=== PATIENT | male | born 1985 | race African-American/Black ===

== ENCOUNTER 2020-01-22 11:32 | Observation (INO) | payer MEDICAID, SELFPAY ==
[2020-01-22 11:33] VITALS: BP 135/84; PULSE 90; RESP 16; TEMP 36.3; O2SAT 98; BMI 26.4
--- NOTE | 2020-01-22 12:01 | ED.DCSUM_ITS ---
History of Present Illness Chief Complaint: Substance Abuse Informant: Patient Narrative: Patient is a 34-year-old male who presents to the emergency department to request to detox. He states that he uses heroin and Suboxone. The Suboxone is prescribed to him. He has been using since he has been 16 off and on. He is gone through withdrawal before in the past. Never been to a detox center. He states that he has been using regularly over the past year. He also smokes marijuana. Denies any other illicit drug use. Denies any alcohol use. Does smoke cigarettes. He is complaining of some generalized body aches and low back pain. Otherwise denies any chest pain, shortness of breath. No abdominal pain or nausea/vomiting/diarrhea. Patient states he did have an overdose this summer which is his reasoning for wanting to get clean at this time. He denies any recent illness including any cough, cold, congestion. No fever/chills. Past Medical History - Allergies and Home Meds Allergies/Adverse Reactions: Allergies No Known Allergies Allergy (Verified 03/04/13 23:05) Primary Care Physician: NOT,DEFINED [NON-STAFF] - Prior records reviewed: Yes Past Medical History: - - Polysubstance abuse Smoking Status: Current every day smoker Alcohol: None Drugs: Heroin, Marijuana - Family History Maternal Family History: Reports: - - Patient notes a maternal family history of COPD with concurrent history of tobacco use. Paternal Family History: Reports: - - Patient does not know any of his paternal family history and notes that his mother is a lesbian and utilized a sperm donor. Review of Systems All systems negative except as indicated General: Denies: Chills, Fever, Sweats Eyes: Denies: Visual changes - bilaterally, Diplopia ENT: Denies: Rhinorrhea, Sore throat Cardiovascular: Denies: Chest pain, Palpitations Respiratory: Denies: Dyspnea, Cough, Dyspnea on exertion Gastrointestinal: Denies: Abdominal pain, Nausea, Vomiting, Diarrhea Genitourinary: Denies: Dysuria, Hematuria, Frequency Musculoskeletal: Denies: Back pain, Extremity Pain Skin: Denies: Rash, Wounds Neurological: Denies: Headache, Weakness, Numbness Physical Exam Vital Signs/Narrative: Vital Signs Temp Pulse Resp BP Pulse Ox 01/22/20 11:33 97.4 F L 90 16 135/84 H 98 Inital Vital Signs reviewed: Yes General: Well nourished, Well developed, No Acute Distress Head: Normocephalic, Atraumatic Eyes: Perrl, EOMI ENT: Moist mucous membranes, No rhinorrhea Neck: Supple, Nontender Cardiovascular: Regular rate, Regular rhythm, No murmurs Respiratory: No distress, CTA bilaterally, Chest nontender Abdomen: Soft, Nontender, Nondistended, Normal bowel sounds Back: Nontender, Normal Inspection Extremities: Nontender, No edema Skin: Normal color, No rash Neurological: Alert, Oriented x3, Cranial nerves II-XII grossly intact, Normal Strength, Normal Sensation Psychological: Normal affect, Normal Mood Diagnostic/Tx/Re-eval - Medical Decision Making Patient presents to the ED for request to detox from heroin. On arrival to the ED vital signs within normal limits. Physical exam is benign. Will check basic lab work. Lab work did not reveal any significant acute abnormality. Will bring him into the hospital for further evaluation and management. Patient otherwise has been stable throughout ED stay. He understands and is agreeable this plan. ED Disposition - Plan for ED Patient: Disposition: Acute Care Hospital [facility] Diagnosis: Substance abuse Referrals: NOT,DEFINED [NON-STAFF] -
[2020-01-22 12:34] LABS: Absolute Lymphocyte Count 1.42 X10^3/uL (0.83-4.51); Absolute Neutrophil Count 3.3 X10^3/uL (2.0-7.7); Basophil# 0.03 X10^3/uL; Basophil% 0.5 % (0-1); Eosinophil# 0.28 X10^3/uL; Hematocrit 41.4 % (40-54); Hemoglobin 14.1 g/dL (13.0-16.5); Lymphocyte # 1.42 X10^3/ul (4.0); Lymphocyte % 25.6 % (19-41); Mean Corp Hgb Conc 34.1 g/dL (32-36); Mean Corpuscular Hgb 29.5 pg (27.0-32.0); Mean Corpuscular Volume 86.6 fL (80-94); Mean Platelet Vol. 8.5 fl (6.2-12.0); Monocyte# 0.53 X10^3/uL; Monocyte% 9.5 % (0-10); NRBC Flagged by Analyzer 0 % (0-5); Neutrophil # 3.28 X10^3/uL (2.7-7.7); Neutrophil % 59.2 % (47-70); Platelet Count 286 K/mm3 (150-450); RBC Distribution Width CV 12.2 % (11.6-14.6); Red Blood Count 4.78 M/mm3 (4.6-6.2); White Blood Count 5.6 K/mm3 (4.4-11.0)
[2020-01-22 12:50] LABS: AST(SGOT) 14 U/L (15-37); Alanine Aminotransfer ALT/SGPT 26 U/L (16-61); Albumin, Serum 3.5 g/dL (3.2-5.0); Alkaline Phosphatase 96 U/L (45-117); Anion Gap 2 (5-15); BUN 7 mg/dL (7-18); BUN/Creat Ratio 7.8 RATIO (10-20); Calcium,Total 8.8 mg/dL (8.5-10.1); Chloride 103 mmol/L (98-107); EST Glomerular Filtration Rate 102 mL/min (>60); Est Glom Filt Rate - Afr Amer 124 mL/min (>60); Estimated Creatinine Clearance 115.65 ml/min; Globulin 3.6 g/dL (2.2-4.2); Glucose 93 mg/dL (74-106); Potassium 3.8 mmol/L (3.5-5.1); Protein, Total 7.1 g/dL (6.4-8.2); Sodium Level 138 mmol/L (136-145)
[2020-01-22 13:02] LABS: Alcohol, Blood (Medical)-Serum < 3.0 mg/dL
--- NOTE | 2020-01-22 13:23 | PCM.HP.STD ---
Problem List (1) Opiate withdrawal Status: Acute (2) Heroin abuse Status: Chronic (3) Cannabis abuse Status: Chronic (4) Tobacco use Status: Chronic (5) IV drug user Status: Chronic History of Present Illness Date of Admission: 01/22/20 Chief Complaint: Heroin, cannabis, suboxone abuse, active withdrawal The patient is a 34 y/o M w/ PMHx: Tobacco use, Polysubstance abuse with Heroin (using since 16), Cannabis currently on Rx Suboxone noting usage of daily cannabis with last usage the day prior, smoked as well as Suboxone daily normally supposed to be on 60 mg daily however he has been weaning and currently only on 8 mg daily in addition to heroin intravenously injected with usually 1 g daily with last usage the day prior to proximally 9 AM who presents to the [facility] ED on 01/22/20 w/ noted opiate withdrawal onset starting 01/22/20 with abdominal pain/cramping, generalized body aches and pains, rhinorrhea, piloerection, fatigue, restless leg, sweating, yawning. Patient interested in attaining clean status. He notes that he lives with his girlfriend who has no substance abuse issues who encouraged him and help set this acute detox up. He notes that on Tuesday he will either be incarcerated or will need to go to substance abuse residential treatment following acute. Patient notes interest in being clean. Work-up in the ED included T 97.4, heart rate 90, BP 135/84, respiratory rate 16, 98% on room air, CBC with WBC 5.6, hemoglobin 14.1, platelet 226 with no market shift, CMP not marked appearing aside carbon oxide 33, AST 14, ethyl alcohol less than 3, urine drug screen pending per ED upon requested evaluation of patient. Past Medical History Past Medical History (Chronic Problems): Chronic Problems Heroin abuse (Chronic) Cannabis abuse (Chronic) Tobacco use (Chronic) IV drug user (Chronic) Allergies No Known Allergies Allergy (Verified 03/04/13 23:05) Home Medications: Ambulatory Orders Medication Instructions Recorded Abilify 01/22/20 Surgical History: - - Patient notes surgical intervention on his mandible secondary to fracture with his jaw wired shut. Psychiatric History: No pertinent psych hx - Patient denies any psychiatric history however in home medication previously Abilify as noted, awaiting clarification. Lives: Spouse/ Significant Other - Patient lives with his girlfriend and 2 children. He denies her having any substance abuse history or current usage. Smoking Status: Current every day smoker - Patient notes 1.5 to 2 pack/day cigarette tobacco use since he was 12 years old. Tobacco Use: Cigarettes Alcohol: None Drugs: Heroin - Approximately 1 g IV daily., Marijuana - Smoked cannabis daily., - - Prescribed Suboxone normally 60 mg daily however has decreased it to 8 mg daily in effort to withdraw self off regimen. - *Family History Maternal History Items: - - Patient notes a maternal family history of COPD with concurrent history of tobacco use. Paternal History Items: - - Patient does not know any of his paternal family history and notes that his mother is a lesbian and utilized a sperm donor. Review of Systems Constitutional: Reports: Anorexia, Chills, Malaise, Weakness, Fatigue. Denies: Fever, Weight Change HEENT: Reports: Post Nasal Drip. Denies: Head Aches, Sinus Drainage Cardiovascular: Denies: Chest Pain, Palpitations Respiratory: Denies: Cough, Shortness of breath at rest, Sputum production Gastrointestinal: Reports: Abdominal Pain, Diarrhea, Nausea. Denies: Vomiting Genitourinary: Denies: Dysuria Musculoskeletal: Reports: Back Pain, Joint Pain, Muscle pain. Denies: Joint Tenderness Skin: Reports: Skin Changes. Denies: Rash, Wounds Neurological: Denies: Numbness, Tingling, Focal weakness Psychiatric: Denies: Anxiety, Depression, Homicidal Ideations, Suicidal Ideations Hematologic/ Lymphatic: Denies: Easy Bruising, Easy Bleeding VTE Information - Inpt Only VTE Present on Admission: No VTE Mechan Device Prophylaxis: None VTE Pharm Prophylaxis ordered?: No Reason prophylaxis not ordered:: Treatment Not Indicated Patient Problems: Active and Suspected Problems Substance abuse (Acute) Opiate withdrawal (Acute) Subjective: Patient seated upright in the ED bed, mildly agitated, restless, noted rhinorrhea evident. Objective: Physical Examination: General: awake, alert, oriented x 3 and cooperative, seated upright in the ED bed, mildly agitated, restless, evident rhinorrhea. Skin: normal color, turgor, no icterus, cyanosis. HEENT: AT/NC, EOMI, PERRLA, MMM, rhinorrhea evident, no carotid bruits or JVD noted. Lungs: CTA bilaterally, moderate effort, moderate decrease BL bases, no rales, ronchi or wheezing. Heart: Mildly tachycardic with regular rhythm; no gallop, rub audible. Abdomen: soft, mild generalized discomfort with palpation, ND, hyperactive BS, positive mild HM. Extremities: no cyanosis, clubbing, or edema. Neurological: patient awake, alert, oriented x 3; cognitive function intact; pupils equally reactive to light and accomodation; cranial nerves II-XII grossly normal, moving all 4 extremities, no focal deficits, strength mildly to moderately global decrease secondary to acute presentation, restless, agitated. Psychiatric: affect appears agitated, restless, no acute evidence of depressive or anxiety feelings. - Physical Exam Vitals/I&O's: Vital Signs Temp Pulse Resp BP Pulse Ox 97.4 F L 90 16 135/84 H 98 01/22/20 11:33 01/22/20 11:33 01/22/20 11:33 01/22/20 11:33 01/22/20 11:33 Oxygen Delivery Method Room Air Weight: 179 lb 3.773 oz Body Mass Index (BMI) 26.4 Laboratory Results 01/22/20 12:19: WBC 5.6, RBC 4.78, Hgb 14.1, Hct 41.4, MCV 86.6, MCH 29.5, MCHC 34.1, RDW Std Deviation 39.0, RDW Coeff of Corinne 12.2, Plt Count 286, MPV 8.5, Immature Gran % (Auto) 0.200, Neut % (Auto) 59.2, Lymph % (Auto) 25.6, Hampton % (Auto) 9.5, Eos % (Auto) 5.0, Baso % (Auto) 0.5, Absolute Neuts (auto) 3.3, Absolute Lymphs (auto) 1.42, Nucleated RBC % 0 01/22/20 12:19: Sodium 138, Potassium 3.8, Chloride 103, Carbon Dioxide 33.0 H, Anion Gap 2 L, BUN 7, Creatinine 0.90, Estim Creat Clear Calc 115.65, Est GFR (MDRD) Af Amer 124, Est GFR (MDRD) Non-Af 102, BUN/Creatinine Ratio 7.8 L, Glucose 93, Calcium 8.8, Total Bilirubin 0.40, AST 14 L, ALT 26, Alkaline Phosphatase 96, Total Protein 7.1, Albumin 3.5, Globulin 3.6, Albumin/Globulin Ratio 1.0 01/22/20 12:19: Ethyl Alcohol < 3.0 Assessment/Plan All Active Problems Substance abuse (Acute) Opiate withdrawal (Acute) The patient is a 34 y/o M w/ PMHx: Tobacco use, Polysubstance abuse who presents to the [facility] ED on 01/22/20 w/ noted opiate withdrawal onset. 1. Acute Opiate Withdrawal: Will admit to [facility], routine labs including CBC, CMP obtained in the ED, UDS pending, will initiate and continue on tapering course of Subutex, as needed Librium, Sinemet, Catapres, Bentyl, Vistaril, IV fluids, IV antiemetics, Tylenol as needed for pain. Will consult case management for assistance substance abuse specifically with transition to next level of rehabilitation care. 2. Polysubstance Abuse, IVDA: Given patient ongoing IV drug abuse amenable to testing HIV and hepatitis panel. Discussed with patient that if he has positive with hepatitis C he would require to be clean, sober x 6 months, documented attendance NA or AA meetings, counseling and ongoing negative drug screens including cannabis be Encouraged PCP establishment and follow-up. 3. Tobacco Abuse: Encouraged cessation, inpatient consultation per RT, NR if desired. 4. DVT prophylaxis: Low risk, encourage ambulation. Inpatient E&M: 53605 Init Hosp L3
--- NOTE | 2020-01-22 13:29 | NURSING ---
DR BURKETT FOR DR BROWN
--- NOTE | 2020-01-22 13:56 | CM.ED ---
SOCIAL WORK Reason for Consult: Substance Abuse, requesting detox from opiates Patient being admitted to [facility]. Jeter at [facility] updated on admission. Melany Henry, RADIO FREQUENCY DESIGN ENGINEER, PSYCHOLOGICAL STRESS EVALUATOR
--- NOTE | 2020-01-22 14:30 | NURSING ---
MED SURG WHITE DETOX, OPIATE WITHDRAWAL
[2020-01-22 15:55] VITALS: BP 122/79; PULSE 66; RESP 18; TEMP 36.7; O2SAT 99
[2020-01-22 16:02] VITALS: BMI 25.9
[2020-01-22 16:08] VITALS: BMI 26.0
[2020-01-22 17:04] LABS: HIV - WCH Non-Reactive (Nonreactive)
[2020-01-22] MEDS: Lactated Ringers 1,000 ML 125 ML IV (17:37)
[2020-01-22 18:00] VITALS: BP 114/72; PULSE 75; RESP 16; TEMP 36.6; O2SAT 96
[2020-01-22 22:00] VITALS: BP 110/67; PULSE 68; RESP 18; TEMP 36.7; O2SAT 97
[2020-01-22 22:02] LABS: Amphetamine Urine VISTA POSITIVE (<1000 ng/mL); Barbiturate Urine VISTA NEGATIVE (< 200 ng/mL); Benzodiazepine Urine VISTA NEGATIVE (< 200 ng/mL); Cocaine Urine VISTA NEGATIVE (< 300 ng/mL); Ecstacy Urine VISTA NEGATIVE (< 500 ng/mL); Methadone Urine VISTA NEGATIVE (< 300 ng/mL); PCP Urine VISTA NEGATIVE (< 25 ng/mL); THC Urine VISTA POSITIVE (< 50 ng/mL); Vista UDS pH Range 7
[2020-01-23] VITALS (8 sets, daily range): BP systolic 114–141; BP diastolic 62–90; PULSE 65–82; RESP 16–18; TEMP 36.7–37.5; O2SAT 95–99
[2020-01-23] MEDS: Buprenorphine HCl 2 MG TAB.SUBL SL ×4 (00:49→22:54)
[2020-01-23] MEDS: cloNIDine HCl 0.1 MG Tablet PO (05:00)
[2020-01-23] MEDS: Mag Hydrox/Al Hydrox/Simeth 30 ML UDC PO (05:00)
[2020-01-23] MEDS: Methocarbamol 750 MG Tablet 1500 MG PO (05:06)
[2020-01-23] MEDS: 0.9% Saline Lock 10 ML Syringe IV (08:58)
--- NOTE | 2020-01-23 12:41 | PN_ITS ---
Patient Problems: Active and Suspected Problems Substance abuse (Acute) Opiate withdrawal (Acute) Subjective: Pt states that he is having intermittent sweats and chills but is otherwise feeling okay. - Physical Exam Vitals/I&O's: Vital Signs Temp Pulse Resp BP Pulse Ox 99.5 F H 65 18 114/76 97 01/23/20 09:00 01/23/20 09:00 01/23/20 09:00 01/23/20 09:00 01/23/20 09:00 Oxygen Delivery Method Room Air Weight: 79.8 kg Body Mass Index (BMI) 25.9 Intake and Output for Last 24 Hours 01/21/20 01/22/20 01/23/20 23:59 23:59 23:59 Intake Total 240 / 240 2390 / 2390 Balance 240 / 240 2390 / 2390 General: Alert, Oriented x3, Cooperative, No apparent distress, Well developed, Well nourished HEENT: Atraumatic, Normocephalic Oral: Moist Mucosa, No Gingival or Mucosal Lesions/ Ulcerations Lungs: Clear to auscultation, Normal air movement, No rhonchi, No wheeze, No rales Cardiovascular: Regular rate, Regular Rhythm, Normal S1, Normal S2, No murmurs, No Ectopic Activity, No rub noted, No Gallop Abdomen: Bowel Sounds Present, Soft, Non Tender, Non-Distended, No Hepato- splenomegaly Extremities: No clubbing, No cyanosis, No edema, Capillary Refill Less than 3 Seconds, Peripheral Pulses Normal Neurological: Cranial nerves II-XII grossly intact, Neuro grossly intact Psych/Mental Status: Normal Affect, Appropriate, Alert and oriented to time, place, person, mood and affect Laboratory Results 01/22/20 12:19: Sodium 138, Potassium 3.8, Chloride 103, Carbon Dioxide 33.0 H, Anion Gap 2 L, BUN 7, Creatinine 0.90, Estim Creat Clear Calc 115.65, Est GFR (MDRD) Af Amer 124, Est GFR (MDRD) Non-Af 102, BUN/Creatinine Ratio 7.8 L, Glucose 93, Calcium 8.8, Total Bilirubin 0.40, AST 14 L, ALT 26, Alkaline Phosphatase 96, Total Protein 7.1, Albumin 3.5, Globulin 3.6, Albumin/Globulin Ratio 1.0 01/22/20 12:19: Ethyl Alcohol < 3.0 01/22/20 12:19: Hepatitis A IgM Ab Pending, Hepatitis A Ab Total Pending, Hep Bs Antigen Pending, Hep B Core Total Ab Pending, Hep B Core IgM Ab Pending 01/22/20 12:19: HIV 1&2 Antibody Non-Reactive 01/22/20 21:30: Urine Opiates Screen POSITIVE H, Urine Methadone Screen NEGATIVE, Ur Barbiturates Screen NEGATIVE, Ur Phencyclidine Scrn NEGATIVE, Ur Amphetamines Screen POSITIVE H, U Methamphetamin-MDMA NEGATIVE, U Benzodiazepines Scrn NEGATIVE, Urine Cocaine Screen NEGATIVE, U Cannabinoids Screen POSITIVE H, Ur Drug Screen Comment Current Medications Acetaminophen (Tylenol) 500 mg PO Q4H PRN PRN PRN Reason: Temp > 100.4 F Al Hydroxide/Mg Hydroxide (Mylanta Ii) 30 ml PO Q6H PRN PRN PRN Reason: dyspesia Last Admin: 01/23/20 05:00 Dose: 30 ml Documented by: Albuterol Sulfate (Ventolin Aerosols) 2.5 mg INHALATION Q2H PRN PRN PRN Reason: Dyspnea, wheezing Bisacodyl (Dulcolax) 10 mg RECTAL DAILY PRN PRN Reason: Constipation Buprenorphine HCl (Buprenorphine Hcl) 4 mg SL Q8H ETHEL; Taper Stop: 01/25/20 23:44 Last Admin: 01/23/20 07:35 Dose: 4 mg Documented by: Clonidine (Catapres) 0.1 mg PO Q8H PRN PRN PRN Reason: RESTLESSNESS Last Admin: 01/23/20 05:00 Dose: 0.1 mg Documented by: Dicyclomine HCl (Bentyl) 20 mg PO Q6H PRN PRN PRN Reason: Abdominal Discomfort Gabapentin (Neurontin) 300 mg PO Q8H PRN PRN PRN Reason: moderate to severe anxiety Hydroxyzine Pamoate (Vistaril Pamoate Capsule) 50 mg PO Q6H PRN PRN PRN Reason: mild anxiety Ibuprofen (Motrin) 600 mg PO Q8H PRN PRN PRN Reason: Pain Score 1-10/10 Loperamide HCl (Imodium) 2 mg PO Q4H PRN PRN PRN Reason: LOOSE STOOLS Methocarbamol (Methocarbamol) 1,500 mg PO Q6H PRN PRN PRN Reason: MUSCLE SPASM Last Admin: 01/23/20 05:06 Dose: 1,500 mg Documented by: Nicotine (Nicoderm Cq (Pbkc)) 21 mg TRANSDERM. DAILY ETHEL Last Admin: 01/23/20 08:59 Dose: 21 mg Documented by: Ondansetron HCl (Zofran) 8 mg PO Q8H PRN PRN PRN Reason: NAUSEA Senna (Senokot) 2 tablet PO QHS PRN PRN Reason: Constipation Sodium Chloride () 10 - 40 ml IV UD PRN PRN Reason: SALINE FLUSH Last Admin: 01/23/20 08:58 Dose: 10 ml Documented by: Trazodone HCl (Desyrel) 100 mg PO QHS PRN PRN PRN Reason: INSOMNIA Medical Necessity - Tobacco Use Smoking Status: Current every day smoker Tobacco Use: Cigarettes Assessment/Plan All Active Problems Substance abuse (Acute) Opiate withdrawal (Acute) Acute Opiate Withdrawal -appears stable -on suboxone taper -continue PRN supportive meds -180 following H/O Polysubstance Abuse -THC/Opiates/Meth -HIV is neg -Hepatitis studies are pending -LFT are WNL Tobacco Abuse -recommend cessation -Patch if desires DVT prophylaxis -Low risk -ambulation protocol Code status -Full Inpatient E&M: 45845 Subs Hosp L2
--- NOTE | 2020-01-23 13:13 | ADDICTION ---
This lyric writer met with patient in his room to conduct ASAM, MSE and DUDIT assessments and d/c planning. Patient was alert and oriented x4 and participated actively. Patient plans to engage with [facility], per his contracts officer and continuous improvement consultant, upon completion of medical withdrawal management. He reports that he has engaged with [facility] and is awaiting official approval from his continuous improvement consultant to enter into their residential program. He appears appropriate for the 4.0 LOC AEB Dimension1: Severe
--- NOTE | 2020-01-23 15:16 | CHAPLAIN ---
Type of Pastoral Visit _x__ Initial Visit ___ Follow-up Visit ___ On-call Visit ___ General Patient Visit ___ Spiritual Assessment ___ Family Conference ___ Bereavement ___ Rapid Response ___ Code Blue ___ Other (describe below) Pastoral Care Referral From _x__ Patient ___ Family ___ Nurse ___ Physician ___ Disaster Recovery Manager ___ Prospecting Driller ___ Other (describe below) Sacrament/Intervention _x__ Active listening ___ Anointing ___ Pentecostal ___ Bereavement ___ Communion _x__ Savi exploration ___ _x__ Life review _x__ Prayer ___ Reconciliation ___ Sacrament of Sick _x__ Supportive presence ___ Wedding ___ Other (describe below) Pastoral Comments patient is alert and sitting in chair watching TV; pt is very talkative and open to discuss his life interests, his history, and his hopes for recovery; pt has limited support but lists his SO and a grandmother; pt has recently connected with mosque members and diesel truck driver who are helping him get into inpatient facility [facility]; pt [facility] other [facility]; pt states he is willing to go through treatment program but has some anxiety about the rules and isolation there; pt admits that he has potential for better life and encouragement given by this director day care center; pt is open to spiritual care and prayer; pt is open to future visits
[2020-01-23] MEDS: hydrOXYzine PAM 25 MG Capsule 50 MG PO (18:05)
[2020-01-24 05:57] VITALS: BP 126/87; PULSE 66; RESP 16; TEMP 37; O2SAT 96
[2020-01-24 06:08] LABS: HEPATITIS B SURFACE AG Negative (Negative); Hepatitis A AB, Total Negative (Negative); Hepatitis A IgM Antibody Negative (Negative); Hepatitis B Core AB IgM Negative (Negative); Hepatitis B Core Ab Total Negative (Negative); Hepatitis C Ab <0.1 s/co ratio (0.0-0.9)
[2020-01-24 07:38] VITALS: BP 121/86; PULSE 71; RESP 14; TEMP 37.3; O2SAT 98
[2020-01-24] MEDS: Buprenorphine HCl 2 MG TAB.SUBL SL ×2 (07:41→15:30)
[2020-01-24 08:25] LABS: Hep B Surface Antibodies Reactive (.)
[2020-01-24 11:46] VITALS: BP 136/85; PULSE 85; RESP 16; TEMP 36.9; O2SAT 99
[2020-01-24] MEDS: cloNIDine HCl 0.1 MG Tablet PO (11:49)
--- NOTE | 2020-01-24 12:11 | PN_ITS ---
Patient Problems: Active and Suspected Problems Substance abuse (Acute) Opiate withdrawal (Acute) Subjective: Feeling better. Still occasional chills. No pain. More talkative today. Vitals/I&O's: Vital Signs Temp Pulse Resp BP Pulse Ox 98.5 F 85 16 136/85 H 99 01/24/20 11:46 01/24/20 11:46 01/24/20 11:46 01/24/20 11:46 01/24/20 11:46 Oxygen Delivery Method Room Air Weight: 79.8 kg Body Mass Index (BMI) 25.9 Intake and Output for Last 24 Hours 01/22/20 01/23/20 01/24/20 23:59 23:59 23:59 Intake Total 240 / 240 3450 / 3450 800 / 800 Balance 240 / 240 3450 / 3450 800 / 800 General: Alert, Oriented x3, Cooperative, No apparent distress, Well developed, Well nourished, - - AAM sitting up in a chair watching TV Lungs: Clear to auscultation, Normal air movement, No rhonchi, No wheeze, No rales Cardiovascular: Regular rate, Regular Rhythm, Normal S1, Normal S2, No murmurs, No Ectopic Activity, No rub noted, No Gallop Abdomen: Bowel Sounds Present, Soft, Non Tender, Non-Distended Extremities: No clubbing, No cyanosis, No edema, Capillary Refill Less than 3 Seconds, Peripheral Pulses Normal Psych/Mental Status: Normal Affect, Appropriate, Alert and oriented to time, place, person, mood and affect Laboratory Results 01/22/20 12:19: Hepatitis A IgM Ab Negative, Hepatitis A Ab Total Negative, Hep Bs Antigen Negative, Hep B Core Total Ab Negative, Hep B Core IgM Ab Negative, Hepatitis C Ab Confirm <0.1, Hep C Confirm Com 1 Comment Current Medications Acetaminophen (Tylenol) 500 mg PO Q4H PRN PRN PRN Reason: Temp > 100.4 F Al Hydroxide/Mg Hydroxide (Mylanta Ii) 30 ml PO Q6H PRN PRN PRN Reason: dyspesia Last Admin: 01/23/20 05:00 Dose: 30 ml Documented by: Albuterol Sulfate (Ventolin Aerosols) 2.5 mg INHALATION Q2H PRN PRN PRN Reason: Dyspnea, wheezing Bisacodyl (Dulcolax) 10 mg RECTAL DAILY PRN PRN Reason: Constipation Buprenorphine HCl (Buprenorphine Hcl) 2 mg SL Q8H ETHEL; Taper Stop: 01/25/20 23:44 Last Admin: 01/24/20 07:41 Dose: 2 mg Documented by: Clonidine (Catapres) 0.1 mg PO Q8H PRN PRN PRN Reason: RESTLESSNESS Last Admin: 01/24/20 11:49 Dose: 0.1 mg Documented by: Dicyclomine HCl (Bentyl) 20 mg PO Q6H PRN PRN PRN Reason: Abdominal Discomfort Gabapentin (Neurontin) 300 mg PO Q8H PRN PRN PRN Reason: moderate to severe anxiety Hydroxyzine Pamoate (Vistaril Pamoate Capsule) 50 mg PO Q6H PRN PRN PRN Reason: mild anxiety Last Admin: 01/23/20 18:05 Dose: 50 mg Documented by: Ibuprofen (Motrin) 600 mg PO Q8H PRN PRN PRN Reason: Pain Score 1-10/10 Loperamide HCl (Imodium) 2 mg PO Q4H PRN PRN PRN Reason: LOOSE STOOLS Methocarbamol (Methocarbamol) 1,500 mg PO Q6H PRN PRN PRN Reason: MUSCLE SPASM Last Admin: 01/23/20 05:06 Dose: 1,500 mg Documented by: Nicotine (Nicoderm Cq (Pbkc)) 21 mg TRANSDERM. DAILY ETHEL Last Admin: 01/24/20 11:49 Dose: 21 mg Documented by: Ondansetron HCl (Zofran) 8 mg PO Q8H PRN PRN PRN Reason: NAUSEA Senna (Senokot) 2 tablet PO QHS PRN PRN Reason: Constipation Sodium Chloride () 10 - 40 ml IV UD PRN PRN Reason: SALINE FLUSH Last Admin: 01/23/20 08:58 Dose: 10 ml Documented by: Trazodone HCl (Desyrel) 100 mg PO QHS PRN PRN PRN Reason: INSOMNIA STROKE Vital Signs/Narrative: Vital Signs Temp Pulse Resp BP Pulse Ox 01/24/20 11:46 98.5 F 85 16 136/85 H 99 Medical Necessity - Tobacco Use Smoking Status: Current every day smoker Tobacco Use: Cigarettes Assessment/Plan All Active Problems Substance abuse (Acute) Opiate withdrawal (Acute) Acute Opiate Withdrawal -appears stable -on suboxone taper-> completes tomorrow -continue PRN supportive meds -plan is to f/u with courts and try to get into [facility] if the nuclear spectroscopist on Tuesday approves H/O Polysubstance Abuse -THC/Opiates/Meth -HIV is neg -Hepatitis studies are all neg -would recommend Hep B vaccination Tobacco Abuse -recommend cessation -Patch available DVT prophylaxis -Low risk -ambulation protocol Code status -Full Dispo -D/C tomorrow Inpatient E&M: 04006 Subs Hosp L2
--- NOTE | 2020-01-24 14:44 | CHAPLAIN ---
Type of Pastoral Visit ___ Initial Visit _x__ Follow-up Visit ___ On-call Visit ___ General Patient Visit ___ Spiritual Assessment ___ Family Conference ___ Bereavement ___ Rapid Response ___ Code Blue ___ Other (describe below) Pastoral Care Referral From _x__ Patient ___ Family ___ Nurse ___ Physician ___ Acoustical Engineer ___ Forestry Engineer ___ Other (describe below) Sacrament/Intervention _x__ Active listening ___ Anointing ___ Yarsanism ___ Bereavement ___ Communion _x__ Savi exploration ___ _x__ Life review _x__ Prayer ___ Reconciliation ___ Sacrament of Sick _x__ Supportive presence ___ Wedding ___ Other (describe below) Pastoral Comments patient states I'm glad you came back. I was wondering if you would to this marketing information coordinator; pt is talkative and states that he needs something to occupy his mind/time; pt gives some life review; discussion also about future plans and dreams; pt states he is excited to be going home and hopefully approved for [facility] by full stack python developer for next week; pt welcomes prayer and follow up support
[2020-01-24 15:28] VITALS: BP 133/91; PULSE 82; RESP 18; TEMP 37.2; O2SAT 99
[2020-01-24 20:51] VITALS: BP 117/69; PULSE 70; RESP 16; TEMP 37.1; O2SAT 96
[2020-01-24] MEDS: traZODone 100 MG Tablet PO (22:15)
[2020-01-25 00:09] VITALS: BP 122/64; PULSE 96; RESP 10; TEMP 37.1; O2SAT 96
[2020-01-25] MEDS: Buprenorphine HCl 2 MG TAB.SUBL SL ×2 (00:13→10:44)
[2020-01-25] MEDS: Ondansetron 8 MG Tablet PO (03:05)
[2020-01-25 06:03] VITALS: BP 117/61; PULSE 80; RESP 12; TEMP 36.9; O2SAT 96
--- NOTE | 2020-01-25 07:59 | DCINST_ITS ---
- Discharge Diagnoses Current Active Problems: Current Active and Chronic Problems Substance abuse (Acute) Opiate withdrawal (Acute) Heroin abuse (Chronic) Cannabis abuse (Chronic) Tobacco use (Chronic) IV drug user (Chronic) You will use the following diet at home:: No restrictions Your food should be the consistency of: Regular Your liquids should be the consistency of: Regular/Thin Discharge Activity: Return to Normal Activity, No Restrictions Additional Instructions: would recommend that the Hepatitis B vaccine be obtained Allergies/Adverse Reactions: Allergies No Known Allergies Allergy (Verified 03/04/13 23:05) Medications to take at Discharge Abilify 10 mg PO QHS 01/22/20 Primary Care Physician: NOT,DEFINED [NON-STAFF] - Please follow up with your Primary Care Physician in: f/u as needed Test Results: Test results from this visit will be discussed in further detail at your follow- up appointment, if applicable. Proposed Discharge Date: 01/25/20
--- NOTE | 2020-01-25 08:00 | DS.PCM_ITS ---
Discharge Date and Diagnosis - Problem List Patient Problems: Active and Suspected Problems Substance abuse (Acute) Opiate withdrawal (Acute) Date of Admission: 01/22/20 Date of Discharge: 01/25/20 - Primary Discharge Diagnosis Acute Problems: Active Problems Substance abuse (Acute) Opiate withdrawal (Acute) - Secondary Discharge Diagnosis Chronic Problems: Chronic Problems Heroin abuse (Chronic) Cannabis abuse (Chronic) Tobacco use (Chronic) IV drug user (Chronic) Hospital Course and Treatment Imaging Results: NONE ADM Operations: None Procedures: None Summary of Care Provided: Mr. Forbes is a 34 y/o M w/ PMHx: Tobacco use, Polysubstance abuse with Heroin (using since 16), and Cannabis use. He is using heroin intravenously with usually 1 g daily with last usage the day prior to proximally 9 AM. He presented to the ED on with noted opiate withdrawal onset starting 01/22/20 with symptoms including abdominal pain/cramping, generalized body aches and pains, rhinorrhea, piloerection, fatigue, restless leg, sweating, yawning. He expressed interested in attaining clean status. He noted that he lives with his girlfriend who has no substance abuse issues who had encouraged him and helped set this acute detox up. He noted that on Saturday 01/27 he will either be incarcerated or will need to go to substance abuse residential treatment following acute detox and has a court appearance pending on that day to decide how things will proceed. He was admitted and placed on a Suboxone taper with suppportive care an medications for sx of withdrawal. He did very well. HIV and Hepatitis status was assessed and he was neg for all of the above. I did recommend that he be seen for the Hepatitis B vaccine series and he voiced understanding. He will be discharged and pursue further treatment in accordance with the recommendations of the court. Patient Problems: Active and Suspected Problems Substance abuse (Acute) Opiate withdrawal (Acute) - Physical Exam Vitals/I&O's: Vital Signs Temp Pulse Resp BP Pulse Ox 98.4 F 80 12 117/61 96 01/25/20 06:03 01/25/20 06:03 01/25/20 06:03 01/25/20 06:03 01/25/20 06:03 Oxygen Delivery Method Room Air Weight: 79.8 kg Body Mass Index (BMI) 25.9 Intake and Output for Last 24 Hours 01/23/20 01/24/20 01/25/20 23:59 23:59 23:59 Intake Total 3450 / 3450 830 / 830 0 / 0 Output Total 0 / 0 Balance 3450 / 3450 830 / 830 0 / 0 General: Alert, Oriented x3, Cooperative, No apparent distress, Well developed, Well nourished Oral: Moist Mucosa, No Gingival or Mucosal Lesions/ Ulcerations Lungs: Clear to auscultation, Normal air movement, No rhonchi, No wheeze, No rales Cardiovascular: Regular rate, Regular Rhythm, Normal S1, Normal S2, No murmurs, No Ectopic Activity Abdomen: Bowel Sounds Present, Soft, Non Tender, Non-Distended Extremities: No clubbing, No cyanosis, No edema, Capillary Refill Less than 3 Seconds, Peripheral Pulses Normal Neurological: Cranial nerves II-XII grossly intact, Neuro grossly intact Psych/Mental Status: Normal Affect, Appropriate, - - very pleasant and cooperative, Alert and oriented to time, place, person, mood and affect Laboratory Results 01/22/20 12:19: Hepatitis A IgM Ab Negative, Hepatitis A Ab Total Negative, Hep Bs Antigen Negative, Hep B Core Total Ab Negative, Hep B Core IgM Ab Negative, Hepatitis C Ab Confirm <0.1, Hep C Confirm Com 1 Comment Current Medications Acetaminophen (Tylenol) 500 mg PO Q4H PRN PRN PRN Reason: Temp > 100.4 F Al Hydroxide/Mg Hydroxide (Mylanta Ii) 30 ml PO Q6H PRN PRN PRN Reason: dyspesia Last Admin: 01/23/20 05:00 Dose: 30 ml Documented by: Albuterol Sulfate (Ventolin Aerosols) 2.5 mg INHALATION Q2H PRN PRN PRN Reason: Dyspnea, wheezing Bisacodyl (Dulcolax) 10 mg RECTAL DAILY PRN PRN Reason: Constipation Buprenorphine HCl (Buprenorphine Hcl) 2 mg SL Q12H [facility]; Taper Stop: 01/25/20 23:44 Last Admin: 01/25/20 00:13 Dose: 2 mg Documented by: Clonidine (Catapres) 0.1 mg PO Q8H PRN PRN PRN Reason: RESTLESSNESS Last Admin: 01/24/20 11:49 Dose: 0.1 mg Documented by: Dicyclomine HCl (Bentyl) 20 mg PO Q6H PRN PRN PRN Reason: Abdominal Discomfort Gabapentin (Neurontin) 300 mg PO Q8H PRN PRN PRN Reason: moderate to severe anxiety Hydroxyzine Pamoate (Vistaril Pamoate Capsule) 50 mg PO Q6H PRN PRN PRN Reason: mild anxiety Last Admin: 01/23/20 18:05 Dose: 50 mg Documented by: Ibuprofen (Motrin) 600 mg PO Q8H PRN PRN PRN Reason: Pain Score 1-10/10 Loperamide HCl (Imodium) 2 mg PO Q4H PRN PRN PRN Reason: LOOSE STOOLS Methocarbamol (Methocarbamol) 1,500 mg PO Q6H PRN PRN PRN Reason: MUSCLE SPASM Last Admin: 01/23/20 05:06 Dose: 1,500 mg Documented by: Nicotine (Nicoderm Cq (Pbkc)) 21 mg TRANSDERM. DAILY ETHEL Last Admin: 01/24/20 11:49 Dose: 21 mg Documented by: Ondansetron HCl (Zofran) 8 mg PO Q8H PRN PRN PRN Reason: NAUSEA Last Admin: 01/25/20 03:05 Dose: 8 mg Documented by: Senna (Senokot) 2 tablet PO QHS PRN PRN Reason: Constipation Sodium Chloride () 10 - 40 ml IV UD PRN PRN Reason: SALINE FLUSH Last Admin: 01/23/20 08:58 Dose: 10 ml Documented by: Trazodone HCl (Desyrel) 100 mg PO QHS PRN PRN PRN Reason: INSOMNIA Last Admin: 01/24/20 22:15 Dose: 100 mg Documented by: Discharge Activity: Return to Normal Activity, No Restrictions Home Medications: Medications to take at Discharge Abilify 10 mg PO QHS 01/22/20 Primary Care Physician: NOT,DEFINED [NON-STAFF] - Please follow up with your Primary Care Physician in: f/u as needed Medical Necessity - Tobacco Use Smoking Status: Current every day smoker Tobacco Use: Cigarettes Meaningful Use Info Meaningful Use Diagnoses (Choose all that apply): None applicable
[2020-01-25 09:21] VITALS: BP 118/69; PULSE 113; RESP 18; TEMP 36.8; O2SAT 98
--- NOTE | 2020-01-25 10:06 | PHA.DC.MR ---
Pharmacy Service has performed discharge medication reconciliation for this patient. The patient's discharge medication list was reviewed for discrepancies and discrepancies were resolved. Home Medications Abilify 10 mg PO QHS 01/22/20
== END 2020-01-25 10:49 | disposition home or self-care (01) ==
LOC: ED 13:41 → PCU 01-23 06:47
PROVIDERS: Admitting Provider Family Medicine; Emergency Provider Emergency Medicine; Visit Provider Internal Medicine
DX: F11.23 Opioid dependence with withdrawal (principal); F17.210 Nicotine dependence, cigarettes, uncomplicated; F12.10 Cannabis abuse, uncomplicated; F15.10 Other stimulant abuse, uncomplicated
CPT/HCPCS: 80053; 80307; 80320; 85025; 86703; 86704; 86705; 86706; 86708; 86709; 86803; 87340; 99281; H0012; J7120; A4216; G0480

== ENCOUNTER 2022-04-21 17:02 | Inpatient (IN) | payer MEDICAID, SELFPAY ==
[2022-04-21 17:04] VITALS: BP 142/98; PULSE 108; RESP 18; TEMP 36.1; O2SAT 96; BMI 28.0
[2022-04-21 17:58] LABS: Absolute Lymphocyte Count 1.49 X10^3/uL (0.83-4.51); Absolute Neutrophil Count 4.4 X10^3/uL (2.0-7.7); Basophil# 0.03 X10^3/uL; Basophil% 0.4 % (0-1); Eosinophil# 0.27 X10^3/uL; Hematocrit 42.6 % (40-54); Hemoglobin 13.8 g/dL (13.0-16.5); Lymphocyte # 1.49 X10^3/ul (0.83-4.51); Lymphocyte % 22.2 % (19-41); Mean Corp Hgb Conc 32.4 g/dL (32-36); Mean Corpuscular Hgb 27.9 pg (27.0-32.0); Mean Corpuscular Volume 86.2 fL (80-94); Mean Platelet Vol. 8.6 fl (6.2-12.0); Monocyte# 0.54 X10^3/uL; NRBC Flagged by Analyzer 0 % (0-5); Neutrophil # 4.38 X10^3/uL (2.7-7.7); Neutrophil % 65.3 % (47-70); Platelet Count 285 K/mm3 (150-450); RBC Distribution Width CV 13.4 % (11.6-14.6); Red Blood Count 4.94 M/mm3 (4.6-6.2); White Blood Count 6.7 K/mm3 (4.4-11.0)
[2022-04-21 18:09] LABS: Anion Gap 6 (5-15); BUN 10 mg/dL (7-18); BUN/Creat Ratio 11.1 RATIO (10-20); Calcium,Total 9.2 mg/dL (8.5-10.1); Chloride 103 mmol/L (98-107); EST Glomerular Filtration Rate 101 mL/min (>60); Est Glom Filt Rate - Afr Amer 122 mL/min (>60); Estimated Creatinine Clearance 113.47 ml/min; Glucose 134 mg/dL (74-106); Potassium 3.9 mmol/L (3.5-5.1); Sodium Level 139 mmol/L (136-145)
[2022-04-21 18:11] LABS: Amphetamine Urine VISTA POSITIVE (<1000 ng/mL); Barbiturate Urine VISTA NEGATIVE (< 200 ng/mL); Benzodiazepine Urine VISTA NEGATIVE (< 200 ng/mL); Cocaine Urine VISTA NEGATIVE (< 300 ng/mL); Ecstacy Urine VISTA POSITIVE (< 500 ng/mL); Methadone Urine VISTA NEGATIVE (< 300 ng/mL); PCP Urine VISTA NEGATIVE (< 25 ng/mL); THC Urine VISTA POSITIVE (< 50 ng/mL); Vista UDS pH Range 5
--- NOTE | 2022-04-21 18:23 | EX.ED.DYSGE1 ---
HPI History of Present Illness Chief Complaint: Substance Abuse Informant: patient Narrative Narrative: 36-year-old male presenting to the emergency department requesting detox from opiates. Patient states that he had been clean after being released from senior care but in May started using again. He notes that he is an IV drug user of fentanyl/heroin. He states that he has no pending legal issues. He states that he is just tired of living this life and wants to get cleaned. He started using because of the stressors of coming home from senior care and life was overwhelming. He states that he is working and does not know how he still has his job. He reports that he was once on Suboxone but stopped it. He is interested in the Vivitrol shot [facility] Medical History Drug abuse Home Medications venlafaxine 75 mg capsule,extended release 24 hr 150 mg PO DAILY 04/21/22 [History Last Taken Unknown] Allergy/AdvReac Type Severity Reaction Status Date / Time No Known Allergies Allergy Verified 04/21/22 17:04 Social History (Updated 04/21/22 @ 18:[address] Werner Banks DO) Smoking Status: Current every day smoker tobacco type: cigarettes substance use type: opiates ROS ROS ED Constitutional Constitutional ED: Denies chills or weight loss Eyes Eyes: Denies change in vision or diplopia ENT ENT ED: Denies ear pain, rhinorrhea or sore throat Cardiovascular Cardiovascular: Denies chest pain, orthopnea, palpitations or racing heartbeat Respiratory/Chest Respiratory/Chest: Denies cough, dyspnea or orthopnea Gastrointestinal Gastrointestinal: Denies abdominal pain, diarrhea, nausea or vomiting Genitourinary Genitourinary ED: Denies dysuria, hematuria or urinary frequency Musculoskeletal Musculoskeletal: Denies arthralgias or myalgias Integumentary Denies abscess or rash Neurologic Neurologic: Denies headache(s) or weakness Psychiatric Psychiatric: Denies anxiety, depression, suicidal ideation or suicidal thoughts Endocrine Endocrinology: Denies polydipsia, polyphagia or polyuria Allergic/Immunologic Allergic/Immunologic ED: Denies mouth swelling, tongue swelling or urticaria EXAM Physical Exam Const Vital Signs: 04/21/22 17:04 Temperature 97.0 F L Temperature Source Temporal Pulse Rate 108 H Respiratory Rate 18 Blood Pressure 142/98 H Blood Pressure Mean 112 Pulse Ox 96 Oxygen Delivery Method Room Air Positive well nourished and well developed General Appearance ED: well developed HEENT Reports normocephalic, head/scalp atraumatic and moist mucous membranes Eyes PERRL and EOMs intact bilaterally Neck no lymphadenopathy, supple and no JVD Neck Narrative: There are multiple injection sites on the neck that do not appear infected. Resp normal respiratory effort and clear to auscultation bilaterally Cardio regular rate, regular rhythm and no murmurs GI normal to inspection, nondistended, normoactive bowel sounds and non-tender Palpation: soft Back/Spine no CVA tenderness and normal ROM Extremity normal to inspection General Extremety ED: Negative for edema General Extremity: Negative for edema Neuro oriented x3 and CN's II-XII intact bilaterally Sensorium / Orientation: alert Motor Exam: strength 5/5 throughout Psych mental status grossly normal Mood & Affect: Negative for depressed or tearful Skin no rashes or lesions noted and no wounds MDM MDM MDM Narrative Medical decision making narrative: Patient was medically cleared. I will discussed with the hospitalist regarding admission. Lab Data Attestation: I reviewed the patient's lab results. Labs: Laboratory Results - last 24 hr 04/21/22 04/21/22 04/21/22 17:45 17:50 17:50 WBC 6.7 RBC 4.94 Hgb 13.8 Hct 42.6 MCV 86.2 MCH 27.9 MCHC 32.4 RDW Std Deviation 42.0 RDW Coeff of Corinne 13.4 Plt Count 285 MPV 8.6 Immature Gran % (Auto) 0.100 Neut % (Auto) 65.3 Lymph % (Auto) 22.2 Clinch % (Auto) 8.0 Eos % (Auto) 4.0 Baso % (Auto) 0.4 Absolute Neuts (auto) 4.4 Absolute Lymphs (auto) 1.49 Nucleated RBC % 0 Sodium 139 Potassium 3.9 Chloride 103 Carbon Dioxide 30.0 Anion Gap 6 BUN 10 Creatinine 0.90 Estim Creat Clear Calc 113.47 Est GFR (MDRD) Af Amer 122 Est GFR (MDRD) Non-Af 101 BUN/Creatinine Ratio 11.1 Glucose 134 H Calcium 9.2 Urine Opiates Screen NEGATIVE Urine Methadone Screen NEGATIVE Ur Barbiturates Screen NEGATIVE Ur Phencyclidine Scrn NEGATIVE Ur Amphetamines Screen POSITIVE H MDMA (Ecstasy) Screen POSITIVE H U Benzodiazepines Scrn NEGATIVE Urine Cocaine Screen NEGATIVE U Cannabinoids Screen POSITIVE H Ur Drug Screen Comment Discharge Plan Triage Chief Complaint: Substance Abuse ED Provider: Werner Banks Dx/Rx/DC Orders Prescriptions: No Action venlafaxine 75 mg capsule,extended release 24hr 150 mg PO DAILY Primary Care Provider: Care Physician,No Primary Referrals: Care Physician,No Primary [Primary Care Provider] -
[2022-04-21 18:34] LABS: AST(SGOT) 31 U/L (15-37); Alanine Aminotransfer ALT/SGPT 49 U/L (16-61); Albumin, Serum 3.7 g/dL (3.2-5.0); Alkaline Phosphatase 108 U/L (45-117); Bilirubin, Direct 0.08 mg/dL (0.00-0.30); Globulin 3.9 g/dL (2.2-4.2); Protein, Total 7.6 g/dL (6.4-8.2)
--- NOTE | 2022-04-21 20:01 | CM.ED ---
Social Work Telephone call to treatment Navigator, Ignacia. Ignacia updated on patient admission to [facility]. [facility], AARON-S
[2022-04-21 20:11] VITALS: BP 131/67; PULSE 100; RESP 18; TEMP 36.7
--- NOTE | 2022-04-21 20:16 | HP.PCM.HOS_ITS ---
HPI - General General Date of Admission: 04/21/22 Date of Service: 04/21/22 Chief Complaint: Requesting services for opiate detox HPI Narrative MAYITO TINOCO, is a 36 M who presents to the emergency room at [facility] today with requesting services for opiate detox. Patient injects opiates daily-he is not sure whether its heroin or fentanyl, he has been using them on a continuous basis since May of this year. Patient had been in senior living prior to this and had been clean for an extended period of time. Patient's last injection was at 1 PM this afternoon, he has no complaints of any withdrawal symptoms at the time of my examination, in fact the patient was sleeping and resting at the time of my exam. Patient has chronic depression and takes Effexor, he denies any alcohol usage, his tox screen in the ER was positive for cannabinoids, amphetamines, and MDMA. Labs were otherwise unremarkable. Patient will be admitted to [place] [id number], orders were placed using the opiate detox order set. [facility] Medical History Drug abuse Home Medications venlafaxine 75 mg capsule,extended release 24 hr 150 mg PO DAILY mood 04/21/22 [History Last Taken 04/21/22] Allergy/AdvReac Type Severity Reaction Status Date / Time No Known Allergies Allergy Verified 04/21/22 17:04 Social History (Updated 04/21/22 @ 18:[address] Werner Banks DO) Smoking Status: Current every day smoker tobacco type: cigarettes substance use type: opiates ROS Constitutional Constitutional: Denies anorexia, change in weight, chills, fatigue, fever(s), malaise, night sweats or weakness Eyes Eyes: Denies blurry vision, change in vision, discharge from eye(s) or eye pain Cardiovascular Cardiovascular: Denies chest pain, claudication, dyspnea on exertion, edema, li ghtheadedness or palpitations Respiratory/Chest Respiratory/Chest: Denies cough, excessive phlegm production, hemoptysis, productive cough, shortness of breath at rest or shortness of breath with exertion Gastrointestinal Gastrointestinal: Denies abdominal pain, constipation, diarrhea, hematemesis, he matochezia, melena, nausea or vomiting Genitourinary Genitourinary: Denies dysuria, hematuria, urinary frequency, urinary hesitancy, urinary incontinence or urinary urgency Musculoskeletal Musculoskeletal: Denies back pain, joint pain, joint stiffness, joint swelling, myalgias or neck pain Neurologic Neurologic: Denies abnormal gait, abnormal speech, dizziness, focal weakness, headache(s), loss of vision, numbness, other visual disturbances, paresthesias, syncope or tingling Psychiatric Psychiatric: Denies anxiety, cognitive impairment, depression, irritability, mood swings or suicidal ideation Endocrine Endocrinology: Denies change in body appearance, cold intolerance, excessive sweating, heat intolerance, polydipsia or polyuria Hematologic/Lymphatic Hematologic/Lymphatic: Denies none, anemia, easy bleeding, easy bruising or lymphadenopathy Allergic/Immunologic Allergic/Immunologic: Denies rhinitis, urticaria, eczemia or asthma Vital Signs Vital Signs Vital Signs: 04/21/22 17:04 04/21/22 20:11 04/21/22 20:11 Temperature 97.0 F L 98.1 F 98.1 F Temperature Source Temporal Oral Oral Pulse Rate 108 H 100 100 Respiratory Rate 18 18 18 Blood Pressure 142/98 H 131/67 H 131/67 H Blood Pressure Mean 112 88 88 Pulse Ox 96 Oxygen Delivery Method Room Air Weight Weight: 86.183 kg Body Mass Index (BMI) 28.0 Physical Exam Const no apparent distress and healthy appearing Constitutional Narrative: Patient is somnolent, he awakens easily to verbal stimulation and answers questions appropriately. He does not appear to be confused General Appearance: cooperative, well kempt and well developed Orientation / Consciousness: awake, oriented to person, oriented to place and oriented to time HEENT normocephalic, head/scalp atraumatic, hearing grossly normal bilaterally and moist oral mucous membranes Eyes PERRL, EOMs intact bilaterally and conjunctivae normal Neck supple, no JVD, thyroid normal and no carotid bruits General: trachea midline Resp normal respiratory effort, no retractions, no use of accessory muscles and clear to auscultation bilaterally Auscultation: Negative for rales, rhonchi or wheezes Cardio regular rate, regular rhythm, S1 normal heart sound, S2 normal heart sound, no m urmurs, no rub and no gallops GI normal to inspection, nondistended, normoactive bowel sounds, soft to palpation, non-tender and non-distended Extremity no clubbing, cyanosis or edema Skin no rashes or lesions noted General Skin Exam: no breakdown Neuro oriented x3, CN's II-XII intact bilaterally, moves all extremities, no focal motor deficits and no sensory deficits noted Sensorium / Orientation: awake, alert, oriented to person, oriented to place and oriented to time Speech: speech normal Psych affect normal Results Lab / Micro Data Result Diagrams: 04/21/22 17:50 04/21/22 17:50 Labs: Laboratory Results - last 24 hr 04/21/22 17:45: Urine Opiates Screen NEGATIVE, Urine Methadone Screen NEGATIVE, Ur Barbiturates Screen NEGATIVE, Ur Phencyclidine Scrn NEGATIVE, Ur Amphetamines Screen POSITIVE H, MDMA (Ecstasy) Screen POSITIVE H, U Benzodiazepines Scrn NEGATIVE, Urine Cocaine Screen NEGATIVE, U Cannabinoids Screen POSITIVE H, Ur Drug Screen Comment 04/21/22 17:50: WBC 6.7, RBC 4.94, Hgb 13.8, Hct 42.6, MCV 86.2, MCH 27.9, MCHC 32.4, RDW Std Deviation 42.0, RDW Coeff of Corinne 13.4, Plt Count 285, MPV 8.6, Immature Gran % (Auto) 0.100, Neut % (Auto) 65.3, Lymph % (Auto) 22.2, [place] % (Auto) 8.0, Eos % (Auto) 4.0, Baso % (Auto) 0.4, Absolute Neuts (auto) 4.4, Absolute Lymphs (auto) 1.49, Nucleated RBC % 0 04/21/22 17:50: Sodium 139, Potassium 3.9, Chloride 103, Carbon Dioxide 30.0, An ion Gap 6, BUN 10, Creatinine 0.90, Estim Creat Clear Calc 113.47, Est GFR (MDRD) Af Amer 122, Est GFR (MDRD) Non-Af 101, BUN/Creatinine Ratio 11.1, Glucose 134 H, Calcium 9.2 04/21/22 17:50: Ethyl Alcohol 6.0 04/21/22 17:50: Total Bilirubin 0.30, Direct Bilirubin 0.08, AST 31, ALT 49, Alkaline Phosphatase 108, Total Protein 7.6, Albumin 3.7, Globulin 3.9 Assessment & Plan Assessment/Plan (1) Substance abuse: PLAN: Plan 1. Chronic opiate addiction-patient will be admitted to [facility] 3, orders were entered using the opiate detox order set, he will be seen in consultation by addiction social media marketer. #2 chronic depression-patient takes Effexor, this will be continued here Charges/Coding Visit Charges Inpatient E&M: 27363 Init Hosp L3
[2022-04-21 20:29] VITALS: BP 131/83; PULSE 85; RESP 18; TEMP 36.9; O2SAT 97
[2022-04-22] VITALS (15 sets, daily range): BP systolic 124–155; BP diastolic 78–101; PULSE 77–116; RESP 14–18; TEMP 36.1–37.8; O2SAT 90–100
[2022-04-22] MEDS: Dicyclomine 10 MG Capsule 20 MG PO (04:41)
[2022-04-22] MEDS: Buprenorphine HCl 2 MG TAB.SUBL 4 MG SL (04:56)
--- NOTE | 2022-04-22 07:04 | PN.HOSP_ITS ---
Subjective Subjective Patient was actively retching in the room. Patient was over the left side of his bed vomiting into trash can. After I seen him, he got up with nurses to have a bowel movements. Patient was straining on the commode and then had a syncopal episode. No tonic-clonic activity was noted. Patient was evaluated and did claim some abdominal pain and was able to follow commands Objective Data Objective Data Vital Signs: Vital Signs Temp Pulse Resp BP Pulse Ox O2 Del Method 36.7 C 78 15 124/78 H 94 Room Air 04/22/22 02:30 04/22/22 02:30 04/22/22 02:30 04/22/22 02:30 04/22/22 02:30 04/22/22 02:30 Oxygen Delivery Method Room Air Weight: 89.358 kg Body Mass Index (BMI) 28.0 Intake & Output: Intake and Output for Last 24 Hours 04/20/22 04/21/22 04/22/22 23:59 23:59 23:59 Intake Total 340 / 340 Balance 340 / 340 Lab / Micro Data Result Diagrams: 04/21/22 17:50 04/21/22 17:50 Labs: Laboratory Results - last 24 hr 04/21/22 17:45: Urine Opiates Screen NEGATIVE, Urine Methadone Screen NEGATIVE, Ur Barbiturates Screen NEGATIVE, Ur Phencyclidine Scrn NEGATIVE, Ur Amphetamines Screen POSITIVE H, MDMA (Ecstasy) Screen POSITIVE H, U Benzodiazepines Scrn NEGATIVE, Urine Cocaine Screen NEGATIVE, U Cannabinoids Screen POSITIVE H, Ur Drug Screen Comment 04/21/22 17:50: WBC 6.7, RBC 4.94, Hgb 13.8, Hct 42.6, MCV 86.2, MCH 27.9, MCHC 32.4, RDW Std Deviation 42.0, RDW Coeff of Corinne 13.4, Plt Count 285, MPV 8.6, Immature Gran % (Auto) 0.100, Neut % (Auto) 65.3, Lymph % (Auto) 22.2, [place] % (Auto) 8.0, Eos % (Auto) 4.0, Baso % (Auto) 0.4, Absolute Neuts (auto) 4.4, Absolute Lymphs (auto) 1.49, Nucleated RBC % 0 04/21/22 17:50: Sodium 139, Potassium 3.9, Chloride 103, Carbon Dioxide 30.0, Anion Gap 6, BUN 10, Creatinine 0.90, Estim Creat Clear Calc 113.47, Est GFR (MDRD) Af Amer 122, Est GFR (MDRD) Non-Af 101, BUN/Creatinine Ratio 11.1, Glucose 134 H, Calcium 9.2 04/21/22 17:50: Ethyl Alcohol 6.0 04/21/22 17:50: Total Bilirubin 0.30, Direct Bilirubin 0.08, AST 31, ALT 49, Alkaline Phosphatase 108, Total Protein 7.6, Albumin 3.7, Globulin 3.9 Physical Exam Const alert and no apparent distress Eyes PERRL Eyes Narrative: No icterus Resp normal respiratory effort, no retractions, no use of accessory muscles and clear to auscultation bilaterally Cardio regular rate, regular rhythm, S1 normal heart sound and S2 normal heart sound GI normal to inspection, nondistended, normoactive bowel sounds, soft to palpation and non-tender Extremity normal to inspection Neuro moves all extremities and no focal motor deficits Assessment & Plan Assessment/Plan (1) Opiate withdrawal: PLAN: On buprenorphine taper Continue with other adjunctive medications help with other somatic complaints with his withdrawal. (2) Syncope: PLAN: Vasovagal due to withdrawal, straining on the commode as well as his vomiting. EKG review showed normal sinus rhythm with no acute changes. Blood pressure is normal but patient did receive a liter of IV fluids. Is verify that the patient's personal items box was closed. Patient denied using any substances in the interim that he had been seen. (3) Intractable nausea and vomiting: PLAN: Ongoing As needed IM Compazine and Zofran. PLAN: Plan Polysubstance abuse: Drug screen positive for cannabinoids MDMA and amphetamines. Patient, to maintain sobriety, will need to become completely sober if he wishes for this to succeed. Greater than 35 minutes of which greater than 50% of time was bedside evaluated patient twice and evaluating him reviewing EKG. Charges/Coding Visit Charges Inpatient E&M: 93180 Subs Hosp L3
--- NOTE | 2022-04-22 09:13 | NURSING ---
Into room as stat assist alarm going off, found yarn preparation supervisor and Primary RN with patient who is on the BSC. pt unresponsive. respirations even, gooseflesh noted. pt max assisted back to bed with HOB lowered. vs, glucose obtained-noted HTN, hr 80's, 100%RA. noted totes in room remain zip tied. Pupils pin point, minimal responsive with sternal rub. 0915 text sent urgently to Dr. Saavedra: [phone] Andrei can you come see patient? Questionable vegal on BSC or something else. Out of it. Kiara [id number]. 0917 calls placed to ICU, PCU and Claim Attorney for Dr. Saavedra. [address]18 Dr[address] Saavedra bedside. Narcan obtained from accudose, order to hold narcan. patient able to open eyes/follow commands. cspo2 maintained. cps called for EKG.
[2022-04-22] MEDS: 0.9% Normal Saline 1,000 ML 999 ML IV (09:25)
--- NOTE | 2022-04-22 09:30 | EKG12_ITS ---
Test Reason : POSS VASO-VAGEL Blood Pressure : / mmHG Vent. Rate : 089 BPM Atrial Rate : 089 BPM P-R Int : 176 ms QRS Dur : 082 ms QT Int : 388 ms P-R-T Axes : 030 018 033 degrees QTc Int : 472 ms Normal sinus rhythm Normal ECG No previous ECGs available Confirmed by EDUARD NEGRETE, MARTINE ([id number]), online editor JAMIL TIJERINA ([id number]) on 04/26/2022 11:31:13 AM Referred By: RUBY Confirmed By:MARTINE CHAPA MD
[2022-04-22] MEDS: Ondansetron 4 MG/2 ML Vial IM ×2 (09:37→22:39)
--- NOTE | 2022-04-22 09:42 | NURSING ---
at 0910, pt was assisted to BSC to have BM, very unsteady on feet and requiring 2 assist but able to follow commands. while on BSC, pt became unresponsive with fixed pupils and eyes rolled back, assisted back to bed reverse and MD was notified. vital signs recorded, IV started, pt placed in trendelenberg position, able to follow some commands to squeeze fingers but unable to verbalize responses. placed on O2, MD to bedside. pt slowly becoming more alert and able to state year and place. placed on continuous pulse ox and HOB at 30, new orders placed for labwork and EKG
[2022-04-22 10:05] LABS: Absolute Lymphocyte Count 1.65 X10^3/uL (0.83-4.51); Absolute Neutrophil Count 6.7 X10^3/uL (2.0-7.7); Basophil# 0.04 X10^3/uL; Basophil% 0.4 % (0-1); Eosinophils% 2.1 % (0-5); Hemoglobin 15.5 g/dL (13.0-16.5); Lymphocyte # 1.65 X10^3/ul (0.83-4.51); Lymphocyte % 17.6 % (19-41); Mean Corp Hgb Conc 33.7 g/dL (32-36); Mean Corpuscular Hgb 28.2 pg (27.0-32.0); Mean Corpuscular Volume 83.8 fL (80-94); Mean Platelet Vol. 9.8 fl (6.2-12.0); Monocyte# 0.72 X10^3/uL; Monocyte% 7.7 % (0-10); NRBC Flagged by Analyzer 0 % (0-5); Neutrophil # 6.72 X10^3/uL (2.7-7.7); Neutrophil % 71.9 % (47-70); Platelet Count 148 K/mm3 (150-450); RBC Distribution Width CV 13.2 % (11.6-14.6); RBC Distribution Width SD 40.7 fl (35.1-43.9); Red Blood Count 5.49 M/mm3 (4.6-6.2); White Blood Count 9.4 K/mm3 (4.4-11.0)
[2022-04-22 10:18] LABS: Anion Gap 10 (5-15); BUN 9 mg/dL (7-18); BUN/Creat Ratio 9.8 RATIO (10-20); Calcium,Total 9.6 mg/dL (8.5-10.1); Chloride 103 mmol/L (98-107); Creatinine, Serum 0.92 mg/dL (0.70-1.30); EST Glomerular Filtration Rate 98 mL/min (>60); Est Glom Filt Rate - Afr Amer 119 mL/min (>60); Glucose 122 mg/dL (74-106); Potassium 3.4 mmol/L (3.5-5.1); Sodium Level 139 mmol/L (136-145)
[2022-04-22 10:25] LABS: Bedside Glucose 138 mg/dL (74-106)
[2022-04-22] MEDS: Naloxone 0.4 MG/ML Syringe IV (10:45)
--- NOTE | 2022-04-22 10:47 | NURSING ---
and primary RN bedside. Narcan 0.4mg iv given. maintenance of way supervisor notified of verbal orders will transfer to PCU.
[2022-04-22] MEDS: 0.9% Saline Lock 10 ML Syringe IV (10:48)
--- NOTE | 2022-04-22 11:08 | NURSING ---
report called to Sal[facility] in PCU. per Dr Saavedra, pt is to get dose of IV ativan prior to transfer. will give when med is verified
[2022-04-22] MEDS: LORazepam 2 MG/ML Syringe IV (11:21)
[2022-04-22] MEDS: 0.9% Normal Saline 1,000 ML 150 ML IV ×2 (11:26→22:40)
--- NOTE | 2022-04-22 11:51 | CT_ITS ---
HISTORY: agitation. Dystonia. TECHNIQUE: Multiple axial images were obtained of the head without intravenous contrast. A radiation dose optimization technique was used for this scan. 250 images. COMPARISON: None. FINDINGS: BRAIN PARENCHYMA: No significant attenuation abnormality. No acute intra-axial hemorrhage. CSF SPACES: Cerebral ventricles, cortical sulci, and other extra-axial CSF spaces within normal limits in size for patient''s age. No midline shift or other significant mass effect. No acute extra-axial hemorrhage. CALVARIUM: Intact. PARANASAL SINUSES AND MASTOID AIR CELLS: Small maxillary sinus mucosal retention cysts. ORBITS: Unremarkable. CT/Brain/Head without Contrast IMPRESSION: No acute intracranial process identified. Electronically Signed: Elle Talavera MD at 12:51 EST ,
[2022-04-22] MEDS: proCHLORPERazine 10 MG/2 ML Vial 5 MG IM ×2 (13:12→20:00)
[2022-04-22 13:17] LABS: Absolute Lymphocyte Count 0.95 X10^3/uL (0.83-4.51); Absolute Neutrophil Count 10.9 X10^3/uL (2.0-7.7); Basophil# 0.03 X10^3/uL; Basophil% 0.2 % (0-1); Eosinophil# 0.01 X10^3/uL; Eosinophils% 0.1 % (0-5); Hematocrit 45.8 % (40-54); Hemoglobin 15.2 g/dL (13.0-16.5); Lymphocyte # 0.95 X10^3/ul (0.83-4.51); Lymphocyte % 7.6 % (19-41); Mean Corp Hgb Conc 33.2 g/dL (32-36); Mean Corpuscular Hgb 28.2 pg (27.0-32.0); Monocyte# 0.58 X10^3/uL; Monocyte% 4.6 % (0-10); NRBC Flagged by Analyzer 0 % (0-5); Neutrophil # 10.92 X10^3/uL (2.7-7.7); Platelet Count 179 K/mm3 (150-450); RBC Distribution Width CV 13.3 % (11.6-14.6); Red Blood Count 5.39 M/mm3 (4.6-6.2); White Blood Count 12.6 K/mm3 (4.4-11.0)
[2022-04-22 13:38] LABS: ALB/GLOB Ratio 0.9 RATIO (0.9-2.4); AST(SGOT) 35 U/L (15-37); Alanine Aminotransfer ALT/SGPT 54 U/L (16-61); Albumin, Serum 3.8 g/dL (3.2-5.0); Alkaline Phosphatase 115 U/L (45-117); Anion Gap 9 (5-15); BUN 9 mg/dL (7-18); BUN/Creat Ratio 11.2 RATIO (10-20); Calcium,Total 9.4 mg/dL (8.5-10.1); Chloride 105 mmol/L (98-107); EST Glomerular Filtration Rate 116 mL/min (>60); Est Glom Filt Rate - Afr Amer 140 mL/min (>60); Estimated Creatinine Clearance 127.65 ml/min; Globulin 4.2 g/dL (2.2-4.2); Glucose 120 mg/dL (74-106); Potassium 3.7 mmol/L (3.5-5.1); Sodium Level 139 mmol/L (136-145)
[2022-04-22 13:46] LABS: CPK Total, Creatine Kinase 123 U/L (39-308)
--- NOTE | 2022-04-22 22:10 | RAD_ITS ---
STUDY: X-RAY CHEST REASON FOR EXAM: Male, 36 years old. syncope TECHNIQUE: AP portable COMPARISON: None. FINDINGS: The lungs are clear and expanded. There is no demonstrated pleural abnormality. Normal size heart. Normal mediastinum and tyson. Normal visualized pulmonary arteries. Normal visualized aortic arch and descending thoracic aorta. Normal visualized thoracic spine. Normal visualized ribs, clavicles, and shoulders. There is no demonstrated abnormality of the visualized soft tissue structures of the upper abdomen. RAD/Chest 1 View (Portable) IMPRESSION: Normal x-ray examination of the chest. Electronically Signed: Jt Albert MD at 22:24 EST ,
[2022-04-22 22:23] LABS: Absolute Lymphocyte Count 0.86 X10^3/uL (0.83-4.51); Absolute Neutrophil Count 11.1 X10^3/uL (2.0-7.7); Basophil# 0.02 X10^3/uL; Basophil% 0.2 % (0-1); Hematocrit 46.7 % (40-54); Hemoglobin 15.4 g/dL (13.0-16.5); Lymphocyte # 0.86 X10^3/ul (0.83-4.51); Mean Corpuscular Hgb 28.2 pg (27.0-32.0); Mean Corpuscular Volume 85.5 fL (80-94); Mean Platelet Vol. 10.2 fl (6.2-12.0); Monocyte# 0.35 X10^3/uL; Monocyte% 2.8 % (0-10); NRBC Flagged by Analyzer 0 % (0-5); Neutrophil # 11.07 X10^3/uL (2.7-7.7); Neutrophil % 89.7 % (47-70); Platelet Count 195 K/mm3 (150-450); RBC Distribution Width CV 13.7 % (11.6-14.6); RBC Distribution Width SD 42.5 fl (35.1-43.9); Red Blood Count 5.46 M/mm3 (4.6-6.2); White Blood Count 12.3 K/mm3 (4.4-11.0)
--- NOTE | 2022-04-22 22:30 | NURSING ---
pt very lethargic and not with it, had some bouts of vomiting, im compazine given called [facility] in [facility] to start a line since day shift was unable to get one started and the pt needs fluid, site started w ultrasound to the right ac. dr zimmerman notified of the pts elevated bp, hr, temp and vomiting, pt also has not been voiding. ordered labs, cxray. blood cultures, covid test. also ordered the pt to be bladder scanned-was >1000, then the pt said he needed to void and did, ua also sent
[2022-04-22 22:36] LABS: Anion Gap 8 (5-15); BUN 9 mg/dL (7-18); BUN/Creat Ratio 9.3 RATIO (10-20); Calcium,Total 9.6 mg/dL (8.5-10.1); Chloride 100 mmol/L (98-107); Creatinine, Serum 0.97 mg/dL (0.70-1.30); EST Glomerular Filtration Rate 93 mL/min (>60); Est Glom Filt Rate - Afr Amer 112 mL/min (>60); Estimated Creatinine Clearance 105.28 ml/min; Glucose 126 mg/dL (74-106); Potassium 4.1 mmol/L (3.5-5.1); Sodium Level 138 mmol/L (136-145)
[2022-04-22 23:01] LABS: Thyroid Stim Hormone (TSH) 0.64 uIU/mL (0.358-3.74)
[2022-04-22] MEDS: Buprenorphine HCl 2 MG TAB.SUBL SL (23:26)
[2022-04-22 23:27] LABS: Mucous, Urine 0 SEEN /hpf (<or=2+); Red Blood Cells-Urine 0 SEEN /hpf (0-5); Squamous Epithelial Cells - UA 0 SEEN /hpf (0-5); White Blood Cells 0 SEEN /hpf (0-5)
[2022-04-22 23:46] LABS: Color, Urine Yellow (Yellow); Glucose, Dipstick Normal (Normal); Ketone-Dipstick Negative (Negative); Leukocyte Esterase-Dipstick Negative /ul (Negative); Nitrite-Dipstick Negative (Negative); Occult Blood-Urine Negative /ul (Negative); Protein-Dipstick Negative (Negative); Specific Gravity, Urine 1.015 (1.002-1.030); Urine Bilirubin Dipstick Negative (Negative); Urine Clarity Clear (Clear); Urine Urobilinogen Normal (Normal)
[2022-04-22 23:55] LABS: Bacteria RARE /hpf (None Seen)
[2022-04-23] VITALS (15 sets, daily range): BP systolic 114–157; BP diastolic 77–108; PULSE 82–121; RESP 16–22; TEMP 37.8–38.3; O2SAT 93–99
[2022-04-23 00:30] LABS: Troponin-I HS 4 pg/mL (3.0-78.0)
[2022-04-23] MEDS: proCHLORPERazine 10 MG/2 ML Vial 5 MG IV (00:46)
--- NOTE | 2022-04-23 00:54 | NURSING ---
pt called, vomiting again, 300ML compazine given
[2022-04-23 01:55] LABS: Troponin-I HS 4 pg/mL (3.0-78.0)
--- NOTE | 2022-04-23 03:40 | NURSING ---
dr zimmerman aware of the pts bp, temp and other vs. no new orders. vomit sent for occult blood flu swab ordered.
[2022-04-23 04:55] LABS: Troponin-I HS 5 pg/mL (3.0-78.0)
[2022-04-23] MEDS: 0.9% Normal Saline 1,000 ML 150 ML IV ×2 (05:45→13:34)
[2022-04-23] MEDS: Ondansetron 4 MG/2 ML Vial IV ×2 (05:45→21:17)
--- NOTE | 2022-04-23 06:21 | PCM.PN.BLA ---
Progress Note Positive gastric occult blood. Protonix IV ordered. Trend H&H.
[2022-04-23 06:32] LABS: Hematocrit 44.8 % (40-54); Hemoglobin 15.1 g/dL (13.0-16.5)
[2022-04-23] MEDS: Buprenorphine HCl 2 MG TAB.SUBL SL ×3 (06:35→22:01)
--- NOTE | 2022-04-23 07:57 | PN.HOSP_ITS ---
Subjective Subjective Feeling restless. Tells me that he does not have that dystonia with his jaw and hands when he gets dehydrated but rather when he goes through precipitated withdrawal. Also gets it when he has vomiting. Objective Data Objective Data Vital Signs: Vital Signs Temp Pulse Resp BP Pulse Ox O2 Del Method O2 Flow Rate 38.3 C H 101 H 20 H 157/100 H 93 Room Air 2 04/23/22 04:25 04/23/22 07:37 04/23/22 04:25 04/23/22 04:25 04/23/22 04:25 04/23/22 04:25 04/22/22 22:21 Oxygen Flow Rate (L/min) 2 Oxygen Delivery Method Room Air Weight: 89.358 kg Body Mass Index (BMI) 28.0 Intake & Output: Intake and Output for Last 24 Hours 04/21/22 04/22/22 04/23/22 23:59 23:59 23:59 Intake Total 2340 / 2340 1000 / 1000 Output Total 900 / 900 1600 / 1600 Balance 1440 / 1440 -600 / -600 Lab / Micro Data Result Diagrams: 04/23/22 04:25 04/22/22 22:07 Labs: Laboratory Results - last 24 hr 04/22/22 09:17: POC Glucose 138 H 04/22/22 09:51: WBC 9.4, RBC 5.49, Hgb 15.5, Hct 46.0, MCV 83.8, MCH 28.2, MCHC 33.7, RDW Std Deviation 40.7, RDW Coeff of Corinne 13.2, Plt Count 148 L, MPV 9.8, Immature Gran % (Auto) 0.300, Neut % (Auto) 71.9 H, Lymph % (Auto) 17.6 L, [place] % (Auto) 7.7, Eos % (Auto) 2.1, Baso % (Auto) 0.4, Absolute Neuts (auto) 6.7, Absolute Lymphs (auto) 1.65, Nucleated RBC % 0 04/22/22 09:51: Sodium 139, Potassium 3.4 L, Chloride 103, Carbon Dioxide 26.0, Anion Gap 10, BUN 9, Creatinine 0.92, Estim Creat Clear Calc 111.00, Est GFR (MDRD) Af Amer 119, Est GFR (MDRD) Non-Af 98, BUN/Creatinine Ratio 9.8 L, Glucose 122 H, Calcium 9.6 04/22/22 13:00: WBC 12.6 H, RBC 5.39, Hgb 15.2, Hct 45.8, MCV 85.0, MCH 28.2, MCHC 33.2, RDW Std Deviation 41.0, RDW Coeff of Corinne 13.3, Plt Count 179, MPV 10.0, Immature Gran % (Auto) 0.500, Neut % (Auto) 87.0 H, Lymph % (Auto) 7.6 L, [place] % (Auto) 4.6, Eos % (Auto) 0.1, Baso % (Auto) 0.2, Absolute Neuts (auto) 10.9 H, Absolute Lymphs (auto) 0.95, Nucleated RBC % 0 04/22/22 13:00: Sodium 139, Potassium 3.7, Chloride 105, Carbon Dioxide 25.0, Anion Gap 9, BUN 9, Creatinine 0.80, Estim Creat Clear Calc 127.65, Est GFR (MDRD) Af Amer 140, Est GFR (MDRD) Non-Af 116, BUN/Creatinine Ratio 11.2, Glucose 120 H, Calcium 9.4, Total Bilirubin 0.40, AST 35, ALT 54, Alkaline Phosphatase 115, Total Protein 8.0, Albumin 3.8, Globulin 4.2, Albumin/Globulin Ratio 0.9 04/22/22 13:00: Total Creatine Kinase 123 04/22/22 22:07: TSH 0.64 04/22/22 22:07: WBC 12.3 H, RBC 5.46, Hgb 15.4, Hct 46.7, MCV 85.5, MCH 28.2, MCHC 33.0, RDW Std Deviation 42.5, RDW Coeff of Corinne 13.7, Plt Count 195, MPV 10.2, Immature Gran % (Auto) 0.300, Neut % (Auto) 89.7 H, Lymph % (Auto) 7.0 L, [place] % (Auto) 2.8, Eos % (Auto) 0.0, Baso % (Auto) 0.2, Absolute Neuts (auto) 11.1 H, Absolute Lymphs (auto) 0.86, Nucleated RBC % 0 04/22/22 22:07: Sodium 138, Potassium 4.1, Chloride 100, Carbon Dioxide 30.0, Anion Gap 8, BUN 9, Creatinine 0.97, Estim Creat Clear Calc 105.28, Est GFR (MDRD) Af Amer 112, Est GFR (MDRD) Non-Af 93, BUN/Creatinine Ratio 9.3 L, Glucose 126 H, Calcium 9.6 04/22/22 22:07: Ammonia 12.0 04/22/22 22:07: Troponin I High Sens 4 04/22/22 23:20: Urine Color Yellow, Urine Clarity Clear, Urine pH 8.0, Ur Specific [place] 1.015, Urine Protein Negative, Urine Glucose (UA) Normal, Urine Ketones Negative, Urine Occult Blood Negative, Urine Nitrite Negative, Urine Bilirubin Negative, Urine Urobilinogen Normal, Ur Leukocyte Esterase Negative, Urine RBC 0 SEEN, Urine WBC 0 SEEN, Ur Squamous Epith Cells 0 SEEN, Urine Bacteria RARE, Urine Mucus 0 SEEN 04/23/22 01:27: Troponin I High Sens 4 04/23/22 04:25: Troponin I High Sens 5 04/23/22 04:25: Hgb 15.1, Hct 44.8 Micro: Microbiology 04/23/22 05:23 Mucosa - Nasopharyngeal Influenza Types A,B Direct FA (CECILIA) - Final 04/23/22 04:30 Vomitus Gastric Occult Blood - Final Occult Blood Positive 04/22/22 23:04 Nasal Secretion SARS-CoV-2 Antigen (Rapid) - Final Radiography Diagnostic Testing: Radiology Impression Brain CT 04/22/22 11:51 IMPRESSION: No acute intracranial process identified. Electronically Signed: Elle Talavera MD at 12:51 EST , Chest X-Ray 04/22/22 22:10 IMPRESSION: Normal x-ray examination of the chest. Electronically Signed: Jt Albert MD at 22:24 EST , Physical Exam Const alert and no apparent distress HEENT head/scalp atraumatic HEENT Narrative: Able to open his jaw fully Resp normal respiratory effort, no retractions, no use of accessory muscles and clear to auscultation bilaterally Cardio regular rate, regular rhythm, S1 normal heart sound and S2 normal heart sound GI normal to inspection, nondistended, normoactive bowel sounds, soft to palpation, non-tender and non-distended Extremity normal to inspection Neuro moves all extremities Assessment & Plan Assessment/Plan (1) Opiate withdrawal: PLAN: Buprenorphine was discontinued on the because of his dystonia. It has been resumed but the patient is still writhing around. We will continue with that taper but also resume the other as needed medications to help with his other issues. (2) Syncope: PLAN: Vasovagal due to withdrawal, straining on the commode as well as his vomiting. EKG review showed normal sinus rhythm with no acute changes. Blood pressure is normal but patient did receive a liter of IV fluids. Is verify that the patient's personal items box was closed. Patient denied using any substances in the interim that he had been seen. (3) Intractable nausea and vomiting: PLAN: Ongoing As needed IM Compazine and Zofran. May be related with dystonia. (4) Dystonia: PLAN: Etiology: Could be an MS versus serotonin syndrome versus genetic predi sposition. I asked the patient if he uses ecstasy, cocaine or methamphetamines, he says he does not. Patient was having jaw clench and drooling and was started on lorazepam . Patient noted improvement afterwards. Patient also stated that he gets this when he goes through precipitated withdrawal. Unclear if stressful event such as opiate withdrawal precipitate this dystonic reactions. Would recommend patient follow-up with neurology as outpatient as this has been a chronic problem. PLAN: Plan Polysubstance abuse: Drug screen positive for cannabinoids MDMA and amphetamines. Patient, to maintain sobriety, will need to become completely sober if he wishes for this to succeed. Greater than 35 minutes of which greater than 50% of time was bedside evaluated patient twice and evaluating him reviewing EKG. Charges/Coding Visit Charges Inpatient E&M: 29751 Subs Hosp L2
[2022-04-23] MEDS: Methocarbamol 750 MG Tablet 1500 MG PO (11:10)
[2022-04-23 15:09] LABS: Hematocrit 44.3 % (40-54)
[2022-04-23] MEDS: Acetaminophen 325 MG Tablet 650 MG PO (15:43)
[2022-04-23] MEDS: 0.9% Saline Lock 10 ML Syringe IV (21:17)
[2022-04-24] VITALS (10 sets, daily range): BP systolic 127–136; BP diastolic 82–97; PULSE 65–89; RESP 16; TEMP 37.4–38.7; O2SAT 94–99
[2022-04-24] MEDS: Acetaminophen 325 MG Tablet 650 MG PO ×2 (03:07→15:47)
[2022-04-24] MEDS: Buprenorphine HCl 2 MG TAB.SUBL SL ×3 (05:05→23:03)
--- NOTE | 2022-04-24 06:40 | PCM.PN.HOSP ---
Subjective Subjective Nonverbal other than just uh-huhs and nuh-uhs and thumbs up. Patient states that he is able to open his mouth, speak, though is not speaking to me now, and feels overall better. Objective Data Objective Data Vital Signs: Vital Signs Temp Pulse Resp BP Pulse Ox O2 Del Method O2 Flow Rate 38.7 C H 89 16 136/97 H 99 Room Air 2 04/24/22 02:59 04/24/22 03:01 04/24/22 02:59 04/24/22 02:59 04/24/22 02:59 04/24/22 02:59 04/23/22 20:44 Oxygen Flow Rate (L/min) 2 Oxygen Delivery Method Room Air Weight: 89.358 kg Body Mass Index (BMI) 28.0 Intake & Output: Intake and Output for Last 24 Hours 04/22/22 04/23/22 04/24/22 23:59 23:59 23:59 Intake Total 2340 / 2340 3100 / 3100 Output Total 900 / 900 2575 / 2575 Balance 1440 / 1440 525 / 525 Lab / Micro Data Result Diagrams: 04/24/22 06:15 04/24/22 06:15 Labs: Laboratory Results - last 24 hr 04/23/22 14:50: Hgb 15.0, Hct 44.3 Micro: Microbiology 04/23/22 05:23 Mucosa - Nasopharyngeal Influenza Types A,B Direct FA (CECILIA) - Final 04/23/22 04:30 Vomitus Gastric Occult Blood - Final Occult Blood Positive 04/22/22 23:04 Nasal Secretion SARS-CoV-2 Antigen (Rapid) - Final Physical Exam Const Constitutional Narrative: Lying in bed. Wakes up. Stops eye contact briefly then closes eyes. Resp normal respiratory effort, no retractions, no use of accessory muscles and clear to auscultation bilaterally Cardio regular rate, regular rhythm, S1 normal heart sound and S2 normal heart sound GI normal to inspection, nondistended, normoactive bowel sounds, soft to palpation, non-tender and non-distended Assessment & Plan Assessment/Plan (1) Opiate withdrawal: PLAN: Buprenorphine was discontinued on the because of his dystonia. It has been resumed but the patient is still writhing around. We will continue with that taper but also resume the other as needed medications to help with his other issues. (2) Syncope: QUALIFIERS: Syncope type: vasovagal syncope Qualified Code(s): R55 - Syncope and collapse PLAN: Vasovagal due to withdrawal, straining on the commode as well as his vomiting. EKG review showed normal sinus rhythm with no acute changes. Blood pressure is normal but patient did receive a liter of IV fluids. Is verify that the patient's personal items box was closed. Patient denied using any substances in the interim that he had been seen. (3) Intractable nausea and vomiting: PLAN: Ongoing As needed IM Compazine and Zofran. May be related with dystonia. (4) Dystonia: PLAN: Etiology: Could be NMS versus serotonin syndrome versus genetic predisposition. I asked the patient if he uses ecstasy, cocaine or methamphetamines, he says he does not. Patient was having jaw clench and drooling and was started on lorazepam . Patient noted improvement afterwards. Patient also stated that he gets this when he goes through precipitated withdrawal. Unclear if stressful event such as opiate withdrawal precipitate this dystonic reactions. Would recommend patient follow-up with neurology as outpatient as this has been a chronic problem. (5) Fever: PLAN: Going up over the past 24 hours urinalysis, urine culture. Chest x-ray as patient was vomiting and concern for potential aspiration. With the dystonia that the patient was experiencing. Depending on results, may initiate antibiotics. Was negative for COVID-19 and influenza a and B the and . Blood cultures pending from the PLAN: Plan Polysubstance abuse: Drug screen positive for cannabinoids MDMA and amphetamines. Patient, to maintain sobriety, will need to become completely sober if he wishes for this to succeed. Charges/Coding Visit Charges Inpatient E&M: 13558 Subs Hosp L2
--- NOTE | 2022-04-24 06:50 | RAD_ITS ---
INDICATION: fever EXAMINATION/TECHNIQUE: X-RAY - XR Chest 1 View COMPARISON: 04/22/2022 FINDINGS: LINES/DEVICES: None. LUNGS: No consolidation, edema or effusion. No pneumothorax. MEDIASTINUM AND CARDIOVASCULAR STRUCTURES: Cardiac silhouette not enlarged. Central airways and mediastinal contour are unremarkable. BONES AND SOFT TISSUES: Unremarkable. RAD/Chest 1 View (Portable) IMPRESSION: No acute cardiopulmonary disease. Electronically Signed: Lj Dumont MD at 7:19 EST ,
[2022-04-24 07:13] LABS: Absolute Lymphocyte Count 1.57 X10^3/uL (0.83-4.51); Basophil# 0.02 X10^3/uL; Basophil% 0.2 % (0-1); Eosinophil# 0.02 X10^3/uL; Eosinophils% 0.2 % (0-5); Hematocrit 42.6 % (40-54); Hemoglobin 14.5 g/dL (13.0-16.5); Lymphocyte # 1.57 X10^3/ul (0.83-4.51); Lymphocyte % 15.1 % (19-41); Mean Corpuscular Hgb 28.8 pg (27.0-32.0); Mean Corpuscular Volume 84.5 fL (80-94); Mean Platelet Vol. 9.4 fl (6.2-12.0); Monocyte# 0.75 X10^3/uL; Monocyte% 7.2 % (0-10); NRBC Flagged by Analyzer 0 % (0-5); Neutrophil # 8.02 X10^3/uL (2.7-7.7); Platelet Count 183 K/mm3 (150-450); RBC Distribution Width CV 13.5 % (11.6-14.6); RBC Distribution Width SD 41.6 fl (35.1-43.9); Red Blood Count 5.04 M/mm3 (4.6-6.2); White Blood Count 10.4 K/mm3 (4.4-11.0)
[2022-04-24 08:06] LABS: Anion Gap 8 (5-15); BUN 13 mg/dL (7-18); BUN/Creat Ratio 18.7 RATIO (10-20); Calcium,Total 9.1 mg/dL (8.5-10.1); Chloride 103 mmol/L (98-107); EST Glomerular Filtration Rate 136 mL/min (>60); Est Glom Filt Rate - Afr Amer 165 mL/min (>60); Estimated Creatinine Clearance 145.89 ml/min; Glucose 108 mg/dL (74-106); Potassium 3.3 mmol/L (3.5-5.1); Sodium Level 135 mmol/L (136-145)
[2022-04-24] MEDS: Potassium Chloride Oral Tablet 20 MEQ 40 MEQ PO (09:11)
[2022-04-24 14:26] LABS: Bacteria 0 SEEN /hpf (None Seen); Mucous, Urine 0 SEEN /hpf (<or=2+); Red Blood Cells-Urine 0 SEEN /hpf (0-5); Squamous Epithelial Cells - UA 0 SEEN /hpf (0-5); White Blood Cells 0 SEEN /hpf (0-5)
[2022-04-24 14:32] LABS: Color, Urine Yellow (Yellow); Glucose, Dipstick Normal (Normal); Ketone-Dipstick 15 mg/dl (Negative); Leukocyte Esterase-Dipstick Negative /ul (Negative); Nitrite-Dipstick Negative (Negative); Occult Blood-Urine 10 /ul (Negative); Protein-Dipstick 15 mg/dl (Negative); Specific Gravity, Urine 1.015 (1.002-1.030); Urine Bilirubin Dipstick Negative (Negative); Urine Clarity Clear (Clear); Urine Urobilinogen 1 mg/dl (Normal)
[2022-04-25] VITALS (9 sets, daily range): BP systolic 126–140; BP diastolic 86–97; PULSE 74–98; RESP 16–18; TEMP 36.6–37.7; O2SAT 92–96
[2022-04-25 04:50] LABS: Anion Gap 7 (5-15); BUN 15 mg/dL (7-18); BUN/Creat Ratio 19.8 RATIO (10-20); Calcium,Total 9.2 mg/dL (8.5-10.1); Chloride 105 mmol/L (98-107); Creatinine, Serum 0.76 mg/dL (0.70-1.30); EST Glomerular Filtration Rate 123 mL/min (>60); Est Glom Filt Rate - Afr Amer 149 mL/min (>60); Estimated Creatinine Clearance 134.37 ml/min; Glucose 106 mg/dL (74-106); Magnesium 2.2 mg/dL (1.6-2.6); Potassium 3.4 mmol/L (3.5-5.1); Sodium Level 137 mmol/L (136-145)
[2022-04-25] MEDS: Ondansetron 8 MG Tablet PO (04:57)
[2022-04-25] MEDS: Acetaminophen 325 MG Tablet 650 MG PO (06:27)
--- NOTE | 2022-04-25 08:06 | PN.HOSP_ITS ---
Subjective Subjective Feels much better but still having some nausea and vomiting. States that he gets this way when he goes through withdrawal either forced to be going to present or precipitated withdrawal with Suboxone. He also gets that when his jaw locks up but states he gets that the jaw locking up when he gets dehydrated with withdrawal. Does not experience at other times nor ever had as a child. Objective Data Objective Data Vital Signs: Vital Signs Temp Pulse Resp BP Pulse Ox O2 Del Method O2 Flow Rate 37.7 C H 82 18 140/97 H 92 Room Air 2 04/25/22 03:40 04/25/22 07:00 04/25/22 03:40 04/25/22 03:40 04/25/22 03:40 04/25/22 03:40 04/25/22 03:00 Oxygen Flow Rate (L/min) 2 Oxygen Delivery Method Room Air Weight: 89.358 kg Body Mass Index (BMI) 28.0 Intake & Output: Intake and Output for Last 24 Hours 04/23/22 04/24/22 04/25/22 23:59 23:59 23:59 Intake Total 3100 / 3100 410 / 410 Output Total 2575 / 2575 650 / 1450 800 / 800 Balance 525 / 525 -240 / -1040 -800 / -800 Lab / Micro Data Result Diagrams: 04/24/22 06:15 04/25/22 03:56 Labs: Laboratory Results - last 24 hr 04/24/22 06:15: Sodium 135 L, Potassium 3.3 L, Chloride 103, Carbon Dioxide 24.0, Anion Gap 8, BUN 13, Creatinine 0.70, Estim Creat Clear Calc 145.89, Est GFR (MDRD) Af Amer 165, Est GFR (MDRD) Non-Af 136, BUN/Creatinine Ratio 18.7, Glucose 108 H, Calcium 9.1 04/24/22 14:15: Urine Color Yellow, Urine Clarity Clear, Urine pH 7.0, Ur Specific [place] 1.015, Urine Protein 15 H, Urine Glucose (UA) Normal, Urine Ketones 15 H, Urine Occult Blood 10 H, Urine Nitrite Negative, Urine Bilirubin Negative, Urine Urobilinogen 1 H, Ur Leukocyte Esterase Negative, Urine RBC 0 SEEN, Urine WBC 0 SEEN, Ur Squamous Epith Cells 0 SEEN, Urine Bacteria 0 SEEN, Urine Mucus 0 SEEN 04/25/22 03:56: Sodium 137, Potassium 3.4 L, Chloride 105, Carbon Dioxide 25.0, Anion Gap 7, BUN 15, Creatinine 0.76, Estim Creat Clear Calc 134.37, Est GFR (MDRD) Af Amer 149, Est GFR (MDRD) Non-Af 123, BUN/Creatinine Ratio 19.8, Glucose 106, Calcium 9.2, Magnesium 2.2 Micro: Microbiology 04/22/22 22:35 Blood Culture (Wb) - Left Foot Blood Culture - Preliminary No growth in 48 hours. 04/22/22 22:07 Blood Culture (Wb) - Anticubital Right Blood Culture - Preliminary No growth in 48 hours. 04/23/22 05:23 Mucosa - Nasopharyngeal Influenza Types A,B Direct FA (CECILIA) - Final 04/23/22 04:30 Vomitus Gastric Occult Blood - Final Occult Blood Positive 04/22/22 23:04 Nasal Secretion SARS-CoV-2 Antigen (Rapid) - Final Physical Exam Const alert and no apparent distress Constitutional Narrative: Much more talkative today. Patient's able to open his jaw properly and his speech is completely comprehensible. Patient expound upon a lot of about his history in regards to drug withdrawal drug treatment use of narcotics, imprisonment, his job in [employer] and so forth Resp normal respiratory effort Resp Narrative: Right lower lobe crackles Cardio regular rate, regular rhythm, S1 normal heart sound and S2 normal heart sound GI normal to inspection, nondistended, normoactive bowel sounds and soft to palpation Assessment & Plan Assessment/Plan (1) Opiate withdrawal: PLAN: Buprenorphine was discontinued on the because of his dystonia. It has been resumed but the patient is still writhing around. We will continue with that taper but also resume the other as needed medications to help with his other issues. (2) Syncope: QUALIFIERS: Syncope type: vasovagal syncope Qualified Code(s): R55 - Syncope and collapse PLAN: Vasovagal due to withdrawal, straining on the commode as well as his vomiting. EKG review showed normal sinus rhythm with no acute changes. Blood pressure is normal but patient did receive a liter of IV fluids. Is verify that the patient's personal items box was closed. Patient denied using any substances in the interim that he had been seen. (3) Intractable nausea and vomiting: PLAN: Ongoing As needed IM Compazine and Zofran. May be related with dystonia. (4) Dystonia: PLAN: Etiology: Could be NMS versus serotonin syndrome versus genetic predisposition. I asked the patient if he uses ecstasy, cocaine or methamphetamines, he says he does not. Patient was having jaw clench and drooling and was started on lorazepam . Patient noted improvement afterwards. Patient also stated that he gets this when he goes through precipitated withdrawal. Unclear if stressful event such as opiate withdrawal precipitate this dystonic reactions. Would recommend patient follow-up with neurology as outpatient as this has been a chronic problem. (5) Fever: PLAN: Going up over the past 24 hours urinalysis, urine culture. Chest x-ray as patient was vomiting and concern for potential aspiration. With the dystonia that the patient was experiencing. Depending on results, may initiate antibiotics. Was negative for COVID-19 and influenza a and B the and . Blood cultures pending from the PLAN: Plan Polysubstance abuse: Drug screen positive for cannabinoids MDMA and amphetamines. Patient, to maintain sobriety, will need to become completely sober if he wishes for this to succeed. Disposition: To be determined. Hold to be able to be discharged on the . Waiting on addiction medicine to see and facilitate program for him. Patient works so it may be intensive outpatient but will see what they ultimately come up to. Charges/Coding Visit Charges Inpatient E&M: 60919 Subs Hosp L2
[2022-04-25] MEDS: Pantoprazole Sodium 40 MG Tablet PO (09:43)
[2022-04-25] MEDS: Buprenorphine HCl 2 MG TAB.SUBL SL (09:43)
[2022-04-25] MEDS: Amox/Clavulanate 875 MG Tablet PO (16:51)
[2022-04-25] MEDS: Venlafaxine XR 150 MG Capsule PO (20:54)
[2022-04-26 03:00] VITALS: PULSE 72
[2022-04-26 04:00] VITALS: BP 128/95; PULSE 94; RESP 17; TEMP 36.6; O2SAT 95
[2022-04-26 04:30] VITALS: BP 130/95; PULSE 95; RESP 18; TEMP 36.6; O2SAT 95
[2022-04-26 07:00] VITALS: PULSE 69
--- NOTE | 2022-04-26 07:48 | DCINST_ITS ---
Discharge Instructions Diet Discharge Diet: No restrictions Activity Discharge Activity: Return to Normal Activity Dressing / Incision Call your doctor if you observe: Fever of 101 or Higher, Coldness, Increased Pain, Numbness or Tingling, Change in Color, Inability to urinate, Inability to have a bowel movement, Shortness of breath, Dizziness, Fainting spells, Swelling in the ankles, Chest pain, Prolonged hiccupping, Increased palpitations (irregular heartbeat), Calf discomfort and Uncontrolled pain Follow Up Care Test Results: Test results from this visit will be discussed in further detail at your follow- up appointment, if applicable. Discharge Plan Admission Admit Date/Time: 04/21/22 19:01 Primary Reason for Your Visit: Acute opioid withdrawal syndrome Attending Provider: Valdemar Downs Primary Care Provider: Care Physician,No Primary Consulting Providers: Henrique Nance ; Porfirio Saavedra Instructions Additional Instructions / Restrictions: Follow-up for outpatient substance use rehab in 2 to 3 days as scheduled. Discharge Orders/Prescriptions Prescriptions: New pantoprazole 40 mg Tablet,Delayed Release (Dr/Ec) 40 mg PO DAILY Qty: 30 0RF amoxicillin-pot clavulanate 875-125 mg Tablet 875 mg PO BIDCM Qty: 10 0RF Continued venlafaxine 75 mg capsule,extended release 24hr 150 mg PO DAILY Referrals / Follow Up: Lizbet Reaves DO [Med Staff - Consulting] - Within 1 Week Care Physician,No Primary [Primary Care Provider] - Disposition Disposition (needs filled in before D/C Order can be placed): Home, Self Care
--- NOTE | 2022-04-26 08:51 | DS.PCM_ITS ---
Providers Date of Admission: 04/21/22 Date of Discharge: 04/26/22 Primary Care Physician: No Primary Care Phys Reason For Visit: REQUESTING OPIATE DETOX SERVICES, OPIATE ADDICTION Diagnosis Discharge Diagnosis (1) Opiate withdrawal: Status: Acute Code(s): F11.23 - Opioid dependence with withdrawal (2) Syncope: Status: Acute Code(s): R55 - Syncope and collapse Qualifiers: Syncope type: vasovagal syncope Qualified Code(s): R55 - Syncope and collapse (3) Intractable nausea and vomiting: Status: Acute Code(s): R11.2 - Nausea with vomiting, unspecified (4) Dystonia: Status: Acute Code(s): G24.9 - Dystonia, unspecified (5) Fever: Status: Acute Code(s): R50.9 - Fever, unspecified Medications at Discharge Home Medications venlafaxine 75 mg capsule,extended release 24 hr 150 mg PO DAILY mood 04/21/22 amoxicillin 875 mg-potassium clavulanate 125 mg tablet 875 mg PO BIDCM #10 tabs 04/26/22 pantoprazole 40 mg tablet,delayed release 40 mg PO DAILY #30 tabs 04/26/22 Hospital Course Summary of Care Provided Hospital Course: This is 36-year-old gentleman with history of polysubstance use was admitted for medical stabilization for acute opioid withdrawal syndrome. Patient injects opioids daily unsure whether heroin or fentanyl constantly for since May 2021. His hospital course as mentioned below 1. Acute opioid withdrawal syndrome: Patient was admitted on the PCU for dystonia. Patient was started on buprenorphine based other supportive medication as per opioid medical stabilization order set. Patient's symptoms improved and he completed buprenorphine yesterday. Patient was seen and evaluated by 180 presentation manager and she was discharged straight to outpatient clinic. 2. Vasovagal syncope most likely due to withdrawal: Patient was dry heaving/nauseated and vomited on commode. 3. Dystonia: Unclear whether was opioid withdrawal syndrome related versus serotonin syndrome/NMS: Patient denied the use of ecstasy, cocaine or methamphetamine. He was on venlafaxine at home. Patient was having jaw clenching, drooling and was started on lorazepam 111/24. Patient had symptoms improvement. Patient did not had further dystonic reactions. Advised follow-up with neurology as an outpatient. 4. Fever for more than 24 hours, unclear source: Urine culture shows mixed gram-positive organism less than 1000 colonies. Patient tested negative for COVID-19, influenza A and B. Blood cultures negative for more than 48 hours. Chest x-ray was done 2 times and was negative for acute cardiopulmonary abnormality. Patient empirically started on Augmentin and discharged on 5 more days. 5. Chronic polysubstance use dependence and tolerance: Patient U tox was positive of cannabinoids, MDMA and amphetamine. Discharge medication reconciliation done. Discharge follow-up instructions completed. Discharge process discussed with the patient and all questions were answered to patient's satisfaction. Prescription sent to [facility] pharmacy. Follow-up with outpatient substance rehab clinic. Total time spent, exact 35 minutes on discharge meds reconciliation, examination, coordination of care with nurses and ancillary staff, review of imaging and blood test and discussion with the patient on follow-up instructions. Clinical Impression(s) from Imaging Studies Brain CT 04/22/22 11:51 IMPRESSION: No acute intracranial process identified. Electronically Signed: Elle Talavera MD at 12:51 EST , Chest X-Ray 04/22/22 22:10 IMPRESSION: Normal x-ray examination of the chest. Electronically Signed: Jt Albert MD at 22:24 EST , Chest X-Ray 04/24/22 06:50 IMPRESSION: No acute cardiopulmonary disease. Electronically Signed: Lj Dumont MD at 7:19 EST , Physical Exam Narrative Seen and examined. General: Alert, Oriented x3, Cooperative HEENT: Atraumatic, PERRLA, EOMI, Normocephalic Oral: No Gingival or Mucosal Lesions/ Ulcerations Neck: Supple, No JVD, Negative Carotid Bruits Lungs: Air entry diminished in bilateral lung bases. No crepitation/rhonchi Cardiovascular: Regular rate, Regular Rhythm, Normal S1, Normal S2, No murmurs Abdomen: Bowel Sounds Present, Soft, Non Tender, Non-Distended : No renal angle tenderness. No suprapubic tenderness. Extremities: No edema, Capillary Refill Less than 3 Seconds Skin: No rashes, No breakdown Musculoskeletal: No Tenderness to Palpation of Joints or Extremities Neurological: Cranial nerves II-XII grossly intact, DTR 2+/4 and Symmetrical, no abnormal involuntary movement, dystonia. Psych/Mental Status: Normal Affect, Appropriate. Weight / BMI Weight Weight: 197 lb Body Mass Index (BMI) 28.0 ABG / Lab / Microbiology Data Result Diagrams: 04/24/22 06:15 04/25/22 03:56 Microbiology: Microbiology 04/24/22 14:15 Urine, Random Urine Culture - Final Mixed Gram Positive Organisms 04/22/22 22:35 Blood Culture (Wb) - Left Foot Blood Culture - Preliminary No growth in 48 hours. 04/22/22 22:07 Blood Culture (Wb) - Anticubital Right Blood Culture - Preliminary No growth in 48 hours. 04/23/22 05:23 Mucosa - Nasopharyngeal Influenza Types A,B Direct FA (CECILIA) - Final 04/23/22 04:30 Vomitus Gastric Occult Blood - Final Occult Blood Positive 04/22/22 23:04 Nasal Secretion SARS-CoV-2 Antigen (Rapid) - Final D/C Instructions Discharge Diet: No restrictions Call your doctor if you observe: Fever of 101 or Higher, Coldness, Increased Pain, Numbness or Tingling, Change in Color, Inability to urinate, Inability to have a bowel movement, Shortness of breath, Dizziness, Fainting spells, Swelling in the ankles, Chest pain, Prolonged hiccupping, Increased palpitations (irregular heartbeat), Calf discomfort and Uncontrolled pain Meaningful Use Info Meaningful Use Diagnoses (Choose all that apply): None applicable Discharge Plan Admission Admit Date/Time: 04/21/22 19:01 Primary Reason for Your Visit: Acute opioid withdrawal syndrome Attending Provider: Valdemar Downs Primary Care Provider: Care Physician,No Primary Consulting Providers: Henrique Nance ; Porfirio Saavedra Instructions Additional Instructions / Restrictions: Follow-up for outpatient substance use rehab in 2 to 3 days as scheduled. Discharge Orders/Prescriptions Prescriptions: New pantoprazole 40 mg Tablet,Delayed Release (Dr/Ec) 40 mg PO DAILY Qty: 30 0RF amoxicillin-pot clavulanate 875-125 mg Tablet 875 mg PO BIDCM Qty: 10 0RF Continued venlafaxine 75 mg capsule,extended release 24hr 150 mg PO DAILY Referrals / Follow Up: Lizbet Reaves DO [Med Staff - Consulting] - Within 1 Week Care Physician,No Primary [Primary Care Provider] - Disposition Disposition (needs filled in before D/C Order can be placed): Home, Self Care Charges/Coding Visit Charges Inpatient E&M: 48622 Disch Hosp
[2022-04-26 09:10] VITALS: BP 133/96; PULSE 110; RESP 17; TEMP 36.8; O2SAT 97
[2022-04-26] MEDS: Pantoprazole Sodium 40 MG Tablet PO (09:14)
[2022-04-26] MEDS: Amox/Clavulanate 875 MG Tablet PO (09:14)
--- NOTE | 2022-04-26 10:10 | PHA.DC.MC ---
Pharmacy Service has performed discharge medication reconciliation and counseling for this patient. 1. AUGMENTIN 875 1T PO BID X 5 DAYS 2. PANTOPRAZOLE 40MG PO DAILY The patient's discharge medication list was reviewed for discrepancies and discrepancies were resolved. Home Medications venlafaxine 75 mg capsule,extended release 24 hr 150 mg PO DAILY mood 04/21/22 amoxicillin 875 mg-potassium clavulanate 125 mg tablet 875 mg PO BIDCM #10 tabs 04/26/22 pantoprazole 40 mg tablet,delayed release 40 mg PO DAILY #30 tabs 04/26/22 The patient was counseled on the following discharge medications and changes in medications for homegoing were reviewed. The Reason for Use, instructions for use, and potential side effects were reviewed for all new medications. The patient's questions regarding all of their medications were answered. The patient was able to verbally demonstrate an understanding of their discharge medications. Patient was counseled by student education specialistZakia.
== END 2022-04-26 11:44 | disposition home or self-care (01) | DRG 773 ==
LOC: ED 18:43 → MS3 19:40 → PCU 04-22 12:23
PROVIDERS: Hospitalist; Admitting Provider Internal Medicine; Emergency Provider Emergency Medicine; Visit Provider Internal Medicine
DX: F11.23 Opioid dependence with withdrawal (principal); F17.210 Nicotine dependence, cigarettes, uncomplicated; F19.10 Other psychoactive substance abuse, uncomplicated; G24.9 Dystonia, unspecified; R11.2 Nausea with vomiting, unspecified; R55 Syncope and collapse; F32.A Depression, unspecified; R50.9 Fever, unspecified
CPT/HCPCS: 36415; 70450; 71045; 80048; 80053; 80076; 80307; 81001; 82077; 82140; 82271; 82550; 82962; 83735; 84443; 84484; 85014; 85018; 85025; 87040; 87086; 87088; 87426; 87804; 93005; 94762; 99283; J7030; A4216; J2310; J2405

== ENCOUNTER → 2022-09-28 | Outpatient (CLI) | payer MEDICAID, SELFPAY ==
[2022-09-28 13:08] LABS: Bacteria 0 SEEN /hpf (None Seen); Mucous, Urine 0 SEEN /hpf (<or=2+); Red Blood Cells-Urine 0 SEEN /hpf (0-5); Squamous Epithelial Cells - UA 0 SEEN /hpf (0-5); White Blood Cells 0 SEEN /hpf (0-5)
[2022-09-28 13:18] LABS: Color, Urine Yellow (Yellow); Glucose, Dipstick Normal (Normal); Ketone-Dipstick 5 mg/dl (Negative); Leukocyte Esterase-Dipstick 25 /ul (Negative); Nitrite-Dipstick Negative (Negative); Occult Blood-Urine Negative /ul (Negative); Protein-Dipstick Negative (Negative); Urine Bilirubin Dipstick Negative (Negative); Urine Clarity Clear (Clear); Urine Urobilinogen Normal (Normal)
[2022-09-28 15:01] LABS: Chlamydia Trachomatis by PCR Negative (Negative); Neisserai gonorrhoeae by PCR Negative (Negative); Probe Check PASS; Sample Adequacy Control PASS; Specimen Processing Control PASS
== END | disposition home or self-care (01) ==
LOC: LABSPEC 12:58
PROVIDERS: Referring Provider Physician Assistant Surgical; Visit Provider Physician Assistant Surgical
DX: R30.0 Dysuria (principal)
CPT/HCPCS: 81001; 87086; 87088; 87491; 87591

== ENCOUNTER 2023-11-08 21:20 | Inpatient (IN) | payer MEDICAID, SELFPAY ==
[2023-11-08 20:59] VITALS: BP 139/111; PULSE 100; RESP 18; TEMP 38.1; O2SAT 96
--- NOTE | 2023-11-08 21:00 | PCM.HP.STD ---
HPI - General General Date of Admission: 11/08/23 Date of Service: 11/08/23 Chief Complaint: Opiate withdrawal HPI Narrative MAYITO TINOCO, is a 38 M who presented to [facility] on 11/08/2023 as a transfer from [facility] ED for opiate withdrawal. Patient seen at bedside on the floor shortly after arrival here. Per nursing staff, patient was quite nauseous and actively vomiting when he arrived. He did have an IV in place and was given a dose of IV Zofran at that time, and he was started on the Subutex taper with as needed medications per the opiate withdrawal order set. I saw him a short time after he had received these medications. He was sitting up comfortably in bed and making appropriate eye contact but only answering questions with short responses. Stated that he still felt nauseous but did feel a bit better since receiving those medications. Patient is an active IV fentanyl user and states he has gone through withdrawal in the hospital before and tolerated withdrawal medications well. I reviewed the [facility] ED provider note in [facility]. Patient presented to the ED there early this afternoon with nausea, vomiting and generalized illness. He was given IV Zofran 4 mg x 2, Reglan 10 mg x 1 and droperidol 0.625 mg x 1 apparently with no relief of symptoms. He then had a CT abdomen pelvis done to rule out obstruction and appendicitis and it was negative for these things. It did show mild thickening of the villanueva of the ascending colon of unclear etiology as well as significant stool in the rectosigmoid colon, was otherwise benign. CBC and CMP drawn there were unremarkable. Lipase was negative. Ethanol level was negative. UDS there was positive for fentanyl. Patient was then transferred to [facility] for admission for addiction medicine resources for opiate withdrawal. During my encounter, patient denies any fevers or chills. Denies any abdominal pain or discomfort. He has been having normal bowel movements and denies any diarrhea. Denies any history of abdominal issues or any family history of bowel disease. No other acute concerns at this time. [facility] Medical History (Updated 11/09/23 @ 00:[address] Fahad Pepe, DO) Heroin abuse Opiate withdrawal Mandible fracture Carpal tunnel syndrome, bilateral Anxiety Depression Asthma Drug abuse IV drug user Substance abuse Home Medications ?Medication ?Instructions ?Recorded ?Last Taken ?Type venlafaxine 75 mg capsule,extended 150 mg PO DAILY mood 04/21/22 04/21/22 History release 24 hr naltrexone microspheres 380 mg 380 mg IM QMONTH 09/28/22 Unknown History intramuscular suspension,extended release (Vivitrol) venlafaxine 150 mg 150 mg PO DAILY DEPRESSION 11/08/23 Unknown History capsule,extended release 24 hr Allergy/AdvReac Type Severity Reaction Status Date / Time No Known Allergies Allergy Verified 09/28/22 10:17 Social History Smoking Status: Current every day smoker tobacco type: cigarettes Smokeless tobacco user: chewing tobacco alcohol intake: never substance use type: opiates ROS Constitutional Constitutional: Reports fatigue; Denies chills, fever(s) or weakness Cardiovascular Cardiovascular: Denies chest pain Respiratory/Chest Respiratory/Chest: Denies shortness of breath at rest Gastrointestinal Gastrointestinal: Reports nausea and vomiting; Denies abdominal pain, constipation or diarrhea Genitourinary Genitourinary: Denies dysuria Musculoskeletal Musculoskeletal: Reports myalgias; Denies arthralgias Neurologic Neurologic: Denies confusion, dizziness, focal weakness or headache(s) Physical Exam Const alert, oriented x3, no apparent distress and average body habitus Constitutional Narrative: Younger male, sitting up in bed, appears mildly uncomfortable due to ongoing nausea, otherwise answering questions with short appropriate responses and in no acute distress. General Appearance: cooperative and comfortable HEENT normocephalic, head/scalp atraumatic, hearing grossly normal bilaterally and nasal mucous membranes and turbinates normal Eyes PERRL, EOMs intact bilaterally and conjunctivae normal Neck full ROM Chest inspection of chest normal Resp normal respiratory effort, normal air movement, no use of accessory muscles and clear to auscultation bilaterally Cardio regular rate, regular rhythm, no murmurs and peripheral pulses 2+ throughout GI normal to inspection, nondistended, normoactive bowel sounds, soft to palpation, non-tender and non-distended Back/Spine normal ROM Extremity normal to inspection, full ROM and no pedal edema Skin no rashes or lesions noted Neuro moves all extremities and no focal motor deficits Speech: speech normal Psych mental status grossly normal Results Lab / Micro Data 11/08/23 22:00 11/08/23 22:00 Assessment & Plan Assessment/Plan (1) Opiate withdrawal: (2) IV drug user: (3) Heroin abuse: (4) Inflammation of colonic mucosa: PLAN: Plan Patient is a 38-year-old male who presented to [facility] on 11/08/2023 as a transfer from [facility] ED for intractable nausea and vomiting with opiate withdrawal. 1. Opiate withdrawal with nausea and vomiting ? Admit under inpatient status to [facility]. Case management/addiction medicine consulted. Will start Subutex taper with as needed medications per opiate withdrawal order set. Notably has IM naltrexone monthly listed on med list but states he has not had this for a while. Suspect patient's nausea and vomiting is primarily due to opiate withdrawal, has p.o. Zofran ordered as needed for this. Notably does have IV in place, will be important for this to be removed if patient attempts to leave AMA. 2. Inflammation of ascending colon with constipation ? CT abdomen pelvis at outside hospital showed mild thickening of the villanueva of the ascending colon; per the radiologist, could be seen with mild colitis or peristalsis but neoplasm is not excluded and recommendation was for GI consultation for colonoscopy referral. Unclear etiology but patient notably has no abdominal pain or discomfort, no change in stools, no personal or family history of bowel issues and is younger in age. He does have a low-grade fever of unclear significance at this time. Will consult GI for further recommendations but will allow patient have a diet for now. 3. Depression/anxiety ? Stable. Continue home Effexor. DVT prophylaxis: Lovenox CODE STATUS: Full code, verified Expected disposition: Home, 2 to 3 days Total clinical time spent by myself addressing the patient's medical issues, reviewing all the data, and collaborating with patient's care team: 55 minutes. Charges/Coding Visit Charges Inpatient E&M: 54982 Init Hosp L2
[2023-11-08 21:17] VITALS: BMI 27.2
[2023-11-08] MEDS: Ondansetron 4 MG/2 ML Vial IV (21:43)
[2023-11-08 21:48] VITALS: BP 139/111; PULSE 100; RESP 18; TEMP 38.1; O2SAT 96
[2023-11-08] MEDS: Ketorolac 15 MG/ML Vial IV (21:48)
[2023-11-08] MEDS: 0.9% Saline Lock 10 ML Syringe IV ×2 (21:49→23:02)
[2023-11-08] MEDS: Buprenorphine HCl 2 MG TAB.SUBL SL (21:57)
[2023-11-08 22:10] LABS: Hematocrit 43.5 % (40-54); Hemoglobin 15.3 g/dL (13.0-16.5); Mean Corp Hgb Conc 35.2 g/dL (32-36); Mean Corpuscular Hgb 30.6 pg (27.0-32.0); Mean Platelet Vol. 8.5 fl (6.2-12.0); Platelet Count 431 K/mm3 (150-450); RBC Distribution Width CV 12.2 % (11.6-14.6); RBC Distribution Width SD 38.6 fl (35.1-43.9); White Blood Count 13.6 K/mm3 (4.4-11.0)
[2023-11-08 22:32] LABS: ALB/GLOB Ratio 1.1 RATIO (0.9-2.4); AST(SGOT) 17 U/L (15-37); Alanine Aminotransfer ALT/SGPT 29 U/L (16-61); Albumin, Serum 3.7 g/dL (3.2-5.0); Alkaline Phosphatase 86 U/L (45-117); Anion Gap 8 (5-15); BUN 8 mg/dL (7-18); BUN/Creat Ratio 7.8 RATIO (10-20); Chloride 109 mmol/L (98-107); Creatinine, Serum 1.03 mg/dL (0.70-1.30); EST Glomerular Filtration Rate 86 mL/min (>60); Est Glom Filt Rate - Afr Amer 104 mL/min (>60); Estimated Creatinine Clearance 94.08 ml/min; Globulin 3.5 g/dL (2.2-4.2); Glucose 119 mg/dL (74-106); Potassium 3.2 mmol/L (3.5-5.1); Protein, Total 7.2 g/dL (6.4-8.2); Sodium Level 139 mmol/L (136-145)
[2023-11-08] MEDS: Lactated Ringers 1,000 ML 999 ML IV (23:02)
[2023-11-08 23:15] LABS: Magnesium 1.7 mg/dL (1.6-2.6)
[2023-11-09] VITALS (7 sets, daily range): BP systolic 100–144; BP diastolic 52–93; PULSE 62–99; RESP 16–18; TEMP 36.6–37; O2SAT 92–98
[2023-11-09 00:06] LABS: Phosphorus 1.2 mg/dL (2.5-4.9)
[2023-11-09] MEDS: Potassium Chloride Oral Tablet 20 MEQ 40 MEQ PO ×2 (06:07→09:21)
[2023-11-09] MEDS: Buprenorphine HCl 2 MG TAB.SUBL SL ×3 (06:07→22:25)
[2023-11-09 07:05] LABS: Hemoglobin 14.3 g/dL (13.0-16.5); Mean Corpuscular Hgb 30.1 pg (27.0-32.0); Mean Corpuscular Volume 88.4 fL (80-94); Mean Platelet Vol. 8.6 fl (6.2-12.0); Platelet Count 388 K/mm3 (150-450); RBC Distribution Width CV 12.4 % (11.6-14.6); RBC Distribution Width SD 40.7 fl (35.1-43.9); Red Blood Count 4.75 M/mm3 (4.6-6.2); White Blood Count 12.5 K/mm3 (4.4-11.0)
[2023-11-09 07:43] LABS: Anion Gap 6 (5-15); BUN 10 mg/dL (7-18); BUN/Creat Ratio 12.1 RATIO (10-20); Calcium,Total 8.4 mg/dL (8.5-10.1); Chloride 108 mmol/L (98-107); Creatinine, Serum 0.82 mg/dL (0.70-1.30); EST Glomerular Filtration Rate 111 mL/min (>60); Est Glom Filt Rate - Afr Amer 134 mL/min (>60); Estimated Creatinine Clearance 118.17 ml/min; Glucose 112 mg/dL (74-106); Potassium 3.5 mmol/L (3.5-5.1); Sodium Level 138 mmol/L (136-145)
[2023-11-09 07:56] LABS: Phosphorus 2.3 mg/dL (2.5-4.9)
[2023-11-09] MEDS: Venlafaxine XR 150 MG Capsule PO (09:21)
[2023-11-09] MEDS: Enoxaparin 40 MG/0.4 ML Syringe SC (09:21)
[2023-11-09] MEDS: Na Biphos/Potassium Phosphate PACKET 1 PACKET PO ×3 (09:21→22:25)
--- NOTE | 2023-11-09 10:47 | ADDICTION ---
Met with pt to complete RAMP assessments. Pt reports that he started at [facility] for detox however they were only giving him comfort meds with no Subutex. Pt reports he was still very ill and decided he needed to come to [facility] for the RAMP program. Pt reports that he already has plans set up for outpatient treatment at [facility] in [place] as well as get the Vivitrol shot once he has an assessment there. He is not appropriate for the Vivitrol shot here due to his recent opiate use.
[2023-11-09] MEDS: hydrOXYzine PAM 25 MG Capsule 50 MG PO (14:16)
[2023-11-09] MEDS: Methocarbamol 750 MG Tablet PO (14:16)
--- NOTE | 2023-11-09 14:19 | CHAPLAIN ---
Type of Pastoral Visit _x__ Initial Visit ___ Follow-up Visit ___ On-call Visit ___ General Patient Visit ___ Spiritual Assessment ___ Family Conference ___ Bereavement ___ Rapid Response ___ Code Blue ___ Other (describe below) Pastoral Care Referral From _x__ Patient ___ Family ___ Nurse ___ Physician ___ Hvac Manager ___ Apprentice Plant Attendant ___ Other (describe below) Sacrament/Intervention _x__ Active listening ___ Anointing ___ Latter-Day ___ Bereavement ___ Communion _x__ Savi exploration ___ _x__ Life review _x__ Prayer ___ Reconciliation ___ Sacrament of Sick _x__ Supportive presence ___ Wedding ___ Other (describe below) Pastoral Comments patient has been seen before in previous admissions; pt is offered support and he begins by saying I'm not so good as I just heard some news; pt explains about an abdominal issue that will require a scope tomorrow; pt admits some fears; pt also speaks of his addiction difficulties and stopping the Vivitrol took me back to using drugs and I want to quit but I can't; pt has a SO that he claims is the one and she is always there for me and won't leave my side; pt had a job until recently and is worried about paying bills for self and his girlfriend; pt is asked about his relationship to God and savi practices; pt says I don't know about that anymore, I don't know if God is there; listening, prayers, and comfort given;
--- NOTE | 2023-11-09 16:24 | PN.HOSP_ITS ---
Reason for Visit Reason for Visit: Diagnoses Opioid abuse, uncomplicated (11/08/23) Opioid dependence with withdrawal (11/08/23) Other psychoactive substance use, unspecified, uncomplicated (11/08/23) Noninfective gastroenteritis and colitis, unspecified (11/08/23) Subjective Subjective Patient was seen and examined today, he does not appear to be anxious or nervous. Objective Data Objective Data Vital Signs: Vital Signs Temp Pulse Resp BP Pulse Ox O2 Del Method 97.9 F 92 18 113/78 98 Room Air 11/09/23 14:19 11/09/23 14:19 11/09/23 14:19 11/09/23 14:19 11/09/23 14:19 11/09/23 14:19 Oxygen Delivery Method Room Air Weight: 81.3 kg Body Mass Index (BMI) 27.2 Intake & Output: Intake and Output for Last 24 Hours 11/07/23 11/08/23 11/09/23 23:59 23:59 23:59 Intake Total 0 / 0 1050 / 1050 Output Total 300 / 300 Balance -300 / -300 1050 / 1050 Lab / Micro Data 11/09/23 06:38 11/09/23 06:38 Labs: Laboratory Results - last 24 hr 11/08/23 22:00: WBC 13.6 H, RBC 5.00, Hgb 15.3, Hct 43.5, MCV 87.0, MCH 30.6, MCHC 35.2, RDW Std Deviation 38.6, RDW Coeff of Corinne 12.2, Plt Count 431, MPV 8.5, Sodium 139, Potassium 3.2 L, Chloride 109 H, Carbon Dioxide 22.0, Anion Gap 8, BUN 8, Creatinine 1.03, Estim Creat Clear Calc 94.08, Est GFR (MDRD) Af Amer 104, Est GFR (MDRD) Non-Af 86, BUN/Creatinine Ratio 7.8 L, Glucose 119 H, Calcium 9.0, Phosphorus 1.2 L, Magnesium 1.7, Total Bilirubin 0.60, AST 17, ALT 29, Alkaline Phosphatase 86, Total Protein 7.2, Albumin 3.7, Globulin 3.5, Albumin/Globulin Ratio 1.1 11/09/23 06:38: WBC 12.5 H, RBC 4.75, Hgb 14.3, Hct 42.0, MCV 88.4, MCH 30.1, MCHC 34.0, RDW Std Deviation 40.7, RDW Coeff of Corinne 12.4, Plt Count 388, MPV 8.6, Sodium 138, Potassium 3.5, Chloride 108 H, Carbon Dioxide 24.0, Anion Gap 6, BUN 10, Creatinine 0.82, Estim Creat Clear Calc 118.17, Est GFR (MDRD) Af Amer 134, Est GFR (MDRD) Non-Af 111, BUN/Creatinine Ratio 12.1, Glucose 112 H, C alcium 8.4 L, Phosphorus 2.3 L Physical Exam Const alert, oriented x3, no apparent distress and healthy appearing General Appearance: cooperative, well kempt and well developed Orientation / Consciousness: awake, oriented to person, oriented to place and oriented to time HEENT normocephalic, head/scalp atraumatic and moist oral mucous membranes Eyes PERRL, EOMs intact bilaterally and conjunctivae normal Neck supple, no JVD, thyroid normal and no carotid bruits General: trachea midline Resp normal respiratory effort, no retractions, no use of accessory muscles and clear to auscultation bilaterally Auscultation: Negative for rales, rhonchi or wheezes Cardio regular rate, regular rhythm, S1 normal heart sound, S2 normal heart sound, no murmurs, no rub and no gallops GI normal to inspection, nondistended, normoactive bowel sounds, soft to palpation, non-tender and non-distended Extremity no clubbing, cyanosis or edema Skin no rashes or lesions noted General Skin Exam: no breakdown Neuro oriented x3, CN's II-XII intact bilaterally, moves all extremities, no focal motor deficits and no sensory deficits noted Sensorium / Orientation: awake and alert Speech: speech normal Psych affect normal Assessment & Plan Assessment/Plan (1) Heroin abuse: PLAN: Plan 1. Acute opioid withdrawal-continue medications #[address] scan showing thickening of the colonic wall-patient was seen by gastroenterology and they will proceed with colonoscopy tomorrow #3 chronic depression-patient is on Effexor Total clinical time spent by myself addressing patient's medical issues, reviewing all of his data, and collaborating with patient's care team: 35 minutes Charges/Coding Visit Charges Inpatient E&M: 56513 Subs Hosp L2
[2023-11-09] MEDS: Bisacodyl 5 MG Tablet 20 MG PO (16:44)
--- NOTE | 2023-11-09 18:39 | CON.PCM.GI_ITS ---
HPI Consult Data Date of Consult: 11/09/23 HPI Narrative Reason for Consultation: Abnormal CT scan HPI Narrative: MAYITO TINOCO, is a 38 M who presented to [facility] on 11/08/2023 as a transfer from [facility] ED for opiate withdrawal. Patient seen at bedside on the floor shortly after arrival here. Per nursing staff, patient was quite nauseous and actively vomiting when he arrived. He did have an IV in place and was given a dose of IV Zofran at that time, and he was started on the Subutex taper with as needed medications per the opiate withdrawal order set. I saw him a short time after he had received these medications. He was sitting up comfortably in bed and making appropriate eye contact but only answering questions with short responses. He stated that he still felt nauseous but did feel a bit better since receiving those medications. Patient is an active IV fentanyl user and states he has gone through withdrawal in the hospital before and tolerated withdrawal medications well. I reviewed the [facility] ED provider note in [facility]. Patient presented to the ED there early this afternoon with nausea, vomiting and generalized illness. He was given IV Zofran 4 mg x 2, Reglan 10 mg x 1 and droperidol 0.625 mg x 1 apparently with no relief of symptoms. He then had a CT abdomen pelvis done to rule out obstruction and appendicitis and it was negative for these things. It did show mild thickening of the villanueva of the ascending colon of unclear etiology as well as significant stool in the rectosigmoid colon, was otherwise benign. I was consulted for evaluation of his colonic abnormality. [facility] Medical History (Updated 11/09/23 @ 00:[address] Fahad Pepe, ) Heroin abuse Opiate withdrawal Mandible fracture Carpal tunnel syndrome, bilateral Anxiety Depression Asthma Drug abuse IV drug user Substance abuse Home Medications ?Medication ?Instructions ?Recorded ?Last Taken ?Type venlafaxine 75 mg capsule,extended 150 mg PO DAILY mood 04/21/22 04/21/22 History release 24 hr naltrexone microspheres 380 mg 380 mg IM QMONTH 09/28/22 Unknown History intramuscular suspension,extended release (Vivitrol) venlafaxine 150 mg 150 mg PO DAILY DEPRESSION 11/08/23 Unknown History capsule,extended release 24 hr Allergy/AdvReac Type Severity Reaction Status Date / Time No Known Allergies Allergy Verified 09/28/22 10:17 Social History Smoking Status: Current every day smoker tobacco type: cigarettes Smokeless tobacco user: chewing tobacco alcohol intake: never substance use type: opiates ROS Constitutional Constitutional: Reports fatigue; Denies chills, fever(s) or weakness Cardiovascular Cardiovascular: Denies chest pain Respiratory/Chest Respiratory/Chest: Denies shortness of breath at rest Gastrointestinal Gastrointestinal: Reports nausea and vomiting; Denies abdominal pain, constipation or diarrhea Genitourinary Genitourinary: Denies dysuria Musculoskeletal Musculoskeletal: Reports myalgias; Denies arthralgias Neurologic Neurologic: Denies confusion, dizziness, focal weakness or headache(s) Physical Exam Const alert, oriented x3, no apparent distress and healthy appearing General Appearance: cooperative, well kempt and well developed Orientation / Consciousness: awake, oriented to person, oriented to place and oriented to time HEENT normocephalic, head/scalp atraumatic and moist oral mucous membranes Eyes PERRL, EOMs intact bilaterally and conjunctivae normal Neck supple, no JVD, thyroid normal and no carotid bruits General: trachea midline Resp normal respiratory effort, no retractions, no use of accessory muscles and clear to auscultation bilaterally Auscultation: Negative for rales, rhonchi or wheezes Cardio regular rate, regular rhythm, S1 normal heart sound, S2 normal heart sound, no murmurs, no rub and no gallops GI normal to inspection, nondistended, normoactive bowel sounds, soft to palpation, non-tender and non-distended Extremity no clubbing, cyanosis or edema Skin no rashes or lesions noted General Skin Exam: no breakdown Neuro oriented x3, CN's II-XII intact bilaterally, moves all extremities, no focal motor deficits and no sensory deficits noted Sensorium / Orientation: awake and alert Speech: speech normal Psych affect normal Lab / Micro Data 11/09/23 06:38 11/09/23 06:38 Labs: Laboratory Results - last 24 hr 11/08/23 22:00: WBC 13.6 H, RBC 5.00, Hgb 15.3, Hct 43.5, MCV 87.0, MCH 30.6, MCHC 35.2, RDW Std Deviation 38.6, RDW Coeff of Corinne 12.2, Plt Count 431, MPV 8.5, Sodium 139, Potassium 3.2 L, Chloride 109 H, Carbon Dioxide 22.0, Anion Gap 8, BUN 8, Creatinine 1.03, Estim Creat Clear Calc 94.08, Est GFR (MDRD) Af Amer 104, Est GFR (MDRD) Non-Af 86, BUN/Creatinine Ratio 7.8 L, Glucose 119 H, Calcium 9.0, Phosphorus 1.2 L, Magnesium 1.7, Total Bilirubin 0.60, AST 17, ALT 29, Alkaline Phosphatase 86, Total Protein 7.2, Albumin 3.7, Globulin 3.5, Albumin/Globulin Ratio 1.1 11/09/23 06:38: WBC 12.5 H, RBC 4.75, Hgb 14.3, Hct 42.0, MCV 88.4, MCH 30.1, MCHC 34.0, RDW Std Deviation 40.7, RDW Coeff of Corinne 12.4, Plt Count 388, MPV 8.6, Sodium 138, Potassium 3.5, Chloride 108 H, Carbon Dioxide 24.0, Anion Gap 6, BUN 10, Creatinine 0.82, Estim Creat Clear Calc 118.17, Est GFR (MDRD) Af Amer 134, Est GFR (MDRD) Non-Af 111, BUN/Creatinine Ratio 12.1, Glucose 112 H, C alcium 8.4 L, Phosphorus 2.3 L Assessment & Plan Assessment/Plan (1) Opiate withdrawal: (2) IV drug user: (3) Heroin abuse: (4) Inflammation of colonic mucosa: PLAN: Plan Patient is a 38-year-old male who presented to [facility] on 11/08/2023 as a transfer from [facility] ED for intractable nausea and vomiting with opiate withdrawal and also discovered to have abnormality in his proximal ascending colon. He does not know his family history and does not know if there is any history of colon malignancy.. 1. Inflammation of ascending colon with constipation ? CT abdomen pelvis at outside hospital showed mild thickening of the villanueva of the ascending colon; per the radiologist, could be seen with mild colitis or peristalsis but neoplasm. He will undergo colonoscopy to evaluate his lower GI tract. He was explained alternatives, risk, benefits including outstanding bleeding, infection, sepsis, perforation, need for emergent urgent . He will have an ASA of 3. Charges/Coding Visit Charges Inpatient E&M: 28695 Init Hosp L3
[2023-11-09] MEDS: Polyethylene Glycol 3350 BOWEL PREP PO (19:34)
[2023-11-10] VITALS (13 sets, daily range): BP systolic 92–126; BP diastolic 44–84; PULSE 73–97; RESP 12–18; TEMP 36.1–37.1; O2SAT 94–99
--- NOTE | 2023-11-10 01:42 | EKG12_ITS ---
Test Reason : AM EKG Blood Pressure : / mmHG Vent. Rate : 066 BPM Atrial Rate : 066 BPM P-R Int : 164 ms QRS Dur : 072 ms QT Int : 396 ms P-R-T Axes : 052 055 030 degrees QTc Int : 415 ms Normal sinus rhythm Normal ECG When compared with ECG of 22-APR-2022 09:34, QT has shortened Confirmed by Tip Chahal ([id number]), purchasing expeditor JAMIL TIJERINA ([id number]) on 11/10/2023 9:50:10 AM Referred By: Fahad Pepe Confirmed By:Tip Chahal
[2023-11-10] MEDS: cloNIDine HCl 0.1 MG Tablet PO (03:07)
[2023-11-10] MEDS: Buprenorphine HCl 2 MG TAB.SUBL SL ×3 (06:01→22:03)
[2023-11-10 07:22] LABS: Absolute Lymphocyte Count 1.79 X10^3/uL (0.83-4.51); Absolute Neutrophil Count 3.8 X10^3/uL (2.0-7.7); Basophil# 0.06 X10^3/uL; Basophil% 0.9 % (0-1); Eosinophil# 0.15 X10^3/uL; Eosinophils% 2.4 % (0-5); Hematocrit 40.4 % (40-54); Hemoglobin 13.5 g/dL (13.0-16.5); Lymphocyte # 1.79 X10^3/ul (0.83-4.51); Lymphocyte % 28.1 % (19-41); Mean Corp Hgb Conc 33.4 g/dL (32-36); Mean Corpuscular Hgb 30.3 pg (27.0-32.0); Mean Corpuscular Volume 90.6 fL (80-94); Mean Platelet Vol. 8.8 fl (6.2-12.0); Monocyte# 0.56 X10^3/uL; Monocyte% 8.8 % (0-10); NRBC Flagged by Analyzer 0 % (0-5); Neutrophil # 3.79 X10^3/uL (2.7-7.7); Neutrophil % 59.5 % (47-70); Platelet Count 310 K/mm3 (150-450); RBC Distribution Width CV 12.5 % (11.6-14.6); RBC Distribution Width SD 41.1 fl (35.1-43.9); Red Blood Count 4.46 M/mm3 (4.6-6.2); White Blood Count 6.4 K/mm3 (4.4-11.0)
--- NOTE | 2023-11-10 10:50 | PRE.ANES_ITS ---
ASA Classification* ASA Classification ASA Classification: 2 and E Assessment & Plan Anesthesia* Anesthesia Assessment Anesthesia Assessment: Discussed sedation and/or anesthesia options, risks, benefits, and alternatives with patient/parents/legal guardian/POA. Questions invited. The patient/parents/legal guardian/POA seems to understand and agrees to proceed with anesthesia plan. Reviewed the physical assessment, medical history, allergy history and patient home medications list prior to surgery/procedure/anesthetic and documented any changes. Performed airway and anesthesia risk assessments. Anesthesia Type Anesthesia Type: MAC Pre-Assessment Diagnosis/Proposed Procedure Planned Operative Procedure(s): 3cm Anesthesia History Anesthesia History - pecan mallow dipper: Anesthesia History - pecan mallow dipper Hx Hospitalization Any Problems With Anesthesia No 11/09/23 19:45 Cholinesterase deficiency No 11/09/23 19:45 You/Your Family Experience No 11/09/23 19:45 fever (hyperthermia) with Relationship Recent Exposure to Contagious No 11/09/23 19:45 Disease Does patient have nerve No 11/09/23 19:45 stimulator Patient instructed to have device shut off --Does patient have Pacemaker or ICD? When Was Last Pacemaker Check QUESTION #4 FULL TEXT: You/Your Family Experience fever (hyperthermia) with Anesthesia Last Oral Intake Last Oral intake: Last Oral Intake NPO since Meds taken in AM with sips of water? Meds patient instructed to take am of surgery PONV PONV - pecan mallow dipper: PONV - pecan mallow dipper Female HX of Motion Sickness HX of N/V After Surgery Non-Smoker Duration of Surgery greater than 60 minutes Number of Risk Factors PONV Score Height & Weight Height & Weight: Anesthesia: Height & Weight Height 5 ft 8 in 11/08/23 21:17 Weight: 81.3 kg 11/08/23 21:17 Body Mass Index (BMI) 27.2 11/08/23 21:17 Respiratory Assessment Respiratory Assessment - pecan mallow dipper: Respiratory Tract Infection Hx - pecan mallow dipper Hx Respiratory Tract Infection No 11/09/23 19:45 STOP Sleep Apnea STOP Sleep Apnea - pecan mallow dipper: STOP Sleep Apnea - pecan mallow dipper Hx Hypertension No 11/08/23 21:18 Hx Sleep Apnea No 11/08/23 21:18 CPAP BIPAP Do you snore loudly (louder No 11/08/23 21:18 than talking or can be heard Do you often feel tired/ No 11/08/23 21:18 fatigued/ sleepy during daytime? Has anyone observed you stop No 11/08/23 21:18 breathing during sleep? STOP Results Negative 11/08/23 21:18 QUESTION #5 FULL TEXT : Do you snore loudly (louder than talking or can be heard through closed doors)? Tobacco Use History Tobacco Use History - pecan mallow dipper: Tobacco Use History - pecan mallow dipper Tobacco Use Smoking Status Current every day smoker 11/10/23 05:55 Hx Tobacco Use Yes 11/08/23 21:18 Years Smoking Packs Smoked per Day 1 11/08/23 21:18 Smoking Cessation Date was within the last 15 years Hx Smoking Cessation Date Hx Smoking Cessation No 11/08/23 21:18 Counseling Hematologic Medial History Hematologic Hx - pecan mallow dipper: Hematologic Medical Hx - hander in Hx of Blood Transfusion No 11/08/23 21:18 Hx of Transfusion in last 3 No 11/08/23 21:18 Months Date of Last Transfusion (if within last 3 months) Ever experience any problems No 11/08/23 21:18 with transfusion(s)? Specify any problems Hx of Preganancy in last 3 N/A 11/08/23 21:18 Months Nurse Filling Out Transfusion TMELLOR 11/08/23 21:18 & Questions: Date: 11/08/23 11/08/23 21:18 Time: 21:20 11/08/23 21:18 Patient unable to answer at this time (ie. confused, unrespo /Reproduction History /Reproductive History - pecan mallow dipper: /Reproductive Hx- pecan mallow dipper Hx Now Gestational Age (in weeks): EDC: Hx Hx Para Hx Section SAB Active Medications Active Medications: Current Medications Generic Name Dose Route Start Last Admin Trade Name Freq PRN Reason Stop Dose Admin Acetaminophen 650 mg 11/08/23 21:26 Acetaminophen 325 Mg Tablet PO Q6H PRN PRN Pain 1-10 Or Fever>100.7 Buprenorphine HCl 2 mg 11/08/23 22:00 11/10/23 06:01 Buprenorphine Hcl 2 Mg Tab.Subl SL 11/11/23 21:59 2 mg Q8H ETHEL Administration Taper Clonidine 0.1 mg 11/08/23 21:26 11/10/23 03:07 Clonidine Hcl 0.1 Mg Tablet PO 0.1 mg Q8H PRN PRN Administration RESTLESSNESS Dicyclomine HCl 20 mg 11/08/23 21:26 Dicyclomine 10 Mg Capsule PO Q6H PRN PRN Abdominal Discomfort Enoxaparin Sodium 40 mg 11/09/23 10:00 11/10/23 07:24 Enoxaparin 40 Mg/0.4 Ml Syringe SC Not Given DAILY ETHEL Gabapentin 300 mg 11/08/23 21:26 Gabapentin 300 Mg Capsule PO Q8H PRN PRN moderate to severe anxiety Hydroxyzine Pamoate 50 mg 11/08/23 21:26 11/09/23 14:16 Hydroxyzine Malia 25 Mg Capsule PO 50 mg Q6H PRN PRN Administration mild anxiety Sodium Chloride 250 mls @ 15 mls/hr 11/08/23 21:22 IV .[id number] PRN Saline Flush Lactated Ringer's 1,000 mls @ 15 mls/hr 11/10/23 10:30 IV .Q48H [facility] Loperamide HCl 2 mg 11/08/23 21:26 Loperamide 2 Mg Capsule PO Q4H PRN PRN Loose Stools Methocarbamol 750 mg 11/08/23 21:26 11/09/23 14:16 Methocarbamol 750 Mg Tablet PO 750 mg Q6H PRN PRN Administration MUSCLE SPASM Ondansetron HCl 8 mg 11/08/23 21:26 Ondansetron 8 Mg Tablet PO Q8H PRN PRN NAUSEA Potassium Phos/Sodium Phos 1 packet 11/09/23 07:15 11/10/23 05:06 Na Biphos/Potassium Phosphate Packet PO Not Given TID [facility] Senna 1 tablet 11/09/23 10:00 11/10/23 07:24 Senna Tablet PO Not Given BID [facility] Sodium Chloride 10 - 40 ml 11/08/23 21:22 11/08/23 23:02 0.9% Saline Lock 10 Ml Syringe IV 10 ml UD PRN Administration SALINE FLUSH Trazodone HCl 100 mg 11/08/23 21:26 Trazodone 100 Mg Tablet PO QHS PRN PRN INSOMNIA Venlafaxine HCl 225 mg 11/10/23 08:00 11/10/23 08:46 Venlafaxine Xr 75 Mg Capsule [facility] Focused Assessment* Temperature: 98.6 F Pulse Rate: 97 Blood Pressure: 106/65 Respiratory Rate: 16 Pulse Ox: 97 Airway Assessment Mallampati Score: II Focused Labs Anesthesia Preop lab: CBC WBC 6.4 K/mm3 (4.4-11.0) 11/10/23 06:39 RBC 4.46 M/mm3 (4.6-6.2) L 11/10/23 06:39 Hgb 13.5 g/dL (13.0-16.5) 11/10/23 06:39 Hct 40.4 % (40-54) 11/10/23 06:39 Plt Count 310 K/mm3 (150-450) 11/10/23 06:39 CHEMISTRY Potassium 3.5 mmol/L (3.5-5.1) 11/09/23 06:38 Sodium 138 mmol/L (136-145) 11/09/23 06:38 Magnesium 1.7 mg/dL (1.6-2.6) 11/08/23 22:00 Phosphorus 2.3 mg/dL (2.5-4.9) L 11/09/23 06:38 BUN 10 mg/dL (7-18) 11/09/23 06:38 Creatinine 0.82 mg/dL (0.70-1.30) 11/09/23 06:38 Glucose 112 mg/dL (74-106) H 11/09/23 06:38 TSH 0.64 uIU/mL (0.358-3.74) 04/22/22 22:07 COAG Review of Systems (Anesthesia) ROS Narrative System reviewed and no additional complaints, except as documented. [facility] Medical History Heroin abuse Opiate withdrawal Mandible fracture Carpal tunnel syndrome, bilateral Anxiety Depression Asthma Drug abuse IV drug user Substance abuse Home Medications ?Medication ?Instructions ?Recorded ?Last Taken ?Type venlafaxine 75 mg capsule,extended 150 mg PO DAILY mood 04/21/22 04/21/22 History release 24 hr naltrexone microspheres 380 mg 380 mg IM QMONTH 09/28/22 Unknown History intramuscular suspension,extended release (Vivitrol) venlafaxine 150 mg 150 mg PO DAILY DEPRESSION 11/08/23 Unknown History capsule,extended release 24 hr Allergy/AdvReac Type Severity Reaction Status Date / Time No Known Allergies Allergy Verified 09/28/22 10:17 Social History Smoking Status: Current every day smoker tobacco type: cigarettes Smokeless tobacco user: chewing tobacco alcohol intake: never substance use type: opiates
--- NOTE | 2023-11-10 12:07 | OP.CCLET_ITS ---
11/10/2023 No Primary Care Physician Re : Colonoscopy procedure for Gerardo Forbes Dear Care Physician This procedure was performed on October. My impressions and recommendations are as follows: Impressions : - The entire examined colon is normal on direct and retroflexion views. - No specimens collected. Recommendations : - [facility]. - Resume regular diet. - Continue present medications. - Repeat colonoscopy in 10 years for screening purposes. My findings are described in the full procedure note, which is enclosed. If I can be of further assistance, please feel free to contact me at . Sincerely, Lang Montilla, 11/10/2023 12:06:40 PM This report has been signed electronically.
--- NOTE | 2023-11-10 12:07 | OP.COLON_ITS ---
Patient Name: Gerardo Forbes Procedure Date: 11/10/2023 11:31 AM Date of : 1985 Age: 38 Procedure: Colonoscopy Indications: Abnormal CT of the GI tract Providers: Lang Montilla DO Referring MD: Fahad Pepe Do Medicines: Monitored Anesthesia Care Patient Profile: This is a 38 year old male. Refer to note in patient chart for documentation of history and physical. Last Colonoscopy: none. The patient's first colonoscopy is today. Complications: No immediate complications. Procedure: Pre-Anesthesia Assessment: - Prior to the procedure, a History and Physical was performed, and patient medications and allergies were reviewed. The patient is competent. The risks and benefits of the procedure and the sedation options and risks were discussed with the patient. All questions were answered and informed consent was obtained. Patient identification and proposed procedure were verified by the physician in the pre-procedure area. Mental Status Examination: alert and oriented. Airway Examination: normal oropharyngeal airway and neck mobility. Respiratory Examination: clear to auscultation. CV Examination: normal. Prophylactic Antibiotics: The patient does not require prophylactic antibiotics. Prior Anticoagulants: The patient has taken no anticoagulant or antiplatelet agents. ASA Grade Assessment: II - A patient with mild systemic disease. After reviewing the risks and benefits, the patient was deemed in satisfactory condition to undergo the procedure. The anesthesia plan was to use monitored anesthesia care (MAC). Immediately prior to administration of medications, the patient was re-assessed for adequacy to receive sedatives. The heart rate, respiratory rate, oxygen saturations, blood pressure, adequacy of pulmonary ventilation, and response to care were monitored throughout the procedure. The physical status of the patient was re-assessed after the procedure. After I obtained informed consent, the scope was passed under direct vision. Throughout the procedure, the patient's blood pressure, pulse, and oxygen saturations were monitored continuously. The Colonoscope was introduced through the anus and advanced to the cecum, identified by appendiceal orifice and ileocecal valve. The colonoscopy was performed without difficulty. The patient tolerated the procedure well. The quality of the bowel preparation was adequate. Scope In: 11:50:30 AM Scope Withdrawal Time 0 hours 8 minutes 13 seconds Scope Out: 12:03:21 PM Total Procedure Duration Time 0 hours 12 minutes 51 seconds Findings: The perianal and digital rectal examinations were normal. The entire examined colon appeared normal on direct and retroflexion views. Impression: - The entire examined colon is normal on direct and retroflexion views. - No specimens collected. Recommendation: - [facility]. - Resume regular diet. - Continue present medications. - Repeat colonoscopy in 10 years for screening purposes. Procedure Code(s): --- Professional --- 43253, Colonoscopy, flexible; diagnostic, including collection of specimen(s) by brushing or washing, when performed (separate procedure) CPT copyright 2021 [employer]. All rights reserved. The codes documented in this report are preliminary and upon cdl b driver review may be revised to meet current compliance requirements. Lang Montilla DO 11/10/2023 12:06:40 PM This report has been signed electronically. Number of Addenda: 0 Note Initiated On: 11/10/2023 11:31 AM
--- NOTE | 2023-11-10 12:12 | PCM.POST.ANE ---
Anesthesia: Postop Eval I Current Vital Signs Temperature: 97.2 F Pulse Rate: 78 Blood Pressure: 92/48 Respiratory Rate: 14 Pulse Ox: 94 Oxygen Delivery Method: Nasal Cannula Oxygen Flow Rate (L/min): 2 Assessment Airway patent: Yes Spontaneous unlabored respirations: Yes Mental status: Asleep nausea: No Vomiting: No Anesthesia Complication: No Fluid Hydration Crystalloid volume administer (ml): 200 Total IV fluid infused: 200 Progress Note Anesthesia document: Postop Eval 1 completed: Yes
--- NOTE | 2023-11-10 13:41 | PCM.POSTANE2 ---
Anesthesia Postop Eval I Sum Postop Eval Completion status Anesthesia document: Postop Eval 1 completed: Yes Anesthesia Postop Eval I Summary Anesthesia Postop Eval I Summary: Anesthesia Postop Eval I: Assessment Summary Airway patent Yes 11/10/23 12:21 [email or web address] Spontaneous unlabored Yes 11/10/23 12:21 [email or web address] respirations Mental status Asleep 11/10/23 12:21 [email or web address] nausea No 11/10/23 12:21 [email or web address] Vomiting No 11/10/23 12:21 [email or web address] Anesthesia Postop Eval I: Fluid Summary Crystalloid volume administer 200 11/10/23 12:22 [email or web address] (ml) Colloids volume administered ( ml) Blood Product volume administered (ml) Total IV fluid infused 200 11/10/23 12:22 [email or web address] Anesthesia Postop Eval I: Summary Notes Anesthesia Complication No 11/10/23 12:21 [email or web address] Anesthesia Complication Comment: Post-operative progress note Anesthesia: Postop Eval II Evaluation Mental status: Awake Pain Level: 0 nausea: No Vomiting: No Complications Anesthesia Complication: No
[2023-11-10] MEDS: Na Biphos/Potassium Phosphate PACKET 1 PACKET PO ×2 (14:39→22:04)
--- NOTE | 2023-11-10 15:27 | CHAPLAIN ---
Type of Pastoral Visit ___ Initial Visit _x__ Follow-up Visit ___ On-call Visit ___ General Patient Visit ___ Spiritual Assessment ___ Family Conference ___ Bereavement ___ Rapid Response ___ Code Blue ___ Other (describe below) Pastoral Care Referral From _x__ Patient ___ Family ___ Nurse ___ Physician ___ Audio Visual Aide ___ Powerhouse Mechanic ___ Other (describe below) Sacrament/Intervention _x__ Active listening ___ Anointing ___ Worship ___ Bereavement ___ Communion _x__ Savi exploration ___ _x__ Life review _x__ Prayer ___ Reconciliation ___ Sacrament of Sick _x__ Supportive presence ___ Wedding ___ Other (describe below) Pastoral Comments follow up to patient who had testing/scope done earlier; pt had good results and is relieved; pt is very talkative and expresses himself about purpose/meaning in his life, how to overcome his addiction issues, finding true love and happiness in life, and letting God in his life; pt given time to express, process, consider, and dream about what he hopes for and needs; prayer and presence welcomed; pt expresses gratitude for the time given to him
--- NOTE | 2023-11-10 16:33 | PN.HOSP_ITS ---
Reason for Visit Reason for Visit: Diagnoses Opioid abuse, uncomplicated (11/08/23) Opioid dependence with withdrawal (11/08/23) Other psychoactive substance use, unspecified, uncomplicated (11/08/23) Noninfective gastroenteritis and colitis, unspecified (11/08/23) Subjective Subjective Patient was seen and examined today, he underwent a colonoscopy today which was normal. 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 Patient has elected to follow-up in an outpatient program for further detox services. Objective Data Objective Data Vital Signs: Vital Signs Temp Pulse Resp BP Pulse Ox O2 Del Method O2 Flow Rate 98.2 F 85 18 107/66 96 Room Air 2 11/10/23 14:45 11/10/23 14:45 11/10/23 14:45 11/10/23 14:45 11/10/23 14:45 11/10/23 14:45 11/10/23 12:27 Oxygen Flow Rate (L/min) 2 Oxygen Delivery Method Room Air Weight: 81.3 kg Body Mass Index (BMI) 27.2 Intake & Output: Intake and Output for Last 24 Hours 11/08/23 11/09/23 11/10/23 23:59 23:59 23:59 Intake Total 0 / 0 1050 / 3050 2100 / 2100 Output Total 300 / 300 Balance -300 / -300 1050 / 3050 2100 / 2100 Lab / Micro Data 11/10/23 06:39 11/09/23 06:38 Labs: Laboratory Results - last 24 hr 11/10/23 06:39: WBC 6.4, RBC 4.46 L, Hgb 13.5, Hct 40.4, MCV 90.6, MCH 30.3, MCHC 33.4, RDW Std Deviation 41.1, RDW Coeff of Corinne 12.5, Plt Count 310, MPV 8.8, Immature Gran % (Auto) 0.300, Neut % (Auto) 59.5, Lymph % (Auto) 28.1, [place] % (Auto) 8.8, Eos % (Auto) 2.4, Baso % (Auto) 0.9, Absolute Neuts (auto) 3.8, Absolute Lymphs (auto) 1.79, Nucleated RBC % 0 Physical Exam Const alert, oriented x3, no apparent distress and healthy appearing General Appearance: cooperative, well kempt and well developed Orientation / Consciousness: awake, oriented to person, oriented to place and oriented to time HEENT normocephalic and moist oral mucous membranes Eyes PERRL, EOMs intact bilaterally and conjunctivae normal Neck supple, no JVD, thyroid normal and no carotid bruits General: trachea midline Resp normal respiratory effort, no retractions, no use of accessory muscles and clear to auscultation bilaterally Auscultation: Negative for rales, rhonchi or wheezes Cardio regular rate, regular rhythm, no murmurs, no rub and no gallops GI normal to inspection, nondistended, normoactive bowel sounds, soft to palpation, non-tender and non-distended Extremity no clubbing, cyanosis or edema Skin no rashes or lesions noted General Skin Exam: no breakdown Neuro oriented x3, CN's II-XII intact bilaterally, no focal motor deficits and no sensory deficits noted Sensorium / Orientation: awake and alert Speech: speech normal Psych affect normal Assessment & Plan Assessment/Plan (1) Opiate withdrawal: (2) Heroin abuse: PLAN: Plan 1. Acute opioid withdrawal-continue medications #2 chronic depression-patient is on Effexor Total clinical time spent by myself addressing patient's medical issues, reviewing all of his data, and collaborating with patient's care team: 25 minutes Charges/Coding Visit Charges Inpatient E&M: 99075 [facility] Hosp L1
[2023-11-10] MEDS: traZODone 100 MG Tablet PO (22:08)
[2023-11-11 05:30] VITALS: BP 94/58; PULSE 76; RESP 15; TEMP 36.7; O2SAT 95
[2023-11-11] MEDS: Na Biphos/Potassium Phosphate PACKET 1 PACKET PO (05:35)
[2023-11-11] MEDS: Buprenorphine HCl 2 MG TAB.SUBL SL (09:27)
[2023-11-11] MEDS: Venlafaxine XR 75 MG Capsule 225 MG PO (09:28)
[2023-11-11 09:33] VITALS: BP 96/84; PULSE 89; RESP 18; TEMP 36.6; O2SAT 99
--- NOTE | 2023-11-11 10:14 | DCINST_ITS ---
Discharge Instructions Diet Discharge Diet: No restrictions Activity Discharge Activity: Return to Normal Activity Weight Bearing Status: Full weight bearing Follow Up Care Test Results: Test results from this visit will be discussed in further detail at your follow- up appointment, if applicable. Discharge Plan Admission Admit Date/Time: 11/08/23 21:20 Primary Reason for Your Visit: opiate detox Attending Provider: Henrique Nance Primary Care Provider: Care Physician,No Primary Consulting Providers: Fahad Pepe Instructions Additional Instructions / Restrictions: follow up with outpatient detox services as directed Discharge Orders/Prescriptions Prescriptions: Continued venlafaxine 75 mg capsule,extended release 24hr 150 mg PO DAILY venlafaxine 150 mg capsule,extended release 24hr 150 mg PO DAILY Discontinued Vivitrol 380 mg suspension,extended rel recon 380 mg IM QMONTH Referrals / Follow Up: Care Physician,No Primary [Primary Care Provider] - Disposition Disposition (needs filled in before D/C Order can be placed): Home, Self Care
--- NOTE | 2023-11-11 10:18 | DS.PCM_ITS ---
Providers Date of Admission: 11/08/23 Date of Discharge: 11/11/23 Primary Care Physician: Kayli Primary Care Phys Consultations 11/09/23 03:48 Consult: Gastroenterology Routine Consulting Provider: Davian Sequeira Reason for Consult: ascending colon wall thickening of unclear etiology EMERGENT Consult: No MD Notified: Yes Date Notified: 11/09/23 Time Notified: 07:00 Method of Notification: Text Reason For Visit: OPIOID DETOX Diagnosis Discharge Diagnosis (1) Opiate withdrawal: Status: Acute Code(s): F11.23 - Opioid dependence with withdrawal (2) Heroin abuse: Status: Acute Code(s): F11.10 - Opioid abuse, uncomplicated Plan 1. Acute opioid withdrawal-continue medications #2 chronic depression-patient is on Effexor Total clinical time spent by myself addressing patient's medical issues, reviewing all of his data, and collaborating with patient's care team: 25 minutes Medications at Discharge Home Medications venlafaxine 75 mg capsule,extended release 24 hr 150 mg PO DAILY mood 04/21/22 venlafaxine 150 mg capsule,extended release 24 hr 150 mg PO DAILY DEPRESSION 11/08/23 Hospital Course Operations None Procedures Colonoscopy Summary of Care Provided Minutes Spent on Discharge: 30 Hospital Course: This 38-year-old white male was transferred from a tertiary hospital where he was undergoing treatment for opiate detox, patient was directly admitted to [place] [address], he was transferred due to the fact he was dissatisfied with the detox program in [place]-they were not administering Subutex to the patient. Prior to his admission to the detox unit in [place], patient had been seen in the emergency room there for nausea and vomiting, the CT of the abdomen was obtained which shows thickening of the bowel wall. Patient was admitted to [place] [address], orders were entered using the opiate detox order set, and the patient was seen in consultation by gastroenterology who performed a colonoscopy which showed no abnormality whatsoever. Patient was seen by addiction healthcare social worker and he requested to do an outpatient detox program. On 11/11/2023, patient was seen and examined: On examination he appeared in good health and spirits. Vital signs as documented. Skin warm and dry and without overt rashes. Neck without JVD, neck was supple, trachea midline, thyroid was normal. Lungs clear bilaterally, normal air movement was noted. Heart exam notable for regular rhythm, normal sounds and absence of murmurs, rubs or gallops. Abdomen unremarkable and without evidence of organomegaly, masses, or abdominal aortic enlargement. Bowel sounds are present, abdomen is not distended. Extremities nonedematous, no cyanosis was noted, no clubbing was noted. Neuro: Cranial nerves II through XII are grossly intact, no focal motor deficits were noted, sensation to light touch and pinprick intact, motor exam 5/5 throughout. Psych: Patient is alert and oriented x3, he does not appear anxious or depressed, he does not appear agitated. Patient appears stable for discharge home on 11/11/2023. Weight / BMI Weight Weight: 81.3 kg Body Mass Index (BMI) 27.2 ABG / Lab / Microbiology Data 11/10/23 06:39 11/09/23 06:38 D/C Instructions Discharge Diet: No restrictions Weight Bearing Status: Full weight bearing Meaningful Use Info Meaningful Use Meaningful Use Diagnoses (Choose all that apply): None applicable Ischemic Stroke Statin Dosing Therapy Reference: STATIN DOSE THERAPY REFERENCE: * Patients > 75 years receive moderate or high dose statin therapy. * Patients 75 years or YOUNGER should receive HIGH intensity statin dose unless contraindicated. You will be required to document reason for non-treatment if statin daily dose does not meet guidelines. HIGH DOSE STATIN THERAPY DAILY Atorvastatin > than or = to 40 mg Rosuvastatin > than or = to 20 mg Amlodipine + Atorvastatin > than or = to 2.5/40 mg Ezetimibe + Simvastatin 10/80 mg Simvastatin 80mg Discharge Plan Admission Admit Date/Time: 11/08/23 21:20 Primary Reason for Your Visit: opiate detox Attending Provider: Henrique Nance Primary Care Provider: Care Physician,Kayli Primary Consulting Providers: Fahad Pepe Instructions Additional Instructions / Restrictions: follow up with outpatient detox services as directed Discharge Orders/Prescriptions Prescriptions: Continued venlafaxine 75 mg capsule,extended release 24hr 150 mg PO DAILY venlafaxine 150 mg capsule,extended release 24hr 150 mg PO DAILY Discontinued Vivitrol 380 mg suspension,extended rel recon 380 mg IM QMONTH Referrals / Follow Up: Care Physician,No Primary [Primary Care Provider] - Disposition Disposition (needs filled in before D/C Order can be placed): Home, Self Care Charges/Coding Visit Charges Inpatient E&M: 40851 [facility] Hosp
== END 2023-11-11 15:55 | disposition home or self-care (01) | DRG 897 ==
PROVIDERS: Anesthesiology; Internal Medicine Gastroenterology; Admitting Provider Hospitalist; Referring Provider Hospitalist; Visit Provider Internal Medicine
PROC: 0DJD8ZZ Inspection of Lower Intestinal Tract, Via Natural or Artificial Opening Endoscopic (ICD-10-PCS; CPT 45378; principal; 2023-11-10 11:25)
DX: F11.23 Opioid dependence with withdrawal (principal); F17.210 Nicotine dependence, cigarettes, uncomplicated; F32.A Depression, unspecified; K59.00 Constipation, unspecified; F41.9 Anxiety disorder, unspecified; K52.9 Noninfective gastroenteritis and colitis, unspecified
CPT/HCPCS: 36415; 80048; 80053; 83735; 84100; 85025; 85027; 93005; J7120; A4216; J2405

== ENCOUNTER 2024-09-01 10:11 | Emergency (ER) | payer MEDICAID, SELFPAY ==
[2024-09-01 10:11] VITALS: PULSE 110; RESP 20; TEMP 37.4; O2SAT 100
[2024-09-01 10:15] VITALS: BMI 26.9
--- NOTE | 2024-09-01 10:31 | EKG12_ITS ---
Test Reason : SUBSTANCE ABUSE Blood Pressure : */* mmHG Vent. Rate : 99 BPM Atrial Rate : 99 BPM P-R Int : 158 ms QRS Dur : 66 ms QT Int : 354 ms P-R-T Axes : 67 20 24 degrees QTcB Int : 454 ms Normal sinus rhythm Normal ECG Confirmed by SEPIDEH NEGRETE, RAFAEL ([id number]), make up editor JAMIL TIJERINA ([id number]) on 09/03/2024 5:59:08 AM Referred By: Confirmed By: RAFAEL BUNN MD
--- NOTE | 2024-09-01 10:45 | EDS_ITS ---
HPI History of Present Illness Chief Complaint: Substance Abuse Narrative Narrative: Chief complaint and HPI: 39-year-old male with past medical history of IV drug abuse with heroin presents for evaluation of opiate withdrawal. Patient states that he has been on Vivitrol injections monthly up until 2 months ago. He states that 4 days ago he used IV heroin. Patient states he went to the clinic yesterday and received his Vivitrol injection. He states shortly after he started to withdraw from opiates. He states that started with anxiety, muscle aches, restlessness, yawning, sweating it is now turned into nausea, and vomiting. Patient states he has tried Zofran at home with little relief. He states that he is not interested in admission for opiate detox. He states he just wants symptom control and discharged home. He states this feels like his similar withdrawals. Was asymptomatic prior to receiving the injection. Review of systems: See HPI Medications: As listed on the chart Allergies: As listed on the chart PFSH: Per chart Vital signs: As listed on the chart. Reviewed. Physical exam: Gen: A&O x3, restless, holding emesis bag Head: Normocephalic, atraumatic Eyes: No sclera icterus, conjunctiva clear, PERRL, EOMI ENT: Dry mucous membranes Neck: Trachea midline, No JVD CV: tachycardic, regular rhythm, no murmurs, no peripheral edema Resp: Lungs CTA BL, no w/r/c GI: Abd soft, non-distended, non-tender, no r/r/g Musc: Full ROM, no deformity Skin: Sweating, dry, multiple tattoos Neuro: Alert, oriented, grossly intact, sensation intact Psych: Cooperative [facility] Medical History Heroin abuse Opiate withdrawal Mandible fracture Carpal tunnel syndrome, bilateral Anxiety Depression Asthma Drug abuse IV drug user Substance abuse Home Medications ?Medication ?Instructions ?Recorded ?Last Taken ?Type venlafaxine 75 mg capsule,extended 150 mg PO DAILY moo d 04/21/22 04/21/22 History release 24 hr venlafaxine 150 mg 150 mg PO DAILY DEPRESSION 0 11/08/23 Unknown History capsule,extended release 24 hr Allergy/AdvReac Type Severity Reaction Status Date / Time No Known Allergies Allergy Verified 09/28/22 10:17 Social History Smoking Status: Current every day smoker tobacco type: cigarettes Smokeless tobacco user: chewing tobacco alcohol intake: never substance use type: opiates EXAM Physical Exam Const Vital Signs: 09/01/24 10:11 09/01/24 11:09 09/01/24 12:38 Temperature 99.3 F H Temperature Source Temporal Pulse Rate 110 H 75 65 Respiratory Rate 20 H 19 H 19 H Blood Pressure 140/93 H 139/89 H Blood Pressure Mean 108 105 Pulse Ox 100 100 93 Oxygen Delivery Method Room Air Room Air Room Air 09/01/24 13:00 Temperature Temperature Source Pulse Rate 75 Respiratory Rate 17 Blood Pressure 139/89 H Blood Pressure Mean 105 Pulse Ox 100 Oxygen Delivery Method Room Air MDM MDM MDM Narrative Medical decision making narrative: 39-year-old male with past medical history of IV drug abuse with heroin presents for evaluation of opiate withdrawal. Patient states that he has been on Vivitrol injections monthly up until 2 months ago. He states that 4 days ago he used IV heroin. He received a Vivitrol injection yesterday and now is an active opiate withdrawal. Feels like similar episodes. States he wants symptom control and does not want to be admitted. Has tried Zofran with little relief. On presentation, patient is restless and sweaty. He is tachycardic. Differential diagnosis includes but is not limited to opiate withdrawal, electrolyte a bnormality, LORI, substance intoxication. Prior to medication being given, EKG was obtained. This is personally reviewed and interpreted by me, ED physician. EKG has artifact secondary to patient's restlessness. Heart rate 99. Normal sinus rhythm with a QTc of 454. This is mildly elevated. Will be careful with QTc prolonging medications. However given patient's symptoms, NS bolus, Reglan, clonidine, Tylenol ordered. Basic labs ordered with urine drug screen and alcohol level. CBC with a leukocytosis of 18.1 as well as hemoconcentration with a hemoglobin of 16.9. I think this is likely reactive from his nausea and vomiting and suspected dehydration. Patient denies any infectious type symptoms. BMP is positive for dehydration with low bicarb and anion gap. No LORI. Anion gap is likely secondary to his nausea and vomiting. Do not suspect DKA despite his mild hyperglycemia 146. Another NS bolus ordered. Ethanol level unremarkable. On reevaluation, fluids are still running. Patient is sleeping comfortably. Tachycardia has resolved. After patient received all medication and fluids, his symptoms have improved. He was able to sleep here in the emergency department. His tachycardia has resolved. No emesis. Restlessness and anxiety have resolved. Patient was given the option of admission for detox versus discharge home with antinausea medication. He elected to discharge home. He was told to follow-up with his PCP as well as the Vivitrol clinic. Return precautions were explained. He confirmed understanding the plan. Patient was discharged home. He was given a prescription for Zofran. Urine drug screen had not been obtained however I do not think that this is necessary anymore therefore patient will be discharged without it. Impression: 1. Acute opioid withdrawal secondary to Vivitrol injection 2. History of IV heroin abuse 3. Nausea and vomiting 4. Dehydration secondary to above Lab Data Labs: Laboratory Results - last 24 hr 09/01/24 10:52 WBC 18.1 H RBC 5.46 Hgb 16.9 H Hct 46.7 MCV 85.5 MCH 31.0 MCHC 36.2 H RDW Std Deviation 37.0 RDW Coeff of Corinne 11.9 Plt Count 445 MPV 9.0 Immature Gran % (Auto) 0.400 Neut % (Auto) 89.4 H Lymph % (Auto) 5.6 L [place] % (Auto) 4.3 Eos % (Auto) 0.0 Baso % (Auto) 0.3 Absolute Neuts (auto) 16.1 H Absolute Lymphs (auto) 1.01 Nucleated RBC % 0 Sodium 141 Potassium 3.8 Chloride 105 Carbon Dioxide 17.9 L Anion Gap 18 H BUN 9 Creatinine 1.06 Estim Creat Clear Calc 93.56 Est GFR (MDRD) Non-Af 92 BUN/Creatinine Ratio 8.2 L Glucose 146 H Calcium 10.2 Ethyl Alcohol < 10.1 Discharge Plan Triage Chief Complaint: Substance Abuse ED Provider: Chemo Dunlap Dx/Rx/DC Orders Prescriptions: No Action venlafaxine 75 mg capsule,extended release 24hr 150 mg PO DAILY venlafaxine 150 mg capsule,extended release 24hr 150 mg PO DAILY Primary Care Provider: Natasha Luciano FIXTURE MAKER Referrals: Care Physician,No Primary [Non-Staff] - Print Language: Cook Islander
[2024-09-01] MEDS: 0.9% Normal Saline (1000mL) 1,000 ML 1000 ML IV (10:59)
[2024-09-01] MEDS: Metoclopramide 10 MG/2 ML Vial IV (11:01)
[2024-09-01] MEDS: cloNIDine HCl 0.1 MG Tablet PO (11:07)
[2024-09-01 11:09] VITALS: BP 140/93; PULSE 75; RESP 19; O2SAT 100
--- NOTE | 2024-09-01 11:14 | ED.RN ---
PT IS ONLY ANSERING THI NURSES QUESTIONS BY VAGUELY SHAKING HIS HED YES OR NO. UNABLE TO ASSESS FULLY WITH MENTAL HEALTH. PT HAS ALREADY HAD ASSESSMENT FROM DR COULTER. PER S/O WITH PT SHE STATES THEY ARE IN A PROGRAM FOR HIS DETOX FROM OPIOTE USE, THEIR YOUNG DAUGHTER IS PRESENT AND THEY ASKED IN TRIAGE NOT TO SPEAK OF THIS IN FRONT OF DAUGHTER. S/O TOOK DAUGHTER TO VNDING MACHINE SO I ATTEMTPED TO GET MY DOCUMENTATION DONE BUT PT WANTS TO BE LEFT ALONE TO SLEEP. THIS NURSE WILL FOLLOW U WITH DR COULTER AND THE PT'S S/O WHE SHE RETURNS. SHE DENIED RAMP PROGRAM TO THIS NURSE ND STATES HE IS IN A PROGRAM WE CAME JUST TO GET SOME MEDS TO GET HIM BY HE WANTS TO LEAVE AND GO HOME AND NOT STAY
[2024-09-01 11:15] LABS: Alcohol, Blood (Medical)-Serum < 10.1 mg/dL (<=10.0); Anion Gap 18 (5-15); BUN 9 mg/dL (4-19); BUN/Creat Ratio 8.2 RATIO (10-20); Calcium,Total 10.2 mg/dL (7.6-11.0); Carbon Dioxide 17.9 mmol/L (21.0-32.0); Chloride 105 mmol/L (98-108); Creatinine, Serum 1.06 mg/dL (0.70-1.20); EST Glomerular Filtration Rate 92 (>60); Estimated Creatinine Clearance 93.56 ml/min (50-250); Glucose 146 mg/dL (70-99); Potassium 3.8 mmol/L (3.3-5.1); Sodium Level 141 mmol/L (133-145)
[2024-09-01 11:18] LABS: Absolute Lymphocyte Count 1.01 X10^3/uL (0.83-4.51); Absolute Neutrophil Count 16.1 X10^3/uL (2.0-7.7); Basophil# 0.06 X10^3/uL; Basophil% 0.3 % (0-1); Hematocrit 46.7 % (40-54); Hemoglobin 16.9 g/dL (13.0-16.5); Lymphocyte # 1.01 X10^3/ul (0.83-4.51); Lymphocyte % 5.6 % (19-41); Mean Corp Hgb Conc 36.2 g/dL (32-36); Mean Corpuscular Volume 85.5 fL (80-94); Monocyte# 0.77 X10^3/uL; Monocyte% 4.3 % (0-10); NRBC Flagged by Analyzer 0 % (0-5); Neutrophil # 16.13 X10^3/uL (2.7-7.7); Neutrophil % 89.4 % (47-70); Platelet Count 445 K/mm3 (150-450); RBC Distribution Width CV 11.9 % (11.6-14.6); Red Blood Count 5.46 M/mm3 (4.6-6.2); White Blood Count 18.1 K/mm3 (4.4-11.0)
[2024-09-01] MEDS: Acetaminophen 500 MG Tablet 1000 MG PO (11:40)
--- NOTE | 2024-09-01 12:15 | CM.ED ---
Social Work Date of referral: 09/01/2024 Reason for referral: Opioid withdrawal Referred by: Social work identification layup worker presented to patient's room in an attempt to see if any support and/or resources are needed. Patient sleeping. An adult woman and a little girl were at patient's bedside and denied the need for any assistance at this time. Steffany Mobley, SPECIAL DELIVERY CLERK, CLAM SHOVEL OPERATOR
[2024-09-01] MEDS: 0.9% Normal Saline (1000mL) 1,000 ML 999 ML IV (12:27)
[2024-09-01 12:38] VITALS: BP 139/89; PULSE 65; RESP 19; O2SAT 93
[2024-09-01 13:00] VITALS: BP 139/89; PULSE 75; RESP 17; O2SAT 100
[2024-09-01] MEDS: Ondansetron 4 MG/2 ML Vial IV (13:26)
[2024-09-01 13:51] VITALS: BP 148/102; PULSE 85; RESP 22; TEMP 36.6; O2SAT 96
== END 2024-09-01 13:55 | disposition home or self-care (01) ==
PROVIDERS: Emergency Provider Surgery; Visit Provider Surgery
DX: F11.23 Opioid dependence with withdrawal (principal); E86.0 Dehydration; R11.2 Nausea with vomiting, unspecified; F41.9 Anxiety disorder, unspecified; F32.A Depression, unspecified; F17.220 Nicotine dependence, chewing tobacco, uncomplicated; F17.210 Nicotine dependence, cigarettes, uncomplicated; Z79.899 Other long term (current) drug therapy
CPT/HCPCS: 80048; 82077; 85025; 93005; 96361; 96374; 96375; 99284; A4216; J2405

== ENCOUNTER 2024-09-03 19:05 | Emergency (ER) | payer MEDICAID, SELFPAY ==
[2024-09-03 19:07] VITALS: BP 170/119; PULSE 89; RESP 22; TEMP 36.6; O2SAT 97; BMI 27.5
--- NOTE | 2024-09-03 20:09 | EDS_ITS ---
HPI History of Present Illness Chief Complaint: Substance Abuse [facility] Medical History Heroin abuse Opiate withdrawal Mandible fracture Carpal tunnel syndrome, bilateral Anxiety Depression Asthma Drug abuse IV drug user Substance abuse Home Medications ?Medication ?Instructions ?Recorded ?Last Taken ?Type venlafaxine 75 mg capsule,extended 150 mg PO DAILY moo d 04/21/22 04/21/22 History release 24 hr venlafaxine 150 mg 150 mg PO DAILY DEPRESSION 0 11/08/23 Unknown History capsule,extended release 24 hr bupropion HCl 100 mg tablet,12 hr 100 mg PO DAILY 12/21 Unknown History sustained-release nicotine 14 mg/24 hr daily 1 patch topical DAILY 09/03 Unknown History transdermal patch ondansetron 4 mg disintegrating 4 mg PO Q8H PRN PRN Na usea #10 tabs 09/03/24 Unknown Rx tablet Allergy/AdvReac Type Severity Reaction Status Date / Time No Known Allergies Allergy Verified 09/28/22 10:17 Social History Smoking Status: Former smoker Smokeless tobacco user: chewing tobacco alcohol intake: never substance use type: opiates EXAM Physical Exam Const Vital Signs: 09/03/24 19:07 09/03/24 21:00 09/03/24 21:50 Temperature 97.9 F Temperature Source Temporal Pulse Rate 89 53 L 97 Respiratory Rate 22 H 18 18 Blood Pressure 170/119 H Blood Pressure Mean 136 Pulse Ox 97 95 97 Oxygen Delivery Method Room Air Room Air Room Air [facility] Narrative Medical decision making narrative: HISTORY OF PRESENT ILLNESS: Chief complaint: Opiate detox 39-year-old male here for heroin detox. He complains of nausea and diaphoresis. Notes he last used heroin 8 days ago. Notes he got up in control shot 4 days ago. States he is interested in gabapentin and marijuana detoxification. REVIEW OF SYSTEMS: Pertinent positives: Nausea, diaphoresis Pertinent negatives: Chest pain PHYSICAL EXAM: Nursing triage notes reviewed, Vital signs reviewed Constitutional: please see mdm HENT: MMM Eyes: Pupils equal round and reactive to light, Extraocular muscles intact Neck: No stridor, no JVD, full neck ROM Lungs: Clear to auscultation, No wheezing or rales. No increased work of breathing, no conversational dyspnea, no accessory muscle use, no nasal flaring. No respiratory distress noted Heart: Regular rate and rhythm, No murmurs, No rubs and No gallops, 2+ distal pulses (radial, femoral, posterior tibial) in all extremities Abdomen: Soft, there is no tenderness, rigidity, rebound or guarding, no obvious peritoneal signs, no palpable pulsatile abdominal masses, no auscultated abdominal bruit : No CVAT Extremities: No edema Neuro: No new focal neurological deficits, cranial nerves II through XII intact, 5/5 strength in all present extremities. Intact sensation to light touch in all present extremities, 2+ reflexes bilateral patella tendons. Skin: No rash or lesions noted MEDICAL DECISION MAKING: Chief Complaint: please see HPI External records reviewed: Reviewed prior ED visit Factors affecting care: opiate abuse Social determinants of health: Polysubstance abuse History obtained from others: none Consults: Hospitalist (Dr. Ramirez) MDM Narrative: The patient was initially hypertensive, afebrile nontoxic-appearing. Exam witho ut focal abdominal maladies including peritoneal signs Obtain medical clearance labs. ALL IMAGES (IF OBTAINED) HAVE BEEN PERSONALLY REVIEWED AND INTERPRETED BY MYSELF. CBC showed no leukocytosis suggestive admission, no anemia or thrombocytopenia BMP showed mild hypokalemia likely secondary to vomiting no sign of LORI Urine tox screen negative Serum alcohol negative Given patient has been opiate free per his report for 8 days and his COWS score (2) is low I do not suspect he is suffering from acute opiate withdrawal. As such he does not require admission for opiate detoxification. Discussed case with hospitalist who agreed the patient is at [place] criteria for admission at this time. The patient and/or family, caregivers express understanding. The patient and/or family, caregivers agrees with the plan. Shared decision making: I will have a discussion with the patient and or visitors regarding risk/benefits of further testing or admission. They will be made aware of of the risk/benefits inherent in this decision they will be given the opportunity to voice understanding. Total critical care time today provided was at least 0 minutes. This excludes separately billable procedures. Critical care time (if documented) is secondary to the patient having high probability of clinically significant/life threatening deterioration in the patient's condition which required my urgent intervention. Impression: 1. Acute nausea from 2. History of opiate abuse Dispo: Discharge home This note was generated with [employer] dictation software. It may contain incorrect words, spelling, and punctuation that were not noted in review of the chart prior to signing. Lab Data Labs: Laboratory Results - last 24 hr 09/03/24 09/03/24 20:30 20:36 WBC 10.8 RBC 5.18 Hgb 16.0 Hct 44.9 MCV 86.7 MCH 30.9 MCHC 35.6 RDW Std Deviation 38.3 RDW Coeff of Corinne 12.1 Plt Count 375 MPV 8.7 Immature Gran % (Auto) 0.300 Neut % (Auto) 78.7 H Lymph % (Auto) 15.4 L Gaston % (Auto) 5.0 Eos % (Auto) 0.1 Baso % (Auto) 0.5 Absolute Neuts (auto) 8.5 H Absolute Lymphs (auto) 1.66 Nucleated RBC % 0 Sodium 141 Potassium 2.9 L Chloride 102 Carbon Dioxide 23.7 Anion Gap 16 H BUN 9 Creatinine 1.02 Estim Creat Clear Calc 97.23 Est GFR (MDRD) Non-Af 96 BUN/Creatinine Ratio 9.3 L Glucose 103 H Calcium 9.7 Urine Opiates Screen NEGATIVE U Buprenorphine Qual NEGATIVE Ur Oxycodone Screen NEGATIVE Urine Methadone Screen NEGATIVE Urine Fentanyl Screen PRESUMPTIVE POSITIVE Ur Barbiturates Screen NEGATIVE Ur Phencyclidine Scrn NEGATIVE Ur Amphetamines Screen NEGATIVE U Benzodiazepines Scrn NEGATIVE Urine Cocaine Screen NEGATIVE U Cannabinoids Screen PRESUMPTIVE POSITIVE Ethyl Alcohol < 10.1 Discharge Plan Triage Chief Complaint: Substance Abuse ED Provider: Alexsander Mckenna Dx/Rx/DC Orders Clinical Impression: Opiate abuse, episodic, Cannabis abuse Instructions: Addiction Disease, Addiction Recovery Counseling Prescriptions: New ondansetron 4 mg tablet,disintegrating 4 mg PO Q8H PRN PRN (Reason: Nausea) Qty: 10 0RF No Action venlafaxine 75 mg capsule,extended release 24hr 150 mg PO DAILY bupropion HCl 100 mg tablet sustained-release 12 hr 100 mg PO DAILY nicotine 14 mg/24 hr patch 24 hour 1 patch topical DAILY venlafaxine 150 mg capsule,extended release 24hr 150 mg PO DAILY Primary Care Provider: Natasha Luciano NP Referrals: Natasha Luciano NP [Other] Activity Restrictions/Additional Instructions: Thank you for trusting us with your care today! Your labs were reassuring. Your potassium level was slightly low. This was replaced with oral potassium. Please take Zofran as needed for nausea vomiting control at home Please take Tylenol (2 pills, 650 mg), ibuprofen (2 pills, 400 mg) every 6 hours as needed for pain and fever control. Please return to the emergency department if your symptoms change or worsen. Please follow with your primary care physician for further outpatient evaluation and management. Print Language: Telugu Disposition Disposition: Home, Self Care
--- NOTE | 2024-09-03 20:36 | HP.PCM.HOS_ITS ---
HPI - General General Date of Admission: 09/03/24 Date of Service: 09/03/24 Chief Complaint: Heroin Abuse. HPI Narrative MAYITO TINOCO, is a 39 M with a past medical history of who presents [facility] Medical History Heroin abuse Opiate withdrawal Mandible fracture Carpal tunnel syndrome, bilateral Anxiety Depression Asthma Drug abuse IV drug user Substance abuse Home Medications ?Medication ?Instructions ?Recorded ?Last Taken ?Type venlafaxine 75 mg capsule,extended 150 mg PO DAILY moo d 04/21/22 04/21/22 History release 24 hr venlafaxine 150 mg 150 mg PO DAILY DEPRESSION 0 11/08/23 Unknown History capsule,extended release 24 hr ondansetron 4 mg disintegrating 4 mg PO Q8H PRN PRN Na usea #10 tabs 09/01/24 Unknown Rx tablet Allergy/AdvReac Type Severity Reaction Status Date / Time No Known Allergies Allergy Verified 09/28/22 10:17 Social History Smoking Status: Current every day smoker tobacco type: cigarettes Smokeless tobacco user: chewing tobacco alcohol intake: never substance use type: opiates Vital Signs Vital Signs Vital Signs: 09/03/24 19:07 Temperature 97.9 F Temperature Source Temporal Pulse Rate 89 Respiratory Rate 22 H Blood Pressure 170/119 H Blood Pressure Mean 136 Pulse Ox 97 Oxygen Delivery Method Room Air Weight Weight: 186 lb 3.2 oz Body Mass Index (BMI) 27.5
[2024-09-03 20:44] LABS: Absolute Lymphocyte Count 1.66 X10^3/uL (0.83-4.51); Absolute Neutrophil Count 8.5 X10^3/uL (2.0-7.7); Basophil# 0.05 X10^3/uL; Basophil% 0.5 % (0-1); Eosinophil# 0.01 X10^3/uL; Eosinophils% 0.1 % (0-5); Hematocrit 44.9 % (40-54); Lymphocyte # 1.66 X10^3/ul (0.83-4.51); Lymphocyte % 15.4 % (19-41); Mean Corp Hgb Conc 35.6 g/dL (32-36); Mean Corpuscular Hgb 30.9 pg (27.0-32.0); Mean Corpuscular Volume 86.7 fL (80-94); Mean Platelet Vol. 8.7 fl (6.2-12.0); Monocyte# 0.54 X10^3/uL; NRBC Flagged by Analyzer 0 % (0-5); Neutrophil # 8.48 X10^3/uL (2.7-7.7); Neutrophil % 78.7 % (47-70); Platelet Count 375 K/mm3 (150-450); RBC Distribution Width CV 12.1 % (11.6-14.6); RBC Distribution Width SD 38.3 fl (35.1-43.9); Red Blood Count 5.18 M/mm3 (4.6-6.2); White Blood Count 10.8 K/mm3 (4.4-11.0)
[2024-09-03] MEDS: 0.9% Normal Saline (1000mL) 1,000 ML 999 ML IV (20:56)
[2024-09-03] MEDS: Ondansetron 4 MG/2 ML Vial IV (20:56)
[2024-09-03] MEDS: cloNIDine HCl 0.2 MG Tablet PO (20:56)
[2024-09-03 21:00] VITALS: PULSE 53; RESP 18; O2SAT 95
[2024-09-03 21:03] LABS: Anion Gap 16 (5-15); BUN 9 mg/dL (4-19); BUN/Creat Ratio 9.3 RATIO (10-20); Calcium,Total 9.7 mg/dL (7.6-11.0); Carbon Dioxide 23.7 mmol/L (21.0-32.0); Chloride 102 mmol/L (98-108); Creatinine, Serum 1.02 mg/dL (0.70-1.20); EST Glomerular Filtration Rate 96 (>60); Estimated Creatinine Clearance 97.23 ml/min (50-250); Glucose 103 mg/dL (70-99); Potassium 2.9 mmol/L (3.3-5.1); Sodium Level 141 mmol/L (133-145)
[2024-09-03 21:11] LABS: Amphetamine Urine NEGATIVE (<1000 ng/mL); Barbiturate Urine NEGATIVE (< 200 ng/mL); Benzodiazepine Urine NEGATIVE (< 200 ng/mL); Buprenorphine Urine NEGATIVE (< 200 ng/mL); Cocaine Urine NEGATIVE (< 300 ng/mL); Fentanyl, Urine PRESUMPTIVE POSITIVE; Methadone Urine NEGATIVE (< 300 ng/mL); Opiates Urine NEGATIVE (< 300 ng/mL); Oxycodone, Urine NEGATIVE (< 100 ng/mL); PCP Urine NEGATIVE (< 25 ng/mL); THC Urine PRESUMPTIVE POSITIVE (< 50 ng/mL)
[2024-09-03 21:19] LABS: Alcohol, Blood (Medical)-Serum < 10.1 mg/dL (<=10.0)
[2024-09-03] MEDS: Potassium Chloride Oral Soln 20 MEQ/15 ML UDC 40 MEQ PO (21:48)
[2024-09-03 21:50] VITALS: PULSE 97; RESP 18; O2SAT 97
[2024-09-03] MEDS: proMETHazine 25 MG/ML Syringe IM (22:38)
[2024-09-03 22:40] VITALS: BP 139/59; PULSE 91; RESP 18; TEMP 36.8; O2SAT 96
== END 2024-09-03 22:52 | disposition home or self-care (01) ==
PROVIDERS: Emergency Provider Emergency Medicine; Visit Provider Emergency Medicine
DX: R11.0 Nausea (principal); F11.10 Opioid abuse, uncomplicated; F12.10 Cannabis abuse, uncomplicated; E87.6 Hypokalemia; F41.9 Anxiety disorder, unspecified; F32.A Depression, unspecified; Z79.899 Other long term (current) drug therapy; Z87.891 Personal history of nicotine dependence
CPT/HCPCS: 80048; 80307; 82077; 85025; 96361; 96372; 96374; 99284; A4216; J2405

== ENCOUNTER 2024-12-10 23:50 | Observation (INO) | payer MEDICAID, SELFPAY ==
--- OUTSIDE RECORDS SUMMARY | 2024-12-10 23:30 | XMS RPT_ITS | CCD ---
Author Organization [facility] Care Team Providers Care Supervisor Production Department Name Role Phone Asha Steffany Len Unavailable YAN JIMENEZ Unavailable Unavai lable ERPENBECK, STEFFANY CABRERA Unavailable Unavaila ble MENDICINO, YAN MARTIN Unavailable Unavai lable MCELESHNATASHA Unavailable Unavailable MENDICINOYAN Unavailable Unavai lable ERPENBECKSTEFFANY Unavailable Unavailab le MENDICINOYAN Unavailable Unavai lable MANIACI, JOSE SOMERS Unavailable Unavailabl e MENDICINOYAN Unavailable Unavai lable ERPENBECK, STEFFANY Hennessy Unavailable Unavailab le MENDICINOYAN Unavailable Unavai lable MANIACIJOSE Unavailable Unavailabl e MENDICINOYAN Unavailable Unavai lable ERPENBECK, STEFFANY Hennessy Unavailable Unavailab le MENDICINOYAN Unavailable Unavai lable MCELFRESHNATASHA Unavailable Unavailable MENDICINOYAN Unavailable Unavai lable ERPENBECKSTEFFANY Unavailable Unavailab le MENDICINOYAN Unavailable Unavai lable SOL CNUHA Unavailable Unavailable MENDICINOYAN Unavailable Unavai lable ERPENBECK, STEFFANY Hennessy Unavailable Unavailab le MENDICINOYAN Unavailable Unavai lable MANIACIJOSE Unavailable Unavailabl e MENDICINOYAN Unavailable Unavai lable ERPENBECK, STEFFANY Hennessy Unavailable Unavailab le MENDICINOYAN Unavailable Unavai lable MANIACI, JOSE SOMERS Unavailable Unavailabl e MENDICINOYAN Unavailable Unavai lable ERPENBECK, STEFFANY Hennessy Unavailable Unavailab le MENDICINOYAN Unavailable Unavai lable MANIACI, JOSE SOMERS Unavailable Unavailabl e MENDICINO, YAN MARTIN Unavailable Unavai lable ERPENBECK, STEFFANY L. Unavailable Unavailab le MENDICINO, YAN MARTIN Unavailable Unavai lable SOL CUNHA Unavailable Unavailable MENDICINO, YAN MARTIN Unavailable Unavai lable ERPENBECK, STEFFANY L. Unavailable Unavailab le MENDICINO, YAN MARTIN Unavailable Unavai lable MANIACI, JOSE SOMERS Unavailable Unavailabl e MENDICINO, YAN MARTIN Unavailable Unavai lable ERPENBECK, STEFFANY L. Unavailable Unavailab le MANIACI, JOSE SOMERS Unavailable Unavailabl e MENDICINO, YAN MARTIN Unavailable Unavai lable ERPENBECK, STEFFANY L. Unavailable Unavailab le MENDICINO, YAN MARTIN Unavailable Unavai lable NAOMYNATASHA SANCHEZ Unavailable Unavailable MENDICINO, YAN MARTIN Unavailable Unavai lable ERPENBECK, STEFFANY L. Unavailable Unavailab le MENDICINO, YAN MARTIN Unavailable Unavai lable NATASHA ROMERO Unavailable Unavailable MENDICINO, YAN MARTIN Unavailable Unavai lable ERPENBECK, STEFFANY L. Unavailable Unavailab le MENDICINO, YAN MARTIN Unavailable Unavai lable KENYON BRICENO Unavailable Unavailable MENDICINO, YAN MARTIN Unavailable Unavai lable ERPENBECK, STEFFANY L. Unavailable Unavailab le No, Physician Primary Care Provider UnavailMinerva Allen Primary Care Provider [phone] No, Physician Primary Care Provider UnavailMarc Gamino MD Unavailable [phone] Soco Paige CNP Primary Care Provider Minerva Grier CNP Primary Care Provider SUSAN CA Admitting Unavailable SUSAN CA Attending Unavailable MINERVA GRIER Primary Care Unavailable MINERVA GRIER Primary Care Unavailable SUSAN CA Referring Unavailable SUSAN AC Attending Unavailable MINERVA GRIER Primary Care Unavailable SUSAN CA Referring Unavailable SELF, SELF Referring Unavailable SUSAN CA Attending Unavailable MINERVA GRIER Primary Care Unavailable MARVEL, MINERVA M Primary Care Unavailable JOLENE AVILA Attending Unavailabl e SCHMUCKER, SUSAN W Referring Unavailable SELF, SELF Referring Unavailable SCHMUCKER, SUSAN W Attending Unavailable MARVEL, MINERVA M Primary Care Unavailable MARVEL, MINERVA M Primary Care Unavailable NATALIIA KANG Attending Unavailable SCHMUCKER, SUSAN W Referring Unavailable MARVEL, MINERVA M Primary Care Unavailable SCHMUCKER, SUSAN W Referring Unavailable MARVEL, MINERVA M Primary Care Unavailable MARVEL, MINERVA M Primary Care Unavailable JALEEL CM Attending Unavailable SCHMUCKER, SUSAN W Referring Unavailable MARVEL, MINERVA M Primary Care Unavailable SCHMUCKER, SUSAN W Referring Unavailable SCHMUCKER, SUSAN W Attending Unavailable MARVEL, MINERVA M Primary Care Unavailable SCHMUCKER, SUSAN W Admitting Unavailable Care Physician, No Primary Primary Care Provider Unavailable Dr. Ángela Banks Emergency Provider Dr. Kyler Nance Admit Provider Dr. Kyler Nance Attending Provider [phone] Dr. Kyler Nance Other Provider [phone] Slava Saavedra Attending Provider [phone] Slava Saavedra Other Provider Dr. Marc Guzman Attending Provider [phone] Unavailable Primary Care Provider Unavailabl e MINERVA GRIER M Primary Care Unavailable JAYANT TRIMBLE Attending Unavailable Marc Juan MD Unavailable Soco Paige CNP Primary Care Provider NILA BOBO Attending Unavailable PAIGE, SOCO Primary Care Unavailable BHARAT GUPTA Admitting Unavailab jj PAIGE, SOCO Primary Care Unavailable [facility] Consulting GONZÁLEZ Wan Attending Unavailable MARC JUAN Consulting Unavailable GONZÁLEZ HEARN Attending Unavailable [facility] Consulting Unavai lable PAIGE, SOCO Primary Care Unavailable JACINTO HALE Admitting Unavailable MARC JUAN Consulting Unavailable BHARAT GUPTA Admitting Unavailab HAL Mahajan Attending Unavailable HAL CLARKE Referring Unavailable PAIGE, SOCO Primary Care Unavailable PAIGE, SOCO Primary Care Unavailable DEVAUGHN TOBIAS CAMACHO Attending Unavailable PAIGE, SOCO Primary Care Unavailable NO, PHYSICIAN Primary Care Unavailable DEVAUGHN TOBIAS Attending Unavailable NÉSTOR GAGNON Consulting Unavailabl e ESTEFANÍA PA Attending Unavailable ESTEFANÍA PA Admitting Unavailable Care Physician, No Primary Primary Care Provider Unavailable Care Physician, No Primary Referring Provider Un available LYNDSEY Jacobs Attending Provider [phone] Unavailable Primary Care Provider Unavailabl e [facility] Primary Care Provider Unav ailable Unavailable Primary Care Provider Unavailabl e ANDI DAVIDSON Attending Unavailable ANDI DAVIDSON Admitting Unavailable SUSAN LATHAM Referring Unavailable Darryl NEGRETE, John Sibley Primary Care Provider EDGAR POWERS Attending Unavailable MAN, OLE Admitting Unavailable DARRYL, JOHN Primary Care Unavailable MARC LAINEZ Attending Unavailable DARRYL, JOHN Primary Care Unavailable RADHA BATISTA Attending Unavailable [facility] Primary Care Unavailable JOSEF GUERRA Admitting Unavailable SHEIN OLE Consulting Unavailable [facility] Primary Care Unavailable SARA HUGHES Attending Unavailable [facility] Primary Care Unavailable MARC LAINEZ Attending Unavailable DARRYL, JOHN Primary Care Unavailable JAMES NEIL Attending Unavailable Dr. Chemo Dunlap DO Emergency Provider Mustapha ARRINGTON, Natasha Arthur Primary Care Provide r Dr. Alexsander Mckenna DO Emergency Provider [phone] Fahad Pepe Referring Unavailable Lang Montilla Attending Unavailable Care Physician, No Primary Primary Care Unava ilable Afshin Fahad Consulting Unavailable Afshin, Fahad Admitting Unavailable Kyler Nance Consulting Unavailable Kyler Nance Attending Unavailable Fahad Pepe Attending Unavailable Friend, Lang Attending Unavailable Care Physician, No Primary Primary Care Unava ilable Goyo Kyler Referring Unavailable Afshin, Fahad Referring Unavailable Mary Chahal Attending Unavailable Care Physician, No Primary Primary Care Unava ilable Afshin, Fahad Referring Unavailable Care Physician, No Primary Primary Care Unava ilable Afshin, Fahad Consulting Unavailable Afshin, Fahad Admitting Unavailable Goyo Kyler Attending Unavailable Mabel Somers NURY Primary Care U navailable Chemo Dunlap Attending Mabel Julio [facility] Mckenna Attending Unavailable Unavailable Primary Care Provider FAVIAN Yuan Admitting Unavailab le KLYPCHAK, FAVIAN SCHMIDT Attending Unavailab le KLYPCHAK, FAVIAN SCHMIDT Consulting Unavailab le RIMMELIN, ALLAN PFEIFFER Admitting Unav ailable RIMMOR, ALLAN PFEIFFER Attending Unav ailable RIMMOR, ALLAN PFEIFFER Consulting Unav ailable NANCY BOLDEN Admitting Unavailable NU, NANCY Attending Unavailable NU, NANCY Consulting Unavailable Medications Current Medications Medication Drug Class(es) Dates Sig (Normalized) Sig (Original) ARIPiprazole 10 mg oral tablet (3 sources) Atypical Antipsychotic take 1 tablet by mouth once daily aripiprazole 10 MG tablet Take 10 mg by mouth daily. 0 Active azithromycin 250 mg oral tablet (2 sources) Macrolide Antimicrobial Start: 05-13-2022 End: 05-13-2022 Azithromycin (ZITHROMAX) tablet 500 mg Start: 05-13-2022 End: 05-17-2022 take 1 tablet by mouth once daily Azithromycin 250 MG tablet Take 1 tablet by mouth daily for 4 days. 4 tablet 0 05/13/2022 05/17/2022 Active buprenorphine 8 mg / naloxone 2 mg sublingual film (20 sources) Partial Opioid Agonist, Opioid Antagonist Start: 11-12-2024 End: 12-10-2024 buprenorphine-naloxone (SUBOXONE FILM) 8-2 mg SL film Indications: Opioid use disorder, severe, in early remission (CMS & HHS-HCC) Place 1 Strip under the tongue 3 (three) times daily for 14 days. Max Daily Amount: 3 Strips 42 Each 11/26/2024 12/10/2024 Active Start: 05-06-2022 End: 06-07-2023 buprenorphine-naloxone (Subo xone) 2-0.5 MG per sublingual film Start: 09-30-2021 End: 10-03-2021 buprenorphine-naloxone 2.9-0 .71 mg Subl Indications: Opiate use Place 1 tablet under the tongue 2 (two) times a day (Days supply per fill: 3) for 3 days . 6 tablet 0 09/30/2021 10/03/2021 Active Start: 09-30-2021 End: 10-03-2021 buprenorphine-naloxone 2.9-0 .71 mg Subl Indications: Opiate use Place 1 tablet under the tongue daily (Days supply per fill: 3) for 3 days . 6 tablet 0 09/30/2021 10/03/2021 Active Start: 09-28-2021 End: 09-30-2021 buprenorphine-nalOXone (SUBO XONE) 2-0.5 mg sublingual film 4 mg of buprenorphine Start: 09-17-2021 buprenorphine 8 mg/naloxone 2 mg SL film DISSOLVE 1 FILM UNDER TONGUE TWICE DAILY DIRECTED 0 09/17/2021 Active End: 09-28-2021 buprenorphine-nalOXone (Subo xone) 8-[address] 2 Film under the tongue Last filled 09/17/21, #14/7 day supply per GAUTAM . 0 09/28/2021 Discontinued (Error) Comment on above: Place 1 Strip under the tongue 3 (three) times daily for 14 days. Max Daily Amount: 3 Strips 24 hr buPROPion hydrochloride 150 mg extended release oral tablet (12 sources) Aminoketone Start: End: take 1 tablet by mouth once daily in the morning buPROPion XL (WELLBUTRIN XL) 150 mg 24 hr tablet Take 1 Tablet by mouth every morning for 180 days. 30 Tablet 5 11/12/2024 05/11/2025 Active Start: 08-14-2024 End: 11-12-2024 take 1 tablet by mouth once daily Bupropion Hcl 100 mg tablet sustained-release 12 hr Active 100 mg PO DAILY September 03, 2024 12:00am Comment on above: Take 100 mg by mouth daily. Take 1 Tablet by estrella th every morning for 180 days. ceFAZolin 2000 mg injection (1 source) Cephalosporin Antibacterial Start : 09-02 End: 09-03 ceFAZolin (ANCEF) 2 g in dextrose 100 mL premix IVPB cephalexin 500 mg oral capsule (3 sources) Cephalosporin Antibacterial Start : 02-23 End: 03-02 take 1 capsule by mouth three times daily cephalexin (Keflex) 500 MG capsule Take 1 capsule (500 mg) by mouth 3 times daily for 7 days. 21 capsule 0 02/23/2023 03/02/2023 Active cetirizine hydrochloride 10 mg oral tablet (1 source) Histamine-1 Receptor Antagonist Start : 08-28 End: 09-04 take 1 tablet by mouth once daily cetirizine (ZYRTEC) 10 mg tablet Indications: Acute otalgia, bilateral , Eustachian tube dysfunction, bilateral , TMJ tenderness, right Take 1 tablet by mouth once daily for 7 days. 7 tablet 0 08/29/2023 09/05/2023 Active Comment on above: Take 1 tablet by estrella once daily for 7 days. famotidine 20 mg oral tablet (14 sources) Histamine-2 Receptor Antagonist Start : 07-20 End: 06-04 take 1 tablet by mouth twice daily famotidine (PEPCID) 20 MG tablet Take 1 (one) tablet (20 mg total) by mouth 2 (two) times a day for 20 doses . 20 tablet 0 10/22/2021 Active methylPREDNISolone (1 source) Corticosteroid Start : 08-28 End: 09-03 methylPREDNISolone (MEDROL DOSE-PACK) 4 mg Dose-Pack Indications: Acute otalgia, bilateral , Eustachian tube dysfunction, bilateral , TMJ tenderness, right Take as instructed per package. 21 tablet 0 08/29/2023 09/04/2023 Active Comment on above: Take as instructed p er package. metroNIDAZOLE 500 mg oral tablet (6 sources) Nitroimidazole Antimicrobial Start : 09-30 End: 10-05 take 1 tablet by mouth three times daily at mealtime metroNIDAZOLE (FLAGYL) 500 MG tablet Take 1 (one) tablet (500 mg total) by mouth 3 (three) times a day with meals for 5 days . 15 tablet 0 09/30/2021 10/05/2021 Active Start: 09-27-2021 End: 09-30-2021 take 500 mg intravenously every eight hours metroNIDAZOLE (FLAGYL) IVPB 500 mg naproxen 500 mg oral tablet (2 sources) Nonsteroidal Anti-inflammatory Drug Start: 09-26-2018 End: 10-06-2018 take 1 tablet by mouth twice daily at mealtime naproxen (NAPROSYN) 500 MG Tab tablet Take 1 tablet by mouth 2 times daily with meals for 10 days. 20 tablet 0 09/26/2018 Active polyethylene glycol 3350 54030 mg powder for oral solution (7 sources) Osmotic Laxative Start: 11-26-2024 End: 02-24-2025 take 17 g by mouth every twenty-four hours as needed polyethylene glycol, PEG, 3350 (MIRALAX) 17 gram packet Take 17 g by mouth once daily as needed for other reason (constipation) for up to 90 days. 30 Packet 2 11/26/2024 02/24/2025 Active Start: 10-25-2023 End: 10-29-2023 take 17 g by mouth every twenty-four hours as needed for constipation polyethylene glycol (PEG) 3350 (Miralax) packet 17 g Start: 06-07-2023 End: 06-07-2023 take 17 g by mouth every twenty-four hours as needed for constipation polyethylene glycol (PEG) 3350 (Miralax) packet 17 g Comment on above: Take 17 g by mouth o nce daily as needed for other reason (constipation) for up to 90 days. sennosides, intermediate 8.6 mg oral capsule (3 sources) Start: 11-27-19 End: 12-27-19 take 1 capsule by mouth every twenty-four hours as needed sennosides (SENNA) 8.6 mg cap Take 1 Capsule by mouth once daily as needed (constipation) for up to 30 days. 30 Capsule 1 11/26/2024 12/26/2024 Active Comment on above: Take 1 Capsule by [facility] once daily as needed (constipation) for up to 30 days. 24 hr venlafaxine 150 mg extended release oral capsule (20 sources) Serotonin and Norepinephrine Reuptake Inhibitor Start: 08-15-19 End: 08-15-19 take 225 mg by mouth once daily at breakfast 225 mg, Oral, Daily with breakfast, First dose on Tue08/14/24 at 0800, Do not crush or chew. Start: 10-26-2023 End: 10-29-2023 take 225 mg by mouth once daily at breakfast 225 mg, Oral, Daily with breakfast, First dose on Tue10/26/23 at 0800, Do not crush or chew. Start: 06-07-2023 End: 06-07-2023 take 225 mg by mouth once daily at breakfast 225 mg, Oral, Daily with breakfast, First dose on Tue06/07/23 at 1100, Do not crush or chew. Start: 02-13-2023 venlafaxine XR (Effexor XR) 150 MG 24 hr capsule Start: 06-04-2022 End: 01-11-2025 take 1 capsule by mouth once daily at breakfast venlafaxine XR (EFFEXOR XR) 150 mg 24 hr capsule Take 1 Capsule by mouth once daily with breakfast for 60 days. 30 Capsule 1 11/12/2024 01/11/2025 Active Start: 04-21-2022 End: 01-11-2025 take 1 capsule by mouth once daily at breakfast venlafaxine XR (EFFEXOR XR) 75 mg 24 hr capsule Take 1 Capsule by mouth once daily with breakfast for 60 days. 30 Capsule 1 11/12/2024 01/11/2025 Active Start: 04-21-2022 End: 06-07-2023 take 1 capsule by mouth once daily Venlafaxine 75 mg capsule,extended release 24hr Active 150 mg PO DAILY April 21, 2022 1:00am Comment on above: Take 150 mg by mouth daily at bedtime. Take 150 mg by mouth once daily with breakfast. Take 1 Capsule by [facility] once daily with breakfast for 60 days. Completed/Discontinued Medications Medication Drug Class(es) Dates Sig (Normalized) Sig (Original) Acetaminophen (18 sources) Start: 10-25-2023 End: 10-29-2023 take 1 tablet by mouth every six hours as needed for pain and fever acetaminophen (Tylenol) tablet 650 mg Start: 06-07-2023 End: 06-07-2023 take 1 tablet by mouth every six hours as needed for pain and fever acetaminophen (Tylenol) tablet 650 mg Start: 03-08-2023 End: 03-08-2023 acetaminophen (Tylenol) tabl et 650 mg Start: 10-28-2022 End: 06-07-2023 acetaminophen (Tylenol) 500 MG tablet Start: 05-31-2022 End: 06-04-2022 take 1 tablet by mouth every four hours as needed for pain and headache 650 mg, Oral, Every 4 hours PRN, mild pain, fever 100.4 F or greater, headaches, Starting on Tue05/31/22 at 0331 Start: 09-27-2021 End: 09-30-2021 take 1 tablet by mouth every four hours as needed for pain and headache acetaminophen (TYLENOL) tablet 650 mg Start: 12-03-2019 End: 12-04-2019 take 1 tablet by mouth every six hours as needed acetaminophen (TYLENOL) tablet 650 mg acetaminophen 325 mg / HYDROcodone bitartrate 5 mg oral tablet (1 source) Opioid Agonist Start: 08-19-2021 End: 08-19-2021 take 1 tablet by mouth every four hours as needed hydroCODone-acetaminophen (NORCO) 5-325 MG per tablet 1 tablet acetylcysteine 600 mg oral capsule (4 sources) Antidote, Mucolytic, Antidote for Acetaminophen Overdose Start: 05-31-2022 End: 06-04-2022 N-acetylcysteine (NAC) capsule 1,200 mg Start: 09-28-2021 End: 09-30-2021 N-acetylcysteine (NAC) capsu le 600 mg Start: 07-22-2021 End: 08-21-2021 take 1 capsule by mouth twice daily N-acetylcysteine (NAC) 600 mg capsule Indications: Hyperemesis , Opiate use Take 1 (one) capsule (600 mg total) by mouth 2 (two) times a day . 30 capsule 1 07/22/2021 08/21/2021 Active albuterol 0.83 mg/ml inhalation solution (2 sources) beta2-Adrenergic Agonist Start: 05-13-2022 End: 05-13-2022 Albuterol (PROVENTIL) (2.5 MG/3ML) 0.083% inhalation solution 2.5 mg Start: 05-13-2022 End: 05-13-2022 Albuterol inhaler 2 puff albuterol 0.833 mg/ml / ipratropium bromide 0.167 mg/ml inhalant solution (3 sources) Anticholinergic, beta2-Adrenergic Agonist Start: 05-13-2022 End: 05-13-2022 Ipratropium-albuterol (DUONEB) 0.5-2.5 (3) MG/3ML nebulizer solution 3 mL Start: 12-03-2019 End: 12-04-2019 take 3 mL by inhalation every four hours as needed 3 mL, Inhalation, Every 4 hours PRN (RT), shortness of breath, Starting Tue12/03/19 at 0759 aluminum hydroxide 40 mg/ml / magnesium hydroxide 40 mg/ml / simethicone 4 mg/ml oral suspension (1 source) Start: 12-03-2019 End: 12-04-2019 take 30 mL by mouth every four hours as needed 30 mL, Oral, Every 4 hours PRN, indigestion, Starting 12/03/19 at 0759 amoxicillin 875 mg / clavulanate 125 mg oral tablet (6 sources) Penicillin-class Antibacterial Start: 04-26-2022 End: 09-28-2022 take 1 tablet by mouth twice daily at mealtime Amoxicillin-Pot Clavulanate 875-125 mg Tablet Discontinued 875 mg PO TWICE DAILY WITH MEALS April 26, 2022 1:00am September 28, 2022 10:17am ampicillin-sulbac girard (UNASYN) 1500 mg in sodium chloride (NS) 0.9% 50 mL (vialmate) (1 source) Start: 06-01-2022 End: 06-04-2022 take 1500 mg intravenously every eight hours ampicillin-sulbac girard (UNASYN) 1500 mg in sodium chloride (NS) 0.9% 50 mL (vialmate) baclofen 10 mg oral tablet (14 sources) gamma-Aminobutyric Acid-ergic Agonist Start: 08-13-2024 End: 08-14-2024 take 10 mg by mouth three times daily 10 mg, Oral, 3 times daily, First dose on Tue08/13/24 at 1450 Start: 10-26-2023 End: 10-29-2023 baclofen (Lioresal) tablet 1 0 mg Start: 07-22-2021 baclofen (MITCHELL ESAL) 10 MG tablet Indications: Hyperemesis , Opiate use Take 20 mg TID X 6 doses then 10 mg TID X 9 doses . 21 tablet 0 07/22/2021 Active bisacodyl 10 mg rectal suppository (1 source) Stimulant Laxative Start: 12-03-2019 End: 12-04-2019 take 10 mg rectal route once daily as needed for constipation 10 mg, Rectal, Daily PRN, constipation, Starting Tue12/03/19 at 0759 Try oral medications first for constipation. Try rectal medication if oral meds are ineffective, not tolerated, or not ordered. calcium chloride 0.0014 meq/ml / potassium chloride 0.004 meq/ml / sodium chloride 0.103 meq/ml / sodium lactate 0.028 meq/ml injectable solution (10 sources) Start: 11-08-2023 End: 11-08-2023 lactated ringers bolus 1,000 mL Start: 10-25-2023 End: 10-25-2023 lactated ringers bolus 1,000 mL Start: 10-07-2021 End: 10-07-2021 lactated ringers IV solution Start: 09-27-2021 End: 09-29-2021 lactated Ringers infusion Start: 08-19-2021 End: 08-19-2021 lactated ringers IV solution capsaicin 0.25 mg/ml topical cream (1 source) Start: 12-03-2019 End: 12-04-2019 capsaicin (ZOSTRIX) 0.025 % cream cefTRIAXone (ROCEPHIN) 1000 mg in sodium chloride (NS) 0.9% 50 mL MBP (1 source) Start: 09-27-2021 End: 09-30-2021 take 1000 mg intravenously every twenty-four hours cefTRIAXone (ROCEPHIN) 1000 mg in sodium chloride (NS) 0.9% 50 mL MBP cloNIDine hydrochloride 0.1 mg oral tablet (19 sources) Central alpha-2 Adrenergic Agonist Start: 08-13-2024 End: 08-13-2024 0.1 mg, Oral, Once, On Tue08/13/24 at 1005, For 1 dose, Administer this test dose, then check blood pressure and heart rate 1 hour later. If SBP Start: 07-22-2021 End: 06-07-2023 cloNIDine (Catapres) 0.1 MG tablet dicyclomine hydrochloride 10 mg oral capsule (13 sources) Anticholinergic Start: 08-13-2024 End: 08-14-2024 take 10 mg by mouth four times daily as needed 10 mg, Oral, 4 times daily PRN, gi cramping, Starting on Tue08/13/24 at 1443 Start: 10-26-2023 End: 10-29-2023 dicyclomine (Bentyl) capsule 10 mg Start: 05-05-2022 End: 06-07-2023 dicyclomine (Bentyl) 10 MG c apsule 1 ml diphenhydrAMINE hydrochloride 50 mg/ml cartridge (10 sources) Histamine-1 Receptor Antagonist Start: 04-11-2024 End: 04-11-2024 25 mg, IntraVENous, Once, On Tue04/11/24 at 0110, For 1 dose Start: 11-08-2023 End: 11-08-2023 diphenhydrAMINE (BENADryl) i njection 25 mg Start: 10-25-2023 End: 10-25-2023 diphenhydrAMINE (BENADryl) i njection 25 mg Start: 06-06-2023 End: 06-06-2023 diphenhydrAMINE (BENADryl) i njection 50 mg Start: 05-30-2022 End: 05-30-2022 diphenhydrAMINE (BENADRYL) i njection 50 mg Start: 11-18-2019 End: 11-18-2019 diphenhydrAMINE (BENADRYL) i njection 50 mg doxycycline monohydrate 100 mg oral capsule (9 sources) Tetracycline-class Drug Start: 05-10-2022 End: 06-07-2023 doxycycline (Monodox) 100 MG capsule 2 ml droperidol 2.5 mg/ml injection (7 sources) Dopamine-2 Receptor Antagonist Start: 11-08-2023 End: 11-08-2023 droperidol (Inapsine) injection 0.625 mg Start: 06-06-2023 End: 06-07-2023 take 1.25 mg intravenously every six hours as needed for nausea droperidol (Inapsine) injection 1.25 mg Start: 09-28-2021 End: 09-30-2021 take 0.625 mg intravenously every six hours as needed for nausea and vomiting droperidoL (INAPSINE) injection 0.625 mg 0.4 ml enoxaparin sodium 100 mg/ml prefilled syringe (1 source) Low Molecular Weight Heparin Start: 09-27-2021 End: 09-30-2021 enoxaparin (LOVENOX) syringe 40 mg 2 ml fentaNYL 0.05 mg/ml injection (4 sources) Opioid Agonist Start: 10-07-2021 End: 10-07-2021 fentaNYL (SUBLIMAZE) injection 25 mcg Start: 08-19-2021 End: 08-19-2021 fentaNYL (SUBLIMAZE) injecti on 50 mcg fluconazole 200 mg oral tablet (6 sources) Azole Antifungal Start: 10-29-2024 take 1 tablet by mouth once fluconazole (DIFLUCAN) 200 mg tablet Take 200 mg by mouth once. 10/29/2024 Active Comment on above: Take 200 mg by mouth once. gabapentin 300 mg oral capsule (20 sources) Anti-epileptic Agent Start: 10-31-2024 End: 11-26-2024 take 1 capsule by mouth twice daily gabapentin (NEURONTIN) 300 mg capsule Take 1 Capsule by mouth 2 (two) times daily. 60 Capsule 11/26/2024 Active Start: 08-13-2024 End: 08-14-2024 take 300 mg by mouth three times daily 300 mg, Oral, 3 times daily, First dose on Tue08/13/24 at 1450 Start: 10-26-2023 End: 10-29-2023 gabapentin (Neurontin) capsu le 300 mg Start: 05-09-2022 take 2 capsules by m outh every twelve hours gabapentin (NEURONTIN) 300 mg capsule Take 2 capsules by mouth every 12 hours for 30 days. 0 05/09/2022 Active Start: 05-05-2022 End: 06-07-2023 gabapentin (Neurontin) 300 M G capsule Comment on above: Take 2 capsules by m outh every 12 hours for 30 days. Take 1 Capsule by mo uth 2 (two) times daily. 1 ml haloperidol 5 mg/ml prefilled syringe (7 sources) Typical Antipsychotic Start: 10-25-2023 End: 10-25-2023 haloperidol lactate (Haldol) injection 2 mg Start: 05-30-2022 End: 05-30-2022 haloperidol lactate (HALDOL) injection 2 mg Start: 10-07-2021 End: 10-07-2021 haloperidol lactate (HALDOL) injection 1 mg 1 ml hydrALAZINE hydrochloride 20 mg/ml injection (1 source) Arteriolar Vasodilator Start: 10-07-2021 End: 10-07-2021 hydrALAZINE (APRESOLINE) injection 2 mg 1 ml HYDROmorphone hydrochloride 1 mg/ml injection (1 source) Opioid Agonist Start: 11-17-2019 End: 11-17-2019 HYDROmorphone (DILAUDID) injection 1 mg HYDROmorphone (DILAUDID) injection 0.5 mg (1 source) Start: 10-07-2021 End: 10-07-2021 HYDROmorphone (DILAUDID) injection 0.5 mg hydrOXYzine pamoate 25 mg oral capsule (15 sources) Antihistamine Start: 08-13-2024 End: 08-14-2024 take 1 capsule by mouth every six hours as needed for anxiety Start: 10-26-2023 End: 10-29-2023 take 1 capsule by mouth every six hours as needed for anxiety hydrOXYzine pamoate (Vistaril) capsule 50 mg Start: 05-05-2022 End: 06-07-2023 hydrOXYzine pamoate (Vistari l) 25 MG capsule Start: 07-22-2021 End: 08-01-2021 take 1 capsule by mouth every six hours as needed for anxiety hydrOXYzine (VISTARIL) 50 MG capsule Indications: Hyperemesis , Opiate use Take 1 (one) capsule (50 mg total) by mouth every 6 (six) hours as needed for anxiety . 30 capsule 0 07/22/2021 08/01/2021 Active ibuprofen 400 mg oral tablet (20 sources) Nonsteroidal Anti-inflammatory Drug Start: 08-13-2024 End: 08-14-2024 take 1 tablet by mouth every six hours as needed Start: 10-26-2023 End: 10-29-2023 take 1 tablet by mouth every six hours as needed ibuprofen tablet 400 mg Start: 05-05-2022 End: 06-07-2023 ibuprofen 400 MG tablet End: 12-04-2019 take 1 tablet by mouth every six hours as needed ibuprofen (ADVIL,MOTRIN) 400 MG tablet Take 400 mg by mouth every 6 (six) hours as needed for pain. 0 12/04/2019 Discontinued (Stop Taking at Discharge) iopamidoL (ISOVUE-370) 370 m g iodine /mL (76 %) injection 75 mL (1 source) Start: 05-30-2022 End: 05-30-2022 iopamidoL (ISOVUE-370) 370 m g iodine /mL (76 %) injection 75 mL iopamidol (Isovue-370) 76 % injection 100 mL (2 sources) Start: 06-06-2023 End: 06-06-2023 iopamidol (Isovue-370) 76 % injection 100 mL iopamidoL (ISOVUE-370) 76 % injection 75 mL (1 source) Start: 09-27-2021 End: 09-27-2021 iopamidoL (ISOVUE-370) 76 % injection 75 mL iopamidol (Isovue-370) 76 % injection 75 mL (4 sources) Start: 11-08-2023 End: 11-08-2023 iopamidol (Isovue-370) 76 % injection 75 mL Start: 10-25-2023 End: 10-25-2023 iopamidol (Isovue-370) 76 % injection 75 mL 1 ml ketorolac tromethamine 15 mg/ml cartridge (5 sources) Nonsteroidal Anti-inflammatory Drug, Cyclooxygenase Inhibitor Start: 04-11-2024 End: 04-11-2024 15 mg, IntraVENous, Once, On Tue04/11/24 at 0110, For 1 dose Start: 11-08-2023 End: 11-08-2023 ketorolac (Toradol) injectio n 15 mg Start: 09-27-2021 End: 09-27-2021 ketorolac (TORADOL) injectio n 15 mg labetalol hydrochloride 5 mg/ml injectable solution (4 sources) beta-Adrenergic Ezequiel Start: 10-25-2023 End: 10-25-2023 20 mg, IntraVENous, Once, On Tue10/25/23 at 1400, For 1 dose Start: 10-07-2021 End: 10-07-2021 labetalol (NORMODYNE) inject ion 5 mg levoFLOXacin 500 mg oral tablet (6 sources) Quinolone Antimicrobial Start: 09-30-2021 End: 06-04-2022 take 1 tablet by mouth once daily levoFLOXacin (LEVAQUIN) 500 MG tablet Take 1 (one) tablet (500 mg total) by mouth daily . 5 tablet 0 09/30/2021 06/04/2022 Discontinued (Stop Taking at Discharge) 10 ml lidocaine hydrochloride 10 mg/ml injection (3 sources) Antiarrhythmic, Amide Local Anesthetic Start: 03-08-2023 End: 03-08-2023 lidocaine (Xylocaine) 1 % injection 10 mL Start: 02-23-2023 End: 02-23-2023 lidocaine (Xylocaine) 1 % in jection 10 mL lidocaine 1% buffered in sod ium bicarbonate 1-8.4 % injection SOSY 1 mL (3 sources) Start: 10-07-2021 End: 10-07-2021 lidocaine 1% buffered in sod ium bicarbonate 1-8.4 % injection SOSY 1 mL Start: 10-07-2021 End: 10-07-2021 lidocaine 1% buffered in sod ium bicarbonate 1-8.4 % injection SOSY 1 mL Start: 08-19-2021 End: 08-19-2021 lidocaine 1% buffered in sod ium bicarbonate 1-8.4 % injection SOSY 1 mL loperamide hydrochloride 2 mg oral capsule (12 sources) Opioid Agonist Start: 10-26-2023 End: 10-29-2023 loperamide (Imodium) capsule 2 mg Start: 05-05-2022 End: 06-07-2023 loperamide (Imodium) 2 MG ca psule Start: 09-28-2021 End: 09-30-2021 loperamide (IMODIUM) capsule 2 mg melatonin 5 mg oral tablet (1 source) Start: 05-31-2022 End: 06-04-2022 melatonin Tab 5 mg 1 ml meperidine hydrochloride 25 mg/ml cartridge (1 source) Opioid Agonist Start: 10-07-2021 End: 10-07-2021 meperidine (DEMEROL) injection 12.5 mg 2 ml metoclopramide 5 mg/ml prefilled syringe (10 sources) Dopamine-2 Receptor Antagonist Start: 11-08-2023 End: 11-08-2023 metoclopramide (Reglan) injection 10 mg Start: 10-25-2023 End: 10-25-2023 metoclopramide (Reglan) injection 10 mg Start: 05-30-2022 End: 05-30-2022 metoclopramide (REGLAN) injection 10 mg Start: 09-27-2021 End: 09-30-2021 take 5 mg intravenously every six hours as needed for gastroesophageal reflux disease metoclopramide (REGLAN) injection 5 mg Start: 09-27-2021 End: 09-27-2021 metoclopramide (REGLAN) injection 10 mg Start: 12-03-2019 End: 12-04-2019 take 5 mg intravenous route every six hours as needed 5 mg, Intravenous, Every 6 hours PRN, heartburn, vomiting, Starting Tue12/03/19 at 0800 Start: 12-03-2019 End: 12-03-2019 metoclopramide (REGLAN) injection 10 mg Start: 11-18-2019 End: 11-18-2019 metoclopramide (REGLAN) injection 10 mg 1 ml naloxone hydrochloride 0.4 mg/ml injection (19 sources) Opioid Antagonist Start: 08-13-2024 End: 08-14-2024 0.4 mg, IntraVENous, Every 5 min PRN, opioid reversal, respiratory depression, Starting on Tue08/13/24 at 1447, +++ For RR Start: 10-26-2023 End: 10-29-2023 naloxone (Narcan) injection 0.4 mg Start: 05-28-2023 End: 05-28-2023 naloxone (Narcan) 4 mg/0.1 m L nasal spray Administer 1 spray (4 mg) into affected nostril(s) Once for 1 dose. May repeat every 2-3 minutes if needed, alternating nostrils, until medical assistance becomes available. 1 each 0 05/28/2023 05/28/2023 Active Start: 01-18-2023 End: 06-07-2023 take 4 mg nasal route once naloxone (Narcan) 4 mg/0.1 mL nasal spray Administer 4 mg into affected nostril(s) Once. 0 01/18/2023 06/07/2023 Discontinued (Therapy completed) Start: 01-18-2023 naloxone (Narc an) 4 mg/0.1 mL nasal spray Start: 06-01-2022 End: 06-01-2022 naloxone (NARCAN) 0.4 mg/mL injection - ADS Override Pull Start: 05-30-2022 End: 05-30-2022 naloxone (NARCAN) injection 2 mg Start: 05-30-2022 End: 05-30-2022 naloxone (NARCAN) injection 2 mg Start: 05-30-2022 End: 05-30-2022 naloxone (NARCAN) 1 mg/mL in jection - ADS Override Pull naloxone (NARCAN) 4 mg/actuation nasal spray (6 sources) Start: 10-01-2024 naloxone (NARCAN) 4 mg/actuation nasal spray Place 4 mg into the nostril(s) as needed. 10/01/2024 Active Comment on above: Place 4 mg into the nostril(s) as needed. naloxone (NARCAN) 4 mg/spray nasal spray for home use 4 mg (1 source) Start: 05-30-2022 End: 06-04-2022 naloxone (NARCAN) 4 mg/spray nasal spray for home use 4 mg naloxone (NARCAN) injection 0.1 mg (1 source) Start: 09-28-2021 End: 09-30-2021 naloxone (NARCAN) injection 0.1 mg naltrexone 380 mg injection (16 sources) Opioid Antagonist Start: 09-28-2022 End: 11-11-2023 inject 380 mg by intramuscular injection every month Naltrexone Microspheres (Vivitrol) 380 mg suspension,extend ed rel recon Discontinued 380 mg IM EVERY MONTH September 28, 2022 12:00am November 11, 2023 10:15am Start: 06-04-2022 End: 06-04-2022 naltrexone microspheres (DESTINY ITROL) injection 380 mg Start: 06-03-2022 End: 06-03-2022 naltrexone (DEPADE, REVIA) t ablet 25 mg Start: 07-22-2021 End: 07-22-2021 take 380 mg by mouth once naltrexone microspheres (Destiny itroL) Inject 380 (three hundred eighty) mg into the shoulder, thigh, or buttocks once IF LFTS OK AND TOLERATES PO for 1 dose . 1 each 0 07/22/2021 07/22/2021 Active Start: 07-22-2021 End: 08-11-2021 take 0.5 tablet by mouth once daily naltrexone (DEPADE, REVIA) 50 mg tablet Take 0.5 (one-half) tablet (25 mg total) by mouth daily START DAY AFTER NEG URINE OPIATES IF LFTS OK AND HOLD WHEN START IM for 20 doses . 10 tablet 0 07/22/2021 08/11/2021 Active 24 hr nicotine 0.583 mg/hr transdermal system (20 sources) Cholinergic Nicotinic Agonist Start: 10-01-2024 nicotine (NICODERM, STEP 2) 14 mg/[address] 1 Patch onto the skin once daily (every 24 hours). 10/01/2024 Active Start: 09-03-2024 apply 1 dose topical ly every twenty-four hours Nicotine 14 mg/24 hr patch 24 hour Active 1 NMA TOPICAL DAILY September 03, 2024 12:00am Start: 08-04-2024 nicotine (VERN DERM, STEP 1) 21 mg/[address] 1 Patch onto the skin once daily (every 24 hours). 08/04/2024 Active Start: 07-31-2024 nicotine (VERN DERM, STEP 3) 7 mg/[address] 1 Patch onto the skin once daily (every 24 hours). 07/31/2024 Active Start: 10-25-2023 End: 10-29-2023 nicotine (Nicoderm, Step 1) 21 MG/24HR patch 1 patch Start: 06-07-2023 End: 06-07-2023 apply 1 dose transdermal route once daily at bedtime 1 patch, TransDERmal, Administer over 24 Hours, Daily, First dose on Tue06/07/23 at 1100, Apply new patch to nonhairy, clean, dry skin on the upper body or upper outer arm. Rotate patch sites. Notify Pharmacy if patient or provider prefers patch to be removed at bedtime and replaced in the morning. Start: 01-20-2023 End: 06-07-2023 nicotine (Nicoderm, Step 2) 14 MG/24HR patch Start: 09-27-2021 End: 09-30-2021 nicotine (NICODERM CQ) 14 mg /24 hr 1 patch Comment on above: Place 1 Patch onto t he skin once daily (every 24 hours). nystatin 100 unt/mg topical powder (6 sources) Polyene Antifungal Start: 10-30-19 nystatin (MYCOSTATIN) 100,000 unit/gram powder Apply 1 Application topically 2 (two) times daily. 10/29/2024 Active Comment on above: Apply 1 Application topically 2 (two) times daily. ondansetron 4 mg disintegrating oral tablet (20 sources) Serotonin-3 Receptor Antagonist Start: 09-05-19 take 1 tablet by mouth twice daily as needed ondansetron ODT (ZOFRAN-ODT) 4 mg disintegrating tablet Take 4 mg by mouth 2 (two) times daily as needed. 09/04/2024 Active Start: 09-03-2024 take 1 tablet by estrella every eight hours as needed for nausea Ondansetron 4 mg tablet,disintegrating Active 4 mg PO EVERY 8 HOURS NEEDED as needed for Nausea September 03, 2024 12:00am Start: 09-01-2024 take 1 tablet by estrella th every eight hours as needed for nausea Ondansetron 4 mg tablet,disintegrating Active 4 mg PO EVERY 8 HOURS NEEDED as needed for Nausea September 01, 2024 12:00am Start: 08-14-2024 End: 08-21-2024 take 1 tablet by mouth every eight hours as needed for nausea and vomiting ondansetron ODT (Zofran-ODT) 4 MG disintegrating tablet Take 1 tablet (4 mg) by mouth every 8 hours as needed for nausea or vomiting for up to 7 days. 20 tablet 08/14/2024 08/21/2024 Active Start: 08-13-2024 End: 08-14-2024 4 mg, IntraVENous, Once, On Tue08/14/24 at 0210, For 1 dose Start: 11-07-2023 End: 11-08-2023 ondansetron (Zofran) injecti on 4 mg Start: 06-07-2023 End: 06-07-2023 take 1 tablet by mouth every eight hours as needed for nausea and vomiting ondansetron ODT (Zofran-ODT) disintegrating tablet 4 mg Start: 05-30-2022 End: 05-30-2022 ondansetron (ZOFRAN) injecti on 4 mg Start: 05-05-2022 End: 06-14-2023 take 1 tablet by mouth every eight hours as needed for nausea and vomiting ondansetron (Zofran) 4 MG tablet Take 1 tablet (4 mg) by mouth every 8 hours as needed for nausea or vomiting for up to 7 days. 20 tablet 0 06/07/2023 06/14/2023 Active Start: 12-24-2021 take 4 mg by mouth e very eight hours as needed ondansetron (ZOFRAN) 8 MG tablet Take 0.5 (one-half) tablet (4 mg total) by mouth every 8 (eight) hours as needed . 14 tablet 0 12/24/2021 Active Start: 10-22-2021 ondansetron (Z ofran) 4 MG tablet Start: 10-07-2021 End: 10-07-2021 ondansetron 4mg/2ml (ZOFRAN) injection 4 mg Start: 09-27-2021 End: 09-27-2021 ondansetron (ZOFRAN) injecti on 4 mg Start: 12-03-2019 End: 12-04-2019 take 4 mg intravenous route every six hours as needed 4 mg, Intravenous, Every 6 hours PRN, nausea, vomiting, Starting 12/03/19 at 0759 Start: 11-18-2019 End: 01-03-2020 take 1 tablet by mouth every eight hours as needed for nausea ondansetron (ZOFRAN) 4 MG tablet Take 1 (one) tablet (4 mg total) by mouth every 8 (eight) hours as needed for nausea . 15 tablet 0 12/04/2019 Active Start: 11-18-2019 End: 11-18-2019 ondansetron (ZOFRAN-ODT) disintegrating tablet 4 mg Start: 11-17-2019 End: 11-17-2019 ondansetron (ZOFRAN) injecti on 4 mg Comment on above: Take 4 mg by mouth 2 (two) times daily as needed. ondansetron (ZOFRAN-ODT) disintegrating tablet 4 mg (2 sources) Start: 05-31-19 End: 06-04-19 take 1 tablet by mouth every six hours as needed for nausea and vomiting ondansetron (ZOFRAN-ODT) disintegrating tablet 4 mg Start: 09-27-2021 End: 09-30-2021 take 1 tablet by mouth every six hours as needed for nausea and vomiting ondansetron (ZOFRAN-ODT) disintegrating tablet 4 mg ondansetron ODT (Zofran-ODT) disintegrating tablet 4 mg (2 sources) Start: 10-25-2023 End: 10-29-2023 take 1 tablet by mouth every eight hours as needed for nausea and vomiting ondansetron ODT (Zofran-ODT) disintegrating tablet 4 mg oxyCODONE (4 sources) Opioid Agonist Start: 10-07-2021 End: 10-07-2021 take 1 tablet by mouth every four hours as needed oxyCODONE (ROXICODONE) tablet 5 mg Start: 10-07-2021 End: 10-07-2021 oxyCODONE (ROXICODONE) table t 5 mg Start: 10-07-2021 End: 10-07-2021 oxyCODONE (ROXICODONE) table t 10 mg pantoprazole 40 mg delayed release oral tablet (20 sources) Proton Pump Inhibitor Start: 09-27-2021 pantoprazole (PROTONIX) injection 40 mg Start: 12-04-2019 End: 06-07-2023 take 1 tablet by mouth once daily Pantoprazole 40 mg Tablet,Delayed Release (Dr/Ec) Discontinued 40 mg PO DAILY April 26, 2022 1:00am September 28, 2022 10:17am Start: 12-03-2019 End: 12-04-2019 40 mg, Intravenous, Daily, F irst dose on Tue12/03/19 at 0900 penicillin v potassium 500 mg oral tablet (9 sources) Start: 07-12-2022 End: 06-07-2023 penicillin v potassium (Veetid) 500 MG tablet microencapsulated potassium chloride 20 meq extended release oral tablet (3 sources) Start: 06-02-2022 End: 06-02-2022 take 1 tablet by mouth every six hours potassium chloride SA (K-DUR,KLOR-CON) CR tablet 40 mEq Start: 06-02-2022 End: 06-02-2022 take 20 mEq intravenously every two hours potassium chloride 20 mEq in 100 mL IVPB Start: 09-28-2021 End: 09-29-2021 take 20 mEq intravenously every two hours potassium chloride 20 mEq in 100 mL IVPB predniSONE 20 mg oral tablet (11 sources) Start: 05-14-2022 End: 06-07-2023 predniSONE (Deltasone) 20 MG tablet Start: 05-13-2022 End: 05-13-2022 predniSONE (DELTASONE) table t 60 mg Start: 05-13-2022 predniSONE 20 MG tablet Take 3 tablets daily x 5 days 15 tablet 0 05/13/2022 Active prochlorperazine 5 mg/ml injectable solution (6 sources) Phenothiazine Start: 04-11-2024 End: 04-11-2024 5 mg, IntraVENous, Once, On Tue04/11/24 at 0110, For 1 dose Start: 10-25-2023 End: 10-29-2023 take 10 mg intravenously every six hours as needed for nausea and vomiting prochlorperazine (Compazine) injection 10 mg Start: 06-06-2023 End: 06-06-2023 prochlorperazine (Compazine) injection 10 mg Promethazine (20 sources) Phenothiazine Start: 08-13-2024 End: 08-14-2024 take 1 tablet by mouth every six hours as needed for nausea and vomiting promethazine (Phenergan) tablet 12.5 mg Start: 06-07-2023 End: 06-07-2023 take 25 mg rectal route every six hours as needed for nausea and vomiting promethazine (Phenergan) 25 MG suppository Insert 1 suppository (25 mg) into the rectum every 6 hours as needed for nausea or vomiting for up to 7 days. 12 each 0 06/07/2023 06/07/2023 Discontinued (Stop taking at discharge) Start: 10-07-2021 End: 10-07-2021 take 6.25 mg intravenously every hour as needed promethazine (PHENERGAN) injection 6.25 mg Start: 08-19-2021 End: 08-19-2021 promethazine (PHENERGAN) injection 2.5 mg Start: 07-22-2021 take 1 tablet by estrella th every four hours as needed for nausea promethazine (PHENERGAN) 25 MG tablet Indications: Hyperemesis , Opiate use Take 1 (one) tablet (25 mg total) by mouth every 4 (four) hours as needed for nausea . 10 tablet 0 07/22/2021 Active Start: 07-20-2021 End: 04-14-2024 take 1 tablet by mouth every six hours as needed for nausea and vomiting promethazine (Phenergan) 25 MG tablet Take 1 tablet (25 mg) by mouth every 6 hours as needed for nausea or vomiting for up to 3 days. 12 tablet 04/11/2024 04/14/2024 Active Start: 07-20-2021 End: 07-23-2021 promethazine (PHENERGAN) 25 MG suppository Insert 1 (one) suppository (25 mg total) into the rectum 3 (three) times a day as needed for nausea . 6 each 0 07/20/2021 07/23/2021 Active 50 ml sodium chloride 9 mg/m l injection (20 sources) Start: 08-13-2024 End: 08-13-2024 1,000 mL, IntraVENous, at 1, 000 mL/hr, Administer over 1 Hours, Once, On Tue08/13/24 at 1005, For 1 dose Start: 04-11-2024 End: 04-11-2024 1,000 mL, IntraVENous, at 1, 000 mL/hr, Administer over 1 Hours, Once, On Tue04/11/24 at 0110, For 1 dose Start: 11-08-2023 End: 11-08-2023 sodium chloride 0.9 % infusi on Start: 11-07-2023 End: 11-08-2023 sodium chloride 0.9 % bolus 1,000 mL Start: 10-25-2023 End: 10-26-2023 sodium chloride 0.9 % infusi on Start: 10-25-2023 End: 10-25-2023 sodium chloride 0.9 % bolus 1,000 mL Start: 06-07-2023 End: 06-07-2023 sodium chloride 0.9 % infusi on Start: 06-06-2023 End: 06-07-2023 sodium chloride 0.9 % bolus 1,000 mL Start: 05-31-2022 End: 06-04-2022 sodium chloride (PF) (NS) fl ush 5 mL Start: 05-30-2022 End: 06-04-2022 sodium chloride 0.9% (NS) brad isabelle 1,000 mL Start: 05-30-2022 End: 06-04-2022 sodium chloride (PF) (NS) fl ush 5 mL Start: 09-27-2021 End: 09-30-2021 sodium chloride (PF) (NS) fl ush 5 mL Start: 09-27-2021 End: 09-27-2021 sodium chloride 0.9% (NS) brad isabelle 500 mL Start: 12-03-2019 End: 12-04-2019 take 100 mL intravenous route every hour 100 mL/hr, Intravenous, Continuous, Starting Tue12/03/19 at 0900 Start: 11-17-2019 End: 11-18-2019 sodium chloride 0.9% (NS) brad isabelle 2,000 mL Start: 11-17-2019 End: 11-18-2019 sodium chloride (PF) (NS) fl ush 5 mL topiramate 25 mg oral tablet (12 sources) Start: 05-31-2022 End: 06-04-2022 topiramate (TOPAMAX) tablet 50 mg Start: 07-22-2021 End: 06-04-2022 topiramate (TOPAMAX) tablet 25 mg traMADol (6 sources) Opioid Agonist Start: 08-14-2024 End: 08-14-2024 take 1 tablet by mouth every six hours traMADol (Ultram) tablet 100 mg Start: 10-07-2021 End: 10-09-2021 take 1 tablet by mouth every six hours as needed traMADol 50 MG tablet Indications: Left carpal tunnel syndrome Take 1 tablet by mouth every 6 hours as needed for up to 2 days. 5 tablet 0 10/07/2021 Active Start: 08-19-2021 End: 08-21-2021 traMADol 50 MG tablet Indica tions: Post-op pain Take 1 tablet every 6 hours for up to 2 days as needed for pain 8 tablet 0 08/19/2021 Active traZODone hydrochloride 50 m g oral tablet (13 sources) Serotonin Reuptake Inhibitor Start: 08-13-2024 End: 08-14-2024 Start: 10-26-2023 End: 10-29-2023 traZODone (Desyrel) tablet 5 0 mg Start: 05-05-2022 End: 06-07-2023 traZODone (Desyrel) 50 MG ta blet Problems Active Problems Problem Classification Problem Date Documented Date Episodic/Chronic Acquired foot deformities (4 sources) Other acquired deformities of unspecified foot; Translations: [Other acquired deformities of unspecified foot] Onset: 02-20-2018 Episodic Acute bronchitis (3 sources) Acute bronchitis with bronchospasm; Translations: [Acute bronchitis, unspecified] Onset: 05-13-2022 Episodic Diseases of white blood cells (20 sources) Leukocytosis; Translations: [Elevated white blood cell count, unspecified] Onset: 09-27-2021 Chronic Disorders of teeth and jaw (1 source) Tenderness of right temporomandibular joint; Translations: [Arthralgia of right temporomandibular joint] 08-29-2023 Episodic Fever of unknown origin (5 sources) Fever; Translations: [Fever, unspecified] Episodic Genitourinary symptoms and ill-defined conditions (4 sources) Dysuria; Translations: [Dysuria] 09-28-2022 Episodic Hemorrhoids (2 sources) Thrombosed external hemorrhoids; Translations: [Perianal venous thrombosis] 03-08-2023 Episodic Intestinal infection (1 source) Viral gastroenteritis; Translations: [Viral gastroenteritis] Episodic Nausea and vomiting (20 sources) Intractable nausea and vomiting; Translations: [Hyperemesis] Onset: 12-03-2019 12-03-2019 Episodic Other acquired deformities (1 source) Deformity of lower limb Episodic Other connective tissue disease (4 sources) Achilles tendinitis, right leg; Translations: [Achilles tendinitis, right leg] Onset: 02-20-2018 Episodic Other connective tissue disease (4 sources) Achilles tendinitis, left leg; Translations: [Achilles tendinitis, left leg] Onset: 02-20-2018 Episodic Other connective tissue disease (1 source) Hand cramps; Translations: [Cramp and spasm] 09-26-2023 Episodic Other disorders of stomach and duodenum (2 sources) Cyclical vomiting syndrome; Translations: [Cyclical vomiting syndrome unrelated to migraine] 10-25-2023 Episodic Other ear and sense organ disorders (1 source) Tinnitus; Translations: [Tinnitus, unspecified ear] 08-29-2023 Episodic Other ear and sense organ disorders (1 source) Pain of ear structure; Translations: [Otalgia, bilateral] 08-29-2023 Episodic Other hereditary and degenerative nervous system conditions (4 sources) Dystonia; Translations: [Dystonia, unspecified] 05-04-2022 Chronic Other hereditary and degenerative nervous system conditions (1 source) Dystonia, unspecified; Translations: [Abnormal involuntary movements] Chronic Other nervous system disorders (1 source) Carpal tunnel syndrome of right wrist; Translations: [Carpal tunnel syndrome, right upper limb] Chronic Other nervous system disorders (1 source) Bilateral carpal tunnel syndrome; Translations: [Carpal tunnel syndrome, bilateral upper limbs] Chronic Other nervous system disorders (2 sources) Carpal tunnel syndrome of left wrist; Translations: [Carpal tunnel syndrome, left upper limb] Chronic Other nervous system disorders (1 source) Postoperative pain ; Translations: [Other acute postprocedural pain] Episodic Other non-traumatic joint disorders (4 sources) Pain in right ankle and joints of right foot; Translations: [Acute right ankle pain] Onset: 03-06-2018 Episodic Other non-traumatic joint disorders (2 sources) Pain in left ankle and joints of left foot; Translations: [Pain in left ankle and joints of left foot] Onset: 03-06-2018 Episodic Other nutritional; endocrine; and metabolic disorders (1 source) Hypomagnesemia; Translations: [Hypomagnesemia] Onset: 05-07-2022 Chronic Other nutritional; endocrine; and metabolic disorders (1 source) Obese class II; Translations: [Obesity, unspecified] Onset: 05-09-2022 05-09-2022 Chronic Otitis media and related conditions (1 source) Dysfunction of bilateral eustachian tubes; Translations: [Unspecified Eustachian tube disorder, bilateral] 08-29-2023 Episodic Poisoning by other medications and drugs (5 sources) Overdose of opiate; Translations: [Poisoning by unspecified narcotics, undetermined, initial encounter] Onset: 05-30-2022 Episodic Residual codes; unclassified (5 sources) Tobacco use and exposure - finding; Translations: [Tobacco use] 01-22-2020 Episodic Respiratory failure; insufficiency; arrest (adult) (8 sources) Acute respiratory failure; Translations: [Acute respiratory failure with hypoxia] Onset: 05-30-2022 Episodic Substance-related disorders (20 sources) Polysubstance abuse ; Translations: [Other psychoactive substance abuse, uncomplicated] Onset: 10-22-2021 Chronic Substance-related disorders (20 sources) Finding related to substance use; Translations: [Opioid use, unspecified, uncomplicated] Onset: 07-25-2021 Episodic Syncope (5 sources) Syncope; Translations: [Syncope and collapse] Episodic Unclassified (2 sources) Cyclical vomiting syndrome unrelated to migraine; Translations: [Cyclical vomiting syndrome unrelated to migraine] Onset: 10-25-2023 Past or Other Problems Problem Classification Problem Date Documented Da te Episodic/Chronic Abdominal pain (20 sources) Abdominal pain; Translations: [Unspecified abdominal pain] Onset: 07-20-2021 Episodic Conditions associated with dizziness or vertigo (3 sources) Dizziness; Translations: [Dizziness and giddiness] Onset: 09-26-2023 09-26-2023 Episodic Fluid and electrolyte disorders (5 sources) Hypokalemia; Translations: [Dehydration] Onset: 05-07-2022 10-25-2023 Episodic Noninfectious gastroenteritis (17 sources) Gastroenteritis; Translations: [Noninfective gastroenteritis and colitis, unspecified] Onset: 09-27-2021 Episodic Other connective tissue disease (2 sources) Cramp and spasm; Translations: [Cramp and spasm] Onset: 09-26-2023 Episodic Other gastrointestinal disorders (4 sources) Diarrhea, unspecified; Translations: [Diarrhea, unspecified] Onset: 07-20-2021 Episodic Other non-traumatic joint disorders (17 sources) Ankle pain; Translations: [Pain in unspecified ankle and joints of unspecified foot] Onset: 03-06-2018 03-06-2018 Episodic Sprains and strains (1 source) Sprain thumb, interphalangeal joint, nonspecific; Translations: [Sprain of interphalangeal joint of left thumb, initial encounter] Episodic Superficial injury; contusion (5 sources) Superficial foreign body of unspecified finger, initial encounter; Translations: [Superficial foreign body (splinter) of finger(s), without major open wound and without mention of infection] Onset: 08-22-2023 02-23-2023 Episodic Unclassified (1 source) Achilles tendinitis of both lower extremities Unclassified (3 sources) Acute right ankle pain Results Test Name Value Interpretation Reference Range Facility Laboratory - Drug toxicology on 12-03-2024 Ethanol Screen Ql (U) Negative CUTOFF :500 ng/mL [facility] Work Phone: RFLX - CANNABINOIDS, MS, UR RFX Routineon 12-03-2024 Cannabinoids Confirm Ql (U) Positive [facility] Work Phone: Carboxy tetrahydrocannabinol Confirm (U) [Mass/Vol] 971 ng/mg creat [facility] Work Phone: RFLX - GABAPENTIN LEVEL Rout ineon 12-03-2024 Gabapentin Confirm (U) [Mass/Vol] PRESENT [facility] Work Phone: Gabapentin Confirm Ql (U) Positive [facility] Work Phone: TOXASSURE FLEX 23, UR W/DL U rine Routineon 12-03-2024 1-Hydroxymidazolam Screen Ql (U) Not detected [facility] Work Phone: 6-Monoacetylmorphine (6-PARTH) Screen Ql (U) Negative CUTOFF:10 ng/mL [facility] Work Phone: 7-Aminoclonazepam/Creati nine (U) [Mass ratio] Not detected [facility] Work Phone: Acetaminophen Screen Ql (U) Negative CUTOFF:5.0 ug/mL [facility] Work Phone: Alpha hydroxyalprazolam/Creati nine (U) [Mass ratio] Not detected [facility] Work Phone: Alpha hydroxytriazolam/Creatin ine Confirm (U) [Mass ratio] Not detected [facility] Work Phone: ALPRAZolam/Creatinine Confirm (U) [Mass ratio] Not detected [facility] Work Phone: Amino Chloropyridine Not detected [facility] Work Phone: Amphetamines Screen method >500 ng/mL Ql (U) Negative CUTOFF:300 ng/mL [facility] Work Phone: Barbiturates Screen Ql (U) Negative CUTOFF:200 ng/mL [facility] Work Phone: Benzodiazepines screen method Nom (U) Negative [facility] Work Phone: Buprenorphine Screen Ql (U) Positive [facility] Work Phone: Buprenorphine/Creatinine (U) [Mass ratio] 326 ng/mg creat [facility] Work Phone: Cannabinoids Screen Ql (U) [facility] Work Phone: Carisoprodol Ql (U) Negative CUTOFF:1 00 ng/mL [facility] Work Phone: clonazePAM/Creatinine Confirm (U) [Mass ratio] Not detected [facility] Work Phone: Cocaine+Benzoylecgonine Screen Ql (U) Negative CUTOFF:150 ng/mL [facility] Work Phone: Creatinine (U) [Mass/Vol] 31 mg/dL >=20 mg/dL [facility] Work Phone: Dextromethorphan (U) [Mass/Vol] Not detected [facility] Work Phone: Dextromethorphan+Levorph anol Ql (U) Not detected [facility] Work Phone: diazePAM/Creatinine (U) [Mass ratio] Not detected [facility] Work Phone: Drugs identified Nom (U) Negative [facility] Work Phone: fentaNYL cutoff Screen (U) [Mass/Vol] Negative [facility] Work Phone: fentaNYL/Creatinine (U) [Mass ratio] Not detected [facility] Work Phone: Flunitrazepam Screen Ql (U) Not detected [facility] Work Phone: Gabapentin (U) [Mass/Vol] [facility] Work Phone: Hallucinogens Nom (U) Negative [facility] Work Phone: Hypnotics Screen Ql (U) Negative [facility] Work Phone: Ketamine Ql (U) Not detected [facility] Work Phone: LORazepam/Creatinine (U) [Mass ratio] Not detected [facility] Work Phone: Meperidine Screen Ql (U) Negative CUT OFF:200 ng/mL [facility] Work Phone: Methadone Screen Ql (U) Negative CUTO FF:100 ng/mL [facility] Work Phone: Methadone+Metabolite Screen Ql (U) Negative CUTOFF:100 ng/mL [facility] Work Phone: Midazolam/Creatinine Confirm (U) [Mass ratio] Not detected [facility] Work Phone: N-desalkylflurazepam/Cre atinine (U) [Mass ratio] Not detected [facility] Work Phone: Norbuprenorphine/Creatin ine (U) [Mass ratio] 352 ng/mg creat [facility] Work Phone: Nordiazepam/Creatinine (U) [Mass ratio] Not detected [facility] Work Phone: Norfentanyl/Creatinine (U) [Mass ratio] Not detected [facility] Work Phone: Norflunitrazepam (U) [Mass/Vol] Not detected [facility] Work Phone: Norketamine (U) [Mass/Vol] Not detected [facility] Work Phone: Opiates Screen (U) [Mass/Vol] Negative CUTOFF:100 ng/mL [facility] Work Phone: Oxazepam/Creatinine (U) [Mass ratio] Not detected [facility] Work Phone: oxyCODONE cutoff Screen (U) [Mass/Vol] Negative CUTOFF:100 ng/mL [facility] Work Phone: Phencyclidine Ql (U) Negative CUTOFF: 25 ng/mL [facility] Work Phone: Prescribed medications FINAL [facility] Work Phone: Propoxyphene Screen Ql (U) Negative CUTOFF:300 ng/mL [facility] Work Phone: Tapentadol cutoff Screen (U) [Mass/Vol] Negative CUTOFF:200 ng/mL [facility] Work Phone: Temazepam/Creatinine (U) [Mass ratio] Not detected [facility] Work Phone: traMADol Screen Ql (U) Negative CUTOF F:200 ng/mL [facility] Work Phone: Zaleplon (U) [Mass/Vol] Not detected [facility] Work Phone: Zolpidem gzxuqg-[id number] Screen Ql (U) Not detected [facility] Work Phone: Zolpidem Screen Ql (U) Not detected [facility] Work Phone: Gavakencg-A-upuja (U) [Mass/Vol] Not detected [facility] Work Phone: CHLAMYDIA, GONORRHOEAE, AND TRICHOMONAS VAGINALIS, KATLYN Urine Urine Routineon 11-28-2024 C. trachomatis rRNA KATLYN+probe Ql (Unsp spec) Negative Negative [facility] Work Phone: N. gonorrhoeae rRNA KATLYN+probe Ql (Unsp spec) Negative Negative [facility] Work Phone: T. vaginalis rRNA KATLYN+probe Ql (Unsp spec) Negative Negative [facility] Work Phone: COMPREHENSIVE METABOLIC PANE L Routineon 11-27-2024 Albumin [Mass/Vol] 4.4 g/dL 4.1 - 5.1 g/dL [facility] Work Phone: ALP [Catalytic activity/Vol] 110 U/L 44 - 121 IU/L [facility] Work Phone: ALT [Catalytic activity/Vol] 55 U/L High 0 - 44 IU/L [facility] Work Phone: AST [Catalytic activity/Vol] 56 U/L High 0 - 40 IU/L [facility] Work Phone: Bilirubin [Mass/Vol] mg/dL 0.0 - 1 .2 mg/dL [facility] Work Phone: Calcium [Mass/Vol] 9.3 mg/dL 8.7 - 10. 2 mg/dL [facility] Work Phone: Chloride [Moles/Vol] 103 mmol/L 96 - 10 6 mmol/L [facility] Work Phone: CO2 [Moles/Vol] 19 mmol/L Low 20 - 29 mmol/L [facility] Work Phone: Creatinine [Mass/Vol] 0.94 mg/dL 0.76 - 1.27 mg/dL [facility] Work Phone: Globulin (S) [Mass/Vol] 2.6 g/dL 1.5 - 4.5 g/dL [facility] Work Phone: Glucose [Mass/Vol] 84 mg/dL 70 - 99 mg/dL [facility] Work Phone: Potassium [Moles/Vol] 4.1 mmol/L 3.5 - 5.2 mmol/L [facility] Work Phone: Protein [Mass/Vol] 7 g/dL 6.0 - 8.5 g/dL [facility] Work Phone: Sodium [Moles/Vol] 139 mmol/L 134 - 144 mmol/L [facility] Work Phone: Urea nitrogen [Mass/Vol] 15 mg/dL 6 - 20 mg/dL [facility] Work Phone: Urea nitrogen/Creatinine [Mass ratio] 16 mg/mg 9 - 20 [facility] Work Phone: HEMOGLOBIN GLYCOSYLATED A1C Routineon 11-27-2024 HbA1c (Bld) [Mass fraction] 5.6 % 4.8 - 5.6 % [facility] Work Phone: HIV 1/0/2 AG/AB W/CASCADE RF LX SUPPLEMENTAL TESTING Routineon 11-27-2024 HIV 1+2 Ab+HIV1 p24 Ag IA Ql Non-Reactive Non Reactive [facility] Work Phone: LIPID PANEL Routineon 2024 Cholesterol [Mass/Vol] 170 mg/dL 100 - 199 mg/dL [facility] Work Phone: Cholesterol in HDL [Mass/Vol] 30 mg/dL Low >39 mg/dL [facility] Work Phone: Cholesterol in LDL [Mass/Vol] 114 mg/dL High 0 - 99 mg/dL [facility] Work Phone: Cholesterol in VLDL [Mass/Vol] 26 mg/dL 5 - 40 mg/dL [facility] Work Phone: Triglyceride [Mass/Vol] 145 mg/dL 0 - 149 mg/dL [facility] Work Phone: RFLX-INTERPRETATION Routineo n 11-27-2024 HCV Ab IA Ql [facility] Work Phone: RPR (MONITOR) W/REFL TITER R outineon 11-27-2024 Observation interpretation (Unsp spec) [Interp] [facility] Work Phone: Reagin Ab RPR Ql (S) Non-Reactive Non Reactive [facility] Work Phone: VIRAL HEPATITIS SCREENING AN D DIAGNOSIS (HAV, HBV, HCV) Routineon 11-27-2024 HAV Ab IA Ql (S) Negative Negative [facility] Work Phone: HBV core Ab IA Ql Negative Negative [facility] Work Phone: HBV surface Ab Ql (S) Reactive [facility] Work Phone: HBV surface Ag IA Ql Negative Negative [facility] Work Phone: HCV Ab IA Ql Non-Reactive Non Reactive [facility] Work Phone: Interpretation and review of laboratory results [facility] Work Phone: Laboratory comment William (Report) [facility] Work Phone: Laboratory - Drug toxicology on 11-16-2024 Ethanol Screen Ql (U) Negative CUTOFF :500 ng/mL [facility] Work Phone: RFLX - CANNABINOIDS, MS, UR RFX Routineon 11-16-2024 Cannabinoids Confirm Ql (U) Positive [facility] Work Phone: Carboxy tetrahydrocannabinol Confirm (U) [Mass/Vol] >1124 [facility] Work Phone: RFLX - GABAPENTIN LEVEL Rout ineon 11-16-2024 Gabapentin Confirm (U) [Mass/Vol] PRESENT [facility] Work Phone: Gabapentin Confirm Ql (U) Positive [facility] Work Phone: TOXASSURE FLEX 23, UR W/DL U rine Routineon 11-16-2024 1-Hydroxymidazolam Screen Ql (U) Not detected [facility] Work Phone: 6-Monoacetylmorphine (6-PARTH) Screen Ql (U) Negative CUTOFF:10 ng/mL [facility] Work Phone: 7-Aminoclonazepam/Creati nine (U) [Mass ratio] Not detected [facility] Work Phone: Acetaminophen Screen Ql (U) Negative CUTOFF:5.0 ug/mL [facility] Work Phone: Alpha hydroxyalprazolam/Creati nine (U) [Mass ratio] Not detected [facility] Work Phone: Alpha hydroxytriazolam/Creatin ine Confirm (U) [Mass ratio] Not detected [facility] Work Phone: ALPRAZolam/Creatinine Confirm (U) [Mass ratio] Not detected [facility] Work Phone: Amino Chloropyridine Not detected [facility] Work Phone: Amphetamines Screen method >500 ng/mL Ql (U) Negative CUTOFF:300 ng/mL [facility] Work Phone: Barbiturates Screen Ql (U) Negative CUTOFF:200 ng/mL [facility] Work Phone: Benzodiazepines screen method Nom (U) Negative [facility] Work Phone: Buprenorphine Screen Ql (U) Positive [facility] Work Phone: Buprenorphine/Creatinine (U) [Mass ratio] 382 ng/mg creat [facility] Work Phone: Cannabinoids Screen Ql (U) [facility] Work Phone: Carisoprodol Ql (U) Negative CUTOFF:1 00 ng/mL [facility] Work Phone: clonazePAM/Creatinine Confirm (U) [Mass ratio] Not detected [facility] Work Phone: Cocaine+Benzoylecgonine Screen Ql (U) Negative CUTOFF:150 ng/mL [facility] Work Phone: Creatinine (U) [Mass/Vol] 89 mg/dL >=20 mg/dL [facility] Work Phone: Dextromethorphan (U) [Mass/Vol] Not detected [facility] Work Phone: Dextromethorphan+Levorph anol Ql (U) Not detected [facility] Work Phone: diazePAM/Creatinine (U) [Mass ratio] Not detected [facility] Work Phone: Drugs identified Nom (U) Negative [facility] Work Phone: fentaNYL cutoff Screen (U) [Mass/Vol] Negative [facility] Work Phone: fentaNYL/Creatinine (U) [Mass ratio] Not detected [facility] Work Phone: Flunitrazepam Screen Ql (U) Not detected [facility] Work Phone: Gabapentin (U) [Mass/Vol] [facility] Work Phone: Hallucinogens Nom (U) Negative [facility] Work Phone: Hypnotics Screen Ql (U) Negative [facility] Work Phone: Ketamine Ql (U) Not detected [facility] Work Phone: LORazepam/Creatinine (U) [Mass ratio] Not detected [facility] Work Phone: Meperidine Screen Ql (U) Negative CUT OFF:200 ng/mL [facility] Work Phone: Methadone Screen Ql (U) Negative CUTO FF:100 ng/mL [facility] Work Phone: Methadone+Metabolite Screen Ql (U) Negative CUTOFF:100 ng/mL [facility] Work Phone: Midazolam/Creatinine Confirm (U) [Mass ratio] Not detected [facility] Work Phone: N-desalkylflurazepam/Cre atinine (U) [Mass ratio] Not detected [facility] Work Phone: Norbuprenorphine/Creatin ine (U) [Mass ratio] 345 ng/mg creat [facility] Work Phone: Nordiazepam/Creatinine (U) [Mass ratio] Not detected [facility] Work Phone: Norfentanyl/Creatinine (U) [Mass ratio] Not detected [facility] Work Phone: Norflunitrazepam (U) [Mass/Vol] Not detected [facility] Work Phone: Norketamine (U) [Mass/Vol] Not detected [facility] Work Phone: Opiates Screen (U) [Mass/Vol] Negative CUTOFF:100 ng/mL [facility] Work Phone: Oxazepam/Creatinine (U) [Mass ratio] Not detected [facility] Work Phone: oxyCODONE cutoff Screen (U) [Mass/Vol] Negative CUTOFF:100 ng/mL [facility] Work Phone: [phone] Phencyclidine Ql (U) Negative CUTOFF: 25 ng/mL [facility] Work Phone: Prescribed medications FINAL [facility] Work Phone: Propoxyphene Screen Ql (U) Negative CUTOFF:300 ng/mL [facility] Work Phone: Tapentadol cutoff Screen (U) [Mass/Vol] Negative CUTOFF:200 ng/mL [facility] Work Phone: Temazepam/Creatinine (U) [Mass ratio] Not detected [facility] Work Phone: traMADol Screen Ql (U) Negative CUTOF F:200 ng/mL [facility] Work Phone: Zaleplon (U) [Mass/Vol] Not detected [facility] Work Phone: Zolpidem [id number]-4-qupnjemiorg Screen Ql (U) Not detected [facility] Work Phone: Zolpidem Screen Ql (U) Not detected [facility] Work Phone: Najmsokta-A-advxb (U) [Mass/Vol] Not detected [facility] Work Phone: Absolute neutrophil countOrd ered By: Alexsander Mckenna on 09-03-2024 Neutrophils (Bld) [#/Vol] 8.5 10*3/uL High 2.0-7.7 [facility] Alcohol, Blood (Medical)-Ser umon 09-03-2024 SERUM ETOH < 10.1 Normal <=10.0 [facility] Comment on above: Result Comment: This test is for medical purposes only. The legal definition of intoxication varies according to local law. Performed By: #### L 500.2500, L505.5000, L501.9100, L100.0100 ####[facility] [address] [place], [place], [id number] Amphetamines Screen method > 1000 ng/mL Ql (U)Ordered By: Alexsander Mckenna on 09-03-2024 Amphetamines Ql (U) Negative <1000 ng/mL [facility] Urine Barbiturates Screen Negative < 200 ng/mL [facility] Anion gap in Serum or Plasma Ordered By: Alexsander Mckenna on 09-03-2024 Anion gap [Moles/Vol] 16 mmol/L High 5-15 [facility] BUN/creatinine ratioOrdered By: Alexsander Mckenna on 09-03-2024 Urea nitrogen/Creatinine [Mass ratio] 9.3 mg/mg Low 10-20 [facility] Basic Metabolic Profile (BMP )on 09-03-2024 BUN/CRE 9.3 RATIO Low 10-20 [facility] Comment on above: Performed By: #### L 500.2500, L505.5000, L501.9100, L100.0100 ####[facility] [address] [place], [place], [id number] Calcium [Mass/Vol] 9.7 mg/dL Normal 7.6-11.0 [facility] Comment on above: Performed By: #### L 500.2500, L505.5000, L501.9100, L100.0100 ####[facility] [address] [place], [address] Chloride [Moles/Vol] 102 mmol/L Normal 98-108 [facility] Comment on above: Performed By: #### L 500.2500, L505.5000, L501.9100, L100.0100 ####[facility] [address] [place], [address] CO2 [Moles/Vol] 23.7 mmol/L Normal 21.0-32.0 [facility] Comment on above: Performed By: #### L 500.2500, L505.5000, L501.9100, L100.0100 ####[facility] [address] [place], [address] Creatinine [Mass/Vol] 1.02 mg/dL Normal 0.70-1.20 [facility] Comment on above: Performed By: #### L 500.2500, L505.5000, L501.9100, L100.0100 ####[facility] [address] [place], [address] ECRCL 97.23 ml/min Normal 50-250 [facility] Comment on above: Performed By: #### L 500.2500, L505.5000, L501.9100, L100.0100 ####[facility] [address] [place], [address] GAP 16 High 5-15 [facility] Comment on above: Performed By: #### L 500.2500, L505.5000, L501.9100, L100.0100 ####[facility] [address] [place], [address] GFR/1.73 sq M.predicted among non-blacks MDRD (S/P/Bld) [Vol rate/Area] 96 mL/min/{1.73_m2} Normal >60 [facility] Comment on above: Result Comment: mL/m in/1.73m2 CKD-EPI Creatinine Equation (2020) Performed By: #### L 500.2500, L505.5000, L501.9100, L100.0100 ####[facility] [address] [place], [address] Glucose [Mass/Vol] 103 mg/dL High 70-99 [facility] Comment on above: Performed By: #### L 500.2500, L505.5000, L501.9100, L100.0100 ####[facility] [address] [place], [address] Potassium [Moles/Vol] 2.9 mmol/L Low 3.3-5.1 [facility] Comment on above: Performed By: #### L 500.2500, L505.5000, L501.9100, L100.0100 ####[facility] [address] [place], [address] Sodium [Moles/Vol] 141 mmol/L Normal 133-145 [facility] Comment on above: Performed By: #### L 500.2500, L505.5000, L501.9100, L100.0100 ####[facility] [address] [place], [address] Urea nitrogen [Mass/Vol] 9 mg/dL Normal 4-19 [facility] Comment on above: Performed By: #### L 500.2500, L505.5000, L501.9100, L100.0100 ####[facility] [address] [place], [address] Basophil percentageOrdered B y: Alexsander Mckenna on 09-03-2024 Basophils/100 WBC (Bld) 0.5 % 0-1 [facility] CBC W/Diff, Automatedon 04-0 Absolute Lymph 1.66 X10 3/uL Normal 0.83-4.51 [facility] Comment on above: Performed By: #### L 500.2500, L505.5000, L501.9100, L100.0100 ####[facility] [address] [place], [address] Absolute Neut 8.5 X10 3/uL High 2.0-7.7 [facility] Comment on above: Performed By: #### L 500.2500, L505.5000, L501.9100, L100.0100 ####[facility] [address] [place], [address] Basophils/100 WBC (Bld) 0.5 % Normal 0-1 [facility] Comment on above: Performed By: #### L 500.2500, L505.5000, L501.9100, L100.0100 ####[facility] [address] [place], [address] Eosinophils/100 WBC (Bld) 0.1 % Normal 0-5 [facility] Comment on above: Performed By: #### L 500.2500, L505.5000, L501.9100, L100.0100 ####[facility] [address] [place], [address] Erythrocyte distribution width (RBC) [Ratio] 12.1 % Normal 11.6-14.6 [facility] Comment on above: Performed By: #### L 500.2500, L505.5000, L501.9100, L100.0100 ####[facility] [address] [place], [address] Hematocrit (Bld) [Volume fraction] 44.9 % Normal 40-54 [facility] Comment on above: Performed By: #### L 500.2500, L505.5000, L501.9100, L100.0100 ####[facility] [address] [place], [address] Hemoglobin (Bld) [Mass/Vol] 16.0 g/dL Normal 13.0-16.5 [facility] Comment on above: Performed By: #### L 500.2500, L505.5000, L501.9100, L100.0100 ####[facility] [address] [place], [address] IG% 0.300 Normal 0.0-0.9 [facility] Comment on above: Result Comment: IG% - Immature Granulocytes (promyelocytes, myelocytes and metamyelocytes) > 1% indicates that a LEFT SHIFT is Present. Performed By: #### L 500.2500, L505.5000, L501.9100, L100.0100 ####[facility] [address] [place], [address] Lymphocytes/100 WBC (Bld) 15.4 % Low 19-41 [facility] Comment on above: Performed By: #### L 500.2500, L505.5000, L501.9100, L100.0100 ####[facility] [address] [place], [address] MCH (RBC) [Entitic mass] 30.9 pg Normal 27.0-32.0 [facility] Comment on above: Performed By: #### L 500.2500, L505.5000, L501.9100, L100.0100 ####[facility] [address] [place], [address] MCHC (RBC) [Mass/Vol] 35.6 g/dL Normal 32-36 [facility] Comment on above: Performed By: #### L 500.2500, L505.5000, L501.9100, L100.0100 ####[facility] [address] [place], [address] MCV (RBC) [Entitic vol] 86.7 fL Normal 80-94 [facility] Comment on above: Performed By: #### L 500.2500, L505.5000, L501.9100, L100.0100 ####[facility] [address] [place], [address] Monocytes/100 WBC (Bld) 5.0 % Normal 0-10 [facility] Comment on above: Performed By: #### L 500.2500, L505.5000, L501.9100, L100.0100 ####[facility] [address] [place], [address] Neutrophils/100 WBC (Bld) 78.7 % High 47-70 [facility] Comment on above: Performed By: #### L 500.2500, L505.5000, L501.9100, L100.0100 ####[facility] [address] [place], [address] Nucleated RBC (Bld) [#/Vol] 0 10*3/uL Normal 0-5 [facility] Comment on above: Performed By: #### L 500.2500, L505.5000, L501.9100, L100.0100 ####[facility] [address] [place], [address] Platelet mean volume (Bld) [Entitic vol] 8.7 fL Normal 6.2-12.0 [facility] Comment on above: Performed By: #### L 500.2500, L505.5000, L501.9100, L100.0100 ####[facility] [address] [place], [address] Platelets (Bld) [#/Vol] 375 10*3/uL Normal 150-450 [facility] Comment on above: Performed By: #### L 500.2500, L505.5000, L501.9100, L100.0100 ####[facility] [address] [place], [address] RBC (Bld) [#/Vol] 5.18 10*6/uL Normal 4.6-6.2 [facility] Comment on above: Performed By: #### L 500.2500, L505.5000, L501.9100, L100.0100 ####[facility] [address] [place], [address] RDW SD 38.3 fl Normal 35.1-43.9 [facility] Comment on above: Performed By: #### L 500.2500, L505.5000, L501.9100, L100.0100 ####[facility] [address] [place], [address] WBC (Bld) [#/Vol] 10.8 10*3/uL Normal 4.4-11.0 [facility] Comment on above: Performed By: #### L 500.2500, L505.5000, L501.9100, L100.0100 ####[facility] [address] [place], [address] Carbon dioxide, total [Moles /volume] in Central venous bloodOrdered By: Alexsander Mckenna on 09-03-2024 CO2 [Moles/Vol] 23.7 mmol/L 21.0-32.0 [facility] Chloride assayOrdered By: Shweta Mckenna on 09-03-2024 Chloride [Moles/Vol] 102 mmol/L 98-108 [facility] Emergency Department Summary on 09-03-2024 Emergency Department Summary [facility] Records Department [address] [place] [address] Emergency Department Summary 09/03/24 MR#: [id number] Acct: [id number] Name: MAYITO FORBES Rep #: [id number] : 1985 39 From: Alexsander Mckenna DO PCP: Natasha Luciano 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 Medical History Heroin abuse Opiate withdrawal Mandible fracture Carpal tunnel syndrome, bilateral Anxiety Depression Asthma Drug abuse IV drug user Substance abuse Home Medications ???Medication ???Instructions ???Recorded ???Last Taken ???Type venlafaxine 75 mg capsule,extended 150 mg PO DAILY mood 04/21/22 History release 24 hr venlafaxine 150 mg 150 mg PO DAILY DEPRESSION 4 Unknown History capsule,extended release 24 hr bupropion HCl 100 mg tablet,12 hr 100 mg PO DAILY 09/03/24 Unknown History sustained-release nicotine 14 mg/24 hr daily 1 patch topical DAILY 09/03/24 Unk nown History transdermal patch ondansetron 4 mg disintegrating 4 mg PO Q8H PRN PRN Nausea #10 tab s 09/03/24 Unknown Rx tablet Allergy/AdvReac Type Severity Reaction Status Date / Time No Known Allergies Allergy Verified 09/28/22 10:17 Social History Smoking Status: Former smoker Smokeless tobacco user: chewing tobacco alcohol intake: never substance use type: opiates EXAM Physical Exam Const Vital Signs: 09/03/24 19:07 09/03/24 21:00 09/03/24 21:50 Temperature 97.9 F Temperature Source Temporal Pulse Rate 89 53 L 97 Respiratory Rate 22 H 18 18 Blood Pressure 170/119 H Blood Pressure Mean 136 Pulse Ox 97 95 97 Oxygen Delivery Method Room Air Room Air Room Air [facility] MDM Narrative Medical decision making narrative: HISTORY OF PRESENT ILLNESS: Chief complaint: Opiate detox 39-year-old male here for heroin detox. He complains of nausea and diaphoresis. Notes he last used heroin 8 days ago. Notes he got up in control shot 4 days ago. States he is interested in gabapentin and marijuana detoxification. REVIEW OF SYSTEMS: Pertinent positives: Nausea, diaphoresis Pertinent negatives: Chest pain PHYSICAL EXAM: Nursing triage notes reviewed, Vital signs reviewed Constitutional: please see mdm HENT: MMM Eyes: Pupils equal round and reactive to light, Extraocular muscles intact Neck: No stridor, no JVD, full neck ROM Lungs: Clear to auscultation, No wheezing or rales. No increased work of breathing, no conversational dyspnea, no accessory muscle use, no nasal flaring. No respiratory distress noted Heart: Regular rate and rhythm, No murmurs, No rubs and No gallops, 2+ distal pulses (radial, femoral, posterior tibial) in all extremities Abdomen: Soft, there is no tenderness, rigidity, rebound or guarding, no obvious peritoneal signs, no palpable pulsatile abdominal masses, no auscultated abdominal bruit : No CVAT Extremities: No edema Neuro: No new focal neurological deficits, cranial nerves II through XII intact, 5/5 strength in all present extremities. Intact sensation to light touch in all present extremities, 2+ reflexes bilateral patella tendons. Skin: No rash or lesions noted MEDICAL DECISION MAKING: Chief Complaint: please see HPI External records reviewed: Reviewed prior ED visit Factors affecting care: opiate abuse Social determinants of health: Polysubstance abuse History obtained from others: none Consults: Hospitalist (Dr. Ramirez) MDM Narrative: The patient was initially hypertensive, afebrile nontoxic-appearing. Exam without focal abdominal maladies including peritoneal signs Obtain medical clearance labs. ALL IMAGES (IF OBTAINED) HAVE BEEN PERSONALLY REVIEWED AND INTERPRETED BY MYSELF. CBC showed no leukocytosis suggestive admission, no anemia or thrombocytopenia BMP showed mild hypokalemia likely secondary to vomiting no sign of LORI Urine tox screen negative Serum alcohol negative Given patient has been opiate free per his report for 8 days and his COWS score (2) is low I do not suspect he is suffering from acute opiate withdrawal. As such he does not require admission for opiate detoxification. Discussed case with hospitalist who agreed the patient is at id criteria for admission at this time. The patient and/or family, caregivers express understanding. The patient and/or family, caregivers agrees with the plan. Shared decision making: I will have a discussion with the patient and or visitors regarding risk/benefits of further testing or admission. They will be made aware of of the risk/benefits inherent in this decision they w (more content not included)... Normal [facility] Eosinophil percentageOrdered By: Alexsander Mckenna on 09-03-2024 Eosinophils/100 WBC (Bld) 0.1 % 0-5 [facility] Erythrocyte distribution wid th (RBC) [Ratio]Ordered By: Alexsander Mckenna on 09-03-2024 Erythrocyte distribution width (RBC) [Entitic vol] 38.3 fL 35.1-43.9 [facility] Erythrocyte distribution wid th ratioOrdered By: Alexsander Mckenna on 09-03-2024 Erythrocyte distribution width (RBC) [Ratio] 12.1 % 11.6-14.6 [facility] Estimation of creatinine zuleyka aranceOrdered By: Alexsander Mckenna on 09-03-2024 Estimated Creatinine Clearance Calc 97.23 ml/min 50-250 [facility] Ethanol [Mass/Vol]Ordered By : Alexsander Mckenna on 09-03-2024 Ethyl Alcohol Level < 10.1 mg/dL <10.1 [facility] Comment on above: This test is for med ical purposes only. The legal definition of intoxication varies according to local law. GFR/1.73 sq M.predicted brittani g non-blacks MDRD (S/P/Bld) [Vol rate/Area]Ordered By: Alexsander Mckenna on 09-03-2024 Estimated GFR (MDRD) Non-Af Amer 96 >60 [facility] Comment on above: mL/min/1.73m2 CKD-EP I Creatinine Equation (2020) Hematocrit Auto (Bld) [Volum e fraction]Ordered By: Alexsander Mckenna on 09-03-2024 Hematocrit (Bld) [Volume fraction] 44.9 % 40-54 [facility] Hemoglobin measurementOrdere d By: Alexsander Mckenna on 09-03-2024 Hemoglobin (Bld) [Mass/Vol] 16.0 g/dL 13.0-16.5 [facility] Immature granulocytes/100 WB C Auto (Bld)Ordered By: Alexsander Mckenna on 09-03-2024 Immature granulocytes/100 WBC (Bld) 0.300 % 0.0-0.9 [facility] Comment on above: IG% - Immature Granu locytes (promyelocytes, myelocytes and metamyelocytes) > 1% indicates that a LEFT SHIFT is Present. Lymphocytes Auto (Unsp spec) [#/Vol]Ordered By: Alexsander Mckenna on 09-03-2024 Lymphocytes (Bld) [#/Vol] 1.66 10*3/uL 0.83-4.51 [facility] Lymphocytes/100 WBC Auto (Un sp spec)Ordered By: Alexsander Mckenna on 09-03-2024 Lymphocytes/100 WBC (Bld) 15.4 % Low 19-41 [facility] MCV (mean corpuscular volume ) determinationOrdered By: Alexsander Mckenna on 09-03-2024 MCV (RBC) [Entitic vol] 86.7 fL 80-94 [facility] Mean corpuscular hemoglobin (MCH) determinationOrdered By: Alexsander Mckenna on 09-03-2024 MCH (RBC) [Entitic mass] 30.9 pg 27.0-32.0 [facility] Mean corpuscular hemoglobin concentration (MCHC) determinationOrdered By: Alexsander Mckenna on 09-03-2024 MCHC (RBC) [Mass/Vol] 35.6 g/dL 32-36 [facility] Mean platelet volume determi nationOrdered By: Alexsander Mckenna on 09-03-2024 Platelet mean volume (Bld) [Entitic vol] 8.7 fL 6.2-12.0 [facility] Methadone, urineOrdered By: Alexsander Mckenna on 09-03-2024 Urine Methadone Screen Negative < 300 ng/mL [facility] Monocyte percentageOrdered B y: Alexsander Mckenna on 09-03-2024 Monocytes/100 WBC (Bld) 5.0 % 0-10 [facility] Neutrophil percentageOrdered By: Alexsander Mckenna on 09-03-2024 Neutrophils/100 WBC (Bld) 78.7 % High 47-70 [facility] No Panel InformationOrdered By: Alexsander Mckenna on 09-03-2024 Urine Buprenorphine Qualitative Negative < 200 ng/mL [facility] Urine Oxycodone Screen Negative < 100 ng/mL [facility] Nucleated red blood cell per centageOrdered By: Alexsander Mckenna on 09-03-2024 Nucleated RBC/100 WBC (Bld) [Ratio] 0 % 0-5 [facility] Platelet countOrdered By: dalila Mckenna on 09-03-2024 Platelets (Bld) [#/Vol] 375 10*3/uL 150-450 [facility] Potassium (Unsp spec) [Mass/ Vol]Ordered By: Alexsander Mckenna on 09-03-2024 Potassium [Moles/Vol] 2.9 mmol/L Low 3.3-5.1 [facility] Quantitative urine opiates m easurementOrdered By: Alexsander Mckenna on 09-03-2024 Opiates Ql (U) Negative < 300 ng/mL [facility] RBC Auto (Bld) [#/Vol]Ordere d By: Alexsander Mckenna on 09-03-2024 RBC (Bld) [#/Vol] 5.18 10*6/uL 4.6-6.2 [facility] Serum creatinine measurement (mass/volume)Ordered By: Alexsander Mckenna on 09-03-2024 Creatinine [Mass/Vol] 1.02 mg/dL 0.70-1.20 [facility] Serum glucose measurement (m ass/volume)Ordered By: Alexsander Mckenna on 09-03-2024 Glucose [Mass/Vol] 103 mg/dL High 70-99 [facility] Serum or plasma calcium kirsty urement (mass/volume)Ordered By: Alexsander Mckenna on 09-03-2024 Calcium [Mass/Vol] 9.7 mg/dL 7.6-11.0 [facility] Serum or plasma urea nitroge n measurement (mass/volume)Ordered By: Alexsander Mckenna on 09-03-2024 Urea nitrogen [Mass/Vol] 9 mg/dL 4-19 [facility] Sodium levelOrdered By: Shayan Mckenna on 09-03-2024 Sodium [Moles/Vol] 141 mmol/L 133-145 [facility] Urine Drug Screen (VISTA)on 09-03-2024 AMPHETAMINES Negative Normal <1000 ng/mL [facility] Comment on above: Performed By: #### L 500.2500, L505.5000, L501.9100, L100.0100 ####[facility] [address] [place], [place], [id number] BARBITIURATES Negative Normal < 200 ng/mL [facility] Comment on above: Performed By: #### L 500.2500, L505.5000, L501.9100, L100.0100 ####[facility] [address] [place], [address] BENZODIAZIPINE Negative Normal < 200 ng/mL [facility] Comment on above: Performed By: #### L 500.2500, L505.5000, L501.9100, L100.0100 ####[facility] [address] [place], [address] BUP Ur Drug Scr Negative Normal < 200 ng/mL [facility] Comment on above: Performed By: #### L 500.2500, L505.5000, L501.9100, L100.0100 ####[facility] [address] [place], [place], [phone] COCAINE Negative Normal < 300 ng/mL [facility] Comment on above: Performed By: #### L 500.2500, L505.5000, L501.9100, L100.0100 ####[facility] [address] [place], [place], [phone] Fentanyl Positive Normal [facility] Comment on above: Result Comment: If c onfirmation testing is needed, a separate order will be required to send out testing to the reference laboratory. Performed By: #### L 500.2500, L505.5000, L501.9100, L100.0100 ####[facility] [address] [place], [place], [phone] METHADONE Negative Normal < 300 ng/mL [facility] Comment on above: Performed By: #### L 500.2500, L505.5000, L501.9100, L100.0100 ####[facility] [address] [place], [place], [phone] OPIATES Negative Normal < 300 ng/mL [facility] Comment on above: Performed By: #### L 500.2500, L505.5000, L501.9100, L100.0100 ####[facility] [address] [place], [place], [phone] OXYCODONE Negative Normal < 100 ng/mL [facility] Comment on above: Performed By: #### L 500.2500, L505.5000, L501.9100, L100.0100 ####[facility] [address] [place], [address] PCP Negative Normal < 25 ng/mL [facility] Comment on above: Performed By: #### L 500.2500, L505.5000, L501.9100, L100.0100 ####[facility] [address] [place], [address] THC Positive Normal < 50 ng/mL [facility] Comment on above: Result Comment: If c onfirmation testing is needed, a separate order will be required to send out testing to the reference laboratory. Performed By: #### L 500.2500, L505.5000, L501.9100, L100.0100 ####[facility] [address] [place], [address] Urine benzodiazepine levelOr dered By: Alexsander Mckenna on 09-03-2024 Benzodiazepines Ql (U) Negative < 200 ng/mL [facility] Urine cocaine levelOrdered B y: Alexsander Mckenna on 09-03-2024 Cocaine Ql (U) Negative < 300 ng/mL [facility] Urine xeson-0-zprtdycrqyodwd abinol (THC) measurementOrdered By: Alexsander Mckenna on 09-03-2024 Cannabinoids Screen Ql (U) Positive < 50 ng/mL [facility] Comment on above: If confirmation test ing is needed, a separate order will be required to send out testing to the reference laboratory. Urine phencyclidine (PCP) de tectionOrdered By: Alexsander Mckenna on 09-03-2024 Phencyclidine Ql (U) Negative < 25 ng/mL [facility] White blood cell (WBC) count Ordered By: Alexsander Mckenna on 09-03-2024 WBC (Bld) [#/Vol] 10.8 10*3/uL 4.4-11.0 [facility] fentaNYL Screen Ql (U)Ordere d By: Alexsander Mckenna on 09-03-2024 Urine Fentanyl Screen Positive [facility] Comment on above: If confirmation test ing is needed, a separate order will be required to send out testing to the reference laboratory. 12 Lead EKGon 09-01-2024 12 Lead EKG [facility] Cardiovascular Services [address] [place] [address] 12 Lead EKG 09/01/24 1038 MR#: [id number] Acct: [id number] Name: MAYITO FORBES Rep #: [id number] : 1985 39 From: Man Burrell MD Attending Dr: Status: DEP ER Ordering Dr: Chemo Dunlap DO Date: 5 Location: ED Sex: M AA Admitted: Test Reason : SUBSTANCE ABUSE Blood Pressure : */* mmHG Vent. Rate : 99 BPM Atrial Rate : 99 BPM P-R Int : 158 ms QRS Dur : 66 ms QT Int : 354 ms P-R-T Axes : 67 20 24 degrees QTcB Int : 454 ms Normal sinus rhythm Normal ECG Confirmed by SEPIDEH NEGRETE, RAFAEL ([id number]), editor in chief JAMIL TIJERINA ([id number]) on 09/03/2024 5:59:08 AM Referred By: Confirmed By: RAFAEL BURRELL MD 09/03/24 0559 Date Man Burrell MD CC: Dr. Chemo Dunlap, ; Natasha Luciano NP Signed Normal [facility] Absolute neutrophil countOrd ered By: Chemo Dunlap on 09-01-2024 Neutrophils (Bld) [#/Vol] 16.1 10*3/uL High 2.0-7.7 [facility] Alcohol, Blood (Medical)-Ser umon 09-01-2024 SERUM ETOH < 10.1 Normal <=10.0 [facility] Comment on above: Result Comment: This test is for medical purposes only. The legal definition of intoxication varies according to local law. Performed By: #### L 501.9100, L505.5000 ####[facility] [address] [place], [address] Anion gap in Serum or Plasma Ordered By: Chemo Dunlap on 09-01-2024 Anion gap [Moles/Vol] 18 mmol/L High 5-15 [facility] BUN/creatinine ratioOrdered By: Chemolizzie Dunlap on 09-01-2024 Urea nitrogen/Creatinine [Mass ratio] 8.2 mg/mg Low 10-20 [facility] Basic Metabolic Profile (BMP )on 09-01-2024 BUN/CRE 8.2 RATIO Low 10-20 [facility] Comment on above: Performed By: #### L 100.0100, L500.2500 #### [facility] [address] [place], [address] Calcium [Mass/Vol] 10.2 mg/dL Normal 7.6-11.0 [facility] Comment on above: Performed By: #### L 100.0100, L500.2500 #### [facility] [address] [place], [address] Chloride [Moles/Vol] 105 mmol/L Normal 98-108 [facility] Comment on above: Performed By: #### L 100.0100, L500.2500 #### [facility] [address] [place], [address] CO2 [Moles/Vol] 17.9 mmol/L Low 21.0-32.0 [facility] Comment on above: Performed By: #### L 100.0100, L500.2500 #### [facility] [address] [place], [address] Creatinine [Mass/Vol] 1.06 mg/dL Normal 0.70-1.20 [facility] Comment on above: Performed By: #### L 100.0100, L500.2500 #### [facility] [address] [place], [address] ECRCL 93.56 ml/min Normal 50-250 [facility] Comment on above: Performed By: #### L 100.0100, L500.2500 #### [facility] [address] [place], [address] GAP 18 High 5-15 [facility] Comment on above: Performed By: #### L 100.0100, L500.2500 #### [facility] [address] [place], [address] GFR/1.73 sq M.predicted among non-blacks MDRD (S/P/Bld) [Vol rate/Area] 92 mL/min/{1.73_m2} Normal >60 [facility] Comment on above: Result Comment: mL/m in/1.73m2 CKD-EPI Creatinine Equation (2020) Performed By: #### L 100.0100, L500.2500 #### [facility] [address] [place], [address] Glucose [Mass/Vol] 146 mg/dL High 70-99 [facility] Comment on above: Performed By: #### L 100.0100, L500.2500 #### [facility] [address] [place], [address] Potassium [Moles/Vol] 3.8 mmol/L Normal 3.3-5.1 [facility] Comment on above: Performed By: #### L 100.0100, L500.2500 #### [facility] [address] [place], [address] Sodium [Moles/Vol] 141 mmol/L Normal 133-145 [facility] Comment on above: Performed By: #### L 100.0100, L500.2500 #### [facility] [address] [place], [address] Urea nitrogen [Mass/Vol] 9 mg/dL Normal 4-19 [facility] Comment on above: Performed By: #### L 100.0100, L500.2500 #### [facility] [address] [place], [address] Basophil percentageOrdered B y: Chemo Dunlap on 09-01-2024 Basophils/100 WBC (Bld) 0.3 % 0-1 [facility] CBC W/Diff, Automatedon Absolute Lymph 1.01 X10 3/uL Normal 0.83-4.51 [facility] Comment on above: Performed By: #### L 100.0100, L500.2500 ####[facility] [address] [place], [address] Absolute Neut 16.1 X10 3/uL High 2.0-7.7 [facility] Comment on above: Performed By: #### L 100.0100, L500.2500 ####[facility] [address] [place], [address] Basophils/100 WBC (Bld) 0.3 % Normal 0-1 [facility] Comment on above: Performed By: #### L 100.0100, L500.2500 ####[facility] [address] [place], [address] Eosinophils/100 WBC (Bld) 0.0 % Normal 0-5 [facility] Comment on above: Performed By: #### L 100.0100, L500.2500 ####[facility] [address] [place], [address] Erythrocyte distribution width (RBC) [Ratio] 11.9 % Normal 11.6-14.6 [facility] Comment on above: Performed By: #### L 100.0100, L500.2500 ####[facility] [address] [place], [address] Hematocrit (Bld) [Volume fraction] 46.7 % Normal 40-54 [facility] Comment on above: Performed By: #### L 100.0100, L500.2500 ####[facility] [address] [place], [address] Hemoglobin (Bld) [Mass/Vol] 16.9 g/dL High 13.0-16.5 [facility] Comment on above: Performed By: #### L 100.0100, L500.2500 ####[facility] [address] [place], [address] IG% 0.400 Normal 0.0-0.9 [facility] Comment on above: Result Comment: IG% - Immature Granulocytes (promyelocytes, myelocytes and metamyelocytes) > 1% indicates that a LEFT SHIFT is Present. Performed By: #### L 100.0100, L500.2500 ####[facility] [address] [place], [address] Lymphocytes/100 WBC (Bld) 5.6 % Low 19-41 [facility] Comment on above: Performed By: #### L 100.0100, L500.2500 ####[facility] [address] [place], [address] MCH (RBC) [Entitic mass] 31.0 pg Normal 27.0-32.0 [facility] Comment on above: Performed By: #### L 100.0100, L500.2500 ####[facility] [address] [place], [address] MCHC (RBC) [Mass/Vol] 36.2 g/dL High 32-36 [facility] Comment on above: Performed By: #### L 100.0100, L500.2500 ####[facility] [address] [place], [address] MCV (RBC) [Entitic vol] 85.5 fL Normal 80-94 [facility] Comment on above: Performed By: #### L 100.0100, L500.2500 ####[facility] [address] [place], [address] Monocytes/100 WBC (Bld) 4.3 % Normal 0-10 [facility] Comment on above: Performed By: #### L 100.0100, L500.2500 ####[facility] [address] [place], [address] Neutrophils/100 WBC (Bld) 89.4 % High 47-70 [facility] Comment on above: Performed By: #### L 100.0100, L500.2500 ####[facility] [address] [place], [address] Nucleated RBC (Bld) [#/Vol] 0 10*3/uL Normal 0-5 [facility] Comment on above: Performed By: #### L 100.0100, L500.2500 ####[facility] [address] [place], [address] Platelet mean volume (Bld) [Entitic vol] 9.0 fL Normal 6.2-12.0 [facility] Comment on above: Performed By: #### L 100.0100, L500.2500 ####[facility] [address] [place], [address] Platelets (Bld) [#/Vol] 445 10*3/uL Normal 150-450 [facility] Comment on above: Performed By: #### L 100.0100, L500.2500 ####[facility] [address] [place], [address] RBC (Bld) [#/Vol] 5.46 10*6/uL Normal 4.6-6.2 [facility] Comment on above: Performed By: #### L 100.0100, L500.2500 ####[facility] [address] [place], [address] RDW SD 37.0 fl Normal 35.1-43.9 [facility] Comment on above: Performed By: #### L 100.0100, L500.2500 ####[facility] [address] [place], [address] WBC (Bld) [#/Vol] 18.1 10*3/uL High 4.4-11.0 [facility] Comment on above: Performed By: #### L 100.0100, L500.2500 ####[facility] [address] [place], [address] Carbon dioxide, total [Moles /volume] in Central venous bloodOrdered By: Chemo Dunlap on 09-01-2024 CO2 [Moles/Vol] 17.9 mmol/L Low 21.0-32.0 [facility] Chloride assayOrdered By: Abdi Dunlap on 09-01-2024 Chloride [Moles/Vol] 105 mmol/L 98-108 [facility] Emergency Department Summary on 09-01-2024 Emergency Department Summary [facility] Department [address] [place] [address] Emergency Department Summary 09/01/24 MR#: [id number] Acct: [id number] Name: MAYITO FORBES Rep #: [id number] : 1985 39 From: Chemo Dunlap DO PCP: Natasha Luciano 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 Patient states that he has been on Vivitrol injections monthly up until 2 months ago. He states that 4 days ago he used IV heroin. Patient states he went to the clinic yesterday and received his Vivitrol injection. He states shortly after he started to withdraw from opiates. He states that started with anxiety, muscle aches, restlessness, yawning, sweating it is now turned into nausea, and vomiting. Patient states he has tried Zofran at home with little relief. He states that he is not interested in admission for opiate detox. He states he just wants symptom control and discharged home. He states this feels like his similar withdrawals. Was asymptomatic prior to receiving the injection. Review of systems: See HPI Medications: As listed on the chart Allergies: As listed on the chart PFSH: Per chart Vital signs: As listed on the chart. Reviewed. Physical exam: Gen: A O x3, restless, holding emesis bag Head: Normocephalic, atraumatic Eyes: No sclera icterus, conjunctiva clear, PERRL, EOMI ENT: Dry mucous membranes Neck: Trachea midline, No JVD CV: tachycardic, regular rhythm, no murmurs, no peripheral edema Resp: Lungs CTA BL, no w/r/c GI: Abd soft, non-distended, non-tender, no r/r/g Musc: Full ROM, no deformity Skin: Sweating, dry, multiple tattoos Neuro: Alert, oriented, grossly intact, sensation intact Psych: Cooperative [facility] Medical History Heroin abuse Opiate withdrawal Mandible fracture Carpal tunnel syndrome, bilateral Anxiety Depression Asthma Drug abuse IV drug user Substance abuse Home Medications ???Medication ???Instructions ???Recorded ???Last Taken ???Type venlafaxine 75 mg capsule,extended 150 mg PO DAILY mood 04/21/22 History release 24 hr venlafaxine 150 mg 150 mg PO DAILY DEPRESSION 4 Unknown History capsule,extended release 24 hr Allergy/AdvReac Type Severity Reaction Status Date / Time No Known Allergies Allergy Verified 09/28/22 10:17 Social History Smoking Status: Current every day smoker tobacco type: cigarettes Smokeless tobacco user: chewing tobacco alcohol intake: never substance use type: opiates EXAM Physical Exam Const Vital Signs: 09/01/24 10:11 09/01/24 11:09 09/01/24 12:38 Temperature 99.3 F H Temperature Source Temporal Pulse Rate 110 H 75 65 Respiratory Rate 20 H 19 H 19 H Blood Pressure 140/93 H 139/89 H Blood Pressure Mean 108 105 Pulse Ox 100 100 93 Oxygen Delivery Method Room Air Room Air Room Air 09/01/24 13:00 Temperature Temperature Source Pulse Rate 75 Respiratory Rate 17 Blood Pressure 139/89 H Blood Pressure Mean 105 Pulse Ox 100 Oxygen Delivery Method Room Air MDM MDM MDM Narrative Medical decision making narrative: 39-year-old male with past medical history of IV drug abuse with heroin presents for evaluation of opiate withdrawal. Patient states that he has been on Vivitrol injections monthly up until 2 months ago. He states that 4 days ago he used IV heroin. He received a Vivitrol injection yesterday and now is an active opiate withdrawal. Feels like similar episodes. States he wants symptom control and does not want to be admitted. Has tried Zofran with little relief. On presentation, patient is restless and sweaty. He is tachycardic. Differential diagnosis includes but is not limited to opiate withdrawal, electrolyte abnormality, LORI, substance intoxication. Prior to medication being given, EKG was obtained. This is personally reviewed and interpreted by me, ED physician. EKG has artifact secondary to patient's restlessness. Heart rate 99. Normal sinus rhythm with a QTc of 454. This is mildly elevated. Will be careful with QTc prolonging medications. However given patient's symptoms, NS bolus, Reglan, clonidine, Tylenol ordered. Basic labs ordered with urine drug screen and alcohol level. CBC with a leukocytosis of 18.1 as well as hemoconcentration with a hemoglobin of 16.9. I think this is likely reactive from his nausea and vomiting and suspected dehydration. Patient denies any infectious type symptoms. BMP is positive for dehydration wi (more content not included)... Normal [facility] Eosinophil percentageOrdered By: Chemo Dunlap on 09-01-2024 Eosinophils/100 WBC (Bld) 0.0 % 0-5 [facility] Erythrocyte distribution wid th (RBC) [Ratio]Ordered By: [facility] on 09-01-2024 Erythrocyte distribution width (RBC) [Entitic vol] 37.0 fL 35.1-43.9 [facility] Erythrocyte distribution wid th ratioOrdered By: Chemo Germán on 09-01-2024 Erythrocyte distribution width (RBC) [Ratio] 11.9 % 11.6-14.6 [facility] Estimation of creatinine zuleyka aranceOrdered By: Chemolizzie Dunlap on 09-01-2024 Estimated Creatinine Clearance Calc 93.56 ml/min 50-250 [facility] Ethanol [Mass/Vol]Ordered By : Chemo Dunlap on 09-01-2024 Ethyl Alcohol Level < 10.1 mg/dL <10.1 [facility] Comment on above: This test is for med ical purposes only. The legal definition of intoxication varies according to local law. GFR/1.73 sq M.predicted brittani g non-blacks MDRD (S/P/Bld) [Vol rate/Area]Ordered By: Chemo Dunlap on 09-01-2024 Estimated GFR (MDRD) Non-Af Amer 92 >60 [facility] Comment on above: mL/min/1.73m2 CKD-EP I Creatinine Equation (2020) Hematocrit Auto (Bld) [Volum e fraction]Ordered By: Chemo Germán on 09-01-2024 Hematocrit (Bld) [Volume fraction] 46.7 % 40-54 [facility] Hemoglobin measurementOrdere d By: Chemo Dunlap on 09-01-2024 Hemoglobin (Bld) [Mass/Vol] 16.9 g/dL High 13.0-16.5 [facility] Immature granulocytes/100 WB C Auto (Bld)Ordered By: Chemo Dunlap on 09-01-2024 Immature granulocytes/100 WBC (Bld) 0.400 % 0.0-0.9 [facility] Comment on above: IG% - Immature Granu locytes (promyelocytes, myelocytes and metamyelocytes) > 1% indicates that a LEFT SHIFT is Present. Lymphocytes Auto (Unsp spec) [#/Vol]Ordered By: Chemo Dunlap on 09-01-2024 Lymphocytes (Bld) [#/Vol] 1.01 10*3/uL 0.83-4.51 [facility] Lymphocytes/100 WBC Auto (Un sp spec)Ordered By: Chemo Dunlap on 09-01-2024 Lymphocytes/100 WBC (Bld) 5.6 % Low 19-41 [facility] MCV (mean corpuscular volume ) determinationOrdered By: Chemo Dunlap on 09-01-2024 MCV (RBC) [Entitic vol] 85.5 fL 80-94 [facility] Mean corpuscular hemoglobin (MCH) determinationOrdered By: Chemo Dunlap on 09-01-2024 MCH (RBC) [Entitic mass] 31.0 pg 27.0-32.0 [facility] Mean corpuscular hemoglobin concentration (MCHC) determinationOrdered By: Chemo Dunlap on 09-01-2024 MCHC (RBC) [Mass/Vol] 36.2 g/dL High 32-36 [facility] Mean platelet volume determi nationOrdered By: Chemo Dunlap on 09-01-2024 Platelet mean volume (Bld) [Entitic vol] 9.0 fL 6.2-12.0 [facility] Monocyte percentageOrdered B y: Chemo Dunlap on 09-01-2024 Monocytes/100 WBC (Bld) 4.3 % 0-10 [facility] Neutrophil percentageOrdered By: Chemo Dunlap on 09-01-2024 Neutrophils/100 WBC (Bld) 89.4 % High 47-70 [facility] Nucleated red blood cell per centageOrdered By: Chemo Dunlap on 09-01-2024 Nucleated RBC/100 WBC (Bld) [Ratio] 0 % 0-5 [facility] Platelet countOrdered By: Abdi Dunlap on 09-01-2024 Platelets (Bld) [#/Vol] 445 10*3/uL 150-450 [facility] Potassium (Unsp spec) [Mass/ Vol]Ordered By: Chemo Dunlap on 09-01-2024 Potassium [Moles/Vol] 3.8 mmol/L 3.3-5.1 [facility] RBC Auto (Bld) [#/Vol]Ordere d By: Chemo Dunlap on 09-01-2024 RBC (Bld) [#/Vol] 5.46 10*6/uL 4.6-6.2 [facility] Serum creatinine measurement (mass/volume)Ordered By: Chemo Dunlap on 09-01-2024 Creatinine [Mass/Vol] 1.06 mg/dL 0.70-1.20 [facility] Serum glucose measurement (m ass/volume)Ordered By: Chemo Dunlap on 09-01-2024 Glucose [Mass/Vol] 146 mg/dL High 70-99 [facility] Serum or plasma calcium kirsty urement (mass/volume)Ordered By: Chemo Brito on 09-01-2024 Calcium [Mass/Vol] 10.2 mg/dL 7.6-11.0 [facility] Serum or plasma urea nitroge n measurement (mass/volume)Ordered By: Chemo Dunlap on 09-01-2024 Urea nitrogen [Mass/Vol] 9 mg/dL 4-19 [facility] Sodium levelOrdered By: Zach Dunlap on 09-01-2024 Sodium [Moles/Vol] 141 mmol/L 133-145 [facility] Urine Drug Screen (VISTA)on 09-01-2024 AMPHETAMINES Normal <1000 ng/mL [facility] Comment on above: Result Comment: PT H BEEN DISCHARGED FROM ED Performed By: #### L 501.9100, L505.5000 ####[facility] [address] [facility] [address] BARBITIURATES Normal < 200 ng/mL [facility] Comment on above: Result Comment: PT H BEEN DISCHARGED FROM ED Performed By: #### L 501.9100, L505.5000 ####[facility] [address] [place], [address] BENZODIAZIPINE Normal < 200 ng/mL [facility] Comment on above: Result Comment: PT H BEEN DISCHARGED FROM ED Performed By: #### L 501.9100, L505.5000 ####[facility] [address] [place], [address] BUP Ur Drug Scr Normal < 200 ng/mL [facility] Comment on above: Result Comment: PT H BEEN DISCHARGED FROM ED Performed By: #### L 501.9100, L505.5000 ####[facility] [address] [place], [address] COCAINE Normal < 300 ng/mL [facility] Comment on above: Result Comment: PT H BEEN DISCHARGED FROM ED Performed By: #### L 501.9100, L505.5000 ####[facility] [address] [place], [address] Fentanyl Normal [facility] Comment on above: Result Comment: PT H BEEN DISCHARGED FROM ED Performed By: #### L 501.9100, L505.5000 ####[facility] [address] [place], [address] METHADONE Normal < 300 ng/mL [facility] Comment on above: Result Comment: PT H BEEN DISCHARGED FROM ED Performed By: #### L 501.9100, L505.5000 ####[facility] [address] [place], [address] OPIATES Normal < 300 ng/mL [facility] Comment on above: Result Comment: PT H BEEN DISCHARGED FROM ED Performed By: #### L 501.9100, L505.5000 ####[facility] [address] [place], [address] OXYCODONE Normal < 100 ng/mL [facility] Comment on above: Result Comment: PT H BEEN DISCHARGED FROM ED Performed By: #### L 501.9100, L505.5000 ####[facility] [address] [place], [address] PCP Normal < 25 ng/mL [facility] Comment on above: Result Comment: PT H BEEN DISCHARGED FROM ED Performed By: #### L 501.9100, L505.5000 ####[facility] [address] [place], [address] THC Normal < 50 ng/mL [facility] Comment on above: Result Comment: PT H BEEN DISCHARGED FROM ED Performed By: #### L 501.9100, L505.5000 ####[facility] [address] [place], [address] White blood cell (WBC) count Ordered By: Chemo Dunlap on 09-01-2024 WBC (Bld) [#/Vol] 18.1 10*3/uL High 4.4-11.0 [facility] ED Nursing Noteon 08-14-2024 ED Nursing Note Spoke with Kristy at [facility] who states that they do not have a bed for the patient and they do not know when they will get a bed. She states that they will call when they have a bed [facility] [phone] 08-13-2024 [phone] Notified that jenni snell was OON with insurance and needs transferred to in-network facility when medically stable. Did discuss with ER attending and patient already admitted to [facility]. Did send epic chat updating him of this and provided him with in-network facility and their contact information..Electronic ally signed by Seven Maldonado RN on 08/13/2024 at 4:09 PM [facility] CBC W Auto Differential pane l (Bld)Ordered By: Shakira Julio on 08-13-2024 Basophils (Bld) [#/Vol] 0 10*3/uL 0.0 - 0.2 10*3/uL [facility] Basophils/100 WBC (Bld) 0.3 % 0.0 - 2.0 % [facility] Eosinophils (Bld) [#/Vol] 0 10*3/uL 0.0 - 0.5 10*3/uL [facility] Eosinophils/100 WBC (Bld) 0.2 % 0.0 - 6.0 % [facility] Erythrocyte distribution width (RBC) [Ratio] 11.7 % 11.5 - 15.0 % [facility] Hematocrit (Bld) [Volume fraction] 45.9 % 40.0 - 52.0 % [facility] Hemoglobin (Bld) [Mass/Vol] 16.9 g/dL 13.0 - 18.0 g/dL [facility] Immature granulocytes (Bld) [#/Vol] 0.1 10*3/uL High NINF - 0.1 10*3/uL [facility] Immature granulocytes/100 WBC (Bld) 0.4 % 0.0 - 2.0 % [facility] Interpretation and review of laboratory results Abnormal [facility] Lymphocytes (Bld) [#/Vol] 1.1 10*3/uL 1.0 - 4.3 10*3/uL [facility] Lymphocytes/100 WBC (Bld) 9.1 % Low 15.0 - 45.0 % [facility] MCH (RBC) [Entitic mass] 31.1 pg 26. 0 - 34.0 pg [facility] MCHC (RBC) [Mass/Vol] 36.8 % High 30.5 - 36.0 % [facility] MCV (RBC) [Entitic vol] 84.4 fL 77.0 - 99.0 fL [facility] Monocytes (Bld) [#/Vol] 0.7 10*3/uL 0.0 - 0.9 10*3/uL [facility] Monocytes/100 WBC (Bld) 6.2 % 5.0 - 13.0 % [facility] Neutrophils (Bld) [#/Vol] 9.7 10*3/uL High 1.8 - 7.5 10*3/uL [facility] Neutrophils/100 WBC (Bld) 83.8 % High 38.0 - 82.0 % [facility] Nucleated RBC/100 WBC (Bld) [Ratio] 0 % [facility] Platelet mean volume (Bld) [Entitic vol] 8.9 fL Low 9.0 - 12.7 fL [facility] Platelets (Bld) [#/Vol] 392 10*3/uL 140 - 440 10*3/uL [facility] RBC (Bld) [#/Vol] 5.44 10*6/uL 4.40 - 5.9 0 10*6/uL [facility] WBC (Bld) [#/Vol] 11.6 10*3/uL High 3.6 - 10.7 10*3/uL [facility] CBC WITH AUTO DIFFERENTIALon 08-13-2024 Basophils (Bld) [#/Vol] 0.0 10*3/uL Normal 0.0-0.2 [facility] Comment on above: Performed By: #### L [id number] ####[employer]: PARTH ROWLEYGAVIN ([id number])[facility] (SBHLAB)[address] Basophils/100 WBC (Bld) 0.3 % Normal 0.0-2.0 [facility] Comment on above: Performed By: #### L [id number] ####[employer]: PARTH ROWLEYGAVIN ([id number])[facility] ([facility])[address] Eosinophils (Bld) [#/Vol] 0.0 10*3/uL Normal 0.0-0.5 [facility] Comment on above: Performed By: #### L [id number] ####[employer]: PARTH ROWLEYGAVIN ([id number])[facility] ([facility])[address] Eosinophils/100 WBC (Bld) 0.2 % Normal 0.0-6.0 [facility] Comment on above: Performed By: #### L [id number] ####[employer]: PARTH TADEO ([id number])[facility] ([facility])[address] Erythrocyte distribution width (RBC) [Ratio] 11.7 % Normal 11.5-15.0 [facility] Comment on above: Performed By: #### L [id number] ####[employer]: PARTH TADEO ([id number])[facility] (SB[facility])[address] Hematocrit (Bld) [Volume fraction] 45.9 % Normal 40.0-52.0 [facility] Comment on above: Performed By: #### L [id number] ####[employer]: PARTH TADEO ([id number])[facility] ([facility])[address] Hemoglobin (Bld) [Mass/Vol] 16.9 g/dL Normal 13.0-18.0 [facility] Comment on above: Performed By: #### L [id number] ####[employer]: PARTH TADEO ([id number])[facility] (SB[facility])[address] IMMATURE GRANS % 0.4 % Normal 0.0-2.0 [facility] Comment on above: Performed By: #### L [id number] ####[employer]: PARTH TADEO ([id number])[facility] ([facility])[address] IMMATURE GRANS ABSOLUTE 0.1 10*3/uL High <0.1 [facility] Comment on above: Performed By: #### L [id number] ####[employer]: PARTH ROWLEYGAVIN ([id number])[facility] (SBAB)[address] Lymphocytes (Bld) [#/Vol] 1.1 10*3/uL Normal 1.0-4.3 [facility] Comment on above: Performed By: #### L [id number] ####[employer]: PARTH TADEO ([id number])[facility] ([facility] Lymphocytes/100 WBC (Bld) 9.1 % Low 15.0-45.0 [facility] Comment on above: Performed By: #### L [id number] ####[employer]: PARTH TADEO ([id number])[facility] ([facility])[address] MCH (RBC) [Entitic mass] 31.1 pg Normal 26.0-34.0 [facility] Comment on above: Performed By: #### L [id number] ####[employer]: PARTH TADEO ([id number])[facility] ([facility])[address] MCHC 36.8 % High 30.5-36.0 [facility] Comment on above: Performed By: #### L [id number] ####[employer]: PARTH COMBSCER ([id number])[facility] ([facility])[address] MCV (RBC) [Entitic vol] 84.4 fL Normal 77.0-99.0 [facility] Comment on above: Performed By: #### L [id number] ####[employer]: PARTH ROWLEYGAVIN ([id number])[facility] (SB[facility]AB)[address] Monocytes (Bld) [#/Vol] 0.7 10*3/uL Normal 0.0-0.9 [facility] Comment on above: Performed By: #### L [id number] ####[employer]: PARTH BARROWJUAN MANUEL ([id number])[facility] [place] ([facility])[address] Monocytes/100 WBC (Bld) 6.2 % Normal 5.0-13.0 [facility] Comment on above: Performed By: #### L [id number] ####[employer]: PARTH BARROWJUAN MANUEL ([id number])[facility] [place] ([facility])[address] NEUTROPHILS ABSOLUTE 9.7 10*3/uL High 1.8-7.5 [facility] Comment on above: Performed By: #### L [id number] ####[employer]: PARTH TADEO ([id number])[facility] [place] ([facility])[address] Neutrophils/100 WBC (Bld) 83.8 % High 38.0-82.0 [facility] Comment on above: Performed By: #### L [id number] ####[employer]: PARTH ROWLEYGAVIN ([id number])[facility] [place] ([facility])[address] NRBC 0.0 /100 WBCs Normal 0.0-2.0 [facility] Comment on above: Performed By: #### L [id number] ####[employer]: PARTH BARROWMorganGAVIN ([id number])[facility] (SB[facility])[address] Platelet mean volume (Bld) [Entitic vol] 8.9 fL Low 9.0-12.7 [facility] Comment on above: Performed By: #### L [id number] ####[employer]: PARTH CARLYLE ([id number])[facility] ([facility])[address] Platelets (Bld) [#/Vol] 392 10*3/uL Normal 140-440 [facility] Comment on above: Performed By: #### L [id number] ####[employer]: PARTH CARLYLE ([id number])[facility]ITAL[facility] (SB[facility]AB)[address] [place] [address] RBC (Bld) [#/Vol] 5.44 10*6/uL Normal 4.40-5.90 [facility] Comment on above: Performed By: #### L [id number] ####[employer]: PARTHSATINDER TADEO ([id number])[facility]ITAL[facility] ([facility])[address] WBC (Bld) [#/Vol] 11.6 10*3/uL High 3.6-10.7 [facility] Comment on above: Performed By: #### L [id number] ####[employer]: PARTH TADEO ([id number])[facility] ([facility])[address] COMPLETE URINALYSISon 2024 BACTERIA (#/HPF) IN URINE Negative Normal Negative [facility] Comment on above: Performed By: #### L AB20, LAB15, LAB46 #### [employer]: LILIA KNOX ([id number]) [facility] ([facility]) [address] [place] [address] BILIRUBIN, TOTAL PRESENCE IN URINE Negative Normal Negative [facility] Comment on above: Performed By: #### L AB20, LAB15, LAB46 #### [employer]: LILIA KNOX ([id number]) [facility] ([facility] [address] [place] [address] Clarity (U) Clear Normal Clear [facility] Comment on above: Performed By: #### L AB20, LAB15, LAB46 #### [employer]: LILIA KNOX ([id number]) [facility] ([facility]) [address] [place] [address] Color (U) Yellow Normal Lt. Yellow [facility] Comment on above: Performed By: #### L AB20, LAB15, LAB46 #### [employer]: LILIA KNOX ([id number]) [facility] ([facility]) [address] [place] [address] GLUCOSE (MG/DL) IN URINE Normal Normal Nor mal (<70) [facility] Comment on above: Performed By: #### L AB20, LAB15, LAB46 #### [employer]: LIILA KNOX ([id number]) [facility] ([facility]) [address] [place] [address] HEMOGLOBIN PRESENCE IN URINE Negative Normal Negative [facility] Comment on above: Performed By: #### L AB20, LAB15, LAB46 #### [employer]: LILIA KNOX ([id number]) [facility] ([facility]) [address] [place] [address] Ketones Ql (U) >150 Abnormal Negative [facility] Comment on above: Performed By: #### L AB20, LAB15, LAB46 #### [employer]: LILIA KNOX ([id number]) [facility] ([facility]) [address] [place] [address] LEUKOCYTE ESTERASE PRESENCE IN URINE BY TEST STRIP Negative Normal Negative [facility] Comment on above: Performed By: #### L AB20, LAB15, LAB46 #### Quill Buncher And Sorter: LILIA KNOX ([phone]) [facility] [address] [place] [address] [place] MUCUS (#/LPF) IN URINE SEDIMENT Few Normal Negative [facility] Comment on above: Performed By: #### L AB20, LAB15, LAB46 #### Quill Buncher And Sorter: LILIA KNOX ([id number]) [facility] ([facility]) [address] [place] [address] NITRITE PRESENCE IN URINE Negative Normal Negative [facility] Comment on above: Performed By: #### L AB20, LAB15, LAB46 #### Quill Buncher And Sorter: LILIA KNOX ([id number]) [facility] ([facility]) [address] [place] [address] pH (U) 7.5 [pH] Normal 5.0-8.0 [facility] Comment on above: Performed By: #### L AB20, LAB15, LAB46 #### Quill Buncher And Sorter: LILIA KNOX ([phone]) [facility]) [address] [place] [address] Protein (U) [Mass/Vol] 50 mg/dL Abnormal Negative [facility] Comment on above: Performed By: #### Sandhya AB20, LAB15, LAB46 #### Quill Buncher [employer] Sorter: LILIA KNOX ([id number]) [facility] ([facility]) [address] [place] [address] RBC (#/HPF) IN URINE SEDIMENT 0-2 Normal 0-2 [facility] Comment on above: Performed By: #### L AB20, LAB15, LAB46 #### Quill Buncher [employer] Sorter: LILIA KNOX ([id number]) [facility] ([facility]) [address] [place] [address] Specific gravity (U) [Rel density] 1.030 Normal 1.005-1.030 [facility] Comment on above: Performed By: #### L AB20, LAB15, LAB46 #### Qu[employer] Buncher [employer] Sorter: LILIA KNOX ([id number]) [facility]) [address] [place] [address] SQUAMOUS EPITHELIAL CELLS (#/HPF) IN URINE SEDIMENT 0-2 Normal 3-5 [facility] Comment on above: Performed By: #### L AB20, LAB15, LAB46 #### Quill Buncher [employer] Sorter: LILIA KNOX ([id number]) [facility] ([facility]) [address] [place] [address] UROBILINOGEN (MG/DL) IN URINE Normal Normal Normal (0-1) [facility] Comment on above: Performed By: #### L AB20, LAB15, LAB46 #### Quill Buncher [employer] Sorter: LILIA KNOX ([id number]) [facility] ([facility]) [address] [place] [address] WBC (LEUKOCYTE) (#/HPF) IN URINE SEDIMENT 0-2 Normal 0-5 [facility] Comment on above: Performed By: #### L AB20, LAB15, LAB46 #### Quill Buncher And Sorter: LILIA KNOX ([id number]) [facility] ([facility]) [address] [place] [address] COMPREHENSIVE METABOLIC PANE Ehriberto 08-13-2024 Albumin [Mass/Vol] 4.3 g/dL Normal 3.5-5.0 [facility] Comment on above: Performed By: #### L [id number] #### Quill Buncher [employer] Sorter: LILIA KNOX ([id number]) [facility] ([facility]) [address] [place] [address] ALP [Catalytic activity/Vol] 109 U/L Normal 40-150 [facility] Comment on above: Performed By: #### L [id number] #### Quill Buncher [employer] Sorter: LILIA KNOX ([id number]) [facility] ([facility]) [address] [place] [address] ALT [Catalytic activity/Vol] 38 U/L Normal <40 [facility] Comment on above: Performed By: #### L [id number] #### Quill Buncher [employer] Sorter: LILIA KNOX ([id number]) [facility] ([facility]) [address] [place] [address] Anion gap [Moles/Vol] 16 mmol/L High 3-13 [facility] Comment on above: Performed By: #### L [id number] #### Quill Buncher [employer] Sorter: LILIA KNOX ([id number]) [facility] ([facility]) [address] [place] [address] AST [Catalytic activity/Vol] 33 U/L Normal <34 [facility] Comment on above: Performed By: #### L [id number] #### Quill Buncher [employer] Sorter: LILIA KNOX ([phone]) [facility]) [address] [place] [address] Bilirubin [Mass/Vol] 0.8 mg/dL Normal <1.2 [facility] Comment on above: Performed By: #### L [id number] #### Quill Buncher [employer] Sorter: LILIA KNOX ([id number]) [facility] ([facility]) [address] [place] [address] Calcium [Mass/Vol] 9.3 mg/dL Normal 8.4-10.2 [facility] Comment on above: Performed By: #### L [id number] #### Quill Buncher [employer] Sorter: LILIA KNOX ([id number]) [facility] ([facility]) [address] [place] [address] Chloride [Moles/Vol] 106 mmol/L Normal 98-107 [facility] Comment on above: Performed By: #### L [id number] #### Quill Buncher [employer] Sorter: LILIA KNOX ([id number]) [facility] ([facility]) [address] [place] [address] CO2 [Moles/Vol] 16 mmol/L Low 22-29 [facility] Comment on above: Performed By: #### L [id number] #### Quill Buncher And Sorter: LILIA KNOX ([id number]) [facility] ([facility]) [address] [place] [address] Creatinine [Mass/Vol] 0.80 mg/dL Normal 0.72-1.25 [facility] Comment on above: Performed By: #### L [id number] #### Quill Buncher And Sorter: LILIA KNOX ([id number]) [facility]) [address] [place] [address] GLOMERULAR FILTRATION RATE ML/MIN/1.73 SQ M.PREDICTED >90.0 Normal >60.0 [facility] Comment on above: Result Comment: Calc ulation based on the Chronic Kidney Disease Epidemiology Collaboration (CKD-EPI) equation refit without adjustment for race Performed By: #### L [id number] #### Quill Buncher And Sorter: LILIA KNOX ([id number]) [facility] ([facility]) [address] [place] [address] Glucose [Mass/Vol] 109 mg/dL High 74-100 [facility] Comment on above: Performed By: #### L [id number] #### Quill Buncher And Sorter: LILIA KNOX ([id number]) [facility] ([facility]) [address] [place] [address] Potassium [Moles/Vol] 3.7 mmol/L Normal 3.5-5.1 [facility] Comment on above: Result Comment: [facility] potassium values may be up to 0.5 mmol/L lower than serum values. Performed By: #### L [id number] #### Quill Buncher [employer] Sorter: LILIA KNOX ([id number]) [facility] ([facility]) [address] [place] [address] Protein [Mass/Vol] 7.8 g/dL Normal 6.4-8.3 [facility] Comment on above: Performed By: #### L [id number] #### Quill Buncher And Sorter: LILIA KNOX ([id number]) [facility] ([facility]) [address] [place] [address] Sodium [Moles/Vol] 138 mmol/L Normal 136-145 [facility] Comment on above: Performed By: #### L [id number] #### Quill Buncher And Sorter: LILIA KNOX ([id number]) [facility]) [address] [place] [address] Urea nitrogen [Mass/Vol] 13 mg/dL Normal 8-21 [facility] Comment on above: Performed By: #### L [id number] #### Quill Buncher And Sorter: LILIA KNOX ([id number]) [facility] ([facility]) [address] [place] [address] Comprehensive metabolic 1998 panelon 08-13-2024 Albumin [Mass/Vol] 4.3 g/dL 3.5 - 5.0 g/dL [facility] ALP [Catalytic activity/Vol] 109 U/L 40 - 150 U/L [facility] ALT [Catalytic activity/Vol] 38 U/L NINF - 40 U/L [facility] Anion gap [Moles/Vol] 16 mmol/L High 3 - 13 mmol/L [facility] AST [Catalytic activity/Vol] 33 U/L NINF - 34 U/L [facility] Bilirubin [Mass/Vol] 0.8 mg/dL NINF - 1.2 mg/dL [facility] Calcium [Mass/Vol] 9.3 mg/dL 8.4 - 10. 2 mg/dL [facility] Chloride [Moles/Vol] 106 mmol/L 98 - 10 7 mmol/L [facility] CO2 [Moles/Vol] 16 mmol/L Low 22 - 29 mmol/L [facility] Creatinine [Mass/Vol] 0.8 mg/dL 0.72 - 1.25 mg/dL [facility] GFR/1.73 sq M.predicted (S/P/Bld) [Vol rate/Area] - PINF [facility] Comment on above: Calculation based on the Chronic Kidney Disease Epidemiology Collaboration (CKD-EPI) equation refit without adjustment for race Glucose [Mass/Vol] 109 mg/dL High 74 - 100 mg/dL [facility] Interpretation and review of laboratory results Abnormal [facility] Potassium [Moles/Vol] 3.7 mmol/L 3.5 - 5.1 mmol/L [facility] Comment on above: Plasma potassium nadir ues may be up to 0.5 mmol/L lower than serum values. Protein [Mass/Vol] 7.8 g/dL 6.4 - 8.3 g/dL [facility] Sodium [Moles/Vol] 138 mmol/L 136 - 145 mmol/L [facility] Urea nitrogen [Mass/Vol] 13 mg/dL 8 - 21 mg/dL [facility] DRUGS OF ABUSEon 08-13-2024 AMPHETAMINE SCREEN Negative Normal [facility] Comment on above: Performed By: #### L [id number] ####Quill Buncher [employer] Sorter: PARTH TADEO ([id number])[facility] ([facility])[address] [place] [address] BARBITURATES SCREEN Negative Normal [facility] Comment on above: Performed By: #### L [id number] ####Quill Buncher And Sorter: PARTH TADEO ([id number])[facility] ([facility])[address] BENZODIAZEPINE SCREEN Negative Normal [facility] Comment on above: Performed By: #### L [id number] ####Quill Buncher And Sorter: PARTH TADEO ([id number])[facility] ([facility])[address] COCAINE METAB. SCREEN Negative Normal [facility] Comment on above: Performed By: #### L [id number] ####Quill Buncher And Sorter: PARTH TADEO ([id number])[facility] ([facility])[address] FENTANYL SCREEN, UR QUAL Positive Normal [facility] Comment on above: Result Comment: EZ Ding COMMENTS: The expected value for all of the drugs listed above is Negative. The following drugs or drug groups have been screened for by Immunoassay at the following thresholds: Amphetamine class (1000 ng/mL) Barbiturates (200 ng/mL) Benzodiazepines (200 ng/mL) Cocaine (300 ng/mL) Methadone (300 ng/mL) Opiates (300 ng/mL) Oxycodone (100 ng/mL) PCP (25 ng/mL) Fentanyl (1.0 ng/ml) NOTE: These results are for medical treatment only. Analysis performed using non-forensic procedures. POSITIVE results are NOT confirmed by a more specific alternative method unless requested. If confirmation is needed, request confirmation under separate order. Performed By: #### L [id number] ####Quill Buncher And Sorter: PARTH TADEO ([id number])[facility] ([facility])[address] METHADONE SCREEN Negative Normal [facility] Comment on above: Performed By: #### L [id number] ####Quill Buncher And Sorter: PARTH TADEO ([id number])[facility] ([facility])[address] OPIATES SCREEN Negative Normal [facility] Comment on above: Performed By: #### L [id number] ####Quill Buncher And Sorter: PARTH TADEO ([id number])[facility] ([facility])[address] OXYCODONE SCREEN Negative Normal [facility] Comment on above: Performed By: #### L [id number] ####Quill Buncher And Sorter: PARTH TADEO ([id number])[facility] ([facility])[address] PHENCYCLIDINE SCREEN Negative Normal [facility] Comment on above: Performed By: #### L [id number] ####Quill Buncher And Sorter: PARTH TADEO ([id number])[facility] ([facility])[address] ECG 12-LEADon 08-13-2024 ECG 12-LEAD IMPRESSION: Sinus rhythm Low voltage, extremity leads Compared to ECG 04/11/2024 01:17:19 Similar Electronically Signed On 08-13-2024 09:56:42 EDT by Edgar Powers Normal [facility] ED Nursing Noteon 08-13-2024 ED Nursing Note Pt continues to have intervals of sleeping and then vomiting. PRN to be adminsitered Normal [facility] ED Nursing Note Project CORETTA is available STATE-WIDE. Narcan/Naloxone is available WITHOUT prescription at most [place] [facility], including [facility], [facility], [facility], [employer], and others. It has a cost, but there is a free program through [facility] (and 47 other [facility]). A full list of pharmacies is available at the [place] [employer] website, but calling your local pharmacy is likely to be successful. You can buy it for $50-100 (insurance may cover it) and have it ready for another person. What is Demetrio HITCHCOCK? Project CORETTA is a community-based drug overdose prevention and education project. Participants receive training on: Recognizing the signs and symptoms of overdose Distinguishing between different types of overdose Performing rescue breathing Calling emergency medical services Administering intranasal Naloxone Demetrio CORETTA is named in memory of Estella Mcneil, who struggled with addiction for years before dying of a witnessed opioid overdose on March 01, 2009. Demetrio CORETTA is an initiative of the [facility] Opiate Task Force and is funded in part by the [facility] Alcohol, Drug Addiction and Mental Health (ADM) Services Board [facility] Alcohol, Drug Addiction & Mental Health Services [place] [id number] [email or web address] WALK-IN HOURS: Tuesdays (every hour) from 3pm - 6pm THIS IS A FREE SERVICE TO ALL PARTICIPANTS Deaths Avoided With Naloxone A community-based drug overdose prevention and education project Emergency first aid for a suspected opioid overdose: If a person is exhibiting symptoms of an opioid overdose, these following life-saving measures should be taken immediately: Check to see if they can respond Give them a light shake, yell their name. Any response? If you don't get a response, try a STERNUM RUB (rub your knuckles in the middle of their chest where the ribs meet for 10 seconds). Call You do not need to mention drugs when you call - provide basic information: Give the address and location. Say I have a person who has stopped breathing and is unresponsive. Perform Rescue Breathing Make sure nothing is in their mouth. Tilt head back, lift chin & pinch nose. Start by giving two breaths making sure the chest rises. If the chest does not rise, tilt the head back more and make sure you are plugging their nose. Give Naloxone Assemble the nasal spray Naloxone. Reed half (1 ml) up one nostril, half up the other. Continue rescue breathing, one breath every 5 seconds, while waiting for the Naloxone to take effect. Give a second dose of Naloxone if there is no response in 2-5 minutes. After Naloxone Continue to monitor their respirations and perform rescue breathing if respirations are below 10 breaths a minute. Stay with them until help arrives. The Naloxone may wear off and the victim could start to overdose again. What is Naloxone? Naloxone (also known as Narcan) is a medication that can reverse an overdose that is caused by an opioid drug. When administered during an overdose, Naloxone blocks the effects of opioids on the brain and restores breathing within two to eight minutes. Naloxone has been used safely by emergency medical coding instructor for more than 40 years and has only one function: to reverse the effects of opioids on the brain and respiratory system in order to prevent . Naloxone has no potential for abuse. If Naloxone is given to a person who is not experiencing an opioid overdose, it is harmless. If naloxone is administered to a person who is dependent on opioids, it will produce withdrawal symptoms. Withdrawal, although uncomfortable, is not life- threatening. Naloxone does not reverse overdoses that are caused by non-opioid drugs, such as cocaine, benzodiazepines (e.g. Xanax, Klonopin and Valium), methamphetamines, or alcohol. What are some common opioids? Opioids include both heroin and prescription pain medications. Some common opioid pain medications include: hydrocodone (Lorcet and Vicodin), oxycodone (Percocet), long acting opioids (Oxycontin, MS Contin, Methadone), and patches (Fentanyl). Other brand name opioid pain medications include Opana ER, Avinza and Junie. How do I know if someone is overdosing? A person who is experiencing an overdose may have the following symptoms: breathing is slow and shallow (less than 10 breaths per minute) or has stopped; vomiting; face is pale and clammy; blue or grayish lips and fingernails; slow, erratic, or no pulse; choking or loud snoring noises; will not respond to shaking or sternum rub; skin may turn fulton, blue, or ashen. An overdose is a medical emergency! Call 9-1-1 immediately and begin first aid. What are the risk factors for an opioid overdose? Mixing Drugs Many overdoses occur when people mix heroin or prescription opioids with (more content not included)... [facility] ED Provider Noteon ED Provider Note Emergency Department Encounter Location: [facility] ED Patient: Mayito Forbes : 1985 Date of evaluation: 08/13/2024 ED Provider: Cynthia Puckett DO Time received sign-out: 1500 Mayito Forbes was checked out to me by Dr. Edgar Powers. Please see his/her initial documentation for details of the patient's initial ED presentation, physical exam and completed studies. In brief, Mayito Forbes is a 39 y.o. adult that presented to the emergency department Seeking detox from fentanyl. I have reviewed and interpreted all of the currently available lab results and diagnostics from this visit: Results for orders placed or performed during the hospital encounter of 08/13/24 ECG 12 lead Collection Time: 08/13/24 9:49 AM Result Value Ref Range Heart Rate 78 bpm QRSD Interval 82 ms QT Interval 375 ms QTC Interval 427 ms P [place] 75 degrees QRS [place] 40 degrees T Wave [place] 66 degrees [place] Interval 164 ms SARS-CoV-2 Antigen Collection Time: 08/13/24 10:15 AM Specimen: Nasal; Swab Result Value Ref Range SARS-CoV-2 Antigen Negative Negative CBC auto differential Collection Time: 08/13/24 10:26 AM Result Value Ref Range Auto WBC 11.6 (H) 3.6 - 10.7 10*3/uL RBC 5.44 4.40 - 5.90 10*6/uL Hemoglobin 16.9 13.0 - 18.0 g/dL Hematocrit 45.9 40.0 - 52.0 % MCV 84.4 77.0 - 99.0 fL MCH 31.1 26.0 - 34.0 pg MCHC 36.8 (H) 30.5 - 36.0 % RDW 11.7 11.5 - 15.0 % Platelets 392 140 - 440 10*3/uL MPV 8.9 (L) 9.0 - 12.7 fL nRBC 0.0 0.0 - 2.0 /100 WBCs Neutrophils Relative 83.8 (H) 38.0 - 82.0 % Lymphocytes Relative 9.1 (L) 15.0 - 45.0 % Monocytes Relative 6.2 5.0 - 13.0 % Eosinophils Relative 0.2 0.0 - 6.0 % Basophils Relative 0.3 0.0 - 2.0 % Immature Grans % 0.4 0.0 - 2.0 % Neutrophils Absolute 9.7 (H) 1.8 - 7.5 10*3/uL Lymphocytes Absolute 1.1 1.0 - 4.3 10*3/uL Monocytes Absolute 0.7 0.0 - 0.9 10*3/uL Eosinophils Absolute 0.0 0.0 - 0.5 10*3/uL Basophils Absolute 0.0 0.0 - 0.2 10*3/uL Immature Grans Absolute 0.1 (H) <0.1 10*3/uL Ethanol Collection Time: 08/13/24 10:26 AM Result Value Ref Range ETHANOL IN SER/PLAS <10 <10 mg/dL Comprehensive metabolic panel Collection Time: 08/13/24 10:26 AM Result Value Ref Range SODIUM 138 136 - 145 mmol/L POTASSIUM 3.7 3.5 - 5.1 mmol/L CHLORIDE 106 98 - 107 mmol/L CARBON DIOXIDE 16 (L) 22 - 29 mmol/L ANION GAP 16 (H) 3 - 13 mmol/L UREA NITROGEN 13 8 - 21 mg/dL CREATININE 0.80 0.72 - 1.25 mg/dL GLUCOSE 109 (H) 74 - 100 mg/dL CALCIUM 9.3 8.4 - 10.2 mg/dL AST (SGOT) 33 <34 U/L ALT 38 <40 U/L ALKALINE PHOSPHATASE 109 40 - 150 U/L ALBUMIN 4.3 3.5 - 5.0 g/dL BILIRUBIN, TOTAL 0.8 <1.2 mg/dL TOTAL PROTEIN 7.8 6.4 - 8.3 g/dL eGFR >90.0 >60.0 mL/min/1.73m*2 Complete Urinalysis Collection Time: 08/13/24 12:36 PM Result Value Ref Range Color, Urine Yellow Lt. Yellow Clarity, Urine Clear Clear pH, Urine 7.5 5.0 - 8.0 pH Leukocytes, Urine Negative Negative Raina/uL Nitrite, Urine Negative Negative Protein, Urine 50 (A) Negative mg/dL Glucose, Urine Normal Normal (<70) mg/dL Bilirubin, Urine Negative Negative mg/dL Ketones, Urine >150 (A) Negative mg/dL Urobilinogen, Urine Normal Normal (0-1) mg/dL Blood, Urine Negative Negative mg/dL RBC, Urine 0-2 0 - 2 /HPF WBC, Urine 0-2 0 - 5 /HPF Squamous Epithelial, Urine 0-2 3 - 5 /HPF Bacteria, Urine Negative Negative /HPF Mucus, Urine Few Negative /LPF SPECIFIC GRAVITY OF URINE (NUMERIC) 1.030 1.005 - 1.030 Drug screen panel, emergency Collection Time: 08/13/24 12:36 PM Result Value Ref Range AMPHETAMINE SCREEN Negative BARBITURATES SCREEN Negative BENZODIAZEPINE SCREEN Negative COCAINE METAB. SCREEN Negative METHADONE SCREEN Negative OPIATES SCREEN Negative OXYCODONE SCREEN Negative PHENCYCLIDINE SCREEN Negative FENTANYL SCREEN, UR QUAL Positive POCT glucose meter Collection Time: 08/13/24 3:52 PM Result Value Ref Range Glucose 91 70 - 100 mg/dL XR chest 1 view Final Result 1. No evidence of an acute cardiopulmonary process. Report Dictated on Electronically Signed By: Jt Zaragoza MD Electronically Signed Date/Time: 08/13/2024 2:49 PM EDT Final ED Course and MDM: Mayito Forbes is a 39 y.o. whose care was signed out to me by the outgoing provider. In brief, patient presents seeking detox from fentanyl. Presents in acute withdrawal. Was initially admitted to detox over at [facility] however patient's insurance is not in network here. Patient's insurance is in network only at [facility]. His labs are notable for mild leukocytosis 11.6, elevated ketones in his urine, UDS positive for fentanyl, no other drugs on board. Alcohol was negative. Patient received multiple medications for his opioid withdrawal. His chest x-ray was normal as well. I spoke with Dr. Montoya from [facility] who accepted the patient for transfer Medications venlafaxi (more content not included)... Normal [facility] ED Provider Note I re-inherited this patient on my shift today. After signout, it was determined that his insurance would not support and admission to [facility]. Therefore he was accepted at [facility]. However no beds have been available and he is now awaiting a bed. On my reassessment at around 1 PM today, patient looks dramatically better. He is reporting resolution of his withdrawal symptoms. He does not wish to wait any longer with no bed insight at [facility]. He wishes to be discharged. He is feeling much improved. Declines prescription for clonidine. Will prescribe Zofran. Edgar Powers MD 08/14/24 1320 [facility] ED Provider Note Emergency Department Encounter Pt Name: Mayito Forbes Birthdate 1985 Date of evaluation: 08/13/2024 Provider: Edgar Powers MD CHIEF COMPLAINT Chief Complaint Patient presents with Addiction Problem Pt presents to ED for fentanyl detox. Pt reports last use was 3 days ago. Pt states I was using a couple shots. Pt reports he had relapsed for 1.5 weeks. Pt reports extreme cramping. HISTORY OF PRESENT ILLNESS HPI Mayito Forbes is a 39 y.o. male with history that includes fentanyl addiction, last used 3 days ago, uses intravenously, presenting to the Emergency Department for withdrawal symptoms. Has had cramping all over his body, vomiting and diarrhea. The cramping is severe enough where he indicates an inability to open his mouth to talk or make a fist. There is a friend at bedside who provides much of the history. Patient denies use of other drugs or alcohol. He is currently in a detox program and receives Vivitrol. He last received Vivitrol on 07/16/2024 he says. He was due for another dose today but did not receive it. Nursing Notes were reviewed. History reviewed. No pertinent past medical history. REVIEW OF SYSTEMS Several elements of the ROS reviewed and otherwise acutely negative except as in the HPI. PHYSICAL EXAM ED Triage Vitals [08/13/24 0937] Temp Heart Rate Resp BP (!) 35.9 ?C (96.6 ?F) (!) 127 (!) 32 (!) 158/106 SpO2 Temp Source Heart Rate Source Patient Position 99 % Temporal Monitor Sitting BP Location FiO2 (%) Right arm -- Physical Exam Vitals and nursing note reviewed. Constitutional: General: He is not in acute distress. Appearance: He is well-developed. He is ill-appearing. HENT: Head: Normocephalic and atraumatic. Mouth/Throat: Mouth: Mucous membranes are dry. Eyes: Conjunctiva/sclera: Conjunctivae normal. Pupils: Pupils are equal, round, and reactive to light. Cardiovascular: Rate and Rhythm: Regular rhythm. Tachycardia present. Heart sounds: No murmur heard. Pulmonary: Effort: Pulmonary effort is normal. No respiratory distress. Breath sounds: Normal breath sounds. Abdominal: Palpations: Abdomen is soft. Tenderness: There is no abdominal tenderness. Musculoskeletal: General: No swelling. Cervical back: Neck supple. Skin: General: Skin is warm and dry. Neurological: Mental Status: He is alert. Comments: Able to range his elbows but unable to make fists. He is moving all extremities spontaneously. Psychiatric: Mood and Affect: Mood is anxious. EMERGENCY DEPARTMENT COURSE and DIFFERENTIAL DIAGNOSIS/MDM: Differential diagnoses include: Fentanyl withdrawal. Will obtain a COWS score and treat symptomatically. Will check electrolytes, ECG, blood counts, drug screen, renal and liver function tests, urinalysis in anticipation of the possibility of detox admission (patient is unable to tell me now if he wishes to pursue inpatient detox at [facility]). I considered serotonin syndrome but this would not make sense clinically especially in the absence of other medication use apart from Vivitrol. ED course: ED Course as of 08/13/24 1429 Mon Aug 13, 2024 0955 I interpreted the ECG as showing sinus rhythm 87 bpm with normal QTc of 427 ms, no findings convincing for acute ischemia [AK] 1149 Patient vomiting, ordered Zofran IV [AK] 1259 Had been due for vivitrol today, last received a month ago he thinks on 07/16/2024. I discussed the case with Dr. Conway who accepts patient for admission to detox. [AK] ED Course User Index [AK] Edgar Powers MD Diagnoses as of 08/13/24 142 Opiate withdrawal (HCC) ED medications managed: Medications cloNIDine (Catapres) tablet 0.1 mg (has no administration in time range) cloNIDine (Catapres) tablet 0.3 mg (0.3 mg Oral Given 08/13/24 1007) Followed by cloNIDine (Catapres) tablet 0.2 mg (has no administration in time range) Followed by cloNIDine (Catapres) tablet 0.1 mg (has no administration in time range) Followed by cloNIDine (Catapres) tablet 0.05 mg (has no administration in time range) cloNIDine (Catapres) tablet 0.1 mg (0.1 mg Oral Given 08/13/24 1008) sodium chloride 0.9 % bolus 1,000 mL (0 mL IntraVENous Stopped 08/13/24 1127) ondansetron (Zofran) injection 4 mg (4 mg IntraVENous Given 08/13/24 1243) Reassessment: Significant clinical improvement with above medications. Tolerating p.o. Did complain of some chest and and therefore added on a chest x-ray. Chronic conditions and social determinants of health affecting care: Drug addiction DISPOSITION/PLAN Admit 08/13/2024 02:14:16 PM Edgar Powers MD Emergency Medicine Edgar Powers MD 08/14/24 0706 Normal [facility] ETHANOLon 08-13-2024 ETHANOL IN SER/PLAS <10 Normal <10 [facility] Comment on above: Result Comment: ORDE R COMMENTS: LOAD BLOCKER depression is seen >100 mg/dL. NOTE: This result is for medical treatment only. Analysis performed using non-forensic procedures. Performed By: #### L [id number] #### Qu[employer] Buncher [employer] Sorter: LILIA KNOX ([id number]) [facility] ([facility]) [address] [id number] [facility] Ethanol (Bld) [Mass/Vol]on 0 08-13-2024 Ethanol [Mass/Vol] mg/dL NINF - 10 mg/dL [facility] Interpretation and review of laboratory results Normal [facility] LOAD BLOCKER depression is se en >100 mg/dL. NOTE: This result is for medical treatment only. Analysis performed using non-forensic procedures. [facility] - Chemistry and C hemistry - challengeon 08-13-2024 Glucose [Mass/Vol] 91 mg/dL 70 - 100 mg/dL [facility] - Drug toxicology on 08-13-2024 Amphetamines Screen method >1000 ng/mL Ql (U) Negative [facility] Barbiturates Screen method >200 ng/mL Ql (U) Negative [facility] Benzod[facility]ines Ql (U) Negative Yo [facility] Methadone Screen Ql (U) Negative S [facility] Opiates Screen Ql (U) Negative [facility] oxyCODONE Ql (U) Negative [facility] He alth Phencyclidine Ql (U) Negative [facility] Laboratory - Microbiology an d Antimicrobial susceptibilityOrdered By: Mary De Dios on 08-13-2024 SARS-CoV-2 (COVID-19) Ag IA.rapid Ql (Resp) Negative Negative [facility] Comment on above: A negative result do es not rule out the possibility of SARS-CoV-2 infection. NAAT-based methods should be considered for symptomatic patients presenting greater than seven days after onset of symptoms. Method: Lateral flow immunoassay. Fact sheets for healthcare providers and patients can be found at the following sites: https://www.fda.gov/media/765786/download https://www.fda.gov/media/809325/download No Panel Informationon 08-13 Interpretation and review of laboratory results Normal [facility] Performed by: [facility], [address] [place] [address] CLIA ID: [id number] [facility] COCAINE METAB. SCREEN Negative [facility] FENTANYL SCREEN, UR QUAL Positive [facility] The expected value f or all of the drugs listed above is Negative. The following drugs or drug groups have been screened for by Immunoassay at the following thresholds: Amphetamine class (1000 ng/mL) Barbiturates (200 ng/mL) Benzodiazepines (200 ng/mL) Cocaine (300 ng/mL) Methadone (300 ng/mL) Opiates (300 ng/mL) Oxycodone (100 ng/mL) PCP (25 ng/mL) Fentanyl (1.0 ng/ml) NOTE: These results are for medical treatment only. Analysis performed using non-forensic procedures. POSITIVE results are NOT confirmed by a more specific alternative method unless requested. If confirmation is needed, request confirmation under separate order. [facility] [address] 75 degrees [facility] NH Interval 164 ms [facility] QRS [place] 40 degrees [facility] QRSD Interval 82 ms [facility] QT Interval 375 ms [facility] QTC Interval 427 ms [facility] T Wave [address] 66 degrees [facility] Sinus rhythm Low voltage, extremity leads Compared to ECG 04/11/2024 01:17:19 Similar Electronically Signed On 08-13-2024 09:56:42 EDT by Edgar De Souza MD - 08/13/2024 IMPRESSION: Sinus rhythm Low voltage, extremity leads Compared to ECG 04/11/2024 01:17:19 Similar Electronically Signed On 08-13-2024 09:56:42 EDT by Edgar [place] [facility] SARS-COV-2 ANTIGENon 025 SARS-COV-2 ANTIGEN SARS-COV-2 ANTIGEN -BINAX Reference Negative Negative A negative result does not rule out the possibility of SARS-CoV-2 infection. NAAT-based methods should be considered for symptomatic patients presenting greater than seven days after onset of symptoms. Method: Lateral flow immunoassay. Fact sheets for healthcare providers and patients can be found at the following sites: https://www.fda.gov/med ia/923338/download https://www.fda.gov/med ia/316722/download Normal [facility] Comment on above: Performed By: #### L [id number] #### [employer]uncher [employer] Sorter: PARTH TADEO ([id number]) [facility] ([facility]) [address] [place] [address] SARS-CoV-2 (COVID-19) Ag IA. rapid Ql (Resp)Ordered By: Mary De Dios on 08-13-2024 Interpretation and review of laboratory results Normal [facility] Urinalysis complete panel (U )on 08-13-2024 Bacteria LM.HPF (Urine sed) [#/Area] Negative Negative /HPF [facility] Bilirubin Ql (U) Negative Negative mg/dL [facility] Clarity (U) Clear Clear [facility] Color (U) Yellow Lt. Yellow [facility] Epithelial cells.squamous LM.HPF (Urine sed) [#/Area] 0-2 [facility] h Glucose Ql (U) Normal Normal (<70) mg/dL [facility] Hemoglobin Ql (U) Negative Negative mg/dL [facility] Interpretation and review of laboratory results Abnormal [facility] Ketones (U) [Mass/Vol] mg/dL Abnormal Negat tracie mg/dL [facility] Leukocyte esterase Test strip Ql (U) Negative Negative Raina/uL [facility] Mucus LM.HPF (Urine sed) [#/Area] Few Negative /LPF [facility] Nitrite Ql (U) Negative Negative [facility] th pH (U) 7.5 [pH] 5.0 - 8.0 pH [facility] Protein (U) [Mass/Vol] 50 mg/dL Abnormal Negative [facility] RBC LM.HPF (Urine sed) [#/Area] 0-2 [facility] Specific gravity (U) [Rel density] 1.03 1.005 - 1.030 [facility] Urobilinogen (U) [Mass/Vol] Normal Normal (0-1) mg/dL [facility] WBC LM.HPF (Urine sed) [#/Area] 0-2 [facility] Vital signson 08-13-2024 Heart rate 78 /min bpm [facility] XR Chest Single viewon 08-13 1. No evidence of an acute cardiopulmonary process. Report Dictated on Electronically Signed By: Jt Zaragoza MD Electronically Signed Date/Time: 08/13/2024 2:49 PM T [facility] Patient Name: MAYITO FORBES : 1985 Exam Date/Time: 08/13/2024 14:32 Procedure: XR CHEST 1 VIEW Ordering Provider: CONWAY ALAN Reason For Exam: pneumonia? CLINICAL INFORMATION: Shortness of breath. Portable view of the chest at 1440 hours is provided and compared with a previous study dated 06/07/2023. FINDINGS: The cardiac silhouette and mediastinum are within normal limits. The lungs are free of infiltrate or pleural effusion. The visualized bones and soft tissues are grossly unremarkable. [facility] Jt Zaragoza MD - 08/13/2024 [facility] 1985 [id number] Exam Date/Time: 08/13/2024 14:32 Procedure: XR CHEST 1 VIEW Ordering Provider: CONWAY ALAN Reason For Exam: pneumonia? CLINICAL INFORMATION: Shortness of breath. Portable view of the chest at 1440 hours is provided and compared with a previous study dated 06/07/2023. FINDINGS: The cardiac silhouette and mediastinum are within normal limits. The lungs are free of infiltrate or pleural effusion. The visualized bones and soft tissues are grossly unremarkable. IMPRESSION: 1. No evidence of an acute cardiopulmonary process. Report Dictated on Electronically Signed By: Jt Zaragoza MD Electronically Signed Date/Time: 08/13/2024 2:49 PM EDT [facility] Radiology Study observation (narrative) [facility] alth XR Chest Single viewOrdered By: Jt Zaragoza on 08-13-2024 [facility] Work Phone: Progress Noteon 04-12-2024 Progress Note Chart reviewed of ED follow up Seen in [facility] ED on 04/11/24 Reason: drug overdose Discharge instructions: PATIENT REFERRED TO: John Andrews MD [facility] [phone] Called number of record, no voicemail set up. Spoke to patient and he stated that his state issued insurance has lapsed and he is waiting for his new insurance with his employer to start. I encouraged him to call and make appointment for follow up as soon as possible. I also told him if he needed resource numbers to call Dr. Andrews's office for assistance. Patient declined ED follow up with PCP at this time. Encouraged patient to call PCP office if symptoms occur and/or changes mind for ED follow up appointment with PCP. That's all I have for today. Thank you for choosing [facility], always remember we have same day or telehealth visits available. We encourage you to call the office if sudden health changes occur before going to ED. We have nurses available 20/12 available to help. If patient calls back, please assist with scheduling a ED follow up appointment..Electronic ally signed by Alyson Alexander LPN on 04/13/2024 at 8:02 AM Normal [facility] BASIC METABOLIC PANELon 03-30 Anion gap [Moles/Vol] 6 mmol/L Normal 3-13 [facility] Comment on above: Performed By: #### L [id number] #### [employer] Sorter: PARTH TADEO ([id number]) [facility] ([facility]) [address] Calcium [Mass/Vol] 8.9 mg/dL Normal 8.4-10.4 [facility] Comment on above: Performed By: #### L [id number] #### Qu[employer] Sorter: PARTH TADEO ([id number]) [facility] ([facility]) [address] [place] [address] [place] Chloride [Moles/Vol] 102 mmol/L Normal 98-107 [facility] Comment on above: Performed By: #### L [id number] #### Quill Buncher [employer] Sorter: PARTH TADEO ([id number]) [facility] ([facility]) [address] [place] [address] [place] CO2 [Moles/Vol] 27 mmol/L Normal 22-30 [facility] Comment on above: Performed By: #### L [id number] #### Quill Buncher And Sorter: PARTH TADEO ([id number]) [facility] ([facility]) [address] [place] [address] [place] Creatinine [Mass/Vol] 0.70 mg/dL Normal 0.66-1.25 [facility] Comment on above: Performed By: #### L [id number] #### Quill Buncher And Sorter: PARTH TADEO ([id number]) [facility] [address] GLOMERULAR FILTRATION RATE ML/MIN/1.73 SQ M.PREDICTED >90.0 Normal >60.0 [facility] Comment on above: Result Comment: Calc ulation based on the Chronic Kidney Disease Epidemiology Collaboration (CKD-EPI) equation refit without adjustment for race Performed By: #### L [id number] #### Quill Buncher And Sorter: PARTH TADEO ([id number]) [facility] ([facility]) [address] Glucose [Mass/Vol] 103 mg/dL High 70-100 [facility] Comment on above: Performed By: #### L [id number] #### Quill Buncher And Sorter: PARTH TADEO ([id number]) [facility] [address] Potassium [Moles/Vol] 4.1 mmol/L Normal 3.5-5.1 [facility] Comment on above: Performed By: #### L [id number] #### Quill Buncher And Sorter: PARTH TADEO ([id number]) [facility] [address] [place] [address] [place] Sodium [Moles/Vol] 134 mmol/L Low 135-145 [facility] Comment on above: Performed By: #### L [id number] #### Quill Buncher And Sorter: PARTH TADEO ([id number]) [facility] [address] [place] [address] [place] Urea nitrogen [Mass/Vol] 8 mg/dL Low 9-20 [facility] Comment on above: Performed By: #### L [id number] #### Quill Buncher And Sorter: PARTH TADEO ([id number]) [facility] [address] [place] [address] [facility] Basic metabolic 1998 panelon 04-11-2024 Anion gap [Moles/Vol] 6 mmol/L 3 - 13 mmol/L [facility] Calcium [Mass/Vol] 8.9 mg/dL 8.4 - 10. 4 mg/dL [facility] Chloride [Moles/Vol] 102 mmol/L 98 - 10 7 mmol/L [facility] CO2 [Moles/Vol] 27 mmol/L 22 - 30 mmol/L [facility] Creatinine [Mass/Vol] 0.7 mg/dL 0.66 - 1.25 mg/dL [facility] GFR/1.73 sq M.predicted (S/P/Bld) [Vol rate/Area] - PINF [facility] Comment on above: Calculation based on the Chronic Kidney Disease Epidemiology Collaboration (CKD-EPI) equation refit without adjustment for race Glucose [Mass/Vol] 103 mg/dL High 70 - 100 mg/dL [facility] Interpretation and review of laboratory results Abnormal [facility] Potassium [Moles/Vol] 4.1 mmol/L 3.5 - 5.1 mmol/L [facility] Sodium [Moles/Vol] 134 mmol/L Low 135 - 145 mmol/L [facility] Urea nitrogen [Mass/Vol] 8 mg/dL Low 9 - 20 mg/dL [facility] CBC W Auto Differential pane l (Bld)Ordered By: Mark Estrella on 04-11-2024 Basophils (Bld) [#/Vol] 0 10*3/uL 0.0 - 0.2 10*3/uL [facility] Basophils/100 WBC (Bld) 0.2 % 0.0 - 2.0 % [facility] Eosinophils (Bld) [#/Vol] 0.1 10*3/uL 0.0 - 0.5 10*3/uL [facility] Eosinophils/100 WBC (Bld) 0.8 % 0.0 - 6.0 % [facility] Erythrocyte distribution width (RBC) [Ratio] 12.2 % 11.5 - 15.0 % [facility] Hematocrit (Bld) [Volume fraction] 45.1 % 40.0 - 52.0 % [facility] Hemoglobin (Bld) [Mass/Vol] 16 g/dL 13.0 - 18.0 g/dL [facility] Immature granulocytes (Bld) [#/Vol] 0.1 10*3/uL High NINF - 0.1 10*3/uL [facility] Immature granulocytes/100 WBC (Bld) 0.4 % 0.0 - 2.0 % [facility] Interpretation and review of laboratory results Abnormal [facility] Lymphocytes (Bld) [#/Vol] 0.8 10*3/uL Low 1.0 - 4.3 10*3/uL [facility] Lymphocytes/100 WBC (Bld) 6.5 % Low 15.0 - 45.0 % [facility] MCH (RBC) [Entitic mass] 31 pg 26. 0 - 34.0 pg [facility] MCHC (RBC) [Mass/Vol] 35.5 % 30.5 - 36.0 % [facility] MCV (RBC) [Entitic vol] 87.4 fL 77.0 - 99.0 fL [facility] Monocytes (Bld) [#/Vol] 0.9 10*3/uL 0.0 - 0.9 10*3/uL [facility] Monocytes/100 WBC (Bld) 6.9 % 5.0 - 13.0 % [facility] Neutrophils (Bld) [#/Vol] 10.4 10*3/uL High 1.8 - 7.5 10*3/uL [facility] Neutrophils/100 WBC (Bld) 85.2 % High 38.0 - 82.0 % [facility] Nucleated RBC/100 WBC (Bld) [Ratio] 0 % [facility] Platelet mean volume (Bld) [Entitic vol] 8.7 fL Low 9.0 - 12.7 fL [facility] Platelets (Bld) [#/Vol] 323 10*3/uL 140 - 440 10*3/uL [facility] RBC (Bld) [#/Vol] 5.16 10*6/uL 4.40 - 5.9 0 10*6/uL [facility] WBC (Bld) [#/Vol] 12.3 10*3/uL High 3.6 - 10.7 10*3/uL [facility] CBC WITH AUTO DIFFERENTIALon 04-11-2024 Basophils (Bld) [#/Vol] 0.0 10*3/uL Normal 0.0-0.2 [facility] Comment on above: Performed By: #### L [id number] #### Qu[employer]uncher [employer] Sorter: LILIA KNOX ([id number]) [facility] ([facility]) [address] [place] [address] Basophils/100 WBC (Bld) 0.2 % Normal 0.0-2.0 [facility] Comment on above: Performed By: #### L [id number] #### Qu[employer]uncher [employer] Sorter: LILIA KNOX ([id number]) [facility] ([facility]) [address] [place] [address] Eosinophils (Bld) [#/Vol] 0.1 10*3/uL Normal 0.0-0.5 [facility] Comment on above: Performed By: #### L [id number] #### [employer] Sorter: LILIA KNOX ([id number]) [facility]) [address] [place] [address] Eosinophils/100 WBC (Bld) 0.8 % Normal 0.0-6.0 [facility] Comment on above: Performed By: #### L [id number] #### [employer] Sorter: LILIA KNOX ([id number]) [facility] ([facility]) [address] [place] [address] Erythrocyte distribution width (RBC) [Ratio] 12.2 % Normal 11.5-15.0 [facility] Comment on above: Performed By: #### L [id number] #### [employer] Sorter: LILIA KNOX ([id number]) [facility]) [address] [place] [address] Hematocrit (Bld) [Volume fraction] 45.1 % Normal 40.0-52.0 [facility] Comment on above: Performed By: #### L [id number] #### [employer] S[employer]: LILIA KNOX ([id number]) [facility]) [address] [place] [address] Hemoglobin (Bld) [Mass/Vol] 16.0 g/dL Normal 13.0-18.0 [facility] Comment on above: Performed By: #### L [id number] #### [employer] Sorter: LILIA KNOX ([id number]) [facility] [address] [place] [address] IMMATURE GRANS % 0.4 % Normal 0.0-2.0 [facility] Comment on above: Performed By: #### L [id number] #### Qu[employer]uncher [employer] Sorter: LILIA KNOX ([id number]) [facility]) [address] [place] [address] IMMATURE GRANS ABSOLUTE 0.1 10*3/uL High <0.1 [facility] Comment on above: Performed By: #### L [id number] #### Qu[employer]uncher [employer] Sorter: LILIA KNOX ([id number]) [facility]) [address] [place] [address] Lymphocytes (Bld) [#/Vol] 0.8 10*3/uL Low 1.0-4.3 [facility] Comment on above: Performed By: #### L [id number] #### Quill Buncher And Sorter: LILIA KNOX ([id number]) [facility]) [address] [place] [address] Lymphocytes/100 WBC (Bld) 6.5 % Low 15.0-45.0 [facility] Comment on above: Performed By: #### L [id number] #### Qu[employer]uncher And Sorter: LILIA KNOX ([id number]) [facility]) [address] [place] [address] MCH (RBC) [Entitic mass] 31.0 pg Normal 26.0-34.0 [facility] Comment on above: Performed By: #### L [id number] #### Qu[employer]uncher [employer] Sorter: LILIA KNOX ([id number]) [facility]) [address] [place] [address] MCHC 35.5 % Normal 30.5-36.0 [facility] Comment on above: Performed By: #### L [id number] #### Qu[employer] Buncher And Sorter: LILIA KNOX ([id number]) [facility]) [address] [place] [address] MCV (RBC) [Entitic vol] 87.4 fL Normal 77.0-99.0 [facility] Comment on above: Performed By: #### L [id number] #### Qu[employer] Buncher And Sorter: LILIA KNOX ([id number]) [facility] ([facility]) [address] [place] [address] Monocytes (Bld) [#/Vol] 0.9 10*3/uL Normal 0.0-0.9 [facility] Comment on above: Performed By: #### L [id number] #### [employer] Sorter: LILIA KNOX ([id number]) [facility] ([facility]) [address] [place] [address] Monocytes/100 WBC (Bld) 6.9 % Normal 5.0-13.0 [facility] Comment on above: Performed By: #### L [id number] #### [employer] Sorter: LILIA KNOX ([id number]) [facility] ([facility]) [address] [place] [address] NEUTROPHILS ABSOLUTE 10.4 10*3/uL High 1.8-7.5 [facility] Comment on above: Performed By: #### L [id number] #### [employer] Sorter: LILIA KNOX ([id number]) [facility] ([facility]) [address] [place] [address] Neutrophils/100 WBC (Bld) 85.2 % High 38.0-82.0 [facility] Comment on above: Performed By: #### L [id number] #### [employer] Sorter: LILIA KNOX ([id number]) [facility] ([facility]) [address] [place] [address] NRBC 0.0 /100 WBCs Normal 0.0-2.0 [facility] Comment on above: Performed By: #### L [id number] #### [employer] Sorter: LILIA KNOX ([id number]) [facility] ([facility]) [address] [place] [address] Platelet mean volume (Bld) [Entitic vol] 8.7 fL Low 9.0-12.7 [facility] Comment on above: Performed By: #### L [id number] #### [employer] Sorter: LILIA KNOX ([id number]) [facility] ([facility]) [address] [place] [address] Platelets (Bld) [#/Vol] 323 10*3/uL Normal 140-440 [facility] Comment on above: Performed By: #### L [id number] #### [employer] Sorter: LILIA KNOX ([id number]) [facility] [address] [place] [address] RBC (Bld) [#/Vol] 5.16 10*6/uL Normal 4.40-5.90 [facility] Comment on above: Performed By: #### L [id number] #### [employer] Sorter: LILIA KNOX ([id number]) [facility] ([facility]) [address] [place] [address] WBC (Bld) [#/Vol] 12.3 10*3/uL High 3.6-10.7 [facility] Comment on above: Performed By: #### L [id number] #### [employer] S[employer]: LILIA KNOX ([id number]) [facility] ([facility]) [address] [place] [address] ED Provider Noteon ED Provider Note EMERGENCY DEPARTMENT ENCOUNTER Pt Name: Mayito Forbes Birthdate 1985 Date of evaluation: 04/11/2024 ED Provider: James Neil MD CHIEF COMPLAINT Chief Complaint Patient presents with Drug Overdose Patient arrived to ED via EMS after being called out for a drug overdose. Endorses to smoking weed. +n/v HISTORY OF PRESENT ILLNESS (Location/Symptom, Timing/Onset, Context/Setting, Quality, Duration, Modifying Factors, Severity) Note limiting factors. I wore appropriate PPE for the entirety of this encounter. HPI Mayito Forbes is a 38 y.o. who presents to the emergency department chief complaint of generalized abdominal pain with nausea and vomiting. Endorses normal bowel movements. Denies any dysuria, urgency, frequency. Denies any chest pain or shortness of breath. Endorses marijuana use. Patient brought in by EMS. Nursing Notes were reviewed. Outside historians: EMS REVIEW OF SYSTEMS Review of Systems Constitutional: Negative for fever. HENT: Negative for sore throat. Respiratory: Negative for cough and shortness of breath. Cardiovascular: Negative for chest pain. Gastrointestinal: Positive for abdominal pain, nausea and vomiting. Negative for diarrhea. Genitourinary: Negative for dysuria and urgency. Musculoskeletal: Negative for neck pain. Skin: Negative for rash. Neurological: Negative for headaches. Pertinent positives and negatives as per HPI PAST MEDICAL HISTORY No past medical history on file. SURGICAL HISTORY No past surgical history on file. CURRENT MEDICATIONS Current Discharge Medication List CONTINUE these medications which have NOT CHANGED Details venlafaxine XR (Effexor XR) 225 MG 24 hr tablet Take 225 mg by mouth daily (with breakfast). Do not crush, chew, or split. ALLERGIES Patient has no known allergies. FAMILY HISTORY No family history on file. SOCIAL HISTORY Social History Socioeconomic History Marital status: Single Tobacco Use Smoking status: Every Day Current packs/day: 1.00 Types: Cigarettes Vaping Use Vaping status: Never Used Substance and Sexual Activity Alcohol use: Not Currently Drug use: Yes Types: Methamphetamines Social Drivers of Health Financial Resource Strain: Low Risk (10/25/2023) Overall Financial Resource Strain (CARDIA) Difficulty of Paying Living Expenses: Not hard at all Food Insecurity: No Food Insecurity (10/25/2023) Hunger Vital Sign Worried About Running Out of Food in the Last Year: Never true Ran Out of Food in the Last Year: Never true Transportation Needs: No Transportation Needs (10/25/2023) PRAPARE - Transportation Lack of Transportation (Medical): No Lack of Transportation (Non-Medical): No Physical Activity: Inactive (10/25/2023) Exercise Vital Sign Days of Exercise per Week: 0 days Minutes of Exercise per Session: 0 min Stress: No Stress Concern Present (10/25/2023) [place] [employer] - Occupational Stress Questionnaire Feeling of Stress : Not at all Social Connections: Moderately Isolated (10/25/2023) Social Connection and Isolation Panel [NHANES] Frequency of Communication with Friends and Family: Three times a week Frequency of Social Gatherings with Friends and Family: Three times a week Attends Druze Services: Never Active Member of Clubs or Organizations: No Attends Club or Organization Meetings: Never Marital Status: Living with partner Intimate Partner Violence: Not At Risk (10/25/2023) Humiliation, Afraid, Rape, and Kick questionnaire Fear of Current or Ex-Partner: No Emotionally Abused: No Physically Abused: No Sexually Abused: No Housing Stability: Low Risk (10/25/2023) Housing Stability Vital Sign Unable to Pay for Housing in the Last Year: No Number of Places Lived in the Last Year: 1 Unstable Housing in the Last Year: No PHYSICAL EXAM ED Triage Vitals Temp Pulse Resp BP -- -- -- -- SpO2 Temp src Heart Rate Source Patient Position -- -- -- -- BP Location FiO2 (%) -- -- Physical Exam Vitals and nursing note reviewed. Constitutional: General: He is not in acute distress. Comments: 38-year-old male HENT: Head: Normocephalic and atraumatic. Mouth/Throat: Mouth: Mucous membranes are moist. Pharynx: Oropharynx is clear. Eyes: Extraocular Movements: Extraocular movements intact. Pupils: Pupils are equal, round, and reactive to light. Comments: Injected conjunctiva Cardiovascular: Rate and Rhythm: Normal rate and regular rhythm. Pulmonary: Effort: Pulmonary effort is normal. Abdominal: Palpations: Abdomen is soft. Tenderness: There is no abdominal tenderness. There is no guarding or rebound. Musculoskeletal: Cervical back: Normal range of motion. Skin: General: Skin is warm and dry. Findings: No rash. Neurological: General: No focal deficit present. Mental Status: He is alert. DIAGNOSTIC RESULTS RADIOLOGY (Per Emergency Physicia (more content not included)... Normal [facility] HEPATIC FUNCTION PANELon Albumin [Mass/Vol] 4.4 g/dL Normal 3.5-5.0 [facility] Comment on above: Performed By: #### L [id number] #### Quill Buncher And Sorter: PARTH TADEO ([id number]) [facility] [address] ALP [Catalytic activity/Vol] 89 U/L Normal 38-126 [facility] Comment on above: Performed By: #### L [id number] #### [employer] Sorter: PARTH TADEO ([id number]) [facility] ([facility]) [address] ALT [Catalytic activity/Vol] 25 U/L Normal 0-49 [facility] Comment on above: Performed By: #### L [id number] #### [employer] Sorter: PARTH TADEO ([id number]) [facility] ([facility]) [address] AST [Catalytic activity/Vol] 34 U/L Normal 15-46 [facility] Comment on above: Performed By: #### L [id number] #### [employer] Sorter: PARTH TADEO ([id number]) [facility] [address] Bilirubin [Mass/Vol] 0.8 mg/dL Normal 0.2-1.3 [facility] Comment on above: Performed By: #### L [id number] #### [employer] Sorter: PARTH TADEO ([id number]) [facility] ([facility]) [address] [place] [address] Bilirubin.indirect [Mass/Vol] 0.0 mg/dL Normal 0.0-0.3 [facility] Comment on above: Performed By: #### L [id number] #### [employer] Sorter: PARTH TADEO ([id number]) [facility] ([facility]) [address] Protein [Mass/Vol] 7.3 g/dL Normal 6.3-8.2 [facility] Comment on above: Performed By: #### L [id number] #### [employer] Sorter: PARTH TADEO ([id number]) [facility] ([facility]) [address] Hepatic function 2000 panelo n 04-11-2024 Albumin [Mass/Vol] 4.4 g/dL 3.5 - 5.0 g/dL [facility] ALP [Catalytic activity/Vol] 89 U/L 38 - 126 U/L [facility] ALT [Catalytic activity/Vol] 25 U/L 0 - 49 U/L [facility] AST [Catalytic activity/Vol] 34 U/L 15 - 46 U/L [facility] Bilirubin [Mass/Vol] 0.8 mg/dL 0.2 - 1 .3 mg/dL [facility] Bilirubin.conjugated [Mass/Vol] 0 mg/dL 0.0 - 0.3 mg/dL [facility] Protein [Mass/Vol] 7.3 g/dL 6.3 - 8.2 g/dL [facility] LIPASEon 04-11-2024 Lipase [Catalytic activity/Vol] 46 U/L Normal 23-300 [facility] Comment on above: Performed By: #### L [id number] #### [employer] Sorter: PARTH TADEO ([id number]) [facility] ([facility]) [address] Laboratory - Chemistry and C hemistry - challengeon 04-11-2024 Troponin I.cardiac [Mass/Vol] ng/mL NINF - 0.034 ng/mL [facility] Lipase [Catalytic activity/Vol] 46 U/L 23 - 300 U/L [facility] No Panel Informationon 04-11 Interpretation and review of laboratory results Normal [facility] P [place] 62 degrees [facility] [place] Interval 160 ms [facility] QRS [place] 23 degrees [facility] QRSD Interval 82 [facility] Interval 333 ms [facility] QTC Interval 427 ms [facility] T Wave [place] 36 degrees [facility] James Neil MD - 04/11/2024 IMPRESSION: Sinus rhythm Abnormal R-wave progression, late transition INFERIOR Q WAVES, PROBABLY NORMAL VARIATION Compared to 11/08/2023 Electronically Signed On 04-11-2024 01:51:25 EST by James Neil [facility] TROPONIN Ion 04-11-2024 Troponin I.cardiac [Mass/Vol] ng/mL Normal <0.034 [facility] Comment on above: Result Comment: ORDE R COMMENTS: Patients with high levels of Biotin oral intake (ie >5 mg/day) may have falsely decreased Troponin levels. Performed By: #### L [id number] #### [employer] Sorter: PARTH TADEO ([id number]) [facility] ([facility]) [address] Troponin I.cardiac [Mass/Vol ]on 04-11-2024 Interpretation and review of laboratory results Normal [facility] Patients with high levels of Biotin oral intake (ie >5 mg/day) may have falsely decreased Troponin levels. [facility] Vital signson 04-11-2024 Heart rate 98 /min bpm [facility] 36on 12-05-2023 36 Spoke to patient. He is taking Vivitrol injections as prescribed and cutting back on marijuana. Denies other substance use. He is experiencing depression. He is taking Effexor as directed and attending counseling sessions. Encouraged him to alert his providers concerning depression. He denies SI/HI. Educated on side effects of Vivitrol. He is trying to get a job and awaiting a background check. Will return to ED if symptoms worsen. Normal [facility] 36on 12-02-2023 36 No answer, voicemail is not set up. Normal [facility] Discharge Instructionon 10-28 Discharge Instruction [facility] Medical Records Department [address] [place] [id number] Instructions for Home/Discharge Instructions 11/11/23 1014 MR#: [id number] Acct: [id number] Name: MAYITO FORBES Rep #: [id number] : 1985 38 From: Kyler Nance DO PCP: Phil Physician,No Primary Status:ADM IN Discharge Instructions Diet Discharge Diet: No restrictions Activity Discharge Activity: Return to Normal Activity Weight Bearing Status: Full weight bearing Follow Up Care Test Results: Test results from this visit will be discussed in further detail at your follow-up appointment, if applicable. Discharge Plan Admission Admit Date/Time: 11/08/23 21:20 Primary Reason for Your Visit: opiate detox Attending Provider: Kyler Nance Primary Care Provider: Phil Physician,No Primary Consulting Providers: Fahad Pepe Instructions Additional Instructions / Restrictions: follow up with outpatient detox services as directed Discharge Orders/Prescriptions Prescriptions: Continued venlafaxine 75 mg capsule,extended release 24hr 150 mg PO DAILY venlafaxine 150 mg capsule,extended release 24hr 150 mg PO DAILY Discontinued Vivitrol 380 mg suspension,extended rel recon 380 mg IM QMONTH Referrals / Follow Up: Care Physician,No Primary [Primary Care Provider] - Disposition Disposition (needs filled in before D/C Order can be placed): Home, Self Care 11/11/23 1018 Kyler Nance DO CC: Dr. Fahad Pepe, ; No Primary Care Physician Signed Normal [facility] 12 Lead EKGon 11-10-2023 12 Lead EKG [facility] Cardiovascular Services [address] [place] [address] 12 Lead EKG 11/10/23 0525 MR#: [id number] Acct: [id number] Name: MAYITO FORBES Rep #: [id number] : 1985 38 From: Mary Chahal MD Attending Dr: Dr. Kyler Nance DO Status: A DM IN Ordering Dr: Slava Adame MD Date: 11/10/23 Location: MS3 Sex: M AA Admitted: 11/08/23 Test Reason : AM EKG Blood Pressure : / mmHG Vent. Rate : 066 BPM Atrial Rate : 066 BPM P-R Int : 164 ms QRS Dur : 072 ms QT Int : 396 ms P-R-T Axes : 052 055 030 degrees QTc Int : 415 ms Normal sinus rhythm Normal ECG When compared with ECG of 22-APR-2022 09:34, QT has shortened Confirmed by Mary Chahal ([id number]), editor in chief JAMIL TIJERINA ([id number]) on 11/10/2023 9:50:10 AM Referred By: Fahad Pepe Confirmed By:Mary Chahal 11/10/23 0950 Date Mary Chahal MD CC: Dr. Fahad Pepe, ; Dr. Slava Adame MD; Dr. Kyler Nance DO; No Primary Care Physician Signed Normal [facility] 36on 11-10-2023 36 No answer, voicemail not set up. Normal [facility] CBC W/Diff, Automatedon 10-28 Absolute Lymph 1.79 X10 3/uL Normal 0.83-4.51 [facility] Comment on above: Performed By: #### L 100.0100 ####[facility] [address] [place], [address] Absolute Neut 3.8 X10 3/uL Normal 2.0-7.7 [facility] Comment on above: Performed By: #### L 100.0100 ####[facility] [address] [place], [address] Basophils/100 WBC (Bld) 0.9 % Normal 0-1 [facility] Comment on above: Performed By: #### L 100.0100 ####[facility] [address] [place], [address] Eosinophils/100 WBC (Bld) 2.4 % Normal 0-5 [facility] Comment on above: Performed By: #### L 100.0100 ####[facility] [address] [place], [address] Erythrocyte distribution width (RBC) [Ratio] 12.5 % Normal 11.6-14.6 [facility] Comment on above: Performed By: #### L 100.0100 ####[facility] [address] [place], [address] Hematocrit (Bld) [Volume fraction] 40.4 % Normal 40-54 [facility] Comment on above: Performed By: #### L 100.0100 ####[facility] [address] [place], [address] Hemoglobin (Bld) [Mass/Vol] 13.5 g/dL Normal 13.0-16.5 [facility] Comment on above: Performed By: #### L 100.0100 ####[facility] [address] [place], [address] IG% 0.300 Normal 0.0-0.9 [facility] Comment on above: Result Comment: IG% - Immature Granulocytes (promyelocytes, myelocytes and metamyelocytes) > 1% indicates that a LEFT SHIFT is Present. Performed By: #### L 100.0100 ####[facility] [address] [place], [address] Lymphocytes/100 WBC (Bld) 28.1 % Normal 19-41 [facility] Comment on above: Performed By: #### L 100.0100 ####[facility] [address] [place], [address] MCH (RBC) [Entitic mass] 30.3 pg Normal 27.0-32.0 [facility] Comment on above: Performed By: #### L 100.0100 ####[facility] [address] [place], [address] MCHC (RBC) [Mass/Vol] 33.4 g/dL Normal 32-36 [facility] Comment on above: Performed By: #### L 100.0100 ####[facility] [address] [place], [address] MCV (RBC) [Entitic vol] 90.6 fL Normal 80-94 [facility] Comment on above: Performed By: #### L 100.0100 ####[facility] [address] [place], [address] Monocytes/100 WBC (Bld) 8.8 % Normal 0-10 [facility] Comment on above: Performed By: #### L 100.0100 ####[facility] [address] [place], [address] Neutrophils/100 WBC (Bld) 59.5 % Normal 47-70 [facility] Comment on above: Performed By: #### L 100.0100 ####[facility] [address] [place], [address] Nucleated RBC (Bld) [#/Vol] 0 10*3/uL Normal 0-5 [facility] Comment on above: Performed By: #### L 100.0100 ####[facility] [address] [place], [address] Platelet mean volume (Bld) [Entitic vol] 8.8 fL Normal 6.2-12.0 [facility] Comment on above: Performed By: #### L 100.0100 ####[facility] [address] [place], [address] Platelets (Bld) [#/Vol] 310 10*3/uL Normal 150-450 [facility] Comment on above: Performed By: #### L 100.0100 ####[facility] [address] [place], [address] RBC (Bld) [#/Vol] 4.46 10*6/uL Low 4.6-6.2 [facility] Comment on above: Performed By: #### L 100.0100 ####[facility] [address] [place], [address] RDW SD 41.1 fl Normal 35.1-43.9 [facility] Comment on above: Performed By: #### L 100.0100 ####[facility] [address] [place], [address] WBC (Bld) [#/Vol] 6.4 10*3/uL Normal 4.4-11.0 [facility] Comment on above: Performed By: #### L 100.0100 ####[facility] [address] [place], [address] Colonoscopy Reporton 024 Colonoscopy Report [facility] Medical Records Department [address] [place] [address] Colonoscopy Report MR#: [id number] Acct: [id number] Name: MAYITO FORBES Rep #: [id number] : 1985 38 From: Lang Montilla DO PCP: Care Physician,No Primary Status:ADM IN Patient Name: Mayito Forbes Procedure Date: 11/10/2023 11:31 AM Date of : 1985 Age: 38 Procedure: Colonoscopy Indications: Abnormal CT of the GI tract Providers: Lang Montilla DO Referring MD: Fahad Pepe Do Medicines: Monitored Anesthesia Care Patient Profile: This is a 38 year old male. Refer to note in patient chart for documentation of history and physical. Last Colonoscopy: none. The patient's first colonoscopy is today. Complications: No immediate complications. Procedure: Pre-Anesthesia Assessment: - Prior to the procedure, a History and Physical was performed, and patient medications and allergies were reviewed. The patient is competent. The risks and benefits of the procedure and the sedation options and risks were discussed with the patient. All questions were answered and informed consent was obtained. Patient identification and proposed procedure were verified by the physician in the pre-procedure area. Mental Status Examination: alert and oriented. Airway Examination: normal oropharyngeal airway and neck mobility. Respiratory Examination: clear to auscultation. CV Examination: normal. Prophylactic Antibiotics: The patient does not require prophylactic antibiotics. Prior Anticoagulants: The patient has taken no anticoagulant or antiplatelet agents. ASA Grade Assessment: II - A patient with mild systemic disease. After reviewing the risks and benefits, the patient was deemed in satisfactory condition to undergo the procedure. The anesthesia plan was to use monitored anesthesia care (MAC). Immediately prior to administration of medications, the patient was re-assessed for adequacy to receive sedatives. The heart rate, respiratory rate, oxygen saturations, blood pressure, adequacy of pulmonary ventilation, and response to care were monitored throughout the procedure. The physical status of the patient was re-assessed after the procedure. After I obtained informed consent, the scope was passed under direct vision. Throughout the procedure, the patient's blood pressure, pulse, and oxygen saturations were monitored continuously. The Colonoscope was introduced through the anus and advanced to the cecum, identified by appendiceal orifice and ileocecal valve. The colonoscopy was performed without difficulty. The patient tolerated the procedure well. The quality of the bowel preparation was adequate. Scope In: 11:50:30 AM Scope Withdrawal Time 0 hours 8 minutes 13 seconds Scope Out: 12:03:21 PM Total Procedure Duration Time 0 hours 12 minutes 51 seconds Findings: The perianal and digital rectal examinations were normal. The entire examined colon appeared normal on direct and retroflexion views. Impression: - The entire examined colon is normal on direct and retroflexion views. - No specimens collected. Recommendation: - [facility]. - Resume regular diet. - Continue present medications. - Repeat colonoscopy in 10 years for screening purposes. Procedure Code(s): --- Professional --- 08794, Colonoscopy, flexible; diagnostic, including collection of specimen(s) by brushing or washing, when performed (separate procedure) CPT copyright 2021 [employer]. All rights reserved. The codes documented in this report are preliminary and upon well control instructor review may be revised to meet current compliance requirements. Lang Montilla DO 11/10/2023 12:06:40 PM This report has been signed electronically. Number of Addenda: 0 Note Initiated On: 11/10/2023 11:31 AM 11/10/23 1207 Date Lang Montilla DO Cosigner Signature: Date (if indicated) CC: No Primary Care Physician; Lang Montilla DO Date Dictated: 11/10/23 1131 Date Transcribed: Precision Honer: AMANDA Signed [facility] MR/POSTOP.[facility] 11-10-2023 MR/POSTOP.[facility] Medical Records Department [address] [place] [address] Anesthesia Postop Eval I 11/10/23 1212 MR#: [id number] Acct: [id number] Name: MAYITO FORBES Rep #: [id number] : 1985 38 From: Davie Serna PCP: Care Physician,No Primary Status:ADM IN Y Race: AA Location: WA3 [id number] Anesthesia: Postop Eval I Current Vital Signs Temperature: 97.2 F Pulse Rate: 78 Blood Pressure: 92/48 Respiratory Rate: 14 Pulse Ox: 94 Oxygen Delivery Method: Nasal Cannula Oxygen Flow Rate (L/min): 2 Assessment Airway patent: Yes Spontaneous unlabored respirations: Yes Mental status: Asleep nausea: No Vomiting: No Anesthesia Complication: No Fluid Hydration Crystalloid volume administer (ml): 200 Total IV fluid infused: 200 Progress Note Anesthesia document: Postop Eval 1 completed: Yes 11/10/23 1222 Date Davie Ornelasluistania Signature: Date CC: Signed Normal [facility] MR/[id number] 11-10-2023 [facility] Medical Records Department [address] [facility] [place] [place] [address] Anesthesia Postop Eval II 11/10/23 1341 MR#: [id number] Acct: [id number] Name: MAYITO FORBES Rep #: [id number] : 1985 38 From: Slava Adame MD PCP: Care Physician,No Primary Status:ADM IN Y Race: AA Location: [place] [id number] Anesthesia Postop Eval I Sum Postop Eval Completion status Anesthesia document: Postop Eval 1 completed: Yes Anesthesia Postop Eval I Summary Anesthesia Postop Eval I Summary: Anesthesia Postop Eval I: Assessment Summary Airway patent Yes 11/10/23 12:21 [email or web address] Spontaneous unlabored Yes 11/10/23 12:21 [email or web address] respirations Mental status Asleep 11/10/23 12:21 [email or web address] nausea No 11/10/23 12:21 [email or web address] Vomiting No 11/10/23 12:21 [email or web address] Anesthesia Postop Eval I: Fluid Summary Crystalloid volume administer 200 11/10/23 12:22 [email or web address] (ml) Colloids volume administered ( ml) Blood Product volume administered (ml) Total IV fluid infused 200 11/10/23 12:22 [email or web address] Anesthesia Postop Eval I: Summary Notes Anesthesia Complication No 11/10/23 12:21 [email or web address] Anesthesia Complication Comment: Post-operative progress note Anesthesia: Postop Eval II Evaluation Mental status: Awake Pain Level: 0 nausea: No Vomiting: No Complications Anesthesia Complication: No 11/10/23 1341 Date Slava Acharya Signature: Date CC: Signed Normal [facility] Basic Metabolic Profile (BMP )on 11-09-2023 BUN/CRE 12.1 RATIO Normal 10-20 [facility] Comment on above: Performed By: #### L 500.2500, L100.0500 #### [facility] [address] [place], [address] CA,Total 8.4 mg/dL Low 8.5-10.1 [facility] Comment on above: Performed By: #### L 500.2500, L100.0500 #### [facility] [address] [place], [address] Chloride [Moles/Vol] 108 mmol/L High 98-107 [facility] Comment on above: Performed By: #### L 500.2500, L100.0500 #### [facility] [address] [place], [address] CO2 [Moles/Vol] 24.0 mmol/L Normal 21.0-32.0 [facility] Comment on above: Performed By: #### L 500.2500, L100.0500 #### [facility] [address] [place], [address] Creatinine [Mass/Vol] 0.82 mg/dL Normal 0.70-1.30 [facility] Comment on above: Result Comment: The validity of the calculated GFR GFRAA in patients over 70 years has not been determined. Clinical correlation is essential. Performed By: #### L 500.2500, L100.0500 #### [facility] [address] [place], [address] ECRCL 118.17 ml/min Normal [facility] Comment on above: Performed By: #### L 500.2500, L100.0500 #### [facility] [address] [place], [address] EST GFR - AA 134 mL/min Normal >60 [facility] Comment on above: Result Comment: Afri can Taiwanese GFR Calc Performed By: #### L 500.2500, L100.0500 #### [facility] [address] [place], [address] GAP 6 Normal 5-15 [facility] Comment on above: Performed By: #### L 500.2500, L100.0500 #### [facility] [address] [place], [address] GFR/1.73 sq M.predicted among non-blacks MDRD (S/P/Bld) [Vol rate/Area] 111 mL/min/{1.73_m2} Normal >60 [facility] Comment on above: Result Comment: Non- GFR Calc Performed By: #### L 500.2500, L100.0500 #### [facility] [address] [place], [address] Glucose [Mass/Vol] 112 mg/dL High 74-106 [facility] Comment on above: Result Comment: Fast ing Glucose result from 100 to 125 mg/dL suggests IMPAIRED HOMEOSTASIS per A.D.A. criteria. Performed By: #### L 500.2500, L100.0500 #### [facility] [address] [place], [address] Potassium [Moles/Vol] 3.5 mmol/L Normal 3.5-5.1 [facility] Comment on above: Performed By: #### L 500.2500, L100.0500 #### [facility] [address] [place], [address] Sodium [Moles/Vol] 138 mmol/L Normal 136-145 [facility] Comment on above: Performed By: #### L 500.2500, L100.0500 #### [facility] [address] [place], [address] Urea nitrogen [Mass/Vol] 10 mg/dL Normal 7-18 [facility] Comment on above: Performed By: #### L 500.2500, L100.0500 #### [facility] [address] [place], [address] CBC-Complete Blood Cnt No Di ffon 11-09-2023 Erythrocyte distribution width (RBC) [Ratio] 12.4 % Normal 11.6-14.6 [facility] Comment on above: Performed By: #### L 500.2500, L100.0500 #### [facility] [address] [place], [address] Hematocrit (Bld) [Volume fraction] 42.0 % Normal 40-54 [facility] Comment on above: Performed By: #### L 500.2500, L100.0500 #### [facility] [address] [place], [address] Hemoglobin (Bld) [Mass/Vol] 14.3 g/dL Normal 13.0-16.5 [facility] Comment on above: Performed By: #### L 500.2500, L100.0500 #### [facility] [address] [place], [address] MCH (RBC) [Entitic mass] 30.1 pg Normal 27.0-32.0 [facility] Comment on above: Performed By: #### L 500.2500, L100.0500 #### [facility] [address] [place], [address] MCHC (RBC) [Mass/Vol] 34.0 g/dL Normal 32-36 [facility] Comment on above: Performed By: #### L 500.2500, L100.0500 #### [facility] [address] [place], [address] MCV (RBC) [Entitic vol] 88.4 fL Normal 80-94 [facility] Comment on above: Performed By: #### L 500.2500, L100.0500 #### [facility] [address] [place], [address] Platelet mean volume (Bld) [Entitic vol] 8.6 fL Normal 6.2-12.0 [facility] Comment on above: Performed By: #### L 500.2500, L100.0500 #### [facility] [address] [place], [address] Platelets (Bld) [#/Vol] 388 10*3/uL Normal 150-450 [facility] Comment on above: Performed By: #### L 500.2500, L100.0500 #### [facility] [address] [place], [address] RBC (Bld) [#/Vol] 4.75 10*6/uL Normal 4.6-6.2 [facility] Comment on above: Performed By: #### L 500.2500, L100.0500 #### [facility] [address] [place], [address] RDW SD 40.7 fl Normal 35.1-43.9 [facility] Comment on above: Performed By: #### L 500.2500, L100.0500 #### [facility] [address] [place], [address] WBC (Bld) [#/Vol] 12.5 10*3/uL High 4.4-11.0 [facility] Comment on above: Performed By: #### L 500.2500, L100.0500 #### [facility] [address] [place], [address] ECG 12-LEADon 11-09-2023 ECG 12-LEAD IMPRESSION: Sinus tachycardia Electronically Signed On 11-09-2023 03:03:48 EDT by [facility] MR/CON.PCM.GIon 11-09-2023 MR/CON.PCM.GI [facility] Medical Records Department [address] [place] [address] Consultation - 11/09/23 1839 MR#: [id number] Acct: [id number] Name: MAYITO FORBES Rep #: [id number] : 1985 38 From: [facility] Friend PCP: Care Physician,No Primary Status:ADM IN Location: [facility] [id number] HPI Consult Data Date of Consult: 11/09/23 HPI Narrative Reason for Consultation: Abnormal CT scan HPI Narrative: MAYITO FORBES, is a 38 M who presented to [facility] on 11/08/2023 as a transfer from [facility] ED for opiate withdrawal. Patient seen at bedside on the floor shortly after arrival here. Per nursing staff, patient was quite nauseous and actively vomiting when he arrived. He did have an IV in place and was given a dose of IV Zofran at that time, and he was started on the Subutex taper with as needed medications per the opiate withdrawal order set. I saw him a short time after he had received these medications. He was sitting up comfortably in bed and making appropriate eye contact but only answering questions with short responses. He stated that he still felt nauseous but did feel a bit better since receiving those medications. Patient is an active IV fentanyl user and states he has gone through withdrawal in the hospital before and tolerated withdrawal medications well. I reviewed the [facility] ED provider note in [facility]. Patient presented to the ED there early this afternoon with nausea, vomiting and generalized illness. He was given IV Zofran 4 mg x 2, Reglan 10 mg x 1 and droperidol 0.625 mg x 1 apparently with no relief of symptoms. He then had a CT abdomen pelvis done to rule out obstruction and appendicitis and it was negative for these things. It did show mild thickening of the villanueva of the ascending colon of unclear etiology as well as significant stool in the rectosigmoid colon, was otherwise benign. I was consulted for evaluation of his colonic abnormality. [facility] Medical History (Updated 11/09/23 @ 00:[address] Fahad Pepe, DO) Heroin abuse Opiate withdrawal Mandible fracture Carpal tunnel syndrome, bilateral Anxiety Depression Asthma Drug abuse IV drug user Substance abuse Home Medications ???Medication ???Instructions ???Recorded ???Last Taken ???Type venlafaxine 75 mg capsule,extended 150 mg PO DAILY mood 04/21/22 04/21/22 History release 24 hr naltrexone microspheres 380 mg 380 mg IM QMONTH 09/28/22 Unknown History intramuscular suspension,extended release (Vivitrol) venlafaxine 150 mg 150 mg PO DAILY DEPRESSION 11/08/23 Unknown History capsule,extended release 24 hr Allergy/AdvReac Type Severity Reaction Status Date / Time No Known Allergies Allergy Verified 09/28/22 10:17 Social History Smoking Status: Current every day smoker tobacco type: cigarettes Smokeless tobacco user: chewing tobacco alcohol intake: never substance use type: opiates ROS Constitutional Constitutional: Reports fatigue; Denies chills, fever(s) or weakness Cardiovascular Cardiovascular: Denies chest pain Respiratory/Chest Respiratory/Chest: Denies shortness of breath at rest Gastrointestinal Gastrointestinal: Reports nausea and vomiting; Denies abdominal pain, constipation or diarrhea Genitourinary Genitourinary: Denies dysuria Musculoskeletal Musculoskeletal: Reports myalgias; Denies arthralgias Neurologic Neurologic: Denies confusion, dizziness, focal weakness or headache(s) Physical Exam Const alert, oriented x3, no apparent distress and healthy appearing General Appearance: cooperative, well kempt and well developed Orientation / Consciousness: awake, oriented to person, oriented to place and oriented to time HEENT normocephalic, head/scalp atraumatic and moist oral mucous membranes Eyes PERRL, EOMs intact bilaterally and conjunctivae normal Neck supple, no JVD, thyroid normal and no carotid bruits General: trachea midline Resp normal respiratory effort, no retractions, no use of accessory muscles and clear to auscultation bilaterally Auscultation: Negative for rales, rhonchi or wheezes Cardio regular rate, regular rhythm, S1 normal heart sound, S2 normal heart sound, no murmurs, no rub and no gallops GI normal to inspection, nondistended, normoactive bowel sounds, soft to palpation, non-tender and non- distended Extremity no clubbing, cyanosis or edema Skin no rashes or lesions noted General Skin Exam: no breakdown Neuro oriented x3, CN's II-XII intact bilaterally, moves all extremities, no focal motor deficits and no sensory deficits noted Sensorium / Orientation: awake and alert Speech: speech normal Psych affect normal Lab / Micro Data 11/09/23 06:38 11/09/23 06:38 Labs: Laboratory Results - last 24 hr 0 (more content not included)... Normal [facility] No Panel Informationon 11-08 [address] [place] [address] degrees [facility] NH Interval 154 ms [facility] QRS [place] 45 degrees [facility] QRSD Interval 81 ms [facility] QT Interval 327 ms [facility] QTC Interval 439 ms [facility] T Wave [place] 25 degrees [facility] Sinus tachycardia Electronically Signed On 11-09-2023 03:03:48 EDT [facility]/09/2023 IMPRESSION: Sinus tachycardia Electronically Signed On 11-09-2023 03:03:48 EDT by [facility] Phosphoruson 11-09-2023 Phosphate [Mass/Vol] 2.3 mg/dL Low 2.5-4.9 [facility] Comment on above: Performed By: #### L 501.2300 #### [facility] [address] [place], [address] Phosphate [Mass/Vol] 1.2 mg/dL Low 2.5-4.9 [facility] Comment on above: Order Comment: Comme nts: May add to ED labs Performed By: #### L 501.2300 ####[facility] [address] [place], [address] Vital signson 11-09-2023 Heart rate 108 /min bpm [facility] [facility] TCC asked by the ED ENTREPRENEURSHIP PROGRAM DIRECTOR to assist with pt status of OON with [employer]. TCC was able to find a few select hospitals including [facility] in [place] and [facility], [facility]. Provider updated via secure chat. Normal [facility] ED SW follow up. SW consulted by OFFICE NURSE PRACTITIONER for in network addictions resources and supports. Patient's [employer] insurance not in network with [facility]. Patient also from out [facility]. SW provide [facility] & [facility] Crisis hotline, placed information in patient's AVS. Included [facility] as well since it is in network with insurance. Normal [facility] CBC-Complete Blood Cnt No Di ffon 11-08-2023 Erythrocyte distribution width (RBC) [Ratio] 12.2 % Normal 11.6-14.6 [facility] Comment on above: Performed By: #### L 500.4050, L100.0500 #### [facility] [address] [place], [address] Hematocrit (Bld) [Volume fraction] 43.5 % Normal 40-54 [facility] Comment on above: Performed By: #### L 500.4050, L100.0500 #### [facility] [address] [place], [address] Hemoglobin (Bld) [Mass/Vol] 15.3 g/dL Normal 13.0-16.5 [facility] Comment on above: Performed By: #### L 500.4050, L100.0500 #### [facility] [address] [place], [address] MCH (RBC) [Entitic mass] 30.6 pg Normal 27.0-32.0 [facility] Comment on above: Performed By: #### L 500.4050, L100.0500 #### [facility] [address] [place], [address] MCHC (RBC) [Mass/Vol] 35.2 g/dL Normal 32-36 [facility] Comment on above: Performed By: #### L 500.4050, L100.0500 #### [facility] [address] [place], [address] MCV (RBC) [Entitic vol] 87.0 fL Normal 80-94 [facility] Comment on above: Performed By: #### L 500.4050, L100.0500 #### [facility] [address] [place], [address] Platelet mean volume (Bld) [Entitic vol] 8.5 fL Normal 6.2-12.0 [facility] Comment on above: Performed By: #### L 500.4050, L100.0500 #### [facility] [address] [place], [address] Platelets (Bld) [#/Vol] 431 10*3/uL Normal 150-450 [facility] Comment on above: Performed By: #### L 500.4050, L100.0500 #### [facility] [address] [place], [address] RBC (Bld) [#/Vol] 5.00 10*6/uL Normal 4.6-6.2 [facility] Comment on above: Performed By: #### L 500.4050, L100.0500 #### [facility] [address] [place], [address] RDW SD 38.6 fl Normal 35.1-43.9 [facility] Comment on above: Performed By: #### L 500.4050, L100.0500 #### [facility] [address] [place], [address] WBC (Bld) [#/Vol] 13.6 10*3/uL High 4.4-11.0 [facility] Comment on above: Performed By: #### L 500.4050, L100.0500 #### [facility] [address] [place], [address] CT ABDOMEN PELVIS W CONTRAST on 11-08-2023 CT ABDOMEN PELVIS W CONTRAST [facility] 1985 [id number] Exam Date/Time: 11/08/2023 09:32 Procedure: CT ABDOMEN PELVIS W CONTRAST Ordering Provider: LAINEZ JOSEPH Reason For Exam: Bowel obstruction suspected Procedure: CT Abdomen and Pelvis. EXAM DATE AND TIME: 11/08/2023 9:32 AM EDT INDICATION: Bowel obstruction suspected ADDITIONAL INFORMATION: none COMPARISON: CT abdomen pelvis on 10/25/2023 TECHNIQUE: Abdomen: with intravenous contrast Pelvis: with intravenous contrast 75 ml of Isovue 370 was injected. Dose reduction was employed with automated exposure control. FINDINGS: LOWER CHEST: Small hiatal hernia. ABDOMEN: LIVER: within normal limits. BILE DUCTS: normal caliber. GALLBLADDER: No calcified gallstones. Normal caliber wall. PANCREAS: within normal limits. SPLEEN: within normal limits. ADRENALS: within normal limits. KIDNEYS: Unchanged subcentimeter right renal cyst. No enhancing renal mass or hydronephrosis. PELVIS: REPRODUCTIVE ORGANS: no pelvic masses. URETERS: within normal limits. BLADDER: within normal limits. BOWEL: Mild thickening of the villanueva of the ascending colon. Findings be seen with mild colitis or peristalsis, however neoplasm is not excluded. Recommend correlation with colonoscopy. No small bowel obstruction. Normal appendix. Significant stool is present within the rectosigmoid colon, nonspecific but can be seen with constipation. No enlarged mesenteric lymph nodes. PERITONEUM: no ascites or free air, no fluid collection. VESSELS: within normal limits. LYMPH NODES: No enlarged nodes. RETROPERITONEUM: within normal limits. ABDOMINAL WALL: within normal limits. BONES: Mild degenerative changes throughout the imaged spine. IMPRESSION: 1. Mild thickening of the villanueva of the ascending colon. Findings be seen with mild colitis or peristalsis, however neoplasm is not excluded. Recommend gastroenterology consultation for colonoscopy referral. 2. Significant stool is present within the rectosigmoid colon, nonspecific but can be seen with constipation. 3. Small hiatal hernia. Report Dictated on Electronically Signed By: Ahsan Schuler MD Electronically Signed Date/Time: 11/08/2023 9:44 AM EDT Pt refused to raise arms pt laying there like he can't hear me. Normal [facility] CT Abdomen and Pelvis W cont rast Tyrell 11-08-2023 1. Mild thickening of the villanueva of the ascending colon. Findings be seen with mild colitis or peristalsis, however neoplasm is not excluded. Recommend gastroenterology consultation for colonoscopy referral. 2. Significant stool is present within the rectosigmoid colon, nonspecific but can be seen with constipation. 3. Small hiatal hernia. Report Dictated on Electronically Signed By: Ahsan Schuler MD Electronically Signed Date/Time: 11/08/2023 9:44 AM T [facility] Patient Name: MAYITO FORBES : 1985 Exam Date/Time: 11/08/2023 09:32 Procedure: CT ABDOMEN PELVIS W CONTRAST Ordering Provider: LAINEZ JOSEPH Reason For Exam: Bowel obstruction suspected Procedure: CT Abdomen and Pelvis. EXAM DATE & TIME: 11/08/2023 9:32 AM EDT INDICATION: Bowel obstruction suspected ADDITIONAL INFORMATION: none COMPARISON: CT abdomen pelvis on 10/25/2023 TECHNIQUE: Abdomen: with intravenous contrast Pelvis: with intravenous contrast 75 ml of Isovue 370 was injected. Dose reduction was employed with automated exposure control. FINDINGS: LOWER CHEST: Small hiatal hernia. ABDOMEN: LIVER: within normal limits. BILE DUCTS: normal caliber. GALLBLADDER: No calcified gallstones. Normal caliber wall. PANCREAS: within normal limits. SPLEEN: within normal limits. ADRENALS: within normal limits. KIDNEYS: Unchanged subcentimeter right renal cyst. No enhancing renal mass or hydronephrosis. PELVIS: REPRODUCTIVE ORGANS: no pelvic masses. URETERS: within normal limits. BLADDER: within normal limits. BOWEL: Mild thickening of the villanueva of the ascending colon. Findings be seen with mild colitis or peristalsis, however neoplasm is not excluded. Recommend correlation with colonoscopy. No small bowel obstruction. Normal appendix. Significant stool is present within the rectosigmoid colon, nonspecific but can be seen with constipation. No enlarged mesenteric lymph nodes. PERITONEUM: no ascites or free air, no fluid collection. VESSELS: within normal limits. LYMPH NODES: No enlarged nodes. RETROPERITONEUM: within normal limits. ABDOMINAL WALL: within normal limits. BONES: Mild degenerative changes throughout the imaged spine. [facility] Ahsan Schuler MD - 11/08/2023 [facility] Name: [facility] 1985 [id number] Exam Date/Time: 11/08/2023 09:32 Procedure: CT ABDOMEN PELVIS W CONTRAST Ordering Provider: LAINEZ JOSEPH Reason For Exam: Bowel obstruction suspected Procedure: CT Abdomen and Pelvis. EXAM DATE & TIME: 11/08/2023 9:32 AM EDT INDICATION: Bowel obstruction suspected ADDITIONAL INFORMATION: none COMPARISON: CT abdomen pelvis on 10/25/2023 TECHNIQUE: Abdomen: with intravenous contrast Pelvis: with intravenous contrast 75 ml of Isovue 370 was injected. Dose reduction was employed with automated exposure control. FINDINGS: LOWER CHEST: Small hiatal hernia. ABDOMEN: LIVER: within normal limits. BILE DUCTS: normal caliber. GALLBLADDER: No calcified gallstones. Normal caliber wall. PANCREAS: within normal limits. SPLEEN: within normal limits. ADRENALS: within normal limits. KIDNEYS: Unchanged subcentimeter right renal cyst. No enhancing renal mass or hydronephrosis. PELVIS: REPRODUCTIVE ORGANS: no pelvic masses. URETERS: within normal limits. BLADDER: within normal limits. BOWEL: Mild thickening of the villanueva of the ascending colon. Findings be seen with mild colitis or peristalsis, however neoplasm is not excluded. Recommend correlation with colonoscopy. No small bowel obstruction. Normal appendix. Significant stool is present within the rectosigmoid colon, nonspecific but can be seen with constipation. No enlarged mesenteric lymph nodes. PERITONEUM: no ascites or free air, no fluid collection. VESSELS: within normal limits. LYMPH NODES: No enlarged nodes. RETROPERITONEUM: within normal limits. ABDOMINAL WALL: within normal limits. BONES: Mild degenerative changes throughout the imaged spine. IMPRESSION: 1. Mild thickening of the villanueva of the ascending colon. Findings be seen with mild colitis or peristalsis, however neoplasm is not excluded. Recommend gastroenterology consultation for colonoscopy referral. 2. Significant stool is present within the rectosigmoid colon, nonspecific but can be seen with constipation. 3. Small hiatal hernia. Report Dictated on Electronically Signed By: Ahsan Schuler MD Electronically Signed Date/Time: 11/08/2023 9:44 AM EDT [facility] Study observation (narrative) [facility] alth CT Abdomen and Pelvis W cont rast IVOrdered By: Ahsan Schuler on 11-08-2023 [facility] Work Phone: Comprehensive Metabolic Prof ilon 11-08-2023 Albumin [Mass/Vol] 3.7 g/dL Normal 3.2-5.0 [facility] Comment on above: Performed By: #### L 500.4050, L100.0500 #### [facility] [address] [place], [address] Albumin/Globulin [Mass ratio] 1.1 {ratio} Normal 0.9-2.4 [facility] Comment on above: Performed By: #### L 500.4050, L100.0500 #### [facility] [address] [place], [address] ALK P 86 U/L Normal 45-117 [facility] Comment on above: Performed By: #### L 500.4050, L100.0500 #### [facility] [address] [place], [address] ALT [Catalytic activity/Vol] 29 U/L Normal 16-61 [facility] Comment on above: Performed By: #### L 500.4050, L100.0500 #### [facility] [address] [place], [address] AST [Catalytic activity/Vol] 17 U/L Normal 15-37 [facility] Comment on above: Performed By: #### L 500.4050, L100.0500 #### [facility] [address] [place], [address] Bilirubin [Mass/Vol] 0.60 mg/dL Normal 0.20-1.00 [facility] Comment on above: Result Comment: For patients on eltrombopag therapy, use of Dimension Depue TBIL is not recommended. Performed By: #### L 500.4050, L100.0500 #### [facility] [address] [place], [address] BUN/CRE 7.8 RATIO Low 10-20 [facility] Comment on above: Performed By: #### L 500.4050, L100.0500 #### [facility] [address] [place], [address] CA,Total 9.0 mg/dL Normal 8.5-10.1 [facility] Comment on above: Performed By: #### L 500.4050, L100.0500 #### [facility] [address] [place], [address] Chloride [Moles/Vol] 109 mmol/L High 98-107 [facility] Comment on above: Performed By: #### L 500.4050, L100.0500 #### [facility] [address] [place], [address] CO2 [Moles/Vol] 22.0 mmol/L Normal 21.0-32.0 [facility] [facility] Comment on above: Performed By: #### L 500.4050, L100.0500 #### [facility] [address] [place], [address] Creatinine [Mass/Vol] 1.03 mg/dL Normal 0.70-1.30 [facility] Comment on above: Result Comment: The validity of the calculated GFR GFRAA in patients over 70 years has not been determined. Clinical correlation is essential. Performed By: #### L 500.4050, L100.0500 #### [facility] [address] [place], [address] ECRCL 94.08 ml/min Normal [facility] Comment on above: Performed By: #### L 500.4050, L100.0500 #### [facility] [address] [place], [address] EST GFR - AA 104 mL/min Normal >60 [facility] Comment on above: Result Comment: Afri can Taiwanese GFR Calc Performed By: #### L 500.4050, L100.0500 #### [facility] [address] [place], [address] GAP 8 Normal 5-15 [facility] Comment on above: Performed By: #### L 500.4050, L100.0500 #### [facility] [address] [place], [address] GFR/1.73 sq M.predicted among non-blacks MDRD (S/P/Bld) [Vol rate/Area] 86 mL/min/{1.73_m2} Normal >60 [facility] Comment on above: Result Comment: Non- GFR Calc Performed By: #### L 500.4050, L100.0500 #### [facility] [address] [place], [address] Globulin (S) [Mass/Vol] 3.5 g/dL Normal 2.2-4.2 [facility] Comment on above: Performed By: #### L 500.4050, L100.0500 #### [facility] [address] [place], [address] Glucose [Mass/Vol] 119 mg/dL High 74-106 [facility] Comment on above: Result Comment: Fast ing Glucose result from 100 to 125 mg/dL suggests IMPAIRED HOMEOSTASIS per A.D.A. criteria. Performed By: #### L 500.4050, L100.0500 #### [facility] [address] [place], [address] Potassium [Moles/Vol] 3.2 mmol/L Low 3.5-5.1 [facility] Comment on above: Performed By: #### L 500.4050, L100.0500 #### [facility] [address] [place], [address] Sodium [Moles/Vol] 139 mmol/L Normal 136-145 [facility] Comment on above: Performed By: #### L 500.4050, L100.0500 #### [facility] [address] [place], [address] T PROT 7.2 g/dL Normal 6.4-8.2 [facility] Comment on above: Performed By: #### L 500.4050, L100.0500 #### [facility] [address] [place], [address] Urea nitrogen [Mass/Vol] 8 mg/dL Normal 7-18 [facility] Comment on above: Performed By: #### L 500.4050, L100.0500 #### [facility] [address] [place], [address] ECG 12-LEADon 11-08-2023 ECG 12-LEAD IMPRESSION: Sinus tachycardia No STEMI Electronically Signed On 11-08-2023 23:31:25 EDT by [facility] ED Nursing Noteon 11-08-2023 ED Nursing Note Report to KIMMY Banks. Caroline Appiah RN 11/08/23 192 [facility] ED Nursing Note This RN [facility] patient is okay to transfer with peripheral IV. Caroline Appiah RN 11/08/23 1900 [facility] ED Nursing Note Pt rounded on at thi s time. Pt reports nausea is returning at this time. This RN to contact provider who assumed care of patient. Caroline Appiah RN 11/08/23 1857 [facility] ED Nursing Note This RN went to priya dinero on patient to complete COWS screen and pain assessment. Pt currently alseep. RR even and unlabored. Pt remains on monitor. Caroline Appiah RN 11/08/23 1833 [facility] ED Nursing Note DM ETA 1830. Caroline Appiah RN 11/08/23 1625 [facility] ED Nursing Note This RN went over de tox rules for a second time with patient. Patient agrees with all rules, and verbalizes understanding if any rules are broken. Caroline Appiah RN 11/08/23 1605 [facility] ED Nursing Note Pt denies wanting to eat at this time. Pt requesting kameron izabella. Pt provided kameron izabella at this time. Caorline Appiah RN 11/08/23 1604 [facility] ED Nursing Note Report to KIMMY Moran on med surg 3 at [facility]. Caroline Appiah RN 11/08/23 1600 [facility] ED Nursing Note Report to KIMMY East. Caroline Appiah RN 11/08/23 1312 [facility] ED Nursing Note EKG at bedside. Caroline Appiah RN 11/08/23 1304 [facility] ED Nursing Note NOE Mayfield made son re of patient tachycardia. This RN requested EKG. Caroline Appiah RN 11/08/23 1248 [facility] ED Nursing Note This ACC RN saw carlos ent for KI consult. Last use of fentanyl was on 11/07/23 at 2 am. He used about 1/2 gram. COWS is a 7. Patient has to be prompted to answer questions as he is drowsy. He wants to stop fentanyl use and go to detox. He does not want to go to residential or [facility] after detox. His preference is Vivitrol MAT. I explained I could find him MAT in his insurance network and printed a list. He stated he would go to [facility] in [place]. I spoke to [facility] to ensure they accepted his insurance. They do accept [employer]. They suggested [facility] also has detox unit if he requires detox prior to MAT. Providers notified. Vianey Proctor RN 11/08/23 1218 Vianey Proctor RN 11/08/23 1256 Vianey Proctor RN 11/08/23 1257 Vianey Proctor RN 11/08/23 1637 [facility] ED Nursing Note NOE Mayfield made son re of COWS score. Caroline Appiah RN 11/08/23 1207 [facility] ED Nursing Note Pt rounded on at thi s time. Pt reports to this RN he is still nauseous. NOE Mayfield notified. Caroline Appiah RN 11/08/23 1147 [facility] ED Nursing Note NOE Mayfield notified of n/v episode. Caroline Appiah RN 11/08/23 1022 [facility] ED Nursing Note This RN went to PO challenge patient per NOE Mayfield. Pt reports he had another episode of n/v. Emesis noted in Emesis bag. Caroline Appiah RN 11/08/23 0818 [facility] ED Nursing Note Pt resting in bed wi th eyes closed. Pt remains on monitor at this time. No signs of distress noted. Breathing even and unlabored. Caroline Appiah RN 11/08/23 0740 [facility] ED Nursing Note Called patient for vitals. No answer. Susy Carolina MA 11/08/23 0239 [facility] ED Provider Noteon ED Provider Note Emergency Department Encounter [facility] EMERGENCY DEPT Patient: Mayito Forbes : 1985 Date of Evaluation: 11/07/2023 ED Supervising Physician: Marc Lainez DO I personally evaluated Mayito Forbes and made/approved the management plan and take responsibility for the patient management. This will serve as my Supervisory note and shared attestation. I did perform a substantive portion of the visit including all aspects of the Medical Decision Making. I wore appropriate PPE for the entirety of this encounter. In brief, Mayito Forbes is a 38 y.o. that presents to the emergency department seeking detox. The patient reports he uses fentanyl on a regular basis. He reports nausea and vomiting palpitations, generalized weakness. Reports last time he used fentanyl was yesterday. Focused exam: Appears ill, actively vomiting, generalized abdominal tenderness, diaphoretic, tachycardic. Brief ED course/MDM: 2:09 PM - The patient presented with chief complaint of nausea, vomiting, generalized illness. See history and physical exam above. Differential diagnose includes but is not limited to opioid withdrawal, appendicitis, bowel obstruction. To aid in management, I performed an independent interpretation of all laboratory tests, EKG, imaging, and other diagnostics ordered. The patient required Zofran 4 mg IV x 2, Reglan 10 mg IV x 1, and droperidol 0.625 mg IV with no relief of nausea or vomiting. CT of the abdomen and pelvis was obtained to rule out bowel obstruction and appendicitis, and it was negative. Blood counts, electrolytes, kidney function, lipase, ethanol, hepatic function are unremarkable. UDS is positive for fentanyl. Given the patient's insurance he will be transferred to [facility] for medical admission for intractable nausea and vomiting, they also have resources for addiction medicine so the patient may also be treated for his addiction. Patient's care was significantly impacted by social determinants of health including drug addiction. All diagnostic, treatment, and disposition decisions were made by myself in conjunction with the MARYELLEN. For all further details of the patient's emergency department visit, please see their documentation. (Comment: Please note this report has been produced using speech recognition software and may contain errors related to that system including errors in grammar, punctuation, and spelling, as well as words and phrases that may be inappropriate. If there are any questions or concerns please feel free to contact the dictating provider for clarification.) Marc Lainez DO [employer] Marc Lainez DO 11/08/23 1411 Normal [facility] H AND P Exam - [facility] 11-08-2023 H&P Exam - Hospitalist [facility] Medical Records Department [address] [place] [address] H P Exam - Hospitalist 11/08/23 2100 MR#: [id number] Acct: [id number] Name: MAYITO FORBES Rep #: [id number] : 1985 38 From: Fahad Pepe DO PCP: Care Physician,No Primary Status:ADM IN Location: [facility]-4 HPI - General General Date of Admission: 11/08/23 Date of Service: 11/08/23 Chief Complaint: Opiate withdrawal HPI Narrative MAYITO FORBES, is a 38 M who presented to [facility] on 11/08/2023 as a transfer from [facility] ED for opiate withdrawal. Patient seen at bedside on the floor shortly after arrival here. Per nursing staff, patient was quite nauseous and actively vomiting when he arrived. He did have an IV in place and was given a dose of IV Zofran at that time, and he was started on the Subutex taper with as needed medications per the opiate withdrawal order set. I saw him a short time after he had received these medications. He was sitting up comfortably in bed and making appropriate eye contact but only answering questions with short responses. Stated that he still felt nauseous but did feel a bit better since receiving those medications. Patient is an active IV fentanyl user and states he has gone through withdrawal in the hospital before and tolerated withdrawal medications well. I reviewed the [facility] ED provider note in [facility]. Patient presented to the ED there early this afternoon with nausea, vomiting and generalized illness. He was given IV Zofran 4 mg x 2, Reglan 10 mg x 1 and droperidol 0.625 mg x 1 apparently with no relief of symptoms. He then had a CT abdomen pelvis done to rule out obstruction and appendicitis and it was negative for these things. It did show mild thickening of the villanueva of the ascending colon of unclear etiology as well as significant stool in the rectosigmoid colon, was otherwise benign. CBC and CMP drawn there were unremarkable. Lipase was negative. Ethanol level was negative. UDS there was positive for fentanyl. Patient was then transferred to [facility] for admission for addiction medicine resources for opiate withdrawal. During my encounter, patient denies any fevers or chills. Denies any abdominal pain or discomfort. He has been having normal bowel movements and denies any diarrhea. Denies any history of abdominal issues or any family history of bowel disease. No other acute concerns at this time. [facility] Medical History (Updated 11/09/23 @ 00:[address] Fahad Pepe, DO) Heroin abuse Opiate withdrawal Mandible fracture Carpal tunnel syndrome, bilateral Anxiety Depression Asthma Drug abuse IV drug user Substance abuse Home Medications ???Medication ???Instructions ???Recorded ???Last Taken ???Type venlafaxine 75 mg capsule,extended 150 mg PO DAILY mood 04/21/22 04/21/22 History release 24 hr naltrexone microspheres 380 mg 380 mg IM QMONTH 09/28/22 Unknown History intramuscular suspension,extended release (Vivitrol) venlafaxine 150 mg 150 mg PO DAILY DEPRESSION 11/08/23 Unknown History capsule,extended release 24 hr Allergy/AdvReac Type Severity Reaction Status Date / Time No Known Allergies Allergy Verified 09/28/22 10:17 Social History Smoking Status: Current every day smoker tobacco type: cigarettes Smokeless tobacco user: chewing tobacco alcohol intake: never substance use type: opiates ROS Constitutional Constitutional: Reports fatigue; Denies chills, fever(s) or weakness Cardiovascular Cardiovascular: Denies chest pain Respiratory/Chest Respiratory/Chest: Denies shortness of breath at rest Gastrointestinal Gastrointestinal: Reports nausea and vomiting; Denies abdominal pain, constipation or diarrhea Genitourinary Genitourinary: Denies dysuria Musculoskeletal Musculoskeletal: Reports myalgias; Denies arthralgias Neurologic Neurologic: Denies confusion, dizziness, focal weakness or headache(s) Physical Exam Const alert, oriented x3, no apparent distress and average body habitus Constitutional Narrative: Younger male, sitting up in bed, appears mildly uncomfortable due to ongoing nausea, otherwise answering questions with short appropriate responses and in no acute distress. General Appearance: cooperative and comfortable HEENT normocephalic, head/scalp atraumatic, hearing grossly normal bilaterally and nasal mucous membranes and turbinates normal Eyes PERRL, EOMs intact bilaterally and conjunctivae normal Neck full ROM Chest inspection of chest normal Resp normal respiratory effort, normal air movement, no use of accessory muscles and clear to auscultation bilaterally Cardio regular rate, regular rhythm, no murmurs and peripheral pulses 2+ throughout GI normal to inspection, nondistended, normoactive bow (more content not included)... Normal [facility] Magnesiumon 11-08-2023 Magnesium [Mass/Vol] 1.7 mg/dL Normal 1.6-2.6 [facility] Comment on above: Order Comment: Comme nts: may add to ED labs Performed By: #### L 501.1615 ####[facility] [id number] [place], [address] No Panel InformationOrdered By: [facility] on 11-08-2023 [address] [place] 79 degrees [facility] Work Phone: NH Interval 180 ms [facility] Work Phone: QRS [place] 80 degrees [facility] Work Phone: QRSD Interval 74 ms [facility] h Work Phone: QT Interval 304 ms [facility] Work Phone: QTC Interval 428 ms [facility] Work Phone: T Wave [place] 39 degrees [facility] Work Phone: [facility] Work Phone: No Panel Informationon 11-07 Sinus tachycardia No STEMI Electronically Signed On 11-08-2023 23:31:25 EDT [facility] - 11/08/2023 IMPRESSION: Sinus tachycardia No STEMI Electronically Signed On 11-08-2023 23:31:25 EDT by [facility] No Panel InformationOrdered By: Wade Mac on 11-08-2023 FENTANYL SCREEN, URINE Positive Negative [facility] Fentanyl has been screened for by Immunoassay at a 1 ng/ml threshold. POSITIVE results are not confirmed by a more specific alternative method unless requested. If confirmation is needed, request confirmation under separate order. NOTE: These results are for medical treatment only. Analysis performed using non-forensic procedures. [facility] Vital signsOrdered By: [facility] on 11-08-2023 Heart rate 119 /min bpm [facility] Work Phone: BASIC METABOLIC PANELon 10-28 Anion gap [Moles/Vol] 10 mmol/L Normal 3-13 [facility] Comment on above: Performed By: #### L AB20, LAB15, LAB46 #### [employer]: LILIA KNOX ([id number]) [facility] ([facility]) [address] [place] [address] Calcium [Mass/Vol] 9.7 mg/dL Normal 8.4-10.4 [facility] Comment on above: Performed By: #### L AB20, LAB15, LAB46 #### [employer]: LILIA KNOX ([id number]) [facility] [address] [place] [address] Chloride [Moles/Vol] 106 mmol/L Normal 98-107 [facility] Comment on above: Performed By: #### L AB20, LAB15, LAB46 #### [employer]: LILIA KNOX ([id number]) [facility] [address] [place] [address] CO2 [Moles/Vol] 23 mmol/L Normal 22-30 [facility] Comment on above: Performed By: #### L AB20, LAB15, LAB46 #### [employer]: LILIA KNOX ([phone]) [facility] [address] [place] [address] Creatinine [Mass/Vol] 0.69 mg/dL Normal 0.66-1.25 [facility] Comment on above: Performed By: #### L AB20, LAB15, LAB46 #### [employer]: LILIA KNOX ([id number]) [facility] [address] [place] [address] GLOMERULAR FILTRATION RATE ML/MIN/1.73 SQ M.PREDICTED >90.0 Normal >60.0 [facility] Comment on above: Result Comment: Calc ulation based on the Chronic Kidney Disease Epidemiology Collaboration (CKD-EPI) equation refit without adjustment for race Performed By: #### L AB20, LAB15, LAB46 #### [employer]: LILIA KNOX ([id number]) [facility] [address] [place] [address] [place] Glucose [Mass/Vol] 108 mg/dL High 70-100 [facility] Comment on above: Performed By: #### L AB20, LAB15, LAB46 #### [employer]: LILIA [id number]) [facility]) [address] [place] [address] Potassium [Moles/Vol] 3.7 mmol/L Normal 3.5-5.1 [facility] Comment on above: Performed By: #### L AB20, LAB15, LAB46 #### [employer]: LILIA KNOX ([id number]) [facility] ([facility]) [address] [place] [address] Sodium [Moles/Vol] 138 mmol/L Normal 135-145 [facility] Comment on above: Performed By: #### L AB20, LAB15, LAB46 #### [employer]: LILIA KNOX ([id number]) [facility] ([facility]) [address] [place] [address] Urea nitrogen [Mass/Vol] 11 mg/dL Normal 9-20 [facility] Comment on above: Performed By: #### L AB20, LAB15, LAB46 #### [employer]: LILIA KNOX ([id number]) [facility] ([facility]) [address] [place] [address] Basic metabolic 1998 panelon 11-07-2023 Anion gap [Moles/Vol] 10 mmol/L 3 - 13 mmol/L [facility] Calcium [Mass/Vol] 9.7 mg/dL 8.4 - 10. 4 mg/dL [facility] Chloride [Moles/Vol] 106 mmol/L 98 - 10 7 mmol/L [facility] CO2 [Moles/Vol] 23 mmol/L 22 - 30 mmol/L [facility] Creatinine [Mass/Vol] 0.69 mg/dL 0.66 - 1.25 mg/dL [facility] GFR/1.73 sq M.predicted MDRD (S/P/Bld) [Vol rate/Area] - PINF [facility] Comment on above: Calculation based on the Chronic Kidney Disease Epidemiology Collaboration (CKD-EPI) equation refit without adjustment for race Glucose [Mass/Vol] 108 mg/dL High 70 - 100 mg/dL [facility] Interpretation and review of laboratory results Abnormal [facility] Potassium [Moles/Vol] 3.7 mmol/L 3.5 - 5.1 mmol/L [facility] Sodium [Moles/Vol] 138 mmol/L 135 - 145 mmol/L [facility] Urea nitrogen [Mass/Vol] 11 mg/dL 9 - 20 mg/dL [facility] CBC W Auto Differential pane l (Bld)Ordered By: Keily Nickerson on 11-07-2023 Basophils (Bld) [#/Vol] 0.1 10*3/uL 0.0 - 0.2 10*3/uL [facility] Basophils/100 WBC (Bld) 0.5 % 0.0 - 2.0 % [facility] Eosinophils (Bld) [#/Vol] 0.1 10*3/uL 0.0 - 0.5 10*3/uL [facility] Eosinophils/100 WBC (Bld) 1.2 % 0.0 - 6.0 % [facility] Erythrocyte distribution width (RBC) [Ratio] 12.1 % 11.5 - 15.0 % [facility] Hematocrit (Bld) [Volume fraction] 46.2 % 40.0 - 52.0 % [facility] Hemoglobin (Bld) [Mass/Vol] 16.3 g/dL 13.0 - 18.0 g/dL [facility] Immature granulocytes (Bld) [#/Vol] 0.0 10*3/uL NINF - 0.1 10*3/uL [facility] Immature granulocytes/100 WBC (Bld) 0.3 % 0.0 - 2.0 % [facility] Interpretation and review of laboratory results Abnormal [facility] Lymphocytes (Bld) [#/Vol] 1.3 10*3/uL 1.0 - 4.3 10*3/uL [facility] Lymphocytes/100 WBC (Bld) 12.1 % Low 15.0 - 45.0 % [facility] MCH (RBC) [Entitic mass] 30.2 pg 26. 0 - 34.0 pg [facility] MCHC (RBC) [Mass/Vol] 35.3 % 30.5 - 36.0 % [facility] MCV (RBC) [Entitic vol] 85.6 fL 77.0 - 99.0 fL [facility] Monocytes (Bld) [#/Vol] 0.7 10*3/uL 0.0 - 0.9 10*3/uL [facility] Monocytes/100 WBC (Bld) 6.4 % 5.0 - 13.0 % [facility] Neutrophils (Bld) [#/Vol] 8.5 10*3/uL High 1.8 - 7.5 10*3/uL [facility] Neutrophils/100 WBC (Bld) 79.5 % 38.0 - 82.0 % [facility] Nucleated RBC/100 WBC (Bld) [Ratio] 0.0 % [facility] Platelet mean volume (Bld) [Entitic vol] 8.7 fL Low 9.0 - 12.7 fL [facility] Platelets (Bld) [#/Vol] 404 10*3/uL 140 - 440 10*3/uL [facility] RBC (Bld) [#/Vol] 5.40 10*6/uL 4.40 - 5.9 0 10*6/uL [facility] WBC (Bld) [#/Vol] 10.7 10*3/uL 3.6 - 10.7 10*3/uL [facility] CBC WITH AUTO DIFFERENTIALon 11-07-2023 Basophils (Bld) [#/Vol] 0.1 10*3/uL Normal 0.0-0.2 [facility] Comment on above: Performed By: #### L [id number] ####[employer]: LILIA KNOX ([id number])[facility])[address] [place] [address] Basophils/100 WBC (Bld) 0.5 % Normal 0.0-2.0 [facility] Comment on above: Performed By: #### L [id number] ####[employer]: LILIA KNOX ([id number])[facility])[address] [place] [address] [place] Eosinophils (Bld) [#/Vol] 0.1 10*3/uL Normal 0.0-0.5 [facility] Comment on above: Performed By: #### L [id number] ####[employer]: LILIA KNOX ([id number])[facility])[address] [place] [address] [place] Eosinophils/100 WBC (Bld) 1.2 % Normal 0.0-6.0 [facility] Comment on above: Performed By: #### L [id number] ####[employer]: LILIA [id number])[facility])[address] [place] [address] Erythrocyte distribution width (RBC) [Ratio] 12.1 % Normal 11.5-15.0 [facility] Comment on above: Performed By: #### L [id number] ####[employer]: LILIA KNOX ([id number])[facility])[address] [place] [address] Hematocrit (Bld) [Volume fraction] 46.2 % Normal 40.0-52.0 [facility] Comment on above: Performed By: #### L [id number] ####[employer]: LILIA KNOX ([id number])[facility])[address] [place] [address] Hemoglobin (Bld) [Mass/Vol] 16.3 g/dL Normal 13.0-18.0 [facility] Comment on above: Performed By: #### L [id number] ####[employer]: LILIA KNOX ([id number])[facility] ([facility])[address] [place] [address] IMMATURE GRANS % 0.3 % Normal 0.0-2.0 [facility] Comment on above: Performed By: #### L [id number] ####[employer]: LILIA KNOX ([id number])[facility])[address] [place] [address] IMMATURE GRANS ABSOLUTE 0.0 10*3/uL Normal <0.1 [facility] Comment on above: Performed By: #### L [id number] ####[employer]: LILIA KNOX ([phone])[facility])[address] [place] [address] [place] Lymphocytes (Bld) [#/Vol] 1.3 10*3/uL Normal 1.0-4.3 [facility] Comment on above: Performed By: #### L [id number] ####Quill Buncher And Sorter: LILIA KNOX ([phone])[facility])[address] [place] [address] [place] Lymphocytes/100 WBC (Bld) 12.1 % Low 15.0-45.0 [facility] Comment on above: Performed By: #### L [id number] ####Quill Buncher And Sorter: LILIA KNOX ([phone])[facility] ([facility])[address] [place] [address] MCH (RBC) [Entitic mass] 30.2 pg Normal 26.0-34.0 [facility] Comment on above: Performed By: #### L [id number] ####Quill Buncher [employer] Sorter: LILIA KNOX ([id number])[facility] ([facility])[address] [place] [address] MCHC 35.3 % Normal 30.5-36.0 [facility] Comment on above: Performed By: #### L [id number] ####Quill Buncher And Sorter: LILIA KNOX ([id number])[facility] ([facility])[address] [place] [address] MCV (RBC) [Entitic vol] 85.6 fL Normal 77.0-99.0 [facility] Comment on above: Performed By: #### L [id number] ####Quill Buncher And Sorter: LILIA KNOX ([phone])[facility] ([facility])[address] [place] [address] Monocytes (Bld) [#/Vol] 0.7 10*3/uL Normal 0.0-0.9 [facility] Comment on above: Performed By: #### L [id number] ####Quill Buncher [employer] Sorter: LILIA KNOX ([id number])[facility] ([facility])[address] [place] [address] Monocytes/100 WBC (Bld) 6.4 % Normal 5.0-13.0 [facility] Comment on above: Performed By: #### L [id number] ####Qu[employer] Buncher [employer] Sorter: LILIA KNOX ([phone])[facility])[address] [place] [address] NEUTROPHILS ABSOLUTE 8.5 10*3/uL High 1.8-7.5 [facility] Comment on above: Performed By: #### L [id number] ####Quill Buncher [employer] Sorter: LILIA KNOX ([phone])[facility] ([facility])[address] [place] [address] Neutrophils/100 WBC (Bld) 79.5 % Normal 38.0-82.0 [facility] Comment on above: Performed By: #### L [id number] ####Quill Buncher And Sorter: LILIA KNOX ([id number])[facility] ([facility])[address] [place] [address] NRBC 0.0 /100 WBCs Normal 0.0-2.0 [facility] Comment on above: Performed By: #### L [id number] ####Quill Buncher [employer] Sorter: LILIA KNOX ([id number])[facility])[address] [place] [address] Platelet mean volume (Bld) [Entitic vol] 8.7 fL Low 9.0-12.7 [facility] Comment on above: Performed By: #### L [id number] ####Quill Buncher [employer] Sorter: LILIA KNOX ([id number])[facility] ([facility])[address] [place] [address] Platelets (Bld) [#/Vol] 404 10*3/uL Normal 140-440 [facility] Comment on above: Performed By: #### L [id number] ####Quill Buncher [employer] Sorter: LILIA KNOX ([phone])[facility] ([facility])[address] [place] [address] RBC (Bld) [#/Vol] 5.40 10*6/uL Normal 4.40-5.90 [facility] Comment on above: Performed By: #### L [id number] ####Quill Buncher And Sorter: LILIA KNOX ([id number])[facility])[address] [place] [address] WBC (Bld) [#/Vol] 10.7 10*3/uL Normal 3.6-10.7 [facility] Comment on above: Performed By: #### L [id number] ####Quill Buncher [employer] Sorter: LILIA KNOX ([id number])[facility] ([facility])[address] [place] [address] COMPLETE URINALYSISon 2023 BACTERIA (#/HPF) IN URINE Negative Normal Negative [facility] Comment on above: Performed By: #### L [id number] ####Quill Buncher And Sorter: LILIA KNOX ([id number])[facility] ([facility])[address] [place] [address] BILIRUBIN, TOTAL PRESENCE IN URINE Negative Normal Negative [facility] Comment on above: Performed By: #### L [id number] ####Quill Buncher And Sorter: LILIA KNOX ([phone])[facility])[address] [place] [address] Clarity (U) Clear Normal Clear [facility] Comment on above: Performed By: #### L [id number] ####Quill Buncher And Sorter: LILIA KNOX ([phone])[facility])[address] [place] [address] Color (U) Yellow Normal Lt. Yellow [facility] Comment on above: Performed By: #### L [id number] ####Quill Buncher And Sorter: LILIA KNOX ([phone])[facility])[address] [place] [address] GLUCOSE (MG/DL) IN URINE Normal Normal Nor mal (<70) [facility] Comment on above: Performed By: #### L [id number] ####Quill Buncher And Sorter: LILIA KNOX ([phone])[facility])[address] [place] [address] HEMOGLOBIN PRESENCE IN URINE Negative Normal Negative [facility] Comment on above: Performed By: #### L [id number] ####Quill Buncher And Sorter: LILIA KNOX ([phone])[facility])[address] [place] [address] HYALINE CASTS (#/LPF) IN URINE SEDIMENT BY MICROSCOPY Negative Normal Negative [facility] Comment on above: Performed By: #### L [id number] ####Quill Buncher And Sorter: LILIA KNOX ([id number])[facility] ([facility])[address] [place] [address] Ketones Ql (U) 20 mg/dL Abnormal Negative [facility] Comment on above: Performed By: #### L [id number] ####Quill Buncher And Sorter: LILIA KNOX ([id number])[facility] ([facility])[address] [place] [address] LEUKOCYTE ESTERASE PRESENCE IN URINE BY TEST STRIP Negative Normal Negative [facility] Comment on above: Performed By: #### L [id number] ####Quill Buncher And Sorter: LILIA KNOX ([id number])[facility] ([facility])[address] [place] [address] NITRITE PRESENCE IN URINE Negative Normal Negative [facility] Comment on above: Performed By: #### L [id number] ####Quill Buncher And Sorter: LILIA KNOX ([id number])[facility])[address] [place] [address] pH (U) 8.0 [pH] Normal 5.0-8.0 [facility] Comment on above: Performed By: #### L [id number] ####Quill Buncher And Sorter: LILIA KNOX ([phone])[facility])[address] [place] [address] Protein (U) [Mass/Vol] 10 mg/dL Abnormal Negative [facility] Comment on above: Performed By: #### L [id number] ####Quill Buncher And Sorter: LILIA KNOX ([id number])[facility])[address] [place] [address] RBC (#/HPF) IN URINE SEDIMENT 0-2 Normal 0-2 [facility] Comment on above: Performed By: #### L [id number] ####Quill Buncher And Sorter: LILIA KNOX ([id number])[facility])[address] [place] [address] Specific gravity (U) [Rel density] 1.020 Normal 1.005-1.030 [facility] Comment on above: Performed By: #### L [id number] ####Quill Buncher And Sorter: LILIA KNOX ([id number])[facility] ([facility])[address] [place] [address] SQUAMOUS EPITHELIAL CELLS (#/HPF) IN URINE SEDIMENT Negative Normal 3-5 [facility] Comment on above: Performed By: #### L [id number] ####Quill Buncher And Sorter: LILIA KNOX ([id number])[facility] [place] [address] UROBILINOGEN (MG/DL) IN URINE Normal Normal Normal (0-1) [facility] Comment on above: Performed By: #### L [id number] ####Quill Buncher And Sorter: LILIA KNOX ([phone])[facility] ([facility])[address] [place] [address] WBC (LEUKOCYTE) (#/HPF) IN URINE SEDIMENT 3-5 Normal 0-5 [facility] Comment on above: Performed By: #### L [id number] ####Quill Buncher And Sorter: LILIA KNOX ([phone])[facility])[address] [place] [address] DRUGS OF ABUSEon 11-07-2023 AMPHETAMINE SCREEN Negative Normal [facility] Comment on above: Performed By: #### L AB20, LAB15, LAB46 #### Quill Buncher And Sorter: LILIA KNOX ([phone]) [facility]) [address] [place] [address] BARBITURATES SCREEN Negative Normal [facility] Comment on above: Performed By: #### L AB20, LAB15, LAB46 #### Quill Buncher And Sorter: LILIA KNOX ([id number]) [facility]) [address] [place] [address] [place] BENZODIAZEPINE SCREEN Negative Normal [facility] Comment on above: Performed By: #### L AB20, LAB15, LAB46 #### Quill Buncher And Sorter: LILIA KNOX ([phone]) [facility] [address] [place] [address] [place] COCAINE METAB. SCREEN Negative Normal [facility] Comment on above: Performed By: #### L AB20, LAB15, LAB46 #### Quill Buncher And Sorter: LILIA KNOX ([id number]) [facility] [address] [place] [address] METHADONE SCREEN Negative Normal [facility] Comment on above: Performed By: #### L AB20, LAB15, LAB46 #### Quill Buncher And Sorter: LILIA KNOX ([id number]) [facility] ([facility]) [address] [place] [address] OPIATES SCREEN Negative Normal [facility] Comment on above: Performed By: #### L AB20, LAB15, LAB46 #### Quill Buncher And Sorter: LILIA KNOX ([phone]) [facility] ([facility]) [address] [place] [address] OXYCODONE SCREEN Negative Normal [facility] Comment on above: Performed By: #### L AB20, LAB15, LAB46 #### Quill Buncher And Sorter: ILLIA KNOX ([id number]) [facility] [address] [place] [address] PHENCYCLIDINE SCREEN Negative Normal [facility] Comment on above: Result Comment: ORDE R COMMENTS: The expected value for all of the drugs listed above is Negative. The following drugs or drug groups have been screened for by Immunoassay at the following thresholds: Amphetamine class (1000 ng/mL) Barbiturates (200 ng/mL) Benzodiazepines (200 ng/mL) Cocaine (300 ng/mL) Methadone (300 ng/mL) Opiates (300 ng/mL) Oxycodone (100 ng/mL) PCP (25 ng/mL) NOTE: These results are for medical treatment only. Analysis performed using non-forensic procedures. POSITIVE results are NOT confirmed by a more specific alternative method unless requested. If confirmation is needed, request confirmation under separate order. Performed By: #### L AB20, LAB15, LAB46 #### Quill Buncher And Sorter: LILIA KNOX ([id number]) [facility] ([facility]) [address] [place] [address] ED Provider Noteon 4 ED Provider Note Emergency Department Encounter Location: [facility] Patient: Mayito Forbes : 1985 Date of evaluation: 11/07/2023 ED Provider: FLORIDA Mayorga CNP Time received sign-out: 0700 Mayito Forbes was checked out to me by RICH Fall. Please see his/her initial documentation for details of the patient's initial ED presentation, physical exam and completed studies. In brief, Mayito Forbes is a 38 y.o. 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 Patient reports that he injects approximately one gram of fentanyl daily. Reports last use was 020Tuesday. Patient reports that he was recently admitted for medication assisted treatment, but ultimately relapsed on discharge. Patient reports that he also smokes cigarettes and marijuana. Patient present complaining of profuse nausea and vomiting. He states that he has had numerous episodes of emesis, unable to tolerate any PO intake at all. Patient requesting Vivitrol for detox. I have reviewed and interpreted all of the currently available lab results and diagnostics from this visit: Results for orders placed or performed during the hospital encounter of 11/07/23 SARS-CoV-2 Antigen Specimen: Nasal; Swab Result Value Ref Range SARS-CoV-2 Antigen Negative Negative CBC auto differential Result Value Ref Range Auto WBC 10.7 3.6 - 10.7 10*3/uL RBC 5.40 4.40 - 5.90 10*6/uL Hemoglobin 16.3 13.0 - 18.0 g/dL Hematocrit 46.2 40.0 - 52.0 % MCV 85.6 77.0 - 99.0 fL MCH 30.2 26.0 - 34.0 pg MCHC 35.3 30.5 - 36.0 % RDW 12.1 11.5 - 15.0 % Platelets 404 140 - 440 10*3/uL MPV 8.7 (L) 9.0 - 12.7 fL nRBC 0.0 0.0 - 2.0 /100 WBCs Neutrophils Relative 79.5 38.0 - 82.0 % Lymphocytes Relative 12.1 (L) 15.0 - 45.0 % Monocytes Relative 6.4 5.0 - 13.0 % Eosinophils Relative 1.2 0.0 - 6.0 % Basophils Relative 0.5 0.0 - 2.0 % Immature Grans % 0.3 0.0 - 2.0 % Neutrophils Absolute 8.5 (H) 1.8 - 7.5 10*3/uL Lymphocytes Absolute 1.3 1.0 - 4.3 10*3/uL Monocytes Absolute 0.7 0.0 - 0.9 10*3/uL Eosinophils Absolute 0.1 0.0 - 0.5 10*3/uL Basophils Absolute 0.1 0.0 - 0.2 10*3/uL Immature Grans Absolute 0.0 <0.1 10*3/uL Basic metabolic panel Result Value Ref Range SODIUM 138 135 - 145 mmol/L POTASSIUM 3.7 3.5 - 5.1 mmol/L CHLORIDE 106 98 - 107 mmol/L CARBON DIOXIDE 23 22 - 30 mmol/L UREA NITROGEN 11 9 - 20 mg/dL CREATININE 0.69 0.66 - 1.25 mg/dL GLUCOSE 108 (H) 70 - 100 mg/dL CALCIUM 9.7 8.4 - 10.4 mg/dL ANION GAP 10 3 - 13 mmol/L eGFR >90.0 >60.0 mL/min/1.73m*2 Hepatic function panel Result Value Ref Range BILIRUBIN, TOTAL 0.6 0.2 - 1.3 mg/dL BILIRUBIN, DIRECT 0.0 0.0 - 0.3 mg/dL ALKALINE PHOSPHATASE 96 38 - 126 U/L AST (SGOT) 33 15 - 46 U/L ALT 30 0 - 49 U/L ALBUMIN 4.4 3.5 - 5.0 g/dL TOTAL PROTEIN 7.5 6.3 - 8.2 g/dL Drug screen panel, emergency Result Value Ref Range AMPHETAMINE SCREEN Negative BARBITURATES SCREEN Negative BENZODIAZEPINE SCREEN Negative COCAINE METAB. SCREEN Negative METHADONE SCREEN Negative OPIATES SCREEN Negative OXYCODONE SCREEN Negative PHENCYCLIDINE SCREEN Negative Complete Urinalysis Result Value Ref Range Color, Urine Yellow Lt. Yellow Clarity, Urine Clear Clear pH, Urine 8.0 5.0 - 8.0 pH Leukocytes, Urine Negative Negative Raina/uL Nitrite, Urine Negative Negative Protein, Urine 10 (A) Negative mg/dL Glucose, Urine Normal Normal (<70) mg/dL Bilirubin, Urine Negative Negative mg/dL Ketones, Urine 20 (A) Negative mg/dL Urobilinogen, Urine Normal Normal (0-1) mg/dL Blood, Urine Negative Negative mg/dL RBC, Urine 0-2 0 - 2 /HPF WBC, Urine 3-5 0 - 5 /HPF Squamous Epithelial, Urine Negative 3 - 5 /HPF Bacteria, Urine Negative Negative /HPF Hyaline Casts, Urine Negative Negative /LPF SPECIFIC GRAVITY OF URINE (NUMERIC) 1.020 1.005 - 1.030 Ethanol Result Value Ref Range ETHANOL IN SER/PLAS <0.010 0.000 - 0.010 g/dL Fentanyl, urine Result Value Ref Range FENTANYL SCREEN, URINE Positive Negative No orders to display Final ED Course and MDM: In brief, Mayito Forbes is a 38 y.o. whose care was signed out to me by the outgoing provider. In brief, at time of sign out, workup was complete, pending disposition with patient still symptomatic with several episodes of nausea and vomiting. I was notified that patient has out of network insurance and could not be admitted to [facility] without being full self-pay. Patient notified of same. Collaboration took place between myself, ED Attending Dr. Lainez, Social Work, [facility], and MAT RN. Ultimately it was determined that patient would be best served at [facility] where he could be admitted medically, but also be provided with detox services. Patient is in agreement with this plan. Patient was medicated numerous times for symptoms while in ED, received total of 1.25 mg IV droperidol, 25 mg IV diphenhydramine, 10 mg IV (more content not included)... Normal [facility] ED Provider Note EMERGENCY DEPARTMENT ENCOUNTER Pt Name: Mayito Forbes Birthdate 1985 Date of evaluation: 11/07/2023 ED Provider: Bill Trimble, ENTREPRENEURSHIP PROGRAM DIRECTOR - MONOTYPE MECHANIC Patient seen independently within my scope of practice with an Emergency Medicine attending available for supervision. CHIEF COMPLAINT Fentanyl detox/nausea vomiting Chief Complaint Patient presents with Addiction Problem Patient coming in for detox from fentanyl, states last use was yesterday. Patient unsure of how much he uses a day HISTORY OF PRESENT ILLNESS (Location/Symptom, Timing/Onset, Context/Setting, Quality, Duration, Modifying Factors, Severity) Note limiting factors. I wore appropriate PPE for the entirety of this encounter. HPI Mayito Forbes is a 38 y.o. who presents to the emergency department for detox from fentanyl. Patient reported his last use was yesterday he uses about a gram of fentanyl per day states that he injected it last use was yesterday. He denies any chest pain or shortness of breath he speaking in full sentences able to swallow his own secretions. He does endorses nausea no vomiting no diarrhea patient denies any other injury or illness he denies any problems or urination such as frequency urgency burning discharge denies any fever chills or rashes or any other injury or illness. Patient reports he does smoke cigarettes denies any alcohol use or abuse he does admit to smoking some marijuana as well as fentanyl abuse. Nursing Notes were reviewed. Limitations to history: None Outside historians: None REVIEW OF SYSTEMS Review of Systems GENERAL: Denies weight change, fatigue, weakness, fever HEENT: Denies trauma, headache, dizziness, visual change, ear pain, hearing change, tinnitus, rhinorrhea CARDIAC: Denies hypertension, murmur, angina, palpations, dyspnea on exertion, edema RESPIRATORY: Denies shortness of breath, wheezing, cough, sputum, asthma, COPD GI: Complained of nausea, vomiting, denies change in bowels, abdominal pain URINARY: Denies changes in frequency/urgency, hematuria, incontinence, flank pain MUSCULOSKELETAL: Denies weakness, pain, change in ROM, redness, swelling NEURO: Denies loss in sensation, tingling, tremors, weakness, fainting or seizures ENDO: Denies heat/cold intolerance, polyuria, polydipsia, or swelling around neck PSYCH: Denies changes in mood, anxiety, depression, tension, memory Pertinent positives and negatives as per HPI. PAST MEDICAL HISTORY No past medical history on file. SURGICAL HISTORY No past surgical history on file. CURRENT MEDICATIONS Discharge Medication List as of 11/08/2023 8:21 PM CONTINUE these medications which have NOT CHANGED Details promethazine (Phenergan) 25 MG tablet Take 25 mg by mouth every 6 hours as needed for nausea or vomiting., Historical Med venlafaxine XR (Effexor XR) 225 MG 24 hr tablet Take 225 mg by mouth daily (with breakfast). Do not crush, chew, or split., Historical Med ALLERGIES Patient has no known allergies. FAMILY HISTORY No family history on file. SOCIAL HISTORY Social History Socioeconomic History Marital status: Single Tobacco Use Smoking status: Every Day Packs/day: 1 Types: Cigarettes Vaping Use Vaping Use: Never used Substance and Sexual Activity Alcohol use: Not Currently Drug use: Yes Types: Methamphetamines Social Determinants of Health Financial Resource Strain: Low Risk (10/25/2023) Overall Financial Resource Strain (CARDIA) Difficulty of Paying Living Expenses: Not hard at all Food Insecurity: No Food Insecurity (10/25/2023) Hunger Vital Sign Worried About Running Out of Food in the Last Year: Never true Ran Out of Food in the Last Year: Never true Transportation Needs: No Transportation Needs (10/25/2023) PRAPARE - Transportation Lack of Transportation (Medical): No Lack of Transportation (Non-Medical): No Physical Activity: Inactive (10/25/2023) Exercise Vital Sign Days of Exercise per Week: 0 days Minutes of Exercise per Session: 0 min Stress: No Stress Concern Present (10/25/2023) [place] [employer] - Occupational Stress Questionnaire Feeling of Stress : Not at all Social Connections: Moderately Isolated (10/25/2023) Social Connection and Isolation Panel [NHANES] Frequency of Communication with Friends and Family: Three times a week Frequency of Social Gatherings with Friends and Family: Three times a week Attends Druze Services: Never Active Member of Clubs or Organizations: No Attends Club or Organization Meetings: Never Marital Status: Living with partner Intimate Partner Violence: Not At Risk (10/25/2023) Humiliation, Afraid, Rape, and Kick questionnaire Fear of Current or Ex-Partner: No Emotionally Abused: No Physically Abused: No Sexually Abused: No Housing Stability: Low Risk (10/25/2023) Housing Stability Vital Sign Unable to Pay for Housing in the Last Year: No Number o (more content not included)... Normal [facility] ETHANOLon 11-07-2023 ETHANOL IN SER/PLAS <0.010 Normal 0.000-0.010 [facility] Comment on above: Result Comment: EZ Ding COMMENTS: NOTE: This result is for medical treatment only. Analysis performed using non-forensic procedures. Performed By: #### L AB20, LAB15, LAB46 #### Quill Buncher And Sorter: LILIA KNOX ([phone]) [facility] ([facility]) [address] [place] [address] Ethanol (Bld) [Mass/Vol]on 0 11-07-2023 Ethanol [Mass/Vol] g/dL 0.000 - 0.010 g/dL [facility] FENTANYL, URINEon 11-07-2023 FENTANYL SCREEN, URINE Positive Normal Negative [facility] Comment on above: Result Comment: EZ Ding COMMENTS: Fentanyl has been screened for by Immunoassay at a 1 ng/ml threshold. POSITIVE results are not confirmed by a more specific alternative method unless requested. If confirmation is needed, request confirmation under separate order. NOTE: These results are for medical treatment only. Analysis performed using non-forensic procedures. Performed By: #### L [id number] #### Quill Buncher And Sorter: LILIA KNOX ([phone]) [facility]) [address] [place] [address] HEPATIC FUNCTION PANELon Albumin [Mass/Vol] 4.4 g/dL Normal 3.5-5.0 [facility] Comment on above: Performed By: #### L AB20, LAB15, LAB46 #### Quill Buncher And Sorter: LILIA KNOX ([phone]) [facility]) [address] [place] [address] ALP [Catalytic activity/Vol] 96 U/L Normal 38-126 [facility] Comment on above: Performed By: #### L AB20, LAB15, LAB46 #### Quill Buncher And Sorter: LILIA KNOX ([phone]) [facility]) [address] [place] [address] ALT [Catalytic activity/Vol] 30 U/L Normal 0-49 [facility] Comment on above: Performed By: #### L AB20, LAB15, LAB46 #### Quill Buncher And Sorter: LILIA KNOX ([id number]) [facility]) [address] [place] [address] AST [Catalytic activity/Vol] 33 U/L Normal 15-46 [facility] Comment on above: Performed By: #### L AB20, LAB15, LAB46 #### Quill Buncher And Sorter: LILIA KNOX ([id number]) [facility]) [address] [place] [address] Bilirubin [Mass/Vol] 0.6 mg/dL Normal 0.2-1.3 [facility] Comment on above: Performed By: #### L AB20, LAB15, LAB46 #### Quill Buncher And Sorter: LILIA KNOX ([id number]) [facility] ([facility]) [address] [place] [address] Bilirubin.indirect [Mass/Vol] 0.0 mg/dL Normal 0.0-0.3 [facility] Comment on above: Performed By: #### L AB20, LAB15, LAB46 #### Quill Buncher And Sorter: ILLIA KNOX ([id number]) [facility] [address] [place] [address] Protein [Mass/Vol] 7.5 g/dL Normal 6.3-8.2 [facility] Comment on above: Performed By: #### L AB20, LAB15, LAB46 #### Quill Buncher And Sorter: LILIA KNOX ([phone]) [facility] [address] [place] [address] Hepatic function 2000 panelo n 11-07-2023 Albumin [Mass/Vol] 4.4 g/dL 3.5 - 5.0 g/dL [facility] ALP [Catalytic activity/Vol] 96 U/L 38 - 126 U/L [facility] ALT [Catalytic activity/Vol] 30 U/L 0 - 49 U/L [facility] AST [Catalytic activity/Vol] 33 U/L 15 - 46 U/L [facility] Bilirubin [Mass/Vol] 0.6 mg/dL 0.2 - 1 .3 mg/dL [facility] Bilirubin.conjugated [Mass/Vol] 0.0 mg/dL 0.0 - 0.3 mg/dL [facility] Protein [Mass/Vol] 7.5 g/dL 6.3 - 8.2 g/dL [facility] Laboratory - Drug toxicology Ordered By: Danni Boyce on 11-07-2023 Amphetamines Screen method >1000 ng/mL Ql (U) Negative [facility] Barbiturates Screen method >200 ng/mL Ql (U) Negative [facility] Benzodiazepines Ql (U) Negative Yo [facility] Methadone Screen Ql (U) Negative S [facility] Opiates Screen Ql (U) Negative [facility] oxyCODONE Ql (U) Negative [facility] Phencyclidine Ql (U) Negative [facility] Laboratory - Microbiology an d Antimicrobial susceptibilityOrdered By: Lisa Schwartz on 11-07-2023 SARS-CoV-2 (COVID-19) Ag IA.rapid Ql (Resp) Negative Negative [facility] Comment on above: A negative result do es not rule out the possibility of SARS-CoV-2 infection. NAAT-based methods should be considered for symptomatic patients presenting greater than seven days after onset of symptoms. Method: Lateral flow immunoassay. Fact sheets for healthcare providers and patients can be found at the following sites: https://www.fda.gov/media/070829/download https://www.MetaStat.gov/media/424371/download No Panel InformationOrdered By: Danni Boyce on 11-07-2023 COCAINE METAB. SCREEN Negative [facility] The expected value f or all of the drugs listed above is Negative. The following drugs or drug groups have been screened for by Immunoassay at the following thresholds: Amphetamine class (1000 ng/mL) Barbiturates (200 ng/mL) Benzodiazepines (200 ng/mL) Cocaine (300 ng/mL) Methadone (300 ng/mL) Opiates (300 ng/mL) Oxycodone (100 ng/mL) PCP (25 ng/mL) NOTE: These results are for medical treatment only. Analysis performed using non-forensic procedures. POSITIVE results are NOT confirmed by a more specific alternative method unless requested. If confirmation is needed, request confirmation under separate order. [facility] No Panel Informationon 11-06 Interpretation and review of laboratory results Normal [facility] SARS-COV-2 ANTIGENon 024 SARS-COV-2 ANTIGEN SARS-COV-2 ANTIGEN -BINAX Reference Negative Negative A negative result does not rule out the possibility of SARS-CoV-2 infection. NAAT-based methods should be considered for symptomatic patients presenting greater than seven days after onset of symptoms. Method: Lateral flow immunoassay. Fact sheets for healthcare providers and patients can be found at the following sites: https://www.fda.gov/med ia/751845/download https://www.fda.gov/med ia/703868/download Normal [facility] Comment on above: Performed By: #### L [id number] #### Qu[employer] Buncher [employer] Sorter: PARTH TADEO ([id number]) JOVANA SCHWARTZ (SBHLAB) [address] SARS-CoV-2 (COVID-19) Ag IA. rapid Ql (Resp)Ordered By: Lisa Schwartz on 11-07-2023 Interpretation and review of laboratory results Normal [facility] Urinalysis complete panel (U )Ordered By: Mayito Lee on 11-07-2023 Bacteria LM.HPF (Urine sed) [#/Area] Negative Negative /HPF [facility] Bilirubin Ql (U) Negative Negative mg/dL [facility] Clarity (U) Clear Clear [facility] Color (U) Yellow Lt. Yellow [facility] Epithelial cells.squamous LM.HPF (Urine sed) [#/Area] Negative [facility] h Glucose Ql (U) Normal Normal (<70) mg/dL [facility] Hemoglobin Ql (U) Negative Negative mg/dL [facility] Hyaline casts Auto (Urine sed) [#/Area] Negative Negative /LPF [facility] Interpretation and review of laboratory results Abnormal [facility] Ketones (U) [Mass/Vol] 20 mg/dL Abnormal Negative [facility] Leukocyte esterase Test strip Ql (U) Negative Negative Raina/uL [facility] Nitrite Ql (U) Negative Negative [facility] th pH (U) 8.0 [pH] 5.0 - 8.0 pH [facility] Protein (U) [Mass/Vol] 10 mg/dL Abnormal Negative [facility] RBC LM.HPF (Urine sed) [#/Area] 0-2 [facility] Specific gravity (U) [Rel density] 1.020 1.005 - 1.030 [facility] Urobilinogen (U) [Mass/Vol] Normal Normal (0-1) mg/dL [facility] WBC LM.HPF (Urine sed) [#/Area] 3-5 [facility] 3611-01-2023 36 Left a message to return call to [facility] for appointment with Dr. Andrews on 11/02/23. If the patient calls back during business hours, please transfer to our backline. Otherwise, Please arrive 15 minutes early with your insurance card and photo ID. Thank you! [facility] 10-31-2023 36 Okay, thank you but I do not treat opioid use disorders. Normal [facility] 10-29-2023 36 S: [facility] Inpatient provider requesting new patient/transition of care appointment for Opioid Use Disorder & Nausea/Vomiting. Pt discharged today 10/29/23 B: New patient appt A: Pt located in [place] per provider. R: Pt scheduled 11/02/23 with at [facility]. Provider notified. [facility] Nursing Noteon 10-29-2023 Nursing Note Discharge orders reviewed. Pt home meds returned. Work release provided by attending. [facility] CAR[facility]OORDon 10-28-2023 [place] Care Managment Initi al Assessment Date: 10/28/2023 Patient Name: Mayito Forbes : 1985 Patient Information Source of Information: Patient Cognition/Language: WFL - Within Functional Limits Permission given to speak with patient personal banking representative/caregive r as indicated: Yes (Audrey Ayers (Significant Other) [phone]) Confirmation of Payer with patient/family: Yes Payer Name: [employer] 2- [employer] Med[employer]. : No Confirmation of Primary Care Physician: No PCP (will place list on AVS) Primary Caregiver: Self If assistance needed, confirmed caregiver ready, willing and able to care for patient at discharge: Confirmed with: Living Arrangements Current Residence: Apartment Number of Floors 1 Number of Entry Steps: 5 or more (13) Bed/Bath Levels: Both first floor Facility: Facility Name: Plan to Return: Lives with: Spouse/significant other, Children Support Systems: Spouse/significant other, Children Activities of Daily Living Ambulation: Independent Bathing/Dressing: Independent Elimination/Continence/ Toileting: Independent Feeding: Independent Who Assists with Activities of Daily Living: Instrumental Activities of Daily Living Prescription Coverage: Yes Pharmacy Used: [facility] Medication Management: Independent Transportation/Shopping : Independent Transportation Mode: Car Needs Assistance with Transportation at Discharge: No (girlfriend will transport) Meal Preparation: Independent Laundry/Cleaning: Independent Finances/Bill Paying: Independent Communication: Independent Types of Care Services/Equipment Utilized Care Services: Dialysis Type: NA Durable Medical Equipment: Other (Comment) (none) Patient's Goal/Discharge Plan Patient expects to be discharged to: home Discharge Planning Actions: Continue to follow Patient's Choice Rights and [employer] and Collaborative Relationships Disclosed as Indicated for Post-Acute Care: Interdisciplinary Team Engagement: Social Work Referral for: Additional Information: Spoke with patient and girlfriend at bedside. Introduced self and role. Discharge planning needs discussed. Patient denies any needs at this time. Patient in hospital due to abdominal pain, N/V and diarrhea. Patient positive for marijuana and fentanyl. Addiction med consulted. Patient lives at home with girlfiend and child and denies any needs. States he is going home at discharge and will follow with his treatment plan. No other details given. TCC will continue to follow. Sirena Plunkett RN [facility] Progress Noteon 10-28-2023 Progress Note Addiction Medicine Patient: Mayito Forbes Admit Date: 10/25/2023 Primary Care Physician: No primary care provider on file. History of Present Illness The patient continues to be monitored by chemical dependency services. He remains on tramadol regimen for opiate withdrawal. He did state that he felt much better in reference to withdrawal symptomatology. Anxiety, sweats, tremulousness, cravings, joint, muscle pain significantly improved. Denied any significant nausea, cramping. Social History Socioeconomic History Marital status: Single Spouse name: Not on file Number of children: Not on file Years of education: Not on file Highest education level: Not on file Occupational History Not on file Tobacco Use Smoking status: Every Day Packs/day: 1 Types: Cigarettes Smokeless tobacco: Not on file Vaping Use Vaping Use: Never used Substance and Sexual Activity Alcohol use: Not Currently Drug use: Yes Types: Methamphetamines Sexual activity: Not on file Other Topics Concern Not on file Social History Narrative Not on file Social Determinants of Health Financial Resource Strain: Low Risk (10/25/2023) Overall Financial Resource Strain (CARDIA) Difficulty of Paying Living Expenses: Not hard at all Food Insecurity: No Food Insecurity (10/25/2023) Hunger Vital Sign Worried About Running Out of Food in the Last Year: Never true Ran Out of Food in the Last Year: Never true Transportation Needs: No Transportation Needs (10/25/2023) PRAPARE - Transportation Lack of Transportation (Medical): No Lack of Transportation (Non-Medical): No Physical Activity: Inactive (10/25/2023) Exercise Vital Sign Days of Exercise per Week: 0 days Minutes of Exercise per Session: 0 min Stress: No Stress Concern Present (10/25/2023) [place] [employer] Occupational [employer] - Occupational Stress Questionnaire Feeling of Stress : Not at all Social Connections: Moderately Isolated (10/25/2023) Social Connection and Isolation Panel [NHANES] Frequency of Communication with Friends and Family: Three times a week Frequency of Social Gatherings with Friends and Family: Three times a week Attends Druze Services: Never Active Member of Clubs or Organizations: No Attends Club or Organization Meetings: Never Marital Status: Living with partner Intimate Partner Violence: Not At Risk (10/25/2023) Humiliation, Afraid, Rape, and Kick questionnaire Fear of Current or Ex-Partner: No Emotionally Abused: No Physically Abused: No Sexually Abused: No Housing Stability: Low Risk (10/25/2023) Housing Stability Vital Sign Unable to Pay for Housing in the Last Year: No Number of Places Lived in the Last Year: 1 Unstable Housing in the Last Year: No History reviewed. No pertinent past medical history. History reviewed. No pertinent surgical history. No family history on file. Labs Recent Results (from the past 48 hour(s)) CBC auto differential Collection Time: 10/27/23 2:39 AM Result Value Ref Range Auto WBC 8.6 3.6 - 10.7 10*3/uL RBC 4.69 4.40 - 5.90 10*6/uL Hemoglobin 14.4 13.0 - 18.0 g/dL Hematocrit 41.6 40.0 - 52.0 % MCV 88.7 77.0 - 99.0 fL MCH 30.7 26.0 - 34.0 pg MCHC 34.6 30.5 - 36.0 % RDW 12.1 11.5 - 15.0 % Platelets 219 140 - 440 10*3/uL MPV 8.8 (L) 9.0 - 12.7 fL nRBC 0.0 0.0 - 2.0 /100 WBCs Neutrophils Relative 56.0 38.0 - 82.0 % Lymphocytes Relative 33.1 15.0 - 45.0 % Monocytes Relative 7.9 5.0 - 13.0 % Eosinophils Relative 2.0 0.0 - 6.0 % Basophils Relative 0.6 0.0 - 2.0 % Immature Grans % 0.4 0.0 - 2.0 % Neutrophils Absolute 4.8 1.8 - 7.5 10*3/uL Lymphocytes Absolute 2.8 1.0 - 4.3 10*3/uL Monocytes Absolute 0.7 0.0 - 0.9 10*3/uL Eosinophils Absolute 0.2 0.0 - 0.5 10*3/uL Basophils Absolute 0.1 0.0 - 0.2 10*3/uL Immature Grans Absolute 0.0 <0.1 10*3/uL Basic metabolic panel Collection Time: 10/27/23 2:39 AM Result Value Ref Range SODIUM 137 135 - 145 mmol/L POTASSIUM 3.7 3.5 - 5.1 mmol/L CHLORIDE 105 98 - 107 mmol/L CARBON DIOXIDE 26 22 - 30 mmol/L UREA NITROGEN 12 9 - 20 mg/dL CREATININE 0.78 0.66 - 1.25 mg/dL GLUCOSE 97 70 - 100 mg/dL CALCIUM 8.3 (L) 8.4 - 10.4 mg/dL ANION GAP 6 3 - 13 mmol/L eGFR >90.0 >60.0 mL/min/1.73m*2 Medications Home Meds: Prior to Admission medications Medication Sig Start Date End Date Taking? Authorizing Provider promethazine (Phenergan) 25 MG tablet Take 25 mg by mouth every 6 hours as needed for nausea or vomiting. Yes Historical Provider, venlafaxine XR (Effexor XR) 225 MG 24 hr tablet Take 225 mg by mouth daily (with breakfast). Do not crush, chew, or split. Yes Historical Provider, Inpatient Scheduled Meds: baclofen, 10 mg, Oral, TID gabapentin, 300 mg, Oral, TID nicotine, 1 patch, TransDERmal, Daily traMADol, 100 mg, Oral, q8h venlafaxine XR, 225 mg, Oral, Daily with breakfast Inpatient PRN Meds: PRN medications: acetaminophen OR acetaminophen, dicycl (more content not included)... Normal [facility] BASIC METABOLIC PANELon 09-29 Anion gap [Moles/Vol] 6 mmol/L Normal 3-13 [facility] Comment on above: Performed By: #### L [id number] ####Quill Buncher And Sorter: PARTH TADEO ([id number])[facility]PITAL[facility]mini SCHW[facility]Z (SBHLAB)[address] Calcium [Mass/Vol] 8.3 mg/dL Low 8.4-10.4 [facility] Comment on above: Performed By: #### L [id number] ####Quill Buncher And Sorter: PARTH TADEO ([id number])[facility]ITALPad[facility] RIOSN (SBHLAB)[address] Chloride [Moles/Vol] 105 mmol/L Normal 98-107 [facility] Comment on above: Performed By: #### L [id number] ####Quill Buncher And Sorter: PARTH TADEO ([id number])[facility]OSPITALPadmini THOMASNEW MEXICO BEHAVIOR[facility] HE[facility] INSTITUTE AT LAS VEGASN (SBHLAB)[address] CO2 [Moles/Vol] 26 mmol/L Normal 22-30 [facility] Comment on above: Performed By: #### L [id number] ####Quill Buncher And Sorter: PARTH TADEO ([id number])[facility] MARTHANEW MEXICO [facility]AV[facility] INSTITUTE AT L[facility] VEGASN (SBHLAB)[address] Creatinine [Mass/Vol] 0.78 mg/dL Normal 0.66-1.25 [facility] Comment on above: Performed By: #### L [id number] ####Quill Buncher And Sorter: PARTH TADEO ([id number])[facility]PITALPadmini THOMASCAROL (SBHLAB)[address] GLOMERULAR FILTRATION RATE ML/MIN/1.73 SQ M.PREDICTED >90.0 Normal >60.0 [facility] Comment on above: Result Comment: Calc ulation based on the Chronic Kidney Disease Epidemiology Collaboration (CKD-EPI) equation refit without adjustment for race Performed By: #### L [id number] ####Quill Buncher And Sorter: PARTH TADEO ([id number])[facility]ITALPadmini BANNERGINNYN (SBHLAB)[address] Glucose [Mass/Vol] 97 mg/dL Normal 70-100 [facility] Comment on above: Performed By: #### L [id number] ####Quill Buncher And Sorter: PARTH TADEO ([id number])[facility]ITALPadmini RIOSN (SBHLAB)[address] Potassium [Moles/Vol] 3.7 mmol/L Normal 3.5-5.1 [facility] Comment on above: Performed By: #### L [id number] ####Quill Buncher And Sorter: PARTH TADEO ([id number])[facility]PITALPadmini THOMASNEW MEXICO BE[facility] INSTITUTE AT L[facility] VEGASN (SBHLAB)[address] Sodium [Moles/Vol] 137 mmol/L Normal 135-145 [facility] Comment on above: Performed By: #### L [id number] ####Quill Buncher And Sorter: PARTH TADEO ([id number])[facility]PITALPadmini SCHWARTZ (SBHLAB)[address] Urea nitrogen [Mass/Vol] 12 mg/dL Normal 9-20 [facility] Comment on above: Performed By: #### L [id number] ####Quill Buncher And Sorter: PARTH TADEO ([id number])[facility] (SBHLAB)[address] [place] [address] Basic metabolic 1998 panelon 10-27-2023 Anion gap [Moles/Vol] 6 mmol/L 3 - 13 mmol/L [facility] Calcium [Mass/Vol] 8.3 mg/dL Low 8.4 - 10. 4 mg/dL [facility] Chloride [Moles/Vol] 105 mmol/L 98 - 10 7 mmol/L [facility] CO2 [Moles/Vol] 26 mmol/L 22 - 30 mmol/L [facility] Creatinine [Mass/Vol] 0.78 mg/dL 0.66 - 1.25 mg/dL [facility] GFR/1.73 sq M.predicted MDRD (S/P/Bld) [Vol rate/Area] - PINF [facility] Comment on above: Calculation based on the Chronic Kidney Disease Epidemiology Collaboration (CKD-EPI) equation refit without adjustment for race Glucose [Mass/Vol] 97 mg/dL 70 - 100 mg/dL [facility] Interpretation and review of laboratory results Abnormal [facility] Potassium [Moles/Vol] 3.7 mmol/L 3.5 - 5.1 mmol/L [facility] Sodium [Moles/Vol] 137 mmol/L 135 - 145 mmol/L [facility] Urea nitrogen [Mass/Vol] 12 mg/dL 9 - 20 mg/dL [facility] CBC W Auto Differential pane l (Bld)on 10-27-2023 Basophils (Bld) [#/Vol] 0.1 10*3/uL 0.0 - 0.2 10*3/uL [facility] Basophils/100 WBC (Bld) 0.6 % 0.0 - 2.0 % [facility] Eosinophils (Bld) [#/Vol] 0.2 10*3/uL 0.0 - 0.5 10*3/uL [facility] Eosinophils/100 WBC (Bld) 2.0 % 0.0 - 6.0 % [facility] Erythrocyte distribution width (RBC) [Ratio] 12.1 % 11.5 - 15.0 % [facility] Hematocrit (Bld) [Volume fraction] 41.6 % 40.0 - 52.0 % [facility] Hemoglobin (Bld) [Mass/Vol] 14.4 g/dL 13.0 - 18.0 g/dL [facility] Immature granulocytes (Bld) [#/Vol] 0.0 10*3/uL NINF - 0.1 10*3/uL [facility] Immature granulocytes/100 WBC (Bld) 0.4 % 0.0 - 2.0 % [facility] Interpretation and review of laboratory results Abnormal [facility] Lymphocytes (Bld) [#/Vol] 2.8 10*3/uL 1.0 - 4.3 10*3/uL [facility] Lymphocytes/100 WBC (Bld) 33.1 % 15.0 - 45.0 % [facility] MCH (RBC) [Entitic mass] 30.7 pg 26. 0 - 34.0 pg [facility] MCHC (RBC) [Mass/Vol] 34.6 % 30.5 - 36.0 % [facility] MCV (RBC) [Entitic vol] 88.7 fL 77.0 - 99.0 fL [facility] Monocytes (Bld) [#/Vol] 0.7 10*3/uL 0.0 - 0.9 10*3/uL [facility] Monocytes/100 WBC (Bld) 7.9 % 5.0 - 13.0 % [facility] Neutrophils (Bld) [#/Vol] 4.8 10*3/uL 1.8 - 7.5 10*3/uL [facility] Neutrophils/100 WBC (Bld) 56.0 % 38.0 - 82.0 % [facility] Nucleated RBC/100 WBC (Bld) [Ratio] 0.0 % [facility] Platelet mean volume (Bld) [Entitic vol] 8.8 fL Low 9.0 - 12.7 fL [facility] Platelets (Bld) [#/Vol] 219 10*3/uL 140 - 440 10*3/uL [facility] RBC (Bld) [#/Vol] 4.69 10*6/uL 4.40 - 5.9 0 10*6/uL [facility] WBC (Bld) [#/Vol] 8.6 10*3/uL 3.6 - 10.7 10*3/uL [facility] CBC WITH AUTO DIFFERENTIALon 10-27-2023 Basophils (Bld) [#/Vol] 0.1 10*3/uL Normal 0.0-0.2 [facility] Comment on above: Performed By: #### L [id number] #### [employer]uncher [employer] Sorter: PARTH TADEO ([id number]) [facility] (SBAB) [address] Basophils/100 WBC (Bld) 0.6 % Normal 0.0-2.0 S [facility] Comment on above: Performed By: #### L [id number] #### Quill Buncher And Sorter: PARTH TADEO ([id number]) [facility] (SBHLAB) [address] Eosinophils (Bld) [#/Vol] 0.2 10*3/uL Normal 0.0-0.5 [facility] Comment on above: Performed By: #### L [id number] #### Quill Buncher [employer] Sorter: PARTH TADEO ([id number]) [facility] (SBHLAB) [address] Eosinophils/100 WBC (Bld) 2.0 % Normal 0.0-6.0 [facility] Comment on above: Performed By: #### L [id number] #### Qu[employer] Buncher [employer] Sorter: PARTH TADEO ([id number]) [facility] ([facility]) [address] Erythrocyte distribution width (RBC) [Ratio] 12.1 % Normal 11.5-15.0 [facility] Comment on above: Performed By: #### L [id number] #### Qu[employer] Buncher [employer] Sorter: PARTH TADEO ([id number]) [facility] ([facility]) [address] Hematocrit (Bld) [Volume fraction] 41.6 % Normal 40.0-52.0 [facility] Comment on above: Performed By: #### L [id number] #### Quill Buncher And Sorter: PARTH ROWLEYGAVIN ([id number]) [facility] ([facility]) [address] [place] [address] Hemoglobin (Bld) [Mass/Vol] 14.4 g/dL Normal 13.0-18.0 [facility] Comment on above: Performed By: #### L [id number] #### Qu[employer] Buncher [employer] Sorter: PARTH TADEO ([id number]) [facility] ([facility]) [address] IMMATURE GRANS % 0.4 % Normal 0.0-2.0 [facility] Comment on above: Performed By: #### L [id number] #### Quill Buncher [employer] Sorter: PARTH TADEO ([id number]) [facility] ([facility]) [address] IMMATURE GRANS ABSOLUTE 0.0 10*3/uL Normal <0.1 [facility] Comment on above: Performed By: #### L [id number] #### Qu[employer] Buncher And Sorter: PARTH TADEO ([id number]) [facility] ([facility]) [address] Lymphocytes (Bld) [#/Vol] 2.8 10*3/uL Normal 1.0-4.3 [facility] Comment on above: Performed By: #### L [id number] #### Qu[employer] Buncher [employer] Sorter: PARTH TADEO ([id number]) [facility] (SBHLAB) [address] Lymphocytes/100 WBC (Bld) 33.1 % Normal 15.0-45.0 [facility] Comment on above: Performed By: #### L [id number] #### Qu[employer] Buncher [employer] Sorter: PARTH TADEO ([id number]) [facility] (SBHLAB) [address] MCH (RBC) [Entitic mass] 30.7 pg Normal 26.0-34.0 [facility] Comment on above: Performed By: #### L [id number] #### [employer] Buncher [employer] Sorter: PARTH ROWLEYGAVIN ([id number]) [facility] (SBHLAB) [address] MCHC 34.6 % Normal 30.5-36.0 [facility] Comment on above: Performed By: #### L [id number] #### [employer] Buncher [employer] Sorter: PARTH TADEO ([id number]) [facility] (SBHLAB) [address] MCV (RBC) [Entitic vol] 88.7 fL Normal 77.0-99.0 S [facility] Comment on above: Performed By: #### L [id number] #### Quill Buncher And Sorter: PARTH TADEO ([id number]) [facility] (SBHLAB) [address] Monocytes (Bld) [#/Vol] 0.7 10*3/uL Normal 0.0-0.9 [facility] Comment on above: Performed By: #### L [id number] #### [employer] Buncher And Sorter: PARTH TADEO ([id number]) [facility] (SBHLAB) [address] Monocytes/100 WBC (Bld) 7.9 % Normal 5.0-13.0 S [facility] Comment on above: Performed By: #### L [id number] #### [employer] Buncher [employer] Sorter: PARTH TADEO ([id number]) [facility] (SBHLAB) [address] NEUTROPHILS ABSOLUTE 4.8 10*3/uL Normal 1.8-7.5 [facility] Comment on above: Performed By: #### L [id number] #### Quill Buncher And Sorter: PARTH TADEO ([id number]) [facility] [address] Neutrophils/100 WBC (Bld) 56.0 % Normal 38.0-82.0 [facility] Comment on above: Performed By: #### L [id number] #### Quill Buncher And Sorter: PARTH TADEO ([id number]) [facility] (SBHLAB) [address] NRBC 0.0 /100 WBCs Normal 0.0-2.0 [facility] Comment on above: Performed By: #### L [id number] #### Qu[employer] Buncher And Sorter: PARTH TADEO ([id number]) [facility] (SBHLAB) [address] Platelet mean volume (Bld) [Entitic vol] 8.8 fL Low 9.0-12.7 [facility] Comment on above: Performed By: #### L [id number] #### Quill Buncher And Sorter: PARTH TADEO ([id number]) [facility] ([facility] [address] [place] [address] [place] Platelets (Bld) [#/Vol] 219 10*3/uL Normal 140-440 [facility] Comment on above: Performed By: #### L [id number] #### Quill Buncher And Sorter: PARTH TADOE ([id number]) [facility] ([facility] [address] [place] [address] [place] RBC (Bld) [#/Vol] 4.69 10*6/uL Normal 4.40-5.90 [facility] Comment on above: Performed By: #### L [id number] #### Quill Buncher And Sorter: PARTH TADEO ([id number]) [facility] [facility] ([facility]) [address] WBC (Bld) [#/Vol] 8.6 10*3/uL Normal 3.6-10.7 [facility] Comment on above: Performed By: #### L [id number] #### [employer] Sorter: PARTH TADEO ([id number]) [facility] ([facility]) [address] IDNon 10-27-2023 IDN The patient is Moderately Stable - Low risk of patient condition declining or worsening The patient's goals for the shift include rest and anxiety control The clinical goals for the shift include HDS this shift Over the shift, the patient did not make progress toward the following goals. Barriers to progression include none. Recommendations to address these barriers include none. Normal [facility] Nursing Noteon 10-27-2023 Nursing Note Pt IV removed at thi s time per Dr. Conway. Normal [facility] Progress Noteon 10-27-2023 Progress Note Nutrition rescreen completed. Patient assigned a level 1 for nutrition care. [facility] Progress Note Addiction Medicine Patient: Mayito Forbes Admit Date: 10/25/2023 Primary Care Physician: No primary care provider on file. History of Present Illness The patient remains on detox regimen for opiate withdrawal syndrome. Although the patient stated that he feels a little bit better. He continues to experience intermittent withdrawal symptomatology including anxiety, restlessness, cravings, chills. He was just started on the tramadol regimen yesterday. He initially verbalized intent of leaving the hospital today. I did explain to the patient that from a detoxification perspective, he had not completed detoxification, and would be at high risk for relapse where he to leave. I suggested that he stay in the hospital to complete detoxification. Fortunately, he is willing to make this commitment. We initially discussed possibility of transitioning to the detox unit, but he is not willing to transfer to [facility]. He is willing to stay at [facility] and complete detoxification. Social History Socioeconomic History Marital status: Single Spouse name: Not on file Number of children: Not on file Years of education: Not on file Highest education level: Not on file Occupational History Not on file Tobacco Use Smoking status: Every Day Packs/day: 1 Types: Cigarettes Smokeless tobacco: Not on file Vaping Use Vaping Use: Never used Substance and Sexual Activity Alcohol use: Not Currently Drug use: Yes Types: Methamphetamines Sexual activity: Not on file Other Topics Concern Not on file Social History Narrative Not on file Social Determinants of Health Financial Resource Strain: Low Risk (10/25/2023) Overall Financial Resource Strain (CARDIA) Difficulty of Paying Living Expenses: Not hard at all Food Insecurity: No Food Insecurity (10/25/2023) Hunger Vital Sign Worried About Running Out of Food in the Last Year: Never true Ran Out of Food in the Last Year: Never true Transportation Needs: No Transportation Needs (10/25/2023) PRAPARE - Transportation Lack of Transportation (Medical): No Lack of Transportation (Non-Medical): No Physical Activity: Inactive (10/25/2023) Exercise Vital Sign Days of Exercise per Week: 0 days Minutes of Exercise per Session: 0 min Stress: No Stress Concern Present (10/25/2023) [place] [employer] - Occupational Stress Questionnaire Feeling of Stress : Not at all Social Connections: Moderately Isolated (10/25/2023) Social Connection and Isolation Panel [NHANES] Frequency of Communication with Friends and Family: Three times a week Frequency of Social Gatherings with Friends and Family: Three times a week Attends Druze Services: Never Active Member of Clubs or Organizations: No Attends Club or Organization Meetings: Never Marital Status: Living with partner Intimate Partner Violence: Not At Risk (10/25/2023) Humiliation, Afraid, Rape, and Kick questionnaire Fear of Current or Ex-Partner: No Emotionally Abused: No Physically Abused: No Sexually Abused: No Housing Stability: Low Risk (10/25/2023) Housing Stability Vital Sign Unable to Pay for Housing in the Last Year: No Number of Places Lived in the Last Year: 1 Unstable Housing in the Last Year: No History reviewed. No pertinent past medical history. History reviewed. No pertinent surgical history. No family history on file. Labs Recent Results (from the past 48 hour(s)) ECG 12 lead Collection Time: 10/25/23 1:36 PM Result Value Ref Range Heart Rate 109 bpm QRSD Interval 75 ms QT Interval 0 ms QTC Interval 0 ms P [place] 76 degrees QRS [place] 75 degrees [place] 74 degrees [place] Interval 115 ms Fentanyl, urine Collection Time: 10/25/23 4:55 PM Result Value Ref Range FENTANYL SCREEN, URINE Positive Negative Drug screen panel, emergency Collection Time: 10/25/23 4:55 PM Result Value Ref Range AMPHETAMINE SCREEN Negative BARBITURATES SCREEN Negative BENZODIAZEPINE SCREEN Negative COCAINE METAB. SCREEN Negative METHADONE SCREEN Negative OPIATES SCREEN Negative OXYCODONE SCREEN Negative PHENCYCLIDINE SCREEN Negative THC SCREEN STAT Lab Collection Time: 10/25/23 4:55 PM Result Value Ref Range THC, URINE Positive Complete Urinalysis Collection Time: 10/25/23 4:55 PM Result Value Ref Range Color, Urine Yellow Lt. Yellow Clarity, Urine Clear Clear pH, Urine 6.5 5.0 - 8.0 pH Leukocytes, Urine Negative Negative Raina/uL Nitrite, Urine Negative Negative Protein, Urine 50 (A) Negative mg/dL Glucose, Urine Normal Normal (<70) mg/dL Bilirubin, Urine Negative Negative mg/dL Ketones, Urine 100 (A) Negative mg/dL Urobilinogen, Urine Normal Normal (0-1) mg/dL Blood, Urine Negative Negative mg/dL RBC, Urine 0-2 0 - 2 /HPF WBC, Urine 0-2 0 - 5 /HPF Squamous Epithelial, Urine 0-2 3 - 5 /HPF Non-Squamous Epithalial Cells, Urine 0-2 (A) Negative /HPF Bacteria, Urine Few (A) Negative /HPF M (more content not included)... Normal [facility] Progress Note Transfer from CDU to service. Josef Guerra MD Division of Hospitalist Medicine Acute care solutions Normal [facility] BASIC METABOLIC PANELon 05- Anion gap [Moles/Vol] 12 mmol/L Normal 3-13 [facility] Comment on above: Performed By: #### L [id number] #### [employer] S[employer]: PARTH TADEO ([id number]) [facility] ([facility]) [address] Calcium [Mass/Vol] 9.0 mg/dL Normal 8.4-10.4 [facility] Comment on above: Performed By: #### L [id number] #### [employer] Sorter: PARTH TADEO ([id number]) [facility] ([facility]) [address] Chloride [Moles/Vol] 103 mmol/L Normal 98-107 [facility] Comment on above: Performed By: #### L [id number] #### [employer] Sorter: PARTH TADEO ([id number]) [facility] ([facility]) [address] CO2 [Moles/Vol] 28 mmol/L Normal 22-30 [facility] Comment on above: Performed By: #### L [id number] #### [employer] Sorter: PARTH TADEO ([id number]) [facility] ([facility]) [address] Creatinine [Mass/Vol] 1.04 mg/dL Normal 0.66-1.25 [facility] Comment on above: Performed By: #### L [id number] #### [employer] Sorter: PARTH TADEO ([id number]) [facility] ([facility]) [address] GLOMERULAR FILTRATION RATE ML/MIN/1.73 SQ M.PREDICTED >90.0 Normal >60.0 [facility] Comment on above: Result Comment: Calc ulation based on the Chronic Kidney Disease Epidemiology Collaboration (CKD-EPI) equation refit without adjustment for race Performed By: #### L [id number] #### [employer] S[employer]: PARTH TADEO ([id number]) [facility] ([facility]) [address] [place] [address] [place] Glucose [Mass/Vol] 124 mg/dL High 70-100 [facility] Comment on above: Performed By: #### L [id number] #### [employer] Sorter: PARHT TADEO ([id number]) [facility] ([facility]) [address] [place] [address] [place] Potassium [Moles/Vol] 3.6 mmol/L Normal 3.5-5.1 [facility] Comment on above: Performed By: #### L [id number] #### [employer]: PARTH TADEO ([id number]) [facility] ([facility]) [address] Sodium [Moles/Vol] 143 mmol/L Normal 135-145 [facility] Comment on above: Performed By: #### L [id number] #### [employer] Sorter: PARTH TADEO ([id number]) [facility] ([facility]) [address] Urea nitrogen [Mass/Vol] 16 mg/dL Normal 9-20 [facility] Comment on above: Performed By: #### L [id number] #### [employer] Sorter: PARTH TADEO ([id number]) [facility] ([facility]) [address] Basic metabolic 1998 panelon 10-26-2023 Anion gap [Moles/Vol] 12 mmol/L 3 - 13 mmol/L [facility] Calcium [Mass/Vol] 9.0 mg/dL 8.4 - 10. 4 mg/dL [facility] Chloride [Moles/Vol] 103 mmol/L 98 - 10 7 mmol/L [facility] CO2 [Moles/Vol] 28 mmol/L 22 - 30 mmol/L [facility] Creatinine [Mass/Vol] 1.04 mg/dL 0.66 - 1.25 mg/dL [facility] GFR/1.73 sq M.predicted MDRD (S/P/Bld) [Vol rate/Area] - PINF [facility] Comment on above: Calculation based on the Chronic Kidney Disease Epidemiology Collaboration (CKD-EPI) equation refit without adjustment for race Glucose [Mass/Vol] 124 mg/dL High 70 - 100 mg/dL [facility] Interpretation and review of laboratory results Abnormal [facility] Potassium [Moles/Vol] 3.6 mmol/L 3.5 - 5.1 mmol/L [facility] Sodium [Moles/Vol] 143 mmol/L 135 - 145 mmol/L [facility] Urea nitrogen [Mass/Vol] 16 mg/dL 9 - 20 mg/dL [facility] CBC W Auto Differential pane l (Bld)Ordered By: Laurie Carvajal on 10-26-2023 Basophils (Bld) [#/Vol] 0.0 10*3/uL 0.0 - 0.2 10*3/uL [facility] Basophils/100 WBC (Bld) 0.3 % 0.0 - 2.0 % [facility] Eosinophils (Bld) [#/Vol] 0.0 10*3/uL 0.0 - 0.5 10*3/uL [facility] Eosinophils/100 WBC (Bld) 0.0 % 0.0 - 6.0 % [facility] Erythrocyte distribution width (RBC) [Ratio] 12.3 % 11.5 - 15.0 % [facility] Hematocrit (Bld) [Volume fraction] 48.5 % 40.0 - 52.0 % [facility] Hemoglobin (Bld) [Mass/Vol] 17.0 g/dL 13.0 - 18.0 g/dL [facility] Immature granulocytes (Bld) [#/Vol] 0.0 10*3/uL NINF - 0.1 10*3/uL [facility] Immature granulocytes/100 WBC (Bld) 0.3 % 0.0 - 2.0 % [facility] Interpretation and review of laboratory results Abnormal [facility] Lymphocytes (Bld) [#/Vol] 1.5 10*3/uL 1.0 - 4.3 10*3/uL [facility] Lymphocytes/100 WBC (Bld) 13.6 % Low 15.0 - 45.0 % [facility] MCH (RBC) [Entitic mass] 30.9 pg 26. 0 - 34.0 pg [facility] MCHC (RBC) [Mass/Vol] 35.1 % 30.5 - 36.0 % [facility] MCV (RBC) [Entitic vol] 88.0 fL 77.0 - 99.0 fL [facility] Monocytes (Bld) [#/Vol] 1.0 10*3/uL High 0.0 - 0.9 10*3/uL [facility] Monocytes/100 WBC (Bld) 8.7 % 5.0 - 13.0 % [facility] Neutrophils (Bld) [#/Vol] 8.7 10*3/uL High 1.8 - 7.5 10*3/uL [facility] Neutrophils/100 WBC (Bld) 77.1 % 38.0 - 82.0 % [facility] Nucleated RBC/100 WBC (Bld) [Ratio] 0.0 % [facility] Platelet mean volume (Bld) [Entitic vol] 8.8 fL Low 9.0 - 12.7 fL [facility] Platelets (Bld) [#/Vol] 253 10*3/uL 140 - 440 10*3/uL [facility] RBC (Bld) [#/Vol] 5.51 10*6/uL 4.40 - 5.9 0 10*6/uL [facility] WBC (Bld) [#/Vol] 11.2 10*3/uL High 3.6 - 10.7 10*3/uL [facility] CBC WITH AUTO DIFFERENTIALon 10-26-2023 Basophils (Bld) [#/Vol] 0.0 10*3/uL Normal 0.0-0.2 [facility] Comment on above: Performed By: #### L [id number] #### [employer] Sorter: PARTH TADEO ([id number]) [facility] ([facility]) [address] Basophils/100 WBC (Bld) 0.3 % Normal 0.0-2.0 [facility] Comment on above: Performed By: #### L [id number] #### [employer] Buncher [employer] Sorter: PARTH TADEO ([id number]) [facility] [address] [place] [address] [place] Eosinophils (Bld) [#/Vol] 0.0 10*3/uL Normal 0.0-0.5 [facility] Comment on above: Performed By: #### L [id number] #### [employer] Sorter: PARTH TADEO ([id number]) [facility] ([facility]) [address] [place] [address] [place] Eosinophils/100 WBC (Bld) 0.0 % Normal 0.0-6.0 [facility] Comment on above: Performed By: #### L [id number] #### [employer] Sorter: PARTH [id number]) [facility] ([facility]) [address] Erythrocyte distribution width (RBC) [Ratio] 12.3 % Normal 11.5-15.0 [facility] Comment on above: Performed By: #### L [id number] #### Qu[employer] Buncher [employer] Sorter: PARTH TADEO ([id number]) [facility] [address] Hematocrit (Bld) [Volume fraction] 48.5 % Normal 40.0-52.0 [facility] Comment on above: Performed By: #### L [id number] #### [employer] Buncher [employer] Sorter: PARTH TADEO ([id number]) [facility] ([facility]) [address] [place] [address] Hemoglobin (Bld) [Mass/Vol] 17.0 g/dL Normal 13.0-18.0 [facility] Comment on above: Performed By: #### L [id number] #### [employer] Sorter: PARTH TADEO ([id number]) [facility] ([facility]) [address] IMMATURE GRANS % 0.3 % Normal 0.0-2.0 [facility] Comment on above: Performed By: #### L [id number] #### Quill Buncher And Sorter: PARTH TADEO ([id number]) [facility] ([facility]) [address] IMMATURE GRANS ABSOLUTE 0.0 10*3/uL Normal <0.1 [facility] Comment on above: Performed By: #### L [id number] #### [employer] Buncher [employer] Sorter: PARTH TADEO ([id number]) [facility] ([facility]) [address] Lymphocytes (Bld) [#/Vol] 1.5 10*3/uL Normal 1.0-4.3 [facility] Comment on above: Performed By: #### L [id number] #### Qu[employer] Buncher [employer] Sorter: PARTH TADEO ([id number]) [facility] ([facility] [address] Lymphocytes/100 WBC (Bld) 13.6 % Low 15.0-45.0 [facility] Comment on above: Performed By: #### L [id number] #### [employer] Buncher [employer] Sorter: PARTH TAEDO ([id number]) [facility] ([facility]) [address] MCH (RBC) [Entitic mass] 30.9 pg Normal 26.0-34.0 [facility] Comment on above: Performed By: #### L [id number] #### [employer] Buncher [employer] Sorter: PARTH TADEO ([id number]) [facility] ([facility]) [address] MCHC 35.1 % Normal 30.5-36.0 [facility] Comment on above: Performed By: #### L [id number] #### [employer] B[employer] Sorter: PARTH TADEO ([id number]) [facility] [address] MCV (RBC) [Entitic vol] 88.0 fL Normal 77.0-99.0 [facility] Comment on above: Performed By: #### L [id number] #### [employer] B[employer] Sorter: PARTH TADEO ([id number]) [facility] ([facility]) [address] [place] [address] [place] Monocytes (Bld) [#/Vol] 1.0 10*3/uL High 0.0-0.9 [facility] Comment on above: Performed By: #### L [id number] #### [employer] Sorter: PARTH TADEO ([id number]) [facility] ([facility]) [address] Monocytes/100 WBC (Bld) 8.7 % Normal 5.0-13.0 [facility] Comment on above: Performed By: #### L [id number] #### [employer] Sorter: PARTH TADEO ([id number]) [facility] ([facility]) [address] NEUTROPHILS ABSOLUTE 8.7 10*3/uL High 1.8-7.5 [facility] Comment on above: Performed By: #### L [id number] #### [employer] Sorter: PARTH TADEO ([id number]) [facility] ([facility]) [address] Neutrophils/100 WBC (Bld) 77.1 % Normal 38.0-82.0 [facility] Comment on above: Performed By: #### L [id number] #### [employer] B[employer] Sorter: PARTH TADEO ([id number]) [facility] ([facility]) [address] NRBC 0.0 /100 WBCs Normal 0.0-2.0 [facility] Comment on above: Performed By: #### L [id number] #### Qu[employer] Buncher [employer] Sorter: PARTH TADEO ([id number]) [facility] ([facility]) [address] [place] [address] [place] Platelet mean volume (Bld) [Entitic vol] 8.8 fL Low 9.0-12.7 [facility] Comment on above: Performed By: #### L [id number] #### [employer] Buncher And Sorter: PARTH TADEO ([id number]) [facility] [address] [place] [address] [place] Platelets (Bld) [#/Vol] 253 10*3/uL Normal 140-440 [facility] Comment on above: Performed By: #### L [id number] #### Qu[employer] Buncher [employer] Sorter: PARTH TADEO ([id number]) [facility] ([facility]) [address] [place] [address] [place] RBC (Bld) [#/Vol] 5.51 10*6/uL Normal 4.40-5.90 [facility] Comment on above: Performed By: #### L [id number] #### [employer]uncher [employer] Sorter: PARTH TADEO ([id number]) [facility] ([facility]) [address] WBC (Bld) [#/Vol] 11.2 10*3/uL High 3.6-10.7 [facility] Comment on above: Performed By: #### L [id number] #### [employer] Sorter: PARTH TADEO ([id number]) [facility] [address] Consulton 10-26-2023 Consult Addiction Medicine Patient: Mayito Forbes Admit Date: 10/25/2023 Primary Care Physician: No primary care provider on file. History of Present Illness The patient is a 38-year-old male presenting to [facility] for complaints of vomiting, diarrhea, generalized abdominal pain. Initially the patient stated that he was trying to stop marijuana but denied use of any other illicit drugs at the time of admission. There is a history of opiate dependence with history of opiate overdoses. When I met with the patient he admitted to me that he was also using fentanyl on a regular basis prior to coming in the hospital. There is a positive history loss of control, increased tolerance, continued use despite adverse consequences, inability to abstain successfully on his own. Withdrawal positive for anxiety, sweats, tremors, nausea, chills,, joint and muscle pain. Of note this patient's drug screen was positive for THC and fentanyl. In reference to previous treatment, he states he has been through several rehabs. More recently he states he has been involved in [email or web address] but obviously has been unable to stay clean. He intends to return to [facility]. Social History Socioeconomic History Marital status: Single Spouse name: Not on file Number of children: Not on file Years of education: Not on file Highest education level: Not on file Occupational History Not on file Tobacco Use Smoking status: Every Day Packs/day: 1 Types: Cigarettes Smokeless tobacco: Not on file Vaping Use Vaping Use: Never used Substance and Sexual Activity Alcohol use: Not Currently Drug use: Yes Types: Methamphetamines Sexual activity: Not on file Other Topics Concern Not on file Social History Narrative Not on file Social Determinants of Health Financial Resource Strain: Low Risk (10/25/2023) Overall Financial Resource Strain (CARDIA) Difficulty of Paying Living Expenses: Not hard at all Food Insecurity: No Food Insecurity (10/25/2023) Hunger Vital Sign Worried About Running Out of Food in the Last Year: Never true Ran Out of Food in the Last Year: Never true Transportation Needs: No Transportation Needs (10/25/2023) PRAPARE - Transportation Lack of Transportation (Medical): No Lack of Transportation (Non-Medical): No Physical Activity: Inactive (10/25/2023) Exercise Vital Sign Days of Exercise per Week: 0 days Minutes of Exercise per Session: 0 min Stress: No Stress Concern Present (10/25/2023) [place] [employer] - Occupational Stress Questionnaire Feeling of Stress : Not at all Social Connections: Moderately Isolated (10/25/2023) Social Connection and Isolation Panel [NHANES] Frequency of Communication with Friends and Family: Three times a week Frequency of Social Gatherings with Friends and Family: Three times a week Attends Druze Services: Never Active Member of Clubs or Organizations: No Attends Club or Organization Meetings: Never Marital Status: Living with partner Intimate Partner Violence: Not At Risk (10/25/2023) Humiliation, Afraid, Rape, and Kick questionnaire Fear of Current or Ex-Partner: No Emotionally Abused: No Physically Abused: No Sexually Abused: No Housing Stability: Low Risk (10/25/2023) Housing Stability Vital Sign Unable to Pay for Housing in the Last Year: No Number of Places Lived in the Last Year: 1 Unstable Housing in the Last Year: No History reviewed. No pertinent past medical history. History reviewed. No pertinent surgical history. No family history on file. Labs Recent Results (from the past 48 hour(s)) Comprehensive metabolic panel Collection Time: 10/25/23 9:39 AM Result Value Ref Range SODIUM 143 135 - 145 mmol/L POTASSIUM 3.4 (L) 3.5 - 5.1 mmol/L CHLORIDE 99 98 - 107 mmol/L CARBON DIOXIDE 22 22 - 30 mmol/L ANION GAP 23 (H) 3 - 13 mmol/L UREA NITROGEN 19 9 - 20 mg/dL CREATININE 1.07 0.66 - 1.25 mg/dL GLUCOSE 176 (H) 70 - 100 mg/dL CALCIUM 11.0 (H) 8.4 - 10.4 mg/dL AST (SGOT) 31 15 - 46 U/L ALT 52 (H) 0 - 49 U/L ALKALINE PHOSPHATASE 117 38 - 126 U/L ALBUMIN 5.3 (H) 3.5 - 5.0 g/dL BILIRUBIN, TOTAL 1.1 0.2 - 1.3 mg/dL TOTAL PROTEIN 9.5 (H) 6.3 - 8.2 g/dL eGFR >90.0 >60.0 mL/min/1.73m*2 Lipase Collection Time: 10/25/23 9:39 AM Result Value Ref Range LIPASE 43 23 - 300 U/L Lactic acid with reflex Collection Time: 10/25/23 9:39 AM Result Value Ref Range LACTIC ACID 2.6 (H) 0.7 - 2.0 mmol/L CBC Collection Time: 10/25/23 9:39 AM Result Value Ref Range Auto WBC 10.9 (H) 3.6 - 10.7 10*3/uL RBC 6.30 (H) 4.40 - 5.90 10*6/uL Hemoglobin 19.5 (H) 13.0 - 18.0 g/dL Hematocrit 52.8 (H) 40.0 - 52.0 % MCV 83.8 77.0 - 99.0 fL MCH 31.0 26.0 - 34.0 pg MCHC 36.9 (H) 30.5 - 36.0 % RDW 11.8 11.5 - 15.0 % Platelets 287 140 - 440 10*3/uL MPV 8.8 (L) 9.0 - 12.7 fL Hemoglobin A1c Collection Time: 10/25/23 9:39 AM Result Value Ref Range HEMOGLOBIN A1C 5 (more content not included)... Normal [facility] ECG 12-LEADon 10-26-2023 ECG 12-LEAD IMPRESSION: Sinus tachycardia Borderline low voltage, extremity leads Electronically Signed On 10-26-2023 07:44:56 EDT by Mary Gray [facility] No Panel InformationOrdered By: Mary Gray on 10-26-2023 P [place] 76 degrees [facility] Work Phone: [place] Interval 115 ms [facility] Work Phone: QRS [place] 75 degrees [employer] Work Phone: QRSD Interval 75 ms [facility] h Work Phone: QT Interval 0 ms [facility] [employer] Work Phone: QTC Interval 0 ms [facility] [employer] Work Phone: T Wave [place] 74 degrees [facility] [employer] Work Phone: [facility] [employer] Work Phone: No Panel Informationon 10-25 Sinus tachycardia Borderline low voltage, extremity leads Electronically Signed On 10-26-2023 07:44:56 EDT by Mary Gray CV Mary Valdivia MD - 10/26/2023 IMPRESSION: Sinus tachycardia Borderline low voltage, extremity leads Electronically Signed On 10-26-2023 07:44:56 EDT by Mary Gray [facility] Vital signsOrdered By: Irvin Gray on 10-26-2023 Heart rate 109 /min bpm [facility] [employer] Work Phone: BASIC METABOLIC PANELon 09-28 Anion gap [Moles/Vol] 17 mmol/L High 3-13 [facility] Comment on above: Performed By: #### L [id number], LAB15 ####Quill Buncher And Sorter: PARTH TADEO ([id number])[facility] ([facility])[address] Calcium [Mass/Vol] 9.2 mg/dL Normal 8.4-10.4 [facility] Comment on above: Performed By: #### L [id number], LAB15 ####Quill Buncher And Sorter: PARTH TADEO ([id number])[facility] ([facility])[address] [place] [address] [place] Chloride [Moles/Vol] 101 mmol/L Normal 98-107 [facility] Comment on above: Performed By: #### L [id number], LAB15 ####Quill Buncher And Sorter: PARTH TADEO ([id number])[facility] ([facility])[address] [place] [address] [place] CO2 [Moles/Vol] 25 mmol/L Normal 22-30 [facility] Comment on above: Performed By: #### L [id number], LAB15 ####Quill Buncher And Sorter: PARTH TADEO ([id number])[facility]ITAL[facility] BARBC[facility]OL ([facility])[address] Creatinine [Mass/Vol] 1.20 mg/dL Normal 0.66-1.25 [facility] Comment on above: Performed By: #### L [id number], LAB15 ####Quill Buncher And Sorter: PARTH TADEO ([id number])[facility]ITAL[facility] BAR[facility] ([facility])[address] GLOMERULAR FILTRATION RATE ML/MIN/1.73 SQ M.PREDICTED 79.4 mL/min/1.73m*2 Normal >60.0 [facility] Comment on above: Result Comment: Calc ulation based on the Chronic Kidney Disease Epidemiology Collaboration (CKD-EPI) equation refit without adjustment for race Performed By: #### L [id number], LAB15 ####Quill Buncher And Sorter: PARTH TADEO ([phone])[facility]ITAL[facility] BARBGINNYN ([facility])[address] Glucose [Mass/Vol] 138 mg/dL High 70-100 [facility] Comment on above: Performed By: #### L [id number], LAB15 ####Quill Buncher And Sorter: PARTH TADEO ([id number])[facility]ITAL[facility] BURNHAM ([facility])[address] Potassium [Moles/Vol] 3.4 mmol/L Low 3.5-5.1 [facility] Comment on above: Performed By: #### L [id number], LAB15 ####Quill Buncher And Sorter: PARTH TADEO ([id number])[facility]ITALA BARBNEW [facility]EX[facility]N ([facility])[address] [place] [address] [place] Sodium [Moles/Vol] 143 mmol/L Normal 135-145 [facility] Comment on above: Performed By: #### L [id number], LAB15 ####Quill Buncher And Sorter: PARTH TADEO ([id number])[facility]ITAL[facility] EFREN ([facility])[address] Urea nitrogen [Mass/Vol] 19 mg/dL Normal 9-20 [facility] Comment on above: Performed By: #### L [id number], LAB15 ####Quill Buncher And Sorter: PARTH TADEO ([id number])[facility]ITAL[facility] SCHWARTZ ([facility])[address] BETA HYDROXYBUTYRATEon 10-24 BETA HYDROXYBUTYRATE 13.90 mg/dL High 0.20-2.81 [facility] Comment on above: Performed By: #### L [id number], LAB15 ####Quill Buncher And Sorter: PARTH TADEO ([id number])[facility]ITAL[facility] SCHWARTZ ([facility])[address] Basic metabolic 1998 panelon 10-25-2023 Anion gap [Moles/Vol] 17 mmol/L High 3 - 13 mmol/L [facility] Calcium [Mass/Vol] 9.2 mg/dL 8.4 - 10. 4 mg/dL [facility] Chloride [Moles/Vol] 101 mmol/L 98 - 10 7 mmol/L [facility] CO2 [Moles/Vol] 25 mmol/L 22 - 30 mmol/L [facility] Creatinine [Mass/Vol] 1.20 mg/dL 0.66 - 1.25 mg/dL [facility] GFR/1.73 sq M.predicted MDRD (S/P/Bld) [Vol rate/Area] 79.4 mL/min/{1.73_m2} - [facility] Comment on above: Calculation based on the Chronic Kidney Disease Epidemiology Collaboration (CKD-EPI) equation refit without adjustment for race Glucose [Mass/Vol] 138 mg/dL High 70 - 100 mg/dL [facility] Interpretation and review of laboratory results Abnormal [facility] Potassium [Moles/Vol] 3.4 mmol/L Low 3.5 - 5.1 mmol/L [facility] Sodium [Moles/Vol] 143 mmol/L 135 - 145 mmol/L [facility] Urea nitrogen [Mass/Vol] 19 mg/dL 9 - 20 mg/dL [facility] CBC (HEMOGRAM)on 05-28-2024 Erythrocyte distribution width (RBC) [Ratio] 11.8 % Normal 11.5-15.0 [facility] Comment on above: Performed By: #### L [id number] #### Quill Buncher [employer] Sorter: PARTH TADEO ([id number]) [facility] ([facility]) [address] Hematocrit (Bld) [Volume fraction] 52.8 % High 40.0-52.0 [facility] Comment on above: Performed By: #### L [id number] #### Quill Buncher And Sorter: PARTH TADEO ([id number]) [facility] ([facility] [address] Hemoglobin (Bld) [Mass/Vol] 19.5 g/dL High 13.0-18.0 [facility] Comment on above: Performed By: #### L [id number] #### Quill Buncher [employer] Sorter: PARTH TADEO ([id number]) [facility] ([facility] [address] MCH (RBC) [Entitic mass] 31.0 pg Normal 26.0-34.0 [facility] Comment on above: Performed By: #### L [id number] #### Quill Buncher [employer] Sorter: PARTH TADEO ([id number]) [facility] [address] MCHC 36.9 % High 30.5-36.0 [facility] Comment on above: Performed By: #### L [id number] #### Quill Buncher And Sorter: PARTH TADEO ([id number]) [facility] ([facility]) [address] MCV (RBC) [Entitic vol] 83.8 fL Normal 77.0-99.0 S [facility] Comment on above: Performed By: #### L [id number] #### Quill Buncher And Sorter: PARTH TADEO ([id number]) [facility] [address] Platelet mean volume (Bld) [Entitic vol] 8.8 fL Low 9.0-12.7 [facility] Comment on above: Performed By: #### L [id number] #### Quill Buncher [employer] Sorter: PARTH COMBSCER ([id number]) [facility] ([facility]) [address] Platelets (Bld) [#/Vol] 287 10*3/uL Normal 140-440 [facility] Comment on above: Performed By: #### L [id number] #### Quill Buncher [employer] Sorter: PARTH TADEO ([id number]) [facility] ([facility]) [address] RBC (Bld) [#/Vol] 6.30 10*6/uL High 4.40-5.90 [facility] Comment on above: Performed By: #### L [id number] #### Quill Buncher [employer] Sorter: PARTH TADEO ([id number]) [facility] ([facility]) [address] WBC (Bld) [#/Vol] 10.9 10*3/uL High 3.6-10.7 [facility] Comment on above: Performed By: #### L [id number] #### Quill Buncher [employer] Sorter: PARTH ROWLEYGAVIN ([id number]) [facility] ([facility] [address] CBC panel Auto (Bld)Ordered By: Olena Gerber on 10-25-2023 Erythrocyte distribution width (RBC) [Ratio] 11.8 % 11.5 - 15.0 % [facility] Hematocrit (Bld) [Volume fraction] 52.8 % High 40.0 - 52.0 % [facility] Hemoglobin (Bld) [Mass/Vol] 19.5 g/dL High 13.0 - 18.0 g/dL [facility] Interpretation and review of laboratory results Abnormal [facility] MCH (RBC) [Entitic mass] 31.0 pg 26. 0 - 34.0 pg [facility] MCHC (RBC) [Mass/Vol] 36.9 % High 30.5 - 36.0 % [facility] MCV (RBC) [Entitic vol] 83.8 fL 77.0 - 99.0 fL [facility] Platelet mean volume (Bld) [Entitic vol] 8.8 fL Low 9.0 - 12.7 fL [facility] Platelets (Bld) [#/Vol] 287 10*3/uL 140 - 440 10*3/uL [facility] RBC (Bld) [#/Vol] 6.30 10*6/uL High 4.40 - 5.9 0 10*6/uL [facility] WBC (Bld) [#/Vol] 10.9 10*3/uL High 3.6 - 10.7 10*3/uL [facility] COMPLETE URINALYSISon 2023 BACTERIA (#/HPF) IN URINE Few Abnormal Negative [facility] Comment on above: Performed By: #### L [id number] ####Quill Buncher [employer] Sorter: PARTH TADEO ([id number])[facility] ([facility])[address] [place] [address] BILIRUBIN, TOTAL PRESENCE IN URINE Negative Normal Negative [facility] Comment on above: Performed By: #### L [id number] ####Quill Buncher And Sorter: PARTH TADEO ([id number])[facility] ([facility])[address] [place] [address] Clarity (U) Clear Normal Clear [facility] Comment on above: Performed By: #### L [id number] ####Quill Buncher And Sorter: PARTH TADEO ([id number])[facility] ([facility])[address] [place] [address] Color (U) Yellow Normal Lt. Yellow [facility] Comment on above: Performed By: #### L [id number] ####Quill Buncher And Sorter: PARTH TADEO ([id number])[facility] ([facility])[address] [place] [address] GLUCOSE (MG/DL) IN URINE Normal Normal Nor mal (<70) [facility] Comment on above: Performed By: #### L [id number] ####Quill Buncher And Sorter: PARTH TADEO ([id number])[facility]ITALA BARBNEW MEX[facility] L[facility]ASN ([facility])[address] HEMOGLOBIN PRESENCE IN URINE Negative Normal Negative [facility] Comment on above: Performed By: #### L [id number] ####Quill Buncher And Sorter: PARTH TADEO ([phone])[facility] ([facility])[address] Ketones Ql (U) 100 mg/dL Abnormal Negative [facility] Comment on above: Performed By: #### L [id number] ####Quill Buncher And Sorter: PARTH TADEO ([phone])[facility] ([facility])[address] LEUKOCYTE ESTERASE PRESENCE IN URINE BY TEST STRIP Negative Normal Negative [facility] Comment on above: Performed By: #### L [id number] ####Quill Buncher And Sorter: PARTH CARLYLE ([phone])[facility] ([facility])[address] [place] [address] [place] MUCUS (#/LPF) IN URINE SEDIMENT Moderate Abnormal Negative [facility] Comment on above: Performed By: #### L [id number] ####Quill Buncher And Sorter: PARTH TADEO ([id number])[facility] ([facility])[address] NITRITE PRESENCE IN URINE Negative Normal Negative [facility] Comment on above: Performed By: #### L [id number] ####Quill Buncher And Sorter: PARTH TADEO ([id number])[facility] ([facility])[address] NON-SQUAMOUS EPITHELIAL (#/HPF) IN URINE 0-2 Abnormal Negative [facility] Comment on above: Performed By: #### L [id number] ####Quill Buncher And Sorter: PARTH BARROWJUAN MANUEL ([id number])[facility] ([facility])[address] pH (U) 6.5 [pH] Normal 5.0-8.0 [facility] Comment on above: Performed By: #### L [id number] ####Quill Buncher And Sorter: PARTH TADEO ([id number])[facility] [place] ([facility])[address] Protein (U) [Mass/Vol] 50 mg/dL Abnormal Negative Yo [facility] Comment on above: Performed By: #### L [id number] ####Quill Buncher And Sorter: PARTH TADEO ([id number])[facility]A [facility]BNEW [facility]EX[facility]N ([facility])[address] [place] [address] [place] RBC (#/HPF) IN URINE SEDIMENT 0-2 Normal 0-2 [facility] Comment on above: Performed By: #### L [id number] ####Quill Buncher And Sorter: PARTH TADEO ([phone])[facility]ITALA [facility] ([facility])[address] [place] [address] Specific gravity (U) [Rel density] >1.030 High 1.005-1.030 [facility] Comment on above: Performed By: #### L [id number] ####Quill Buncher And Sorter: PARTH TADEO ([id number])[facility] ([facility])[address] SQUAMOUS EPITHELIAL CELLS (#/HPF) IN URINE SEDIMENT 0-2 Normal 3-5 [facility] Comment on above: Performed By: #### L [id number] ####Quill Buncher And Sorter: PARTH TADEO ([id number])[facility]BNEW [facility] ([facility])[address] [place] [address] [place] UROBILINOGEN (MG/DL) IN URINE Normal Normal Normal (0-1) [facility] Comment on above: Performed By: #### L [id number] ####Quill Buncher And Sorter: PARTH TADEO ([id number])[facility] ([facility])[address] WBC (LEUKOCYTE) (#/HPF) IN URINE SEDIMENT 0-2 Normal 0-5 [facility] Comment on above: Performed By: #### L [id number] ####Quill Buncher And Sorter: PARTH TADEO ([id number])[facility] ([facility])[address] COMPREHENSIVE METABOLIC PANE Heriberto 10-25-2023 Albumin [Mass/Vol] 5.3 g/dL High 3.5-5.0 [facility] Comment on above: Performed By: #### L AB17, LAB99 ####Quill Buncher And Sorter: PARTH TADEO ([phone])[facility] [place] ([facility])[address] ALP [Catalytic activity/Vol] 117 U/L Normal 38-126 [facility] Comment on above: Performed By: #### L AB17, LAB99 ####Quill Buncher And Sorter: PARTH TDAEO ([id number])[facility] [place] ([facility])[address] ALT [Catalytic activity/Vol] 52 U/L High 0-49 [facility] Comment on above: Performed By: #### L AB17, LAB99 ####Quill Buncher And Sorter: PARTH TADEO ([id number])[facility] [place] ([facility])[address] Anion gap [Moles/Vol] 23 mmol/L High 3-13 [facility] Comment on above: Performed By: #### L AB17, LAB99 ####Quill Buncher And Sorter: PARTH TADEO ([id number])[facility] [place] ([facility])[address] [place] [address] [place] AST [Catalytic activity/Vol] 31 U/L Normal 15-46 [facility] Comment on above: Performed By: #### L AB17, LAB99 ####Quill Buncher And Sorter: PARTH TADEO ([id number])[facility] [place] ([facility])[address] [place] [address] [place] Bilirubin [Mass/Vol] 1.1 mg/dL Normal 0.2-1.3 [facility] Comment on above: Performed By: #### L AB17, LAB99 ####Quill Buncher And Sorter: PARTH TADEO ([id number])[facility]PITALPadmini RIOSN ([facility])[address] Calcium [Mass/Vol] 11.0 mg/dL High 8.4-10.4 [facility] Comment on above: Performed By: #### L AB17, LAB99 ####Quill Buncher And Sorter: PARTH TADEO ([id number])[facility] HOSPITALPamdini THOMASNEW MEX[facility]N ([facility])[address] [place] [address] [place] Chloride [Moles/Vol] 99 mmol/L Normal 98-107 [facility] Comment on above: Performed By: #### L AB17, LAB99 ####Quill Buncher And Sorter: PARTH TADEO ([id number])[facility]OSPITALPadmini [facility]ASNEW [facility]EX[facility] ([facility])[address] CO2 [Moles/Vol] 22 mmol/L Normal 22-30 [facility] Comment on above: Performed By: #### L AB17, LAB99 ####Quill Buncher And Sorter: PARTH TADEO ([id number])[facility]PITALPadmini [facility]ASNEW [facility]EX[facility] ([facility])[address] Creatinine [Mass/Vol] 1.07 mg/dL Normal 0.66-1.25 [facility] Comment on above: Performed By: #### L AB17, LAB99 ####Quill Buncher And Sorter: PARTH TADEO ([phone])[facility] ([facility])[address] GLOMERULAR FILTRATION RATE ML/MIN/1.73 SQ M.PREDICTED >90.0 Normal >60.0 [facility] Comment on above: Result Comment: Calc ulation based on the Chronic Kidney Disease Epidemiology Collaboration (CKD-EPI) equation refit without adjustment for race Performed By: #### L AB17, LAB99 ####Quill Buncher And Sorter: PARTH TADEO ([phone])[facility]PITALPadmini [facility]ASNEW [facility] ([facility])[address] Glucose [Mass/Vol] 176 mg/dL High 70-100 [facility] Comment on above: Performed By: #### L AB17, LAB99 ####Quill Buncher And Sorter: PARTH CARLYLE ([id number])[facility] [place] ([facility])[address] Potassium [Moles/Vol] 3.4 mmol/L Low 3.5-5.1 [facility] Comment on above: Performed By: #### L AB17, LAB99 ####Quill Buncher And Sorter: PARTH BARROWJUAN MANUEL ([id number])[facility] [place] ([facility])[address] Protein [Mass/Vol] 9.5 g/dL High 6.3-8.2 [facility] Comment on above: Performed By: #### L AB17, LAB99 ####Quill Buncher And Sorter: PARTH BARROWJUAN MANUEL ([id number])[facility] [place] ([facility])[address] Sodium [Moles/Vol] 143 mmol/L Normal 135-145 [facility] Comment on above: Performed By: #### L AB17, LAB99 ####Quill Buncher And Sorter: PARTH CARLYLE ([id number])[facility] [place] ([facility])[address] Urea nitrogen [Mass/Vol] 19 mg/dL Normal 9-20 [facility] Comment on above: Performed By: #### L AB17, LAB99 ####Quill Buncher And Sorter: PARTH BARROWJUAN MANUEL ([id number])[facility] [place] ([facility])[address] [place] [address] CT ABDOMEN PELVIS W CONTRAST on 10-25-2023 CT ABDOMEN PELVIS W CONTRAST Patient Name: MAYITO FORBES : 1985 Exam Date/Time: 10/25/2023 11:08 Procedure: CT ABDOMEN PELVIS W CONTRAST Ordering Provider: TORRES DANIEL Reason For Exam: Abdominal pain, acute, nonlocalized EXAMINATION: CT of the abdomen and pelvis with IV contrast. EXAM DATE AND TIME: 10/25/2023 11:08 AM EDT INDICATION: Abdominal pain, acute, nonlocalized ADDITIONAL INFORMATION: 38-year-old male with acute abdominal pain presents for evaluation COMPARISON: CT abdomen pelvis dated 06/06/2023 LIMITATIONS: Evaluation of the hollow viscera is limited due to the lack of oral contrast. TECHNIQUE: Contiguous multiplanar 3 mm images were obtained from the levels of the lung bases through the pelvis during dynamic infusion of 75 mL of intravenous Isovue 370. Images were reformatted in coronal and sagittal projections using the raw CT data and were interpreted in conjunction with the axial images to render the findings listed below. Before infusion of intravenous contrast, radiology personnel investigated the possibility of an allergic history and any history of reaction to iodinated contrast material. Dose reduction was employed with automated exposure control. FINDINGS: Included images of the lower thorax: No focal lung consolidation or pleural effusion. Hepatobiliary: Unremarkable liver without biliary dilation evident. Gallbladder appears normal. Spleen: Unremarkable. Pancreas: Unremarkable. Adrenal glands: Unremarkable. Kidneys, ureters and bladder: There is a simple appearing right interpolar renal cystic structure. No hydronephrosis or nephrolithiasis. The urinary bladder is unremarkable in appearance. Abdominal and pelvic vasculature: Unremarkable. Gastrointestinal: No evidence of obstruction. The appendix is within normal limits. Peritoneum, retroperitoneum and mesentery: No free fluid or free air. Lymph nodes: No abdominal or pelvic lymphadenopathy is evident. Solid pelvic viscera: Unremarkable. Visualized musculoskeletal structures: No acute fracture or destructive osseous lesion is identified. IMPRESSION: No acute process. Report Dictated on Electronically Signed By: Alonzo Kimbrough MD Electronically Signed Date/Time: 10/25/2023 11:27 AM EDT Pt is unwilling to answer questions in CT. He is holding a vomit bag with his arms across his stomach. He nods yes when asked if he has any N/V/D. Chart states these sx have been ongoing for 2 days. Normal [facility] CT Abdomen and Pelvis W cont rast Tyrell 10-25-2023 No acute process. Report Dictated on Electronically Signed By: Alonzo Kimbrough MD Electronically Signed Date/Time: 10/25/2023 11:27 AM T [facility] Patient Name: MAYITO FORBES : 1985 Exam Date/Time: 10/25/2023 11:08 Procedure: CT ABDOMEN PELVIS W CONTRAST Ordering Provider: TORRES DANIEL Reason For Exam: Abdominal pain, acute, nonlocalized EXAMINATION: CT of the abdomen and pelvis with IV contrast. EXAM DATE & TIME: 10/25/2023 11:08 AM EDT INDICATION: Abdominal pain, acute, nonlocalized ADDITIONAL INFORMATION: 38-year-old male with acute abdominal pain presents for evaluation COMPARISON: CT abdomen pelvis dated 06/06/2023 LIMITATIONS: Evaluation of the hollow viscera is limited due to the lack of oral contrast. TECHNIQUE: Contiguous multiplanar 3 mm images were obtained from the levels of the lung bases through the pelvis during dynamic infusion of 75 mL of intravenous Isovue 370. Images were reformatted in coronal and sagittal projections using the raw CT data and were interpreted in conjunction with the axial images to render the findings listed below. Before infusion of intravenous contrast, radiology personnel investigated the possibility of an allergic history and any history of reaction to iodinated contrast material. Dose reduction was employed with automated exposure control. FINDINGS: Included images of the lower thorax: No focal lung consolidation or pleural effusion. Hepatobiliary: Unremarkable liver without biliary dilation evident. Gallbladder appears normal. Spleen: Unremarkable. Pancreas: Unremarkable. Adrenal glands: Unremarkable. Kidneys, ureters and bladder: There is a simple appearing right interpolar renal cystic structure. No hydronephrosis or nephrolithiasis. The urinary bladder is unremarkable in appearance. Abdominal and pelvic vasculature: Unremarkable. Gastrointestinal: No evidence of obstruction. The appendix is within normal limits. Peritoneum, retroperitoneum and mesentery: No free fluid or free air. Lymph nodes: No abdominal or pelvic lymphadenopathy is evident. Solid pelvic viscera: Unremarkable. Visualized musculoskeletal structures: No acute fracture or destructive osseous lesion is identified. [facility] Alonzo Kimbrough MD - 10/25/2023 Patient Name: MAYITO FORBES : 1985 Exam Date/Time: 10/25/2023 11:08 Procedure: CT ABDOMEN PELVIS W CONTRAST Ordering Provider: MELISSA, , ÁNGELA Reason For Exam: Abdominal pain, acute, nonlocalized EXAMINATION: CT of the abdomen and pelvis with IV contrast. EXAM DATE & TIME: 10/25/2023 11:08 AM EDT INDICATION: Abdominal pain, acute, nonlocalized ADDITIONAL INFORMATION: 38-year-old male with acute abdominal pain presents for evaluation COMPARISON: CT abdomen pelvis dated 06/06/2023 LIMITATIONS: Evaluation of the hollow viscera is limited due to the lack of oral contrast. TECHNIQUE: Contiguous multiplanar 3 mm images were obtained from the levels of the lung bases through the pelvis during dynamic infusion of 75 mL of intravenous Isovue 370. Images were reformatted in coronal and sagittal projections using the raw CT data and were interpreted in conjunction with the axial images to render the findings listed below. Before infusion of intravenous contrast, radiology personnel investigated the possibility of an allergic history and any history of reaction to iodinated contrast material. Dose reduction was employed with automated exposure control. FINDINGS: Included images of the lower thorax: No focal lung consolidation or pleural effusion. Hepatobiliary: Unremarkable liver without biliary dilation evident. Gallbladder appears normal. Spleen: Unremarkable. Pancreas: Unremarkable. Adrenal glands: Unremarkable. Kidneys, ureters and bladder: There is a simple appearing right interpolar renal cystic structure. No hydronephrosis or nephrolithiasis. The urinary bladder is unremarkable in appearance. Abdominal and pelvic vasculature: Unremarkable. Gastrointestinal: No evidence of obstruction. The appendix is within normal limits. Peritoneum, retroperitoneum and mesentery: No free fluid or free air. Lymph nodes: No abdominal or pelvic lymphadenopathy is evident. Solid pelvic viscera: Unremarkable. Visualized musculoskeletal structures: No acute fracture or destructive osseous lesion is identified. IMPRESSION: No acute process. Report Dictated on Electronically Signed By: Alonzo Kimbrough MD Electronically Signed Date/Time: 10/25/2023 11:27 AM EDT [facility] Study observation (narrative) Jovana alth CT Abdomen and Pelvis W cont rast IVOrdered By: Alonzo Kimbrough on 10-25-2023 [employer] Work Phone: Comprehensive metabolic 1998 panelon 10-25-2023 Albumin [Mass/Vol] 5.3 g/dL High 3.5 - 5.0 g/dL [facility] [employer] ALP [Catalytic activity/Vol] 117 U/L 38 - 126 U/L [facility] ALT [Catalytic activity/Vol] 52 U/L High 0 - 49 U/L [facility] Anion gap [Moles/Vol] 23 mmol/L High 3 - 13 mmol/L [facility] AST [Catalytic activity/Vol] 31 U/L 15 - 46 U/L [facility] Bilirubin [Mass/Vol] 1.1 mg/dL 0.2 - 1 .3 mg/dL [facility] Calcium [Mass/Vol] 11.0 mg/dL High 8.4 - 10. 4 mg/dL [facility] Chloride [Moles/Vol] 99 mmol/L 98 - 10 7 mmol/L [facility] CO2 [Moles/Vol] 22 mmol/L 22 - 30 mmol/L [facility] Creatinine [Mass/Vol] 1.07 mg/dL 0.66 - 1.25 mg/dL [facility] GFR/1.73 sq M.predicted MDRD (S/P/Bld) [Vol rate/Area] - PINF [facility] Comment on above: Calculation based on the Chronic Kidney Disease Epidemiology Collaboration (CKD-EPI) equation refit without adjustment for race Glucose [Mass/Vol] 176 mg/dL High 70 - 100 mg/dL [facility] Potassium [Moles/Vol] 3.4 mmol/L Low 3.5 - 5.1 mmol/L [facility] Protein [Mass/Vol] 9.5 g/dL High 6.3 - 8.2 g/dL [facility] Sodium [Moles/Vol] 143 mmol/L 135 - 145 mmol/L [facility] Urea nitrogen [Mass/Vol] 19 mg/dL 9 - 20 mg/dL [facility] DRUGS OF ABUSEon 10-25-2023 AMPHETAMINE SCREEN Negative Normal [facility] Comment on above: Performed By: #### L AB20, LAB15, LAB46 #### [employer]: LILIA KNOX ([id number]) [facility] ([facility]) [address] [place] [address] BARBITURATES SCREEN Negative Normal [facility] Comment on above: Performed By: #### L AB20, LAB15, LAB46 #### [employer]: LILIA KNOX ([id number]) [facility] ([facility]) [address] [place] [address] BENZODIAZEPINE SCREEN Negative Normal [facility] Comment on above: Performed By: #### L AB20, LAB15, LAB46 #### [employer]: LILIA KNOX ([id number]) [facility] ([facility]) [address] [place] [address] COCAINE METAB. SCREEN Negative Normal [facility] Comment on above: Performed By: #### L AB20, LAB15, LAB46 #### [employer]: LILIA KNOX ([id number]) [facility] [address] [place] [address] METHADONE SCREEN Negative Normal [facility] Comment on above: Performed By: #### L AB20, LAB15, LAB46 #### [employer]: LILIA KNOX ([id number]) [facility] ([facility]) [address] [place] [address] OPIATES SCREEN Negative Normal [facility] Comment on above: Performed By: #### L AB20, LAB15, LAB46 #### [employer]: LILIA KNOX ([id number]) [facility] [address] [place] [address] OXYCODONE SCREEN Negative [facility] Comment on above: Performed By: #### L AB20, LAB15, LAB46 #### [employer]: LILIA KNOX ([id number]) [facility] ([facility]) [address] [place] [address] PHENCYCLIDINE SCREEN Negative Normal [facility] Comment on above: Result Comment: EZ Ding COMMENTS: The expected value for all of the drugs listed above is Negative. The following drugs or drug groups have been screened for by Immunoassay at the following thresholds: Amphetamine class (1000 ng/mL) Barbiturates (200 ng/mL) Benzodiazepines (200 ng/mL) Cocaine (300 ng/mL) Methadone (300 ng/mL) Opiates (300 ng/mL) Oxycodone (100 ng/mL) PCP (25 ng/mL) NOTE: These results are for medical treatment only. Analysis performed using non-forensic procedures. POSITIVE results are NOT confirmed by a more specific alternative method unless requested. If confirmation is needed, request confirmation under separate order. Performed By: #### L AB20, LAB15, LAB46 #### [employer]: LILIA KNOX ([id number]) [facility] ([address] ED Provider Noteon ED Provider Note EMERGENCY DEPARTMENT ENCOUNTER Pt Name: Mayito Forbes Birthdate 1985 Date of evaluation: 10/25/2023 ED Provider: Ángela Torres APRN - NOE This patient was seen in conjunction with Dr. Neil CHIEF COMPLAINT Chief Complaint Patient presents with ? Vomiting N/V/D x2 days HISTORY OF PRESENT ILLNESS (Location/Symptom, Timing/Onset, Context/Setting, Quality, Duration, Modifying Factors, Severity) Note limiting factors. I wore appropriate PPE for the entirety of this encounter. HPI Mayito Forbes is a 38 y.o. who presents to the emergency department with chief complaint of nausea vomiting and diarrhea for the last 2 days complaining of generalized abdominal pain. He states he has not been able to keep down anything since Tuesday evening. Denies similar sick contacts. He has been seen for this several times also seen in 2022 for an opiate overdose he denies that these could be withdrawal symptoms he states he does smoke marijuana but he needs to stop smoking marijuana because he is on parole, he states I warned them this would happen if I stopped. Nursing Notes were reviewed. Limitations to history: None Outside historians: None REVIEW OF SYSTEMS Review of Systems Constitutional: Negative for activity change, appetite change, chills and fever. HENT: Negative for congestion, nosebleeds, postnasal drip, sore throat and trouble swallowing. Eyes: Negative for pain and visual disturbance. Respiratory: Negative for cough and shortness of breath. Cardiovascular: Negative for chest pain. Gastrointestinal: Positive for abdominal pain, diarrhea, nausea and vomiting. Negative for abdominal distention, anal bleeding, blood in stool, constipation and rectal pain. Genitourinary: Negative for dysuria, flank pain, hematuria, penile discharge, scrotal swelling and testicular pain. Musculoskeletal: Negative for arthralgias, back pain and myalgias. Skin: Negative for rash and wound. Neurological: Negative for dizziness, syncope, weakness and light-headedness. Psychiatric/Behavioral: Negative for agitation and confusion. All other systems reviewed and are negative. Pertinent positives and negatives as per HPI. PAST MEDICAL HISTORY History reviewed. No pertinent past medical history. SURGICAL HISTORY History reviewed. No pertinent surgical history. CURRENT MEDICATIONS Previous Medications VENLAFAXINE XR (EFFEXOR XR) 225 MG 24 HR TABLET Take 225 mg by mouth daily (with breakfast). Do not crush, chew, or split. ALLERGIES Patient has no known allergies. FAMILY HISTORY No family history on file. SOCIAL HISTORY Social History Socioeconomic History ? Marital status: Single Tobacco Use ? Smoking status: Every Day Packs/day: 1 Types: Cigarettes Vaping Use ? Vaping Use: Never used Substance and Sexual Activity ? Alcohol use: Not Currently ? Drug use: Yes Types: Methamphetamines SCREENINGS Jolanta Coma Scale Best Eye Response: Spontaneous Best Verbal Response: Oriented Best Motor Response: Follows commands Clayton Coma Scale Score: 15 PHYSICAL EXAM ED Triage Vitals [10/25/23 0846] Temp Heart Rate Resp BP 37.2 ?C (99 ?F) (!) 121 (!) 30 (!) 143/103 SpO2 Temp Source Heart Rate Source Patient Position 99 % Temporal Monitor -- BP Location FiO2 (%) -- -- Physical Exam Vitals and nursing note reviewed. Constitutional: General: He is not in acute distress. Appearance: Normal appearance. He is normal weight. He is not ill-appearing or toxic-appearing. HENT: Head: Normocephalic and atraumatic. Right Ear: External ear normal. Left Ear: External ear normal. Mouth/Throat: Mouth: Mucous membranes are moist. Pharynx: Oropharynx is clear. Eyes: Extraocular Movements: Extraocular movements intact. Conjunctiva/sclera: Conjunctivae normal. Pupils: Pupils are equal, round, and reactive to light. Cardiovascular: Comments: Tachycardic rate, regular rhythm, normal S1-S2, no murmurs noted. Radial pulses 2+ and symmetric. Abdominal: Comments: The abdomen is soft, nondistended and nontender. There is no rebound tenderness or guarding. Bowel sounds are normal. Musculoskeletal: General: No swelling, tenderness, deformity or signs of injury. Normal range of motion. Cervical back: Normal range of motion and neck supple. No rigidity or tenderness. Lymphadenopathy: Cervical: No cervical adenopathy. Skin: General: Skin is warm and dry. Capillary Refill: Capillary refill takes less than 2 seconds. Coloration: Skin is not jaundiced or pale. Findings: No bruising or erythema. Neurological: General: No focal deficit present. Mental Status: He is alert and oriented to person, place, and time. Mental status is at baseline. Cranial Nerves: No cranial nerve deficit. Sensory: No sensory deficit. Motor: No weakness. Coordination: Coordination normal. Psychiatric: Mood and Affect: Mood normal. DIAGNOSTIC R (more content not included)... Normal [facility] ED Provider Note Emergency Department Encounter [facility] ED Patient: Mayito Forbes : 1985 Date of Evaluation: 10/25/2023 ED Supervising Physician: James Neil MD I personally evaluated Mayito Forbes and made/approved the management plan and take responsibility for the patient management. This will serve as my Supervisory note and shared attestation. I did perform a substantive portion of the visit including all aspects of the Medical Decision Making. I wore appropriate PPE for the entirety of this encounter. In brief, Mayito Forbse is a 38 y.o. that presents to the emergency department with chief complaint of nausea, vomiting, diarrhea with generalized abdominal discomfort. Endorses marijuana use. Focused exam: 38-year-old male. Afebrile. Normal work of breathing. Abdomen soft with reported generalized tenderness. No guarding or rebound tenderness. Brief ED course/MDM: Patient treated symptomatically. CT abdomen unremarkable. Patient admitted for further symptomatic treatment All diagnostic, treatment, and disposition decisions were made by myself in conjunction with the MARYELLEN. For all further details of the patient's emergency department visit, please see their documentation. (Comment: Please note this report has been produced using speech recognition software and may contain errors related to that system including errors in grammar, punctuation, and spelling, as well as words and phrases that may be inappropriate. If there are any questions or concerns please feel free to contact the dictating provider for clarification.) James Neil MD [employer] James Neil MD 10/26/23 1502 Normal [facility] FENTANYL, URINEon 10-25-2023 FENTANYL SCREEN, URINE Positive Normal Negative [facility] Comment on above: Result Comment: EZ R COMMENTS: Fentanyl has been screened for by Immunoassay at a 1 ng/ml threshold. POSITIVE results are not confirmed by a more specific alternative method unless requested. If confirmation is needed, request confirmation under separate order. NOTE: These results are for medical treatment only. Analysis performed using non-forensic procedures. Performed By: #### L [id number] ####[employer]: LILIA KNOX ([id number])[facility] ([facility])[address] [place] [address] HEMOGLOBIN A1Con 10-25-2023 Glucose [Mass/Vol] 111 mg/dL Normal [facility] Comment on above: Performed By: #### L [id number] #### [employer]: PARTH TADEO ([id number]) [facility] ([facility]) [address] [place] [address] HbA1c (Bld) [Mass fraction] 5.5 % Normal <5.7 [facility] Comment on above: Result Comment: Norm al less than 5.7% Prediabetes 5.7% to 6.4% Diabetes 6.5% or higher --HgbA1C levels may not be accurate in patients who have renal disease, received recent blood transfusions, are anemic, or who have dyshemoglobinemia. Performed By: #### L [id number] #### [employer]: PARTH TADEO ([id number]) [facility] [address] [place] [address] LACTIC ACID WITH REFLEXon Lactate [Moles/Vol] 2.0 mmol/L Normal 0.7-2.0 [facility] Comment on above: Performed By: #### L [id number] ####[employer]: PARTH TADEO ([id number])[facility])[address] Lactate [Moles/Vol] 2.6 mmol/L High 0.7-2.0 [facility] Comment on above: Performed By: #### L [id number] ####[employer]: PARTH TADEO ([id number])[facility] [place] [address] [place] LIPASEon 10-25-2023 Lipase [Catalytic activity/Vol] 43 U/L Normal 23-[address] [facility] Comment on above: Performed By: #### L AB17, LAB99 ####[employer]: PARTH TADEO ([id number])[facility] ([facility])[address] Laboratory - Chemistry and C hemistry - challengeon 10-25-2023 Average glucose Estimated from glycated hemoglobin (Bld) [Mass/Vol] 111 mg/dL [facility] Beta hydroxybutyrate [Mass/Vol] 13.90 mg/dL High 0.20 - 2.81 mg/dL [facility] Lactate [Moles/Vol] 2.0 mmol/L 0.7 - 2. 0 mmol/L [facility] Lactate [Moles/Vol] 2.6 mmol/L High 0.7 - 2. 0 mmol/L [facility] Lipase [Catalytic activity/Vol] 43 U/L 23 - 300 U/L [facility] Laboratory - Drug toxicology Ordered By: Elyssa Salgado on 10-25-2023 Amphetamines Screen method >1000 ng/mL Ql (U) Negative [facility] Barbiturates Screen method >200 ng/mL Ql (U) Negative [facility]alth Benzodiazepines Ql (U) Negative Yo [facility] Methadone Screen Ql (U) Negative S [facility] Opiates Screen Ql (U) Negative [facility] oxyCODONE Ql (U) Negative [facility] Phencyclidine Ql (U) Negative [facility] Laboratory - Drug toxicology on 10-25-2023 Cannabinoids Screen (U) [Mass/Vol] Positive [facility] Comment on above: THC metabolites have been screened for by Immunoassay at a 50 ng/mL threshold. POSITIVE results are not confirmed by a more specific alternative method unless requested. If confirmation is needed, request confirmation under separate order. NOTE: These results are for medical treatment only. Analysis performed using non-forensic procedures. Laboratory - Hematology and Cell countson 10-25-2023 HbA1c (Bld) [Mass fraction] 5.5 % NINF - 5.7 % [facility] Comment on above: Normal less than 5.7 % Prediabetes 5.7% to 6.4% Diabetes 6.5% or higher --HgbA1C levels may not be accurate in patients who have renal disease, received recent blood transfusions, are anemic, or who have dyshemoglobinemia. Lipase [Catalytic activity/V ol]on 10-25-2023 Interpretation and review of laboratory results Normal [facility] No Panel InformationOrdered By: Elyssa Cope on 10-25-2023 FENTANYL SCREEN, URINE Positive Negative [facility] Fentanyl has been screened for by Immunoassay at a 1 ng/ml threshold. POSITIVE results are not confirmed by a more specific alternative method unless requested. If confirmation is needed, request confirmation under separate order. NOTE: These results are for medical treatment only. Analysis performed using non-forensic procedures. [facility] No Panel InformationOrdered By: Elyssa Salgado on 10-25-2023 COCAINE METAB. SCREEN Negative [facility] The expected value f or all of the drugs listed above is Negative. The following drugs or drug groups have been screened for by Immunoassay at the following thresholds: Amphetamine class (1000 ng/mL) Barbiturates (200 ng/mL) Benzodiazepines (200 ng/mL) Cocaine (300 ng/mL) Methadone (300 ng/mL) Opiates (300 ng/mL) Oxycodone (100 ng/mL) PCP (25 ng/mL) NOTE: These results are for medical treatment only. Analysis performed using non-forensic procedures. POSITIVE results are NOT confirmed by a more specific alternative method unless requested. If confirmation is needed, request confirmation under separate order. [facility] No Panel Informationon 10-24 [facility] Interpretation and review of laboratory results Abnormal [facility] Interpretation and review of laboratory results Normal [facility] Interpretation and review of laboratory results Abnormal [facility] THC SCREEN STAT LABon 2023 THC, URINE Positive Normal [facility] Comment on above: Result Comment: THC metabolites have been screened for by Immunoassay at a 50 ng/mL threshold. POSITIVE results are not confirmed by a more specific alternative method unless requested. If confirmation is needed, request confirmation under separate order. ? NOTE: These results are for medical treatment only. Analysis performed using non-forensic procedures. Performed By: #### L AB20, LAB15, LAB46 #### [employer]: LILIA KNOX ([id number]) [facility] ([facility]) [address] Urinalysis complete panel (U )Ordered By: Danielle Lott on 10-25-2023 Bacteria LM.HPF (Urine sed) [#/Area] Few Abnormal Negative /HPF [facility] Bilirubin Ql (U) Negative Negative mg/dL [facility] Clarity (U) Clear Clear [facility] Color (U) Yellow Lt. Yellow [facility] Epithelial cells.squamous LM.HPF (Urine sed) [#/Area] 0-2 [facility] Glucose Ql (U) Normal Normal (<70) mg/dL [facility] Hemoglobin Ql (U) Negative Negative mg/dL [facility] Interpretation and review of laboratory results Abnormal [facility] Ketones (U) [Mass/Vol] 100 mg/dL Abnormal Negative Yo [facility] Leukocyte esterase Test strip Ql (U) Negative Negative Raina/uL [facility] Mucus LM.HPF (Urine sed) [#/Area] Moderate Abnormal Negative /LPF [facility] Nitrite Ql (U) Negative Negative [facility] Non-Squamous Epithalial Cells, Urine 0-2 Abnormal Negative /HPF [facility] pH (U) 6.5 [pH] 5.0 - 8.0 pH [facility] Protein (U) [Mass/Vol] 50 mg/dL Abnormal Negative [facility] RBC LM.HPF (Urine sed) [#/Area] 0-2 [facility] Specific gravity (U) [Rel density] High 1.005 - 1.030 [facility] Urobilinogen (U) [Mass/Vol] Normal Normal (0-1) mg/dL [facility] WBC LM.HPF (Urine sed) [#/Area] 0-2 [facility] CNDSon 09-27-2023 [facility] HNO ID: [id number] Author: ANDI DAVIDSON MD Service: Hospital Medicine Author Type: Nurse Practitioner Type: Discharge Summary Filed: 09/27/2023 15:12 Note Text: Attestation signed by Andi Davidson MD at 09/27/2023 3:12 PM attested DISCHARGE SUMMARY PATIENT NAME: Mayito Forbes ADMISSION DATE: 09/27/2023 DISCHARGE DATE: 09/27/2023 Attending Physician: Andi Davidson MD Code Status: Not on file Highest Readmission Risk Score: 7 The 30 day readmissions risk score is derived from an internally validated risk model which evaluates patient level characteristics, utilization history, medication orders and lab results up until the day of discharge. Patients with a score of 40 or above are considered highest risk for readmission. Specific patient level drivers will be listed at the bottom of the summary. Reason for Hospitalization: Nausea vomiting Diagnosis: Principal Problem: Intractable nausea and vomiting (POA: Yes) Resolved Problems: * No resolved hospital problems. * Sepsis Ruled Out Hospital Course as Described to the Patient: You were admitted for Nausea vomiting. Mayito Forbes came to the hospital for nausea and vomiting. While in the ED you had blood work completed that did not show any anemia, infection, or electrolyte imbalances. You were brought into the observation unit for further work-up and evaluation. While here, you were treated with IV fluids and IV anti nausea medications with improvement in symptoms. You were ambulating laps in the observation unit. You were able to tolerate solid food and wanted to be discharged home. At this time, we feel it is safe for you to return home. After discussing all of your labs and progress to the observation unit you are amenable to being discharged home. Strict turn precautions discussed to include return of any intractable nausea vomiting diarrhea you are to come back to the emergency department for further evaluation. Otherwise to be discharged home to follow-up with a PCP which should be given a number to contact to establish. DISCHARGE HOME GOING PLAN: -New prescription to include Zofran 4 mg every 8 hours as needed -Please contact clinic appointment line to schedule with a primary care physician at [phone] [facility] [address] [place] [address]. [address] [place] [address] -We encourage daily physical activity 3-4 days per week for at least 30 minutes daily -We encourage a diet that is low in salt, fat and cholesterol -Continue current medication regimen as prescribed by your PCP -1-2 week PCP follow-up to discuss recent admission and ensure you continue to improve RETURN TO THE EMERGENCY DEPARTMENT WITH WORSENING SYMPTOMS OR NEW CONCERNS ARISE Additional Provider to Provider Information: Intractable nausea and vomiting (POA: Yes) pleasant 38-year-old male was admitted the observation after presenting to the emergency apartment with nausea and vomiting. In the ED: - In the ED was given Zofran 4 mg x 2 doses, 2L NaCl, Droperidol 0.625 mg and 2.5 mg - CMP, glucose 119, K 3.4 - Lipase 23 - CBC showing hemoconcentration hgb 18.0 (baseline 13.9-15.3) Observation course: Patient's potassium was minimally low and orally replaced prior to discharge In the observation unit patient continued on IV fluids antiemetics and his symptoms slowly resolved. Patient tolerated solid fluids before discharge. He was ambulating in the observation unit without any lightheadedness or dizziness. After discussing all of his labs and progress while in the observation he was amenable to being discharged home. We discussed strict return precautions which were in his discharge planning. He was provided to numbers to establish with a PCP to follow-up to ensure his symptoms are getting better. Patient was discharged home in stable condition. I have reviewed, confirmed, and edited as necessary, the PFSH and ROS obtained by others. DATA: Most recent labs and imaging results reviewed. Operations During Hospitalization: None Procedures During Hospitalization: No procedures performed Consulting Teams During Hospitalization: Treatment Team: Attending Provider: Andi Davidson MD None Patient Condition @ Discharge: Improved Discharge Disposition: Home/Self Care BP 133/77 Pulse 71 Temp (Src) 99.3 (Temporal) Resp 18 Ht 5' 9 (1.75m) Wt 195 lb (88.5kg) SpO2 96% BMI 28.78 kg/(m2). O2 Therapy: Room Air PHYSICAL EXAM: GENERAL: Alert, oriented x 3 polite cooperative in no acute distress SKIN: Intact, warm, and dry HEAD: Normocephalic. Atraumatic. NECK: Supple, ROM intact. EENT: PERRLA. EOMI. Conjunctiva clear. No scleral icterus. External canals patent. No infection. Nares patent b (more content not included)... Normal [facility] HISTORY PHYSICALon HISTORY PHYSICAL HNO ID: [id number] Author: TATY DELGADO APRN.CNP Service: Hospital Medicine Author Type: Nurse Practitioner Type: H&P Filed: 09/27/2023 02:05 Note Text: RAPID OBSERVATION UNIT HISTORY AND PHYSICAL EXAM SERVICE DATE: September 27, 2023 SERVICE TIME: 1:50 AM Primary Care Physician: No primary care provider on file. NIGHT AND WEEKEND COVERAGE: Patient admitted to [facility] ROU service. Page ROU pager [phone] for any patient concerns/issues. Subjective CHIEF COMPLAINT: intractable nausea and vomiting HPI: This is a 38 year old male with PMH of depression and polysubstance abuse who presented to ED with complaints of intractable nausea and vomiting In the ED: - In the ED was given Zofran 4 mg x 2 doses, 2L NaCl, Droperidol 0.625 mg and 2.5 mg - CMP, glucose 119, K 3.4 - Lipase 23 - CBC showing hemoconcentration hgb 18.0 (baseline 13.9-15.3) On arrival to the ROU: Patient is alert and oriented x 3 and reports that he began having nausea with non bloody, nonbilious vomiting 2 days ago. He woke up feeling nauseated and then began vomiting shortly after. He does endorse having epigastric cramping pain. He has had 1 episode of nonbloody diarrhea while in the ED. He states he has tried to eat and drink and about 1 hour later he begins to vomit. He does also endorse having some subjective fevers, chills and night sweats. He states he does have a sick contact as his girlfriend's daughter was sick with similar illness last week. He denies any cough, myalgias, urinary symptoms. He denies any chest pain, shortness of breath, lightheadedness/dizzine ss, palpitations, lower extremity edema, orthopnea, unilateral calf tenderness. He does smoke 1 PPD cigarette, denies any alcohol or tobacco use. PAST MEDICAL HISTORY Diagnosis Date Psychiatric disorder No past surgical history on file. No family history on file. Social History Tobacco Use Smoking status: Every Day Types: Cigarettes Vaping Use Vaping Use: Never used Substance Use Topics Alcohol use: Never Drug use: Never MEDICATIONS: Reviewed venlafaxine ER (EFFEXOR XR) 75 mg 24 hr capsule, Take 150 mg by mouth daily at bedtime. 150+37.5mg daily per pt, Disp: , Rfl: , 09/27/2023 ALLERGIES No Known Allergies REVIEW OF SYSTEM: PAIN ASSESSMENT: see HPI GENERAL: No weight loss, malaise + fever, chills, night sweats HEENT: No frequent or significant headaches, no changes in hearing or vision, no nosebleeds, congestion or rhinorrhea NECK: No lumps, pain or significant neck swelling RESPIRATORY: No cough, hemoptysis, wheezing, dyspnea or shortness of breath CARDIOVASCULAR: No chest pain, leg swelling, CHF or palpitations GI: No constipation, heartburn or reflux symptoms + nausea, vomiting, diarrhea : No dysuria, frequency or incontinence MUSCULOSKELETAL: No joint pain or swelling, back pain or muscle pain SKIN: No rash or itching PSYCH: No sleep disturbance, mood disorder or recent psychosocial stressors HEMATOLOGY/LYMPHOLOGY: No prolonged bleeding or easy bruising ENDOCRINE: Negative for cold or heat intolerance, polyuria or polydipsia NEURO: No headaches, syncope, paralysis, paresthesias, seizures or tremors Objective PHYSICAL EXAM: BP 157/93 Pulse 94 Temp (Src) 99 (Temporal) Resp 18 Ht 5' 9 (1.75m) Wt 195 lb (88.5kg) SpO2 99% BMI 28.78 kg/(m2). O2 Therapy: Room Air Physical Exam Performed: General: Alert, well-developed, well-nourished, cooperative Skin: Warm AND dry, color AND turgor WNL Eyes: Conjunctiva clear Neck: Supple Back: No CVAT Lungs: Clear to auscultation bilaterally with no wheezes, crackles or rhonchi Cardiac: Regular rate AND rhythm, normal S1 S2, no murmur Abdomen: Soft, + mild tenderness in the epigastric region, non-distended, bowel sounds normoactive Extremities: No edema, capillary refill <3 seconds Neuro: Grossly normal cognition AND motor function Pulses: 2+ radial, 2+ dorsalis pedis DATA: Diagnostic tests reviewed for today's visit: Most recent labs and imaging results. ROU course: Vitals reviewed and stable. Nursing and triage notes reviewed. Past medical records were reviewed. All lab work and images reviewed. Assessment/Plan Active Problems: Intractable nausea and vomiting (POA: Yes) Assessment AND Plan: - 38 year old with PMH of depression, polysubstance abuse came to the ED with complaints of intractable nausea and vomiting. He will be admitted from [facility] ED for symptoms management. - In the ED was given Zofran 4 mg x 2 doses, 2L NaCl, Droperidol 0.625 mg and 2.5 mg - CMP, glucose 119, K 3.4 - Lipase 23 - CBC showing hemoconcentration hgb 18.0 (baseline 13.9-15.3) PLAN: - NaCl at 100 ml/ hr - Zofran 4 mg Q6 PRN - Compazine 10 mg Q6 PRN - Benadryl 25 mg Q6 PRN - CL diet, advance as tolerated - urine tox Fluids/Electrolytes/Nut rition - Diet: CL - IV: saline lock, flushes per protocol Medication and Non-Pharmac (more content not included)... Normal [facility] TOXICOLOGY SCREEN, ROUTINE U RINEon 09-27-2023 Amphetamines Confirm (U) [Mass/Vol] Negative Normal Negative [facility] Comment on above: Order Comment: Speci men Type: URINE SPECIMENOrdering Facility: [facility] Address: [address] [place] [address] Result Comment: Cuto ff threshold at 1000 ng/mL. Performed By: #### U TOX2 ####[facility] LABORATORYCLIA [id number] [place] [address] [place] BARBITURATES, URINE Negative Normal Negative [facility] Comment on above: Order Comment: Speci men Type: URINE SPECIMENOrdering Facility: [facility] Address: [address] [place] [address] Result Comment: Cuto ff threshold at 200 ng/mL. Performed By: #### U TOX2 ####[facility] LABORATORYCLIA [id number] [place] [address] [place] BENZODIAZEPINES, UR Negative Normal Negative [facility] Comment on above: Order Comment: Speci men Type: URINE SPECIMENOrdering Facility: [facility] Address: [address] [place] [address] Result Comment: Cuto ff threshold at 200 ng/mL. Performed By: #### U TOX2 ####[facility]ORY[facility] [id number] [address] Cannabinoids Screen Ql (U) Positive Abnormal Negative [facility] Comment on above: Order Comment: Speci men Type: URINE SPECIMENOrdering Facility: [facility] Address: [address] [place] [address] Result Comment: Cuto ff threshold at 50 ng/mL. Performed By: #### U TOX2 ####[facility]ORYCLIA [id number] [address] Cocaine Ql (U) Negative Normal Negative [facility] Comment on above: Order Comment: Speci men Type: URINE SPECIMENOrdering Facility: [facility] Address: [address] [place] [address] Result Comment: Cuto ff threshold at 300 ng/mL. Performed By: #### U TOX2 ####[facility]ORYCLIA [id number] [address] [place] Ethanol (U) [Mass/Vol] <11 Normal <11 [facility] Comment on above: Order Comment: Speci men Type: URINE SPECIMENOrdering Facility: [facility] Address: [address] [place] [address] Performed By: #### U TOX2 ####[facility]ORYCLIA [id number] [address] OF [facility] Opiates Screen Ql (U) Negative Normal Negative [facility] Comment on above: Order Comment: Speci men Type: URINE SPECIMENOrdering Facility: [facility] Address: [address] [place] [address] Result Comment: Cuto ff threshold at 300 ng/mL. Performed By: #### U TOX2 ####[facility]ORYCLIA [id number] [address] [place] oxyCODONE cutoff Screen (U) [Mass/Vol] Negative Normal Negative [facility] Comment on above: Order Comment: Speci men Type: URINE SPECIMENOrdering Facility: [facility] Address: [address] [place] [address] Result Comment: Cuto ff threshold at 100 ng/mL. Performed By: #### U TOX2 ####[facility]ORATORYCLIA [id number] [address] Phencyclidine Ql (U) Negative Normal Negative [facility] Comment on above: Order Comment: Speci men Type: URINE SPECIMENOrdering Facility: [facility] Address: [address] [place] [address] Result Comment: Cuto ff threshold at 25 ng/mL. Performed By: #### U TOX2 ####[facility] LABORATORYCLIA [id number] [address] [place] AMB POC GLUCOSE TESTOrdered By: Nitza Cornejo on 09-26-2023 Glucose [Mass/Vol] 133 mg/dL Abnormal 70 - 100 mg/dL [facility] Interpretation and review of laboratory results Abnormal [facility] Radiology Study observation (narrative) [facility] alth CBC W Auto Differential pane l (Bld)on 09-26-2023 Basophils (Bld) [#/Vol] 10*3/uL Normal <0.11 [facility] Comment on above: Order Comment: Speci men Type: BLOOD SPECIMEN [facility] Address: [address] [place] [address] Performed By: #### 5 7021-8 #### [facility] CLIA [id number] [address] [place], [place] [id number] [place] Basophils/100 WBC (Bld) 0.1 % Normal [facility] Comment on above: Order Comment: Speci men Type: BLOOD SPECIMEN [facility] Address: [address] [place] [address] Performed By: #### 5 7021-8 #### [facility] [employer] [facility] CLIA [id number] [address] [place], [place] [id number] [place] [facility] Differential cell count method Nom (Bld) Auto Normal [facility] Comment on above: Order Comment: Speci men Type: BLOOD SPECIMEN [facility] Address: [address] [place] [address] Performed By: #### 5 7021-8 #### [facility] CLIA [id number] [address] [place] [address] [place] Eosinophils (Bld) [#/Vol] 10*3/uL Normal <0.46 [facility] Comment on above: Order Comment: Speci men Type: BLOOD SPECIMEN [facility] Address: [address] [place] [address] Performed By: #### 5 7021-8 #### [facility] CLIA [id number] [address] [place], [place] [id number] [facility] [place] Eosinophils/100 WBC (Bld) 0.0 % Normal [facility] Comment on above: Order Comment: Speci men Type: BLOOD SPECIMEN [facility] Address: [address] [place] [address] Performed By: #### 5 7021-8 #### [facility] CLIA [id number] [address] [place] [address] [place] Erythrocyte distribution width (RBC) [Ratio] 11.7 % Normal 11.5-15.0 [facility] Comment on above: Order Comment: Speci men Type: BLOOD SPECIMEN [facility] Address: [address] [place] [address] Performed By: #### 5 7021-8 #### [facility] CLIA [id number] [address] [place] [address] [place] Hematocrit (Bld) [Volume fraction] 50.1 % Normal 39.0-51.0 [facility] Comment on above: Order Comment: Speci men Type: BLOOD SPECIMEN [facility] Address: [address] [place] [address] Performed By: #### 5 7021-8 #### [facility] CLIA [id number] [address] [place] [address] [place] Hemoglobin (Bld) [Mass/Vol] 18.0 g/dL High 13.0-17.0 [facility] Comment on above: Order Comment: Speci men Type: BLOOD SPECIMEN [facility] Address: [address] [place] [address] Performed By: #### 5 7021-8 #### [facility] CLIA [id number] [address] [place] [address] [place] Immature granulocytes (Bld) [#/Vol] 10*3/uL Normal <0.10 [facility] Comment on above: Order Comment: Speci men Type: BLOOD SPECIMEN [facility] Address: [address] [place] [address] Performed By: #### 5 7021-8 #### [facility] CLIA [id number] [address] [place], [place] [address] [place] Immature granulocytes/100 WBC (Bld) 0.1 % Normal [facility] Comment on above: Order Comment: Speci men Type: BLOOD SPECIMEN [facility] Address: [address] [place] [address] Performed By: #### 5 7021-8 #### [facility] CLIA [id number] [address] [place], [place] [address] [place] Lymphocytes (Bld) [#/Vol] 0.78 10*3/uL Low 1.00-4.00 [facility] Comment on above: Order Comment: Speci men Type: BLOOD SPECIMEN [facility] Address: [address] [place] [address] Performed By: #### 5 7021-8 #### [facility] CLIA [id number] [address] [place], [place] [address] [place] Lymphocytes/100 WBC (Bld) 7.4 % Normal [facility] Comment on above: Order Comment: Speci men Type: BLOOD SPECIMEN [facility] Address: [address] [place] [address] Performed By: #### 5 7021-8 #### [facility] CLIA [id number] [address] [place] [address] [place] MCH (RBC) [Entitic mass] 31.5 pg Normal 26.0-34.0 [facility] Comment on above: Order Comment: Speci men Type: BLOOD SPECIMEN [facility] Address: [address] [place] [address] Performed By: #### 5 7021-8 #### [facility] CLIA [id number] [address] [place] [address] [place] MCHC (RBC) [Mass/Vol] 35.9 g/dL Normal 30.5-36.0 [facility] Comment on above: Order Comment: Speci men Type: BLOOD SPECIMEN [facility] Address: [address] [place] [address] Performed By: #### 5 7021-8 #### [facility] CLIA [id number] [address] [place] [address] [place] MCV (RBC) [Entitic vol] 87.6 fL Normal 80.0-100.0 [facility] Comment on above: Order Comment: Speci men Type: BLOOD SPECIMEN [facility] Address: [address] [place] [address] Performed By: #### 5 7021-8 #### [facility] CLIA [id number] [address] [place] [address] [place] Monocytes (Bld) [#/Vol] 0.74 10*3/uL Normal <0.87 [facility] Comment on above: Order Comment: Speci men Type: BLOOD SPECIMEN [facility] Address: [address] [place] [address] Performed By: #### 5 7021-8 #### [facility] CLIA [id number] [address] [place] [address] Monocytes/100 WBC (Bld) 7.0 % Normal [facility] Comment on above: Order Comment: Speci men Type: BLOOD SPECIMEN [facility] Address: [address] [place] [address], [place] [address] Performed By: #### 5 7021-8 #### [facility] CLIA [id number] [address] [place] [address] [place] Neutrophils (Bld) [#/Vol] 9.00 10*3/uL High 1.45-7.50 [facility] Comment on above: Order Comment: Speci men Type: BLOOD SPECIMEN [facility] Address: [address] [place] [address] Performed By: #### 5 7021-8 #### [facility] CLIA [id number] [address] [place] [address] [place] Neutrophils/100 WBC (Bld) 85.4 % Normal [facility] Comment on above: Order Comment: Speci men Type: BLOOD SPECIMEN [facility] Address: [address] [place] [address] Performed By: #### 5 7021-8 #### [facility] CLIA [id number] [address] [place] [address] [place] Nucleated RBC (Bld) [#/Vol] Normal [facility] Comment on above: Order Comment: Speci men Type: BLOOD SPECIMEN [facility] Address: [address] [place] [address] Performed By: #### 5 7021-8 #### [facility] CLIA [id number] [address] [place] [address] [place] Nucleated RBC/100 WBC (Bld) [Ratio] Normal [facility] Comment on above: Order Comment: Speci men Type: BLOOD SPECIMEN [facility] Address: [address] [place] [id number] Performed By: #### 5 7021-8 #### [facility] CLIA [id number] [address] [place] [address] [place] Platelet mean volume (Bld) [Entitic vol] 8.6 fL Low 9.0-12.7 [facility] Comment on above: Order Comment: Speci men Type: BLOOD SPECIMEN [facility] Address: [address] [place] [id number] Performed By: #### 5 7021-8 #### [facility] CLIA [id number] [address] [place] [address] [facility] Platelets (Bld) [#/Vol] 355 10*3/uL Normal 150-400 [facility] Comment on above: Order Comment: Speci men Type: BLOOD SPECIMEN [facility] Address: [address] [place] [address] Performed By: #### 5 7021-8 #### [facility] CLIA [id number] [address] [place] [address] [facility] RBC (Bld) [#/Vol] 5.72 10*6/uL Normal 4.20-6.00 [facility] Comment on above: Order Comment: Speci men Type: BLOOD SPECIMEN [facility] Address: [address] [place] [address] Performed By: #### 5 7021-8 #### [facility] CLIA [id number] [address] [place] [address] [facility] OF [place] WBC (Bld) [#/Vol] 10.54 10*3/uL Normal 3.70-11.00 [facility] Comment on above: Order Comment: Speci men Type: BLOOD SPECIMEN [facility] Address: [address] [place] [address] Performed By: #### 5 7021-8 #### [facility] CLIA [id number] [address] [place] [address] [facility] Comprehensive metabolic 2000 panelon 09-26-2023 Albumin [Mass/Vol] 4.8 g/dL Normal 3.9-4.9 [facility] Comment on above: Order Comment: Speci men Type: BLOOD SPECIMENOrdering Facility: [facility] Address: [address] [place] [address] Performed By: #### 2 4323-8, 3040-3 ####[facility] [id number] [place] [address] [place] ALP [Catalytic activity/Vol] 82 U/L Normal 38-113 [facility] Comment on above: Order Comment: Speci men Type: BLOOD SPECIMENOrdering Facility: [facility] Address: [address] [place] [id number] Performed By: #### 2 4323-8, 3040-3 ####[facility] [id number] [place] [address] [place] ALT [Catalytic activity/Vol] 25 U/L Normal 10-54 [facility] Comment on above: Order Comment: Speci men Type: BLOOD SPECIMENOrdering Facility: [facility] Address: [address] [place] [address] Performed By: #### 2 4323-8, 3040-3 ####[facility] [id number] [place] [address] [place] [facility] Anion gap [Moles/Vol] 13 mmol/L Normal 9-18 [facility] Comment on above: Order Comment: Speci men Type: BLOOD SPECIMENOrdering Facility: [facility] Address: [address] [place] [address] Performed By: #### 2 4323-8, 3040-3 ####[facility] [id number] [place] [address] [place] AST [Catalytic activity/Vol] 17 U/L Normal 14-40 [facility] Comment on above: Order Comment: Speci men Type: BLOOD SPECIMENOrdering Facility: [facility] Address: [address] [place] [id number] Performed By: #### 2 4323-8, 3040-3 ####[facility] [id number] [place] [address] [place] Bilirubin [Mass/Vol] 0.6 mg/dL Normal 0.2-1.3 [facility] Comment on above: Order Comment: Speci men Type: BLOOD SPECIMENOrdering Facility: [facility] Address: [address] [place] [address] Result Comment: Use of this assay is not recommended for patients undergoing treatment with eltrombopag due to the potential for falsely elevated results. Performed By: #### 2 4323-8, 3040-3 ####[facility] [id number] [place] [address] [place] Calcium [Mass/Vol] 9.9 mg/dL Normal 8.5-10.2 [facility] Comment on above: Order Comment: Speci men Type: BLOOD SPECIMENOrdering Facility: [facility] Address: [address] [place] [address] Performed By: #### 2 4323-8, 3039-3 ####[facility] LABCLIA [id number] [place] [address] [place] Chloride [Moles/Vol] 103 mmol/L Normal 97-105 [facility] Comment on above: Order Comment: Speci men Type: BLOOD SPECIMENOrdering Facility: [facility] Address: [address] [place] [address] Performed By: #### 2 4323-8, 3039-3 ####[facility] [id number] [place] [address] [place] CO2 [Moles/Vol] 24 mmol/L Normal 22-30 [facility] Comment on above: Order Comment: Speci men Type: BLOOD SPECIMENOrdering Facility: [facility] Address: [address] [place] [address] Performed By: #### 2 4323-8, 0-3 ####[facility] [id number] [place] [address] [place] Creatinine [Mass/Vol] 1.07 mg/dL Normal 0.73-1.22 [facility] Comment on above: Order Comment: Speci men Type: BLOOD SPECIMENOrdering Facility: [facility] Address: [address] [place] [address] Result Comment: Use of this assay is not recommended for patients undergoing treatment with phenindione, due to the potential for falsely depressed results. Performed By: #### 2 4323-8, 3039-3 ####[facility] [id number] [place] [id number] [place] Creatinine and Glomerular filtration rate.predicted panel (S/P/Bld) 91 mL/min/1.73m??? Normal >=60 [facility] Comment on above: Order Comment: Nicolás dickson Type: BLOOD SPECIMENOrdering Facility: [facility] Address: [address] [place] [address] Result Comment: Jaymie mated Glomerular Filtration Rate (eGFR) is calculated using the 2020 CKD-EPI creatinine equation. This equation utilizes serum creatinine, sex, and age as parameters. The creatinine assay has traceable calibration to isotope dilution-mass spectrometry. Refer to KDIGO guidelines for clinical interpretation. In patients with unstable renal function, e.g. those with acute kidney injury, the eGFR may not accurately reflect actual GFR. Performed By: #### 2 4323-8, 3 ####[facility] LABCLIA [id number] [place] [id number] [place] Glucose [Mass/Vol] 119 mg/dL High 74-99 [facility] Comment on above: Order Comment: Nicolás dickson Type: BLOOD SPECIMENOrdering Facility: [facility] Address: [address] [place] [address] Result Comment: The [place] [employer] (ADA) provides guidance for cutoff values for fasting glucose and random glucose. The ADA defines fasting as no caloric intake for at least 8 hours. Fasting plasma glucose results between 100 to 125 mg/dL indicate increased risk for diabetes (prediabetes). Fasting plasma glucose results greater than or equal to 126 mg/dL meet the criteria for diagnosis of diabetes. In the absence of unequivocal hyperglycemia, results should be confirmed by repeat testing. In a patient with classic symptoms of hyperglycemia or hyperglycemic crisis, random plasma glucose results greater than or equal to 200 mg/dL meet the criteria for diagnosis of diabetes. Reference: Standards of Medical Care in Diabetes 2016, [place] [employer]. Diabetes Care. 2016.39(Suppl 1). Performed By: #### 2 4323-8, 3039-3 ####[employer] [facility] [employer] LABCLIA [id number] [place] [address] [place] Potassium [Moles/Vol] 3.4 mmol/L Low 3.7-5.1 [facility] Comment on above: Order Comment: Speci men Type: BLOOD SPECIMENOrdering Facility: [facility] Address: [address] [place] [address] Performed By: #### 2 4323-8, 3040-3 ####[facility] LABCLIA [id number] [place] [address] [place] Protein [Mass/Vol] 8.1 g/dL High 6.3-8.0 [facility] Comment on above: Order Comment: Speci men Type: BLOOD SPECIMENOrdering Facility: [facility] Address: [address] [place] [address] Performed By: #### 2 4323-8, 3040-3 ####[facility] LABCLIA [id number] [place] [address] [place] [facility] Sodium [Moles/Vol] 140 mmol/L Normal 136-144 [facility] Comment on above: Order Comment: Speci men Type: BLOOD SPECIMENOrdering Facility: [facility] Address: [address] [place] [address] Performed By: #### 2 4323-8, 3040-3 ####[facility] LABCLIA [id number] [place] [address] [place] Urea nitrogen [Mass/Vol] 14 mg/dL Normal 9-24 [facility] Comment on above: Order Comment: Speci men Type: BLOOD SPECIMENOrdering Facility: [facility] Address: [address] [place] [address] Performed By: #### 2 4323-8, 3040-3 ####[facility] LABCLIA [id number] [place] [address] [place] ECG COMPLETEon 09-26-2023 ECG COMPLETE Ventricular Rate : 1 09 BPM Atrial Rate : 109 BPM P-R Interval : 140 ms QRS Duration : 72 ms Q-T Interval : 318 ms QTC Calculation(Bazett) : 428 ms Calculated P [place] : 71 degrees Calculated R [place] : 37 degrees Calculated T [place] : 61 degrees SINUS TACHYCARDIA OTHERWISE NORMAL ECG NO PREVIOUS ECGS AVAILABLE Confirmed by SUSAN LATHAM MD ([id number]) on 09/26/2023 8:26:23 PM NAME : MAYITO FORBES PID : [id number] : 1985 Gender : Male Race : ORD : [id number] Procedure Date : Sep 26 2023 19:44:26 Edit Date : Sep 26 2023 20:26:23 Diagnosis: SINUS TACHYCARDIA OTHERWISE NORMAL ECG NO PREVIOUS ECGS AVAILABLE Confirmed by SUSAN LATHAM MD ([id number]) on 09/26/2023 8:26:23 PM Test Reason : Chest Pain Location : 148 : [facility] ED Overread By : SUSAN LATHAM MD Edited By : SUSAN LATHAM MD Referred By : , Acquired by : NIMCO SOMMER MD [facility] ED NOTEon 09-26-2023 ED NOTE HNO ID: [id number] Author: ADELIA WILEY RN Service: Emergency Medicine Author Type: Registered Nurse Type: ED Notes Filed: 09/26/2023 11:13 Note Text: Patient was brought in by Roxana JUAREZ from the [facility] for nausea and vomiting for 2 days. He states that his hands are cramping up. Patient refused Zofran en route by medics. [facility] ED PROV NOTEon 09-26-2023 ED PROV NOTE HNO ID: [id number] Author: SUSAN LATHAM MD Service: Emergency Medicine Author Type: Resident Type: ED Provider Notes Filed: 09/26/2023 20:25 Note Text: Attestation signed by Susan Latham MD at 09/26/2023 8:25 PM Ultrasound IV supervised. Please see my separate ED provider note from day of visit for my documentation regarding ED visit. Signature: Susan Latham MD Date: 09/26/2023 Time: 8:24 PM ED Procedure Note Patient Name: Mayito Forbes : 1985 SERVICE DATE: 09/26/23 Ultrasound Guided Peripheral Line Access US IV INSERTION (POC) ED USE ONLY ([place], NO AC) Date/Time: 09/26/2023 4:00 PM Performed by: Alonzo Casanova DO Authorized by: Susan Latham MD Indication: Patient requires placement of a peripheral venous catheter for emergent administration of IV fluids and or medications. Several blind peripheral attempts were unsuccessful. Procedure in detail Using the linear probe covered in a sterile sheath, a short inaxis views were obtaed of the: Forearm vein. This vein was completely compressible and was identified as separate from the adjacent non-compressible arterial structure. Under real-time guidance, the intravenous needle was observed to tent the vein, and then to puncture it. Yes still images or video images were saved for this exam. Conclusion: Successful peripheral venous catheterization under ultrasound guidance. This limited imaging study was performed by: Resident/MARYELLEN with Attending supervision. Dr. Latham supervised and interpreted this ultrasound exam. SIGNATURE: DO DEENA Abbott CHRISTOPHER 09/26/232011 SUSAN LATHAM 09/26/232024 [facility] ED PROV NOTE HNO ID: [id number] Author: SUSAN LATHAM MD Service: Emergency Medicine Author Type: Physician Type: ED Provider Notes Filed: 09/27/2023 15:02 Note Text: Attending Note I personally saw and examined the patient. I reviewed the MARYELLEN's note. I agree with the MARYELLEN's assessment and plan unless otherwise noted. I was present for the significant portion of the procedure(s). Brief HPI: Mayito Forbes is a 38 year old male presenting to the emergency department today for evaluation of nausea vomiting and abdominal cramping. He reports exposed to his girlfriend's daughter who is sick with nausea vomiting and diarrhea just prior to onset of his symptoms. Has had symptoms for the last 2 days. Denies any new medications. No abrupt discontinuation of prior medications that he has been on. He denies any fevers or chills. He reports feeling generally unwell with poor p.o. intake for the last few days. He reports some mild generalized abdominal cramping typically associated with vomiting. Emesis is nonbloody and nonbilious. Diarrhea is nonbloody and nonbilious. PAST MEDICAL HISTORY Diagnosis Date Psychiatric disorder Physical Exam: - Gen: ill but nontoxic appearing, NAD. Tachycardic when awake, HR 70s-80 when asleep. - HEENT: AT/NC, PERRL. Dry oral mucosa - CV: RRR, tachycardic when awake 110s. - Pulm: No respiratory distress, CTAB - abdomen: soft, non tender to deep palpation. Non distended - skin: normal turgor. No rash. - Neuro: No focal neurologic deficits, AANDOx3 MDM/Plan: Patient presents the emergency department with nausea vomiting and diarrhea after exposure to sick contact at home. CBC shows some hemoconcentration. No significant electrolyte abnormalities on CMP. Did not provide urine sample for urine tox. Was given multiple IV fluid boluses and rounds of antiemetics here in an attempt to control symptoms. Was still having nausea. Unable to tolerate p.o. other than medications. He did take home Effexor prior to transfer. Plan for admission to [facility] for intractable nausea and vomiting. Abdominal exam remained benign over his 12-hour ED stay though I do not feel that he needs a CT scan at this time. Likely gastroenteritis. He is agreeable to transfer to [facility] for overnight admission for intractable nausea/vomiting. Accepted by [employer] under Dr. Davidson. SUSAN LATHAM 09/27/23 1502 Normal [facility] ED PROV NOTE HNO ID: [id number] Author: SUSAN LATHAM MD Service: Emergency Medicine Author Type: Physician Landscape Gardener Type: ED Provider Notes Filed: 09/28/2023 14:41 Note Text: Attestation signed by Susan Latham MD at 09/28/2023 2:41 PM Attending Note I have personally performed a face to face assessment of the patient and have reviewed the MARYELLEN note. I performed a substantive portion of the visit including all aspects of the following. My canales findings are included and separate ED provider note from day of visit. Signature: Susan Latham MD Date: 09/28/2023 Time: 2:41 PM ED Provider Note Patient Name: Mayito Forbes : 1985 SERVICE DATE: 09/26/23 History Patient presents with: Nausea AND Vomiting HPI 38-year-old male presents with nausea vomiting x 2 days. Patient states he has had multiple episodes of nonbloody nonbilious emesis. He also endorses epigastric abdominal pain that is cramping in nature. He did have 1 episode of diarrhea. He endorses subjective fever and chills. He states that his girlfriend's daughter was recently sick with similar symptoms. He denies any diet changes or recent travel. He denies any history of abdominal surgery. He denies chest pain, shortness of breath, urinary complaints, lightheadedness or dizziness. He was at urgent care prior to arrival and told to come here for further evaluation. PAST MEDICAL HISTORY Diagnosis Date Psychiatric disorder History reviewed. No pertinent surgical history. No family history on file. Social History Tobacco Use Smoking status: Every Day Types: Cigarettes Smokeless tobacco: Not on file Vaping Use Vaping Use: Never used Substance and Sexual Activity Alcohol use: Never Drug use: Never Sexual activity: Not on file ALLERGIES No Known Allergies Review of Systems Constitutional: Positive for chills and fever. HENT: Negative for congestion and sore throat. Respiratory: Negative for shortness of breath. Cardiovascular: Negative for chest pain. Gastrointestinal: Positive for abdominal pain, diarrhea, nausea and vomiting. Genitourinary: Negative for dysuria, frequency and urgency. Musculoskeletal: Negative for arthralgias and neck pain. Skin: Negative for color change and wound. Neurological: Negative for dizziness, syncope, light-headedness and numbness. All other systems reviewed and are negative. Physical Exam Vitals [09/26/23 1113] BP Pulse Temp Temp src Resp SpO2 Weight Height 142/100 (!) 103 36.9 ?C (98.4 ?F) Temporal 16 100 % 86.2 kg (190 lb) -- Physical Exam Vitals and nursing note reviewed. Constitutional: General: He is not in acute distress. Appearance: Normal appearance. He is well-developed. He is not ill-appearing or toxic-appearing. HENT: Head: Normocephalic and atraumatic. Right Ear: External ear normal. Left Ear: External ear normal. Nose: Nose normal. Mouth/Throat: Mouth: Mucous membranes are moist. Pharynx: Uvula midline. No oropharyngeal exudate. Eyes: Conjunctiva/sclera: Conjunctivae normal. Pupils: Pupils are equal, round, and reactive to light. Cardiovascular: Rate and Rhythm: Normal rate and regular rhythm. Heart sounds: Normal heart sounds. No murmur heard. Pulmonary: Effort: Pulmonary effort is normal. No tachypnea, accessory muscle usage or respiratory distress. Breath sounds: Normal breath sounds. No stridor. No decreased breath sounds, wheezing, rhonchi or rales. Abdominal: General: There is no distension. Palpations: Abdomen is soft. Tenderness: There is abdominal tenderness (mild) in the epigastric area. There is no right CVA tenderness, left CVA tenderness, guarding or rebound. Musculoskeletal: General: No deformity. Normal range of motion. Cervical back: Normal range of motion and neck supple. Skin: General: Skin is warm and dry. Capillary Refill: Capillary refill takes less than 2 seconds. Neurological: General: No focal deficit present. Mental Status: He is alert and oriented to person, place, and time. Sensory: No sensory deficit. Gait: Gait normal. Psychiatric: Mood and Affect: Mood normal. Speech: Speech normal. Behavior: Behavior normal. Thought Content: Thought content normal. Judgment: Judgment normal. Diagnostic Testing ED Labs Ordered and Reviewed COMPLETE BLOOD COUNT AND DIFFERENTIAL - Abnormal; Notable for the following components: Result Value Ref Range Hemoglobin 18.0 (*) 13.0 - 17.0 g/dL MPV 8.6 (*) 9.0 - 12.7 fL Abs Neut 9.00 (*) 1.45 - 7.50 k/uL Abs Lymph 0.78 (*) 1.00 - 4.00 k/uL All other components within normal limits COMPREHENSIVE METABOLIC PANEL LIPASE Procedures ED Course / Clinical Impression Pt presents with nausea and vomiting. He recently was exposed to a sick contact who also h (more content not included)... Normal [facility] Lipase SerPl-cCncon 09-26-19 24 Lipase [Catalytic activity/Vol] 23 U/L Normal 16-61 [facility] Comment on above: Order Comment: Speci men Type: BLOOD SPECIMENOrdering Facility: [facility] Address: [address] [place] [address] Performed By: #### 2 4323-8, 3040-3 ####[facility] LABCLIA [id number] [place] [address] [facility] Office Visiton 09-26-2023 Follow-up visit [id number] Aiden Forbes 1985 M Date Provider Department Center 09/26/2023 RADHA DHALIWAL [facility] None No family history on file Level of Service:07832 [place] OFFICE/OUTPT VISIT,PROCEDURE ONLY Reason for Visit and Comments: cramping [Other] - hands Dizziness [[id number]] Normal [facility] Progress Noteon 09-26-2023 Progress Note N/V x2 days Can't keep anything down Hands started cramping this monring, can't control them Feels SOB, LH No CP Lips turning a different color Hx of anxiety No hx of DM No new meds Does not want to go by EMS BP 120/84 Pulse (!) 112 Temp 36.9 ?C (98.4 ?F) SpO2 100% Normal [facility] Progress Note [facility] [address] [facility] [address] Dept: [phone] Dept Loc: [phone] Subjective Mayito Forbes is a 38 y.o. year old male who presents to the office with the following complaint(s): No chief complaint on file. See above note for HPI Review of Systems Constitutional: Negative for chills and fever. Denies alcohol or drug use Denies new medications denies new foods HENT: Negative for congestion, rhinorrhea and trouble swallowing. Around mouth tingling/numbness Respiratory: Negative for shortness of breath. Cardiovascular: Negative for chest pain and palpitations. Gastrointestinal: Positive for abdominal pain, nausea and vomiting. Negative for constipation and diarrhea. Neurological: Positive for dizziness. Negative for headaches. No Known Allergies No past medical history on file. No past surgical history on file. No family history on file. Social History Socioeconomic History Marital status: Single Tobacco Use Smoking status: Every Day Packs/day: 1 Types: Cigarettes Vaping Use Vaping Use: Never used Substance and Sexual Activity Alcohol use: Not Currently Drug use: Yes Types: Methamphetamines Current Outpatient Medications on File Prior to Visit Medication Sig Dispense Refill venlafaxine XR (Effexor XR) 225 MG 24 hr tablet Take 225 mg by mouth daily (with breakfast). Do not crush, chew, or split. No current facility-administered medications on file prior to visit. Objective BP 120/84 Pulse (!) 112 Temp 36.9 ?C (98.4 ?F) SpO2 100% Physical Exam Constitutional: Appearance: He is diaphoretic. HENT: Head: Normocephalic. Nose: Nose normal. Mouth/Throat: Lips: No lesions. Comments: Lip color appears dusky Eyes: Pupils: Pupils are equal, round, and reactive to light. Cardiovascular: Rate and Rhythm: Regular rhythm. Tachycardia present. Heart sounds: Normal heart sounds. Pulmonary: Effort: No respiratory distress. Breath sounds: Normal breath sounds. Musculoskeletal: Comments: Patient noted to be holding hands in contractured position Skin: General: Skin is warm. Neurological: General: No focal deficit present. Mental Status: He is alert. Psychiatric: Mood and Affect: Mood normal. Thought Content: Thought content normal. Judgment: Judgment normal. BS-133 Limited evaluation due to sending patient to emergency department Assessment: 1. Cramping of hands 2. Dizziness 3. Nausea and vomiting, unspecified vomiting type Diagnoses and all orders for this visit: Cramping of hands (Primary) - AMB POC GLUCOSE TEST Dizziness - AMB POC GLUCOSE TEST Nausea and vomiting, unspecified vomiting type - AMB POC GLUCOSE TEST Initially-patient stated he did not want to go by EMS. Visitor said she felt comfortable taking patient, however visitor told patient it would be 23 minutes to get to [place] emergency department. Patient stated he wanted to go via EMS. I explained to patient that with his symptoms-having a further evaluation would be recommended. I explained capabilities of urgent care-patient understanding. Patient noted to leave with EMS. Vital signs stable other than tachycardia. (Please note that portions of this note may have been completed with a voice recognition program. Efforts were made to edit the dictations but occasionally words aremis-transcribed.) Radha Batista APRN-OFFICE NURSE PRACTITIONER 09/26/23 [facility] CNOVon 08-29-2023 [facility] Office Visit (LINUSWA ) MAYITO FORBES ([id number]) 1985 M Date Time Provider Department 08/29/23 5:25 PM GENEVA CALDERA During your visit today, we recorded the following information about you: Temperature Pulse Respiration Blood pressure 98.5 degrees 94/minute 16/minute 154/85 Weight Height 87.5 kg 1.753 m Geneva Caldera APRN.[employer] 08/29/2023 5:58 PM Addendum (H93.19) Tinnitus, unspecified laterality (primary encounter diagnosis) (H92.03) Acute otalgia, bilateral Plan: methylPREDNISolone (MEDROL DOSE-PACK) 4 mg Dose-Pack, cetirizine (ZYRTEC) 10 mg tablet (H69.93) Eustachian tube dysfunction, bilateral Plan: methylPREDNISolone (MEDROL DOSE-PACK) 4 mg Dose-Pack, cetirizine (ZYRTEC) 10 mg tablet (M26.621) TMJ tenderness, right Plan: methylPREDNISolone (MEDROL DOSE-PACK) 4 mg Dose-Pack, cetirizine (ZYRTEC) 10 mg tablet Bilateral TMs are healthy. Slight right tmj click. Will treat with steroids and an antihistamine. -OTC tylenol/ibuprofen as directed on the bottle. -Eustachian tube and tmj packet given. -Make follow up with primary care for monitoring and resolution in symptoms. -Signs that warrant an ER evaluation: Sudden change/worsening in condition, lethargy, signs of dehydration, fever greater than 102 F that is not responding to Tylenol or ibuprofen (Motrin, Advil), drooling, difficulty swallowing, difficulty breathing, shortness of breath, chest pain, evidence of airway compromise (tripod position, neck extension, retractions), seizures, changes in mental status, or other concerns. Lifestyle and home remedies: Often, tinnitus can't be treated. Some people, however, get used to it and notice it less than they did at first. For many people, certain adjustments make the symptoms less bothersome. These tips may help: Use hearing protection. Over time, exposure to loud sounds can damage the nerves in the ears, causing hearing loss and tinnitus. To keep your tinnitus from getting worse, take steps to protect your hearing. If you use [employer], are a musician, work in an industry that uses loud machinery or use firearms (especially pistols or shotguns), always wear [id number] hearing protection. Turn down the volume. Listening to music at very high volume through headphones can contribute to hearing loss and tinnitus. Use white noise. If tinnitus is especially noticeable in quiet settings, try using a white noise machine to mask the noise from tinnitus. If you don't have a white noise machine, a fan, soft music or low-volume radio static also may help. Limit alcohol, caffeine and nicotine. These substances, especially when used in excess, can affect blood flow and contribute to tinnitus. Geneva Caldera APRN.[facility] 08/29/2023 6:05 PM Signed This note was created using NoteWriter. Subjective Mayito Forbes is a 38 year old male. HPI by patient: Mayito Forbes is a 38 year old presenting to the office with the complaint of bilateral ear pain. Started approximately 1 month. Associated symptoms include some sinus pressure, ringing of the ears, and tender lymph nodes. States he does note a click when chewing at times, has painful chewing. Denies fever, cough that is new, body aches, fatigue, sore throat, headache, and gi symptoms. Covid Immunization Dates Overdue - Covid-19 Vaccine ( season) Overdue since 01/28/2023 09/24/2020 Imm Admin: COVID-19 original vaccine, full dose, monovalent (MODERNA) 08/27/2020 Imm Admin: COVID-19 original vaccine, full dose, monovalent (MODERNA) Sick contacts: none. Smoking history/second hand smoke: none. OTC debrox. No antibiotic use in the last 60 days. ALLERGIES No Known Allergies No family history on file. Active Ambulatory Problems Nicotine use disorder, F17.2 Date Noted: 05/09/2022 Obesity, Class II, BMI 35-39.9 Date Noted: 05/09/2022 Resolved Ambulatory Problems Nausea and vomiting in adult Date Noted: 05/08/2022 Past Medical History: No date: Psychiatric disorder Review of Systems Constitutional: Negative. HENT: Positive for ear pain, sinus pressure and tinnitus. Negative for congestion. Eyes: Negative. Respiratory: Negative. Cardiovascular: Negative. Gastrointestinal: Negative. Endocrine: Negative. Genitourinary: Negative. Musculoskeletal: Negative. Skin: Negative. Neurological: Negative. Objective BP 154/85 Pulse 94 Temp 36.9 ?C (98.5 ?F) Resp 16 Ht 175.3 cm (5' 9) Wt 87.5 kg (193 lb 0.2 oz) SpO2 96% BMI 28.50 kg/m? Physical Exam Vitals reviewed. Constitutional: General: He is awake. He is not in acute distress. Appearance: He is not ill-appearing, toxic-appearing or diaphoretic. HENT: Head: Normocephalic and atraumatic. Comments: +slight right tmj click. Right Ear: Tympanic membrane, ear canal and external ear normal. Left Ear: Tympanic membrane, ear canal and e (more content not included)... Normal [facility] ED Nursing Noteon 08-22-2023 ED Nursing Note Pt presents with L pinky finger injury after smashing with hammer at work today. Is UTD on tetanus. Some swelling and bruising noted to hand . Limited movement to finger. +tingling to fingers on L side Normal [facility] ED Provider Noteon ED Provider Note Emergency Department Encounter [facility] ED Patient: Mayito Forbes : 1985 Date of Evaluation: 08/22/2023 ED Supervising Physician: Marc Lainez DO I personally evaluated Mayito Forbes and made/approved the management plan and take responsibility for the patient management. This will serve as my Supervisory note and shared attestation. I did perform a substantive portion of the visit including all aspects of the Medical Decision Making. I wore appropriate PPE for the entirety of this encounter. In brief, Mayito Forbes is a 38 y.o. that presents to the emergency department with crushing injury of left fifth finger with a hammer. Evidence of bleeding. Focused exam: Subungual hematoma of the left fifth finger that is draining, no obvious laceration external from the nail. The distal tip of the pinky is bruised and pale. Flexion and extension of the pinky are intact. Hand is otherwise atraumatic. Brief ED course/MDM: 11:36 PM - The patient presented with chief complaint of crush injury of the left fifth finger. See history and physical exam above. Plain films will be obtained to evaluate for fracture.. To aid in management, I performed an independent interpretation of all laboratory tests, EKG, imaging, and other diagnostics ordered. Plain films are negative for acute fracture as interpreted by me, see radiologist report for details. The subungual hematoma is already draining, no need for trephination. There is likely a laceration under the nail that would not be approached at this time, will be left to heal by secondary intention. The patient will be discharged with wound care instructions and follow-up to PCP. All diagnostic, treatment, and disposition decisions were made by myself in conjunction with the Resident. I also supervised canales portions of any procedures performed by the Resident. For all further details of the patient's emergency department visit, please see their documentation. (Comment: Please note this report has been produced using speech recognition software and may contain errors related to that system including errors in grammar, punctuation, and spelling, as well as words and phrases that may be inappropriate. If there are any questions or concerns please feel free to contact the dictating provider for clarification.) Marc Lainez, DO [facility] Solutions Marc Lainez, DO 08/22/23 2336 Normal [facility] ED Provider Note EMERGENCY DEPARTMENT ENCOUNTER Pt Name: Mayito Forbes Birthdate 1985 Date of evaluation: 08/22/2023 ED Provider: León Gilmore II, MD CHIEF COMPLAINT Chief Complaint Patient presents with Hand Pain HISTORY OF PRESENT ILLNESS (Location/Symptom, Timing/Onset, Context/Setting, Quality, Duration, Modifying Factors, Severity) Note limiting factors. I wore appropriate PPE for the entirety of this encounter. HPI Mayito Forbes is a 38 y.o. who presents to the emergency department with concerns for hand pain after an injury at work. Patient hit his left fifth digit at work with a hammer, and since that time has had swelling and pain with active and passive range of motion over the fifth digit and metacarpal. Nursing Notes were reviewed. Limitations to history: Outside historians: REVIEW OF SYSTEMS Review of Systems Pertinent positives and negatives as per HPI. PAST MEDICAL HISTORY No past medical history on file. SURGICAL HISTORY No past surgical history on file. CURRENT MEDICATIONS Previous Medications VENLAFAXINE XR (EFFEXOR XR) 225 MG 24 HR TABLET Take 225 mg by mouth daily (with breakfast). Do not crush, chew, or split. ALLERGIES Patient has no known allergies. FAMILY HISTORY No family history on file. SOCIAL HISTORY Social History Socioeconomic History Marital status: Single Tobacco Use Smoking status: Every Day Packs/day: 1 Types: Cigarettes Vaping Use Vaping Use: Never used Substance and Sexual Activity Alcohol use: Not Currently Drug use: Yes Types: Methamphetamines SCREENINGS PHYSICAL EXAM ED Triage Vitals [08/22/23 2223] Temp Heart Rate Resp BP 36.8 ?C (98.3 ?F) 91 14 109/77 SpO2 Temp Source Heart Rate Source Patient Position 98 % Temporal Monitor -- BP Location FiO2 (%) -- -- Physical Exam Vitals and nursing note reviewed. Constitutional: General: He is not in acute distress. Appearance: He is well-developed. HENT: Head: Normocephalic and atraumatic. Eyes: Conjunctiva/sclera: Conjunctivae normal. Cardiovascular: Rate and Rhythm: Normal rate and regular rhythm. Heart sounds: No murmur heard. Pulmonary: Effort: Pulmonary effort is normal. No respiratory distress. Breath sounds: Normal breath sounds. Abdominal: Palpations: Abdomen is soft. Tenderness: There is no abdominal tenderness. Musculoskeletal: General: No swelling. Cervical back: Neck supple. Comments: Swelling over the left fifth digit and pain with active and passive range of motion. Pain over the distal, middle, and proximal phalanges joints as well as the fifth metacarpal. Evidence of ruptured subungual hematoma. Skin: General: Skin is warm and dry. Capillary Refill: Capillary refill takes less than 2 seconds. Neurological: Mental Status: He is alert. Psychiatric: Mood and Affect: Mood normal. DIAGNOSTIC RESULTS RADIOLOGY (Per Emergency Physician): Interpretation per the Radiologist below, if available at the time of this note: XR hand 3+ views left Final Result 1. No acute osseous abnormality. Report Dictated on Electronically Signed By: Joseph Kellogg MD Electronically Signed Date/Time: 08/22/2023 11:04 PM EDT LABS: Labs Reviewed - No data to display All other labs were within normal range or not returned as of this dictation. EMERGENCY DEPARTMENT COURSE and DIFFERENTIAL DIAGNOSIS/MDM: Vitals: Vitals: 08/22/23 2223 BP: 109/77 Pulse: 91 Resp: 14 Temp: 36.8 ?C (98.3 ?F) TempSrc: Temporal SpO2: 98% 38-year-old male presenting to the emergency department with hand pain. Patient hit his left fifth digit with a hammer at work and has had severe pain since then. Obtained x-ray, which demonstrated no fractures or other acute abnormality. Patient likely has a ruptured subungual hematoma of his left fifth digit. Patient discharged from the emergency department. Diagnoses as of 08/22/23 2339 Subungual hematoma of fingernail, initial encounter External records reviewed: Diagnostics interpreted by me: Discussions with other clinicians: Chronic conditions impacting care: Social determinants of health affecting care: ED Medications managed: Medications - No data to display Prescription drugs considered: PROCEDURES: Unless otherwise noted below, none Procedures FINAL IMPRESSION 1. Subungual hematoma of fingernail, initial encounter DISPOSITION Discharge 08/22/2023 11:33:01 PM PATIENT REFERRED TO: No follow-up provider specified. DISCHARGE MEDICATIONS: New Prescriptions No medications on file (Comment: Please note this report has been produced using speech recognition software and may contain errors related to that system including errors in grammar, punctuation, and spelling, as well as words and phrases that may be inappropriate. If there are any questions or concerns please feel free to contact the dictating provider for clarif (more content not included)... Normal [facility] XR Hand - left 3 Viewson 1. No acute osseous abnormality. Report Dictated on Electronically Signed By: Joseph Kellogg MD Electronically Signed Date/Time: 08/22/2023 11:04 PM EDT [facility] Patient Name: MAYITO FORBES : 1985 Exam Date/Time: 08/22/2023 23:03 Procedure: XR HAND 3+ VIEWS LEFT Ordering Provider: LAINEZ JOSEPH Reason For Exam: HAND PAIN LEFT HAND 3 VIEWS CLINICAL INDICATION: HAND PAIN TECHNIQUE: 3 views of the left hand. COMPARISON: None. FINDINGS: No acute fracture or dislocation. Joint spaces maintained. Soft tissues grossly unremarkable. [facility] Joseph Kellogg MD - 08/22/2023 Patient Name: MAYITO FORBES : 1985 Exam Date/Time: 08/22/2023 23:03 Procedure: XR HAND 3+ VIEWS LEFT Ordering Provider: LAINEZ JOSEPH Reason For Exam: HAND PAIN LEFT HAND 3 VIEWS CLINICAL INDICATION: HAND PAIN TECHNIQUE: 3 views of the left hand. COMPARISON: None. FINDINGS: No acute fracture or dislocation. Joint spaces maintained. Soft tissues grossly unremarkable. IMPRESSION: 1. No acute osseous abnormality. Report Dictated on Electronically Signed By: Joseph Kellogg MD Electronically Signed Date/Time: 08/22/2023 11:04 PM EDT [facility] Radiology Study observation (narrative) Jovana Bartlett hammad XR Hand - left 3 ViewsOrdere d By: Joseph Kellogg on 08-22-2023 [facility] Work Phone: Laboratory - Drug toxicology Ordered By: Olena Gerber on 06-07-2023 Cannabinoids Screen (U) [Mass/Vol] Positive [facility] Comment on above: THC metabolites have been screened for by Immunoassay at a 50 ng/mL threshold. POSITIVE results are not confirmed by a more specific alternative method unless requested. If confirmation is needed, request confirmation under separate order. NOTE: These results are for medical treatment only. Analysis performed using non-forensic procedures. Laboratory - Drug toxicology Ordered By: Mark Estrella on 06-07-2023 Amphetamines Screen method >1000 ng/mL Ql (U) Negative [facility] Barbiturates Screen method >200 ng/mL Ql (U) [facility] Benzodiazepines Ql (U) Negative Yo [facility] Methadone Screen Ql (U) Negative S [facility] Opiates Screen Ql (U) Negative Sum [facility] oxyCODONE Ql (U) Negative [facility] Phencyclidine Ql (U) Negative [facility] No Panel InformationOrdered By: Olena Gerber on 06-07-2023 [facility] No Panel Informationon 06-[address] [place] [facility] NH Interval 168 ms [facility] QRS [place] [address] degrees [facility] QRSD Interval 72 ms [facility] QT Interval 336 ms [facility] QTC Interval 409 ms [facility] T Wave [place] degrees [facility] SINUS RHYTHM Compared to 05/28/2023- no signicant changes Electronically Signed On 06-07-2023 07:29:16 EST by James Neil James Gilliam MD - 06/07/2023 IMPRESSION: SINUS RHYTHM Compared to 05/28/2023- no signicant changes Electronically Signed On 06-07-2023 07:29:16 EST by James Neil [facility] No Panel InformationOrdered By: Mark Estrella on 06-07-2023 COCAINE METAB. SCREEN Negative [facility] The expected value f or all of the drugs listed above is Negative. The following drugs or drug groups have been screened for by Immunoassay at the following thresholds: Amphetamine class (1000 ng/mL) Barbiturates (200 ng/mL) Benzodiazepines (200 ng/mL) Cocaine (300 ng/mL) Methadone (300 ng/mL) Opiates (300 ng/mL) Oxycodone (100 ng/mL) PCP (25 ng/mL) NOTE: These results are for medical treatment only. Analysis performed using non-forensic procedures. POSITIVE results are NOT confirmed by a more specific alternative method unless requested. If confirmation is needed, request confirmation under separate order. [facility] Urinalysis complete panel (U )Ordered By: Kenton Montano on 06-07-2023 Bacteria LM.HPF (Urine sed) [#/Area] Negative Negative /HPF [facility] Bilirubin Ql (U) Negative Negative mg/dL [facility] Clarity (U) Clear Clear [facility] Color (U) Yellow Lt. Yellow [facility] Epithelial cells.squamous LM.HPF (Urine sed) [#/Area] 0-2 [facility] h Glucose Ql (U) Normal Normal (<70) mg/dL [facility] Hemoglobin Ql (U) Negative Negative mg/dL [facility] Interpretation and review of laboratory results Abnormal [facility] Ketones (U) [Mass/Vol] 40 mg/dL Abnormal Negative [facility] Leukocyte esterase Test strip Ql (U) Negative Negative Raina/uL [facility] Mucus LM.HPF (Urine sed) [#/Area] Few Negative /LPF [facility] Nitrite Ql (U) Negative Negative [facility] th pH (U) 7.0 [pH] 5.0 - 8.0 pH [facility] Protein (U) [Mass/Vol] 70 mg/dL Abnormal Negative [facility] RBC LM.HPF (Urine sed) [#/Area] 3-5 Abnormal [facility] Specific gravity (U) [Rel density] High 1.005 - 1.030 [facility] Urobilinogen (U) [Mass/Vol] Normal Normal (0-1) mg/dL [facility] WBC LM.HPF (Urine sed) [#/Area] 3-5 [facility] Vital signson 06-07-2023 Heart rate 89 /min bpm [facility] XR Chest Single viewon 06-07 1. Lines/Tubes/Devices/Milton dware: Leads noted. Please confirm position and function of any catheters or attempted catheters clinically. 2. Lungs: No convincing acute process.. Limited due to portable technique. Consider follow-up with PA and lateral chest for persistent symptoms. 3. Pleura: No significant effusion. No significant pneumothorax. 4. Heart and mediastinum: Limited due to technique. 5. Upper abdomen: No acute process seen. 6. Thorax:No acute bony process Report Dictated on Electronically Signed By: Darren Junior MD Electronically Signed Date/Time: 06/07/2023 1:20 AM EST [facility] 1985 [id number] Exam Date/Time: 06/07/2023 01:17 Procedure: XR CHEST 1 VIEW Ordering Provider: VILLALOBOS ADAM Reason For Exam: TACHYCARDIA EXAM TYPE: RADIOLOGIC EXAMINATION, CHEST, SINGLE VIEW FRONTAL (CXR SINGLE VIEW) EXAM DATE AND TIME: 06/07/2023 1:17 AM EST INDICATION: Tachycardia COMPARISON: 05/28/2023 TECHNIQUE: A single frontal view of the thorax was obtained and reviewed. Special views: None. [facility] Darren Junior MD - 06/07/2023 Patient Name: MAYITO FORBES : 1985 Exam Date/Time: 06/07/2023 01:17 Procedure: XR CHEST 1 VIEW Ordering Provider: VILLALOBOS ADAM Reason For Exam: TACHYCARDIA EXAM TYPE: RADIOLOGIC EXAMINATION, CHEST, SINGLE VIEW FRONTAL (CXR SINGLE VIEW) EXAM DATE AND TIME: 06/07/2023 1:17 AM EST INDICATION: Tachycardia COMPARISON: 05/28/2023 TECHNIQUE: A single frontal view of the thorax was obtained and reviewed. Special views: None. IMPRESSION: 1. Lines/Tubes/Devices/Milton dware: Leads noted. Please confirm position and function of any catheters or attempted catheters clinically. 2. Lungs: No convincing acute process.. Limited due to portable technique. Consider follow-up with PA and lateral chest for persistent symptoms. 3. Pleura: No significant effusion. No significant pneumothorax. 4. Heart and mediastinum: Limited due to technique. 5. Upper abdomen: No acute process seen. 6. Thorax:No acute bony process Report Dictated on Electronically Signed By: Darren Junior MD Electronically Signed Date/Time: 06/07/2023 1:20 AM EST [facility] Radiology Study observation (narrative) [facility] XR Chest Single viewOrdered By: Darren Junior on 06-07-2023 [facility] Work Phone: CBC W Auto Differential pane l (Bld)Ordered By: Jose Donald on 06-06-2023 Basophils (Bld) [#/Vol] 0.0 10*3/uL 0.0 - 0.2 10*3/uL [facility] Basophils/100 WBC (Bld) 0.1 % 0.0 - 2.0 % [facility] Eosinophils (Bld) [#/Vol] 0.0 10*3/uL 0.0 - 0.5 10*3/uL [facility] Eosinophils/100 WBC (Bld) 0.0 % Low 1.0 - 6.0 % [facility] Erythrocyte distribution width (RBC) [Ratio] 13.1 % 11.5 - 14.5 % [facility] Hematocrit (Bld) [Volume fraction] 53.9 % High 40.0 - 52.0 % [facility] Hemoglobin (Bld) [Mass/Vol] 18.8 g/dL High 13.0 - 18.0 g/dL [facility] Interpretation and review of laboratory results Abnormal [facility] Lymphocytes (Bld) [#/Vol] 0.4 10*3/uL Low 1.0 - 4.3 10*3/uL [facility] Lymphocytes/100 WBC (Bld) 2.6 % Low 20.0 - 40.0 % [facility] MCH (RBC) [Entitic mass] 31.1 pg 26. 0 - 34.0 pg [facility] MCHC (RBC) [Mass/Vol] 34.9 % 32.0 - 36.0 % [facility] MCV (RBC) [Entitic vol] 89.0 fL 80.0 - 98.0 fL [facility] Monocytes (Bld) [#/Vol] 0.4 10*3/uL 0.0 - 0.8 10*3/uL [facility] Monocytes/100 WBC (Bld) 2.9 % 2.0 - 10.0 % [facility] Neutrophils (Bld) [#/Vol] 12.9 10*3/uL High 1.8 - 7.0 10*3/uL [employer] [facility] Neutrophils/100 WBC (Bld) 94.4 % High 40.0 - 80.0 % [employer] [facility] Nucleated RBC/100 WBC (Bld) [Ratio] 0.4 % [employer] [facility] Platelet mean volume (Bld) [Entitic vol] 7.4 fL 7.4 - 12.4 fL [employer] [facility] Platelets (Bld) [#/Vol] 366 10*3/uL 140 - 440 10*3/uL [facility] RBC (Bld) [#/Vol] 6.06 10*6/uL High 4.40 - 5.9 0 10*6/uL [employer] [facility] WBC (Bld) [#/Vol] 13.6 10*3/uL High 3.6 - 10.7 10*3/uL [facility] CT Abdomen and Pelvis W cont rast Tyrell 06-06-2023 1. No acute findings. Report Dictated on Electronically Signed By: Joseph Kellogg MD Electronically Signed Date/Time: 06/06/2023 9:56 PM EST [employer] Patient Name: MAYITO FORBES : 1985 Exam Date/Time: 06/06/2023 21:50 Procedure: CT ABDOMEN PELVIS W CONTRAST Ordering Provider: VILLALOBOS ADAM Reason For Exam: Abdominal pain, acute, nonlocalized CT ABDOMEN AND PELVIS WITH CONTRAST CLINICAL INDICATION: Abdominal pain, acute, nonlocalized TECHNIQUE: CT scan of the abdomen and pelvis, with IV contrast. Multiplanar reformations. Dose reduction was employed with automated exposure control. COMPARISON: None. FINDINGS: Abdomen: Visualized lung bases grossly unremarkable. No radiopaque gallstones. Liver without significant abnormality. Spleen without significant abnormality. Pancreas without significant abnormality. Kidneys without significant abnormality. Possible subcentimeter, right renal cyst. Adrenal glands without significant abnormality. Pelvis: Bowel grossly unremarkable. Appendix within normal limits. No significant, free peritoneal fluid or apparent adenopathy. Abdominal aorta is nonaneurysmal. Axial skeleton grossly intact. [facility] Joseph Kellogg MD - 06/06/2023 Patient Name: MAYITO FORBES : 1985 Exam Date/Time: 06/06/2023 21:50 Procedure: CT ABDOMEN PELVIS W CONTRAST Ordering Provider: VILLALOBOS ADAM Reason For Exam: Abdominal pain, acute, nonlocalized CT ABDOMEN AND PELVIS WITH CONTRAST CLINICAL INDICATION: Abdominal pain, acute, nonlocalized TECHNIQUE: CT scan of the abdomen and pelvis, with IV contrast. Multiplanar reformations. Dose reduction was employed with automated exposure control. COMPARISON: None. FINDINGS: Abdomen: Visualized lung bases grossly unremarkable. No radiopaque gallstones. Liver without significant abnormality. Spleen without significant abnormality. Pancreas without significant abnormality. Kidneys without significant abnormality. Possible subcentimeter, right renal cyst. Adrenal glands without significant abnormality. Pelvis: Bowel grossly unremarkable. Appendix within normal limits. No significant, free peritoneal fluid or apparent adenopathy. Abdominal aorta is nonaneurysmal. Axial skeleton grossly intact. IMPRESSION: 1. No acute findings. Report Dictated on Electronically Signed By: Joseph Kellogg MD Electronically Signed Date/Time: 06/06/2023 9:56 PM EST [facility] Radiology Study observation (narrative) [facility] CT Abdomen and Pelvis W cont rast IVOrdered By: Joseph Kellogg on 06-06-2023 [facility] Work Phone: Comprehensive metabolic 1998 panelon 06-06-2023 Albumin [Mass/Vol] 4.9 g/dL 3.5 - 5.0 g/dL [facility] ALP [Catalytic activity/Vol] 92 U/L 38 - 126 U/L [facility] ALT [Catalytic activity/Vol] 33 U/L 0 - 49 U/L [facility] Anion gap [Moles/Vol] 15 mmol/L High 3 - 13 mmol/L [facility] AST [Catalytic activity/Vol] 28 U/L 15 - 46 U/L [facility] Bilirubin [Mass/Vol] 0.6 mg/dL 0.2 - 1 .3 mg/dL [facility] Calcium [Mass/Vol] 9.9 mg/dL 8.4 - 10. 4 mg/dL [facility] Chloride [Moles/Vol] 107 mmol/L 98 - 10 7 mmol/L [facility] CO2 [Moles/Vol] 18 mmol/L Low 22 - 30 mmol/L [facility] Creatinine [Mass/Vol] 0.77 mg/dL 0.66 - 1.25 mg/dL [facility] GFR/1.73 sq M.predicted MDRD (S/P/Bld) [Vol rate/Area] - PINF [facility] Comment on above: Calculation based on the Chronic Kidney Disease Epidemiology Collaboration (CKD-EPI) equation refit without adjustment for race Glucose [Mass/Vol] 132 mg/dL High 70 - 100 mg/dL [facility] Potassium [Moles/Vol] 4.2 mmol/L 3.5 - 5.1 mmol/L [facility] Protein [Mass/Vol] 8.8 g/dL High 6.3 - 8.2 g/dL [facility] Sodium [Moles/Vol] 140 mmol/L 135 - 145 mmol/L [facility] Urea nitrogen [Mass/Vol] 14 mg/dL 9 - 20 mg/dL [facility] Laboratory - Chemistry and C hemistry - challengeon 06-06-2023 Troponin I.cardiac [Mass/Vol] ng/mL NINF - 0.034 ng/mL [facility] Lipase [Catalytic activity/Vol] 22 U/L Low 23 - 300 U/L [facility] Magnesium [Mass/Vol] 2.0 mg/dL 1.6 - 2 .3 mg/dL [facility] Laboratory - Microbiology an d Antimicrobial susceptibilityon 06-06-2023 FLUAV RNA KATLYN+probe Ql (Resp) Not detected Not Detected [facility] FLUBV RNA KATLYN+probe Ql (Resp) Not detected Not Detected [facility] RSV RNA KATLYN+probe Ql (Resp) Not detected Not Detected [facility] SARS-CoV-2 (COVID-19) RNA KATLYN+probe Ql (Resp) Not detected Not Detected [facility] SARS-CoV-2 (COVID-19) RNA KATLYN+probe Ql (Unsp spec) Methodology: real-time, RT-PCR The SARS-CoV-2, Flu A/B, and RSV Combo assay is intended for in vitro diagnostic use under the FDA Emergency Use Authorization (EUA). This test has not been FDA cleared or approved. In compliance with this authorization, please visit www.fda.gov/media/78052 5/download or www.fda.gov/media/93643 6/download to access the applicable information sheets. [facility] Magnesium [Mass/Vol]on 06-06 Interpretation and review of laboratory results Normal [facility] No Panel Informationon 06-06 Interpretation and review of laboratory results Abnormal [facility] SARS-CoV-2, Flu A/B, and RSV Comboon 06-06-2023 Interpretation and review of laboratory results Normal [facility] Troponin I.cardiac [Mass/Vol ]on 06-06-2023 Interpretation and review of laboratory results Normal [facility] Patients with high levels of Biotin oral intake (ie >5 mg/day) may have falsely decreased Troponin levels. [facility] CBC W Auto Differential pane l (Bld)Ordered By: Mark Estrella on 05-28-2023 Basophils (Bld) [#/Vol] 0.0 10*3/uL 0.0 - 0.2 10*3/uL [facility] Basophils/100 WBC (Bld) 0.5 % 0.0 - 2.0 % [facility] Eosinophils (Bld) [#/Vol] 0.1 10*3/uL 0.0 - 0.5 10*3/uL [facility] Eosinophils/100 WBC (Bld) 1.6 % 1.0 - 6.0 % [facility] Erythrocyte distribution width (RBC) [Ratio] 12.7 % 11.5 - 14.5 % [facility] Hematocrit (Bld) [Volume fraction] 47.9 % 40.0 - 52.0 % [facility] Hemoglobin (Bld) [Mass/Vol] 16.9 g/dL 13.0 - 18.0 g/dL [facility] Interpretation and review of laboratory results Abnormal [facility] Lymphocytes (Bld) [#/Vol] 1.5 10*3/uL 1.0 - 4.3 10*3/uL [facility] Lymphocytes/100 WBC (Bld) 26.3 % 20.0 - 40.0 % [facility] MCH (RBC) [Entitic mass] 31.6 pg 26. 0 - 34.0 pg [facility] MCHC (RBC) [Mass/Vol] 35.3 % 32.0 - 36.0 % [facility] MCV (RBC) [Entitic vol] 89.3 fL 80.0 - 98.0 fL [employer] Monocytes (Bld) [#/Vol] 0.4 10*3/uL 0.0 - 0.8 10*3/uL [facility] Monocytes/100 WBC (Bld) 7.0 % 2.0 - 10.0 % [employer] [facility] Neutrophils (Bld) [#/Vol] 3.8 10*3/uL 1.8 - 7.0 10*3/uL [facility] Neutrophils/100 WBC (Bld) 64.6 % 40.0 - 80.0 % [employer] [facility] Nucleated RBC/100 WBC (Bld) [Ratio] 0.2 % [facility] Platelet mean volume (Bld) [Entitic vol] 6.9 fL Low 7.4 - 12.4 fL [facility] Platelets (Bld) [#/Vol] 291 10*3/uL 140 - 440 10*3/uL [facility] RBC (Bld) [#/Vol] 5.36 10*6/uL 4.40 - 5.9 0 10*6/uL [facility] WBC (Bld) [#/Vol] 5.9 10*3/uL 3.6 - 10.7 10*3/uL [facility] CT Head WO contraston 2022 No acute intracranial abnormalities. Report Dictated on Electronically Signed By: Davie Perez MD Electronically Signed Date/Time: 05/28/2023 1:12 AM EST [employer] Patient Name: MAYITO FORBES : 1985 Exam Date/Time: 05/28/2023 00:39 Procedure: CT HEAD WO IV CONTRAST Ordering Provider: KNOX KATHRYN Reason For Exam: AMS after narcan CT HEAD WITHOUT CONTRAST CLINICAL HISTORY: AMS after narcan COMPARISON: None TECHNIQUE: Helical CT of the brain without contrast. Dose reduction was employed with automated exposure control. FINDINGS: Acute Findings: No hemorrhage, mass, or infarct. Chronic Changes: None identified. Ventricles and sulci: Within normal limits for age. Other: The skull, included paranasal sinuses and orbits are normal. [employer] Davie Perez M D - 05/28/2023 Patient Name: MAYITO FORBES : 1985 [facility]#: [id number] Exam Date/Time: 05/28/2023 00:39 Procedure: CT HEAD WO IV CONTRAST Ordering Provider: KNOX KATHRYN Reason For Exam: AMS after narcan CT HEAD WITHOUT CONTRAST CLINICAL HISTORY: AMS after narcan COMPARISON: None TECHNIQUE: Helical CT of the brain without contrast. Dose reduction was employed with automated exposure control. FINDINGS: Acute Findings: No hemorrhage, mass, or infarct. Chronic Changes: None identified. Ventricles and sulci: Within normal limits for age. Other: The skull, included paranasal sinuses and orbits are normal. IMPRESSION: No acute intracranial abnormalities. Report Dictated on Electronically Signed By: Davie Perez MD Electronically Signed Date/Time: 05/28/2023 1:12 AM EST [facility] Radiology Study observation (narrative) [facility] Comprehensive metabolic 1998 panelon 05-28-2023 Albumin [Mass/Vol] 4.6 g/dL 3.5 - 5.0 g/dL [facility] ALP [Catalytic activity/Vol] 84 U/L 38 - 126 U/L [facility] ALT [Catalytic activity/Vol] 39 U/L 0 - 49 U/L [facility] Anion gap [Moles/Vol] 15 mmol/L High 3 - 13 mmol/L [facility] AST [Catalytic activity/Vol] 40 U/L 15 - 46 U/L [facility] Bilirubin [Mass/Vol] 0.7 mg/dL 0.2 - 1 .3 mg/dL [facility] Calcium [Mass/Vol] 9.6 mg/dL 8.4 - 10. 4 mg/dL [facility] Chloride [Moles/Vol] 95 mmol/L Low 98 - 10 7 mmol/L [facility] CO2 [Moles/Vol] 27 mmol/L 22 - 30 mmol/L [facility] Creatinine [Mass/Vol] 0.98 mg/dL 0.66 - 1.25 mg/dL [facility] GFR/1.73 sq M.predicted MDRD (S/P/Bld) [Vol rate/Area] - PINF [facility] Comment on above: Calculation based on the Chronic Kidney Disease Epidemiology Collaboration (CKD-EPI) equation refit without adjustment for race Glucose [Mass/Vol] 220 mg/dL High 70 - 100 mg/dL [facility] Potassium [Moles/Vol] 3.5 mmol/L 3.5 - 5.1 mmol/L [facility] Protein [Mass/Vol] 7.8 g/dL 6.3 - 8.2 g/dL [facility] Sodium [Moles/Vol] 137 mmol/L 135 - 145 mmol/L [facility] Urea nitrogen [Mass/Vol] 9 mg/dL 9 - 20 mg/dL [facility] Ethanol (Bld) [Mass/Vol]on Ethanol [Mass/Vol] g/dL 0.000 - 0.010 g/dL [facility] Laboratory - Chemistry and C hemistry - challengeon 05-28-2023 CK.MB [Mass/Vol] 5.5 ng/mL High 0.0 - 4.4 ng/mL [facility] Comment on above: Both the CKMB and th e Relative Index must be abnormal for clinical significance. CK [Catalytic activity/Vol] 323 U/L High 30 - 170 U/L [facility] Glucose [Mass/Vol] 242 mg/dL High 70 - 100 mg/dL [facility] Laboratory - Drug toxicology Ordered By: Kenton Montano on 05-28-2023 Amphetamines Screen method >1000 ng/mL Ql (U) Positive [facility] Barbiturates Screen method >200 ng/mL Ql (U) Negative [facility] Benzod[facility]ines Ql (U) Negative [facility] Methadone Screen Ql (U) Negative S [facility] Opiates Screen Ql (U) Negative [facility] oxyCODONE Ql (U) Negative [facility] Phencyclidine Ql (U) Negative [facility] Laboratory - Drug toxicology on 05-28-2023 Acetaminophen [Mass/Vol] ug/mL Low 10. 0 - 30.0 ug/mL [facility] Salicylates [Mass/Vol] mg/dL NINF - 20.0 mg/dL [facility] No Panel InformationOrdered By: Bharat Pennington on 05-28-[address] 49 [address] [facility] Work Phone: NH Interval 188 ms [facility] Work Phone: QRS [place] 73 degrees [facility] Work Phone: QRSD Interval 74 ms [facility] [employer] Work Phone: QT Interval 376 ms [facility] Work Phone: QTC Interval 406 ms [facility] Work Phone: T Wave [place] 40 degrees [facility] Work Phone: [facility] Work Phone: No Panel Informationon 05-28 SINUS RHYTHM No prior EKG for comparison Electronically Signed On 05-28-2023 10:03:35 EST by Bharat Pennington Bharat Gant MD - 05/28/2023 IMPRESSION: SINUS RHYTHM No prior EKG for comparison Electronically Signed On 05-28-2023 10:03:35 EST by Bharat Pennington [facility] Interpretation and review of laboratory results Abnormal [facility] RELATIVE INDEX 1.7 0.0 - 3.0 [facility] Interpretation and review of laboratory results Abnormal [facility] Interpretation and review of laboratory results Normal [facility] Interpretation and review of laboratory results Abnormal [facility] Performed by: [facility], [address] [place] [address] CLIA ID: [id number] [facility] No Panel InformationOrdered By: Kenton Montano on 05-28-2023 COCAINE METAB. SCREEN Negative [facility] The expected value f or all of the drugs listed above is Negative. The following drugs or drug groups have been screened for by Immunoassay at the following thresholds: Amphetamine class (1000 ng/mL) Barbiturates (200 ng/mL) Benzodiazepines (200 ng/mL) Cocaine (300 ng/mL) Methadone (300 ng/mL) Opiates (300 ng/mL) Oxycodone (100 ng/mL) PCP (25 ng/mL) NOTE: These results are for medical treatment only. Analysis performed using non-forensic procedures. POSITIVE results are NOT confirmed by a more specific alternative method unless requested. If confirmation is needed, request confirmation under separate order. [facility] Vital signsOrdered By: Juan Pennington on 05-28-2023 Heart rate 70 /min bpm [facility] Work Phone: XR Chest Single viewon 05-28 Low lung volumes with mild bronchitis and subtle groundglass opacities which could be due to atelectasis or viral infection. Report Dictated on Electronically Signed By: Davie Perez MD Electronically Signed Date/Time: 05/28/2023 1:00 AM [facility] Patient Name: MAYITO FORBES : 1985 Exam Date/Time: 05/28/2023 00:31 Procedure: XR CHEST 1 VIEW Ordering Provider: KNOX KATHRYN Reason For Exam: ALTERED MENTAL STATUS AP CHEST X-RAY CLINICAL INDICATION: ALTERED MENTAL STATUS TECHNIQUE: AP portable x-ray of the chest. COMPARISON: None FINDINGS: Heart/Mediastinum: Within normal limits Lungs: Low lung volumes. Mild bronchial wall thickening and subtle groundglass opacities bilaterally. No pneumothorax or pleural effusion. No focal airspace consolidation. Bones: Unremarkable [facility] Davie Perez M D - 05/28/2023 Patient Name: MAYITO FORBES : 1985 Exam Date/Time: 05/28/2023 00:31 Procedure: XR CHEST 1 VIEW Ordering Provider: KNOX KATHRYN Reason For Exam: ALTERED MENTAL STATUS AP CHEST X-RAY CLINICAL INDICATION: ALTERED MENTAL STATUS TECHNIQUE: AP portable x-ray of the chest. COMPARISON: None FINDINGS: Heart/Mediastinum: Within normal limits Lungs: Low lung volumes. Mild bronchial wall thickening and subtle groundglass opacities bilaterally. No pneumothorax or pleural effusion. No focal airspace consolidation. Bones: Unremarkable IMPRESSION: Low lung volumes with mild bronchitis and subtle groundglass opacities which could be due to atelectasis or viral infection. Report Dictated on Electronically Signed By: Davie Perez MD Electronically Signed Date/Time: 05/28/2023 1:00 AM [facility] Radiology Study observation (narrative) [facility] Chest Single viewOrdered By: Davie Perez on 05-28-2023 [facility] Work Phone: No Panel Informationon 03-08 Alex Santiago MD 03/08/2023 8:11 PM Incision and Drainage Performed by: Alex Santiago MD Authorized by: Alex Santiago MD Consent: Consent obtained: Verbal Consent given by: Patient Risks, benefits, and alternatives were discussed: yes Risks discussed: Bleeding Alternatives discussed: No treatment [place] protocol: Procedure explained and questions answered to patient or proxy's satisfaction: yes Relevant documents present and verified: yes Test results available : no Imaging studies available: no Required blood products, implants, devices, and special equipment available: no Site/side marked: yes Immediately prior to procedure, a time out was called: yes Patient identity confirmed: Verbally with patient Location: Type: External thrombosed hemorrhoid Size: 1 x 0.5 cm Location: rectum. Sedation: Sedation type: None Anesthesia: Anesthesia method: Local infiltration Local anesthetic: Lidocaine 1% WITH epi Procedure type: Complexity: Simple Procedure details: Ultrasound guidance: no Needle aspiration: no Incision types: Elliptical Incision depth: Dermal Wound management: Probed and deloculated Drainage: Bloody Drainage amount: Scant Wound treatment: Wound left open Packing materials: None Post-procedure details: Procedure completion: Tolerated [facility] Foreign Body Removal - Embed dedon 02-23-2023 Alex Santiago MD 02/23/2023 5:53 PM Foreign Body Removal - Embedded Performed by: Alex Santiago MD Authorized by: Alex Santiago MD Consent: Consent obtained: Verbal Consent given by: Patient Risks, benefits, and alternatives were discussed: yes Risks discussed: Bleeding and infection Alternatives discussed: No treatment and alternative treatment [place] protocol: Procedure explained and questions answered to patient or proxy's satisfaction: yes Relevant documents present and verified: yes Test results available: yes Required blood products, implants, devices, and special equipment available: no Site/side marked: yes Immediately prior to procedure, a time out was called: yes Patient identity confirmed: Verbally with patient Location: Location: Right ring finger. Depth: Intradermal Tendon involvement: None Pre-procedure details: Imaging: X-ray Neurovascular status: intact Preparation: Patient was prepped and draped in usual sterile fashion Anesthesia: Anesthesia method: Local infiltration Local anesthetic: Lidocaine 1% w/o epi Procedure type: Procedure complexity: Simple Procedure details: Dissection of underlying tissues: no Bloodless field: no Removal mechanism: Hemostat Foreign bodies recovered: 1 Intact foreign body removal: yes Post-procedure details: Neurovascular status: intact Confirmation: No additional foreign bodies on visualization Skin closure: None Dressing: Open (no dressing) Procedure completion: [facility] XR Hand - right 3 Viewson [place] within the left fourth digit soft tissues. No fracture or dislocation. Report Dictated on Electronically Signed By: Chintan Todd MD Electronically Signed Date/Time: 02/23/2023 6:12 PM EDT [facility] Patient Name: MAYITO FORBES : 1985 Exam Date/Time: 02/23/2023 17:45 Procedure: XR HAND 3+ VIEWS RIGHT Ordering Provider: SANTIAGO VIJAY Reason For Exam: TRAUMA RIGHT HAND: CLINICAL INDICATION: Pain, trauma. TECHNIQUE: PA, Lat, and oblique COMPARISON: None. FINDINGS: [place] within the fourth digit soft tissues of the distal phalanx. There is no fracture or dislocation. No arthritic change is identified. No bone lesion is identified. There is no soft tissue abnormality. [facility] Chintan Todd MD - 02/23/2023 Patient Name: MAYITO FORBES : 1985 Exam Date/Time: 02/23/2023 17:45 Procedure: XR HAND 3+ VIEWS RIGHT Ordering Provider: SANTIAGO VIJAY Reason For Exam: TRAUMA RIGHT HAND: CLINICAL INDICATION: Pain, trauma. TECHNIQUE: PA, Lat, and oblique COMPARISON: None. FINDINGS: [place] within the fourth digit soft tissues of the distal phalanx. There is no fracture or dislocation. No arthritic change is identified. No bone lesion is identified. There is no soft tissue abnormality. IMPRESSION: [place] within the left fourth digit soft tissues. No fracture or dislocation. Report Dictated on Electronically Signed By: Chintan Todd MD Electronically Signed Date/Time: 02/23/2023 6:12 PM EDT [facility] Radiology Study observation (narrative) [facility] XR Hand - right 3 ViewsOrder ed By: Chintan Todd on 02-23-2023 [facility] Work Phone: Culture, urineOrdered By: Ashley Buck on 09-30-2022 Bacteria identified Cx Nom (U) Positive [facility] Basophil percentageOrdered B y: Lamberto Buck on 09-28-2022 Basophil percentage 0 SEEN /hpf 0-5 [facility] C. trachomatis DNA KATLYN+probe Ql (Unsp spec) Negative Negative [facility] Bilirubin Test strip Ql (U)O rdered By: Lamberto Buck on 09-28-2022 Bilirubin Ql (U) Negative Negative [facility] Ketones Test strip Ql (U)Ord ered By: Lamberto Buck on 09-28-2022 Ketones Ql (U) 5 mg/dl Negative [facility] Laboratory - Chemistry and C hemistry - challengeon 09-28-2022 Bilirubin Ql (U) Negative [facility] Glucose Ql (U) Negative [facility] Ketones Ql (U) Negative [facility] pH (U) 8.5 [pH] [facility] Specific gravity (U) [Rel density] 1.010 [facility] Urobilinogen (U) [Mass/Vol] 0.9646547 mg/dL [facility] Laboratory - Hematology and Cell countson 09-28-2022 Hemoglobin Ql (U) Negative [facility] Laboratory - Specimen inform ationon 09-28-2022 Clarity (U) Clear [facility] Color (U) DARK YELLOW [facility] Laboratory - Urinalysison Nitrite Ql (U) Negative [facility] Protein Ql (U) Trace [facility] Mucus LM Ql (Urine sed)Order ed By: Lamebrto Buck on 09-28-2022 Mucus Ql (Urine sed) 0 SEEN /hpf [facility] Neisseria gonorrhoeae detect ion by PCROrdered By: Lamberto Buck on 09-28-2022 N. gonorrhoeae DNA KATLYN+probe Ql (Cervical mucus) Negative Negative [facility] Nitrite Test strip Ql (U)Ord ered By: Lamberto Buck on 09-28-2022 Nitrite Ql (U) Negative Negative [facility] No Panel Informationon 09-28 Urine Leukocytes Negatve [facility] Urine Non-Hemolyzed Blood [facility] Protein Test strip Ql (U)Ord ered By: Lamberto Buck on 09-28-2022 Protein Ql (U) Negative Negative [facility] Squamous epithelial cells de tection in urine sediment by light microscopyOrdered By: Lamberto Buck on 09-28-2022 Epithelial cells.squamous LM Ql (Urine sed) 0 SEEN /hpf 0-5 [facility] Urine blood detectionOrdered By: Lamberto Buck on 09-28-2022 RBC Ql (U) Negative Negative [facility] RBC Ql (U) 0 SEEN /hpf 0-5 [facility] Urine clarityOrdered By: Rojas Buck on 09-28-2022 Clarity (U) Clear Clear [facility] Urine color determinationOrd ered By: Lamberto Buck on 09-28-2022 Color (U) Yellow Yellow [facility] Urine glucose detectionOrder ed By: Lamberto Buck on 09-28-2022 Glucose Ql (U) Normal mg/dl Normal [facility] Urine leukocyte esterase det ection by dipstickOrdered By: Lamberto Buck on 09-28-2022 Leukocyte esterase Test strip Ql (U) 25 /ul Negative [facility] Urine pHOrdered By: Lamberto andrade on 09-28-2022 pH (U) 8.0 [pH] 5.0 - 8.0 [facility] Urine sediment bacteria coun t by microscopy (number/high power field)Ordered By: Lamberto Buck on 09-28-2022 Bacteria LM.HPF (Urine sed) [#/Area] 0 /[HPF] None Seen [facility] Urine specific gravity measu rementOrdered By: Lamberto Buck on 09-28-2022 Specific gravity (U) [Rel density] 1.020 1.002-1.030 [facility] Urobilinogen Auto test strip Ql (U)Ordered By: Lamberto Buck on 09-28-2022 Urobilinogen Ql (U) Normal mg/dl Normal [facility] Phosphatidylethanol Confirma tion, Bloodon 06-04-2022 [place] - PETH 16:0/18:1 (POPETH) BY LC MS/MS <10 [facility] Comment on above: Phosphatidylethanol (PEth) homologues result interpretation PEth 16:0/18:1 (POPEth) Less than 10 ng/mL: Not detected 10 - 19 ng/mL: Abstinence or light alcohol consumption (<2 drinks per day for several days a week) 20 - 200 ng/mL: Moderate alcohol consumption (up to 4 drinks per day for several days a week) Greater than 200 ng/mL: Heavy alcohol consumption or chronic alcohol use (at least 4 drinks per day several days a week) (Reference: Janneth Cheng and Briana Denney 2018 J. Forensic Sci) [place] - PETH 16:0/18:2 (PLPETH) BY LC MS/MS <10 [facility] Comment on above: PEth 16:0/18:2 (PLPE th) Reference ranges are not well established [place] - PETH INTERPRETATION Negative [facility] Comment on above: ADDITIONAL INFORMATION This report is intended for use in clinical monitoring and management of patients. It is not intended for use in employment-related testing. This test was developed and its performance characteristics determined by [facility] in a manner consistent with CLIA requirements. This test has not been cleared or approved by the U.S. Food and Drug Administration. Test Performed by: [facility] - [address] [address] [place]: Mario Gupta M.D. Ph.D.; CLIA# [id number] [facility] Basic metabolic 2000 panelon 06-03-2022 Anion gap [Moles/Vol] 17 mmol/L 10 - 2 0 mmol/L [facility] Calcium [Mass/Vol] 9.1 mg/dL 8.4 - 10. 2 mg/dL [facility] Chloride [Moles/Vol] 109 mmol/L High 98 - 10 8 mmol/L [facility] Creatinine [Mass/Vol] 0.66 mg/dL 0.50 - 1.30 mg/dL [facility] GFR/1.73 sq M.predicted CKD-EPI (S/P/Bld) [Vol rate/Area] 125 - PINF [facility] Comment on above: Estimated GFR was ca lculated using the 2020 CKD-EPI creatinine equation. Glucose [Mass/Vol] 106 mg/dL High 65 - 99 mg/dL [facility] HCO3 [Moles/Vol] 21 mmol/L 21 - 32 mmol/L [facility] Interpretation and review of laboratory results Abnormal [facility] Potassium [Moles/Vol] 3.6 mmol/L 3.5 - 5.1 mmol/L [facility] Sodium [Moles/Vol] 143 mmol/L 135 - 145 mmol/L [facility] Urea nitrogen [Mass/Vol] 7 mg/dL Low 8 - 25 mg/dL [facility] Urea nitrogen/Creatinine [Mass ratio] 10.6 mg/mg 10.0 - 20.0 [facility] has implemented the eGFR calculation approach that does not have a coefficient for race that conforms to the NKF-ASN Task Force Recommendations. [facility] CBC Auto Differentialon Basophils (Bld) [#/Vol] 0.03 10*3/uL [facility] Basophils/100 WBC (Bld) 0.3 % [facility] Eosinophils (Bld) [#/Vol] 0.02 10*3/uL [facility] Eosinophils/100 WBC (Bld) 0.2 % [facility] Erythrocyte distribution width (RBC) [Entitic vol] 13.0 % 11.6 - 14.8 % [facility] Hematocrit (Bld) [Volume fraction] 40.3 % Low 41.0 - 53.0 % [facility] Hemoglobin (Bld) [Mass/Vol] 14.2 g/dL 13.5 - 17.5 g/dL [facility] Immature granulocytes (Bld) [#/Vol] 0.04 10*3/uL [facility] Immature granulocytes/100 WBC (Bld) 0.40 % [facility] Comment on above: The IG parameter is the percentage of metamyelocytes, myelocytes and promyelocytes. An immature granulocyte count (IG) of 1% or more suggests the possibility of infection, an IG count of 3% is very likely related to an infection. Interpretation and review of laboratory results Abnormal [facility] Lymphocytes (Bld) [#/Vol] 1.47 10*3/uL [facility] Lymphocytes/100 WBC (Bld) 15.1 % [facility] MCH (RBC) [Entitic mass] 28.8 pg 26. 0 - 34.0 pg [facility] MCHC (RBC) [Mass/Vol] 35.2 g/dL 31.0 - 37.0 g/dL [facility] MCV (RBC) [Entitic vol] 81.7 fL 80.0 - 100.0 fL [facility] Monocytes (Bld) [#/Vol] 0.72 10*3/uL [facility] Monocytes/100 WBC (Bld) 7.4 % [facility] Neutrophils (Bld) [#/Vol] 7.48 10*3/uL High [facility] Neutrophils/100 WBC (Bld) 76.6 % [facility] Nucleated RBC (Bld) [#/Vol] 0.00 10*3/uL [facility] Nucleated RBC/100 WBC (Bld) [Ratio] 0.0 % [facility] Platelet mean volume (Bld) [Entitic vol] 9.3 fL Low 9.4 - 12.4 fL [facility] Platelets (Bld) [#/Vol] 309 10*3/uL [facility] RBC (Bld) [#/Vol] 4.93 10*6/uL [facility] WBC (Bld) [#/Vol] 9.76 10*3/uL [facility] Magnesium Levelon 06-03-2022 Magnesium [Mass/Vol] 2.2 mg/dL 1.6 - 2 .4 mg/dL [facility] Magnesium [Mass/Vol]on 06-03 Interpretation and review of laboratory results Normal [facility] CBC Auto Differentialon Basophils (Bld) [#/Vol] 0.03 10*3/uL [facility] Basophils/100 WBC (Bld) 0.3 % [facility] Eosinophils (Bld) [#/Vol] 0.03 10*3/uL [facility] Eosinophils/100 WBC (Bld) 0.3 % [facility] Erythrocyte distribution width (RBC) [Entitic vol] 12.8 % 11.6 - 14.8 % [facility] Hematocrit (Bld) [Volume fraction] 38.4 % Low 41.0 - 53.0 % [facility] Hemoglobin (Bld) [Mass/Vol] 13.4 g/dL Low 13.5 - 17.5 g/dL [facility] Immature granulocytes (Bld) [#/Vol] 0.05 10*3/uL [facility] Immature granulocytes/100 WBC (Bld) 0.40 % [facility] Comment on above: The IG parameter is the percentage of metamyelocytes, myelocytes and promyelocytes. An immature granulocyte count (IG) of 1% or more suggests the possibility of infection, an IG count of 3% is very likely related to an infection. Interpretation and review of laboratory results Abnormal [facility] Lymphocytes (Bld) [#/Vol] 1.30 10*3/uL [facility] Lymphocytes/100 WBC (Bld) 11.5 % [facility] MCH (RBC) [Entitic mass] 28.5 pg 26. 0 - 34.0 pg [facility] MCHC (RBC) [Mass/Vol] 34.9 g/dL 31.0 - 37.0 g/dL [facility] MCV (RBC) [Entitic vol] 81.5 fL 80.0 - 100.0 fL [facility] Monocytes (Bld) [#/Vol] 0.63 10*3/uL [facility] Monocytes/100 WBC (Bld) 5.6 % [facility] Neut[facility]ils (Bld) [#/Vol] 9.29 10*3/uL High [facility] Neutrophils/100 WBC (Bld) 81.9 % [facility] Nucleated RBC (Bld) [#/Vol] 0.00 10*3/uL [facility] Nucleated RBC/100 WBC (Bld) [Ratio] 0.0 % [facility] Platelet mean volume (Bld) [Entitic vol] 8.8 fL Low 9.4 - 12.4 fL [facility] Platelets (Bld) [#/Vol] 308 10*3/uL [facility] RBC (Bld) [#/Vol] 4.71 10*6/uL [facility] ealth WBC (Bld) [#/Vol] 11.33 10*3/uL [facility] CPK NO MBon 06-02-2022 CK [Catalytic activity/Vol] 35 U/L Low 60 - 225 U/L [facility] CRP, Inflammationon 06-02-19 CRP [Mass/Vol] 7.8 mg/L NINF - 10.0 mg/L [facility] Comprehensive metabolic 2000 panelon 06-02-2022 Albumin [Mass/Vol] 3.0 g/dL Low 3.2 - 5.2 g/dL [facility] ALP [Catalytic activity/Vol] 88 U/L 40 - 140 U/L [facility] ALT [Catalytic activity/Vol] 19 U/L 14 - 65 U/L [facility] Anion gap [Moles/Vol] 15 mmol/L 10 - 2 0 mmol/L [facility] AST [Catalytic activity/Vol] 16 U/L 0 - 45 U/L [facility] Bilirubin [Mass/Vol] 0.6 mg/dL 0.0 - 1 .3 mg/dL [facility] Calcium [Mass/Vol] 9.1 mg/dL 8.4 - 10. 2 mg/dL [facility] Chloride [Moles/Vol] 109 mmol/L High 98 - 10 8 mmol/L [facility] Creatinine [Mass/Vol] 0.62 mg/dL 0.50 - 1.30 mg/dL [facility] GFR/1.73 sq M.predicted CKD-EPI (S/P/Bld) [Vol rate/Area] 127 - PINF [facility] Comment on above: Estimated GFR was ca lculated using the 2020 CKD-EPI creatinine equation. Glucose [Mass/Vol] 90 mg/dL 65 - 99 mg/dL [facility] HCO3 [Moles/Vol] 19 mmol/L Low 21 - 32 mmol/L [facility] Interpretation and review of laboratory results Abnormal [facility] Potassium [Moles/Vol] 3.1 mmol/L Low 3.5 - 5.1 mmol/L [facility] Protein [Mass/Vol] 7.0 g/dL 6.0 - 8.0 g/dL [facility] Sodium [Moles/Vol] 140 mmol/L 135 - 145 mmol/L [facility] Urea nitrogen [Mass/Vol] 9 mg/dL 8 - 25 mg/dL [facility] Urea nitrogen/Creatinine [Mass ratio] 14.5 mg/mg 10.0 - 20.0 [facility] has implemented the eGFR calculation approach that does not have a coefficient for race that conforms to the NKF-ASN Task Force Recommendations. [facility] Drugs of Abuse Screen, Urine on 06-02-2022 Amphetamines Ql (U) Not detected None Detected [facility] Comment on above: Urine Amphetamine Cu toff: < 1000 ng/mL = None Detected Barbiturates Screen Ql (U) Not detected None Detected [facility] Comment on above: Urine Barbiturates C utoff: < 200 ng/mL = None Detected Benzodiazepines Ql (U) Not detected None Detected [facility] Comment on above: Urine Benzodiazepine Cutoff: < 200 ng/mL = None Detected Buprenorphine Ql (U) Not detected None Detected [facility] Comment on above: Urine Buprenorphine Cutoff: < 5 ng/mL = None Detected Cannabinoids Screen Ql (U) Not detected None Detected [facility] Comment on above: Urine Cannabinoids C utoff: < 50 ng/mL = None Detected Cocaine Ql (U) Not detected None Detected [facility] Comment on above: Urine Cocaine Cutoff : < 300 ng/mL = None Detected fentaNYL+Norfentanyl Screen Ql (U) Positive Abnormal None Detected [facility] Comment on above: Urine Fentanyl Cutof f: < 1 ng/mL = None Detected Interpretation and review of laboratory results Abnormal [facility] Methadone Screen Ql (U) Not detected None Detected [facility] Comment on above: Urine Methadone Cuto ff: < 300 ng/mL = None Detected Opiates Screen Ql (U) Not detected None Detected [facility] Comment on above: Urine Opiates Cutoff : < 300 ng/mL = None Detected oxyCODONE Ql (U) Not detected None Detected [facility] Comment on above: Urine Oxycodone Cuto ff: < 100 ng/mL = None Detected Specimen will be kep t for 1 week, if the sample is adequate. Confirmation testing can be initiated by calling the lab within 1 week. Screen results should be used for treatment purposes only. [facility] EEG (Standard)on 06-02-2022 Hal Clarke MD 06/02/2022 12:14 PM [facility] EEG Report Reason for EEG: Seizures Summary: This is a 16 channel digital EEG recording. There is a moderately well-developed, moderately well-organized background activity with the dominant rhythm of 8 Hz. There are intermittent rhythmic generalized slowing with 3 Hz activity maximal in the frontal area (FIRDA). Hyperventilation and photic stimulations were not done. No clear sleep patterns are noted. No clear epileptiform discharges were seen. Impression: This is an abnormal EEG due to presence of intermittent background slowing consistent with frontal intermittent rhythmic delta activity (FIRDA) suggesting a mild to moderate degree of generalized nonspecific neurophysiological disturbance. No clear epileptiform discharges or ictal activity was seen. [facility] ESR Westergren method (Bld) [Velocity]on 06-02-2022 ESR (Bld) [Velocity] 21 mm/h [facility] Interpretation and review of laboratory results Abnormal [facility] Iron Study with Ferritinon 0 06-02-2022 Ferritin [Mass/Vol] 224 ng/mL 30 - 400 ng/mL [facility] Iron [Mass/Vol] 51 ug/dL [facility] Iron binding capacity [Mass/Vol] 203 Low [facility] Iron saturation [Mass fraction] 25 % 20 - 50 % [facility] Magnesium Levelon 06-02-2022 Magnesium [Mass/Vol] 2.0 mg/dL 1.6 - 2 .4 mg/dL [facility] Magnesium [Mass/Vol]on 06-02 [facility] No Panel Informationon 06-02 Interpretation and review of laboratory results Abnormal [facility] Interpretation and review of laboratory results Normal [facility] Potassium Levelon 06-02-2022 Potassium [Moles/Vol] 3.6 mmol/L 3.5 - 5.1 mmol/L [facility] Potassium [Moles/Vol]on Interpretation and review of laboratory results Normal [facility] Prolactinon 06-02-2022 Prolactin [Mass/Vol] 5.4 ng/mL 1.6 - 1 8.8 ng/mL [facility] Prolactin [Mass/Vol]on 06-02 Interpretation and review of laboratory results Normal [facility] B12/Folateon 06-01-2022 Cobalamin (Vitamin B12) [Mass/Vol] 527 pg/mL 193 - 986 pg/mL [facility] Folate [Mass/Vol] ng/mL High 3.1 - 17.5 ng/mL [facility] Comment on above: Deficient <2.2 Borderline 2.2 - 3.0 Excessive >17.5 Interpretation and review of laboratory results Abnormal [facility] CT HEAD OR BRAIN WITHOUT CON TRASTon 06-01-2022 CT HEAD OR BRAIN WITHOUT CONTRAST EXAMINATION: CT HEAD OR BRAIN WITHOUT CONTRAST HISTORY: Seizure, new-onset, no history of trauma COMPARISON: CT head 05/30/2022 TECHNIQUE: Standard noncontrast brain CT. Dose reduction techniques were achieved by using automated exposure control and/or adjustment of mA and/or kV according to patient size and/or use of iterative reconstruction technique. FINDINGS: No intracranial hemorrhage, extra-axial fluid collection, hydrocephalus, midline shift, or acute infarction. No other mass effect. Patent basal cisterns. No calvarial fracture. Normal soft tissues. Trace scattered paranasal sinus mucosal thickening. Mastoid air cells are well aerated. IMPRESSION: No acute intracranial process. No substantial change since 05/30/2022. Workstation ID: [id number] Dictated by: GEOVANI PATEL on TueJun 01, 2022 4:17:32 PM EST Transcribed by: GEOVANI PATEL on TueJun 01, 2022 4:17:32 PM EST Finalized by: GEOVANI PATEL on TueJun 01, 2022 4:17:32 PM EST Normal [facility] Comment on above: Order Comment: Injur y/Trauma or Illness?:Illness/Other How long have you had these symptoms (acute/chronic)?:Acute Reason for exam?:seizure Type of Exam?:Initial Additional signs and symptoms?:n/a CT Head Or Brain Without Con traston 06-01-2022 No acute intracranial process. No substantial change since 05/30/2022. Workstation ID: [id number] [employer] EXAMINATION: CT HEAD OR BRAIN WITHOUT CONTRAST HISTORY: Seizure, new-onset, no history of trauma COMPARISON: CT head 05/30/2022 TECHNIQUE: Standard noncontrast brain CT. Dose reduction techniques were achieved by using automated exposure control and/or adjustment of mA and/or kV according to patient size and/or use of iterative reconstruction technique. FINDINGS: No intracranial hemorrhage, extra-axial fluid collection, hydrocephalus, midline shift, or acute infarction. No other mass effect. Patent basal cisterns. No calvarial fracture. Normal soft tissues. Trace scattered paranasal sinus mucosal thickening. Mastoid air cells are well aerated. [employer] Geovani Burns, DO - 06/01/2022 EXAMINATION: CT HEAD OR BRAIN WITHOUT CONTRAST HISTORY: Seizure, new-onset, no history of trauma COMPARISON: CT head 05/30/2022 TECHNIQUE: Standard noncontrast brain CT. Dose reduction techniques were achieved by using automated exposure control and/or adjustment of mA and/or kV according to patient size and/or use of iterative reconstruction technique. FINDINGS: No intracranial hemorrhage, extra-axial fluid collection, hydrocephalus, midline shift, or acute infarction. No other mass effect. Patent basal cisterns. No calvarial fracture. Normal soft tissues. Trace scattered paranasal sinus mucosal thickening. Mastoid air cells are well aerated. IMPRESSION: No acute intracranial process. No substantial change since 05/30/2022. Workstation ID: [id number] [facility] Radiology Study observation (narrative) [facility] CT Head Or Brain Without Con trastOrdered By: Geovani Burns on 06-01-2022 [facility] Work Phone: ECG 12 Leadon 06-01-2022 Atrial Rate 99 BPM [facility] P [place] 70 degrees [facility] P-R Interval 148 ms [facility] Q-T Interval 356 ms [facility] QRS Duration 70 ms [facility] QTC Calculation (Bezet) 456 ms [facility] [place] 13 degrees [facility] T [place] 12 degrees [facility] Ventricular Rate 99 BPM [facility] Normal sinus rhythm Normal ECG Confirmed by Bill Alejandra MD ([id number]) on 06/01/2022 9:08:47 AM [facility] Glucose (Bld) [Mass/Vol]on 0 06-01-2022 Glucose [Mass/Vol] 95 mg/dL 65 - 99 mg/dL [facility] Interpretation and review of laboratory results Normal [facility] HIV Antibody (HIV1/HIV2)on 0 06-01-2022 HIV 1+2 Ab+HIV1 p24 Ag IA Ql Negative Negative [facility] Interpretation and review of laboratory results Normal [facility] This assay screens f or the presence of HIV-1, HIV-2 antibodies and for the presence of HIV-1 antigen. Test performed using Eliot CASIMIRO immunoassay system [facility] Hepatitis Panel, Acuteon HAV IgM Ql (S) Negative Negative [facility] HBV core IgM Ql (S) Negative Negative [facility] surface Ag Ql (S) Negative Negative [facility] HCV Ab Ql (S) Negative Negative [facility] Interpretation and review of laboratory results Normal [facility] Test performed using Eliot CASIMIRO immunoassay system [facility] Lactate [Moles/Vol]on 2022 Interpretation and review of laboratory results Normal [facility] Lactic Acid, Plasmaon 2022 Lactate [Moles/Vol] 1.1 mmol/L 0.6 - 2. 0 mmol/L [facility] POC Arterial Blood Gas Panel -Pulmon 06-01-2022 Alveolar-arterial oxygen Partial pressure difference 65.2 mm Hg [facility] Base excess Calc (Bld) [Moles/Vol] -1.4000 mmol/L -2.0 - 2.0 [facility] CO2 (Bld) [Partial pressure] 27.3 mm[Hg] Low [facility] HCO3 (Bld) [Moles/Vol] 20.6 mmol/L Low 22.0 - 26.0 mmol/L [facility] Hematocrit (BldA) [Volume fraction] 43.3 % 41.0 - 53.0 % [facility] Hemoglobin (Bld) [Mass/Vol] 14.1 g/dL 13.5 - 17.5 g/dL [facility] Inhaled oxygen concentration 24 % [facility] Inhaled oxygen flow rate 1 L/min [facility] Interpretation and review of laboratory results Abnormal [facility] Oxygen (Bld) [Partial pressure] 65 mm[Hg] Low [facility] pH (Bld) 7.49 [pH] High 7.35 - 7.45 [facility] Specimen source Nom (Unsp spec) Radial, right [facility] Alveolar-arterial oxygen Partial pressure difference 85.9 mm Hg [facility] Base excess Calc (Bld) [Moles/Vol] -0.1000 mmol/L -2.0 - 2.0 [facility] CO2 (Bld) [Partial pressure] 32.2 mm[Hg] Low [facility] HCO3 (Bld) [Moles/Vol] 23.0 mmol/L 22.0 - 26.0 mmol/L [facility] Hematocrit (BldA) [Volume fraction] 42.1 % 41.0 - 53.0 % [facility] Hemoglobin (Bld) [Mass/Vol] 13.7 g/dL 13.5 - 17.5 g/dL [facility] Inhaled oxygen concentration 28 % [facility] Inhaled oxygen flow rate 2 L/min [facility] Interpretation and review of laboratory results Abnormal [facility] Oxygen (Bld) [Partial pressure] 67 mm[Hg] Low [facility] pH (Bld) 7.46 [pH] High 7.35 - 7.45 [facility] Specimen source Nom (Unsp spec) Radial, left [facility] Basic metabolic 2000 panelon 05-31-2022 Anion gap [Moles/Vol] 15 mmol/L 10 - 2 0 mmol/L [facility] Calcium [Mass/Vol] 9.5 mg/dL 8.4 - 10. 2 mg/dL [facility] Chloride [Moles/Vol] 108 mmol/L 98 - 10 8 mmol/L [facility] Creatinine [Mass/Vol] 0.71 mg/dL 0.50 - 1.30 mg/dL [facility] GFR/1.73 sq M.predicted CKD-EPI (S/P/Bld) [Vol rate/Area] 122 - PINF [facility] Comment on above: Estimated GFR was ca lculated using the 2020 CKD-EPI creatinine equation. Glucose [Mass/Vol] 123 mg/dL High 65 - 99 mg/dL [facility] HCO3 [Moles/Vol] 24 mmol/L 21 - 32 mmol/L [facility] Interpretation and review of laboratory results Abnormal [facility] Potassium [Moles/Vol] 3.7 mmol/L 3.5 - 5.1 mmol/L [facility] Sodium [Moles/Vol] 143 mmol/L 135 - 145 mmol/L [facility] Urea nitrogen [Mass/Vol] 13 mg/dL 8 - 25 mg/dL [facility] Urea nitrogen/Creatinine [Mass ratio] 18.3 mg/mg 10.0 - 20.0 [facility] Laborator y Services has implemented the eGFR calculation approach that does not have a coefficient for race that conforms to the NKF-ASN Task Force Recommendations. [facility] CBC Auto Differentialon -0 Basophils (Bld) [#/Vol] 0.03 10*3/uL [facility] Basophils/100 WBC (Bld) 0.2 % [facility] Eosinophils (Bld) [#/Vol] 0.01 10*3/uL [facility] Eosinophils/100 WBC (Bld) 0.1 % [facility] Erythrocyte distribution width (RBC) [Entitic vol] 13.2 % 11.6 - 14.8 % [facility] Hematocrit (Bld) [Volume fraction] 43.0 % 41.0 - 53.0 % [facility] Hemoglobin (Bld) [Mass/Vol] 14.4 g/dL 13.5 - 17.5 g/dL [facility] Immature granulocytes (Bld) [#/Vol] 0.07 10*3/uL [facility] Immature granulocytes/100 WBC (Bld) 0.50 % [facility] Comment on above: The IG parameter is the percentage of metamyelocytes, myelocytes and promyelocytes. An immature granulocyte count (IG) of 1% or more suggests the possibility of infection, an IG count of 3% is very likely related to an infection. Interpretation and review of laboratory results Abnormal [facility] Lymphocytes (Bld) [#/Vol] 1.21 10*3/uL [facility] Lymphocytes/100 WBC (Bld) 8.2 % [facility] MCH (RBC) [Entitic mass] 28.4 pg 26. 0 - 34.0 pg [facility] MCHC (RBC) [Mass/Vol] 33.5 g/dL 31.0 - 37.0 g/dL [facility] MCV (RBC) [Entitic vol] 84.8 fL 80.0 - 100.0 fL [facility] Monocytes (Bld) [#/Vol] 0.69 10*3/uL [facility] Monocytes/100 WBC (Bld) 4.7 % [facility] Neutrophils (Bld) [#/Vol] 12.68 10*3/uL High [facility] Neutrophils/100 WBC (Bld) 86.3 % [facility] Nucleated RBC (Bld) [#/Vol] 0.00 10*3/uL [facility] Nucleated RBC/100 WBC (Bld) [Ratio] 0.0 % [facility] Platelet mean volume (Bld) [Entitic vol] 8.8 fL Low 9.4 - 12.4 fL [facility] Platelets (Bld) [#/Vol] 367 10*3/uL [facility] RBC (Bld) [#/Vol] 5.07 10*6/uL [facility] ealth WBC (Bld) [#/Vol] 14.69 10*3/uL [facility] CT Head Or Brain Without Con traston 05-31-2022 No acute intracranial abnormality. FOLLOW-UP: Follow-up as clinically indicated. Workstation ID: [id number] [employer] EXAMINATION: CT HEAD OR BRAIN WITHOUT CONTRAST HISTORY: ORDERING SYSTEM PROVIDED HISTORY: AMS, possible OD vs head injury, COMPARISON: No prior studies are available at the time of dictation. TECHNIQUE: Multiple axial images were obtained of the brain without intravenous contrast. AEC is utilized. 2-D reconstructed images are provided. FINDINGS: The ventricles and the cortical sulci have normal size contour and symmetry. There is no evidence for intracranial hemorrhage. There is no mass effect and or midline shift. No extra-axial collections. Limited evaluation of the orbits and the paranasal sinuses are normal. [employer] Said, Carlos Cox MD - 05/31/2022 EXAMINATION: CT HEAD OR BRAIN WITHOUT CONTRAST HISTORY: ORDERING SYSTEM PROVIDED HISTORY: AMS, possible OD vs head injury, COMPARISON: No prior studies are available at the time of dictation. TECHNIQUE: Multiple axial images were obtained of the brain without intravenous contrast. AEC is utilized. 2-D reconstructed images are provided. FINDINGS: The ventricles and the cortical sulci have normal size contour and symmetry. There is no evidence for intracranial hemorrhage. There is no mass effect and or midline shift. No extra-axial collections. Limited evaluation of the orbits and the paranasal sinuses are normal. IMPRESSION: No acute intracranial abnormality. FOLLOW-UP: Follow-up as clinically indicated. Workstation ID: [id number] [facility] CT Head Or Brain Without Con trastOrdered By: Carlos Mcelroy on 05-31-2022 [facility] Work Phone: CTA PULM ART AND CT ABD PELV IS WITH IV CONTRASTon 05-31-[address] ABD PELVIS WITH IV CONTRAST EXAMINATION: CTA PULMONARY ARTERIES AND CT ABDOMEN PELVIS WITH IV CONTRAST, 05/30/2022: HISTORY: intractible n/v, hypoxia, tachycardia COMPARISON: Chest x-ray, 05/30/2022. TECHNIQUE: IV contrast enhanced CTA imaging of the chest was performed with IV contrast-enhanced CT imaging of the abdomen and pelvis using 75ml of Isovue 370 intravenous contrast. MIP and MPR images are provided. Dose reduction techniques were achieved by using automated exposure control and/or adjustment of mA and/or kV according to patient size and/or use of iterative reconstruction technique. FINDINGS: CTA CHEST: There is good enhancement of the pulmonary arteries. No acute pulmonary embolism is seen. Cardiac size is normal. There is no pericardial effusion The thoracic aorta and arch vessels appear unremarkable. No dissection or aneurysm is seen. There is mild linear atelectasis or fibrotic scarring at the left lung base. The lungs appear otherwise clear. The bony thorax appears intact. CT ABDOMEN: The liver, gallbladder, pancreas, spleen, and adrenal glands appear within normal limits. There is a cortical cyst in the posterior mid to lower pole of the right kidney. The kidneys are otherwise unremarkable. The aorta, IVC, stomach and small bowel are unremarkable. There is a small fat containing umbilical hernia. CT PELVIS: The appendix, pelvic small bowel loops, and prostate are unremarkable. The urinary bladder is distended but otherwise unremarkable. There is dense stool moderately distending the rectal vault. No acute inflammatory change, free fluid, loculated fluid, free air, or soft tissue gas is seen in the abdomen or pelvis. No acute osseous abnormality or suspicious bony lesion is seen. IMPRESSION: 1. No aortic dissection, pulmonary arterial embolism, or other acute findings in the chest, abdomen or pelvis. 2. Dense stool moderately distending the rectal vault. This could be normal or reflect mild fecal impaction. Workstation ID: [id number] Dictated by: MARIO ALVAREZ on TueMay 31, 2022 12:29:17 AM EST Transcribed by: MARIO ALVAREZ on TueMay 31, 2022 12:29:17 AM EST Finalized by: MARIO ALVAREZ on TueMay 31, 2022 12:29:17 AM EST Normal [facility] Comment on above: Order Comment: Injur y/Trauma or Illness?:Illness/Other How long have you had these symptoms (acute/chronic)?:Acute Reason for exam?:vomiting, diarrhea, hypoxia Type of Exam?:Initial Additional signs and symptoms?: CTA Pulm Art and CT Abd Pelv is with IV contraston 05-31-2022 1. No aortic dissection, pulmonary arterial embolism, or other acute findings in the chest, abdomen or pelvis. 2. Dense stool moderately distending the rectal vault. This could be normal or reflect mild fecal impaction. Workstation ID: [id number] [facility] EXAMINATION: CTA PULMONARY ARTERIES AND CT ABDOMEN PELVIS WITH IV CONTRAST, 05/30/2022: HISTORY: intractible n/v, hypoxia, tachycardia COMPARISON: Chest x-ray, 05/30/2022. TECHNIQUE: IV contrast enhanced CTA imaging of the chest was performed with IV contrast-enhanced CT imaging of the abdomen and pelvis using 75ml of Isovue 370 intravenous contrast. MIP and MPR images are provided. Dose reduction techniques were achieved by using automated exposure control and/or adjustment of mA and/or kV according to patient size and/or use of iterative reconstruction technique. FINDINGS: CTA CHEST: There is good enhancement of the pulmonary arteries. No acute pulmonary embolism is seen. Cardiac size is normal. There is no pericardial effusion The thoracic aorta and arch vessels appear unremarkable. No dissection or aneurysm is seen. There is mild linear atelectasis or fibrotic scarring at the left lung base. The lungs appear otherwise clear. The bony thorax appears intact. CT ABDOMEN: The liver, gallbladder, pancreas, spleen, and adrenal glands appear within normal limits. There is a cortical cyst in the posterior mid to lower pole of the right kidney. The kidneys are otherwise unremarkable. The aorta, IVC, stomach and small bowel are unremarkable. There is a small fat containing umbilical hernia. CT PELVIS: The appendix, pelvic small bowel loops, and prostate are unremarkable. The urinary bladder is distended but otherwise unremarkable. There is dense stool moderately distending the rectal vault. No acute inflammatory change, free fluid, loculated fluid, free air, or soft tissue gas is seen in the abdomen or pelvis. No acute osseous abnormality or suspicious bony lesion is seen. [employer] [facility] Mario Alvarez MD - 05/31/2022 EXAMINATION: CTA PULMONARY ARTERIES AND CT ABDOMEN PELVIS WITH IV CONTRAST, 05/30/2022: HISTORY: intractible n/v, hypoxia, tachycardia COMPARISON: Chest x-ray, 05/30/2022. TECHNIQUE: IV contrast enhanced CTA imaging of the chest was performed with IV contrast-enhanced CT imaging of the abdomen and pelvis using 75ml of Isovue 370 intravenous contrast. MIP and MPR images are provided. Dose reduction techniques were achieved by using automated exposure control and/or adjustment of mA and/or kV according to patient size and/or use of iterative reconstruction technique. FINDINGS: CTA CHEST: There is good enhancement of the pulmonary arteries. No acute pulmonary embolism is seen. Cardiac size is normal. There is no pericardial effusion The thoracic aorta and arch vessels appear unremarkable. No dissection or aneurysm is seen. There is mild linear atelectasis or fibrotic scarring at the left lung base. The lungs appear otherwise clear. The bony thorax appears intact. CT ABDOMEN: The liver, gallbladder, pancreas, spleen, and adrenal glands appear within normal limits. There is a cortical cyst in the posterior mid to lower pole of the right kidney. The kidneys are otherwise unremarkable. The aorta, IVC, stomach and small bowel are unremarkable. There is a small fat containing umbilical hernia. CT PELVIS: The appendix, pelvic small bowel loops, and prostate are unremarkable. The urinary bladder is distended but otherwise unremarkable. There is dense stool moderately distending the rectal vault. No acute inflammatory change, free fluid, loculated fluid, free air, or soft tissue gas is seen in the abdomen or pelvis. No acute osseous abnormality or suspicious bony lesion is seen. IMPRESSION: 1. No aortic dissection, pulmonary arterial embolism, or other acute findings in the chest, abdomen or pelvis. 2. Dense stool moderately distending the rectal vault. This could be normal or reflect mild fecal impaction. Workstation ID: [id number] [facility] CTA Pulm Art and CT Abd Pelv is with IV contrastOrdered By: Mario Alvarez on 05-31-2022 [facility] Work Phone: EKGon 05-31-2022 [facility] Magnesiumon 05-31-2022 Magnesium [Mass/Vol] 2.0 mg/dL 1.6 - 2 .4 mg/dL [facility] Magnesium [Mass/Vol]on 05-31 [facility] No Panel Informationon 05-31 Interpretation and review of laboratory results Normal [facility] Interpretation and review of laboratory results Normal [facility] Phosphoruson 05-31-2022 Phosphate [Mass/Vol] 4.3 mg/dL 2.7 - 4 .5 mg/dL [facility] T4, Freeon 05-31-2022 Free T4 [Mass/Vol] 0.9 ng/dL 0.7 - 1.7 ng/dL [facility] TSH DL <= 0.005 mIU/L Qnon 0 05-31-2022 TSH Qn 0.47 m[IU]/L [facility] UrinalysisOrdered By: Shonda fairchild on 05-31-2022 Bacteria Auto Ql (U) None Seen None Se en /hpf [facility] Bilirubin Ql (U) Negative Negative [facility] th Clarity Refractometry automated (U) Clear Clear [facility] Color (U) Yellow Colorless, Yellow [facility] Crystals.amorphous Computer assisted (U) [#/Area] Few Abnormal None Seen, Rare /hpf [facility] Epithelial cells.squamous Auto (Urine sed) [#/Area] [facility] Glucose Auto test strip (U) [Mass/Vol] Negative Negative mg/dL [facility] Hemoglobin Auto test strip Ql (U) Negative Negative [facility] Interpretation and review of laboratory results Abnormal [facility] Ketones (U) [Mass/Vol] mg/dL Abnormal Negat tracie mg/dL [facility] Leukocyte esterase Auto test strip Ql (U) Negative Negative [facility] Mucus Auto (Urine sed) [#/Area] Rare None Seen, Rare /lpf [facility] Nitrite Auto test strip Ql (U) Negative Negative [facility] pH (U) 6.5 [pH] 5.0 - 7.0 [facility] Protein (U) [Mass/Vol] 30 mg/dL Abnormal Negative [facility] Comment on above: False positive resul ts may occur in urines with large amounts of hemoglobin, pH greater than 8.0, contrast medium, or disinfectants including ammonium compounds. RBC Auto (Urine sed) [#/Area] 3 [facility] Specific gravity (U) [Rel density] 1.045 High 1.005 - 1.025 [facility] Urobilinogen (U) [Mass/Vol] 2.0 mg/dL Abnormal NINF - 2.0 mg/dL [facility] WBC Auto (Urine sed) [#/Area] 1 [facility] Microscopic examinat ion is performed on all urinalysis samples and only positive findings are reported. The test for blood on the chemical analytic portion of urinalysis may also be positive due to hemoglobinuria and myoglobinuria and if red blood cells are present they are quantified by microscopic examination. [facility] Urine Drug Screenon 05-31-19 23 Amphetamines Ql (U) Positive Abnormal None Detected [facility] Comment on above: Urine Amphetamine Cu toff: < 1000 ng/mL = None Detected Barbiturates Screen Ql (U) Not detected None Detected [facility] Comment on above: Urine Barbiturates C utoff: < 200 ng/mL = None Detected Benzodiazepines Ql (U) Not detected None Detected [facility] Comment on above: Urine Benzodiazepine Cutoff: < 200 ng/mL = None Detected Buprenorphine Ql (U) Not detected None Detected [facility] Comment on above: Urine Buprenorphine Cutoff: < 5 ng/mL = None Detected Cannabinoids Screen Ql (U) Positive Abnormal None Detected [facility] Comment on above: Urine Cannabinoids C utoff: < 50 ng/mL = None Detected Cocaine Ql (U) Not detected None Detected [facility] Comment on above: Urine Cocaine Cutoff : < 300 ng/mL = None Detected fentaNYL+Norfentanyl Screen Ql (U) Positive Abnormal None Detected [facility] Comment on above: Urine Fentanyl Cutof f: < 1 ng/mL = None Detected Interpretation and review of laboratory results Abnormal [facility] Methadone Screen Ql (U) Not detected None Detected [facility] Comment on above: Urine Methadone Cuto ff: < 300 ng/mL = None Detected Opiates Screen Ql (U) Not detected None Detected [facility] [facility] Comment on above: Urine Opiates Cutoff : < 300 ng/mL = None Detected oxyCODONE Ql (U) Not detected None Detected [facility] Comment on above: Urine Oxycodone Cuto ff: < 100 ng/mL = None Detected Specimen will be kep t for 1 week, if the sample is adequate. Confirmation testing can be initiated by calling the lab within 1 week. Screen results should be used for treatment purposes only. [facility] Basic metabolic 2000 panelon 05-30-2022 Anion gap [Moles/Vol] 15 mmol/L 10 - 2 0 mmol/L [facility] Calcium [Mass/Vol] 10.2 mg/dL 8.4 - 10. 2 mg/dL [facility] Chloride [Moles/Vol] 103 mmol/L 98 - 10 8 mmol/L [facility] Creatinine [Mass/Vol] 0.85 mg/dL 0.50 - 1.30 mg/dL [facility] GFR/1.73 sq M.predicted CKD-EPI (S/P/Bld) [Vol rate/Area] 115 - PINF [facility] Comment on above: Estimated GFR was ca lculated using the 2020 CKD-EPI creatinine equation. Glucose [Mass/Vol] 126 mg/dL High 65 - 99 mg/dL [facility] HCO3 [Moles/Vol] 24 mmol/L 21 - 32 mmol/L [facility] Interpretation and review of laboratory results Abnormal [facility] Potassium [Moles/Vol] 3.8 mmol/L 3.5 - 5.1 mmol/L [facility] Sodium [Moles/Vol] 138 mmol/L 135 - 145 mmol/L [facility] Urea nitrogen [Mass/Vol] 13 mg/dL 8 - 25 mg/dL [facility] Urea nitrogen/Creatinine [Mass ratio] 15.3 mg/mg 10.0 - 20.0 [facility] Laborator y Services has implemented the eGFR calculation approach that does not have a coefficient for race that conforms to the NKF-ASN Task Force Recommendations. [facility] CBC Auto Differentialon Basophils (Bld) [#/Vol] 0.02 10*3/uL [facility] Basophils/100 WBC (Bld) 0.2 % [facility] Eosinophils (Bld) [#/Vol] 0.00 10*3/uL [facility] Eosinophils/100 WBC (Bld) 0.0 % [facility] Erythrocyte distribution width (RBC) [Entitic vol] 13.0 % 11.6 - 14.8 % [facility] Hematocrit (Bld) [Volume fraction] 47.7 % 41.0 - 53.0 % [facility] Hemoglobin (Bld) [Mass/Vol] 16.2 g/dL 13.5 - 17.5 g/dL [facility] Immature granulocytes (Bld) [#/Vol] 0.05 10*3/uL [facility] Immature granulocytes/100 WBC (Bld) 0.50 % [facility] Comment on above: The IG parameter is the percentage of metamyelocytes, myelocytes and promyelocytes. An immature granulocyte count (IG) of 1% or more suggests the possibility of infection, an IG count of 3% is very likely related to an infection. Interpretation and review of laboratory results Abnormal [facility] Lymphocytes (Bld) [#/Vol] 0.97 10*3/uL [facility] Lymphocytes/100 WBC (Bld) 9.1 % [facility] MCH (RBC) [Entitic mass] 28.6 pg 26. 0 - 34.0 pg [facility] MCHC (RBC) [Mass/Vol] 34.0 g/dL 31.0 - 37.0 g/dL [facility] MCV (RBC) [Entitic vol] 84.3 fL 80.0 - 100.0 fL [facility] Monocytes (Bld) [#/Vol] 0.32 10*3/uL [facility] Monocytes/100 WBC (Bld) 3.0 % [facility] Neutrophils (Bld) [#/Vol] 9.33 10*3/uL High [facility] Neutrophils/100 WBC (Bld) 87.2 % [facility] Nucleated RBC (Bld) [#/Vol] 0.00 10*3/uL [facility] Nucleated RBC/100 WBC (Bld) [Ratio] 0.0 % [facility] Platelet mean volume (Bld) [Entitic vol] 8.6 fL Low 9.4 - 12.4 fL [facility] Platelets (Bld) [#/Vol] 383 10*3/uL [facility] RBC (Bld) [#/Vol] 5.66 10*6/uL [facility] ealth WBC (Bld) [#/Vol] 10.69 10*3/uL [facility] COVID-19/INFLUENZA A,B MOLEC ULARon 05-30-2022 SARS-CoV-2 (COVID-19) Ab IA Ql SARS-COV-2 (YANNA): Not Detected INFLUENZA A (YANNA): Not Detected INFLUENZA B (YANNA): Not Detected Normal Not Detected [facility] Comment on above: Order Comment: This test was performed under the FDA's Emergency Use Authorization (EUA). Testing was performed using the Eliot Casimiro SARS-CoV-2 RT-PCR AND Influenza A/B Nucleic Acid Test on the Casimiro Yanna System. This test has not been approved for use in asymptomatic patients and its performance in this patient population has not been evaluated. Negative results do not rule out the presence of SARS-CoV-2, influenza A, and/or influenza B. Fact sheets for the EUA can be found at the following links: For Healthcare Providers: https://www.fda.gov/media/931305/download For Patients: https://www.fda.gov/media/783143/download Performed By: #### L [id number] #### [facility] [address] [address] Lj Liz M.D. [id number] CT HEAD OR BRAIN WITHOUT CON TRASTon 05-30-2022 CT HEAD OR BRAIN WITHOUT CONTRAST EXAMINATION: CT HEAD OR BRAIN WITHOUT CONTRAST HISTORY: ORDERING SYSTEM PROVIDED HISTORY: AMS, possible OD vs head injury, COMPARISON: No prior studies are available at the time of dictation. TECHNIQUE: Multiple axial images were obtained of the brain without intravenous contrast. AEC is utilized. 2-D reconstructed images are provided. FINDINGS: The ventricles and the cortical sulci have normal size contour and symmetry. There is no evidence for intracranial hemorrhage. There is no mass effect and or midline shift. No extra-axial collections. Limited evaluation of the orbits and the paranasal sinuses are normal. IMPRESSION: No acute intracranial abnormality. FOLLOW-UP: Follow-up as clinically indicated. Workstation ID: [id number] Dictated by: CARLOS MCELROY on TueMay 31, 2022 12:10:06 AM EST Transcribed by: CARLOS MCELROY on TueMay 31, 2022 12:10:06 AM EST Finalized by: CARLOS MCELROY on TueMay 31, 2022 12:10:06 AM EST Normal [facility] Comment on above: Order Comment: Injur y/Trauma or Illness?:Injury/Trauma How long have you had these symptoms (acute/chronic)?:Acute Reason for exam?:OD vs head injury, pt poor historian Type of Exam?:Initial Mechanism of injury?:OD vs head injury, pt poor historian CT Head Or Brain Without Con traston 05-30-2022 Radiology Study observation (narrative) [facility] CTA Pulm Art and CT Abd Pelv is with IV contraston 05-30-2022 Radiology Study observation (narrative) [facility] Critical Careon 05-30-2022 Charlie Johnson MD 023 12:45 AM Critical Care Performed by: Charlie Johnson MD Authorized by: Charlie Johnson MD Total critical care time: 50 minutes Critical care time was exclusive of separately billable procedures and treating other patients. Critical care was necessary to treat or prevent imminent or life-threatening deterioration of the following conditions: respiratory failure, toxidrome and LOAD BLOCKER failure or compromise. Critical care was time spent personally by me on the following activities: development of treatment plan with patient or surrogate, discussions with consultants, evaluation of patient's response to treatment, examination of patient, obtaining history from patient or surrogate, ordering and performing treatments and interventions, ordering and review of laboratory studies, ordering and review of radiographic studies, pulse oximetry, re-evaluation of patient's condition and review of old charts. [facility] ECG 12 Leadon 05-30-2022 Interpretation and review of laboratory results Abnormal [facility] Charlie Johnson MD 023 12:45 AM ECG 12 Lead Date/Time: 05/30/2022 11:02 PM Performed by: Charlie Johnson MD Authorized by: Charlie Johnson MD Interpreted by ED attending physician Rhythm: sinus rhythm and sinus tachycardia BPM: 115 ST Segments: ST segments normal Clinical impression: abnormal ECG and sinus tachycardia [facility] EKG 12-leadon 05-30-2022 Atrial Rate 115 BPM [facility] P [place] 82 degrees [facility] P-R Interval 152 ms [facility] Q-T Interval 386 ms [facility] QRS Duration 74 ms [facility] QTC Calculation (Bezet) 533 ms [facility] R [place] 45 degrees [facility] T [place] 61 degrees [facility] Ventricular Rate 115 BPM [facility] Sinus tachycardia ny th Fusion complexes Left atrial enlargement Possible Inferior infarct , age undetermined Possible Anterior infarct , age undetermined Marked ST abnormality, possible septal subendocardial injury Prolonged QT Abnormal ECG ECG Cart Interpretation see physician note for interpretation. Confirmed by Mary Magaña ([id number]) on 05/30/2022 9:58:54 PM MUSE [facility] Hepatic function 2000 panelo n 05-30-2022 Albumin [Mass/Vol] 4.0 g/dL 3.2 - 5.2 g/dL [facility] ALP [Catalytic activity/Vol] 136 U/L 40 - 140 U/L [facility] ALT [Catalytic activity/Vol] 31 U/L 14 - 65 U/L [facility] AST [Catalytic activity/Vol] 24 U/L 0 - 45 U/L [facility] Bilirubin [Mass/Vol] 0.6 mg/dL 0.0 - 1 .3 mg/dL [facility] Bilirubin.conjugated [Mass/Vol] 0.2 mg/dL 0.0 - 0.4 mg/dL [facility] Interpretation and review of laboratory results Abnormal [facility] Protein [Mass/Vol] 9.0 g/dL High 6.0 - 8.0 g/dL [facility] Influenza virus A and B RNA and SARS-CoV-2 (COVID-19) N gene panel KATLYN+probe (Resp)Ordered By: Lj Ronquillo on 05-30-2022 FLUAV RNA KATLYN+probe Ql (Unsp spec) Not detected Not Detected [facility] FLUBV RNA KATLYN+probe Ql (Unsp spec) Not detected Not Detected [facility] Interpretation and review of laboratory results Normal [facility] SARS-CoV-2 (COVID-19) RNA KATLYN+probe Ql (Resp) Not detected Not Detected [facility] This test was perfor med under the FDA's Emergency Use Authorization (EUA). Testing was performed using the Eliot Casimiro SARS-CoV-2 RT-PCR & Influenza A/B Nucleic Acid Test on the Casimiro Yanna System. This test has not been approved for use in asymptomatic patients and its performance in this patient population has not been evaluated. Negative results do not rule out the presence of SARS-CoV-2, influenza A, and/or influenza B. Fact sheets for the EUA can be found at the following links: For Healthcare Providers: https://www.fda.gov/med ia/556819/download For Patients: https://www.fda.gov/med ia/434881/download [facility] Lipaseon 05-30-2022 Lipase [Catalytic activity/Vol] 76 U/L 73 - 393 U/L [facility] Lipase [Catalytic activity/V ol]on 05-30-2022 Interpretation and review of laboratory results Normal [facility] No Panel Informationon 05-30 [facility] Troponinon 05-30-2022 Troponin I ng/L NINF - 59 ng/L [facility] Troponin I Interpretation Normal [facility] XR CHEST PA/APon 05-30-2022 XR CHEST PA/AP EXAMINATION: XR CHEST PA/AP 05/30/2022 7:31 pm HISTORY: ORDERING SYSTEM PROVIDED HISTORY: Altered mental status with possible dried vomit to mouth and hypoxia, TECHNOLOGIST PROVIDED HISTORY: Illness/Other Reason for exam: Altered mental status with possible dried vomit to mouth and hypoxia Cancer History: u Surgery, RadiationHistory: u Encounter Type: Initial Additional signs and symptoms: ORDERING SYSTEM PROVIDED DIAGNOSIS CODES: COMPARISON: 12/23/2021 FINDINGS: There is mild left basilar atelectasis. There is no focal lung consolidation, pleural effusion or pneumothorax. Pulmonary vasculature is within normal limits. The cardiomediastinal silhouette is normal. IMPRESSION: 1. Left basilar atelectasis. No focal consolidation or effusion. Workstation ID: [id number] Dictated by: ASPEN EMNDOZA on [place] May 30, 2022 10:00:58 PM EST Transcribed by: ASPEN MENDOZA on [place] May 30, 2022 10:00:58 PM EST Finalized by: ASPEN MENDOZA on [place] May 30, 2022 10:00:58 PM EST Normal [facility] Comment on above: Order Comment: Injur y/Trauma or Illness?:Illness/Other How long have you had these symptoms (acute/chronic)?:Acute Reason for exam?:Altered mental status with possible dried vomit to mouth and hypoxia History of cancer?:u Surgeries, chemotherapy, or radiation?:u Type of Exam?:Initial Additional signs and symptoms?: XR Chest 1 Viewon 05-30-2022 1. Left basilar atelectasis. No focal consolidation or effusion. Workstation ID: [id number] GE RIS EXAMINATION: XR CHEST PA/AP 05/30/2022 7:31 pm HISTORY: ORDERING SYSTEM PROVIDED HISTORY: Altered mental status with possible dried vomit to mouth and hypoxia, TECHNOLOGIST PROVIDED HISTORY: Illness/Other Reason for exam: Altered mental status with possible dried vomit to mouth and hypoxia Cancer History: u Surgery, RadiationHistory: u Encounter Type: Initial Additional signs and symptoms: ORDERING SYSTEM PROVIDED DIAGNOSIS CODES: COMPARISON: 12/23/2021 FINDINGS: There is mild left basilar atelectasis. There is no focal lung consolidation, pleural effusion or pneumothorax. Pulmonary vasculature is within normal limits. The cardiomediastinal silhouette is normal. Aspen Barroso MD - 05/30/2022 EXAMINATION: XR CHEST PA/AP 05/30/2022 7:31 pm HISTORY: ORDERING SYSTEM PROVIDED HISTORY: Altered mental status with possible dried vomit to mouth and hypoxia, TECHNOLOGIST PROVIDED HISTORY: Illness/Other Reason for exam: Altered mental status with possible dried vomit to mouth and hypoxia Cancer History: u Surgery, RadiationHistory: u Encounter Type: Initial Additional signs and symptoms: ORDERING SYSTEM PROVIDED DIAGNOSIS CODES: COMPARISON: 12/23/2021 FINDINGS: There is mild left basilar atelectasis. There is no focal lung consolidation, pleural effusion or pneumothorax. Pulmonary vasculature is within normal limits. The cardiomediastinal silhouette is normal. IMPRESSION: 1. Left basilar atelectasis. No focal consolidation or effusion. Workstation ID: [id number] [facility] Radiology Study observation (narrative) [facility] XR Chest 1 ViewOrdered By: Darek Mendoza on 05-30-2022 [facility] Work Phone: INFLUENZA A AND B, PCRon FLUAV and FLUBV Ag IF Nom (Unsp spec) Negative NEGATIVE [facility] FLUBV Ag IA Ql (Unsp spec) Negative NEGATIVE [facility] Comment on above: TESTING PERFORMED BY KATLYN [facility] NOVEL CORONAVIRUSon 05-13-20 22 NARRATIVE This test was perfor med using isothermal KATLYN and has been approved as Emergency Use Authorization (EUA) for the qualitative detection [id number]-[id number] nucleic acid. Normal [facility] Comment on above: Performed By: #### C OVID #### Testing performed at [address] [address] SARS-CoV-2 (COVID-19) RNA KATLYN+probe Ql (Unsp spec) Not detected Normal NOT DETECTED [facility] Comment on above: Result Comment: Nega tive results do not preclude SARS-CoV-2 infection and should not be used as the sole basis for treatment or other patient management decisions. Optimum specimen types and timing for peak viral levels during infections caused by SARS-CoV-2 has not been determined. The possibility of a false negative result should especially be considered if the patient's recent exposures or clinical presentation suggest that SARS-CoV-2 infection is probable, and diagnostic tests for other causes of illness (e.g., other respiratory illness) are negative. Collection of a new specimen and re-testing may be necessary if the patient is critically ill or clinically deteriorating. Performed By: #### C OVID #### Testing performed at [facility] [address] [place] [address] NOVEL CORONAVIRUS LAB 1 - NA SOPHARYNGEALon 05-13-2022 NARRATIVE -1 This test was perfor med using isothermal KATLYN and has been approved as Emergency Use Authorization (EUA) for the qualitative detection jyILPN-LlO-2 nucleic acid. [facility] SARS-CoV-2 (COVID-19) RNA KATLYN+probe Ql (Unsp spec) Not detected NOT DETECTED [facility] Comment on above: Negative results do not preclude SARS-CoV-2 infection and should not be used as the sole basis for treatment or other patient management decisions. Optimum specimen types and timing for peak viral levels during infections caused by SARS-CoV-2 has not been determined. The possibility of a false negative result should especially be considered if the patient's recent exposures or clinical presentation suggest that SARS-CoV-2 infection is probable, and diagnostic tests for other causes of illness (e.g., other respiratory illness) are negative. Collection of a new specimen and re-testing may be necessary if the patient is critically ill or clinically deteriorating. [facility] Portable XR Chest Views APon 05-13-2022 IMPRESSION: No acute cardiopulmonary abnormality. RADIOLOGY EXAMINATION: XR CHES T AP PORTABLE HISTORY: Shortness of breath COMPARISON: None. TECHNIQUE: Portable chest FINDINGS: The lung parenchyma is free of consolidation or infiltrate. No pneumothorax or pleural effusion. The cardiac, mediastinal and hilar contours are normal. The visualized osseous structures exhibit no gross abnormality. RADIOLOGY Jeremy Wilkinson, DO - 05/13/2022 EXAMINATION: XR CHEST AP PORTABLE HISTORY: Shortness of breath COMPARISON: None. TECHNIQUE: Portable chest FINDINGS: The lung parenchyma is free of consolidation or infiltrate. No pneumothorax or pleural effusion. The cardiac, mediastinal and hilar contours are normal. The visualized osseous structures exhibit no gross abnormality. IMPRESSION IMPRESSION: No acute cardiopulmonary abnormality. [facility] Radiology Study observation (narrative) [facility] Portable XR Chest Views APOr dered By: Jeremy Wilkinson on 05-13-2022 [facility] Work Phone: RAPID FLU Aon 05-13-2022 INFLUENZA A Negative Normal NEGATIVE [facility] Comment on above: Performed By: #### R FLUAB #### Testing performed at [address] [address] INFLUENZA B Negative Normal NEGATIVE [facility] Comment on above: Result Comment: TEST ING PERFORMED BY KATLYN Performed By: #### R FLUAB #### Testing performed at [address] [address] XR CHEST AP PORTABLEon 05-13 XR CHEST AP PORTABLE EXAMINATION: XR KANG ST AP PORTABLE HISTORY: Shortness of breath COMPARISON: None. TECHNIQUE: Portable chest FINDINGS: The lung parenchyma is free of consolidation or infiltrate. No pneumothorax or pleural effusion. The cardiac, mediastinal and hilar contours are normal. The visualized osseous structures exhibit no gross abnormality. IMPRESSION: No acute cardiopulmonary abnormality. Normal [facility] Basic metabolic 2000 panelon 05-09-2022 Anion gap [Moles/Vol] 12 mmol/L Normal 9-18 [facility] Comment on above: Order Comment: Specgraciela dickson Type: BLOOD SPECIMENOrdering Facility: [facility] Address: [address] [address] Performed By: #### 2 4321-2 ####[facility] LABORATORYCLIA [id number] [address] [id number] [place] Calcium [Mass/Vol] 9.0 mg/dL Normal 8.5-10.2 [facility] Comment on above: Order Comment: Nicolás dickson Type: BLOOD SPECIMENOrdering Facility: [facility] Address: [address] [address] Performed By: #### 2 4321-2 ####[facility] LABORATORYCLIA [id number] [id number] Chloride [Moles/Vol] 105 mmol/L Normal 97-105 [facility] Comment on above: Order Comment: Speci men Type: BLOOD SPECIMENOrdering Facility: [facility] Address: [address] [address] Performed By: #### 2 4321-2 ####[facility] LABORATORYCLIA [id number] [place] [id number] [facility] CO2 [Moles/Vol] 23 mmol/L Normal 22-30 [facility] Comment on above: Order Comment: Speci men Type: BLOOD SPECIMENOrdering Facility: [facility] Address: [address] [address] Performed By: #### 2 4321-2 ####[facility] LABORATORYCLIA [id number] [address] Creatinine [Mass/Vol] 0.82 mg/dL Normal 0.73-1.22 [facility] Comment on above: Order Comment: Speci men Type: BLOOD SPECIMENOrdering Facility: [facility] Address: [address] [address] Performed By: #### 2 4321-2 ####[facility] LABORATORYCLIA [id number] [address] ESTIMATED GLOMERULAR FILTRATION RATE 117 mL/min/1.73m??? Normal >=60 [facility] Comment on above: Order Comment: Speci men Type: BLOOD SPECIMENOrdering Facility: [facility] Address: [address] [place] [address] Result Comment: Jaymie mated Glomerular Filtration Rate (eGFR) is calculated using the 2020 CKD-EPI creatinine equation. This equation utilizes serum creatinine, sex, and age as parameters. The creatinine assay has traceable calibration to isotope dilution-mass spectrometry. Refer to KDIGO guidelines for clinical interpretation. In patients with unstable renal function, e.g. those with acute kidney injury, the eGFR may not accurately reflect actual GFR. Performed By: #### 2 4321-2 ####[facility] LABORATORYCLIA [id number] [place] [id number] [place] Glucose [Mass/Vol] 111 mg/dL High 74-99 [facility] Comment on above: Order Comment: Speci men Type: BLOOD SPECIMENOrdering Facility: [facility] Address: [address] [address] Result Comment: The [place] [employer] (ADA) provides guidance for cutoff values for fasting glucose and random glucose. The ADA defines fasting as no caloric intake for at least 8 hours. Fasting plasma glucose results between 100 to 125 mg/dL indicate increased risk for diabetes (prediabetes). Fasting plasma glucose results greater than or equal to 126 mg/dL meet the criteria for diagnosis of diabetes. In the absence of unequivocal hyperglycemia, results should be confirmed by repeat testing. In a patient with classic symptoms of hyperglycemia or hyperglycemic crisis, random plasma glucose results greater than or equal to 200 mg/dL meet the criteria for diagnosis of diabetes. Reference: Standards of Medical Care in Diabetes 2016, [place] [employer]. Diabetes Care. 2016.39(Suppl 1). Performed By: #### 2 4321-2 ####[facility] LABORATORYCLIA [id number] [place] [address] [place] Potassium [Moles/Vol] 3.2 mmol/L Low 3.7-5.1 [facility] Comment on above: Order Comment: Nicolás men Type: BLOOD SPECIMENOrdering Facility: [facility] Address: [address] [place] [address] Performed By: #### 2 4321-2 ####[facility] LABORATORYCLIA [id number] [place] [address] [place] Sodium [Moles/Vol] 140 mmol/L Normal 136-144 [facility] Comment on above: Order Comment: Speci men Type: BLOOD SPECIMENOrdering Facility: [facility] Address: [address] [address] Performed By: #### 2 4321-2 ####[facility] LABORATORYCLIA [id number] [place] [address] [place] Urea nitrogen [Mass/Vol] 8 mg/dL Low 9-24 [facility] Comment on above: Order Comment: Speci men Type: BLOOD SPECIMENOrdering Facility: [facility] Address: [address] [place] [address] Performed By: #### 2 4321-2 ####[facility] LABORATORYCLIA [id number] [place] [id number] [place] CASE MANAGEMon 05-09-2022 CASE MANAGEM HNO ID: [id number] Author: Radha Alex RN Service: ? Author Type: Registered Nurse Type: Care Mgt Progress Note Filed: 05/09/2022 1:58 PM Note Text: CARE MANAGEMENT DISCHARGE NOTE SERVICE DATE: 05/09/2022 SERVICE TIME: 1350 LOS: 0 days Admission Date: 05/07/2022 DISCHARGE ARRANGEMENT (list agency and phone number) Discharge Arrangement: Home with Self Care CAREGIVER ASSESSMENT: HANDOFF COMMUNICATION: Handoff to: Primary Care Physician TRANSPORTATION ARRANGEMENTS: Transportation Arrangements: To Be Determined Transportation Arrangements: To Be Determined Discharge home and no skilled care. [facility] discharged pt and not able to take back. Pt is aware if he wants to return then he will need to call their admissions. SIGNATURE: Radha Alex RN PATIENT NAME: Mayito Forbes DATE: May 09, 2022 TIME: 1:52 PM PAGER/CONTACT #: [phone] Normal [facility] CBC panel Auto (Bld)on 05-09 Erythrocyte distribution width (RBC) [Ratio] 13.5 % Normal 11.5-15.0 [facility] Comment on above: Order Comment: Speci men Type: BLOOD SPECIMENOrdering Facility: [facility] Address: [address] [place] [address] Performed By: #### 5 8410-2 ####[facility] LABORATORYCLIA [id number] [place] [place] [id number] [facility] Hematocrit (Bld) [Volume fraction] 41.2 % Normal 39.0-51.0 [facility] Comment on above: Order Comment: Speci men Type: BLOOD SPECIMENOrdering Facility: [facility] Address: [address] [place] [address] Performed By: #### 5 8410-2 ####[facility] LABORATORYCLIA [id number] [place] [id number] [place] Hemoglobin (Bld) [Mass/Vol] 13.9 g/dL Normal 13.0-17.0 [facility] Comment on above: Order Comment: Speci men Type: BLOOD SPECIMENOrdering Facility: [facility] Address: [address] [place] [address] Performed By: #### 5 8410-2 ####[facility] LABORATORYCLIA [id number] [address] [place] MCH (RBC) [Entitic mass] 28.4 pg Normal 26.0-34.0 [facility] Comment on above: Order Comment: Speci men Type: BLOOD SPECIMENOrdering Facility: [facility] Address: [address] [place] [address] Performed By: #### 5 8410-2 ####[facility] LABORATORYCLIA [id number] [address] [place] MCHC (RBC) [Mass/Vol] 33.7 g/dL Normal 30.5-36.0 [facility] Comment on above: Order Comment: Speci men Type: BLOOD SPECIMENOrdering Facility: [facility] Address: [address] [place] [address] Performed By: #### 5 8410-2 ####[facility]ENTER[facility]ID LABORATORYCLIA [id number] [address] [place] MCV (RBC) [Entitic vol] 84.3 fL Normal 80.0-100.0 [facility] Comment on above: Order Comment: Speci men Type: BLOOD SPECIMENOrdering Facility: [facility] Address: [address] [place] [address] Performed By: #### 5 8410-2 ####[facility]ENTERLID LABORATORYCLIA [id number] [address] [place] Nucleated RBC (Bld) [#/Vol] 10*3/uL Normal <0.01 [facility] Comment on above: Order Comment: Speci men Type: BLOOD SPECIMENOrdering Facility: [facility] Address: [address] [address] Performed By: #### 5 8410-2 ####[facility]CL[facility] LABORATORYCLIA [id number] [place] [id number] [facility] Platelet mean volume (Bld) [Entitic vol] 8.5 fL Low 9.0-12.7 [facility] Comment on above: Order Comment: Speci men Type: BLOOD SPECIMENOrdering Facility: [facility] Address: [address] [address] Performed By: #### 5 8410-2 ####[facility]CL[facility] LABORATORYCLIA [id number] [place] [address] [place] Platelets (Bld) [#/Vol] 309 10*3/uL Normal 150-400 [facility] Comment on above: Order Comment: Speci men Type: BLOOD SPECIMENOrdering Facility: [facility] Address: [address] [place] [address] Performed By: #### 5 8410-2 ####[facility]CL[facility] LABORATORYCLIA [id number] [place] [address] [place] RBC (Bld) [#/Vol] 4.89 10*6/uL Normal 4.20-6.00 [facility] Comment on above: Order Comment: Speci men Type: BLOOD SPECIMENOrdering Facility: [facility] Address: [address] [address] Performed By: #### 5 8410-2 ####[facility]ENTER[facility]ID LABORATORYCLIA [id number] [place] [address] [place] WBC (Bld) [#/Vol] 16.35 10*3/uL High 3.70-11.00 [facility] Comment on above: Order Comment: Speci men Type: BLOOD SPECIMENOrdering Facility: [facility] Address: [address] [place] [address] Performed By: #### 5 8410-2 ####EUCL[facility] LABORATORYCLIA [id number] [place] [address] [facility] CNDSon 05-09-2022 CNDS HNO ID: [id number] Author: Suellen Armstrong APRN.MONOTYPE MECHANIC Service: General Internal Medicine Author Type: Nurse Practitioner Type: Discharge Summary Filed: 05/09/2022 12:53 PM Note Text: Attestation signed by Estefanía Pa V, MD at 06/16/2022 10:47 AM Estefanía Pa MD DISCHARGE SUMMARY PATIENT NAME: Mayito Forbes ADMISSION DATE: 05/07/2022 DISCHARGE DATE: 05/09/2022 ATTENDING PHYSICIAN: Estefanía Pa V, MD Code Status: Not on file Highest Readmission Risk Score: 10 The 30 day readmissions risk score is derived from an internally validated risk model which evaluates patient level characteristics, utilization history, medication orders and lab results up until the day of discharge. Patients with a score of 40 or above are considered highest risk for readmission. Specific patient level drivers will be listed at the bottom of the summary. The 30 day readmissions risk score is derived from an internally validated risk model which evaluates patient level characteristics, utilization history, medication orders and lab results up until the day of discharge. Patients with a score of 40 or above are considered highest risk for readmission. Specific patient level drivers will be listed at the bottom of the summary. 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 Withdrawal symptoms were treated with prn tramadol, ativan and zofran. He improved over night, was seen by psych and deemed stable to return to [facility] Transitions of Care Critical Issues: Plan is for patient to return to [facility] to complete recovery program LABS AND PROCEDURES PENDING AT DISCHARGE: No pending results. Operations During Hospitalization: Additional Provider to Provider Information: Principal Problem (Resolved): Nausea and vomiting in adult POA: Yes Active Problems: Nicotine use disorder, F17.2 POA: Unknown Obesity, Class II, BMI 35-39.9 POA: Unknown Consulting Teams During Hospitalization: Treatment Team: Attending Provider: Estefanía Pa V, MD Consulting: Néstor Gagnon MD Additional Health Information I Need to Know After I Leave the Hospital: FOLLOW-UP APPOINTMENTS ALREADY SCHEDULED WITH A [facility] PROVIDER No future appointments. DISCHARGE MEDICATION: Current Discharge Medication List START taking these medications gabapentin (NEURONTIN) 600 mg Take 600 mg by mouth every 12 hours. CONTINUE these medications which have NOT CHANGED venlafaxine ER (EFFEXOR XR) 150 mg Take 150 mg by mouth daily at bedtime. Discharge Physical Exam: VITAL SIGNS: BP 143/94 Pulse 82 Temp 37 ?C (98.6 ?F) (Oral) Resp 18 Ht 157.5 cm (5' 2) Wt 89.3 kg (196 lb 14.4 oz) SpO2 93% BMI 36.01 kg/m? The patient's risk for 30-day readmission is determined using the following contributing factors: The patient's risk for 30-day readmission is determined using the following contributing factors: Pt variables contributing to increased readmission risk: 18 Active Medication Orders 10.3 First Resulted Calcium During Admission 8 Most Recent BUN Result 1 Previous ED Visit (6 mos.)? 1 Number of Previous ED Visits (6 mos.) 1 Insurance - Medicaid 1 Discharge Disposition - Home TIME OF CARE: Discharge Management: I personally spent greater than 30 minutes involved in the discharge management of this patient. SIGNATURE: Suellen Armstrong APRN.CNP DATE: May 09, 2022 TIME: 12:52 PM [facility] CONSULTon 05-09-2022 CONSULT HNO ID: [id number] Author: Néstor Gagnon MD Service: Psychiatry Author Type: Physician Type: Consults Filed: 05/10/2022 10:08 AM Note Text: CL NEW - PSYCHIATRY INITIAL CONSULTATION NOTE SERVICE DATE: May 09, 2022 SERVICE TIME: 12:07 PM CONSULTING SERVICE : Psychiatry, requested by REASON FOR CONSULTATION: Substance abuse. IDENTIFYING INFO: Mr. Forbes is a 36 year old male from [place], [place]. HISTORY OF PRESENT ILLNESS : 36 year old from [place] for N/V. COLLATERAL INFORMATION: Epic and patient PSYCHIATRIC REVIEW OF SYMPTOMS: Depression: Denies any current symptoms of depression with no suicidal thoughts, intent or plan Rupa: Denies any history of hypomanic or manic episodes. Psychosis: Denies any auditory / visual hallucination or paranoid ideation. KRISTINA: Denies any symptoms of KRISTINA Panic: Denies any symptoms of panic. OCD: Denies any symptoms of OCD. PTSD: Denies any PTSD symptoms. The remainder was reviewed and unremarkable. MEDICAL REVIEW OF SYSTEMS: Pertinent Positives: Denies The remainder was reviewed and unremarkable. PSYCHIATRIC HISTORY: Diagnoses: Substance Abuse; MDD Current Psychiatrist: At [facility] for detox now. Current Therapist: None Psychiatric Hospitalization(s): None History of Suicide Attempts: None Previous Psychiatric Medication Trials: No recall Current Outpatient Psychiatric Medications: Effexor SUBSTANCE ABUSE HISTORY: Alcohol: No history of use or dependence Marijuana: No history of use or dependence Cocaine: No history of use or dependence Opioids: Abuse Other Substance Use: Nicotine SOCIAL HISTORY: Relationships: single Living Situation: own place FAMILY PSYCHIATRIC HISTORY: None No family history on file. PAST MEDICAL HISTORY Diagnosis Date Psychiatric disorder No past surgical history on file. Current Facility-Administered Medications Medication Dose Route Frequency sodium chloride 0.9 % (flush) 3-5 mL (BD POSIFLUSH) 3-5 mL INTRAVENOUS q 12 H NaCl 0.9% iv infusion 125 mL/hr INTRAVENOUS CONTINUOUS venlafaxine ER 150 mg cap(s) (EFFEXOR XR) 150 mg ORAL AT BEDTIME sodium chloride 0.9 % (flush) 3-5 mL (BD POSIFLUSH) 3-5 mL INTRAVENOUS q 12 H naloxone 0.4 mg injection (NARCAN) 0.4 mg INTRAMUSCULAR PRN traZODone 50 mg tab(s) (DESYREL) 50 mg ORAL AT BEDTIME PRN metoclopramide HCl 10 mg tab(s) (REGLAN) 10 mg ORAL q 6 H PRN ondansetron orally disintegrating 4 mg tab(s) (ZOFRAN ODT) 4 mg ORAL q 6 H Or ondansetron (PF) 4 mg injection (ZOFRAN) 4 mg INTRAVENOUS q 6 H traMADol 100 mg tab(s) (ULTRAM) 100 mg ORAL q 4 HR Followed by traMADol 100 mg tab(s) (ULTRAM) 100 mg ORAL q 6 HR Followed by [START ON 05/10/2022] traMADol 100 mg tab(s) (ULTRAM) 100 mg ORAL q 8 HR Followed by [START ON 05/11/2022] traMADol 50 mg tab(s) (ULTRAM) 50 mg ORAL q 6 HR Followed by [START ON 05/13/2022] traMADol 50 mg tab(s) (ULTRAM) 50 mg ORAL q 8 HR LORazepam 0.5 mg tab(s) (ATIVAN) 0.5 mg ORAL q 6 H PRN gabapentin 600 mg cap(s) (NEURONTIN) 600 mg ORAL q 12 H NaCl 0.9% iv flush bag 20 mL INTRAVENOUS PRN ALLERGIES No Known Allergies PATIENT DATA: Generalized Anxiety Disorder Scale (KRISTINA-7) No flowsheet data found.(0-4) minimal anxiety, (5-9) mild anxiety, (10-14) moderate anxiety, (15-21) severe anxiety Patient Health Questionnaire (PHQ-9) No flowsheet data found.(0-4) minimal depression, (5-9) mild depression, (10-14) moderate depression, (15-19) moderately severe depression, (20-27) severe depression PROMIS [employer] No flowsheet data found. VITAL SIGNS: 05/08/22 0849 05/08/22 1554 05/09/22 0009 05/09/22 0814 BP: 135/82 142/93 149/96 143/94 Pulse: 83 80 106 82 Resp: 17 17 18 18 Temp: 36.6 ?C (97.9 ?F) 36.8 ?C (98.2 ?F) 37 ?C (98.6 ?F) 37 ?C (98.6 ?F) TempSrc: Oral Oral Axillary Oral SpO2: 99% 98% 92% 93% Weight: Height: PHYSICAL EXAMINATION: Muscle Tone/Strength: No rigidity, tremor, hyperreflexia, or clonus noted. Moved extremities against gravity. Gait / Station : Did not assess MENTAL STATUS EXAMINATION: Appearance: Well dressed, well groomed Behavior: Engaged readily. Psychomotor: No psychomotor agitation. Cognition Level of Consciousness: Awake and alert. No fluctuation in wakefulness. Orientation: Person, place, time and situation Memory: Intact Attention/Concentration : Full Fund of Knowledge: Able to demonstrate an awareness of current events. Mood: Euthymic Affect: Mood-congruent and reactive within a normal range. Speech/Language: Appropriate tone, prosody, joselin, phonetics, and syntax Thought Form: Coherent and Goal-directed. No loosening of associations. Thought Content: No delusions noted or endorsed. Perceptual Disturbances: Did not appear to respond to auditory stimuli. Safety: Suicidal Ideations: No suicidal ideation, intent or plan. Homicidal Ideations: No homicidal ideation, intent or plan. Insight: Recognized the (more content not included)... [facility] NURSING PROGon 05-09-2022 NURSING PROG HNO ID: [id number] Author: Suzy Larry RN Service: Nursing Author Type: Registered Nurse Type: Nursing Progress Note Filed: 05/09/2022 2:30 PM Note Text: 0745- patient asking to take a shower, pt informed that we need an order from the doctor in order for him to take a shower. Told he was unable to leave the room to shower until we had an order 0900- Patient found in shower room that was filled with items taking shower. Patient had called saying he needed towels and soap and refused to tell us who took him into the shower room that the floor does not use, as it is used for storage currently.Patient told he is not allowed to take another shower until we get an order from the doctor, patient agreed at this time he wouldn't leave the room again. Will cont to monitor patients activity closely. 1430- Patient being dc home. He was discharged from rehab so no bed is available at this time. [facility] NURSING PROG HNO ID: [id number] Author: Fahad Payne RN Service: ? Author Type: Registered Nurse Type: Nursing Progress Note Filed: 05/09/2022 7:57 AM Note Text: Other: 1900 Assumed care of pt 1953 Shift assessment completed, pt AANDOx2, room air, IV patent AND infusing IVF. Medications given at this time per MAR, scheduled tramadol given for pain, ativan given for anxiety/nausea. No further needs noted. 2320 Zofran given for nausea, PO meds declined at this time. 0107 Pt given reglan for nausea AND scheduled ultram. Pt cleaned for stool incontinence. 0645 HO notified that Pt flagged for sepsis. No new orders. Normal [facility] Basic metabolic 2000 panelon 05-08-2022 Anion gap [Moles/Vol] 14 mmol/L Normal 9-18 [facility] Comment on above: Order Comment: Speci men Type: BLOOD SPECIMEN [facility] Address: [address] [address] Performed By: #### 2 4320-06, #### [facility] CLIA [id number] [place] [address] [place] Calcium [Mass/Vol] 9.1 mg/dL Normal 8.5-10.2 [facility] Comment on above: Order Comment: Speci men Type: BLOOD SPECIMEN [facility] Address: [address] [address] Performed By: #### 2 4320-06, #### [facility] CLIA [id number] [address] [place] [address] [place] Chloride [Moles/Vol] 105 mmol/L Normal 97-105 [facility] Comment on above: Order Comment: Speci men Type: BLOOD SPECIMEN [facility] Address: [address] [address] Performed By: #### 2 4320-06, #### [facility] CLIA [id number] [place] [address] [place] CO2 [Moles/Vol] 20 mmol/L Low 22-30 [facility] Comment on above: Order Comment: Speci men Type: BLOOD SPECIMEN [facility] Address: [address] [address] Performed By: #### 2 4320-06, #### [facility] CLIA [id number] [address] [place] [address] [place] Creatinine [Mass/Vol] 0.69 mg/dL Low 0.73-1.22 [facility] Comment on above: Order Comment: Nicolás dickson Type: BLOOD SPECIMEN [facility] Address: [address] [address] Performed By: #### 2 432-2, #### [facility] CLIA [id number] [place] [address] [place] ESTIMATED GLOMERULAR FILTRATION RATE 123 mL/min/1.73m??? Normal >=60 [facility] Comment on above: Order Comment: Nicolás dickson Type: BLOOD SPECIMEN [facility] Address: [address] [place] [address] Result Comment: Jaymie mated Glomerular Filtration Rate (eGFR) is calculated using the 2020 CKD-EPI creatinine equation. This equation utilizes serum creatinine, sex, and age as parameters. The creatinine assay has traceable calibration to isotope dilution-mass spectrometry. Refer to KDIGO guidelines for clinical interpretation. In patients with unstable renal function, e.g. those with acute kidney injury, the eGFR may not accurately reflect actual GFR. Performed By: #### 2 432-, #### [facility] CLIA [id number] [place] [address] [place] Glucose [Mass/Vol] 124 mg/dL High 74-99 [facility] Comment on above: Order Comment: Nicolás dickson Type: BLOOD SPECIMEN [facility] Address: [address] [address] Result Comment: The [place] Diabetes Association (ADA) provides guidance for cutoff values for fasting glucose and random glucose. The ADA defines fasting as no caloric intake for at least 8 hours. Fasting plasma glucose results between 100 to 125 mg/dL indicate increased risk for diabetes (prediabetes). Fasting plasma glucose results greater than or equal to 126 mg/dL meet the criteria for diagnosis of diabetes. In the absence of unequivocal hyperglycemia, results should be confirmed by repeat testing. In a patient with classic symptoms of hyperglycemia or hyperglycemic crisis, random plasma glucose results greater than or equal to 200 mg/dL meet the criteria for diagnosis of diabetes. Reference: Standards of Medical Care in Diabetes 2016, [place] Diabetes Association. Diabetes Care. 2016.39(Suppl 1). Performed By: #### 2 4320-2, #### [facility] CLIA [id number] [address] [place] [address] [place] Potassium [Moles/Vol] 3.5 mmol/L Low 3.7-5.1 [facility] Comment on above: Order Comment: Speci men Type: BLOOD SPECIMEN [facility] Address: [address] [place] [address] Performed By: #### 2 4320-06, #### [facility] CLIA [id number] [place] Sodium [Moles/Vol] 139 mmol/L Normal 136-144 [facility] Comment on above: Order Comment: Nicolás dickson Type: BLOOD SPECIMEN [facility] Address: [address] [address] Performed By: #### 2 4320-06, #### [facility] CLIA [id number] [place] Urea nitrogen [Mass/Vol] 7 mg/dL Low 9-24 [facility] Comment on above: Order Comment: Nicolás dickson Type: BLOOD SPECIMEN [facility] Address: [address] [address] Performed By: #### 2 4320-06, #### [facility] CLIA [id number] [address] [place] [address] [place] CASE MGT INIT Yefri 2021 CASE MGT INIT ASSES HNO ID: [id number] Author: Radha Alex RN Service: ? Author Type: Registered Nurse Type: Care Mgt Initial Assessment Filed: 05/08/2022 9:08 AM Note Text: CARE MANAGEMENT: ASSESSMENT AND DISCHARGE PLAN SERVICE DATE: May 08, 2022 SERVICE TIME: 0900 PRIMARY CARE PHYSICIAN: No primary care provider on file. Phone: None Primary Contact: Extended Emergency Contact Information Primary Emergency Contact: Cecy Forbes Relation: Grandparent ADMISSION STATUS: Observation Insurance Provider: [employer] MEDICAID NEEDS PRIOR TO DISCHARGE Needs Prior to Discharge: Other: See Comment (med clear) POTENTIAL TRANSITION PLANS Home Based on clinical judgement, Care Management will address the following needs: Medical Patient's perception of need for this admission: states understanding ADVANCE DIRECTIVES Current Advance Directive: None Senior User Experience Architect Attempted to Assist with AD Completion: Yes Action: Patient Unwilling MS/BEHAVIOR Baseline Mental Status Prior to this Illness what was the patient's Baseline Mental Status?: Alert AND Oriented Prior to this illness, has anyone described the patient having any of the following behaviors?: Not Applicable Relationship of the informant to the patient:: Self READMISSION Last Discharge Date: N/A Is this Within the Past 30 days? From what level of care did patient present?: Home Last discharge within 30 days: No PATIENT SCREEN Patient/Workforce Planning Analyst Stated Goals: To have reduction in symptoms;To return home to life as it was Under the care of a PCP?: No Does the patient have transportation upon discharge?: Yes Situation: GF Use of any community resources?: No Does the patient have a stable and supportive living arrangement and home setting?: Yes Situation: independent at home with GF Are there any potential risks or gaps identified by risk/functional/fall,et c. scores in the EMR?: No Any potential risks related to substance abuse and/or behavioral health?: No Based on clinical judgement, Care Management will address the following needs: Medical CAREGIVER ASSESSMENT Caregiver is ready, willing and able to meet the patient's needs as recommended by the inter-professional team:: No Caregiver needed MEDICAL No medical discharge barriers identified at this time. No social discharge barriers identified at this time. No behavioral/cognitive discharge barriers identified at this time. No functional discharge barriers identified at this time. FREEDOM OF CHOICE EXPLAINED: [place] of Choice Given: No Reason Not Given: No placements necessary Are you interested in bedside delivery of your medications? No ASSESSMENT AND PLAN: Met with pt. Pt is independent at home with GF in [place]. Pt is currently staying at [facility] for opiate abuse. Anticipate return to [facility] when cleared. Admitted obs for N/V. TCC/SW to follow for discharge needs. SIGNATURE: Radha Alex RN PATIENT NAME: Mayito Forbes DATE: May 08, 2022 TIME: 9:03 AM CONTACT #: [phone] Normal [facility] CBC panel Auto (Bld)on 05-08 Erythrocyte distribution width (RBC) [Ratio] 13.7 % Normal 11.5-15.0 [facility] Comment on above: Order Comment: Speci men Type: BLOOD SPECIMENOrdering Facility: [facility] Address: [address] [address] Performed By: #### 5 8410-2 ####[facility] LABORATORYCLIA [id number] [address] Hematocrit (Bld) [Volume fraction] 41.7 % Normal 39.0-51.0 [facility] Comment on above: Order Comment: Speci men Type: BLOOD SPECIMENOrdering Facility: [facility] Address: [address] [address] Performed By: #### 5 8410-2 ####[facility] LABORATORYCLIA [id number] [address] [place] Hemoglobin (Bld) [Mass/Vol] 14.0 g/dL Normal 13.0-17.0 [facility] Comment on above: Order Comment: Speci men Type: BLOOD SPECIMENOrdering Facility: [facility] Address: [address] [place] [address] Performed By: #### 5 8410-2 ####[facility]ORYCLIA [id number] [address] [place] MCH (RBC) [Entitic mass] 28.4 pg Normal 26.0-34.0 [facility] Comment on above: Order Comment: Speci men Type: BLOOD SPECIMENOrdering Facility: [facility] Address: [address] [address] Performed By: #### 5 8410-2 ####[facility]ATORYCLIA [id number] [place] [address] [place] MCHC (RBC) [Mass/Vol] 33.6 g/dL Normal 30.5-36.0 [facility] Comment on above: Order Comment: Speci men Type: BLOOD SPECIMENOrdering Facility: [facility] Address: [address] [place] [address] Performed By: #### 5 8410-2 ####[facility]ATORYCLIA [id number] [place] [address] [place] MCV (RBC) [Entitic vol] 84.6 fL Normal 80.0-100.0 [facility] Comment on above: Order Comment: Speci men Type: BLOOD SPECIMENOrdering Facility: [facility] Address: [address] [place] [address] Performed By: #### 5 8410-2 ####[facility]ORYCLIA [id number] [place] [address] [place] Nucleated RBC (Bld) [#/Vol] 10*3/uL Normal <0.01 [facility] Comment on above: Order Comment: Speci men Type: BLOOD SPECIMENOrdering Facility: [facility] Address: [address] [place] [address] Performed By: #### 5 8410-2 ####[facility]ORYCLIA [id number] [address] [place] Platelet mean volume (Bld) [Entitic vol] 10.0 fL Normal 9.0-12.7 [facility] Comment on above: Order Comment: Speci men Type: BLOOD SPECIMENOrdering Facility: [facility] Address: [address] [address] Performed By: #### 5 8410-2 ####[facility]ENTER[facility]ID LABORATORYCLIA [id number] [place] [address] [place] Platelets (Bld) [#/Vol] 232 10*3/uL Normal 150-400 [facility] Comment on above: Order Comment: Speci men Type: BLOOD SPECIMENOrdering Facility: [facility] Address: [address] [place] [address] Performed By: #### 5 8410-2 ####[facility]ORY[facility] [id number] [place] [id number] [place] RBC (Bld) [#/Vol] 4.93 10*6/uL Normal 4.20-6.00 [facility] Comment on above: Order Comment: Speci men Type: BLOOD SPECIMENOrdering Facility: [facility] Address: [address] [address] Performed By: #### 5 8410-2 ####[facility]ATORYCLIA [id number] [place] [id number] [place] [facility] WBC (Bld) [#/Vol] 12.13 10*3/uL High 3.70-11.00 [facility] Comment on above: Order Comment: Speci men Type: BLOOD SPECIMENOrdering Facility: [facility] Address: [address] [address] Performed By: #### 5 8410-2 ####[facility]ENTERLID LABORATORYCLIA [id number] [address] OF [facility] HISTORY PHYSICALon HISTORY PHYSICAL HNO ID: [id number] Author: Suellen Armstrong APRN.MONOTYPE MECHANIC Service: General Internal Medicine Author Type: Nurse Practitioner Type: HANDP Filed: 05/08/2022 9:43 PM Note Text: Attestation signed by Estefanía Pa V, MD at 06/16/2022 10:46 AM Estefanía Pa MD INTERNAL MEDICINE HANDP EXAMINATION SERVICE DATE: 05/08/2022 SERVICE TIME: 1615 PRIMARY CARE PHYSICIAN: No primary care provider on file. Subjective CHIEF COMPLAINT: abdominal pain HISTORY OF PRESENT ILLNESS: Mr. Forbes is a 36 year old male who presents with H heroin abuse last use 4 days ago per patient , presenting with complaints of vomiting and abdominal pain. Brought in from [facility], he was given zofran there with no relief. Has had multiple episodes of nonbloody, nonbilious emesis. Liver func WNL, labs grossly normal Patient still very nauseous. C/o withdrawal s/s. No notes from [facility] arrived with patient. Per patient he was on other medications there, he cant remember. Other than 600 neurontin BID, he remembers being on that PAST MEDICAL HISTORY Diagnosis Date Psychiatric disorder No past surgical history on file. No family history on file. MEDICATIONS: venlafaxine ER (EFFEXOR XR) 75 mg 24 hr capsule, Take 150 mg by mouth daily at bedtime., Disp: , Rfl: , Past Week ALLERGIES No Known Allergies COMPLETE REVIEW OF SYSTEMS: GENERAL: Positive for malaise RESPIRATORY: Negative for cough, hemoptysis, wheezing, COPD, dyspnea or shortness of breath CARDIOVASCULAR: Negative for chest pain, leg swelling, hypertension, CHF or palpitations GI: Positive for abdominal discomfort , nausea MUSCULOSKELETAL: Negative for joint pain or swelling, back pain or muscle pain NEURO: No history of headaches, syncope, paralysis, seizures or tremors Objective PHYSICAL EXAM: Patient Vitals for the past 24 hrs: BP Temp Temp src Pulse Resp SpO2 Height Weight 05/08/22 0849 135/82 36.6 ?C (97.9 ?F) Oral 83 17 99 % -- -- 05/08/220 132/86 37.5 ?C (99.5 ?F) Oral 97 18 100 % -- -- 05/08/220 -- -- -- -- -- -- 157.5 cm (5' 2) 89.3 kg (196 lb 14.4 oz) 05/07/222333 140/84 -- -- -- -- -- -- -- 12/09/22 2330 -- -- -- (!) 106 -- 98 % -- -- 05/07/22 2030 152/97 -- -- (!) 96 -- -- -- -- 05/07/221999 153/82 -- -- (!) 93 -- -- -- -- 05/07/22 1930 149/83 -- -- (!) 94 -- -- -- -- 05/07/22 1900 147/86 -- -- (!) 91 -- -- -- -- 05/07/22 1830 144/83 -- -- 87 -- -- -- -- 05/07/22 1800 142/68 -- -- (!) 95 -- -- -- -- 05/07/22 1745 -- -- -- 81 -- 97 % -- -- 05/07/22 1730 154/93 -- -- 85 18 96 % -- -- 05/07/22 1712 135/86 -- -- 81 19 97 % -- -- 05/07/22 1243 146/71 36.3 ?C (97.3 ?F) Temporal (!) 103 20 98 % -- 77.1 kg (170 lb) Body mass index is 36.01 kg/m?. GENERAL: Moderate Distress SKIN: Skin color, texture, turgor normal. No rashes or lesions. OROPHARYNX: Lips, mucosa, and tongue are normal.Teeth and gums, normal. Oropharynx normal. NECK: Carotid pulse normal contour, Supple LUNGS: Lungs clear to auscultation. Good diaphragmatic excursion. CARDIAC: Normal S1 and S2; no rubs, murmurs, or gallops ABDOMEN: Abdomen soft, non-tender, BS normal, No masses or organomegaly EXTREMETIES: Extremities normal, no deformities, edema, clubbing or skin discoloration. Good capillary refill. NEURO: Grossly normal cognition, motor function, and cranial nerves III-XII PULSES: 2+ radial, 2+ dorsalis pedis DATA: Diagnostic tests reviewed for today's visit: Most recent labs and imaging results. Assessment/Plan Nausea and vomiting, unspecified vomiting type Hypomagnesemia Hypokalemia - NPO - IVF - replace lytes - prn zofran Heroin abuse - currently in [facility] Medication and Non-Pharmacologic VTE Prophylaxis/Anticoagula nts 05/08/22 1030 activity - mobilize patient (in,oh) 05/08/22 0100 activity - mobilize patient (in,nd) VTE Prophylaxis: VTE prophylaxis appropriate SIGNATURE: Suellen Armstrong APRN.CNP PATIENT NAME: Mayito Forbes DATE: May 08, 2022 TIME: 10:24 AM Normal [facility] Magnesium [Mass/Vol] 1.6 mg/dL Low 1.7-2.3 [facility] Comment on above: Order Comment: Speci men Type: BLOOD SPECIMEN [facility] Address: [address] [place] [address] Performed By: #### 2 4321-2, 17082-5 #### [facility] CLIA [id number] [place] [address] [place] SARS-CoV-2 RNA Resp Ql KATLYN+p robeon 05-08-2022 SARS-CoV-2 (COVID-19) RNA KATLYN+probe Ql (Resp) COVID 19 RESULT: SARS-CoV-2 (Agent of COVID-19) Not Detected by RT-PCR or equivalent method. This test has been authorized by FDA under an Emergency Use Authorization (EUA). casimiro SARS-CoV-2 AND Influenza A/B Nucleic Acid Test for use on the casimiro Yanna System*_[facility] [employer]EUA This test has been authorized by the FDA under an Emergency Use Authorization (EUA). Normal [facility] Comment on above: Performed By: #### 9 4500-6 ####[facility]D LABORATORYCLIA [id number] [place] [address] [place] CBC W Auto Differential pane l (Bld)on 05-07-2022 Basophils (Bld) [#/Vol] 10*3/uL Normal <0.11 [facility] Comment on above: Order Comment: Speci men Type: BLOOD SPECIMENOrdering Facility: [facility] Address: [address] [place] [address] Performed By: #### 5 7021-8 ####[facility]ORATORYCLIA [id number] [place] [address] [place] Basophils/100 WBC (Bld) 0.2 % Normal [facility] Comment on above: Order Comment: Speci men Type: BLOOD SPECIMENOrdering Facility: [facility] Address: [address] [address] Performed By: #### 5 7021-8 ####[facility] LABORATORYCLIA [id number] [place] [address] [place] Differential cell count method Nom (Bld) Auto Normal [facility] Comment on above: Order Comment: Speci men Type: BLOOD SPECIMENOrdering Facility: [facility] Address: [address] [place] [address] Performed By: #### 5 7021-8 ####[facility]ORATORYCLIA [id number] [place] [address] [place] Eosinophils (Bld) [#/Vol] 10*3/uL Normal <0.46 [facility] Comment on above: Order Comment: Speci men Type: BLOOD SPECIMENOrdering Facility: [facility] Address: [address] [place] [address] Performed By: #### 5 7021-8 ####[facility]ORATORYCLIA [id number] [address] [place] Eosinophils/100 WBC (Bld) 0.2 % Normal [facility] Comment on above: Order Comment: Speci men Type: BLOOD SPECIMENOrdering Facility: [facility] Address: [address] [address] Performed By: #### 5 7021-8 ####[facility]ORATORYCLIA [id number] [place] [address] [place] Erythrocyte distribution width (RBC) [Ratio] 13.4 % Normal 11.5-15.0 [facility] Comment on above: Order Comment: Speci men Type: BLOOD SPECIMENOrdering Facility: [facility] Address: [address] [place] [address] Performed By: #### 5 7021-8 ####[facility] LABORATORYCLIA [id number] [place] [address] [place] Hematocrit (Bld) [Volume fraction] 45.2 % Normal 39.0-51.0 [facility] Comment on above: Order Comment: Speci men Type: BLOOD SPECIMENOrdering Facility: [facility] Address: [address] [place] [address] Performed By: #### 5 7021-8 ####[facility] LABORATORYCLIA [id number] [place] [address] [place] Hemoglobin (Bld) [Mass/Vol] 15.3 g/dL Normal 13.0-17.0 [facility] Comment on above: Order Comment: Speci men Type: BLOOD SPECIMENOrdering Facility: [facility] Address: [address] [place] [address] Performed By: #### 5 7021-8 ####[facility] LABORATORYCLIA [id number] [address] [place] Immature granulocytes (Bld) [#/Vol] 0.05 10*3/uL Normal <0.10 [facility] Comment on above: Order Comment: Speci men Type: BLOOD SPECIMENOrdering Facility: [facility] Address: [address] [place] [address] Performed By: #### 5 7021-8 ####[facility] LABORATORYCLIA [id number] [address] [place] Immature granulocytes/100 WBC (Bld) 0.4 % Normal [facility] Comment on above: Order Comment: Speci men Type: BLOOD SPECIMENOrdering Facility: [facility] Address: [address] [place] [address] Performed By: #### 5 7021-8 ####[facility] LABORATORYCLIA [id number] [place] [address] [place] Lymphocytes (Bld) [#/Vol] 0.83 10*3/uL Low 1.00-4.00 [facility] Comment on above: Order Comment: Speci men Type: BLOOD SPECIMENOrdering Facility: [facility] Address: [address] [address] Performed By: #### 5 7021-8 ####[facility]ENTERLID LABORATORYCLIA [id number] [address] [place] Lymphocytes/100 WBC (Bld) 6.8 % Normal [facility] Comment on above: Order Comment: Speci men Type: BLOOD SPECIMENOrdering Facility: [facility] Address: [address] [address] Performed By: #### 5 7021-8 ####[facility]ENTERLID LABORATORYCLIA [id number] [place] [address] [place] MCH (RBC) [Entitic mass] 28.4 pg Normal 26.0-34.0 [facility] Comment on above: Order Comment: Speci men Type: BLOOD SPECIMENOrdering Facility: [facility] Address: [address] [address] Performed By: #### 5 7021-8 ####[facility] LABORATORYCLIA [id number] [address] [place] MCHC (RBC) [Mass/Vol] 33.8 g/dL Normal 30.5-36.0 [facility] Comment on above: Order Comment: Speci men Type: BLOOD SPECIMENOrdering Facility: [facility] Address: [address] [address] Performed By: #### 5 7021-8 ####[facility] LABORATORYCLIA [id number] [address] [place] MCV (RBC) [Entitic vol] 83.9 fL Normal 80.0-100.0 [facility] Comment on above: Order Comment: Speci men Type: BLOOD SPECIMENOrdering Facility: [facility] Address: [address] [address] Performed By: #### 5 7021-8 ####[facility] LABORATORYCLIA [id number] [place] [address] [place] Monocytes (Bld) [#/Vol] 0.26 10*3/uL Normal <0.87 [facility] Comment on above: Order Comment: Speci men Type: BLOOD SPECIMENOrdering Facility: [facility] Address: [address] [place] [address] Performed By: #### 5 7021-8 ####[facility] LABORATORYCLIA [id number] [place] [address] [place] Monocytes/100 WBC (Bld) 2.1 % Normal [facility] Comment on above: Order Comment: Speci men Type: BLOOD SPECIMENOrdering Facility: [facility] Address: [address] [place] [address] Performed By: #### 5 7021-8 ####[facility] LABORATORYCLIA [id number] [place] [address] [place] Neutrophils (Bld) [#/Vol] 10.98 10*3/uL High 1.45-7.50 [facility] Comment on above: Order Comment: Speci men Type: BLOOD SPECIMENOrdering Facility: [facility] Address: [address] [place] [address] Performed By: #### 5 7021-8 ####[facility] LABORATORYCLIA [id number] [place] [address] [place] Neutrophils/100 WBC (Bld) 90.3 % Normal [facility] Comment on above: Order Comment: Speci men Type: BLOOD SPECIMENOrdering Facility: [facility] Address: [address] [place] [address] Performed By: #### 5 7021-8 ####[facility] LABORATORYCLIA [id number] [place] [address] [place] Nucleated RBC (Bld) [#/Vol] 10*3/uL Normal <0.01 [facility] Comment on above: Order Comment: Speci men Type: BLOOD SPECIMENOrdering Facility: [facility] Address: [address] [address] Performed By: #### 5 7021-8 ####[facility]ENTERLID LABORATORYCLIA [id number] [place] [address] [place] Nucleated RBC/100 WBC (Bld) [Ratio] 0.0 /100 WBC Normal [facility] Comment on above: Order Comment: Speci men Type: BLOOD SPECIMENOrdering Facility: [facility] Address: [address] [address] Performed By: #### 5 7021-8 ####[facility]ENTERLID LABORATORYCLIA [id number] [place] [address] [place] Platelet mean volume (Bld) [Entitic vol] 8.7 fL Low 9.0-12.7 [facility] Comment on above: Order Comment: Speci men Type: BLOOD SPECIMENOrdering Facility: [facility] Address: [address] [place] [address] Performed By: #### 5 7021-8 ####[facility]ENTERLID LABORATORYCLIA [id number] [place] [address] [place] Platelets (Bld) [#/Vol] 342 10*3/uL Normal 150-400 [facility] Comment on above: Order Comment: Speci men Type: BLOOD SPECIMENOrdering Facility: [facility] Address: [address] [place] [address] Performed By: #### 5 7021-8 ####[facility]ENTERLID LABORATORYCLIA [id number] [place] [address] [place] RBC (Bld) [#/Vol] 5.39 10*6/uL Normal 4.20-6.00 [facility] Comment on above: Order Comment: Speci men Type: BLOOD SPECIMENOrdering Facility: [facility] Address: [address] [place] [address] Performed By: #### 5 7021-8 ####[facility]ENTERLID LABORATORYCLIA [id number] [place] [address] [place] WBC (Bld) [#/Vol] 12.16 10*3/uL High 3.70-11.00 [facility] Comment on above: Order Comment: Speci men Type: BLOOD SPECIMENOrdering Facility: [facility] Address: [address] [address] Performed By: #### 5 7021-8 ####[facility] LABORATORYCLIA [id number] [place] [address] [facility] Comprehensive metabolic 2000 panelon 05-07-2022 Albumin [Mass/Vol] 4.7 g/dL Normal 3.9-4.9 [facility] Comment on above: Order Comment: Speci men Type: BLOOD SPECIMEN [facility] Address: [address] [place] [address] Performed By: #### 2 4323-8, , 0-3 #### [facility] CLIA [id number] [place] [address] [place] ALP [Catalytic activity/Vol] 107 U/L Normal 38-113 [facility] Comment on above: Order Comment: Speci men Type: BLOOD SPECIMEN [facility] Address: [address] [place] [address] Performed By: #### 2 4323-8, , 0-3 #### [facility] CLIA [id number] [place] ALT [Catalytic activity/Vol] 39 U/L Normal 10-54 [facility] Comment on above: Order Comment: Speci men Type: BLOOD SPECIMEN [facility] Address: [address] [place] [address] Performed By: #### 2 4323-8, , 0-3 #### [facility] CLIA [id number] [address] [place] [address] [place] Anion gap [Moles/Vol] 17 mmol/L Normal 9-18 [facility] Comment on above: Order Comment: Speci men Type: BLOOD SPECIMEN [facility] Address: [address] [address] Performed By: #### 2 4323-8, , 3 #### [facility] CLIA [id number] [place] [address] [place] AST [Catalytic activity/Vol] 24 U/L Normal 14-40 [facility] Comment on above: Order Comment: Speci men Type: BLOOD SPECIMEN [facility] Address: [address] [address] Performed By: #### 2 4323-8, , 3 #### [facility] CLIA [id number] [id number] [place] [address] [place] Bilirubin [Mass/Vol] 0.3 mg/dL Normal 0.2-1.3 [facility] Comment on above: Order Comment: Speci men Type: BLOOD SPECIMEN [facility] Address: [address] [address] Performed By: #### 2 432-8, , 3 #### [facility] CLIA [id number] [place] [address] [place] Calcium [Mass/Vol] 10.3 mg/dL High 8.5-10.2 [facility] Comment on above: Order Comment: Speci men Type: BLOOD SPECIMEN [facility] Address: [address] [address] Performed By: #### 2 4323-8, , 3 #### [facility] CLIA [id number] [place] [address] [place] Chloride [Moles/Vol] 102 mmol/L Normal 97-105 [facility] Comment on above: Order Comment: Speci men Type: BLOOD SPECIMEN [facility] Address: [address] [address] Performed By: #### 2 4323-8, , 3039-3 #### [facility] CLIA [id number] [address] [place] [address] [place] CO2 [Moles/Vol] 23 mmol/L Normal 22-30 [facility] Comment on above: Order Comment: Nicolás dickson Type: BLOOD SPECIMEN [facility] Address: [address] [address] Performed By: #### 2 4323-8, 20603-5, 0-3 #### [facility] CLIA [id number] [place] [address] [place] Creatinine [Mass/Vol] 0.77 mg/dL Normal 0.73-1.22 [facility] Comment on above: Order Comment: Nicolás dickson Type: BLOOD SPECIMEN [facility] Address: [address] [place] [address] Performed By: #### 2 4323-8, 41472-8, 3039-3 #### [facility] CLIA [id number] [place] ESTIMATED GLOMERULAR FILTRATION RATE 119 mL/min/1.73m??? Normal >=60 [facility] Comment on above: Order Comment: Nicolás dickson Type: BLOOD SPECIMEN [facility] Address: [address] [place] [address] Result Comment: Jaymie mated Glomerular Filtration Rate (eGFR) is calculated using the 2020 CKD-EPI creatinine equation. This equation utilizes serum creatinine, sex, and age as parameters. The creatinine assay has traceable calibration to isotope dilution-mass spectrometry. Refer to KDIGO guidelines for clinical interpretation. In patients with unstable renal function, e.g. those with acute kidney injury, the eGFR may not accurately reflect actual GFR. Performed By: #### 2 4323-8, 65218-3, 0-3 #### [facility] CLIA [id number] [address] [place] [address] [place] Glucose [Mass/Vol] 124 mg/dL High 74-99 [facility] Comment on above: Order Comment: Nicolás dickson Type: BLOOD SPECIMEN [facility] Address: [address] [place] [address] Result Comment: The [place] [employer] (ADA) provides guidance for cutoff values for fasting glucose and random glucose. The ADA defines fasting as no caloric intake for at least 8 hours. Fasting plasma glucose results between 100 to 125 mg/dL indicate increased risk for diabetes (prediabetes). Fasting plasma glucose results greater than or equal to 126 mg/dL meet the criteria for diagnosis of diabetes. In the absence of unequivocal hyperglycemia, results should be confirmed by repeat testing. In a patient with classic symptoms of hyperglycemia or hyperglycemic crisis, random plasma glucose results greater than or equal to 200 mg/dL meet the criteria for diagnosis of diabetes. Reference: Standards of Medical Care in Diabetes 2016, [place] [employer]. Diabetes Care. 2016.39(Suppl 1). Performed By: #### 2 4323-8, , 3 #### [facility] CLIA [id number] [place] [address] [place] Protein [Mass/Vol] 8.2 g/dL High 6.3-8.0 [facility] Comment on above: Order Comment: Speci men Type: BLOOD SPECIMEN [facility] Address: [address] Performed By: #### 2 4323-8, , 3 #### [facility] CLIA [id number] [address] [address] [place] [id number] [place] Sodium [Moles/Vol] 142 mmol/L Normal 136-144 [facility] Comment on above: Order Comment: Speci men Type: BLOOD SPECIMEN [facility] Address: [address] [id number] Performed By: #### 2 4323-8, , 3 #### [facility] CLIA [id number] [place] [address] [place] Urea nitrogen [Mass/Vol] 10 mg/dL Normal 9-24 [facility] Comment on above: Order Comment: Speci men Type: BLOOD SPECIMEN [facility] Address: [address] [address] Performed By: #### 2 4323-8, 18089-2, 3040-3 #### [facility] CLIA [id number] [address] [address] [place] [id number] [facility] ECG COMPLETEon 05-07-2022 ECG COMPLETE Ventricular Rate : 7 7 BPM Atrial Rate : 77 BPM P-R Interval : 174 ms QRS Duration : 80 ms Q-T Interval : 394 ms QTC Calculation(Bazett) : 445 ms Calculated P [place] : 61 degrees Calculated R [place] : 28 degrees Calculated T [place] : 13 degrees NORMAL SINUS RHYTHM NORMAL ECG NO PREVIOUS ECGS AVAILABLE NO STEMI Confirmed by ÁNGELA TORRES MD ([id number]), editor in chief ZULEMA GILLILAND ([id number]) on 05/08/2022 2:41:21 PM NAME : MAYITO FORBES PID : [id number] : 1985 Gender : Male Race : ORD : [id number] Procedure Date : May 07 2022 16:20:18 Edit Date : May 08 2022 14:41:22 Diagnosis: NORMAL SINUS RHYTHM NORMAL ECG NO PREVIOUS ECGS AVAILABLE NO STEMI Confirmed by ÁNGELA TORRES MD ([id number]), editor in chief ZULEMA GILLILAND ([id number]) on 05/08/2022 2:41:21 PM Test Reason : Chest Pain Location : 80 : [facility] CC Overread By : ÁNGELA TORRES MD Edited By : ZULEMA GILLILAND Referred By : , Acquired by : DARIO SALAZAR [facility] ED NOTEon 05-07-2022 ED NOTE HNO ID: [id number] Author: Leda Doshi RN Service: ? Author Type: Registered Nurse Type: ED Notes Filed: 05/07/2022 8:13 PM Note Text: Per Dr. Bahena pt to be admitted for observation. [facility] ED NOTE HNO ID: [id number] Author: Leda Doshi RN Service: ? Author Type: Registered Nurse Type: ED Notes Filed: 05/07/2022 8:02 PM Note Text: Provided pt with popsicles for PO challenge [facility] ED NOTE HNO ID: [id number] Author: Rashida Encinas RN Service: ? Author Type: Registered Nurse Type: ED Notes Filed: 05/07/2022 4:15 PM Note Text: EKG paged. [facility] ED NOTE HNO ID: [id number] Author: Rashida Encinas RN Service: ? Author Type: Registered Nurse Type: ED Notes Filed: 05/07/2022 4:14 PM Note Text: IV attempted. [facility] ED NOTE HNO ID: [id number] Author: Elle Fontanez RN Service: ? Author Type: Registered Nurse Type: ED Notes Filed: 05/07/2022 1:59 PM Note Text: Pt able to use hands to hold emesis bag and spit into it without difficulty [facility] ED NOTE HNO ID: [id number] Author: Elle Fontanez RN Service: ? Author Type: Registered Nurse Type: ED Notes Filed: 05/07/2022 1:20 PM Note Text: Pt was wheeled to bathroom since he stated he has to use the restroom. When checking on patient in restroom, patient had thrown up all over floor rather than emesis bag he was given. Pt then stating he can't hold anything because his hands won't grab anything because he is dehydrated. Pt then stating he feels too weak to get self off toilet. Additional RN's and officer assisted patient from toilet back to wheelchair, pt provided another emesis bag refusing to grab it so placed into lap and reminded to use it when needed. Pt placed back into lobby in view of triage desk [facility] ED NOTE HNO ID: [id number] Author: Elle Fontanez RN Service: ? Author Type: Registered Nurse Type: ED Notes Filed: 05/07/2022 12:42 PM Note Text: Pt now continuously throwing up in triage [facility] ED NOTE HNO ID: [id number] Author: Elle Fontanez RN Service: ? Author Type: Registered Nurse Type: ED Notes Filed: 05/07/2022 1:21 PM Note Text: Pt to the ER from [facility] for nausea and vomiting that started this morning. [place] gave patient zofran and bentyl [employer]. EMS states patient now refusing to converse but when he was on the way, pt was Aox4. Pt nods head yes and no to triage questions Pt was just admitted to [facility] on 05/04 [facility] ED PROV NOTEon 05-07-2022 ED PROV NOTE HNO ID: [id number] Author: Ángela Torres MD Service: Emergency Medicine Author Type: Physician Type: ED Provider Notes Filed: 05/08/2022 1:01 AM Note Text: ED Provider Note Patient Name: Mayito Forbes SERVICE DATE: 05/07/22 History Patient presents with: Nausea AND Vomiting Abdominal Pain HPI Mayito Forbes is a 36 year old male with PMH heroin abuse presenting with complaints of vomiting and abdominal pain. The patient was reportedly brought from [facility] for nausea and vomiting. Per report, the patient was given Zofran at the treatment center prior to transfer to the ED. The patient states he has been vomiting since this morning with countless episodes of nonbloody nonbilious emesis. He states he has some periumbilical abdominal pain that he describes as sharp, rates 8 out of 10 in intensity, states is intermittent. He denies radiation of his abdominal pain. He states he had 1 episode of diarrhea today but denies black or bloody stool. He states that he has had similar vomiting episodes in the past with the last one occurring over a week ago. He states the Zofran he received at the treatment center did not help him at all. PAST MEDICAL HISTORY Diagnosis Date Psychiatric disorder Surgical history: denies history of abdominal surgery Social history: endorses history of heroin use, last use 4 days ago per patient ALLERGIES No Known Allergies Review of Systems Constitutional: Positive for chills. HENT: Negative for sore throat. Eyes: Negative for visual disturbance. Respiratory: Negative for shortness of breath. Cardiovascular: Negative for chest pain. Gastrointestinal: Positive for abdominal pain and vomiting. Genitourinary: Negative for dysuria. Musculoskeletal: Negative for neck stiffness. Skin: Negative for rash. Neurological: Negative for syncope. Physical Exam BP 132/86 Pulse 97 Temp (Src) 99.5 (Oral) Resp 18 Ht 5' 2 (1.58m) Wt 196 lb 14.4 oz (89.3kg) SpO2 100% BMI 36.00 kg/(m2). O2 Therapy: Room Air Physical Exam Vitals and nursing note reviewed. Constitutional: General: He is not in acute distress. Appearance: He is ill-appearing. He is not toxic-appearing or diaphoretic. HENT: Head: Normocephalic and atraumatic. Mouth/Throat: Mouth: Mucous membranes are moist. Pharynx: Oropharynx is clear. Eyes: General: No scleral icterus. Extraocular Movements: Extraocular movements intact. Cardiovascular: Rate and Rhythm: Regular rhythm. Tachycardia present. Pulmonary: Effort: Pulmonary effort is normal. Breath sounds: Normal breath sounds. Abdominal: General: There is no distension. Palpations: Abdomen is soft. Tenderness: There is generalized abdominal tenderness. There is no right CVA tenderness, left CVA tenderness, guarding or rebound. Musculoskeletal: Cervical back: Neck supple. No rigidity. Right lower leg: No edema. Left lower leg: No edema. Skin: General: Skin is warm and dry. Neurological: Mental Status: He is alert and oriented to person, place, and time. Psychiatric: Mood and Affect: Mood normal. Behavior: Behavior normal. Diagnostic Testing ED Labs Ordered and Reviewed COMP METABOLIC PANEL - Abnormal; Notable for the following components: Result Value Ref Range Protein, Total 8.2 (*) 6.3 - 8.0 g/dL Calcium, Total 10.3 (*) 8.5 - 10.2 mg/dL Glucose 124 (*) 74 - 99 mg/dL Potassium 3.4 (*) 3.7 - 5.1 mmol/L All other components within normal limits MAGNESIUM BLD - Abnormal; Notable for the following components: Magnesium 1.5 (*) 1.7 - 2.3 mg/dL All other components within normal limits CBC + DIFF - Abnormal; Notable for the following components: WBC 12.16 (*) 3.70 - 11.00 k/uL MPV 8.7 (*) 9.0 - 12.7 fL Abs Neut 10.98 (*) 1.45 - 7.50 k/uL Abs Lymph 0.83 (*) 1.00 - 4.00 k/uL All other components within normal limits Narrative: This is an appended report. These results have been appended to a previously verified report. VENOUS BLOOD GASES - Abnormal; Notable for the following components: pH, Venous 7.48 (*) 7.32 - 7.42 pH, Temp Corrected, Venous 7.49 (*) 7.32 - 7.42 pCO2, Venous 34 (*) 42 - 55 mmHg pCO2, Temp Corrected, Venous 33 (*) 42 - 55 mmHg pO2, Venous 31 (*) 35 - 45 mmHg Sodium, Whole Blood 146 (*) 136 - 144 mmol/L Potassium, Whole Blood 3.4 (*) 3.5 - 5.0 mmol/L Chloride, Whole Blood 108 (*) 97 - 105 mmol/L All other components within normal limits LIPASE BLD - Normal EXPEDITED COVID19 - Normal Procedures ED Course / Clinical Impression ED Course as of 05/08/22 0059 Ángela Torres's Documentation TueMay 07, 2022 1623 EKG interpretation: Normal sinus rhythm, rate 77 BPM. NH interval and QRS duration within normal limits. QTc within normal limits Normal axis. Non-specific T-wave abnormalities. No STEMI. No prior EKG for comparison. 1706 CBC + AUTO DIFF(!): WBC 12.16(!) RBC 5.39 Hemoglobi (more content not included)... Normal [facility] Gas + CO Pnl BldVon 05-07-20 22 Potassium [Moles/Vol] 3.4 mmol/L Low 3.7-5.1 [facility] Comment on above: Order Comment: Specgraciela dickson Type: VENOUS BLOOD SPECIMEN Ordering Facility: [facility] Address: [address] [address] Performed By: #### 2 4344-4 #### [facility] CLIA [id number] [facility] [address] [place] [address] Order Comment: Nicolás dickson Type: BLOOD SPECIMEN Ordering Facility: [facility] Address: [address] [address] Performed By: #### 2 4323-8, 46545-1, 3040-3 #### [facility] CLIA [id number] [address] [place] [address] [place] Gas and Carbon monoxide pane l (BldV)on 05-07-2022 Base excess Calc (BldV) [Moles/Vol] 2 mmol/L Normal 0-2 [facility] Comment on above: Order Comment: Speci men Type: VENOUS BLOOD SPECIMEN Ordering Facility: [facility] Address: [address] [address] Performed By: #### 2 4344-4 #### [facility] CLIA [id number] [facility] [address] [place] [address] Body temperature 97.34 [degF] Normal [facility] Comment on above: Order Comment: Speci men Type: VENOUS BLOOD SPECIMEN Ordering Facility: [facility] Address: [address] [address] Performed By: #### 2 4344-4 #### [facility] CLIA [id number] [facility] [address] [place] [address] Calcium.ionized (Bld) [Mass/Vol] 1.20 mmol/L Normal 1.08-1.30 [facility] Comment on above: Order Comment: Speci men Type: VENOUS BLOOD SPECIMEN Ordering Facility: [facility] Address: [address] [address] Performed By: #### 2 4344-4 #### [facility] CLIA [id number] [facility] [address] [place] [address] Carboxyhemoglobin (BldV) [Mass fraction] 1.3 % Normal 0.0-2.0 [facility] Comment on above: Order Comment: Speci men Type: VENOUS BLOOD SPECIMEN Ordering Facility: [facility] Address: [address] [address] Result Comment: Carb oxyhemoglobin Reference Range for Smokers: 2.0-8.0% Performed By: #### 2 4344-4 #### [facility] CLIA [id number] [facility] [address] [place] [address] Chloride [Moles/Vol] 108 mmol/L High 97-105 [facility] Comment on above: Order Comment: Speci men Type: VENOUS BLOOD SPECIMEN Ordering Facility: [facility] Address: [address] [address] Performed By: #### 2 4344-4 #### [facility] CLIA [id number] [facility] [address] [place] [address] CO2 (BldV) [Partial pressure] 34 mm[Hg] Low 4255 [facility] Comment on above: Order Comment: Speci men Type: VENOUS BLOOD SPECIMEN Ordering Facility: [facility] Address: [address] [place] [address] Performed By: #### 2 4344-4 #### [facility] [place] [id number] [facility] [address] [place] [address] CO2 adjusted to patient's actual temperature (BldV) [Partial pressure] 33 mmHg Low 4255 [facility] Comment on above: Order Comment: Speci men Type: VENOUS BLOOD SPECIMEN Ordering Facility: [facility] Address: [address] [place] [address] Performed By: #### 2 4344-4 #### [facility] [place] [id number] [facility] [address] [place] [address] HCO3 (Bld) [Moles/Vol] 26 mmol/L Normal 24-28 [facility] Comment on above: Order Comment: Speci men Type: VENOUS BLOOD SPECIMEN Ordering Facility: [facility] Address: [address] [place] [address] Performed By: #### 2 4344-4 #### [facility] [place] [id number] [facility] [address] [address] [id number] Hemoglobin (Bld) [Mass/Vol] 14.7 g/dL Normal 13.0-17.0 [facility] Comment on above: Order Comment: Speci men Type: VENOUS BLOOD SPECIMEN Ordering Facility: [facility] Address: [address] [place] [address] Performed By: #### 2 4344-4 #### [facility] [id number] [facility] [address] [place] [address] Lactate [Moles/Vol] 2.1 mmol/L Normal 0.5-2.2 [facility] Comment on above: Order Comment: Speci men Type: VENOUS BLOOD SPECIMEN Ordering Facility: [facility] Address: [address] [address] Performed By: #### 2 4344-4 #### [facility] CLIA [id number] [facility] [address] [place] [address] Methemoglobin (Bld) [Mass fraction] % Normal 0.0-1.5 [facility] Comment on above: Order Comment: Speci men Type: VENOUS BLOOD SPECIMEN Ordering Facility: [facility] Address: [address] [address] Performed By: #### 2 4344-4 #### [facility] CLIA [id number] [facility] [address] [place] [address] O2 THERAPY RA=Room Air Normal [facility] Comment on above: Order Comment: Speci men Type: VENOUS BLOOD SPECIMEN Ordering Facility: [facility] Address: [address] [address] Performed By: #### 2 4344-4 #### [facility] CLIA [id number] [facility] [address] [place] [address] Oxygen (BldV) [Partial pressure] 31 mm[Hg] Low 35-45 [facility] Comment on above: Order Comment: Speci men Type: VENOUS BLOOD SPECIMEN Ordering Facility: [facility] Address: [address] [address] Performed By: #### 2 4344-4 #### [facility] CLIA [id number] [facility] [address] [place] [address] Oxygen adjusted to patient's actual temperature (BldV) [Partial pressure] Normal [facility] Comment on above: Order Comment: Speci men Type: VENOUS BLOOD SPECIMEN Ordering Facility: [facility] Address: [address] [address] Performed By: #### 2 4344-4 #### [facility] CLIA [id number] [facility] [address] [place] [address] Oxygen saturation in Venous blood 64 % Normal 60-85 [facility] Comment on above: Order Comment: Speci men Type: VENOUS BLOOD SPECIMEN Ordering Facility: [facility] Address: [address] [address] Performed By: #### 2 4344-4 #### [facility] CLIA [id number] [facility] [address] [place] [address] Oxyhemoglobin (BldV) [Mass fraction] 63 % Normal 60-85 [facility] Comment on above: Order Comment: Speci men Type: VENOUS BLOOD SPECIMEN Ordering Facility: [facility] Address: [address] [place] [address] Performed By: #### 2 4344-4 #### [facility] CLIA [id number] [facility] [address] [place] [address] pH (BldV) 7.48 [pH] High 7.32-7.42 [facility] Comment on above: Order Comment: Speci men Type: VENOUS BLOOD SPECIMEN Ordering Facility: [facility] Address: [address] [place] [address] Performed By: #### 2 4344-4 #### [facility] CLIA [id number] [facility] [address] [place] [address] pH adjusted to patient's actual temperature (BldV) 7.49 High 7.32-7.42 [facility] Comment on above: Order Comment: Speci men Type: VENOUS BLOOD SPECIMEN Ordering Facility: [facility] Address: [address] [place] [address] Performed By: #### 2 4344-4 #### [facility] CLIA [id number] [facility] [address] [place] [address] Sodium [Moles/Vol] 146 mmol/L High 136-144 [facility] Comment on above: Order Comment: Speci men Type: VENOUS BLOOD SPECIMEN Ordering Facility: [facility] Address: [address] [id number] Performed By: #### 2 4344-4 #### [facility] CLIA [id number] [facility] [address] [place] [address] Lipase SerPl-cCncon 05-07-20 22 Lipase [Catalytic activity/Vol] 21 U/L Normal 16-61 [facility] Comment on above: Order Comment: Speci men Type: BLOOD SPECIMEN Ordering Facility: [facility] Address: [address] Performed By: #### 2 4323-8, 14300-5, 3040-3 #### [facility] CLIA [id number] [address] [address] [id number] [place] Magnesium SerPl-mCncon 05-07 Magnesium [Mass/Vol] 1.5 mg/dL Low 1.7-2.3 [facility] Comment on above: Order Comment: Speci men Type: BLOOD SPECIMENOrdering Facility: [facility] Address: [address] [id number] Performed By: #### 2 4323-8, 61289-8, 0-3 ####[facility] LABORATORYCLIA [id number] [address] [place] [id number] [place] Basophil percentageon 2021 Chloride [Moles/Vol] 105 mmol/L 98-107 [facility] Work Phone: Glucose [Mass/Vol] 106 mg/dL 74-106 [facility] Work Phone: Comment on above: Fasting Glucose resu lt from 100 to 125 mg/dL suggests IMPAIRED HOMEOSTASIS per A.D.A. criteria. Potassium [Moles/Vol] 3.4 mmol/L 3.5-5.1 [facility] Work Phone: Sodium [Moles/Vol] 137 mmol/L 136-145 [facility] Work Phone: Laboratory - Chemistry and C hemistry - challengeon 04-25-2022 CO2 [Moles/Vol] 25.0 mmol/L 21.0-32.0 [facility] Work Phone: [phone] Magnesium [Mass/Vol] 2.2 mg/dL 1.6-2.6 [facility] Work Phone: [phone] Urea nitrogen/Creatinine [Mass ratio] 19.8 mg/mg 10-20 [facility] Work Phone: [phone] No Panel Informationon 04-25 Estimated Creatinine Clearance Calc 134.37 ml/min [facility] Work Phone: Estimated GFR (MDRD) Amer 149 mL/min >60 [facility] Work Phone: [phone] Comment on above: GFR Calc Estimated GFR (MDRD) Non-Af Amer 123 mL/min >60 [facility] Work Phone: Comment on above: Non- GFR Calc Serum or plasma calcium kirsty urement (mass/volume)on 04-25-2022 Calcium [Mass/Vol] 9.2 mg/dL 8.5-10.1 oste [facility] Work Phone: [phone] Serum or plasma creatinine m easurement (mass/volume)on 04-25-2022 Creatinine [Mass/Vol] 0.76 mg/dL 0.70-1.30 [facility] Work Phone: Comment on above: The validity of the calculated GFR & GFRAA in patients over 70 years has not been determined. Clinical correlation is essential. Serum or plasma urea nitroge n measurement (mass/volume)on 04-25-2022 Urea nitrogen [Mass/Vol] 15 mg/dL 7-18 [facility] Work Phone: [phone] Thin prep Papanicolaou smear with manual screeningon 04-25-2022 Thin prep Papanicolaou smear with manual screening 7 5-15 [facility] Work Phone: [phone] Absolute lymphocyte counton 04-24-2022 Lymphocytes Auto (Unsp spec) [#/Vol] 1.57 10*3/uL 0.83-4.51 [facility] Work Phone: Basophil percentageon 2021 Basophil percentage 0 SEEN /hpf 0-5 [facility] Work Phone: Basophils/100 WBC (Bld) 0.2 % 0-1 [facility] Work Phone: Eosinophils/100 WBC (Bld) 0.2 % 0-5 [facility] Work Phone: Neutrophils (Bld) [#/Vol] 8.0 10*3/uL 2.0-7.7 [facility] Work Phone: [phone] Neutrophils/100 WBC (Bld) 77.0 % 47-70 [facility] Work Phone: [phone] WBC (Bld) [#/Vol] 10.4 10*3/uL 4.4-11.0 [facility] Work Phone: Bilirubin Test strip Ql (U)o n 04-24-2022 Bilirubin Ql (U) Negative Negative [facility] Work Phone: Blood erythrocytes count (nu mber/volume)on 04-24-2022 RBC (Bld) [#/Vol] 5.04 10*6/uL 4.6-6.2 [facility] Work Phone: Blood hemoglobin measurement (mass/volume)on 04-24-2022 Hemoglobin (Bld) [Mass/Vol] 14.5 g/dL 13.0-16.5 [facility] Work Phone: [phone] Blood lymphocytes/100 leukoc yteson 04-24-2022 Lymphocytes/100 WBC (Bld) 15.1 % 19-41 [facility] Work Phone: Blood monocytes/100 leukocyt eson 04-24-2022 Monocytes/100 WBC (Bld) 7.2 % 0-10 [facility] Work Phone: Blood platelet mean volumeon 04-24-2022 Platelet mean volume (Bld) [Entitic vol] 9.4 fL 6.2-12.0 [facility] Work Phone: Determination of erythrocyte mean corpuscular volume (MCV)on 04-24-2022 MCV (RBC) [Entitic vol] 84.5 fL 80-94 [facility] Work Phone: [phone] Hematocrit Auto (Bld) [Volum e fraction]on 04-24-2022 Hematocrit (Bld) [Volume fraction] 42.6 % 40-54 [facility] Work Phone: [phone] Ketones Test strip Ql (U)on 04-24-2022 Ketones Ql (U) 15 mg/dl Negative [facility] Work Phone: [phone] Laboratory - Hematology and Cell countson 04-24-2022 Erythrocyte distribution width (RBC) [Entitic vol] 41.6 fL 35.1-43.9 [facility] Work Phone: [phone] Erythrocyte distribution width (RBC) [Ratio] 13.5 % 11.6-14.6 [facility] Work Phone: [phone] Immature granulocytes/100 WBC (Bld) 0.300 % 0.0-0.9 [facility] Work Phone: [phone] Comment on above: IG% - Immature Granu locytes (promyelocytes, myelocytes and metamyelocytes) > 1% indicates that a LEFT SHIFT is Present. MCH (RBC) [Entitic mass] 28.8 pg 27.0-32.0 [facility] Work Phone: [phone] Nucleated RBC/100 WBC (Bld) [Ratio] 0 % 0-5 [facility] Work Phone: [phone] MCHC Auto (RBC) [Mass/Vol]on 04-24-2022 MCHC (RBC) [Mass/Vol] 34.0 g/dL 32-36 [facility] Work Phone: [phone] Mucus LM Ql (Urine sed)on Mucus Ql (Urine sed) 0 SEEN /hpf [facility] Work Phone: [phone] Nitrite Test strip Ql (U)on 04-24-2022 Nitrite Ql (U) Negative Negative [facility] Work Phone: [phone] Platelets bldon 04-24-2022 Platelets (Bld) [#/Vol] 183 10*3/uL 150-450 [facility] Work Phone: Protein Test strip Ql (U)on 04-24-2022 Protein Ql (U) 15 mg/dl Negative [facility] Work Phone: Squamous epithelial cells de tection in urine sediment by light microscopyon 04-24-2022 Epithelial cells.squamous LM Ql (Urine sed) 0 SEEN /hpf 0-5 [facility] Work Phone: Urine blood detectionon 03-31 RBC Ql (U) 10 /ul Negative [facility] Work Phone: RBC Ql (U) 0 SEEN /hpf 0-5 [facility] Work Phone: Urine clarityon 04-24-2022 Clarity (U) Clear Clear [facility] Work Phone: Urine color determinationon 04-24-2022 Color (U) Yellow Yellow [facility] Work Phone: Urine glucose detectionon Glucose Ql (U) Normal mg/dl Normal [facility] Work Phone: Urine leukocyte esterase det ection by dipstickon 04-24-2022 Leukocyte esterase Test strip Ql (U) Negative Negative [facility] Work Phone: Urine pHon 04-24-2022 pH (U) 7.0 [pH] 5.0 - 8.0 [facility] Work Phone: Urine sediment bacteria coun t by microscopy (number/high power field)on 04-24-2022 Bacteria LM.HPF (Urine sed) [#/Area] 0 /[HPF] None Seen [facility] Work Phone: Urine specific gravity measu rementon 04-24-2022 Specific gravity (U) [Rel density] 1.015 1.002-1.030 [facility] Work Phone: Urobilinogen Auto test strip Ql (U)on 04-24-2022 Urobilinogen Ql (U) 1 mg/dl Normal [facility] Work Phone: No Panel Informationon 04-23 Troponin I High Sensitivity 5 pg/mL 3.0-78.0 [facility] Work Phone: [phone] Comment on above: Please Note: New April t Units and Gender Specific Reference Ranges. For more information see Policy Stat Procedure Depue High Sensitivity Troponin (TNIH) and attachments. Basophil percentageon 2021 Ammonia (P) [Moles/Vol] 12.0 umol/L 11-32 [facility] Work Phone: [phone] Bilirubin [Mass/Vol] 0.40 mg/dL 0.20-1.00 [facility] Work Phone: [phone] Comment on above: For patients on eltr ombopag therapy, use of Dimension Depue TBIL is not recommended. Protein [Mass/Vol] 8.0 g/dL 6.4-8.2 [facility] Work Phone: [phone] Glucose Glucometer (BldC) [M ass/Vol]on 04-22-2022 Glucose [Mass/Vol] 138 mg/dL 74-106 [facility] Work Phone: [phone] Comment on above: MANAGEMENT OF PATIEN T CARE PER NURSING PROTOCOL Laboratory - Chemistry and C hemistry - challengeon 04-22-2022 ALP [Catalytic activity/Vol] 115 U/L 45-117 [facility] [facility] Work Phone: [phone] ALT [Catalytic activity/Vol] 54 U/L 16-61 [facility] Work Phone: [phone] CK [Catalytic activity/Vol] 123 U/L 39-308 [facility] Work Phone: [phone] Globulin (S) [Mass/Vol] 4.2 g/dL 2.2-4.2 [facility] Work Phone: [phone] No Panel Informationon 04-22 Thyroid Stimulating Hormone (TSH) 0.64 uIU/mL 0.358-3.74 [facility] Work Phone: [phone] Serum or plasma albumin kirsty urement (mass/volume)on 04-22-2022 Albumin [Mass/Vol] 3.8 g/dL 3.2-5.0 [facility] Work Phone: Serum or plasma albumin/glob ulin mass ratioon 04-22-2022 Albumin/Globulin [Mass ratio] 0.9 {ratio} 0.9-2.4 [facility] Work Phone: Thin prep Papanicolaou smear with manual screeningon 04-22-2022 Thin prep Papanicolaou smear with manual screening 35 U/L 15-37 [facility] Work Phone: Absolute lymphocyte counton 04-21-2022 Lymphocytes Auto (Unsp spec) [#/Vol] 1.49 10*3/uL 0.83-4.51 [facility] Work Phone: Basophil percentageon 2021 Basophils/100 WBC (Bld) 0.4 % 0-1 [facility] Work Phone: Bilirubin [Mass/Vol] 0.30 mg/dL 0.20-1.00 [facility] Work Phone: Comment on above: For patients on eltr ombopag therapy, use of Dimension Depue TBIL is not recommended. Chloride [Moles/Vol] 103 mmol/L 98-107 [facility] Work Phone: Eosinophils/100 WBC (Bld) 4.0 % 0-5 [facility] Work Phone: Glucose [Mass/Vol] 134 mg/dL 74-106 [facility] Work Phone: Comment on above: Fasting Glucose resu lt greater than or equal to 126 mg/dL suggests DIABETES MELLITUS per A.D.A. criteria. Neutrophils (Bld) [#/Vol] 4.4 10*3/uL 2.0-7.7 [facility] Work Phone: Neutrophils/100 WBC (Bld) 65.3 % 47-70 [facility] Work Phone: Potassium [Moles/Vol] 3.9 mmol/L 3.5-5.1 [facility] Work Phone: Protein [Mass/Vol] 7.6 g/dL 6.4-8.2 [facility] Work Phone: Sodium [Moles/Vol] 139 mmol/L 136-145 [facility] Work Phone: WBC (Bld) [#/Vol] 6.7 10*3/uL 4.4-11.0 [facility] Work Phone: Blood erythrocytes count (nu mber/volume)on 04-21-2022 RBC (Bld) [#/Vol] 4.94 10*6/uL 4.6-6.2 [facility] Work Phone: Blood hemoglobin measurement (mass/volume)on 04-21-2022 Hemoglobin (Bld) [Mass/Vol] 13.8 g/dL 13.0-16.5 [facility] Work Phone: Blood lymphocytes/100 leukoc yteson 04-21-2022 Lymphocytes/100 WBC (Bld) 22.2 % 19-41 [facility] Work Phone: Blood monocytes/100 leukocyt eson 04-21-2022 Monocytes/100 WBC (Bld) 8.0 % 0-10 [facility] Work Phone: Blood platelet mean volumeon 04-21-2022 Platelet mean volume (Bld) [Entitic vol] 8.6 fL 6.2-12.0 [facility] Work Phone: Determination of erythrocyte mean corpuscular volume (MCV)on 04-21-2022 MCV (RBC) [Entitic vol] 86.2 fL 80-94 [facility] Work Phone: Direct bilirubinon Bilirubin.direct [Mass/Vol] 0.08 mg/dL 0.00-0.30 [facility] Work Phone: Hematocrit Auto (Bld) [Volum e fraction]on 04-21-2022 Hematocrit (Bld) [Volume fraction] 42.6 % 40-54 [facility] Work Phone: Laboratory - Chemistry and C hemistry - challengeon 04-21-2022 ALP [Catalytic activity/Vol] 108 U/L 45-117 [facility] Work Phone: [phone] ALT [Catalytic activity/Vol] 49 U/L 16-61 [facility] Work Phone: [phone] CO2 [Moles/Vol] 30.0 mmol/L 21.0-32.0 [facility] Work Phone: [phone] Globulin (S) [Mass/Vol] 3.9 g/dL 2.2-4.2 [facility] Work Phone: [phone] Urea nitrogen/Creatinine [Mass ratio] 11.1 mg/mg 10-20 [facility] Work Phone: [phone] Laboratory - Drug toxicology on 04-21-2022 Amphetamines Ql (U) Positive <1000 ng/mL [facility] Work Phone: [phone] Benzodiazepines Ql (U) Negative < 200 ng/mL [facility] Work Phone: [phone] Cannabinoids Screen Ql (U) Positive < 50 ng/mL [facility] Work Phone: [phone] Cocaine Ql (U) Negative < 300 ng/mL [facility] Work Phone: [phone] Opiates Ql (U) Negative < 300 ng/mL [facility] Work Phone: [phone] Laboratory - Hematology and Cell countson 04-21-2022 Erythrocyte distribution width (RBC) [Entitic vol] 42.0 fL 35.1-43.9 [facility] Work Phone: [phone] Erythrocyte distribution width (RBC) [Ratio] 13.4 % 11.6-14.6 [facility] Work Phone: [phone] Immature granulocytes/100 WBC (Bld) 0.100 % 0.0-0.9 [facility] Work Phone: [phone] Comment on above: IG% - Immature Granu locytes (promyelocytes, myelocytes and metamyelocytes) > 1% indicates that a LEFT SHIFT is Present. MCH (RBC) [Entitic mass] 27.9 pg 27.0-32.0 [facility] Work Phone: [phone] Nucleated RBC/100 WBC (Bld) [Ratio] 0 % 0-5 [facility] Work Phone: [phone] MCHC Auto (RBC) [Mass/Vol]on 04-21-2022 MCHC (RBC) [Mass/Vol] 32.4 g/dL 32-36 [facility] Work Phone: [phone] No Panel Informationon 04-21 Estimated Creatinine Clearance Calc 113.47 ml/min [facility] Work Phone: [phone] Estimated GFR (MDRD) Amer 122 mL/min >60 [facility] Work Phone: [phone] Comment on above: GFR Calc Estimated GFR (MDRD) Non-Af Amer 101 mL/min >60 [facility] Work Phone: [phone] Comment on above: Non- GFR Calc Ethyl Alcohol Level 6.0 mg/dL [facility] Work Phone: [phone] Comment on above: The serum:whole bloo d ethanol ratio is approximately 1.14and varies slightly with hematocrit. Medical Alcohol reference interval and critical value innon-tolerant individuals; 50 - 100 Impairment 100 Intoxication 100 - 250 Severe Poisoning 250 - 400 Deep/possible fatal coma MDMA (Ecstasy) Screen Positive < 500 ng/mL [facility] Work Phone: [phone] Urine Barbiturates Screen Negative < 200 ng/mL [facility] Work Phone: [phone] Urine Drug Screen Comment [facility] Work Phone: [phone] Comment on above: CONFIRMATORY TESTING FOR ALL POSITIVE URINE DRUG SCREENRESULTS WILL ONLY BE SENT OUT UPON PHYSICIAN ORDER. VISTA Urine Drug Screen methods provide only preliminaryanalytical test results. A more specific alternate chemicalmethod must be used in order to obtain a confirmedanalytical result. Gas chromatography/mass spectrometery(GC/MS) is the preferred confirmatory method. Clinicalconsideration and professional judgement should be appliedto any drug of abuse test result, particularly whenpreliminary positive results are used. URINE TCA TESTING MUST BE ORDERED SEPARATELY. USE TESTMNEMONIC: [facility] Urine Methadone Screen Negative < 300 ng/mL [facility] Work Phone: Platelets bldon 04-21-2022 Platelets (Bld) [#/Vol] 285 10*3/uL 150-450 [facility] Work Phone: Serum or plasma albumin kirsty urement (mass/volume)on 04-21-2022 Albumin [Mass/Vol] 3.7 g/dL 3.2-5.0 [facility] Work Phone: Serum or plasma calcium kirsty urement (mass/volume)on 04-21-2022 Calcium [Mass/Vol] 9.2 mg/dL 8.5-10.1 [facility] Work Phone: Serum or plasma creatinine m easurement (mass/volume)on 04-21-2022 Creatinine [Mass/Vol] 0.90 mg/dL 0.70-1.30 [facility] Work Phone: Comment on above: The validity of the calculated GFR & GFRAA in patients over 70 years has not been determined. Clinical correlation is essential. Serum or plasma urea nitroge n measurement (mass/volume)on 04-21-2022 Urea nitrogen [Mass/Vol] 10 mg/dL 7-18 [facility] Work Phone: Thin prep Papanicolaou smear with manual screeningon 04-21-2022 Thin prep Papanicolaou smear with manual screening 31 U/L 15-37 [facility] Work Phone: Thin prep Papanicolaou smear with manual screening 6 5-15 [facility] Work Phone: Urine phencyclidine (PCP) de tectionon 04-21-2022 Phencyclidine Ql (U) Negative < 25 ng/mL [facility] Work Phone: CT ABDOMEN PELVIS WITHOUT CO NTRASTon 12-24-2021 CT ABDOMEN PELVIS WITHOUT CONTRAST EXAMINATION: CT ABDOMEN PELVIS WITHOUT CONTRAST HISTORY: ORDERING SYSTEM PROVIDED HISTORY: RLQ abdominal pain (Age >= 14y), TECHNOLOGIST PROVIDED HISTORY: Illness/Other Reason for exam: abd pain, drug overdose Encounter Type: Initial Additional signs and symptoms: ORDERING SYSTEM PROVIDED DIAGNOSIS CODES: COMPARISON: None TECHNIQUE: CT examination of the abdomen and pelvis without IV contrast. Coronal and sagittal reformations were performed. Dose reduction techniques were achieved by using automated exposure control and/or adjustment of mA and/or kV according to patient size and/or use of iterative reconstruction technique. FINDINGS: Lung bases are clear. Liver, gallbladder, pancreas, spleen, and adrenal glands are within normal limits. The kidneys are symmetric in size without obstruction or visualized stone. Normal caliber of the ureters down to the bladder. The urinary bladder is within normal limits. No free air or free fluid. Fluid and air-fluid levels seen throughout the small bowel and colon. Normal appendix. Normal appearance of the GI tract otherwise without significant inflammation, mass, or obstruction. No concerning lymphadenopathy. Normal caliber of the aorta throughout. No acute findings of the osseous structures. IMPRESSION: 1. Fluid and air-fluid levels throughout the bowel may indicate impending enterocolitis. 2. Normal appendix. 3. No acute findings otherwise. Workstation ID: [id number] Dictated by: KAYLEN REAVES on TueDec 24, 2021 6:32:38 AM EDT Transcribed by: KAYLEN REAVES on TueDec 24, 2021 6:32:38 AM EDT Finalized by: KAYLEN REAVES on TueDec 24, 2021 6:32:38 AM EDT Normal [facility] Comment on above: Order Comment: Injur y/Trauma or Illness?:Illness/Other How long have you had these symptoms (acute/chronic)?:Acute Reason for exam?:abd pain, drug overdose Type of Exam?:Initial Additional signs and symptoms?: XR CHEST PA/APon 12-23-2021 XR CHEST PA/AP EXAMINATION: XR CHEST PA/AP 12/23/2021 7:04 pm HISTORY: ORDERING SYSTEM PROVIDED HISTORY: overdose, TECHNOLOGIST PROVIDED HISTORY: Illness/Other Reason for exam: overdose Cancer History: u Surgery, RadiationHistory: u Encounter Type: Initial Additional signs and symptoms: possibly aspirated ORDERING SYSTEM PROVIDED DIAGNOSIS CODES: COMPARISON: Portable chest from 10/22/2021. FINDINGS: Trachea, mediastinum and heart size are unremarkable. The lungs are clear and well aerated. No infiltrate or nodule or effusion or pneumothorax is noted. Diaphragm and bony elements are intact. IMPRESSION: Nonacute portable chest. Workstation ID: [id number] Dictated by: JAMES DALTON on TueDec 23, 2021 8:06:04 PM EDT Transcribed by: JAMES DALTON on TueDec 23, 2021 8:06:04 PM EDT Finalized by: JAMES DALTON on TueDec 23, 2021 8:06:04 PM EDT [facility] Comment on above: Order Comment: Injur y/Trauma or Illness?:Illness/Other How long have you had these symptoms (acute/chronic)?:Acute Reason for exam?:overdose History of cancer?:u Surgeries, chemotherapy, or radiation?:u Type of Exam?:Initial Additional signs and symptoms?:possibly aspirated XR CHEST PA/APon 10-22-2021 XR CHEST PA/AP EXAMINATION: XR CHEST PA/AP HISTORY: ORDERING SYSTEM PROVIDED HISTORY: nausea vomiting and hypoxia, TECHNOLOGIST PROVIDED HISTORY: Illness/Other Reason for exam: nausea vomiting and hypoxia Cancer History: u Surgery, RadiationHistory: u Encounter Type: Initial Additional signs and symptoms: n ORDERING SYSTEM PROVIDED DIAGNOSIS CODES: COMPARISON: Chest x-ray 11/20/2012. FINDINGS: AP upright view of the chest is submitted. The cardiomediastinal silhouette, lungs, pleural spaces and pulmonary vasculature are within normal limits. No acute osseous abnormality. IMPRESSION: 1. No acute cardiopulmonary abnormality. VKR/hff Workstation ID: [id number] Dictated by: TATUM MARTIN on TueOctober 22, 2021 6:12:59 AM EDT Transcribed by: DARIO RHODES on TueOctober 22, 2021 6:15:45 AM EDT Finalized by: TATUM MARTIN on TueOctober 23, 2021 3:14:56 PM EDT [facility] Comment on above: Order Comment: Injur y/Trauma or Illness?:Illness/Other How long have you had these symptoms (acute/chronic)?:Acute Reason for exam?:epigastric pain, vomiting Type of Exam?:Initial Additional signs and symptoms?:n/a Basic metabolic 2000 panelOr dered By: Smitha Nova on 09-30-2021 Anion gap [Moles/Vol] 19 mmol/L 10 - 2 0 mmol/L [facility] Calcium [Mass/Vol] 9.5 mg/dL 8.4 - 10. 2 mg/dL [facility] Chloride [Moles/Vol] 108 mmol/L 98 - 10 8 mmol/L [facility] Creatinine [Mass/Vol] 0.84 mg/dL 0.50 - 1.30 [facility] GFR/1.73 sq M.predicted CKD-EPI (S/P/Bld) [Vol rate/Area] 113 >=60 mL/min/1.73 m2 [facility] Glucose [Mass/Vol] 112 mg/dL High 65 - 99 mg/dL [facility] HCO3 [Moles/Vol] 17 mmol/L Low 21 - 32 mmol/L [facility] Interpretation and review of laboratory results Abnormal [facility] Potassium [Moles/Vol] 3.6 mmol/L 3.5 - 5.1 mmol/L [facility] Sodium [Moles/Vol] 140 mmol/L 135 - 145 mmol/L [facility] Urea nitrogen [Mass/Vol] 11 mg/dL 8 - 25 mg/dL [facility] Urea nitrogen/Creatinine [Mass ratio] 13.1 mg/mg [facility] The eGFR should be u sed for monitoring renal function only and not for medication dosing. [facility] CBC Auto Differentialon 050 Basophils (Bld) [#/Vol] 0.04 10*3/uL [facility] Basophils/100 WBC (Bld) 0.4 % [facility] Eosinophils (Bld) [#/Vol] 0.02 10*3/uL [facility] Eosinophils/100 WBC (Bld) 0.2 % [facility] Erythrocyte distribution width (RBC) [Entitic vol] 12.2 % 11.6 - 14.8 % [facility] Hematocrit (Bld) [Volume fraction] 44.7 % 41.0 - 53.0 % [facility] Hemoglobin (Bld) [Mass/Vol] 15.6 g/dL 13.5 - 17.5 g/dL [facility] Immature granulocytes (Bld) [#/Vol] 0.04 10*3/uL [facility] Immature granulocytes/100 WBC (Bld) 0.40 % [facility] Comment on above: The IG parameter is the percentage of metamyelocytes, myelocytes and promyelocytes. An immature granulocyte count (IG) of 1% or more suggests the possibility of infection, an IG count of 3% is very likely related to an infection. Interpretation and review of laboratory results Abnormal [facility] Lymphocytes (Bld) [#/Vol] 1.92 10*3/uL [facility] Lymphocytes/100 WBC (Bld) 19.6 % [facility] MCH (RBC) [Entitic mass] 29.1 pg 26. 0 - 34.0 pg [facility] MCHC (RBC) [Mass/Vol] 34.9 g/dL 31.0 - 37.0 g/dL [facility] MCV (RBC) [Entitic vol] 83.4 fL 80.0 - 100.0 fL [facility] Monocytes (Bld) [#/Vol] 0.83 10*3/uL [facility] Monocytes/100 WBC (Bld) 8.5 % [facility] Neutrophils (Bld) [#/Vol] 6.95 10*3/uL [facility] Neutrophils/100 WBC (Bld) 70.9 % [facility] Nucleated RBC (Bld) [#/Vol] 0.00 10*3/uL [facility] Nucleated RBC/100 WBC (Bld) [Ratio] 0.0 % [facility] Platelet mean volume (Bld) [Entitic vol] 8.6 fL Low 9.4 - 12.4 fL [facility] Platelets (Bld) [#/Vol] 388 10*3/uL [facility] RBC (Bld) [#/Vol] 5.36 10*6/uL [facility] ealth WBC (Bld) [#/Vol] 9.80 10*3/uL [facility] eah [facility] ECG 12 Leadon 09-29-2021 Atrial Rate 70 BPM [facility] [place] 63 degrees [facility] P-R Interval 154 ms [facility] Q-T Interval 402 ms [facility] QRS Duration 86 ms [facility] QTC Calculation (Bezet) 434 ms [facility] [place] 18 degrees [facility] [place] 43 degrees [facility] Ventricular Rate 70 BPM [facility] Normal sinus rhythm Normal ECG Confirmed by Giuliano Hunt MD ([id number]) on 09/29/2021 9:08:10 AM MUSE [facility] Atrial Rate 78 BPM [facility] [place] 75 degrees [facility] P-R Interval 154 ms [facility] Q-T Interval 382 ms [facility] QRS Duration 88 ms [facility] QTC Calculation (Bezet) 435 ms [facility] [place] 72 degrees [facility] [place] 42 degrees [facility] Ventricular Rate 78 BPM [facility] Normal sinus rhythm Normal ECG Confirmed by Giuliano Hunt MD ([id number]) on 09/29/2021 6:58:15 AM MUSE [facility] CBC Auto Differentialon 05-0 Basophils (Bld) [#/Vol] 0.03 10*3/uL [facility] Basophils/100 WBC (Bld) 0.3 % [facility] Eosinophils (Bld) [#/Vol] 0.01 10*3/uL [facility] Eosinophils/100 WBC (Bld) 0.1 % [facility] Erythrocyte distribution width (RBC) [Entitic vol] 12.2 % 11.6 - 14.8 % [facility] Hematocrit (Bld) [Volume fraction] 44.4 % 41.0 - 53.0 % [facility] Hemoglobin (Bld) [Mass/Vol] 15.2 g/dL 13.5 - 17.5 g/dL [facility] Immature granulocytes (Bld) [#/Vol] 0.06 10*3/uL [facility] Immature granulocytes/100 WBC (Bld) 0.50 % [facility] Comment on above: The IG parameter is the percentage of metamyelocytes, myelocytes and promyelocytes. An immature granulocyte count (IG) of 1% or more suggests the possibility of infection, an IG count of 3% is very likely related to an infection. Interpretation and review of laboratory results Abnormal [facility] Lymphocytes (Bld) [#/Vol] 1.22 10*3/uL [facility] Lymphocytes/100 WBC (Bld) 10.6 % [facility] MCH (RBC) [Entitic mass] 29.4 pg 26. 0 - 34.0 pg [facility] MCHC (RBC) [Mass/Vol] 34.2 g/dL 31.0 - 37.0 g/dL [facility] MCV (RBC) [Entitic vol] 85.9 fL 80.0 - 100.0 fL [facility] Monocytes (Bld) [#/Vol] 0.71 10*3/uL [facility] Monocytes/100 WBC (Bld) 6.1 % [facility] Neutrophils (Bld) [#/Vol] 9.53 10*3/uL High [facility] Neutrophils/100 WBC (Bld) 82.4 % [facility] Nucleated RBC (Bld) [#/Vol] 0.00 10*3/uL [facility] Nucleated RBC/100 WBC (Bld) [Ratio] 0.0 % [facility] Platelet mean volume (Bld) [Entitic vol] 8.5 fL Low 9.4 - 12.4 fL [facility] Platelets (Bld) [#/Vol] 385 10*3/uL [facility] RBC (Bld) [#/Vol] 5.17 10*6/uL [facility] WBC (Bld) [#/Vol] 11.56 10*3/uL [facility] Comprehensive metabolic 2000 panelon 09-28-2021 Albumin [Mass/Vol] 3.9 g/dL 3.2 - 5.2 g/dL [facility] ALP [Catalytic activity/Vol] 92 U/L 40 - 140 U/L [facility] ALT [Catalytic activity/Vol] 44 U/L 14 - 65 U/L [facility] Anion gap [Moles/Vol] 12 mmol/L 10 - 2 0 mmol/L [facility] AST [Catalytic activity/Vol] 22 U/L 0 - 45 U/L [facility] Bilirubin [Mass/Vol] 0.5 mg/dL 0.0 - 1 .3 mg/dL [facility] Calcium [Mass/Vol] 9.6 mg/dL 8.4 - 10. 2 mg/dL [facility] Chloride [Moles/Vol] 105 mmol/L 98 - 10 8 mmol/L [facility] Creatinine [Mass/Vol] 0.84 mg/dL 0.50 - 1.30 [facility] GFR/1.73 sq M.predicted CKD-EPI (S/P/Bld) [Vol rate/Area] 113 >=60 mL/min/1.73 m2 [facility] Glucose [Mass/Vol] 113 mg/dL High 65 - 99 mg/dL [facility] HCO3 [Moles/Vol] 27 mmol/L 21 - 32 mmol/L [facility] Interpretation and review of laboratory results Abnormal [facility] Potassium [Moles/Vol] 3.6 mmol/L 3.5 - 5.1 mmol/L [facility] Protein [Mass/Vol] 7.7 g/dL 6.0 - 8.0 g/dL [facility] Sodium [Moles/Vol] 140 mmol/L 135 - 145 mmol/L [facility] Urea nitrogen [Mass/Vol] 12 mg/dL 8 - 25 mg/dL [facility] Urea nitrogen/Creatinine [Mass ratio] 14.3 mg/mg [facility] The eGFR should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 fulton/white differentiation. VENTRICLES/EXTRA-AXIAL SPACES: Normal for patient's age. VESSELS: No hyperdense intraluminal thrombus is seen. SINUSES/MASTOIDS:Cyst or polyp formation is present in the maxillary sinus on the left. Remaining visualized sinuses are clear. Frontal sinuses are non developed. Mastoids and middle ears are clear. Mastoid sclerosis is present on the right. MSK: No displaced or depressed fractures are noted. OTHER: Facial bones: FRONTAL BONES: SUPRAORBITAL SOFT TISSUES: Normal without swelling, laceration or foreign body. ORBITS: Globes: Normal without proptosis or evidence of disruption or intraocular foreign body. Retrobulbar fat: Normal without mass or hematoma. Extraocular Muscles: Normal and symmetric without prolapse or evidence of entrapment. Optic Nerves: Normal without mass-effect or evidence of disruption. Preseptal Soft Tissues: Normal without swelling, laceration or foreign body. Villanueva: Intact without evidence of fracture. MAXILLA AND MANDIBLE: Maxillary and buccal soft tissues: Normal without swelling, laceration or foreign body. Maxillary bones: Intact bilaterally without fracture or avulsed teeth. Mandible: Allowing for artifacts from dental work, no fracture or bone displacement is seen. Nasal bones and septum: There is no soft tissue swelling. No evidence of nasal bone fracture. No evidence of septal fracture. PARANASAL SINUSES: Frontal: Non developed. Ethmoid: Clear. Maxillary: Cyst or polyp formation in the maxillary sinus on the left. Sphenoid: Clear. Zygomatic arch: Intact bilaterally. Pterygoid plates: Intact bilaterally. IMPRESSION: 1. No acute intracranial abnormality is seen. No hemorrhage or mass effect. 2. No facial fracture or bone displacement is seen. Workstation ID: [id number] [facility] No Panel InformationOrdered By: Mary Ravi on 09-27-2021 [facility] Work Phone: Obtain VBG and performon [facility] POC Venous Blood Gas Panel-P ulmon 09-27-2021 Base excess Calc (BldV) [Moles/Vol] 2.2 mmol/L High [facility] CO2 (BldV) [Partial pressure] 29.5 mm[Hg] Low [facility] HCO3 (Bld) [Moles/Vol] 23.9 mmol/L Low 24.0 - 28.0 mmol/L [facility] Hematocrit (BldA) [Volume fraction] 52.3 % 41.0 - 53.0 % [facility] Hemoglobin (Bld) [Mass/Vol] 17.1 g/dL 13.5 - 17.5 g/dL [facility] Inhaled oxygen concentration 21 % [facility] Interpretation and review of laboratory results Abnormal [facility] Oxygen (BldV) [Partial pressure] 73 mm[Hg] High [facility] Oxygen saturation in Venous blood 96.8 % High 40.0 - 70.0 % [facility] pH (BldV) 7.52 [pH] High [facility] SARS-CoV-2 (COVID-19) RNA NA A+probe Ql (Resp)Ordered By: Sylvie Jessica on 09-27-2021 Interpretation and review of laboratory results Normal [facility] This test was perfor med under the FDA's Emergency Use Authorization (EUA). Testing was performed using the Eliot Casimiro SARS-CoV-2 RT-PCR & Influenza A/B Nucleic Acid Test on the [employer] System. This test has not been approved for use in asymptomatic patients and its performance in this patient population has not been evaluated. Negative results do not rule out the presence of SARS-CoV-2, influenza A, and/or influenza B. Fact sheets for the EUA can be found at the following links: For Healthcare Providers: https://www.fda.gov/med ia/869668/download For Patients: https://www.fda.gov/med ia/607688/download [facility] UrinalysisOrdered By: Aman Ronquillo on 09-27-2021 Bacteria Auto Ql (U) None Seen None Se en /hpf [facility] Bilirubin Ql (U) Negative [facility] Clarity Refractometry automated (U) Clear Clear [facility] Color (U) Yellow Colorless, Yellow [facility] Epithelial cells.squamous Auto (Urine sed) [#/Area] <1 [facility] Glucose Auto test strip (U) [Mass/Vol] Negative Negative mg/dL [facility] Hemoglobin Auto test strip Ql (U) Negative Negative [facility] Interpretation and review of laboratory results Abnormal [facility] Ketones (U) [Mass/Vol] Trace Abnormal Negat tracie mg/dL [facility] Leukocyte esterase Auto test strip Ql (U) Negative Negative [facility] Mucus Auto (Urine sed) [#/Area] Rare None Seen, Rare /lpf [facility] Nitrite Auto test strip Ql (U) Negative Negative [facility] pH (U) 8.5 [pH] High [facility] Protein (U) [Mass/Vol] 30 mg/dL Abnormal Negat tracie mg/dL [facility] Comment on above: False positive resul ts may occur in urines with large amounts of hemoglobin, pH greater than 8.0, contrast medium, or disinfectants including ammonium compounds. RBC Auto (Urine sed) [#/Area] 3 [facility] Specific gravity (U) [Rel density] >1.050 High [facility] Comment on above: Abnormally high spec [facility] gravity results can be the result of the presence of x-ray or radiographic contrast media or mannitol(diuretic) administration or with large amounts of protein, glucose or in cloudy specimens. Urobilinogen (U) [Mass/Vol] mg/dL <2.0 mg/dL [facility] WBC Auto (Urine sed) [#/Area] 1 [facility] Microscopic examinat ion is performed on all urinalysis samples and only positive findings are reported. The test for blood on the chemical analytic portion of urinalysis may also be positive due to hemoglobinuria and myoglobinuria and if red blood cells are present they are quantified by microscopic examination. [facility] Urine Drug Screenon 09-28-19 Amphetamines Ql (U) Not detected None Detected [facility] Comment on above: Urine Amphetamine Cu toff: < 1000 ng/mL = None Detected Barbiturates Screen Ql (U) Not detected None Detected [facility] Comment on above: Urine Barbiturates C utoff: < 200 ng/mL = None Detected Benzodiazepines Ql (U) Not detected None Detected [facility] Comment on above: Urine Benzodiazepine Cutoff: < 200 ng/mL = None Detected Buprenorphine Ql (U) Positive Abnormal None Detected [facility] Comment on above: Urine Buprenorphine Cutoff: < 5 ng/mL = None Detected Cannabinoids Screen Ql (U) Positive Abnormal None Detected [facility] Comment on above: Urine Cannabinoids C utoff: < 50 ng/mL = None Detected Cocaine Ql (U) Not detected None Detected [facility] Comment on above: Urine Cocaine Cutoff : < 300 ng/mL = None Detected fentaNYL+Norfentanyl Screen Ql (U) Positive Abnormal None Detected [facility] Comment on above: Urine Fentanyl Cutof f: < 1 ng/mL = None Detected Interpretation and review of laboratory results Abnormal [facility] Methadone Screen Ql (U) Not detected None Detected [facility] Comment on above: Urine Methadone Cuto ff: < 300 ng/mL = None Detected Opiates Screen Ql (U) Not detected None Detected [facility] Comment on above: Urine Opiates Cutoff : < 300 ng/mL = None Detected oxyCODONE Ql (U) Not detected None Detected [facility] Comment on above: Urine Oxycodone Cuto ff: < 100 ng/mL = None Detected Screen results shoul d be used for treatment purposes only. Specimen will be kept for 1 week, if the sample is adequate. Confirmation testing can be initiated by calling the lab within 1 week. [facility] Alcohol, Medicalon Ethanol [Mass/Vol] mg/dL <10.00 mg/dL [facility] Comment on above: Alcohol cutoff: <10. 00 mg/dL = None Detected Basic metabolic 2000 panelon 09-26-2021 Anion gap [Moles/Vol] 12 mmol/L 10 - 2 0 mmol/L [facility] Calcium [Mass/Vol] 10.0 mg/dL 8.4 - 10. 2 mg/dL [facility] Chloride [Moles/Vol] 108 mmol/L 98 - 10 8 mmol/L [facility] Creatinine [Mass/Vol] 0.74 mg/dL 0.50 - 1.30 [facility] GFR/1.73 sq M.predicted CKD-EPI (S/P/Bld) [Vol rate/Area] 119 >=60 mL/min/1.73 m2 [facility] Glucose [Mass/Vol] 133 mg/dL High 65 - 99 mg/dL [facility] HCO3 [Moles/Vol] 22 mmol/L 21 - 32 mmol/L [facility] Interpretation and review of laboratory results Abnormal [facility] Potassium [Moles/Vol] 3.5 mmol/L 3.5 - 5.1 mmol/L [facility] Sodium [Moles/Vol] 138 mmol/L 135 - 145 mmol/L [facility] Urea nitrogen [Mass/Vol] 9 mg/dL 8 - 25 mg/dL [facility] Urea nitrogen/Creatinine [Mass ratio] 12.2 mg/mg [facility] The eGFR should be u sed for monitoring renal function only and not for medication dosing. [facility] CBC Auto Differentialon 08-30 Basophils (Bld) [#/Vol] 0.04 10*3/uL [facility] Basophils/100 WBC (Bld) 0.3 % [facility] Eosinophils (Bld) [#/Vol] 0.04 10*3/uL [facility] Eosinophils/100 WBC (Bld) 0.3 % [facility] Erythrocyte distribution width (RBC) [Entitic vol] 12.1 % 11.6 - 14.8 % [facility] Hematocrit (Bld) [Volume fraction] 46.5 % 41.0 - 53.0 % [facility] Hemoglobin (Bld) [Mass/Vol] 16.4 g/dL 13.5 - 17.5 g/dL [facility] Immature granulocytes (Bld) [#/Vol] 0.05 10*3/uL [facility] Immature granulocytes/100 WBC (Bld) 0.40 % [facility] Comment on above: The IG parameter is the percentage of metamyelocytes, myelocytes and promyelocytes. An immature granulocyte count (IG) of 1% or more suggests the possibility of infection, an IG count of 3% is very likely related to an infection. Interpretation and review of laboratory results Abnormal [facility] Lymphocytes (Bld) [#/Vol] 1.24 10*3/uL [facility] Lymphocytes/100 WBC (Bld) 9.7 % [facility] MCH (RBC) [Entitic mass] 29.4 pg 26. 0 - 34.0 pg [facility] MCHC (RBC) [Mass/Vol] 35.3 g/dL 31.0 - 37.0 g/dL [facility] MCV (RBC) [Entitic vol] 83.3 fL 80.0 - 100.0 fL [facility] Monocytes (Bld) [#/Vol] 0.51 10*3/uL [facility] Monocytes/100 WBC (Bld) 4.0 % [facility] Neutrophils (Bld) [#/Vol] 10.91 10*3/uL High [facility] Neutrophils/100 WBC (Bld) 85.3 % [facility] Nucleated RBC (Bld) [#/Vol] 0.00 10*3/uL [facility] Nucleated RBC/100 WBC (Bld) [Ratio] 0.0 % [facility] Platelet mean volume (Bld) [Entitic vol] 8.8 fL Low 9.4 - 12.4 fL [facility] Platelets (Bld) [#/Vol] 372 10*3/uL [facility] RBC (Bld) [#/Vol] 5.58 10*6/uL [facility] ealth WBC (Bld) [#/Vol] 12.79 10*3/uL [facility] Ethanol [Mass/Vol]on 022 Interpretation and review of laboratory results Normal [facility] CT ABDOMEN PELVIS WITH IV CO NTRAST ONLYon 07-20-2021 CT ABDOMEN PELVIS WITH IV CONTRAST ONLY EXAMINATION: CT ABDOMEN PELVIS WITH IV CONTRAST ONLY HISTORY: ORDERING SYSTEM PROVIDED HISTORY: Epigastric pain; Nausea/vomiting, TECHNOLOGIST PROVIDED HISTORY: Illness/Other Reason for exam: epigastric pain, vomiting Encounter Type: Initial Additional signs and symptoms: n/a ORDERING SYSTEM PROVIDED DIAGNOSIS CODES: COMPARISON: CT examination of the abdomen and pelvis 12/03/2019. TECHNIQUE: CT examination of the abdomen and pelvis following administration of 75 mL Isovue-370 intravenous contrast. Coronal and sagittal reformations are performed. Dose reduction techniques were achieved by using automated exposure control and/or adjustment of mA and/or kV according to patient size and/or use of iterative reconstruction technique. FINDINGS: The examination is moderately degraded by patient motion particularly in the region of the pelvis. LUNG BASES: Clear. ABDOMEN: Liver is homogeneous in attenuation without evidence for focal lesion. Gallbladder is unremarkable. The spleen, adrenal glands and pancreas are normal in appearance. No abdominal lymphadenopathy. Symmetric enhancement of the kidneys without evidence for hydronephrosis or definite intrarenal calculi. 10 mm right midpole renal cortical hypodensity, incompletely characterized on this motion degraded examination and statistically most likely represents a cyst, unchanged. PELVIS: No ureteral or bladder stone identified. No definite pelvic free fluid. No pelvic lymphadenopathy identified. There is a prominent amount of fluid within [id number] small bowel loops measuring up to 2.9 cm in caliber. There is a prominent amount of fluid within the rectum. No discrete abrupt point of transition identified. Appendix not definitively identified. No free air. No suspicious osteolytic or osteoblastic lesion. IMPRESSION: 1. Examination is moderately degraded by patient motion. 2. Fluid-filled proximal small bowel loops, mildly dilated. Prominent amount of fluid within the rectum. Findings may reflect ileus such as can be seen with an enteritis and underlying hypersecretory state. Low grade partial small bowel obstruction would be difficult to entirely exclude given extent of motion. 3. Appendix not identified. No secondary evidence for acute appendicitis, within the limits of motion. 4. No obstructive uropathy identified. [facility] Workstation ID: [id number] Dictated by: ELISHA ARTEAGA on TueJul 20, 2021 6:03:25 AM EST Transcribed by: WADE GEORGE on TueJul 20, 2021 6:10:14 AM EST Finalized by: ELISHA ARTEAGA on TueJul 20, 2021 7:01:39 AM EST Normal [facility] Comment on above: Order Comment: Injur y/Trauma or Illness?:Illness/Other How long have you had these symptoms (acute/chronic)?:Acute Reason for exam?:epigastric pain, vomiting Type of Exam?:Initial Additional signs and symptoms?:n/a Basic Metabolic Panelon 07-0 Anion gap [Moles/Vol] 12 mmol/L 10 - 2 0 mmol/L [facility] Calcium [Mass/Vol] 8.8 mg/dL 8.4 - 10. 2 mg/dL [facility] Chloride [Moles/Vol] 109 mmol/L High 98 - 10 8 mmol/L [facility] Creatinine [Mass/Vol] 0.87 mg/dL 0.50 - 1.30 [facility] GFR/1.73 sq M predicted among non-blacks MDRD (S/P/Bld) [Vol rate/Area] The eGFR should be used for monitoring renal function only and not for medication dosing. [facility] GFR/1.73 sq M.predicted CKD-EPI (S/P/Bld) [Vol rate/Area] 113 >=60 mL/min/1.73 m2 [facility] Glucose [Mass/Vol] 109 mg/dL High 65 - 99 mg/dL [facility] HCO3 [Moles/Vol] 25 mmol/L 21 - 32 mmol/L [facility] Potassium [Moles/Vol] 3.6 mmol/L 3.5 - 5.1 mmol/L [facility] Sodium [Moles/Vol] 142 mmol/L 135 - 145 mmol/L [facility] Urea nitrogen [Mass/Vol] 8 mg/dL 8 - 25 mg/dL [facility] Urea nitrogen/Creatinine [Mass ratio] 9.2 mg/mg Low [facility] CBC WITH AUTO DIFFERENTIALon 12-04-2019 Basophils (Bld) [#/Vol] 0.03 10*3/uL [facility] Basophils/100 WBC (Bld) 0.3 % [facility] Eosinophils (Bld) [#/Vol] 0.01 10*3/uL [facility] Eosinophils/100 WBC (Bld) 0.1 % [facility] Erythrocyte distribution width (RBC) [Entitic vol] 12.2 % 11.6 - 14.8 % [facility] Hematocrit (Bld) [Volume fraction] 44.1 % 41 - 53 % [facility] Hemoglobin (Bld) [Mass/Vol] 15.2 g/dL 13.5 - 17.5 g/dL [facility] Immature granulocytes (Bld) [#/Vol] 0.06 10*3/uL [facility] Immature granulocytes/100 WBC (Bld) 0.50 % [facility] Comment on above: The IG parameter is the percentage of metamyelocytes, myelocytes and promyelocytes. An immature granulocyte count (IG) of 1% or more suggests the possibility of infection, an IG count of 3% is very likely related to an infection. Lymphocytes (Bld) [#/Vol] 1.27 10*3/uL [facility] Lymphocytes/100 WBC (Bld) 10.7 % [facility] MCH (RBC) [Entitic mass] 29.0 pg 26 - 34 pg [facility] MCHC (RBC) [Mass/Vol] 34.5 g/dL 31 - 3 7 g/dL [facility] MCV (RBC) [Entitic vol] 84.0 fL 80 - 100 fL [facility] Monocytes (Bld) [#/Vol] 0.74 10*3/uL [facility] Monocytes/100 WBC (Bld) 6.2 % [facility] Neutrophils (Bld) [#/Vol] 9.79 10*3/uL High [facility] Neutrophils/100 WBC (Bld) 82.2 % [facility] Nucleated RBC (Bld) [#/Vol] 0.00 10*3/uL [facility] Nucleated RBC/100 WBC (Bld) [Ratio] 0.0 % [facility] Platelet mean volume (Bld) [Entitic vol] 8.6 fL Low 9.4 - 12.4 fL [facility] Platelets (Bld) [#/Vol] 356 10*3/uL [facility] RBC (Bld) [#/Vol] 5.25 10*6/uL [facility] WBC (Bld) [#/Vol] 11.90 10*3/uL [facility] Magnesiumon 12-04-2019 Interpretation and review of laboratory results Normal [facility] Magnesium [Mass/Vol] 1.7 mg/dL 1.6 - 2 .4 mg/dL [facility] Otheron 12-04-2019 Interpretation and review of laboratory results Abnormal [facility] Alcohol, Medicalon 0 Ethanol [Mass/Vol] mg/dL <10.00 mg/dL [facility] Comment on above: Alcohol cutoff: <10. 00 mg/dL = None Detected Interpretation and review of laboratory results Normal [facility] CBC WITH AUTO DIFFERENTIALon 12-03-2019 Basophils (Bld) [#/Vol] 0.03 10*3/uL [facility] Basophils/100 WBC (Bld) 0.2 % [facility] Eosinophils (Bld) [#/Vol] 0.04 10*3/uL [facility] Eosinophils/100 WBC (Bld) 0.3 % [facility] Erythrocyte distribution width (RBC) [Entitic vol] 12.0 % 11.6 - 14.8 % [facility] Hematocrit (Bld) [Volume fraction] 49.3 % 41 - 53 % [facility] Hemoglobin (Bld) [Mass/Vol] 17.0 g/dL 13.5 - 17.5 g/dL [facility] Immature granulocytes (Bld) [#/Vol] 0.04 10*3/uL [facility] Immature granulocytes/100 WBC (Bld) 0.30 % [facility] Comment on above: The IG parameter is the percentage of metamyelocytes, myelocytes and promyelocytes. An immature granulocyte count (IG) of 1% or more suggests the possibility of infection, an IG count of 3% is very likely related to an infection. Interpretation and review of laboratory results Abnormal [facility] Lymphocytes (Bld) [#/Vol] 1.41 10*3/uL [facility] Lymphocytes/100 WBC (Bld) 11.2 % [facility] MCH (RBC) [Entitic mass] 29.5 pg 26 - 34 pg [facility] MCHC (RBC) [Mass/Vol] 34.5 g/dL 31 - 3 7 g/dL [facility] MCV (RBC) [Entitic vol] 85.4 fL 80 - 100 fL [facility] Monocytes (Bld) [#/Vol] 0.47 10*3/uL [facility] Monocytes/100 WBC (Bld) 3.7 [facility] Neutrophils (Bld) [#/Vol] 10.65 10*3/uL High [facility] Neutrophils/100 WBC (Bld) 84.3 % [facility] Nucleated RBC (Bld) [#/Vol] 0.00 10*3/uL [facility] Nucleated RBC/100 WBC (Bld) [Ratio] 0.0 % [facility] Platelet mean volume (Bld) [Entitic vol] 8.6 fL Low 9.4 - 12.4 fL [facility] Platelets (Bld) [#/Vol] 391 10*3/uL [facility] RBC (Bld) [#/Vol] 5.77 10*6/uL [facility] WBC (Bld) [#/Vol] 12.64 10*3/uL [facility] COVID-19, Molecularon 2019 Interpretation and review of laboratory results Normal [facility] SARS-CoV-2 Not Detected Not Detected [facility] Comment on above: This test was perfor med under the FDA's Emergency Use Authorization (EUA). Testing was performed using the [employer] ID NOW COVID-19 assay on the ID NOW platform. This test has not been approved for use in asymptomatic patients and its performance in this patient population has not been evaluated. Negative results do not rule out the presence of SARS-CoV-2/COVID-19. Fact sheets for the EUA can be found at the following links: For Healthcare Providers: https://www.MetaStat.gov/media/815238/download For Patients: https://www.MetaStat.gov/media/011764/download CT Abdomen Pelvis With IV Co ntrast Onlyon 12-03-2019 EXAMINATION: CT ABDO MEN PELVIS WITH IV CONTRAST ONLY HISTORY: ORDERING SYSTEM PROVIDED HISTORY: Nausea/vomiting; Epigastric pain, TECHNOLOGIST PROVIDED HISTORY: Illness/Other Reason for exam: Nausea/vomiting; Epigastric pain Encounter Type: Initial Additional signs and symptoms: no ORDERING SYSTEM PROVIDED DIAGNOSIS CODES: COMPARISON: CT abdomen and pelvis 11/18/2019, retroperitoneal ultrasound 11/20/2012. TECHNIQUE: Following the uneventful administration of 75 mL Isovue-370 IV contrast, helical imaging of the abdomen and pelvis was performed. Multiplanar reformats are submitted. Dose reduction techniques were achieved by using: automated exposure control and/or adjustment of mA and/or kV according to patient size and/or use of iterative reconstruction technique. FINDINGS: ABDOMEN: The imaged lung bases are clear. Small hiatal hernia is seen at the GE junction. The liver, spleen, adrenals, kidneys, pancreas, gallbladder and biliary ducts are normal. There is no free fluid, fluid collection or adenopathy. No urinary tract calculi are present. The stomach, proximal small bowel and imaged portions of the colon are normal in course and caliber. The aorta and IVC are normal. There is no acute osseous abnormality. PELVIS: The distal ureters, urinary bladder, prostate, seminal vesicles, rectosigmoid colon, distal small bowel loops and appendix are normal. There are no distal urinary tract calculi. Minimal pelvic free fluid is seen in the posterior pelvis of uncertain etiology. There is no fluid collection or adenopathy. Pelvic vasculature is patent. No acute osseous lesions are identified. [facility], Rad In Fu ji Speechq - 12/03/2019 5:32 AM EDT EXAMINATION: CT ABDOMEN PELVIS WITH IV CONTRAST ONLY HISTORY: ORDERING SYSTEM PROVIDED HISTORY: Nausea/vomiting; Epigastric pain, TECHNOLOGIST PROVIDED HISTORY: Illness/Other Reason for exam: Nausea/vomiting; Epigastric pain Encounter Type: Initial Additional signs and symptoms: no ORDERING SYSTEM PROVIDED DIAGNOSIS CODES: COMPARISON: CT abdomen and pelvis 11/18/2019, retroperitoneal ultrasound 11/20/2012. TECHNIQUE: Following the uneventful administration of 75 mL Isovue-370 IV contrast, helical imaging of the abdomen and pelvis was performed. Multiplanar reformats are submitted. Dose reduction techniques were achieved by using: automated exposure control and/or adjustment of mA and/or kV according to patient size and/or use of iterative reconstruction technique. FINDINGS: ABDOMEN: The imaged lung bases are clear. Small hiatal hernia is seen at the GE junction. The liver, spleen, adrenals, kidneys, pancreas, gallbladder and biliary ducts are normal. There is no free fluid, fluid collection or adenopathy. No urinary tract calculi are present. The stomach, proximal small bowel and imaged portions of the colon are normal in course and caliber. The aorta and IVC are normal. There is no acute osseous abnormality. PELVIS: The distal ureters, urinary bladder, prostate, seminal vesicles, rectosigmoid colon, distal small bowel loops and appendix are normal. There are no distal urinary tract calculi. Minimal pelvic free fluid is seen in the posterior pelvis of uncertain etiology. There is no fluid collection or adenopathy. Pelvic vasculature is patent. No acute osseous lesions are identified. IMPRESSION: 1. No acute abdominal or pelvic inflammatory process. 2. Trace pelvic free fluid of uncertain significance. No fluid collection. 3. Normal appendix and no adenopathy. [employer] Workstation ID: [id number] [facility] 1. No acute abdomina l or pelvic inflammatory process. 2. Trace pelvic free fluid of uncertain significance. No fluid collection. 3. Normal appendix and no adenopathy. [facility] Workstation ID: [id number] [facility] Comprehensive Metabolic Pane heriberto 12-03-2019 Albumin [Mass/Vol] 4.1 g/dL 3.2 - 5.2 g/dL [facility] ALP [Catalytic activity/Vol] 112 U/L 40 - 140 U/L [facility] ALT [Catalytic activity/Vol] 26 U/L 14 - 65 U/L [facility] Anion gap [Moles/Vol] 16 mmol/L 10 - 2 0 mmol/L [facility] AST [Catalytic activity/Vol] 28 U/L 0 - 45 U/L [facility] Comment on above: moderate hemolysis, result may be falsely increased. Bilirubin [Mass/Vol] 0.8 mg/dL 0 - 1.3 mg/dL [facility] Calcium [Mass/Vol] 9.6 mg/dL 8.4 - 10. 2 mg/dL [facility] Chloride [Moles/Vol] 104 mmol/L 98 - 10 8 mmol/L [facility] Creatinine [Mass/Vol] 1.03 mg/dL 0.50 - 1.30 [facility] GFR/1.73 sq M predicted among non-blacks MDRD (S/P/Bld) [Vol rate/Area] The eGFR should be used for monitoring renal function only and not for medication dosing. [facility] GFR/1.73 sq M.predicted CKD-EPI (S/P/Bld) [Vol rate/Area] 94 >=60 mL/min/1.73 m2 [facility] Glucose [Mass/Vol] 112 mg/dL High 65 - 99 mg/dL [facility] HCO3 [Moles/Vol] 26 mmol/L 21 - 32 mmol/L [facility] Interpretation and review of laboratory results Abnormal [facility] Potassium [Moles/Vol] 4.1 mmol/L 3.5 - 5.1 mmol/L [facility] Comment on above: moderate hemolysis, result may be falsely increased. Protein [Mass/Vol] 8.8 g/dL High 6 - 8 g/dL [facility] Sodium [Moles/Vol] 142 mmol/L 135 - 145 mmol/L [facility] Urea nitrogen [Mass/Vol] 5 mg/dL Low 8 - 25 mg/dL [facility] Urea nitrogen/Creatinine [Mass ratio] 4.9 mg/mg Low [facility] DRUGS OF ABUSE SCREEN, URINE on 12-03-2019 Amphetamines Ql (U) None Detected None Detected [facility] Comment on above: Urine Amphetamine Cu toff: < 1000 ng/mL = None Detected Barbiturates Screen Ql (U) None Detected None Detected [facility] Comment on above: Urine Barbiturates C utoff: < 200 ng/mL = None Detected Benzodiazepines Ql (U) None Detected None Detected [facility] Comment on above: Urine Benzodiazepine Cutoff: < 200 ng/mL = None Detected Cannabinoids Screen Ql (U) Positive Abnormal None Detected [facility] Comment on above: Urine Cannabinoids C utoff: < 50 ng/mL = None Detected Cocaine Ql (U) None Detected None Detected [facility] Comment on above: Urine Cocaine Cutoff : < 300 ng/mL = None Detected Interpretation and review of laboratory results Abnormal [facility] Methadone Screen Ql (U) None Detected Non e Detected [facility] Comment on above: Urine Methadone Cuto ff: < 300 ng/mL = None Detected Opiates Screen Ql (U) Positive Abnormal None Detected [facility] Comment on above: Urine Opiates Cutoff : < 300 ng/mL = None Detected Oxycodone Ql (U) None Detected None Detected [facility] Comment on above: Urine Oxycodone Cuto ff: < 100 ng/mL = None Detected Screen results shoul d be used for treatment purposes only. Specimen will be kept for 1 week, if the sample is adequate. Confirmation testing can be initiated by calling the lab within 1 week. [facility] Lipaseon 12-03-2019 Interpretation and review of laboratory results Normal [facility] Lipase [Catalytic activity/Vol] 74 U/L 73 - 393 U/L [facility] Otheron 12-03-2019 Extra Tube Hold for add-ons. [facility] Comment on above: Auto resulted. URINALYSISon 12-03-2019 Bacteria Auto Ql (U) None Seen None Se en /hpf [facility] Bilirubin Ql (U) Negative Negative [facility] Clarity Refractometry automated (U) Clear Clear [facility] Color (U) Yellow Colorless, Yellow [facility] Glucose Auto test strip (U) [Mass/Vol] Negative Negative mg/dL [facility] Hemoglobin Auto test strip Ql (U) Negative Negative [facility] Interpretation and review of laboratory results Abnormal [facility] Ketones (U) [Mass/Vol] Trace Abnormal Negat tracie mg/dL [facility] Leukocyte esterase Auto test strip Ql (U) Negative Negative [facility] Mucus Auto (Urine sed) [#/Area] Rare None Seen, Rare /lpf [facility] Nitrite Auto test strip Ql (U) Negative Negative [facility] pH (U) 9.0 [pH] High [facility] Protein (U) [Mass/Vol] 30 Abnormal Negat tracie mg/dL [facility] Comment on above: False positive resul ts may occur in urines with large amounts of hemoglobin, pH greater than 8.0, contrast medium, or disinfectants including ammonium compounds. RBC Auto (Urine sed) [#/Area] <1 [facility] Specific gravity (U) [Rel density] 1.029 High [facility] Urobilinogen (U) [Mass/Vol] <2.0 <2.0 mg/dL [facility] WBC Auto (Urine sed) [#/Area] <1 [facility] Microscopic examinat ion is performed on all urinalysis samples and only positive findings are reported. The test for blood on the chemical analytic portion of urinalysis may also be positive due to hemoglobinuria and myoglobinuria and if red blood cells are present they are quantified by microscopic examination. [facility] CT Abdomen Pelvis With IV Co ntrast Onlyon 11-18-2019 Interface, Rad In Fu ji Speechq - 11/18/2019 1:45 AM EDT EXAMINATION: CT ABDOMEN WITH CONTRAST AND CT PELVIS WITH CONTRAST, 11/18/2019: HISTORY: Nausea/vomiting; Abdominal pain, acute, nonlocalized COMPARISON: CT abdomen and pelvis, 11/20/2012. TECHNIQUE: IV contrast enhanced axial CT imaging of the abdomen and pelvis was performed during injection of 75 mL of Isovue 370 intravenous contrast. Sagittal and coronal reconstructions are provided. Dose reduction techniques were achieved by using automated exposure control and/or adjustment of mA and/or kV according to patient size and/or use of iterative reconstruction technique. FINDINGS: CT ABDOMEN: The lung bases are clear. Cardiac size is normal. There is no pericardial effusion. The liver, gallbladder, pancreas, spleen, adrenal glands, and left kidney appear within normal limits. There is a cortical cyst in the posterior midpole of the right kidney. The right kidney is otherwise unremarkable. A circumaortic left renal vein is incidentally noted. The aorta, IVC, and stomach are unremarkable. There is thickened enhancing small bowel mucosa involving some of the jejunum and most of the ileum without bowel dilatation or pneumatosis. There is mild engorgement of the surrounding mesenteric vessels. CT PELVIS: The appendix is not seen. The prostate and urinary bladder are unremarkable. There is a normal volume of stool and gas in the colon. No inflammatory fat stranding, free fluid, loculated fluid or free air is seen in the abdomen or pelvis. The imaged axial skeleton appears intact. IMPRESSION: 1. Small bowel wall thickening and enhancement consistent with enteritis. Negative for bowel obstruction or pneumatosis. No other acute findings are seen in the abdomen or pelvis. 2. Right renal cyst. Workstation ID: [id number] [facility] EXAMINATION: CT ABDO MEN WITH CONTRAST AND CT PELVIS WITH CONTRAST, 11/18/2019: HISTORY: Nausea/vomiting; Abdominal pain, acute, nonlocalized COMPARISON: CT abdomen and pelvis, 11/20/2012. TECHNIQUE: IV contrast enhanced axial CT imaging of the abdomen and pelvis was performed during injection of 75 mL of Isovue 370 intravenous contrast. Sagittal and coronal reconstructions are provided. Dose reduction techniques were achieved by using automated exposure control and/or adjustment of mA and/or kV according to patient size and/or use of iterative reconstruction technique. FINDINGS: CT ABDOMEN: The lung bases are clear. Cardiac size is normal. There is no pericardial effusion. The liver, gallbladder, pancreas, spleen, adrenal glands, and left kidney appear within normal limits. There is a cortical cyst in the posterior midpole of the right kidney. The right kidney is otherwise unremarkable. A circumaortic left renal vein is incidentally noted. The aorta, IVC, and stomach are unremarkable. There is thickened enhancing small bowel mucosa involving some of the jejunum and most of the ileum without bowel dilatation or pneumatosis. There is mild engorgement of the surrounding mesenteric vessels. CT PELVIS: The appendix is not seen. The prostate and urinary bladder are unremarkable. There is a normal volume of stool and gas in the colon. No inflammatory fat stranding, free fluid, loculated fluid or free air is seen in the abdomen or pelvis. The imaged axial skeleton appears intact. [facility] 1. Small bowel wall thickening and enhancement consistent with enteritis. Negative for bowel obstruction or pneumatosis. No other acute findings are seen in the abdomen or pelvis. 2. Right renal cyst. Workstation ID: [id number] [facility] Comprehensive Metabolic Pane heriberto 11-18-2019 Albumin [Mass/Vol] 5.0 g/dL 3.2 - 5.2 g/dL [facility] ALP [Catalytic activity/Vol] 139 U/L 40 - 140 U/L [facility] ALT [Catalytic activity/Vol] 30 U/L 14 - 65 U/L [facility] Anion gap [Moles/Vol] 11 mmol/L 10 - 2 0 mmol/L [facility] AST [Catalytic activity/Vol] 22 U/L 0 - 45 U/L [facility] Bilirubin [Mass/Vol] 0.7 mg/dL 0 - 1.3 mg/dL [facility] Calcium [Mass/Vol] 10.6 mg/dL High 8.4 - 10. 2 mg/dL [facility] Chloride [Moles/Vol] 99 mmol/L 98 - 10 8 mmol/L [facility] Creatinine [Mass/Vol] 1.19 mg/dL 0.50 - 1.30 [facility] GFR/1.73 sq M predicted among non-blacks MDRD (S/P/Bld) [Vol rate/Area] The eGFR should be used for monitoring renal function only and not for medication dosing. [facility] GFR/1.73 sq M.predicted CKD-EPI (S/P/Bld) [Vol rate/Area] 79 >=60 mL/min/1.73 m2 [facility] Glucose [Mass/Vol] 123 mg/dL High 65 - 99 mg/dL [facility] HCO3 [Moles/Vol] 30 mmol/L 21 - 32 mmol/L [facility] Potassium [Moles/Vol] 4.3 mmol/L 3.5 - 5.1 mmol/L [facility] Protein [Mass/Vol] 10.5 g/dL High 6 - 8 g/dL [facility] Sodium [Moles/Vol] 136 mmol/L 135 - 145 mmol/L [facility] Urea nitrogen [Mass/Vol] 13 mg/dL 8 - 25 mg/dL [facility] Urea nitrogen/Creatinine [Mass ratio] 10.9 mg/mg [facility] Lipaseon 11-18-2019 Lipase [Catalytic activity/Vol] 63 U/L Low 73 - 393 U/L [facility] Otheron 11-18-2019 Interpretation and review of laboratory results Abnormal [facility] PT/INRon 11-18-2019 INR Coag (PPP) [Relative time] 1.1 {INR} [facility] Interpretation and review of laboratory results Normal [facility] PT Coag (PPP) [Time] 13.5 s [facility] During the induction phase of oral anticoagulation, the INR may not reflect the anticoagulation status of the patient. Therapeutic ranges for INR's are: Most clinical situations: INR 2.0-3.0 Mechanical Prosthetic Valve: INR 2.5-3.5 Critical: INR >5.0 [facility] CBC WITH AUTO DIFFERENTIALon 11-17-2019 Basophils (Bld) [#/Vol] 0.03 10*3/uL [facility] Basophils/100 WBC (Bld) 0.3 % [facility] Eosinophils (Bld) [#/Vol] 0.02 10*3/uL [facility] Eosinophils/100 WBC (Bld) 0.2 % [facility] Erythrocyte distribution width (RBC) [Entitic vol] 12.8 % 11.6 - 14.8 % [facility] Hematocrit (Bld) [Volume fraction] 56.1 % High 41 - 53 % [facility] Hemoglobin (Bld) [Mass/Vol] 18.7 g/dL High 13.5 - 17.5 g/dL [facility] Immature granulocytes (Bld) [#/Vol] 0.03 10*3/uL [facility] Immature granulocytes/100 WBC (Bld) 0.30 % [facility] Comment on above: The IG parameter is the percentage of metamyelocytes, myelocytes and promyelocytes. An immature granulocyte count (IG) of 1% or more suggests the possibility of infection, an IG count of 3% is very likely related to an infection. Interpretation and review of laboratory results Abnormal [facility] Lymphocytes (Bld) [#/Vol] 0.87 10*3/uL Low [facility] Lymphocytes/100 WBC (Bld) 8.4 % [facility] MCH (RBC) [Entitic mass] 28.9 pg 26 - 34 pg [facility] MCHC (RBC) [Mass/Vol] 33.3 g/dL 31 - 3 7 g/dL [facility] MCV (RBC) [Entitic vol] 86.6 fL 80 - 100 fL [facility] Monocytes (Bld) [#/Vol] 0.32 10*3/uL [facility] Monocytes/100 WBC (Bld) 3.1 % [facility] Neutrophils (Bld) [#/Vol] 9.08 10*3/uL High [facility] Neutrophils/100 WBC (Bld) 87.7 % [facility] Nucleated RBC (Bld) [#/Vol] 0.00 10*3/uL [facility] Nucleated RBC/100 WBC (Bld) [Ratio] 0.0 % [facility] Platelet mean volume (Bld) [Entitic vol] 8.3 fL Low 9.4 - 12.4 fL [facility] Platelets (Bld) [#/Vol] 419 10*3/uL High [facility] RBC (Bld) [#/Vol] 6.48 10*6/uL High [facility] WBC (Bld) [#/Vol] 10.35 10*3/uL [facility] COVID-19, Molecularon 2019 Interpretation and review of laboratory results Normal [facility] SARS-CoV-2 Not Detected Not Detected [facility] Comment on above: This test was perfor med under the FDA's Emergency Use Authorization (EUA). Testing was performed using the [employer] ID NOW COVID-19 assay on the ID NOW platform. This test has not been approved for use in asymptomatic patients and its performance in this patient population has not been evaluated. Negative results do not rule out the presence of SARS-CoV-2/COVID-19. Fact sheets for the EUA can be found at the following links: For Healthcare Providers: https://www.fda.gov/media/023705/download For Patients: https://www.fda.gov/media/235093/download XR HAND LEFT 3+ VIEWSon 04 IMPRESSION: No fract ure seen. [facility] EXAMINATION: X-ray l eft hand HISTORY: Pain after recent injury. COMPARISON: None. TECHNIQUE: 3 views FINDINGS: The bones are normally mineralized. No fracture is seen. 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 There is no joint dislocation or bone destruction. Mild swelling is present. [employer] User, Interfaces - 09/26/2018 6:35 PM EDT EXAMINATION: X-ray left hand HISTORY: Pain after recent injury. COMPARISON: None. TECHNIQUE: 3 views FINDINGS: The bones are normally mineralized. No fracture is seen. 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 There is no joint dislocation or bone destruction. Mild swelling is present. IMPRESSION IMPRESSION: No fracture seen. [employer] Culture, urine Bacteria identified Cx Nom (U) Positive [facility] Work Phone: Hemoglobin.gastrointestinal Ql (Maryanne fld) Gastric Occult Blood Positive [facility] Work Phone: No Panel Information Influenza Types A,B Direct FA (CECILIA) [facility] Work Phone: Vital Signs Date Time Vital Sign Value Performing Clinician Facility 11-26-2024 15:58-0400 Diastolic blood pressure 80 mm[Hg] Favian Robles RN Work Phone: [facility] Work Phone: 11-26-2024 15:58-0400 Heart rate 78 /min Favian Robles RN Work Phone: [facility] Work Phone: 11-26-2024 15:58-0400 Respiratory rate 16 /min Favian Robles RN Work Phone: [facility] Work Phone: 11-26-2024 15:58-0400 SaO2% (BldA) [Mass fraction] 98 % Favian Robles RN Work Phone: [facility] Work Phone: 11-26-2024 15:58-0400 Systolic blood pressure 115 mm[Hg] Favian Robles RN Work Phone: [facility] Work Phone: 11-12-2024 15:43-0400 Diastolic blood pressure 80 mm[Hg] Allan Elizabeth MD Work Phone: [facility] [employer] Work Phone: 11-12-2024 15:43-0400 Heart rate 79 /min Allan Elizabeth MD Work Phone: [facility] Work Phone: 11-12-2024 15:43-0400 Respiratory rate 16 /min Allan Elizabeth MD Work Phone: [facility] [employer] Work Phone: 11-12-2024 15:43-0400 SaO2% (BldA) [Mass fraction] 99 % Allan Elizabeth MD Work Phone: [facility] Work Phone: 11-12-2024 15:43-0400 Systolic blood pressure 110 mm[Hg] Allan Elizabeth MD Work Phone: [facility] Work Phone: 10-31-2024 16:12-0400 Diastolic blood pressure 70 mm[Hg] Allan Elizabeth MD Work Phone: [facility] Work Phone: 10-31-2024 16:12-0400 Heart rate 77 /min Allan Elizabeth MD Work Phone: [facility] Work Phone: 10-31-2024 16:12-0400 Respiratory rate 16 /min Allan Elizabeth MD Work Phone: [facility] Work Phone: 10-31-2024 16:12-0400 SaO2% (BldA) [Mass fraction] 96 % Allan Elizabeth MD Work Phone: [facility] Work Phone: 10-31-2024 16:12-0400 Systolic blood pressure 100 mm[Hg] Allan Elizabeth MD Work Phone: [facility] Work Phone: 09-03-2024 22:40-0400 Body temperature 98.2 [degF] Dr. Chemo Dunlap DO Work Phone: [facility] 09-03-2024 22:40-0400 Diastolic blood pressure 59 mm[Hg] Dr. Chemo Dunlap DO Work Phone: [facility] 09-03-2024 22:40-0400 Heart rate 91 /min Dr. Chemo Dunlap DO Work Phone: [facility] 09-03-2024 22:40-0400 Respiratory rate 18 /min Dr. Chemo Dunlap DO Work Phone: [facility] 09-03-2024 22:40-0400 SaO2% (BldA) [Mass fraction] 96 % Dr. Chemo Dunlap DO Work Phone: [facility] 09-03-2024 22:40-0400 Systolic blood pressure 139 mm[Hg] Dr. Chemo Dunlap DO Work Phone: [facility] 09-03-2024 19:07-0400 Body height 175.[address] Chemo Dunlap DO Work Phone: [facility] 09-03-2024 19:07-0400 Body mass index (BMI) [Ratio] 27.5 kg/m2 Dr. Chemo Dunlap DO Work Phone: 9(831)662-508008 [place] [address] 09-03-2024 19:07-0400 Body weight 84.[address] Chemo Dunlap DO Work Phone: 9(897)302-043908 [place] [address] 09-01-2024 13:51-0400 Body temperature 97.9 [degF] Dr. Chemo Dunlap DO Work Phone: 2(073)401-170208 [place] [address] 09-01-2024 13:51-0400 Diastolic blood pressure 102 mm[Hg] Dr. Chemo Dunlap DO Work Phone: 5(930)409-933016 [place] [address] 09-01-2024 13:51-0400 Heart rate 85 /min Dr. Chemo Dunlap DO Work Phone: 8(231)272-453316 [place] [address] 09-01-2024 13:51-0400 Respiratory rate 22 /min Dr. Chemo Dunlap DO Work Phone: 1(224)625-042008 [place] [address] 09-01-2024 13:51-0400 SaO2% (BldA) [Mass fraction] 96 % Dr. Chemo Dunlap DO Work Phone: 2(061)513-254308 [place] [address] 09-01-2024 13:51-0400 Systolic blood pressure 148 mm[Hg] Dr. Chemo Dunlap DO Work Phone: 9(578)256-750708 [place] [address] 09-01-2024 10:15-0400 Body mass index (BMI) [Ratio] 26.9 kg/m2 Dr. Chemo Dunlap DO Work Phone: 4(406)116-390608 [place] [address] 09-01-2024 10:15-0400 Body weight 82.[address] Chemo Dunlap DO Work Phone: 2(723)587-291308 [place] [address] 09-01-2024 10:11-0400 Body height 175.[address] Chemo Dunlap DO Work Phone: [facility] 08-14-2024 11:45-0400 Heart rate 104 /min Edgar Powers MD Work Phone: [facility] 08-14-2024 11:45-0400 Respiratory rate 16 /min Edgar Powers MD Work Phone: [facility] 08-14-2024 11:45-0400 SaO2% (BldA) [Mass fraction] 99 % Edgar Powers MD Work Phone: [facility] 08-14-2024 11:32-0400 Diastolic blood pressure 99 mm[Hg] Edgar Powers MD Work Phone: [facility] 08-14-2024 11:32-0400 Systolic blood pressure 143 mm[Hg] Edgar Powers MD Work Phone: [facility] 08-13-2024 09:37-0400 Body temperature 96.6 [degF] Edgar Powers MD Work Phone: [facility] 08-13-2024 09:33-0400 Body height 175.3 cm Edgar Powers MD Work Phone: [facility] 08-13-2024 09:33-0400 Body mass index (BMI) [Ratio] 27.32 kg/m2 Edgar Powers MD Work Phone: [facility] 08-13-2024 09:33-0400 Body weight 83.92 kg Edgar Powers MD Work Phone: [employer] [facility] 04-11-2024 04:30-0500 Body temperature 99.3 [degF] James Neil MD Work Phone: [employer] [facility] 04-11-2024 04:30-0500 Diastolic blood pressure 77 mm[Hg] James Neil MD Work Phone: [employer] [facility] 04-11-2024 04:30-0500 Heart rate 72 /min James Neil MD Work Phone: [employer] [facility] 04-11-2024 04:30-0500 Respiratory rate 16 /min James Neil MD Work Phone: [facility] 04-11-2024 04:30-0500 SaO2% (BldA) [Mass fraction] 99 % James Neil MD Work Phone: [facility] 04-11-2024 04:30-0500 Systolic blood pressure 133 mm[Hg] James Neil MD Work Phone: [facility] 04-11-2024 00:49-0500 Body height 175.3 cm James Neil MD Work Phone: [facility] 04-11-2024 00:49-0500 Body mass index (BMI) [Ratio] 29.53 kg/m2 James Neil MD Work Phone: [facility] 04-11-2024 00:49-0500 Body weight 90.72 kg James Neil MD Work Phone: [facility] 11-08-2023 19:31-0400 Diastolic blood pressure 103 mm[Hg] Marc Lainez DO Work Phone: [facility] 11-08-2023 19:31-0400 Heart rate 108 /min [employer] DO Work Phone: [facility] 11-08-2023 19:31-0400 Respiratory rate 15 /min Marc Lainez DO Work Phone: [facility] 11-08-2023 19:31-0400 SaO2% (BldA) [Mass fraction] 98 % Marc Lainez DO Work Phone: [facility] 11-08-2023 19:31-0400 Systolic blood pressure 154 mm[Hg] Marc Emersonbour DO Work Phone: [facility] 11-08-2023 04:08-0400 Body temperature 99.1 [degF] Marc Lainez DO Work Phone: [facility] 11-07-2023 18:42-0400 Body height 175.3 cm Marc Lainez DO Work Phone: [facility] 11-07-2023 18:42-0400 Body mass index (BMI) [Ratio] 26.58 kg/m2 Marc Lainez DO Work Phone: [facility] 11-07-2023 18:42-0400 Body weight 81.65 kg Marc Lainez DO Work Phone: [employer] [facility] 10-29-2023 07:32-0400 Diastolic blood pressure 88 mm[Hg] James Neil MD Work Phone: [employer] [facility] 10-29-2023 07:32-0400 Heart rate 82 /min James Neil MD Work Phone: [employer] [facility] 10-29-2023 07:32-0400 SaO2% (BldA) [Mass fraction] 99 % James Neil MD Work Phone: [facility] 10-29-2023 07:32-0400 Systolic blood pressure 119 mm[Hg] James Neil MD Work Phone: [facility] 10-29-2023 07:32-0400 Body temperature 98.4 [degF] James Neil MD Work Phone: [employer] [facility] 10-29-2023 07:32-0400 Respiratory rate 16 /min James Neil MD Work Phone: [facility] 10-25-2023 13:56-0400 Body height 175.3 cm James Neil MD Work Phone: [facility] 10-25-2023 13:56-0400 Body mass index (BMI) [Ratio] 27.32 kg/m2 James Neil MD Work Phone: [facility] 10-25-2023 13:56-0400 Body weight 83.92 kg James Neil MD Work Phone: [facility] 09-26-2023 10:28-0400 Body temperature 98.4 [degF] Radha Batista ENTREPRENEURSHIP PROGRAM DIRECTOR - OFFICE NURSE PRACTITIONER Work Phone: [employer] [facility] 09-26-2023 10:28-0400 Diastolic blood pressure 84 mm[Hg] Radha Batista ENTREPRENEURSHIP PROGRAM DIRECTOR - OFFICE NURSE PRACTITIONER Work Phone: [employer] [facility] 09-26-2023 10:28-0400 Heart rate 112 /min Radha Roldan ENTREPRENEURSHIP PROGRAM DIRECTOR - OFFICE NURSE PRACTITIONER Work Phone: [facility] 09-26-2023 10:28-0400 SaO2% (BldA) [Mass fraction] 100 % Radha Roldan ENTREPRENEURSHIP PROGRAM DIRECTOR - OFFICE NURSE PRACTITIONER Work Phone: [facility] 09-26-2023 10:28-0400 Systolic blood pressure 120 mm[Hg] Radha Roldan ENTREPRENEURSHIP PROGRAM DIRECTOR - OFFICE NURSE PRACTITIONER Work Phone: [facility] 08-29-2023 17:46-0400 Body height 175.3 cm Geneva Caldera ENTREPRENEURSHIP PROGRAM DIRECTOR.MONOTYPE MECHANIC Work Phone: [facility] 08-29-2023 17:46-0400 Body temperature 98.49 [degF] Geneva Caldera ENTREPRENEURSHIP PROGRAM DIRECTOR.MONOTYPE MECHANIC Work Phone: [facility] 08-29-2023 17:46-0400 Body weight 87.55 kg Geneva Caldera ENTREPRENEURSHIP PROGRAM DIRECTOR.MONOTYPE MECHANIC Work Phone: [facility] 08-29-2023 17:46-0400 Diastolic blood pressure 85 mm[Hg] Geneva Caldera ENTREPRENEURSHIP PROGRAM DIRECTOR.MONOTYPE MECHANIC Work Phone: [facility] 08-29-2023 17:46-0400 Heart rate 94 /min Geneva Caldera ENTREPRENEURSHIP PROGRAM DIRECTOR.MONOTYPE MECHANIC Work Phone: [facility] 08-29-2023 17:46-0400 Respiratory rate 16 /min Geneva Caldera ENTREPRENEURSHIP PROGRAM DIRECTOR.MONOTYPE MECHANIC Work Phone: [facility] 08-29-2023 17:46-0400 SaO2% (BldA) [Mass fraction] 96 % Geneva Caldera ENTREPRENEURSHIP PROGRAM DIRECTOR.MONOTYPE MECHANIC Work Phone: [facility] 08-29-2023 17:46-0400 Systolic blood pressure 154 mm[Hg] Geneva Caldera ENTREPRENEURSHIP PROGRAM DIRECTOR.MONOTYPE MECHANIC Work Phone: [facility] 08-22-2023 22:23-0400 Body temperature 98.29 [degF] Marc Lainez DO Work Phone: [facility] 08-22-2023 22:23-0400 Diastolic blood pressure 77 mm[Hg] Marc Lainez DO Work Phone: [facility] 08-22-2023 22:23-0400 Heart rate 91 /min Marc Lainez DO Work Phone: [facility] 08-22-2023 22:23-0400 Respiratory rate 14 /min Marc Lainez DO Work Phone: [facility] 08-22-2023 22:23-0400 SaO2% (BldA) [Mass fraction] 98 % Marc Lainez DO Work Phone: [facility] 08-22-2023 22:23-0400 Systolic blood pressure 109 mm[Hg] Marc Lainez DO Work Phone: [facility] 06-07-2023 08:13-0500 Body temperature 98.2 [degF] James Neil MD Work Phone: [facility] 06-07-2023 08:13-0500 Diastolic blood pressure 77 mm[Hg] James Neil MD Work Phone: [facility] 06-07-2023 08:13-0500 Heart rate 74 /min James Neil MD Work Phone: [facility] 06-07-2023 08:13-0500 Respiratory rate 20 /min James Neil MD Work Phone: [facility] 06-07-2023 08:13-0500 SaO2% (BldA) [Mass fraction] 94 % James Neil MD Work Phone: [facility] 06-07-2023 08:13-0500 Systolic blood pressure 106 mm[Hg] James Neil MD Work Phone: [facility] 06-06-2023 18:33-0500 Body mass index (BMI) [Ratio] 29.53 kg/m2 James Neil MD Work Phone: [facility] 06-06-2023 18:33-0500 Body weight 90.72 kg James Neil MD Work Phone: [facility] 05-28-2023 06:30-0500 Body temperature 98.1 [degF] Fabiola Knox DO Work Phone: [employer] [facility] 05-28-2023 06:30-0500 Diastolic blood pressure 76 mm[Hg] Fabiola Knox DO Work Phone: [facility] 05-28-2023 06:30-0500 Heart rate 79 /min Fabiola Knox DO Work Phone: [facility] 05-28-2023 06:30-0500 Respiratory rate 13 /min Fabiola Knox DO Work Phone: [employer] [facility] 05-28-2023 06:30-0500 SaO2% (BldA) [Mass fraction] 96 % Fabiola Knox DO Work Phone: [facility] 05-28-2023 06:30-0500 Systolic blood pressure 110 mm[Hg] Fabiola Knox DO Work Phone: [facility] 03-08-2023 18:56-0400 Body height 175.3 cm Alex Santiago MD Work Phone: [facility] 03-08-2023 18:56-0400 Body mass index (BMI) [Ratio] 28.06 kg/m2 Alex Santiago MD Work Phone: [facility] 03-08-2023 18:56-0400 Body temperature 98.6 [degF] Alex Santiago MD Work Phone: [facility] 03-08-2023 18:56-0400 Body weight 86.18 kg Alex Santiago MD Work Phone: [facility] 03-08-2023 18:56-0400 Diastolic blood pressure 71 mm[Hg] Alex Santiago MD Work Phone: [facility] 03-08-2023 18:56-0400 Heart rate 108 /min Alex Santiago MD Work Phone: [facility] 03-08-2023 18:56-0400 Respiratory rate 16 /min Alex Santiago MD Work Phone: [facility] 03-08-2023 18:56-0400 SaO2% (BldA) [Mass fraction] 96 % Alex Santiago MD Work Phone: [facility] 03-08-2023 18:56-0400 Systolic blood pressure 131 mm[Hg] Alex Santiago MD Work Phone: [facility] 02-23-2023 17:30-0400 Body temperature 98.2 [degF] Alex Santiago MD Work Phone: [facility] 02-23-2023 17:30-0400 Diastolic blood pressure 74 mm[Hg] Alex Santiago MD Work Phone: [facility] 02-23-2023 17:30-0400 Heart rate 91 /min Alex Santiago MD Work Phone: [facility] 02-23-2023 17:30-0400 Respiratory rate 16 /min Alex Santiago MD Work Phone: [facility] 02-23-2023 17:30-0400 SaO2% (BldA) [Mass fraction] 100 % Alex Santiago MD Work Phone: [facility] 02-23-2023 17:30-0400 Systolic blood pressure 117 mm[Hg] Alex Santiago MD Work Phone: [facility] 09-28-2022 10:35-0400 Body height 175.26 cm No Primary Care Physician [facility] 09-28-2022 10:35-0400 Body mass index (BMI) [Ratio] 27.4 kg/m2 No Primary Care Physician [facility] 09-28-2022 10:35-0400 Body temperature 98.2 [degF] No Primary Care Physician [facility] 09-28-2022 10:35-0400 Body weight 84.36 kg No Primary Care Physician [facility] 09-28-2022 10:35-0400 Diastolic blood pressure 86 mm[Hg] No Primary Care Physician [facility] 09-28-2022 10:35-0400 Heart rate 95 /min No Primary Care Physician [facility] 09-28-2022 10:35-0400 Respiratory rate 18 /min No Primary Care Physician [facility] 09-28-2022 10:35-0400 SaO2% (BldA) [Mass fraction] 97 % No Primary Care Physician [facility] 09-28-2022 10:35-0400 Systolic blood pressure 136 mm[Hg] No Primary Care Physician [facility] 06-04-2022 09:30-0500 Respiratory rate 18 /min Charlie Johnson MD Work Phone: [facility] 06-04-2022 08:12-0500 Body temperature 99.3 [degF] Charlie Johnson MD Work Phone: [facility] 06-04-2022 08:12-0500 Diastolic blood pressure 98 mm[Hg] Charlie Johnson MD Work Phone: [facility] 06-04-2022 08:12-0500 Heart rate 88 /min Charlie Johnson MD Work Phone: [facility] 06-04-2022 08:12-0500 SaO2% (BldA) [Mass fraction] 94 % Charlie Johnson MD Work Phone: [facility] 06-04-2022 08:12-0500 Systolic blood pressure 142 mm[Hg] Charlie Johnson MD Work Phone: [facility] 06-01-2022 11:15-0500 SaO2% (BldA) [Mass fraction] 94.0 % Charlie Johnson MD Work Phone: [facility] 06-01-2022 03:48-0500 SaO2% (BldA) [Mass fraction] 94.0 % Charlie Johnson MD Work Phone: [facility] 05-31-2022 08:06-0500 Body height 175.3 cm Charlie Johnson MD Work Phone: [facility] 05-31-2022 08:06-0500 Body mass index (BMI) [Ratio] 29.24 kg/m2 Charlie Johnson MD Work Phone: [facility] 05-31-2022 08:06-0500 Body weight 89.8 kg Charlie Johnson MD Work Phone: [facility] 05-13-2022 23:05-0500 Heart rate 86 /min Jayant Trimble MD Work Phone: [facility] 05-13-2022 23:05-0500 SaO2% (BldA) [Mass fraction] 96 % Jayant Trimble MD Work Phone: [facility] 05-13-2022 21:57-0500 Diastolic blood pressure 77 mm[Hg] Jayant Trimble MD Work Phone: [facility] 05-13-2022 21:57-0500 Systolic blood pressure 132 mm[Hg] Jayant Trimble MD Work Phone: [facility] 05-13-2022 21:03-0500 Respiratory rate 22 /min Jayant Trimble MD Work Phone: [facility] 05-13-2022 20:38-0500 Body height 175.3 cm Jayant Trimble MD Work Phone: [facility] 05-13-2022 20:37-0500 Body temperature 98.2 [degF] Jayant Trimble MD Work Phone: [facility] 04-26-2022 09:10-0500 Body temperature 98.2 [degF] No Primary Care Physician [facility] Work Phone: 04-26-2022 09:10-0500 Diastolic blood pressure 96 mm[Hg] No Primary Care Physician [facility] Work Phone: 04-26-2022 09:10-0500 Heart rate 110 /min No Primary Care Physician [facility] Work Phone: 04-26-2022 09:10-0500 Respiratory rate 17 /min No Primary Care Physician [facility] Work Phone: 04-26-2022 09:10-0500 SaO2% (BldA) [Mass fraction] 97 % No Primary Care Physician [facility] Work Phone: 04-26-2022 09:10-0500 Systolic blood pressure 133 mm[Hg] No Primary Care Physician [facility] Work Phone: 04-25-2022 03:00-0500 Inhaled oxygen flow rate 2 L/min No Primary Care Physician [facility] Work Phone: 04-22-2022 12:31-0500 Body height 175.26 cm No Primary Care Physician [facility] Work Phone: 04-22-2022 12:31-0500 Body weight 89.35 kg No Primary Care Physician [facility] Work Phone: 04-21-2022 20:11-0500 Body temperature 98.1 [degF] [facility] Work Phone: 04-21-2022 20:11-0500 Diastolic blood pressure 67 mm[Hg] [facility] Work Phone: 04-21-2022 20:11-0500 Heart rate 100 /min [facility] Work Phone: 04-21-2022 20:11-0500 Respiratory rate 18 /min [facility] Work Phone: 04-21-2022 20:11-0500 Systolic blood pressure 131 mm[Hg] [facility] Work Phone: 04-21-2022 17:04-0500 Body height 175.26 cm [facility] Work Phone: 04-21-2022 17:04-0500 Body mass index (BMI) [Ratio] 28 kg/m2 [facility] Work Phone: 04-21-2022 17:04-0500 Body weight 86.18 kg [facility] Work Phone: 04-21-2022 17:04-0500 SaO2% (BldA) [Mass fraction] 96 % [facility] Work Phone: 10-07-2021 11:00-0400 Diastolic blood pressure 79 mm[Hg] Susan Ca MD Work Phone: [facility] 10-07-2021 11:00-0400 Heart rate 82 /min Susan Ca MD Work Phone: [facility] 10-07-2021 11:00-0400 Respiratory rate 8 /min Susan Ca MD Work Phone: [facility] 10-07-2021 11:00-0400 SaO2% (BldA) [Mass fraction] 94 % Susan Ca MD Work Phone: [facility] 10-07-2021 11:00-0400 Systolic blood pressure 149 mm[Hg] Susan Ca MD Work Phone: [facility] 10-07-2021 10:37-0400 Body temperature 97.59 [degF] Susan Ca MD Work Phone: [facility] 10-07-2021 09:31-0400 Body height 175.3 cm Susan Ca MD Work Phone: [facility] 10-07-2021 09:31-0400 Body mass index (BMI) [Ratio] 26.29 kg/m2 Susan Ca MD Work Phone: [facility] 10-07-2021 09:31-0400 Body weight 80.74 kg Susan Ca MD Work Phone: [facility] 09-30-2021 09:43-0400 Diastolic blood pressure 85 mm[Hg] Drake Sandoval MD Work Phone: [facility] 09-30-2021 09:43-0400 Systolic blood pressure 126 mm[Hg] Drake Sandoval MD Work Phone: [facility] 09-30-2021 07:38-0400 Body temperature 98.29 [degF] Drake Sandoval MD Work Phone: [facility] 09-30-2021 07:38-0400 Heart rate 75 /min Drake Sandoval MD Work Phone: [facility] 09-30-2021 07:38-0400 Respiratory rate 16 /min Drake Sandoval MD Work Phone: [facility] 09-30-2021 07:38-0400 SaO2% (BldA) [Mass fraction] 98 % Drake Sandoval MD Work Phone: [facility] 09-27-2021 06:19-0400 Body height 175.3 cm Drake Sandoval MD Work Phone: [facility] 09-27-2021 06:19-0400 Body mass index (BMI) [Ratio] 27.15 kg/m2 Drake Sandoval MD Work Phone: [facility] 09-27-2021 06:19-0400 Body weight 83.4 kg Drake Sandoval MD Work Phone: [facility] 08-19-2021 14:05-0400 Heart rate 72 /min Susan Ca MD Work Phone: [facility] 08-19-2021 14:05-0400 Respiratory rate 12 /min Susan Ca MD Work Phone: [facility] 08-19-2021 14:05-0400 SaO2% (BldA) [Mass fraction] 97 % Susan Ca MD Work Phone: [facility] 08-19-2021 14:00-0400 Diastolic blood pressure 65 mm[Hg] Susan Ca MD Work Phone: [facility] 08-19-2021 14:00-0400 Systolic blood pressure 159 mm[Hg] Susan Ca MD Work Phone: [facility] 08-19-2021 13:28-0400 Body temperature 98.01 [degF] Susan Ca MD Work Phone: [facility] 08-19-2021 09:40-0400 Body height 175.3 cm Susan Ca MD Work Phone: [facility] 08-19-2021 09:40-0400 Body mass index (BMI) [Ratio] 26.29 kg/m2 Susan Ca MD Work Phone: [facility] 08-19-2021 09:40-0400 Body weight 80.74 kg Susan Ca MD Work Phone: [facility] 12-04-2019 18:26-0400 Respiratory Rate 14 /min [facility] 12-04-2019 15:19-0400 Body Temperature 98.8 [degF] [facility] 12-04-2019 15:19-0400 BP Diastolic 71 mm[Hg] [facility] 12-04-2019 15:19-0400 BP Systolic 120 mm[Hg] [facility] 12-04-2019 15:19-0400 Pulse (Heart Rate) 51 /min [facility] 12-04-2019 15:19-0400 Pulse Oximetry 97 % [facility] 12-03-2019 07:38-0400 BMI (Body Mass Index) 27.43 kg/m2 [facility] 12-03-2019 07:38-0400 Body weight 77.1 kg [facility] 12-03-2019 07:38-0400 Height 167.6 cm [facility] 11-18-2019 03:15-0400 BP Diastolic 80 mm[Hg] [facility] 11-18-2019 03:15-0400 BP Systolic 132 mm[Hg] [facility] 11-18-2019 03:15-0400 Pulse (Heart Rate) 72 /min [facility] 11-18-2019 03:15-0400 Pulse Oximetry 97 % [facility] 11-18-2019 03:15-0400 Respiratory Rate 16 /min [facility] 11-17-2019 22:22-0400 BMI (Body Mass Index) 29.05 kg/m2 [facility] 11-17-2019 22:22-0400 Body Temperature 98.2 [degF] [facility] 11-17-2019 22:22-0400 Body weight 81.65 kg [facility] 11-17-2019 22:22-0400 Height 167.6 cm [facility] 09-26-2018 17:35-0400 BMI (Body Mass Index) 25.09 kg/m2 [facility] 09-26-2018 17:35-0400 Body weight 74.84 kg [facility] 09-26-2018 17:35-0400 Height 172.7 cm [facility] 09-26-2018 17:34-0400 Body Temperature 98.71 [degF] [facility] 09-26-2018 17:34-0400 BP Diastolic 62 mm[Hg] [facility] 09-26-2018 17:34-0400 BP Systolic 115 mm[Hg] [facility] 09-26-2018 17:34-0400 Pulse (Heart Rate) 73 /min [facility] 09-26-2018 17:34-0400 Pulse Oximetry 97 % [facility] 09-26-2018 17:34-0400 Respiratory Rate 18 /min [facility] 02-20-2018 13:38-0400 BMI (Body Mass Index) 25.84 kg/m2 [facility]-20[facility] 13:38-0400 Height 175.3 cm [facility] 02-20-2018 13:38-0400 Respiratory Rate 16 /[facility] 13:38-0400 [facility] 79.38 [facility] En[facility]ters Encounter Date Encounter Type Care Provider Facility Start: 11-28-2024 ambulatory NANCY Hagan [facility] Start: 11-27-2024 End: 11-27-2024 Office outpatient visit 5 minutes Favian Robles RN Work Phone: [facility] Comment on above: Arrived Start: 11-27-2024 End: 11-27-2024 ambulatory [facility] Start: 11-26-2024 End: 11-27-2024 Office outpatient visit 5 minutes Favian Robles RN Work Phone: [facility] Start: 11-12-2024 End: 11-12-2024 Office outpatient visit 25 minutes Allan Elizabeth MD Work Phone: [facility] Start: 10-31-2024 End: 10-31-2024 Office outpatient new 45 minutes Allan Elizabeth MD Work Phone: [facility] Comment on above: Opioid use disorder (Primary Dx); Opioid use disorder, severe, in early remission (HCC-CMS) Start: 10-31-2024 ambulatory [facility]IZ[facility] Start: 09-03-2024 End: 09-03-2024 Emergency department patient visit Dr. Chemo Dunlap DO Work Phone: -Emergency Department Work Phone: Start: 09-01-2024 End: 09-01-2024 Emergency department patient visit Dr. Chemo Dunlap DO Work Phone: -Emergency Department Work Phone: Start: 08-13-2024 End: 08-14-2024 Emergency department patient visit [facility] Comment on above: Opiate withdrawal (H CC) (Primary Dx) Start: 04-12-2024 End: 04-13-2024 ambulatory Alyson Alexander DISPENSING AUDIOLOGIST [facility] Start: 04-11-2024 End: 04-11-2024 Emergency department patient visit James Neil MD Work Phone: [facility] Comment on above: Nausea and vomiting, unspecified vomiting type (Primary Dx); Marijuana use Start: 12-03-2023 End: 12-05-2023 Telephone encounter Giuliano Garcia RN [facility] Start: 12-02-2023 End: 12-02-2023 Telephone encounter Vianey Proctor RN [facility] Start: 11-10-2023 Telephone encounter Vianey Proctor RN [facility] Start: 11-10-2023 ambulatory Lang Montilla Facility :[facility] Start: 11-10-2023 End: 11-10-2023 ambulatory Fahad Pepe Facility:[facility] Start: 11-08-2023 ambulatory Fahad Pepe Fac ility:[facility] Start: 11-08-2023 End: 11-11-2023 Evaluation and management of inpatient Fahad Pepe Facility:[facility] Start: 11-07-2023 End: 11-08-2023 Emergency department patient visit Marc Lainez DO Work Phone: [facility] Comment on above: Fentanyl use disorde r, mild, abuse (CMS/HCC) (HCC) (Primary Dx); Nausea and vomiting, unspecified vomiting type Start: 10-29-2023 Telephone encounter Jose Carcamo RN [facility] Clinical Communication Comment on above: Appointment Request Start: 10-25-2023 End: 10-29-2023 Evaluation and management of inpatient James Neil MD Work Phone: [facility] Ac[facility] Adaptable Unit AAU 2 Comment on above: Opioid use disorder (Primary Dx); Dehydration; Nausea vomiting and diarrhea; Cyclic vomiting syndrome Start: 09-27-2023 Evaluation and manag ement of inpatient [facility] Facility:[facility] Start: 09-26-2023 Emergency department patient visit [facility] Facility:[facility] Start: 09-26-2023 End: 09-26-2023 Patient encounter procedure Radha Batista APRN - OFFICE NURSE PRACTITIONER Work Phone: [facility] Comment on above: Cramping of hands (P rimary Dx); Dizziness; Nausea and vomiting, unspecified vomiting type Start: 09-26-2023 End: 09-26-2023 ambulatory RADHA BATISTA [facility] Start: 08-29-2023 End: 08-29-2023 ambulatory Facility:[facility] Start: 08-29-2023 End: 08-29-2023 Office outpatient visit 25 minutes Geneva Caldera APRN.MONOTYPE MECHANIC Work Phone: [facility] Comment on above: Tinnitus, unspecifie d laterality (Primary Dx); Acute otalgia, bilateral; Eustachian tube dysfunction, bilateral; TMJ tenderness, right Start: 08-22-2023 End: 08-22-2023 Emergency department patient visit Marc Lainez DO Work Phone: [facility] Comment on above: Subungual hematoma o f fingernail, initial encounter (Primary Dx) Start: 06-06-2023 End: 06-07-2023 Emergency department patient visit James Neil MD Work Phone: [facility] Clinical Decision Unit CDU Comment on above: Nausea and vomiting, unspecified vomiting type (Primary Dx); Abdominal pain, unspecified abdominal location; Leukocytosis, unspecified type Start: 05-27-2023 End: 05-28-2023 Emergency department patient visit Fabiola Knox DO Work Phone: [facility] Comment on above: Opiate overdose, acc idental or unintentional, initial encounter (HCC) (Primary Dx) Start: 03-08-2023 End: 03-08-2023 Emergency department patient visit Alex Santiago MD Work Phone: [facility] Comment on above: Thrombosed external hemorrhoid (Primary Dx) Start: 02-23-2023 End: 02-23-2023 Subsequent hospital visit by physician [facility] X[facility] Portable [facility] Radiology Comment on above: Arrived Start: 02-23-2023 End: 02-23-2023 Emergency department patient visit Alex Santiago MD Work Phone: [facility] Comment on above: Foreign body in skin of finger of right hand (Primary Dx) Start: 09-28-2022 End: 09-28-2022 ambulatory No Primary Care Physician [facility] Work Phone: Start: 09-28-2022 End: 09-28-2022 Patient encounter procedure No Primary Care Physician [facility]-Laboratory, Specimen Start: 09-28-2022 End: 09-28-2022 Patient encounter procedure No Primary Care Physician [facility] Start: 06-24-2022 Telephone encounter Delia Plunkett [facility] UM & Care Coordination Start: 06-01-2022 End: 06-02-2022 Evaluation and management of inpatient [facility] Start: 05-30-2022 End: 06-04-2022 Evaluation and management of inpatient [facility] Start: 05-30-2022 Critical care ill/in jured patient init 30-74 min Charlie Johnson MD Work Phone: [facility] Start: 05-30-2022 End: 06-04-2022 Evaluation and management of inpatient Charlie Johnson MD Work Phone: [facility] Start: 05-13-2022 End: 05-14-2022 Emergency department patient visit [facility] Start: 05-13-2022 End: 05-13-2022 Emergency department patient visit Jayant Trimble MD Work Phone: [facility] Emergency Department Start: 05-07-2022 End: 05-09-2022 ambulatory [facility] Facility:[facility] Start: 04-25-2022 Non-patient / Non-visit No Sona amezcua Care Physician [facility] Start: 04-24-2022 Non-patient / Non-visit No Sona seven Care Physician [facility] Start: 04-23-2022 Non-patient / Non-visit No Sona amezcua Care Physician [facility] Start: 04-22-2022 Non-patient / Non-visit No Sona seven Care Physician [facility] Start: 04-21-2022 Non-patient / Non-visit No Sona seven Care Physician [facility] Start: 04-21-2022 End: 04-26-2022 Evaluation and management of inpatient [facility] 3 Start: 12-23-2021 End: 12-24-2021 Emergency department patient visit NILA HAIR [facility] Start: 10-22-2021 End: 10-22-2021 [facility] Start: 10-20-2021 ambulatory SUSAN CA Facili ty:[facility] Start: 10-07-2021 End: 10-07-2021 ambulatory SUSAN CA [facility] Start: 10-07-2021 End: 10-07-2021 Subsequent hospital visit by physician Susan Ca MD Work Phone: [facility]patient [facility] Comment on above: Carpal tunnel syndro me, left Start: 10-05-2021 Telephone encounter [facility] Care Coord[facility] Start: 10-01-2021 ambulatory MINERVA GRIER Facilit y:[facility] Start: 09-30-2021 Orders Only Marc boggs MD Work Phone: [facility] Comment on above: Opiate use (Primary Dx) Start: 09-27-2021 End: 09-30-2021 Evaluation and management of inpatient [facility] Start: 09-26-2021 End: 09-30-2021 Evaluation and management of inpatient Drake Sandoval MD Work Phone: [facility] Start: 09-07-2021 ambulatory MINERVA GRIER Facilit y:[facility] Start: 09-02-2021 ambulatory MINERVA GRIER Facilit y:[facility] Start: 09-02-2021 End: 09-02-2021 Postop follow up visit related to original px Jaleel Cm PA-C Work Phone: [facility] Comment on above: S/P carpal tunnel re lease (Primary Dx); Carpal tunnel syndrome, left Start: 08-19-2021 End: 08-19-2021 ambulatory SUSAN CA [facility] Start: 08-19-2021 End: 08-19-2021 Subsequent hospital visit by physician Susan Ca MD Work Phone: Outpatient Surgery [facility] Comment on above: Bilateral carpal brandon serenity syndrome Start: 08-17-2021 ambulatory MINERVA GRIER Facilit y:[facility] Start: 08-13-2021 ambulatory SELF SELF Facility[facility] Start: 07-25-2021 End: 07-29-2021 ambulatory SOCO PAIGE [facility] Start: 07-22-2021 Orders Only Marc boggs MD Work Phone: [facility] Comment on above: Hyperemesis (Primary Dx); Opiate use Start: 07-20-2021 End: 07-20-2021 Emergency department patient visit PHYSICIAN [facility] Start: 07-03-2021 ambulatory MINERVA GRIER Facilit y:[facility] Start: 06-30-2021 ambulatory MINERVA Flaquita MARVEL Facilit y:[facility] Start: 12-03-2019 End: 12-04-2019 Emergency department patient visit Charlie Johnson Work Phone: [facility] Comment on above: Intractable nausea a nd vomiting (Primary Dx) Start: 11-17-2019 End: 11-18-2019 Emergency department patient visit Jaquan Owusu Work Phone: [facility] Comment on above: Viral gastroenteriti s (Primary Dx) Start: 09-26-2018 End: 09-26-2018 Emergency department patient visit Minerva Grier [facility] Emergency Department Start: 06-01-2018 End: 06-05-2018 Patient encounter procedure YAN MARTIN [facility] Start: 06-01-2018 End: 06-01-2018 Patient encounter procedure Yan Martin Barbara Work Phone: [facility] Comment on above: Acute right ankle pa in Start: 05-16-2018 End: 05-20-2018 Patient encounter procedure YAN MARIO [facility] Start: 05-16-2018 End: 05-16-2018 Patient encounter procedure Yan Mario Jimenez Work Phone: [facility] Comment on above: Acute right ankle pa in Start: 05-11-2018 End: 05-15-2018 Patient encounter procedure YAN MARTIN [facility] Start: 05-11-2018 End: 05-11-2018 Patient encounter procedure Yan Jimenez [facility] Phone[facility] Comment on above: Acute right ankle pa in Start: 05-01-2018 End: 05-05-2018 Patient encounter procedure JOSE SOMERS [facility] Start: 04-26-2018 End: 04-30-2018 [facility] Start: 04-26-2018 End: 04-26-2018 Patient encounter procedure Yan Iniguezmaryjo Work Phone: [facility] Comment on above: Acute right ankle pa in Start: 04-24-2018 End: 04-28-2018 Patient encounter procedure YAN MARIO [facility] Start: 04-17-2018 End: 04-21-2018 Patient encounter procedure YAN MARTIN [facility] Start: 04-17-2018 End: 04-17-2018 Patient encounter Yan Iniguezmaryjo Work Phone: [facility] Comment on above: Acute right ankle pa in Start: 04-10-2018 End: 04-14-2018 Patient encounter procedure YAN MARTIN [facility] Start: 04-06-2018 End: 04-10-2018 Patient encounter procedure YAN MARTIN [facility] Start: 04-03-2018 End: 04-07-2018 [facility] Start: 03-27-2018 End: 03-31-2018 Patient encounter procedure YAN MARTIN [facility] Start: 03-27-2018 End: 03-27-2018 Patient encounter Yan Henleykelton Work Phone: [facility] Comment on above: Bilateral ankle pain , unspecified chronicity Start: 03-20-2018 End: 03-24-2018 Patient encounter procedure YAN MARIO [facility] Start: 03-13-2018 End: 03-17-2018 Patient encounter procedure YAN MARTIN [facility] Start: 03-06-2018 End: 03-10-2018 Patient encounter procedure YAN MARTIN [facility] Start: 02-20-2018 End: 02-20-2018 Patient encounter YAN JIMENEZ [facility] Start: 02-20-2018 End: 02-20-2018 Office outpatient new 30 minutes Yan Iniguezmaryjo Work Phone: [facility] Comment on above: Achilles tendinitis of both lower extremities (Primary Dx); Gastrocnemius equinus, unspecified laterality Procedures Date Procedure Procedure Detail Performing Clinician Start: 11-28-2024 End: 11-28-2024 Psychotherapy w/patient 45 minutes Opioid use disorder, severe (CMS & HHS-HCC) Nancy Bolden [facility] Work Phone: Start: 11-26-2024 RFLX-INTERPRETATION Terell Elizabeth MD Work Phone: Start: 11-26-2024 CHLAMYDIA, GONORRHOE AE, AND TRICHOMONAS VAGINALIS, KATLYN Allan Elizabeth MD Work Phone: Start: 11-26-2024 Comprehensive metabolic panel Allan Elizabeth MD Work Phone: Start: 11-26-2024 Iaad ia hiv-1 ag w/h iv-1 & hiv-2 antbdy single Allan Elizabeth MD Work Phone: Start: 11-26-2024 End: 11-26-2024 Lipid panel Allan Elizabeth MD Work Phone: Start: 11-26-2024 VIRAL HEPATITIS SCRE ENING AND DIAGNOSIS (HAV, HBV, HCV) Allan Elizabeth MD Work Phone: Start: 11-26-2024 TOXASSURE FLEX 23, UR W/DL Allan Elizabeth MD Work Phone: Start: 11-16-2024 End: 11-16-2024 Psychiatric diagnostic evaluation Opioid use disorder, severe (HCC-CMS) Chloe Vizcaino [facility] Work Phone: Comment on above: Opioid use disorder, severe (HCC-CMS) (Primary Dx) Start: 11-12-2024 TOXASSURE FLEX 23, UR W/DL Allan Elizabeth MD Work Phone: Start: 11-12-2024 Drug screening gabap entin non-blood Allan Elizabeth MD Work Phone: Start: 08-13-2024 Glucose quantitative blood xcpt reagent strip Edgar Powers MD Work Phone: Start: 08-13-2024 Radiologic exam ches t single view Ole Conway MD Work Phone: Start: 08-13-2024 Drug tst prsmv instr mnt chem analyzers pr date Edgar Powers MD Work Phone: Start: 08-13-2024 Urnls dip stick/tabl et reagent auto microscopy Edgar Powers MD Work Phone: Start: 08-13-2024 Comprehensive metabolic panel Edgar Powers MD Work Phone: Start: 08-13-2024 Drug test def 1-7 classes Edgar Powers MD Work Phone: Start: 08-13-2024 SARS-CoV-2 (COVID-19 ) Ag [Presence] in Respiratory specimen by Rapid immunoassay Edgar Powers MD Work Phone: Start: 08-13-2024 Ecg routine ecg w/le ast 12 lds trcg only w/o i&r Edgar Powers MD Work Phone: Start: 04-11-2024 Basic metabolic pane l calcium total James Neil MD Work Phone: Start: 04-11-2024 Ecg routine ecg w/le ast 12 lds trcg only w/o i&r James Neil MD Work Phone: Start: 11-08-2023 Ecg routine ecg w/le ast 12 lds trcg only w/o i&r Carmelo Dorado DO Work Phone: Start: 11-08-2023 Ecg routine ecg w/le ast 12 lds trcg only w/o i&r Karuna Mayfield ENTREPRENEURSHIP PROGRAM DIRECTOR - [employer] Work Phone: Start: 11-08-2023 Ct abdomen & pelvis w/contrast material Marc Lainez DO Work Phone: Start: 11-07-2023 Drug screening fentanyl Bill Trimble ENTREPRENEURSHIP PROGRAM DIRECTOR - [facility] Work Phone: Start: 11-07-2023 Urnls dip stick/tabl et reagent auto microscopy Bill Trimble ENTREPRENEURSHIP PROGRAM DIRECTOR - [facility] Work Phone: Start: 11-07-2023 Basic metabolic pane l calcium total Bill Trimble ENTREPRENEURSHIP PROGRAM DIRECTOR - [facility] Work Phone: Start: 11-07-2023 Drug test def 1-7 classes Bill Trimble ENTREPRENEURSHIP PROGRAM DIRECTOR [employer] [facility] Work Phone: Start: 11-07-2023 SARS-CoV-2 (COVID-19 ) Ag [Presence] in Respiratory specimen by Rapid immunoassay Bill Trimble ENTREPRENEURSHIP PROGRAM DIRECTOR [employer] [facility] Work Phone: Start: 10-27-2023 Basic metabolic pane l calcium total Berna Rodríguez ENTREPRENEURSHIP PROGRAM DIRECTOR - [facility] Work Phone: Start: 10-26-2023 Basic metabolic pane l calcium total Berna Marcos ENTREPRENEURSHIP PROGRAM DIRECTOR [facility] Work Phone: Start: 10-25-2023 Drug test def 1-7 classes Bernamarilou Negrons ENTREPRENEURSHIP PROGRAM DIRECTOR - [facility] Work Phone: Start: 10-25-2023 Urinalysis complete panel - Urine Berna Rodríguez [facility] Work Phone: Start: 10-25-2023 Urnls dip stick/tabl et reagent auto microscopy Berna Rodríguez ENTREPRENEURSHIP PROGRAM DIRECTOR - [facility] Work Phone: Start: 10-25-2023 Ecg routine ecg w/le ast 12 lds trcg only w/o i&r Ángela Torres ENTREPRENEURSHIP PROGRAM DIRECTOR [employer] [facility] Work Phone: Start: 10-25-2023 Basic metabolic pane l calcium total Ángela Torres ENTREPRENEURSHIP PROGRAM DIRECTOR [employer] [facility] Work Phone: Start: 10-25-2023 Ct abdomen & pelvis w/contrast material Ángela Torres ENTREPRENEURSHIP PROGRAM DIRECTOR [employer] [facility] Work Phone: Start: 10-25-2023 Comprehensive metabolic panel Ángela Hernandezner ENTREPRENEURSHIP PROGRAM DIRECTOR - [facility] Work Phone: Start: 09-26-2023 Glucose post glucose dose Radha Batista ENTREPRENEURSHIP PROGRAM DIRECTOR - OFFICE NURSE PRACTITIONER Work Phone: Start: 08-22-2023 Radex hand minimum 3 views León Gilmore MD Work Phone: Start: 06-07-2023 Radiologic exam ches t single view Chris Jaimie Villalobos ENTREPRENEURSHIP PROGRAM DIRECTOR - [facility] Work Phone: Start: 06-07-2023 Drug tst prsmv instr mnt chem analyzers pr date Bill Trimble ENTREPRENEURSHIP PROGRAM DIRECTOR - [facility] Work Phone: Start: 06-07-2023 Urinalysis complete panel - Urine Chris Joinermark ENTREPRENEURSHIP PROGRAM DIRECTOR [facility] Work Phone: Start: 06-07-2023 Urnls dip stick/tabl et reagent auto microscopy Chris Villalobos ENTREPRENEURSHIP PROGRAM DIRECTOR [facility] Work Phone: Start: 06-06-2023 Ct abdomen & pelvis w/contrast material Chris Etienne Blanca ENTREPRENEURSHIP PROGRAM DIRECTOR - [facility] Work Phone: Start: 06-06-2023 Comprehensive metabolic panel James Neil MD Work Phone: Start: 06-06-2023 SARS-COV-2, FLU A/B, AND RSV COMBO James Neil MD Work Phone: Start: 06-06-2023 Ecg routine ecg w/le ast 12 lds i&r only James Neil MD Work Phone: Start: 05-28-2023 Ecg routine ecg w/le ast 12 lds trcg only w/o i&r Fabiola Knox DO Work Phone: Start: 05-28-2023 Ct head/brain w/o co ntrast material Fabiola Knox DO Work Phone: Start: 05-28-2023 Radiologic exam ches t single view Fabiola Knox DO Work Phone: Start: 05-27-2023 End: 05-28-2023 Comprehensive metabolic panel Fabiola Mo ore DO Work Phone: Start: 05-28-2023 End: 05-28-2023 Drug screen analgesics non-opioid 1 or 2 Fabiola Knox DO Work Phone: Start: 03-08-2023 Incision thrombosed hemorrhoid external Alex Santiago MD Work Phone: Start: 02-23-2023 PB ED PLACEHOLDER Alex Santiago MD Work Phone: Start: 02-23-2023 Radex hand minimum 3 views Alex Santiago MD Work Phone: Start: 06-03-2022 Basic metabolic pane l calcium total Taz Cuellar MD Work Phone: Start: 06-02-2022 Potassium serum plas ma/whole blood Taz Cuellar MD Work Phone: Start: 06-02-2022 Drug tst prsmv instr mnt chem analyzers pr date Marc Juan MD Work Phone: Start: 06-02-2022 C-reactive protein Rafael los Juan MD Work Phone: Start: 06-02-2022 Comprehensive metabolic panel Marc Juan MD Work Phone: Start: 06-01-2022 Electroencephalogram w/rec awake&drowsy Hal Clarke MD Work Phone: Start: 06-01-2022 Cyanocobalamin vitamin b-12 Marc Juan MD Work Phone: Start: 06-01-2022 Ct head/brain w/o co ntrast material González Hearn MD Work Phone: Start: 06-01-2022 Gases blood ph direc t kirsty xcpt pulse oximitry Generic [facility] Work Phone: Start: 06-01-2022 OBTAIN ARTERIAL BLOO D GASES AND PERFORM González Hearn MD Work Phone: Start: 06-01-2022 Glucose measurement Gen slava [facility] Work Phone: Start: 06-01-2022 Ecg routine ecg w/le ast 12 lds trcg only w/o i&r Marc Juan MD Work Phone: Start: 06-01-2022 Gases blood ph direc t kirsty xcpt pulse oximitry Generic [facility] Work Phone: Start: 06-01-2022 Assay of lactate Bernabe B . Gambrel PA-C Work Phone: Start: 06-01-2022 OBTAIN ARTERIAL BLOO D GASES AND PERFORM Bernabe B. Gambrel PA-C Work Phone: Start: 05-31-2022 Drug tst prsmv instr mnt chem analyzers pr date Charlie Johnson MD Work Phone: Start: 05-31-2022 Urnls dip stick/tabl et reagent auto microscopy Charlie Johnson MD Work Phone: Start: 05-31-2022 Antibody hiv-1&hiv-2 single result Marc Juan MD Work Phone: Start: 05-31-2022 Basic metabolic pane l calcium total Bernabe B. Gambrel PA-C Work Phone: Start: 05-31-2022 Electrocardiogram Boaz Johnson MD Work Phone: Start: 05-30-2022 Ct angiography chest w/contrast/noncontrast Charlie Johnson MD Work Phone: Start: 05-30-2022 Ct head/brain w/o co ntrast material Charlie Johnson MD Work Phone: Start: 05-30-2022 Ecg routine ecg w/le ast 12 lds w/i&r Charlie Johnson MD Work Phone: Start: 05-30-2022 Influenza virus A an d B RNA and SARS-CoV-2 (COVID-19) N gene panel - Respiratory specimen by KATLYN with probe detection Charlie Johnson MD Work Phone: Start: 05-30-2022 Ecg routine ecg w/le ast 12 lds w/i&r Charlie Johnson MD Work Phone: Start: 05-30-2022 Radiologic exam ches t single view Charlie Johnson MD Work Phone: Start: 05-30-2022 Comprehensive metabolic panel Charlie Johnson MD Work Phone: Start: 05-30-2022 Hepatic function panel Charlie Johnson MD Work Phone: Start: 05-13-2022 Radiologic exam ches t single view Jayant Trimble MD Work Phone: Start: 05-13-2022 Iadna nos amplified probe tq each organism Jayant Trimble MD Work Phone: Start: 05-13-2022 Quantitative PCR analysis Jayant Trimble MD Work Phone: Start: 04-24-2022 Plain chest X-ray No Pr imary Care Physician Start: 04-22-2022 Plain chest X-ray No Pr imary Care Physician Start: 04-22-2022 CT of head without contrast No Primary Care Physician Start: 10-07-2021 End: 10-07-2021 Neuroplasty &/transpos median nrv carpal tunne Susan Ca MD Work Phone: Start: 09-30-2021 Basic metabolic pane l calcium total Kathie L Evelio [employer] MECH[employer]IC Work Phone: Start: 09-29-2021 Ecg routine ecg w/le ast 12 lds trcg only w/o i&r Conrado Yancey MD Work Phone: Start: 09-28-2021 Ecg routine ecg w/le ast 12 lds trcg only w/o i&r Conrado Yancey MD Work Phone: Start: 09-28-2021 Iadna-dna/rna gi pth gn multiplex probe tq 12-25 Carol Segovia [employer] MECH[employer]IC Work Phone: Start: 09-28-2021 Comprehensive metabolic panel Carol Segovia [employer] Work Phone: Start: 09-27-2021 End: 09-27-2021 Culture bacterial blood aerobic w/id isolates Jacinto Hale MD Work Phone: Start: 09-27-2021 Drug tst prsmv instr mnt chem analyzers pr date Vanessa Brewster [employer]IC Work Phone: Start: 09-27-2021 Urnls dip stick/tabl et reagent auto microscopy Drake Sandoval MD Work Phone: Start: 09-27-2021 Electrocardiogram Provi helene Not In System Start: 09-27-2021 Adult depression scr eening assessment Marc Juan MD Work Phone: Start: 09-27-2021 Ct abdomen & pelvis w/contrast material Drake Sandoval MD Work Phone: Start: 09-27-2021 End: 09-27-2021 Ct head/brain w/o contrast material Drake Sandoval MD Work Phone: Start: 09-27-2021 Gases blood ph direc t kirsty xcpt pulse oximitry Drake Sandoval MD Work Phone: Start: 09-27-2021 OBTAIN VENOUS BLOOD GASES AND PERFORM Drake Sandoval MD Work Phone: Start: 09-27-2021 SARS-CoV-2 (COVID-19 ) RNA [Presence] in Respiratory specimen by KATLYN with probe detection Drake Sandoval MD Work Phone: Start: 09-27-2021 Ecg routine ecg w/le ast 12 lds w/i&r Drake Sandoval MD Work Phone: Start: 09-26-2021 Blood ethanol measurement Vanessa Brewster [employer] Work Phone: Start: 09-26-2021 Comprehensive metabolic panel Vanessa Brewster [employer] MECHANIC Work Phone: Start: 09-26-2021 CASANOVA TOP Drake Sandoval MD Work Phone: Start: 09-26-2021 Hepatic function panel Drake Sandoval MD Work Phone: Start: 09-26-2021 LAVENDER TOP Drake Sandoval MD Work Phone: Start: 09-26-2021 LIGHT BLUE TOP Drake Manzano MD Work Phone: Start: 09-26-2021 MINT GREEN TOP Drake Manzano MD Work Phone: Start: 09-26-2021 RAINBOW DRAW Drake Sandoval MD Work Phone: Start: 06-26-2021 Adult depression scr eening assessment Marc Juan MD Work Phone: Start: 12-04-2019 Basic metabolic 2000 panel - Serum or Plasma Sebas Guerrero Work Phone: Start: 12-04-2019 Complete blood count with white cell differential, automated Taz Cuellar Work Phone: Start: 12-04-2019 Complete blood count with white cell differential, manual Taz Cuellar Work Phone: Start: 12-04-2019 Magnesium [Mass/volu me] in Serum or Plasma Taz Cuellar Work Phone: Start: 12-03-2019 Bacteria identified in Blood by Culture [employer] Work Phone: Start: 12-03-2019 Drugs of abuse urine screening test Charlie Wu Work Phone: Start: 12-03-2019 Urinalysis Charlie Wu Work Phone: Start: 12-03-2019 Ct abdomen & pelvis w/contrast material Charlie Johnson Work Phone: Start: 12-03-2019 Complete blood count with white cell differential, automated Charlie Johnson Work Phone: Start: 12-03-2019 Complete blood count with white cell differential, manual Charlie Johnson Work Phone: Start: 12-03-2019 Comprehensive metabo lic 1999 panel - Serum or Plasma Charlie Johnson Work Phone: Start: 12-03-2019 COVID-19, MOLECULAR Amb fernando Johnson Work Phone: Start: 12-03-2019 Ethanol [Mass/volume ] in Serum or Plasma Chalrie Johnson Work Phone: Start: 12-03-2019 CASANOVA TOP Charlie Johnson Work Phone: Start: 12-03-2019 LIGHT BLUE TOP Charlie Johnson Work Phone: Start: 12-03-2019 Lipase [Enzymatic activity/volume] in Serum or Plasma Charlie Johnson Work Phone: Start: 12-03-2019 RAINBOW DRAW Charlie Johnson Work Phone: Start: 11-18-2019 Ct abdomen & pelvis w/contrast material Natasha Luciano Work Phone: Start: 11-17-2019 Complete blood count with white cell differential, automated Natasha Arthur. Mustapha Work Phone: Start: 11-17-2019 Complete blood count with white cell differential, manual Natasha Luciano Work Phone: Start: 11-17-2019 Comprehensive metabo lic 1999 panel - Serum or Plasma Natasha Luciano Work Phone: Start: 11-17-2019 INR in Platelet poor plasma by Coagulation assay Natasha Luciano Work Phone: Start: 11-17-2019 Lipase [Enzymatic activity/volume] in Serum or Plasma Natashacalin Luciano Work Phone: Start: 11-17-2019 COVID-19, MOLECULAR Cecilia tre Owusu Work Phone: Start: 09-26-2018 Radiography of hand Pao sveta Grider Work Phone: History of decompres yomi of median nerve S/P carpal tunnel release Jaleel Cm PA-C Work Phone: Influenza Types A,B Direct FA (CECILIA) No Primary Care Physician Measurement of occul t blood in gastric fluid specimen No Primary Care Physician Urine culture No Primary Car e Physician Urine culture No Primary Car e Physician Plan of Treatment Date Care Activity Detail Author Start: 2060 RSV Immunization for Adults (1 - 1-dose 75+ series) RSV Immunization for Adults (1 - 1-dose 75+ series) [facility] Start: 2045 RSV Immunization age d 60 or older (1 - 1-dose 60+ series) RSV Immunization aged 60 or older (1 - 1-dose 60+ series) [facility] Start: 2035 Zoster Vaccines (1 of 2) Zoste r Vaccines (1 of 2) [facility] Start: 02-23-2033 DTaP/Tdap/Td Vaccine s (2 - Td or Tdap) DTaP/Tdap/Td Vaccines (2 - Td or Tdap) [facility] Start: 02-23-2033 Tetanus vaccination Imm-DTaP/T dap/Td (2 - Td or Tdap) [facility] Start: 02-23-2033 Urine microalbumin profile DTaP,Tdap,Td Vaccine (2 - Td or Tdap) [facility] Start: 11-27-2027 Diabetes mellitus screening Diabetes Screening [facility] Start: 11-26-2027 Hypertension screening Hyperte nsion Screening (#1) [facility] Start: 11-12-2027 Hypertension screening Hyperte nsion Screening (#1) [facility] Start: 10-31-2027 Hypertension screening Hyperte nsion Screening (#1) [facility] Start: 08-14-2027 Diabetes mellitus screening Diabetes Screening [facility] Start: 11-16-2025 Anxiety Screening Anxiety Screening [facility] Start: 11-16-2025 Tobacco use cessatio n education Tobacco Cessation Counseling (#1) [facility] Start: 10-31-2025 Tobacco Screening Tobacco Screening [facility] Start: 01-28-2025 Influenza vaccination C [facility] Start: 11-27-2024 End: 02-13-2025 CHLAMYDIA, GONORRHOEAE, AND TRICHOMONAS VAGINALIS, KATLYN Urine Urine Routine CHLAMYDIA, GONORRHOEAE, AND TRICHOMONAS VAGINALIS, KATLYN Urine Urine Routine Lab Routine Opioid use disorder, severe, in early remission ([facility]) Expected: 11/27/2024 (Approximate), Expires: 02/13/2025 [employer] Work Phone: Comment on above: Expected: 11/27/2024 (Approximate), Expires: 02/13/2025 Start: 11-27-2024 End: 02-13-2025 Comprehensive metabolic panel COMPREHENSIVE METABOLIC PANEL Routine Lab Routine Opioid use disorder, severe, in early remission ([facility]) Expected: 11/27/2024 (Approximate), Expires: 02/13/2025 [employer] Work Phone: Comment on above: Expected: 11/27/2024 (Approximate), Expires: 02/13/2025 Start: 11-27-2024 End: 02-13-2025 Hemoglobin glycosylated a1c HEMOGLOBIN GLYCOSYLATED A1C Routine Lab Routine Opioid use disorder, severe, in early remission ([facility]) Expected: 11/27/2024 (Approximate), Expires: 02/13/2025 [employer] Work Phone: Comment on above: Expected: 11/27/2024 (Approximate), Expires: 02/13/2025 Start: 11-27-2024 End: 02-13-2025 Iaad ia hiv-1 ag w/hiv-1 & hiv-2 antbdy single HIV 1/0/2 AG/AB W/CASCADE RFLX SUPPLEMENTAL TESTING Routine Lab Routine Opioid use disorder, severe, in early remission ([facility]) Expected: 11/27/2024 (Approximate), Expires: 02/13/2025 [employer] Work Phone: Comment on above: Expected: 11/27/2024 (Approximate), Expires: 02/13/2025 Start: 11-27-2024 End: 02-13-2025 Lipid panel LIPID PANEL Routine Lab Routine Opioid use disorder, severe, in early remission ([facility]) Expected: 11/27/2024 (Approximate), Expires: 02/13/2025 [employer] Work Phone: Comment on above: Expected: 11/27/2024 (Approximate), Expires: 02/13/2025 Start: 11-27-2024 End: 02-13-2025 Syphilis test non-treponemal antibody qual RPR (MONITOR) W/REFL TITER Routine Lab Routine Opioid use disorder, severe, in early remission ([facility]) Expected: 11/27/2024 (Approximate), Expires: 02/13/2025 [employer] Work Phone: Comment on above: Expected: 11/27/2024 (Approximate), Expires: 02/13/2025 Start: 11-27-2024 End: 02-13-2025 VIRAL HEPATITIS SCREENING AND DIAGNOSIS (HAV, HBV, HCV) Routine VIRAL HEPATITIS SCREENING AND DIAGNOSIS (HAV, HBV, HCV) Routine Lab Routine Opioid use disorder, severe, in early remission ([facility]) Expected: 11/27/2024 (Approximate), Expires: 02/13/2025 [employer] Work Phone: Comment on above: Expected: 11/27/2024 (Approximate), Expires: 02/13/2025 Start: 09-03-2024 [facility] Start: 09-03-2024 Suicide precautions [facility] Start: 09-01-2024 End: 09-01-2024 [facility] Start: 05-30-2024 Depression screening Depressio n Annual Screen [facility] Start: 05-30-2024 Screening for substa nce abuse Alcohol and Drug Screen [facility] Start: 01-29-2024 COVID-19 Vaccine ( season) COVID-19 Vaccine ( season) [facility] Start: 01-29-2024 [id number] () [id number] () [facility] Start: 01-29-2024 Influenza vaccination C [facility] Start: 11-02-2023 End: 11-02-2023 Patient encounter procedure 11/02/2023 10:30 AM EDT Office Visit [facility] [address], [place] [id number] John Andrews MD [address] [place] [address] [facility] Start: 05-30-2023 Depression Assessment Depression Ass essment [facility] Start: 01-28-2023 COVID-19 Vaccine ( season) COVID-19 Vaccine () [facility] Start: 01-28-2023 Influenza vaccination Influenza Vacc ine (#1) [facility] Start: 09-27-2022 Depression screening using PHQ-9 (Patient Health Questionnaire 9) score Depression Screening (PHQ-2/9) [facility] Start: 06-26-2022 Depression screening using PHQ-9 (Patient Health Questionnaire 9) score Depression Screening (PHQ-2/9) [facility] Start: 06-09-2022 End: 06-09-2022 Patient encounter procedure 06/09/2022 Office Visit Primary Care Soco Paige, [employer] MECHANIC [address] [place] [address] [facility] Start: 04-26-2022 [facility] Work [facility]: Start: 04-23-2022 Assessment using assessment scale [facility] Work Phone: Start: 04-23-2022 [facility] Work Phone: Start: 04-23-2022 End: 04-23-2022 Assessment using assessment scale [facility] Work Phone: Start: 04-23-2022 End: 04-23-2022 [facility] Work Phone: Start: 04-23-2022 End: 04-23-2022 Assessment using assessment scale [facility] Work Phone: Start: 04-23-2022 End: 04-23-2022 [facility] Work Phone: Start: 04-23-2022 Assessment using assessment scale [facility] Work Phone: Start: 04-23-2022 [facility] Work Phone: Start: 04-23-2022 Assessment using assessment scale [facility] Work Phone: Start: 04-23-2022 End: 04-23-2022 [facility] Work Phone: Start: 04-23-2022 Assessment using assessment scale [facility] Work Phone: Start: 04-23-2022 [facility] Work Phone: Start: 04-23-2022 Assessment using assessment scale [facility] Work Phone: Start: 04-23-2022 [facility] Work Phone: Start: 04-22-2022 [facility] Work Phone: Start: 04-22-2022 End: 04-22-2022 Blood culture [facility] Work Phone: Start: 04-22-2022 End: 04-22-2022 Assessment using assessment scale [facility] Work Phone: Start: 04-22-2022 End: 04-22-2022 [facility] Work Phone: Start: 04-22-2022 Assessment using assessment scale [facility] Work Phone: Start: 04-22-2022 [facility] Work Phone: Start: 04-21-2022 End: 04-22-2022 [facility] Work Phone: Start: 04-21-2022 Assessment of risk o f venous thromboembolism [facility] Work Phone: Start: 04-21-2022 Notification of physician [facility] Work Phone: Start: 04-21-2022 Vital signs measurements [facility] Work Phone: Start: 04-21-2022 Following clinical pathway protocol [facility] Work Phone: Start: 04-21-2022 Admission procedure [facility] Work Phone: Start: 04-21-2022 Patient referral to dietitian [facility] Work Phone: Start: 01-28-2022 Influenza vaccination O [facility] Start: 10-20-2021 End: 10-20-2021 Patient encounter procedure 10/20/2021 Office Visit Orthopaedics Susan Ca MD [address] [facility] [address] [place] [address] [facility] Start: 10-13-2021 End: 10-13-2021 Patient encounter procedure 10/13/2021 Office Visit Orthopaedics Jaleel Cm PA-C [address] [facility] [address] [place] [address] [facility] Start: 09-28-2021 End: 09-28-2021 Admission to same day surgery center 09/28/2021 Surgery Multispecialty Susan Ca MD [address] [facility] [address] [place] [address] DECOMPRESSION TRANSPOSITION MEDIAN NERVE Outpatient Surgery [facility] Comment on above: DECOMPRESSION TRANSP OSITION MEDIAN NERVE Start: 09-28-2021 End: 09-28-2021 Neuroplasty &/transpos median nrv carpal tunne DECOMPRESSION TRANSPOSITION MEDIAN NERVE Carpal tunnel syndrome, left 09/28/2021 9:55 AM EDT [facility] Start: 09-28-2021 Subsequent hospital visit by physician 09/28/2021 Hospital Encounter Multispecialty Susan Ca MD [address] [facility] [address] [place] [address] Carpal tunnel syndrome, left Outpatient Surgery [facility] Comment on above: Carpal tunnel syndro me, left Start: 09-07-2021 End: 09-07-2021 ambulatory 09/07/2021 Telemed Clin Support Multispecialty Pre-Procedure Preparation [facility] Start: 09-02-2021 End: 09-02-2021 Patient encounter procedure 09/02/2021 Office Visit Orthopaedics Jaleel Cm PA-C [address] [place] [address] [facility] Start: 08-19-2021 End: 07-22-2022 Drugs of abuse urine screening test Drugs of Abuse Screen, Urine Lab Routine Hyperemesis Opiate use Expected: 08/19/2021, Expires: 07/22/2022 [facility] Comment on above: Expected: 08/19/2021 , Expires: 07/22/2022 Start: 08-19-2021 End: 08-19-2021 Neuroplasty &/transpos median nrv carpal tunne DECOMPRESSION TRANSPOSITION MEDIAN NERVE Bilateral carpal tunnel syndrome 08/19/2021 12:43 PM EDT [facility] Start: 01-28-2021 Influenza vaccination [facility] Start: 2020 Lipid panel Lipid Screening [facility] Start: 01-29-2020 Influenza vaccinatio n given [facility] Start: 01-28-2019 Influenza vaccination INFLUENZ A VACCINE (Season Ended) [facility] Start: 06-22-2018 End: 06-22-2018 Ambulatory 06/22/2018 Treatment Rehabilitation Yan Jimenez DPM [address] [place] [address] [phone] Jose Candelario PTA [facility] Start: 06-15-2018 End: 06-15-2018 Ambulatory 06/15/2018 Treatment Rehabilitation Yan Jimenez DPM [address] [place] [address] [phone] Jose Candelario, [facility] Start: 06-08-2018 End: 06-08-2018 Ambulatory 06/08/2018 Treatment Rehabilitation Yan Jimenez, BETTY [address] [place] [address] [phone] Giuliano Chacko, [facility] Start: 06-01-2018 End: 06-01-2018 Ambulatory 06/01/2018 Treatment Rehabilitation Natasha Crowder, [facility] Start: 05-25-2018 End: 05-25-2018 Ambulatory 05/25/2018 Treatment Rehabilitation Jose Candelario, [facility] Start: 05-24-2018 End: 05-24-2018 Ambulatory 05/24/2018 Treatment Rehabilitation Jose Candelario, [facility] Start: 05-18-2018 End: 05-18-2018 Ambulatory [facility] Start: 05-16-2018 End: 05-16-2018 Ambulatory 05/16/2018 Treatment Rehabilitation Kenyon Briceno, [facility] Start: 05-08-2018 End: 05-08-2018 Ambulatory 05/08/2018 Treatment Rehabilitation Natasha Crowder, [facility] Start: 05-01-2018 End: 05-01-2018 Ambulatory [facility] Start: 04-26-2018 End: 04-26-2018 Ambulatory 04/26/2018 Treatment Rehabilitation Yan Jimenez, [place] [address] Jose Candelario, [facility] Start: 04-24-2018 End: 04-24-2018 Ambulatory 04/24/2018 Treatment Rehabilitation Yan Jimenez DPM [facility] [place] [address] [address] [phone] Sol Cunha, [facility] Start: 04-06-2018 End: 04-06-2018 Ambulatory 04/06/2018 Treatment Rehabilitation Yan Jimenez, DPM [address] [place] [address] [phone] Jose Candelario, [facility] Start: 04-03-2018 End: 04-03-2018 Ambulatory 04/03/2018 Treatment Rehabilitation BarbaraYan, DPM [address] [place] [address] [phone] Sol Cunha, [facility] Start: 03-30-2018 End: 03-30-2018 Ambulatory 03/30/2018 Treatment Rehabilitation Yan Jimenez Mario, BETTY [address] [place] [address] [phone] Jose Candelario, [facility] Start: 01-28-2018 Influenza vaccination SEQUENTI AL INFLUENZA VACCINE (#1) [facility] Start: 11-15-2013 Hepatitis A Vaccines (2 of 2 - Risk 2-dose series) Hepatitis A Vaccines (2 of 2 - Risk 2-dose series) [facility] Start: 2004 Imm-Pneumococcal (1 of 2 - PCV) Imm-Pneumococcal (1 of 2 - PCV) [facility] Start: 2004 Pneumococcal Vaccine : Pediatrics (0 to 5 Years) and At-Risk Patients (6 to 49 Years) (1 of 2 - PCV) Pneumococcal Vaccine: Pediatrics (0 to 5 Years) and At-Risk Patients (6 to 49 Years) (1 of 2 - PCV) [facility] Start: 2004 Third diphtheria, te tanus and acellular pertussis (DTaP) vaccination TDAP (ADULT) [facility] Start: 2003 Hepatitis C antibody , confirmatory test Hepatitis C Screening [facility] Start: 2003 Hepatitis C screening Hepatitis C Sc reening [facility] Start: 2003 HIV screening HIV Screening [facility] Start: 2003 Tetanus vaccination TETANUS [facility] Start: 2000 HIV screening [facility] Start: 1998 HIV screening HIV SCREENING [facility] Start: 1998 Varicella vaccination Varicell a Vaccines (1 of 2 - 13+ 2-dose series) [facility] Start: 1997 Depression Monitoring Depression Mon blanquita [facility] Start: 1997 Depression Screening Depression Scre enfavian [facility] Start: 1991 PNEUMOCOCCAL VACCINE SERIES (1 - PCV) PNEUMOCOCCAL VACCINE SERIES (1 - PCV) [facility] Start: 1991 PNEUMOCOCCAL VACCINE SERIES (1 of 2 - PPSV23) PNEUMOCOCCAL VACCINE SERIES (1 of 2 - PPSV23) [facility] Start: 1991 Pneumococcal Vaccine : Ped or At-Risk (1 - PCV) Pneumococcal Vaccine: Ped or At-Risk (1 - PCV) [facility] Start: 1991 Pneumococcal Vaccine : Ped or At-Risk (1 of 2 - PPSV23) Pneumococcal Vaccine: Ped or At-Risk (1 of 2 - PPSV23) [facility] Start: 1991 Pneumococcal Vaccine : Pediatrics (0 to 5 Years) and At-Risk Patients (6 to 64 Years) (1 - PCV) Pneumococcal Vaccine: Pediatrics (0 to 5 Years) and At-Risk Patients (6 to 64 Years) (1 - PCV) [facility] Start: 1991 Pneumococcal Vaccine : Pediatrics (0 to 5 Years) and At-Risk Patients (6 to 64 Years) (1 of 2 - PCV) Pneumococcal Vaccine: Pediatrics (0 to 5 Years) and At-Risk Patients (6 to 64 Years) (1 of 2 - PCV) [facility] Start: 1990 COVID-19 VACCINE (#1) COVID-19 VACCI NE (#1) [facility] Start: 1990 COVID-19 Vaccine (1) COVID-19 Vaccin e (1) [facility] Start: 1988 History and physical examination, annual for health maintenance Wellness Visit [facility] Start: 1986 MMR Vaccines (1 of 1 - Standard series) MMR Vaccines (1 of 1 - Standard series) [facility] Start: 1986 Varicella vaccination Varicell a Vaccines (1 of 2 - 2-dose childhood series) [facility] Start: 01-16-1986 COVID-19 VACCINE (#1) COVID-19 VACCI NE (#1) [facility] Start: 1985 Anxiety Screening Anxiety Screening [facility] Start: 1985 Hepatitis B Vaccines (1 of 3 - 3-dose series) Hepatitis B Vaccines (1 of 3 - 3-dose series) [facility] Start: 1985 Hepatitis C antibody , confirmatory test HEPATITIS C VIRUS SCREENING [facility] Start: 1985 Hepatitis C screening HEPATITI S C VIRUS SCREENING [facility] Start: 1985 HIV screening HIV Screening [facility] Start: 1985 Lipid panel Lipid Panel [facility] Start: 1985 Tetanus vaccination [facility] Amphetamines [Presen ce] in Urine by Screen method >1000 ng/mL [facility] Bacteria identified Cx Nom (Bld) [facility] Bacteria identified in Blood by Culture [facility] Work Phone: Benzodiazepine measurement, urine [facility] Cocaine measurement, urine [facility] End: 07-22-2022 Complete blood count with white cell differential, manual CBC and Differential Lab Routine Hyperemesis Opiate use 1 Occurrences starting 07/22/2021 until 07/22/2022 [facility] Work Phone: Comment on above: 1 Occurrences starti ng 07/22/2021 until 07/22/2022 End: 07-22-2022 Comprehensive metabolic 2000 panel - Serum or Plasma Comprehensive Metabolic Panel Lab Routine Hyperemesis Opiate use 1 Occurrences starting 07/22/2021 until 07/22/2022 [facility] Comment on above: 1 Occurrences starti ng 07/22/2021 until 07/22/2022 fentaNYL [Presence] in Urine by Screen method [facility] End: 07-22-2022 Hepatitis B surface antibody measurement Hepatitis B Surface Antibody Lab Add-On Hyperemesis Opiate use 1 Occurrences starting 07/22/2021 until 07/22/2022 [facility] Comment on above: 1 Occurrences starti ng 07/22/2021 until 07/22/2022 End: 07-22-2022 Hepatitis B surface antigen measurement Hepatitis B Surface Antigen Lab Routine Hyperemesis Opiate use 1 Occurrences starting 07/22/2021 until 07/22/2022 [facility] Comment on above: 1 Occurrences starti ng 07/22/2021 until 07/22/2022 End: 07-22-2022 Hepatitis C antibody measurement Hepatitis C Antibody Lab Routine Hyperemesis Opiate use 1 Occurrences starting 07/22/2021 until 07/22/2022 [facility] Comment on above: 1 Occurrences starti ng 07/22/2021 until 07/22/2022 End: 07-22-2022 Human immunodeficiency virus antibody test HIV 1/2 Screen (4th Generation) Lab Add-On Hyperemesis Opiate use 1 Occurrences starting 07/22/2021 until 07/22/2022 [facility] Comment on above: 1 Occurrences starti ng 07/22/2021 until 07/22/2022 Methadone measuremen t, urine [facility] Patient Education [facility] Work Phone: Patient referral [facility] Work Phone: Phencyclidine [Prese nce] in Urine [facility] End: 09-26-2018 PROCEDURE - SPLINT APPLICATION PROCEDURE - SPLINT APPLICATION Procedures STAT One Time for 1 Occurrences starting 09/26/2018 until 09/26/2018 [employer] Comment on above: One Time for 1 Occur rences starting 09/26/2018 until 09/26/2018 End: 07-22-2022 Thyrotropin [Units/volume] in Serum or Plasma TSH with Reflex Free T4 Lab Routine Hyperemesis Opiate use 1 Occurrences starting 07/22/2021 until 07/22/2022 [facility] Comment on above: 1 Occurrences starti ng 07/22/2021 until 07/22/2022 TOXASSURE FLEX 23, U R W/DL Urine Routine TOXASSURE FLEX 23, UR W/DL Urine Routine Lab Routine Opioid use disorder Ordered: 10/31/2024 [facility] Work Phone: Comment on above: Ordered: 10/31/2024 Urine cannabinoid measurement [facility] Urine opiate measurement [facility] Immunizations Immunization Date Immunization Notes Care Provider [facility] 02-23-2023 tetanus toxoid, reduced diphtheria toxoid, and acellular pertussis vaccine, adsorbed Alex Santiago MD Work Phone: [facility] 09-24-2020 Covid (Moderna) Dr. Chemo Dunlap DO Work Phone: [facility] 08-27-2020 Efren ([facility] Dr. Chemo Dunlap DO Work Phone: [facility] 05-17-2013 hepatitis A vaccine, adult dosage Jose Edgare RN [facility] 05-17-2013 hepatitis B vaccine, adult dosage Jose Selle RN [facility] 05-17-2013 hepatitis A and hepatitis B vaccine James Neil MD Work Phone: [facility] 05-29-2008 hepatitis B vaccine, adult dosage Jose Selle RN [facility] 04-30-2008 hepatitis B vaccine, adult dosage Jose Selle RN [facility] Payers Date Payer Category Payer Self-pay [id number] 2023 [employer] [facility] [id number] 2023 Medicaid [id number] 2023 Medicaid HMO [employer]ICA[employer] ODM [id number] 2023 Medicaid [id number] 2018 Unknown [id number]. [id number] .[id number] 2017 Medicaid [id number] 2017 Medicaid [id number] 2017 Medicaid [id number]. 1.13.385.2 .[id number] 1985 Unknown [id number] 2.16.840.1.206163.3.579.2 .902 1985 Unknown [id number] 2.16.840.1.964731.3.579.2 .902 1985 Unknown [id number] 2.16.840.1.761900.3.579.2 .902 1985 Unknown [id number] 2.16.840.1.664831.3.579.2 .902 1985 Unknown [id number] 2.16.840.1.394118.3.579.2 .902 1985 Unknown [id number] 2.16.840.1.387299.3.579.2 .902 1985 Unknown [id number] 2.16.840.1.217218.3.579.2 .902 1985 Unknown [id number] 2.16.840.1.536441.3.579.2 .902 1985 Unknown [id number] 2.16.840.1.949418.3.579.2 .902 1985 Unknown [id number] 2.16.840.1.487691.3.579.2 .902 1985 Unknown [id number] 2.16.840.1.120637.3.579.2 .902 1985 Unknown [id number] 2.16.840.1.366667.3.579.2 .902 1985 Unknown [id number] 2.16.840.1.515816.3.579.2 .902 1985 Unknown [id number] 2.16.840.1.479484.3.579.2 .902 1985 Unknown [id number] 2.16.840.1.641152.3.579.2 .594 1985 Unknown [id number] 2.16.840.1.235903.3.579.2 .594 1985 Unknown [id number] 2.16.840.1.397383.3.579.2 .594 1985 Unknown [id number] 2.840.1.986678.3.579.2 .594 1985 Unknown [id number] 2.16.840.1.490890.3.579.2 .594 1985 Unknown [id number] 2.16840.1.741815.3.579.2 .594 1985 Unknown [id number] 2.16840.1.963202.3.579.2 .594 1985 Unknown [id number] 2.16840.1.155582.3.579.2 .594 1985 Unknown [id number] 2.16.840.1.447296.3.579.2 .594 1985 Unknown [id number] 2.16.840.1.688175.3.579.2 .594 1985 Unknown [id number] 2.16.840.1.430051.3.579.2 .594 1985 Unknown [id number] 2.16.840.1.314022.3.579.2 .594 1985 Unknown [id number] 2.16840.1.984224.3.579.2 .983 1985 Unknown [id number] 2.840.1.719977.3.579.2 .903 1985 Unknown [id number] 2.16.840.1.145150.3.579.2 .903 1985 Unknown [id number] 2.840.1.180323.3.579.2 .903 1985 Unknown [id number] 2.840.1.956011.3.579.2 .903 1985 Unknown [id number] 2.840.1.629593.3.579.2 .903 1985 Unknown [id number] 2.840.1.760886.3.579.2 .903 1985 Unknown [id number] 2.840.1.911813.3.579.2 .903 1985 Unknown [id number] 2.840.1.670835.3.579.2 .1249 1985 Unknown [id number] 2.840.1.583112.3.579.2 .1249 1985 Unknown [id number] 2.840.1.064501.3.579.2 .1249 Private Health Insurance [id number] Unknown [id number] 2.840.1.741236.3.579.2 .462 Unknown [id number] 2.840.1.645507.3.579.2 .462 Unknown [id number] 2.840.1.539690.3.579.2 .462 Unknown [id number] 2.840.1.604095.3.579.2 .462 Unknown [id number] 2.840.1.302364.3.579.2 .462 Unknown [id number] 2.840.1.349298.3.579.2 .462 Unknown [id number] 2.16.840.1.277548.3.579.2 .462 Unknown [id number] 2.16.840.1.201920.3.579.2 .462 Unknown [id number] 2.16.840.1.241338.3.579.2 .462 Unknown [id number] 2.16.840.1.194220.3.579.2 .462 Social History Date Type Detail Facility Start: 02-20-2018 End: 09-26-2018 Tobacco smoking status NHIS Never smoker [facility] Start: 1985 Sex Assigned At Not on file [facility] Start: 08-09-2021 End: 05-30-2022 Exposure to SARS-CoV-2 (event) Not sure [facility] Start: 12-03-2019 End: 09-01-2024 Tobacco smoking status NHIS Current every day smoker [facility] Start: 12-03-2019 End: 11-16-2024 Cigarettes smoked current (pack per day) - Reported [facility] Start: 12-03-2019 End: 05-31-2022 Alcohol intake Lifetime non-drinker (finding) [facility] Start: 09-26-2018 End: 12-03-2019 History SDOH Alcohol Frequency 1 [facility] History of tobacco use Chews Tobacco [facility] [place] Start: 12-03-2019 End: 10-22-2021 Tobacco use and exposure Smokeless tobacco non-user [facility] Start: 07-10-2021 End: 07-20-2021 Exposure to SARS-CoV-2 (event) Yes [facility] History of tobacco use Cigarette Smoker [facility] Start: 08-17-2021 End: 10-07-2021 Tobacco use and exposure User of smokeless tobacco [facility] Start: 04-21-2022 End: 02-23-2023 Tobacco smoking status NHIS Unknown if ever smoked [facility] Start: 01-22-2020 None [facility] Start: 01-22-2020 Heroin;Marijuana;- [facility] Start: 01-22-2020 Spouse/ Significant Other [facility] Start: 01-23-2020 Cigarettes [facility] Start: 1985 Sex Assigned At Male [facility] Start: 02-23-2023 End: 11-16-2024 Gender identity Not on file [facility] Start: 03-08-2023 End: 08-13-2024 Alcohol intake Ex-drinker (finding) [facility] How often to you hav e a drink containing alcohol? Never [facility] Average Number of Drinks Not on file [facility] (I/We) worried wheth er (my/our) food would run out before (I/we) got money to buy more. Never true [facility] Has the [employer] threatened to shut off services in your home in past 12Mo No [facility] Are you now , , , , never or living with a partner? Living with partner [facility] Do you feel stress - tense, restless, nervous, or anxious, or unable to sleep at night because your mind is troubled all the time - these days [OSQ] Not at all [facility] Start: 02-23-2023 End: 09-03-2024 Sex Male (finding) [facility] Start: 09-03-2024 Tobacco smoking status NHIS Ex-smoker (finding) [facility] Start: 11-16-2024 Tobacco smoking status [facility] Occasional tobacco smoker [facility] Work Phone: Start: 11-16-2024 Tobacco use and exposure Former smokeless tobacco user [facility] Work Phone: Start: 11-16-2024 Tobacco Comment Client is trying to quit, but still smokes cigarettes sometimes. [facility] Work Phone: Start: 11-16-2024 Gender identity Identifies as male gender (finding) [facility] Work Phone: Start: 11-16-2024 Sexual orientation Heterosexual (finding) [facility] Work Phone: Goals Date Patient Goal Desired Activity /State Functional Status Date Assessment Result Facility 04-26-2022 Functional status Activity Ability Indepe ndent [facility] Work Phone: 04-25-2022 Functional status Ambulates [facility] Work Phone: Mental Status Date Assessment Result Facility 04-26-2022 Cognitive function Voice/Name Sophy Schwartz [facility] Work Phone: Clinical Notes 07-22-2021 to 11-28-2024 Nancy Bolden, [facility] - 11/28/2024 2:06 PM Carlos Robles, KIMMY - 11/27/2024 4:51 PM Carlos Robles RN - 11/26/2024 3:57 PM EDTRejesus manuel Vizcaino, [facility] - 11/16/2024 4:47 PM EDT Note Date & Type Note Facility 11-28-2024 History of Present illness Narrative Client Name: Mayito Forbes Level of Care: Outpatient Time of session: 2:05-2:46 Service Type: Individual Counseling Duration of Session (in Minutes): 41 Reports continued recovery: Yes Participated in Community-based Recovery Activities: Yes Progress towards goal: Moderate Improvement Client Goal: Dimension 3 Emotional/ Behavioral or Cognitive Conditions and Complications, Dimension 5 Relapse, Continued Use or Continued Problem Potential, and Dimension 6 Recovery Environment Behaviors/Symptoms Observed: showed interest, showed insight, active in discussion, and offered constructive input Content of Session and Clinical Interventions: Clinician and client met for introductory individual session via phone. Client reports he prefers to be called Migue. Clinician inquired to client what brought him to [facility] program. Client shared his story, stating I had a small relapse about 2 months ago, but I'm sober now for 1 month 25 days and I can't remember the last time I had this long of sobriety. Client reflects I feel excited and motivated for my recovery. Client shared his drug use history and legal history and shared previous charges of drug trafficking, felonious assault, and attempted child endangerment and served 5.5 years in alf. Client is off probation and has outstanding fines he is working on paying down. Client reflects I first started using at 16 when I wrestled and was in a lot of pain and used to manage it. Clinician inquired about hobbies client enjoys that enhance his recovery, and he shares he enjoys fishing, fighting MMA, and working out. Client is currently working for the [employer] doing [employer] work along with [email or web address]. Client reports he was in the hospital in August and lost his previous job due to being in hospital and has a civil case for wrongful termination. Client states he is going to meetings and on Suboxone which helps with cravings. Clinician worked to begin building therapeutic rapport. Evidence Based Practices used this session: Cognitive Behavioral therapy utilizing cognitive restructuring, guided discovery, and relaxation/stress reduction as intervention(s), Motivation Enhancement Therapy utilizing expressing empathy and supporting self-efficacy as intervention(s), and Reality Therapy utilizing active listening and giving feedback as intervention(s) Client's Response to Intervention: Client was appropriate throughout the session. Client successfully shared insight into previous drug usage and how it has impacted his current recovery. Client reflected on coping skills and hobbies he enjoys to maintain his sobriety. Client shared information regarding previous employment. Client was able to provide information and answer clinician questions appropriately. Client was receptive to clinician feedback. Current Stage of Change Regarding Substance use: action Rationale for continued stay: The client is making progress in the present level of care, but is not sufficiently stabilized to be safely and effectively treated at a less restrictive level of care. Plan: Client will continue to attend scheduled sessions as outlined in treatment plan. Next scheduled appointment is 12/05/2024. Migue Forbes engaged in a telehealth session via PHONE with this provider practicing within the [facility]. The identity of Migue was verified by their date of , (1985), and last four digits of their social security number, ([id number]). The provider demonstrated that confidentially was preserved at their location. Migue was informed that they were responsible for ensuring confidentially was secured at their location. Migue's location was documented for emergency purposes. Migue was informed of the necessary steps that would occur if an emergency was to occur or technology failed during session. AUDELIA Garcia documented in this encounter [facility] Work Phone: 11-27-2024 History of Present illness Narrative [facility] Nursing Medication Education Subjective: Mayito Forbes is a 39 year old here for Medication Education only as ordered by provider. Chief Complaint Patient presents with Medication Management Current Medications Medication Sig buprenorphine-naloxone (SUBOXONE FILM) 8-[address] 1 Strip under the tongue 3 (three) times daily for 14 days. Max Daily Amount: 3 Strips sennosides (SENNA) 8.6 mg cap Take 1 Capsule by mouth once daily as needed (constipation) for up to 30 days. polyethylene glycol, PEG, 3350 (MIRALAX) 17 gram packet Take 17 g by mouth once daily as needed for other reason (constipation) for up to 90 days. gabapentin (NEURONTIN) 300 mg capsule Take 1 Capsule by mouth 2 (two) times daily. buPROPion XL (WELLBUTRIN XL) 150 mg 24 hr tablet Take 1 Tablet by mouth every morning for 180 days. venlafaxine XR (EFFEXOR XR) 75 mg 24 hr capsule Take 1 Capsule by mouth once daily with breakfast for 60 days. venlafaxine XR (EFFEXOR XR) 150 mg 24 hr capsule Take 1 Capsule by mouth once daily with breakfast for 60 days. fluconazole (DIFLUCAN) 200 mg tablet Take 200 mg by mouth once. naloxone (NARCAN) 4 mg/actuation nasal spray Place 4 mg into the nostril(s) as needed. nicotine (NICODERM, STEP 2) 14 mg/[address] 1 Patch onto the skin once daily (every 24 hours). nicotine (NICODERM, STEP 1) 21 mg/[address] 1 Patch onto the skin once daily (every 24 hours). nicotine (NICODERM, STEP 3) 7 mg/[address] 1 Patch onto the skin once daily (every 24 hours). nystatin (MYCOSTATIN) 100,000 unit/gram powder Apply 1 Application topically 2 (two) times daily. ondansetron ODT (ZOFRAN-ODT) 4 mg disintegrating tablet Take 4 mg by mouth 2 (two) times daily as needed. Objective: There were no vitals filed for this visit. - telephone visit Education / Planning : Reinforce medication instructions, focusing on the importance of taking medications as prescribed, and avoiding missed doses. Encourage patient to contact healthcare provider if side effects worsen or new symptoms arise. Is education needed on a newly prescribed medication: Yes If yes, what is the name of the medication: Polyethylene glycol (Miralax) and Sennosides (Senna) Nurse provided education on newly prescribed medication including: Nurse reviewed the name of medication including brand and generic, Nurse reviewed with patient the indication for the medication , Nurse provide education on proper dosage of medication , Nurse provided education on the proper time and frequency of medication, Nurse provided education on the proper route medication is to be taken, and Nurse provided potential adverse reactions of taking medication Does patient verbalize understanding of all above prescribed medications orders: Yes Nursing Assessment / Recommendations: Is patient referred and / or can benefit from a medication reminder box / pill data processing systems project planner? Declined If patient accepts education with setting up medication reminder box, nursing will assist and encourage patient to: Utilize AVS and RX bottles as guidance for proper medication set up. (Routine medications only) Identify each medication individually, and provide teach back to the nurse on the correct number of tablets/capsules to make the correct dose. Medication will be matched to the correct day(s) and time(s) according Rx instructions. Was patient able to complete the medication reminder box / pill data processing systems project planner education successfully? N/a- client was able to teach back differences in medications and when to use appropriately Next nurse visit: No follow-ups on file. Provider follow up scheduled on 12/10/24 with Allan Elizabeth MD. I spent a total of 15 minutes on nursing care with the patient on the day of the visit including: preparing to see the patient (e.g. chart review); performing a nursing assessment both subjective and objectively appropriate; educating the patient; documenting clinical information in the electronic health record; independently interpreting results and communicating results to the patient. Favian Robles RN 11/27/2024 documented in this encounter [facility] Work Phone: 11-26-2024 History of Present illness Narrative MAT Nursing Note Purpose of Visit: MAT follow up Chief Complaint Patient presents with Medication Assisted Treatment (MAT) Medication Management SUBJECTIVE: Mayito Forbes is a 39 year old male here for follow up visit. Interval Substance Use: ROS: (23633- Include 2-9 ROS) General: negative Neurological: negative Psychiatric: negative Denies SI and Denies HI OBJECTIVE- Lab results (if available, otherwise kyler n/a): Results for orders placed or performed in visit on 11/12/24 TOXASSURE FLEX 23, UR W/DL Urine Routine Specimen: Urine Result Value Ref Range Summary Report FINAL Comment: Cannabinoids, MS, Ur RFX Gabapentin, MS, Ur RFX ToxAssure Flex 23, UR w/DL Test Result Flag Units Drug Present Carboxy-THC >1124 ng/mg creat Carboxy-THC is a metabolite of tetrahydrocannabinol (THC). Source of THC is most commonly herbal marijuana or marijuana-based products, but THC is also present in a scheduled prescription medication. Trace amounts of THC can be present in hemp and cannabidiol (CBD) products. This test is not intended to distinguish between [id number], the predominant form of THC in most herbal or marijuana-based products, and [id number]. Buprenorphine 382 ng/mg creat Norbuprenorphine 345 ng/mg creat Source of buprenorphine is a scheduled prescription medication. Norbuprenorphine is an expected metabolite of buprenorphine. Gabapentin PRESENT Test Result Flag Units Ref Range Creatinine 89 mg/dL >=20 Declared Medications: Medication list was not provided. For clinical consultation, please call . CREATININE 89 >=20 mg/dL Comment: REFERENCE RANGE: Ref Range>=20 AMPHETAMINES IA Negative CUTOFF:300 ng/mL BENZODIAZEPINES Negative Diazepam Not Detected ng/mg creat Desmethyldiazepam Not Detected ng/mg creat Oxazepam Not Detected ng/mg creat Temazepam Not Detected ng/mg creat Comment: Expected metabolism of benzodiazepine class drugs: Parent Drug Detected Metabolites Diazepam: Desmethyldiazepam, Temazepam, Oxazepam Chlordiazepoxide: Desmethyldiazepam, Oxazepam Clorazepate: Desmethyldiazepam, Oxazepam Halazepam: Desmethyldiazepam, Oxazepam Temazepam: Oxazepam Oxazepam: None Alprazolam Not Detected ng/mg creat Alpha-hydroxyalprazolam Not Detected ng/mg creat Desalkylflurazepam Not Detected ng/mg creat Lorazepam Not Detected ng/mg creat Alpha-hydroxytriazolam Not Detected ng/mg creat Clonazepam Not Detected ng/mg creat 7-aminoclonazepam Not Detected ng/mg creat Midazolam Not Detected ng/mg creat Alpha-hydroxymidazolam Not Detected ng/mg creat Flunitrazepam Not Detected ng/mg creat Desmethylflunitrazepam Not Detected ng/mg creat COCAINE METABOLITE IA Negative CUTOFF:150 ng/mL ETHYL ALCOHOL Enzymatic Negative CUTOFF:0.020 g/dL ETHANOL BIOMARKERS IA Negative CUTOFF:500 ng/mL CANNABINOIDS IA Comment: Further testing indicated 6-ACETYLMORPHINE IA Negative CUTOFF:10 ng/mL OPIATE CLASS IA Negative CUTOFF:100 ng/mL OXYCODONE CLASS IA Negative CUTOFF:100 ng/mL METHADONE IA Negative CUTOFF:100 ng/mL METHADONE MTB IA Negative CUTOFF:100 ng/mL BUPRENORPHINE +POSITIVE+ BUPRENORPHINE 382 ng/mg creat NORBUPRENORPHINE 345 ng/mg creat FENTANYL Negative Fentanyl Not Detected ng/mg creat Norfentanyl Not Detected ng/mg creat TAPENTADOL, IA Negative CUTOFF:200 ng/mL MEPERIDINE Negative CUTOFF:200 ng/mL PROPOXYPHENE Negative CUTOFF:300 ng/mL TRAMADOL IA Negative CUTOFF:200 ng/mL BARBITURATES IA Negative CUTOFF:200 ng/mL OTHER HALLUCINOGENS Negative KETAMINE Not Detected NORKETAMINE Not Detected PHENCYCLIDINE IA Negative CUTOFF:25 ng/mL GABAPENTIN, IA Comment: Further testing indicated CARISOPRODOL IA Negative CUTOFF:100 ng/mL SEDATIVE/HYPNOTICS Negative ZOLPIDEM Not Detected ZOLPIDEM METABOLITE Not Detected Zopiclone/Eszopiclone Not Detected Amino Chloropyridine Not Detected Zaleplon Not Detected Comment: Expected metabolism of Sedatives/Hypnotics: Parent Drug Detected Metabolites Zolpidem: Zolpidem Acid Zopiclone/Eszopiclone: Amino Chloropyridine Zaleplon: None ACETAMINOPHEN Negative CUTOFF:5.0 ug/mL MISCELLANEOUS Negative DEXTROMETHORPHAN Not Detected Levorphanol / Dextrorphan Quantification Not Detected Comment: Expected metabolism of Dextromethorphan and Dextrorphan/Levorphanol: Parent Drug Detected Metabolites Dextromethorphan: Dextrorphan Dextrorphan/Levorphanol: None Dextrophan cannot be distinguished from Levorphanol by the method used for analysis. Wt Readings from Last 3 Encounters: No data found for Wt VITALS: Last 3 Vitals Flowsheet Row Office Visit from 11/12/2024 in [facility]/ Visits from 10/31/2024 in [facility] Temp -- -- Pulse 79 77 BP 110/80 100/70 Resp 16 16 Weight -- -- There were no vitals taken for this visit. There is no height or weight on file to calculate BMI. SAFETY RISK ASSESSMENT: Acute: Low risk of harm to self and/or others Chronic: Low risk of harm to self and/or others IMPRESSION: Mayito Forbes is a 39 year old male presenting for follow up visit today. Client has been doing well overall since last visit. UDS collected and sent to the lab. Client has been stable on Suboxone 8mg three times daily now. Client does endorse some constipation issues, especially now that he is on TID dosing- he will have a bowel movement every 3-4 days now. Discussed with provider Allan Elizabeth MD, who prescribed some medication to help ease constipation. 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 Client has engaged with [facility] services and has continued to participate in NA online groups, which he has started to participate in. Client is also working on getting a sponsor, which he is looking forward to the additional support. Patient is currently prescribed Buprenorphine/Naloxone Oral or Sublingual (Suboxone) for total 3 times daily dose of 24mg. Patient is experiencing the following withdrawal symptoms: None. Patient denies any cravings at this time Patient denied any other symptoms or concerns this visit. PATIENT EDUCATION: Patient educated on suboxone dosing guidelines, symptoms of withdrawal to monitor for, and when to seek follow up care. Provided medication education, including increased risk of overdose and if patient returns to opioid use following cessation of use. Reviewed naloxone education and access. Reviewed upcoming appointments and psychosocial treatment recommendations. [facility] contact information for any questions or concerns Diagnoses: F11.21 Opioid use disorder, severe, in early remission ([facility]) Plan : BUPRENORPHINE 8 MG-NALOXONE 2 MG SUBLINGUAL FILM - Place 1 Strip under the tongue 3 (three) times daily for 14 days. Max Daily Amount: 3 Strips TOXASSURE FLEX 23, UR W/DL VIRAL HEPATITIS SCREENING AND DIAGNOSIS (HAV, HBV, HCV) RPR (MONITOR) W/REFL TITER LIPID PANEL HIV 1/0/2 AG/AB W/CASCADE RFLX SUPPLEMENTAL TESTING HEMOGLOBIN GLYCOSYLATED A1C COMPREHENSIVE METABOLIC PANEL CHLAMYDIA, GONORRHOEAE, AND TRICHOMONAS VAGINALIS, KATLYN -- Discussed harm reduction practices. Pt has naloxone -- Centers MAT Treatment Guidelines: Treatment Guidelines signed by patient at past visit -- Current Visit Frequency: Every 2 weeks -- Urine Drug Screen Obtained: yes -- Other treatment recommendations: RECOMMENDATIONS/TREATMENT PLAN : 1). [x] Medication: Discussed risks, side effects, benefits and alternatives to prescribed medication: 2). Referrals/Psychotherapy follow up/Co-management with other providers [] Primary care: [] [facility] [] Alcohol/Drug treatment: [] Psychoeducation/Counseling [] Other: 3). [x] Emergency Contact Plan: Patient understands to call Mobile Crisis at [phone], call 911, or go to the nearest ER as appropriate in case of thoughts of harm to self or others, or acute onset of intolerable side effects. Patient aware of [facility] hours if they need to be seen sooner than their next follow up appointment. Treatment plan discussed with provider: Notified of any medication issues and status changes. Favian Robles RN documented in this encounter [facility] Work Phone: 11-16-2024 History of Present illness Narrative Client Name: Mayito Forbes Time of session: 12:15pm-1:45pm Service Type: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 Medical History Heroin abuse Opiate withdrawal Mandible fracture Carpal tunnel syndrome, bilateral Anxiety Depression Asthma Drug abuse IV drug user Substance abuse Home Medications ?Medication ?Instructions ?Recorded ?Last Taken ?Type venlafaxine 75 mg capsule,extended 150 mg PO DAILY moo d 04/21/22 04/21/22 History release 24 hr venlafaxine 150 mg 150 mg PO DAILY DEPRESSION 0 11/08/23 Unknown History capsule,extended release 24 hr bupropion HCl 100 mg tablet,12 hr 100 mg PO DAILY 12/21 Unknown History sustained-release nicotine 14 mg/24 hr daily 1 patch topical DAILY 09/03 Unknown History transdermal patch ondansetron 4 mg disintegrating 4 mg PO Q8H PRN PRN Na usea #10 tabs 09/03/24 Unknown Rx tablet Allergy/AdvReac Type Severity Reaction Status Date / Time No Known Allergies Allergy Verified 09/28/22 10:17 Social History Smoking Status: Former smoker Smokeless tobacco user: chewing tobacco alcohol intake: never substance use type: opiates EXAM Physical Exam Const Vital Signs: 09/03/24 19:07 09/03/24 21:00 09/03/24 21:50 Temperature 97.9 F Temperature Source Temporal Pulse Rate 89 53 L 97 Respiratory Rate 22 H 18 18 Blood Pressure 170/119 H Blood Pressure Mean 136 Pulse Ox 97 95 97 Oxygen Delivery Method Room Air Room Air Room Air [facility] MDM Narrative Medical decision making narrative: HISTORY OF PRESENT ILLNESS: Chief complaint: Opiate detox 39-year-old male here for heroin detox. He complains of nausea and diaphoresis. Notes he last used heroin 8 days ago. Notes he got up in control shot 4 days ago. States he is interested in gabapentin and marijuana detoxification. REVIEW OF SYSTEMS: Pertinent positives: Nausea, diaphoresis Pertinent negatives: Chest pain PHYSICAL EXAM: Nursing triage notes reviewed, Vital signs reviewed Constitutional: please see mdm HENT: MMM Eyes: Pupils equal round and reactive to light, Extraocular muscles intact Neck: No stridor, no JVD, full neck ROM Lungs: Clear to auscultation, No wheezing or rales. No increased work of breathing, no conversational dyspnea, no accessory muscle use, no nasal flaring. No respiratory distress noted Heart: Regular rate and rhythm, No murmurs, No rubs and No gallops, 2+ distal pulses (radial, femoral, posterior tibial) in all extremities Abdomen: Soft, there is no tenderness, rigidity, rebound or guarding, no obviousperitoneal signs, no palpable pulsatile abdominal masses, no auscultated abdominal bruit : No CVAT Extremities: No edema Neuro: No new focal neurological deficits, cranial nerves II through XII intact,5/5 strength in all present extremities. Intact sensation to light touch in all present extremities, 2+ reflexes bilateral patella tendons. Skin: No rash or lesions noted MEDICAL DECISION MAKING: Chief Complaint: please see HPI External records reviewed: Reviewed prior ED visit Factors affecting care: opiate abuse Social determinants of health: Polysubstance abuse History obtained from others: none Consults: Hospitalist (Dr. Ramirez) MDM Narrative: The patient was initially hypertensive, afebrile nontoxic-appearing. Exam without focal abdominal maladies including peritoneal signs Obtain medical clearance labs. ALL IMAGES (IF OBTAINED) HAVE BEEN PERSONALLY REVIEWED AND INTERPRETED BY MYSELF. CBC showed no leukocytosis suggestive admission, no anemia or thrombocytopenia BMP showed mild hypokalemia likely secondary to vomiting no sign of LORI Urine tox screen negative Serum alcohol negative Given patient has been opiate free per his report for 8 days and his COWS score (2) is low I do not suspect he is suffering from acute opiate withdrawal. As such he does not require admission for opiate detoxification. Discussed case with hospitalist who agreed the patient is at id criteria for admission at this time. The patient and/or family, caregivers express understanding. The patient and/orfamily, caregivers agrees with the plan. Shared decision making: I will have a discussion with the patient and or visitors regarding risk/benefits of further testing or admission. They will be made aware of of the risk/benefits inherent in this decision they will be given the opportunity to voice understanding. Total critical care time today provided was at least 0 minutes. This excludes separately billable procedures. Critical care time (if documented) is secondary to the patient having high probability of clinically significant/life threatening deterioration in the patient's condition which required my urgent intervention. Impression: 1. Acute nausea from 2. History of opiate abuse Dispo: Discharge home This note was generated with GAMEVIL dictation software. It may contain incorrectwords, spelling, and punctuation that were not noted in review of the chart prior to signing. Lab Data Labs: Laboratory Results - last 24 hr 09/03/24 09/03/24 20:30 20:36 WBC 10.8 RBC 5.18 Hgb 16.0 Hct 44.9 MCV 86.7 MCH 30.9 MCHC 35.6 RDW Std Deviation 38.3 RDW Coeff of Corinne 12.1 Plt Count 375 MPV 8.7 Immature Gran % (Auto) 0.300 Neut % (Auto) 78.7 H Lymph % (Auto) 15.4 L Falls % (Auto) 5.0 Eos % (Auto) 0.1 Baso % (Auto) 0.5 Absolute Neuts (auto) 8.5 H Absolute Lymphs (auto) 1.66 Nucleated RBC % 0 Sodium 141 Potassium 2.9 L Chloride 102 Carbon Dioxide 23.7 Anion Gap 16 H BUN 9 Creatinine 1.02 Estim Creat Clear Calc 97.23 Est GFR (MDRD) Non-Af 96 BUN/Creatinine Ratio 9.3 L Glucose 103 H Calcium 9.7 Urine Opiates Screen NEGATIVE U Buprenorphine Qual NEGATIVE Ur Oxycodone Screen NEGATIVE Urine Methadone Screen NEGATIVE Urine Fentanyl Screen PRESUMPTIVE POSITIVE Ur Barbiturates Screen NEGATIVE Ur Phencyclidine Scrn NEGATIVE Ur Amphetamines Screen NEGATIVE U Benzodiazepines Scrn NEGATIVE Urine Cocaine Screen NEGATIVE U Cannabinoids Screen PRESUMPTIVE POSITIVE Ethyl Alcohol < 10.1 Discharge Plan Triage Chief Complaint: Substance Abuse ED Provider: Alexsander Mckenna Dx/Rx/DC Orders Clinical Impression: Opiate abuse, episodic, Cannabis abuse Instructions: Addiction Disease, Addiction Recovery Counseling Prescriptions: New ondansetron 4 mg tablet,disintegrating 4 mg PO Q8H PRN PRN (Reason: Nausea) Qty: 10 0RF No Action venlafaxine 75 mg capsule,extended release 24hr 150 mg PO DAILY bupropion HCl 100 mg tablet sustained-release 12 hr 100 mg PO DAILY nicotine 14 mg/24 hr patch 24 hour 1 patch topical DAILY venlafaxine 150 mg capsule,extended release 24hr 150 mg PO DAILY Primary Care Provider: Natasha Luciano NP Referrals: Natasha Luciano NP [Other] Activity Restrictions/Additional Instructions: Thank you for trusting us with your care today! Your labs were reassuring. Your potassium level was slightly low. This was replaced with oral potassium. Please take Zofran as needed for nausea vomiting control at home Please take Tylenol (2 pills, 650 mg), ibuprofen (2 pills, 400 mg) every 6 hours as needed for pain and fever control. Please return to the emergency department if your symptoms change or worsen. Please follow with your primary care physician for further outpatient evaluation and management. Print Language: South African Disposition Disposition: Home, Self Care What to do if you have Problems For any increased pain, shortness of breath, bleeding, nausea or vomiting, chest pain, or any unexpected problems, contact your Primary Care Provider. Call [facility] ([phone]) or report to the closest Emergency Room. Call 911 if necessary. 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 Patient states that he has been on Vivitrol injections monthly up until 2 months ago. He states that 4 days ago he used IV heroin. Patient states he went [facility] yesterday and received his Vivitrol injection. He states shortly after he started to withdraw from opiates. He states that started with anxiety, muscle aches, restlessness, yawning, sweating it is now turned into nausea, and vomiting. Patient states he has tried Zofran at home with little relief. He states that he is not interested in admission for opiate detox. He states he just wantssymptom control and discharged home. He states this feels like his similar withdrawals. Was asymptomatic prior to receiving the injection. Review of systems: See HPI Medications: As listed on the chart Allergies: As listed on the chart PFSH: Per chart Vital signs: As listed on the chart. Reviewed. Physical exam: Gen: A&O x3, restless, holding emesis bag Head: Normocephalic, atraumatic Eyes: No sclera icterus, conjunctiva clear, PERRL, EOMI ENT: Dry mucous membranes Neck: Trachea midline, No JVD CV: tachycardic, regular rhythm, no murmurs, no peripheral edema Resp: Lungs CTA BL, no w/r/c GI: Abd soft, non-distended, non-tender, no r/r/g Musc: Full ROM, no deformity Skin: Sweating, dry, multiple tattoos Neuro: Alert, oriented, grossly intact, sensation intact Psych: Cooperative [facility] Medical History Heroin abuse Opiate withdrawal Mandible fracture Carpal tunnel syndrome, bilateral Anxiety Depression Asthma Drug abuse IV drug user Substance abuse Home Medications ?Medication ?Instructions ?Recorded ?Last Taken ?Type venlafaxine 75 mg capsule,extended 150 mg PO DAILY moo d 04/21/22 04/21/22 History release 24 hr venlafaxine 150 mg 150 mg PO DAILY DEPRESSION 0 11/08/23 Unknown History capsule,extended release 24 hr Allergy/AdvReac Type Severity Reaction Status Date / Time No Known Allergies Allergy Verified 09/28/22 10:17 Social History Smoking Status: Current every day smoker tobacco type: cigarettes Smokeless tobacco user: chewing tobacco alcohol intake: never substance use type: opiates EXAM Physical Exam Const Vital Signs: 09/01/24 10:11 09/01/24 11:09 09/01/24 12:38 Temperature 99.3 F H Temperature Source Temporal Pulse Rate 110 H 75 65 Respiratory Rate 20 H 19 H 19 H Blood Pressure 140/93 H 139/89 H Blood Pressure Mean 108 105 Pulse Ox 100 100 93 Oxygen Delivery Method Room Air Room Air Room Air 09/01/24 13:00 Temperature Temperature Source Pulse Rate 75 Respiratory Rate 17 Blood Pressure 139/89 H Blood Pressure Mean 105 Pulse Ox 100 Oxygen Delivery Method Room Air MDM MDM MDM Narrative Medical decision making narrative: 39-year-old male with past medical history of IV drug abuse with heroin presentsfor evaluation of opiate withdrawal. Patient states that he has been on Vivitrol injections monthly up until 2 months ago. He states that 4 days ago heused IV heroin. He received a Vivitrol injection yesterday and now is an activeopiate withdrawal. Feels like similar episodes. States he wants symptom controland does not want to be admitted. Has tried Zofran with little relief. On presentation, patient is restless and sweaty. He is tachycardic. Differential diagnosis includes but is not limited to opiate withdrawal, electrolyte abnormality, LORI, substance intoxication. Prior to medication being given, EKG was obtained. This is personally reviewed and interpreted by me, ED physician. EKG has artifact secondary to patient's restlessness. Heart rate 99. Normal sinus rhythm with a QTc of 454. This is mildly elevated. Will be careful with QTc prolonging medications. However given patient's symptoms, NS bolus, Reg karen,clonidine, Tylenol ordered. Basic labs ordered with urine drug screen and alcohol level. CBC with a leukocytosis of 18.1 as well as hemoconcentration witha hemoglobin of 16.9. I think this is likely reactive from his nausea and vomiting and suspected dehydration. Patient denies any infectious type symptoms. BMP is positive for dehydration with low bicarb and anion gap. No LORI. Anion gap is likely secondary to his nausea and vomiting. Do not suspect DKA despite his mild hyperglycemia 146. Another NS bolus ordered. Ethanol levelunremarkable. On reevaluation, fluids are still running. Patient is sleeping comfortably. Tachycardia has resolved. After patient received all medication and fluids, his symptoms have improved. He was able to sleep here in the emergency department. His tachycardia has resolved. No emesis. Restlessness and anxiety have resolved. Patient was given the option of admission for detox versus discharge home with antinausea medication. He elected to discharge home. He was told to follow-up with his PCP as well as the Vivitrol clinic. Return precautions were explained. He confirmed understanding the plan. Patient was discharged home. He was given a prescription for Zofran. Urine drug screen hadnot been obtained however I do not think that this is necessary anymore therefore patient will be discharged without it. Impression: 1. Acute opioid withdrawal secondary to Vivitrol injection 2. History of IV heroin abuse 3. Nausea and vomiting 4. Dehydration secondary to above Lab Data Labs: Laboratory Results - last 24 hr 09/01/24 10:52 WBC 18.1 H RBC 5.46 Hgb 16.9 H Hct 46.7 MCV 85.5 MCH 31.0 MCHC 36.2 H RDW Std Deviation 37.0 RDW Coeff of Corinne 11.9 Plt Count 445 MPV 9.0 Immature Gran % (Auto) 0.400 Neut % (Auto) 89.4 H Lymph % (Auto) 5.6 L Falls % (Auto) 4.3 Eos % (Auto) 0.0 Baso % (Auto) 0.3 Absolute Neuts (auto) 16.1 H Absolute Lymphs (auto) 1.01 Nucleated RBC % 0 Sodium 141 Potassium 3.8 Chloride 105 Carbon Dioxide 17.9 L Anion Gap 18 H BUN 9 Creatinine 1.06 Estim Creat Clear Calc 93.56 Est GFR (MDRD) Non-Af 92 BUN/Creatinine Ratio 8.2 L Glucose 146 H Calcium 10.2 Ethyl Alcohol < 10.1 Discharge Plan Triage Chief Complaint: Substance Abuse ED Provider: Chemo Dunlap Dx/Rx/DC Orders Prescriptions: No Action venlafaxine 75 mg capsule,extended release 24hr 150 mg PO DAILY venlafaxine 150 mg capsule,extended release 24hr 150 mg PO DAILY Primary Care Provider: Natasha Luciano NP Referrals: Care Physician,No Primary [Non-Staff] - Print Language: South African What to do if you have Problems For any increased pain, shortness of breath, bleeding, nausea or vomiting, chestpain, or any unexpected problems, contact your Primary Care Provider. Call [facility] ([phone]) or report tothe closest Emergency Room. Call 911 if necessary. 09/01/24 1338 Cosigner Signature (if applicable): CC: Natasha Luciano NP ~ Signed [facility]03-18-2025 Emergency department Note* Georgia Baker RN - 08/14/2024 3:14 AM EDT Spoke with Kristy at the [facility] who states that they do not have a bed for the patient and they do not know when they will get a bed. She states that they will call when they have a bed [phone]* Georgia Baker RN - 08/14/2024 3:14 AM EDT Spoke with Kristy at the [facility] who states that they do not have a bed for the patient and they do not know when they will get a bed. She states that they will call when they have a bed * Ursula Denney RN - 08/13/2024 6:36 PM EDT Pt continues to have intervals of sleeping and then vomiting. PRN to be adminsitered * Mary Hudson RN - 08/13/2024 12:37 PM EDT Demetrio HITCHCOCK is available STATE-WIDE. Narcan/Naloxone is available WITHOUT prescription at most [place] [facility], including [facility], [facility], [facility], [employer], and others. It has a cost, but there is a free program through [facility] (and 47 other [facility]). A full list of pharmacies is available at the [place] Board of Pharmacy website, but calling your local pharmacy is likely to be successful. You can buy it for $50-100 (insurance may cover it) and have it ready for another person. What is Project CORETTA? Demetrio HITCHCOCK is a community-based drug overdose prevention and education project. Participants receive training on: Recognizing the signs and symptoms of overdose Distinguishing between different types of overdose Performing rescue breathing Calling emergency medical services Administering intranasal Naloxone Demetrio HITCHCOCK is named in memory of Estella Mcneil, who struggled with addiction for years before dying of a witnessed opioid overdose on March 01, 2009. Demetrio HITCHCOCK is an initiative of the [facility] Opiate Task Force and is funded in part by the [facility] Alcohol, Drug Addiction and Mental Health (ADM) Services [facility] Alcohol, Drug Addiction & Mental Health Services [place] [id number] [email or web address] WALK-IN HOURS: Tuesdays (every hour) from 3pm - 6pm THIS IS A FREE SERVICE TO ALL PARTICIPANTS Deaths Avoided With Naloxone A community-based drug overdose prevention and education project Emergency first aid for a suspected opioid overdose: If a person is exhibiting symptoms of an opioid overdose, these following life- saving measures should be taken immediately: Check to see if they can respond Give them a light shake, yell their name. Any response? If you don't get a response, try a STERNUM RUB (rub your knuckles in the middle of their chest where the ribs meet for 10 seconds). Call You do not need to mention drugs when you call - provide basic information: Give the address and location. Say I have a person who has stopped breathing and is unresponsive. Perform Rescue Breathing Make sure nothing is in their mouth. Tilt head back, lift chin & pinch nose. Start by giving two breaths making sure the chest rises. If the chest does not rise, tilt the head back more and make sure you are plugging their nose. Give Naloxone Assemble the nasal spray Naloxone. Reed half (1 ml) up one nostril, half up the other. Continue rescue breathing, one breath every 5 seconds, while waiting for the Naloxone to take effect. Give a second dose of Naloxone if there is no response in 2-5 minutes. After Naloxone Continue to monitor their respirations and perform rescue breathing if respirations are below 10 breaths a minute. Stay with them until help arrives. The Naloxone may wear off and the victim could start to overdoseagain. What is Naloxone? Naloxone (also known as Narcan) is a medication that can reverse an overdose that is caused by an opioid drug. When administered during an overdose, Naloxone blocks the effects of opioids on the brain and restores breathing within two to eight minutes. Naloxone has been used safely by emergency medical coding instructor for more than 40 years and has only one function: to reverse the effects of opioids on the brain and respiratory system in order to prevent . Naloxone has no potential for abuse. If Naloxone is given to a person who is not experiencing an opioid overdose, it is harmless. If naloxone is administered to a person who is dependent on opioids, it will produce withdrawal symptoms. Withdrawal, although uncomfortable, is not life- threatening. Naloxone does not reverse overdoses that are caused by non-opioid drugs, such as cocaine, benzodiazepines (e.g. Xanax, Klonopin and Valium), methamphetamines, or alcohol. What are some common opioids? Opioids include both heroin and prescription pain medications. Some common opioid pain medications include: hydrocodone (Lorcet and Vicodin), oxycodone (Percocet), long acting opioids (Oxycontin, MS Contin, Methadone), and patches (Fentanyl). Other brand name opioid pain medications include Opana ER, Avinza and Junie. How do I know if someone is overdosing? A person who is experiencing an overdose may have the following symptoms: breathing is slow and shallow (less than 10 breaths per minute) or has stopped; vomiting; face is pale and clammy; blue or grayish lips and fingernails; slow, erratic, or no pulse; choking or loud snoring noises; will not respond to shaking or sternum rub; skin may turn fulton, blue, or ashen. An overdose is a medical emergency! Call 01-28-1 immediately and begin first aid. What are the risk factors for an opioid overdose? Mixing Drugs Many overdoses occur when people mix heroin or prescription opioids with alcohol, benzodiazepines, or antidepressants. Alcohol and benzodiazepines (such as Xanax, Klonopin and Valium) are particularly dangerous because, like opioids, these substances impact an individual's ability to breathe. Lowered Tolerance Tolerance is your body's ability to process a drug. Tolerance changes over time so that you may need more of a drug to feel its effects. However, tolerance can decrease rapidly when someone has takena break from using a substance whether intentionally (in treatment) or unintentionally (in [facility] or the hospital). Taking opioids after a period of not using can increase the risk of a fatal overdose. Health Problems Your physical health impacts your body's ability to manage opioids. Since opioids can impair your ability to breathe, if you have asthma or other breathing problems you are at higher risk for an overdose. Individuals with liver or kidney disease or dysfunction, heart disease or HIV/AIDS are also atan increased risk of an overdose. Previous Overdose A person who has experienced a nonfatal overdose in the past, has an increased risk of a fatal overdose in the future. * Mary Hudson RN - 08/13/2024 12:35 PM EDT The following are the next steps in your Substance use Treatment Plan: Below are additional resources that you may find beneficial in your treatment: 12-Step: Heroin Anonymous: Sung Merino: [phone], Fadi Mclaughlin: [phone] Narcotics Anonymous: 888-GET_HOPE (412-634-6690) [employer] Alcohol Anonymous: [employer] William Anon: 530.444.1584: 12-step program for families & friends of people with addiction. CRISIS: Homeless Hotline: 503.683.3139 [facility] HOMELESS SHELTERS [place] [facility] ([facility] 20/12 line-20/12 OFFICE: [phone] [facility]: [address] [place] [address] ([phone] (24 Hours) Domestic Violence help line anytime: 471.747.5794 Crisis Hotline: 20/12- 246.330.1702 ADM Addiction Helpline: 583.102.3900 (available 8:30 AM to 4:00 PM ) 2-1-1 2-1-1 helps people across [facility] find local resources when they don't know where to turn [facility]. We are available 24 hours a day, 7 days a week. For help, simply dial 06-30- to speak to one of our trained professionals. Methadone Treatment: [facility] [place], [place] [phone] [place], [place] [phone] [facility] [place], [place] [phone] [place] [phone] [facility] - [phone] ext. [phone] or [phone] [facility] - [place], [place] [phone] [facility] ([place]) [phone] DETOX TREATMENT: [facility], [place], [place] [phone] /ADM Crisis Center: anytime @ [phone] for alcohol & drug addiction help. [facility], [place], [place] [phone] [facility] [place]: [phone] [place], [place], [place]: [phone], [place], [place]: [phone] [place], [place] [phone] Adolescent detox [place], [place] [phone] [facility] [place], [place]: [phone] [facility], [place], [place] [phone] ext. [phone] [facility], [place], [place] BH & detox & Sober living [phone] [place], [place] (pt. must be medically cleared prior to admission in ED) Laurent POLK [facility], [place], [place] [phone] OUTPATIENT TREATMENT: [facility] @ [place], [place] [phone]. 1st Step MAT Program @ [facility] ED: [phone] 1st Step MAT Program @ [facility] ED: [phone] Intensive Outpatient Programs- [place], [place] [phone] [place], [place] [phone] [facility] [place] [phone] [facility] Addiction Treatment: [place], [place] [phone] or [phone]. [facility]: [phone] [facility] [place]: [phone], [place]: [phone] [facility], [place]: [phone] [facility], [place], [place]: [phone] [facility], [place]: [phone], [place]: [phone] [facility] [place]: [phone] [facility], [facility] & Sober living [phone] [facility], [place], [place] [phone] [facility] [address] Behavioral Health Services: [phone] Behavioral Health Services: [facility]: Agyty-[phone], Efren/Zxguta-[phone], [place]- [phone] [facility], [place]: [phone], [place]: [phone] [facility], [place], [place] [phone] [facility], [place], [place] [phone] [facility], [place], [place] [phone], inpantera services, dual dx. Tx. with detox. [facility] SERVICES: [facility] [place], [place] [phone] [facility], [place], [place] [phone] [facility] [phone] [facility] SERVICES: [address] ([address]): [place], [place] [phone] [facility] Sophy OZUNA & [place]: [phone] RESIDENTIAL TREATMENT FACILITIES: [facility] House: inpt. Or outpt. - [phone] [facility] [place], [place], [place] [phone] [place], [place] [phone] [facility] (CATS) @ [facility] [phone] [facility] Residential tx., [place], [place] [phone] (admission coordinated by -Ariadna Sheffield ext [phone]) [facility] Tx., [place], [place]: [phone]; Men's services inpt. & women services -Outpt. [facility], [place], [place] [phone] [facility], [place], [place] [phone] [facility], [place], [place] [phone] [facility], [place], [place] [phone] [facility], [place], [place] [phone] [facility] - [place], [place] [phone] [facility] Services, [place], [place] [phone] [place], [place] [phone] [facility], [facility] & detox & Sober living [phone] OTHER SERVICES: [employer] [facility] Service: [phone] [facility]: [phone] ext. [phone] Medicaid Health Coverage: PLDT JFS: [phone] * Edgar Powers MD - 08/13/2024 9:31 AM EDT Emergency Department Encounter Pt Name: Mayito Forbes Birthdate 1985 Date of evaluation: 08/13/2024 Provider: Edgar Powers MD CHIEF COMPLAINT Chief Complaint Patient presents with Addiction Problem Pt presents to ED for fentanyl detox. Pt reports last use was 3 days ago. Pt states I was using acouple shots. Pt reports he had relapsed for 1.5 weeks. Pt reports extreme cramping. HISTORY OF PRESENT ILLNESS HPI Mayito Forbes is a 39 y.o. male with history that includes fentanyl addiction, last used 3 days ago, uses intravenously, presenting to the Emergency Department for withdrawal symptoms. Has had cramping all over his body, vomiting and diarrhea. The cramping is severe enough where he indicates an inability to open his mouth to talk or make a fist. There is a friend at bedside who provides much of the history. Patient denies use of other drugs or alcohol. He is currently in a detox program and receives Vivitrol. He last received Vivitrol on 07/16/2024 he says. He was due for another dose today but did not receive it. Nursing Notes were reviewed. History reviewed. No pertinent past medical history. REVIEW OF SYSTEMS Several elements of the ROS reviewed and otherwise acutely negative except as in the HPI. PHYSICAL EXAM ED Triage Vitals [08/13/24 0937] Temp Heart Rate Resp BP (!) 35.9 C (96.6 F) (!) 127 (!) 32 (!) 158/106 SpO2 Temp Source Heart Rate Source Patient Position 99 % Temporal Monitor Sitting BP Location FiO2 (%) Right arm -- Physical Exam Vitals and nursing note reviewed. Constitutional: General: He is not in acute distress. Appearance: He is well-developed. He is ill-appearing. HENT: Head: Normocephalic and atraumatic. Mouth/Throat: Mouth: Mucous membranes are dry. Eyes: Conjunctiva/sclera: Conjunctivae normal. Pupils: Pupils are equal, round, and reactive to light. Cardiovascular: Rate and Rhythm: Regular rhythm. Tachycardia present. Heart sounds: No murmur heard. Pulmonary: Effort: Pulmonary effort is normal. No respiratory distress. Breath sounds: Normal breath sounds. Abdominal: Palpations: Abdomen is soft. Tenderness: There is no abdominal tenderness. Musculoskeletal: General: No swelling. Cervical back: Neck supple. Skin: General: Skin is warm and dry. Neurological: Mental Status: He is alert. Comments: Able to range his elbows but unable to make fists. He is moving all extremities spontaneously. Psychiatric: Mood and Affect: Mood is anxious. EMERGENCY DEPARTMENT COURSE and DIFFERENTIAL DIAGNOSIS/MDM: Differential diagnoses include: Fentanyl withdrawal. Will obtain a COWS score and treat symptomatically. Will check electrolytes, ECG, blood counts, drug screen, renal and liver function tests, urinalysis in anticipation of the possibility of detox admission (patient is unable to tell me now if he wishes to pursue inpatient detox at [facility]). I considered serotonin syndrome but this would not make sense clinically especially in the absence of other medication use apart from Vivitrol. ED course: ED Course as of 08/13/24 142TueAug 13, 2024 0955 I interpreted the ECG as showing sinus rhythm 87 bpm with normal QTc of 427 ms, no findings convincing for acute ischemia [AK] 1149 Patient vomiting, ordered Zofran IV [AK] 1259 Had been due for vivitrol today, last received a month ago he thinks on 07/16/2024. I discussedthe case with Dr. Conway who accepts patient for admission to detox. [AK] ED Course User Index [AK] Edgar Powers MD Diagnoses as of 08/13/24 142 Opiate withdrawal (HCC) ED medications managed: Medications cloNIDine (Catapres) tablet 0.1 mg (has no administration in time range) cloNIDine (Catapres) tablet 0.3 mg (0.3 mg Oral Given 08/13/24 1007) Followed by cloNIDine (Catapres) tablet 0.2 mg (has no administration in time range) Followed by cloNIDine (Catapres) tablet 0.1 mg (has no administration in time range) Followed by cloNIDine (Catapres) tablet 0.05 mg (has no administration in time range) cloNIDine (Catapres) tablet 0.1 mg (0.1 mg Oral Given 08/13/24 1008) sodium chloride 0.9 % bolus 1,000 mL (0 mL IntraVENous Stopped 08/13/24 1127) ondansetron (Zofran) injection 4 mg (4 mg IntraVENous Given 08/13/24 1243) Reassessment: Significant clinical improvement with above medications. Tolerating p.o. Did complainof some chest and and therefore added on a chest x-ray. Chronic conditions and social determinants of health affecting care: Drug addiction DISPOSITION/PLAN Admit 08/13/2024 02:14:16 PM Edgar Powers MD Emergency Medicine Edgar Powers MD 08/14/24 0706 * Cynthia Puckett DO - 08/13/2024 9:31 AM EDT Emergency Department Encounter Location: [facility] ED Patient: Mayito Forbes : 1985 Date of evaluation: 08/13/2024 ED Provider: Cynthia Puckett DO Time received sign-out: 1499 Mayito Forbes was checked out to me by Dr. Edgar Powers. Please see his/her initial documentation for details of the patient's initial ED presentation, physical exam and completed studies. In brief, Mayito Forbes is a 39 y.o. adult that presented to the emergency department Seeking detox from fentanyl. I have reviewed and interpreted all of the currently available lab results and diagnostics from this visit: Results for orders placed or performed during the hospital encounter of 08/13/24 ECG 12 lead Collection Time: 08/13/24 9:49 AM Result Value Ref Range Heart Rate 78 bpm QRSD Interval 82 ms QT Interval 375 ms QTC Interval 427 ms P [place] 75 degrees QRS [place] 40 degrees T Wave [place] 66 degrees NH Interval 164 ms SARS-CoV-2 Antigen Collection Time: 08/13/24 10:15 AM Specimen: Nasal; Swab Result Value Ref Range SARS-CoV-2 Antigen Negative Negative CBC auto differential Collection Time: 08/13/24 10:26 AM Result Value Ref Range Auto WBC 11.6 (H) 3.6 - 10.7 10*3/uL RBC 5.44 4.40 - 5.90 10*6/uL Hemoglobin 16.9 13.0 - 18.0 g/dL Hematocrit 45.9 40.0 - 52.0 % MCV 84.4 77.0 - 99.0 fL MCH 31.1 26.0 - 34.0 pg MCHC 36.8 (H) 30.5 - 36.0 % RDW 11.7 11.5 - 15.0 % Platelets 392 140 - 440 10*3/uL MPV 8.9 (L) 9.0 - 12.7 fL nRBC 0.0 0.0 - 2.0 /100 WBCs Neutrophils Relative 83.8 (H) 38.0 - 82.0 % Lymphocytes Relative 9.1 (L) 15.0 - 45.0 % Monocytes Relative 6.2 5.0 - 13.0 % Eosinophils Relative 0.2 0.0 - 6.0 % Basophils Relative 0.3 0.0 - 2.0 % Immature Grans % 0.4 0.0 - 2.0 % Neutrophils Absolute 9.7 (H) 1.8 - 7.5 10*3/uL Lymphocytes Absolute 1.1 1.0 - 4.3 10*3/uL Monocytes Absolute 0.7 0.0 - 0.9 10*3/uL Eosinophils Absolute 0.0 0.0 - 0.5 10*3/uL Basophils Absolute 0.0 0.0 - 0.2 10*3/uL Immature Grans Absolute 0.1 (H) <0.1 10*3/uL Ethanol Collection Time: 08/13/24 10:26 AM Result Value Ref Range ETHANOL IN SER/PLAS <10 <10 mg/dL Comprehensive metabolic panel Collection Time: 08/13/24 10:26 AM Result Value Ref Range SODIUM 138 136 - 145 mmol/L POTASSIUM 3.7 3.5 - 5.1 mmol/L CHLORIDE 106 98 - 107 mmol/L CARBON DIOXIDE 16 (L) 22 - 29 mmol/L ANION GAP 16 (H) 3 - 13 mmol/L UREA NITROGEN 13 8 - 21 mg/dL CREATININE 0.80 0.72 - 1.25 mg/dL GLUCOSE 109 (H) 74 - 100 mg/dL CALCIUM 9.3 8.4 - 10.2 mg/dL AST (SGOT) 33 <34 U/L ALT 38 <40 U/L ALKALINE PHOSPHATASE 109 40 - 150 U/L ALBUMIN 4.3 3.5 - 5.0 g/dL BILIRUBIN, TOTAL 0.8 <1.2 mg/dL TOTAL PROTEIN 7.8 6.4 - 8.3 g/dL eGFR >90.0 >60.0 mL/min/1.73m*2 Complete Urinalysis Collection Time: 08/13/24 12:36 PM Result Value Ref Range Color, Urine Yellow Lt. Yellow Clarity, Urine Clear Clear pH, Urine 7.5 5.0 - 8.0 pH Leukocytes, Urine Negative Negative Raina/uL Nitrite, Urine Negative Negative Protein, Urine 50 (A) Negative mg/dL Glucose, Urine Normal Normal (<70) mg/dL Bilirubin, Urine Negative Negative mg/dL Ketones, Urine >150 (A) Negative mg/dL Urobilinogen, Urine Normal Normal (0-1) mg/dL Blood, Urine Negative Negative mg/dL RBC, Urine 0-2 0 - 2 /HPF WBC, Urine 0-2 0 - 5 /HPF Squamous Epithelial, Urine 0-2 3 - 5 /HPF Bacteria, Urine Negative Negative /HPF Mucus, Urine Few Negative /LPF SPECIFIC GRAVITY OF URINE (NUMERIC) 1.030 1.005 - 1.030 Drug screen panel, emergency Collection Time: 08/13/24 12:36 PM Result Value Ref Range AMPHETAMINE SCREEN Negative BARBITURATES SCREEN Negative BENZODIAZEPINE SCREEN Negative COCAINE METAB. SCREEN Negative METHADONE SCREEN Negative OPIATES SCREEN Negative OXYCODONE SCREEN Negative PHENCYCLIDINE SCREEN Negative FENTANYL SCREEN, UR QUAL Positive POCT glucose meter Collection Time: 08/13/24 3:52 PM Result Value Ref Range Glucose 91 70 - 100 mg/dL XR chest 1 view Final Result 1. No evidence of an acute cardiopulmonary process. Report Dictated on Electronically Signed By: Jt Zaragoza MD Electronically Signed Date/Time: 08/13/2024 2:49 PM EDT Final ED Course and MDM: Mayito Forbes is a 39 y.o. whose care was signed out to me by the outgoing provider. In brief, patient presents seeking detox from fentanyl. Presents in acute withdrawal. Was initially admitted to detox over at [facility] however patient's insurance is not in network here. Patient's insurance is in network only at [facility]. His labs are notable for mild leukocytosis 11.6, elevated ketones in his urine, UDS positive for fentanyl, no other drugs on board. Alcohol was negative. Patient received multiple medications for his opioid withdrawal. His chest x-ray was normal as well. I spoke with Dr. Montoya from [facility] who accepted the patient for transfer Medications venlafaxine XR (Effexor XR) 24 hr capsule 225 mg (has no administration in time range) baclofen (Lioresal) tablet 10 mg (10 mg Oral Given 08/13/24 1609) dicyclomine (Bentyl) capsule 10 mg (has no administration in time range) gabapentin (Neurontin) capsule 300 mg (300 mg Oral Given 08/13/24 1609) ibuprofen tablet 400 mg (has no administration in time range) hydrOXYzine pamoate (Vistaril) capsule 50 mg (has no administration in time range) traMADol (Ultram) tablet 100 mg (100 mg Oral Given 08/13/24 1609) Followed by traMADol (Ultram) tablet 100 mg (has no administration in time range) Followed by traMADol (Ultram) tablet 100 mg (has no administration in time range) promethazine (Phenergan) tablet 12.5 mg (has no administration in time range) Or promethazine (Phenergan) injection 12.5 mg (has no administration in time range) Or promethazine (Phenergan) suppository 12.5 mg (has no administration in time range) traZODone (Desyrel) tablet 50 mg (has no administration in time range) naloxone (Narcan) injection 0.4 mg (has no administration in time range) cloNIDine (Catapres) tablet 0.1 mg (0.1 mg Oral Given 08/13/24 1008) sodium chloride 0.9 % bolus 1,000 mL (0 mL IntraVENous Stopped 08/13/24 1127) ondansetron (Zofran) injection 4 mg (4 mg IntraVENous Given 08/13/24 1243) I Cynthia Puckett DO am the stitchdowns toe former of record. Final Impression 1. Opiate withdrawal (HCC) DISPOSITION Transfer To Another Facility 08/13/2024 06:22:48 PM (Please note that portions of this note may have been completed with a voice recognition program. Efforts were made to edit the dictations but occasionally words are mis-transcribed.) Cynthia Puckett DO [employer] Cynthia Puckett DO 08/13/24 1824 * Edgar Powers MD - 08/13/2024 9:31 AM EDT I re-inherited this patient on my shift today. After signout, it was determined that his insurance would not support and admission to [facility]. Therefore he was accepted at [facility]. However no beds have been available and he is now awaiting a bed. On my reassessment at around 1 PM today, patient looks dramatically better. He is reporting resolution of his withdrawal symptoms. He does not wish to wait any longer with no bed insight at [facility]. He wishes to be discharged. He is feeling much improved. Declines prescription for clonidine.Will prescribe Zofran. Edgar Powers MD 08/14/24 1320 documented in this encounterSParkview Health Montpelier [id number] Emergency department Note* Ursula Denney RN - 08/13/2024 6:36 PM EDT Pt continues to have intervals of sleeping and then vomiting. PRN to be adminsitered [facility] HospitalIvmvbv06-23-5301 Note* Care Coordination - Seven Maldonado RN - 08/13/2024 4:08 PM EDT Notified that patient was OON with insurance and needs transferred to in-network facility when medically stable. Did discuss with ER attending and patient already admitted to [facility]. Did send epic chat updating him of this and provided him with in-network facility and their contact information.. [facility] [id number] Note* Care Coordination - Seven Maldonado RN - 08/13/2024 4:08 PM EDT Notified that patient was OON with insurance and needs transferred to in-network facility when medically stable. Did discuss with ER attending and patient already admitted to [facility]. Did send epic chat updating him of this and provided him with in-network facility and their contact information.. [facility] [id number] Miscellaneous Notes* Care Coordination - Seven Maldonado RN - 08/13/2024 4:08 PM EDT Notified that patient was OON with insurance and needs transferred to in-network facility when medically stable. Did discuss with ER attending and patient already admitted to [facility]. Did send epic chat updating him of this and provided him with in-network facility and their contact information.. documented in this [facility]03-17-2025 Emergency department Note* Mary Hudson RN - 08/13/2024 12:37 PM EDT Project CORETTA is available STATE-WIDE. Narcan/Naloxone is available WITHOUT prescription at most [place] [facility], including [facility], [facility], [facility], [employer], and others. It has a cost, but there is a free program through [facility] (and 47 other [facility]). A full list of pharmacies is available at the [place] Board of Pharmacy website, but calling your local pharmacy is likely to be successful. You can buy it for $50-100 (insurance may cover it) and have it ready for another person. What is Demetrio HITCHCOCK? Demetrio HITCHCOCK is a community-based drug overdose prevention and education project. Participants receive training on: Recognizing the signs and symptoms of overdose Distinguishing between different types of overdose Performing rescue breathing Calling emergency medical services Administering intranasal Naloxone Demetrio HITCHCOCK is named in memory of Estella Mcneil, who struggled with addiction for years before dying of a witnessed opioid overdose on March 01, 2009. Demetrio HITCHCOCK is an initiative of the [facility] Opiate Task Force and is funded in part by the [facility] Alcohol, Drug Addiction and Mental Health (ADM) Services [facility] Alcohol, Drug Addiction & Mental Health Services [facility] Public Health [address] [place], [place] [address] [email or web address] WALK-IN HOURS: Tuesdays (every hour) from 3pm - 6pm THIS IS A FREE SERVICE TO ALL PARTICIPANTS Deaths Avoided With Naloxone A community-based drug overdose prevention and education project Emergency first aid for a suspected opioid overdose: If a person is exhibiting symptoms of an opioid overdose, these following life- saving measures should be taken immediately: Check to see if they can respond Give them a light shake, yell their name. Any response? If you don't get a response, try a STERNUM RUB (rub your knuckles in the middle of their chest where the ribs meet for 10 seconds). Call You do not need to mention drugs when you call - provide basic information: Give the address and location. Say I have a person who has stopped breathing and is unresponsive. Perform Rescue Breathing Make sure nothing is in their mouth. Tilt head back, lift chin & pinch nose. Start by giving two breaths making sure the chest rises. If the chest does not rise, tilt the head back more and make sure you are plugging their nose. Give Naloxone Assemble the nasal spray Naloxone. Reed half (1 ml) up one nostril, half up the other. Continue rescue breathing, one breath every 5 seconds, while waiting for the Naloxone to take effect. Give a second dose of Naloxone if there is no response in 2-5 minutes. After Naloxone Continue to monitor their respirations and perform rescue breathing if respirations are below 10 breaths a minute. Stay with them until help arrives. The Naloxone may wear off and the victim could start to overdoseagain. What is Naloxone? Naloxone (also known as Narcan) is a medication that can reverse an overdose that is caused by an opioid drug. When administered during an overdose, Naloxone blocks the effects of opioids on the brain and restores breathing within two to eight minutes. Naloxone has been used safely by emergency medical coding instructor for more than 40 years and has only one function: to reverse the effects of opioids on the brain and respiratory system in order to prevent . Naloxone has no potential for abuse. If Naloxone is given to a person who is not experiencing an opioid overdose, it is harmless. If naloxone is administered to a person who is dependent on opioids, it will produce withdrawal symptoms. Withdrawal, although uncomfortable, is not life- threatening. Naloxone does not reverse overdoses that are caused by non-opioid drugs, such as cocaine, benzodiazepines (e.g. Xanax, Klonopin and Valium), methamphetamines, or alcohol. What are some common opioids? Opioids include both heroin and prescription pain medications. Some common opioid pain medications include: hydrocodone (Lorcet and Vicodin), oxycodone (Percocet), long acting opioids (Oxycontin, MS Contin, Methadone), and patches (Fentanyl). Other brand name opioid pain medications include Opana ER, Avinza and Junie. How do I know if someone is overdosing? A person who is experiencing an overdose may have the following symptoms: breathing is slow and shallow (less than 10 breaths per minute) or has stopped; vomiting; face is pale and clammy; blue or grayish lips and fingernails; slow, erratic, or no pulse; choking or loud snoring noises; will not respond to shaking or sternum rub; skin may turn fulton, blue, or ashen. An overdose is a medical emergency! Call immediately and begin first aid. What are the risk factors for an opioid overdose? Mixing Drugs Many overdoses occur when people mix heroin or prescription opioids with alcohol, benzodiazepines, or antidepressants. Alcohol and benzodiazepines (such as Xanax, Klonopin and Valium) are particularly dangerous because, like opioids, these substances impact an individual's ability to breathe. Lowered Tolerance Tolerance is your body's ability to process a drug. Tolerance changes over time so that you may need more of a drug to feel its effects. However, tolerance can decrease rapidly when someone has takena break from using a substance whether intentionally (in treatment) or unintentionally (in [facility] or the hospital). Taking opioids after a period of not using can increase the risk of a fatal overdose. Health Problems Your physical health impacts your body's ability to manage opioids. Since opioids can impair your ability to breathe, if you have asthma or other breathing problems you are at higher risk for an overdose. Individuals with liver or kidney disease or dysfunction, heart disease or HIV/AIDS are also atan increased risk of an overdose. Previous Overdose A person who has experienced a nonfatal overdose in the past, has an increased risk of a fatal overdose in the future. Providence [id number] Emergency department Note* Mary Hudson RN - 08/13/2024 12:35 PM EDT The following are the next steps in your Substance use Treatment Plan: Below are additional resources that you may find beneficial in your treatment: 12-Step: Heroin Anonymous: Sung Merino: [phone], Fadi Mclaughlin: [phone] Narcotics Anonymous: 888-GET_HOPE (214-109-3174) Reciclata.org Alcohol Anonymous: akronaa.org William Anon: 997.783.4957: 12-step program for families & friends of people with addiction. CRISIS: Homeless Hotline: 186.563.2172 [facility] HOMELESS SHELTERS [place] [facility] (Veterans) 20/12 line-20/12 OFFICE: [phone] [facility]: [address] [place] [address] [phone] (24 Hours) Domestic Violence help line anytime: 578.297.7010 Crisis Hotline: 20/12- 281.110.2835 ADM Addiction Helpline: 662.352.7033 (available 8:30 AM to 4:00 PM ) 2-1-1 2-1-1 helps people across [facility] find local resources when they don't know where to turn forhel. We are available 24 hours a day, 7 days a week. For help, simply dial -1-1 to speak to one of our trained professionals. Methadone Treatment: [facility] [place], [place] [phone] [place], [place] [phone] [facility] [place], [place] [phone] [facility] [place], [place] [phone] [facility] - [phone] ext. [phone] or [phone] [facility] - [place], [place] [phone] [facility] Services ([place]) [phone] DETOX TREATMENT: Wendy Hoff [facility] [place], [place] [phone] /ADM Crisis Center: anytime @ [phone] for alcohol & drug addiction help. [facility], [place], [place] [phone] [facility] [place]: [phone] [place]: [phone], [facility] [place]: [phone] [place], [place] [phone] Adolescent detox [place], [place] [phone] [facility] [place] [facility] [place]: [phone] [facility], [place], [place] [phone] ext. [phone] [facility], [facility] & detox & Sober living [phone] [place], [place] (pt. must be medically cleared prior to admission in ED) Praxis LANDMARK [facility], [place], [place] [phone] OUTPATIENT TREATMENT: [facility] Addiction Health @ [place], [place] [phone]. 1st Step MAT Program @ [facility] ED: [phone] 1st Step MAT Program @ [facility] ED: [phone] Intensive Outpatient Programs- [facility] [place] [phone] [place] [address] [facility] Porfirio [place], [place] [phone] [facility] Addiction Treatment: [place], [place] [phone] or [phone]. [facility]: [phone] [facility], [place]: [phone], [place]: [phone] [facility], [place], [place]: [phone] [facility], [place], [place]: [phone] [facility], [place]: [phone], [place]: [phone] [facility]. [place]: [phone] [facility], [facility] & Sober living [phone] [facility], [place], [place] [phone] [facility] [address] Behavioral Health Services: [phone] Behavioral Health Services: [facility]: [phone]-[phone], [phone], [place]- [phone] [facility], [place]: [phone], [place]: [phone] [facility] Behavior[facility] Health, [place], [place] [phone] [facility], [place], [place] [phone] [facility] [place], [place] [phone], karel services, dual dx. Tx. with detox. [facility] SERVICES: [place], [place] [phone] Alternative Paths[place], [place] [phone] [facility] [phone] [facility] SERVICES: One Eighty (180): [place] [phone] [place] Sophy OZUNA & [place]: [phone] RESIDENTIAL TREATMENT FACILITIES: [facility] House: inpt. Or outpt. - [phone] [facility] [place], [place], [place] [phone] [place], [place] [phone] Community Assessment & Treatment Services (CATS) @ [facility] [phone] [facility] Residential tx., [place], [place] [phone] (admission coordinated by ADM Nena Sheffield ext [phone]) [facility] Res[facility] Tx., [place], [place]: [phone]; Men's services inpt. & women services -Outpt. [facility], [place], [place] [phone] [facility], [place], [place] [phone] [facility], [place], [place] [phone] [facility], [place], [place] [phone] [facility], [place], [place] [phone] [facility] - [place], [place] [phone] [facility] Services, [place], [place] [phone] [place], [place] [phone] [facility], [facility] & detox & Sober living [phone] OTHER SERVICES: [employer] - Peer Trim Sawyer Service: [phone] [facility]: [phone] ext. [phone] Medicaid Health Coverage: [facility] JFS: [phone] Providence HospitalFxtohl83-70-3452 NoteThe following are the next steps in your Substance use Treatment Plan: Below are additional resources that you may find beneficial in your treatment: 12-Step: Heroin Anonymous: Sung Merino: [phone], Fadi Mclaughlin: [phone] Narcotics Anonymous: 888-GET_HOPE (294-160-6645) nabuckeye.org Alcohol Anonymous: akronaa.org William Anon: [phone]: 12-step program for families & friends of people with addiction. CRISIS: Homeless Hotline: 707.928.6554 [facility] [place] [facility] ([facility]) 20/12 line-20/12 OFFICE: [phone] [facility]: [address] [facility], [place] [address] [phone] (24 Hours) Domestic Violence help line anytime: 484.938.9392 Crisis Hotline: 20/12- 915.101.3426 ADM Addiction Helpline: 347.527.3356 (available 8:30 AM to 4:00 PM ) 2-1 helps people across [facility] find local resources when they don't know where to turn for help. We are available 24 hours a day, 7 days a week. For help, simply dial to speak to one of our trained professionals. Methadone Treatment: [facility] [place], [place] [phone] [place], [place] [phone] [facility] [place], [place] [phone] [place], [place] [phone] [facility] - [phone] ext. [phone] or [phone] [facility] - [place], [place] [phone] [facility] Services ([place]) [phone] DETOX TREATMENT: Wendy Hoff [facility] Services, [place], [place] [phone] /[facility] Crisis Center: anytime @ [phone] for alcohol & drug addiction help. [facility], [place] [phone] [facility] [place]: [phone] [place]: [phone], [facility] [place]: [phone] [facility], [place] [phone] Adolescent detox [place], [place] [phone] [facility] [place] - [place], [place]: [phone] [facility], [place], [place] [phone] ext. [phone] [facility], [facility] & detox & Sober living [phone] [place], [place] (pt. must be medically cleared prior to admission in ED) [facility] Recovery, [place], [place] [phone] OUTPATIENT TREATMENT: [facility] Health @ [place], [place] [phone]. 1st Step MAT Program @ [facility] ED: [phone] 1st Step MAT Program @ [facility] ED: [phone] Intensive Outpatient Programs- [facility] [place], [place] [phone] [place], [place] [phone] [facility] [place], [place] [phone] [facility] Addiction Treatment: [place], [place] [phone] or [phone]. [facility]: [phone] [facility], [place]: [phone], [place]: [phone] [facility] [place]: [phone] [facility], [place], [place], [place]: [phone] [facility], [place]: [phone], [place]: [phone] Viral Brown [place]. [place]: [phone] [facility], [facility] & Sober living [phone] [facility], [place], [place] [phone] [facility] [address] Behavioral Health Services: [phone] Behavioral Health Services: [facility]: [phone], [phone], [place]- [phone] [facility], [place]: [phone], [place]: [phone] [facility] Behavioral [place], [place] [phone] [facility], [place], [place] [phone] [facility], [place], [place] [phone], karel services, dual dx. Tx. with detox. [facility] SERVICES: [place] Nimesh Davis [place], [place] [phone] [facility], [place] [phone] [facility] [phone] [facility] SERVICES: One [employer]y (180): [place], [place] [phone] [place] MAT, Sophy & [place]: [phone] RESIDENTIAL TREATMENT FACILITIES: [facility] House: inpt. Or outpt. - [phone] [facility], [place], [place] [phone] [place], [place] [phone] Community Assessment & Treatment Services (CATS) @ [facility] [phone] [facility] [place], [place] [phone] (admission coordinated by ADM -Ariadna Sheffield ext [phone]) [facility], [place], [place]: [phone]; Men's services inpt. & women services - Outpt. [place], [place] [phone] [facility], [place], [place] [phone] [facility] [place], [place] [phone] [facility], [place], [place] [phone] [facility] [place], [place] [phone] [facility] - [place], [place] [phone] [facility], [place], [place] [phone] [place], [place] [phone] [facility] & detox & Sober living [phone] OTHER SERVICES: [facility] - Peer Trim Sawyer Service: [phone] (more content not included)...[facility]03-17-2025 Physician Emergency department Note* Edgar Powers MD - 08/13/2024 9:31 AM EDT Emergency Department Encounter Pt Name: Mayito Forbes Birthdate 1985 Date of evaluation: 08/13/2024 Provider: Edgar Powers MD CHIEF COMPLAINT Chief Complaint Patient presents with Addiction Problem Pt presents to ED for fentanyl detox. Pt reports last use was 3 days ago. Pt states I was using acouple shots. Pt reports he had relapsed for 1.5 weeks. Pt reports extreme cramping. HISTORY OF PRESENT ILLNESS HPI Mayito Forbes is a 39 y.o. male with history that includes fentanyl addiction, last used 3 days ago, uses intravenously, presenting to the Emergency Department for withdrawal symptoms. Has had cramping all over his body, vomiting and diarrhea. The cramping is severe enough where he indicates an inability to open his mouth to talk or make a fist. There is a friend at bedside who provides much of the history. Patient denies use of other drugs or alcohol. He is currently in a detox program and receives Vivitrol. He last received Vivitrol on 07/16/2024 he says. He was due for another dose today but did not receive it. Nursing Notes were reviewed. History reviewed. No pertinent past medical history. REVIEW OF SYSTEMS Several elements of the ROS reviewed and otherwise acutely negative except as in the HPI. PHYSICAL EXAM ED Triage Vitals [08/13/24 0937] Temp Heart Rate Resp BP (!) 35.9 C (96.6 F) (!) 127 (!) 32 (!) 158/106 SpO2 Temp Source Heart Rate Source Patient Position 99 % Temporal Monitor Sitting BP Location FiO2 (%) Right arm -- Physical Exam Vitals and nursing note reviewed. Constitutional: General: He is not in acute distress. Appearance: He is well-developed. He is ill-appearing. HENT: Head: Normocephalic and atraumatic. Mouth/Throat: Mouth: Mucous membranes are dry. Eyes: Conjunctiva/sclera: Conjunctivae normal. Pupils: Pupils are equal, round, and reactive to light. Cardiovascular: Rate and Rhythm: Regular rhythm. Tachycardia present. Heart sounds: No murmur heard. Pulmonary: Effort: Pulmonary effort is normal. No respiratory distress. Breath sounds: Normal breath sounds. Abdominal: Palpations: Abdomen is soft. Tenderness: There is no abdominal tenderness. Musculoskeletal: General: No swelling. Cervical back: Neck supple. Skin: General: Skin is warm and dry. Neurological: Mental Status: He is alert. Comments: Able to range his elbows but unable to make fists. He is moving all extremities spontaneously. Psychiatric: Mood and Affect: Mood is anxious. EMERGENCY DEPARTMENT COURSE and DIFFERENTIAL DIAGNOSIS/MDM: Differential diagnoses include: Fentanyl withdrawal. Will obtain a COWS score and treat symptomatically. Will check electrolytes, ECG, blood counts, drug screen, renal and liver function tests, urinalysis in anticipation of the possibility of detox admission (patient is unable to tell me now if he wishes to pursue inpatient detox at [facility]). I considered serotonin syndrome but this would not make sense clinically especially in the absence of other medication use apart from Vivitrol. ED course: ED Course as of 08/13/24 142 Mon Aug 13, 2024 0955 I interpreted the ECG as showing sinus rhythm 87 bpm with normal QTc of 427 ms, no findings convincing for acute ischemia [AK] 1149 Patient vomiting, ordered Zofran IV [AK] 1259 Had been due for vivitrol today, last received a month ago he thinks on 07/16/2024. I discussedthe case with Dr. Conway who accepts patient for admission to detox. [AK] ED Course User Index [AK] Edgar Powers MD Diagnoses as of 08/13/241428 Opiate withdrawal (HCC) ED medications managed: Medications cloNIDine (Catapres) tablet 0.1 mg (has no administration in time range) cloNIDine (Catapres) tablet 0.3 mg (0.3 mg Oral Given 08/13/24 1007) Followed by cloNIDine (Catapres) tablet 0.2 mg (has no administration in time range) Followed by cloNIDine (Catapres) tablet 0.1 mg (has no administration in time range) Followed by cloNIDine (Catapres) tablet 0.05 mg (has no administration in time range) cloNIDine (Catapres) tablet 0.1 mg (0.1 mg Oral Given 08/13/24 1008) sodium chloride 0.9 % bolus 1,000 mL (0 mL IntraVENous Stopped 08/13/24 1127) ondansetron (Zofran) injection 4 mg (4 mg IntraVENous Given 08/13/24 1243) Reassessment: Significant clinical improvement with above medications. Tolerating p.o. Did complainof some chest and and therefore added on a chest x-ray. Chronic conditions and social determinants of health affecting care: Drug addiction DISPOSITION/PLAN Admit 08/13/2024 02:14:16 PM Edgar Powers MD Emergency Medicine Edgar Powers MD 08/14/24 0706 [facility] HospitalRnvtrr85-24-2333 Physician Emergency department Note* Cynthia Schulte, - 08/13/2024 9:31 AM EDT Emergency Department Encounter Location: [facility] ED Patient: Mayito Forbes : 1985 Date of evaluation: 08/13/2024 ED Provider: Cynthia Puckett DO Time received sign-out: 1500 Mayito Forbes was checked out to me by Dr. Edgar Powers. Please see his/her initial documentation for details of the patient's initial ED presentation, physical exam and completed studies. In brief, Mayito Forbes is a 39 y.o. adult that presented to the emergency department Seeking detox from fentanyl. I have reviewed and interpreted all of the currently available lab results and diagnostics from this visit: Results for orders placed or performed during the hospital encounter of 08/13/24 ECG 12 lead Collection Time: 08/13/24 9:49 AM Result Value Ref Range Heart Rate 78 bpm QRSD Interval 82 ms QT Interval 375 ms QTC Interval 427 ms P [place] 75 degrees QRS [place] 40 degrees T Wave [place] 66 degrees [place] Interval 164 ms SARS-CoV-2 Antigen Collection Time: 08/13/24 10:15 AM Specimen: Nasal; Swab Result Value Ref Range SARS-CoV-2 Antigen Negative Negative CBC auto differential Collection Time: 08/13/24 10:26 AM Result Value Ref Range Auto WBC 11.6 (H) 3.6 - 10.7 10*3/uL RBC 5.44 4.40 - 5.90 10*6/uL Hemoglobin 16.9 13.0 - 18.0 g/dL Hematocrit 45.9 40.0 - 52.0 % MCV 84.4 77.0 - 99.0 fL MCH 31.1 26.0 - 34.0 pg MCHC 36.8 (H) 30.5 - 36.0 % RDW 11.7 11.5 - 15.0 % Platelets 392 140 - 440 10*3/uL MPV 8.9 (L) 9.0 - 12.7 fL nRBC 0.0 0.0 - 2.0 /100 WBCs Neutrophils Relative 83.8 (H) 38.0 - 82.0 % Lymphocytes Relative 9.1 (L) 15.0 - 45.0 % Monocytes Relative 6.2 5.0 - 13.0 % Eosinophils Relative 0.2 0.0 - 6.0 % Basophils Relative 0.3 0.0 - 2.0 % Immature Grans % 0.4 0.0 - 2.0 % Neutrophils Absolute 9.7 (H) 1.8 - 7.5 10*3/uL Lymphocytes Absolute 1.1 1.0 - 4.3 10*3/uL Monocytes Absolute 0.7 0.0 - 0.9 10*3/uL Eosinophils Absolute 0.0 0.0 - 0.5 10*3/uL Basophils Absolute 0.0 0.0 - 0.2 10*3/uL Immature Grans Absolute 0.1 (H) <0.1 10*3/uL Ethanol Collection Time: 08/13/24 10:26 AM Result Value Ref Range ETHANOL IN SER/PLAS <10 <10 mg/dL Comprehensive metabolic panel Collection Time: 08/13/24 10:26 AM Result Value Ref Range SODIUM 138 136 - 145 mmol/L POTASSIUM 3.7 3.5 - 5.1 mmol/L CHLORIDE 106 98 - 107 mmol/L CARBON DIOXIDE 16 (L) 22 - 29 mmol/L ANION GAP 16 (H) 3 - 13 mmol/L UREA NITROGEN 13 8 - 21 mg/dL CREATININE 0.80 0.72 - 1.25 mg/dL GLUCOSE 109 (H) 74 - 100 mg/dL CALCIUM 9.3 8.4 - 10.2 mg/dL AST (SGOT) 33 <34 U/L ALT 38 <40 U/L ALKALINE PHOSPHATASE 109 40 - 150 U/L ALBUMIN 4.3 3.5 - 5.0 g/dL BILIRUBIN, TOTAL 0.8 <1.2 mg/dL TOTAL PROTEIN 7.8 6.4 - 8.3 g/dL eGFR >90.0 >60.0 mL/min/1.73m*2 Complete Urinalysis Collection Time: 08/13/24 12:36 PM Result Value Ref Range Color, Urine Yellow Lt. Yellow Clarity, Urine Clear Clear pH, Urine 7.5 5.0 - 8.0 pH Leukocytes, Urine Negative Negative Raina/uL Nitrite, Urine Negative Negative Protein, Urine 50 (A) Negative mg/dL Glucose, Urine Normal Normal (<70) mg/dL Bilirubin, Urine Negative Negative mg/dL Ketones, Urine >150 (A) Negative mg/dL Urobilinogen, Urine Normal Normal (0-1) mg/dL Blood, Urine Negative Negative mg/dL RBC, Urine 0-2 0 - 2 /HPF WBC, Urine 0-2 0 - 5 /HPF Squamous Epithelial, Urine 0-2 3 - 5 /HPF Bacteria, Urine Negative Negative /HPF Mucus, Urine Few Negative /LPF SPECIFIC GRAVITY OF URINE (NUMERIC) 1.030 1.005 - 1.030 Drug screen panel, emergency Collection Time: 08/13/24 12:36 PM Result Value Ref Range AMPHETAMINE SCREEN Negative BARBITURATES SCREEN Negative BENZODIAZEPINE SCREEN Negative COCAINE METAB. SCREEN Negative METHADONE SCREEN Negative OPIATES SCREEN Negative OXYCODONE SCREEN Negative PHENCYCLIDINE SCREEN Negative FENTANYL SCREEN, UR QUAL Positive POCT glucose meter Collection Time: 08/13/24 3:52 PM Result Value Ref Range Glucose 91 70 - 100 mg/dL XR chest 1 view Final Result 1. No evidence of an acute cardiopulmonary process. Report Dictated on Electronically Signed By: Jt Zaragoza MD Electronically Signed Date/Time: 08/13/2024 2:49 PM EDT Final ED Course and MDM: Mayito Forbes is a 39 y.o. whose care was signed out to me by the outgoing provider. In brief, patient presents seeking detox from fentanyl. Presents in acute withdrawal. Was initially admitted to detox over at [facility] however patient's insurance is not in network here. Patient's insurance is in network only at [facility]. His labs are notable for mild leukocytosis 11.6, elevated ketones in his urine, UDS positive for fentanyl, no other drugs on board. Alcohol was negative. Patient received multiple medications for his opioid withdrawal. His chest x-ray was normal as well. I spoke with Dr. Montoya from [facility] who accepted the patient for transfer Medications venlafaxine XR (Effexor XR) 24 hr capsule 225 mg (has no administration in time range) baclofen (Lioresal) tablet 10 mg (10 mg Oral Given 08/13/24 1609) dicyclomine (Bentyl) capsule 10 mg (has no administration in time range) gabapentin (Neurontin) capsule 300 mg (300 mg Oral Given 08/13/24 1609) ibuprofen tablet 400 mg (has no administration in time range) hydrOXYzine pamoate (Vistaril) capsule 50 mg (has no administration in time range) traMADol (Ultram) tablet 100 mg (100 mg Oral Given 08/13/24 1609) Followed by traMADol (Ultram) tablet 100 mg (has no administration in time range) Followed by traMADol (Ultram) tablet 100 mg (has no administration in time range) promethazine (Phenergan) tablet 12.5 mg (has no administration in time range) Or promethazine (Phenergan) injection 12.5 mg (has no administration in time range) Or promethazine (Phenergan) suppository 12.5 mg (has no administration in time range) traZODone (Desyrel) tablet 50 mg (has no administration in time range) naloxone (Narcan) injection 0.4 mg (has no administration in time range) cloNIDine (Catapres) tablet 0.1 mg (0.1 mg Oral Given 08/13/24 1008) sodium chloride 0.9 % bolus 1,000 mL (0 mL IntraVENous Stopped 08/13/24 1127) ondansetron (Zofran) injection 4 mg (4 mg IntraVENous Given 08/13/24 1243) I Cynthia Puckett DO am the [employer] former of record. Final Impression 1. Opiate withdrawal (HCC) DISPOSITION Transfer To Another Facility 08/13/2024 06:22:48 PM (Please note that portions of this note may have been completed with a voice recognition program. Efforts were made to edit the dictations but occasionally words are mis-transcribed.) Cynthia Puckett DO [employer] Cynthia Puckett DO 08/13/24 1824 [facility] [employer] Work Phone: [phone] Physician Emergency department Note* Edgar Powers MD - 08/13/2024 9:31 AM EDT I re-inherited this patient on my shift today. After signout, it was determined that his insurance would not support and admission to [facility]. Therefore he was accepted at [facility]. However no beds have been available and he is now awaiting a bed. On my reassessment at around 1 PM today, patient looks dramatically better. He is reporting resolution of his withdrawal symptoms. He does not wish to wait any longer with no bed insight at [facility]. He wishes to be discharged. He is feeling much improved. Declines prescription for clonidine.Will prescribe Zofran. Edgar Powers MD 08/14/24 1320 [id number] History of Present illness Narrative* Alyson Alexander LPN - 04/12/2024 3:04 PM EST Chart reviewed of ED follow up Seen in [facility] ED on 04/11/24 Reason: drug overdose Discharge instructions: PATIENT REFERRED TO: John Andrews MD [address] [place] [address], [address] [facility] [id number] Called number of record, no voicemail set up. Spoke to patient and he stated that his state issued insurance has lapsed and he is waiting for hisnew insurance with his employer to start. I encouraged him to call and make appointment for follow up as soon as possible. I also told him if he needed resource numbers to call Dr. Andrews's office for assistance. Patient declined ED follow up with PCP at this time. Encouraged patient to call PCP off ice if symptoms occur and/or changes mind for ED follow up appointment with PCP. That's all I have for today. Thank you for choosing [facility], always remember we have same day or telehealth visits available. We encourage you to call the office if sudden health changes occur before going to ED. We have nurses available 20/12 available to help. If patient calls back, please assist with scheduling a ED follow up appointment.. documented in this encounterSParkview Health [facility]pel[facility] [id number] NoteIMPRESSION: Sinus rhythm Abnormal R-wave progression, late transition INFERIOR Q WAVES, PROBABLY NORMAL VARIATION Compared to 11/08/2023 Electronically Signed On 04-11-2024 01:51:25 EST by James [facility]Du[facility]24 NoteSinus rhythm Abnormal R-wave progression, late transition INFERIOR Q WAVES, PROBABLY NORMAL VARIATION Compared to 11/08/2023 Electronically Signed On 04-11-2024 01:51:25 EST by James Le [facility] 04-11-2024 NoteSinus rhythm Abnormal R-wave progression, late transition INFERIOR Q WAVES, PROBABLY NORMAL VARIATION Compared to 11/08/2023 Electronically Signed On 04-11-2024 01:51:25 EST by James Le [facility] 04-11-2024 Emergency department Note* James eNil MD - 04/11/2024 12:45 AM EST EMERGENCY DEPARTMENT ENCOUNTER Pt Name: Mayito Forbes Birthdate 1985 Date of evaluation: 04/11/2024 ED Provider: James Neil MD CHIEF COMPLAINT Chief Complaint Patient presents with Drug Overdose Patient arrived to ED via EMS after being called out for a drug overdose. Endorses to smoking weed.+n/v HISTORY OF PRESENT ILLNESS (Location/Symptom, Timing/Onset, Context/Setting, Quality, Duration, Modifying Factors, Severity) Note limiting factors. I wore appropriate PPE for the entirety of this encounter. HPI Mayito Forbes is a 38 y.o. who presents to the emergency department chief complaint of generalizedabdominal pain with nausea and vomiting. Endorses normal bowel movements. Denies any dysuria, urgency, frequency. Denies any chest pain or shortness of breath. Endorses marijuana use. Patient broughtin by EMS. Nursing Notes were reviewed. Outside historians: EMS REVIEW OF SYSTEMS Review of Systems Constitutional: Negative for fever. HENT: Negative for sore throat. Respiratory: Negative for cough and shortness of breath. Cardiovascular: Negative for chest pain. Gastrointestinal: Positive for abdominal pain, nausea and vomiting. Negative for diarrhea. Genitourinary: Negative for dysuria and urgency. Musculoskeletal: Negative for neck pain. Skin: Negative for rash. Neurological: Negative for headaches. Pertinent positives and negatives as per HPI PAST MEDICAL HISTORY No past medical history on file. SURGICAL HISTORY No past surgical history on file. CURRENT MEDICATIONS Current Discharge Medication List CONTINUE these medications which have NOT CHANGED Details venlafaxine XR (Effexor XR) 225 MG 24 hr tablet Take 225 mg by mouth daily (with breakfast). Do notcrush, chew, or split. ALLERGIES Patient has no known allergies. FAMILY HISTORY No family history on file. SOCIAL HISTORY Social History Socioeconomic History Marital status: Single Tobacco Use Smoking status: Every Day Current packs/day: 1.00 Types: Cigarettes Vaping Use Vaping status: Never Used Substance and Sexual Activity Alcohol use: Not Currently Drug use: Yes Types: Methamphetamines Social Drivers of Health Financial Resource Strain: Low Risk (10/25/2023) Overall Financial Resource Strain (CARDIA) Difficulty of Paying Living Expenses: Not hard at all Food Insecurity: No Food Insecurity (10/25/2023) Hunger Vital Sign Worried About Running Out of Food in the Last Year: Never true Ran Out of Food in the Last Year: Never true Transportation Needs: No Transportation Needs (10/25/2023) PRAPARE - Transportation Lack of Transportation (Medical): No Lack of Transportation (Non-Medical): No Physical Activity: Inactive (10/25/2023) Exercise Vital Sign Days of Exercise per Week: 0 days Minutes of Exercise per Session: 0 min Stress: No Stress Concern Present (10/25/2023) [place] [employer] - Occupational Stress Questionnaire Feeling of Stress : Not at all Social Connections: Moderately Isolated (10/25/2023) Social Connection and Isolation Panel [NHANES] Frequency of Communication with Friends and Family: Three times a week Frequency of Social Gatherings with Friends and Family: Three times a week Attends Druze Services: Never Active Member of Clubs or Organizations: No Attends Club or Organization Meetings: Never Marital Status: Living with partner Intimate Partner Violence: Not At Risk (10/25/2023) Humiliation, Afraid, Rape, and Kick questionnaire Fear of Current or Ex-Partner: No Emotionally Abused: No Physically Abused: No Sexually Abused: No Housing Stability: Low Risk (10/25/2023) Housing Stability Vital Sign Unable to Pay for Housing in the Last Year: No Number of Places Lived in the Last Year: 1 Unstable Housing in the Last Year: No PHYSICAL EXAM ED Triage Vitals Temp Pulse Resp BP -- -- -- -- SpO2 Temp src Heart Rate Source Patient Position -- -- -- -- BP Location FiO2 (%) -- -- Physical Exam Vitals and nursing note reviewed. Constitutional: General: He is not in acute distress. Comments: 38-year-old male HENT: Head: Normocephalic and atraumatic. Mouth/Throat: Mouth: Mucous membranes are moist. Pharynx: Oropharynx is clear. Eyes: Extraocular Movements: Extraocular movements intact. Pupils: Pupils are equal, round, and reactive to light. Comments: Injected conjunctiva Cardiovascular: Rate and Rhythm: Normal rate and regular rhythm. Pulmonary: Effort: Pulmonary effort is normal. Abdominal: Palpations: Abdomen is soft. Tenderness: There is no abdominal tenderness. There is no guarding or rebound. Musculoskeletal: Cervical back: Normal range of motion. Skin: General: Skin is warm and dry. Findings: No rash. Neurological: General: No focal deficit present. Mental Status: He is alert. DIAGNOSTIC RESULTS RADIOLOGY (Per Emergency Physician): Interpretation per the Radiologist below, if available at the time of this note: No orders to display LABS: Labs Reviewed BASIC METABOLIC PANEL - Abnormal Result Value SODIUM 134 (*) POTASSIUM 4.1 CHLORIDE 102 CARBON DIOXIDE 27 UREA NITROGEN 8 (*) CREATININE 0.70 GLUCOSE 103 (*) CALCIUM 8.9 ANION GAP 6 eGFR >90.0 CBC WITH AUTO DIFFERENTIAL - Abnormal Auto WBC 12.3 (*) RBC 5.16 Hemoglobin 16.0 Hematocrit 45.1 MCV 87.4 MCH 31.0 MCHC 35.5 RDW 12.2 Platelets 323 MPV 8.7 (*) nRBC 0.0 Neutrophils Relative 85.2 (*) Lymphocytes Relative 6.5 (*) Monocytes Relative 6.9 Eosinophils Relative 0.8 Basophils Relative 0.2 Immature Grans % 0.4 Neutrophils Absolute 10.4 (*) Lymphocytes Absolute 0.8 (*) Monocytes Absolute 0.9 Eosinophils Absolute 0.1 Basophils Absolute 0.0 Immature Grans Absolute 0.1 (*) HEPATIC FUNCTION PANEL - Normal BILIRUBIN, TOTAL 0.8 BILIRUBIN, DIRECT 0.0 ALKALINE PHOSPHATASE 89 AST (SGOT) 34 ALT 25 ALBUMIN 4.4 TOTAL PROTEIN 7.3 LIPASE - Normal LIPASE 46 TROPONIN I - Normal TROPONIN I <0.012 Narrative: Patients with high levels of Biotin oral intake (ie >5 mg/day) may have falsely decreased Troponin levels. All other labs were within normal range or not returned as of this dictation. EMERGENCY DEPARTMENT COURSE and DIFFERENTIAL DIAGNOSIS/MDM: Vitals: Vitals: 04/11/24 0049 04/11/24 0050 04/11/24 0300 04/11/24429 BP: (!) 144/100 133/77 BP Location: Right arm Patient Position: Sitting Pulse: (!) 117 89 72 Resp: 18 16 Temp: 36.4 C (97.6 F) 37.4 C (99.3 F) TempSrc: Temporal Temporal SpO2: 100% 99% Weight: 90.7 kg (200 lb) Height: 1.753 m (5' 9) Medications prochlorperazine (Compazine) injection 5 mg (5 mg IntraVENous Given 04/11/24209) diphenhydrAMINE (BENADryl) injection 25 mg (25 mg IntraVENous Given 04/11/24209) ketorolac (Toradol) injection 15 mg (15 mg IntraVENous Given 04/11/24209) sodium chloride 0.9 % bolus 1,000 mL (1,000 mL IntraVENous New Bag 04/11/24209) Evaluated for his generalized abdominal discomfort with nausea and vomiting. Abdomen soft nontender. Patient is afebrile. No work of breathing with normal oxygen saturation room air. Endorses marijuana use. Treating patient symptomatically with Compazine, diphenhydramine, Toradol, fluids. Strong cli nical suspicion for cannabis hyperemesis syndrome. Screening EKG, blood work obtained. Abdomen continue to remain nontender. Patient discharged in improved condition. ED Course as of 04/11/24434Apr 11, 2024 0247 Auto WBC(!): 12.3 No focal abdominal tenderness [SP] 0247 HEMOGLOBIN: 16.0 [SP] 0247 eGFR: >90.0 [SP] 0247 ALT - QUEST: 25 [SP] 0247 BILIRUBIN, DIRECT: 0.0 [SP] 0247 LIPASE: 46 [SP] 0247 TROPONIN I: <0.012 [SP] 0328 Patient clinically improved. Abdomen soft with no tenderness. [SP] 0328 Heart Rate: 89 Improved [SP] 0328 Risk of radiation imaging not felt to be beneficial or warranted at this time. [SP] ED Course User Index [SP] James A Ifeoma, MD Diagnoses as of 04/11/24434 Nausea and vomiting, unspecified vomiting type Marijuana use SCREENINGS MDM elements: The patient presented with chief complaint of nausea and vomiting with abdominal discomfort. The differential diagnosis associated with this patient's presentation includes but not limited to pancreatitis, gastroenteritis, cannabinoid hyperemesis, bowel obstruction, atypical ACS. Our workup consisted of ordering/reviewing: EKG, blood work, CT abdomen. To aid in management, I performed an independent interpretation of EKG; see my interpretation elsewhere in the chart. Consideration for escalation of care with: diagnostics CT imaging but radiation was not felt to be warranted with a benign abdominal exam. The patient will be Discharged. Patient is in agreement with this plan. PROCEDURES: Unless otherwise noted below, none Procedures FINAL IMPRESSION 1. Nausea and vomiting, unspecified vomiting type 2. Marijuana use DISPOSITION Discharge 04/11/2024 02:58:06 AM PATIENT REFERRED TO: John Andrews MD [address] [place] [address], [address] [facility] [id number] Schedule an appointment as soon as possible for a visit [facility] ED [address] [place] [phone] Go to As needed, If symptoms worsen DISCHARGE MEDICATIONS: Current Discharge Medication List (Comment: Please note this report has been produced using speech recognition software and may contain errors related to that system including errors in grammar, punctuation, and spelling, as well as words and phrases that may be inappropriate. If there are any questions or concerns please feel freeto contact the dictating provider for clarification.) James Neil MD (electronically signed) Emergency Medicine Provider James Neil MD 04/11/[address] [facility]11-13-2024 Physician Emergency department Note* James Neil MD - 04/11/2024 12:45 AM EST EMERGENCY DEPARTMENT ENCOUNTER Pt Name: Mayiot Forbes Birthdate 1985 Date of evaluation: 04/11/2024 ED Provider: James Neil MD CHIEF COMPLAINT Chief Complaint Patient presents with Drug Overdose Patient arrived to ED via EMS after being called out for a drug overdose. Endorses to smoking weed.+n/v HISTORY OF PRESENT ILLNESS (Location/Symptom, Timing/Onset, Context/Setting, Quality, Duration, Modifying Factors, Severity) Note limiting factors. I wore appropriate PPE for the entirety of this encounter. HPI Mayito Forbes is a 38 y.o. who presents to the emergency department chief complaint of generalizedabdominal pain with nausea and vomiting. Endorses normal bowel movements. Denies any dysuria, urgency, frequency. Denies any chest pain or shortness of breath. Endorses marijuana use. Patient broughtin by EMS. Nursing Notes were reviewed. Outside historians: EMS REVIEW OF SYSTEMS Review of Systems Constitutional: Negative for fever. HENT: Negative for sore throat. Respiratory: Negative for cough and shortness of breath. Cardiovascular: Negative for chest pain. Gastrointestinal: Positive for abdominal pain, nausea and vomiting. Negative for diarrhea. Genitourinary: Negative for dysuria and urgency. Musculoskeletal: Negative for neck pain. Skin: Negative for rash. Neurological: Negative for headaches. Pertinent positives and negatives as per HPI PAST MEDICAL HISTORY No past medical history on file. SURGICAL HISTORY No past surgical history on file. CURRENT MEDICATIONS Current Discharge Medication List CONTINUE these medications which have NOT CHANGED Details venlafaxine XR (Effexor XR) 225 MG 24 hr tablet Take 225 mg by mouth daily (with breakfast). Do notcrush, chew, or split. ALLERGIES Patient has no known allergies. FAMILY HISTORY No family history on file. SOCIAL HISTORY Social History Socioeconomic History Marital status: Single Tobacco Use Smoking status: Every Day Current packs/day: 1.00 Types: Cigarettes Vaping Use Vaping status: Never Used Substance and Sexual Activity Alcohol use: Not Currently Drug use: Yes Types: Methamphetamines Social Drivers of Health Financial Resource Strain: Low Risk (10/25/2023) Overall Financial Resource Strain (CARDIA) Difficulty of Paying Living Expenses: Not hard at all Food Insecurity: No Food Insecurity (10/25/2023) Hunger Vital Sign Worried About Running Out of Food in the Last Year: Never true Ran Out of Food in the Last Year: Never true Transportation Needs: No Transportation Needs (10/25/2023) PRAPARE - Transportation Lack of Transportation (Medical): No Lack of Transportation (Non-Medical): No Physical Activity: Inactive (10/25/2023) Exercise Vital Sign Days of Exercise per Week: 0 days Minutes of Exercise per Session: 0 min Stress: No Stress Concern Present (10/25/2023) [place] [employer] - Occupational Stress Questionnaire Feeling of Stress : Not at all Social Connections: Moderately Isolated (10/25/2023) Social Connection and Isolation Panel [NHANES] Frequency of Communication with Friends and Family: Three times a week Frequency of Social Gatherings with Friends and Family: Three times a week Attends Druze Services: Never Active Member of Clubs or Organizations: No Attends Club or Organization Meetings: Never Marital Status: Living with partner Intimate Partner Violence: Not At Risk (10/25/2023) Humiliation, Afraid, Rape, and Kick questionnaire Fear of Current or Ex-Partner: No Emotionally Abused: No Physically Abused: No Sexually Abused: No Housing Stability: Low Risk (10/25/2023) Housing Stability Vital Sign Unable to Pay for Housing in the Last Year: No Number of Places Lived in the Last Year: 1 Unstable Housing in the Last Year: No PHYSICAL EXAM ED Triage Vitals Temp Pulse Resp BP -- -- -- -- SpO2 Temp src Heart Rate Source Patient Position -- -- -- -- BP Location FiO2 (%) -- -- Physical Exam Vitals and nursing note reviewed. Constitutional: General: He is not in acute distress. Comments: 38-year-old male HENT: Head: Normocephalic and atraumatic. Mouth/Throat: Mouth: Mucous membranes are moist. Pharynx: Oropharynx is clear. Eyes: Extraocular Movements: Extraocular movements intact. Pupils: Pupils are equal, round, and reactive to light. Comments: Injected conjunctiva Cardiovascular: Rate and Rhythm: Normal rate and regular rhythm. Pulmonary: Effort: Pulmonary effort is normal. Abdominal: Palpations: Abdomen is soft. Tenderness: There is no abdominal tenderness. There is no guarding or rebound. Musculoskeletal: Cervical back: Normal range of motion. Skin: General: Skin is warm and dry. Findings: No rash. Neurological: General: No focal deficit present. Mental Status: He is alert. DIAGNOSTIC RESULTS RADIOLOGY (Per Emergency Physician): Interpretation per the Radiologist below, if available at the time of this note: No orders to display LABS: Labs Reviewed BASIC METABOLIC PANEL - Abnormal Result Value SODIUM 134 (*) POTASSIUM 4.1 CHLORIDE 102 CARBON DIOXIDE 27 UREA NITROGEN 8 (*) CREATININE 0.70 GLUCOSE 103 (*) CALCIUM 8.9 ANION GAP 6 eGFR >90.0 CBC WITH AUTO DIFFERENTIAL - Abnormal Auto WBC 12.3 (*) RBC 5.16 Hemoglobin 16.0 Hematocrit 45.1 MCV 87.4 MCH 31.0 MCHC 35.5 RDW 12.2 Platelets 323 MPV 8.7 (*) nRBC 0.0 Neutrophils Relative 85.2 (*) Lymphocytes Relative 6.5 (*) Monocytes Relative 6.9 Eosinophils Relative 0.8 Basophils Relative 0.2 Immature Grans % 0.4 Neutrophils Absolute 10.4 (*) Lymphocytes Absolute 0.8 (*) Monocytes Absolute 0.9 Eosinophils Absolute 0.1 Basophils Absolute 0.0 Immature Grans Absolute 0.1 (*) HEPATIC FUNCTION PANEL - Normal BILIRUBIN, TOTAL 0.8 BILIRUBIN, DIRECT 0.0 ALKALINE PHOSPHATASE 89 AST (SGOT) 34 ALT 25 ALBUMIN 4.4 TOTAL PROTEIN 7.3 LIPASE - Normal LIPASE 46 TROPONIN I - Normal TROPONIN I <0.012 Narrative: Patients with high levels of Biotin oral intake (ie >5 mg/day) may have falsely decreased Troponin levels. All other labs were within normal range or not returned as of this dictation. EMERGENCY DEPARTMENT COURSE and DIFFERENTIAL DIAGNOSIS/MDM: Vitals: Vitals: 04/11/24 0049 04/11/24 0050 04/11/24 0300 04/11/24 0430 BP: (!) 144/100 133/77 BP Location: Right arm Patient Position: Sitting Pulse: (!) 117 89 72 Resp: 18 16 Temp: 36.4 C (97.6 F) 37.4 C (99.3 F) TempSrc: Temporal Temporal SpO2: 100% 99% Weight: 90.7 kg (200 lb) Height: 1.753 m (5' 9) Medications prochlorperazine (Compazine) injection 5 mg (5 mg IntraVENous Given 04/11/24209) diphenhydrAMINE (BENADryl) injection 25 mg (25 mg IntraVENous Given 04/11/24209) ketorolac (Toradol) injection 15 mg (15 mg IntraVENous Given 04/11/24209) sodium chloride 0.9 % bolus 1,000 mL (1,000 mL IntraVENous New Bag 04/11/24209) Evaluated for his generalized abdominal discomfort with nausea and vomiting. Abdomen soft nontender. Patient is afebrile. No work of breathing with normal oxygen saturation room air. Endorses marijuana use. Treating patient symptomatically with Compazine, diphenhydramine, Toradol, fluids. Strong cli nical suspicion for cannabis hyperemesis syndrome. Screening EKG, blood work obtained. Abdomen continue to remain nontender. Patient discharged in improved condition. ED Course as of 04/11/24434Apr 11, 2024 0247 Auto WBC(!): 12.3 No focal abdominal tenderness [SP] 0247 HEMOGLOBIN: 16.0 [SP] 0247 eGFR: >90.0 [SP] 0247 ALT - QUEST: 25 [SP] 0247 BILIRUBIN, DIRECT: 0.0 [SP] 0247 LIPASE: 46 [SP] 0247 TROPONIN I: <0.012 [SP] 0328 Patient clinically improved. Abdomen soft with no tenderness. [SP] 0328 Heart Rate: 89 Improved [SP] 0328 Risk of radiation imaging not felt to be beneficial or warranted at this time. [SP] ED Course User Index [SP] James Neil MD Diagnoses as of 04/11/24434 Nausea and vomiting, unspecified vomiting type Marijuana use SCREENINGS MDM elements: The patient presented with chief complaint of nausea and vomiting with abdominal discomfort. The differential diagnosis associated with this patient's presentation includes but not limited to pancreatitis, gastroenteritis, cannabinoid hyperemesis, bowel obstruction, atypical ACS. Our workup consisted of ordering/reviewing: EKG, blood work, CT abdomen. To aid in management, I performed an independent interpretation of EKG; see my interpretation elsewhere in the chart. Consideration for escalation of care with: diagnostics CT imaging but radiation was not felt to be warranted with a benign abdominal exam. The patient will be Discharged. Patient is in agreement with this plan. PROCEDURES: Unless otherwise noted below, none Procedures FINAL IMPRESSION 1. Nausea and vomiting, unspecified vomiting type 2. Marijuana use DISPOSITION Discharge 04/11/2024 02:58:06 AM PATIENT REFERRED TO: John Andrews MD [address] [place] [address], [address] [facility] [address] Schedule an appointment as soon as possible for a visit [facility] ED [address] [place] [phone] Go to As needed, If symptoms worsen DISCHARGE MEDICATIONS: Current Discharge Medication List (Comment: Please note this report has been produced using speech recognition software and may contain errors related to that system including errors in grammar, punctuation, and spelling, as well as words and phrases that may be inappropriate. If there are any questions or concerns please feel freeto contact the dictating provider for clarification.) James Neil MD (electronically signed) Emergency Medicine Provider James Neil MD 04/11/24 0436 [id number] Telephone encounter Note* Telephone Encounter - Vianey Proctor RN - 12/05/2023 1:52 PM EDT Spoke to patient. He is taking Vivitrol injections as prescribed and cutting back on marijuana. Denies other substance use. He is experiencing depression. He is taking Effexor as directed and attending counseling sessions. Encouraged him to alert his providers concerning depression. He denies SI/HI. Educated on side effects of Vivitrol. He is trying to get a job and awaiting a background check. Will return to ED if symptoms worsen. [facility] [id number] Miscellaneous Notes* Telephone Encounter - Vianey Proctor RN - 12/05/2023 1:52 PM EDT Spoke to patient. He is taking Vivitrol injections as prescribed and cutting back on marijuana. Denies other substance use. He is experiencing depression. He is taking Effexor as directed and attending counseling sessions. Encouraged him to alert his providers concerning depression. He denies SI/HI. Educated on side effects of Vivitrol. He is trying to get a job and awaiting a background check. Will return to ED if symptoms worsen. documented in this encounterSParkview Health Montpelier [id number] Telephone encounter Note* Telephone Encounter - Vianey Proctor RN - 12/02/2023 6:43 PM EDT No answer, voicemail is not set up. [facility] [id number] Miscellaneous Notes* Telephone Encounter - Vianey Proctor RN - 12/02/2023 6:43 PM EDT No answer, voicemail is not set up. documented in this encounterSParkview Health Montpelier [id number] [facility] Medical Records Department [address] [place] [address] Discharge Summary 11/11/23 1018 MR#: [id number] Acct: [id number] Name: MAYITO FORBES Rep #: [id number] : 1985 38 From: Kyler Nance DO PCP: Care Physician,No Primary Status:ADM IN Location: [place] [id number] Providers Date of Admission: 11/08/23 Date of Discharge: 11/11/23 Primary Care Physician: No Primary Care Phys Consultations 11/09/23 03:48 Consult: Gastroenterology Routine Consulting Provider: [facility] Reason for Consult: ascending colon wall thickening of unclear etiology EMERGENT Consult: No MD Notified: Yes Date Notified: 11/09/23 Time Notified: 07:00 Method of Notification: Text Reason For Visit: OPIOID DETOX Diagnosis Discharge Diagnosis (1) Opiate withdrawal: Status: Acute Code(s): F11.23 - Opioid dependence with withdrawal (2) Heroin abuse: Status: Acute Code(s): F11.10 - Opioid abuse, uncomplicated Plan 1. Acute opioid withdrawal-continue medications #2 chronic depression-patient is on Effexor Total clinical time spent by myself addressing patient's medical issues, reviewing all of his data, and collaborating with patient's care team: 25 minutes Medications at Discharge Home Medications venlafaxine 75 mg capsule,extended release 24 hr 150 mg PO DAILY mood 04/21/22 venlafaxine 150 mg capsule,extended release 24 hr 150 mg PO DAILY DEPRESSION 11/08/23 Hospital Course Operations None Procedures Colonoscopy Summary of Care Provided Minutes Spent on Discharge: 30 Hospital Course: This 38-year-old white male was transferred from a tertiary hospital where he was undergoing treatment for opiate detox, patient was directly admitted to [place] [address], he was transferred due to the fact he was dissatisfied with the detox program in [place]-they were not administering Subutex to the patient. Prior to his admission to the detox unit in [place], patient had been seen in the emergency room there for nausea and vomiting, the CT of the abdomen was obtained which shows thickening of the bowel wall. Patient was admitted to [place] [address], orders were entered using the opiate detox order set, and the patient was seen in consultation by gastroenterology who performed a colonoscopy which showed no abnormality whatsoever. Patient was seen by addiction social science professor and he requested to do an outpatient detox program. On 11/11/2023, patient was seen and examined: On examination he appeared in good health and spirits. Vital signs as documented. Skin warm and dry and without overt rashes. Neck without JVD, neck was supple, trachea midline, thyroid was normal. Lungs clear bilaterally, normal air movement was noted. Heart exam notable for regular rhythm, normal sounds and absence of murmurs, rubs or gallops. Abdomen unremarkable and without evidence of organomegaly, masses, or abdominal aortic enlargement. Bowel sounds are present, abdomen is not distended. Extremities nonedematous, no cyanosis was noted, no clubbing was noted. Neuro: Cranial nerves II through XII are grossly intact, no focal motor deficits were noted, sensation to light touch and pinprick intact, motor exam 5/5 throughout. Psych: Patient is alert and oriented x3, he does not appear anxious or depressed, he does not appear agitated. Patient appears stable for discharge home on 11/11/2023. Weight / BMI Weight Weight: 81.3 kg Body Mass Index (BMI) 27.2 ABG / Lab / Microbiology Data 11/10/23 06:39 11/09/23 06:38 D/C Instructions Discharge Diet: No restrictions Weight Bearing Status: Full weight bearing Meaningful Use Info Meaningful Use Meaningful Use Diagnoses (Choose all that apply): None applicable Ischemic Stroke Statin Dosing Therapy Reference: STATIN DOSE THERAPY REFERENCE: * Patients > 75 years receive moderate or high dose statin therapy. * Patients 75 years or YOUNGER should receive HIGH intensity statin dose unless contraindicated. You will be required to document reason for non-treatment if statin daily dose does not meet guidelines. HIGH DOSE STATIN THERAPY DAILY Atorvastatin > than or = to 40 mg Rosuvastatin > than or = to 20 mg Amlodipine + Atorvastatin > than or = to 2.5/40 mg Ezetimibe + Simvastatin 10/80 mg Simvastatin 80mg Discharge Plan Admission Admit Date/Time: 11/08/23 21:20 Primary Reason for Your Visit: opiate detox Attending Provider: Kyler Nance Primary Care Provider: Care Physician,No Primary Consulting Providers: Fahad Pepe Instructions Additional Instructions / Restrictions: follow up with outpatient detox services as directed Discharge Orders/Prescriptions Prescriptions: Continued venlafaxine 75 mg capsule,extended release 24hr 150 mg PO DAILY venlafaxine 150 (more content not included)...[facility] 11-10-2023 Telephone encounter Note* Telephone Encounter - Vianey Proctor RN - 11/10/2023 8:54 PM EDT No answer, voicemail not set up. [facility] [id number] Miscellaneous Notes* Telephone Encounter - Vianey Proctor RN - 11/10/2023 8:54 PM EDT No answer, voicemail not set up. documented in this encounterSParkview Health Montpelier HospitalKnlmnq74-99-7530 Emergency department Note* Caroline Appiah RN - 11/08/2023 7:26 PM EDT Report to KIMMY Banks. Caroline Appiah RN 11/08/231925 [facility] [id number] Emergency department Note* Caroline Appiah RN - 11/08/2023 7:26 PM EDT Report to RN. Caroline Banks RN 11/08/231925 * Caroline Appiah RN - 11/08/2023 7:00 PM EDT This RN [facility] patient [facility] okayto transfer with peripheral IV. Caroline Appiah RN 11/08/23 1900 * Caroline Appiah RN - 11/08/2023 6:57 PM EDT Pt rounded on at this time. Pt reports nausea is returning at this time. This RN to contact provider who assumed care of patient. Caroline Appiah RN 11/08/23 1857 * Caroline Appiah RN - 11/08/2023 6:32 PM EDT This RN went to round on patient to complete COWS screen and pain assessment. Pt currently alseep. RR even and unlabored. Pt remains on monitor. Caroline Appiah RN 11/08/23 1833 * Caroline Appiah RN - 11/08/2023 4:25 PM EDT DM ETA 1830. Caroline Appiah RN 11/08/23 1625 * Caroline Appiah RN - 11/08/2023 4:04 PM EDT This RN went over detox rules for a second time with patient. Patient agrees with all rules, and verbalizes understanding if any rules are broken. Caroline Appiah RN 11/08/23 1605 * Caroline Appiah RN - 11/08/2023 4:04 PM EDT Pt denies wanting to eat at this time. Pt requesting kameron izabella. Pt provided kameron izabella at this time. Caroline Appiah RN 11/08/23 1604 * Caroline Appiah RN - 11/08/2023 4:00 PM EDT Report to KIMMY Moran on med surg 3 at [facility]. Caroline Appiah RN 11/08/23 1600 * Caroline Appiah RN - 11/08/2023 1:12 PM EDT Report to KIMMY East. Caroline Appiah RN 11/08/23 1312 * Caroline Appiah RN - 11/08/2023 1:04 PM EDT EKG at bedside. Caroline Appiah RN 11/08/23 1304 * Caroline Appiah RN - 11/08/2023 12:47 PM EDT NOE Mayfield made aware of patient tachycardia. This RN requested EKG. Caroline Appiah RN 11/08/23 1248 * Vianey Proctor RN - 11/08/2023 12:17 PM EDT This [facility] RN saw patient for KI consult. Last use of fentanyl was on 11/07/23 at 2 am. He used about1/2 gram. COWS is a 7. Patient has to be prompted to answer questions as he is drowsy. He wants to stop fentanyl use and go to detox. He does not want to go to residential or [facility] after detox. His preference is Vivitrol MAT. I explained I could find him MAT in his insurance network and printed a list. He stated he would go to [facility] in [place]. I spoke to [facility] to ensure they accepted his insurance. They do accept [employer]. They suggested [facility] also has detox unit if he requires detox prior to MAT. Providers notified. Vianey Proctor RN 11/08/23 1218 Vianey Proctor RN 11/08/23 1256 Vianey Proctor RN 11/08/23 1257 Vianey Proctor RN 11/08/23 1637 * Caroline Appiah RN - 11/08/2023 12:06 PM EDT NOE Mayfield made aware of COWS score. Caroline Appiah RN 11/08/23 1207 * Caroline Appiah RN - 11/08/2023 11:46 AM EDT Pt rounded on at this time. Pt reports to this RN he is still nauseous. NOE Mayfield notified. Caroline Appiah RN 11/08/23 1147 * Marc Lainez DO - 11/08/2023 8:30 AM EDT Emergency Department Encounter [facility] EMERGENCY DEPT Patient: Mayito Forbes : 1985 Date of Evaluation: 11/07/2023 ED Supervising Physician: Marc Lainez DO I personally evaluated Mayito Forbes and made/approved the management plan and take responsibilityfor the patient management. This will serve as my Supervisory note and shared attestation. I did perform a substantive portion of the visit including all aspects of the Medical Decision Making. I wore appropriate PPE for the entirety of this encounter. In brief, Mayito Forbes is a 38 y.o. that presents to the emergency department seeking detox. The patient reports he uses fentanyl on a regular basis. He reports nausea and vomiting palpitations, generalized weakness. Reports last time he used fentanyl was yesterday. Focused exam: Appears ill, actively vomiting, generalized abdominal tenderness, diaphoretic, tachycardic. Brief ED course/MDM: 2:09 PM - The patient presented with chief complaint of nausea, vomiting, generalized illness. See history and physical exam above. Differential diagnose includes but is not limited to opioid withdrawal, appendicitis, bowel obstruction. To aid in management, I performed an independent interpretation of all laboratory tests, EKG, imaging, and other diagnostics ordered. The patient required Zofran 4 mg IV x 2, Reglan 10 mg IV x 1, and droperidol 0.625 mg IV with no relief of nausea or vomiting. CT of the abdomen and pelvis was obtained to rule out bowel obstruction and appendicitis, and it was negative. Blood counts, electrolytes, kidney function, lipase, ethanol,hepatic function are unremarkable. UDS is positive for fentanyl. Given the patient's insurance he will be transferred to [facility] for medical admission for intractable nausea and vomiting, they also have resources for addiction medicine so the patient may also be treated for his addiction. Patient's care was significantly impacted by social determinants of health including drug addiction. All diagnostic, treatment, and disposition decisions were made by myself in conjunction with the MARYELLEN. For all further details of the patient's emergency department visit, please see their documentation. (Comment: Please note this report has been produced using speech recognition software and may contain errors related to that system including errors in grammar, punctuation, and spelling, as well as words and phrases that may be inappropriate. If there are any questions or concerns please feel freeto contact the dictating provider for clarification.) Marc Lainez DO [employer] Marc Lainez DO 11/08/23 1411 * Caroline Appiah RN - 11/08/2023 8:18 AM EDT NOE Mayfield notified of n/v episode. Caroline Appiah RN 11/08/23 1022 * Caroline Appiah RN - 11/08/2023 8:17 AM EDT This RN went to PO challenge patient per NOE Mayfield. Pt reports he had another episode of n/v. Emesis noted in Emesis bag. Caroline Appiah RN 11/08/23 0818 * Caroline Appiah RN - 11/08/2023 7:39 AM EDT Pt resting in bed with eyes closed. Pt remains on monitor at this time. No signs of distress noted.Breathing even and unlabored. Caroline Appiah RN 11/08/23 0740 * Susy Carolina MA - 11/08/2023 2:38 AM EDT Called patient for vitals. No answer. Susy Carolina MA 11/08/23 0239 * FLORIDA Fall CNP - 11/07/2023 6:41 PM EDT EMERGENCY DEPARTMENT ENCOUNTER Pt Name: Mayito Forbes Birthdate 1985 Date of evaluation: 11/07/2023 ED Provider: FLORIDA Talavera CNP Patient seen independently within my scope of practice with an Emergency Medicine attending available for supervision. CHIEF COMPLAINT Fentanyl detox/nausea vomiting Chief Complaint Patient presents with Addiction Problem Patient coming in for detox from fentanyl, states last use was yesterday. Patient unsure of how much he uses a day HISTORY OF PRESENT ILLNESS (Location/Symptom, Timing/Onset, Context/Setting, Quality, Duration, Modifying Factors, Severity) Note limiting factors. I wore appropriate PPE for the entirety of this encounter. HPI Mayito Forbes is a 38 y.o. who presents to the emergency department for detox from fentanyl. Patient reported his last use was yesterday he uses about a gram of fentanyl per day states that he injected it last use was yesterday. He denies any chest pain or shortness of breath he speaking in full sentences able to swallow his own secretions. He does endorses nausea no vomiting no diarrhea patientdenies any other injury or illness he denies any problems or urination such as frequency urgency burning discharge denies any fever chills or rashes or any other injury or illness. Patient reports hedoes smoke cigarettes denies any alcohol use or abuse he does admit to smoking some marijuana as well as fentanyl abuse. Nursing Notes were reviewed. Limitations to history: None Outside historians: None REVIEW OF SYSTEMS Review of Systems GENERAL: Denies weight change, fatigue, weakness, fever HEENT: Denies trauma, headache, dizziness, visual change, ear pain, hearing change, tinnitus, rhinorrhea CARDIAC: Denies hypertension, murmur, angina, palpations, dyspnea on exertion, edema RESPIRATORY: Denies shortness of breath, wheezing, cough, sputum, asthma, COPD GI: Complained of nausea, vomiting, denies change in bowels, abdominal pain URINARY: Denies changes in frequency/urgency, hematuria, incontinence, flank pain MUSCULOSKELETAL: Denies weakness, pain, change in ROM, redness, swelling NEURO: Denies loss in sensation, tingling, tremors, weakness, fainting or seizures ENDO: Denies heat/cold intolerance, polyuria, polydipsia, or swelling around neck PSYCH: Denies changes in mood, anxiety, depression, tension, memory Pertinent positives and negatives as per HPI. PAST MEDICAL HISTORY No past medical history on file. SURGICAL HISTORY No past surgical history on file. CURRENT MEDICATIONS Discharge Medication List as of 11/08/2023 8:21 PM CONTINUE these medications which have NOT CHANGED Details promethazine (Phenergan) 25 MG tablet Take 25 mg by mouth every 6 hours as needed for nausea or vomiting., Historical Med venlafaxine XR (Effexor XR) 225 MG 24 hr tablet Take 225 mg by mouth daily (with breakfast). Do notcrush, chew, or split., Historical Med ALLERGIES Patient has no known allergies. FAMILY HISTORY No family history on file. SOCIAL HISTORY Social History Socioeconomic History Marital status: Single Tobacco Use Smoking status: Every Day Packs/day: 1 Types: Cigarettes Vaping Use Vaping Use: Never used Substance and Sexual Activity Alcohol use: Not Currently Drug use: Yes Types: Methamphetamines Social Determinants of Health Financial Resource Strain: Low Risk (10/25/2023) Overall Financial Resource Strain (CARDIA) Difficulty of Paying Living Expenses: Not hard at all Food Insecurity: No Food Insecurity (10/25/2023) Hunger Vital Sign Worried About Running Out of Food in the Last Year: Never true Ran Out of Food in the Last Year: Never true Transportation Needs: No Transportation Needs (10/25/2023) PRAPARE - Transportation Lack of Transportation (Medical): No Lack of Transportation (Non-Medical): No Physical Activity: Inactive (10/25/2023) Exercise Vital Sign Days of Exercise per Week: 0 days Minutes of Exercise per Session: 0 min Stress: No Stress Concern Present (10/25/2023) [place] [employer] Occupational [employer] - Occupational Stress Questionnaire Feeling of Stress : Not at all Social Connections: Moderately Isolated (10/25/2023) Social Connection and Isolation Panel [NHANES] Frequency of Communication with Friends and Family: Three times a week Frequency of Social Gatherings with Friends and Family: Three times a week Attends Druze Services: Never Active Member of Clubs or Organizations: No Attends Club or Organization Meetings: Never Marital Status: Living with partner Intimate Partner Violence: Not At Risk (10/25/2023) Humiliation, Afraid, Rape, and Kick questionnaire Fear of Current or Ex-Partner: No Emotionally Abused: No Physically Abused: No Sexually Abused: No Housing Stability: Low Risk (10/25/2023) Housing Stability Vital Sign Unable to Pay for Housing in the Last Year: No Number of Places Lived in the Last Year: 1 Unstable Housing in the Last Year: No SCREENINGS Jolanta Coma Scale Best Eye Response: Spontaneous Best Verbal Response: Oriented Best Motor Response: Follows commands Jolanta Coma Scale Score: 15 PHYSICAL EXAM ED Triage Vitals Temp Pulse Resp BP -- -- -- -- SpO2 Temp src Heart Rate Source Patient Position -- -- -- -- BP Location FiO2 (%) -- -- Physical Exam GENERAL: The patient appears nourished and normally developed. Vital signs as documented. EYES: Head exam is unremarkable. No scleral icterus or orbital trauma noted. HEENT: Mucous membranes moist. Nares patent without copious rhinorrhea. No enlarged lymphadenopathy. LUNGS: Lungs are clear to auscultation, without any respiratory distress. CARDIAC: Rhythm is regular. No dysrythmias or murmurs. ABDOMEN: Nontender with no obvious masses, and no peritoneal signs. EXTREMITIES: Non edematous, with no obvious deformities. SKIN: Good color, with no significant rashes. No pallor. NEURO: No obvious neurological deficits, normal sensation and strength bilaterally. patient able toambulate. DIAGNOSTIC RESULTS RADIOLOGY (Per Emergency Physician): Interpretation per the Radiologist below, if available at the time of this note: CT abdomen pelvis w contrast Final Result 1. Mild thickening of the villanueva of the ascending colon. Findings be seen with mild colitis or peristalsis, however neoplasm is not excluded. Recommend gastroenterology consultation for colonoscopy referral. 2. Significant stool is present within the rectosigmoid colon, nonspecific but can be seen with constipation. 3. Small hiatal hernia. Report Dictated on Electronically Signed By: Ahsan Schuler MD Electronically Signed Date/Time: 11/08/2023 9:44 AM EDT LABS: Labs Reviewed CBC WITH AUTO DIFFERENTIAL - Abnormal Result Value Auto WBC 10.7 RBC 5.40 Hemoglobin 16.3 Hematocrit 46.2 MCV 85.6 MCH 30.2 MCHC 35.3 RDW 12.1 Platelets 404 MPV 8.7 (*) nRBC 0.0 Neutrophils Relative 79.5 Lymphocytes Relative 12.1 (*) Monocytes Relative 6.4 Eosinophils Relative 1.2 Basophils Relative 0.5 Immature Grans % 0.3 Neutrophils Absolute 8.5 (*) Lymphocytes Absolute 1.3 Monocytes Absolute 0.7 Eosinophils Absolute 0.1 Basophils Absolute 0.1 Immature Grans Absolute 0.0 BASIC METABOLIC PANEL - Abnormal SODIUM 138 POTASSIUM 3.7 CHLORIDE 106 CARBON DIOXIDE 23 UREA NITROGEN 11 CREATININE 0.69 GLUCOSE 108 (*) CALCIUM 9.7 ANION GAP 10 eGFR >90.0 COMPLETE URINALYSIS - Abnormal Color, Urine Yellow Clarity, Urine Clear pH, Urine 8.0 Leukocytes, Urine Negative Nitrite, Urine Negative Protein, Urine 10 (*) Glucose, Urine Normal Bilirubin, Urine Negative Ketones, Urine 20 (*) Urobilinogen, Urine Normal Blood, Urine Negative RBC, Urine 0-2 WBC, Urine 3-5 Squamous Epithelial, Urine Negative Bacteria, Urine Negative Hyaline Casts, Urine Negative SPECIFIC GRAVITY OF URINE (NUMERIC) 1.020 SARS-COV-2 ANTIGEN - Normal SARS-CoV-2 Antigen Negative HEPATIC FUNCTION PANEL - Normal BILIRUBIN, TOTAL 0.6 BILIRUBIN, DIRECT 0.0 ALKALINE PHOSPHATASE 96 AST (SGOT) 33 ALT 30 ALBUMIN 4.4 TOTAL PROTEIN 7.5 ETHANOL - Normal ETHANOL IN SER/PLAS <0.010 Narrative: NOTE: This result is for medical treatment only. Analysis performed using non- forensic procedures. DRUGS OF ABUSE AMPHETAMINE SCREEN Negative BARBITURATES SCREEN Negative BENZODIAZEPINE SCREEN Negative COCAINE METAB. SCREEN Negative METHADONE SCREEN Negative OPIATES SCREEN Negative OXYCODONE SCREEN Negative PHENCYCLIDINE SCREEN Negative Narrative: The expected value for all of the drugs listed above is Negative. The following drugs or drug groups have been screened for by Immunoassay at the following thresholds: Amphetamine class (1000 ng/mL) Barbiturates (200 ng/mL) Benzodiazepines (200 ng/mL) Cocaine (300 ng/mL) Methadone (300 ng/mL) Opiates (300 ng/mL) Oxycodone (100 ng/mL) PCP (25 ng/mL) NOTE: These results are for medical treatment only. Analysis performed using non-forensic procedures. POSITIVE results are NOT confirmed by a more specific alternative method unless requested. If confirmation is needed, request confirmation under separateorder. FENTANYL, URINE FENTANYL SCREEN, URINE Positive Narrative: Fentanyl has been screened for by Immunoassay at a 1 ng/ml threshold. POSITIVE results are not confirmed by a more specific alternative method unless requested. If confirmation is needed, request confirmation under separate order. NOTE: These results are for medical treatment only. Analysis performed using non-forensic procedures. All other labs were within normal range or not returned as of this dictation. EMERGENCY DEPARTMENT COURSE and DIFFERENTIAL DIAGNOSIS/MDM: Vitals: Vitals: 11/08/23 1654 11/08/23 1830 11/08/23 1929 11/08/23 1931 BP: (!) 153/89 (!) 153/108 (!) 154/103 BP Location: Left arm Patient Position: Lying Pulse: (!) 116 95 (!) 114 108 Resp: 14 18 15 Temp: TempSrc: SpO2: 98% 98% Weight: Height: Medications ondansetron (Zofran) 4 MG/2ML injection - Pyxis ADS Override Pull (has no administration in time range) ondansetron (Zofran) injection 4 mg (4 mg IntraVENous Given 11/07/23 2224) sodium chloride 0.9 % bolus 1,000 mL (0 mL IntraVENous Stopped 11/08/23 0015) ondansetron (Zofran) injection 4 mg (4 mg IntraVENous Given 11/08/23 0313) lactated ringers bolus 1,000 mL (0 mL IntraVENous Stopped 11/08/23 0500) metoclopramide (Reglan) injection 10 mg (10 mg IntraVENous Given 11/08/23 0540) diphenhydrAMINE (BENADryl) injection 25 mg (25 mg IntraVENous Given 11/08/23 0540) iopamidol (Isovue-370) 76 % injection 75 mL (75 mL IntraVENous Given 11/08/23 0931) droperidol (Inapsine) injection 0.625 mg (0.625 mg IntraVENous Given 11/08/23 1201) sodium chloride 0.9 % bolus 1,000 mL (0 mL IntraVENous Stopped 11/08/23 1404) ondansetron (Zofran) injection 4 mg (4 mg IntraVENous Given 11/08/23 1652) ketorolac (Toradol) injection 15 mg (15 mg IntraVENous Given 11/08/23 1653) ondansetron (Zofran) injection 4 mg (4 mg IntraVENous Given 11/08/23 1919) [facility] MDM elements: The patient presented with chief complaint of nausea vomiting fentanyl. The differential diagnosis associated with this patient's presentation includes nausea vomiting gastroenteritis versus gastritis versus diverticulitis versus diverticulosis versus actable nausea vomiting can Dagoberto to opiate and marijuana abuse. Our workup consisted of ordering/reviewing: A CBC BMP a drug screen EtOH hepatic panel BMP CBC a COVID was obtained as well. I discussed their care with none. The patient will be Transferred. The patient requires hospitalization due to alcohol rehab Patient is in agreement with this plan. Patient's care was significantly impacted by social determinants of health including opiate abuse. Results of the patient's laboratory studies shows a drug screen that was negative the fentanyl screen of the urine was positive. Urinalysis was unremarkable alcohol was less than 0.010 hepatic panel was unremarkable as well the patient's CBC was unremarkable the COVID was negative. I have signed out Emergency Department care to Karuna Mayfield CNP. We discussed the pertinent history, physical exam, completed/pending test results (if applicable) and current treatment plan. Please refer to her chart for this patients remaining Emergency ;Department course and final disposition. PROCEDURES: Unless otherwise noted below, none Procedures CRITICAL CARE TIME None FINAL IMPRESSION 1. Fentanyl use disorder, mild, abuse (CMS/HCC) (HCC) 2. Nausea and vomiting, unspecified vomiting type DISPOSITION Transfer To Another Facility 11/08/2023 03:08:34 PM PATIENT REFERRED TO: [facility] [address] [place] [address] Call for addictions treatment resources, referrals [facility] Crisis Line [phone] Call for immediate addictions and mental health support [facility] [address] [place] [address] Go to as needed. In network with [employer] insurance DISCHARGE MEDICATIONS: Discharge Medication List as of 11/08/2023 8:21 PM (Comment: Please note this report has been produced using speech recognition software and may contain errors related to that system including errors in grammar, punctuation, and spelling, as well as words and phrases that may be inappropriate. If there are any questions or concerns please feel freeto contact the dictating provider for clarification.) FLORIDA Talavera CNP (electronically signed) Emergency Medicine Provider FLORIDA Fall CNP 11/08/232221 * FLORIDA Quinteros CNP - 11/07/2023 6:41 PM EDT Emergency Department Encounter Location: [facility] EMERGENCY DEPT Patient: Mayito Forbes : 1985 Date of evaluation: 11/07/2023 ED Provider: FLORIDA Mayorga CNP Time received sign-out: 0700 Mayito Forbes was checked out to me by RICH Fall. Please see his/her initial documentation for details of the patient's initial ED presentation, physical exam and completed studies. In brief, Mayito Forbes is a 38 y.o. 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 Patient reports that he injects approximately one gram of fentanyl daily. Reports last use was 0200 Tuesday. Patient reports that he was recently admitted for medication assisted treatment, but ultimately relapsed on discharge. Patient reports that he also smokes cigarettes and marijuana. Patient present complaining of profuse nausea and vomiting. He states that he has had numerous episodes of emesis, unable to tolerate any PO intake at all. Patient requesting Vivitrol for detox. I have reviewed and interpreted all of the currently available lab results and diagnostics from this visit: Results for orders placed or performed during the hospital encounter of 11/07/23 SARS-CoV-2 Antigen Specimen: Nasal; Swab Result Value Ref Range SARS-CoV-2 Antigen Negative Negative CBC auto differential Result Value Ref Range Auto WBC 10.7 3.6 - 10.7 10*3/uL RBC 5.40 4.40 - 5.90 10*6/uL Hemoglobin 16.3 13.0 - 18.0 g/dL Hematocrit 46.2 40.0 - 52.0 % MCV 85.6 77.0 - 99.0 fL MCH 30.2 26.0 - 34.0 pg MCHC 35.3 30.5 - 36.0 % RDW 12.1 11.5 - 15.0 % Platelets 404 140 - 440 10*3/uL MPV 8.7 (L) 9.0 - 12.7 fL nRBC 0.0 0.0 - 2.0 /100 WBCs Neutrophils Relative 79.5 38.0 - 82.0 % Lymphocytes Relative 12.1 (L) 15.0 - 45.0 % Monocytes Relative 6.4 5.0 - 13.0 % Eosinophils Relative 1.2 0.0 - 6.0 % Basophils Relative 0.5 0.0 - 2.0 % Immature Grans % 0.3 0.0 - 2.0 % Neutrophils Absolute 8.5 (H) 1.8 - 7.5 10*3/uL Lymphocytes Absolute 1.3 1.0 - 4.3 10*3/uL Monocytes Absolute 0.7 0.0 - 0.9 10*3/uL Eosinophils Absolute 0.1 0.0 - 0.5 10*3/uL Basophils Absolute 0.1 0.0 - 0.2 10*3/uL Immature Grans Absolute 0.0 <0.1 10*3/uL Basic metabolic panel Result Value Ref Range SODIUM 138 135 - 145 mmol/L POTASSIUM 3.7 3.5 - 5.1 mmol/L CHLORIDE 106 98 - 107 mmol/L CARBON DIOXIDE 23 22 - 30 mmol/L UREA NITROGEN 11 9 - 20 mg/dL CREATININE 0.69 0.66 - 1.25 mg/dL GLUCOSE 108 (H) 70 - 100 mg/dL CALCIUM 9.7 8.4 - 10.4 mg/dL ANION GAP 10 3 - 13 mmol/L eGFR >90.0 >60.0 mL/min/1.73m*2 Hepatic function panel Result Value Ref Range BILIRUBIN, TOTAL 0.6 0.2 - 1.3 mg/dL BILIRUBIN, DIRECT 0.0 0.0 - 0.3 mg/dL ALKALINE PHOSPHATASE 96 38 - 126 U/L AST (SGOT) 33 15 - 46 U/L ALT 30 0 - 49 U/L ALBUMIN 4.4 3.5 - 5.0 g/dL TOTAL PROTEIN 7.5 6.3 - 8.2 g/dL Drug screen panel, emergency Result Value Ref Range AMPHETAMINE SCREEN Negative BARBITURATES SCREEN Negative BENZODIAZEPINE SCREEN Negative COCAINE METAB. SCREEN Negative METHADONE SCREEN Negative OPIATES SCREEN Negative OXYCODONE SCREEN Negative PHENCYCLIDINE SCREEN Negative Complete Urinalysis Result Value Ref Range Color, Urine Yellow Lt. Yellow Clarity, Urine Clear Clear pH, Urine 8.0 5.0 - 8.0 pH Leukocytes, Urine Negative Negative Raina/uL Nitrite, Urine Negative Negative Protein, Urine 10 (A) Negative mg/dL Glucose, Urine Normal Normal (<70) mg/dL Bilirubin, Urine Negative Negative mg/dL Ketones, Urine 20 (A) Negative mg/dL Urobilinogen, Urine Normal Normal (0-1) mg/dL Blood, Urine Negative Negative mg/dL RBC, Urine 0-2 0 - 2 /HPF WBC, Urine 3-5 0 - 5 /HPF Squamous Epithelial, Urine Negative 3 - 5 /HPF Bacteria, Urine Negative Negative /HPF Hyaline Casts, Urine Negative Negative /LPF SPECIFIC GRAVITY OF URINE (NUMERIC) 1.020 1.005 - 1.030 Ethanol Result Value Ref Range ETHANOL IN SER/PLAS <0.010 0.000 - 0.010 g/dL Fentanyl, urine Result Value Ref Range FENTANYL SCREEN, URINE Positive Negative No orders to display Final ED Course and MDM: In brief, Mayito Forbes is a 38 y.o. whose care was signed out to me by the outgoing provider. In brief, at time of sign out, workup was complete, pending disposition with patient still symptomatic with several episodes of nausea and vomiting. I was notified that patient has out of network insurance and could not be admitted to [facility] facility without being full self-pay. Patient notified of same. Collaboration took place between myself, ED Attending Dr. Lainez, Social Work, TCC, and MAT RN. Ultimately it was determined that patient would be best served at [facility] where he could be admitted medically, but also be provided with detox services. Patient is in agreement with this plan. Patient was medicated numerous times for symptoms while in ED, received total of 1.25 mg IV droperidol, 25 mg IV diphenhydramine, 10 mg IV metoclopramide, 8 mg IV Zofran, 1 L Lactated Ringers infusion, 2 L Normal saline infusion. A CT of the abdomen and pelvis with IV contrast was performed to rule out acute intraabdominal process; unremarkable. CBC, BMP, Hepatic Function Panel, and urin alysis obtained, unremarkable. Ethanol level undetectable. Urine drug screen negative, however Fentanyl sensitive screen positive, as consistent with patient's story. Patient remains in sinus tachycardia. Vital signs otherwise stable. I did discuss this patient with hospitalist at [place], who agreed to accept patient. Patient will be transferred to [facility] for admission for further treatment. Medications ondansetron (Zofran) 4 MG/2ML injection - Pyxis ADS Override Pull (has no administration in time range) ondansetron (Zofran) injection 4 mg (4 mg IntraVENous Given 11/07/23 2224) sodium chloride 0.9 % bolus 1,000 mL (0 mL IntraVENous Stopped 11/08/23 0015) ondansetron (Zofran) injection 4 mg (4 mg IntraVENous Given 11/08/23 0313) lactated ringers bolus 1,000 mL (0 mL IntraVENous Stopped 11/08/23 0500) metoclopramide (Reglan) injection 10 mg (10 mg IntraVENous Given 11/08/23 0540) diphenhydrAMINE (BENADryl) injection 25 mg (25 mg IntraVENous Given 11/08/23 0540) I am the stitchdowns toe former of record. Final Impression 1. Fentanyl use disorder, mild, abuse (CMS/HCC) ([facility]) 2. Nausea and vomiting, unspecified vomiting type DISPOSITION 11/08/2023 01:16:59 AM (Please note that portions of this note may have been completed with a voice recognition program. Efforts were made to edit the dictations but occasionally words are mis-transcribed.) FLORIDA Mayorga CNP [employer] FLORIDA Quinteros CNP 11/08/[address] [facility]06-11-2024 Emergency department Note* Caroline Appiah RN - 11/08/2023 7:00 PM EDT This RN [facility] patient is okayto transfer with peripheral IV. Caroline Appiah RN 11/08/23 1900 [id number] Emergency department Note* Caroline Appiah RN - 11/08/2023 6:57 PM EDT Pt rounded on at this time. Pt reports nausea is returning at this time. This RN to contact provider who assumed care of patient. Caroline Appiah RN 11/08/23 1857 [id number] Emergency department Note* Caroline Appiah RN - 11/08/2023 6:32 PM EDT This RN went to round on patient to complete COWS screen and pain assessment. Pt currently alseep. RR even and unlabored. Pt remains on monitor. Caroline Appiah RN 11/08/23 1833 [id number] Emergency department Note* Caroline Appiah RN - 11/08/2023 4:25 PM EDT DM ETA 1830. Caroline Appiah RN 11/08/23 1625 [id number] Emergency department Note* Caroline Appiah RN - 11/08/2023 4:04 PM EDT This RN went over detox rules for a second time with patient. Patient agrees with all rules, and verbalizes understanding if any rules are broken. Caroline Appiah RN 11/08/23 1605 [facility] HospitalGlhcoq60-71-1781 Emergency department Note* Caroline Appiah RN - 11/08/2023 4:04 PM EDT Pt denies wanting to eat at this time. Pt requesting kameron izabella. Pt provided kameron izabella at this time. Caroline Appiah RN 11/08/23 1604 [facility] [id number] Emergency department Note* Caroline Appiah RN - 11/08/2023 4:00 PM EDT Report to KIMMY Moran on med surg 3 at [facility]. Caroline Appiah RN 11/08/23 1600 [id number] Emergency department Note* Caroline Appiah RN - 11/08/2023 1:12 PM EDT Report to KIMMY East. Caroline Appiah RN 11/08/23 1312 [facility] [id number] Emergency department Note* Caroline Appiah RN - 11/08/2023 1:04 PM EDT EKG at bedside. Caroline Appiah RN 11/08/23 1304 [facility] [id number] Emergency department Note* Caroline Appiah RN - 11/08/2023 12:47 PM EDT NOE Mayfield made aware of patient tachycardia. This RN requested EKG. Caroline Appiah RN 11/08/23 1248 [facility] HospitalGpwvgu13-04-1993 Emergency department Note* Vianey Proctor RN - 11/08/2023 12:17 PM EDT This [facility] RN saw patient for KI consult. Last use of fentanyl was on 11/07/23 at 2 am. He used about1/2 gram. COWS is a 7. Patient has to be prompted to answer questions as he is drowsy. He wants to stop fentanyl use and go to detox. He does not want to go to residential or [facility] after detox. His preference is Vivitrol MAT. I explained I could find him MAT in his insurance network and printed a list. He stated he would go to [facility] in [place]. I spoke to [facility] to ensure they accepted his insurance. They do accept [employer]. They suggested [facility] also has detox unit if he requires detox prior to MAT. Providers notified. Vianey Proctor RN 11/08/23 1218 Vianey Proctor RN 11/08/23 1256 Vianey Proctor RN 11/08/23 1257 Vianey Proctor RN 11/08/23 1637 [facility] [id number] Emergency department Note* Caroline Appiah RN - 11/08/2023 12:06 PM EDT NOE Mayfield made aware of COWS score. Caroline Appiah RN 11/08/23 1207 [facility] [id number] Emergency department Note* Caroline Appiah RN - 11/08/2023 11:46 AM EDT Pt rounded on at this time. Pt reports to this RN he is still nauseous. NOE Mayfield notified. Caroline Appiah RN 11/08/23 1147 [facility] HospitalStkkwm05-93-2615 Note* Care Coordination - Sirena Ortiz RN - 11/08/2023 9:50 AM EDT TCC asked by the ED ENTREPRENEURSHIP PROGRAM DIRECTOR to assist with pt status of OON with [employer]. TCC was able to find a few select hospitals including [facility], [facility]. Provider updated via secure chat. [facility] [id number] Note* Care Coordination - Sirena Ortiz RN - 11/08/2023 9:50 AM EDT TCC asked by the ED ENTREPRENEURSHIP PROGRAM DIRECTOR to assist with pt status of OON with [employer]. TCC was able to find a few select hospitals including [facility], [facility] all [facility]. Provider updated via secure chat. [facility] [id number] Miscellaneous Notes* Care Coordination - Sirena Ortiz RN - 11/08/2023 9:50 AM EDT TCC asked by the ED ENTREPRENEURSHIP PROGRAM DIRECTOR to assist with pt status of OON with [employer]. TCC was able to find a few select hospitals including [facility], [facility]. Provider updated via secure chat. * Care Coordination - AARON Matute - 11/08/2023 9:49 AM EDT ED SW follow up. SW consulted by OFFICE NURSE PRACTITIONER for in network addictions resources and supports. Patient's [employer] insurance not in network with [facility]. Patient also from out [facility]. SW provide [facility] & [facility] hotline, placed information in patient's AVS. Included [facility] as well since it is in network with insurance. documented in this [facility]SP[facility] [id number] Note* Care Coordination - AARON Matute - 11/08/2023 9:49 AM EDT ED SW follow up. SW consulted by OFFICE NURSE PRACTITIONER for in network addictions resources and supports. Patient's [employer] insurance not in network with [facility]. Patient also from out [facility]. SW provide [facility] & [facility], placed information in patient's AVS. Included [facility] as well since it is in network with insurance. [facility] [id number] Note* Care Coordination - AARON Matute - 11/08/2023 9:49 AM EDT ED SW follow up. SW consulted by OFFICE NURSE PRACTITIONER for in network addictions resources and supports. Patient's [employer] [facility] Patient also from out [facility]. [facility] & [facility] Crisis hotline, placed information in patient's AVS. Included [facility] as well since it is in network with insurance. [facility] [id number] Physician Emergency department Note* Marc Lainez DO - 11/08/2023 8:30 AM EDT Emergency Department Encounter [facility] EMERGENCY DEPT Patient: Mayito Forbes : 1985 Date of Evaluation: 11/07/2023 ED Supervising Physician: Marc Lainez DO I personally evaluated Mayito Forbes and made/approved the management plan and take responsibilityfor the patient management. This will serve as my Supervisory note and shared attestation. I did perform a substantive portion of the visit including all aspects of the Medical Decision Making. I wore appropriate PPE for the entirety of this encounter. In brief, Mayito Forbes is a 38 y.o. that presents to the emergency department seeking detox. The patient reports he uses fentanyl on a regular basis. He reports nausea and vomiting palpitations, generalized weakness. Reports last time he used fentanyl was yesterday. Focused exam: Appears ill, actively vomiting, generalized abdominal tenderness, diaphoretic, tachycardic. Brief ED course/MDM: 2:09 PM - The patient presented with chief complaint of nausea, vomiting, generalized illness. See history and physical exam above. Differential diagnose includes but is not limited to opioid withdrawal, appendicitis, bowel obstruction. To aid in management, I performed an independent interpretation of all laboratory tests, EKG, imaging, and other diagnostics ordered. The patient required Zofran 4 mg IV x 2, Reglan 10 mg IV x 1, and droperidol 0.625 mg IV with no relief of nausea or vomiting. CT of the abdomen and pelvis was obtained to rule out bowel obstruction and appendicitis, and it was negative. Blood counts, electrolytes, kidney function, lipase, ethanol,hepatic function are unremarkable. UDS is positive for fentanyl. Given the patient's insurance he will be transferred to [facility] for medical admission for intractable nausea and vomiting, they also have resources for addiction medicine so the patient may also be treated for his addiction. Patient's care was significantly impacted by social determinants of health including drug addiction. All diagnostic, treatment, and disposition decisions were made by myself in conjunction with the MARYELLEN. For all further details of the patient's emergency department visit, please see their documentation. (Comment: Please note this report has been produced using speech recognition software and may contain errors related to that system including errors in grammar, punctuation, and spelling, as well as words and phrases that may be inappropriate. If there are any questions or concerns please feel freeto contact the dictating provider for clarification.) Marc Lainez DO [employer] Marc Lainez DO 11/08/23 1411 [place] Phone: [phone]) 402-126506-11-2024 Emergency department Note* Caroline Appiah RN - 11/08/2023 8:18 AM EDT NOE Mayfield notified of n/v episode. Caroline Appiah RN 11/08/23 1022 [facility] [id number] Emergency department Note* Caroline Appiah RN - 11/08/2023 8:17 AM EDT This RN went to PO challenge patient per NOE Mayfield. Pt reports he had another episode of n/v. Emesis noted in Emesis bag. Caroline Appiah RN 11/08/23 0818 [facility] [id number] Emergency department Note* Caroline Appiah RN - 11/08/2023 7:39 AM EDT Pt resting in bed with eyes closed. Pt remains on monitor at this time. No signs of distress noted.Breathing even and unlabored. Caroline Appiah RN 11/08/23 0740 [facility] HospitalKrheig22-08-7144 Emergency department Note* Susy Carolina MA - 11/08/2023 2:38 AM EDT Called patient for vitals. No answer. Susy Carolina MA 11/08/23 0239 [facility] [id number] NoteNOTE: This result is for medical treatment only. Analysis performed using non-forensic procedures. [facility] [id number] Physician Emergency department Note* FLORIDA Fall CNP - 11/07/2023 6:41 PM EDT EMERGENCY DEPARTMENT ENCOUNTER Pt Name: Mayito Forbes Birthdate 1985 Date of evaluation: 11/07/2023 ED Provider: FLORIDA Talavera CNP Patient seen independently within my scope of practice with an Emergency Medicine attending available for supervision. CHIEF COMPLAINT Fentanyl detox/nausea vomiting Chief Complaint Patient presents with Addiction Problem Patient coming in for detox from fentanyl, states last use was yesterday. Patient unsure of how much he uses a day HISTORY OF PRESENT ILLNESS (Location/Symptom, Timing/Onset, Context/Setting, Quality, Duration, Modifying Factors, Severity) Note limiting factors. I wore appropriate PPE for the entirety of this encounter. HPI Mayito Forbes is a 38 y.o. who presents to the emergency department for detox from fentanyl. Patient reported his last use was yesterday he uses about a gram of fentanyl per day states that he injected it last use was yesterday. He denies any chest pain or shortness of breath he speaking in full sentences able to swallow his own secretions. He does endorses nausea no vomiting no diarrhea patientdenies any other injury or illness he denies any problems or urination such as frequency urgency burning discharge denies any fever chills or rashes or any other injury or illness. Patient reports hedoes smoke cigarettes denies any alcohol use or abuse he does admit to smoking some marijuana as well as fentanyl abuse. Nursing Notes were reviewed. Limitations to history: None Outside historians: None REVIEW OF SYSTEMS Review of Systems GENERAL: Denies weight change, fatigue, weakness, fever HEENT: Denies trauma, headache, dizziness, visual change, ear pain, hearing change, tinnitus, rhinorrhea CARDIAC: Denies hypertension, murmur, angina, palpations, dyspnea on exertion, edema RESPIRATORY: Denies shortness of breath, wheezing, cough, sputum, asthma, COPD GI: Complained of nausea, vomiting, denies change in bowels, abdominal pain URINARY: Denies changes in frequency/urgency, hematuria, incontinence, flank pain MUSCULOSKELETAL: Denies weakness, pain, change in ROM, redness, swelling NEURO: Denies loss in sensation, tingling, tremors, weakness, fainting or seizures ENDO: Denies heat/cold intolerance, polyuria, polydipsia, or swelling around neck PSYCH: Denies changes in mood, anxiety, depression, tension, memory Pertinent positives and negatives as per HPI. PAST MEDICAL HISTORY No past medical history on file. SURGICAL HISTORY No past surgical history on file. CURRENT MEDICATIONS Discharge Medication List as of 11/08/2023 8:21 PM CONTINUE these medications which have NOT CHANGED Details promethazine (Phenergan) 25 MG tablet Take 25 mg by mouth every 6 hours as needed for nausea or vomiting., Historical Med venlafaxine XR (Effexor XR) 225 MG 24 hr tablet Take 225 mg by mouth daily (with breakfast). Do notcrush, chew, or split., Historical Med ALLERGIES Patient has no known allergies. FAMILY HISTORY No family history on file. SOCIAL HISTORY Social History Socioeconomic History Marital status: Single Tobacco Use Smoking status: Every Day Packs/day: 1 Types: Cigarettes Vaping Use Vaping Use: Never used Substance and Sexual Activity Alcohol use: Not Currently Drug use: Yes Types: Methamphetamines Social Determinants of Health Financial Resource Strain: Low Risk (10/25/2023) Overall Financial Resource Strain (CARDIA) Difficulty of Paying Living Expenses: Not hard at all Food Insecurity: No Food Insecurity (10/25/2023) Hunger Vital Sign Worried About Running Out of Food in the Last Year: Never true Ran Out of Food in the Last Year: Never true Transportation Needs: No Transportation Needs (10/25/2023) PRAPARE - Transportation Lack of Transportation (Medical): No Lack of Transportation (Non-Medical): No Physical Activity: Inactive (10/25/2023) Exercise Vital Sign Days of Exercise per Week: 0 days Minutes of Exercise per Session: 0 min Stress: No Stress Concern Present (10/25/2023) [place] [employer] Occupational [employer] - Occupational Stress Questionnaire Feeling of Stress : Not at all Social Connections: Moderately Isolated (10/25/2023) Social Connection and Isolation Panel [NHANES] Frequency of Communication with Friends and Family: Three times a week Frequency of Social Gatherings with Friends and Family: Three times a week Attends Druze Services: Never Active Member of Clubs or Organizations: No Attends Club or Organization Meetings: Never Marital Status: Living with partner Intimate Partner Violence: Not At Risk (10/25/2023) Humiliation, Afraid, Rape, and Kick questionnaire Fear of Current or Ex-Partner: No Emotionally Abused: No Physically Abused: No Sexually Abused: No Housing Stability: Low Risk (10/25/2023) Housing Stability Vital Sign Unable to Pay for Housing in the Last Year: No Number of Places Lived in the Last Year: 1 Unstable Housing in the Last Year: No SCREENINGS Jolanta Coma Scale Best Eye Response: Spontaneous Best Verbal Response: Oriented Best Motor Response: Follows commands Clayton Coma Scale Score: 15 PHYSICAL EXAM ED Triage Vitals Temp Pulse Resp BP -- -- -- -- SpO2 Temp src Heart Rate Source Patient Position -- -- -- -- BP Location FiO2 (%) -- -- Physical Exam GENERAL: The patient appears nourished and normally developed. Vital signs as documented. EYES: Head exam is unremarkable. No scleral icterus or orbital trauma noted. HEENT: Mucous membranes moist. Nares patent without copious rhinorrhea. No enlarged lymphadenopathy. LUNGS: Lungs are clear to auscultation, without any respiratory distress. CARDIAC: Rhythm is regular. No dysrythmias or murmurs. ABDOMEN: Nontender with no obvious masses, and no peritoneal signs. EXTREMITIES: Non edematous, with no obvious deformities. SKIN: Good color, with no significant rashes. No pallor. NEURO: No obvious neurological deficits, normal sensation and strength bilaterally. patient able toambulate. DIAGNOSTIC RESULTS RADIOLOGY (Per Emergency Physician): Interpretation per the Radiologist below, if available at the time of this note: CT abdomen pelvis w contrast Final Result 1. Mild thickening of the villanueva of the ascending colon. Findings be seen with mild colitis or peristalsis, however neoplasm is not excluded. Recommend gastroenterology consultation for colonoscopy referral. 2. Significant stool is present within the rectosigmoid colon, nonspecific but can be seen with constipation. 3. Small hiatal hernia. Report Dictated on Electronically Signed By: Ahsan Schuler MD Electronically Signed Date/Time: 11/08/2023 9:44 AM EDT LABS: Labs Reviewed CBC WITH AUTO DIFFERENTIAL - Abnormal Result Value Auto WBC 10.7 RBC 5.40 Hemoglobin 16.3 Hematocrit 46.2 MCV 85.6 MCH 30.2 MCHC 35.3 RDW 12.1 Platelets 404 MPV 8.7 (*) nRBC 0.0 Neutrophils Relative 79.5 Lymphocytes Relative 12.1 (*) Monocytes Relative 6.4 Eosinophils Relative 1.2 Basophils Relative 0.5 Immature Grans % 0.3 Neutrophils Absolute 8.5 (*) Lymphocytes Absolute 1.3 Monocytes Absolute 0.7 Eosinophils Absolute 0.1 Basophils Absolute 0.1 Immature Grans Absolute 0.0 BASIC METABOLIC PANEL - Abnormal SODIUM 138 POTASSIUM 3.7 CHLORIDE 106 CARBON DIOXIDE 23 UREA NITROGEN 11 CREATININE 0.69 GLUCOSE 108 (*) CALCIUM 9.7 ANION GAP 10 eGFR >90.0 COMPLETE URINALYSIS - Abnormal Color, Urine Yellow Clarity, Urine Clear pH, Urine 8.0 Leukocytes, Urine Negative Nitrite, Urine Negative Protein, Urine 10 (*) Glucose, Urine Normal Bilirubin, Urine Negative Ketones, Urine 20 (*) Urobilinogen, Urine Normal Blood, Urine Negative RBC, Urine 0-2 WBC, Urine 3-5 Squamous Epithelial, Urine Negative Bacteria, Urine Negative Hyaline Casts, Urine Negative SPECIFIC GRAVITY OF URINE (NUMERIC) 1.020 SARS-COV-2 ANTIGEN - Normal SARS-CoV-2 Antigen Negative HEPATIC FUNCTION PANEL - Normal BILIRUBIN, TOTAL 0.6 BILIRUBIN, DIRECT 0.0 ALKALINE PHOSPHATASE 96 AST (SGOT) 33 ALT 30 ALBUMIN 4.4 TOTAL PROTEIN 7.5 ETHANOL - Normal ETHANOL IN SER/PLAS <0.010 Narrative: NOTE: This result is for medical treatment only. Analysis performed using non- forensic procedures. DRUGS OF ABUSE AMPHETAMINE SCREEN Negative BARBITURATES SCREEN Negative BENZODIAZEPINE SCREEN Negative COCAINE METAB. SCREEN Negative METHADONE SCREEN Negative OPIATES SCREEN Negative OXYCODONE SCREEN Negative PHENCYCLIDINE SCREEN Negative Narrative: The expected value for all of the drugs listed above is Negative. The following drugs or drug groups have been screened for by Immunoassay at the following thresholds: Amphetamine class (1000 ng/mL) Barbiturates (200 ng/mL) Benzodiazepines (200 ng/mL) Cocaine (300 ng/mL) Methadone (300 ng/mL) Opiates (300 ng/mL) Oxycodone (100 ng/mL) PCP (25 ng/mL) NOTE: These results are for medical treatment only. Analysis performed using non-forensic procedures. POSITIVE results are NOT confirmed by a more specific alternative method unless requested. If confirmation is needed, request confirmation under separateorder. FENTANYL, URINE FENTANYL SCREEN, URINE Positive Narrative: Fentanyl has been screened for by Immunoassay at a 1 ng/ml threshold. POSITIVE results are not confirmed by a more specific alternative method unless requested. If confirmation is needed, request confirmation under separate order. NOTE: These results are for medical treatment only. Analysis performed using non-forensic procedures. All other labs were within normal range or not returned as of this dictation. EMERGENCY DEPARTMENT COURSE and DIFFERENTIAL DIAGNOSIS/MDM: Vitals: Vitals: 11/08/23 1654 11/08/23 1830 11/08/23 1929 11/08/23 1931 BP: (!) 153/89 (!) 153/108 (!) 154/103 BP Location: Left arm Patient Position: Lying Pulse: (!) 116 95 (!) 114 108 Resp: 14 18 15 Temp: TempSrc: SpO2: 98% 98% Weight: Height: Medications ondansetron (Zofran) 4 MG/2ML injection - Pyxis ADS Override Pull (has no administration in time range) ondansetron (Zofran) injection 4 mg (4 mg IntraVENous Given 11/07/23 2224) sodium chloride 0.9 % bolus 1,000 mL (0 mL IntraVENous Stopped 11/08/23 0015) ondansetron (Zofran) injection 4 mg (4 mg IntraVENous Given 11/08/23 0313) lactated ringers bolus 1,000 mL (0 mL IntraVENous Stopped 11/08/23 0500) metoclopramide (Reglan) injection 10 mg (10 mg IntraVENous Given 11/08/23 0540) diphenhydrAMINE (BENADryl) injection 25 mg (25 mg IntraVENous Given 11/08/23 0540) iopamidol (Isovue-370) 76 % injection 75 mL (75 mL IntraVENous Given 11/08/23 0931) droperidol (Inapsine) injection 0.625 mg (0.625 mg IntraVENous Given 11/08/23 1201) sodium chloride 0.9 % bolus 1,000 mL (0 mL IntraVENous Stopped 11/08/23 1404) ondansetron (Zofran) injection 4 mg (4 mg IntraVENous Given 11/08/23 1652) ketorolac (Toradol) injection 15 mg (15 mg IntraVENous Given 11/08/23 1653) ondansetron (Zofran) injection 4 mg (4 mg IntraVENous Given 11/08/23 1919) [facility] MDM elements: The patient presented with chief complaint of nausea vomiting fentanyl. The differential diagnosis associated with this patient's presentation includes nausea vomiting gastroenteritis versus gastritis versus diverticulitis versus diverticulosis versus actable nausea vomiting can Wallace to opiate and marijuana abuse. Our workup consisted of ordering/reviewing: A CBC BMP a drug screen EtOH hepatic panel BMP CBC a COVID was obtained as well. I discussed their care with none. The patient will be Transferred. The patient requires hospitalization due to alcohol rehab Patient is in agreement with this plan. Patient's care was significantly impacted by social determinants of health including opiate abuse. Results of the patient's laboratory studies shows a drug screen that was negative the fentanyl screen of the urine was positive. Urinalysis was unremarkable alcohol was less than 0.010 hepatic panel was unremarkable as well the patient's CBC was unremarkable the COVID was negative. I have signed out Emergency Department care to Karuna Mayfield CNP. We discussed the pertinent history, physical exam, completed/pending test results (if applicable) and current treatment plan. Please refer to her chart for this patients remaining Emergency ;Department course and final disposition. PROCEDURES: Unless otherwise noted below, none Procedures CRITICAL CARE TIME None FINAL IMPRESSION 1. Fentanyl use disorder, mild, abuse (CMS/HCC) (HCC) 2. Nausea and vomiting, unspecified vomiting type DISPOSITION Transfer To Another Facility 11/08/2023 03:08:34 PM PATIENT REFERRED TO: [facility] [address] [place] [address] Call for addictions treatment resources, referrals [facility] Crisis Line [phone] ([phone] Call for immediate addictions and mental health support [address] [place] [address] Go to as needed. In network with [employer] insurance DISCHARGE MEDICATIONS: Discharge Medication List as of 11/08/2023 8:21 PM (Comment: Please note this report has been produced using speech recognition software and may contain errors related to that system including errors in grammar, punctuation, and spelling, as well as words and phrases that may be inappropriate. If there are any questions or concerns please feel freeto contact the dictating provider for clarification.) FLORIDA Talavera CNP (electronically signed) Emergency Medicine Provider FLORIDA Fall CNP 11/08/232221 [id number] Phys[facility] Emergency department Note* FLORIDA Quinteros CNP - 11/07/2023 6:41 PM EDT Emergency Department Encounter Location: [facility] EMERGENCY DEPT Patient: Mayito Forbes : 1985 Date of evaluation: 11/07/2023 ED Provider: FLORIDA Mayorga CNP Time received sign-out: 0700 Mayito Forbes was checked out to me by RICH Fall. Please see his/her initial documentation for details of the patient's initial ED presentation, physical exam and completed studies. In brief, Mayito Forbes is a 38 y.o. 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 Patient reports that he injects approximately one gram of fentanyl daily. Reports last use was 199. Patient reports that he was recently admitted for medication assisted treatment, but ultimately relapsed on discharge. Patient reports that he also smokes cigarettes and marijuana. Patient present complaining of profuse nausea and vomiting. He states that he has had numerous episodes of emesis, unable to tolerate any PO intake at all. Patient requesting Vivitrol for detox. I have reviewed and interpreted all of the currently available lab results and diagnostics from this visit: Results for orders placed or performed during the hospital encounter of 11/07/23 SARS-CoV-2 Antigen Specimen: Nasal; Swab Result Value Ref Range SARS-CoV-2 Antigen Negative Negative CBC auto differential Result Value Ref Range Auto WBC 10.7 3.6 - 10.7 10*3/uL RBC 5.40 4.40 - 5.90 10*6/uL Hemoglobin 16.3 13.0 - 18.0 g/dL Hematocrit 46.2 40.0 - 52.0 % MCV 85.6 77.0 - 99.0 fL MCH 30.2 26.0 - 34.0 pg MCHC 35.3 30.5 - 36.0 % RDW 12.1 11.5 - 15.0 % Platelets 404 140 - 440 10*3/uL MPV 8.7 (L) 9.0 - 12.7 fL nRBC 0.0 0.0 - 2.0 /100 WBCs Neutrophils Relative 79.5 38.0 - 82.0 % Lymphocytes Relative 12.1 (L) 15.0 - 45.0 % Monocytes Relative 6.4 5.0 - 13.0 % Eosinophils Relative 1.2 0.0 - 6.0 % Basophils Relative 0.5 0.0 - 2.0 % Immature Grans % 0.3 0.0 - 2.0 % Neutrophils Absolute 8.5 (H) 1.8 - 7.5 10*3/uL Lymphocytes Absolute 1.3 1.0 - 4.3 10*3/uL Monocytes Absolute 0.7 0.0 - 0.9 10*3/uL Eosinophils Absolute 0.1 0.0 - 0.5 10*3/uL Basophils Absolute 0.1 0.0 - 0.2 10*3/uL Immature Grans Absolute 0.0 <0.1 10*3/uL Basic metabolic panel Result Value Ref Range SODIUM 138 135 - 145 mmol/L POTASSIUM 3.7 3.5 - 5.1 mmol/L CHLORIDE 106 98 - 107 mmol/L CARBON DIOXIDE 23 22 - 30 mmol/L UREA NITROGEN 11 9 - 20 mg/dL CREATININE 0.69 0.66 - 1.25 mg/dL GLUCOSE 108 (H) 70 - 100 mg/dL CALCIUM 9.7 8.4 - 10.4 mg/dL ANION GAP 10 3 - 13 mmol/L eGFR >90.0 >60.0 mL/min/1.73m*2 Hepatic function panel Result Value Ref Range BILIRUBIN, TOTAL 0.6 0.2 - 1.3 mg/dL BILIRUBIN, DIRECT 0.0 0.0 - 0.3 mg/dL ALKALINE PHOSPHATASE 96 38 - 126 U/L AST (SGOT) 33 15 - 46 U/L ALT 30 0 - 49 U/L ALBUMIN 4.4 3.5 - 5.0 g/dL TOTAL PROTEIN 7.5 6.3 - 8.2 g/dL Drug screen panel, emergency Result Value Ref Range AMPHETAMINE SCREEN Negative BARBITURATES SCREEN Negative BENZODIAZEPINE SCREEN Negative COCAINE METAB. SCREEN Negative METHADONE SCREEN Negative OPIATES SCREEN Negative OXYCODONE SCREEN Negative PHENCYCLIDINE SCREEN Negative Complete Urinalysis Result Value Ref Range Color, Urine Yellow Lt. Yellow Clarity, Urine Clear Clear pH, Urine 8.0 5.0 - 8.0 pH Leukocytes, Urine Negative Negative Raina/uL Nitrite, Urine Negative Negative Protein, Urine 10 (A) Negative mg/dL Glucose, Urine Normal Normal (<70) mg/dL Bilirubin, Urine Negative Negative mg/dL Ketones, Urine 20 (A) Negative mg/dL Urobilinogen, Urine Normal Normal (0-1) mg/dL Blood, Urine Negative Negative mg/dL RBC, Urine 0-2 0 - 2 /HPF WBC, Urine 3-5 0 - 5 /HPF Squamous Epithelial, Urine Negative 3 - 5 /HPF Bacteria, Urine Negative Negative /HPF Hyaline Casts, Urine Negative Negative /LPF SPECIFIC GRAVITY OF URINE (NUMERIC) 1.020 1.005 - 1.030 Ethanol Result Value Ref Range ETHANOL IN SER/PLAS <0.010 0.000 - 0.010 g/dL Fentanyl, urine Result Value Ref Range FENTANYL SCREEN, URINE Positive Negative No orders to display Final ED Course and MDM: In brief, Mayito Forbes is a 38 y.o. whose care was signed out to me by the outgoing provider. In brief, at time of sign out, workup was complete, pending disposition with patient still symptomatic with several episodes of nausea and vomiting. I was notified that patient has out of network insurance and could not be admitted to [facility] facility without being full self-pay. Patient notified of same. Collaboration took place between myself, ED Attending Dr. Lainez, Social Work, [facility], and MAT RN. Ultimately it was determined that patient would be best served at [facility] where he could be admitted medically, but also be provided with detox services. Patient is in agreement with this plan. Patient was medicated numerous times for symptoms while in ED, received total of 1.25 mg IV droperidol, 25 mg IV diphenhydramine, 10 mg IV metoclopramide, 8 mg IV Zofran, 1 L Lactated Ringers infusion, 2 L Normal saline infusion. A CT of the abdomen and pelvis with IV contrast was performed to rule out acute intraabdominal process; unremarkable. CBC, BMP, Hepatic Function Panel, and urin alysis obtained, unremarkable. Ethanol level undetectable. Urine drug screen negative, however Fentanyl sensitive screen positive, as consistent with patient's story. Patient remains in sinus tachycardia. Vital signs otherwise stable. I did discuss this patient with hospitalist at [place], who agreed to accept patient. Patient will be transferred to [facility] for admission for further treatment. Medications ondansetron (Zofran) 4 MG/2ML injection - Pyxis ADS Override Pull (has no administration in time range) ondansetron (Zofran) injection 4 mg (4 mg IntraVENous Given 11/07/23 2224) sodium chloride 0.9 % bolus 1,000 mL (0 mL IntraVENous Stopped 11/08/23 0015) ondansetron (Zofran) injection 4 mg (4 mg IntraVENous Given 11/08/23 0313) lactated ringers bolus 1,000 mL (0 mL IntraVENous Stopped 11/08/23 0500) metoclopramide (Reglan) injection 10 mg (10 mg IntraVENous Given 11/08/23 0540) diphenhydrAMINE (BENADryl) injection 25 mg (25 mg IntraVENous Given 11/08/23 0540) I am the stitchdowns toe former of record. Final Impression 1. Fentanyl use disorder, mild, abuse (CMS/HCC) ([facility]) 2. Nausea and vomiting, unspecified vomiting type DISPOSITION 11/08/2023 01:16:59 AM (Please note that portions of this note may have been completed with a voice recognition program. Efforts were made to edit the dictations but occasionally words are mis-transcribed.) FLORIDA Mayorga CNP [employer] FLORIDA Quinteros CNP 11/08/23 1609 [employer] Phone: [phone]) 903-971506-03-2024 Telephone encounter Note* Telephone Encounter - John Andrews MD - 10/31/2023 7:24 AM EDT Okay, thank you but I do not treat opioid use disorders. [employer] Phone: 1(202) 915-525406-03-2024 Miscellaneous Notes* Telephone Encounter - John Andrews MD - 10/31/2023 7:24 AM EDT Okay, thank you but I do not treat opioid use disorders. * Telephone Encounter - Jose Carcamo RN - 10/29/2023 9:26 AM EDT S: [facility] Inpatient provider requesting new patient/transition of care appointment for Opioid Use Disorder & Nausea/Vomiting. Pt discharged today 10/29/23 B: New patient appt A: Pt located in [place] per provider. R: Pt scheduled 11/02/23 with at [facility]. Provider notified. documented in this encounterSPark[facility] [id number] Nurse Note* Enzo Guzman RN - 10/29/2023 10:20 AM EDT Discharge orders reviewed. Pt home meds returned. Work release provided by attending. [id number] Nurse Note* Enzo Guzman RN - 10/29/2023 10:20 AM EDT Discharge orders reviewed. Pt home meds returned. Work release provided by attending. * Philip Foote RN - 10/27/2023 11:04 AM EDT Pt IV removed at this time per Dr. Conway. documented in this encounterSParkview Health Montpelier [id number] Telephone encounter Note* Telephone Encounter - Jose Carcamo RN - 10/29/2023 9:26 AM EDT S: [facility] Inpatient provider requesting new patient/transition of care appointment for Opioid Use Disorder & Nausea/Vomiting. Pt discharged today 10/29/23 B: New patient appt A: Pt located in [place] per provider. R: Pt scheduled 11/02/23 with at [facility]. Provider notified. [id number] NoteHospitalist Discharge Summary Mayito Forbes : 1985 Admit date: 10/25/2023 Discharge date: 10/29/2023 Admitting Physician: Josef Guerra MD Primary Care Physician: No primary care provider on file. Visit Status: Inpatient Code Status: Full Code BRIEF HOSPITAL COURSE: Mayito is a 38-year-old male, who presented with nausea and vomiting to the emergency. In the ED he was found to have a potassium of 3.4, anion gap 23, lactic acid 2.6, WBC 10.9, beta hydroxy butyrate 13.9. CT A&P showed no acute process he received 2 L bolus, diphenhydramine, Reglan and Haldol. He was admitted for stabilization of labs. ADM was consulted for opioid withdrawal syndrome and patient was treated with tramadol for anxiety, restless, cravings and chills. Patient was discharged with high motivation to keep off drugs. Acute, acute on chronic, unstable/uncontrolled chronic problems/discharge diagnoses: Intractable nausea and vomiting - Likely secondary to detox from opioids Was treated with antiemetics Opioid dependence Status post tramadol, gabapentin and baclofen detox regimen Discussed triggers, patient going to use his family for support Depression Continue Effexor Smoking Encouraged cessation History reviewed. No pertinent past medical history. Procedures: CT abdomen and pelvis 10/24: No acute process Hospital Course: See discharge diagnoses list above and medication adjustments below in med rec.The patient is discharged in improved and stable condition. Consults: IP CONSULT TO ADDICTION MEDICINE Discharge Instructions: Diet: Dietary Orders (From admission, onward) Start Ordered 10/26/23 1540 Adult diet Regular Diet effective now Question: Diet type Answer: Regular 10/26/23 1539 Activity: as tolerated Recommended Outpatient Tests: Disposition: Patient discharged in stable condition to Home. Greater than 31 minutes spent discharging the patient and coming up with patient discharge plan. Vitals: BP 119/88 Pulse 82 Temp 36.9 ?C (98.4 ?F) (Temporal) Resp 16 Ht 5' 9 (1.753 m) Wt 185 lb (83.9 kg) SpO2 99% BMI 27.32 kg/m? Pulse Ox: SpO2 Av % Min: 96 % Max: 99 % Supplemental O2: Physical Exam Vitals and nursing note reviewed. Constitutional: Appearance: Normal appearance. Eyes: Conjunctiva/sclera: Conjunctivae normal. Pupils: Pupils are equal, round, and reactive to light. Cardiovascular: Rate and Rhythm: Normal rate and regular rhythm. Heart sounds: No murmur heard. Pulmonary: Effort: No respiratory distress. Musculoskeletal: Right lower leg: No edema. Left lower leg: No edema. Skin: Capillary Refill: Capillary refill takes less than 2 seconds. Neurological: Mental Status: He is alert and oriented to person, place, and time. LABS: Recent Labs 10/27/23 0239 NA 137 K 3.7 CL 105 CO2 26 BUN 12 CREATININE 0.78 GLUCOSE 97 CALCIUM 8.3* Recent Labs 10/27/23 0239 WBC 8.6 RBC 4.69 HGB 14.4 HCT 41.6 MCV 88.7 MCH 30.7 MCHC 34.6 RDW 12.1 PLT 219 MPV 8.8* Discharge Medications: Medication List CONTINUE taking these medications promethazine 25 MG tablet Commonly known as: Phenergan venlafaxine XR 225 MG 24 hr tablet Commonly known as: Effexor XR Recommended Follow-up: John Andrews MD [facility] [address] [facility] [address] Go to at [facility] on 11/02/23 at 10:30 am. [place] is located at [address] [facility] [place] [address] Please show up 15 minutes early to get paper work completed. Complexity of Follow up: [] Moderate Complexity: follow up within 7-14 calendar days (63238) [x] Severe Complexity: follow up within 7 calendar days (77643) Follow up Testing, Pending results or Referrals at Transitional Care Visit: [x] yes [] no Instructions to MA: Please call patient on day after discharge (must document patient contacted within 2 business days of discharge). Follow up questions for MA: 1. Did you get medications filled and taking them as instructed from discharge? 2. Are you following your discharge instructions from your hospital stay? 3. Please confirm patient is scheduled for a follow up appointment within the above time frame. Signed: Sara Hughes MD Division of Hospitalist Medicine [facility] 10/29/2023, 12:50 [facility] [id number] Hospital course Narrative* Sara Hughes MD - 10/29/2023 7:32 AM EDT Hospitalist Discharge Summary Mayito Forbes : 1985 Admit date: 10/25/2023 Discharge date: 10/29/2023 Admitting Physician: Josef Guerra MD Primary Care Physician: No primary care provider on file. Visit Status: Inpatient Code Status: Full Code BRIEF HOSPITAL COURSE: Mayito is a 38-year-old male, who presented with nausea and vomiting to the emergency. In the ED he was found to have a potassium of 3.4, anion gap 23, lactic acid 2.6, WBC 10.9, beta hydroxy butyrate 13.9. CT A&P showed no acute process he received 2 L bolus, diphenhydramine, Reglan and Haldol. He was admitted for stabilization of labs. ADM was consulted for opioid withdrawal syndrome and patient was treated with tramadol for anxiety, restless, cravings and chills. Patient was discharged with high motivation to keep off drugs. Acute, acute on chronic, unstable/uncontrolled chronic problems/discharge diagnoses: Intractable nausea and vomiting - Likely secondary to detox from opioids Was treated with antiemetics Opioid dependence Status post tramadol, gabapentin and baclofen detox regimen Discussed triggers, patient going to use his family for support Depression Continue Effexor Smoking Encouraged cessation History reviewed. No pertinent past medical history. Procedures: CT abdomen and pelvis 10/24: No acute process Hospital Course: See discharge diagnoses list above and medication adjustments below in med rec.Thepatient is discharged in improved and stable condition. Consults: IP CONSULT TO ADDICTION MEDICINE Discharge Instructions: Diet: Dietary Orders (From admission, onward) Start Ordered 10/26/23 1540 Adult diet Regular Diet effective now Question: Diet type Answer: Regular 10/26/23 1539 Activity: as tolerated Recommended Outpatient Tests: Disposition: Patient discharged in stable condition to Home. Greater than 31 minutes spent discharging the patient and coming up with patient discharge plan. Vitals: BP 119/88 Pulse 82 Temp 36.9 C (98.4 F) (Temporal) Resp 16 Ht 5' 9 (1.753 m) Wt 185 lb (83.9 kg) SpO2 99% BMI 27.32 kg/m Pulse Ox: SpO2 Av % Min: 96 % Max: 99 % Supplemental O2: Physical Exam Vitals and nursing note reviewed. Constitutional: Appearance: Normal appearance. Eyes: Conjunctiva/sclera: Conjunctivae normal. Pupils: Pupils are equal, round, and reactive to light. Cardiovascular: Rate and Rhythm: Normal rate and regular rhythm. Heart sounds: No murmur heard. Pulmonary: Effort: No respiratory distress. Musculoskeletal: Right lower leg: No edema. Left lower leg: No edema. Skin: Capillary Refill: Capillary refill takes less than 2 seconds. Neurological: Mental Status: He is alert and oriented to person, place, and time. LABS: Recent Labs 10/27/23 0239 NA 137 K 3.7 CL 105 CO2 26 BUN 12 CREATININE 0.78 GLUCOSE 97 CALCIUM 8.3* Recent Labs 10/27/23 0239 WBC 8.6 RBC 4.69 HGB 14.4 HCT 41.6 MCV 88.7 MCH 30.7 MCHC 34.6 RDW 12.1 PLT 219 MPV 8.8* Discharge Medications: Medication List CONTINUE taking these medications promethazine 25 MG tablet Commonly known as: Phenergan venlafaxine XR 225 MG 24 hr tablet Commonly known as: Effexor XR Recommended Follow-up: John Andrews MD [facility] [id number] Go to at [facility] on 11/02/23 at 10:30 am. [place] is located at [address] [address] [facility] [address] Please show up 15 minutes early to get paper work completed. Complexity of Follow up: [] Moderate Complexity: follow up within 7-14 calendar days (11233) [x] Severe Complexity: follow up within 7 calendar days (78172) Follow up Testing, Pending results or Referrals at Transitional Care Visit: [x] yes [] no Instructions to MA: Please call patient on day after discharge (must document patient contacted within 2 business days of discharge). Follow up questions for MA: 1. Did you get medications filled and taking them as instructed from discharge? 2. Are you following your discharge instructions from your hospital stay? 3. Please confirm patient is scheduled for a follow up appointment within the above time frame. Signed: Sara Hughes MD Division of Hospitalist Medicine [facility] 10/29/2023, 12:50 PM documented in this [facility]05-31-2024 History of Present illness Narrative* Ole Conway MD - 10/28/2023 1:02 PM EDT Images from the original note were not included. Addiction Medicine Patient: Mayito Forbes Admit Date: 10/25/2023 Primary Care Physician: No primary care provider on file. History of Present Illness The patient continues to be monitored by chemical dependency services. He remains on tramadol regimen for opiate withdrawal. He did state that he felt much better in reference to withdrawal symptomatology. Anxiety, sweats, tremulousness, cravings, joint, muscle pain significantly improved. Denied any significant nausea, cramping. Social History Socioeconomic History Marital status: Single Spouse name: Not on file Number of children: Not on file Years of education: Not on file Highest education level: Not on file Occupational History Not on file Tobacco Use Smoking status: Every Day Packs/day: 1 Types: Cigarettes Smokeless tobacco: Not on file Vaping Use Vaping Use: Never used Substance and Sexual Activity Alcohol use: Not Currently Drug use: Yes Types: Methamphetamines Sexual activity: Not on file Other Topics Concern Not on file Social History Narrative Not on file Social Determinants of Health Financial Resource Strain: Low Risk (10/25/2023) Overall Financial Resource Strain (CARDIA) Difficulty of Paying Living Expenses: Not hard at all Food Insecurity: No Food Insecurity (10/25/2023) Hunger Vital Sign Worried About Running Out of Food in the Last Year: Never true Ran Out of Food in the Last Year: Never true Transportation Needs: No Transportation Needs (10/25/2023) PRAPARE - Transportation Lack of Transportation (Medical): No Lack of Transportation (Non-Medical): No Physical Activity: Inactive (10/25/2023) Exercise Vital Sign Days of Exercise per Week: 0 days Minutes of Exercise per Session: 0 min Stress: No Stress Concern Present (10/25/2023) [place] [employer] - Occupational Stress Questionnaire Feeling of Stress : Not at all Social Connections: Moderately Isolated (10/25/2023) Social Connection and Isolation Panel [NHANES] Frequency of Communication with Friends and Family: Three times a week Frequency of Social Gatherings with Friends and Family: Three times a week Attends Druze Services: Never Active Member of Clubs or Organizations: No Attends Club or Organization Meetings: Never Marital Status: Living with partner Intimate Partner Violence: Not At Risk (10/25/2023) Humiliation, Afraid, Rape, and Kick questionnaire Fear of Current or Ex-Partner: No Emotionally Abused: No Physically Abused: No Sexually Abused: No Housing Stability: Low Risk (10/25/2023) Housing Stability Vital Sign Unable to Pay for Housing in the Last Year: No Number of Places Lived in the Last Year: 1 Unstable Housing in the Last Year: No History reviewed. No pertinent past medical history. History reviewed. No pertinent surgical history. No family history on file. Labs Recent Results (from the past 48 hour(s)) CBC auto differential Collection Time: 10/27/23 2:39 AM Result Value Ref Range Auto WBC 8.6 3.6 - 10.7 10*3/uL RBC 4.69 4.40 - 5.90 10*6/uL Hemoglobin 14.4 13.0 - 18.0 g/dL Hematocrit 41.6 40.0 - 52.0 % MCV 88.7 77.0 - 99.0 fL MCH 30.7 26.0 - 34.0 pg MCHC 34.6 30.5 - 36.0 % RDW 12.1 11.5 - 15.0 % Platelets 219 140 - 440 10*3/uL MPV 8.8 (L) 9.0 - 12.7 fL nRBC 0.0 0.0 - 2.0 /100 WBCs Neutrophils Relative 56.0 38.0 - 82.0 % Lymphocytes Relative 33.1 15.0 - 45.0 % Monocytes Relative 7.9 5.0 - 13.0 % Eosinophils Relative 2.0 0.0 - 6.0 % Basophils Relative 0.6 0.0 - 2.0 % Immature Grans % 0.4 0.0 - 2.0 % Neutrophils Absolute 4.8 1.8 - 7.5 10*3/uL Lymphocytes Absolute 2.8 1.0 - 4.3 10*3/uL Monocytes Absolute 0.7 0.0 - 0.9 10*3/uL Eosinophils Absolute 0.2 0.0 - 0.5 10*3/uL Basophils Absolute 0.1 0.0 - 0.2 10*3/uL Immature Grans Absolute 0.0 <0.1 10*3/uL Basic metabolic panel Collection Time: 10/27/23 2:39 AM Result Value Ref Range SODIUM 137 135 - 145 mmol/L POTASSIUM 3.7 3.5 - 5.1 mmol/L CHLORIDE 105 98 - 107 mmol/L CARBON DIOXIDE 26 22 - 30 mmol/L UREA NITROGEN 12 9 - 20 mg/dL CREATININE 0.78 0.66 - 1.25 mg/dL GLUCOSE 97 70 - 100 mg/dL CALCIUM 8.3 (L) 8.4 - 10.4 mg/dL ANION GAP 6 3 - 13 mmol/L eGFR >90.0 >60.0 mL/min/1.73m*2 Medications Home Meds: Prior to Admission medications Medication Sig Start Date End Date Taking? Authorizing Provider promethazine (Phenergan) 25 MG tablet Take 25 mg by mouth every 6 hours as needed for nausea or vomiting. Yes Historical Provider, venlafaxine XR (Effexor XR) 225 MG 24 hr tablet Take 225 mg by mouth daily (with breakfast). Do notcrush, chew, or split. Yes Historical Provider, Inpatient Scheduled Meds: baclofen, 10 mg, Oral, TID gabapentin, 300 mg, Oral, TID nicotine, 1 patch, TransDERmal, Daily traMADol, 100 mg, Oral, q8h venlafaxine XR, 225 mg, Oral, Daily with breakfast Inpatient PRN Meds: PRN medications: acetaminophen OR acetaminophen, dicyclomine, hydrOXYzine pamoate, ibuprofen, loperamide, naloxone, ondansetron ODT OR ondansetron, polyethylene glycol (PEG) 3350, prochlorperazine, traZODone Exam Vitals: 10/27/23 1735 10/27/23 1959 10/28/23 0732 10/28/23 1117 BP: 124/94 131/88 107/80 117/84 BP Location: Left arm Left arm Right arm Left arm Patient Position: Sitting Sitting Sitting Sitting Pulse: 72 83 84 83 Resp: 16 18 18 20 Temp: 36.6 C (97.8 F) 36.4 C (97.5 F) 36.8 C (98.2 F) 36.3 C (97.3 F) TempSrc: Temporal Temporal Temporal Temporal SpO2: 96% 98% 97% 99% Weight: Height: Physical Exam Patient in good spirits. He is not flushed or diaphoretic. No tremors. Oriented x 4. No auditory, tactile or visual disturbances. Assessment & Plan Patient scheduled to complete last dose of tramadol later this evening. He will be monitored overnight and assuming the evening is uneventful he will be released tomorrow morning. In reference to treatment, he plans to follow-up with [facility].. He had been engaged in this program prior to admission to the hospital. Ole Conway MD Addiction Medicine 10/28/2023 at 1:03 PM -50--- minutes were spent reviewing the patient's records, evaluating the patient, entering orders,coordinating care with the treatment team, and creating a progress note. Narrative portions of the note are written utilizing [employer] software. While every effort is made todictate clearly and proofread, errors in the dictation may still occur. If there are any questions regarding the dictation please do not hesitate to contact the author. * Leslye Etienne MD - 10/28/2023 11:33 AM EDT Hospitalist Progress Note 10/28/2023 1812-0514: Please page me ([phone]) for patient care issues. [id number]: Please page [facility] Hospitalist for any issues. Subjective: Admit Date: 10/25/2023 PCP: No primary care provider on file. Room#: 232-04/232- Padmini Forbes is a 38 y.o. male who presents with Nausea and vomiting Interval History: Reports no overt nausea and vomiting, no tremors Anxious to go home but does understand that the detoxification is not done yet denies any abdominalpain. Denies chest pain, sob, abdominal pain, nausea, vomiting, diarrhea, constipation, fevers, or chills. Adult diet Regular 24HR INTAKE/OUTPUT: Intake/Output Summary (Last 24 hours) at 10/28/2023 1133 Last data filed at 10/28/2023 0905 Gross per 24 hour Intake 1150 ml Output -- Net 1150 ml LABS: CBC: Recent Labs 10/26/23 0355 10/27/23 0239 WBC 11.2* 8.6 RBC 5.51 4.69 HGB 17.0 14.4 HCT 48.5 41.6 MCV 88.0 88.7 RDW 12.3 12.1 PLT 253 219 BMP: Recent Labs 10/25/23 1140 10/26/23 0355 10/27/23 0239 NA 143 143 137 K 3.4* 3.6 3.7 CL 101 103 105 CO2 25 28 26 BUN 19 16 12 CREATININE 1.20 1.04 0.78 GLUCOSE 138* 124* 97 CALCIUM 9.2 9.0 8.3* ANIONGAP 17* 12 6 LIVER PROFILE:No results for input(s): AST, ALT, BILITOT, ALKPHOS, PROT in the last 72 hours. No lab exists for component: LABALBU PT/INR: No results for input(s): PROTIME, INR in the last 72 hours. CARDIAC ENZYMES: No results for input(s): TROPONINI in the last 72 hours. Procalcitonin: No results found for: PROCAL Objective: Vitals: BP 117/84 (BP Location: Left arm, Patient Position: Sitting) Pulse 83 Temp 36.3 C (97.3F) (Temporal) Resp 20 Ht 5' 9 (1.753 m) Wt 185 lb (83.9 kg) SpO2 99% BMI 27.32 kg/m Pulse Ox: SpO2 Av.5 % Min: 96 % Max: 99 % Supplemental O2: 10/28/2023 Physical Exam Vitals and nursing note reviewed. Constitutional: Appearance: Normal appearance. HENT: Head: Normocephalic and atraumatic. Nose: Nose normal. Mouth/Throat: Mouth: Mucous membranes are moist. Pharynx: Oropharynx is clear. No oropharyngeal exudate. Eyes: Extraocular Movements: Extraocular movements intact. Conjunctiva/sclera: Conjunctivae normal. Pupils: Pupils are equal, round, and reactive to light. Cardiovascular: Rate and Rhythm: Normal rate and regular rhythm. Pulses: Normal pulses. Heart sounds: Normal heart sounds. No murmur heard. No gallop. Pulmonary: Effort: Pulmonary effort is normal. No respiratory distress. Breath sounds: Normal breath sounds. No wheezing. Musculoskeletal: General: No swelling or tenderness. Normal range of motion. Cervical back: Normal range of motion. Skin: General: Skin is warm. Coloration: Skin is not jaundiced. Findings: No bruising. Neurological: General: No focal deficit present. Mental Status: He is alert and oriented to person, place, and time. Motor: No weakness. Psychiatric: Mood and Affect: Mood normal. Behavior: Behavior normal. Thought Content: Thought content normal. Medications: baclofen, 10 mg, Oral, TID gabapentin, 300 mg, Oral, TID nicotine, 1 patch, TransDERmal, Daily traMADol, 100 mg, Oral, q8h venlafaxine XR, 225 mg, Oral, Daily with breakfast PRN medications: acetaminophen OR acetaminophen, dicyclomine, hydrOXYzine pamoate, ibuprofen, loperamide, naloxone, ondansetron ODT OR ondansetron, polyethylene glycol (PEG) 3350, prochlorperazine, traZODone Assessment Intractable nausea and vomiting admitted for detox from opiates opioid dependence-ADM consulted and detox regimen started , feeling better, on tramadol/gabapentin and baclofen Chronic problems Depression-on Effexor tobacco abuse-encourage cessation Tobacco abuse-encourage cessation Plan Appears stable and no active nausea or vomiting today Will await ADM input for discharge planning possibly tomorrow -am labs, replace lytes prn -increase activity Diet Adult diet Regular DVT Prophylaxis [] Lovenox, [] Heparin, [] SCDs, [x] Ambulation [] Already on Anticoagulation GI Prophylaxis [] PPI, [] H2 Ezequiel, [] Carafate, [] Diet/Tube Feeds Code Status Full Code Disposition Patient requires continued admission due to detox from opiates MDM [] Low, [x] Moderate,[] High Patient's risk as above Total time spent (which include face to face and non face to face encounters) : minutes Toxic drug monitoring/narrow therapeutic index drug monitoring : # Drug name : # Route administered : # Method of monitoring : Extended Emergency Contact Information Primary Emergency Contact: Audrey Ayers Mobile Relation: Significant Other Advance Directive: Full Code Discharge planning: TBD Leslye Etienne MD Division of Hospitalist Medicine Inpatient Medical Services/[facility] [place] * Jenna Urbano - 10/27/2023 2:18 PM EDT Nutrition rescreen completed. Patient assigned a level 1 for nutrition care. * Ole Conway MD - 10/27/2023 11:48 AM EDT Images from the original note were not included. Addiction Medicine Patient: Mayito Forbes Admit Date: 10/25/2023 Primary Care Physician: No primary care provider on file. History of Present Illness The patient remains on detox regimen for opiate withdrawal syndrome. Although the patient stated that he feels a little bit better. He continues to experience intermittent withdrawal symptomatology including anxiety, restlessness, cravings, chills. He was just started on the tramadol regimen yesterday. He initially verbalized intent of leaving the hospital today. I did explain to the patient thatfrom a detoxification perspective, he had not completed detoxification, and would be at high risk for relapse where he to leave. I suggested that he stay in the hospital to complete detoxification. Fortunately, he is willing to make this commitment. We initially discussed possibility of transitioning to the detox unit, but he is not willing to transfer to [facility]. He is willing to stay at [facility] and complete detoxification. Social History Socioeconomic History Marital status: Single Spouse name: Not on file Number of children: Not on file Years of education: Not on file Highest education level: Not on file Occupational History Not on file Tobacco Use Smoking status: Every Day Packs/day: 1 Types: Cigarettes Smokeless tobacco: Not on file Vaping Use Vaping Use: Never used Substance and Sexual Activity Alcohol use: Not Currently Drug use: Yes Types: Methamphetamines Sexual activity: Not on file Other Topics Concern Not on file Social History Narrative Not on file Social Determinants of Health Financial Resource Strain: Low Risk (10/25/2023) Overall Financial Resource Strain (CARDIA) Difficulty of Paying Living Expenses: Not hard at all Food Insecurity: No Food Insecurity (10/25/2023) Hunger Vital Sign Worried About Running Out of Food in the Last Year: Never true Ran Out of Food in the Last Year: Never true Transportation Needs: No Transportation Needs (10/25/2023) PRAPARE - Transportation Lack of Transportation (Medical): No Lack of Transportation (Non-Medical): No Physical Activity: Inactive (10/25/2023) Exercise Vital Sign Days of Exercise per Week: 0 days Minutes of Exercise per Session: 0 min Stress: No Stress Concern Present (10/25/2023) [place] [employer] - Occupational Stress Questionnaire Feeling of Stress : Not at all Social Connections: Moderately Isolated (10/25/2023) Social Connection and Isolation Panel [NHANES] Frequency of Communication with Friends and Family: Three times a week Frequency of Social Gatherings with Friends and Family: Three times a week Attends Druze Services: Never Active Member of Clubs or Organizations: No Attends Club or Organization Meetings: Never Marital Status: Living with partner Intimate Partner Violence: Not At Risk (10/25/2023) Humiliation, Afraid, Rape, and Kick questionnaire Fear of Current or Ex-Partner: No Emotionally Abused: No Physically Abused: No Sexually Abused: No Housing Stability: Low Risk (10/25/2023) Housing Stability Vital Sign Unable to Pay for Housing in the Last Year: No Number of Places Lived in the Last Year: 1 Unstable Housing in the Last Year: No History reviewed. No pertinent past medical history. History reviewed. No pertinent surgical history. No family history on file. Labs Recent Results (from the past 48 hour(s)) ECG 12 lead Collection Time: 10/25/23 1:36 PM Result Value Ref Range Heart Rate 109 bpm QRSD Interval 75 ms QT Interval 0 ms QTC Interval 0 ms P [place] 76 degrees QRS [place] 75 degrees T Wave [place] 74 degrees [place] Interval 115 ms Fentanyl, urine Collection Time: 10/25/23 4:55 PM Result Value Ref Range FENTANYL SCREEN, URINE Positive Negative Drug screen panel, emergency Collection Time: 10/25/23 4:55 PM Result Value Ref Range AMPHETAMINE SCREEN Negative BARBITURATES SCREEN Negative BENZODIAZEPINE SCREEN Negative COCAINE METAB. SCREEN Negative METHADONE SCREEN Negative OPIATES SCREEN Negative OXYCODONE SCREEN Negative PHENCYCLIDINE SCREEN Negative THC SCREEN STAT Lab Collection Time: 10/25/23 4:55 PM Result Value Ref Range THC, URINE Positive Complete Urinalysis Collection Time: 10/25/23 4:55 PM Result Value Ref Range Color, Urine Yellow Lt. Yellow Clarity, Urine Clear Clear pH, Urine 6.5 5.0 - 8.0 pH Leukocytes, Urine Negative Negative Raina/uL Nitrite, Urine Negative Negative Protein, Urine 50 (A) Negative mg/dL Glucose, Urine Normal Normal (<70) mg/dL Bilirubin, Urine Negative Negative mg/dL Ketones, Urine 100 (A) Negative mg/dL Urobilinogen, Urine Normal Normal (0-1) mg/dL Blood, Urine Negative Negative mg/dL RBC, Urine 0-2 0 - 2 /HPF WBC, Urine 0-2 0 - 5 /HPF Squamous Epithelial, Urine 0-2 3 - 5 /HPF Non-Squamous Epithalial Cells, Urine 0-2 (A) Negative /HPF Bacteria, Urine Few (A) Negative /HPF Mucus, Urine Moderate (A) Negative /LPF SPECIFIC GRAVITY OF URINE (NUMERIC) >1.030 (H) 1.005 - 1.030 CBC auto differential Collection Time: 10/26/23 3:55 AM Result Value Ref Range Auto WBC 11.2 (H) 3.6 - 10.7 10*3/uL RBC 5.51 4.40 - 5.90 10*6/uL Hemoglobin 17.0 13.0 - 18.0 g/dL Hematocrit 48.5 40.0 - 52.0 % MCV 88.0 77.0 - 99.0 fL MCH 30.9 26.0 - 34.0 pg MCHC 35.1 30.5 - 36.0 % RDW 12.3 11.5 - 15.0 % Platelets 253 140 - 440 10*3/uL MPV 8.8 (L) 9.0 - 12.7 fL nRBC 0.0 0.0 - 2.0 /100 WBCs Neutrophils Relative 77.1 38.0 - 82.0 % Lymphocytes Relative 13.6 (L) 15.0 - 45.0 % Monocytes Relative 8.7 5.0 - 13.0 % Eosinophils Relative 0.0 0.0 - 6.0 % Basophils Relative 0.3 0.0 - 2.0 % Immature Grans % 0.3 0.0 - 2.0 % Neutrophils Absolute 8.7 (H) 1.8 - 7.5 10*3/uL Lymphocytes Absolute 1.5 1.0 - 4.3 10*3/uL Monocytes Absolute 1.0 (H) 0.0 - 0.9 10*3/uL Eosinophils Absolute 0.0 0.0 - 0.5 10*3/uL Basophils Absolute 0.0 0.0 - 0.2 10*3/uL Immature Grans Absolute 0.0 <0.1 10*3/uL Basic metabolic panel Collection Time: 10/26/23 3:55 AM Result Value Ref Range SODIUM 143 135 - 145 mmol/L POTASSIUM 3.6 3.5 - 5.1 mmol/L CHLORIDE 103 98 - 107 mmol/L CARBON DIOXIDE 28 22 - 30 mmol/L UREA NITROGEN 16 9 - 20 mg/dL CREATININE 1.04 0.66 - 1.25 mg/dL GLUCOSE 124 (H) 70 - 100 mg/dL CALCIUM 9.0 8.4 - 10.4 mg/dL ANION GAP 12 3 - 13 mmol/L eGFR >90.0 >60.0 mL/min/1.73m*2 CBC auto differential Collection Time: 10/27/23 2:39 AM Result Value Ref Range Auto WBC 8.6 3.6 - 10.7 10*3/uL RBC 4.69 4.40 - 5.90 10*6/uL Hemoglobin 14.4 13.0 - 18.0 g/dL Hematocrit 41.6 40.0 - 52.0 % MCV 88.7 77.0 - 99.0 fL MCH 30.7 26.0 - 34.0 pg MCHC 34.6 30.5 - 36.0 % RDW 12.1 11.5 - 15.0 % Platelets 219 140 - 440 10*3/uL MPV 8.8 (L) 9.0 - 12.7 fL nRBC 0.0 0.0 - 2.0 /100 WBCs Neutrophils Relative 56.0 38.0 - 82.0 % Lymphocytes Relative 33.1 15.0 - 45.0 % Monocytes Relative 7.9 5.0 - 13.0 % Eosinophils Relative 2.0 0.0 - 6.0 % Basophils Relative 0.6 0.0 - 2.0 % Immature Grans % 0.4 0.0 - 2.0 % Neutrophils Absolute 4.8 1.8 - 7.5 10*3/uL Lymphocytes Absolute 2.8 1.0 - 4.3 10*3/uL Monocytes Absolute 0.7 0.0 - 0.9 10*3/uL Eosinophils Absolute 0.2 0.0 - 0.5 10*3/uL Basophils Absolute 0.1 0.0 - 0.2 10*3/uL Immature Grans Absolute 0.0 <0.1 10*3/uL Basic metabolic panel Collection Time: 10/27/23 2:39 AM Result Value Ref Range SODIUM 137 135 - 145 mmol/L POTASSIUM 3.7 3.5 - 5.1 mmol/L CHLORIDE 105 98 - 107 mmol/L CARBON DIOXIDE 26 22 - 30 mmol/L UREA NITROGEN 12 9 - 20 mg/dL CREATININE 0.78 0.66 - 1.25 mg/dL GLUCOSE 97 70 - 100 mg/dL CALCIUM 8.3 (L) 8.4 - 10.4 mg/dL ANION GAP 6 3 - 13 mmol/L eGFR >90.0 >60.0 mL/min/1.73m*2 Medications Home Meds: Prior to Admission medications Medication Sig Start Date End Date Taking? Authorizing Provider promethazine (Phenergan) 25 MG tablet Take 25 mg by mouth every 6 hours as needed for nausea or vomiting. Yes Historical Provider, venlafaxine XR (Effexor XR) 225 MG 24 hr tablet Take 225 mg by mouth daily (with breakfast). Do notcrush, chew, or split. Yes Historical Provider, Inpatient Scheduled Meds: baclofen, 10 mg, Oral, TID gabapentin, 300 mg, Oral, TID nicotine, 1 patch, TransDERmal, Daily traMADol, 100 mg, Oral, q6h Followed by [START ON 10/28/2023] traMADol, 100 mg, Oral, q8h venlafaxine XR, 225 mg, Oral, Daily with breakfast Inpatient PRN Meds: PRN medications: acetaminophen OR acetaminophen, dicyclomine, hydrOXYzine pamoate, ibuprofen, loperamide, naloxone, ondansetron ODT OR ondansetron, polyethylene glycol (PEG) 3350, prochlorperazine, traZODone Exam Vitals: 10/25/23 1918 10/26/23 0801 10/26/23 19110/27/23 0727 BP: 102/64 110/73 113/71 114/81 BP Location: Right arm Left arm Left arm Left arm Patient Position: Lying Lying Lying Sitting Pulse: 105 80 95 81 Resp: 14 16 18 16 Temp: 38 C (100.4 F) 36.6 C (97.9 F) 36.9 C (98.4 F) 36.7 C (98.1 F) TempSrc: Temporal Temporal Temporal Oral SpO2: 91% 97% 97% 95% Weight: Height: Physical Exam Patient is slightly flushed, diaphoretic. Restless, anxious, slightly ill at ease. He is oriented x4. Somewhat hyperverbal at times. No tremors. No auditory, tactile or visual disturbances. Assessment & Plan At this point plan is to admit the patient to medical floor to complete detoxification. I will continue to monitor the patient and will assess him tomorrow to evaluate for discharge planning. Ole Conway MD Addiction Medicine 10/27/2023 at 11:48 AM --50-- minutes were spent reviewing the patient's records, evaluating the patient, entering orders,coordinating care with the treatment team, and creating a progress note. Narrative portions of the note are written utilizing [employer] software. While every effort is made todictate clearly and proofread, errors in the dictation may still occur. If there are any questions regarding the dictation please do not hesitate to contact the author. * Rohith Whitfield PA-C - 10/27/2023 11:18 AM EDT CDU [facility] Progress Note 10/27/2023 11:18 AM Subjective: Admit Date: 10/25/2023 PCP: No primary care provider on file. Interval History: No overnight issues. Patient feeling much better from nausea vomiting standpoint,was able to tolerate a regular breakfast today, had Citizen [place] toast. No significant abdominal pain today. States from opioid withdrawal standpoint he is feeling better with tramadol since addiction medicine started detox therapies. Overall feeling better and curious about options for continued detox whether inpatient or outpatient. Adult diet Regular No intake or output data in the 24 hours ending 10/27/23 1118 Medications: baclofen, 10 mg, Oral, TID gabapentin, 300 mg, Oral, TID nicotine, 1 patch, TransDERmal, Daily traMADol, 100 mg, Oral, q6h Followed by [START ON 10/28/2023] traMADol, 100 mg, Oral, q8h venlafaxine XR, 225 mg, Oral, Daily with breakfast LABS: Results for orders placed or performed during the hospital encounter of 10/25/23 Comprehensive metabolic panel Result Value Ref Range SODIUM 143 135 - 145 mmol/L POTASSIUM 3.4 (L) 3.5 - 5.1 mmol/L CHLORIDE 99 98 - 107 mmol/L CARBON DIOXIDE 22 22 - 30 mmol/L ANION GAP 23 (H) 3 - 13 mmol/L UREA NITROGEN 19 9 - 20 mg/dL CREATININE 1.07 0.66 - 1.25 mg/dL GLUCOSE 176 (H) 70 - 100 mg/dL CALCIUM 11.0 (H) 8.4 - 10.4 mg/dL AST (SGOT) 31 15 - 46 U/L ALT 52 (H) 0 - 49 U/L ALKALINE PHOSPHATASE 117 38 - 126 U/L ALBUMIN 5.3 (H) 3.5 - 5.0 g/dL BILIRUBIN, TOTAL 1.1 0.2 - 1.3 mg/dL TOTAL PROTEIN 9.5 (H) 6.3 - 8.2 g/dL eGFR >90.0 >60.0 mL/min/1.73m*2 Lipase Result Value Ref Range LIPASE 43 23 - 300 U/L Lactic acid with reflex Result Value Ref Range LACTIC ACID 2.6 (H) 0.7 - 2.0 mmol/L CBC Result Value Ref Range Auto WBC 10.9 (H) 3.6 - 10.7 10*3/uL RBC 6.30 (H) 4.40 - 5.90 10*6/uL Hemoglobin 19.5 (H) 13.0 - 18.0 g/dL Hematocrit 52.8 (H) 40.0 - 52.0 % MCV 83.8 77.0 - 99.0 fL MCH 31.0 26.0 - 34.0 pg MCHC 36.9 (H) 30.5 - 36.0 % RDW 11.8 11.5 - 15.0 % Platelets 287 140 - 440 10*3/uL MPV 8.8 (L) 9.0 - 12.7 fL Lactic acid with reflex Result Value Ref Range LACTIC ACID 2.0 0.7 - 2.0 mmol/L Basic metabolic panel Result Value Ref Range SODIUM 143 135 - 145 mmol/L POTASSIUM 3.4 (L) 3.5 - 5.1 mmol/L CHLORIDE 101 98 - 107 mmol/L CARBON DIOXIDE 25 22 - 30 mmol/L UREA NITROGEN 19 9 - 20 mg/dL CREATININE 1.20 0.66 - 1.25 mg/dL GLUCOSE 138 (H) 70 - 100 mg/dL CALCIUM 9.2 8.4 - 10.4 mg/dL ANION GAP 17 (H) 3 - 13 mmol/L eGFR 79.4 >60.0 mL/min/1.73m*2 Beta Hydroxybutyrate Result Value Ref Range BETA HYDROXYBUTYRATE 13.90 (H) 0.20 - 2.81 mg/dL Fentanyl, urine Result Value Ref Range FENTANYL SCREEN, URINE Positive Negative Drug screen panel, emergency Result Value Ref Range AMPHETAMINE SCREEN Negative BARBITURATES SCREEN Negative BENZODIAZEPINE SCREEN Negative COCAINE METAB. SCREEN Negative METHADONE SCREEN Negative OPIATES SCREEN Negative OXYCODONE SCREEN Negative PHENCYCLIDINE SCREEN Negative THC SCREEN STAT Lab Result Value Ref Range THC, URINE Positive Complete Urinalysis Result Value Ref Range Color, Urine Yellow Lt. Yellow Clarity, Urine Clear Clear pH, Urine 6.5 5.0 - 8.0 pH Leukocytes, Urine Negative Negative Raina/uL Nitrite, Urine Negative Negative Protein, Urine 50 (A) Negative mg/dL Glucose, Urine Normal Normal (<70) mg/dL Bilirubin, Urine Negative Negative mg/dL Ketones, Urine 100 (A) Negative mg/dL Urobilinogen, Urine Normal Normal (0-1) mg/dL Blood, Urine Negative Negative mg/dL RBC, Urine 0-2 0 - 2 /HPF WBC, Urine 0-2 0 - 5 /HPF Squamous Epithelial, Urine 0-2 3 - 5 /HPF Non-Squamous Epithalial Cells, Urine 0-2 (A) Negative /HPF Bacteria, Urine Few (A) Negative /HPF Mucus, Urine Moderate (A) Negative /LPF SPECIFIC GRAVITY OF URINE (NUMERIC) >1.030 (H) 1.005 - 1.030 Hemoglobin A1c Result Value Ref Range HEMOGLOBIN A1C 5.5 <5.7 % ESTIMATED AVERAGE GLUCOSE 111 mg/dL CBC auto differential Result Value Ref Range Auto WBC 11.2 (H) 3.6 - 10.7 10*3/uL RBC 5.51 4.40 - 5.90 10*6/uL Hemoglobin 17.0 13.0 - 18.0 g/dL Hematocrit 48.5 40.0 - 52.0 % MCV 88.0 77.0 - 99.0 fL MCH 30.9 26.0 - 34.0 pg MCHC 35.1 30.5 - 36.0 % RDW 12.3 11.5 - 15.0 % Platelets 253 140 - 440 10*3/uL MPV 8.8 (L) 9.0 - 12.7 fL nRBC 0.0 0.0 - 2.0 /100 WBCs Neutrophils Relative 77.1 38.0 - 82.0 % Lymphocytes Relative 13.6 (L) 15.0 - 45.0 % Monocytes Relative 8.7 5.0 - 13.0 % Eosinophils Relative 0.0 0.0 - 6.0 % Basophils Relative 0.3 0.0 - 2.0 % Immature Grans % 0.3 0.0 - 2.0 % Neutrophils Absolute 8.7 (H) 1.8 - 7.5 10*3/uL Lymphocytes Absolute 1.5 1.0 - 4.3 10*3/uL Monocytes Absolute 1.0 (H) 0.0 - 0.9 10*3/uL Eosinophils Absolute 0.0 0.0 - 0.5 10*3/uL Basophils Absolute 0.0 0.0 - 0.2 10*3/uL Immature Grans Absolute 0.0 <0.1 10*3/uL Basic metabolic panel Result Value Ref Range SODIUM 143 135 - 145 mmol/L POTASSIUM 3.6 3.5 - 5.1 mmol/L CHLORIDE 103 98 - 107 mmol/L CARBON DIOXIDE 28 22 - 30 mmol/L UREA NITROGEN 16 9 - 20 mg/dL CREATININE 1.04 0.66 - 1.25 mg/dL GLUCOSE 124 (H) 70 - 100 mg/dL CALCIUM 9.0 8.4 - 10.4 mg/dL ANION GAP 12 3 - 13 mmol/L eGFR >90.0 >60.0 mL/min/1.73m*2 CBC auto differential Result Value Ref Range Auto WBC 8.6 3.6 - 10.7 10*3/uL RBC 4.69 4.40 - 5.90 10*6/uL Hemoglobin 14.4 13.0 - 18.0 g/dL Hematocrit 41.6 40.0 - 52.0 % MCV 88.7 77.0 - 99.0 fL MCH 30.7 26.0 - 34.0 pg MCHC 34.6 30.5 - 36.0 % RDW 12.1 11.5 - 15.0 % Platelets 219 140 - 440 10*3/uL MPV 8.8 (L) 9.0 - 12.7 fL nRBC 0.0 0.0 - 2.0 /100 WBCs Neutrophils Relative 56.0 38.0 - 82.0 % Lymphocytes Relative 33.1 15.0 - 45.0 % Monocytes Relative 7.9 5.0 - 13.0 % Eosinophils Relative 2.0 0.0 - 6.0 % Basophils Relative 0.6 0.0 - 2.0 % Immature Grans % 0.4 0.0 - 2.0 % Neutrophils Absolute 4.8 1.8 - 7.5 10*3/uL Lymphocytes Absolute 2.8 1.0 - 4.3 10*3/uL Monocytes Absolute 0.7 0.0 - 0.9 10*3/uL Eosinophils Absolute 0.2 0.0 - 0.5 10*3/uL Basophils Absolute 0.1 0.0 - 0.2 10*3/uL Immature Grans Absolute 0.0 <0.1 10*3/uL Basic metabolic panel Result Value Ref Range SODIUM 137 135 - 145 mmol/L POTASSIUM 3.7 3.5 - 5.1 mmol/L CHLORIDE 105 98 - 107 mmol/L CARBON DIOXIDE 26 22 - 30 mmol/L UREA NITROGEN 12 9 - 20 mg/dL CREATININE 0.78 0.66 - 1.25 mg/dL GLUCOSE 97 70 - 100 mg/dL CALCIUM 8.3 (L) 8.4 - 10.4 mg/dL ANION GAP 6 3 - 13 mmol/L eGFR >90.0 >60.0 mL/min/1.73m*2 ECG 12 lead Result Value Ref Range Heart Rate 109 bpm QRSD Interval 75 ms QT Interval 0 ms QTC Interval 0 ms P [place] 76 degrees QRS [place] 75 degrees T Wave [place] 74 degrees [place] Interval 115 ms Urine Culture: No results found for this or any previous visit. Objective: Vitals: BP 114/81 (BP Location: Left arm, Patient Position: Sitting) Pulse 81 Temp 36.7 C (98.1F) (Oral) Resp 16 Ht 5' 9 (1.753 m) Wt 185 lb (83.9 kg) SpO2 95% BMI 27.32 kg/m Temp (24hrs), Av.8 C (98.3 F), Min:36.7 C (98.1 F), Max:36.9 C (98.4 F) Pulse Ox: SpO2 Av % Min: 95 % Max: 97 % Supplemental O2: General appearance: alert and cooperative with exam Lungs: clear to auscultation bilaterally Heart: regular rate and rhythm Abdomen: soft, non-tender; bowel sounds normal; no masses, no organomegaly Neurologic: No obvious focal neurologic deficits. Psychiatric: Normal affect, slightly anxious, denies any suicidal ideation or active depression. Assessment and Plan Principal Problem: Nausea and vomiting Active Problems: Opioid use disorder Nausea and vomiting, acute Suspected due to marijuana hyperemesis initially labs showed hemoconcentration/dehydration, borderline acidosis, elevated anion gap and lactic acid that is now improved/resolved after fluids and supportive care. Symptoms much improved he is tolerating a regular diet. Encouraged marijuana cessation. Opioid dependence Addiction med consulted appreciate collaboration. Started detox regimen yesterday, recommended medical admission here versus admit to detox at [facility], Dr. Conway discussed with patient, he was agreeable to medical admission here. Depression On Effexor, sees a counselor outpatient. Smoker Encouraged cessation. Discussed case with Dr. Guerra, agreed with plans for hospitalization, admitted to his service in stable condition. Due to the review of above complex data and the acute illness and/or undiagnosed new problem which may pose significant morbidity, The complexity of this case is: Moderate Advance Directive: Full Code Discharge planning: TBD - possibly tomorrow depending on detox course Rohith Whitfield PA-C, CDU Advanced Practice Provider [facility] (Comment: Please note this report has been produced using speech recognition software and may contain errors related to that system including errors in grammar, punctuation, and spelling, as well as words and phrases that may be inappropriate. If there is any questions or concerns please feel free to contact the dictating provider for clarification) * FLORIDA Scherer CNP - 10/26/2023 12:29 PM EDT CDU Progress Note 10/26/2023 12:29 PM Subjective: Admit Date: 10/25/2023 PCP: No primary care provider on file. Interval History: No overnight issues. Patient denies any nausea or vomiting today but states he doesn't feel well. Was seen by Addiction Medicine today and started on baclofen, gabapentin, and tramadol for withdrawal. Was able to tolerate a full liquid diet and will advance to regular diet today. Adult diet Clear liquid Intake/Output Summary (Last 24 hours) at 10/26/2023 1229 Last data filed at 10/26/2023 1018 Gross per 24 hour Intake -- Output 300 ml Net -300 ml Medications: sodium chloride, 100 mL/hr, Last Rate: 100 mL/hr (10/26/23 0524) baclofen, 10 mg, Oral, TID gabapentin, 300 mg, Oral, TID nicotine, 1 patch, TransDERmal, Daily traMADol, 100 mg, Oral, Q4H Followed by [START ON 10/27/2023] traMADol, 100 mg, Oral, q6h Followed by [START ON 10/28/2023] traMADol, 100 mg, Oral, q8h venlafaxine XR, 225 mg, Oral, Daily with breakfast LABS: Results for orders placed or performed during the hospital encounter of 10/25/23 Comprehensive metabolic panel Result Value Ref Range SODIUM 143 135 - 145 mmol/L POTASSIUM 3.4 (L) 3.5 - 5.1 mmol/L CHLORIDE 99 98 - 107 mmol/L CARBON DIOXIDE 22 22 - 30 mmol/L ANION GAP 23 (H) 3 - 13 mmol/L UREA NITROGEN 19 9 - 20 mg/dL CREATININE 1.07 0.66 - 1.25 mg/dL GLUCOSE 176 (H) 70 - 100 mg/dL CALCIUM 11.0 (H) 8.4 - 10.4 mg/dL AST (SGOT) 31 15 - 46 U/L ALT 52 (H) 0 - 49 U/L ALKALINE PHOSPHATASE 117 38 - 126 U/L ALBUMIN 5.3 (H) 3.5 - 5.0 g/dL BILIRUBIN, TOTAL 1.1 0.2 - 1.3 mg/dL TOTAL PROTEIN 9.5 (H) 6.3 - 8.2 g/dL eGFR >90.0 >60.0 mL/min/1.73m*2 Lipase Result Value Ref Range LIPASE 43 23 - 300 U/L Lactic acid with reflex Result Value Ref Range LACTIC ACID 2.6 (H) 0.7 - 2.0 mmol/L CBC Result Value Ref Range Auto WBC 10.9 (H) 3.6 - 10.7 10*3/uL RBC 6.30 (H) 4.40 - 5.90 10*6/uL Hemoglobin 19.5 (H) 13.0 - 18.0 g/dL Hematocrit 52.8 (H) 40.0 - 52.0 % MCV 83.8 77.0 - 99.0 fL MCH 31.0 26.0 - 34.0 pg MCHC 36.9 (H) 30.5 - 36.0 % RDW 11.8 11.5 - 15.0 % Platelets 287 140 - 440 10*3/uL MPV 8.8 (L) 9.0 - 12.7 fL Lactic acid with reflex Result Value Ref Range LACTIC ACID 2.0 0.7 - 2.0 mmol/L Basic metabolic panel Result Value Ref Range SODIUM 143 135 - 145 mmol/L POTASSIUM 3.4 (L) 3.5 - 5.1 mmol/L CHLORIDE 101 98 - 107 mmol/L CARBON DIOXIDE 25 22 - 30 mmol/L UREA NITROGEN 19 9 - 20 mg/dL CREATININE 1.20 0.66 - 1.25 mg/dL GLUCOSE 138 (H) 70 - 100 mg/dL CALCIUM 9.2 8.4 - 10.4 mg/dL ANION GAP 17 (H) 3 - 13 mmol/L eGFR 79.4 >60.0 mL/min/1.73m*2 Beta Hydroxybutyrate Result Value Ref Range BETA HYDROXYBUTYRATE 13.90 (H) 0.20 - 2.81 mg/dL Fentanyl, urine Result Value Ref Range FENTANYL SCREEN, URINE Positive Negative Drug screen panel, emergency Result Value Ref Range AMPHETAMINE SCREEN Negative BARBITURATES SCREEN Negative BENZODIAZEPINE SCREEN Negative COCAINE METAB. SCREEN Negative METHADONE SCREEN Negative OPIATES SCREEN Negative OXYCODONE SCREEN Negative PHENCYCLIDINE SCREEN Negative THC SCREEN STAT Lab Result Value Ref Range THC, URINE Positive Complete Urinalysis Result Value Ref Range Color, Urine Yellow Lt. Yellow Clarity, Urine Clear Clear pH, Urine 6.5 5.0 - 8.0 pH Leukocytes, Urine Negative Negative Raina/uL Nitrite, Urine Negative Negative Protein, Urine 50 (A) Negative mg/dL Glucose, Urine Normal Normal (<70) mg/dL Bilirubin, Urine Negative Negative mg/dL Ketones, Urine 100 (A) Negative mg/dL Urobilinogen, Urine Normal Normal (0-1) mg/dL Blood, Urine Negative Negative mg/dL RBC, Urine 0-2 0 - 2 /HPF WBC, Urine 0-2 0 - 5 /HPF Squamous Epithelial, Urine 0-2 3 - 5 /HPF Non-Squamous Epithalial Cells, Urine 0-2 (A) Negative /HPF Bacteria, Urine Few (A) Negative /HPF Mucus, Urine Moderate (A) Negative /LPF SPECIFIC GRAVITY OF URINE (NUMERIC) >1.030 (H) 1.005 - 1.030 Hemoglobin A1c Result Value Ref Range HEMOGLOBIN A1C 5.5 <5.7 % ESTIMATED AVERAGE GLUCOSE 111 mg/dL CBC auto differential Result Value Ref Range Auto WBC 11.2 (H) 3.6 - 10.7 10*3/uL RBC 5.51 4.40 - 5.90 10*6/uL Hemoglobin 17.0 13.0 - 18.0 g/dL Hematocrit 48.5 40.0 - 52.0 % MCV 88.0 77.0 - 99.0 fL MCH 30.9 26.0 - 34.0 pg MCHC 35.1 30.5 - 36.0 % RDW 12.3 11.5 - 15.0 % Platelets 253 140 - 440 10*3/uL MPV 8.8 (L) 9.0 - 12.7 fL nRBC 0.0 0.0 - 2.0 /100 WBCs Neutrophils Relative 77.1 38.0 - 82.0 % Lymphocytes Relative 13.6 (L) 15.0 - 45.0 % Monocytes Relative 8.7 5.0 - 13.0 % Eosinophils Relative 0.0 0.0 - 6.0 % Basophils Relative 0.3 0.0 - 2.0 % Immature Grans % 0.3 0.0 - 2.0 % Neutrophils Absolute 8.7 (H) 1.8 - 7.5 10*3/uL Lymphocytes Absolute 1.5 1.0 - 4.3 10*3/uL Monocytes Absolute 1.0 (H) 0.0 - 0.9 10*3/uL Eosinophils Absolute 0.0 0.0 - 0.5 10*3/uL Basophils Absolute 0.0 0.0 - 0.2 10*3/uL Immature Grans Absolute 0.0 <0.1 10*3/uL Basic metabolic panel Result Value Ref Range SODIUM 143 135 - 145 mmol/L POTASSIUM 3.6 3.5 - 5.1 mmol/L CHLORIDE 103 98 - 107 mmol/L CARBON DIOXIDE 28 22 - 30 mmol/L UREA NITROGEN 16 9 - 20 mg/dL CREATININE 1.04 0.66 - 1.25 mg/dL GLUCOSE 124 (H) 70 - 100 mg/dL CALCIUM 9.0 8.4 - 10.4 mg/dL ANION GAP 12 3 - 13 mmol/L eGFR >90.0 >60.0 mL/min/1.73m*2 ECG 12 lead Result Value Ref Range Heart Rate 109 bpm QRSD Interval 75 ms QT Interval 0 ms QTC Interval 0 ms P [place] 76 degrees QRS [place] 75 degrees T Wave [place] 74 degrees [place] Interval 115 ms Urine Culture: No results found for this or any previous visit. Objective: Vitals: BP 110/73 (BP Location: Left arm, Patient Position: Lying) Pulse 80 Temp 36.6 C (97.9 F) (Temporal) Resp 16 Ht 5' 9 (1.753 m) Wt 185 lb (83.9 kg) SpO2 97% BMI 27.32 kg/m Temp (24hrs), Av.6 C (99.6 F), Min:36.6 C (97.9 F), Max:38 C (100.4 F) Pulse Ox: SpO2 Av.7 % Min: 91 % Max: 98 % Supplemental O2: General appearance: alert and cooperative with exam Lungs: clear to auscultation bilaterally Heart: regular rate and rhythm, S1, S2 normal, no murmur, click, rub or gallop Abdomen: soft, non-tender; bowel sounds normal; no masses, no organomegaly Extremities: extremities normal, atraumatic, no cyanosis or edema Neurologic: No obvious focal neurologic deficits. Psychiatric: Normal affect, denies any suicidal ideation or active depression. Assessment and Plan Principal Problem: Nausea and vomiting 1. Nausea, vomiting 2/2 to cannabinoid hyperemesis -improving -continue antiemetics, Zofran, Compazine -diet advance to regular -continue NS at 100 ml/h 2. Elevated anion gap -resolved 3. Lactic acidosis -resolved 4. Marijuana use -has attempted in the past to quit and is willing -Addiction Medicine following, started patient on detox regimen for opiate withdrawal 5. Depression -continue Effexor 6. Tobacco use -encourage smoking cessation -initiate NRT Due to the review of above complex data and the acute illness and/or undiagnosed new problem which may pose significant morbidity, The complexity of this case is: Moderate Advance Directive: Full Code Discharge planning: TBD FLORIDA Scherer CNP, (Comment: Please note this report has been produced using speech recognition software and may contain errors related to that system including errors in grammar, punctuation, and spelling, as well as words and phrases that may be inappropriate. If there is any questions or concerns please feel free to contact the dictating provider for clarification) documented in this [facility]05-31-2024 NoteHospitalist Progress Note 10/28/2023 [id number]: Please page me ([phone]) for patient care issues. [phone]: Please page [facility] Hospitalist for any issues. Subjective: Admit Date: 10/25/2023 PCP: No primary care provider on file. Room#: 232-04/232-04 Padmini Forbes is a 38 y.o. male who presents with Nausea and vomiting Interval History: Reports no overt nausea and vomiting, no tremors Anxious to go home but does understand that the detoxification is not done yet denies any abdominal pain. Denies chest pain, sob, abdominal pain, nausea, vomiting, diarrhea, constipation, fevers, or chills. Adult diet Regular 24HR INTAKE/OUTPUT: Intake/Output Summary (Last 24 hours) at 10/28/2023 1133 Last data filed at 10/28/2023 0905 Gross per 24 hour Intake 1150 ml Output -- Net 1150 ml LABS: CBC: Recent Labs 10/26/23 0355 10/27/23 0239 WBC 11.2* 8.6 RBC 5.51 4.69 HGB 17.0 14.4 HCT 48.5 41.6 MCV 88.0 88.7 RDW 12.3 12.1 PLT 253 219 BMP: Recent Labs 10/25/23 1140 10/26/23 0355 10/27/23 0239 NA 143 143 137 K 3.4* 3.6 3.7 CL 101 103 105 CO2 25 28 26 BUN 19 16 12 CREATININE 1.20 1.04 0.78 GLUCOSE 138* 124* 97 CALCIUM 9.2 9.0 8.3* ANIONGAP 17* 12 6 LIVER PROFILE:No results for input(s): AST, ALT, BILITOT, ALKPHOS, PROT in the last 72 hours. No lab exists for component: LABALBU PT/INR: No results for input(s): PROTIME, INR in the last 72 hours. CARDIAC ENZYMES: No results for input(s): TROPONINI in the last 72 hours. Procalcitonin: No results found for: PROCAL Objective: Vitals: BP 117/84 (BP Location: Left arm, Patient Position: Sitting) Pulse 83 Temp 36.3 ?C (97.3 ?F) (Temporal) Resp 20 Ht 5' 9 (1.753 m) Wt 185 lb (83.9 kg) SpO2 99% BMI 27.32 kg/m? Pulse Ox: SpO2 Av.5 % Min: 96 % Max: 99 % Supplemental O2: 10/28/2023 Physical Exam Vitals and nursing note reviewed. Constitutional: Appearance: Normal appearance. HENT: Head: Normocephalic and atraumatic. Nose: Nose normal. Mouth/Throat: Mouth: Mucous membranes are moist. Pharynx: Oropharynx is clear. No oropharyngeal exudate. Eyes: Extraocular Movements: Extraocular movements intact. Conjunctiva/sclera: Conjunctivae normal. Pupils: Pupils are equal, round, and reactive to light. Cardiovascular: Rate and Rhythm: Normal rate and regular rhythm. Pulses: Normal pulses. Heart sounds: Normal heart sounds. No murmur heard. No gallop. Pulmonary: Effort: Pulmonary effort is normal. No respiratory distress. Breath sounds: Normal breath sounds. No wheezing. Musculoskeletal: General: No swelling or tenderness. Normal range of motion. Cervical back: Normal range of motion. Skin: General: Skin is warm. Coloration: Skin is not jaundiced. Findings: No bruising. Neurological: General: No focal deficit present. Mental Status: He is alert and oriented to person, place, and time. Motor: No weakness. Psychiatric: Mood and Affect: Mood normal. Behavior: Behavior normal. Thought Content: Thought content normal. Medications: baclofen, 10 mg, Oral, TID gabapentin, 300 mg, Oral, TID nicotine, 1 patch, TransDERmal, Daily traMADol, 100 mg, Oral, q8h venlafaxine XR, 225 mg, Oral, Daily with breakfast PRN medications: acetaminophen OR acetaminophen, dicyclomine, hydrOXYzine pamoate, ibuprofen, loperamide, naloxone, ondansetron ODT OR ondansetron, polyethylene glycol (PEG) 3350, prochlorperazine, traZODone Assessment Intractable nausea and vomiting admitted for detox from opiates opioid dependence-ADM consulted and detox regimen started , feeling better, on tramadol/gabapentin and baclofen Chronic problems Depression-on Effexor tobacco abuse-encourage cessation Tobacco abuse-encourage cessation Plan Appears stable and no active nausea or vomiting today Will await ADM input for discharge planning possibly tomorrow -am labs, replace lytes prn -increase activity Diet Adult diet Regular DVT Prophylaxis [] Lovenox, [] Heparin, [] SCDs, [x] Ambulation [] Already on Anticoagulation GI Prophylaxis [] PPI, [] H2 Ezequiel, [] Carafate, [] Diet/Tube Feeds Code Status Full Code Disposition Patient requires continued admission due to detox from opiates MDM [] Low, [x] Moderate,[] High Patient's risk as above Total time spent (which include face to face and non face to face encounters) : minutes Toxic drug monitoring/narrow therapeutic index drug monitoring : # Drug name : # Route administered : # Method of monitoring : Extended Emergency Contact Information Primary Emergency Contact: Audrey Ayers Mobile Relation: Significant Other Advance Directive: Full Code Discharge planning: TBD Leslye Etienne MD Division of Hospitalist Medicine Inpatient Medical Services/[facility]05-31-2024 Note* Care Coordination - Sirena Plunkett RN - 10/28/2023 10:48 AM EDT Care Managment Initial Assessment Date: 10/28/2023 Patient Name: Mayito Forbes : 1985 Patient Information Source of Information: Patient Cognition/Language: WFL - Within Functional Limits Permission given to speak with patient personal banking representative/caregiver as indicated: Yes (Audrey Ayers (Significant Other) [phone]) Confirmation of Payer with patient/family: Yes Payer Name: [employer] 2- [employer]. [place]: No Confirmation of Primary Care Physician: No PCP (will place list on AVS) Primary Caregiver: Self If assistance needed, confirmed caregiver ready, willing and able to care for patient at discharge: Confirmed with: Living Arrangements Current Residence: Apartment Number of Floors 1 Number of Entry Steps: 5 or more (13) Bed/Bath Levels: Both first floor Facility: Facility Name: Plan to Return: Lives with: Spouse/significant other, Children Support Systems: Spouse/significant other, Children Activities of Daily Living Ambulation: Independent Bathing/Dressing: Independent Elimination/Continence/Toileting: Independent Feeding: Independent Who Assists with Activities of Daily Living: Instrumental Activities of Daily Living Prescription Coverage: Yes Pharmacy Used: [facility] Medication Management: Independent Transportation/Shopping: Independent Transportation Mode: Car Needs Assistance with Transportation at Discharge: No (girlfriend will transport) Meal Preparation: Independent Laundry/Cleaning: Independent Finances/Bill Paying: Independent Communication: Independent Types of Care Services/Equipment Utilized Care Services: Dialysis Type: NA Durable Medical Equipment: Other (Comment) (none) Patient's Goal/Discharge Plan Patient expects to be discharged to: home Discharge Planning Actions: Continue to follow Patient's Choice Rights and [employer] and Collaborative Relationships Disclosed as Indicated for Post-Acute Care: Interdisciplinary Team Engagement: Social Work Referral for: Additional Information: Spoke with patient and girlfriend at bedside. Introduced self and role. Discharge planning needs discussed. Patient denies any needs at this time. Patient in hospital due to abdominal pain, N/V and diarrhea. Patient positive for marijuana and fentanyl. Addiction med consulted. Patient lives at home with girlfiend and child and denies any needs. States he is going home at discharge and will follow with his treatment plan. No other details given. TCC will continue to follow. Sirena Plunkett RN [facility] [id number] Note* Care Coordination - Sirena Plunkett RN - 10/28/2023 10:48 AM EDT Care Managment Initial Assessment Date: 10/28/2023 Patient Name: Mayito Forbes : 1985 Patient Information Source of Information: Patient Cognition/Language: WFL - Within Functional Limits Permission given to speak with patient personal banking representative/caregiver as indicated: Yes (Audrey Ayers (Significant Other) [phone]) Confirmation of Payer with patient/family: Yes Payer Name: [employer] 2- [employer] Med[employer]. [place]: No Confirmation of Primary Care Physician: No PCP (will place list on AVS) Primary Caregiver: Self If assistance needed, confirmed caregiver ready, willing and able to care for patient at discharge: Confirmed with: Living Arrangements Current Residence: Apartment Number of Floors 1 Number of Entry Steps: 5 or more (13) Bed/Bath Levels: Both first floor Facility: Facility Name: Plan to Return: Lives with: Spouse/significant other, Children Support Systems: Spouse/significant other, Children Activities of Daily Living Ambulation: Independent Bathing/Dressing: Independent Elimination/Continence/Toileting: Independent Feeding: Independent Who Assists with Activities of Daily Living: Instrumental Activities of Daily Living Prescription Coverage: Yes Pharmacy Used: [facility] Medication Management: Independent Transportation/Shopping: Independent Transportation Mode: Car Needs Assistance with Transportation at Discharge: No (girlfriend will transport) Meal Preparation: Independent Laundry/Cleaning: Independent Finances/Bill Paying: Independent Communication: Independent Types of Care Services/Equipment Utilized Care Services: Dialysis Type: NA Durable Medical Equipment: Other (Comment) (none) Patient's Goal/Discharge Plan Patient expects to be discharged to: home Discharge Planning Actions: Continue to follow Patient's Choice Rights and [employer] and Collaborative Relationships Disclosed as Indicated for Post-Acute Care: Interdisciplinary Team Engagement: Social Work Referral for: Additional Information: Spoke with patient and girlfriend at bedside. Introduced self and role. Discharge planning needs discussed. Patient denies any needs at this time. Patient in hospital due to abdominal pain, N/V and diarrhea. Patient positive for marijuana and fentanyl. Addiction med consulted. Patient lives at home with girlfiend and child and denies any needs. States he is going home at discharge and will follow with his treatment plan. No other details given. TCC will continue to follow. Sirena Plunkett RN [id number] Miscellaneous Notes* Care Coordination - Sirena Plunkett RN - 10/28/2023 10:48 AM EDT Care Managment Initial Assessment Date: 10/28/2023 Patient Name: Mayito Forbes : 1985 Patient Information Source of Information: Patient Cognition/Language: WFL - Within Functional Limits Permission given to speak with patient personal banking representative/caregiver as indicated: Yes (Audrey Ayers (Significant Other) [phone]) Confirmation of Payer with patient/family: Yes Payer Name: [employer] 2- [employer] Medca[employer]. : No Confirmation of Primary Care Physician: No PCP (will place list on AVS) Primary Caregiver: Self If assistance needed, confirmed caregiver ready, willing and able to care for patient at discharge: Confirmed with: Living Arrangements Current Residence: Apartment Number of Floors 1 Number of Entry Steps: 5 or more (13) Bed/Bath Levels: Both first floor Facility: Facility Name: Plan to Return: Lives with: Spouse/significant other, Children Support Systems: Spouse/significant other, Children Activities of Daily Living Ambulation: Independent Bathing/Dressing: Independent Elimination/Continence/Toileting: Independent Feeding: Independent Who Assists with Activities of Daily Living: Instrumental Activities of Daily Living Prescription Coverage: Yes Pharmacy Used: [facility] Medication Management: Independent Transportation/Shopping: Independent Transportation Mode: Car Needs Assistance with Transportation at Discharge: No (girlfriend will transport) Meal Preparation: Independent Laundry/Cleaning: Independent Finances/Bill Paying: Independent Communication: Independent Types of Care Services/Equipment Utilized Care Services: Dialysis Type: NA Durable Medical Equipment: Other (Comment) (none) Patient's Goal/Discharge Plan Patient expects to be discharged to: home Discharge Planning Actions: Continue to follow Patient's Choice Rights and [employer] and Collaborative Relationships Disclosed as Indicated for Post-Acute Care: Interdisciplinary Team Engagement: Social Work Referral for: Additional Information: Spoke with patient and girlfriend at bedside. Introduced self and role. Discharge planning needs discussed. Patient denies any needs at this time. Patient in hospital due to abdominal pain, N/V and diarrhea. Patient positive for marijuana and fentanyl. Addiction med consulted. Patient lives at home with girlfiend and child and denies any needs. States he is going home at discharge and will follow with his treatment plan. No other details given. TCC will continue to follow. Sirena Plunkett RN * Care Plan - Mary Pope RN - 10/27/2023 6:10 PM EDT The patient is Moderately Stable - Low risk of patient condition declining or worsening The patient's goals for the shift include rest and anxiety control The clinical goals for the shift include HDS this shift Over the shift, the patient did not make progress toward the following goals. Barriers to progression include none. Recommendations to address these barriers include none. * Significant Event - Josef Guerra MD - 10/27/2023 11:11 AM EDT Transfer from U to service. Josef Guerra MD Division of Hospitalist Medicine [facility] documented in this [facility]05-31-2024 Hospital Discharge instructions* Discharge Instr - Other Orders* Sirena Plunkett RN - 10/28/2023 10:[address] Guo is in [place] [phone] [place] has several drs at their practices [phone] or [phone] [facility] [phone] * Attachments The following attachments cannot be sent through Care Everywhere. * Dealing With Nausea and Vomiting From the Drugs You Take (South African) * Drug Abuse and Drug Addiction Discharge Instructions (South African) documented in this [facility]05-30-2024 Plan of care note* Care Plan - Mary Pope RN - 10/27/2023 6:10 PM EDT The patient is Moderately Stable - Low risk of patient condition declining or worsening The patient's goals for the shift include rest and anxiety control The clinical goals for the shift include HDS this shift Over the shift, the patient did not make progress toward the following goals. Barriers to progression include none. Recommendations to address these barriers include none. [id number] NoteCDU MARYELLEN Progress Note 10/27/2023 11:18 AM Subjective: Admit Date: 10/25/2023 PCP: No primary care provider on file. Interval History: No overnight issues. Patient feeling much better from nausea vomiting standpoint, was able to tolerate a regular breakfast today, had Citizen [place] toast. No significant abdominal pain today. States from opioid withdrawal standpoint he is feeling better with tramadol since addiction medicine started detox therapies. Overall feeling better and curious about options for continued detox whether inpatient or outpatient. Adult diet Regular No intake or output data in the 24 hours ending 10/27/23 1118 Medications: baclofen, 10 mg, Oral, TID gabapentin, 300 mg, Oral, TID nicotine, 1 patch, TransDERmal, Daily traMADol, 100 mg, Oral, q6h Followed by [START ON 10/28/2023] traMADol, 100 mg, Oral, q8h venlafaxine XR, 225 mg, Oral, Daily with breakfast LABS: Results for orders placed or performed during the hospital encounter of 10/25/23 Comprehensive metabolic panel Result Value Ref Range SODIUM 143 135 - 145 mmol/L POTASSIUM 3.4 (L) 3.5 - 5.1 mmol/L CHLORIDE 99 98 - 107 mmol/L CARBON DIOXIDE 22 22 - 30 mmol/L ANION GAP 23 (H) 3 - 13 mmol/L UREA NITROGEN 19 9 - 20 mg/dL CREATININE 1.07 0.66 - 1.25 mg/dL GLUCOSE 176 (H) 70 - 100 mg/dL CALCIUM 11.0 (H) 8.4 - 10.4 mg/dL AST (SGOT) 31 15 - 46 U/L ALT 52 (H) 0 - 49 U/L ALKALINE PHOSPHATASE 117 38 - 126 U/L ALBUMIN 5.3 (H) 3.5 - 5.0 g/dL BILIRUBIN, TOTAL 1.1 0.2 - 1.3 mg/dL TOTAL PROTEIN 9.5 (H) 6.3 - 8.2 g/dL eGFR >90.0 >60.0 mL/min/1.73m*2 Lipase Result Value Ref Range LIPASE 43 23 - 300 U/L Lactic acid with reflex Result Value Ref Range LACTIC ACID 2.6 (H) 0.7 - 2.0 mmol/L CBC Result Value Ref Range Auto WBC 10.9 (H) 3.6 - 10.7 10*3/uL RBC 6.30 (H) 4.40 - 5.90 10*6/uL Hemoglobin 19.5 (H) 13.0 - 18.0 g/dL Hematocrit 52.8 (H) 40.0 - 52.0 % MCV 83.8 77.0 - 99.0 fL MCH 31.0 26.0 - 34.0 pg MCHC 36.9 (H) 30.5 - 36.0 % RDW 11.8 11.5 - 15.0 % Platelets 287 140 - 440 10*3/uL MPV 8.8 (L) 9.0 - 12.7 fL Lactic acid with reflex Result Value Ref Range LACTIC ACID 2.0 0.7 - 2.0 mmol/L Basic metabolic panel Result Value Ref Range SODIUM 143 135 - 145 mmol/L POTASSIUM 3.4 (L) 3.5 - 5.1 mmol/L CHLORIDE 101 98 - 107 mmol/L CARBON DIOXIDE 25 22 - 30 mmol/L UREA NITROGEN 19 9 - 20 mg/dL CREATININE 1.20 0.66 - 1.25 mg/dL GLUCOSE 138 (H) 70 - 100 mg/dL CALCIUM 9.2 8.4 - 10.4 mg/dL ANION GAP 17 (H) 3 - 13 mmol/L eGFR 79.4 >60.0 mL/min/1.73m*2 Beta Hydroxybutyrate Result Value Ref Range BETA HYDROXYBUTYRATE 13.90 (H) 0.20 - 2.81 mg/dL Fentanyl, urine Result Value Ref Range FENTANYL SCREEN, URINE Positive Negative Drug screen panel, emergency Result Value Ref Range AMPHETAMINE SCREEN Negative BARBITURATES SCREEN Negative BENZODIAZEPINE SCREEN Negative COCAINE METAB. SCREEN Negative METHADONE SCREEN Negative OPIATES SCREEN Negative OXYCODONE SCREEN Negative PHENCYCLIDINE SCREEN Negative THC SCREEN STAT Lab Result Value Ref Range THC, URINE Positive Complete Urinalysis Result Value Ref Range Color, Urine Yellow Lt. Yellow Clarity, Urine Clear Clear pH, Urine 6.5 5.0 - 8.0 pH Leukocytes, Urine Negative Negative Raina/uL Nitrite, Urine Negative Negative Protein, Urine 50 (A) Negative mg/dL Glucose, Urine Normal Normal (<70) mg/dL Bilirubin, Urine Negative Negative mg/dL Ketones, Urine 100 (A) Negative mg/dL Urobilinogen, Urine Normal Normal (0-1) mg/dL Blood, Urine Negative Negative mg/dL RBC, Urine 0-2 0 - 2 /HPF WBC, Urine 0-2 0 - 5 /HPF Squamous Epithelial, Urine 0-2 3 - 5 /HPF Non-Squamous Epithalial Cells, Urine 0-2 (A) Negative /HPF Bacteria, Urine Few (A) Negative /HPF Mucus, Urine Moderate (A) Negative /LPF SPECIFIC GRAVITY OF URINE (NUMERIC) >1.030 (H) 1.005 - 1.030 Hemoglobin A1c Result Value Ref Range HEMOGLOBIN A1C 5.5 <5.7 % ESTIMATED AVERAGE GLUCOSE 111 mg/dL CBC auto differential Result Value Ref Range Auto WBC 11.2 (H) 3.6 - 10.7 10*3/uL RBC 5.51 4.40 - 5.90 10*6/uL Hemoglobin 17.0 13.0 - 18.0 g/dL Hematocrit 48.5 40.0 - 52.0 % MCV 88.0 77.0 - 99.0 fL MCH 30.9 26.0 - 34.0 pg MCHC 35.1 30.5 - 36.0 % RDW 12.3 11.5 - 15.0 % Platelets 253 140 - 440 10*3/uL MPV 8.8 (L) 9.0 - 12.7 fL nRBC 0.0 0.0 - 2.0 /100 WBCs Neutrophils Relative 77.1 38.0 - 82.0 % Lymphocytes Relative 13.6 (L) 15.0 - 45.0 % Monocytes Relative 8.7 5.0 - 13.0 % Eosinophils Relative 0.0 0.0 - 6.0 % Basophils Relative 0.3 0.0 - 2.0 % Immature Grans % 0.3 0.0 - 2.0 % Neutrophils Absolute 8.7 (H) 1.8 - 7.5 10*3/uL Lymphocytes Absolute 1.5 1.0 - 4.3 10*3/uL Monocytes Absolute 1.0 (H) 0.0 - 0.9 10*3/uL Eosinophils Absolute 0.0 0.0 - 0.5 10*3/uL Basophils Absolute 0.0 0.0 - 0.2 10*3/uL Immature Grans Absolute 0.0 <0.1 10*3/uL Basic metabolic panel Result Value Ref Range SODIUM 143 135 - 145 mmol/L POTASSIUM 3.6 3.5 - 5.1 mmol/L (more content not included)...[facility]05-30-2024 Note* Significant Event - Josef Guerra MD - 10/27/2023 11:11 AM EDT Transfer from CDU to service. Josef Guerra MD Division of Hospitalist Medicine [facility] [employer] Work Phone: [phone] Note* Significant Event - Josef Guerra MD - 10/27/2023 11:11 AM EDT Transfer from CDU to service. Josef Guerra MD Division of Hospitalist Medicine [facility] [employer] Work Phone: [phone] Nurse Note* Philip Foote RN - 10/27/2023 11:04 AM EDT Pt IV removed at this time per Dr. Conway. [employer] [facility] [id number] NoteCDU Progress Note 10/26/2023 12:29 PM Subjective: Admit Date: 10/25/2023 PCP: No primary care provider on file. Interval History: No overnight issues. Patient denies any nausea or vomiting today but states he doesn't feel well. Was seen by Addiction Medicine today and started on baclofen, gabapentin, and tramadol for withdrawal. Was able to tolerate a full liquid diet and will advance to regular diet today. Adult diet Clear liquid Intake/Output Summary (Last 24 hours) at 10/26/2023 1229 Last data filed at 10/26/2023 1018 Gross per 24 hour Intake -- Output 300 ml Net -300 ml Medications: sodium chloride, 100 mL/hr, Last Rate: 100 mL/hr (10/26/23 0524) baclofen, 10 mg, Oral, TID gabapentin, 300 mg, Oral, TID nicotine, 1 patch, TransDERmal, Daily traMADol, 100 mg, Oral, Q4H Followed by [START ON 10/27/2023] traMADol, 100 mg, Oral, q6h Followed by [START ON 10/28/2023] traMADol, 100 mg, Oral, q8h venlafaxine XR, 225 mg, Oral, Daily with breakfast LABS: Results for orders placed or performed during the hospital encounter of 10/25/23 Comprehensive metabolic panel Result Value Ref Range SODIUM 143 135 - 145 mmol/L POTASSIUM 3.4 (L) 3.5 - 5.1 mmol/L CHLORIDE 99 98 - 107 mmol/L CARBON DIOXIDE 22 22 - 30 mmol/L ANION GAP 23 (H) 3 - 13 mmol/L UREA NITROGEN 19 9 - 20 mg/dL CREATININE 1.07 0.66 - 1.25 mg/dL GLUCOSE 176 (H) 70 - 100 mg/dL CALCIUM 11.0 (H) 8.4 - 10.4 mg/dL AST (SGOT) 31 15 - 46 U/L ALT 52 (H) 0 - 49 U/L ALKALINE PHOSPHATASE 117 38 - 126 U/L ALBUMIN 5.3 (H) 3.5 - 5.0 g/dL BILIRUBIN, TOTAL 1.1 0.2 - 1.3 mg/dL TOTAL PROTEIN 9.5 (H) 6.3 - 8.2 g/dL eGFR >90.0 >60.0 mL/min/1.73m*2 Lipase Result Value Ref Range LIPASE 43 23 - 300 U/L Lactic acid with reflex Result Value Ref Range LACTIC ACID 2.6 (H) 0.7 - 2.0 mmol/L CBC Result Value Ref Range Auto WBC 10.9 (H) 3.6 - 10.7 10*3/uL RBC 6.30 (H) 4.40 - 5.90 10*6/uL Hemoglobin 19.5 (H) 13.0 - 18.0 g/dL Hematocrit 52.8 (H) 40.0 - 52.0 % MCV 83.8 77.0 - 99.0 fL MCH 31.0 26.0 - 34.0 pg MCHC 36.9 (H) 30.5 - 36.0 % RDW 11.8 11.5 - 15.0 % Platelets 287 140 - 440 10*3/uL MPV 8.8 (L) 9.0 - 12.7 fL Lactic acid with reflex Result Value Ref Range LACTIC ACID 2.0 0.7 - 2.0 mmol/L Basic metabolic panel Result Value Ref Range SODIUM 143 135 - 145 mmol/L POTASSIUM 3.4 (L) 3.5 - 5.1 mmol/L CHLORIDE 101 98 - 107 mmol/L CARBON DIOXIDE 25 22 - 30 mmol/L UREA NITROGEN 19 9 - 20 mg/dL CREATININE 1.20 0.66 - 1.25 mg/dL GLUCOSE 138 (H) 70 - 100 mg/dL CALCIUM 9.2 8.4 - 10.4 mg/dL ANION GAP 17 (H) 3 - 13 mmol/L eGFR 79.4 >60.0 mL/min/1.73m*2 Beta Hydroxybutyrate Result Value Ref Range BETA HYDROXYBUTYRATE 13.90 (H) 0.20 - 2.81 mg/dL Fentanyl, urine Result Value Ref Range FENTANYL SCREEN, URINE Positive Negative Drug screen panel, emergency Result Value Ref Range AMPHETAMINE SCREEN Negative BARBITURATES SCREEN Negative BENZODIAZEPINE SCREEN Negative COCAINE METAB. SCREEN Negative METHADONE SCREEN Negative OPIATES SCREEN Negative OXYCODONE SCREEN Negative PHENCYCLIDINE SCREEN Negative THC SCREEN STAT Lab Result Value Ref Range THC, URINE Positive Complete Urinalysis Result Value Ref Range Color, Urine Yellow Lt. Yellow Clarity, Urine Clear Clear pH, Urine 6.5 5.0 - 8.0 pH Leukocytes, Urine Negative Negative Raina/uL Nitrite, Urine Negative Negative Protein, Urine 50 (A) Negative mg/dL Glucose, Urine Normal Normal (<70) mg/dL Bilirubin, Urine Negative Negative mg/dL Ketones, Urine 100 (A) Negative mg/dL Urobilinogen, Urine Normal Normal (0-1) mg/dL Blood, Urine Negative Negative mg/dL RBC, Urine 0-2 0 - 2 /HPF WBC, Urine 0-2 0 - 5 /HPF Squamous Epithelial, Urine 0-2 3 - 5 /HPF Non-Squamous Epithalial Cells, Urine 0-2 (A) Negative /HPF Bacteria, Urine Few (A) Negative /HPF Mucus, Urine Moderate (A) Negative /LPF SPECIFIC GRAVITY OF URINE (NUMERIC) >1.030 (H) 1.005 - 1.030 Hemoglobin A1c Result Value Ref Range HEMOGLOBIN A1C 5.5 <5.7 % ESTIMATED AVERAGE GLUCOSE 111 mg/dL CBC auto differential Result Value Ref Range Auto WBC 11.2 (H) 3.6 - 10.7 10*3/uL RBC 5.51 4.40 - 5.90 10*6/uL Hemoglobin 17.0 13.0 - 18.0 g/dL Hematocrit 48.5 40.0 - 52.0 % MCV 88.0 77.0 - 99.0 fL MCH 30.9 26.0 - 34.0 pg MCHC 35.1 30.5 - 36.0 % RDW 12.3 11.5 - 15.0 % Platelets 253 140 - 440 10*3/uL MPV 8.8 (L) 9.0 - 12.7 fL nRBC 0.0 0.0 - 2.0 /100 WBCs Neutrophils Relative 77.1 38.0 - 82.0 % Lymphocytes Relative 13.6 (L) 15.0 - 45.0 % Monocytes Relative 8.7 5.0 - 13.0 % Eosinophils Relative 0.0 0.0 - 6.0 % Basophils Relative 0.3 0.0 - 2.0 % Immature Grans % 0.3 0.0 - 2.0 % Neutrophils Absolute 8.7 (H) 1.8 - 7.5 10*3/uL Lymphocytes Absolute 1.5 1.0 - 4.3 10*3/uL Monocytes Absolute 1.0 (H) 0.0 - 0.9 10*3/uL Eosinophils Absolute 0.0 0.0 - 0.5 10*3/uL Basophils Absolute 0.0 0.0 - 0.2 10*3/uL Immature Grans Absolute 0.0 <0.1 10*3/uL Basic metabolic pane (more content not included)...[facility] 10-26-2023 Consult note* Ole Conway MD - 10/26/2023 10:33 AM EDTAssociated Order(s): IP CONSULT TO ADDICTION MEDICINE Images from the original note were not included. Addiction Medicine Patient: Mayito Forbes Admit Date: 10/25/2023 Primary Care Physician: No primary care provider on file. History of Present Illness The patient is a 38-year-old male presenting to [facility] for complaints of vomiting, diarrhea, generalized abdominal pain. Initially the patient stated that he was trying to stop marijuana but denied use of any other illicit drugs at the time of admission. There is a history of opiate dependence with history of opiate overdoses. When I met with the patient he admitted to me that he was also using fentanyl on a regular basis prior to coming in the hospital. There is a positive history loss of control, increased tolerance, continued use despite adverse consequences, inability to abstain successfully on his own. Withdrawal positive for anxiety, sweats, tremors, nausea, chills,, jointand muscle pain. Of note this patient's drug screen was positive for THC and fentanyl. In reference to previous treatment, he states he has been through several rehabs. More recently he states he has been involved in [employer] but obviously has been unable to stay clean. He intends to return to [facility]. Social History Socioeconomic History Marital status: Single Spouse name: Not on file Number of children: Not on file Years of education: Not on file Highest education level: Not on file Occupational History Not on file Tobacco Use Smoking status: Every Day Packs/day: 1 Types: Cigarettes Smokeless tobacco: Not on file Vaping Use Vaping Use: Never used Substance and Sexual Activity Alcohol use: Not Currently Drug use: Yes Types: Methamphetamines Sexual activity: Not on file Other Topics Concern Not on file Social History Narrative Not on file Social Determinants of Health Financial Resource Strain: Low Risk (10/25/2023) Overall Financial Resource Strain (CARDIA) Difficulty of Paying Living Expenses: Not hard at all Food Insecurity: No Food Insecurity (10/25/2023) Hunger Vital Sign Worried About Running Out of Food in the Last Year: Never true Ran Out of Food in the Last Year: Never true Transportation Needs: No Transportation Needs (10/25/2023) PRAPARE - Transportation Lack of Transportation (Medical): No Lack of Transportation (Non-Medical): No Physical Activity: Inactive (10/25/2023) Exercise Vital Sign Days of Exercise per Week: 0 days Minutes of Exercise per Session: 0 min Stress: No Stress Concern Present (10/25/2023) [place] [employer] Occupational [employer] - Occupational Stress Questionnaire Feeling of Stress : Not at all Social Connections: Moderately Isolated (10/25/2023) Social Connection and Isolation Panel [NHANES] Frequency of Communication with Friends and Family: Three times a week Frequency of Social Gatherings with Friends and Family: Three times a week Attends Druze Services: Never Active Member of Clubs or Organizations: No Attends Club or Organization Meetings: Never Marital Status: Living with partner Intimate Partner Violence: Not At Risk (10/25/2023) Humiliation, Afraid, Rape, and Kick questionnaire Fear of Current or Ex-Partner: No Emotionally Abused: No Physically Abused: No Sexually Abused: No Housing Stability: Low Risk (10/25/2023) Housing Stability Vital Sign Unable to Pay for Housing in the Last Year: No Number of Places Lived in the Last Year: 1 Unstable Housing in the Last Year: No History reviewed. No pertinent past medical history. History reviewed. No pertinent surgical history. No family history on file. Labs Recent Results (from the past 48 hour(s)) Comprehensive metabolic panel Collection Time: 10/25/23 9:39 AM Result Value Ref Range SODIUM 143 135 - 145 mmol/L POTASSIUM 3.4 (L) 3.5 - 5.1 mmol/L CHLORIDE 99 98 - 107 mmol/L CARBON DIOXIDE 22 22 - 30 mmol/L ANION GAP 23 (H) 3 - 13 mmol/L UREA NITROGEN 19 9 - 20 mg/dL CREATININE 1.07 0.66 - 1.25 mg/dL GLUCOSE 176 (H) 70 - 100 mg/dL CALCIUM 11.0 (H) 8.4 - 10.4 mg/dL AST (SGOT) 31 15 - 46 U/L ALT 52 (H) 0 - 49 U/L ALKALINE PHOSPHATASE 117 38 - 126 U/L ALBUMIN 5.3 (H) 3.5 - 5.0 g/dL BILIRUBIN, TOTAL 1.1 0.2 - 1.3 mg/dL TOTAL PROTEIN 9.5 (H) 6.3 - 8.2 g/dL eGFR >90.0 >60.0 mL/min/1.73m*2 Lipase Collection Time: 10/25/23 9:39 AM Result Value Ref Range LIPASE 43 23 - 300 U/L Lactic acid with reflex Collection Time: 10/25/23 9:39 AM Result Value Ref Range LACTIC ACID 2.6 (H) 0.7 - 2.0 mmol/L CBC Collection Time: 10/25/23 9:39 AM Result Value Ref Range Auto WBC 10.9 (H) 3.6 - 10.7 10*3/uL RBC 6.30 (H) 4.40 - 5.90 10*6/uL Hemoglobin 19.5 (H) 13.0 - 18.0 g/dL Hematocrit 52.8 (H) 40.0 - 52.0 % MCV 83.8 77.0 - 99.0 fL MCH 31.0 26.0 - 34.0 pg MCHC 36.9 (H) 30.5 - 36.0 % RDW 11.8 11.5 - 15.0 % Platelets 287 140 - 440 10*3/uL MPV 8.8 (L) 9.0 - 12.7 fL Hemoglobin A1c Collection Time: 10/25/23 9:39 AM Result Value Ref Range HEMOGLOBIN A1C 5.5 <5.7 % ESTIMATED AVERAGE GLUCOSE 111 mg/dL Lactic acid with reflex Collection Time: 10/25/23 11:40 AM Result Value Ref Range LACTIC ACID 2.0 0.7 - 2.0 mmol/L Basic metabolic panel Collection Time: 10/25/23 11:40 AM Result Value Ref Range SODIUM 143 135 - 145 mmol/L POTASSIUM 3.4 (L) 3.5 - 5.1 mmol/L CHLORIDE 101 98 - 107 mmol/L CARBON DIOXIDE 25 22 - 30 mmol/L UREA NITROGEN 19 9 - 20 mg/dL CREATININE 1.20 0.66 - 1.25 mg/dL GLUCOSE 138 (H) 70 - 100 mg/dL CALCIUM 9.2 8.4 - 10.4 mg/dL ANION GAP 17 (H) 3 - 13 mmol/L eGFR 79.4 >60.0 mL/min/1.73m*2 Beta Hydroxybutyrate Collection Time: 10/25/23 11:40 AM Result Value Ref Range BETA HYDROXYBUTYRATE 13.90 (H) 0.20 - 2.81 mg/dL ECG 12 lead Collection Time: 10/25/23 1:36 PM Result Value Ref Range Heart Rate 109 bpm QRSD Interval 75 ms QT Interval 0 ms QTC Interval 0 ms P [place] 76 degrees QRS [place] 75 degrees T [place] 74 degrees [place] Interval 115 ms Fentanyl, urine Collection Time: 10/25/23 4:55 PM Result Value Ref Range FENTANYL SCREEN, URINE Positive Negative Drug screen panel, emergency Collection Time: 10/25/23 4:55 PM Result Value Ref Range AMPHETAMINE SCREEN Negative BARBITURATES SCREEN Negative BENZODIAZEPINE SCREEN Negative COCAINE METAB. SCREEN Negative METHADONE SCREEN Negative OPIATES SCREEN Negative OXYCODONE SCREEN Negative PHENCYCLIDINE SCREEN Negative THC SCREEN STAT Lab Collection Time: 10/25/23 4:55 PM Result Value Ref Range THC, URINE Positive Complete Urinalysis Collection Time: 10/25/23 4:55 PM Result Value Ref Range Color, Urine Yellow Lt. Yellow Clarity, Urine Clear Clear pH, Urine 6.5 5.0 - 8.0 pH Leukocytes, Urine Negative Negative Raina/uL Nitrite, Urine Negative Negative Protein, Urine 50 (A) Negative mg/dL Glucose, Urine Normal Normal (<70) mg/dL Bilirubin, Urine Negative Negative mg/dL Ketones, Urine 100 (A) Negative mg/dL Urobilinogen, Urine Normal Normal (0-1) mg/dL Blood, Urine Negative Negative mg/dL RBC, Urine 0-2 0 - 2 /HPF WBC, Urine 0-2 0 - 5 /HPF Squamous Epithelial, Urine 0-2 3 - 5 /HPF Non-Squamous Epithalial Cells, Urine 0-2 (A) Negative /HPF Bacteria, Urine Few (A) Negative /HPF Mucus, Urine Moderate (A) Negative /LPF SPECIFIC GRAVITY OF URINE (NUMERIC) >1.030 (H) 1.005 - 1.030 CBC auto differential Collection Time: 10/26/23 3:55 AM Result Value Ref Range Auto WBC 11.2 (H) 3.6 - 10.7 10*3/uL RBC 5.51 4.40 - 5.90 10*6/uL Hemoglobin 17.0 13.0 - 18.0 g/dL Hematocrit 48.5 40.0 - 52.0 % MCV 88.0 77.0 - 99.0 fL MCH 30.9 26.0 - 34.0 pg MCHC 35.1 30.5 - 36.0 % RDW 12.3 11.5 - 15.0 % Platelets 253 140 - 440 10*3/uL MPV 8.8 (L) 9.0 - 12.7 fL nRBC 0.0 0.0 - 2.0 /100 WBCs Neutrophils Relative 77.1 38.0 - 82.0 % Lymphocytes Relative 13.6 (L) 15.0 - 45.0 % Monocytes Relative 8.7 5.0 - 13.0 % Eosinophils Relative 0.0 0.0 - 6.0 % Basophils Relative 0.3 0.0 - 2.0 % Immature Grans % 0.3 0.0 - 2.0 % Neutrophils Absolute 8.7 (H) 1.8 - 7.5 10*3/uL Lymphocytes Absolute 1.5 1.0 - 4.3 10*3/uL Monocytes Absolute 1.0 (H) 0.0 - 0.9 10*3/uL Eosinophils Absolute 0.0 0.0 - 0.5 10*3/uL Basophils Absolute 0.0 0.0 - 0.2 10*3/uL Immature Grans Absolute 0.0 <0.1 10*3/uL Basic metabolic panel Collection Time: 10/26/23 3:55 AM Result Value Ref Range SODIUM 143 135 - 145 mmol/L POTASSIUM 3.6 3.5 - 5.1 mmol/L CHLORIDE 103 98 - 107 mmol/L CARBON DIOXIDE 28 22 - 30 mmol/L UREA NITROGEN 16 9 - 20 mg/dL CREATININE 1.04 0.66 - 1.25 mg/dL GLUCOSE 124 (H) 70 - 100 mg/dL CALCIUM 9.0 8.4 - 10.4 mg/dL ANION GAP 12 3 - 13 mmol/L eGFR >90.0 >60.0 mL/min/1.73m*2 Medications Home Meds: Prior to Admission medications Medication Sig Start Date End Date Taking? Authorizing Provider promethazine (Phenergan) 25 MG tablet Take 25 mg by mouth every 6 hours as needed for nausea or vomiting. Yes Historical Provider, venlafaxine XR (Effexor XR) 225 MG 24 hr tablet Take 225 mg by mouth daily (with breakfast). Do notcrush, chew, or split. Yes Historical Provider, Inpatient Scheduled Meds: nicotine, 1 patch, TransDERmal, Daily venlafaxine XR, 225 mg, Oral, Daily with breakfast Inpatient PRN Meds: PRN medications: acetaminophen OR acetaminophen, ondansetron ODT OR ondansetron, polyethylene glycol (PEG) 3350, prochlorperazine Exam Vitals: 10/25/23 1356 10/25/23 1457 10/25/23 1918 10/26/23 0801 BP: (!) 155/102 123/77 102/64 110/73 BP Location: Right arm Left arm Patient Position: Lying Lying Pulse: 100 111 105 80 Resp: 16 16 14 16 Temp: 37.7 C (99.9 F) 37.8 C (100 F) 38 C (100.4 F) 36.6 C (97.9 F) TempSrc: Temporal Oral Temporal Temporal SpO2: 95% 96% 91% 97% Weight: Height: Physical Exam Patient bed ridden, flushed, diaphoretic. Extremely anxious, restless, ill at ease. Complaining of chills, joint and muscle pain. Cravings. He is oriented x 4. No auditory, tactile or visual disturbances. Assessment & Plan Pt place on detox regimen for opiate wd as patient stabilizes can discuss other treatment options. At this point he does plan to follow-up with the [facility]. Ole Conway MD Addiction Medicine 10/26/2023 at 10:33 AM --75-- minutes were spent reviewing the patient's records, evaluating the patient, entering orders,coordinating care with the treatment team, and creating a progress note. Narrative portions of the note are written utilizing GAMEVIL software. While every effort is made todictate clearly and proofread, errors in the dictation may still occur. If there are any questions regarding the dictation please do not hesitate to contact the author. [facility] [id number] Consult note* Ole Conway MD - 10/26/2023 10:33 AM EDT Associated Order(s): IP CONSULT TO ADDICTION MEDICINE Images from the original note were not included. Addiction Medicine Patient: Mayito Forbes Admit Date: 10/25/2023 Primary Care Physician: No primary care provider on file. History of Present Illness The patient is a 38-year-old male presenting to [facility] for complaints of vomiting, diarrhea, generalized abdominal pain. Initially the patient stated that he was trying to stop marijuana but denied use of any other illicit drugs at the time of admission. There is a history of opiate dependence with history of opiate overdoses. When I met with the patient he admitted to me that he was also using fentanyl on a regular basis prior to coming in the hospital. There is a positive history loss of control, increased tolerance, continued use despite adverse consequences, inability to abstain successfully on his own. Withdrawal positive for anxiety, sweats, tremors, nausea, chills,, jointand muscle pain. Of note this patient's drug screen was positive for THC and fentanyl. In reference to previous treatment, he states he has been through several rehabs. More recently he states he has been involved in [employer] but obviously has been unable to stay clean. He intends to return to [facility]. Social History Socioeconomic History Marital status: Single Spouse name: Not on file Number of children: Not on file Years of education: Not on file Highest education level: Not on file Occupational History Not on file Tobacco Use Smoking status: Every Day Packs/day: 1 Types: Cigarettes Smokeless tobacco: Not on file Vaping Use Vaping Use: Never used Substance and Sexual Activity Alcohol use: Not Currently Drug use: Yes Types: Methamphetamines Sexual activity: Not on file Other Topics Concern Not on file Social History Narrative Not on file Social Determinants of Health Financial Resource Strain: Low Risk (10/25/2023) Overall Financial Resource Strain (CARDIA) Difficulty of Paying Living Expenses: Not hard at all Food Insecurity: No Food Insecurity (10/25/2023) Hunger Vital Sign Worried About Running Out of Food in the Last Year: Never true Ran Out of Food in the Last Year: Never true Transportation Needs: No Transportation Needs (10/25/2023) PRAPARE - Transportation Lack of Transportation (Medical): No Lack of Transportation (Non-Medical): No Physical Activity: Inactive (10/25/2023) Exercise Vital Sign Days of Exercise per Week: 0 days Minutes of Exercise per Session: 0 min Stress: No Stress Concern Present (10/25/2023) [place] [employer] - Occupational Stress Questionnaire Feeling of Stress : Not at all Social Connections: Moderately Isolated (10/25/2023) Social Connection and Isolation Panel [NHANES] Frequency of Communication with Friends and Family: Three times a week Frequency of Social Gatherings with Friends and Family: Three times a week Attends Druze Services: Never Active Member of Clubs or Organizations: No Attends Club or Organization Meetings: Never Marital Status: Living with partner Intimate Partner Violence: Not At Risk (10/25/2023) Humiliation, Afraid, Rape, and Kick questionnaire Fear of Current or Ex-Partner: No Emotionally Abused: No Physically Abused: No Sexually Abused: No Housing Stability: Low Risk (10/25/2023) Housing Stability Vital Sign Unable to Pay for Housing in the Last Year: No Number of Places Lived in the Last Year: 1 Unstable Housing in the Last Year: No History reviewed. No pertinent past medical history. History reviewed. No pertinent surgical history. No family history on file. Labs Recent Results (from the past 48 hour(s)) Comprehensive metabolic panel Collection Time: 10/25/23 9:39 AM Result Value Ref Range SODIUM 143 135 - 145 mmol/L POTASSIUM 3.4 (L) 3.5 - 5.1 mmol/L CHLORIDE 99 98 - 107 mmol/L CARBON DIOXIDE 22 22 - 30 mmol/L ANION GAP 23 (H) 3 - 13 mmol/L UREA NITROGEN 19 9 - 20 mg/dL CREATININE 1.07 0.66 - 1.25 mg/dL GLUCOSE 176 (H) 70 - 100 mg/dL CALCIUM 11.0 (H) 8.4 - 10.4 mg/dL AST (SGOT) 31 15 - 46 U/L ALT 52 (H) 0 - 49 U/L ALKALINE PHOSPHATASE 117 38 - 126 U/L ALBUMIN 5.3 (H) 3.5 - 5.0 g/dL BILIRUBIN, TOTAL 1.1 0.2 - 1.3 mg/dL TOTAL PROTEIN 9.5 (H) 6.3 - 8.2 g/dL eGFR >90.0 >60.0 mL/min/1.73m*2 Lipase Collection Time: 10/25/23 9:39 AM Result Value Ref Range LIPASE 43 23 - 300 U/L Lactic acid with reflex Collection Time: 10/25/23 9:39 AM Result Value Ref Range LACTIC ACID 2.6 (H) 0.7 - 2.0 mmol/L CBC Collection Time: 10/25/23 9:39 AM Result Value Ref Range Auto WBC 10.9 (H) 3.6 - 10.7 10*3/uL RBC 6.30 (H) 4.40 - 5.90 10*6/uL Hemoglobin 19.5 (H) 13.0 - 18.0 g/dL Hematocrit 52.8 (H) 40.0 - 52.0 % MCV 83.8 77.0 - 99.0 fL MCH 31.0 26.0 - 34.0 pg MCHC 36.9 (H) 30.5 - 36.0 % RDW 11.8 11.5 - 15.0 % Platelets 287 140 - 440 10*3/uL MPV 8.8 (L) 9.0 - 12.7 fL Hemoglobin A1c Collection Time: 10/25/23 9:39 AM Result Value Ref Range HEMOGLOBIN A1C 5.5 <5.7 % ESTIMATED AVERAGE GLUCOSE 111 mg/dL Lactic acid with reflex Collection Time: 10/25/23 11:40 AM Result Value Ref Range LACTIC ACID 2.0 0.7 - 2.0 mmol/L Basic metabolic panel Collection Time: 10/25/23 11:40 AM Result Value Ref Range SODIUM 143 135 - 145 mmol/L POTASSIUM 3.4 (L) 3.5 - 5.1 mmol/L CHLORIDE 101 98 - 107 mmol/L CARBON DIOXIDE 25 22 - 30 mmol/L UREA NITROGEN 19 9 - 20 mg/dL CREATININE 1.20 0.66 - 1.25 mg/dL GLUCOSE 138 (H) 70 - 100 mg/dL CALCIUM 9.2 8.4 - 10.4 mg/dL ANION GAP 17 (H) 3 - 13 mmol/L eGFR 79.4 >60.0 mL/min/1.73m*2 Beta Hydroxybutyrate Collection Time: 10/25/23 11:40 AM Result Value Ref Range BETA HYDROXYBUTYRATE 13.90 (H) 0.20 - 2.81 mg/dL ECG 12 lead Collection Time: 10/25/23 1:36 PM Result Value Ref Range Heart Rate 109 bpm QRSD Interval 75 ms QT Interval 0 ms QTC Interval 0 ms P [place] 76 degrees QRS [place] 75 degrees T Wave [place] 74 degrees [place] Interval 115 ms Fentanyl, urine Collection Time: 10/25/23 4:55 PM Result Value Ref Range FENTANYL SCREEN, URINE Positive Negative Drug screen panel, emergency Collection Time: 10/25/23 4:55 PM Result Value Ref Range AMPHETAMINE SCREEN Negative BARBITURATES SCREEN Negative BENZODIAZEPINE SCREEN Negative COCAINE METAB. SCREEN Negative METHADONE SCREEN Negative OPIATES SCREEN Negative OXYCODONE SCREEN Negative PHENCYCLIDINE SCREEN Negative THC SCREEN STAT Lab Collection Time: 10/25/23 4:55 PM Result Value Ref Range THC, URINE Positive Complete Urinalysis Collection Time: 10/25/23 4:55 PM Result Value Ref Range Color, Urine Yellow Lt. Yellow Clarity, Urine Clear Clear pH, Urine 6.5 5.0 - 8.0 pH Leukocytes, Urine Negative Negative Raina/uL Nitrite, Urine Negative Negative Protein, Urine 50 (A) Negative mg/dL Glucose, Urine Normal Normal (<70) mg/dL Bilirubin, Urine Negative Negative mg/dL Ketones, Urine 100 (A) Negative mg/dL Urobilinogen, Urine Normal Normal (0-1) mg/dL Blood, Urine Negative Negative mg/dL RBC, Urine 0-2 0 - 2 /HPF WBC, Urine 0-2 0 - 5 /HPF Squamous Epithelial, Urine 0-2 3 - 5 /HPF Non-Squamous Epithalial Cells, Urine 0-2 (A) Negative /HPF Bacteria, Urine Few (A) Negative /HPF Mucus, Urine Moderate (A) Negative /LPF SPECIFIC GRAVITY OF URINE (NUMERIC) >1.030 (H) 1.005 - 1.030 CBC auto differential Collection Time: 10/26/23 3:55 AM Result Value Ref Range Auto WBC 11.2 (H) 3.6 - 10.7 10*3/uL RBC 5.51 4.40 - 5.90 10*6/uL Hemoglobin 17.0 13.0 - 18.0 g/dL Hematocrit 48.5 40.0 - 52.0 % MCV 88.0 77.0 - 99.0 fL MCH 30.9 26.0 - 34.0 pg MCHC 35.1 30.5 - 36.0 % RDW 12.3 11.5 - 15.0 % Platelets 253 140 - 440 10*3/uL MPV 8.8 (L) 9.0 - 12.7 fL nRBC 0.0 0.0 - 2.0 /100 WBCs Neutrophils Relative 77.1 38.0 - 82.0 % Lymphocytes Relative 13.6 (L) 15.0 - 45.0 % Monocytes Relative 8.7 5.0 - 13.0 % Eosinophils Relative 0.0 0.0 - 6.0 % Basophils Relative 0.3 0.0 - 2.0 % Immature Grans % 0.3 0.0 - 2.0 % Neutrophils Absolute 8.7 (H) 1.8 - 7.5 10*3/uL Lymphocytes Absolute 1.5 1.0 - 4.3 10*3/uL Monocytes Absolute 1.0 (H) 0.0 - 0.9 10*3/uL Eosinophils Absolute 0.0 0.0 - 0.5 10*3/uL Basophils Absolute 0.0 0.0 - 0.2 10*3/uL Immature Grans Absolute 0.0 <0.1 10*3/uL Basic metabolic panel Collection Time: 10/26/23 3:55 AM Result Value Ref Range SODIUM 143 135 - 145 mmol/L POTASSIUM 3.6 3.5 - 5.1 mmol/L CHLORIDE 103 98 - 107 mmol/L CARBON DIOXIDE 28 22 - 30 mmol/L UREA NITROGEN 16 9 - 20 mg/dL CREATININE 1.04 0.66 - 1.25 mg/dL GLUCOSE 124 (H) 70 - 100 mg/dL CALCIUM 9.0 8.4 - 10.4 mg/dL ANION GAP 12 3 - 13 mmol/L eGFR >90.0 >60.0 mL/min/1.73m*2 Medications Home Meds: Prior to Admission medications Medication Sig Start Date End Date Taking? Authorizing Provider promethazine (Phenergan) 25 MG tablet Take 25 mg by mouth every 6 hours as needed for nausea or vomiting. Yes Historical Provider, venlafaxine XR (Effexor XR) 225 MG 24 hr tablet Take 225 mg by mouth daily (with breakfast). Do notcrush, chew, or split. Yes Historical Provider, Inpatient Scheduled Meds: nicotine, 1 patch, TransDERmal, Daily venlafaxine XR, 225 mg, Oral, Daily with breakfast Inpatient PRN Meds: PRN medications: acetaminophen OR acetaminophen, ondansetron ODT OR ondansetron, polyethylene glycol (PEG) 3350, prochlorperazine Exam Vitals: 10/25/23 1356 10/25/23 1457 10/25/23 1918 10/26/23 0801 BP: (!) 155/102 123/77 102/64 110/73 BP Location: Right arm Left arm Patient Position: Lying Lying Pulse: 100 111 105 80 Resp: 16 16 14 16 Temp: 37.7 C (99.9 F) 37.8 C (100 F) 38 C (100.4 F) 36.6 C (97.9 F) TempSrc: Temporal Oral Temporal Temporal SpO2: 95% 96% 91% 97% Weight: Height: Physical Exam Patient bed ridden, flushed, diaphoretic. Extremely anxious, restless, ill at ease. Complaining of chills, joint and muscle pain. Cravings. He is oriented x 4. No auditory, tactile or visual disturbances. Assessment & Plan Pt place on detox regimen for opiate wd as patient stabilizes can discuss other treatment options. At this point he does plan to follow-up with the [facility]. Ole Conway MD Addiction Medicine 10/26/2023 at 10:33 AM --75-- minutes were spent reviewing the patient's records, evaluating the patient, entering orders,coordinating care with the treatment team, and creating a progress note. Narrative portions of the note are written utilizing GAMEVIL software. While every effort is made todictate clearly and proofread, errors in the dictation may still occur. If there are any questions regarding the dictation please do not hesitate to contact the author. documented in this [facility]05-28-2024 History and physical note* Berna Rodríguez, ENTREPRENEURSHIP PROGRAM DIRECTOR - MONOTYPE MECHANIC - 10/25/2023 1:53 PM EDT CDU History and Physical Admit Date: 10/25/2023 PCP: No primary care provider on file. CHIEF COMPLAINT: nausea, vomiting Limitations to history: None Outside historians: None HISTORY OF PRESENT ILLNESS: Mayito is a 38 y.o. male with past medical history below who presents with nausea and vomiting forthe last two days. Patient also had some diarrhea yesterday. Patient states he has been unable to keep anything down since Tuesday due to continuous nausea and vomiting. He admitted to daily use of m arijuana with the last time being last Tuesday or Tuesday. Reports diffuse abdominal pain, chills yesterday and subjective fever on Tuesday. Patient also reports decreased fluid intake overall. Patient reported to the ED for evaluation and admitted to the CDU for observation. Patient was seen and evaluated at bedside. States he feels rough. Denies any excessive alcohol use and continues to smoke tobacco daily. Denies any diarrhea today. REVIEW OF SYSTEMS A focused review of systems was performed and is negative except as stated in above HPI. Past Medical & Social History History reviewed. No pertinent past medical history. History reviewed. No pertinent surgical history. No family history on file. Social History Socioeconomic History Marital status: Single Spouse name: Not on file Number of children: Not on file Years of education: Not on file Highest education level: Not on file Occupational History Not on file Tobacco Use Smoking status: Every Day Packs/day: 1 Types: Cigarettes Smokeless tobacco: Not on file Vaping Use Vaping Use: Never used Substance and Sexual Activity Alcohol use: Not Currently Drug use: Yes Types: Methamphetamines Sexual activity: Not on file Other Topics Concern Not on file Social History Narrative Not on file Social Determinants of Health Financial Resource Strain: Not on file Food Insecurity: Not on file Transportation Needs: Not on file Physical Activity: Not on file Stress: Not on file Social Connections: Not on file Intimate Partner Violence: Not on file Housing Stability: Not on file Current Facility-Administered Medications Medication Dose Route Frequency Provider Last Rate Last Admin acetaminophen (Tylenol) tablet 650 mg 650 mg Oral q6h PRN [place] Scherer CNP Or acetaminophen (Tylenol) suppository 650 mg 650 mg Rectal q6h PRN Berna Rodríguez APRN - NOE haloperidol lactate (Haldol) injection 2 mg 2 mg IntraVENous Once [place] Melgoza CNP ondansetron ODT (Zofran-ODT) disintegrating tablet 4 mg 4 mg Oral q8h PRN [place] Scherer CNP Or ondansetron (Zofran) injection 4 mg 4 mg IntraVENous q6h PRN [place] Scherer CNP polyethylene glycol (PEG) 3350 (Miralax) packet 17 g 17 g Oral Daily PRN [place] Scherer CNP prochlorperazine (Compazine) injection 10 mg 10 mg IntraVENous q6h PRN [place] Scherer CNP sodium chloride 0.9 % infusion 100 mL/hr IntraVENous Continuous [place] Scherer CNP Current Outpatient Medications Medication Sig Dispense Refill venlafaxine XR (Effexor XR) 225 MG 24 hr tablet Take 225 mg by mouth daily (with breakfast). Do notcrush, chew, or split. No Known Allergies PHYSICAL EXAM VITAL SIGNS: BP (!) 137/97 Pulse 109 Temp 37.2 C (99 F) (Temporal) Resp 22 SpO2 (!) 91% Pulse Ox: SpO2 Av.2 % Min: 91 % Max: 99 % Supplemental O2: Physical Exam General: Vitals noted. NAD, nontoxic, afebrile. HEENT: Normocephalic, atraumatic, sclerae clear, moist mucous membranes, neck supple Cardiac: Regular rate and rhythm, no murmurs Lungs: Clear to auscultation bilaterally, no wheezing Abdomen: Soft, nontender, normoactive bowel sounds, no rebound or guarding, no rigidity Extremities: No edema, Skin: Warm and dry Neuro: Alert and oriented 3, PERRLA, EOMs intact Psych: Cooperative, normal mood and affect LABS: Labs Reviewed COMPREHENSIVE METABOLIC PANEL - Abnormal Result Value SODIUM 143 POTASSIUM 3.4 (*) CHLORIDE 99 CARBON DIOXIDE 22 ANION GAP 23 (*) UREA NITROGEN 19 CREATININE 1.07 GLUCOSE 176 (*) CALCIUM 11.0 (*) AST (SGOT) 31 ALT 52 (*) ALKALINE PHOSPHATASE 117 ALBUMIN 5.3 (*) BILIRUBIN, TOTAL 1.1 TOTAL PROTEIN 9.5 (*) eGFR >90.0 LACTIC ACID WITH REFLEX - Abnormal LACTIC ACID 2.6 (*) CBC (HEMOGRAM) - Abnormal Auto WBC 10.9 (*) RBC 6.30 (*) Hemoglobin 19.5 (*) Hematocrit 52.8 (*) MCV 83.8 MCH 31.0 MCHC 36.9 (*) RDW 11.8 Platelets 287 MPV 8.8 (*) BASIC METABOLIC PANEL - Abnormal SODIUM 143 POTASSIUM 3.4 (*) CHLORIDE 101 CARBON DIOXIDE 25 UREA NITROGEN 19 CREATININE 1.20 GLUCOSE 138 (*) CALCIUM 9.2 ANION GAP 17 (*) eGFR 79.4 BETA HYDROXYBUTYRATE - Abnormal BETA HYDROXYBUTYRATE 13.90 (*) LIPASE - Normal LIPASE 43 LACTIC ACID WITH REFLEX - Normal LACTIC ACID 2.0 FENTANYL, URINE DRUGS OF ABUSE THC SCREEN STAT LAB COMPLETE URINALYSIS WITH REFLEX TO CULTURE Narrative: The following orders were created for panel order Complete Urinalysis with reflex to Culture. Procedure Abnormality Status --------- ------ Complete Urinalysis[[id number]] Please view results for these tests on the individual orders. COMPLETE URINALYSIS RADIOLOGY: CT abdomen pelvis w contrast Final Result No acute process. Report Dictated on Electronically Signed By: Alonzo Kimbrough MD Electronically Signed Date/Time: 10/25/2023 11:27 AM EDT Medical decision making: The patient is placed in the CDU for further evaluation after initial ED workup, discussed their case with ED provider Ángela Torres NP and agree with plan for observation. Independent review of ED workup: Laboratory work up showed K+ 3.4, Anion gap 23, Lactic acid 2.6. WBC 10.9, Beta Hydroxybutyrate 13.90. CT A/P-->no acute process. Received diphenhydramine IV 25 mgx 1 dose, LR 1000 mL IV x 1 dose, NS 1000 mL IV x 1 dose, Reglan IV 10 mg x 1 dose, Haldol injection 2 mg x 2 doses in the ED. External records reviewed: Admitted to [facility] CDU on 06/07/23 for same symptoms. Also admitted to [facility] observation unit on 09/27/23 for nausea, vomiting. Social determinants of care: no PCP EKG Interpretation: Please see [facility] or ED attending documentation for official EKG interpretation. Clinical Impression: ASSESSMENT and PLAN: 1. Nausea, vomiting 2/2 to cannabinoid hyperemesis -continue antiemetics, Zofran, add Compazine -clear liquid diet and advance as tolerated -continue NS at 100 ml/h -consult Addiction Medicine 2. Elevated anion gap -level 23 originally, improved with fluid bolus to 17 -elevated beta hydroxybutyrate, normal hemoglobin A1C 3. Lactic acidosis -level 2.6, improved to 2.0 with fluid bolus 4. Marijuana use -has attempted to quit and is willing -agreed to Addiction Medicine consult 5. Depression -continue Effexor 6. Tobacco use -encourage smoking cessation -initiate NRT Due to the review of above complex data and the acute illness and/or undiagnosed new problem which may pose significant morbidity, The complexity of this case is: Nichole Rodríguez, ENTREPRENEURSHIP PROGRAM DIRECTOR - MONOTYPE MECHANIC CDU Advanced Practice Provider [facility] (Comment: Please note this report has been produced using speech recognition software and may contain errors related to that system including errors in grammar, punctuation, and spelling, as well as words and phrases that may be inappropriate. If there are any questions or concerns please feel freeto contact the dictating provider for clarification.) [id number] NoteCDU History and Physical Admit Date: 10/25/2023 PCP: No primary care provider on file. CHIEF COMPLAINT: nausea, vomiting Limitations to history: None Outside historians: None HISTORY OF PRESENT ILLNESS: Mayito is a 38 y.o. male with past medical history below who presents with nausea and vomiting for the last two days. Patient also had some diarrhea yesterday. Patient states he has been unable to keep anything down since Tuesday due to continuous nausea and vomiting. He admitted to daily use of marijuana with the last time being last Tuesday or Tuesday. Reports diffuse abdominal pain, chills yesterday and subjective fever on Tuesday. Patient also reports decreased fluid intake overall. Patient reported to the ED for evaluation and admitted to the CDU for observation. Patient was seen and evaluated at bedside. States he feels rough. Denies any excessive alcohol use and continues to smoke tobacco daily. Denies any diarrhea today. REVIEW OF SYSTEMS A focused review of systems was performed and is negative except as stated in above HPI. Past Medical & Social History History reviewed. No pertinent past medical history. History reviewed. No pertinent surgical history. No family history on file. Social History Socioeconomic History Marital status: Single Spouse name: Not on file Number of children: Not on file Years of education: Not on file Highest education level: Not on file Occupational History Not on file Tobacco Use Smoking status: Every Day Packs/day: 1 Types: Cigarettes Smokeless tobacco: Not on file Vaping Use Vaping Use: Never used Substance and Sexual Activity Alcohol use: Not Currently Drug use: Yes Types: Methamphetamines Sexual activity: Not on file Other Topics Concern Not on file Social History Narrative Not on file Social Determinants of Health Financial Resource Strain: Not on file Food Insecurity: Not on file Transportation Needs: Not on file Physical Activity: Not on file Stress: Not on file Social Connections: Not on file Intimate Partner Violence: Not on file Housing Stability: Not on file Current Facility-Administered Medications Medication Dose Route Frequency Provider Last Rate Last Admin acetaminophen (Tylenol) tablet 650 mg 650 mg Oral q6h PRN FLORIDA Scherer CNP Or acetaminophen (Tylenol) suppository 650 mg 650 mg Rectal q6h PRN Berna Rodríguez APRN - NOE haloperidol lactate (Haldol) injection 2 mg 2 mg IntraVENous Once FLORIDA Melgoza CNP ondansetron ODT (Zofran-ODT) disintegrating tablet 4 mg 4 mg Oral q8h PRN [place] Scherer CNP Or ondansetron (Zofran) injection 4 mg 4 mg IntraVENous q6h PRN Berna Rodríguez APRN - NOE polyethylene glycol (PEG) 3350 (Miralax) packet 17 g 17 g Oral Daily PRN Berna Rodríguez APRN - NOE prochlorperazine (Compazine) injection 10 mg 10 mg IntraVENous q6h PRN FL[place] Scherer CNP sodium chloride 0.9 % infusion 100 mL/hr IntraVENous Continuous [place] Scherer CNP Current Outpatient Medications Medication Sig Dispense Refill venlafaxine XR (Effexor XR) 225 MG 24 hr tablet Take 225 mg by mouth daily (with breakfast). Do not crush, chew, or split. No Known Allergies PHYSICAL EXAM VITAL SIGNS: BP (!) 137/97 Pulse 109 Temp 37.2 ?C (99 ?F) (Temporal) Resp 22 SpO2 (!) 91% Pulse Ox: SpO2 Av.2 % Min: 91 % Max: 99 % Supplemental O2: Physical Exam General: Vitals noted. NAD, nontoxic, afebrile. HEENT: Normocephalic, atraumatic, sclerae clear, moist mucous membranes, neck supple Cardiac: Regular rate and rhythm, no murmurs Lungs: Clear to auscultation bilaterally, no wheezing Abdomen: Soft, nontender, normoactive bowel sounds, no rebound or guarding, no rigidity Extremities: No edema, Skin: Warm and dry Neuro: Alert and oriented ?3, PERRLA, EOMs intact Psych: Cooperative, normal mood and affect LABS: Labs Reviewed COMPREHENSIVE METABOLIC PANEL - Abnormal Result Value SODIUM 143 POTASSIUM 3.4 (*) CHLORIDE 99 CARBON DIOXIDE 22 ANION GAP 23 (*) UREA NITROGEN 19 CREATININE 1.07 GLUCOSE 176 (*) CALCIUM 11.0 (*) AST (SGOT) 31 ALT 52 (*) ALKALINE PHOSPHATASE 117 ALBUMIN 5.3 (*) BILIRUBIN, TOTAL 1.1 TOTAL PROTEIN 9.5 (*) eGFR >90.0 LACTIC ACID WITH REFLEX - Abnormal LACTIC ACID 2.6 (*) CBC (HEMOGRAM) - Abnormal Auto WBC 10.9 (*) RBC 6.30 (*) Hemoglobin 19.5 (*) Hematocrit 52.8 (*) MCV 83.8 MCH 31.0 MCHC 36.9 (*) RDW 11.8 Platelets 287 MPV 8.8 (*) BASIC METABOLIC PANEL - Abnormal SODIUM 143 POTASSIUM 3.4 (*) CHLORIDE 101 CARBON DIOXIDE 25 UREA NITROGEN 19 CREATININE 1.20 GLUCOSE 138 (*) CALCIUM 9.2 ANION GAP 17 (*) eGFR 79.4 BETA HYDROXYBUTYRATE - Abnormal BETA HYDROXYBUTYRATE 13.90 (*) LIPASE - Normal LIPASE 43 LACTIC ACID WITH REFLEX - Normal LACTIC ACID 2.0 FENTANYL, URINE DRUGS OF ABUSE THC SCREEN STAT LAB COMPL (more content not included)...[facility]05-28-2024 History and physical note* Berna Rodríguez, ENTREPRENEURSHIP PROGRAM DIRECTOR - MONOTYPE MECHANIC - 10/25/2023 1:53 PM EDT CDU History and Physical Admit Date: 10/25/2023 PCP: No primary care provider on file. CHIEF COMPLAINT: nausea, vomiting Limitations to history: None Outside historians: None HISTORY OF PRESENT ILLNESS: Mayito is a 38 y.o. male with past medical history below who presents with nausea and vomiting forthe last two days. Patient also had some diarrhea yesterday. Patient states he has been unable to keep anything down since Tuesday due to continuous nausea and vomiting. He admitted to daily use of m arijuana with the last time being last Tuesday or Tuesday. Reports diffuse abdominal pain, chills yesterday and subjective fever on Tuesday. Patient also reports decreased fluid intake overall. Patient reported to the ED for evaluation and admitted to the CDU for observation. Patient was seen and evaluated at bedside. States he feels rough. Denies any excessive alcohol use and continues to smoke tobacco daily. Denies any diarrhea today. REVIEW OF SYSTEMS A focused review of systems was performed and is negative except as stated in above HPI. Past Medical & Social History History reviewed. No pertinent past medical history. History reviewed. No pertinent surgical history. No family history on file. Social History Socioeconomic History Marital status: Single Spouse name: Not on file Number of children: Not on file Years of education: Not on file Highest education level: Not on file Occupational History Not on file Tobacco Use Smoking status: Every Day Packs/day: 1 Types: Cigarettes Smokeless tobacco: Not on file Vaping Use Vaping Use: Never used Substance and Sexual Activity Alcohol use: Not Currently Drug use: Yes Types: Methamphetamines Sexual activity: Not on file Other Topics Concern Not on file Social History Narrative Not on file Social Determinants of Health Financial Resource Strain: Not on file Food Insecurity: Not on file Transportation Needs: Not on file Physical Activity: Not on file Stress: Not on file Social Connections: Not on file Intimate Partner Violence: Not on file Housing Stability: Not on file Current Facility-Administered Medications Medication Dose Route Frequency Provider Last Rate Last Admin acetaminophen (Tylenol) tablet 650 mg 650 mg Oral q6h PRN Berna NegronsFLORIDA CNP Or acetaminophen (Tylenol) suppository 650 mg 650 mg Rectal q6h PRN Berna Negrons, ENTRE[employer]ENEURSHIP PROGRAM DIRECTOR - NOE haloperidol lactate (Haldol) injection 2 mg 2 mg IntraVENous Once Ángela FLOR[place] Torres CNP ondansetron ODT (Zofran-ODT) disintegrating tablet 4 mg 4 mg Oral q8h PRN Berna NegronsFLORIDA - NOE Or ondansetron (Zofran) injection 4 mg 4 mg IntraVENous q6h PRN Berna Negrons, E[employer]SHIP PROGRAM DIRECTOR - NOE polyethylene glycol (PEG) 3350 (Miralax) packet 17 g 17 g Oral Daily PRN Berna Negrons, [place] - NOE prochlorperazine (Compazine) injection 10 mg 10 mg IntraVENous q6h PRN Berna Negrons, [place] - NOE sodium chloride 0.9 % infusion 100 mL/hr IntraVENous Continuous [place] Scherer CNP Current Outpatient Medications Medication Sig Dispense Refill venlafaxine XR (Effexor XR) 225 MG 24 hr tablet Take 225 mg by mouth daily (with breakfast). Do notcrush, chew, or split. No Known Allergies PHYSICAL EXAM VITAL SIGNS: BP (!) 137/97 Pulse 109 Temp 37.2 C (99 F) (Temporal) Resp 22 SpO2 (!) 91% Pulse Ox: SpO2 Av.2 % Min: 91 % Max: 99 % Supplemental O2: Physical Exam General: Vitals noted. NAD, nontoxic, afebrile. HEENT: Normocephalic, atraumatic, sclerae clear, moist mucous membranes, neck supple Cardiac: Regular rate and rhythm, no murmurs Lungs: Clear to auscultation bilaterally, no wheezing Abdomen: Soft, nontender, normoactive bowel sounds, no rebound or guarding, no rigidity Extremities: No edema, Skin: Warm and dry Neuro: Alert and oriented 3, PERRLA, EOMs intact Psych: Cooperative, normal mood and affect LABS: Labs Reviewed COMPREHENSIVE METABOLIC PANEL - Abnormal Result Value SODIUM 143 POTASSIUM 3.4 (*) CHLORIDE 99 CARBON DIOXIDE 22 ANION GAP 23 (*) UREA NITROGEN 19 CREATININE 1.07 GLUCOSE 176 (*) CALCIUM 11.0 (*) AST (SGOT) 31 ALT 52 (*) ALKALINE PHOSPHATASE 117 ALBUMIN 5.3 (*) BILIRUBIN, TOTAL 1.1 TOTAL PROTEIN 9.5 (*) eGFR >90.0 LACTIC ACID WITH REFLEX - Abnormal LACTIC ACID 2.6 (*) CBC (HEMOGRAM) - Abnormal Auto WBC 10.9 (*) RBC 6.30 (*) Hemoglobin 19.5 (*) Hematocrit 52.8 (*) MCV 83.8 MCH 31.0 MCHC 36.9 (*) RDW 11.8 Platelets 287 MPV 8.8 (*) BASIC METABOLIC PANEL - Abnormal SODIUM 143 POTASSIUM 3.4 (*) CHLORIDE 101 CARBON DIOXIDE 25 UREA NITROGEN 19 CREATININE 1.20 GLUCOSE 138 (*) CALCIUM 9.2 ANION GAP 17 (*) eGFR 79.4 BETA HYDROXYBUTYRATE - Abnormal BETA HYDROXYBUTYRATE 13.90 (*) LIPASE - Normal LIPASE 43 LACTIC ACID WITH REFLEX - Normal LACTIC ACID 2.0 FENTANYL, URINE DRUGS OF ABUSE THC SCREEN STAT LAB COMPLETE URINALYSIS WITH REFLEX TO CULTURE Narrative: The following orders were created for panel order Complete Urinalysis with reflex to Culture. Procedure Abnormality Status --------- ------ Complete Urinalysis[[id number]] Please view results for these tests on the individual orders. COMPLETE URINALYSIS RADIOLOGY: CT abdomen pelvis w contrast Final Result No acute process. Report Dictated on Electronically Signed By: Alonzo Kimbrough MD Electronically Signed Date/Time: 10/25/2023 11:27 AM EDT Medical decision making: The patient is placed in the CDU for further evaluation after initial ED workup, discussed their case with ED provider Ángela Torres NP and agree with plan for observation. Independent review of ED workup: Laboratory work up showed K+ 3.4, Anion gap 23, Lactic acid 2.6. WBC 10.9, Beta Hydroxybutyrate 13.90. CT A/P-->no acute process. Received diphenhydramine IV 25 mgx 1 dose, LR 1000 mL IV x 1 dose, NS 1000 mL IV x 1 dose, Reglan IV 10 mg x 1 dose, Haldol injection 2 mg x 2 doses in the ED. External records reviewed: Admitted to [facility] CDU on 06/07/23 for same symptoms. Also admitted to [facility] observation unit on 09/27/23 for nausea, vomiting. Social determinants of care: no PCP EKG Interpretation: Please see [facility] or ED attending documentation for official EKG interpretation. Clinical Impression: ASSESSMENT and PLAN: 1. Nausea, vomiting 2/2 to cannabinoid hyperemesis -continue antiemetics, Zofran, add Compazine -clear liquid diet and advance as tolerated -continue NS at 100 ml/h -consult Addiction Medicine 2. Elevated anion gap -level 23 originally, improved with fluid bolus to 17 -elevated beta hydroxybutyrate, normal hemoglobin A1C 3. Lactic acidosis -level 2.6, improved to 2.0 with fluid bolus 4. Marijuana use -has attempted to quit and is willing -agreed to Addiction Medicine consult 5. Depression -continue Effexor 6. Tobacco use -encourage smoking cessation -initiate NRT Due to the review of above complex data and the acute illness and/or undiagnosed new problem which may pose significant morbidity, The complexity of this case is: FLORIDA Abreu CNP CDU Advanced Practice Provider [facility] (Comment: Please note this report has been produced using speech recognition software and may contain errors related to that system including errors in grammar, punctuation, and spelling, as well as words and phrases that may be inappropriate. If there are any questions or concerns please feel freeto contact the dictating provider for clarification.) documented in this [facility]05-28-2024 Emergency department Note* FLORIDA Melgoza CNP - 10/25/2023 8:45 AM EDT EMERGENCY DEPARTMENT ENCOUNTER Pt Name: Mayito Forbes Birthdate 1985 Date of evaluation: 10/25/2023 ED Provider: FLOR[place] Melgoza CNP This patient was seen in conjunction with Dr. Neil CHIEF COMPLAINT Chief Complaint Patient presents with Vomiting N/V/D x2 days HISTORY OF PRESENT ILLNESS (Location/Symptom, Timing/Onset, Context/Setting, Quality, Duration, Modifying Factors, Severity) Note limiting factors. I wore appropriate PPE for the entirety of this encounter. HPI Mayito Forbes is a 38 y.o. who presents to the emergency department with chief complaint of nauseavomiting and diarrhea for the last 2 days complaining of generalized abdominal pain. He states he has not been able to keep down anything since Tuesday evening. Denies similar sick contacts. He has been seen for this several times also seen in 2022 for an opiate overdose he denies that these could be withdrawal symptoms he states he does smoke marijuana but he needs to stop smoking marijuana because he is on parole, he states I warned them this would happen if I stopped. Nursing Notes were reviewed. Limitations to history: None Outside historians: None REVIEW OF SYSTEMS Review of Systems Constitutional: Negative for activity change, appetite change, chills and fever. HENT: Negative for congestion, nosebleeds, postnasal drip, sore throat and trouble swallowing. Eyes: Negative for pain and visual disturbance. Respiratory: Negative for cough and shortness of breath. Cardiovascular: Negative for chest pain. Gastrointestinal: Positive for abdominal pain, diarrhea, nausea and vomiting. Negative for abdominal distention, anal bleeding, blood in stool, constipation and rectal pain. Genitourinary: Negative for dysuria, flank pain, hematuria, penile discharge, scrotal swelling and testicular pain. Musculoskeletal: Negative for arthralgias, back pain and myalgias. Skin: Negative for rash and wound. Neurological: Negative for dizziness, syncope, weakness and light-headedness. Psychiatric/Behavioral: Negative for agitation and confusion. All other systems reviewed and are negative. Pertinent positives and negatives as per HPI. PAST MEDICAL HISTORY History reviewed. No pertinent past medical history. SURGICAL HISTORY History reviewed. No pertinent surgical history. CURRENT MEDICATIONS Previous Medications VENLAFAXINE XR (EFFEXOR XR) 225 MG 24 HR TABLET Take 225 mg by mouth daily (with breakfast). Do notcrush, chew, or split. ALLERGIES Patient has no known allergies. FAMILY HISTORY No family history on file. SOCIAL HISTORY Social History Socioeconomic History Marital status: Single Tobacco Use Smoking status: Every Day Packs/day: 1 Types: Cigarettes Vaping Use Vaping Use: Never used Substance and Sexual Activity Alcohol use: Not Currently Drug use: Yes Types: Methamphetamines SCREENINGS [place] Coma Scale Best Eye Response: Spontaneous Best Verbal Response: Oriented Best Motor Response: Follows commands Jolanta Coma Scale Score: 15 PHYSICAL EXAM ED Triage Vitals [10/25/23 0846] Temp Heart Rate Resp BP 37.2 C (99 F) (!) 121 (!) 30 (!) 143/103 SpO2 Temp Source Heart Rate Source Patient Position 99 % Temporal Monitor -- BP Location FiO2 (%) -- -- Physical Exam Vitals and nursing note reviewed. Constitutional: General: He is not in acute distress. Appearance: Normal appearance. He is normal weight. He is not ill-appearing or toxic-appearing. HENT: Head: Normocephalic and atraumatic. Right Ear: External ear normal. Left Ear: External ear normal. Mouth/Throat: Mouth: Mucous membranes are moist. Pharynx: Oropharynx is clear. Eyes: Extraocular Movements: Extraocular movements intact. Conjunctiva/sclera: Conjunctivae normal. Pupils: Pupils are equal, round, and reactive to light. Cardiovascular: Comments: Tachycardic rate, regular rhythm, normal S1-S2, no murmurs noted. Radial pulses 2+ and symmetric. Abdominal: Comments: The abdomen is soft, nondistended and nontender. There is no rebound tenderness or guarding. Bowel sounds are normal. Musculoskeletal: General: No swelling, tenderness, deformity or signs of injury. Normal range of motion. Cervical back: Normal range of motion and neck supple. No rigidity or tenderness. Lymphadenopathy: Cervical: No cervical adenopathy. Skin: General: Skin is warm and dry. Capillary Refill: Capillary refill takes less than 2 seconds. Coloration: Skin is not jaundiced or pale. Findings: No bruising or erythema. Neurological: General: No focal deficit present. Mental Status: He is alert and oriented to person, place, and time. Mental status is at baseline. Cranial Nerves: No cranial nerve deficit. Sensory: No sensory deficit. Motor: No weakness. Coordination: Coordination normal. Psychiatric: Mood and Affect: Mood normal. DIAGNOSTIC RESULTS Procedures/EKG: EKG was reviewed by myself. Physician EKG interpretation can be found in [facility] RADIOLOGY (Per Emergency Physician): Interpretation per the Radiologist below, if available at the time of this note: CT abdomen pelvis w contrast Final Result No acute process. Report Dictated on Electronically Signed By: Alonzo Kimbrough MD Electronically Signed Date/Time: 10/25/2023 11:27 AM EDT ED BEDSIDE ULTRASOUND: Performed by ED Physician - none LABS: Labs Reviewed COMPREHENSIVE METABOLIC PANEL - Abnormal Result Value SODIUM 143 POTASSIUM 3.4 (*) CHLORIDE 99 CARBON DIOXIDE 22 ANION GAP 23 (*) UREA NITROGEN 19 CREATININE 1.07 GLUCOSE 176 (*) CALCIUM 11.0 (*) AST (SGOT) 31 ALT 52 (*) ALKALINE PHOSPHATASE 117 ALBUMIN 5.3 (*) BILIRUBIN, TOTAL 1.1 TOTAL PROTEIN 9.5 (*) eGFR >90.0 LACTIC ACID WITH REFLEX - Abnormal LACTIC ACID 2.6 (*) CBC (HEMOGRAM) - Abnormal Auto WBC 10.9 (*) RBC 6.30 (*) Hemoglobin 19.5 (*) Hematocrit 52.8 (*) MCV 83.8 MCH 31.0 MCHC 36.9 (*) RDW 11.8 Platelets 287 MPV 8.8 (*) BASIC METABOLIC PANEL - Abnormal SODIUM 143 POTASSIUM 3.4 (*) CHLORIDE 101 CARBON DIOXIDE 25 UREA NITROGEN 19 CREATININE 1.20 GLUCOSE 138 (*) CALCIUM 9.2 ANION GAP 17 (*) eGFR 79.4 LIPASE - Normal LIPASE 43 LACTIC ACID WITH REFLEX - Normal LACTIC ACID 2.0 BETA HYDROXYBUTYRATE All other labs were within normal range or not returned as of this dictation. EMERGENCY DEPARTMENT COURSE and DIFFERENTIAL DIAGNOSIS/MDM: Vitals: Vitals: 10/25/23 0846 10/25/23 1135 10/25/23 1145 10/25/23 1230 BP: (!) 143/103 (!) 148/98 (!) 154/100 (!) 149/100 Pulse: (!) 121 (!) 111 101 94 Resp: (!) 30 22 Temp: 37.2 C (99 F) TempSrc: Temporal SpO2: 99% 99% 99% 98% Diagnoses as of 10/27/23 1118 Dehydration Nausea vomiting and diarrhea Cyclic vomiting syndrome Opioid use disorder The patient presented with chief complaint of with chief complaint of nausea vomiting and diarrhea for the last 2 days complaining of generalized abdominal pain. He states he has not been able to keep down anything since Tuesday evening. Denies similar sick contacts. He has been seen for this several times also seen in 2022 for an opiate overdose he denies that these could be withdrawal symptoms he states he does smoke marijuana but he needs to stop smoking marijuana because he is on parole, he states I warned them this would happen if I stopped.. The differential diagnosis associated with this patient's presentation includes gastroenteritis, withdrawal, cyclic vomiting, pancreatitis, cholecystitis, cholelithiasis, ileus. Our workup consisted of ordering/reviewing: CBC, CMP, lipase, lactic acid, Reglan, Benadryl, IV fluids. Diagnostic tests considered but not performed: none To aid in management, I performed an independent interpretation of none. I also reviewed external records from hospitalizations where the patient was positive for THC. I discussed their care with Admitting team CDU MARYELLEN. Consideration for escalation of care with: Admission/observation hydration and symptom control. The patient will be Admitted. Patient is in agreement with this plan. Medications sodium chloride 0.9 % infusion (125 mL/hr IntraVENous New Bag 10/25/23 1311) haloperidol lactate (Haldol) injection 2 mg (has no administration in time range) sodium chloride 0.9 % bolus 1,000 mL (0 mL IntraVENous Stopped 10/25/23 1039) metoclopramide (Reglan) injection 10 mg (10 mg IntraVENous Given 10/25/23 0938) diphenhydrAMINE (BENADryl) injection 25 mg (25 mg IntraVENous Given 10/25/23 0939) lactated ringers bolus 1,000 mL (0 mL IntraVENous Stopped 10/25/23 1132) iopamidol (Isovue-370) 76 % injection 75 mL (75 mL IntraVENous Given 10/25/23 1108) haloperidol lactate (Haldol) injection 2 mg (2 mg IntraVENous Given 10/25/23 1310) REVAL: CRITICAL CARE TIME None CONSULTS: None PROCEDURES: Unless otherwise noted below, none Procedures Patients symptoms are consistent with sepsis, severe sepsis, or septic shock (If yes use .sepsiscoremeasure): no FINAL IMPRESSION 1. Nausea vomiting and diarrhea 2. Dehydration 3. Cyclic vomiting syndrome DISPOSITION Observation 10/25/2023 01:22:35 PM PATIENT REFERRED TO: No follow-up provider specified. DISCHARGE MEDICATIONS: New Prescriptions No medications on file (Comment: Please note this report has been produced using speech recognition software and may contain errors related to that system including errors in grammar, punctuation, and spelling, as well as words and phrases that may be inappropriate. If there are any questions or concerns please feel freeto contact the dictating provider for clarification.) FLORIDA Melgoza CNP (electronically signed) Emergency Medicine Provider FLORIDA Melgoza CNP 10/25/23 1323 FLOR[place] Melgoza CNP 10/25/23 1325 * James Neil MD - 10/25/2023 8:45 AM EDT Emergency Department Encounter [facility] ED Patient: Mayito Forbes : 1985 Date of Evaluation: 10/25/2023 ED Supervising Physician: James Neil MD I personally evaluated Mayito Forbes and made/approved the management plan and take responsibilityfor the patient management. This will serve as my Supervisory note and shared attestation. I did perform a substantive portion of the visit including all aspects of the Medical Decision Making. I wore appropriate PPE for the entirety of this encounter. In brief, Mayito Forbes is a 38 y.o. that presents to the emergency department with chief complaint of nausea, vomiting, diarrhea with generalized abdominal discomfort. Endorses marijuana use. Focused exam: 38-year-old male. Afebrile. Normal work of breathing. Abdomen soft with reported generalized tenderness. No guarding or rebound tenderness. Brief ED course/MDM: Patient treated symptomatically. CT abdomen unremarkable. Patient admitted forfurther symptomatic treatment All diagnostic, treatment, and disposition decisions were made by myself in conjunction with the MARYELLEN. For all further details of the patient's emergency department visit, please see their documentation. (Comment: Please note this report has been produced using speech recognition software and may contain errors related to that system including errors in grammar, punctuation, and spelling, as well as words and phrases that may be inappropriate. If there are any questions or concerns please feel freeto contact the dictating provider for clarification.) James Neil MD Acute Care [facility] James Neil MD 10/26/[address] [facility]05-28-2024 Physician Emergency department Note* FLORIDA Melgoza CNP - 10/25/2023 8:45 AM EDT EMERGENCY DEPARTMENT ENCOUNTER Pt Name: Mayito Forbes Birthdate 1985 Date of evaluation: 10/25/2023 ED Provider: FLOR[place] Melgoza CNP This patient was seen in conjunction with Dr. Neil CHIEF COMPLAINT Chief Complaint Patient presents with Vomiting N/V/D x2 days HISTORY OF PRESENT ILLNESS (Location/Symptom, Timing/Onset, Context/Setting, Quality, Duration, Modifying Factors, Severity) Note limiting factors. I wore appropriate PPE for the entirety of this encounter. HPI Mayito Forbes is a 38 y.o. who presents to the emergency department with chief complaint of nauseavomiting and diarrhea for the last 2 days complaining of generalized abdominal pain. He states he has not been able to keep down anything since Tuesday evening. Denies similar sick contacts. He has been seen for this several times also seen in 2022 for an opiate overdose he denies that these could be withdrawal symptoms he states he does smoke marijuana but he needs to stop smoking marijuana because he is on parole, he states I warned them this would happen if I stopped. Nursing Notes were reviewed. Limitations to history: None Outside historians: None REVIEW OF SYSTEMS Review of Systems Constitutional: Negative for activity change, appetite change, chills and fever. HENT: Negative for congestion, nosebleeds, postnasal drip, sore throat and trouble swallowing. Eyes: Negative for pain and visual disturbance. Respiratory: Negative for cough and shortness of breath. Cardiovascular: Negative for chest pain. Gastrointestinal: Positive for abdominal pain, diarrhea, nausea and vomiting. Negative for abdominal distention, anal bleeding, blood in stool, constipation and rectal pain. Genitourinary: Negative for dysuria, flank pain, hematuria, penile discharge, scrotal swelling and testicular pain. Musculoskeletal: Negative for arthralgias, back pain and myalgias. Skin: Negative for rash and wound. Neurological: Negative for dizziness, syncope, weakness and light-headedness. Psychiatric/Behavioral: Negative for agitation and confusion. All other systems reviewed and are negative. Pertinent positives and negatives as per HPI. PAST MEDICAL HISTORY History reviewed. No pertinent past medical history. SURGICAL HISTORY History reviewed. No pertinent surgical history. CURRENT MEDICATIONS Previous Medications VENLAFAXINE XR (EFFEXOR XR) 225 MG 24 HR TABLET Take 225 mg by mouth daily (with breakfast). Do notcrush, chew, or split. ALLERGIES Patient has no known allergies. FAMILY HISTORY No family history on file. SOCIAL HISTORY Social History Socioeconomic History Marital status: Single Tobacco Use Smoking status: Every Day Packs/day: 1 Types: Cigarettes Vaping Use Vaping Use: Never used Substance and Sexual Activity Alcohol use: Not Currently Drug use: Yes Types: Methamphetamines SCREENINGS Jolanta Coma Scale Best Eye Response: Spontaneous Best Verbal Response: Oriented Best Motor Response: Follows commands Jolanta Coma Scale Score: 15 PHYSICAL EXAM ED Triage Vitals [10/25/23 0846] Temp Heart Rate Resp BP 37.2 C (99 F) (!) 121 (!) 30 (!) 143/103 SpO2 Temp Source Heart Rate Source Patient Position 99 % Temporal Monitor -- BP Location FiO2 (%) -- -- Physical Exam Vitals and nursing note reviewed. Constitutional: General: He is not in acute distress. Appearance: Normal appearance. He is normal weight. He is not ill-appearing or toxic-appearing. HENT: Head: Normocephalic and atraumatic. Right Ear: External ear normal. Left Ear: External ear normal. Mouth/Throat: Mouth: Mucous membranes are moist. Pharynx: Oropharynx is clear. Eyes: Extraocular Movements: Extraocular movements intact. Conjunctiva/sclera: Conjunctivae normal. Pupils: Pupils are equal, round, and reactive to light. Cardiovascular: Comments: Tachycardic rate, regular rhythm, normal S1-S2, no murmurs noted. Radial pulses 2+ and symmetric. Abdominal: Comments: The abdomen is soft, nondistended and nontender. There is no rebound tenderness or guarding. Bowel sounds are normal. Musculoskeletal: General: No swelling, tenderness, deformity or signs of injury. Normal range of motion. Cervical back: Normal range of motion and neck supple. No rigidity or tenderness. Lymphadenopathy: Cervical: No cervical adenopathy. Skin: General: Skin is warm and dry. Capillary Refill: Capillary refill takes less than 2 seconds. Coloration: Skin is not jaundiced or pale. Findings: No bruising or erythema. Neurological: General: No focal deficit present. Mental Status: He is alert and oriented to person, place, and time. Mental status is at baseline. Cranial Nerves: No cranial nerve deficit. Sensory: No sensory deficit. Motor: No weakness. Coordination: Coordination normal. Psychiatric: Mood and Affect: Mood normal. DIAGNOSTIC RESULTS Procedures/EKG: EKG was reviewed by myself. Physician EKG interpretation can be found in [facility] RADIOLOGY (Per Emergency Physician): Interpretation per the Radiologist below, if available at the time of this note: CT abdomen pelvis w contrast Final Result No acute process. Report Dictated on Electronically Signed By: Alonzo Kimbrough MD Electronically Signed Date/Time: 10/25/2023 11:27 AM EDT ED BEDSIDE ULTRASOUND: Performed by ED Physician - none LABS: Labs Reviewed COMPREHENSIVE METABOLIC PANEL - Abnormal Result Value SODIUM 143 POTASSIUM 3.4 (*) CHLORIDE 99 CARBON DIOXIDE 22 ANION GAP 23 (*) UREA NITROGEN 19 CREATININE 1.07 GLUCOSE 176 (*) CALCIUM 11.0 (*) AST (SGOT) 31 ALT 52 (*) ALKALINE PHOSPHATASE 117 ALBUMIN 5.3 (*) BILIRUBIN, TOTAL 1.1 TOTAL PROTEIN 9.5 (*) eGFR >90.0 LACTIC ACID WITH REFLEX - Abnormal LACTIC ACID 2.6 (*) CBC (HEMOGRAM) - Abnormal Auto WBC 10.9 (*) RBC 6.30 (*) Hemoglobin 19.5 (*) Hematocrit 52.8 (*) MCV 83.8 MCH 31.0 MCHC 36.9 (*) RDW 11.8 Platelets 287 MPV 8.8 (*) BASIC METABOLIC PANEL - Abnormal SODIUM 143 POTASSIUM 3.4 (*) CHLORIDE 101 CARBON DIOXIDE 25 UREA NITROGEN 19 CREATININE 1.20 GLUCOSE 138 (*) CALCIUM 9.2 ANION GAP 17 (*) eGFR 79.4 LIPASE - Normal LIPASE 43 LACTIC ACID WITH REFLEX - Normal LACTIC ACID 2.0 BETA HYDROXYBUTYRATE All other labs were within normal range or not returned as of this dictation. EMERGENCY DEPARTMENT COURSE and DIFFERENTIAL DIAGNOSIS/MDM: Vitals: Vitals: 10/25/23 0846 10/25/23 1135 10/25/23 1145 10/25/23 1230 BP: (!) 143/103 (!) 148/98 (!) 154/100 (!) 149/100 Pulse: (!) 121 (!) 111 101 94 Resp: (!) 30 22 Temp: 37.2 C (99 F) TempSrc: Temporal SpO2: 99% 99% 99% 98% Diagnoses as of 10/27/23 1118 Dehydration Nausea vomiting and diarrhea Cyclic vomiting syndrome Opioid use disorder The patient presented with chief complaint of with chief complaint of nausea vomiting and diarrhea for the last 2 days complaining of generalized abdominal pain. He states he has not been able to keep down anything since Tuesday evening. Denies similar sick contacts. He has been seen for this several times also seen in 2022 for an opiate overdose he denies that these could be withdrawal symptoms he states he does smoke marijuana but he needs to stop smoking marijuana because he is on parole, he states I warned them this would happen if I stopped.. The differential diagnosis associated with this patient's presentation includes gastroenteritis, withdrawal, cyclic vomiting, pancreatitis, cholecystitis, cholelithiasis, ileus. Our workup consisted of ordering/reviewing: CBC, CMP, lipase, lactic acid, Reglan, Benadryl, IV fluids. Diagnostic tests considered but not performed: none To aid in management, I performed an independent interpretation of none. I also reviewed external records from hospitalizations where the patient was positive for THC. I discussed their care with Admitting team CDU MARYELLEN. Consideration for escalation of care with: Admission/observation hydration and symptom control. The patient will be Admitted. Patient is in agreement with this plan. Medications sodium chloride 0.9 % infusion (125 mL/hr IntraVENous New Bag 10/25/23 1311) haloperidol lactate (Haldol) injection 2 mg (has no administration in time range) sodium chloride 0.9 % bolus 1,000 mL (0 mL IntraVENous Stopped 10/25/23 1039) metoclopramide (Reglan) injection 10 mg (10 mg IntraVENous Given 10/25/23 0938) diphenhydrAMINE (BENADryl) injection 25 mg (25 mg IntraVENous Given 10/25/23 0939) lactated ringers bolus 1,000 mL (0 mL IntraVENous Stopped 10/25/23 1132) iopamidol (Isovue-370) 76 % injection 75 mL (75 mL IntraVENous Given 10/25/23 1108) haloperidol lactate (Haldol) injection 2 mg (2 mg IntraVENous Given 10/25/23 1310) REVAL: CRITICAL CARE TIME None CONSULTS: None PROCEDURES: Unless otherwise noted below, none Procedures Patients symptoms are consistent with sepsis, severe sepsis, or septic shock (If yes use .sepsiscoremeasure): no FINAL IMPRESSION 1. Nausea vomiting and diarrhea 2. Dehydration 3. Cyclic vomiting syndrome DISPOSITION Observation 10/25/2023 01:22:35 PM PATIENT REFERRED TO: No follow-up provider specified. DISCHARGE MEDICATIONS: New Prescriptions No medications on file (Comment: Please note this report has been produced using speech recognition software and may contain errors related to that system including errors in grammar, punctuation, and spelling, as well as words and phrases that may be inappropriate. If there are any questions or concerns please feel freeto contact the dictating provider for clarification.) FLORIDA Melgoza CNP (electronically signed) Emergency Medicine Provider FLORIDA Melgoza CNP 10/25/23 1323 FLORIDA Melgoza CNP 10/25/23 1325 [id number] Emergency [facility] Note* James Neil MD - 10/25/2023 8:45 AM EDT Emergency Department Encounter [facility] ED Patient: Mayito Forbes : 1985 Date of Evaluation: 10/25/2023 ED Supervising Physician: James Neil MD I personally evaluated Mayito Forbes and made/approved the management plan and take responsibilityfor the patient management. This will serve as my Supervisory note and shared attestation. I did perform a substantive portion of the visit including all aspects of the Medical Decision Making. I wore appropriate PPE for the entirety of this encounter. In brief, Mayito Forbes is a 38 y.o. that presents to the emergency department with chief complaint of nausea, vomiting, diarrhea with generalized abdominal discomfort. Endorses marijuana use. Focused exam: 38-year-old male. Afebrile. Normal work of breathing. Abdomen soft with reported generalized tenderness. No guarding or rebound tenderness. Brief ED course/MDM: Patient treated symptomatically. CT abdomen unremarkable. Patient admitted forfurther symptomatic treatment All diagnostic, treatment, and disposition decisions were made by myself in conjunction with the MARYELLEN. For all further details of the patient's emergency department visit, please see their documentation. (Comment: Please note this report has been produced using speech recognition software and may contain errors related to that system including errors in grammar, punctuation, and spelling, as well as words and phrases that may be inappropriate. If there are any questions or concerns please feel freeto contact the dictating provider for clarification.) James Neil MD [employer] James Neil MD 10/26/23 1502 [facility] Work Phone: [phone]) 420-717404-30-2024 NoteHNO ID: [id number] Author: MARC FUNG LSW Service: Care Management Author Type: Marine Engine Machinist Type: Care Mgt Progress Note Filed: 09/27/2023 14:36 Note Text: CARE MANAGEMENT PROGRESS NOTE SERVICE DATE: 09/27/2023 SERVICE TIME: 10:45 AM LOS: 0 days Follow Up The patient was sleeping and declined to wake up to discuss his past substance use and social work noticed his tox screen has not been done yet. Nursing reports they are waiting on urine sample. At [facility] on 06-07-23 +THC and neg for everything else; 06-02-22 presumptive positive for Fentanyl; 12-24-21 presumptive positive for Amphetamines, Fentanyl, and THC. Social work will see again later today. Nursing will try to get urine sample for tox screen. Social work will continue to follow. 09/27/23 1243 TOXICOLOGY SCREEN, ROUTINE URINE Collected: 09/27/23 1159 Final result Specimen: Urine (Nonspecific) Phencyclidine Urine Negative Opiates Urine Negative Benzodiazepines Urine Negative Barbiturates Urine Negative Cocaine Urine Negative Ethanol, Urine <11 mg/dL Amphetamines Urine Negative Oxycodone, Urine Negative Cannabinoids, Urine Preliminary positive Abnormal 2:15 PM Social work seen the patient. The patient reports he used Delta 8 THC bought at [employer] and was updated that it is synthetic THC which is not regulated. He reports he will not use delta 8 THC in future. The patient denies any active needs and reports he is doing good with sobriety. The patient reports he never used Delta 8 near any children. SIGNATURE: YESSICA Pritchard PATIENT NAME: Mayito Forbes DATE: September 27, 2023 TIME: 10:54 AM PAGER/CONTACT #[phone]23 NoteHNO ID: [id number] Author: LISSET HAMILTON RN Service: Care Management Author Type: Registered Nurse Type: Care Mgt Initial Assessment Filed: 09/27/2023 08:48 Note Text: CARE MANAGEMENT: ASSESSMENT AND DISCHARGE PLAN SERVICE DATE: September 27, 2023 SERVICE TIME: 8:43 AM PCP: No primary care provider on file. Primary Contact: Extended Emergency Contact Information Primary Emergency Contact: Cecy Forbes Relation: Grandparent Admission Status: Observation Insurance Provider: [employer] MEDICA[employer] [facility] Discharge Planning requested by: Per Department Practice Potential Transition Plans Advance Directives Current Living Arrangements and Support Lives with: Spouse/significant other (Patient lives with significant toher and her 7 year old daughter) Type of Residence: Private Residence (House) Support: Current Services/Equipment Discharge Planning Patient Goal(s): [place] of Choice Explained: [place] of Choice Given: No Reason Not Given: No placements necessary Are you interested in bedside delivery of your medications? No Discharge Planning Participant(s): Patient/Family Comments: Caregiver Assessment: Transport at Discharge: Needs Prior to Discharge: Needs Prior to Discharge: To Be Determined;Other: See Comment (social work to see for polysubstance use) Post-Acute Discharge Plan: Patient admitted to [facility] under OBS with c/o SELMA. Patient did have sick contact. Patient lives with girlfriend and her 7 year old daughter - was ill last week. Patient with polysubstance use - history of amphetamine, THC and fentanyl use. Last drug screen recorded from May 2023 was negative for substances. Social Work notified. Patient also without PCP. CM discussed importance of having a PCP and provided him with Need a Provider information. Anticipate patient to return home when medically ready for discharge. SIGNATURE: Lisset Hamilton RN PATIENT NAME: Mayito Forbes DATE: September 27, 2023 TIME: 8:43 AM CONTACT #: [phone] Note HNO ID: [id number] Author: CHLOE SHAFFER RN Service: Nursing Author Type: Registered Nurse Type: Nursing Progress Note Filed: 09/27/2023 00:02 Note Text: Bed [facility] given to ED [facility] History of Present illness Narrative* Madhavi Justin DO - 09/26/2023 11:50 AM EDT N/V x2 days Can't keep anything down Hands started cramping this monring, can't control them Feels SOB, LH No CP Lips turning a different color Hx of anxiety No hx of DM No new meds Does not want to go by EMS BP 120/84 Pulse (!) 112 Temp 36.9 C (98.4 F) SpO2 100% * Radha Batista, ENTREPRENEURSHIP PROGRAM DIRECTOR - OFFICE NURSE PRACTITIONER - 09/26/2023 11:50 AM EDT Images from the original note were not included. [facility] [address] [place] [id number] Dept: [phone] Dept Loc: [phone] Subjective Mayito Forbes is a 38 y.o. year old male who presents to the office with the following complaint(s): No chief complaint on file. See above note for HPI Review of Systems Constitutional: Negative for chills and fever. Denies alcohol or drug use Denies new medications denies new foods HENT: Negative for congestion, rhinorrhea and trouble swallowing. Around mouth tingling/numbness Respiratory: Negative for shortness of breath. Cardiovascular: Negative for chest pain and palpitations. Gastrointestinal: Positive for abdominal pain, nausea and vomiting. Negative for constipation and diarrhea. Neurological: Positive for dizziness. Negative for headaches. No Known Allergies No past medical history on file. No past surgical history on file. No family history on file. Social History Socioeconomic History Marital status: Single Tobacco Use Smoking status: Every Day Packs/day: 1 Types: Cigarettes Vaping Use Vaping Use: Never used Substance and Sexual Activity Alcohol use: Not Currently Drug use: Yes Types: Methamphetamines Current Outpatient Medications on File Prior to Visit Medication Sig Dispense Refill venlafaxine XR (Effexor XR) 225 MG 24 hr tablet Take 225 mg by mouth daily (with breakfast). Do notcrush, chew, or split. No current facility-administered medications on file prior to visit. Objective BP 120/84 Pulse (!) 112 Temp 36.9 C (98.4 F) SpO2 100% Physical Exam Constitutional: Appearance: He is diaphoretic. HENT: Head: Normocephalic. Nose: Nose normal. Mouth/Throat: Lips: No lesions. Comments: Lip color appears dusky Eyes: Pupils: Pupils are equal, round, and reactive to light. Cardiovascular: Rate and Rhythm: Regular rhythm. Tachycardia present. Heart sounds: Normal heart sounds. Pulmonary: Effort: No respiratory distress. Breath sounds: Normal breath sounds. Musculoskeletal: Comments: Patient noted to be holding hands in contractured position Skin: General: Skin is warm. Neurological: General: No focal deficit present. Mental Status: He is alert. Psychiatric: Mood and Affect: Mood normal. Thought Content: Thought content normal. Judgment: Judgment normal. BS-133 Limited evaluation due to sending patient to emergency department Assessment: 1. Cramping of hands 2. Dizziness 3. Nausea and vomiting, unspecified vomiting type Diagnoses and all orders for this visit: Cramping of hands (Primary) - AMB POC GLUCOSE TEST Dizziness - AMB POC GLUCOSE TEST Nausea and vomiting, unspecified vomiting type - AMB POC GLUCOSE TEST Initially-patient stated he did not want to go by EMS. Visitor said she felt comfortable taking patient, however visitor told patient it would be 23 minutes to get to [place] emergency department. Patient stated he wanted to go via EMS. I explained to patient that with his symptoms-having a further evaluation would be recommended. I explained capabilities of urgent care-patient understanding. Patient noted to leave with EMS. Vital signs stable other than tachycardia. (Please note that portions of this note may have been completed with a voice recognition program. Efforts were made to edit the dictations but occasionally words aremis-transcribed.) BENY Huang 09/26/[address] [facility]04-01-2024 NoteHNO ID: [id number] Author: GENEVA CALDERA APRN.NOE Service: ? Author Type: Nurse Practitioner Type: Progress Notes Filed: 08/29/2023 18:05 Note Text: This note was created using NoteWriter. Subjective Mayito Forbes is a 38 year old male. HPI by patient: Mayito Forbes is a 38 year old presenting to the office with the complaint of bilateral ear pain. Started approximately 1 month. Associated symptoms include some sinus pressure, ringing of the ears, and tender lymph nodes. States he does note a click when chewing at times, has painful chewing. Denies fever, cough that is new, body aches, fatigue, sore throat, headache, and gi symptoms. Covid Immunization Dates Overdue - Covid-19 Vaccine ( season) Overdue since 01/28/2023 09/24/2020 Imm Admin: COVID-19 original vaccine, full dose, monovalent (MODERNA) 08/27/2020 Imm Admin: COVID-19 original vaccine, full dose, monovalent (MODERNA) Sick contacts: none. Smoking history/second hand smoke: none. OTC debrox. No antibiotic use in the last 60 days. ALLERGIES No Known Allergies No family history on file. Active Ambulatory Problems Nicotine use disorder, F17.2 Date Noted: 05/09/2022 Obesity, Class II, BMI 35-39.9 Date Noted: 05/09/2022 Resolved Ambulatory Problems Nausea and vomiting in adult Date Noted: 05/08/2022 Past Medical History: No date: Psychiatric disorder Review of Systems Constitutional: Negative. HENT: Positive for ear pain, sinus pressure and tinnitus. Negative for congestion. Eyes: Negative. Respiratory: Negative. Cardiovascular: Negative. Gastrointestinal: Negative. Endocrine: Negative. Genitourinary: Negative. Musculoskeletal: Negative. Skin: Negative. Neurological: Negative. Objective BP 154/85 Pulse 94 Temp 36.9 ?C (98.5 ?F) Resp 16 Ht 175.3 cm (5' 9) Wt 87.5 kg (193 lb 0.2 oz) SpO2 96% BMI 28.50 kg/m? Physical Exam Vitals reviewed. Constitutional: General: He is awake. He is not in acute distress. Appearance: He is not ill-appearing, toxic-appearing or diaphoretic. HENT: Head: Normocephalic and atraumatic. Comments: +slight right tmj click. Right Ear: Tympanic membrane, ear canal and external ear normal. Left Ear: Tympanic membrane, ear canal and external ear normal. Nose: Right Sinus: Maxillary sinus tenderness present. No frontal sinus tenderness. Left Sinus: Maxillary sinus tenderness present. No frontal sinus tenderness. Mouth/Throat: Mouth: Mucous membranes are moist. Pharynx: Oropharynx is clear. No pharyngeal swelling, oropharyngeal exudate or posterior oropharyngeal erythema. Cardiovascular: Rate and Rhythm: Normal rate and regular rhythm. Pulmonary: Effort: Pulmonary effort is normal. Breath sounds: Normal breath sounds. Lymphadenopathy: Head: Right side of head: No submandibular or tonsillar adenopathy. Left side of head: No submandibular or tonsillar adenopathy. Cervical: No cervical adenopathy (not enlarged but states pain on palpation). Neurological: Mental Status: He is alert. Psychiatric: Behavior: Behavior is cooperative. Assessment and Plan (H93.19) Tinnitus, unspecified laterality (primary encounter diagnosis) (H92.03) Acute otalgia, bilateral Plan: methylPREDNISolone (MEDROL DOSE-PACK) 4 mg Dose-Pack, cetirizine (ZYRTEC) 10 mg tablet (H69.93) Eustachian tube dysfunction, bilateral Plan: methylPREDNISolone (MEDROL DOSE-PACK) 4 mg Dose-Pack, cetirizine (ZYRTEC) 10 mg tablet (M26.621) TMJ tenderness, right Plan: methylPREDNISolone (MEDROL DOSE-PACK) 4 mg Dose-Pack, cetirizine (ZYRTEC) 10 mg tablet Bilateral TMs are healthy. Slight right tmj click. Will treat with steroids and an antihistamine. -OTC tylenol/ibuprofen as directed on the bottle. -Eustachian tube and tmj packet given. -Make follow up with primary care for monitoring and resolution in symptoms. -Signs that warrant an ER evaluation: Sudden change/worsening in condition, lethargy, signs of dehydration, fever greater than 102 F that is not responding to Tylenol or ibuprofen (Motrin, Advil), drooling, difficulty swallowing, difficulty breathing, shortness of breath, chest pain, evidence of airway compromise (tripod position, neck extension, retractions), seizures, changes in mental status, or other concerns. The patient will pursue further outpatient evaluation with the primary care physician or another Urgent Care/Express Care as outlined in the after visit summary. The patient is agreeable to this plan of care and follow-up instructions have been explained in detail. The patient has received these instructions in written format and have expressed an understanding of the after visit summary. Medical Decision Making: Level: 4 - Moderate I spent a total of 20 minutes on the date of the service which included preparing to see the patient, [id number] patient care, completing clinical documentation, obtaining and (more content not included)...[facility]04-01-2024 History of Present illness Narrative* Geneva Caldera APRN.MONOTYPE MECHANIC - 08/29/2023 5:47 PM EDT This note was created using Sproutlingter. Subjective Mayito Forbes is a 38 year old male. HPI by patient: Mayito Forbes is a 38 year old presenting to the office with the complaint of bilateral ear pain. Started approximately 1 month. Associated symptoms include some sinus pressure, ringing of the ears, and tender lymph nodes. States he does note a click when chewing at times, has painful chewing. Denies fever, cough that is new, body aches, fatigue, sore throat, headache, and gi symptoms. Covid Immunization Dates Overdue - Covid-19 Vaccine ( season) Overdue since 01/28/2023 09/24/2020 Imm Admin: COVID-19 original vaccine, full dose, monovalent (MODERNA) 08/27/2020 Imm Admin: COVID-19 original vaccine, full dose, monovalent (MODERNA) Sick contacts: none. Smoking history/second hand smoke: none. OTC debrox. No antibiotic use in the last 60 days. ALLERGIES No Known Allergies No family history on file. Active Ambulatory Problems Nicotine use disorder, F17.2 Date Noted: 05/09/2022 Obesity, Class II, BMI 35-39.9 Date Noted: 05/09/2022 Resolved Ambulatory Problems Nausea and vomiting in adult Date Noted: 05/08/2022 Past Medical History: No date: Psychiatric disorder Review of Systems Constitutional: Negative. HENT: Positive for ear pain, sinus pressure and tinnitus. Negative for congestion. Eyes: Negative. Respiratory: Negative. Cardiovascular: Negative. Gastrointestinal: Negative. Endocrine: Negative. Genitourinary: Negative. Musculoskeletal: Negative. Skin: Negative. Neurological: Negative. Objective BP 154/85 Pulse 94 Temp 36.9 C (98.5 F) Resp 16 Ht 175.3 cm (5' 9) Wt 87.5 kg (193 lb 0.2 oz) SpO2 96% BMI 28.50 kg/m Physical Exam Vitals reviewed. Constitutional: General: He is awake. He is not in acute distress. Appearance: He is not ill-appearing, toxic-appearing or diaphoretic. HENT: Head: Normocephalic and atraumatic. Comments: +slight right tmj click. Right Ear: Tympanic membrane, ear canal and external ear normal. Left Ear: Tympanic membrane, ear canal and external ear normal. Nose: Right Sinus: Maxillary sinus tenderness present. No frontal sinus tenderness. Left Sinus: Maxillary sinus tenderness present. No frontal sinus tenderness. Mouth/Throat: Mouth: Mucous membranes are moist. Pharynx: Oropharynx is clear. No pharyngeal swelling, oropharyngeal exudate or posterior oropharyngeal erythema. Cardiovascular: Rate and Rhythm: Normal rate and regular rhythm. Pulmonary: Effort: Pulmonary effort is normal. Breath sounds: Normal breath sounds. Lymphadenopathy: Head: Right side of head: No submandibular or tonsillar adenopathy. Left side of head: No submandibular or tonsillar adenopathy. Cervical: No cervical adenopathy (not enlarged but states pain on palpation). Neurological: Mental Status: He is alert. Psychiatric: Behavior: Behavior is cooperative. Assessment and Plan (H93.19) Tinnitus, unspecified laterality (primary encounter diagnosis) (H92.03) Acute otalgia, bilateral Plan: methylPREDNISolone (MEDROL DOSE-PACK) 4 mg Dose-Pack, cetirizine (ZYRTEC) 10 mg tablet (H69.93) Eustachian tube dysfunction, bilateral Plan: methylPREDNISolone (MEDROL DOSE-PACK) 4 mg Dose-Pack, cetirizine (ZYRTEC) 10 mg tablet (M26.621) TMJ tenderness, right Plan: methylPREDNISolone (MEDROL DOSE-PACK) 4 mg Dose-Pack, cetirizine (ZYRTEC) 10 mg tablet Bilateral TMs are healthy. Slight right tmj click. Will treat with steroids and an antihistamine. -OTC tylenol/ibuprofen as directed on the bottle. -Eustachian tube and tmj packet given. -Make follow up with primary care for monitoring and resolution in symptoms. -Signs that warrant an ER evaluation: Sudden change/worsening in condition, lethargy, signs of dehydration, fever greater than 102 F thatis not responding to Tylenol or ibuprofen (Motrin, Advil), drooling, difficulty swallowing, difficulty breathing, shortness of breath, chest pain, evidence of airway compromise (tripod position, neck extension, retractions), seizures, changes in mental status, or other concerns. The patient will pursue further outpatient evaluation with the primary care physician or another Urgent Care/Express Care as outlined in the after visit summary. The patient is agreeable to this planof care and follow-up instructions have been explained in detail. The patient has received these instructions in written format and have expressed an understanding of the after visit summary. Medical Decision Making: Level: 4 - Moderate I spent a total of 20 minutes on the date of the service which included preparing to see the patient, [id number]-[id number] patient care, completing clinical documentation, obtaining and/or reviewing separately obtained history, performing a medically appropriate examination, counseling and educating the pat ient/family/caregiver, and ordering medications, tests, or procedures. documented in this encounterUniversity [facility]04-[facility]24 Instructions* Patient Instructions* Geneva Caldera APRN.CNP - 08/29/2023 5:47 PM EDT (H93.19) Tinnitus, unspecified laterality (primary encounter diagnosis) (H92.03) Acute otalgia, bilateral Plan: methylPREDNISolone (MEDROL DOSE-PACK) 4 mg Dose-Pack, cetirizine (ZYRTEC) 10 mg tablet (H69.93) Eustachian tube dysfunction, bilateral Plan: methylPREDNISolone (MEDROL DOSE-PACK) 4 mg Dose-Pack, cetirizine (ZYRTEC) 10 mg tablet (M26.621) TMJ tenderness, right Plan: methylPREDNISolone (MEDROL DOSE-PACK) 4 mg Dose-Pack, cetirizine (ZYRTEC) 10 mg tablet Bilateral TMs are healthy. Slight right tmj click. Will treat with steroids and an antihistamine. -OTC tylenol/ibuprofen as directed on the bottle. -Eustachian tube and tmj packet given. -Make follow up with primary care for monitoring and resolution in symptoms. -Signs that warrant an ER evaluation: Sudden change/worsening in condition, lethargy, signs of dehydration, fever greater than 102 F thatis not responding to Tylenol or ibuprofen (Motrin, Advil), drooling, difficulty swallowing, difficulty breathing, shortness of breath, chest pain, evidence of airway compromise (tripod position, neck extension, retractions), seizures, changes in mental status, or other concerns. Lifestyle and home remedies: Often, tinnitus can't be treated. Some people, however, get used to it and notice it less than theydid at first. For many people, certain adjustments make the symptoms less bothersome. These tips may help: Use hearing protection. Over time, exposure to loud sounds can damage the nerves in the ears, causing hearing loss and tinnitus. To keep your tinnitus from getting worse, take steps to protect your hearing. If you use chain saws, are a musician, work in an industry that uses loud machinery or use firearms (especially pistols or shotguns), always wear luyp-gik-eld hearing protection. Turn down the volume. Listening to music at very high volume through headphones can contribute to hearing loss and tinnitus. Use white noise. If tinnitus is especially noticeable in quiet settings, try using a white noise machine to mask the noise from tinnitus. If you don't have a white noise machine, a fan, soft music orlow-volume radio static also may help. Limit alcohol, caffeine and nicotine. These substances, especially when used in excess, can affect blood flow and contribute to tinnitus. documented in this encounterUniversity [facility]03-25-2024 Hospital Discharge instructions* Discharge Instructions* León Gilmore II, MD - 08/22/2023 11:33 PM EDT You were seen in the emergency department today after a finger/hand injury. We did an x-ray which did not show any fractures. This will likely heal within the next few days. You can alternate Tylenoland ibuprofen for pain control. Return to the emergency department or see your primary care provider if you have buildup of blood under the nail. * Attachments The following attachments cannot be sent through Care Everywhere. * Bruising Under the Nail ([place]) documented in this [facility]03-25-2024 Emergency department Note* Marc Lainez DO - 08/22/2023 10:20 PM EDT Emergency Department Encounter [facility] ED Patient: Mayito Forbes : 1985 Date of Evaluation: 08/22/2023 ED Supervising Physician: Marc Lainez DO I personally evaluated Mayito Forbes and made/approved the management plan and take responsibilityfor the patient management. This will serve as my Supervisory note and shared attestation. I did perform a substantive portion of the visit including all aspects of the Medical Decision Making. I wore appropriate PPE for the entirety of this encounter. In brief, Mayito Forbes is a 38 y.o. that presents to the emergency department with crushing injury of left fifth finger with a hammer. Evidence of bleeding. Focused exam: Subungual hematoma of the left fifth finger that is draining, no obvious laceration external from the nail. The distal tip of the pinky is bruised and pale. Flexion and extension of the pinky are intact. Hand is otherwise atraumatic. Brief ED course/MDM: 11:36 PM - The patient presented with chief complaint of crush injury of the left fifth finger. Seehistory and physical exam above. Plain films will be obtained to evaluate for fracture.. To aid in management, I performed an independent interpretation of all laboratory tests, EKG, imaging, and other diagnostics ordered. Plain films are negative for acute fracture as interpreted by me, see radiologist report for details. The subungual hematoma is already draining, no need for trephination. There is likely a laceration under the nail that would not be approached at this time, will be left to heal by secondary intention. The patient will be discharged with wound care instructions and follow-up to PCP. All diagnostic, treatment, and disposition decisions were made by myself in conjunction with the Resident. I also supervised canales portions of any procedures performed by the Resident. For all further details of the patient's emergency department visit, please see their documentation. (Comment: Please note this report has been produced using speech recognition software and may contain errors related to that system including errors in grammar, punctuation, and spelling, as well as words and phrases that may be inappropriate. If there are any questions or concerns please feel freeto contact the dictating provider for clarification.) Marc Lainez DO [employer] Marc Lainez DO 08/22/23 2336 * León Gilmore II, MD - 08/22/2023 10:20 PM EDT EMERGENCY DEPARTMENT ENCOUNTER Pt Name: Mayito Forbes Birthdate 1985 Date of evaluation: 08/22/2023 ED Provider: León Gilmore II, MD CHIEF COMPLAINT Chief Complaint Patient presents with Hand Pain HISTORY OF PRESENT ILLNESS (Location/Symptom, Timing/Onset, Context/Setting, Quality, Duration, Modifying Factors, Severity) Note limiting factors. I wore appropriate PPE for the entirety of this encounter. HPI Mayito Forbes is a 38 y.o. who presents to the emergency department with concerns for hand pain after an injury at work. Patient hit his left fifth digit at work with a hammer, and since that time has had swelling and pain with active and passive range of motion over the fifth digit and metacarpal. Nursing Notes were reviewed. Limitations to history: Outside historians: REVIEW OF SYSTEMS Review of Systems Pertinent positives and negatives as per HPI. PAST MEDICAL HISTORY No past medical history on file. SURGICAL HISTORY No past surgical history on file. CURRENT MEDICATIONS Previous Medications VENLAFAXINE XR (EFFEXOR XR) 225 MG 24 HR TABLET Take 225 mg by mouth daily (with breakfast). Do notcrush, chew, or split. ALLERGIES Patient has no known allergies. FAMILY HISTORY No family history on file. SOCIAL HISTORY Social History Socioeconomic History Marital status: Single Tobacco Use Smoking status: Every Day Packs/day: 1 Types: Cigarettes Vaping Use Vaping Use: Never used Substance and Sexual Activity Alcohol use: Not Currently Drug use: Yes Types: Methamphetamines SCREENINGS PHYSICAL EXAM ED Triage Vitals [08/22/23 2223] Temp Heart Rate Resp BP 36.8 C (98.3 F) 91 14 109/77 SpO2 Temp Source Heart Rate Source Patient Position 98 % Temporal Monitor -- BP Location FiO2 (%) -- -- Physical Exam Vitals and nursing note reviewed. Constitutional: General: He is not in acute distress. Appearance: He is well-developed. HENT: Head: Normocephalic and atraumatic. Eyes: Conjunctiva/sclera: Conjunctivae normal. Cardiovascular: Rate and Rhythm: Normal rate and regular rhythm. Heart sounds: No murmur heard. Pulmonary: Effort: Pulmonary effort is normal. No respiratory distress. Breath sounds: Normal breath sounds. Abdominal: Palpations: Abdomen is soft. Tenderness: There is no abdominal tenderness. Musculoskeletal: General: No swelling. Cervical back: Neck supple. Comments: Swelling over the left fifth digit and pain with active and passive range of motion. Painover the distal, middle, and proximal phalanges joints as well as the fifth metacarpal. Evidence ofruptured subungual hematoma. Skin: General: Skin is warm and dry. Capillary Refill: Capillary refill takes less than 2 seconds. Neurological: Mental Status: He is alert. Psychiatric: Mood and Affect: Mood normal. DIAGNOSTIC RESULTS RADIOLOGY (Per Emergency Physician): Interpretation per the Radiologist below, if available at the time of this note: XR hand 3+ views left Final Result 1. No acute osseous abnormality. Report Dictated on Electronically Signed By: Joseph Kellogg MD Electronically Signed Date/Time: 08/22/2023 11:04 PM EDT LABS: Labs Reviewed - No data to display All other labs were within normal range or not returned as of this dictation. EMERGENCY DEPARTMENT COURSE and DIFFERENTIAL DIAGNOSIS/MDM: Vitals: Vitals: 08/22/23 2223 BP: 109/77 Pulse: 91 Resp: 14 Temp: 36.8 C (98.3 F) TempSrc: Temporal SpO2: 98% 38-year-old male presenting to the emergency department with hand pain. Patient hit his left fifth digit with a hammer at work and has had severe pain since then. Obtained x-ray, which demonstrated no fractures or other acute abnormality. Patient likely has a ruptured subungual hematoma of his leftfifth digit. Patient discharged from the emergency department. Diagnoses as of 08/22/23 2339 Subungual hematoma of fingernail, initial encounter External records reviewed: Diagnostics interpreted by me: Discussions with other clinicians: Chronic conditions impacting care: Social determinants of health affecting care: ED Medications managed: Medications - No data to display Prescription drugs considered: PROCEDURES: Unless otherwise noted below, none Procedures FINAL IMPRESSION 1. Subungual hematoma of fingernail, initial encounter DISPOSITION Discharge 08/22/2023 11:33:01 PM PATIENT REFERRED TO: No follow-up provider specified. DISCHARGE MEDICATIONS: New Prescriptions No medications on file (Comment: Please note this report has been produced using speech recognition software and may contain errors related to that system including errors in grammar, punctuation, and spelling, as well as words and phrases that may be inappropriate. If there are any questions or concerns please feel freeto contact the dictating provider for clarification.) León Gilmore II, MD (electronically signed) Emergency Medicine Provider León Gimlore II, MD Resident 08/22/23 2342 * Radha Cedeno RN - 08/22/2023 10:20 PM EDT Pt presents with L pinky finger injury after smashing with hammer at work today. Is UTD on tetanus.Some swelling and bruising noted to hand . Limited movement to finger. +tingling to fingers on L side documented in this encounterSParkview Health Montpelier [id number] Emergency department Triage note* Radha Cedeno RN - 08/22/2023 10:20 PM EDT Pt presents with L pinky finger injury after smashing with hammer at work today. Is UTD on tetanus.Some swelling and bruising noted to hand . Limited movement to finger. +tingling to fingers on L side [id number] Physician Emergency department Note* Marc Lainez DO - 08/22/2023 10:20 PM EDT Emergency Department Encounter [facility] ED Patient: Mayito Forbes : 1985 Date of Evaluation: 08/22/2023 ED Supervising Physician: Marc Lainez DO I personally evaluated Mayito Forbes and made/approved the management plan and take responsibilityfor the patient management. This will serve as my Supervisory note and shared attestation. I did perform a substantive portion of the visit including all aspects of the Medical Decision Making. I wore appropriate PPE for the entirety of this encounter. In brief, Mayito Forbes is a 38 y.o. that presents to the emergency department with crushing injury of left fifth finger with a hammer. Evidence of bleeding. Focused exam: Subungual hematoma of the left fifth finger that is draining, no obvious laceration external from the nail. The distal tip of the pinky is bruised and pale. Flexion and extension of the pinky are intact. Hand is otherwise atraumatic. Brief ED course/MDM: 11:36 PM - The patient presented with chief complaint of crush injury of the left fifth finger. Seehistory and physical exam above. Plain films will be obtained to evaluate for fracture.. To aid in management, I performed an independent interpretation of all laboratory tests, EKG, imaging, and other diagnostics ordered. Plain films are negative for acute fracture as interpreted by me, see radiologist report for details. The subungual hematoma is already draining, no need for trephination. There is likely a laceration under the nail that would not be approached at this time, will be left to heal by secondary intention. The patient will be discharged with wound care instructions and follow-up to PCP. All diagnostic, treatment, and disposition decisions were made by myself in conjunction with the Resident. I also supervised canales portions of any procedures performed by the Resident. For all further details of the patient's emergency department visit, please see their documentation. (Comment: Please note this report has been produced using speech recognition software and may contain errors related to that system including errors in grammar, punctuation, and spelling, as well as words and phrases that may be inappropriate. If there are any questions or concerns please feel freeto contact the dictating provider for clarification.) Marc Lainez DO [facility] Marc Lainez DO 08/22/23 [address] [id number] Physician Emergency department Note* León Gilmore II, MD - 08/22/2023 10:20 PM EDT EMERGENCY DEPARTMENT ENCOUNTER Pt Name: Mayito Forbes Birthdate 1985 Date of evaluation: 08/22/2023 ED Provider: León Gilmore II, MD CHIEF COMPLAINT Chief Complaint Patient presents with Hand Pain HISTORY OF PRESENT ILLNESS (Location/Symptom, Timing/Onset, Context/Setting, Quality, Duration, Modifying Factors, Severity) Note limiting factors. I wore appropriate PPE for the entirety of this encounter. HPI Mayito Forbes is a 38 y.o. who presents to the emergency department with concerns for hand pain after an injury at work. Patient hit his left fifth digit at work with a hammer, and since that time has had swelling and pain with active and passive range of motion over the fifth digit and metacarpal. Nursing Notes were reviewed. Limitations to history: Outside historians: REVIEW OF SYSTEMS Review of Systems Pertinent positives and negatives as per HPI. PAST MEDICAL HISTORY No past medical history on file. SURGICAL HISTORY No past surgical history on file. CURRENT MEDICATIONS Previous Medications VENLAFAXINE XR (EFFEXOR XR) 225 MG 24 HR TABLET Take 225 mg by mouth daily (with breakfast). Do notcrush, chew, or split. ALLERGIES Patient has no known allergies. FAMILY HISTORY No family history on file. SOCIAL HISTORY Social History Socioeconomic History Marital status: Single Tobacco Use Smoking status: Every Day Packs/day: 1 Types: Cigarettes Vaping Use Vaping Use: Never used Substance and Sexual Activity Alcohol use: Not Currently Drug use: Yes Types: Methamphetamines SCREENINGS PHYSICAL EXAM ED Triage Vitals [08/22/23 2223] Temp Heart Rate Resp BP 36.8 C (98.3 F) 91 14 109/77 SpO2 Temp Source Heart Rate Source Patient Position 98 % Temporal Monitor -- BP Location FiO2 (%) -- -- Physical Exam Vitals and nursing note reviewed. Constitutional: General: He is not in acute distress. Appearance: He is well-developed. HENT: Head: Normocephalic and atraumatic. Eyes: Conjunctiva/sclera: Conjunctivae normal. Cardiovascular: Rate and Rhythm: Normal rate and regular rhythm. Heart sounds: No murmur heard. Pulmonary: Effort: Pulmonary effort is normal. No respiratory distress. Breath sounds: Normal breath sounds. Abdominal: Palpations: Abdomen is soft. Tenderness: There is no abdominal tenderness. Musculoskeletal: General: No swelling. Cervical back: Neck supple. Comments: Swelling over the left fifth digit and pain with active and passive range of motion. Painover the distal, middle, and proximal phalanges joints as well as the fifth metacarpal. Evidence ofruptured subungual hematoma. Skin: General: Skin is warm and dry. Capillary Refill: Capillary refill takes less than 2 seconds. Neurological: Mental Status: He is alert. Psychiatric: Mood and Affect: Mood normal. DIAGNOSTIC RESULTS RADIOLOGY (Per Emergency Physician): Interpretation per the Radiologist below, if available at the time of this note: XR hand 3+ views left Final Result 1. No acute osseous abnormality. Report Dictated on Electronically Signed By: Joseph Kellogg MD Electronically Signed Date/Time: 08/22/2023 11:04 PM EDT LABS: Labs Reviewed - No data to display All other labs were within normal range or not returned as of this dictation. EMERGENCY DEPARTMENT COURSE and DIFFERENTIAL DIAGNOSIS/MDM: Vitals: Vitals: 08/22/23 2223 BP: 109/77 Pulse: 91 Resp: 14 Temp: 36.8 C (98.3 F) TempSrc: Temporal SpO2: 98% 38-year-old male presenting to the emergency department with hand pain. Patient hit his left fifth digit with a hammer at work and has had severe pain since then. Obtained x-ray, which demonstrated no fractures or other acute abnormality. Patient likely has a ruptured subungual hematoma of his leftfifth digit. Patient discharged from the emergency department. Diagnoses as of 08/22/23 2339 Subungual hematoma of fingernail, initial encounter External records reviewed: Diagnostics interpreted by me: Discussions with other clinicians: Chronic conditions impacting care: Social determinants of health affecting care: ED Medications managed: Medications - No data to display Prescription drugs considered: PROCEDURES: Unless otherwise noted below, none Procedures FINAL IMPRESSION 1. Subungual hematoma of fingernail, initial encounter DISPOSITION Discharge 08/22/2023 11:33:01 PM PATIENT REFERRED TO: No follow-up provider specified. DISCHARGE MEDICATIONS: New Prescriptions No medications on file (Comment: Please note this report has been produced using speech recognition software and may contain errors related to that system including errors in grammar, punctuation, and spelling, as well as words and phrases that may be inappropriate. If there are any questions or concerns please feel freeto contact the dictating provider for clarification.) León Gilmore II, MD (electronically signed) Emergency Medicine Provider León Gilmore II, MD Resident 08/22/232 [facility] [employer] Work Phone: 1(269) 216-690701-09-2024 Hospital Discharge instructions* Discharge Instr - Activity* FLORIDA Scherer CNP - 06/07/2023 4:32 PM EST NO RESTRICTIONS * Discharge Instr - Diet* [place]OR[place] Scherer CNP - 06/07/2023 4:32 PM EST FOLLOW A BLAND DIET AND ADVANCE TOLERATED * Attachments The following attachments cannot be sent through Care Everywhere. * Cannabis Hyperemesis Syndrome ([place]) documented in this encounterSParkview Health Montpelier [id number] Note* Care Coordination - Seven Maldonado RN - 06/07/2023 2:21 PM EST Reviewed chart. Observation status to CDU with N/V. Receiving cont ivf and prn antiemetics. Monitorlabs. Tentative discharge plan is home when medically stable. . [facility] [id number] Note* Care Coordination - Seven Maldonado RN - 06/07/2023 2:21 PM EST Reviewed chart. Observation status to CDU with N/V. Receiving cont ivf and prn antiemetics. Monitorlabs. Tentative discharge plan is home when medically stable. . [facility] [id number] Miscellaneous Notes* Care Coordination - Seven Maldonado RN - 06/07/2023 2:21 PM EST Reviewed chart. Observation status to CDU with N/V. Receiving cont ivf and prn antiemetics. Monitorlabs. Tentative discharge plan is home when medically stable. . [facility] this [facility]01-09-[facility] Emergency department Note* Magdalena Rosas RN - 06/07/2023 7:52 AM EST Report given to KIMMY Daley at [facility] Magdalena Rosas RN 06/07/23 0753 [facility] [id number] Emergency department Note* Magdalena Rosas RN - 06/07/2023 7:52 AM EST Report given to KIMMY Daley at [facility] Magdalena Rosas RN 06/07/23 0753 * Meagan Obrien RN - 06/07/2023 6:20 AM EST Patient ambulated to the restroom with stand-by assistance. Patient states that he is feeling better than he did yesterday and stated that he got much needed rest. Meagan Obrien RN 06/07/23 0621 * Meagan Obrien RN - 06/07/2023 12:58 AM EST Patient on telemetry monitoring. Meagan Obrien RN 06/07/23 0058 * Meagan Obrien RN - 06/06/2023 11:30 PM EST NURY Perez and this RN at bedside. Patient hard to arouse, does not answer questions when asked stares with eyes open. Meagan Obrien RN 06/07/23 0012 Meagan Obrien RN 06/07/23 0024 * Meagan Obrien RN - 06/06/2023 11:23 PM EST Provider notified about increase in patient HR. Meagan Obrien RN 06/06/23 232 * Meagan Obrien RN - 06/06/2023 10:30 PM EST This RN called lab to get and update on the status of patient COVID swab. Lab states that they never received patients nasal swab. This RN collected another COVID nasal swab and sent a downtime form with swab along with a patient label sticker. Meagan Obrien RN 06/06/23 232 * Meagan Obrien RN - 06/06/2023 8:24 PM EST KIMMY Iverson in room doing US IV. Meagan Obrien RN 06/06/232023 * Meagan Obrien RN - 06/06/2023 7:49 PM EST Notified [place] charge nurse that patient needs ultrasound IV. 3 nurse/medic attempts. Meagan Obrien RN 06/06/23 1950 * Meagan Obrien RN - 06/06/2023 7:15 PM EST Received report from KIMMY Case. Meagan Obrien RN 06/06/231946 * James Neil MD - 06/06/2023 6:23 PM EST EMERGENCY DEPARTMENT ENCOUNTER Pt Name: Mayito Forbes Birthdate 1985 Date of evaluation: 06/06/2023 ED Provider: James Neil MD CHIEF COMPLAINT Chief Complaint Patient presents with Vomiting Pt presents to ED with c/o vomiting and diarrhea since 0100 today. Also c/o generalized abdominal pain HISTORY OF PRESENT ILLNESS (Location/Symptom, Timing/Onset, Context/Setting, Quality, Duration, Modifying Factors, Severity) Note limiting factors. I wore appropriate PPE for the entirety of this encounter. HPI Mayito Forbes is a 37 y.o. who presents to the emergency department chief complaint of generalizedabdominal pain with nausea, vomiting, diarrhea. He endorses sick contacts with sore throats recently. He denies any nasal congestion or sore throat. He endorses regular marijuana usage. He does endorse recent relapse of opiate medication but states that he has not been using regularly with last usebeing 2 days ago. Denies chest pain or shortness of breath. Patient brought in by significant other. Nursing Notes were reviewed. Outside historians: Significant other REVIEW OF SYSTEMS Review of Systems Constitutional: Positive for chills, fatigue and fever. HENT: Negative for sore throat. Respiratory: Negative for cough and shortness of breath. Cardiovascular: Negative for chest pain. Gastrointestinal: Positive for abdominal pain, diarrhea, nausea and vomiting. Negative for blood instool. Genitourinary: Negative for dysuria and urgency. Musculoskeletal: Negative for neck pain. Skin: Negative for rash. Pertinent positives and negatives as per HPI PAST MEDICAL HISTORY History reviewed. No pertinent past medical history. SURGICAL HISTORY History reviewed. No pertinent surgical history. CURRENT MEDICATIONS Discharge Medication List as of 06/07/2023 5:26 PM CONTINUE these medications which have NOT CHANGED Details venlafaxine XR (Effexor XR) 225 MG 24 hr tablet Take 225 mg by mouth daily (with breakfast). Do notcrush, chew, or split., Historical Med ALLERGIES Patient has no known allergies. FAMILY HISTORY No family history on file. SOCIAL HISTORY Social History Socioeconomic History Marital status: Single Tobacco Use Smoking status: Every Day Packs/day: 1 Types: Cigarettes Vaping Use Vaping Use: Never used Substance and Sexual Activity Alcohol use: Not Currently Drug use: Yes Types: Methamphetamines SCREENINGS Jolanta Coma Scale Best Eye Response: Spontaneous Best Verbal Response: Oriented Best Motor Response: Follows commands Jolanta Coma Scale Score: 15 PHYSICAL EXAM ED Triage Vitals [06/06/23 1833] Temp Heart Rate Resp BP 36.7 C (98.1 F) 102 18 (!) 139/101 SpO2 Temp Source Heart Rate Source Patient Position 98 % Temporal Monitor -- BP Location FiO2 (%) -- -- Physical Exam Vitals and nursing note reviewed. Constitutional: General: He is not in acute distress. Appearance: He is ill-appearing. Comments: 37-year-old male HENT: Head: Normocephalic and atraumatic. Eyes: Extraocular Movements: Extraocular movements intact. Pupils: Pupils are equal, round, and reactive to light. Cardiovascular: Rate and Rhythm: Regular rhythm. Tachycardia present. Pulses: Normal pulses. Pulmonary: Effort: Pulmonary effort is normal. Breath sounds: Normal breath sounds. Abdominal: Palpations: Abdomen is soft. Tenderness: There is no abdominal tenderness. There is no right CVA tenderness, left CVA tenderness, guarding or rebound. Musculoskeletal: Cervical back: Normal range of motion. Skin: General: Skin is warm and dry. Findings: No rash. Neurological: Mental Status: He is alert. DIAGNOSTIC RESULTS RADIOLOGY (Per Emergency Physician): Interpretation per the Radiologist below, if available at the time of this note: XR chest 1 view Final Result 1. Lines/Tubes/Devices/Hardware: Leads noted. Please confirm position and function of any cathetersor attempted catheters clinically. 2. Lungs: No convincing acute process.. Limited due to portable technique. Consider follow-up with PA and lateral chest for persistent symptoms. 3. Pleura: No significant effusion. No significant pneumothorax. 4. Heart and mediastinum: Limited due to technique. 5. Upper abdomen: No acute process seen. 6. Thorax:No acute bony process Report Dictated on Electronically Signed By: Darren Junior MD Electronically Signed Date/Time: 06/07/2023 1:[address] abdomen pelvis w contrast Final Result 1. No acute findings. Report Dictated on Electronically Signed By: Joseph Kellogg MD Electronically Signed Date/Time: 06/06/2023 9:56 PM EST LABS: Labs Reviewed COMPREHENSIVE METABOLIC PANEL - Abnormal Result Value SODIUM 140 POTASSIUM 4.2 CHLORIDE 107 CARBON DIOXIDE 18 (*) ANION GAP 15 (*) UREA NITROGEN 14 CREATININE 0.77 GLUCOSE 132 (*) CALCIUM 9.9 AST (SGOT) 28 ALT 33 ALKALINE PHOSPHATASE 92 ALBUMIN 4.9 BILIRUBIN, TOTAL 0.6 TOTAL PROTEIN 8.8 (*) eGFR >90.0 LIPASE - Abnormal LIPASE 22 (*) CBC WITH AUTO DIFFERENTIAL - Abnormal Auto WBC 13.6 (*) RBC 6.06 (*) Hemoglobin 18.8 (*) Hematocrit 53.9 (*) MCV 89.0 MCH 31.1 MCHC 34.9 RDW 13.1 Platelets 366 MPV 7.4 nRBC 0.4 Neutrophils Relative 94.4 (*) Lymphocytes Relative 2.6 (*) Monocytes Relative 2.9 Eosinophils Relative 0.0 (*) Basophils Relative 0.1 Neutrophils Absolute 12.9 (*) Lymphocytes Absolute 0.4 (*) Monocytes Absolute 0.4 Eosinophils Absolute 0.0 Basophils Absolute 0.0 COMPLETE URINALYSIS - Abnormal Color, Urine Yellow Clarity, Urine Clear pH, Urine 7.0 Leukocytes, Urine Negative Nitrite, Urine Negative Protein, Urine 70 (*) Glucose, Urine Normal Bilirubin, Urine Negative Ketones, Urine 40 (*) Urobilinogen, Urine Normal Blood, Urine Negative RBC, Urine 3-5 (*) WBC, Urine 3-5 Squamous Epithelial, Urine 0-2 Bacteria, Urine Negative Mucus, Urine Few SPECIFIC GRAVITY OF URINE (NUMERIC) >1.030 (*) SARS-COV-2, FLU A/B, AND RSV COMBO - Normal SARS-CoV-2 Not Detected Respiratory Syncytial Virus Not Detected Influenza A Not Detected Influenza B Not Detected Narrative: Methodology: real-time, RT-PCR The SARS-CoV-2, Flu A/B, and RSV Combo assay is intended for in vitro diagnostic use under the FDA Emergency Use Authorization (EUA). This test has not been FDA cleared or approved. In compliance with this authorization, please visit www.fda.gov/media/158145/download or www.fda.gov/[employer]/128870/download to access the applicable information sheets. TROPONIN I - Normal TROPONIN I <0.012 Narrative: Patients with high levels of Biotin oral intake (ie >5 mg/day) may have falsely decreased Troponin levels. MAGNESIUM - Normal MAGNESIUM 2.0 COMPLETE URINALYSIS WITH REFLEX TO CULTURE Narrative: The following orders were created for panel order Urinalysis complete with reflex to Culture. Procedure Abnormality Status --------- ------ Complete Urinalysis[[id number]] Abnormal Final result Please view results for these tests on the individual orders. DRUGS OF ABUSE AMPHETAMINE SCREEN Negative BARBITURATES SCREEN Negative BENZODIAZEPINE SCREEN Negative COCAINE METAB. SCREEN Negative METHADONE SCREEN Negative OPIATES SCREEN Negative OXYCODONE SCREEN Negative PHENCYCLIDINE SCREEN Negative Narrative: The expected value for all of the drugs listed above is Negative. The following drugs or drug groups have been screened for by Immunoassay at the following thresholds: Amphetamine class (1000 ng/mL) Barbiturates (200 ng/mL) Benzodiazepines (200 ng/mL) Cocaine (300 ng/mL) Methadone (300 ng/mL) Opiates (300 ng/mL) Oxycodone (100 ng/mL) PCP (25 ng/mL) NOTE: These results are for medical treatment only. Analysis performed using non-forensic procedures. POSITIVE results are NOT confirmed by a more specific alternative method unless requested. If confirmation is needed, request confirmation under separateorder. THC SCREEN STAT LAB THC, URINE Positive All other labs were within normal range or not returned as of this dictation. EMERGENCY DEPARTMENT COURSE and DIFFERENTIAL DIAGNOSIS/MDM: Vitals: Vitals: 06/07/23 0127 06/07/23 0319 06/07/23 0532 06/07/23 0813 BP: 120/78 113/77 129/84 106/77 BP Location: Left arm Left arm Patient Position: Lying Lying Pulse: 101 103 101 74 Resp: 22 22 21 20 Temp: 36.8 C (98.2 F) TempSrc: Oral SpO2: 93% 93% 94% 94% Weight: Medications droperidol (Inapsine) injection 1.25 mg (1.25 mg IntraVENous Given 06/07/23 0051) ondansetron ODT (Zofran-ODT) disintegrating tablet 4 mg (has no administration in time range) polyethylene glycol (PEG) 3350 (Miralax) packet 17 g (has no administration in time range) pantoprazole (ProtoNix) EC tablet 40 mg (40 mg Oral Given 06/07/23 0632) acetaminophen (Tylenol) tablet 650 mg (has no administration in time range) Or acetaminophen (Tylenol) suppository 650 mg (has no administration in time range) sodium chloride 0.9 % infusion (125 mL/hr IntraVENous New Bag 06/07/23 0851) venlafaxine XR (Effexor XR) 24 hr capsule 225 mg (225 mg Oral Given 06/07/23 1154) nicotine (Nicoderm, Step 1) 21 MG/24HR patch 1 patch (1 patch TransDERmal Medication Applied 154) sodium chloride 0.9 % bolus 1,000 mL (0 mL IntraVENous Stopped 06/06/23 213) prochlorperazine (Compazine) injection 10 mg (10 mg IntraVENous Given 06/06/23 190) diphenhydrAMINE (BENADryl) injection 50 mg (50 mg IntraVENous Given 06/06/23 2107) iopamidol (Isovue-370) 76 % injection 100 mL (75 mL IntraVENous Given 06/06/23 2149) sodium chloride 0.9 % bolus 1,000 mL (0 mL IntraVENous Stopped 06/07/23 0030) sodium chloride 0.9 % bolus 1,000 mL (0 mL IntraVENous Stopped 06/07/23 0148) Diagnoses as of 06/07/23 1856 Nausea and vomiting, unspecified vomiting type Abdominal pain, unspecified abdominal location Leukocytosis, unspecified type Evaluated for his generalized abdominal pain with nausea, vomiting, diarrhea. Treated symptomatically with intravenous. Compazine, diphenhydramine, fluids. Patient redosed with fluids and droperidol.Request consistent with a slight leukocytosis. Screening troponin normal. Lipase normal. Normal hepatic function. CT abdomen obtained negative for acute findings. I personally evaluated Mayito oFrbes and made/approved the management plan and take responsibilityfor the patient management. This will serve as my Supervisory note and shared attestation. I did perform a substantive portion of the visit including all aspects of the Medical Decision Making. Diagnostics interpreted by me: EKG; see my interpretation elsewhere in the chart All diagnostic, treatment, and disposition decisions were made by myself in conjunction with the MARYELLEN. For all further details of the patient's emergency department visit, please see their documentation. PROCEDURES: Unless otherwise noted below, none Procedures FINAL IMPRESSION 1. Nausea and vomiting, unspecified vomiting type 2. Abdominal pain, unspecified abdominal location 3. Leukocytosis, unspecified type DISPOSITION Observation 06/07/2023 12:52:58 AM PATIENT REFERRED TO: [address] [address] Schedule an appointment as soon as possible for a visit in 1 week(s) DISCHARGE MEDICATIONS: Discharge Medication List as of 06/07/2023 5:26 PM START taking these medications Details ondansetron (Zofran) 4 MG tablet Take 1 tablet (4 mg) by mouth every 8 hours as needed for nausea or vomiting for up to 7 days., Starting 06/07/2023, Until 06/14/2023 at 2359, Normal (Comment: Please note this report has been produced using speech recognition software and may contain errors related to that system including errors in grammar, punctuation, and spelling, as well as words and phrases that may be inappropriate. If there are any questions or concerns please feel freeto contact the dictating provider for clarification.) James Neil MD (electronically signed) Emergency Medicine Provider James Neil MD 06/07/23 5937 * FLORIDA Elliott CNP - 06/06/2023 6:23 PM EST EMERGENCY DEPARTMENT ENCOUNTER Pt Name: Mayito Forbes Birthdate 1985 Date of evaluation: 06/06/2023 ED Provider: FLORIDA Elliott CNP EDcare was supervised by Dr. James Neil who independently examined and evaluated the patient. Please see their attestation note for further details. CHIEF COMPLAINT Chief Complaint Patient presents with Vomiting Pt presents to ED with c/o vomiting and diarrhea since 0100 today. Also c/o generalized abdominal pain HISTORY OF PRESENT ILLNESS (Location/Symptom, Timing/Onset, Context/Setting, Quality, Duration, Modifying Factors, Severity) Note limiting factors. I wore appropriate PPE for the entirety of this encounter. History provided by: Patient and friend (girl friend) captain room service used: Kayli Mayito Forbes is a 37 y.o. male with past medical history for opiate abuse, intravenous drug use and marijuana use presents to the emergency department with complaints of nausea, vomiting, diarrhea and abdominal pain. Patient's girlfriend states that symptoms started at about 1 AM last night. Patient describes abdominal pain as aching and constant. Abdominal pain is worsened by touch. He rates abdominal pain as 7/10. Patient states that he used marijuana 2 days ago. He denies alcohol use, fever, chills or dysuria. Nursing Notes were reviewed. Limitations to history: None Outside historians: None REVIEW OF SYSTEMS Review of Systems Constitutional: Negative for chills and fever. Gastrointestinal: Positive for abdominal pain, diarrhea, nausea and vomiting. Genitourinary: Negative for dysuria. All other systems reviewed and are negative. Pertinent positives and negatives as per HPI. PAST MEDICAL HISTORY History reviewed. No pertinent past medical history. SURGICAL HISTORY History reviewed. No pertinent surgical history. CURRENT MEDICATIONS Previous Medications ACETAMINOPHEN (TYLENOL) 500 MG TABLET BUPRENORPHINE-NALOXONE (SUBOXONE) 2-0.5 MG PER SUBLINGUAL FILM CLONIDINE (CATAPRES) 0.1 MG TABLET DICYCLOMINE (BENTYL) 10 MG CAPSULE DOXYCYCLINE (MONODOX) 100 MG CAPSULE GABAPENTIN (NEURONTIN) 300 MG CAPSULE HYDROXYZINE PAMOATE (VISTARIL) 25 MG CAPSULE IBUPROFEN 400 MG TABLET LOPERAMIDE (IMODIUM) 2 MG CAPSULE NALOXONE (NARCAN) 4 MG/0.1 ML NASAL SPRAY NICOTINE (NICODERM, STEP 2) 14 MG/24HR PATCH ONDANSETRON (ZOFRAN) 4 MG TABLET PANTOPRAZOLE (PROTONIX) 40 MG EC TABLET PENICILLIN V POTASSIUM (VEETID) 500 MG TABLET PREDNISONE (DELTASONE) 20 MG TABLET TRAZODONE (DESYREL) 50 MG TABLET VENLAFAXINE XR (EFFEXOR XR) 150 MG 24 HR CAPSULE VIVITROL INJECTION ALLERGIES Patient has no known allergies. FAMILY HISTORY No family history on file. SOCIAL HISTORY Social History Socioeconomic History Marital status: Single Tobacco Use Smoking status: Every Day Packs/day: 1 Types: Cigarettes Vaping Use Vaping Use: Never used Substance and Sexual Activity Alcohol use: Not Currently Drug use: Yes Types: Methamphetamines SCREENINGS PHYSICAL EXAM ED Triage Vitals [06/06/23 1833] Temp Heart Rate Resp BP 36.7 C (98.1 F) 102 18 (!) 139/101 SpO2 Temp Source Heart Rate Source Patient Position 98 % Temporal Monitor -- BP Location FiO2 (%) -- -- Physical Exam Vitals and nursing note reviewed. Cardiovascular: Rate and Rhythm: Normal rate. Pulmonary: Effort: Pulmonary effort is normal. Abdominal: General: Bowel sounds are normal. Palpations: Abdomen is soft. Tenderness: There is abdominal tenderness in the right lower quadrant and left lower quadrant. There is guarding. There is no right CVA tenderness or left CVA tenderness. Neurological: Mental Status: He is alert and oriented to person, place, and time. DIAGNOSTIC RESULTS RADIOLOGY (Per Emergency Physician): Interpretation per the Radiologist below, if available at the time of this note: CT abdomen pelvis w contrast Final Result 1. No acute findings. Report Dictated on Electronically Signed By: Joseph Kellogg MD Electronically Signed Date/Time: 06/06/2023 9:56 PM EST LABS: Labs Reviewed COMPREHENSIVE METABOLIC PANEL - Abnormal Result Value SODIUM 140 POTASSIUM 4.2 CHLORIDE 107 CARBON DIOXIDE 18 (*) ANION GAP 15 (*) UREA NITROGEN 14 CREATININE 0.77 GLUCOSE 132 (*) CALCIUM 9.9 AST (SGOT) 28 ALT 33 ALKALINE PHOSPHATASE 92 ALBUMIN 4.9 BILIRUBIN, TOTAL 0.6 TOTAL PROTEIN 8.8 (*) eGFR >90.0 LIPASE - Abnormal LIPASE 22 (*) CBC WITH AUTO DIFFERENTIAL - Abnormal Auto WBC 13.6 (*) RBC 6.06 (*) Hemoglobin 18.8 (*) Hematocrit 53.9 (*) MCV 89.0 MCH 31.1 MCHC 34.9 RDW 13.1 Platelets 366 MPV 7.4 nRBC 0.4 Neutrophils Relative 94.4 (*) Lymphocytes Relative 2.6 (*) Monocytes Relative 2.9 Eosinophils Relative 0.0 (*) Basophils Relative 0.1 Neutrophils Absolute 12.9 (*) Lymphocytes Absolute 0.4 (*) Monocytes Absolute 0.4 Eosinophils Absolute 0.0 Basophils Absolute 0.0 SARS-COV-2, FLU A/B, AND RSV COMBO - Normal SARS-CoV-2 Not Detected Respiratory Syncytial Virus Not Detected Influenza A Not Detected Influenza B Not Detected Narrative: Methodology: real-time, RT-PCR The SARS-CoV-2, Flu A/B, and RSV Combo assay is intended for in vitro diagnostic use under the FDA Emergency Use Authorization (EUA). This test has not been FDA cleared or approved. In compliance with this authorization, please visit www.fda.gov/media/070800/download or www.fda.gov/media/799195/download to access the applicable information sheets. TROPONIN I - Normal TROPONIN I <0.012 Narrative: Patients with high levels of Biotin oral intake (ie >5 mg/day) may have falsely decreased Troponin levels. MAGNESIUM - Normal MAGNESIUM 2.0 COMPLETE URINALYSIS WITH REFLEX TO CULTURE Narrative: The following orders were created for panel order Urinalysis complete with reflex to Culture. Procedure Abnormality Status --------- ------ Complete Urinalysis[[id number]] Please view results for these tests on the individual orders. COMPLETE URINALYSIS All other labs were within normal range or not returned as of this dictation. EMERGENCY DEPARTMENT COURSE and DIFFERENTIAL DIAGNOSIS/MDM: Vitals: Vitals: 06/06/23 2138 06/06/23 2222 06/06/23 2322 06/07/23 0024 BP: 129/85 126/86 (!) 136/102 Pulse: 106 97 110 96 Resp: 17 14 17 Temp: 37.2 C (99 F) TempSrc: Oral SpO2: 93% 93% 94% Weight: Medications droperidol (Inapsine) injection 1.25 mg (has no administration in time range) sodium chloride 0.9 % bolus 1,000 mL (has no administration in time range) sodium chloride 0.9 % bolus 1,000 mL (0 mL IntraVENous Stopped 06/06/232137) prochlorperazine (Compazine) injection 10 mg (10 mg IntraVENous Given 06/06/231907) diphenhydrAMINE (BENADryl) injection 50 mg (50 mg IntraVENous Given 06/06/232106) iopamidol (Isovue-370) 76 % injection 100 mL (75 mL IntraVENous Given 06/06/232148) sodium chloride 0.9 % bolus 1,000 mL (0 mL IntraVENous Stopped 06/07/2329) 37-year-old male presented to the ED with complaints of nausea, vomiting, diarrhea and abdominal pain. On exam, patient is alert and oriented x 3. He does not appear to be in acute distress. He is afebrile. No SIRS criteria noted. There is tenderness with palpation of the right lower abdominal quadrant and left lower abdominal quadrant with evidence of guarding. No CVA tenderness noted. Differentials include but are not limited to gastritis, gastroenteritis, appendicitis, diverticulosis, diverticulitis, cannabinoid hyperemesis syndrome, kidney stones and UTI. Workup included EKG, chest x-ray,CT abdomen/pelvis, CBC, CMP, lipase, magnesium level, troponin, COVID test, flu test, RSV test. Medi cations included Compazine, droperidol, Benadryl and fluid bolus. Result of CT abdomen/pelvis interpreted by me and confirmed by radiologist revealed no acute intra-abdominal process. Negative test results for COVID, flu and RSV. CBC revealed leukocytosis with WBC 13.6, H&H 18.8/53.9. Lipase 22. Negative troponin. Normal magnesium level at 2.0. CMP revealed normal kidney function, liver function and electrolytes. Chest x-ray is pending. Patient was updated with lab and imaging results. He continues to experience nausea after treatment. He was still tachycardic with rate in the 115's bolus. Decision was made to admit the patient to the hospital for observation. MDM elements: I discussed their care with Admitting team CDU team. Patient was accepted for admission for observation. Patient is in agreement with this plan. PROCEDURES: Unless otherwise noted below, none Procedures CRITICAL CARE TIME None FINAL IMPRESSION 1. Nausea and vomiting, unspecified vomiting type 2. Abdominal pain, unspecified abdominal location 3. Leukocytosis, unspecified type DISPOSITION Observation 06/07/2023 12:50:29 AM PATIENT REFERRED TO: No follow-up provider specified. DISCHARGE MEDICATIONS: New Prescriptions No medications on file (Comment: Please note this report has been produced using speech recognition software and may contain errors related to that system including errors in grammar, punctuation, and spelling, as well as words and phrases that may be inappropriate. If there are any questions or concerns please feel freeto contact the dictating provider for clarification.) FLORIDA Elliott CNP (electronically signed) Emergency Medicine Provider FLORIDA Elliott CNP 06/07/[address] [facility]01-09-2024 Emergency department Note* Meagan Obrien RN - 06/07/2023 6:20 AM EST Patient ambulated to the restroom with stand-by assistance. Patient states that he is feeling better than he did yesterday and stated that he got much needed rest. Meagan Obrien RN 06/07/[address]09-2024 Emergency department Note* Meagan Obrien RN - 06/07/2023 12:58 AM EST Patient on telemetry monitoring. eMagan Obrien RN 06/07/23 0058 [facility]01-08-2024 Emergency department Note* Meagan Obrien RN - 06/06/2023 11:30 PM EST NURY Perez and this RN at bedside. Patient hard to arouse, does not answer questions when asked stares with eyes open. Meagan Obrien RN 06/07/23 0012 Meagan Obrien RN 06/07/[address]08-2024 Emergency department Note* Meagan Obrien RN - 06/06/2023 11:23 PM EST Provider notified about increase in patient HR. Meagan Obrien RN 06/06/[address]08-2024 Emergency department Note* Meagan Obrien RN - 06/06/2023 10:30 PM EST This RN called lab to get and update on the status of patient COVID swab. Lab states that they never received patients nasal swab. This RN collected another COVID nasal swab and sent a downtime form with swab along with a patient label sticker. Meagan Obrien RN 06/06/23 [address]08-2024 Emergency department Note* Meagan Obrien RN - 06/06/2023 8:24 PM EST KIMMY Iverson in room doing US IV. Meagan Obrien RN 06/06/232023 [facility]01-08-2024 Emergency department Note* Meagan Obrien RN - 06/06/2023 7:49 PM EST Notified [place] charge nurse that patient needs ultrasound IV. 3 nurse/medic attempts. Meagan Obrien RN 06/06/231949 [address]08-2024 Emergency department Note* Meagan Obrien RN - 06/06/2023 7:15 PM EST Received report from KIMMY Case. Meagan Obrien RN 06/06/231946 [address]08-2024 Physician Emergency department Note* James Neil MD - 06/06/2023 6:23 PM EST EMERGENCY DEPARTMENT ENCOUNTER Pt Name: Mayito Forbes Birthdate 1985 Date of evaluation: 06/06/2023 ED Provider: James Neil MD CHIEF COMPLAINT Chief Complaint Patient presents with Vomiting Pt presents to ED with c/o vomiting and diarrhea since 0100 today. Also c/o generalized abdominal pain HISTORY OF PRESENT ILLNESS (Location/Symptom, Timing/Onset, Context/Setting, Quality, Duration, Modifying Factors, Severity) Note limiting factors. I wore appropriate PPE for the entirety of this encounter. HPI Mayito Forbes is a 37 y.o. who presents to the emergency department chief complaint of generalizedabdominal pain with nausea, vomiting, diarrhea. He endorses sick contacts with sore throats recently. He denies any nasal congestion or sore throat. He endorses regular marijuana usage. He does endorse recent relapse of opiate medication but states that he has not been using regularly with last usebeing 2 days ago. Denies chest pain or shortness of breath. Patient brought in by significant other. Nursing Notes were reviewed. Outside historians: Significant other REVIEW OF SYSTEMS Review of Systems Constitutional: Positive for chills, fatigue and fever. HENT: Negative for sore throat. Respiratory: Negative for cough and shortness of breath. Cardiovascular: Negative for chest pain. Gastrointestinal: Positive for abdominal pain, diarrhea, nausea and vomiting. Negative for blood instool. Genitourinary: Negative for dysuria and urgency. Musculoskeletal: Negative for neck pain. Skin: Negative for rash. Pertinent positives and negatives as per HPI PAST MEDICAL HISTORY History reviewed. No pertinent past medical history. SURGICAL HISTORY History reviewed. No pertinent surgical history. CURRENT MEDICATIONS Discharge Medication List as of 06/07/2023 5:26 PM CONTINUE these medications which have NOT CHANGED Details venlafaxine XR (Effexor XR) 225 MG 24 hr tablet Take 225 mg by mouth daily (with breakfast). Do notcrush, chew, or split., Historical Med ALLERGIES Patient has no known allergies. FAMILY HISTORY No family history on file. SOCIAL HISTORY Social History Socioeconomic History Marital status: Single Tobacco Use Smoking status: Every Day Packs/day: 1 Types: Cigarettes Vaping Use Vaping Use: Never used Substance and Sexual Activity Alcohol use: Not Currently Drug use: Yes Types: Methamphetamines SCREENINGS Jolanta Coma Scale Best Eye Response: Spontaneous Best Verbal Response: Oriented Best Motor Response: Follows commands Clayton Coma Scale Score: 15 PHYSICAL EXAM ED Triage Vitals [06/06/23 1833] Temp Heart Rate Resp BP 36.7 C (98.1 F) 102 18 (!) 139/101 SpO2 Temp Source Heart Rate Source Patient Position 98 % Temporal Monitor -- BP Location FiO2 (%) -- -- Physical Exam Vitals and nursing note reviewed. Constitutional: General: He is not in acute distress. Appearance: He is ill-appearing. Comments: 37-year-old male HENT: Head: Normocephalic and atraumatic. Eyes: Extraocular Movements: Extraocular movements intact. Pupils: Pupils are equal, round, and reactive to light. Cardiovascular: Rate and Rhythm: Regular rhythm. Tachycardia present. Pulses: Normal pulses. Pulmonary: Effort: Pulmonary effort is normal. Breath sounds: Normal breath sounds. Abdominal: Palpations: Abdomen is soft. Tenderness: There is no abdominal tenderness. There is no right CVA tenderness, left CVA tenderness, guarding or rebound. Musculoskeletal: Cervical back: Normal range of motion. Skin: General: Skin is warm and dry. Findings: No rash. Neurological: Mental Status: He is alert. DIAGNOSTIC RESULTS RADIOLOGY (Per Emergency Physician): Interpretation per the Radiologist below, if available at the time of this note: XR chest 1 view Final Result 1. Lines/Tubes/Devices/Hardware: Leads noted. Please confirm position and function of any cathetersor attempted catheters clinically. 2. Lungs: No convincing acute process.. Limited due to portable technique. Consider follow-up with PA and lateral chest for persistent symptoms. 3. Pleura: No significant effusion. No significant pneumothorax. 4. Heart and mediastinum: Limited due to technique. 5. Upper abdomen: No acute process seen. 6. Thorax:No acute bony process Report Dictated on Electronically Signed By: Darren Junior MD Electronically Signed Date/Time: 06/07/2023 1:[address] abdomen pelvis w contrast Final Result 1. No acute findings. Report Dictated on Electronically Signed By: Joseph Kellogg MD Electronically Signed Date/Time: 06/06/2023 9:56 PM EST LABS: Labs Reviewed COMPREHENSIVE METABOLIC PANEL - Abnormal Result Value SODIUM 140 POTASSIUM 4.2 CHLORIDE 107 CARBON DIOXIDE 18 (*) ANION GAP 15 (*) UREA NITROGEN 14 CREATININE 0.77 GLUCOSE 132 (*) CALCIUM 9.9 AST (SGOT) 28 ALT 33 ALKALINE PHOSPHATASE 92 ALBUMIN 4.9 BILIRUBIN, TOTAL 0.6 TOTAL PROTEIN 8.8 (*) eGFR >90.0 LIPASE - Abnormal LIPASE 22 (*) CBC WITH AUTO DIFFERENTIAL - Abnormal Auto WBC 13.6 (*) RBC 6.06 (*) Hemoglobin 18.8 (*) Hematocrit 53.9 (*) MCV 89.0 MCH 31.1 MCHC 34.9 RDW 13.1 Platelets 366 MPV 7.4 nRBC 0.4 Neutrophils Relative 94.4 (*) Lymphocytes Relative 2.6 (*) Monocytes Relative 2.9 Eosinophils Relative 0.0 (*) Basophils Relative 0.1 Neutrophils Absolute 12.9 (*) Lymphocytes Absolute 0.4 (*) Monocytes Absolute 0.4 Eosinophils Absolute 0.0 Basophils Absolute 0.0 COMPLETE URINALYSIS - Abnormal Color, Urine Yellow Clarity, Urine Clear pH, Urine 7.0 Leukocytes, Urine Negative Nitrite, Urine Negative Protein, Urine 70 (*) Glucose, Urine Normal Bilirubin, Urine Negative Ketones, Urine 40 (*) Urobilinogen, Urine Normal Blood, Urine Negative RBC, Urine 3-5 (*) WBC, Urine 3-5 Squamous Epithelial, Urine 0-2 Bacteria, Urine Negative Mucus, Urine Few SPECIFIC GRAVITY OF URINE (NUMERIC) >1.030 (*) SARS-COV-2, FLU A/B, AND RSV COMBO - Normal SARS-CoV-2 Not Detected Respiratory Syncytial Virus Not Detected Influenza A Not Detected Influenza B Not Detected Narrative: Methodology: real-time, RT-PCR The SARS-CoV-2, Flu A/B, and RSV Combo assay is intended for in vitro diagnostic use under the FDA Emergency Use Authorization (EUA). This test has not been FDA cleared or approved. In compliance with this authorization, please visit www.fda.gov/media/588173/download or www.fda.gov/media/469059/download to access the applicable information sheets. TROPONIN I - Normal TROPONIN I <0.012 Narrative: Patients with high levels of Biotin oral intake (ie >5 mg/day) may have falsely decreased Troponin levels. MAGNESIUM - Normal MAGNESIUM 2.0 COMPLETE URINALYSIS WITH REFLEX TO CULTURE Narrative: The following orders were created for panel order Urinalysis complete with reflex to Culture. Procedure Abnormality Status --------- ------ Complete Urinalysis[[id number]] Abnormal Final result Please view results for these tests on the individual orders. DRUGS OF ABUSE AMPHETAMINE SCREEN Negative BARBITURATES SCREEN Negative BENZODIAZEPINE SCREEN Negative COCAINE METAB. SCREEN Negative METHADONE SCREEN Negative OPIATES SCREEN Negative OXYCODONE SCREEN Negative PHENCYCLIDINE SCREEN Negative Narrative: The expected value for all of the drugs listed above is Negative. The following drugs or drug groups have been screened for by Immunoassay at the following thresholds: Amphetamine class (1000 ng/mL) Barbiturates (200 ng/mL) Benzodiazepines (200 ng/mL) Cocaine (300 ng/mL) Methadone (300 ng/mL) Opiates (300 ng/mL) Oxycodone (100 ng/mL) PCP (25 ng/mL) NOTE: These results are for medical treatment only. Analysis performed using non-forensic procedures. POSITIVE results are NOT confirmed by a more specific alternative method unless requested. If confirmation is needed, request confirmation under separateorder. THC SCREEN STAT LAB THC, URINE Positive All other labs were within normal range or not returned as of this dictation. EMERGENCY DEPARTMENT COURSE and DIFFERENTIAL DIAGNOSIS/MDM: Vitals: Vitals: 06/07/23 0127 06/07/23 0319 06/07/23 0532 06/07/23 0813 BP: 120/78 113/77 129/84 106/77 BP Location: Left arm Left arm Patient Position: Lying Lying Pulse: 101 103 101 74 Resp: 22 22 21 20 Temp: 36.8 C (98.2 F) TempSrc: Oral SpO2: 93% 93% 94% 94% Weight: Medications droperidol (Inapsine) injection 1.25 mg (1.25 mg IntraVENous Given 06/07/23 0051) ondansetron ODT (Zofran-ODT) disintegrating tablet 4 mg (has no administration in time range) polyethylene glycol (PEG) 3350 (Miralax) packet 17 g (has no administration in time range) pantoprazole (ProtoNix) EC tablet 40 mg (40 mg Oral Given 06/07/23 0632) acetaminophen (Tylenol) tablet 650 mg (has no administration in time range) Or acetaminophen (Tylenol) suppository 650 mg (has no administration in time range) sodium chloride 0.9 % infusion (125 mL/hr IntraVENous New Bag 06/07/23 0851) venlafaxine XR (Effexor XR) 24 hr capsule 225 mg (225 mg Oral Given 06/07/23 1154) nicotine (Nicoderm, Step 1) 21 MG/24HR patch 1 patch (1 patch TransDERmal Medication Applied ) sodium chloride 0.9 % bolus 1,000 mL (0 mL IntraVENous Stopped 06/06/232137) prochlorperazine (Compazine) injection 10 mg (10 mg IntraVENous Given 06/06/231907) diphenhydrAMINE (BENADryl) injection 50 mg (50 mg IntraVENous Given 06/06/232106) iopamidol (Isovue-370) 76 % injection 100 mL (75 mL IntraVENous Given 06/06/232148) sodium chloride 0.9 % bolus 1,000 mL (0 mL IntraVENous Stopped 06/07/23 0030) sodium chloride 0.9 % bolus 1,000 mL (0 mL IntraVENous Stopped 06/07/23 0148) Diagnoses as of 06/07/23 1856 Nausea and vomiting, unspecified vomiting type Abdominal pain, unspecified abdominal location Leukocytosis, unspecified type Evaluated for his generalized abdominal pain with nausea, vomiting, diarrhea. Treated symptomatically with intravenous. Compazine, diphenhydramine, fluids. Patient redosed with fluids and droperidol.Request consistent with a slight leukocytosis. Screening troponin normal. Lipase normal. Normal hepatic function. CT abdomen obtained negative for acute findings. I personally evaluated Mayito Forbes and made/approved the management plan and take responsibilityfor the patient management. This will serve as my Supervisory note and shared attestation. I did perform a substantive portion of the visit including all aspects of the Medical Decision Making. Diagnostics interpreted by me: EKG; see my interpretation elsewhere in the chart All diagnostic, treatment, and disposition decisions were made by myself in conjunction with the MARYELLEN. For all further details of the patient's emergency department visit, please see their documentation. PROCEDURES: Unless otherwise noted below, none Procedures FINAL IMPRESSION 1. Nausea and vomiting, unspecified vomiting type 2. Abdominal pain, unspecified abdominal location 3. Leukocytosis, unspecified type DISPOSITION Observation 06/07/2023 12:52:58 AM PATIENT REFERRED TO: [facility] [address] [address] Schedule an appointment as soon as possible for a visit in 1 week(s) DISCHARGE MEDICATIONS: Discharge Medication List as of 06/07/2023 5:26 PM START taking these medications Details ondansetron (Zofran) 4 MG tablet Take 1 tablet (4 mg) by mouth every 8 hours as needed for nausea or vomiting for up to 7 days., Starting 06/07/2023, Until Tue06/14/2023 at 2359, Normal (Comment: Please note this report has been produced using speech recognition software and may contain errors related to that system including errors in grammar, punctuation, and spelling, as well as words and phrases that may be inappropriate. If there are any questions or concerns please feel freeto contact the dictating provider for clarification.) James Neil MD (electronically signed) Emergency Medicine Provider James Neil MD 06/07/23 [address] Work Phone: [phone] Physician Emergency department Note* FLORIDA Elliott CNP - 06/06/2023 6:23 PM EST EMERGENCY DEPARTMENT ENCOUNTER Pt Name: Mayito Forbes Birthdate 1985 Date of evaluation: 06/06/2023 ED Provider: FLORIDA Elliott CNP EDcare was supervised by Dr. James Neil who independently examined and evaluated the patient. Please see their attestation note for further details. CHIEF COMPLAINT Chief Complaint Patient presents with Vomiting Pt presents to ED with c/o vomiting and diarrhea since 0100 today. Also c/o generalized abdominal pain HISTORY OF PRESENT ILLNESS (Location/Symptom, Timing/Onset, Context/Setting, Quality, Duration, Modifying Factors, Severity) Note limiting factors. I wore appropriate PPE for the entirety of this encounter. History provided by: Patient and friend (girl friend) captain room service used: No Mayito Forbes is a 37 y.o. male with past medical history for opiate abuse, intravenous drug use and marijuana use presents to the emergency department with complaints of nausea, vomiting, diarrhea and abdominal pain. Patient's girlfriend states that symptoms started at about 1 AM last night. Patient describes abdominal pain as aching and constant. Abdominal pain is worsened by touch. He rates abdominal pain as 7/10. Patient states that he used marijuana 2 days ago. He denies alcohol use, fever, chills or dysuria. Nursing Notes were reviewed. Limitations to history: None Outside historians: None REVIEW OF SYSTEMS Review of Systems Constitutional: Negative for chills and fever. Gastrointestinal: Positive for abdominal pain, diarrhea, nausea and vomiting. Genitourinary: Negative for dysuria. All other systems reviewed and are negative. Pertinent positives and negatives as per HPI. PAST MEDICAL HISTORY History reviewed. No pertinent past medical history. SURGICAL HISTORY History reviewed. No pertinent surgical history. CURRENT MEDICATIONS Previous Medications ACETAMINOPHEN (TYLENOL) 500 MG TABLET BUPRENORPHINE-NALOXONE (SUBOXONE) 2-0.5 MG PER SUBLINGUAL FILM CLONIDINE (CATAPRES) 0.1 MG TABLET DICYCLOMINE (BENTYL) 10 MG CAPSULE DOXYCYCLINE (MONODOX) 100 MG CAPSULE GABAPENTIN (NEURONTIN) 300 MG CAPSULE HYDROXYZINE PAMOATE (VISTARIL) 25 MG CAPSULE IBUPROFEN 400 MG TABLET LOPERAMIDE (IMODIUM) 2 MG CAPSULE NALOXONE (NARCAN) 4 MG/0.1 ML NASAL SPRAY NICOTINE (NICODERM, STEP 2) 14 MG/24HR PATCH ONDANSETRON (ZOFRAN) 4 MG TABLET PANTOPRAZOLE (PROTONIX) 40 MG EC TABLET PENICILLIN V POTASSIUM (VEETID) 500 MG TABLET PREDNISONE (DELTASONE) 20 MG TABLET TRAZODONE (DESYREL) 50 MG TABLET VENLAFAXINE XR (EFFEXOR XR) 150 MG 24 HR CAPSULE VIVITROL INJECTION ALLERGIES Patient has no known allergies. FAMILY HISTORY No family history on file. SOCIAL HISTORY Social History Socioeconomic History Marital status: Single Tobacco Use Smoking status: Every Day Packs/day: 1 Types: Cigarettes Vaping Use Vaping Use: Never used Substance and Sexual Activity Alcohol use: Not Currently Drug use: Yes Types: Methamphetamines SCREENINGS PHYSICAL EXAM ED Triage Vitals [06/06/23 1833] Temp Heart Rate Resp BP 36.7 C (98.1 F) 102 18 (!) 139/101 SpO2 Temp Source Heart Rate Source Patient Position 98 % Temporal Monitor -- BP Location FiO2 (%) -- -- Physical Exam Vitals and nursing note reviewed. Cardiovascular: Rate and Rhythm: Normal rate. Pulmonary: Effort: Pulmonary effort is normal. Abdominal: General: Bowel sounds are normal. Palpations: Abdomen is soft. Tenderness: There is abdominal tenderness in the right lower quadrant and left lower quadrant. There is guarding. There is no right CVA tenderness or left CVA tenderness. Neurological: Mental Status: He is alert and oriented to person, place, and time. DIAGNOSTIC RESULTS RADIOLOGY (Per Emergency Physician): Interpretation per the Radiologist below, if available at the time of this note: CT abdomen pelvis w contrast Final Result 1. No acute findings. Report Dictated on Electronically Signed By: Joseph Kellogg MD Electronically Signed Date/Time: 06/06/2023 9:56 PM EST LABS: Labs Reviewed COMPREHENSIVE METABOLIC PANEL - Abnormal Result Value SODIUM 140 POTASSIUM 4.2 CHLORIDE 107 CARBON DIOXIDE 18 (*) ANION GAP 15 (*) UREA NITROGEN 14 CREATININE 0.77 GLUCOSE 132 (*) CALCIUM 9.9 AST (SGOT) 28 ALT 33 ALKALINE PHOSPHATASE 92 ALBUMIN 4.9 BILIRUBIN, TOTAL 0.6 TOTAL PROTEIN 8.8 (*) eGFR >90.0 LIPASE - Abnormal LIPASE 22 (*) CBC WITH AUTO DIFFERENTIAL - Abnormal Auto WBC 13.6 (*) RBC 6.06 (*) Hemoglobin 18.8 (*) Hematocrit 53.9 (*) MCV 89.0 MCH 31.1 MCHC 34.9 RDW 13.1 Platelets 366 MPV 7.4 nRBC 0.4 Neutrophils Relative 94.4 (*) Lymphocytes Relative 2.6 (*) Monocytes Relative 2.9 Eosinophils Relative 0.0 (*) Basophils Relative 0.1 Neutrophils Absolute 12.9 (*) Lymphocytes Absolute 0.4 (*) Monocytes Absolute 0.4 Eosinophils Absolute 0.0 Basophils Absolute 0.0 SARS-COV-2, FLU A/B, AND RSV COMBO - Normal SARS-CoV-2 Not Detected Respiratory Syncytial Virus Not Detected Influenza A Not Detected Influenza B Not Detected Narrative: Methodology: real-time, RT-PCR The SARS-CoV-2, Flu A/B, and RSV Combo assay is intended for in vitro diagnostic use under the FDA Emergency Use Authorization (EUA). This test has not been FDA cleared or approved. In compliance with this authorization, please visit www.fda.gov/media/153864/download or www.fda.gov/media/882432/download to access the applicable information sheets. TROPONIN I - Normal TROPONIN I <0.012 Narrative: Patients with high levels of Biotin oral intake (ie >5 mg/day) may have falsely decreased Troponin levels. MAGNESIUM - Normal MAGNESIUM 2.0 COMPLETE URINALYSIS WITH REFLEX TO CULTURE Narrative: The following orders were created for panel order Urinalysis complete with reflex to Culture. Procedure Abnormality Status --------- ------ Complete Urinalysis[[id number]] Please view results for these tests on the individual orders. COMPLETE URINALYSIS All other labs were within normal range or not returned as of this dictation. EMERGENCY DEPARTMENT COURSE and DIFFERENTIAL DIAGNOSIS/MDM: Vitals: Vitals: 06/06/23 2138 06/06/232 06/06/23 2322 06/07/23 0024 BP: 129/85 126/86 (!) 136/102 Pulse: 106 97 110 96 Resp: 17 14 17 Temp: 37.2 C (99 F) TempSrc: Oral SpO2: 93% 93% 94% Weight: Medications droperidol (Inapsine) injection 1.25 mg (has no administration in time range) sodium chloride 0.9 % bolus 1,000 mL (has no administration in time range) sodium chloride 0.9 % bolus 1,000 mL (0 mL IntraVENous Stopped 06/06/232137) prochlorperazine (Compazine) injection 10 mg (10 mg IntraVENous Given 06/06/231907) diphenhydrAMINE (BENADryl) injection 50 mg (50 mg IntraVENous Given 06/06/232106) iopamidol (Isovue-370) 76 % injection 100 mL (75 mL IntraVENous Given 06/06/232148) sodium chloride 0.9 % bolus 1,000 mL (0 mL IntraVENous Stopped 06/07/2329) 37-year-old male presented to the ED with complaints of nausea, vomiting, diarrhea and abdominal pain. On exam, patient is alert and oriented x 3. He does not appear to be in acute distress. He is afebrile. No SIRS criteria noted. There is tenderness with palpation of the right lower abdominal quadrant and left lower abdominal quadrant with evidence of guarding. No CVA tenderness noted. Differentials include but are not limited to gastritis, gastroenteritis, appendicitis, diverticulosis, diverticulitis, cannabinoid hyperemesis syndrome, kidney stones and UTI. Workup included EKG, chest x-ray,CT abdomen/pelvis, CBC, CMP, lipase, magnesium level, troponin, COVID test, flu test, RSV test. Medi cations included Compazine, droperidol, Benadryl and fluid bolus. Result of CT abdomen/pelvis interpreted by me and confirmed by radiologist revealed no acute intra-abdominal process. Negative test results for COVID, flu and RSV. CBC revealed leukocytosis with WBC 13.6, H&H 18.8/53.9. Lipase 22. Negative troponin. Normal magnesium level at 2.0. CMP revealed normal kidney function, liver function and electrolytes. Chest x-ray is pending. Patient was updated with lab and imaging results. He continues to experience nausea after treatment. He was still tachycardic with rate in the 115's bolus. Decision was made to admit the patient to the hospital for observation. MDM elements: I discussed their care with Admitting team CDU team. Patient was accepted for admission for observation. Patient is in agreement with this plan. PROCEDURES: Unless otherwise noted below, none Procedures CRITICAL CARE TIME None FINAL IMPRESSION 1. Nausea and vomiting, unspecified vomiting type 2. Abdominal pain, unspecified abdominal location 3. Leukocytosis, unspecified type DISPOSITION Observation 06/07/2023 12:50:29 AM PATIENT REFERRED TO: No follow-up provider specified. DISCHARGE MEDICATIONS: New Prescriptions No medications on file (Comment: Please note this report has been produced using speech recognition software and may contain errors related to that system including errors in grammar, punctuation, and spelling, as well as words and phrases that may be inappropriate. If there are any questions or concerns please feel freeto contact the dictating provider for clarification.) FLORIDA Elliott CNP (electronically signed) Emergency Medicine Provider FLORIDA Elliott CNP 06/07/23 0059 [facility]12-30-2023 Emergency department Note* Parris Darling RN - 05/28/2023 8:[address] Knox discontinued the O2. Pt sats 93-94% RA. Dr. Knox states that she is comfortable with this. Will continue to monitor. Parris Darling RN 05/28/23 0851 [facility]12-30-2023 Emergency department Note* Parris Darling RN - 05/28/2023 8:[address] Knox discontinued the O2. Pt sats 93-94% RA. Dr. Knox states that she is comfortable with this. Will continue to monitor. Parris Darling RN 05/28/23 0851 * Parris Darling RN - 05/28/2023 6:50 AM EST Pt O2 is 89/[address] Knox, keep pt on 2L and re-eval at 0900 05/28 Parris Darling RN 05/28/23 0651 * Parris Darling RN - 05/28/2023 6:32 AM EST Pt reevaluated. Pt able to answer questions. A&O x3. Pt still seemingly sleepy but is willing to participate in care Parris Darling RN 05/28/23 0632 * Parris Darling RN - 05/28/2023 3:35 AM EST This nurse removed warming blanket from pt at this time. Axillary temperature 97.4F. Parris Darling RN 05/28/23 0336 * Parris Darling RN - 05/28/2023 3:33 AM EST Assessments/screenings not done at this time due to pt inability to answer at this time. Pt is resting. RR even and unlabored. Parris Darling RN 05/28/23 0334 * Fabiola Knox DO - 05/27/2023 11:55 PM EST EMERGENCY DEPARTMENT ENCOUNTER Pt Name: Mayito Forbes Birthdate 1985 Date of evaluation: 05/27/2023 ED Provider: Fabiola Knox DO CHIEF COMPLAINT No chief complaint on file. HISTORY OF PRESENT ILLNESS (Location/Symptom, Timing/Onset, Context/Setting, Quality, Duration, Modifying Factors, Severity) Note limiting factors. I wore appropriate PPE for the entirety of this encounter. HPI Mayito Forbes is a 37 y.o. male who presents to the emergency department presents from home for drug overdose. Found unresponsive and hypopneic in bathroom by significant other who called EMS. Respiratory rate 8 upon EMS arrival with pinpoint pupils. Noted to have drug paraphernalia surrounding him in the bathroom. Given 8 mg intranasal Narcan by police and additional 4 mg intranasal Narcan by EMS for total 12 mg intranasal Narcan. Depressed level of consciousness and hypopnea resolved and route with EMS. Continues to be confused. Per EMS, moving all extremities but no intelligible speech. Keeps repeating hush when asked any questions. Nursing Notes were reviewed. Limitations to history: Confused Outside historians: EMS REVIEW OF SYSTEMS Review of Systems Negative except per HPI PAST MEDICAL HISTORY No past medical history on file. SURGICAL HISTORY No past surgical history on file. CURRENT MEDICATIONS Previous Medications ACETAMINOPHEN (TYLENOL) 500 MG TABLET BUPRENORPHINE-NALOXONE (SUBOXONE) 2-0.5 MG PER SUBLINGUAL FILM CLONIDINE (CATAPRES) 0.1 MG TABLET DICYCLOMINE (BENTYL) 10 MG CAPSULE DOXYCYCLINE (MONODOX) 100 MG CAPSULE GABAPENTIN (NEURONTIN) 300 MG CAPSULE HYDROXYZINE PAMOATE (VISTARIL) 25 MG CAPSULE IBUPROFEN 400 MG TABLET LOPERAMIDE (IMODIUM) 2 MG CAPSULE NALOXONE (NARCAN) 4 MG/0.1 ML NASAL SPRAY NICOTINE (NICODERM, STEP 2) 14 MG/24HR PATCH ONDANSETRON (ZOFRAN) 4 MG TABLET PANTOPRAZOLE (PROTONIX) 40 MG EC TABLET PENICILLIN V POTASSIUM (VEETID) 500 MG TABLET PREDNISONE (DELTASONE) 20 MG TABLET TRAZODONE (DESYREL) 50 MG TABLET VENLAFAXINE XR (EFFEXOR XR) 150 MG 24 HR CAPSULE VIVITROL INJECTION ALLERGIES Patient has no known allergies. FAMILY HISTORY No family history on file. SOCIAL HISTORY Social History Socioeconomic History Marital status: Single Tobacco Use Smoking status: Every Day Packs/day: 1 Types: Cigarettes Substance and Sexual Activity Alcohol use: Not Currently Drug use: Not Currently SCREENINGS PHYSICAL EXAM ED Triage Vitals Temp Pulse Resp BP -- -- -- -- SpO2 Temp src Heart Rate Source Patient Position -- -- -- -- BP Location FiO2 (%) -- -- Physical Exam BP 110/76 Pulse 79 Temp 36.7 C (98.1 F) (Oral) Resp 13 SpO2 96% Constitutional: Moving all extremities, shivering, yawning, opens eyes to pain, repetitively sayinghush and not answering questions appropriately, not following commands Head: atraumatic Eyes: Pupils 1 mm and sluggishly reactive Neck: No midline step-off Lungs: CTABL, no wheezing, no rales Heart: RRR , no murmurs Neuro: Spontaneously moving all extremities but not following commands, not answering questions DIAGNOSTIC RESULTS RADIOLOGY (Per Emergency Physician): CT head without acute process identified Chest x-ray without aspiration or pulmonary edema Interpretation per the Radiologist below, if available at the time of this note: CT head wo IV contrast Final Result No acute intracranial abnormalities. Report Dictated on Electronically Signed By: Davie Perez MD Electronically Signed Date/Time: 05/28/2023 1:12 AM EST XR chest 1 view Final Result Low lung volumes with mild bronchitis and subtle groundglass opacities which could be due to atelectasis or viral infection. Report Dictated on Electronically Signed By: Davie Perez MD Electronically Signed Date/Time: 05/28/2023 1:00 AM EST LABS: Labs Reviewed CBC WITH AUTO DIFFERENTIAL - Abnormal Result Value Auto WBC 5.9 RBC 5.36 Hemoglobin 16.9 Hematocrit 47.9 MCV 89.3 MCH 31.6 MCHC 35.3 RDW 12.7 Platelets 291 MPV 6.9 (*) nRBC 0.2 Neutrophils Relative 64.6 Lymphocytes Relative 26.3 Monocytes Relative 7.0 Eosinophils Relative 1.6 Basophils Relative 0.5 Neutrophils Absolute 3.8 Lymphocytes Absolute 1.5 Monocytes Absolute 0.4 Eosinophils Absolute 0.1 Basophils Absolute 0.0 COMPREHENSIVE METABOLIC PANEL - Abnormal SODIUM 137 POTASSIUM 3.5 CHLORIDE 95 (*) CARBON DIOXIDE 27 ANION GAP 15 (*) UREA NITROGEN 9 CREATININE 0.98 GLUCOSE 220 (*) CALCIUM 9.6 AST (SGOT) 40 ALT 39 ALKALINE PHOSPHATASE 84 ALBUMIN 4.6 BILIRUBIN, TOTAL 0.7 TOTAL PROTEIN 7.8 eGFR >90.0 ACETAMINOPHEN LEVEL - Abnormal ACETAMINOPHEN <10.0 (*) CKMB SCREEN - Abnormal CK 323 (*) CKMB - Abnormal CKMB 5.5 (*) RELATIVE INDEX 1.7 POCT GLUCOSE METER UNSOLICITED RESULTS - Abnormal Glucose 242 (*) Narrative: Performed by: [facility], [address] [place] [id number] CLIA ID: [id number] ETHANOL - Normal ETHANOL IN SER/PLAS <0.010 Narrative: NOTE: This result is for medical treatment only. Analysis performed using non- forensic procedures. SALICYLATE - Normal SALICYLATES <1.0 DRUGS OF ABUSE AMPHETAMINE SCREEN Positive BARBITURATES SCREEN Negative BENZODIAZEPINE SCREEN Negative COCAINE METAB. SCREEN Negative METHADONE SCREEN Negative OPIATES SCREEN Negative OXYCODONE SCREEN Negative PHENCYCLIDINE SCREEN Negative Narrative: The expected value for all of the drugs listed above is Negative. The following drugs or drug groups have been screened for by Immunoassay at the following thresholds: Amphetamine class (1000 ng/mL) Barbiturates (200 ng/mL) Benzodiazepines (200 ng/mL) Cocaine (300 ng/mL) Methadone (300 ng/mL) Opiates (300 ng/mL) Oxycodone (100 ng/mL) PCP (25 ng/mL) NOTE: These results are for medical treatment only. Analysis performed using non-forensic procedures. POSITIVE results are NOT confirmed by a more specific alternative method unless requested. If confirmation is needed, request confirmation under separateorder. All other labs were within normal range or not returned as of this dictation. EMERGENCY DEPARTMENT COURSE and DIFFERENTIAL DIAGNOSIS/MDM: Vitals: Vitals: 05/28/23 0300 05/28/23 0325 05/28/23 0615 05/28/23 0630 BP: 114/68 114/68 108/70 110/76 BP Location: Left arm Patient Position: Lying Pulse: 79 80 78 79 Resp: 17 17 17 13 Temp: 36.3 C (97.4 F) 36.7 C (98.1 F) TempSrc: Axillary Oral SpO2: 96% 95% 93% 96% 37 y.o. male who presents to the emergency department presents from home for drug overdose. Found unresponsive and hypopneic in bathroom by significant other who called EMS. Respiratory rate 8 upon EMS arrival with pinpoint pupils. Noted to have drug paraphernalia surrounding him in the bathroom. Given 8 mg intranasal Narcan by police and additional 4 mg intranasal Narcan by EMS for total 12 mg intranasal Narcan. Depressed level of consciousness and hypopnea resolved and route with EMS. Continues to be confused. Per EMS, moving all extremities but no intelligible speech. Keeps repeating hush when asked any questions. Arrives shivering and yawning with spontaneous movement all extremities.Opens eyes to pain. Pupils 1 mm and sluggishly reactive. Not following commands. Not answering questions. Vital signs with hypothermia. [id number] glucose obtained and 243. Von hugger placed. Exam without signs of external trauma. Suspect polysubstance overdose. Given patient not at mentation baseline, labs including alcohol level, urine drug screen, Tylenol level, salicylate level, CT head and chest x-ray ordered. CT head without acute process identified as interpreted by myself and verified by radiologist. Chest x-ray without aspiration or noncardiogenic pulmonary edema. Labs significant for positive amphetamines. Bear hugger ultimately able to be removed. Patient with mild hypoxia, 88 to 90% while sleeping, necessitating 2 L nasal cannula. On reevaluation at 0645, patient awakens to voice and answers questions. Oriented x 3. Reports accidental overdose. While patient clinically sober, still noted to have mild hypoxia while sleeping, will continue to observe and discharge home if oxygen able to be weaned. Will discharge home with prescription for Narcan. ED Medications managed: Medications - No data to display Prescription drugs considered: Narcan Total critical care time today provided was at least 35 minutes. This excludes seperately billable procedure. Critical care time provided for opiate overdose, hypothermia, hypoxia that required closeevaluation and/or intervention with concern for patient decompensation. PROCEDURES: Unless otherwise noted below, none Procedures FINAL IMPRESSION 1. Opiate overdose, accidental or unintentional, initial encounter ([facility]) DISPOSITION PATIENT REFERRED TO: No follow-up provider specified. DISCHARGE MEDICATIONS: New Prescriptions No medications on file (Comment: Please note this report has been produced using speech recognition software and may contain errors related to that system including errors in grammar, punctuation, and spelling, as well as words and phrases that may be inappropriate. If there are any questions or concerns please feel freeto contact the dictating provider for clarification.) Fabiola Knox DO (electronically signed) Emergency Medicine Provider Fabiola Knox DO 05/28/23 0829 * Chuyita Denney RN - 05/27/2023 11:55 PM EST Pt presents to the ED via Ems as a possible overdose. Per EMS patient was found unresponsive in a bathroom with a needle next to him. PD administered 8 mg narcan IN. documented in this [facility]12-30-2023 Emergency department Note* Parris Darling RN - 05/28/2023 6:50 AM EST Pt O2 is 89/[address] Knox, keep pt on 2L and re-eval at 0900 05/28 Parris Darling RN 05/28/23 0651 [id number]* Parris Darling RN - 05/28/2023 6:32 AM EST Pt reevaluated. Pt able to answer questions. A&O x3. Pt still seemingly sleepy but is willing to participate in care Parris Darling RN 05/28/[address]30-2023 Emergency department Note* Parris Darling RN - 05/28/2023 3:35 AM EST This nurse removed warming blanket from pt at this time. Axillary temperature 97.4F. Parris Darling RN 05/28/[address]30-2023 Emergency department Note* Parris Darling RN - 05/28/2023 3:33 AM EST Assessments/screenings not done at this time due to pt inability to answer at this time. Pt is resting. RR even and unlabored. Parris Darling RN 05/28/23 0334 [id number] NoteNOTE: This result is for medical treatment only. Analysis performed using non-forensic procedures. [id number] Triage note* Chuyita Denney RN - 05/27/2023 11:55 PM EST Pt presents to the ED via Ems as a possible overdose. Per EMS patient was found unresponsive in a bathroom with a needle next to him. PD administered 8 mg narcan IN. [id number] Emergency department Note* Fabiola Knox DO - 05/27/2023 11:55 PM EST EMERGENCY DEPARTMENT ENCOUNTER Pt Name: Mayito Forbes Birthdate 1985 Date of evaluation: 05/27/2023 ED Provider: Fabiola Knox DO CHIEF COMPLAINT No chief complaint on file. HISTORY OF PRESENT ILLNESS (Location/Symptom, Timing/Onset, Context/Setting, Quality, Duration, Modifying Factors, Severity) Note limiting factors. I wore appropriate PPE for the entirety of this encounter. HPI Mayito Forbes is a 37 y.o. male who presents to the emergency department presents from home for drug overdose. Found unresponsive and hypopneic in bathroom by significant other who called EMS. Respiratory rate 8 upon EMS arrival with pinpoint pupils. Noted to have drug paraphernalia surrounding him in the bathroom. Given 8 mg intranasal Narcan by police and additional 4 mg intranasal Narcan by EMS for total 12 mg intranasal Narcan. Depressed level of consciousness and hypopnea resolved and route with EMS. Continues to be confused. Per EMS, moving all extremities but no intelligible speech. Keeps repeating hush when asked any questions. Nursing Notes were reviewed. Limitations to history: Confused Outside historians: EMS REVIEW OF SYSTEMS Review of Systems Negative except per HPI PAST MEDICAL HISTORY No past medical history on file. SURGICAL HISTORY No past surgical history on file. CURRENT MEDICATIONS Previous Medications ACETAMINOPHEN (TYLENOL) 500 MG TABLET BUPRENORPHINE-NALOXONE (SUBOXONE) 2-0.5 MG PER SUBLINGUAL FILM CLONIDINE (CATAPRES) 0.1 MG TABLET DICYCLOMINE (BENTYL) 10 MG CAPSULE DOXYCYCLINE (MONODOX) 100 MG CAPSULE GABAPENTIN (NEURONTIN) 300 MG CAPSULE HYDROXYZINE PAMOATE (VISTARIL) 25 MG CAPSULE IBUPROFEN 400 MG TABLET LOPERAMIDE (IMODIUM) 2 MG CAPSULE NALOXONE (NARCAN) 4 MG/0.1 ML NASAL SPRAY NICOTINE (NICODERM, STEP 2) 14 MG/24HR PATCH ONDANSETRON (ZOFRAN) 4 MG TABLET PANTOPRAZOLE (PROTONIX) 40 MG EC TABLET PENICILLIN V POTASSIUM (VEETID) 500 MG TABLET PREDNISONE (DELTASONE) 20 MG TABLET TRAZODONE (DESYREL) 50 MG TABLET VENLAFAXINE XR (EFFEXOR XR) 150 MG 24 HR CAPSULE VIVITROL INJECTION ALLERGIES Patient has no known allergies. FAMILY HISTORY No family history on file. SOCIAL HISTORY Social History Socioeconomic History Marital status: Single Tobacco Use Smoking status: Every Day Packs/day: 1 Types: Cigarettes Substance and Sexual Activity Alcohol use: Not Currently Drug use: Not Currently SCREENINGS PHYSICAL EXAM ED Triage Vitals Temp Pulse Resp BP -- -- -- -- SpO2 Temp src Heart Rate Source Patient Position -- -- -- -- BP Location FiO2 (%) -- -- Physical Exam BP 110/76 Pulse 79 Temp 36.7 C (98.1 F) (Oral) Resp 13 SpO2 96% Constitutional: Moving all extremities, shivering, yawning, opens eyes to pain, repetitively sayinghush and not answering questions appropriately, not following commands Head: atraumatic Eyes: Pupils 1 mm and sluggishly reactive Neck: No midline step-off Lungs: CTABL, no wheezing, no rales Heart: RRR , no murmurs Neuro: Spontaneously moving all extremities but not following commands, not answering questions DIAGNOSTIC RESULTS RADIOLOGY (Per Emergency Physician): CT head without acute process identified Chest x-ray without aspiration or pulmonary edema Interpretation per the Radiologist below, if available at the time of this note: CT head wo IV contrast Final Result No acute intracranial abnormalities. Report Dictated on Electronically Signed By: Davie Perez MD Electronically Signed Date/Time: 05/28/2023 1:12 AM EST XR chest 1 view Final Result Low lung volumes with mild bronchitis and subtle groundglass opacities which could be due to atelectasis or viral infection. Report Dictated on Electronically Signed By: Davie Perez MD Electronically Signed Date/Time: 05/28/2023 1:00 AM EST LABS: Labs Reviewed CBC WITH AUTO DIFFERENTIAL - Abnormal Result Value Auto WBC 5.9 RBC 5.36 Hemoglobin 16.9 Hematocrit 47.9 MCV 89.3 MCH 31.6 MCHC 35.3 RDW 12.7 Platelets 291 MPV 6.9 (*) nRBC 0.2 Neutrophils Relative 64.6 Lymphocytes Relative 26.3 Monocytes Relative 7.0 Eosinophils Relative 1.6 Basophils Relative 0.5 Neutrophils Absolute 3.8 Lymphocytes Absolute 1.5 Monocytes Absolute 0.4 Eosinophils Absolute 0.1 Basophils Absolute 0.0 COMPREHENSIVE METABOLIC PANEL - Abnormal SODIUM 137 POTASSIUM 3.5 CHLORIDE 95 (*) CARBON DIOXIDE 27 ANION GAP 15 (*) UREA NITROGEN 9 CREATININE 0.98 GLUCOSE 220 (*) CALCIUM 9.6 AST (SGOT) 40 ALT 39 ALKALINE PHOSPHATASE 84 ALBUMIN 4.6 BILIRUBIN, TOTAL 0.7 TOTAL PROTEIN 7.8 eGFR >90.0 ACETAMINOPHEN LEVEL - Abnormal ACETAMINOPHEN <10.0 (*) CKMB SCREEN - Abnormal CK 323 (*) CKMB - Abnormal CKMB 5.5 (*) RELATIVE INDEX 1.7 POCT GLUCOSE METER UNSOLICITED RESULTS - Abnormal Glucose 242 (*) Narrative: Performed by: [facility], [address] [place] [id number] CLIA ID: [id number] ETHANOL - Normal ETHANOL IN SER/PLAS <0.010 Narrative: NOTE: This result is for medical treatment only. Analysis performed using non- forensic procedures. SALICYLATE - Normal SALICYLATES <1.0 DRUGS OF ABUSE AMPHETAMINE SCREEN Positive BARBITURATES SCREEN Negative BENZODIAZEPINE SCREEN Negative COCAINE METAB. SCREEN Negative METHADONE SCREEN Negative OPIATES SCREEN Negative OXYCODONE SCREEN Negative PHENCYCLIDINE SCREEN Negative Narrative: The expected value for all of the drugs listed above is Negative. The following drugs or drug groups have been screened for by Immunoassay at the following thresholds: Amphetamine class (1000 ng/mL) Barbiturates (200 ng/mL) Benzodiazepines (200 ng/mL) Cocaine (300 ng/mL) Methadone (300 ng/mL) Opiates (300 ng/mL) Oxycodone (100 ng/mL) PCP (25 ng/mL) NOTE: These results are for medical treatment only. Analysis performed using non-forensic procedures. POSITIVE results are NOT confirmed by a more specific alternative method unless requested. If confirmation is needed, request confirmation under separateorder. All other labs were within normal range or not returned as of this dictation. EMERGENCY DEPARTMENT COURSE and DIFFERENTIAL DIAGNOSIS/MDM: Vitals: Vitals: 05/28/23 0300 05/28/23 0325 05/28/23 0615 05/28/23 0630 BP: 114/68 114/68 108/70 110/76 BP Location: Left arm Patient Position: Lying Pulse: 79 80 78 79 Resp: 17 17 17 13 Temp: 36.3 C (97.4 F) 36.7 C (98.1 F) TempSrc: Axillary Oral SpO2: 96% 95% 93% 96% 37 y.o. male who presents to the emergency department presents from home for drug overdose. Found unresponsive and hypopneic in bathroom by significant other who called EMS. Respiratory rate 8 upon EMS arrival with pinpoint pupils. Noted to have drug paraphernalia surrounding him in the bathroom. Given 8 mg intranasal Narcan by police and additional 4 mg intranasal Narcan by EMS for total 12 mg intranasal Narcan. Depressed level of consciousness and hypopnea resolved and route with EMS. Continues to be confused. Per EMS, moving all extremities but no intelligible speech. Keeps repeating hush when asked any questions. Arrives shivering and yawning with spontaneous movement all extremities.Opens eyes to pain. Pupils 1 mm and sluggishly reactive. Not following commands. Not answering questions. Vital signs with hypothermia. [id number] glucose obtained and 243. Von hugger placed. Exam without signs of external trauma. Suspect polysubstance overdose. Given patient not at mentation baseline, labs including alcohol level, urine drug screen, Tylenol level, salicylate level, CT head and chest x-ray ordered. CT head without acute process identified as interpreted by myself and verified by radiologist. Chest x-ray without aspiration or noncardiogenic pulmonary edema. Labs significant for positive amphetamines. Bear hugger ultimately able to be removed. Patient with mild hypoxia, 88 to 90% while sleeping, necessitating 2 L nasal cannula. On reevaluation at 0645, patient awakens to voice and answers questions. Oriented x 3. Reports accidental overdose. While patient clinically sober, still noted to have mild hypoxia while sleeping, will continue to observe and discharge home if oxygen able to be weaned. Will discharge home with prescription for Narcan. ED Medications managed: Medications - No data to display Prescription drugs considered: Narcan Total critical care time today provided was at least 35 minutes. This excludes seperately billable procedure. Critical care time provided for opiate overdose, hypothermia, hypoxia that required closeevaluation and/or intervention with concern for patient decompensation. PROCEDURES: Unless otherwise noted below, none Procedures FINAL IMPRESSION 1. Opiate overdose, accidental or unintentional, initial encounter ([facility]) DISPOSITION PATIENT REFERRED TO: No follow-up provider specified. DISCHARGE MEDICATIONS: New Prescriptions No medications on file (Comment: Please note this report has been produced using speech recognition software and may contain errors related to that system including errors in grammar, punctuation, and spelling, as well as words and phrases that may be inappropriate. If there are any questions or concerns please feel freeto contact the dictating provider for clarification.) Fabiola Knox DO (electronically signed) Emergency Medicine Provider Fabiola Knox DO 05/28/23 0829 [facility]10-10-2023 Note* ED Procedure Note - Alex Santiago MD - 03/08/2023 8:11 PM EDTAssociated Order(s): Incision and Drainage Procedure Incision and Drainage Performed by: Alex Santiago MD Authorized by: Alex Santiago MD Consent: Consent obtained: Verbal Consent given by: Patient Risks, benefits, and alternatives were discussed: yes Risks discussed: Bleeding Alternatives discussed: No treatment [place] protocol: Procedure explained and questions answered to patient or proxy's satisfaction: yes Relevant documents present and verified: yes Test results available : no Imaging studies available: no Required blood products, implants, devices, and special equipment available: no Site/side marked: yes Immediately prior to procedure, a time out was called: yes Patient identity confirmed: Verbally with patient Location: Type: External thrombosed hemorrhoid Size: 1 x 0.5 cm Location: rectum. Sedation: Sedation type: None Anesthesia: Anesthesia method: Local infiltration Local anesthetic: Lidocaine 1% WITH epi Procedure type: Complexity: Simple Procedure details: Ultrasound guidance: no Needle aspiration: no Incision types: Elliptical Incision depth: Dermal Wound management: Probed and deloculated Drainage: Bloody Drainage amount: Scant Wound treatment: Wound left open Packing materials: None Post-procedure details: Procedure completion: Tolerated Alex Santiago MD 03/08/232010 [facility]10-10-2023 Note* ED Procedure Note - Alex Santiago MD - 03/08/2023 8:11 PM EDTAssociated Order(s): Incision and Drainage Procedure Incision and Drainage Performed by: Alex Santiago MD Authorized by: Alex Santiago MD Consent: Consent obtained: Verbal Consent given by: Patient Risks, benefits, and alternatives were discussed: yes Risks discussed: Bleeding Alternatives discussed: No treatment [place] protocol: Procedure explained and questions answered to patient or proxy's satisfaction: yes Relevant documents present and verified: yes Test results available : no Imaging studies available: no Required blood products, implants, devices, and special equipment available: no Site/side marked: yes Immediately prior to procedure, a time out was called: yes Patient identity confirmed: Verbally with patient Location: Type: External thrombosed hemorrhoid Size: 1 x 0.5 cm Location: rectum. Sedation: Sedation type: None Anesthesia: Anesthesia method: Local infiltration Local anesthetic: Lidocaine 1% WITH epi Procedure type: Complexity: Simple Procedure details: Ultrasound guidance: no Needle aspiration: no Incision types: Elliptical Incision depth: Dermal Wound management: Probed and deloculated Drainage: Bloody Drainage amount: Scant Wound treatment: Wound left open Packing materials: None Post-procedure details: Procedure completion: Tolerated Alex Santiago MD 03/08/232010 [id number] M[facility]* ED Procedure Note - Alex Santiago MD - 03/08/2023 8:11 PM EDTAssociated Order(s): Incision and Drainage Procedure Incision and Drainage Performed by: Alex Santiago MD Authorized by: Alex Santiago MD Consent: Consent obtained: Verbal Consent given by: Patient Risks, benefits, and alternatives were discussed: yes Risks discussed: Bleeding Alternatives discussed: No treatment [place] protocol: Procedure explained and questions answered to patient or proxy's satisfaction: yes Relevant documents present and verified: yes Test results available : no Imaging studies available: no Required blood products, implants, devices, and special equipment available: no Site/side marked: yes Immediately prior to procedure, a time out was called: yes Patient identity confirmed: Verbally with patient Location: Type: External thrombosed hemorrhoid Size: 1 x 0.5 cm Location: rectum. Sedation: Sedation type: None Anesthesia: Anesthesia method: Local infiltration Local anesthetic: Lidocaine 1% WITH epi Procedure type: Complexity: Simple Procedure details: Ultrasound guidance: no Needle aspiration: no Incision types: Elliptical Incision depth: Dermal Wound management: Probed and deloculated Drainage: Bloody Drainage amount: Scant Wound treatment: Wound left open Packing materials: None Post-procedure details: Procedure completion: Tolerated Alex Santiago MD 03/08/232010 documented in this [facility]10-10-2023 Hospital Discharge instructions* Discharge Instructions* Alex Santiago MD - 03/08/2023 8:08 PM EDT Expect some rectal bleeding over the next 12 hours; Can use otc stool softeners for next 3 days * Attachments The following attachments cannot be sent through Care Everywhere. * Hemorrhoidectomy Discharge Instructions ([place]) documented in this [facility]10-10-2023 Emergency department Note* Alex Santiago MD - 03/08/2023 6:47 PM EDT EMERGENCY DEPARTMENT ENCOUNTER Pt Name: Mayito Forbes Birthdate 1985 Date of evaluation: 03/08/2023 ED Provider: Alex Santiago MD CHIEF COMPLAINT Chief Complaint Patient presents with Hemorrhoids HISTORY OF PRESENT ILLNESS (Location/Symptom, Timing/Onset, Context/Setting, Quality, Duration, Modifying Factors, Severity) Note limiting factors. I wore appropriate PPE for the entirety of this encounter. History provided by: Patient captain room service used: No Abdominal Pain Pain location: Rectum. Pain quality: aching Pain radiates to: Does not radiate Pain severity: Mild Onset quality: Gradual Duration: 3 days Timing: Intermittent Progression: Unchanged Chronicity: New Context: not alcohol use, not awakening from sleep, not diet changes, not eating, not laxative use,not medication withdrawal, not previous surgeries, not recent illness, not recent sexual activity, not recent travel, not retching, not sick contacts, not suspicious food intake and not trauma Relieved by: Nothing Worsened by: Nothing Ineffective treatments: None tried Associated symptoms: no anorexia, no belching, no chest pain, no chills, no constipation, no cough,no diarrhea, no dysuria, no fatigue, no fever, no flatus, no hematemesis, no hematochezia, no hematuria, no melena, no nausea, no shortness of breath, no sore throat and no vomiting Risk factors: no alcohol abuse, no aspirin use, not elderly, has not had multiple surgeries, no NSAID use, not obese and no recent hospitalization Mayito Forbes is a 37 y.o. who presents to the emergency department with chief complaint of Rectalpain Nursing Notes were reviewed. Limitations to history: None Outside historians: Significant other REVIEW OF SYSTEMS Review of Systems Constitutional: Negative for chills, fatigue and fever. HENT: Negative for sore throat. Respiratory: Negative for cough and shortness of breath. Cardiovascular: Negative for chest pain. Gastrointestinal: Positive for rectal pain. Negative for abdominal pain, anorexia, constipation, diarrhea, flatus, hematemesis, hematochezia, melena, nausea and vomiting. Genitourinary: Negative for dysuria and hematuria. All other systems reviewed and are negative. Pertinent positives and negatives as per HPI. PAST MEDICAL HISTORY History reviewed. No pertinent past medical history. SURGICAL HISTORY History reviewed. No pertinent surgical history. CURRENT MEDICATIONS Current Discharge Medication List CONTINUE these medications which have NOT CHANGED Details acetaminophen (Tylenol) 500 MG tablet buprenorphine-naloxone (Suboxone) 2-0.5 MG per sublingual film cloNIDine (Catapres) 0.1 MG tablet dicyclomine (Bentyl) 10 MG capsule doxycycline (Monodox) 100 MG capsule gabapentin (Neurontin) 300 MG capsule hydrOXYzine pamoate (Vistaril) 25 MG capsule ibuprofen 400 MG tablet loperamide (Imodium) 2 MG capsule naloxone (Narcan) 4 mg/0.1 mL nasal spray nicotine (Nicoderm, Step 2) 14 MG/24HR patch ondansetron (Zofran) 4 MG tablet pantoprazole (ProtoNix) 40 MG EC tablet penicillin v potassium (Veetid) 500 MG tablet predniSONE (Deltasone) 20 MG tablet traZODone (Desyrel) 50 MG tablet venlafaxine XR (Effexor XR) 150 MG 24 hr capsule Vivitrol injection ALLERGIES Patient has no known allergies. FAMILY HISTORY No family history on file. SOCIAL HISTORY Social History Socioeconomic History Marital status: Single Tobacco Use Smoking status: Every Day Packs/day: 1 Types: Cigarettes Substance and Sexual Activity Alcohol use: Not Currently Drug use: Not Currently SCREENINGS PHYSICAL EXAM ED Triage Vitals [03/08/23 1856] Temp Heart Rate Resp BP 37 C (98.6 F) 108 16 131/71 SpO2 Temp Source Heart Rate Source Patient Position 96 % Oral Monitor -- BP Location FiO2 (%) -- -- Physical Exam Vitals and nursing note reviewed. Exam conducted with a production checker present. Constitutional: General: He is not in acute distress. Appearance: Normal appearance. He is normal weight. He is not ill-appearing, toxic-appearing or diaphoretic. HENT: Head: Normocephalic and atraumatic. Right Ear: Tympanic membrane, ear canal and external ear normal. Left Ear: Tympanic membrane, ear canal and external ear normal. Nose: Nose normal. Mouth/Throat: Mouth: Mucous membranes are moist. Pharynx: Oropharynx is clear. No oropharyngeal exudate or posterior oropharyngeal erythema. Eyes: Extraocular Movements: Extraocular movements intact. Conjunctiva/sclera: Conjunctivae normal. Pupils: Pupils are equal, round, and reactive to light. Cardiovascular: Rate and Rhythm: Normal rate and regular rhythm. Pulses: Normal pulses. Heart sounds: Normal heart sounds. Pulmonary: Effort: Pulmonary effort is normal. Breath sounds: Normal breath sounds. Abdominal: General: Abdomen is flat. Bowel sounds are normal. Palpations: Abdomen is soft. Genitourinary: Comments: Thrombosed external hemorrhoid Musculoskeletal: General: Normal range of motion. Cervical back: Normal range of motion and neck supple. Skin: General: Skin is warm. Capillary Refill: Capillary refill takes less than 2 seconds. Neurological: General: No focal deficit present. Mental Status: He is alert and oriented to person, place, and time. Mental status is at baseline. Cranial Nerves: No cranial nerve deficit. Sensory: No sensory deficit. Motor: No weakness. Coordination: Coordination normal. Gait: Gait normal. Deep Tendon Reflexes: Reflexes normal. Psychiatric: Mood and Affect: Mood normal. Behavior: Behavior normal. Thought Content: Thought content normal. Judgment: Judgment normal. DIAGNOSTIC RESULTS Procedures/EKG: EKG was reviewed by myself. Physician EKG interpretation can be found in [facility] RADIOLOGY (Per Emergency Physician): Interpretation per the Radiologist below, if available at the time of this note: No orders to display ED BEDSIDE ULTRASOUND: Performed by ED Physician - none LABS: Labs Reviewed - No data to display All other labs were within normal range or not returned as of this dictation. EMERGENCY DEPARTMENT COURSE and DIFFERENTIAL DIAGNOSIS/MDM: Vitals: Vitals: 03/08/23 1856 BP: 131/71 Pulse: 108 Resp: 16 Temp: 37 C (98.6 F) TempSrc: Oral SpO2: 96% Weight: 86.2 kg (190 lb) Height: 1.753 m (5' 9) 37 year old male came tyo the Ed for rectal pain x 3 days. Patient notes the pain mainly hurts withdefecation. He thinks he may have a hemorrhoid. No abdominal pain was noted during this time. On exam, he was nontoxic in appearance. Lugs were clear. No focal abdominal tenderness was noted. Rectal e xam revealed a thrombosed hemorrhoid. No pedal edema was noted . Patient did have a thrombosed external hemorrhoid. After an elliptical incision was made, clots were removed. Patient felt much better. The wound was dressed. Patient was discharged. [facility] rectal surgery referral was given Diagnoses as of 03/08/232008 Thrombosed external hemorrhoid Medications lidocaine (Xylocaine) 1 % injection 10 mL (10 mL Infiltration Given by Other 03/08/23 193) REVAL: CRITICAL CARE TIME None CONSULTS: None PROCEDURES: Unless otherwise noted below, none Procedures FINAL IMPRESSION 1. Thrombosed external hemorrhoid DISPOSITION Discharge 03/08/2023 08:07:44 PM PATIENT REFERRED TO: [facility] [address] [place] [phone] Call in 2 days DISCHARGE MEDICATIONS: Current Discharge Medication List (Comment: Please note this report has been produced using speech recognition software and may contain errors related to that system including errors in grammar, punctuation, and spelling, as well as words and phrases that may be inappropriate. If there are any questions or concerns please feel freeto contact the dictating provider for clarification.) Alex Santiago MD (electronically signed) Emergency Medicine Provider Alex Santiago MD 03/08/232009 * Shakira Diehl RN - 03/08/2023 6:47 PM EDT Patient to room 3 with c/o a hemorrhoid that is inflamed since Tuesday. Patient has been using rectal suppositories and cream for pain relief. V/S obtained, call light within reach. documented in this [facility]10-10-2023 Emergency department Triage note* Shakira Diehl RN - 03/08/2023 6:47 PM EDT Patient to room 3 with c/o a hemorrhoid that is inflamed since Tuesday. Patient has been using rectal suppositories and cream for pain relief. V/S obtained, call light within reach. [id number] Emergency [facility] Note* Alex Santiago MD - 03/08/2023 6:47 PM EDT EMERGENCY DEPARTMENT ENCOUNTER Pt Name: Mayito Forbes Birthdate 1985 Date of evaluation: 03/08/2023 ED Provider: Alex Santiago MD CHIEF COMPLAINT Chief Complaint Patient presents with Hemorrhoids HISTORY OF PRESENT ILLNESS (Location/Symptom, Timing/Onset, Context/Setting, Quality, Duration, Modifying Factors, Severity) Note limiting factors. I wore appropriate PPE for the entirety of this encounter. History provided by: Patient captain room service used: No Abdominal Pain Pain location: Rectum. Pain quality: aching Pain radiates to: Does not radiate Pain severity: Mild Onset quality: Gradual Duration: 3 days Timing: Intermittent Progression: Unchanged Chronicity: New Context: not alcohol use, not awakening from sleep, not diet changes, not eating, not laxative use,not medication withdrawal, not previous surgeries, not recent illness, not recent sexual activity, not recent travel, not retching, not sick contacts, not suspicious food intake and not trauma Relieved by: Nothing Worsened by: Nothing Ineffective treatments: None tried Associated symptoms: no anorexia, no belching, no chest pain, no chills, no constipation, no cough,no diarrhea, no dysuria, no fatigue, no fever, no flatus, no hematemesis, no hematochezia, no hematuria, no melena, no nausea, no shortness of breath, no sore throat and no vomiting Risk factors: no alcohol abuse, no aspirin use, not elderly, has not had multiple surgeries, no NSAID use, not obese and no recent hospitalization Mayito Forbes is a 37 y.o. who presents to the emergency department with chief complaint of Rectalpain Nursing Notes were reviewed. Limitations to history: None Outside historians: Significant other REVIEW OF SYSTEMS Review of Systems Constitutional: Negative for chills, fatigue and fever. HENT: Negative for sore throat. Respiratory: Negative for cough and shortness of breath. Cardiovascular: Negative for chest pain. Gastrointestinal: Positive for rectal pain. Negative for abdominal pain, anorexia, constipation, diarrhea, flatus, hematemesis, hematochezia, melena, nausea and vomiting. Genitourinary: Negative for dysuria and hematuria. All other systems reviewed and are negative. Pertinent positives and negatives as per HPI. PAST MEDICAL HISTORY History reviewed. No pertinent past medical history. SURGICAL HISTORY History reviewed. No pertinent surgical history. CURRENT MEDICATIONS Current Discharge Medication List CONTINUE these medications which have NOT CHANGED Details acetaminophen (Tylenol) 500 MG tablet buprenorphine-naloxone (Suboxone) 2-0.5 MG per sublingual film cloNIDine (Catapres) 0.1 MG tablet dicyclomine (Bentyl) 10 MG capsule doxycycline (Monodox) 100 MG capsule gabapentin (Neurontin) 300 MG capsule hydrOXYzine pamoate (Vistaril) 25 MG capsule ibuprofen 400 MG tablet loperamide (Imodium) 2 MG capsule naloxone (Narcan) 4 mg/0.1 mL nasal spray nicotine (Nicoderm, Step 2) 14 MG/24HR patch ondansetron (Zofran) 4 MG tablet pantoprazole (ProtoNix) 40 MG EC tablet penicillin v potassium (Veetid) 500 MG tablet predniSONE (Deltasone) 20 MG tablet traZODone (Desyrel) 50 MG tablet venlafaxine XR (Effexor XR) 150 MG 24 hr capsule Vivitrol injection ALLERGIES Patient has no known allergies. FAMILY HISTORY No family history on file. SOCIAL HISTORY Social History Socioeconomic History Marital status: Single Tobacco Use Smoking status: Every Day Packs/day: 1 Types: Cigarettes Substance and Sexual Activity Alcohol use: Not Currently Drug use: Not Currently SCREENINGS PHYSICAL EXAM ED Triage Vitals [03/08/23 1856] Temp Heart Rate Resp BP 37 C (98.6 F) 108 16 131/71 SpO2 Temp Source Heart Rate Source Patient Position 96 % Oral Monitor -- BP Location FiO2 (%) -- -- Physical Exam Vitals and nursing note reviewed. Exam conducted with a production checker present. Constitutional: General: He is not in acute distress. Appearance: Normal appearance. He is normal weight. He is not ill-appearing, toxic-appearing or diaphoretic. HENT: Head: Normocephalic and atraumatic. Right Ear: Tympanic membrane, ear canal and external ear normal. Left Ear: Tympanic membrane, ear canal and external ear normal. Nose: Nose normal. Mouth/Throat: Mouth: Mucous membranes are moist. Pharynx: Oropharynx is clear. No oropharyngeal exudate or posterior oropharyngeal erythema. Eyes: Extraocular Movements: Extraocular movements intact. Conjunctiva/sclera: Conjunctivae normal. Pupils: Pupils are equal, round, and reactive to light. Cardiovascular: Rate and Rhythm: Normal rate and regular rhythm. Pulses: Normal pulses. Heart sounds: Normal heart sounds. Pulmonary: Effort: Pulmonary effort is normal. Breath sounds: Normal breath sounds. Abdominal: General: Abdomen is flat. Bowel sounds are normal. Palpations: Abdomen is soft. Genitourinary: Comments: Thrombosed external hemorrhoid Musculoskeletal: General: Normal range of motion. Cervical back: Normal range of motion and neck supple. Skin: General: Skin is warm. Capillary Refill: Capillary refill takes less than 2 seconds. Neurological: General: No focal deficit present. Mental Status: He is alert and oriented to person, place, and time. Mental status is at baseline. Cranial Nerves: No cranial nerve deficit. Sensory: No sensory deficit. Motor: No weakness. Coordination: Coordination normal. Gait: Gait normal. Deep Tendon Reflexes: Reflexes normal. Psychiatric: Mood and Affect: Mood normal. Behavior: Behavior normal. Thought Content: Thought content normal. Judgment: Judgment normal. DIAGNOSTIC RESULTS Procedures/EKG: EKG was reviewed by myself. Physician EKG interpretation can be found in [facility] RADIOLOGY (Per Emergency Physician): Interpretation per the Radiologist below, if available at the time of this note: No orders to display ED BEDSIDE ULTRASOUND: Performed by ED Physician - none LABS: Labs Reviewed - No data to display All other labs were within normal range or not returned as of this dictation. EMERGENCY DEPARTMENT COURSE and DIFFERENTIAL DIAGNOSIS/MDM: Vitals: Vitals: 03/08/23 1856 BP: 131/71 Pulse: 108 Resp: 16 Temp: 37 C (98.6 F) TempSrc: Oral SpO2: 96% Weight: 86.2 kg (190 lb) Height: 1.753 m (5' 9) 37 year old male came tyo the Ed for rectal pain x 3 days. Patient notes the pain mainly hurts withdefecation. He thinks he may have a hemorrhoid. No abdominal pain was noted during this time. On exam, he was nontoxic in appearance. Lugs were clear. No focal abdominal tenderness was noted. Rectal e xam revealed a thrombosed hemorrhoid. No pedal edema was noted . Patient did have a thrombosed external hemorrhoid. After an elliptical incision was made, clots were removed. Patient felt much better. The wound was dressed. Patient was discharged. [place] rectal surgery referral was given Diagnoses as of 03/08/232008 Thrombosed external hemorrhoid Medications lidocaine (Xylocaine) 1 % injection 10 mL (10 mL Infiltration Given by Other 03/08/23 193) REVAL: CRITICAL CARE TIME None CONSULTS: None PROCEDURES: Unless otherwise noted below, none Procedures FINAL IMPRESSION 1. Thrombosed external hemorrhoid DISPOSITION Discharge 03/08/2023 08:07:44 PM PATIENT REFERRED TO: [facility] [address] [place] [phone] Call in 2 days DISCHARGE MEDICATIONS: Current Discharge Medication List (Comment: Please note this report has been produced using speech recognition software and may contain errors related to that system including errors in grammar, punctuation, and spelling, as well as words and phrases that may be inappropriate. If there are any questions or concerns please feel freeto contact the dictating provider for clarification.) Alex Santiago MD (electronically signed) Emergency Medicine Provider Alex Santiago MD 03/08/232009 [id number]* ED Procedure Note - Alex Santiago MD - 02/23/2023 5:53 PM EDTAssociated Order(s): Foreign Body Removal - Embedded Procedure Foreign Body Removal - Embedded Performed by: Alex Santiago MD Authorized by: Alex Santiago MD Consent: Consent obtained: Verbal Consent given by: Patient Risks, benefits, and alternatives were discussed: yes Risks discussed: Bleeding and infection Alternatives discussed: No treatment and alternative treatment [place] protocol: Procedure explained and questions answered to patient or proxy's satisfaction: yes Relevant documents present and verified: yes Test results available: yes Required blood products, implants, devices, and special equipment available: no Site/side marked: yes Immediately prior to procedure, a time out was called: yes Patient identity confirmed: Verbally with patient Location: Location: Right ring finger. Depth: Intradermal Tendon involvement: None Pre-procedure details: Imaging: X-ray Neurovascular status: intact Preparation: Patient was prepped and draped in usual sterile fashion Anesthesia: Anesthesia method: Local infiltration Local anesthetic: Lidocaine 1% w/o epi Procedure type: Procedure complexity: Simple Procedure details: Dissection of underlying tissues: no Bloodless field: no Removal mechanism: Hemostat Foreign bodies recovered: 1 Intact foreign body removal: yes Post-procedure details: Neurovascular status: intact Confirmation: No additional foreign bodies on visualization Skin closure: None Dressing: Open (no dressing) Procedure completion: Tolerated Alex Santiago MD 02/23/231752 [id number] Miscellaneous Notes* ED Procedure Note - Alex Santiago MD - 02/23/2023 5:53 PM EDTAssociated Order(s): Foreign Body Removal - Embedded Procedure Foreign Body Removal - Embedded Performed by: Alex Santiago MD Authorized by: Alex Santiago MD Consent: Consent obtained: Verbal Consent given by: Patient Risks, benefits, and alternatives were discussed: yes Risks discussed: Bleeding and infection Alternatives discussed: No treatment and alternative treatment [place] protocol: Procedure explained and questions answered to patient or proxy's satisfaction: yes Relevant documents present and verified: yes Test results available: yes Required blood products, implants, devices, and special equipment available: no Site/side marked: yes Immediately prior to procedure, a time out was called: yes Patient identity confirmed: Verbally with patient Location: Location: Right ring finger. Depth: Intradermal Tendon involvement: None Pre-procedure details: Imaging: X-ray Neurovascular status: intact Preparation: Patient was prepped and draped in usual sterile fashion Anesthesia: Anesthesia method: Local infiltration Local anesthetic: Lidocaine 1% w/o epi Procedure type: Procedure complexity: Simple Procedure details: Dissection of underlying tissues: no Bloodless field: no Removal mechanism: Hemostat Foreign bodies recovered: 1 Intact foreign body removal: yes Post-procedure details: Neurovascular status: intact Confirmation: No additional foreign bodies on visualization Skin closure: None Dressing: Open (no dressing) Procedure completion: Tolerated Alex Santiago MD 02/23/[address] [facility]09-27-2023 Hospital Discharge instructions* Discharge Instructions* Alex Santiago MD - 02/23/2023 5:50 PM EDT Always a change for infection * Attachments The following attachments cannot be sent through Care Everywhere. * Cellulitis (Skin Infection) Discharge Instructions, Adult ([place]) documented in this [facility]09-27-2023 Emergency department Note* Alex Santiago MD - 02/23/2023 5:16 PM EDT EMERGENCY DEPARTMENT ENCOUNTER Pt Name: Mayito Forbes Birthdate 1985 Date of evaluation: 02/23/2023 ED Provider: Alex Santiago MD CHIEF COMPLAINT No chief complaint on file. HISTORY OF PRESENT ILLNESS (Location/Symptom, Timing/Onset, Context/Setting, Quality, Duration, Modifying Factors, Severity) Note limiting factors. I wore appropriate PPE for the entirety of this encounter. History provided by: Patient captain room service used: No Foreign Body Intake: Right ring finger. Suspected object: fish hook. Pain quality: Aching Pain severity: Mild Duration: 3 hours Timing: Constant Progression: Unchanged Chronicity: New Worsened by: Nothing Ineffective treatments: None tried Associated symptoms: no abdominal pain, no choking, no congestion, no cough, no cyanosis, no difficulty breathing, no drooling, no ear discharge, no ear pain, no hearing loss, no nasal discharge, no nausea, no nosebleeds, no rectal bleeding, no rectal pain, no rhinorrhea, no sore throat, no troubleswallowing and no vomiting Risk factors: no developmental delay, no hx of esophageal strictures, no mental health problem, no prior similar events and no prior surgery to area Mayito Forbes is a 37 y.o. who presents to the emergency department with chief complaint of fish hook stuck in right finger Nursing Notes were reviewed. Limitations to history: None Outside historians: Significant other REVIEW OF SYSTEMS Review of Systems HENT: Negative for congestion, drooling, ear discharge, ear pain, hearing loss, nosebleeds, rhinorrhea, sore throat and trouble swallowing. Respiratory: Negative for cough and choking. Cardiovascular: Negative for cyanosis. Gastrointestinal: Negative for abdominal pain, nausea, rectal pain and vomiting. Skin: Positive for wound. Wound/foreign body of right ring finger All other systems reviewed and are negative. Pertinent positives and negatives as per HPI. PAST MEDICAL HISTORY History reviewed. No pertinent past medical history. SURGICAL HISTORY History reviewed. No pertinent surgical history. CURRENT MEDICATIONS Previous Medications ACETAMINOPHEN (TYLENOL) 500 MG TABLET BUPRENORPHINE-NALOXONE (SUBOXONE) 2-0.5 MG PER SUBLINGUAL FILM CLONIDINE (CATAPRES) 0.1 MG TABLET DICYCLOMINE (BENTYL) 10 MG CAPSULE DOXYCYCLINE (MONODOX) 100 MG CAPSULE GABAPENTIN (NEURONTIN) 300 MG CAPSULE HYDROXYZINE PAMOATE (VISTARIL) 25 MG CAPSULE IBUPROFEN 400 MG TABLET LOPERAMIDE (IMODIUM) 2 MG CAPSULE NALOXONE (NARCAN) 4 MG/0.1 ML NASAL SPRAY NICOTINE (NICODERM, STEP 2) 14 MG/24HR PATCH ONDANSETRON (ZOFRAN) 4 MG TABLET PANTOPRAZOLE (PROTONIX) 40 MG EC TABLET PENICILLIN V POTASSIUM (VEETID) 500 MG TABLET PREDNISONE (DELTASONE) 20 MG TABLET TRAZODONE (DESYREL) 50 MG TABLET VENLAFAXINE XR (EFFEXOR XR) 150 MG 24 HR CAPSULE VIVITROL INJECTION ALLERGIES Patient has no known allergies. FAMILY HISTORY No family history on file. SOCIAL HISTORY Social History Socioeconomic History Marital status: Single Tobacco Use Smoking status: Unknown SCREENINGS PHYSICAL EXAM ED Triage Vitals Temp Pulse Resp BP -- -- -- -- SpO2 Temp src Heart Rate Source Patient Position -- -- -- -- BP Location FiO2 (%) -- -- Physical Exam Vitals and nursing note reviewed. Exam conducted with a production checker present. Constitutional: General: He is not in acute distress. Appearance: Normal appearance. He is normal weight. He is not ill-appearing, toxic-appearing or diaphoretic. HENT: Head: Normocephalic and atraumatic. Right Ear: Tympanic membrane, ear canal and external ear normal. Left Ear: Tympanic membrane, ear canal and external ear normal. Nose: Nose normal. Mouth/Throat: Mouth: Mucous membranes are moist. Pharynx: Oropharynx is clear. No oropharyngeal exudate or posterior oropharyngeal erythema. Eyes: Extraocular Movements: Extraocular movements intact. Conjunctiva/sclera: Conjunctivae normal. Pupils: Pupils are equal, round, and reactive to light. Cardiovascular: Rate and Rhythm: Normal rate and regular rhythm. Pulses: Normal pulses. Heart sounds: Normal heart sounds. Pulmonary: Effort: Pulmonary effort is normal. No respiratory distress. Breath sounds: Normal breath sounds. No stridor. No wheezing, rhonchi or rales. Chest: Chest wall: No tenderness. Abdominal: General: Abdomen is flat. Bowel sounds are normal. Palpations: Abdomen is soft. Musculoskeletal: General: No swelling, tenderness, deformity or signs of injury. Normal range of motion. Cervical back: Normal range of motion and neck supple. Right lower leg: No edema. Left lower leg: No edema. Skin: General: Skin is warm. Capillary Refill: Capillary refill takes less than 2 seconds. Comments: Foreign body noted in skin of right ring finger Neurological: General: No focal deficit present. Mental Status: He is alert and oriented to person, place, and time. Mental status is at baseline. Cranial Nerves: No cranial nerve deficit. Sensory: No sensory deficit. Motor: No weakness. Coordination: Coordination normal. Gait: Gait normal. Deep Tendon Reflexes: Reflexes normal. Psychiatric: Mood and Affect: Mood normal. Behavior: Behavior normal. Thought Content: Thought content normal. Judgment: Judgment normal. DIAGNOSTIC RESULTS Procedures/EKG: EKG was reviewed by myself. Physician EKG interpretation can be found in [facility] RADIOLOGY (Per Emergency Physician): Interpretation per the Radiologist below, if available at the time of this note: XR hand 3+ views right (Results Pending) ED BEDSIDE ULTRASOUND: Performed by ED Physician - none LABS: Labs Reviewed - No data to display All other labs were within normal range or not returned as of this dictation. EMERGENCY DEPARTMENT COURSE and DIFFERENTIAL DIAGNOSIS/MDM: Vitals: Vitals: 02/23/23 1730 BP: 117/74 BP Location: Right arm Patient Position: Sitting Pulse: 91 Resp: 16 Temp: 36.8 C (98.2 F) TempSrc: Oral SpO2: 100% 37 year old male comes to the ED for a fish hook stuck in right ring finger for last 3 hours. Patient is right handed. He does not know when his last tetanus shot was administered. On exam, he was nontoxic in appearance. Lungs were clear. Pulses were noted in right wrist. Foreign body of skin was noted in right ring finger. Tetanus was given. The affected finger was numbed with 1 percent lidocaine. Fish hook was manually removed and finger was cleaned. Patient was discharged on po keflex. Finaldiagnosis was foreign body in skin of right finger Diagnoses as of 02/23/231750 Foreign body in skin of finger of right hand Medications lidocaine (Xylocaine) 1 % injection 10 mL (has no administration in time range) Tdap (BoostRIX) vaccine 0.5 mL (0.5 mL IntraMUSCular Given 02/23/231749) REVAL: CRITICAL CARE TIME None CONSULTS: None PROCEDURES: Unless otherwise noted below, none Procedures FINAL IMPRESSION 1. Foreign body in skin of finger of right hand DISPOSITION Discharge 02/23/2023 05:49:18 PM PATIENT REFERRED TO: [place] [address] Call in 3 days DISCHARGE MEDICATIONS: New Prescriptions CEPHALEXIN (KEFLEX) 500 MG CAPSULE Take 1 capsule (500 mg) by mouth 3 times daily for 7 days. (Comment: Please note this report has been produced using speech recognition software and may contain errors related to that system including errors in grammar, punctuation, and spelling, as well as words and phrases that may be inappropriate. If there are any questions or concerns please feel freeto contact the dictating provider for clarification.) Alex Santiago MD (electronically signed) Emergency Medicine Provider Alex Santiago MD 02/23/231751 * Karina Arevalo LPN - 02/23/2023 5:16 PM EDT Pt presents to the ED with acute injury to his right ring finger. Pt got a fishing hook stuck in his finger. Pt states it happened around 1430. Pt was able to walk back to the unit without any difficulty.. Pt is alert and oriented x's 4. Pt family is at bedside. documented in this encounterSPark[facility] [id number] Emergency department Triage note* Karina Arevalo LPN - 02/23/2023 5:16 PM EDT Pt presents to the ED with acute injury to his right ring finger. Pt got a fishing hook stuck in his finger. Pt states it happened around 1430. Pt was able to walk back to the unit without any difficulty.. Pt is alert and oriented x's 4. Pt family is at bedside. [id number] Emergency department Note* Alex Santiago MD - 02/23/2023 5:16 PM EDT EMERGENCY DEPARTMENT ENCOUNTER Pt Name: Mayito Forbes Birthdate 1985 Date of evaluation: 02/23/2023 ED Provider: Alex Santiago MD CHIEF COMPLAINT No chief complaint on file. HISTORY OF PRESENT ILLNESS (Location/Symptom, Timing/Onset, Context/Setting, Quality, Duration, Modifying Factors, Severity) Note limiting factors. I wore appropriate PPE for the entirety of this encounter. History provided by: Patient captain room service used: No Foreign Body Intake: Right ring finger. Suspected object: fish hook. Pain quality: Aching Pain severity: Mild Duration: 3 hours Timing: Constant Progression: Unchanged Chronicity: New Worsened by: Nothing Ineffective treatments: None tried Associated symptoms: no abdominal pain, no choking, no congestion, no cough, no cyanosis, no difficulty breathing, no drooling, no ear discharge, no ear pain, no hearing loss, no nasal discharge, no nausea, no nosebleeds, no rectal bleeding, no rectal pain, no rhinorrhea, no sore throat, no troubleswallowing and no vomiting Risk factors: no developmental delay, no hx of esophageal strictures, no mental health problem, no prior similar events and no prior surgery to area Mayito Forbes is a 37 y.o. who presents to the emergency department with chief complaint of fish hook stuck in right finger Nursing Notes were reviewed. Limitations to history: None Outside historians: Significant other REVIEW OF SYSTEMS Review of Systems HENT: Negative for congestion, drooling, ear discharge, ear pain, hearing loss, nosebleeds, rhinorrhea, sore throat and trouble swallowing. Respiratory: Negative for cough and choking. Cardiovascular: Negative for cyanosis. Gastrointestinal: Negative for abdominal pain, nausea, rectal pain and vomiting. Skin: Positive for wound. Wound/foreign body of right ring finger All other systems reviewed and are negative. Pertinent positives and negatives as per HPI. PAST MEDICAL HISTORY History reviewed. No pertinent past medical history. SURGICAL HISTORY History reviewed. No pertinent surgical history. CURRENT MEDICATIONS Previous Medications ACETAMINOPHEN (TYLENOL) 500 MG TABLET BUPRENORPHINE-NALOXONE (SUBOXONE) 2-0.5 MG PER SUBLINGUAL FILM CLONIDINE (CATAPRES) 0.1 MG TABLET DICYCLOMINE (BENTYL) 10 MG CAPSULE DOXYCYCLINE (MONODOX) 100 MG CAPSULE GABAPENTIN (NEURONTIN) 300 MG CAPSULE HYDROXYZINE PAMOATE (VISTARIL) 25 MG CAPSULE IBUPROFEN 400 MG TABLET LOPERAMIDE (IMODIUM) 2 MG CAPSULE NALOXONE (NARCAN) 4 MG/0.1 ML NASAL SPRAY NICOTINE (NICODERM, STEP 2) 14 MG/24HR PATCH ONDANSETRON (ZOFRAN) 4 MG TABLET PANTOPRAZOLE (PROTONIX) 40 MG EC TABLET PENICILLIN V POTASSIUM (VEETID) 500 MG TABLET PREDNISONE (DELTASONE) 20 MG TABLET TRAZODONE (DESYREL) 50 MG TABLET VENLAFAXINE XR (EFFEXOR XR) 150 MG 24 HR CAPSULE VIVITROL INJECTION ALLERGIES Patient has no known allergies. FAMILY HISTORY No family history on file. SOCIAL HISTORY Social History Socioeconomic History Marital status: Single Tobacco Use Smoking status: Unknown SCREENINGS PHYSICAL EXAM ED Triage Vitals Temp Pulse Resp BP -- -- -- -- SpO2 Temp src Heart Rate Source Patient Position -- -- -- -- BP Location FiO2 (%) -- -- Physical Exam Vitals and nursing note reviewed. Exam conducted with a production checker present. Constitutional: General: He is not in acute distress. Appearance: Normal appearance. He is normal weight. He is not ill-appearing, toxic-appearing or diaphoretic. HENT: Head: Normocephalic and atraumatic. Right Ear: Tympanic membrane, ear canal and external ear normal. Left Ear: Tympanic membrane, ear canal and external ear normal. Nose: Nose normal. Mouth/Throat: Mouth: Mucous membranes are moist. Pharynx: Oropharynx is clear. No oropharyngeal exudate or posterior oropharyngeal erythema. Eyes: Extraocular Movements: Extraocular movements intact. Conjunctiva/sclera: Conjunctivae normal. Pupils: Pupils are equal, round, and reactive to light. Cardiovascular: Rate and Rhythm: Normal rate and regular rhythm. Pulses: Normal pulses. Heart sounds: Normal heart sounds. Pulmonary: Effort: Pulmonary effort is normal. No respiratory distress. Breath sounds: Normal breath sounds. No stridor. No wheezing, rhonchi or rales. Chest: Chest wall: No tenderness. Abdominal: General: Abdomen is flat. Bowel sounds are normal. Palpations: Abdomen is soft. Musculoskeletal: General: No swelling, tenderness, deformity or signs of injury. Normal range of motion. Cervical back: Normal range of motion and neck supple. Right lower leg: No edema. Left lower leg: No edema. Skin: General: Skin is warm. Capillary Refill: Capillary refill takes less than 2 seconds. Comments: Foreign body noted in skin of right ring finger Neurological: General: No focal deficit present. Mental Status: He is alert and oriented to person, place, and time. Mental status is at baseline. Cranial Nerves: No cranial nerve deficit. Sensory: No sensory deficit. Motor: No weakness. Coordination: Coordination normal. Gait: Gait normal. Deep Tendon Reflexes: Reflexes normal. Psychiatric: Mood and Affect: Mood normal. Behavior: Behavior normal. Thought Content: Thought content normal. Judgment: Judgment normal. DIAGNOSTIC RESULTS Procedures/EKG: EKG was reviewed by myself. Physician EKG interpretation can be found in [facility] RADIOLOGY (Per Emergency Physician): Interpretation per the Radiologist below, if available at the time of this note: XR hand 3+ views right (Results Pending) ED BEDSIDE ULTRASOUND: Performed by ED Physician - none LABS: Labs Reviewed - No data to display All other labs were within normal range or not returned as of this dictation. EMERGENCY DEPARTMENT COURSE and DIFFERENTIAL DIAGNOSIS/MDM: Vitals: Vitals: 02/23/23 1730 BP: 117/74 BP Location: Right arm Patient Position: Sitting Pulse: 91 Resp: 16 Temp: 36.8 C (98.2 F) TempSrc: Oral SpO2: 100% 37 year old male comes to the ED for a fish hook stuck in right ring finger for last 3 hours. Patient is right handed. He does not know when his last tetanus shot was administered. On exam, he was nontoxic in appearance. Lungs were clear. Pulses were noted in right wrist. Foreign body of skin was noted in right ring finger. Tetanus was given. The affected finger was numbed with 1 percent lidocaine. Fish hook was manually removed and finger was cleaned. Patient was discharged on po keflex. Finaldiagnosis was foreign body in skin of right finger Diagnoses as of 02/23/231750 Foreign body in skin of finger of right hand Medications lidocaine (Xylocaine) 1 % injection 10 mL (has no administration in time range) Tdap (BoostRIX) vaccine 0.5 mL (0.5 mL IntraMUSCular Given 02/23/231749) REVAL: CRITICAL CARE TIME None CONSULTS: None PROCEDURES: Unless otherwise noted below, none Procedures FINAL IMPRESSION 1. Foreign body in skin of finger of right hand DISPOSITION Discharge 02/23/2023 05:49:18 PM PATIENT REFERRED TO: [place] [address] Call in 3 days DISCHARGE MEDICATIONS: New Prescriptions CEPHALEXIN (KEFLEX) 500 MG CAPSULE Take 1 capsule (500 mg) by mouth 3 times daily for 7 days. (Comment: Please note this report has been produced using speech recognition software and may contain errors related to that system including errors in grammar, punctuation, and spelling, as well as words and phrases that may be inappropriate. If there are any questions or concerns please feel freeto contact the dictating provider for clarification.) Alex Santiago MD (electronically signed) Emergency Medicine Provider Alex Santiago MD 02/23/231751 [id number] Hospital course Narrative* González Hearn MD - 06/04/2022 12:35 PM EST Images from the original note were not included. [facility] [place] [facility] Mayito Forbes Admitted: 05/30/2022 Discharge Date: 06/04/22 PCP Handoff Recommended Outpatient Testing None Results Pending At Discharge None Clinical Summary Mayito Forbes is a 36 y.o. male patient of Soco Paige CNP with history of substance abuse, GERD, and hyperemesis who presented to [facility] with withdrawal symptoms. While in the hospital patient was treated for opiate overdose as well as amphetamine overdose symptomatically. Patientwas being followed by Dr. Juan from addiction medicine. Patient received Vivitrol before dischargeas well as naltrexone. Patient is advised to follow-up with PCP and go to [place] on discharge. Acute toxic encephalopathy POA-improved U tox was positive for amphetamine, cannabinoid and fentanyl Acute hypoxic respiratory failure POA improved Likely secondary to mild aspiration, vomiting, and opiate overdose CXR reviewed, left basilar atelectasis without focal consolidation or effusion Continue Unasyn. On 2 L nasal cannula, continue to wean as tolerated. CTPA reviewed. No dissection, no PE or any other acute findings. Opiate overdose, undetermined intent, initial encounter POA Multidrug use Received multiple doses of Narcan in ER Narcan ordered as needed, no indication for infusion Dr Juan following, notes reviewed. Still remains slightly groggy states that he was on Effexor and gabapentin outpatient. We will holdoff on gabapentin given his episode of decreased responsiveness yesterday for Resume Effexor. Dr Juan to re-evalaute. Patient is asking about Vivitrol. EEG reviewed-does not have clear epileptiform discharges however intermittent background slowing consistent with frontal intermittent rhythmic delta activity. Neurology signed off Nausea and vomiting -resolved Okay for diet today. Aspiration precautions. Hypokalemia Replace potassium per repeat labs tomorrow. Hypertension POA BP elevated on admission Pharmacy Hx for Catapres, only written for 7 days Given age and lack of history for essential hypertension, monitor for now As needed hydralazine for SBP greater than 165 mmHg Nicotine dependence, cigarette smoker More than 3 minutes were spent attempting to discussed the risks of continued use and benefits of cessation Acute confusion - resolved Patient had rapid response on 06/01/2022 for acute onset confusion and decreased responsiveness On arrival patient was alert but minimally responsive, pupils were dilated not constricted. Give 1 dose of Narcan regardless due to history of opiate overdose and multidrug use Blood pressure was stable. Patient was slightly tachycardic, will give 1 L IV fluid bolus ABGs reviewed, showing hypocapnia Discharge Medications Discharge Medications New Medications Details amoxicillin-clavulanate 875-125 mg per tablet Commonly known as: AUGMENTIN Take 1 (one) tablet by mouth 2 (two) times a day for 5 days . Quantity: 10 tablet venlafaxine 150 MG 24 hr capsule Commonly known as: EFFEXOR-XR Take 1 (one) capsule (150 mg total) by mouth daily with breakfast Start: 06/04/22. Quantity: 30 capsule Medications To Continue Details baclofen 10 MG tablet Commonly known as: LIORESAL Take 20 mg TID X 6 doses then 10 mg TID X 9 doses . Quantity: 21 tablet * famotidine 20 MG tablet Commonly known as: PEPCID Take 1 (one) tablet (20 mg total) by mouth 2 (two) times a day for 10 doses . Quantity: 10 tablet * famotidine 20 MG tablet Commonly known as: PEPCID Take 1 (one) tablet (20 mg total) by mouth 2 (two) times a day for 20 doses . Quantity: 20 tablet * ondansetron 4 MG tablet Commonly known as: ZOFRAN Take 1 (one) tablet (4 mg total) by mouth every 8 (eight) hours as needed for nausea . Quantity: 15 tablet * ondansetron 4 MG tablet Commonly known as: ZOFRAN Take 1 (one) tablet (4 mg total) by mouth every 6 (six) hours as needed . Quantity: 15 tablet * ondansetron 8 MG tablet Commonly known as: ZOFRAN Take 0.5 (one-half) tablet (4 mg total) by mouth every 8 (eight) hours as needed . Quantity: 14 tablet pantoprazole 40 MG tablet Commonly known as: PROTONIX Take 1 (one) tablet (40 mg total) by mouth daily . Quantity: 30 tablet * promethazine 25 MG tablet Commonly known as: PHENERGAN Take 1 (one) tablet (25 mg total) by mouth every 6 (six) hours as needed for nausea . Quantity: 10 tablet * promethazine 25 MG tablet Commonly known as: PHENERGAN Take 1 (one) tablet (25 mg total) by mouth every 4 (four) hours as needed for nausea . Quantity: 10 tablet * promethazine 25 MG tablet Commonly known as: PHENERGAN Take 1 (one) tablet (25 mg total) by mouth every 6 (six) hours as needed for nausea . Quantity: 10 tablet topiramate 25 MG tablet Commonly known as: TOPAMAX Take 1 (one) tablet (25 mg total) by mouth 2 (two) times a day . Quantity: 30 tablet * There are duplicate medications prescribed to the patient Stopped Medications cloNIDine HCL 0.1 MG tablet Commonly known as: CATAPRES levoFLOXacin 500 MG tablet Commonly known as: LEVAQUIN Physician(s) Follow Up: Soco Paige CNP [address] [facility] [id number] Schedule an appointment as soon as possible for a visit in 1 week(s) Soco Paige CNP [address] [facility] [address] Schedule an appointment as soon as possible for a visit in 1 week(s) Condition at Discharge: Stable Disposition: Home On day of discharge, I performed a final bedside evaluation including a physical exam. I reviewed discharge recommendations with the patient in person. Patient instructions, including activity, were given to the patient/family at discharge. Time spent on discharge: > 30 minutes Completed by: González Hearn on 06/04/22, 12:35 PM documented in this [id number] Consult note* Marc Juan MD - 06/03/2022 12:53 PM EST PEER TO PEER ADDICTION MEDICINE CONSULT NOTE Patient Name: Mayito Forbes Admit Date: 1000702 MR #: [id number] : 1985 Physicians: Soco Paige CNP (Family); No ref. provider found (referring) Ordering Provider: Principal Problem: Respiratory failure with hypoxia (HCC) Assessment and Plan: POLYSUBSTANCE USE AND WITHDRAWAL Patient will be 5 days post last fentanyl use this evening and will trial oral naltrexone 25 this evening and if okay then Vivitrol IM tomorrow with help of nursing to administer Would recommend continuing topiramte 25 BID and NAC for the stimulant component. This may possibly help if having absence episodes from his withdrawal Will need medical follow up with Soco Paige or [address] Assessment Detail: The total time spent for this visit was 40 to 45 minutes. Greater than 50% of the time was spent incoordination of care Dr Hearn and team. Reason for Consult: Management of substance use disorder Linking to outpatient services. History of Present Illness: Mayito Forbes is a 36 y.o. y/o male presenting from ED front with c/o AMS Chief Complaint Patient presents with Drug Overdose Patient discussed with Care team. Is much more oriented and reports last use 05/19 evening. Is wanting Vivitrol and reports has appointment with [place] tomorrow at 2 pm. Will trial naltrexone 25 mg tiral dose tonight and if no problem will get Vivitrol tomorrow morningand then get to his [place] appointment. Will need medical follow up also. Hopefully he is getting to safe environment Past Medical History: Diagnosis Date Depression Past Surgical History: Procedure Laterality Date MANDIBLE FRACTURE SURGERY 06/26/2011 History reviewed. No pertinent family history. Social History Socioeconomic History Marital status: Single Tobacco Use Smoking status: Every Day Packs/day: 0.50 Years: 10.00 Pack years: 5.00 Types: Cigarettes Smokeless tobacco: Never Vaping Use Vaping Use: Never used Substance and Sexual Activity Alcohol use: Never Drug use: Yes Types: Other, Marijuana, Opiates Comment: heroin AOD History: Meth Fentanyl Treatment history: most recently [place] Longest period of sobriety: ? OD history: yes Typical withdrawal symptoms: ?especially GI? Seizure history: No? Or possibly absence? Psychiatric History: Diagnoses: no? Previous Medications Medication Sig baclofen (LIORESAL) 10 MG tablet Take 20 mg TID X 6 doses then 10 mg TID X 9 doses . cloNIDine HCL (CATAPRES) 0.1 MG tablet Take 1 (one) tablet (0.1 mg total) by mouth 2 (two) times a day for 7 days . famotidine (PEPCID) 20 MG tablet Take 1 (one) tablet (20 mg total) by mouth 2 (two) times a day for10 doses . famotidine (PEPCID) 20 MG tablet Take 1 (one) tablet (20 mg total) by mouth 2 (two) times a day for20 doses . levoFLOXacin (LEVAQUIN) 500 MG tablet Take 1 (one) tablet (500 mg total) by mouth daily . (Patient not taking: Reported on 10/22/2021 .) ondansetron (ZOFRAN) 4 MG tablet Take 1 (one) tablet (4 mg total) by mouth every 8 (eight) hours asneeded for nausea . ondansetron (ZOFRAN) 4 MG tablet Take 1 (one) tablet (4 mg total) by mouth every 6 (six) hours as needed . ondansetron (ZOFRAN) 8 MG tablet Take 0.5 (one-half) tablet (4 mg total) by mouth every 8 (eight) hours as needed . pantoprazole (PROTONIX) 40 MG tablet Take 1 (one) tablet (40 mg total) by mouth daily . promethazine (PHENERGAN) 25 MG tablet Take 1 (one) tablet (25 mg total) by mouth every 6 (six) hours as needed for nausea . promethazine (PHENERGAN) 25 MG tablet Take 1 (one) tablet (25 mg total) by mouth every 4 (four) hours as needed for nausea . promethazine (PHENERGAN) 25 MG tablet Take 1 (one) tablet (25 mg total) by mouth every 6 (six) hours as needed for nausea . topiramate (TOPAMAX) 25 MG tablet Take 1 (one) tablet (25 mg total) by mouth 2 (two) times a day . No Known Allergies Patient Vitals for the past 24 hrs: BP Temp Temp src Pulse Resp SpO2 06/03/22 0955 -- -- -- -- -- 93 % 06/03/22 0815 (!) 158/102 98.3 F (36.8 C) Oral 76 18 95 % 06/02/22 2348 (!) 159/91 98.9 F (37.2 C) Oral 89 18 92 % 06/02/22 1943 (!) 137/90 99 F (37.2 C) Oral 91 18 97 % 06/02/22 1547 (!) 157/92 98.9 F (37.2 C) Oral 89 (!) 20 96 % Allergy Information: I have reviewed the patient's allergies. Patient has no known allergies. Home Medications: Outpatient Medications as of 06/03/2022 Medication Sig amoxicillin-clavulanate (AUGMENTIN) 875-125 mg per tablet Take 1 (one) tablet by mouth 2 (two) times a day for 5 days . baclofen (LIORESAL) 10 MG tablet Take 20 mg TID X 6 doses then 10 mg TID X 9 doses . levoFLOXacin (LEVAQUIN) 500 MG tablet Take 1 (one) tablet (500 mg total) by mouth daily . (Patient not taking: Reported on 10/22/2021 .) ondansetron (ZOFRAN) 4 MG tablet Take 1 (one) tablet (4 mg total) by mouth every 6 (six) hours as needed . promethazine (PHENERGAN) 25 MG tablet Take 1 (one) tablet (25 mg total) by mouth every 6 (six) hours as needed for nausea . promethazine (PHENERGAN) 25 MG tablet Take 1 (one) tablet (25 mg total) by mouth every 4 (four) hours as needed for nausea . promethazine (PHENERGAN) 25 MG tablet Take 1 (one) tablet (25 mg total) by mouth every 6 (six) hours as needed for nausea . [START ON 06/04/2022] venlafaxine (EFFEXOR-XR) 150 MG 24 hr capsule Take 1 (one) capsule (150 mg total) by mouth daily with breakfast Start: 06/04/22. Laboratory & Radiographic Imaging (if done): Recent Results (from the past 24 hour(s)) Drugs of Abuse Screen, Urine Collection Time: 06/02/22 3:26 PM Result Value Ref Range Amphetamine Screen, Urine None Detected None Detected Barbiturate Screen, Urine None Detected None Detected Benzodiazepine Screen, Urine None Detected None Detected Cannabinoid Screen, Urine None Detected None Detected Cocaine, Screen Urine None Detected None Detected Methadone Screen, Urine None Detected None Detected Opiate Screen, Urine None Detected None Detected Oxycodone Screen, Urine None Detected None Detected Buprenorphine, Ur None Detected None Detected Fentanyl, Ur Presumptive Positive (A) None Detected Potassium Level Collection Time: 06/02/22 8:07 PM Result Value Ref Range Potassium 3.6 3.5 - 5.1 mmol/L Basic Metabolic Panel Collection Time: 06/03/22 5:58 AM Result Value Ref Range Sodium 143 135 - 145 mmol/L Potassium 3.6 3.5 - 5.1 mmol/L Chloride 109 (H) 98 - 108 mmol/L Bicarbonate 21 21 - 32 mmol/L Anion Gap 17 10 - 20 mmol/L Glucose 106 (H) 65 - 99 mg/dL BUN 7 (L) 8 - 25 mg/dL Creatinine 0.66 0.50 - 1.30 mg/dL eGFR 125 >=60 mL/min/1.73 m2 BUN/Creatinine Ratio 10.6 10.0 - 20.0 Calcium 9.1 8.4 - 10.2 mg/dL Magnesium Level Collection Time: 06/03/22 5:58 AM Result Value Ref Range Magnesium 2.2 1.6 - 2.4 mg/dL CBC Auto Differential Collection Time: 06/03/22 5:58 AM Result Value Ref Range WBC 9.76 4.50 - 11.00 K/mcL RBC 4.93 4.50 - 5.90 M/mcL Hemoglobin 14.2 13.5 - 17.5 g/dL Hematocrit 40.3 (L) 41.0 - 53.0 % MCV 81.7 80.0 - 100.0 fL MCH 28.8 26.0 - 34.0 pg MCHC 35.2 31.0 - 37.0 g/dL Platelets 309 150 - 400 K/mcL RDW - CV 13.0 11.6 - 14.8 % MPV 9.3 (L) 9.4 - 12.4 fL Neutrophils 76.6 % Lymphocytes 15.1 % Monocytes 7.4 % Eosinophils 0.2 % Basophils 0.3 % IG Percent 0.40 % Neutrophils Abs 7.48 (H) 1.70 - 7.00 K/mcL Lymphocytes Abs 1.47 0.90 - 4.00 K/mcL Monocytes Abs 0.72 0.30 - 0.90 K/mcL Eosinophils Abs 0.02 0.00 - 0.50 K/mcL Basophils Abs 0.03 0.00 - 0.30 K/mcL IG Absolute 0.04 0.00 - 0.30 K/mcL Nucleated RBC 0.0 % Nucleated RBC Abs 0.00 0.00 - 0.00 K/mcL EEG (Standard) Final Result CT Head Or Brain Without Contrast Final Result No acute intracranial process. No substantial change since 05/30/2022. Workstation ID: [id number] CTA Pulm Art and CT Abd Pelvis with IV contrast Final Result 1. No aortic dissection, pulmonary arterial embolism, or other acute findings in the chest, abdomenor pelvis. 2. Dense stool moderately distending the rectal vault. This could be normal or reflect mild fecal impaction. Workstation ID: [id number] CT Head Or Brain Without Contrast Final Result No acute intracranial abnormality. FOLLOW-UP: Follow-up as clinically indicated. Workstation ID: [id number] XR Chest 1 View Final Result 1. Left basilar atelectasis. No focal consolidation or effusion. Workstation ID: [id number] Consult note* Marc Juan MD - 06/03/2022 12:53 PM EST PEER TO PEER ADDICTION MEDICINE CONSULT NOTE Patient Name: Mayito Forbes Admit Date: 1000702 MR #: [id number] : 1985 Physicians: Soco Paige CNP (Family); No ref. provider found (referring) Ordering Provider: Principal Problem: Respiratory failure with hypoxia (HCC) Assessment and Plan: POLYSUBSTANCE USE AND WITHDRAWAL Patient will be 5 days post last fentanyl use this evening and will trial oral naltrexone 25 this evening and if okay then Vivitrol IM tomorrow with help of nursing to administer Would recommend continuing topiramte 25 BID and NAC for the stimulant component. This may possibly help if having absence episodes from his withdrawal Will need medical follow up with Soco Paige or [address] [place] [address] Assessment Detail: The total time spent for this visit was 40 to 45 minutes. Greater than 50% of the time was spent incoordination of care Dr Hearn and team. Reason for Consult: Management of substance use disorder Linking to outpatient services. History of Present Illness: Mayito Forbes is a 36 y.o. y/o male presenting from ED front with c/o AMS Chief Complaint Patient presents with Drug Overdose Patient discussed with Care team. Is much more oriented and reports last use 05/19 evening. Is wanting Vivitrol and reports has appointment with [facility] tomorrow at 2 pm. Will trial naltrexone 25 mg tiral dose tonight and if no problem will get Vivitrol tomorrow morningand then get to his [facility] appointment. Will need medical follow up also. Hopefully he is getting to safe environment Past Medical History: Diagnosis Date Depression Past Surgical History: Procedure Laterality Date MANDIBLE FRACTURE SURGERY 06/26/2011 History reviewed. No pertinent family history. Social History Socioeconomic History Marital status: Single Tobacco Use Smoking status: Every Day Packs/day: 0.50 Years: 10.00 Pack years: 5.00 Types: Cigarettes Smokeless tobacco: Never Vaping Use Vaping Use: Never used Substance and Sexual Activity Alcohol use: Never Drug use: Yes Types: Other, Marijuana, Opiates Comment: heroin AOD History: Meth Fentanyl Treatment history: most recently [place] Longest period of sobriety: ? OD history: yes Typical withdrawal symptoms: ?especially GI? Seizure history: No? Or possibly absence? Psychiatric History: Diagnoses: no? Previous Medications Medication Sig baclofen (LIORESAL) 10 MG tablet Take 20 mg TID X 6 doses then 10 mg TID X 9 doses . cloNIDine HCL (CATAPRES) 0.1 MG tablet Take 1 (one) tablet (0.1 mg total) by mouth 2 (two) times a day for 7 days . famotidine (PEPCID) 20 MG tablet Take 1 (one) tablet (20 mg total) by mouth 2 (two) times a day for10 doses . famotidine (PEPCID) 20 MG tablet Take 1 (one) tablet (20 mg total) by mouth 2 (two) times a day for20 doses . levoFLOXacin (LEVAQUIN) 500 MG tablet Take 1 (one) tablet (500 mg total) by mouth daily . (Patient not taking: Reported on 10/22/2021 .) ondansetron (ZOFRAN) 4 MG tablet Take 1 (one) tablet (4 mg total) by mouth every 8 (eight) hours asneeded for nausea . ondansetron (ZOFRAN) 4 MG tablet Take 1 (one) tablet (4 mg total) by mouth every 6 (six) hours as needed . ondansetron (ZOFRAN) 8 MG tablet Take 0.5 (one-half) tablet (4 mg total) by mouth every 8 (eight) hours as needed . pantoprazole (PROTONIX) 40 MG tablet Take 1 (one) tablet (40 mg total) by mouth daily . promethazine (PHENERGAN) 25 MG tablet Take 1 (one) tablet (25 mg total) by mouth every 6 (six) hours as needed for nausea . promethazine (PHENERGAN) 25 MG tablet Take 1 (one) tablet (25 mg total) by mouth every 4 (four) hours as needed for nausea . promethazine (PHENERGAN) 25 MG tablet Take 1 (one) tablet (25 mg total) by mouth every 6 (six) hours as needed for nausea . topiramate (TOPAMAX) 25 MG tablet Take 1 (one) tablet (25 mg total) by mouth 2 (two) times a day . No Known Allergies Patient Vitals for the past 24 hrs: BP Temp Temp src Pulse Resp SpO2 06/03/22 0955 -- -- -- -- -- 93 % 06/03/22 0815 (!) 158/102 98.3 F (36.8 C) Oral 76 18 95 % 06/02/22 2348 (!) 159/91 98.9 F (37.2 C) Oral 89 18 92 % 06/02/22 1943 (!) 137/90 99 F (37.2 C) Oral 91 18 97 % 06/02/22 1547 (!) 157/92 98.9 F (37.2 C) Oral 89 (!) 20 96 % Allergy Information: I have reviewed the patient's allergies. Patient has no known allergies. Home Medications: Outpatient Medications as of 06/03/2022 Medication Sig amoxicillin-clavulanate (AUGMENTIN) 875-125 mg per tablet Take 1 (one) tablet by mouth 2 (two) times a day for 5 days . baclofen (LIORESAL) 10 MG tablet Take 20 mg TID X 6 doses then 10 mg TID X 9 doses . levoFLOXacin (LEVAQUIN) 500 MG tablet Take 1 (one) tablet (500 mg total) by mouth daily . (Patient not taking: Reported on 10/22/2021 .) ondansetron (ZOFRAN) 4 MG tablet Take 1 (one) tablet (4 mg total) by mouth every 6 (six) hours as needed . promethazine (PHENERGAN) 25 MG tablet Take 1 (one) tablet (25 mg total) by mouth every 6 (six) hours as needed for nausea . promethazine (PHENERGAN) 25 MG tablet Take 1 (one) tablet (25 mg total) by mouth every 4 (four) hours as needed for nausea . promethazine (PHENERGAN) 25 MG tablet Take 1 (one) tablet (25 mg total) by mouth every 6 (six) hours as needed for nausea . [START ON 06/04/2022] venlafaxine (EFFEXOR-XR) 150 MG 24 hr capsule Take 1 (one) capsule (150 mg total) by mouth daily with breakfast Start: 06/04/22. Laboratory & Radiographic Imaging (if done): Recent Results (from the past 24 hour(s)) Drugs of Abuse Screen, Urine Collection Time: 06/02/22 3:26 PM Result Value Ref Range Amphetamine Screen, Urine None Detected None Detected Barbiturate Screen, Urine None Detected None Detected Benzodiazepine Screen, Urine None Detected None Detected Cannabinoid Screen, Urine None Detected None Detected Cocaine, Screen Urine None Detected None Detected Methadone Screen, Urine None Detected None Detected Opiate Screen, Urine None Detected None Detected Oxycodone Screen, Urine None Detected None Detected Buprenorphine, Ur None Detected None Detected Fentanyl, Ur Presumptive Positive (A) None Detected Potassium Level Collection Time: 06/02/22 8:07 PM Result Value Ref Range Potassium 3.6 3.5 - 5.1 mmol/L Basic Metabolic Panel Collection Time: 06/03/22 5:58 AM Result Value Ref Range Sodium 143 135 - 145 mmol/L Potassium 3.6 3.5 - 5.1 mmol/L Chloride 109 (H) 98 - 108 mmol/L Bicarbonate 21 21 - 32 mmol/L Anion Gap 17 10 - 20 mmol/L Glucose 106 (H) 65 - 99 mg/dL BUN 7 (L) 8 - 25 mg/dL Creatinine 0.66 0.50 - 1.30 mg/dL eGFR 125 >=60 mL/min/1.73 m2 BUN/Creatinine Ratio 10.6 10.0 - 20.0 Calcium 9.1 8.4 - 10.2 mg/dL Magnesium Level Collection Time: 06/03/22 5:58 AM Result Value Ref Range Magnesium 2.2 1.6 - 2.4 mg/dL CBC Auto Differential Collection Time: 06/03/22 5:58 AM Result Value Ref Range WBC 9.76 4.50 - 11.00 K/mcL RBC 4.93 4.50 - 5.90 M/mcL Hemoglobin 14.2 13.5 - 17.5 g/dL Hematocrit 40.3 (L) 41.0 - 53.0 % MCV 81.7 80.0 - 100.0 fL MCH 28.8 26.0 - 34.0 pg MCHC 35.2 31.0 - 37.0 g/dL Platelets 309 150 - 400 K/mcL RDW - CV 13.0 11.6 - 14.8 % MPV 9.3 (L) 9.4 - 12.4 fL Neutrophils 76.6 % Lymphocytes 15.1 % Monocytes 7.4 % Eosinophils 0.2 % Basophils 0.3 % IG Percent 0.40 % Neutrophils Abs 7.48 (H) 1.70 - 7.00 K/mcL Lymphocytes Abs 1.47 0.90 - 4.00 K/mcL Monocytes Abs 0.72 0.30 - 0.90 K/mcL Eosinophils Abs 0.02 0.00 - 0.50 K/mcL Basophils Abs 0.03 0.00 - 0.30 K/mcL IG Absolute 0.04 0.00 - 0.30 K/mcL Nucleated RBC 0.0 % Nucleated RBC Abs 0.00 0.00 - 0.00 K/mcL EEG (Standard) Final Result CT Head Or Brain Without Contrast Final Result No acute intracranial process. No substantial change since 05/30/2022. Workstation ID: [id number] CTA Pulm Art and CT Abd Pelvis with IV contrast Final Result 1. No aortic dissection, pulmonary arterial embolism, or other acute findings in the chest, abdomenor pelvis. 2. Dense stool moderately distending the rectal vault. This could be normal or reflect mild fecal impaction. Workstation ID: [id number] CT Head Or Brain Without Contrast Final Result No acute intracranial abnormality. FOLLOW-UP: Follow-up as clinically indicated. Workstation ID: [id number] XR Chest 1 View Final Result 1. Left basilar atelectasis. No focal consolidation or effusion. Workstation ID: [id number] * Hal Clarke MD - 06/02/2022 2:30 PM ESTAssociated Order(s): IP CONSULT TO NEUROLOGY Neurology Inpatient Consult [facility] 06/02/2022 Patient: Mayito Forbes Date of : 1985 (36 y.o.) Referring Provider: Refer to consult order in electronic medical record PCP: Soco Paige CNP ASSESSMENT: 36 y.o. male presented to [facility] on 05/30/2022 with decreased responsiveness and verbal output. Patient ex-girlfriend described he has been withdrawing from heroin use. He was described to be tremulous, nauseous and vomiting while in the ER. He has no history of seizure and no clear description of generalized tonic-clonic seizure. No head injury, TIA or stroke. EEG showed no epileptiform discharges. Impression: Encephalopathy secondary to drug use Substance abuse Anxiety/depression Hypertension BPH PLAN: Monitor for any clinical tonic-clonic seizure. No driving or operating motor vehicles. Discontinue substance use and tobacco use. Monitor for any worsening anxiety and depression. Follow-up with addiction medicine. No clear indication for anticonvulsant at this time. No further suggestion at this time. Will sign off. Please call if needed. I have personally reviewed/visualized the patient's images, as documented above. I have personally reviewed the patient's labs, procedure and ancillary testing as listed above. Impression, plan and suggestions was discussed with the patient/family/caregivers. Questions and concerns were discussed and addressed. This note was created in part using a speech-recognition software. Timed code: 80 minutes Includes time preparation to see the patient (reviewing previous history, notes, exam, test, procedure, and medications); Obtaining history from the patient/family/caregivers; performing face to faceevaluation and examination; ordering medications, tests, or procedures; referring and communicatingwith other healthcare professionals; update, counseling and education of the patient/family/caregiver; independently interpreting results (Tests, labs, imaging) and communicating results to the patient/family/caregiver; coordination of care; documenting clinical information in the electronic and other health records. Encephalopathy and drug use Answered questions and rediscussed plan at length with Patient. DIAGNOSTIC TESTING SUMMARY: Pending Lab and Radiology Results Order Current Status Phosphatidylethanol Confirmation, Blood In process Resulted Testing: (MRI/CT/XR, EEG, EMG, CSF, Cardiac, Labs) SUBJECTIVE: Chief Complaint/Reason for Consult: Seizure Informant(s): Patient, ex-girlfriend, Care Team/Chart History of Present Illness: Mayito Forbes is a 36 y.o. male who was admitted because of decreased responsiveness. His girlfriend found him in the bathroom and will not talk to her. He is awake and no tonic-clonic seizure automatism was noted. No recent falls or injury. He recently stopped using IV heroine and according to the ex- girlfriend seems to be withdrawing. He denies any drug overdose. He has previous history of drug overdose where he was comatose and limp. There is no history of recent head injury, TIA, stroke,febrile seizure, childhood seizure, or seizures. Past medical history include hypertension, BPH, anxiety and depression. He smokes tobacco and uses IV heroin. He denies any recreational drug use or alcohol. Family history is unknown. Review of Systems: All systems reviewed and negative except pertinent positives and negatives documented in the History of Present Illness (HPI). History: Past Medical History: Diagnosis Date Depression Past Surgical History: Procedure Laterality Date MANDIBLE FRACTURE SURGERY 06/26/2011 Social History Socioeconomic History Marital status: Single Tobacco Use Smoking status: Every Day Packs/day: 0.50 Years: 10.00 Pack years: 5.00 Types: Cigarettes Smokeless tobacco: Never Vaping Use Vaping Use: Never used Substance and Sexual Activity Alcohol use: Never Drug use: Yes Types: Other, Marijuana, Opiates Comment: heroin History reviewed. No pertinent family history. Additional History Comments: None Allergies: Patient has no known allergies. HOME Medications: Prior to Admission medications Medication Sig Start Date End Date Taking? Authorizing Provider baclofen (LIORESAL) 10 MG tablet Take 20 mg TID X 6 doses then 10 mg TID X 9 doses . 07/22/21 Breezy Juan MD cloNIDine HCL (CATAPRES) 0.1 MG tablet Take 1 (one) tablet (0.1 mg total) by mouth 2 (two) times a day for 7 days . 07/22/21 07/29/21 Marc Juan MD famotidine (PEPCID) 20 MG tablet Take 1 (one) tablet (20 mg total) by mouth 2 (two) times a day for10 doses . 07/20/21 07/25/21 Devaughn Tobias MD famotidine (PEPCID) 20 MG tablet Take 1 (one) tablet (20 mg total) by mouth 2 (two) times a day for20 doses . 10/22/21 11/01/21 Devaughn Tobias MD levoFLOXacin (LEVAQUIN) 500 MG tablet Take 1 (one) tablet (500 mg total) by mouth daily . Patient not taking: Reported on 10/22/2021 . 09/30/21 Nikole Hoyt, NOE ondansetron (ZOFRAN) 4 MG tablet Take 1 (one) tablet (4 mg total) by mouth every 8 (eight) hours asneeded for nausea . 12/04/19 01/03/20 Sebas Guerrero MD ondansetron (ZOFRAN) 4 MG tablet Take 1 (one) tablet (4 mg total) by mouth every 6 (six) hours as needed . 10/22/21 Devaughn Tobias MD ondansetron (ZOFRAN) 8 MG tablet Take 0.5 (one-half) tablet (4 mg total) by mouth every 8 (eight) hours as needed . 12/24/21 01/03/22 Nila Bobo MD pantoprazole (PROTONIX) 40 MG tablet Take 1 (one) tablet (40 mg total) by mouth daily . 12/04/19 01/03/20 Sebas Guerrero MD promethazine (PHENERGAN) 25 MG tablet Take 1 (one) tablet (25 mg total) by mouth every 6 (six) hours as needed for nausea . 07/20/21 Devaughn Tobias MD promethazine (PHENERGAN) 25 MG tablet Take 1 (one) tablet (25 mg total) by mouth every 4 (four) hours as needed for nausea . 07/22/21 Marc Juan MD promethazine (PHENERGAN) 25 MG tablet Take 1 (one) tablet (25 mg total) by mouth every 6 (six) hours as needed for nausea . 10/22/21 Devaughn Tobias MD topiramate (TOPAMAX) 25 MG tablet Take 1 (one) tablet (25 mg total) by mouth 2 (two) times a day . 07/22/21 09/20/21 Marc Juan MD HOSPITAL Infusions: sodium chloride 0.9 % sodium chloride 0.9 % sodium chloride 0.9 % 100 mL/hr (06/02/22 1239) HOSPITAL Scheduled Medications: ampicillin-sulbactam (UNAYSN) IVPB 1,500 mg Intravenous Q8H famotidine 20 mg Oral BID melatonin 5 mg Oral Nightly N-acetylcysteine 1,200 mg Oral BID pantoprazole 40 mg Oral Daily potassium chloride SA 40 mEq Oral Q6H sodium chloride (PF) 5 mL Intravenous Q8H ETHEL venlafaxine 150 mg Oral Daily with breakfast HOSPITAL PRN Medications: acetaminophen, naloxone AND [COMPLETED] Nursing Instruct on naloxone, ondansetron OR ondansetron, [COMPLETED] Insert peripheral IV AND Saline lock IV AND sodium chloride (PF) AND sodium chloride 0.9 %, Saline lock IV AND sodium chloride (PF) AND sodium chloride (PF) AND sodium chloride 0.9 %, topiramate OBJECTIVE: Physical Examination: BP (!) 149/98 Pulse 85 Temp 99.1 F (37.3 C) (Oral) Resp (!) 20 Ht 5' 9 Wt 89.8 kg (197 lb 15.6 oz) SpO2 95% BMI 29.24 kg/m Patient is awake and alert. Neck is supple. No carotid bruit. Heart rate and rhythm is regular. Pulses are 2+ symmetrically. Patient is oriented to person, place, month, season, and year. Intact calculation, spelling, concentration, and abstraction. He follows 2 steps command without any difficulty. He has flat affect. Attention and comprehension were intact. Speech is fluent and is spontaneous. Language is intact. Follow simple commands. Pupils are 4 mm equally reactive to light. No ptosis, nystagmus, or visual field cuts. Face is symmetrical and facial sensation is intact. Hearing is grossly intact. Palate moved symmetrical upward. Positive shoulder shrug. Tongue is midline. Gross strength in the upper and lower extremity were 5/5. Normal muscle tone and bulk. No muscle fasciculations. Gross sensory is intact to pinprick, vibration, light touch, and proprioception. No tremors or abnormal movements. Finger to nose test was normal. Deep tendon reflexes are symmetrical. No ankle clonus. Toes are downgoing on plantar stimulation. * Marc Juan MD - 06/01/2022 3:33 PM EST Addiction Medicine Progress note Patient Name: Mayito Forbes Admit Date: 1000702 MR #: [id number] : 1985 Physicians: Soco Paige CNP (Family); No ref. provider found (referring) Principal Problem: Respiratory failure with hypoxia (HCC) 06/01/22 - Seen today in follow up. Tells me that he was let go from [facility] when he asked togo to the ED for vomiting - which he has had episodes of. He had been at [facility] for 3 or 4 days and not had THC. Was seen in [facility] 05/13 so was in the area. Today he says after [place] he drove back to [place] and was at various friends then his . Does not recall anything about New Years Estefany or New Years Day or coming here Tells me like yesterday that he last used in his neck a couple days ago. He did not have suboxone on leaving [facility] He vaguely remembers Natasha changing to gabapentin and does not know I he took any or not Had an episode of weakness and decreased responsiveness this am with mid sized pupils when in the bathroom. No foreign substances known and no visitors and no clothing. Tells me he feels that there is something else going on and [facility] could not find anything Denies pain or withdrawal. Still saying rare meth and mainly fentanyl. No current cravings. No headache but mild nausea 05/31/22 - Patient in 3720. He is groggy and seems to have some memory and timing issues as to his history. 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 Has been to various in and outpatient rehab. Not more thana few days. Was in [facility] earlier this month and left because he felt too sick Seen [facility] 05/07 for vomiting and says was from withdrawal Seen [facility] 05/13 for bronchitis and got Emergency meds but no prescriptions filled. Last filled buprenorphine 8 mg BID x 7 days from [facility] via [facility] on 04/30. Tells me he might have taken some but [place] did not give him any more suboxone. Not sure if [facility] will let him back again and not willing to sign an DEVORA at this time They would not fill on 05/10 and got gabapentin 600 BID for 30 day supply. Repeatedly says he is not sure what happened to them. Tells me came to stay at his yesterday morning and next he know is in here. Adamant that he has been in withdrawal for a few days and no one believes him. Adamant that no meth since back in [place] and not his DOC. Can not explain narcan helping. UDS today shows meth THC and Fentanyl and no buprenorphine. Does not want to go back to treatment and says plan is to be with his GF and get back to outpatient. Does acknowledge would be better in person rather than tele to start. Assessment and Plan Seems possibly more underlying neuro than withdrawal unless possibly from gabapentin. Does not seemthat he has access to anything else and he does not seem to be in a hyper withdrawal state. Could possibly still be prolonged meth crash with episodes seemingly with exertion here. Spoke with Dr Hearn and will get repeat CT and labs and neuro Would still work to keep potassium 4.0 or higher and magnesium 2.0 or higher Will follow if signs of withdrawal needing medical treatment [facility] team will be back tomorrow and will see if his mental status changes and can get back with [facility] for his MAT. QT is back to normal but may need to monitor Substance use history and other relevant social history please see initial consult note and social history section OARRS/NARx reviewed since admission .Discussed with the primary admitting team. Available medical records reviewed. Will follow Disposition: As per primary team. Possibly back with [facility] outpatient but feel inpatient longer term may be needed Assessment Detail: Reason for Consult: Medical management of opioid use disorder. Management of stimulant use disorder. Management of substance use disorder Linking to outpatient services. Counseling services. Subjective: Denies any current opioid withdrawal symptoms For details on substance use history and other relevant social history please see initial consult note and social history section. Social History Socioeconomic History Marital status: Single Tobacco Use Smoking status: Every Day Packs/day: 0.50 Years: 10.00 Pack years: 5.00 Types: Cigarettes Smokeless tobacco: Never Vaping Use Vaping Use: Never used Substance and Sexual Activity Alcohol use: Never Drug use: Yes Types: Other, Marijuana, Opiates Comment: heroin Past Medical History: Diagnosis Date Depression Past Surgical History: Procedure Laterality Date MANDIBLE FRACTURE SURGERY 06/26/2011 History reviewed. No pertinent family history. Psychiatric History: Please see initial consult note for more details. Allergy Information: I have reviewed the patient's allergies. Patient has no known allergies. Home Medications: Outpatient Medications as of 06/01/2022 Medication Sig baclofen (LIORESAL) 10 MG tablet Take 20 mg TID X 6 doses then 10 mg TID X 9 doses . levoFLOXacin (LEVAQUIN) 500 MG tablet Take 1 (one) tablet (500 mg total) by mouth daily . (Patient not taking: Reported on 10/22/2021 .) ondansetron (ZOFRAN) 4 MG tablet Take 1 (one) tablet (4 mg total) by mouth every 6 (six) hours as needed . promethazine (PHENERGAN) 25 MG tablet Take 1 (one) tablet (25 mg total) by mouth every 6 (six) hours as needed for nausea . promethazine (PHENERGAN) 25 MG tablet Take 1 (one) tablet (25 mg total) by mouth every 4 (four) hours as needed for nausea . promethazine (PHENERGAN) 25 MG tablet Take 1 (one) tablet (25 mg total) by mouth every 6 (six) hours as needed for nausea . Review of Systems: The following system(s) were reviewed and pertinent findings noted: Review of Systems All other systems reviewed and are negative. Physical Examination: Vital Signs: BP (!) 142/92 Pulse (!) 100 Temp 99.6 F (37.6 C) (Oral) Resp 18 Ht 5' 9 Wt 89.8 kg (197 lb 15.6 oz) SpO2 98% BMI 29.24 kg/m Physical Exam Vitals and nursing note reviewed. Constitutional: Appearance: He is well-developed. Comments: Resting but aroused by verbal Still soft spoken and nods off after 15 to 20 seconds Knows Tuesday because of the wall sign but not the rest Does remember seeing me in the past but not sure when HENT: Head: Normocephalic. Eyes: General: No scleral icterus. Conjunctiva/sclera: Conjunctivae normal. Pupils: Pupils are equal, round, and reactive to light. Comments: 3mm Dysconjugate gaze but denies diplopia Left does not fully go laterally Cardiovascular: Rate and Rhythm: Normal rate. Pulmonary: Effort: Pulmonary effort is normal. Musculoskeletal: General: Normal range of motion. Cervical back: Normal range of motion. Skin: General: Skin is dry. Neurological: Comments: Had an episode talking with staring straight ahead and limp and not responding I put left arm above head and it fell onto his face Tried right and just missed and he woke up Did not recall staring off Psychiatric: Behavior: Behavior normal. Laboratory and Additional Data Reviewed: Laboratory 06/01/22 4:11 PM Radiology 06/01/22 4:11 PM Cardiology 06/01/22 4:11 PM Medications 06/01/22 4:11 PM Transcriptions 06/01/22 4:11 PM Recent Results (from the past 24 hour(s)) Lactic Acid, Plasma Collection Time: 06/01/22 3:41 AM Result Value Ref Range Lactic Acid 1.1 0.6 - 2.0 mmol/L POC Arterial Blood Gas Panel-Pulm Collection Time: 06/01/22 3:48 AM Result Value Ref Range pH, Arterial 7.46 (H) 7.35 - 7.45 pCO2, Arterial 32.2 (L) 35.0 - 45.0 mm Hg pO2, Arterial 67 (L) 80 - 100 mm Hg Base Excess, Arterial -0.1 -2.0 - 2.0 HCO3, Arterial 23.0 22.0 - 26.0 mmol/L O2 Sat, Arterial 94.0 92.0 - 99.0 % Hemoglobin, Blood Gas 13.7 13.5 - 17.5 g/dL Hematocrit, Calculated 42.1 41.0 - 53.0 % Liter Flow 2 FIO2 28 Specimen Source Radial, left [id number] 85.9 mm Hg ECG 12 Lead Collection Time: 06/01/22 8:07 AM Result Value Ref Range Ventricular Rate 99 BPM Atrial Rate 99 BPM P-R Interval 148 ms QRS Duration 70 ms Q-T Interval 356 ms QTC Calculation (Bezet) 456 ms P [place] 70 degrees R [place] 13 degrees T [place] 12 degrees POC Glucose Collection Time: 06/01/22 9:26 AM Result Value Ref Range Glucose 95 65 - 99 mg/dL POC Arterial Blood Gas Panel-Pulm Collection Time: 06/01/22 11:15 AM Result Value Ref Range pH, Arterial 7.49 (H) 7.35 - 7.45 pCO2, Arterial 27.3 (L) 35.0 - 45.0 mm Hg pO2, Arterial 65 (L) 80 - 100 mm Hg Base Excess, Arterial -1.4 -2.0 - 2.0 HCO3, Arterial 20.6 (L) 22.0 - 26.0 mmol/L O2 Sat, Arterial 94.0 92.0 - 99.0 % Hemoglobin, Blood Gas 14.1 13.5 - 17.5 g/dL Hematocrit, Calculated 43.3 41.0 - 53.0 % Liter Flow 1 FIO2 24 Specimen Source Radial, right [id number] 65.2 mm Hg Assessment Detail: The total time spent for this visit was 70 to 75 minutes. Greater than 50% of the time was spent incounseling and coordination of care. Marc Juan MD This note was dictated using voice-recognition software for expedited communication. Please kindly excuse any typos or mis-recognized words. * Marc Juan MD - 05/31/2022 4:32 PM ESTAssociated Order(s): IP CONSULT TO ADDICTION MEDICINE ADDICTION MEDICINE CONSULT NOTE Patient Name: Mayito Forbes Admit Date: 1000702 MR #: [id number] : 1985 Physicians: Soco Paige CNP (Family); No ref. provider found (referring) Principal Problem: Respiratory failure with hypoxia (HCC) Assessment and Plan: POLYSUBSTANCE USE Tells me primarily IV fentanyl use - however much he can get. Not sure last use and thinks probablydid use after he got to on Tuesday morning (but was in hospital this morning and says was after New Years?) at his GF. Thinks last injected his neck. Will monitor for opiate withdrawal and consider buprenorphine induction knowing he has been in precipitated withdrawal before. Staff can secure chart myself and Tabby Yelena if COWS 8 or higher Meth use. He has said he does then denies. Acting like he might have tweaked meth and be in a meth crash currently. May benefit from adding NAC 1200 BID for THC and Meth and also topiramate 25 to 50 BID if he wakes up and becomes more agitated. Borderline low both TSH and free T seem c/w meth QT was widened in ED and would suggest repeat EKG tomorrow morning and follow Would keep working to have potassium 4.0 or higher and magnesium 2.0 or higher Due to habit adding screening HIV and Hep studies Adding melatonin to help get circadians back on rhythmn Will get SUN team for longer term success but see that they are not in again until Tuesday. Will see if he will be allowed back with [facility] else will try for face to face to start. [place] is close to [place]. Does not want [place] again Assessment Detail: The total time spent for this visit was 80 to 85 minutes. Greater than 50% of the time was spent incounseling and coordination of care. Reviewed multiple current and prior labs Care Everywhere and [facility] and spoke with staff. Reason for Consult: Management of substance use disorder Linking to outpatient services. [facility]. History of Present Illness: Mayito Forbes is a 36 y.o. y/o male presenting from dropped off at ED with c/o OD or Withdrawal Chief Complaint Patient presents with Drug Overdose Patient in 0. He is groggy and seems to have some memory and timing issues as to his history. 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 Has been to various in and outpatient rehab. Not more thana few days. Was in [facility] earlier this month and left because he felt too sick Seen [facility] 05/07 for vomiting and says was from withdrawal Seen [facility] 05/13 for bronchitis and got Emergency meds but no prescriptions filled. Last filled buprenorphine 8 mg BID x 7 days from [facility] via [employer] telehealth on 04/30. Tells me he might have taken some but [place] did not give him any more suboxone. Not sure if [place] will let him back again and not willing to sign an DEVORA at this time They would not fill on 05/10 and got gabapentin 600 BID for 30 day supply. Repeatedly says he is not sure what happened to them. Tells me came to stay at his yesterday morning and next he know is in here. Adamant that he has been in withdrawal for a few days and no one believes him. Adamant that no meth since back in [place] and not his DOC. Can not explain narcan helping. UDS today shows meth THC and Fentanyl and no buprenorphine. Does not want to go back to treatment and says plan is to be with his and get back to outpatient. Does acknowledge would be better in person rather than tele to start. Past Medical History: Diagnosis Date Depression Past Surgical History: Procedure Laterality Date MANDIBLE FRACTURE SURGERY 06/26/2011 History reviewed. No pertinent family history. Social History Socioeconomic History Marital status: Single Tobacco Use Smoking status: Every Day Packs/day: 0.50 Years: 10.00 Pack years: 5.00 Types: Cigarettes Smokeless tobacco: Never Vaping Use Vaping Use: Never used Substance and Sexual Activity Alcohol use: Never Drug use: Yes Types: Other, Marijuana, Opiates Comment: heroin AOD History: No problems updated. Substance(s) of Choice Fentanyl > Meth Treatment history: varied most recently [facility] OP and [facility] IP Longest period of sobriety: couple weeks or so OD history: yes Typical withdrawal symptoms: everything but especially vomiting History of precipitated withdrawal: yes Seizure history: no Psychiatric History: Diagnoses: maybe? Provider: no SI or SA: no Previous Medications Medication Sig baclofen (LIORESAL) 10 MG tablet Take 20 mg TID X 6 doses then 10 mg TID X 9 doses . cloNIDine HCL (CATAPRES) 0.1 MG tablet Take 1 (one) tablet (0.1 mg total) by mouth 2 (two) times a day for 7 days . famotidine (PEPCID) 20 MG tablet Take 1 (one) tablet (20 mg total) by mouth 2 (two) times a day for10 doses . famotidine (PEPCID) 20 MG tablet Take 1 (one) tablet (20 mg total) by mouth 2 (two) times a day for20 doses . levoFLOXacin (LEVAQUIN) 500 MG tablet Take 1 (one) tablet (500 mg total) by mouth daily . (Patient not taking: Reported on 10/22/2021 .) ondansetron (ZOFRAN) 4 MG tablet Take 1 (one) tablet (4 mg total) by mouth every 8 (eight) hours asneeded for nausea . ondansetron (ZOFRAN) 4 MG tablet Take 1 (one) tablet (4 mg total) by mouth every 6 (six) hours as needed . ondansetron (ZOFRAN) 8 MG tablet Take 0.5 (one-half) tablet (4 mg total) by mouth every 8 (eight) hours as needed . pantoprazole (PROTONIX) 40 MG tablet Take 1 (one) tablet (40 mg total) by mouth daily . promethazine (PHENERGAN) 25 MG tablet Take 1 (one) tablet (25 mg total) by mouth every 6 (six) hours as needed for nausea . promethazine (PHENERGAN) 25 MG tablet Take 1 (one) tablet (25 mg total) by mouth every 4 (four) hours as needed for nausea . promethazine (PHENERGAN) 25 MG tablet Take 1 (one) tablet (25 mg total) by mouth every 6 (six) hours as needed for nausea . topiramate (TOPAMAX) 25 MG tablet Take 1 (one) tablet (25 mg total) by mouth 2 (two) times a day . No Known Allergies Review of Systems All other systems reviewed and are negative. Patient Vitals for the past 24 hrs: BP Temp Temp src Pulse Resp SpO2 Height Weight 05/31/22 1522 138/85 99.9 F (37.7 C) Oral (!) 114 17 98 % -- -- 05/31/22 1210 -- -- -- -- -- 95 % -- -- 05/31/22 1026 (!) 141/91 100 F (37.8 C) Axillary (!) 105 (!) 20 96 % -- -- 05/31/22 0848 -- -- -- -- 18 -- -- -- 05/31/22 0806 (!) 146/93 99.5 F (37.5 C) Oral (!) 111 18 94 % 5' 9 89.8 kg (197 lb 15.6 oz) 05/31/22 0753 (!) 137/ -- -- -- -- -- -- -- 05/31/22 0700 (!) 137/92 -- -- (!) 122 (!) 22 95 % -- -- 05/31/22 0630 (!) 154/102 -- -- (!) 114 (!) 25 96 % -- -- 05/31/22 0500 (!) 149/95 -- -- (!) 122 (!) 19 90 % -- -- 05/31/22 0320 -- -- -- -- -- 96 % -- -- 05/31/22 0300 134/82 -- -- (!) 121 (!) 21 94 % -- -- 05/31/22 0230 (!) 153/94 -- -- (!) 112 (!) 25 97 % -- -- 05/31/22 0130 (!) 146/90 -- -- (!) 123 (!) 24 97 % -- -- 05/31/22 0030 (!) 143/83 -- -- (!) 118 (!) 29 96 % -- -- 05/30/22 2300 (!) 155/101 -- -- (!) 124 (!) 34 92 % -- -- 05/30/22 2230 139/84 -- -- (!) 120 (!) 38 95 % -- -- 05/30/22 2200 (!) 155/95 -- -- (!) 118 (!) 36 (!) 89 % -- -- 05/30/225 (!) 138/93 100.1 F (37.8 C) Axillary (!) 116 (!) 41 92 % -- -- 05/30/222029 -- -- -- (!) 111 (!) 39 93 % -- -- 05/30/222017 -- -- -- (!) 118 (!) 31 94 % -- -- 05/30/222014 -- -- -- (!) 117 18 (!) 89 % -- -- 05/30/222008 -- -- -- (!) 113 (!) 34 97 % -- -- 05/30/221955 -- -- -- (!) 112 (!) 37 (!) 86 % -- -- 05/30/221948 -- -- -- (!) 113 (!) 27 (!) 83 % -- -- 05/30/22 1905 (!) 143/96 99.1 F (37.3 C) Axillary (!) 102 16 (!) 88 % -- 81.6 kg (179 lb 14.3 oz) Physical Exam Vitals and nursing note reviewed. Constitutional: Comments: Groggy but arousable Soft spoken with poor eye contact HENT: Mouth/Throat: Comments: Borderline dry Eyes: General: No scleral icterus. Conjunctiva/sclera: Conjunctivae normal. Pupils: Pupils are equal, round, and reactive to light. Comments: 1 to 2 mm in darkened room Cardiovascular: Rate and Rhythm: Tachycardia present. Musculoskeletal: Cervical back: Normal range of motion and neck supple. Comments: Can move arms and legs but weakly Pulmonary: Effort: Pulmonary effort is normal. Skin: General: Skin is dry. Comments: No abscess Neurological: General: No focal deficit present. Comments: Oriented to name and at a [facility] Psychiatric: Comments: Cooperative when urged Allergy Information: I have reviewed the patient's allergies. Patient has no known allergies. Home Medications: Outpatient Medications as of 05/31/2022 Medication Sig baclofen (LIORESAL) 10 MG tablet Take 20 mg TID X 6 doses then 10 mg TID X 9 doses . levoFLOXacin (LEVAQUIN) 500 MG tablet Take 1 (one) tablet (500 mg total) by mouth daily . (Patient not taking: Reported on 10/22/2021 .) ondansetron (ZOFRAN) 4 MG tablet Take 1 (one) tablet (4 mg total) by mouth every 6 (six) hours as needed . promethazine (PHENERGAN) 25 MG tablet Take 1 (one) tablet (25 mg total) by mouth every 6 (six) hours as needed for nausea . promethazine (PHENERGAN) 25 MG tablet Take 1 (one) tablet (25 mg total) by mouth every 4 (four) hours as needed for nausea . promethazine (PHENERGAN) 25 MG tablet Take 1 (one) tablet (25 mg total) by mouth every 6 (six) hours as needed for nausea . Laboratory & Radiographic Imaging (if done): Recent Results (from the past 24 hour(s)) BMP Collection Time: 05/30/22 7:17 PM Result Value Ref Range Sodium 138 135 - 145 mmol/L Potassium 3.8 3.5 - 5.1 mmol/L Chloride 103 98 - 108 mmol/L Bicarbonate 24 21 - 32 mmol/L Anion Gap 15 10 - 20 mmol/L Glucose 126 (H) 65 - 99 mg/dL BUN 13 8 - 25 mg/dL Creatinine 0.85 0.50 - 1.30 mg/dL eGFR 115 >=60 mL/min/1.73 m2 BUN/Creatinine Ratio 15.3 10.0 - 20.0 Calcium 10.2 8.4 - 10.2 mg/dL Hepatic Function Panel (LFT) Collection Time: 05/30/22 7:17 PM Result Value Ref Range Total Protein 9.0 (H) 6.0 - 8.0 g/dL Albumin 4.0 3.2 - 5.2 g/dL Total Bilirubin 0.6 0.0 - 1.3 mg/dL Bilirubin, Direct 0.2 0.0 - 0.4 mg/dL Alkaline Phosphatase 136 40 - 140 U/L AST 24 0 - 45 U/L ALT 31 14 - 65 U/L Lipase Collection Time: 05/30/22 7:17 PM Result Value Ref Range Lipase 76 73 - 393 U/L Troponin Collection Time: 05/30/22 7:17 PM Result Value Ref Range Troponin I <3 <=59 ng/L Troponin I Interpretation Normal CBC Auto Differential Collection Time: 05/30/22 7:17 PM Result Value Ref Range WBC 10.69 4.50 - 11.00 K/mcL RBC 5.66 4.50 - 5.90 M/mcL Hemoglobin 16.2 13.5 - 17.5 g/dL Hematocrit 47.7 41.0 - 53.0 % MCV 84.3 80.0 - 100.0 fL MCH 28.6 26.0 - 34.0 pg MCHC 34.0 31.0 - 37.0 g/dL Platelets 383 150 - 400 K/mcL RDW - CV 13.0 11.6 - 14.8 % MPV 8.6 (L) 9.4 - 12.4 fL Neutrophils 87.2 % Lymphocytes 9.1 % Monocytes 3.0 % Eosinophils 0.0 % Basophils 0.2 % IG Percent 0.50 % Neutrophils Abs 9.33 (H) 1.70 - 7.00 K/mcL Lymphocytes Abs 0.97 0.90 - 4.00 K/mcL Monocytes Abs 0.32 0.30 - 0.90 K/mcL Eosinophils Abs 0.00 0.00 - 0.50 K/mcL Basophils Abs 0.02 0.00 - 0.30 K/mcL IG Absolute 0.05 0.00 - 0.30 K/mcL Nucleated RBC 0.0 % Nucleated RBC Abs 0.00 0.00 - 0.00 K/mcL TSH Collection Time: 05/30/22 7:17 PM Result Value Ref Range TSH 0.47 0.27 - 4.20 mcIU/mL T4, Free Collection Time: 05/30/22 7:17 PM Result Value Ref Range T4, Free 0.9 0.7 - 1.7 ng/dL EKG 12-lead Collection Time: 05/30/22 9:41 PM Result Value Ref Range Ventricular Rate 115 BPM Atrial Rate 115 BPM P-R Interval 152 ms QRS Duration 74 ms Q-T Interval 386 ms QTC Calculation (Bezet) 533 ms P [place] 82 degrees R [place] 45 degrees T [place] 61 degrees COVID-19/Influenza A,B Molecular Collection Time: 05/30/22 9:46 PM Specimen: Nasopharyngeal; Swab Result Value Ref Range SARS-CoV-2 Not Detected Not Detected Influenza A Not Detected Not Detected Influenza B Not Detected Not Detected Basic Metabolic Panel Collection Time: 05/31/22 6:09 AM Result Value Ref Range Sodium 143 135 - 145 mmol/L Potassium 3.7 3.5 - 5.1 mmol/L Chloride 108 98 - 108 mmol/L Bicarbonate 24 21 - 32 mmol/L Anion Gap 15 10 - 20 mmol/L Glucose 123 (H) 65 - 99 mg/dL BUN 13 8 - 25 mg/dL Creatinine 0.71 0.50 - 1.30 mg/dL eGFR 122 >=60 mL/min/1.73 m2 BUN/Creatinine Ratio 18.3 10.0 - 20.0 Calcium 9.5 8.4 - 10.2 mg/dL Magnesium Collection Time: 05/31/22 6:09 AM Result Value Ref Range Magnesium 2.0 1.6 - 2.4 mg/dL Phosphorus Collection Time: 05/31/22 6:09 AM Result Value Ref Range Phosphorus 4.3 2.7 - 4.5 mg/dL CBC Auto Differential Collection Time: 05/31/22 6:09 AM Result Value Ref Range WBC 14.69 (H) 4.50 - 11.00 K/mcL RBC 5.07 4.50 - 5.90 M/mcL Hemoglobin 14.4 13.5 - 17.5 g/dL Hematocrit 43.0 41.0 - 53.0 % MCV 84.8 80.0 - 100.0 fL MCH 28.4 26.0 - 34.0 pg MCHC 33.5 31.0 - 37.0 g/dL Platelets 367 150 - 400 K/mcL RDW - CV 13.2 11.6 - 14.8 % MPV 8.8 (L) 9.4 - 12.4 fL Neutrophils 86.3 % Lymphocytes 8.2 % Monocytes 4.7 % Eosinophils 0.1 % Basophils 0.2 % IG Percent 0.50 % Neutrophils Abs 12.68 (H) 1.70 - 7.00 K/mcL Lymphocytes Abs 1.21 0.90 - 4.00 K/mcL Monocytes Abs 0.69 0.30 - 0.90 K/mcL Eosinophils Abs 0.01 0.00 - 0.50 K/mcL Basophils Abs 0.03 0.00 - 0.30 K/mcL IG Absolute 0.07 0.00 - 0.30 K/mcL Nucleated RBC 0.0 % Nucleated RBC Abs 0.00 0.00 - 0.00 K/mcL Urinalysis Collection Time: 05/31/22 3:21 PM Result Value Ref Range Color, Urine Yellow Colorless, Yellow Clarity, Urine Clear Clear Specific [place] 1.045 (H) 1.005 - 1.025 pH, Urine 6.5 5.0 - 7.0 Protein, Urine 30 (A) Negative mg/dL Glucose, Urine Negative Negative mg/dL Ketones, Urine >=80 (A) Negative mg/dL Bilirubin, Urine Negative Negative Urobilinogen, Urine 2.0 (A) <2.0 mg/dL Blood, Urine Negative Negative Nitrite, Urine Negative Negative Leukocyte Esterase, Urine Negative Negative WBCs, Urine 1 0 - 5 /hpf RBCs, Urine 3 0 - 3 /hpf Bacteria, Urine None Seen None Seen /hpf Squamous Epithelial <1 0 - 4 /hpf Amorphous Crystals Few (A) None Seen, Rare /hpf Mucus, Urine Rare None Seen, Rare /lpf Urine Drug Screen Collection Time: 05/31/22 3:21 PM Result Value Ref Range Amphetamine Screen, Urine Presumptive Positive (A) None Detected Barbiturate Screen, Urine None Detected None Detected Benzodiazepine Screen, Urine None Detected None Detected Cannabinoid Screen, Urine Presumptive Positive (A) None Detected Cocaine, Screen Urine None Detected None Detected Methadone Screen, Urine None Detected None Detected Opiate Screen, Urine None Detected None Detected Oxycodone Screen, Urine None Detected None Detected Buprenorphine, Ur None Detected None Detected Fentanyl, Ur Presumptive Positive (A) None Detected Lab Results Component Value Date AMPHUR Presumptive Positive (A) 05/31/2022 BARBUR None Detected 05/31/2022 BENZUR None Detected 05/31/2022 THCUR Presumptive Positive (A) 05/31/2022 COCAINESUR None Detected 05/31/2022 URMETH None Detected 05/31/2022 OPIATEUR None Detected 05/31/2022 UROXYCODONE None Detected 05/31/2022 FENTANYLUR Presumptive Positive (A) 05/31/2022 BUPUR None Detected 05/31/[address] Abd Pelvis with IV contrast Final Result 1. No aortic dissection, pulmonary arterial embolism, or other acute findings in the chest, abdomenor pelvis. 2. Dense stool moderately distending the rectal vault. This could be normal or reflect mild fecal impaction. Workstation ID: [id number] CT Head Or Brain Without Contrast Final Result No acute intracranial abnormality. FOLLOW-UP: Follow-up as clinically indicated. Workstation ID: [id number] XR Chest 1 View Final Result 1. Left basilar atelectasis. No focal consolidation or effusion. Workstation ID: [id number] Marc Juan MD This note was dictated using voice-recognition software for expedited communication. Please kindly excuse any typos or mis-recognized words. documented in this [id number] History of Present illness Narrative* González Hearn MD - 06/03/2022 11:35 AM EST [facility] [place] Assessment and Plan Mayito Forbes is a 36 y.o. male patient of Soco Paige CNP with history of substance abuse, GERD, and hyperemesis who presented to [facility] with withdrawal symptoms. Acute toxic encephalopathy POA- improving U tox was positive for amphetamine, cannabinoid and fentanyl Acute hypoxic respiratory failure POA Likely secondary to mild aspiration, vomiting, and opiate overdose CXR reviewed, left basilar atelectasis without focal consolidation or effusion Continue Unasyn. On 2 L nasal cannula, continue to wean as tolerated. CTPA reviewed. No dissection, no PE or any other acute findings. Opiate overdose, undetermined intent, initial encounter POA Multidrug use Received multiple doses of Narcan in ER Narcan ordered as needed, no indication for infusion Dr Juan following, notes reviewed. Still remains slightly groggy states that he was on Effexor and gabapentin outpatient. We will holdoff on gabapentin given his episode of decreased responsiveness yesterday for Resume Effexor. Dr Juan to re-evalaute. Patient is asking about Vivitrol. EEG reviewed-does not have clear epileptiform discharges however intermittent background slowing consistent with frontal intermittent rhythmic delta activity. Neurology signed off Nausea and vomiting -resolved Okay for diet today. Aspiration precautions. Hypokalemia Replace potassium per repeat labs tomorrow. Hypertension POA BP elevated on admission Pharmacy Hx for Catapres, only written for 7 days Given age and lack of history for essential hypertension, monitor for now As needed hydralazine for SBP greater than 165 mmHg Nicotine dependence, cigarette smoker More than 3 minutes were spent attempting to discussed the risks of continued use and benefits of cessation Acute confusion - resolved Patient had rapid response on 06/01/2022 for acute onset confusion and decreased responsiveness On arrival patient was alert but minimally responsive, pupils were dilated not constricted. Give 1 dose of Narcan regardless due to history of opiate overdose and multidrug use Blood pressure was stable. Patient was slightly tachycardic, will give 1 L IV fluid bolus ABGs reviewed, showing hypocapnia Family Contact Information Code Status: Full Code Quality Measures DVT Prophylaxis: lovenox Akhtar Catheter: NOne Disposition Discharge Location: Home Estimated Discharge Date: TBD Outpatient Testing: None. Subjective No acute overnight events, patient was much more alert and oriented than before. He is asking aboutVivitrol injection while he is here. We will have addiction medicine evaluate the patient. Objective BP (!) 158/102 Pulse 76 Temp 98.3 F (36.8 C) (Oral) Resp 18 Ht 5' 9 Wt 89.8 kg (197 lb 15.6 oz) SpO2 93% BMI 29.24 kg/m Physical Examination General Appearance: alert; chronically ill appearing; in no acute distress HEENT: Head- normocephalic; Eyes- EOMI, sclera anicteric; Ears- hearing intact; Nose- no nasal discharge; Throat- mucous membranes moist Cardiovascular: regular rate and rhythm; normal S1, S2; no murmurs, rubs, clicks or gallops; no peripheral edema Respiratory: lungs clear to auscultation; without wheezes, rales or rhonchi; on nasal cannula Abdomen: soft, non-tender, non-distended; positive bowel sounds Neurological: oriented x 3; normal speech; no focal findings or movement disorder noted Musculoskeletal: no significant deformity or tenderness to palpation Skin: normal coloration; no obvious rashes, lesions or skin breakdown Psych: Decreased responsiveness Results/Medications Reviewed 06/03/2022 11:35 AM Laboratory, Microbiology, Radiology, Cardiology, and Medications * Taz Cuellar MD - 06/02/2022 1:11 PM EST [facility] [place] Assessment and Plan Mayito Forbes is a 36 y.o. male patient of Soco Paige CNP with history of substance abuse, GERD, and hyperemesis who presented to [facility] with withdrawal symptoms. Acute toxic encephalopathy POA- improving U tox was positive for amphetamine, cannabinoid and fentanyl Acute hypoxic respiratory failure POA Likely secondary to mild aspiration, vomiting, and opiate overdose CXR reviewed, left basilar atelectasis without focal consolidation or effusion Continue Unasyn. Wean oxygen as able today. CTPA reviewed. No dissection, no PE or any other acute findings. Opiate overdose, undetermined intent, initial encounter POA Multidrug use Received multiple doses of Narcan in ER Narcan ordered as needed, no indication for infusion Dr Juan following, notes reviewed. Still remains slightly groggy states that he was on Effexor and gabapentin outpatient. We will holdoff on gabapentin given his episode of decreased responsiveness yesterday for Resume Effexor. Dr Juan to re-evalaute. EEG reviewed-does not have clear epileptiform discharges however intermittent background slowing consistent with frontal intermittent rhythmic delta activity. Nausea and vomiting -resolved Okay for diet today. Aspiration precautions. Hypokalemia Replace potassium per repeat labs tomorrow. Hypertension POA BP elevated on admission Pharmacy Hx for Catapres, only written for 7 days Given age and lack of history for essential hypertension, monitor for now As needed hydralazine for SBP greater than 165 mmHg Nicotine dependence, cigarette smoker More than 3 minutes were spent attempting to discussed the risks of continued use and benefits of cessation Acute confusion - resolved Patient had rapid response on 06/01/2022 for acute onset confusion and decreased responsiveness On arrival patient was alert but minimally responsive, pupils were dilated not constricted. Give 1 dose of Narcan regardless due to history of opiate overdose and multidrug use Blood pressure was stable. Patient was slightly tachycardic, will give 1 L IV fluid bolus ABGs reviewed, showing hypocapnia Family Contact Information Code Status: Full Code Quality Measures DVT Prophylaxis: lovenox Akhtar Catheter: NOne Disposition Discharge Location: Home Estimated Discharge Date: TBD Outpatient Testing: None. Subjective No acute events overnight. Remains slightly groggy but improved from yesterday. Teary eyes this morning. Objective BP (!) 149/98 Pulse 85 Temp 99.1 F (37.3 C) (Oral) Resp (!) 20 Ht 5' 9 Wt 89.8 kg (197 lb 15.6 oz) SpO2 95% BMI 29.24 kg/m Physical Examination General Appearance: alert; chronically ill appearing; in no acute distress HEENT: Head- normocephalic; Eyes- EOMI, sclera anicteric; Ears- hearing intact; Nose- no nasal discharge; Throat- mucous membranes moist Cardiovascular: regular rate and rhythm; normal S1, S2; no murmurs, rubs, clicks or gallops; no peripheral edema Respiratory: lungs clear to auscultation; without wheezes, rales or rhonchi; on nasal cannula Abdomen: soft, non-tender, non-distended; positive bowel sounds Neurological: unable to assess orientation; normal speech; no focal findings or movement disorder noted Musculoskeletal: no significant deformity or tenderness to palpation Skin: normal coloration; no obvious rashes, lesions or skin breakdown Psych: Decreased responsiveness Results/Medications Reviewed 06/02/2022 1:11 PM Laboratory, Microbiology, Radiology, Cardiology, and Medications * González Hearn MD - 06/01/2022 12:13 PM EST [facility] [place]GRESS [place] Assessment and Plan Mayito Forbes is a 36 y.o. male patient of Soco Paige CNP with history of substance abuse, GERD, and hyperemesis who presented to [facility] with withdrawal symptoms. Acute toxic encephalopathy POA U tox was positive for amphetamine, cannabinoid and fentanyl Acute hypoxic respiratory failure POA Likely secondary to mild aspiration, vomiting, and opiate overdose CXR reviewed, left basilar atelectasis without focal consolidation or effusion On Unasyn empirically for aspiration pneumonia. On [address] chest did not show any acute abnormality Continue supplemental oxygen, titrate per respiratory therapy protocol Opiate overdose, undetermined intent, initial encounter POA Multidrug use Received multiple doses of Narcan in ER Narcan ordered as needed, no indication for infusion Consult addiction medicine Nausea and vomiting Antiemetics as needed Aspiration precautions N.p.o. except sips with meds Continue IV maintenance fluids Hypertension POA BP elevated on admission Pharmacy Hx for Catapres, only written for 7 days Given age and lack of history for essential hypertension, monitor for now As needed hydralazine for SBP greater than 165 mmHg Nicotine dependence, cigarette smoker More than 3 minutes were spent attempting to discussed the risks of continued use and benefits of cessation Acute confusion: Patient had rapid response on 06/01/2022 for acute onset confusion and decreased responsiveness On arrival patient was alert but minimally responsive, pupils were dilated not constricted. Give 1 dose of Narcan regardless due to history of opiate overdose and multidrug use Blood pressure was stable. Patient was slightly tachycardic, will give 1 L IV fluid bolus ABGs reviewed, showing hypocapnia Family Contact Information Code Status: Full Code Quality Measures DVT Prophylaxis: lovenox Akhtar Catheter: NOne Disposition Discharge Location: Home Estimated Discharge Date: TBD Outpatient Testing: None. Subjective The patient is new to me today. All labs, imaging, and network relations consultant notes were personally reviewed Patient had rapid response this morning due to decreased responsiveness. Please review note above. Objective BP (!) 148/93 Pulse (!) 103 Temp 100 F (37.8 C) (Oral) Resp (!) 23 Ht 5' 9 Wt 89.8 kg (197 lb 15.6 oz) SpO2 92% BMI 29.24 kg/m Physical Examination General Appearance: somnolent; chronically ill appearing; in no acute distress HEENT: Head- normocephalic; Eyes- EOMI, sclera anicteric; Ears- hearing intact; Nose- no nasal discharge; Throat- mucous membranes moist Cardiovascular: regular rate and rhythm; normal S1, S2; no murmurs, rubs, clicks or gallops; no peripheral edema Respiratory: lungs clear to auscultation; without wheezes, rales or rhonchi; on nasal cannula Abdomen: soft, non-tender, non-distended; positive bowel sounds Neurological: unable to assess orientation; normal speech; no focal findings or movement disorder noted Musculoskeletal: no significant deformity or tenderness to palpation Skin: normal coloration; no obvious rashes, lesions or skin breakdown Psych: Decreased responsiveness Results/Medications Reviewed 06/01/2022 12:13 PM Laboratory, Microbiology, Radiology, Cardiology, and Medications * Ba Harvey - 06/01/2022 9:30 AM EST Spiritual Care Progress Note Completed by: Ba Harvey Person(s) Present During this Visit: Patient Not Available, Healthcare Provider Time Spent in Direct Patient Care: 15 Narrative: [facility] 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 Patient being attended to by medical staff upon arrival. No family present at time of visit. Pastoral Care team will remain available to support patient and family PRN. Patient's Response to Pastoral Care: Timing of Visit Not Optimal. 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 Visit Rescheduled Visit Planning PRN Spiritual Assessment Unable to Assess during this visit Druze Assessment Unable to Assess during this visit Family assessment provided? Unable to asess during this visit documented in this [id number] Consult note* Hal Clarke MD - 06/02/2022 2:30 PM ESTAssociated Order(s): IP CONSULT TO NEUROLOGY Neurology Inpatient Consult [facility] 06/02/2022 Patient: Mayito Forbes Date of : 1985 (36 y.o.) Referring Provider: Refer to consult order in electronic medical record PCP: Soco Paige CNP ASSESSMENT: 36 y.o. male presented to [facility] on 05/30/2022 with decreased responsiveness and verbal output. Patient ex-girlfriend described he has been withdrawing from heroin use. He was described to be tremulous, nauseous and vomiting while in the ER. He has no history of seizure and no clear description of generalized tonic-clonic seizure. No head injury, TIA or stroke. EEG showed no epileptiform discharges. Impression: Encephalopathy secondary to drug use Substance abuse Anxiety/depression Hypertension BPH PLAN: Monitor for any clinical tonic-clonic seizure. No driving or operating motor vehicles. Discontinue substance use and tobacco use. Monitor for any worsening anxiety and depression. Follow-up with addiction medicine. No clear indication for anticonvulsant at this time. No further suggestion at this time. Will sign off. Please call if needed. I have personally reviewed/visualized the patient's images, as documented above. I have personally reviewed the patient's labs, procedure and ancillary testing as listed above. Impression, plan and suggestions was discussed with the patient/family/caregivers. Questions and concerns were discussed and addressed. This note was created in part using a speech-recognition software. Timed code: 80 minutes Includes time preparation to see the patient (reviewing previous history, notes, exam, test, procedure, and medications); Obtaining history from the patient/family/caregivers; performing face to faceevaluation and examination; ordering medications, tests, or procedures; referring and communicatingwith other healthcare professionals; update, counseling and education of the patient/family/caregiver; independently interpreting results (Tests, labs, imaging) and communicating results to the patient/family/caregiver; coordination of care; documenting clinical information in the electronic and other health records. Encephalopathy and drug use Answered questions and rediscussed plan at length with Patient. DIAGNOSTIC TESTING SUMMARY: Pending Lab and Radiology Results Order Current Status Phosphatidylethanol Confirmation, Blood In process Resulted Testing: (MRI/CT/XR, EEG, EMG, CSF, Cardiac, Labs) SUBJECTIVE: Chief Complaint/Reason for Consult: Seizure Informant(s): Patient, ex-girlfriend, Care Team/Chart History of Present Illness: Mayito Forbes is a 36 y.o. male who was admitted because of decreased responsiveness. His girlfriend found him in the bathroom and will not talk to her. He is awake and no tonic-clonic seizure automatism was noted. No recent falls or injury. He recently stopped using IV heroine and according to the ex- girlfriend seems to be withdrawing. He denies any drug overdose. He has previous history of drug overdose where he was comatose and limp. There is no history of recent head injury, TIA, stroke,febrile seizure, childhood seizure, or seizures. Past medical history include hypertension, BPH, anxiety and depression. He smokes tobacco and uses IV heroin. He denies any recreational drug use or alcohol. Family history is unknown. Review of Systems: All systems reviewed and negative except pertinent positives and negatives documented in the History of Present Illness (HPI). History: Past Medical History: Diagnosis Date Depression Past Surgical History: Procedure Laterality Date MANDIBLE FRACTURE SURGERY 06/26/2011 Social History Socioeconomic History Marital status: Single Tobacco Use Smoking status: Every Day Packs/day: 0.50 Years: 10.00 Pack years: 5.00 Types: Cigarettes Smokeless tobacco: Never Vaping Use Vaping Use: Never used Substance and Sexual Activity Alcohol use: Never Drug use: Yes Types: Other, Marijuana, Opiates Comment: heroin History reviewed. No pertinent family history. Additional History Comments: None Allergies: Patient has no known allergies. HOME Medications: Prior to Admission medications Medication Sig Start Date End Date Taking? Authorizing Provider baclofen (LIORESAL) 10 MG tablet Take 20 mg TID X 6 doses then 10 mg TID X 9 doses . 07/22/21 Breezy Juan MD cloNIDine HCL (CATAPRES) 0.1 MG tablet Take 1 (one) tablet (0.1 mg total) by mouth 2 (two) times a day for 7 days . 07/22/21 07/29/21 Marc Juan MD famotidine (PEPCID) 20 MG tablet Take 1 (one) tablet (20 mg total) by mouth 2 (two) times a day for10 doses . 07/20/21 07/25/21 Devaughn Tobias MD famotidine (PEPCID) 20 MG tablet Take 1 (one) tablet (20 mg total) by mouth 2 (two) times a day for20 doses . 10/22/21 11/01/21 Devaughn Tobias MD levoFLOXacin (LEVAQUIN) 500 MG tablet Take 1 (one) tablet (500 mg total) by mouth daily . Patient not taking: Reported on 10/22/2021 . 09/30/21 Nikole Hoyt, NOE ondansetron (ZOFRAN) 4 MG tablet Take 1 (one) tablet (4 mg total) by mouth every 8 (eight) hours asneeded for nausea . 12/04/19 01/03/20 Sebas Guerrero MD ondansetron (ZOFRAN) 4 MG tablet Take 1 (one) tablet (4 mg total) by mouth every 6 (six) hours as needed . 10/22/21 Devaughn Tobias MD ondansetron (ZOFRAN) 8 MG tablet Take 0.5 (one-half) tablet (4 mg total) by mouth every 8 (eight) hours as needed . 12/24/21 01/03/22 Nila Bobo MD pantoprazole (PROTONIX) 40 MG tablet Take 1 (one) tablet (40 mg total) by mouth daily . 12/04/19 01/03/20 Sebas Guerrero MD promethazine (PHENERGAN) 25 MG tablet Take 1 (one) tablet (25 mg total) by mouth every 6 (six) hours as needed for nausea . 07/20/21 Devaughn Tobias MD promethazine (PHENERGAN) 25 MG tablet Take 1 (one) tablet (25 mg total) by mouth every 4 (four) hours as needed for nausea . 07/22/21 Marc Juan MD promethazine (PHENERGAN) 25 MG tablet Take 1 (one) tablet (25 mg total) by mouth every 6 (six) hours as needed for nausea . 10/22/21 Devaughn Tobias MD topiramate (TOPAMAX) 25 MG tablet Take 1 (one) tablet (25 mg total) by mouth 2 (two) times a day . 07/22/21 09/20/21 Marc Juan MD HOSPITAL Infusions: sodium chloride 0.9 % sodium chloride 0.9 % sodium chloride 0.9 % 100 mL/hr (06/02/22 1239) HOSPITAL Scheduled Medications: ampicillin-sulbactam (UNAYSN) IVPB 1,500 mg Intravenous Q8H famotidine 20 mg Oral BID melatonin 5 mg Oral Nightly N-acetylcysteine 1,200 mg Oral BID pantoprazole 40 mg Oral Daily potassium chloride SA 40 mEq Oral Q6H sodium chloride (PF) 5 mL Intravenous Q8H ETHEL venlafaxine 150 mg Oral Daily with breakfast HOSPITAL PRN Medications: acetaminophen, naloxone AND [COMPLETED] Nursing Instruct on naloxone, ondansetron OR ondansetron, [COMPLETED] Insert peripheral IV AND Saline lock IV AND sodium chloride (PF) AND sodium chloride 0.9 %, Saline lock IV AND sodium chloride (PF) AND sodium chloride (PF) AND sodium chloride 0.9 %, topiramate OBJECTIVE: Physical Examination: BP (!) 149/98 Pulse 85 Temp 99.1 F (37.3 C) (Oral) Resp (!) 20 Ht 5' 9 Wt 89.8 kg (197 lb 15.6 oz) SpO2 95% BMI 29.24 kg/m Patient is awake and alert. Neck is supple. No carotid bruit. Heart rate and rhythm is regular. Pulses are 2+ symmetrically. Patient is oriented to person, place, month, season, and year. Intact calculation, spelling, concentration, and abstraction. He follows 2 steps command without any difficulty. He has flat affect. Attention and comprehension were intact. Speech is fluent and is spontaneous. Language is intact. Follow simple commands. Pupils are 4 mm equally reactive to light. No ptosis, nystagmus, or visual field cuts. Face is symmetrical and facial sensation is intact. Hearing is grossly intact. Palate moved symmetrical upward. Positive shoulder shrug. Tongue is midline. Gross strength in the upper and lower extremity were 5/5. Normal muscle tone and bulk. No muscle fasciculations. Gross sensory is intact to pinprick, vibration, light touch, and proprioception. No tremors or abnormal movements. Finger to nose test was normal. Deep tendon reflexes are symmetrical. No ankle clonus. Toes are downgoing on plantar stimulation. [id number] Procedure note* Hal Clarke MD - 06/02/2022 12:09 PM ESTAssociated Order(s): EEG (STANDARD) [facility] EEG Report Reason for EEG: Seizures Summary: This is a 16 channel digital EEG recording. There is a moderately well-developed, moderately well-organized background activity with the dominant rhythm of 8 Hz. There are intermittent rhythmic generalized slowing with 3 Hz activity maximal inthe frontal area (FIRDA). Hyperventilation and photic stimulations were not done. No clear sleep patterns are noted. No clear epileptiform discharges were seen. Impression: This is an abnormal EEG due to presence of intermittent background slowing consistent with frontal intermittent rhythmic delta activity (FIRDA) suggesting a mild to moderate degree of generalized nonspecific neurophysiological disturbance. No clear epileptiform discharges or ictal activity was seen. [facility] Work Phone: [phone]) 183-847501-04-2023 Procedure note* Hal Clarke MD - 06/02/2022 12:09 PM ESTAssociated Order(s): EEG (STANDARD) [facility] EEG Report Reason for EEG: Seizures Summary: This is a 16 channel digital EEG recording. There is a moderately well-developed, moderately well-organized background activity with the dominant rhythm of 8 Hz. There are intermittent rhythmic generalized slowing with 3 Hz activity maximal inthe frontal area (FIRDA). Hyperventilation and photic stimulations were not done. No clear sleep patterns are noted. No clear epileptiform discharges were seen. Impression: This is an abnormal EEG due to presence of intermittent background slowing consistent with frontal intermittent rhythmic delta activity (FIRDA) suggesting a mild to moderate degree of generalized nonspecific neurophysiological disturbance. No clear epileptiform discharges or ictal activity was seen. documented in this [id number] Note* Plan of Care - Charity Pickett RN - 06/02/2022 11:31 AM EST Problem: Actual or potential alteration in health Goal: Absence of healthcare acquired conditions Outcome: Partially Met Goal: Knowledge of Interdisciplinary Plan of Care Outcome: Partially Met Goal: Knowledge of Enviroment Outcome: Partially Met [id number] Miscellaneous Notes* Plan of Care - Charity Pickett RN - 06/02/2022 11:31 AM EST Problem: Actual or potential alteration in health Goal: Absence of healthcare acquired conditions Outcome: Partially Met Goal: Knowledge of Interdisciplinary Plan of Care Outcome: Partially Met Goal: Knowledge of Enviroment Outcome: Partially Met * Plan of Care - Radha Grady RN - 06/02/2022 12:31 AM EST Problem: Actual or potential alteration in health Goal: Absence of healthcare acquired conditions Outcome: Partially Met Goal: Knowledge of Interdisciplinary Plan of Care Outcome: Partially Met Goal: Knowledge of Enviroment Outcome: Partially Met * CDI Query - González Hearn MD - 06/01/2022 1:21 PM EST Noted documentation of Acute encephalopathy POA. Clinical Indicators: H&P: Altered level of consciousness, resolved s/p Narcan and oxygen. H&P: Opiate overdose...Received multiple doses of Narcan in ER, Narcan ordered as needed. [facility] progress note 06/01: U tox was positive for amphetamine, cannabinoid and fentanyl. ER nurse note: Patients O2 stats begin to drop. Patient placed on O2 and given 2 mg Narcan and immediately woke up and began vomiting. Please specify the diagnosis that most accurately reflects the patient s mental status. For Example: Acute toxic encephalopathy POA Acute encephalopathy due to drugs POA Acute metabolic encephalopathy POA Encephalopathy (please specify type) Other (please specify) Unable to determine Thank you, UGO Farmer, RN Clinical Grocery Team Member [phone] After business hours you may contact Laurita Sandy at [phone] (Weekdays until 10 PM and weekends 8 AM - 10 PM) * Plan of Care - Cass Reeder RN - 06/01/2022 7:55 AM EST Problem: Actual or potential alteration in health Goal: Absence of healthcare acquired conditions Outcome: Partially Met Goal: Knowledge of Interdisciplinary Plan of Care Outcome: Partially Met Goal: Knowledge of Enviroment Outcome: Partially Met * Plan of Care - Cass Reeder RN - 05/31/2022 8:52 AM EST Problem: Actual or potential alteration in health Goal: Absence of healthcare acquired conditions Outcome: Partially Met Goal: Knowledge of Interdisciplinary Plan of Care Outcome: Partially Met Goal: Knowledge of Enviroment Outcome: Partially Met documented in this [id number] Note* Plan of Care - Radha Grady RN - 06/02/2022 12:31 AM EST Problem: Actual or potential alteration in health Goal: Absence of healthcare acquired conditions Outcome: Partially Met Goal: Knowledge of Interdisciplinary Plan of Care Outcome: Partially Met Goal: Knowledge of Enviroment Outcome: Partially Met [id number] Consult note* Marc Juan MD - 06/01/2022 3:33 PM EST Addiction Medicine Progress note Patient Name: Mayito Forbes Admit Date: 1000702 MR #: [id number] : 1985 Physicians: Soco Paige CNP (Family); No ref. provider found (referring) Principal Problem: Respiratory failure with hypoxia (HCC) 06/01/22 - Seen today in follow up. Tells me that he was let go from [facility] when he asked togo to the ED for vomiting - which he has had episodes of. He had been at [facility] for 3 or 4 days and not had THC. Was seen in [facility] 05/13 so was in the area. Today he says after [place] he drove back to [place] and was at various friends then his GF. Does not recall anything about New Years Estefany or New Years Day or coming here Tells me like yesterday that he last used in his neck a couple days ago. He did not have suboxone on leaving [facility] He vaguely remembers Natasha changing to gabapentin and does not know I he took any or not Had an episode of weakness and decreased responsiveness this am with mid sized pupils when in the bathroom. No foreign substances known and no visitors and no clothing. Tells me he feels that there is something else going on and [facility] could not find anything Denies pain or withdrawal. Still saying rare meth and mainly fentanyl. No current cravings. No headache but mild nausea 05/31/22 - Patient in 3720. He is groggy and seems to have some memory and timing issues as to his history. 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 Has been to various in and outpatient rehab. Not more thana few days. Was in [facility] earlier this month and left because he felt too sick Seen [facility] 05/07 for vomiting and says was from withdrawal Seen [facility] 05/13 for bronchitis and got Emergency meds but no prescriptions filled. [place] [facility] 8 mg B[facility] x [facility] [place] [employer] [facility] [place]. Tells me he might have taken some but [place] did not give him any more suboxone. Not sure if [facility] will let him back again and not willing to sign an DEVORA at this time They would not fill on 05/10 and got gabapentin 600 BID for 30 day supply. Repeatedly says he is not sure what happened to them. Tells me came to stay at his GF yesterday morning and next he know is in here. Adamant that he has been in withdrawal for a few days and no one believes him. Adamant that no meth since back in [place] and not his DOC. Can not explain narcan helping. UDS today shows meth THC and Fentanyl and no buprenorphine. Does not want to go back to treatment and says plan is to be with his GF and get back to outpatient. Does acknowledge would be better in person rather than tele to start. Assessment and Plan Seems possibly more underlying neuro than withdrawal unless possibly from gabapentin. Does not seemthat he has access to anything else and he does not seem to be in a hyper withdrawal state. Could possibly still be prolonged meth crash with episodes seemingly with exertion here. Spoke with Dr Hearn and will get repeat CT and labs and neuro Would still work to keep potassium 4.0 or higher and magnesium 2.0 or higher Will follow if signs of withdrawal needing medical treatment [facility] team will be back tomorrow and will see if his mental status changes and can get back with [facility] for his MAT. QT is back to normal but may need to monitor Substance use history and other relevant social history please see initial consult note and social history section OARRS/NARx reviewed since admission .Discussed with the primary admitting team. Available medical records reviewed. Will follow Disposition: As per primary team. Possibly back with [place] outpatient but feel inpatient longer term may be needed Assessment Detail: Reason for Consult: Medical management of opioid use disorder. Management of stimulant use disorder. Management of substance use disorder Linking to outpatient services. Counseling services. Subjective: Denies any current opioid withdrawal symptoms For details on substance use history and other relevant social history please see initial consult note and social history section. Social History Socioeconomic History Marital status: Single Tobacco Use Smoking status: Every Day Packs/day: 0.50 Years: 10.00 Pack years: 5.00 Types: Cigarettes Smokeless tobacco: Never Vaping Use Vaping Use: Never used Substance and Sexual Activity Alcohol use: Never Drug use: Yes Types: Other, Marijuana, Opiates Comment: heroin Past Medical History: Diagnosis Date Depression Past Surgical History: Procedure Laterality Date MANDIBLE FRACTURE SURGERY 06/26/2011 History reviewed. No pertinent family history. Psychiatric History: Please see initial consult note for more details. Allergy Information: I have reviewed the patient's allergies. Patient has no known allergies. Home Medications: Outpatient Medications as of 06/01/2022 Medication Sig baclofen (LIORESAL) 10 MG tablet Take 20 mg TID X 6 doses then 10 mg TID X 9 doses . levoFLOXacin (LEVAQUIN) 500 MG tablet Take 1 (one) tablet (500 mg total) by mouth daily . (Patient not taking: Reported on 10/22/2021 .) ondansetron (ZOFRAN) 4 MG tablet Take 1 (one) tablet (4 mg total) by mouth every 6 (six) hours as needed . promethazine (PHENERGAN) 25 MG tablet Take 1 (one) tablet (25 mg total) by mouth every 6 (six) hours as needed for nausea . promethazine (PHENERGAN) 25 MG tablet Take 1 (one) tablet (25 mg total) by mouth every 4 (four) hours as needed for nausea . promethazine (PHENERGAN) 25 MG tablet Take 1 (one) tablet (25 mg total) by mouth every 6 (six) hours as needed for nausea . Review of Systems: The following system(s) were reviewed and pertinent findings noted: Review of Systems All other systems reviewed and are negative. Physical Examination: Vital Signs: BP (!) 142/92 Pulse (!) 100 Temp 99.6 F (37.6 C) (Oral) Resp 18 Ht 5' 9 Wt 89.8 kg (197 lb 15.6 oz) SpO2 98% BMI 29.24 kg/m Physical Exam Vitals and nursing note reviewed. Constitutional: Appearance: He is well-developed. Comments: Resting but aroused by verbal Still soft spoken and nods off after 15 to 20 seconds Knows Tuesday because of the wall sign but not the rest Does remember seeing me in the past but not sure when HENT: Head: Normocephalic. Eyes: General: No scleral icterus. Conjunctiva/sclera: Conjunctivae normal. Pupils: Pupils are equal, round, and reactive to light. Comments: 3mm Dysconjugate gaze but denies diplopia Left does not fully go laterally Cardiovascular: Rate and Rhythm: Normal rate. Pulmonary: Effort: Pulmonary effort is normal. Musculoskeletal: General: Normal range of motion. Cervical back: Normal range of motion. Skin: General: Skin is dry. Neurological: Comments: Had an episode talking with staring straight ahead and limp and not responding I put left arm above head and it fell onto his face Tried right and just missed and he woke up Did not recall staring off Psychiatric: Behavior: Behavior normal. Laboratory and Additional Data Reviewed: Laboratory 06/01/22 4:11 PM Radiology 06/01/22 4:11 PM Cardiology 06/01/22 4:11 PM Medications 06/01/22 4:11 PM Transcriptions 06/01/22 4:11 PM Recent Results (from the past 24 hour(s)) Lactic Acid, Plasma Collection Time: 06/01/22 3:41 AM Result Value Ref Range Lactic Acid 1.1 0.6 - 2.0 mmol/L POC Arterial Blood Gas Panel-Pulm Collection Time: 06/01/22 3:48 AM Result Value Ref Range pH, Arterial 7.46 (H) 7.35 - 7.45 pCO2, Arterial 32.2 (L) 35.0 - 45.0 mm Hg pO2, Arterial 67 (L) 80 - 100 mm Hg Base Excess, Arterial -0.1 -2.0 - 2.0 HCO3, Arterial 23.0 22.0 - 26.0 mmol/L O2 Sat, Arterial 94.0 92.0 - 99.0 % Hemoglobin, Blood Gas 13.7 13.5 - 17.5 g/dL Hematocrit, Calculated 42.1 41.0 - 53.0 % Liter Flow 2 FIO2 28 Specimen Source Radial, left [id number] 85.9 mm Hg ECG 12 Lead Collection Time: 06/01/22 8:07 AM Result Value Ref Range Ventricular Rate 99 BPM Atrial Rate 99 BPM P-R Interval 148 ms QRS Duration 70 ms Q-T Interval 356 ms QTC Calculation (Bezet) 456 ms P [place] 70 degrees R [place] 13 degrees T [place] 12 degrees POC Glucose Collection Time: 06/01/22 9:26 AM Result Value Ref Range Glucose 95 65 - 99 mg/dL POC Arterial Blood Gas Panel-Pulm Collection Time: 06/01/22 11:15 AM Result Value Ref Range pH, Arterial 7.49 (H) 7.35 - 7.45 pCO2, Arterial 27.3 (L) 35.0 - 45.0 mm Hg pO2, Arterial 65 (L) 80 - 100 mm Hg Base Excess, Arterial -1.4 -2.0 - 2.0 HCO3, Arterial 20.6 (L) 22.0 - 26.0 mmol/L O2 Sat, Arterial 94.0 92.0 - 99.0 % Hemoglobin, Blood Gas 14.1 13.5 - 17.5 g/dL Hematocrit, Calculated 43.3 41.0 - 53.0 % Liter Flow 1 FIO2 24 Specimen Source Radial, right [id number] 65.2 mm Hg Assessment Detail: The total time spent for this visit was 70 to 75 minutes. Greater than 50% of the time was spent incounseling and coordination of care. Marc Juan MD This note was dictated using voice-recognition software for expedited communication. Please kindly excuse any typos or mis-recognized words. [id number] Note* CDI Query - González Hearn MD - 06/01/2022 1:21 PM EST Noted documentation of Acute encephalopathy POA. Clinical Indicators: H&P: Altered level of consciousness, resolved s/p Narcan and oxygen. H&P: Opiate overdose...Received multiple doses of Narcan in ER, Narcan ordered as needed. [facility] [place] 06/01: U tox was positive for amphetamine, cannabinoid and fentanyl. ER nurse note: Patients O2 stats begin to drop. Patient placed on O2 and given 2 mg Narcan and immediately woke up and began vomiting. Please specify the diagnosis that most accurately reflects the patient s mental status. For Example: Acute toxic encephalopathy POA Acute encephalopathy due to drugs POA Acute metabolic encephalopathy POA Encephalopathy (please specify type) Other (please specify) Unable to determine Thank you, UGO Farmer, RN Clinical Grocery Team Member [phone] After business hours you may contact Laurita Sandy at [phone] (Weekdays until 10 PM and weekends 8 AM - 10 PM) [id number] Note* Plan of Care - Cass Reeder RN - 06/01/2022 7:55 AM EST Problem: Actual or potential alteration in health Goal: Absence of healthcare acquired conditions Outcome: Partially Met Goal: Knowledge of Interdisciplinary Plan of Care Outcome: Partially Met Goal: Knowledge of Enviroment Outcome: Partially Met [id number] Consult note* Marc Juan MD - 05/31/2022 4:32 PM ESTAssociated Order(s): IP CONSULT TO ADDICTION MEDICINE ADDICTION MEDICINE CONSULT NOTE Patient Name: Mayito Forbes Admit Date: 1000702 MR #: [id number] : 1985 Physicians: Soco Paige CNP (Family); No ref. provider found (referring) Principal Problem: Respiratory failure with hypoxia (HCC) Assessment and Plan: POLYSUBSTANCE USE Tells me primarily IV fentanyl use - however much he can get. Not sure last use and thinks probablydid use after he got to on Tuesday morning (but was in hospital this morning and says was after New Years?) at his GF. Thinks last injected his neck. Will monitor for opiate withdrawal and consider buprenorphine induction knowing he has been in precipitated withdrawal before. Staff can secure chart myself and Tabby Yelena if COWS 8 or higher Meth use. He has said he does then denies. Acting like he might have tweaked meth and be in a meth crash currently. May benefit from adding NAC 1200 BID for THC and Meth and also topiramate 25 to 50 BID if he wakes up and becomes more agitated. Borderline low both TSH and free T seem c/w meth QT was widened in ED and would suggest repeat EKG tomorrow morning and follow Would keep working to have potassium 4.0 or higher and magnesium 2.0 or higher Due to habit adding screening HIV and Hep studies Adding melatonin to help get circadians back on rhythmn Will get [facility] team for longer term success but see that they are not in again until Tuesday. Will see if he will be allowed back with [facility] else will try for face to face to start. [facility] is close to [place]. Does not want [facility] again Assessment Detail: The total time spent for this visit was 80 to 85 minutes. Greater than 50% of the time was spent incounseling and coordination of care. Reviewed multiple current and prior labs Care Everywhere and OAR[facility] and spoke with staff. Reason for Consult: Management of substance use disorder Linking to outpatient services. Counselingservices. History of Present Illness: Mayito Forbes is a 36 y.o. y/o male presenting from dropped off at ED with c/o OD or Withdrawal Chief Complaint Patient presents with Drug Overdose Patient in 3719. He is groggy and seems to have some memory and timing issues as to his history. 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 Has been to various in and outpatient rehab. Not more thana few days. Was in [facility] earlier this month and left because he felt too sick Seen [facility] 05/07 for vomiting and says was from withdrawal Seen [facility] 05/13 for bronchitis and got Emergency meds but no prescriptions filled. Last filled buprenorphine 8 mg BID x 7 days from [facility] via [place] telehealth on 04/30. Tells me he might have taken some but [facility] did not give him any more suboxone. Not sure if [facility] will let him back again and not willing to sign an DEVORA at this time They would not fill on 05/10 and got gabapentin 600 BID for 30 day supply. Repeatedly says he is not sure what happened to them. Tells me came to stay at his GF yesterday morning and next he know is in here. Adamant that he has been in withdrawal for a few days and no one believes him. Adamant that no meth since back in [place] and not his DOC. Can not explain narcan helping. UDS today shows meth THC and Fentanyl and no buprenorphine. Does not want to go back to treatment and says plan is to be with his GF and get back to outpatient. Does acknowledge would be better in person rather than tele to start. Past Medical History: Diagnosis Date Depression Past Surgical History: Procedure Laterality Date MANDIBLE FRACTURE SURGERY 06/26/2011 History reviewed. No pertinent family history. Social History Socioeconomic History Marital status: Single Tobacco Use Smoking status: Every Day Packs/day: 0.50 Years: 10.00 Pack years: 5.00 Types: Cigarettes Smokeless tobacco: Never Vaping Use Vaping Use: Never used Substance and Sexual Activity Alcohol use: Never Drug use: Yes Types: Other, Marijuana, Opiates Comment: heroin AOD History: No problems updated. Substance(s) of Choice Fentanyl > Meth Treatment history: varied most recently [facility] and [facility] Longest period of sobriety: couple weeks or so OD history: yes Typical withdrawal symptoms: everything but especially vomiting History of precipitated withdrawal: yes Seizure history: no Psychiatric History: Diagnoses: maybe? Provider: no SI or SA: no Previous Medications Medication Sig baclofen (LIORESAL) 10 MG tablet Take 20 mg TID X 6 doses then 10 mg TID X 9 doses . cloNIDine HCL (CATAPRES) 0.1 MG tablet Take 1 (one) tablet (0.1 mg total) by mouth 2 (two) times a day for 7 days . famotidine (PEPCID) 20 MG tablet Take 1 (one) tablet (20 mg total) by mouth 2 (two) times a day for10 doses . famotidine (PEPCID) 20 MG tablet Take 1 (one) tablet (20 mg total) by mouth 2 (two) times a day for20 doses . levoFLOXacin (LEVAQUIN) 500 MG tablet Take 1 (one) tablet (500 mg total) by mouth daily . (Patient not taking: Reported on 10/22/2021 .) ondansetron (ZOFRAN) 4 MG tablet Take 1 (one) tablet (4 mg total) by mouth every 8 (eight) hours asneeded for nausea . ondansetron (ZOFRAN) 4 MG tablet Take 1 (one) tablet (4 mg total) by mouth every 6 (six) hours as needed . ondansetron (ZOFRAN) 8 MG tablet Take 0.5 (one-half) tablet (4 mg total) by mouth every 8 (eight) hours as needed . pantoprazole (PROTONIX) 40 MG tablet Take 1 (one) tablet (40 mg total) by mouth daily . promethazine (PHENERGAN) 25 MG tablet Take 1 (one) tablet (25 mg total) by mouth every 6 (six) hours as needed for nausea . promethazine (PHENERGAN) 25 MG tablet Take 1 (one) tablet (25 mg total) by mouth every 4 (four) hours as needed for nausea . promethazine (PHENERGAN) 25 MG tablet Take 1 (one) tablet (25 mg total) by mouth every 6 (six) hours as needed for nausea . topiramate (TOPAMAX) 25 MG tablet Take 1 (one) tablet (25 mg total) by mouth 2 (two) times a day . No Known Allergies Review of Systems All other systems reviewed and are negative. Patient Vitals for the past 24 hrs: BP Temp Temp src Pulse Resp SpO2 Height Weight 05/31/22 1522 138/85 99.9 F (37.7 C) Oral (!) 114 17 98 % -- -- 05/31/22 1210 -- -- -- -- -- 95 % -- -- 05/31/22 1026 (!) 141/91 100 F (37.8 C) Axillary (!) 105 (!) 20 96 % -- -- 05/31/22 0848 -- -- -- -- 18 -- -- -- 05/31/22 0806 (!) 146/93 99.5 F (37.5 C) Oral (!) 111 18 94 % 5' 9 89.8 kg (197 lb 15.6 oz) 05/31/22 0753 (!) 137/92 -- -- -- -- -- -- -- 05/31/22 0700 (!) 137/92 -- -- (!) 122 (!) 22 95 % -- -- 05/31/22 0630 (!) 154/102 -- -- (!) 114 (!) 25 96 % -- -- 05/31/22 0500 (!) 149/95 -- -- (!) 122 (!) 19 90 % -- -- 05/31/22 0320 -- -- -- -- -- 96 % -- -- 05/31/22 0300 134/82 -- -- (!) 121 (!) 21 94 % -- -- 05/31/22 0230 (!) 153/94 -- -- (!) 112 (!) 25 97 % -- -- 05/31/22 0130 (!) 146/90 -- -- (!) 123 (!) 24 97 % -- -- 05/31/22 0030 (!) 143/83 -- -- (!) 118 (!) 29 96 % -- -- 05/30/22 2300 (!) 155/101 -- -- (!) 124 (!) 34 92 % -- -- 05/30/22 2230 139/84 -- -- (!) 120 (!) 38 95 % -- -- 05/30/22 2200 (!) 155/95 -- -- (!) 118 (!) 36 (!) 89 % -- -- 05/30/22 2145 (!) 138/93 100.1 F (37.8 C) Axillary (!) 116 (!) 41 92 % -- -- 05/30/222029 -- -- -- (!) 111 (!) 39 93 % -- -- 05/30/222017 -- -- -- (!) 118 (!) 31 94 % -- -- 05/30/222014 -- -- -- (!) 117 18 (!) 89 % -- -- 05/30/222008 -- -- -- (!) 113 (!) 34 97 % -- -- 05/30/221955 -- -- -- (!) 112 (!) 37 (!) 86 % -- -- 05/30/221948 -- -- -- (!) 113 (!) 27 (!) 83 % -- -- 05/30/221904 (!) 143/96 99.1 F (37.3 C) Axillary (!) 102 16 (!) 88 % -- 81.6 kg (179 lb 14.3 oz) Physical Exam Vitals and nursing note reviewed. Constitutional: Comments: Groggy but arousable Soft spoken with poor eye contact HENT: Mouth/Throat: Comments: Borderline dry Eyes: General: No scleral icterus. Conjunctiva/sclera: Conjunctivae normal. Pupils: Pupils are equal, round, and reactive to light. Comments: 1 to 2 mm in darkened room Cardiovascular: Rate and Rhythm: Tachycardia present. Musculoskeletal: Cervical back: Normal range of motion and neck supple. Comments: Can move arms and legs but weakly Pulmonary: Effort: Pulmonary effort is normal. Skin: General: Skin is dry. Comments: No abscess Neurological: General: No focal deficit present. Comments: Oriented to name and at a hospital [facility] Psychiatric: Comments: Cooperative when urged Allergy Information: I have reviewed the patient's allergies. Patient has no known allergies. Home Medications: Outpatient Medications as of 05/31/2022 Medication Sig baclofen (LIORESAL) 10 MG tablet Take 20 mg TID X 6 doses then 10 mg TID X 9 doses . levoFLOXacin (LEVAQUIN) 500 MG tablet Take 1 (one) tablet (500 mg total) by mouth daily . (Patient not taking: Reported on 10/22/2021 .) ondansetron (ZOFRAN) 4 MG tablet Take 1 (one) tablet (4 mg total) by mouth every 6 (six) hours as needed . promethazine (PHENERGAN) 25 MG tablet Take 1 (one) tablet (25 mg total) by mouth every 6 (six) hours as needed for nausea . promethazine (PHENERGAN) 25 MG tablet Take 1 (one) tablet (25 mg total) by mouth every 4 (four) hours as needed for nausea . promethazine (PHENERGAN) 25 MG tablet Take 1 (one) tablet (25 mg total) by mouth every 6 (six) hours as needed for nausea . Laboratory & Radiographic Imaging (if done): Recent Results (from the past 24 hour(s)) BMP Collection Time: 05/30/22 7:17 PM Result Value Ref Range Sodium 138 135 - 145 mmol/L Potassium 3.8 3.5 - 5.1 mmol/L Chloride 103 98 - 108 mmol/L Bicarbonate 24 21 - 32 mmol/L Anion Gap 15 10 - 20 mmol/L Glucose 126 (H) 65 - 99 mg/dL BUN 13 8 - 25 mg/dL Creatinine 0.85 0.50 - 1.30 mg/dL eGFR 115 >=60 mL/min/1.73 m2 BUN/Creatinine Ratio 15.3 10.0 - 20.0 Calcium 10.2 8.4 - 10.2 mg/dL Hepatic Function Panel (LFT) Collection Time: 05/30/22 7:17 PM Result Value Ref Range Total Protein 9.0 (H) 6.0 - 8.0 g/dL Albumin 4.0 3.2 - 5.2 g/dL Total Bilirubin 0.6 0.0 - 1.3 mg/dL Bilirubin, Direct 0.2 0.0 - 0.4 mg/dL Alkaline Phosphatase 136 40 - 140 U/L AST 24 0 - 45 U/L ALT 31 14 - 65 U/L Lipase Collection Time: 05/30/22 7:17 PM Result Value Ref Range Lipase 76 73 - 393 U/L Troponin Collection Time: 05/30/22 7:17 PM Result Value Ref Range Troponin I <3 <=59 ng/L Troponin I Interpretation Normal CBC Auto Differential Collection Time: 05/30/22 7:17 PM Result Value Ref Range WBC 10.69 4.50 - 11.00 K/mcL RBC 5.66 4.50 - 5.90 M/mcL Hemoglobin 16.2 13.5 - 17.5 g/dL Hematocrit 47.7 41.0 - 53.0 % MCV 84.3 80.0 - 100.0 fL MCH 28.6 26.0 - 34.0 pg MCHC 34.0 31.0 - 37.0 g/dL Platelets 383 150 - 400 K/mcL RDW - CV 13.0 11.6 - 14.8 % MPV 8.6 (L) 9.4 - 12.4 fL Neutrophils 87.2 % Lymphocytes 9.1 % Monocytes 3.0 % Eosinophils 0.0 % Basophils 0.2 % IG Percent 0.50 % Neutrophils Abs 9.33 (H) 1.70 - 7.00 K/mcL Lymphocytes Abs 0.97 0.90 - 4.00 K/mcL Monocytes Abs 0.32 0.30 - 0.90 K/mcL Eosinophils Abs 0.00 0.00 - 0.50 K/mcL Basophils Abs 0.02 0.00 - 0.30 K/mcL IG Absolute 0.05 0.00 - 0.30 K/mcL Nucleated RBC 0.0 % Nucleated RBC Abs 0.00 0.00 - 0.00 K/mcL TSH Collection Time: 05/30/22 7:17 PM Result Value Ref Range TSH 0.47 0.27 - 4.20 mcIU/mL T4, Free Collection Time: 05/30/22 7:17 PM Result Value Ref Range T4, Free 0.9 0.7 - 1.7 ng/dL EKG 12-lead Collection Time: 05/30/22 9:41 PM Result Value Ref Range Ventricular Rate 115 BPM Atrial Rate 115 BPM P-R Interval 152 ms QRS Duration 74 ms Q-T Interval 386 ms QTC Calculation (Bezet) 533 ms P [place] 82 degrees R [place] 45 degrees T [place] 61 degrees COVID-19/Influenza A,B Molecular Collection Time: 05/30/22 9:46 PM Specimen: Nasopharyngeal; Swab Result Value Ref Range SARS-CoV-2 Not Detected Not Detected Influenza A Not Detected Not Detected Influenza B Not Detected Not Detected Basic Metabolic Panel Collection Time: 05/31/22 6:09 AM Result Value Ref Range Sodium 143 135 - 145 mmol/L Potassium 3.7 3.5 - 5.1 mmol/L Chloride 108 98 - 108 mmol/L Bicarbonate 24 21 - 32 mmol/L Anion Gap 15 10 - 20 mmol/L Glucose 123 (H) 65 - 99 mg/dL BUN 13 8 - 25 mg/dL Creatinine 0.71 0.50 - 1.30 mg/dL eGFR 122 >=60 mL/min/1.73 m2 BUN/Creatinine Ratio 18.3 10.0 - 20.0 Calcium 9.5 8.4 - 10.2 mg/dL Magnesium Collection Time: 05/31/22 6:09 AM Result Value Ref Range Magnesium 2.0 1.6 - 2.4 mg/dL Phosphorus Collection Time: 05/31/22 6:09 AM Result Value Ref Range Phosphorus 4.3 2.7 - 4.5 mg/dL CBC Auto Differential Collection Time: 05/31/22 6:09 AM Result Value Ref Range WBC 14.69 (H) 4.50 - 11.00 K/mcL RBC 5.07 4.50 - 5.90 M/mcL Hemoglobin 14.4 13.5 - 17.5 g/dL Hematocrit 43.0 41.0 - 53.0 % MCV 84.8 80.0 - 100.0 fL MCH 28.4 26.0 - 34.0 pg MCHC 33.5 31.0 - 37.0 g/dL Platelets 367 150 - 400 K/mcL RDW - CV 13.2 11.6 - 14.8 % MPV 8.8 (L) 9.4 - 12.4 fL Neutrophils 86.3 % Lymphocytes 8.2 % Monocytes 4.7 % Eosinophils 0.1 % Basophils 0.2 % IG Percent 0.50 % Neutrophils Abs 12.68 (H) 1.70 - 7.00 K/mcL Lymphocytes Abs 1.21 0.90 - 4.00 K/mcL Monocytes Abs 0.69 0.30 - 0.90 K/mcL Eosinophils Abs 0.01 0.00 - 0.50 K/mcL Basophils Abs 0.03 0.00 - 0.30 K/mcL IG Absolute 0.07 0.00 - 0.30 K/mcL Nucleated RBC 0.0 % Nucleated RBC Abs 0.00 0.00 - 0.00 K/mcL Urinalysis Collection Time: 05/31/22 3:21 PM Result Value Ref Range Color, Urine Yellow Colorless, Yellow Clarity, Urine Clear Clear Specific [place] 1.045 (H) 1.005 - 1.025 pH, Urine 6.5 5.0 - 7.0 Protein, Urine 30 (A) Negative mg/dL Glucose, Urine Negative Negative mg/dL Ketones, Urine >=80 (A) Negative mg/dL Bilirubin, Urine Negative Negative Urobilinogen, Urine 2.0 (A) <2.0 mg/dL Blood, Urine Negative Negative Nitrite, Urine Negative Negative Leukocyte Esterase, Urine Negative Negative WBCs, Urine 1 0 - 5 /hpf RBCs, Urine 3 0 - 3 /hpf Bacteria, Urine None Seen None Seen /hpf Squamous Epithelial <1 0 - 4 /hpf Amorphous Crystals Few (A) None Seen, Rare /hpf Mucus, Urine Rare None Seen, Rare /lpf Urine Drug Screen Collection Time: 05/31/22 3:21 PM Result Value Ref Range Amphetamine Screen, Urine Presumptive Positive (A) None Detected Barbiturate Screen, Urine None Detected None Detected Benzodiazepine Screen, Urine None Detected None Detected Cannabinoid Screen, Urine Presumptive Positive (A) None Detected Cocaine, Screen Urine None Detected None Detected Methadone Screen, Urine None Detected None Detected Opiate Screen, Urine None Detected None Detected Oxycodone Screen, Urine None Detected None Detected Buprenorphine, Ur None Detected None Detected Fentanyl, Ur Presumptive Positive (A) None Detected Lab Results Component Value Date AMPHUR Presumptive Positive (A) 05/31/2022 BARBUR None Detected 05/31/2022 BENZUR None Detected 05/31/2022 THCUR Presumptive Positive (A) 05/31/2022 COCAINESUR None Detected 05/31/2022 URMETH None Detected 05/31/2022 OPIATEUR None Detected 05/31/2022 UROXYCODONE None Detected 05/31/2022 FENTANYLUR Presumptive Positive (A) 05/31/2022 BUPUR None Detected 05/31/[address] Abd Pelvis with IV contrast Final Result 1. No aortic dissection, pulmonary arterial embolism, or other acute findings in the chest, abdomenor pelvis. 2. Dense stool moderately distending the rectal vault. This could be normal or reflect mild fecal impaction. Workstation ID: [id number] CT Head Or Brain Without Contrast Final Result No acute intracranial abnormality. FOLLOW-UP: Follow-up as clinically indicated. Workstation ID: [id number] XR Chest 1 View Final Result 1. Left basilar atelectasis. No focal consolidation or effusion. Workstation ID: [id number] Marc Juan MD This note was dictated using voice-recognition software for expedited communication. Please kindly excuse any typos or mis-recognized words. [id number] Note* Plan of Care - Cass Reeder RN - 05/31/2022 8:52 AM EST Problem: Actual or potential alteration in health Goal: Absence of healthcare acquired conditions Outcome: Partially Met Goal: Knowledge of Interdisciplinary Plan of Care Outcome: Partially Met Goal: Knowledge of Enviroment Outcome: Partially Met [id number] Emergency department Note* Savana Skelton RN - 05/31/2022 7:57 AM EST Report called to lizy oneal on A37 [id number] Emergency department Note* Savana Skelton RN - 05/31/2022 7:57 AM EST Report called to lizy oneal on A37 * Savana Skelton RN - 05/31/2022 7:30 AM EST Introduced self as RN. Sips of water and swab given per pt request. Pt states slight nausea. Pt cooperative. denies any additional needs. * Sharron Proctor RN - 05/31/2022 6:10 AM EST This RN went into pt room & found pt had removed IV, pt had vomited on the floor again. Pt was cleaned up, another emesis bag provided, call light within reach * Madina Beth RN - 05/30/2022 10:00 PM EST Patient has had multiple episodes of green/brown emesis. * Rebeca Quiroga RN - 05/30/2022 8:20 PM EST Pt had another large episode of emesis and had some stool incontinence * Madina Beth RN - 05/30/2022 8:10 PM EST X-ray came to try and get the chest xray again and the patient is still actively vomiting and unable to obtain the chest xray at this time * Ramez Bray RN - 05/30/2022 7:[address] JOHNSON MADE AWARE OF PATIENT STILL VOMITING * Madina Beth RN - 05/30/2022 7:[address] Johnson patient is Shaking to much right now to be able to go for the Head CT or complete the EKG at this time * Madina Beth RN - 05/30/2022 7:29 PM EST Patient brought back to room 24 in a wheel chair not really answering questions. KIMMY Myrick and MORENA Stevens Lifted the patient into Bed. Patient mumbling words that were not comprehensible. Patients Pupils are pinpoint. States withdrawing, denies taking any drugs. Patients O2 stats begin to drop. Patient placed on O2 and given 2 mg Narcan and immediately woke up and began vomiting. * Madina Beth RN - 05/30/2022 7:27 PM EST Pt is still actively shaking and Vomiting. This RN has given Zofran and given the patient a couple of warm blankets. Patient is still mumbling his answers but responding when asked a questions * Charlie Johnson MD - 05/30/2022 7:17 PM ESTAssociated Order(s): ECG 12 Lead; Critical Care [facility] ED Attending Note: NAME: Mayito Forbes 36 y.o. CSN: [id number] PCP: Soco Paige CNP History: Chief Complaint: Drug Overdose HPI: The history was obtained from the patient and friend. Mayito is a 36 y.o. male who presents with a chief complaint of Drug Overdose. Drug Overdose 36-year-old male, presents to triage after being dropped off by a friend. The friend reports that the patient states that he is withdrawing, but did not tell her what he was withdrawing from. The patient's friend states that he was not very forthcoming with her. Patient clearly confused, and havingsome altered mental status. Patient states that he thinks he is withdrawing from heroin. Unable to get much more history due to altered mental status. PMHx: Past Medical History: Diagnosis Date Depression PMSx: Past Surgical History: Procedure Laterality Date MANDIBLE FRACTURE SURGERY 06/26/2011 FAM. Hx: History reviewed. No pertinent family history. SOC. Hx: Social History Socioeconomic History Marital status: Single Tobacco Use Smoking status: Every Day Packs/day: 0.50 Years: 10.00 Pack years: 5.00 Types: Cigarettes Smokeless tobacco: Never Vaping Use Vaping Use: Never used Substance and Sexual Activity Alcohol use: Never Drug use: Yes Types: Other, Marijuana, Opiates Comment: heroin MEDs: Previous Medications Medication Sig baclofen (LIORESAL) 10 MG tablet Take 20 mg TID X 6 doses then 10 mg TID X 9 doses . cloNIDine HCL (CATAPRES) 0.1 MG tablet Take 1 (one) tablet (0.1 mg total) by mouth 2 (two) times a day for 7 days . famotidine (PEPCID) 20 MG tablet Take 1 (one) tablet (20 mg total) by mouth 2 (two) times a day for10 doses . famotidine (PEPCID) 20 MG tablet Take 1 (one) tablet (20 mg total) by mouth 2 (two) times a day for20 doses . levoFLOXacin (LEVAQUIN) 500 MG tablet Take 1 (one) tablet (500 mg total) by mouth daily . (Patient not taking: Reported on 10/22/2021 .) ondansetron (ZOFRAN) 4 MG tablet Take 1 (one) tablet (4 mg total) by mouth every 8 (eight) hours asneeded for nausea . ondansetron (ZOFRAN) 4 MG tablet Take 1 (one) tablet (4 mg total) by mouth every 6 (six) hours as needed . ondansetron (ZOFRAN) 8 MG tablet Take 0.5 (one-half) tablet (4 mg total) by mouth every 8 (eight) hours as needed . pantoprazole (PROTONIX) 40 MG tablet Take 1 (one) tablet (40 mg total) by mouth daily . promethazine (PHENERGAN) 25 MG tablet Take 1 (one) tablet (25 mg total) by mouth every 6 (six) hours as needed for nausea . promethazine (PHENERGAN) 25 MG tablet Take 1 (one) tablet (25 mg total) by mouth every 4 (four) hours as needed for nausea . promethazine (PHENERGAN) 25 MG tablet Take 1 (one) tablet (25 mg total) by mouth every 6 (six) hours as needed for nausea . topiramate (TOPAMAX) 25 MG tablet Take 1 (one) tablet (25 mg total) by mouth 2 (two) times a day . ALL: No Known Allergies ROS: Review of Systems Unable to perform ROS: Mental status change Positives and pertinent negatives as per HPI. All other systems were reviewed and are negative. Physical Exam: Patient Vitals for the past 24 hrs: BP Temp Temp src Pulse Resp SpO2 Weight 05/31/22 0030 (!) 143/83 -- -- (!) 118 (!) 29 96 % -- 05/30/22 2300 (!) 155/101 -- -- (!) 124 (!) 34 92 % -- 05/30/22 2230 139/84 -- -- (!) 120 (!) 38 95 % -- 05/30/22 2200 (!) 155/95 -- -- (!) 118 (!) 36 (!) 89 % -- 05/30/22 2145 (!) 138/93 100.1 F (37.8 C) Axillary (!) 116 (!) 41 92 % -- 05/30/222029 -- -- -- (!) 111 (!) 39 93 % -- 05/30/222017 -- -- -- (!) 118 (!) 31 94 % -- 05/30/222014 -- -- -- (!) 117 18 (!) 89 % -- 05/30/222008 -- -- -- (!) 113 (!) 34 97 % -- 05/30/221955 -- -- -- (!) 112 (!) 37 (!) 86 % -- 05/30/221948 -- -- -- (!) 113 (!) 27 (!) 83 % -- 05/30/22 190 (!) 143/96 99.1 F (37.3 C) Axillary (!) 102 16 (!) 88 % 81.6 kg (179 lb 14.3 oz) Physical Exam Constitutional: General: He is not in acute distress. Appearance: He is ill-appearing (Patient is ill appearing, but in no acute distress.). He is not diaphoretic. HENT: Head: Normocephalic and atraumatic. Right Ear: External ear normal. Left Ear: External ear normal. Mouth/Throat: Mouth: Mucous membranes are moist. Pharynx: Oropharynx is clear. Eyes: General: No scleral icterus. Extraocular Movements: Extraocular movements intact. Pupils: Pupils are equal, round, and reactive to light. Neck: Vascular: No JVD. Trachea: No tracheal deviation. Cardiovascular: Rate and Rhythm: Regular rhythm. Tachycardia present. Pulses: Normal pulses. Heart sounds: Normal heart sounds. No murmur heard. No friction rub. No gallop. Pulmonary: Effort: Pulmonary effort is normal. No respiratory distress. Abdominal: General: There is no distension. Tenderness: There is no abdominal tenderness. Musculoskeletal: General: No deformity. Comments: All major muscle groups in upper extremities were tested, strength grossly 5/5 throughout. Neurological: General: No focal deficit present. Mental Status: He is alert and oriented to person, place, and time. Psychiatric: Behavior: Behavior normal. Laboratory & Radiological Imaging (if done): Labs Reviewed BASIC METABOLIC PANEL - Abnormal; Notable for the following components: Result Value Glucose 126 (*) All other components within normal limits Narrative: [facility] has implemented the eGFR calculation approach that does not have a coefficient for race that conforms to the NKF-ASN Task Force Recommendations. HEPATIC FUNCTION PANEL - Abnormal; Notable for the following components: Total Protein 9.0 (*) All other components within normal limits CBC WITH AUTO DIFFERENTIAL - Abnormal; Notable for the following components: MPV 8.6 (*) Neutrophils Abs 9.33 (*) All other components within normal limits COVID-19/INFLUENZA A,B MOLECULAR - Normal Narrative: This test was performed under the FDA's Emergency Use Authorization (EUA). Testing was performed using the Eliot Casimiro SARS-CoV-2 RT-PCR & Influenza A/B Nucleic Acid Teston the Casimiro Yanna System. This test has not been approved for use in asymptomatic patients and its performance in this patient population has not been evaluated. Negative results do not rule out the presence of SARS-CoV-2, influenza A, and/or influenza B. Fact sheets for the EUA can be found at the following links: For Healthcare Providers: https://www.MetaStat.gov/media/576268/download For Patients: https://www.MetaStat.gov/media/218907/download LIPASE - Normal CBC AND DIFFERENTIAL Narrative: The following orders were created for panel order CBC w/ Diff. Procedure Abnormality Status --------- ------ CBC Auto Differential[[id number]] Abnormal Final result Please view results for these tests on the individual orders. TROPONIN URINALYSIS DRUGS OF ABUSE SCREEN, URINE CTA Pulm Art and CT Abd Pelvis with IV contrast Final Result 1. No aortic dissection, pulmonary arterial embolism, or other acute findings in the chest, abdomenor pelvis. 2. Dense stool moderately distending the rectal vault. This could be normal or reflect mild fecal impaction. Workstation ID: [id number] CT Head Or Brain Without Contrast Final Result No acute intracranial abnormality. FOLLOW-UP: Follow-up as clinically indicated. Workstation ID: [id number] XR Chest 1 View Final Result 1. Left basilar atelectasis. No focal consolidation or effusion. Workstation ID: [id number] Procedures: ECG 12 Lead Date/Time: 05/30/2022 11:02 PM Performed by: Charlie Johnson MD Authorized by: Charlie Johnson MD Interpreted by ED attending physician Rhythm: sinus rhythm and sinus tachycardia BPM: 115 ST Segments: ST segments normal Clinical impression: abnormal ECG and sinus tachycardia Critical Care Performed by: Charlie Johnson MD Authorized by: Charlie Johnson MD Total critical care time: 50 minutes Critical care time was exclusive of separately billable procedures and treating other patients. Critical care was necessary to treat or prevent imminent or life-threatening deterioration of the following conditions: respiratory failure, toxidrome and LOAD BLOCKER failure or compromise. Critical care was time spent personally by me on the following activities: development of treatmentplan with patient or surrogate, discussions with consultants, evaluation of patient's response to treatment, examination of patient, obtaining history from patient or surrogate, ordering and performing treatments and interventions, ordering and review of laboratory studies, ordering and review of radiographic studies, pulse oximetry, re-evaluation of patient's condition and review of old charts. ED Course / Medical Decision Makin-year-old male, presented for evaluation of what he stated was drug withdrawals, is a known user of methamphetamine final. Initially, he was not able to give us much of a history, due to his somnolence. Patient was given Narcan, which did improve his mental state, however, patient had a significant amount of emesis associated with this, which is very difficult to get under control. He would later have another desaturation episode with somnolence, and was given additional doses of Narcan, which did improve his symptoms. I did consider Narcan drip, however, ultimately, the patient did not need this with close monitoring, he was able to stay awake. I next turned my attention to the fact thatthe patient continued to be very hypoxic, it was not safe to put a mask on him, as did not believe that he was awake enough to remove the mask when he needed to vomit, as evidenced by the fact that he was vomiting all over the floor and all over his bed. High flow nasal cannula is utilized, which did improve the patient's pulse oxygenation saturation. Labs are obtained, showing no acute leukocytosis, troponin is undetectable, BMP largely unremarkable for any acute metabolic abnormalities, in particular, potassium is normal at 3.8. LFTs are within normal limits. SARS-CoV-2 and influenza are not detected. Patient is incontinent of urine and stool,so it will be difficult to get a urine specimen. X-ray imaging of the chest shows left basilar atelectasis, but no focal consolidation or effusion. CT of the head shows no acute intracranial abnormality, and a CT pulm the pulmonary arteries with follow-through to the abdomen pelvis shows no aortic dissection, pulmonary arterial embolism, or other acute findings on the chest, abdomen, or pelvis. We discussed the results of the work up in the emergency department. Patient continues to need highflow nasal cannula oxygen for hypoxia, so will be admitted to the intermediate unit for further evaluation. Patient is in agreement the plan of care. I do speak with Dr. Gupta, [facility] doc on-call, who was agreeable to admitting the patient onto his intermediate unit, on his inpatient service. ED MIPS (if empty, not applicable): Clinical Impression: 1. Acute respiratory failure with hypoxia (HCC) 2. Opiate overdose, undetermined intent, initial encounter (HCC) 3. Nausea and vomiting, unspecified vomiting type Disposition[facility] Charlie Johnson M.D. Attending Physician [facility] 05/31/2022 Portions of this note may have been dictated utilizing voice recognition software. Unfortunately this leads to occasional typographical errors. If questions arise please do not hesitate to contact michelleffice for clarification. (Please note that portions of this note have been completed with a voice recognition software. Efforts were made to correct any errors, but occasionally words are mis-transcribed.) Charlie Johnson MD 05/31/22 0045 * Madina Beth RN - 05/30/2022 7:10 PM EST 2 mg narcan IV given by KMIMY Myrick * Kaley Yadav RN - 05/30/2022 6:56 PM EST PT ARRIVES VIA TRIAGE AFTER BEING DROPPED OFF BY HIS EX GIRLFRIEND. SHE REPORTS THE PT HAS BEEN WITHDRAWING, BUT SHE DOES NOT KNOW FROM WHAT. SHE REPORTS HE WON'T TELL HER ANYTHING. PT MOVED INTO CHAIR, WITH MUCH ASSISTANCE, BUT WON'T SPEAK TO STAFF. documented in this [id number] Emergency department Note* Savana Skelton RN - 05/31/2022 7:30 AM EST Introduced self as RN. Sips of water and swab given per pt request. Pt states slight nausea. Pt cooperative. denies any additional needs. [id number] Emergency department Note* Sharron Proctor RN - 05/31/2022 6:10 AM EST This RN went into pt room & found pt had removed IV, pt had vomited on the floor again. Pt was cleaned up, another emesis bag provided, call light within reach [id number] History and physical note* Bernabe Goldstein PA-C - 05/31/2022 1:29 AM EST [facility] -- [facility] Patient Name: Mayito Forbes : 1985 MR #: [id number] Admit Date: 05/30/2022 Physicians: Soco Paige CNP (Family); No ref. provider found (Referring) Mayito Forbes is a 36 y.o. male patient of Soco Paige CNP with history of substance abuse, GERD, and hyperemesis who presented to [facility] with withdrawal symptoms. Acute encephalopathy POA Altered level of consciousness, resolved s/p Narcan and oxygen Continue to monitor Toxicology screening ordered, not collected secondary to urine incontinence in the ER Acute hypoxic respiratory failure POA Likely secondary to mild aspiration, vomiting, and opiate overdose CXR reviewed, left basilar atelectasis without focal consolidation or effusion No indication for antibiotic therapy on admission On high flow nasal cannula, O2 sats 97% Continue supplemental oxygen, titrate per respiratory therapy protocol Opiate overdose, undetermined intent, initial encounter POA Received multiple doses of Narcan in ER Narcan ordered as needed, no indication for infusion Consult addiction medicine Nausea and vomiting Antiemetics as needed Aspiration precautions N.p.o. except sips with meds Continue IV maintenance fluids Hypertension POA BP elevated on admission Pharmacy Hx for Catapres, only written for 7 days Given age and lack of history for essential hypertension, monitor for now As needed hydralazine for SBP greater than 165 mmHg Nicotine dependence, cigarette smoker More than 3 minutes were spent attempting to discussed the risks of continued use and benefits of cessation Code Status: Full Code Medication Reconciliation: Verified Residence prior to admission: house or apartment Was patient transferred from outlying hospital or ED no Quality Measures DVT Prophylaxis: SCDs Akhtar Catheter: absent Risk variables present on admission:None. Please see assessment and plan for further details. Chief Complaint altered level of consciousness History of Present Illness Mayito Forbes is a 36 y.o. male patient of Soco Paige CNP with history of substance abuse, GERD, and hyperemesis who presented to [facility] with withdrawal symptoms. The patient is a known user of methamphetamine and marijuana. Initially, the patient was difficult to arouse which didimprove with Narcan. Once more lucid, the patient was able to say he thought he was withdrawing from heroin. His work-up in the emergency room was relatively benign with a negative CT scan of the head and chest. After receiving Narcan, the patient did have severe nausea and multiple episodes of vomiting. He was noted to be moderately hypoxic after his episodes of vomiting, requiring high flow nasal cannula. It was documented the patient was incontinent of urine and stool, and therefore a urine toxicology screening was never collected. At the time my evaluation, the patient is rather somnolent on high flow nasal cannula. He is difficult to collect any additional history from. Patient is arousable, however, noncooperative with additional questioning. He has been treated with antiemetics and IV fluids. [facility] was consulted for admission and further monitoring. Past Medical History Past Medical History: Diagnosis Date Depression Past Surgical History Past Surgical History: Procedure Laterality Date MANDIBLE FRACTURE SURGERY 06/26/2011 Family History History reviewed. No pertinent family history. Social History Social History Tobacco Use Smoking Status Every Day Packs/day: 0.50 Years: 10.00 Pack years: 5.00 Types: Cigarettes Smokeless Tobacco Never Social History Substance and Sexual Activity Alcohol Use Never Social History Substance and Sexual Activity Drug Use Yes Types: Other, Marijuana, Opiates Comment: heroin Allergy Information I have reviewed the patient's allergies. Patient has no known allergies. Home Medications Home medications were reviewed. Review Of Systems Unable to obtain, the patient is not cooperative when reviewing his symptoms secondary to his acutesubstance overdose and/or withdrawal Physical Examination BP (!) 143/83 (BP Location: Right arm, Patient Position: Lying) Pulse (!) 118 Temp 100.1 F (37.8 C) (Axillary) Resp (!) 29 Wt 81.6 kg (179 lb 14.3 oz) SpO2 96% BMI 26.57 kg/m General Appearance: somnolent; acutely ill appearing; in no acute distress HEENT: Head- normocephalic; Eyes- EOMI, sclera anicteric; Ears- hearing intact; Nose- no nasal discharge; Throat- mucous membranes moist Cardiovascular: regular rate and rhythm; normal S1, S2; no murmurs, rubs, clicks or gallops; no peripheral edema Respiratory: lungs clear to auscultation; without wheezes, rales or rhonchi; on heated high flow Abdomen: soft, non-tender, non-distended; positive bowel sounds Neurological: oriented x 2; normal speech; no focal findings or movement disorder noted Musculoskeletal: no significant deformity or tenderness to palpation Skin: normal coloration; no obvious rashes, lesions or skin breakdown Psych: normal mood and affect Laboratory and Additional Data Reviewed Laboratory 05/31/22 1:51 AM Radiology 05/31/22 1:51 AM Cardiology 05/31/22 1:51 AM Medications 05/31/22 1:51 AM Transcriptions 05/31/22 1:51 AM Associated attestation - Bharat Gupta MD - 05/31/2022 2:10 AM EST [facility] NOTE ADDENDUM I saw and examined the patient independently of the MARYELLEN . Labs, medications, imaging and other studies were reviewed. I agree with history, physical examination findings, medical decision making and the assessment/plan with additions as noted in my documentation below. HPI Patient presents for AMS. Improved with narcan in the ED. Patient then started vomiting. Non-bloody, non-bilious. Required high-flow nasal cannula in the ED. Physical Examination General Appearance: alert; acutely ill appearing; in no acute distress HEENT: Head- normocephalic; Eyes- EOMI, sclera anicteric; Ears- hearing intact; Nose- no nasal discharge; Throat- mucous membranes moist Cardiovascular: regular rate and rhythm; normal S1, S2; no murmurs, rubs, clicks or gallops; no peripheral edema Respiratory: lungs clear to auscultation; without wheezes, rales or rhonchi; on heated high flow Abdomen: soft, non-tender, non-distended; positive bowel sounds Neurological: oriented x 3; normal speech; no focal findings or movement disorder noted Musculoskeletal: no significant deformity or tenderness to palpation Skin: normal coloration; no obvious rashes, lesions or skin breakdown Psych: normal mood and affect Assessment/Plan Opioid overdose, undetermined intent Acute hypoxemic respiratory failure Acute encephalopathy Nausea and vomiting HTN Narcan PRN High flow nasal cannula; wean as able No antibiotics for now Antiemetics PRN [id number] History and physical note* Bernabe Goldstein PA-C - 05/31/2022 1:29 AM EST [facility] -- [facility] Patient Name: Mayito Forbes : 1985 MR #: [id number] Admit Date: 05/30/2022 Physicians: Soco Paige CNP (Family); No ref. provider found (Referring) Mayito Forbes is a 36 y.o. male patient of Soco Paige CNP with history of substance abuse, GERD, and hyperemesis who presented to [facility] with withdrawal symptoms. Acute encephalopathy POA Altered level of consciousness, resolved s/p Narcan and oxygen Continue to monitor Toxicology screening ordered, not collected secondary to urine incontinence in the ER Acute hypoxic respiratory failure POA Likely secondary to mild aspiration, vomiting, and opiate overdose CXR reviewed, left basilar atelectasis without focal consolidation or effusion No indication for antibiotic therapy on admission On high flow nasal cannula, O2 sats 97% Continue supplemental oxygen, titrate per respiratory therapy protocol Opiate overdose, undetermined intent, initial encounter POA Received multiple doses of Narcan in ER Narcan ordered as needed, no indication for infusion Consult addiction medicine Nausea and vomiting Antiemetics as needed Aspiration precautions N.p.o. except sips with meds Continue IV maintenance fluids Hypertension POA BP elevated on admission Pharmacy Hx for Catapres, only written for 7 days Given age and lack of history for essential hypertension, monitor for now As needed hydralazine for SBP greater than 165 mmHg Nicotine dependence, cigarette smoker More than 3 minutes were spent attempting to discussed the risks of continued use and benefits of cessation Code Status: Full Code Medication Reconciliation: Verified Residence prior to admission: house or apartment Was patient transferred from outlying hospital or ED no Quality Measures DVT Prophylaxis: SCDs Akhtar Catheter: absent Risk variables present on admission:None. Please see assessment and plan for further details. Chief Complaint altered level of consciousness History of Present Illness Mayito Forbes is a 36 y.o. male patient of Soco Paige CNP with history of substance abuse, GERD, and hyperemesis who presented to [facility] with withdrawal symptoms. The patient is a known user of methamphetamine and marijuana. Initially, the patient was difficult to arouse which didimprove with Narcan. Once more lucid, the patient was able to say he thought he was withdrawing from heroin. His work-up in the emergency room was relatively benign with a negative CT scan of the head and chest. After receiving Narcan, the patient did have severe nausea and multiple episodes of vomiting. He was noted to be moderately hypoxic after his episodes of vomiting, requiring high flow nasal cannula. It was documented the patient was incontinent of urine and stool, and therefore a urine toxicology screening was never collected. At the time my evaluation, the patient is rather somnolent on high flow nasal cannula. He is difficult to collect any additional history from. Patient is arousable, however, noncooperative with additional questioning. He has been treated with antiemetics and IV fluids. [facility] was consulted for admission and further monitoring. Past Medical History Past Medical History: Diagnosis Date Depression Past Surgical History Past Surgical History: Procedure Laterality Date MANDIBLE FRACTURE SURGERY 06/26/2011 Family History History reviewed. No pertinent family history. Social History Social History Tobacco Use Smoking Status Every Day Packs/day: 0.50 Years: 10.00 Pack years: 5.00 Types: Cigarettes Smokeless Tobacco Never Social History Substance and Sexual Activity Alcohol Use Never Social History Substance and Sexual Activity Drug Use Yes Types: Other, Marijuana, Opiates Comment: heroin Allergy Information I have reviewed the patient's allergies. Patient has no known allergies. Home Medications Home medications were reviewed. Review Of Systems Unable to obtain, the patient is not cooperative when reviewing his symptoms secondary to his acutesubstance overdose and/or withdrawal Physical Examination BP (!) 143/83 (BP Location: Right arm, Patient Position: Lying) Pulse (!) 118 Temp 100.1 F (37.8 C) (Axillary) Resp (!) 29 Wt 81.6 kg (179 lb 14.3 oz) SpO2 96% BMI 26.57 kg/m General Appearance: somnolent; acutely ill appearing; in no acute distress HEENT: Head- normocephalic; Eyes- EOMI, sclera anicteric; Ears- hearing intact; Nose- no nasal discharge; Throat- mucous membranes moist Cardiovascular: regular rate and rhythm; normal S1, S2; no murmurs, rubs, clicks or gallops; no peripheral edema Respiratory: lungs clear to auscultation; without wheezes, rales or rhonchi; on heated high flow Abdomen: soft, non-tender, non-distended; positive bowel sounds Neurological: oriented x 2; normal speech; no focal findings or movement disorder noted Musculoskeletal: no significant deformity or tenderness to palpation Skin: normal coloration; no obvious rashes, lesions or skin breakdown Psych: normal mood and affect Laboratory and Additional Data Reviewed Laboratory 05/31/22 1:51 AM Radiology 05/31/22 1:51 AM Cardiology 05/31/22 1:51 AM Medications 05/31/22 1:51 AM Transcriptions 05/31/22 1:51 AM Associated attestation - Bharat Gupta MD - 05/31/2022 2:10 AM EST [facility] NOTE ADDENDUM I saw and examined the patient independently of the MARYELLEN . Labs, medications, imaging and other studies were reviewed. I agree with history, physical examination findings, medical decision making and the assessment/plan with additions as noted in my documentation below. HPI Patient presents for AMS. Improved with narcan in the ED. Patient then started vomiting. Non-bloody, non-bilious. Required high-flow nasal cannula in the ED. Physical Examination General Appearance: alert; acutely ill appearing; in no acute distress HEENT: Head- normocephalic; Eyes- EOMI, sclera anicteric; Ears- hearing intact; Nose- no nasal discharge; Throat- mucous membranes moist Cardiovascular: regular rate and rhythm; normal S1, S2; no murmurs, rubs, clicks or gallops; no peripheral edema Respiratory: lungs clear to auscultation; without wheezes, rales or rhonchi; on heated high flow Abdomen: soft, non-tender, non-distended; positive bowel sounds Neurological: oriented x 3; normal speech; no focal findings or movement disorder noted Musculoskeletal: no significant deformity or tenderness to palpation Skin: normal coloration; no obvious rashes, lesions or skin breakdown Psych: normal mood and affect Assessment/Plan Opioid overdose, undetermined intent Acute hypoxemic respiratory failure Acute encephalopathy Nausea and vomiting HTN Narcan PRN High flow nasal cannula; wean as able No antibiotics for now Antiemetics PRN documented in this [id number] Emergency department Note* Madina Beth RN - 05/30/2022 10:00 PM EST Patient has had multiple episodes of green/brown emesis. [id number]* Rebeca Quiroga RN - 05/30/2022 8:20 PM EST Pt had another large episode of emesis and had some stool incontinence [id number] Emergency department Note* Madina Beth RN - 05/30/2022 8:10 PM EST X-ray came to try and get the chest xray again and the patient is still actively vomiting and unable to obtain the chest xray at this time [id number] Emergency department Note* Ramez Bray RN - 05/30/2022 7:[address] JOHNSON MADE AWARE OF PATIENT STILL VOMITING [id number] Emergency department Note* Madina Beth RN - 05/30/2022 7:[address] Johnson patient is Shaking to much right now to be able to go for the Head CT or complete the EKG at this time [place] [id number] Emergency department Triage note* Madina Beth RN - 05/30/2022 7:29 PM EST Patient brought back to room 24 in a wheel chair not really answering questions. KIMMY Myrick and MORENA Stevens Lifted the patient into Bed. Patient mumbling words that were not comprehensible. Patients Pupils are pinpoint. States withdrawing, denies taking any drugs. Patients O2 stats begin to drop. Patient placed on O2 and given 2 mg Narcan and immediately woke up and began vomiting. [id number] Emergency department Note* Madina Beth RN - 05/30/2022 7:27 PM EST Pt is still actively shaking and Vomiting. This RN has given Zofran and given the patient a couple of warm blankets. Patient is still mumbling his answers but responding when asked a questions [place] [id number] Physician Emergency department Note* Charlie Johnson MD - 05/30/2022 7:17 PM ESTAssociated Order(s): ECG 12 Lead; Critical Care [facility] ED Attending Note: NAME: Mayito Forbes 36 y.o. CSN: [id number] PCP: Soco Paige CNP History: Chief Complaint: Drug Overdose HPI: The history was obtained from the patient and friend. Mayito is a 36 y.o. male who presents with a chief complaint of Drug Overdose. Drug Overdose 36-year-old male, presents to triage after being dropped off by a friend. The friend reports that the patient states that he is withdrawing, but did not tell her what he was withdrawing from. The patient's friend states that he was not very forthcoming with her. Patient clearly confused, and havingsome altered mental status. Patient states that he thinks he is withdrawing from heroin. Unable to get much more history due to altered mental status. PMHx: Past Medical History: Diagnosis Date Depression PMSx: Past Surgical History: Procedure Laterality Date MANDIBLE FRACTURE SURGERY 06/26/2011 FAM. Hx: History reviewed. No pertinent family history. SOC. Hx: Social History Socioeconomic History Marital status: Single Tobacco Use Smoking status: Every Day Packs/day: 0.50 Years: 10.00 Pack years: 5.00 Types: Cigarettes Smokeless tobacco: Never Vaping Use Vaping Use: Never used Substance and Sexual Activity Alcohol use: Never Drug use: Yes Types: Other, Marijuana, Opiates Comment: heroin MEDs: Previous Medications Medication Sig baclofen (LIORESAL) 10 MG tablet Take 20 mg TID X 6 doses then 10 mg TID X 9 doses . cloNIDine HCL (CATAPRES) 0.1 MG tablet Take 1 (one) tablet (0.1 mg total) by mouth 2 (two) times a day for 7 days . famotidine (PEPCID) 20 MG tablet Take 1 (one) tablet (20 mg total) by mouth 2 (two) times a day for10 doses . famotidine (PEPCID) 20 MG tablet Take 1 (one) tablet (20 mg total) by mouth 2 (two) times a day for20 doses . levoFLOXacin (LEVAQUIN) 500 MG tablet Take 1 (one) tablet (500 mg total) by mouth daily . (Patient not taking: Reported on 10/22/2021 .) ondansetron (ZOFRAN) 4 MG tablet Take 1 (one) tablet (4 mg total) by mouth every 8 (eight) hours asneeded for nausea . ondansetron (ZOFRAN) 4 MG tablet Take 1 (one) tablet (4 mg total) by mouth every 6 (six) hours as needed . ondansetron (ZOFRAN) 8 MG tablet Take 0.5 (one-half) tablet (4 mg total) by mouth every 8 (eight) hours as needed . pantoprazole (PROTONIX) 40 MG tablet Take 1 (one) tablet (40 mg total) by mouth daily . promethazine (PHENERGAN) 25 MG tablet Take 1 (one) tablet (25 mg total) by mouth every 6 (six) hours as needed for nausea . promethazine (PHENERGAN) 25 MG tablet Take 1 (one) tablet (25 mg total) by mouth every 4 (four) hours as needed for nausea . promethazine (PHENERGAN) 25 MG tablet Take 1 (one) tablet (25 mg total) by mouth every 6 (six) hours as needed for nausea . topiramate (TOPAMAX) 25 MG tablet Take 1 (one) tablet (25 mg total) by mouth 2 (two) times a day . ALL: No Known Allergies ROS: Review of Systems Unable to perform ROS: Mental status change Positives and pertinent negatives as per HPI. All other systems were reviewed and are negative. Physical Exam: Patient Vitals for the past 24 hrs: BP Temp Temp src Pulse Resp SpO2 Weight 05/31/22 0030 (!) 143/83 -- -- (!) 118 (!) 29 96 % -- 05/30/22 2300 (!) 155/101 -- -- (!) 124 (!) 34 92 % -- 05/30/22 2230 139/84 -- -- (!) 120 (!) 38 95 % -- 05/30/22 2200 (!) 155/95 -- -- (!) 118 (!) 36 (!) 89 % -- 05/30/22 2145 (!) 138/93 100.1 F (37.8 C) Axillary (!) 116 (!) 41 92 % -- 05/30/222029 -- -- -- (!) 111 (!) 39 93 % -- 05/30/222017 -- -- -- (!) 118 (!) 31 94 % -- 05/30/222014 -- -- -- (!) 117 18 (!) 89 % -- 05/30/222008 -- -- -- (!) 113 (!) 34 97 % -- 05/30/221955 -- -- -- (!) 112 (!) 37 (!) 86 % -- 05/30/221948 -- -- -- (!) 113 (!) 27 (!) 83 % -- 05/30/22 1905 (!) 143/96 99.1 F (37.3 C) Axillary (!) 102 16 (!) 88 % 81.6 kg (179 lb 14.3 oz) Physical Exam Constitutional: General: He is not in acute distress. Appearance: He is ill-appearing (Patient is ill appearing, but in no acute distress.). He is not diaphoretic. HENT: Head: Normocephalic and atraumatic. Right Ear: External ear normal. Left Ear: External ear normal. Mouth/Throat: Mouth: Mucous membranes are moist. Pharynx: Oropharynx is clear. Eyes: General: No scleral icterus. Extraocular Movements: Extraocular movements intact. Pupils: Pupils are equal, round, and reactive to light. Neck: Vascular: No JVD. Trachea: No tracheal deviation. Cardiovascular: Rate and Rhythm: Regular rhythm. Tachycardia present. Pulses: Normal pulses. Heart sounds: Normal heart sounds. No murmur heard. No friction rub. No gallop. Pulmonary: Effort: Pulmonary effort is normal. No respiratory distress. Abdominal: General: There is no distension. Tenderness: There is no abdominal tenderness. Musculoskeletal: General: No deformity. Comments: All major muscle groups in upper extremities were tested, strength grossly 5/5 throughout. Neurological: General: No focal deficit present. Mental Status: He is alert and oriented to person, place, and time. Psychiatric: Behavior: Behavior normal. Laboratory & Radiological Imaging (if done): Labs Reviewed BASIC METABOLIC PANEL - Abnormal; Notable for the following components: Result Value Glucose 126 (*) All other components within normal limits Narrative: [facility] has implemented the eGFR calculation approach that does not have a coefficient for race that conforms to the NKF-ASN Task Force Recommendations. HEPATIC FUNCTION PANEL - Abnormal; Notable for the following components: Total Protein 9.0 (*) All other components within normal limits CBC WITH AUTO DIFFERENTIAL - Abnormal; Notable for the following components: MPV 8.6 (*) Neutrophils Abs 9.33 (*) All other components within normal limits COVID-19/INFLUENZA A,B MOLECULAR - Normal Narrative: This test was performed under the FDA's Emergency Use Authorization (EUA). Testing was performed using the Eliot Casimiro SARS-CoV-2 RT-PCR & Influenza A/B Nucleic Acid Teston the Casimiro Yanna System. This test has not been approved for use in asymptomatic patients and its performance in this patient population has not been evaluated. Negative results do not rule out the presence of SARS-CoV-2, influenza A, and/or influenza B. Fact sheets for the EUA can be found at the following links: For Healthcare Providers: https://www.MetaStat.gov/media/211695/download For Patients: https://www.fda.gov/media/229842/download LIPASE - Normal CBC AND DIFFERENTIAL Narrative: The following orders were created for panel order CBC w/ Diff. Procedure Abnormality Status --------- ------ CBC Auto Differential[[id number]] Abnormal Final result Please view results for these tests on the individual orders. TROPONIN URINALYSIS DRUGS OF ABUSE SCREEN, URINE CTA Pulm Art and CT Abd Pelvis with IV contrast Final Result 1. No aortic dissection, pulmonary arterial embolism, or other acute findings in the chest, abdomenor pelvis. 2. Dense stool moderately distending the rectal vault. This could be normal or reflect mild fecal impaction. Workstation ID: [id number] CT Head Or Brain Without Contrast Final Result No acute intracranial abnormality. FOLLOW-UP: Follow-up as clinically indicated. Workstation ID: [id number] XR Chest 1 View Final Result 1. Left basilar atelectasis. No focal consolidation or effusion. Workstation ID: [id number] Procedures: ECG 12 Lead Date/Time: 05/30/2022 11:02 PM Performed by: Charlie Johnson MD Authorized by: Charlie Johnson MD Interpreted by ED attending physician Rhythm: sinus rhythm and sinus tachycardia BPM: 115 ST Segments: ST segments normal Clinical impression: abnormal ECG and sinus tachycardia Critical Care Performed by: Charlie Johnson MD Authorized by: Charlie Johnson MD Total critical care time: 50 minutes Critical care time was exclusive of separately billable procedures and treating other patients. Critical care was necessary to treat or prevent imminent or life-threatening deterioration of the following conditions: respiratory failure, toxidrome and LOAD BLOCKER failure or compromise. Critical care was time spent personally by me on the following activities: development of treatmentplan with patient or surrogate, discussions with consultants, evaluation of patient's response to treatment, examination of patient, obtaining history from patient or surrogate, ordering and performing treatments and interventions, ordering and review of laboratory studies, ordering and review of radiographic studies, pulse oximetry, re-evaluation of patient's condition and review of old charts. ED Course / Medical Decision Makin-year-old male, presented for evaluation of what he stated was drug withdrawals, is a known user of methamphetamine final. Initially, he was not able to give us much of a history, due to his somnolence. Patient was given Narcan, which did improve his mental state, however, patient had a significant amount of emesis associated with this, which is very difficult to get under control. He would later have another desaturation episode with somnolence, and was given additional doses of Narcan, which did improve his symptoms. I did consider Narcan drip, however, ultimately, the patient did not need this with close monitoring, he was able to stay awake. I next turned my attention to the fact thatthe patient continued to be very hypoxic, it was not safe to put a mask on him, as did not believe that he was awake enough to remove the mask when he needed to vomit, as evidenced by the fact that he was vomiting all over the floor and all over his bed. High flow nasal cannula is utilized, which did improve the patient's pulse oxygenation saturation. Labs are obtained, showing no acute leukocytosis, troponin is undetectable, BMP largely unremarkable for any acute metabolic abnormalities, in particular, potassium is normal at 3.8. LFTs are within normal limits. SARS-CoV-2 and influenza are not detected. Patient is incontinent of urine and stool,so it will be difficult to get a urine specimen. X-ray imaging of the chest shows left basilar atelectasis, but no focal consolidation or effusion. CT of the head shows no acute intracranial abnormality, and a CT pulm the pulmonary arteries with follow-through to the abdomen pelvis shows no aortic dissection, pulmonary arterial embolism, or other acute findings on the chest, abdomen, or pelvis. We discussed the results of the work up in the emergency department. Patient continues to need highflow nasal cannula oxygen for hypoxia, so will be admitted to the intermediate unit for further evaluation. Patient is in agreement the plan of care. I do speak with Dr. Gupta, [facility] doc on-call, who was agreeable to admitting the patient onto his intermediate unit, on his inpatient service. ED MIPS (if empty, not applicable): Clinical Impression: 1. Acute respiratory failure with hypoxia (HCC) 2. Opiate overdose, undetermined intent, initial encounter (HCC) 3. Nausea and vomiting, unspecified vomiting type Disposition: hospitalize to CVSD/ISD (Intermediate) Charlie Johnson M.D. Attending Physician [facility] 05/31/2022 Portions of this note may have been dictated utilizing voice recognition software. Unfortunately this leads to occasional typographical errors. If questions arise please do not hesitate to contact bruce for clarification. (Please note that portions of this note have been completed with a voice recognition software. Efforts were made to correct any errors, but occasionally words are mis-transcribed.) Charlie Johnson MD 05/31/2244 [facility] Work Phone: [phone]) 725-517401-01-2023 Emergency department Note* Madina Beth RN - 05/30/2022 7:10 PM EST 2 mg narcan IV given by KIMMY Myrick [id number] Emergency department Triage note* Kaley Yadav RN - 05/30/2022 6:56 PM EST PT ARRIVES VIA TRIAGE AFTER BEING DROPPED OFF BY HIS EX GIRLFRIEND. SHE REPORTS THE PT HAS BEEN WITHDRAWING, BUT SHE DOES NOT KNOW FROM WHAT. SHE REPORTS HE WON'T TELL HER ANYTHING. PT MOVED INTO CHAIR, WITH MUCH ASSISTANCE, BUT WON'T SPEAK TO STAFF. [id number] Emergency department Note* Viviane Pettit RN - 05/13/2022 10:32 PM EST Pt medicated per JUL. Pt sitting on stool at bedside, reports he is beginning to feel better after initial breathing treatments and is starting to expectorate with coughs. RT called for additional treatments as ordered. [facility]12-15-2022 Emergency department Note* Viviane Pettit RN - 05/13/2022 10:32 PM EST Pt medicated per JUL. Pt sitting on stool at bedside, reports he is beginning to feel better after initial breathing treatments and is starting to expectorate with coughs. RT called for additional treatments as ordered. * Jayant Trimble MD - 05/13/2022 9:14 PM EST Emergency Department Report [facility] Service Date:.05/13/22 PCP: No primary care provider on file. Chief Complaint: Chief Complaint Patient presents with Shortness of Breath Pt presents to ED C/O SOB [id number]. Pt states he is having hard time catching his breath. Pt states it has gotten worse this week. Pt states 6/10 pain while breathing. HPI Mayito Forbes is a 36 y.o. male presents to the ED today due to Cough. Patient states he's had cough and shortness of breath last 2 weeks. He did have a history of childhood asthma. Today though he's had difficulty breathing. He states it's hard to catch his breath. He denies any fever chills nausea vomiting. Review of Systems: Review of Systems Constitutional: Negative for fever. Gastrointestinal: Negative for vomiting. Past Medical History: Past Medical History: Diagnosis Date Depression Past Surgical History: Past Surgical History: Procedure Laterality Date DECOMPRESSION TRANSPOSITION MEDIAN NERVE Left 10/07/2021 Laterality: Left; Surgeon: Susan Ca MD; Location: [facility] DECOMPRESSION TRANSPOSITION MEDIAN NERVE Right 08/19/2021 Laterality: Right; Surgeon: Susan Ca MD; Location: [facility] Allergies: No Known Allergies Medications: Patient's Medications New Prescriptions AZITHROMYCIN 250 MG TABLET Take 1 tablet by mouth daily for 4 days. PREDNISONE 20 MG TABLET Take 3 tablets daily x 5 days Previous Medications BUPRENORPHINE 8 MG/NALOXONE 2 MG SL FILM DISSOLVE 1 FILM UNDER TONGUE TWICE DAILY DIRECTED TRAMADOL 50 MG TABLET Take 1 tablet by mouth every 6 hours as needed for up to 2 days. Modified Medications No medications on file Discontinued Medications No medications on file Family History: History reviewed. No pertinent family history. Social History: Social History Socioeconomic History Marital status: Single Spouse name: Not on file Number of children: Not on file Years of education: Not on file Highest education level: Not on file Occupational History Not on file Tobacco Use Smoking status: Every Day Packs/day: 0.50 Types: Cigarettes Smokeless tobacco: Current Types: Chew Substance and Sexual Activity Alcohol use: Never Drug use: Never Sexual activity: Not on file Other Topics Concern Not on file Social History Narrative Not on file Social Determinants of Health Financial Resource Strain: Not on file Food Insecurity: Not on file Transportation Needs: Not on file Physical Activity: Not on file Stress: Not on file Social Connections: Not on file Intimate Partner Violence: Not on file Housing Stability: Not on file Physical Exam: Physical Exam Vitals and nursing note reviewed. Constitutional: Appearance: He is well-developed. HENT: Head: Normocephalic and atraumatic. Cardiovascular: Rate and Rhythm: Normal rate and regular rhythm. Pulmonary: Effort: Pulmonary effort is normal. Breath sounds: Wheezing and rhonchi present. Skin: General: Skin is warm. Capillary Refill: Capillary refill takes less than 2 seconds. Neurological: General: No focal deficit present. Mental Status: He is alert and oriented to person, place, and time. Psychiatric: Mood and Affect: Mood normal. Behavior: Behavior normal. Vital Signs During ED Visit Patient Vitals for the past 24 hrs: BP Temp Temp src Pulse Resp SpO2 Height 05/13/222102 -- -- -- -- 22 -- -- 05/13/222100 124/85 -- -- 92 -- 94 % -- 05/13/222037 -- -- -- -- -- -- 1.753 m (5' 9) 05/13/222036 135/82 98.2 F (36.8 C) Oral 90 16 94 % -- Orders/Results: Orders Placed This Encounter SPACER FOR INHALER NOVEL CORONAVIRUS LAB 1 - NASOPHARYNGEAL XR CHEST AP PORTABLE INFLUENZA A AND B, PCR Ipratropium-albuterol (DUONEB) 0.5-2.5 (3) MG/3ML nebulizer solution 3 mL Ipratropium-albuterol (DUONEB) 0.5-2.5 (3) MG/3ML nebulizer solution 3 mL predniSONE (DELTASONE) tablet 60 mg Albuterol inhaler 2 puff predniSONE 20 MG tablet Azithromycin 250 MG tablet Azithromycin (ZITHROMAX) tablet 500 mg Results for orders placed or performed during the hospital encounter of 05/13/22 NOVEL CORONAVIRUS LAB 1 - NASOPHARYNGEAL Specimen: NASOPHARYNGEAL; Fluid/Swab Result Value Ref Range SARS COV 2 RNA, QL REAL TIME RT PCR NOT DETECTED NOT DETECTED NARRATIVE -1 This test was performed using isothermal KATLYN and has been approved as Emergency Use Authorization (EUA) for the qualitative detection [id number] nucleic acid. INFLUENZA A AND B, PCR Result Value Ref Range INFLUENZA A NEGATIVE NEGATIVE INFLUENZA B NEGATIVE NEGATIVE Radiographic Imaging XR CHEST AP PORTABLE Final Result IMPRESSION: No acute cardiopulmonary abnormality. Procedures: Procedures Moderate Sedation Procedure: No ED Summary/MDM Patient's breathing improved after nebulizer treatment. We'll continue nebulizer, prednisone and Z-Italo as an outpatient. PCP follow-up return to the ER as needed MDM Number of Diagnoses or Management Options Amount and/or Complexity of Data Reviewed Clinical lab tests: reviewed and ordered Tests in the radiology section of CPT : reviewed and ordered Review and summarize past medical records: yes Independent visualization of images, tracings, or specimens: yes Clinical Impression: 1. Bronchitis, acute, with bronchospasm No follow-ups on file. New Prescriptions AZITHROMYCIN 250 MG TABLET Take 1 tablet by mouth daily for 4 days. PREDNISONE 20 MG TABLET Take 3 tablets daily x 5 days Discontinued Medications No medications on file An After Visit Summary was printed and given to the patient with above information. . . Jayant Trimble MD 05/13/22 [id number] * Viviane Pettit RN - 05/13/2022 9:00 PM EST Pt reports ongoing cough, SOB and chest heaviness when feeling SOB. Pt denies ability to expectorate sputum. Lungs diminished with bilateral scattered ronchi and expiratory wheezes. Pt reports hx asthma, denies use of inhaler at home r/t does not currently have inhaler. [facility] of Present illness Narrative* Shakira Neville RCP - 05/13/2022 9:50 PM EST Pt instructed on proper MDI and Aerochamber use and technique. Good teach back, pt has no questionsor concerns at this time. [facility] Phys[facility] Emergency department Note* Jayant Trimble MD - 05/13/2022 9:14 PM EST Emergency Department Report [facility] Service Date:.05/13/22 PCP: No primary care provider on file. Chief Complaint: Chief Complaint Patient presents with Shortness of Breath Pt presents to ED C/O SOB [id number]. Pt states he is having hard time catching his breath. Pt states it has gotten worse this week. Pt states 6/10 pain while breathing. HPI Mayito Forbes is a 36 y.o. male presents to the ED today due to Cough. Patient states he's had cough and shortness of breath last 2 weeks. He did have a history of childhood asthma. Today though he's had difficulty breathing. He states it's hard to catch his breath. He denies any fever chills nausea vomiting. Review of Systems: Review of Systems Constitutional: Negative for fever. Gastrointestinal: Negative for vomiting. Past Medical History: Past Medical History: Diagnosis Date Depression Past Surgical History: Past Surgical History: Procedure Laterality Date DECOMPRESSION TRANSPOSITION MEDIAN NERVE Left 10/07/2021 Laterality: Left; Surgeon: Susan Ca MD; Location: [facility] DECOMPRESSION TRANSPOSITION MEDIAN NERVE Right 08/19/2021 Laterality: Right; Surgeon: Susan Ca MD; Location: [facility] Allergies: No Known Allergies Medications: Patient's Medications New Prescriptions AZITHROMYCIN 250 MG TABLET Take 1 tablet by mouth daily for 4 days. PREDNISONE 20 MG TABLET Take 3 tablets daily x 5 days Previous Medications BUPRENORPHINE 8 MG/NALOXONE 2 MG SL FILM DISSOLVE 1 FILM UNDER TONGUE TWICE DAILY DIRECTED TRAMADOL 50 MG TABLET Take 1 tablet by mouth every 6 hours as needed for up to 2 days. Modified Medications No medications on file Discontinued Medications No medications on file Family History: History reviewed. No pertinent family history. Social History: Social History Socioeconomic History Marital status: Single Spouse name: Not on file Number of children: Not on file Years of education: Not on file Highest education level: Not on file Occupational History Not on file Tobacco Use Smoking status: Every Day Packs/day: 0.50 Types: Cigarettes Smokeless tobacco: Current Types: Chew Substance and Sexual Activity Alcohol use: Never Drug use: Never Sexual activity: Not on file Other Topics Concern Not on file Social History Narrative Not on file Social Determinants of Health Financial Resource Strain: Not on file Food Insecurity: Not on file Transportation Needs: Not on file Physical Activity: Not on file Stress: Not on file Social Connections: Not on file Intimate Partner Violence: Not on file Housing Stability: Not on file Physical Exam: Physical Exam Vitals and nursing note reviewed. Constitutional: Appearance: He is well-developed. HENT: Head: Normocephalic and atraumatic. Cardiovascular: Rate and Rhythm: Normal rate and regular rhythm. Pulmonary: Effort: Pulmonary effort is normal. Breath sounds: Wheezing and rhonchi present. Skin: General: Skin is warm. Capillary Refill: Capillary refill takes less than 2 seconds. Neurological: General: No focal deficit present. Mental Status: He is alert and oriented to person, place, and time. Psychiatric: Mood and Affect: Mood normal. Behavior: Behavior normal. Vital Signs During ED Visit Patient Vitals for the past 24 hrs: BP Temp Temp src Pulse Resp SpO2 Height 05/13/222102 -- -- -- -- 22 -- -- 05/13/222100 124/85 -- -- 92 -- 94 % -- 05/13/222037 -- -- -- -- -- -- 1.753 m (5' 9) 05/13/222036 135/82 98.2 F (36.8 C) Oral 90 16 94 % -- Orders/Results: Orders Placed This Encounter SPACER FOR INHALER NOVEL CORONAVIRUS LAB 1 - NASOPHARYNGEAL XR CHEST AP PORTABLE INFLUENZA A AND B, PCR Ipratropium-albuterol (DUONEB) 0.5-2.5 (3) MG/3ML nebulizer solution 3 mL Ipratropium-albuterol (DUONEB) 0.5-2.5 (3) MG/3ML nebulizer solution 3 mL predniSONE (DELTASONE) tablet 60 mg Albuterol inhaler 2 puff predniSONE 20 MG tablet Azithromycin 250 MG tablet Azithromycin (ZITHROMAX) tablet 500 mg Results for orders placed or performed during the hospital encounter of 05/13/22 NOVEL CORONAVIRUS LAB 1 - NASOPHARYNGEAL Specimen: NASOPHARYNGEAL; Fluid/Swab Result Value Ref Range SARS COV 2 RNA, QL REAL TIME RT PCR NOT DETECTED NOT DETECTED NARRATIVE -1 This test was performed using isothermal KATLYN and has been approved as Emergency Use Authorization (EUA) for the qualitative detection [id number] nucleic acid. INFLUENZA A AND B, PCR Result Value Ref Range INFLUENZA A NEGATIVE NEGATIVE INFLUENZA B NEGATIVE NEGATIVE Radiographic Imaging XR CHEST AP PORTABLE Final Result IMPRESSION: No acute cardiopulmonary abnormality. Procedures: Procedures Moderate Sedation Procedure: No ED Summary/MDM Patient's breathing improved after nebulizer treatment. We'll continue nebulizer, prednisone and Z-Italo as an outpatient. PCP follow-up return to the ER as needed MDM Number of Diagnoses or Management Options Amount and/or Complexity of Data Reviewed Clinical lab tests: reviewed and ordered Tests in the radiology section of CPT : reviewed and ordered Review and summarize past medical records: yes Independent visualization of images, tracings, or specimens: yes Clinical Impression: 1. Bronchitis, acute, with bronchospasm No follow-ups on file. New Prescriptions AZITHROMYCIN 250 MG TABLET Take 1 tablet by mouth daily for 4 days. PREDNISONE 20 MG TABLET Take 3 tablets daily x 5 days Discontinued Medications No medications on file An After Visit Summary was printed and given to the patient with above information. . . Jayant Trimble MD 05/13/222153 [facility]12-15-2022 Emergency department Note* Viviane Pettit RN - 05/13/2022 9:00 PM EST Pt reports ongoing cough, SOB and chest heaviness when feeling SOB. Pt denies ability to expectorate sputum. Lungs diminished with bilateral scattered ronchi and expiratory wheezes. Pt reports hx asthma, denies use of inhaler at home r/t does not currently have inhaler. [facility]12-11-2022 NoteHNO ID: [id number] Author: Suellen Armstrong APRN.MONOTYPE MECHANIC Service: General Internal Medicine Author Type: Nurse Practitioner Type: Progress Notes Filed: 05/09/2022 12:44 PM Note Text: INTERNAL MEDICINE PROGRESS NOTE SERVICE DATE: 05/09/2022 SERVICE TIME: 1236 ADMITTING PHYSICIAN: Estefanía Pa V, MD Subjective CHIEF COMPLAINT: N/V INTERVAL HISTORY OF PRESENT ILLNESS: Mr. Forbes is a 36 year old male who presents with H heroin abuse last use 4 days ago per patient , presenting with complaints of vomiting and abdominal pain. Brought in from [facility] Patient much improved, took shower this morning. Agreeable to taking oral potassium supplement. Also agreeable to returning to [place], clear for d/c today ROS: GENERAL: Negative for malaise, fever RESPIRATORY: Negative for cough, wheezing and shortness of breath CARDIOVASCULAR: Negative for chest pain, leg swelling and palpitations GI: Negative for abdominal discomfort, nausea, vomiting MUSCULOSKELETAL: Negative for joint pain or swelling, back pain, and muscle pain. NEURO: Negative All other systems negative. Current Facility-Administered Medications Medication Dose Route Frequency potassium chloride ER 40 mEq tab(s) (K-DUR, KLOR-CON) 40 mEq ORAL ONCE sodium chloride 0.9 % (flush) 3-5 mL (BD POSIFLUSH) 3-5 mL INTRAVENOUS q 12 H NaCl 0.9% iv infusion 125 mL/hr INTRAVENOUS CONTINUOUS venlafaxine ER 150 mg cap(s) (EFFEXOR XR) 150 mg ORAL AT BEDTIME sodium chloride 0.9 % (flush) 3-5 mL (BD POSIFLUSH) 3-5 mL INTRAVENOUS q 12 H naloxone 0.4 mg injection (NARCAN) 0.4 mg INTRAMUSCULAR PRN traZODone 50 mg tab(s) (DESYREL) 50 mg ORAL AT BEDTIME PRN metoclopramide HCl 10 mg tab(s) (REGLAN) 10 mg ORAL q 6 H PRN ondansetron orally disintegrating 4 mg tab(s) (ZOFRAN ODT) 4 mg ORAL q 6 H Or ondansetron (PF) 4 mg injection (ZOFRAN) 4 mg INTRAVENOUS q 6 H traMADol 100 mg tab(s) (ULTRAM) 100 mg ORAL q 4 HR LORazepam 0.5 mg tab(s) (ATIVAN) 0.5 mg ORAL q 6 H PRN gabapentin 600 mg cap(s) (NEURONTIN) 600 mg ORAL q 12 H NaCl 0.9% iv flush bag 20 mL INTRAVENOUS PRN Objective PHYSICAL EXAM: Patient Vitals for the past 24 hrs: BP Temp Temp src Pulse Resp SpO2 05/09/22 0814 143/94 37 ?C (98.6 ?F) Oral 82 18 93 % 05/09/22 0009 149/96 37 ?C (98.6 ?F) Axillary 106 18 92 % 05/08/22 1554 142/93 36.8 ?C (98.2 ?F) Oral 80 17 98 % Body mass index is 36.01 kg/m?. GENERAL: Alert, no distress, cooperative SKIN: intact where visible LUNGS: Lungs clear to auscultation. Good diaphragmatic excursion. CARDIAC: Normal S1 and S2; no rubs, murmurs, or gallops ABDOMEN: Abdomen soft, non-tender, BS normal, No masses or organomegaly EXTREMITIES: Extremities normal, no deformities, edema, clubbing or skin discoloration. Good capillary refill. NEURO: Grossly normal cognition, motor function, and cranial nerves III-XII PULSES: 2+ radial, 2+ dorsalis pedis DATA: Diagnostic tests reviewed for today's visit: Most recent labs and imaging results. Assessment/Plan Nausea and vomiting, unspecified vomiting type Hypomagnesemia Hypokalemia - NPO - IVF - replace lytes - prn zofran Heroin abuse - currently in [facility] - [facility] - tramadol and ativan SIGNATURE: Suellen Armstrong APRN.CNP PATIENT NAME: Mayito Forbes DATE: May 09, 2022 TIME: 12:35 PM PAGER/CONTACT #: [phone] History of Past illness Narrative* Problem Noted Date Diagnosed Date Resolved Date Nausea and vomiting in adult 05/08/2022 05/09/2022 documented as of this encounter (statuses as of 08/30/2023) [facility]12-10-2022 NoteHNO ID: [id number] Author: Irma Ontiveros APRN.MONOTYPE MECHANIC Service: Critical Care Author Type: Nurse Practitioner Type: Plan of Care Filed: 05/08/2022 12:49 AM Note Text: Clinical Specialist Coverage Note Patient Name: Mayito Forbes This is a 36 year old male admitted for nausea and vomiting. General admission orders placed; formal admit orders, medication reconciliation and HANDP to follow by primary attending. RN to notify primary team of new admission and for further recommendations. BP 140/84 Pulse (!) 106 Temp 36.3 ?C (97.3 ?F) (Temporal) Resp 18 Wt 77.1 kg (170 lb) SpO2 98% Irma Ontiveros APRN.MONOTYPE MECHANIC May 08, 2022 12:49 AMWest[facility] [id number] Miscellaneous Notes* Op Note - Susan Ca MD - 10/07/2021 11:47 AM EDT Preoperative Diagnosis: Right carpal tunnel syndrome Postoperative Diagnosis: Right carpal tunnel syndrome Procedure: Right open carpal tunnel release Attending: Susan Ca MD Landscape Gardener: Cleveland Campbell MD Anesthesia: MAC/Local EBL: 5cc Complications: none Specimens: none Drains: none Indications: 36 yo M with R CTS here today for open release. We explained to the patient the risks and benefits of surgery including bleeding, infection, wound healing problems, injury to surroundingstructures such as vessels, tendons, nerves and bone, persistent numbness, possible revision surgery, and problems with anesthesia. Informed consent was obtained. Procedure: After proper consent was obtained the operative extremity was marked in the preoperative holding area and the patient was brought to the operating room and laid supine on the operating room table. A surgical timeout was performed and anesthesia was induced. The patient's surgical site was then injected with 9cc of 1% lidocaine with epinephrine and 1cc of 8.4% sodium bicarbonate. The patient was then prepped and draped in sterile fashion. The procedure began with the exsanguination of the upper extremity and inflation of the tourniquet to 250mmHg. An incision was designed overlying the carpal tunnel in the palm approximately 1.5cm in length. Incision was made with a #15 blade scalpel and dissection was carried down sharply through skin, subcutaneous tissue, superficial palmar fascia, and palmaris brevis until the transverse carpalligament was encountered. This was divided sharply and the carpal tunnel entered. This was releasedproximally and distally to its full extent including antebrachial fascia using Littler scissors. The release was then confirmed and the median nerve visualized and found to be intact. The wound was irrigated, the tourniquet let down and hemostasis obtained. The wound was closed with 4-0 Prolene horizontal mattress sutures and dressed with xeroform, 4x4s, a kerlix gauze wrap, and an POLA wrap. All sponge and instrument counts were correct at the end of the procedure. The patient tolerated the procedure well and was taken to PACU in stable condition. Postoperative Plan: The patient will leave their dressing in place for 48 hours, then remove it andshower. Tylenol and Ibuprofen should be used for pain control. No lifting heavier than 2lbs with the affected hand. Follow up in 10-14 days as scheduled for suture removal and recheck. Susan Ca MD Academic Support Director - Plastic and Hand Surgery * Brief Op Note - Susan Ca MD - 10/07/2021 11:47 AM EDT Mayito Forbes ([id number]) PRE OPERATIVE DIAGNOSIS Carpal tunnel syndrome, left [G56.02] POST OPERATIVE DIAGNOSIS Post-Op Diagnosis Codes: * Carpal tunnel syndrome, left [G56.02] PROCEDURE PERFORMED Procedure(s) (LRB): DECOMPRESSION TRANSPOSITION MEDIAN NERVE (Left) PRIMARY CLOSURE Yes INTRAOPERATIVE FINDINGS No significant abnormalities SURGEON Surgeon(s) and Role: * Susan Ca MD - Primary ANESTHESIOLOGIST Anesthesiologist: Lakhwinder Connors MD CLAMP TRUCK DRIVER: Deidra Dang APRN-CLAMP TRUCK DRIVER SURGICAL STAFF Furnace Mechanic: Cynthia Trejo RN Scrub Person: Yoli Benitez Fellow: Cleveland Campbell MD COMPLICATIONS None ESTIMATED BLOOD LOSS Minimal SPECIMENS No specimen sent * No specimens in log * Susan Ca MD October 07, 2021 1:15 PM * Nursing Notes - Deborah Rivera RN - 10/07/2021 11:43 AM EDT Reviewed AVS, discharge instructions, ice pack, prescriptions, follow-up appointment, and when to call the office with patient and patient's girlfriend. All questions answered. Peripheral iv access removed per protocol. Prescriptions sent to patient's pharmacy. Patient states readiness for discharge. Deborah Rivera RN * Nursing Notes - Basilia Gutierrez RN - 10/07/2021 9:19 AM EDT Patient called as has not yet arrived per pt is parking now. * Nursing Notes - Basilia Gutierrez RN - 10/07/2021 8:55 AM EDT Patient has arrival time of 0830 . Kaleigh ONEAL called patient to see estimated time of arrival. Patient states he will be here soon . documented in this encounterU [facility]05[facility]11[facility] Note* Op Note - Susan Ca MD - 10/07/2021 11:47 AM EDT Preoperative Diagnosis: Right carpal tunnel syndrome Postoperative Diagnosis: Right carpal tunnel syndrome Procedure: Right open carpal tunnel release Attending: Susan Ca MD Landscape Gardener: Cleveland Campbell MD Anesthesia: MAC/Local EBL: 5cc Complications: none Specimens: none Drains: none Indications: 36 yo M with R CTS here today for open release. We explained to the patient the risks and benefits of surgery including bleeding, infection, wound healing problems, injury to surroundingstructures such as vessels, tendons, nerves and bone, persistent numbness, possible revision surgery, and problems with anesthesia. Informed consent was obtained. Procedure: After proper consent was obtained the operative extremity was marked in the preoperative holding area and the patient was brought to the operating room and laid supine on the operating room table. A surgical timeout was performed and anesthesia was induced. The patient's surgical site was then injected with 9cc of 1% lidocaine with epinephrine and 1cc of 8.4% sodium bicarbonate. The patient was then prepped and draped in sterile fashion. The procedure began with the exsanguination of the upper extremity and inflation of the tourniquet to 250mmHg. An incision was designed overlying the carpal tunnel in the palm approximately 1.5cm in length. Incision was made with a #15 blade scalpel and dissection was carried down sharply through skin, subcutaneous tissue, superficial palmar fascia, and palmaris brevis until the transverse carpalligament was encountered. This was divided sharply and the carpal tunnel entered. This was releasedproximally and distally to its full extent including antebrachial fascia using Littler scissors. The release was then confirmed and the median nerve visualized and found to be intact. The wound was irrigated, the tourniquet let down and hemostasis obtained. The wound was closed with 4-0 Prolene horizontal mattress sutures and dressed with xeroform, 4x4s, a kerlix gauze wrap, and an POLA wrap. All sponge and instrument counts were correct at the end of the procedure. The patient tolerated the procedure well and was taken to PACU in stable condition. Postoperative Plan: The patient will leave their dressing in place for 48 hours, then remove it andshower. Tylenol and Ibuprofen should be used for pain control. No lifting heavier than 2lbs with the affected hand. Follow up in 10-14 days as scheduled for suture removal and recheck. Susan Ca MD Academic Support Director - Plastic and Hand Surgery [facility] Work Phone: [phone]) 963-256805-11-2022 Note* Brief Op Note - Susan Ca MD - 10/07/2021 11:47 AM EDT Mayito Forbes ([id number]) PRE OPERATIVE DIAGNOSIS Carpal tunnel syndrome, left [G56.02] POST OPERATIVE DIAGNOSIS Post-Op Diagnosis Codes: * Carpal tunnel syndrome, left [G56.02] PROCEDURE PERFORMED Procedure(s) (LRB): DECOMPRESSION TRANSPOSITION MEDIAN NERVE (Left) PRIMARY CLOSURE Yes INTRAOPERATIVE FINDINGS No significant abnormalities SURGEON Surgeon(s) and Role: * Susan Ca MD - Primary ANESTHESIOLOGIST Anesthesiologist: Lakhwinder Connors MD CLAMP TRUCK DRIVER: Deidra Dang APRN-CLAMP TRUCK DRIVER SURGICAL STAFF Furnace Mechanic: Cynthia Trejo RN Scrub Person: Yoli Benitez Fellow: Cleveland Campbell MD COMPLICATIONS None ESTIMATED BLOOD LOSS Minimal SPECIMENS No specimen sent * No specimens in log * Susan Ca MD October 07, 2021 1:15 PM [facility]05-11-2022 Note* Nursing Notes - Deborah Rivera RN - 10/07/2021 11:43 AM EDT Reviewed AVS, discharge instructions, ice pack, prescriptions, follow-up appointment, and when to call the office with patient and patient's girlfriend. All questions answered. Peripheral iv access removed per protocol. Prescriptions sent to patient's pharmacy. Patient states readiness for discharge. Deborah Rivera RN [facility]05-11-2022 Nurse Surgical operation note* Cynthia Trejo RN - 10/07/2021 10:38 AM EDT ISBAR report given to CHEF PASSENGER VESSEL. Pt taken to PACU on cart with [facility] CLAMP TRUCK DRIVER and CMcBroom. [facility]05-11-2022 Nurse Note* Cynthia Trejo RN - 10/07/2021 10:38 AM EDT ISBAR report given to CHEF PASSENGER VESSEL. Pt taken to PACU on cart with ill CLAMP TRUCK DRIVER and CMcBroom. documented in this encounterLouis [facility] Note* Nursing Notes - Basilia Gutierrez RN - 10/07/2021 9:19 AM EDT Patient called as has not yet arrived per pt is parking now. [facility]05-11-2022 Note* Nursing Notes - Basilia Gutierrez RN - 10/07/2021 8:55 AM EDT Patient has arrival time of 0830 . Kaleigh ONEAL called patient to see estimated time of arrival. Patient states he will be here soon . [facility]05-10-2022 Hospital Discharge instructions* Discharge Instructions* Cleveland Campbell MD - 10/06/2021 11:39 PM EDT [facility] Home Care after Hand or Upper Extremity Surgery 1. PAIN CONTROL Prescription Medications: Tramadol: this is a narcotic pain medication. You may experience nausea, constipation, and/or tiredness from this medication. You should use this for breakthrough pain. Over the Counter Medications: If you are medically able to do so, take 1 Aleve 220 mg in the morning and 1 in the evening for up to 10 days after surgery. You can stop if your post-operative pain is controlled sooner. If you are medically able to do so, take Tylenol Arthritis (or any brand of acetaminophen 8-hour) every 8 hours for up to 10 days after surgery. Take no more than 4000 mg in a 24-hour period. Tylenol Arthritis plus Aleve work together as a team to make each other stronger. The maximum amount of Tylenol is 4000 mg from all sources in a 24-hour period. Remember; don t substitute any other medication for the Tylenol. It must be Tylenol (also called acetaminophen) for it to work as a team. Remember also that the Tylenol Arthritis is taken every 8 hours, or three times a day, and Aleve is only twice a day. Over the Counter Medications to take as needed: Colace: You can take this if you are taking a narcotic pain medication to prevent constipation. Hold for loose stools or diarrhea. Take 100 mg 1-2 times a day. Pepcid: You can take this while taking Naproxen/Aleve or other NSAIDs such as ibuprofen/Motrin/Advil to prevent stomach upset or Acid-reflux symptoms. Take 1 tablet 1-2 times a day. Elevation: Keep your arm elevated above the level of your heart as much as possible to prevent swelling and help with pain. Ice: You can apply an ice pack for 20 minutes at a time outside of your splint or dressing (for instance on the forearm or in your arm pit.) Put a protective layer against your skin. Other medications: You may restart your own medications that you have at home as prescribed by yourrespective physicians. 2. DRESSINGS AND WOUND CARE Remove the dressings or splint in 2 days. You may cover your incision(s) with a light dressing, band-aid or leave it uncovered. Begin washing the incision(s) gently with soap and water after the dressing is removed. Pat dry with a soft towel. Do not soak your incision(s) in water including in dish water, bath tub or hot tub. Do not use creams, salves or balms on your incision(s). 3. DIET AND ACTIVITY Drink plenty of fluids and eat light meals today. Start your regular diet when you feel up to it. Work on moving your fingers if they are available, making a fist and opening the fist. Limit your activity. No heavy lifting, pushing or pulling. 4. NERVE BLOCK You may have received a nerve block as part of your anesthesia. If so, your arm will be completely numb from the shoulder down. If you had a block, use the sling it until the block wears off, then for comfort. The length of time the block will work is different for every patient. The block often wears off suddenly and you may experience rebound pain. If this happens, do not panic. Sometimes the pain is worse when the block first wears off, then returns to a more tolerable level. You should take pain medication before your block wears off. If you wait until the feeling returns to your arm you may find it difficult to get back ahead of the pain. 5. WHAT TO EXPECT AFTER SURGERY Pain controlled with medication, ice and elevation Minimal drainage from incision Swelling 6. WHEN TO CALL YOUR DOCTOR If you cannot get your pain under control If you have a temperature greater than 101 degrees Fahrenheit For increased amounts of redness, swelling or drainage from the incision For bleeding through your dressing Other Instructions: Please be sure to eat the day of your post op appointment before you come. This can help prevent you from feeling sick or lightheaded. Do not drive, operate equipment, sign important papers or make important decisions for 24 hours after anesthesia. Smoking and all nicotine products can impair bone healing and lead to wound infections. If you smoke or use tobacco, please consider quitting or cutting back as much as possible. You should not drive if you are in a splint or sling. Contacts: If you have any questions or problems, contact your doctor s office during office hours. [facility] [address] [place] [address], [address] [place] [address] Phone: [phone]). If after hours, call or the hospital rip saw operator at and ask for the HandResident front clerk or go to your local or [facility] Emergency room. documented in this encounterOSAult[facility]05-04-[facility] History of Present illness Narrative* Marc Juan MD - 09/30/2021 9:08 PM EDT meds documented in this [id number] History of Present illness Narrative* Jamil Rock RN - 09/30/2021 11:28 AM EDT 0930- discharge discussed with Nikole Mclaughlin CNP and Dr. Juan, Dr. Juan to provide Suboxone script 1125- discharge discussed with pt, states understanding. Pt discharged with all belongings in stable condition * Kathie Fraser CNP - 09/29/2021 9:46 AM EDT [facility] [place] Assessment and Plan Mayito Forbes is a 36 y.o. male patient of Soco Paige CNP with history of polysubstance drug abuse, tobacco abuse who presented with nausea, vomiting, diarrhea. Gastroenteritis Leukocytosis CT A/P 09/27/2021: colonic wall thickening with liquid stool. With the presence of leukocytosis and low grade fever, this might represent acute infectious colitis Continue on IV ceftriaxone and Flagyl, transition to orals on discharge Continue IV fluid until tolerating adequate oral intake Continue anti emetics as needed Stool studies negative, reports ongoing diarrhea Nausea vomiting and diarrhea Possible combination of gastroenteritis as well as withdrawal, started on droperidol Patient states he relapsed on fentanyl Urine drug screen +buprenorphine, fentanyl, cannabinoid Started on clear liquid diet, advance to target Repeat ECG to assess CT prolongation ordered Continue IV fluid until tolerating adequate oral intake Polysubstance Drug abuse Urine drug screen +buprenorphine, fentanyl, cannabinoid Addiction medicine following, recommending buprenorphine, consulting [facility] team Code Status: Full Code Quality Measures DVT Prophylaxis: - enoxaparin (LOVENOX) syringe 40 mg Akhtar Catheter: None Disposition Discharge Location: Home Estimated Discharge Date: 09/30/21 Outpatient Testing: None Subjective Patient reports significant improvement in nausea and abdominal discomfort. States he is still having loose bowel movements. Review of Systems All systems have been reviewed and are negative except as noted in HPI or below Objective BP 138/86 Pulse 90 Temp 98.9 F (37.2 C) (Oral) Resp 16 Ht 5' 9 Wt 83.4 kg (183 lb 13.8 oz) SpO2 95% BMI 27.15 kg/m Physical Examination General Appearance: alert; well appearing; in no acute distress HEENT: Head- normocephalic; Eyes- EOMI, sclera anicteric; Ears- hearing intact; Nose- no nasal discharge; Throat- mucous membranes moist Cardiovascular: regular rate and rhythm; normal S1, S2; no murmurs, rubs, clicks or gallops; no peripheral edema Respiratory: lungs clear to auscultation; without wheezes, rales or rhonchi; on room air Abdomen: soft, non-tender, non-distended; positive bowel sounds Neurological: oriented x 3; normal speech; no focal findings or movement disorder noted Musculoskeletal: no significant deformity or tenderness to palpation Skin: normal coloration; no obvious rashes, lesions or skin breakdown Psych: normal mood and affect Results/Medications Reviewed 09/29/2021 11:03 AM Laboratory, Microbiology, Pathology, Radiology, Cardiology, Medications and Transcriptions * Marcel Cuellar MD - 09/28/2021 11:05 AM EDT [facility] [place] Assessment and Plan Mayito Forbes is a 36 y.o. male patient of Soco Paige CNP with history of polysubstance drug abuse, tobacco abuse who presented with nausea, vomiting, diarrhea. Gastroenteritis - CT A/P 09/27/2021: colonic wall thickening with liquid stool. With the presence of leukocytosis andlow grade fever, this might represent acute infectious colitis Currently remains on ceftriaxone and Flagyl Continue IV fluid - anti emetics as needed -Stool studies pending Nausea vomiting and diarrhea Possible combination of gastroenteritis as well as withdrawal Patient states he relapsed on fentanyl urine drug screen +buprenorphine, fentanyl, cannabinoi Polysubstance Drug abuse - urine drug screen +buprenorphine, fentanyl, cannabinoid \Consult addiction medicine Family Contact Information: Code Status: Full Code Quality Measures DVT Prophylaxis: lovenox Subjective Reports of nausea this morning with couple episodes of vomiting. Reports of using fentanyl recently. Also notes intermittent diarrhea last night. Denies any fever, chills, shortness of breath, chest pain No acute event overnight per nurse Review of Systems All systems have been reviewed and are negative except as noted in HPI or below Objective BP (!) 148/97 Pulse 74 Temp 99.6 F (37.6 C) (Oral) Resp 16 Ht 5' 9 Wt 83.4 kg (183 lb 13.8 oz) SpO2 94% BMI 27.15 kg/m Physical Examination General Appearance: alert; acutely ill appearing; in moderate acute distress HEENT: Head- normocephalic; Eyes- EOMI, sclera anicteric; Ears- hearing intact; Nose- no nasal discharge; Throat- mucous membranes moist Cardiovascular: regular rate and rhythm; normal S1, S2; no peripheral edema Respiratory: lungs clear to auscultation; without wheezes, rales or rhonchi; on room air Abdomen: soft, moderate tenderness periubilical, non-distended; positive bowel sounds Neurological: oriented x 3; normal speech; no focal findings or movement disorder noted Musculoskeletal: no significant deformity or tenderness to palpation Skin: normal coloration; no obvious rashes, lesions or skin breakdown Psych: normal mood and affect Results/Medications Reviewed 09/28/2021 11:05 AM Laboratory, Radiology, Cardiology and Medications CT abdomen personally reviewed shows colon wall thickening * Jacinto Hale MD - 09/27/2021 9:13 AM EDT [facility] [place] PRO[facility]ESS [place] Assessment and Plan Mayito Forbes is a 36 y.o. male patient of Soco Paige CNP with history of polysubstance drug abuse, tobacco abuse who presented with nausea, vomiting, diarrhea. Gastroenteritis - CT A/P 09/27/2021: colonic wall thickening with liquid stool. With the presence of leukocytosis andlow grade fever, this might represent acute infectious colitis. No abx were started on admission I will start ceftriaxone and flagyl - LR 2 liter boluses - LR maintenance fluids - anti emetics as needed - check GI/stool PCR Consider GI consult Sepsis Leukocytosis and low grade fever. Follow cultures Started abx. Polysubstance Drug abuse - urine drug screen +buprenorphine, fentanyl, cannabinoid Family Contact Information: Code Status: Full Code Quality Measures DVT Prophylaxis: lovenox Subjective Feels terrible, still with N and V as well as periumbilical abd pain Had a low grade fever off 100.1 Review of Systems All systems have been reviewed and are negative except as noted in HPI or below Objective BP 138/82 Pulse (!) 50 Temp 100.1 F (37.8 C) (Oral) Resp 16 Ht 5' 9 Wt 83.4 kg (183 lb 13.8 oz) SpO2 99% BMI 27.15 kg/m Physical Examination General Appearance: alert; acutely ill appearing; in moderate acute distress HEENT: Head- normocephalic; Eyes- EOMI, sclera anicteric; Ears- hearing intact; Nose- no nasal discharge; Throat- mucous membranes moist Cardiovascular: regular rate and rhythm; normal S1, S2; no peripheral edema Respiratory: lungs clear to auscultation; without wheezes, rales or rhonchi; on room air Abdomen: soft, moderate tenderness periubilical, non-distended; positive bowel sounds Neurological: oriented x 3; normal speech; no focal findings or movement disorder noted Musculoskeletal: no significant deformity or tenderness to palpation Skin: normal coloration; no obvious rashes, lesions or skin breakdown Psych: normal mood and affect Results/Medications Reviewed 09/27/2021 9:13 AM Laboratory, Radiology, Cardiology and Medications documented in this [id number] Hospital course Narrative* Nikole Hoyt CNP - 09/30/2021 10:52 AM EDT Images from the original note were not included. [facility] [place] Mayito Forbes Admitted: 09/26/2021 Discharge Date: 09/30/21 PCP Handoff Recommended Outpatient Testing none Results Pending At Discharge None Clinical Summary Mayito Forbes is a 36 y.o. male patient of Soco Paige CNP with history of polysubstance drug abuse, tobacco abuse who presented with nausea, vomiting, diarrhea. Gastroenteritis Leukocytosis CT A/P 09/27/2021: colonic wall thickening with liquid stool. With the presence of leukocytosis and low grade fever, this might represent acute infectious colitis Continue on IV ceftriaxone and Flagyl, transition to orals on discharge Continue IV fluid until tolerating adequate oral intake Continue anti emetics as needed Stool studies negative, reports ongoing diarrhea 09-30-2021 sitting up in chair and wants to be discharged home. He is eating with no nausea or vomiting and hasn o belly pain. Will discharge with 5 days of flagyl and levaquin. Nausea vomiting and diarrhea Possible combination of gastroenteritis as well as withdrawal, started on droperidol Patient states he relapsed on fentanyl Urine drug screen +buprenorphine, fentanyl, cannabinoid Started on clear liquid diet, advance to target Repeat ECG to assess CT prolongation ordered Continue IV fluid until tolerating adequate oral intake Polysubstance Drug abuse Urine drug screen +buprenorphine, fentanyl, cannabinoid Addiction medicine following, recommending buprenorphine, consulting [facility] team Message sent to Dr Juan regarding suboxone prescription Discharge Medications Discharge Medications New Medications Details levoFLOXacin 500 MG tablet Commonly known as: LEVAQUIN Take 1 (one) tablet (500 mg total) by mouth daily . Quantity: 5 tablet metroNIDAZOLE 500 MG tablet Commonly known as: FLAGYL Take 1 (one) tablet (500 mg total) by mouth 3 (three) times a day with meals for 5 days . Quantity: 15 tablet Medications To Continue Details baclofen 10 MG tablet Commonly known as: LIORESAL Take 20 mg TID X 6 doses then 10 mg TID X 9 doses . Quantity: 21 tablet cloNIDine HCL 0.1 MG tablet Commonly known as: CATAPRES Take 1 (one) tablet (0.1 mg total) by mouth 2 (two) times a day for 7 days . Quantity: 14 tablet famotidine 20 MG tablet Commonly known as: PEPCID Take 1 (one) tablet (20 mg total) by mouth 2 (two) times a day for 10 doses . Quantity: 10 tablet ondansetron 4 MG tablet Commonly known as: ZOFRAN Take 1 (one) tablet (4 mg total) by mouth every 8 (eight) hours as needed for nausea . Quantity: 15 tablet pantoprazole 40 MG tablet Commonly known as: PROTONIX Take 1 (one) tablet (40 mg total) by mouth daily . Quantity: 30 tablet * promethazine 25 MG tablet Commonly known as: PHENERGAN Take 1 (one) tablet (25 mg total) by mouth every 6 (six) hours as needed for nausea . Quantity: 10 tablet * promethazine 25 MG tablet Commonly known as: PHENERGAN Take 1 (one) tablet (25 mg total) by mouth every 4 (four) hours as needed for nausea . Quantity: 10 tablet topiramate 25 MG tablet Commonly known as: TOPAMAX Take 1 (one) tablet (25 mg total) by mouth 2 (two) times a day . Quantity: 30 tablet * There are duplicate medications prescribed to the patient Physician(s) Follow Up: Soco Paige CNP [address] [id number] Follow up Condition at Discharge: Good Disposition: Home On day of discharge, I performed a final bedside evaluation including a physical exam. I reviewed discharge recommendations with the patient in person. Patient instructions, including activity, were given to the patient/family at discharge. Time spent on discharge: > 30 minutes Completed by: Nikole Hoyt on 09/30/21, 10:52 AM Associated attestation - González Hearn MD - 09/30/2021 11:12 AM EDT Patient seen, evaluated and managed by NOE independently. I was not involved in the care of this patient, but was readily available for consultation if needed by [employer]. documented in this [id number] Consult note* Marc Juan MD - 09/29/2021 3:47 PM EDTAssociated Order(s): IP CONSULT TO ADDICTION MEDICINE ADDICTION MEDICINE CONSULT NOTE Patient Name: Mayito Forbes Admit Date: [id number] MR #: [id number] : 1985 Physicians: Soco Paige CNP (Family); No ref. provider found (referring) Principal Problem: Gastroenteritis Active Problems: Acute colitis Assessment and Plan: OPIATE USE 1. Says wants to get to Vivitrol but not now. Will continue buprenorphine 4 mg BID until his appointment reportedly with Amrita on Tuesday at 10:30 am. 2. Does not seem to need much supportive meds at this point. Does not want to go to inpatient to get to Vivitrol and hesitate more than one 8 mg strip since okay and states he would stockpile and sell / trade extras. Assessment Detail: The total time spent for this visit was 50 to 55 minutes. Greater than 50% of the time was spent incounseling and coordination of care. Reason for Consult: Buprenorphine induction. Management of substance use disorder Linking to outpatient services. Counseling services. History of Present Illness: Mayito Forbes is a 36 y.o. y/o male presenting from home with c/o sick Chief Complaint Patient presents with Nausea Jaw Pain Patient was seen in room 2126 with tablets of bring him NOE. Patient stated he has been waiting to see me. He states that Avi had contacted him yesterday and arrange for him to have a follow-up intake at 10:30 AM on Tuesday. He does want to get to Vivitrol but states that he does not want to taperuntil he sees providers on Tuesday. 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 Patient states his stomach is feeling much better and he is looking forward to getting real food and hopefully going home tomorrow. He is not having any current withdrawal symptoms. I have talked to the patient yesterday and started him back on buprenorphine which she states has helped significantly. He does state that he had used fentanyl up to last Tuesday and had started feeling a little sick but then when he took buprenorphine he got very sick with precipitated withdrawal symptoms and that is what actually had him go to the hospital where they found his colitisvaried but multiple failed ur Past Medical History: Diagnosis Date Depression Past Surgical History: Procedure Laterality Date MANDIBLE FRACTURE SURGERY 06/26/2011 History reviewed. No pertinent family history. Social History Socioeconomic History Marital status: Single Tobacco Use Smoking status: Current Every Day Smoker Packs/day: 0.50 Years: 10.00 Pack years: 5.00 Smokeless tobacco: Never Used Vaping Use Vaping Use: Never used Substance and Sexual Activity Alcohol use: Never Drug use: Not Currently Types: Other Comment: HEROIN AOD History: No problems updated. Drug(s) of Choice fentanyl Treatment history: Multiple agencies and kicked out for failed urine drug screens Longest period of sobriety:? Couple weeks at a time? OD history: yes Typical withdrawal symptoms: anxiety, sweating, nausea, diarrhea, vomiting, cold sweats and tremors History of precipitated withdrawal: yes Seizure history: no Psychiatric History: Diagnoses: no Provider: no SI or SA: no Previous Medications Medication Sig baclofen (LIORESAL) 10 MG tablet Take 20 mg TID X 6 doses then 10 mg TID X 9 doses . cloNIDine HCL (CATAPRES) 0.1 MG tablet Take 1 (one) tablet (0.1 mg total) by mouth 2 (two) times a day for 7 days . famotidine (PEPCID) 20 MG tablet Take 1 (one) tablet (20 mg total) by mouth 2 (two) times a day for10 doses . ondansetron (ZOFRAN) 4 MG tablet Take 1 (one) tablet (4 mg total) by mouth every 8 (eight) hours asneeded for nausea . pantoprazole (PROTONIX) 40 MG tablet Take 1 (one) tablet (40 mg total) by mouth daily . promethazine (PHENERGAN) 25 MG tablet Take 1 (one) tablet (25 mg total) by mouth every 6 (six) hours as needed for nausea . promethazine (PHENERGAN) 25 MG tablet Take 1 (one) tablet (25 mg total) by mouth every 4 (four) hours as needed for nausea . topiramate (TOPAMAX) 25 MG tablet Take 1 (one) tablet (25 mg total) by mouth 2 (two) times a day . No Known Allergies Review of Systems All other systems reviewed and are negative. Patient Vitals for the past 24 hrs: BP Temp Temp src Pulse Resp SpO2 09/29/21 1510 (!) 152/94 98.1 F (36.7 C) Oral 70 16 94 % 09/29/21 0730 -- -- -- -- 16 -- 09/29/21 0712 138/86 98.9 F (37.2 C) Oral 90 -- 95 % 09/28/21 2017 (!) 152/94 99.9 F (37.7 C) Oral 80 18 98 % Physical Exam Vitals reviewed. Constitutional: Appearance: Normal appearance. He is well-developed. HENT: Head: Normocephalic. Eyes: General: No scleral icterus. Conjunctiva/sclera: Conjunctivae normal. Pupils: Pupils are equal, round, and reactive to light. Comments: 2 mm Cardiovascular: Rate and Rhythm: Normal rate. Pulmonary: Effort: Pulmonary effort is normal. Musculoskeletal: General: Normal range of motion. Cervical back: Neck supple. Skin: General: Skin is warm and dry. Neurological: General: No focal deficit present. Mental Status: He is alert and oriented to person, place, and time. Psychiatric: Behavior: Behavior normal. Comments: Not the best plans long-term even though it is done as a couple times Allergy Information: I have reviewed the patient's allergies. Patient has no known allergies. Home Medications: Outpatient Medications as of 09/29/2021 Medication Sig baclofen (LIORESAL) 10 MG tablet Take 20 mg TID X 6 doses then 10 mg TID X 9 doses . promethazine (PHENERGAN) 25 MG tablet Take 1 (one) tablet (25 mg total) by mouth every 6 (six) hours as needed for nausea . promethazine (PHENERGAN) 25 MG tablet Take 1 (one) tablet (25 mg total) by mouth every 4 (four) hours as needed for nausea . Laboratory & Radiographic Imaging (if done): Recent Results (from the past 24 hour(s)) ECG 12 Lead Collection Time: 09/28/21 6:17 PM Result Value Ref Range Ventricular Rate 78 BPM Atrial Rate 78 BPM P-R Interval 154 ms QRS Duration 88 ms Q-T Interval 382 ms QTC Calculation (Bezet) 435 ms P [place] 75 degrees R [place] 72 degrees T [place] 42 degrees ECG 12 Lead Collection Time: 09/29/21 7:43 AM Result Value Ref Range Ventricular Rate 70 BPM Atrial Rate 70 BPM P-R Interval 154 ms QRS Duration 86 ms Q-T Interval 402 ms QTC Calculation (Bezet) 434 ms P [place] 63 degrees R [place] 18 degrees T [place] 43 degrees Lab Results Component Value Date AMPHUR None Detected 09/27/2021 BARBUR None Detected 09/27/2021 BENZUR None Detected 09/27/2021 THCUR Presumptive Positive (A) 09/27/2021 COCAINESUR None Detected 09/27/2021 URMETH None Detected 09/27/2021 OPIATEUR None Detected 09/27/2021 UROXYCODONE None Detected 09/27/2021 FENTANYLUR Presumptive Positive (A) 09/27/2021 BUPUR Presumptive Positive (A) 09/27/2021 CT Abdomen Pelvis With IV Contrast Only Final Result 1. Colonic wall thickening with liquid stool in the distal sigmoid colon through the rectum. The colonic wall thickening could be secondary to nondistention versus an infectious or inflammatory colitis with diarrhea. 2. Mild splenomegaly. 3. Normal appendix. 4. Urinary bladder wall thickening. Please correlate with urinalysis for infection. 5. Small right hydrocele. [facility]/s Workstation ID: [id number] CT Maxillofacial Without Contrast Final Result 1. No acute intracranial abnormality is seen. No hemorrhage or mass effect. 2. No facial fracture or bone displacement is seen. Workstation ID: [id number] CT Head Or Brain Without Contrast Final Result 1. No acute intracranial abnormality is seen. No hemorrhage or mass effect. 2. No facial fracture or bone displacement is seen. Workstation ID: [id number] Marc Juan MD This note was dictated using voice-recognition software for expedited communication. Please kindly excuse any typos or mis-recognized words. [id number] Consult note* Marc Juan MD - 09/29/2021 3:47 PM EDTAssociated Order(s): IP CONSULT TO ADDICTION MEDICINE ADDICTION MEDICINE CONSULT NOTE Patient Name: Mayito Forbes Admit Date: [id number] MR #: [id number] : 1985 Physicians: Soco Paige CNP (Family); No ref. provider found (referring) Principal Problem: Gastroenteritis Active Problems: Acute colitis Assessment and Plan: OPIATE USE 1. Says wants to get to Vivitrol but not now. Will continue buprenorphine 4 mg BID until his appointment reportedly with Amrita on Tuesday at 10:30 am. 2. Does not seem to need much supportive meds at this point. Does not want to go to inpatient to get to Vivitrol and hesitate more than one 8 mg strip since okay and states he would stockpile and sell / trade extras. Assessment Detail: The total time spent for this visit was 50 to 55 minutes. Greater than 50% of the time was spent incounseling and coordination of care. Reason for Consult: Buprenorphine induction. Management of substance use disorder Linking to outpatient services. Counseling services. History of Present Illness: Mayito Forbes is a 36 y.o. y/o male presenting from home with c/o sick Chief Complaint Patient presents with Nausea Jaw Pain Patient was seen in room 2126 with tablets of bring him NOE. Patient stated he has been waiting to see me. He states that Avi had contacted him yesterday and arrange for him to have a follow-up intake at 10:30 AM on Tuesday. He does want to get to Vivitrol but states that he does not want to taperuntil he sees providers on Tuesday. 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 Patient states his stomach is feeling much better and he is looking forward to getting real food and hopefully going home tomorrow. He is not having any current withdrawal symptoms. I have talked to the patient yesterday and started him back on buprenorphine which she states has helped significantly. He does state that he had used fentanyl up to last Tuesday and had started feeling a little sick but then when he took buprenorphine he got very sick with precipitated withdrawal symptoms and that is what actually had him go to the hospital where they found his colitisvaried but multiple failed ur Past Medical History: Diagnosis Date Depression Past Surgical History: Procedure Laterality Date MANDIBLE FRACTURE SURGERY 06/26/2011 History reviewed. No pertinent family history. Social History Socioeconomic History Marital status: Single Tobacco Use Smoking status: Current Every Day Smoker Packs/day: 0.50 Years: 10.00 Pack years: 5.00 Smokeless tobacco: Never Used Vaping Use Vaping Use: Never used Substance and Sexual Activity Alcohol use: Never Drug use: Not Currently Types: Other Comment: HEROIN AOD History: No problems updated. Drug(s) of Choice fentanyl Treatment history: Multiple agencies and kicked out for failed urine drug screens Longest period of sobriety:? Couple weeks at a time? OD history: yes Typical withdrawal symptoms: anxiety, sweating, nausea, diarrhea, vomiting, cold sweats and tremors History of precipitated withdrawal: yes Seizure history: no Psychiatric History: Diagnoses: no Provider: no SI or SA: no Previous Medications Medication Sig baclofen (LIORESAL) 10 MG tablet Take 20 mg TID X 6 doses then 10 mg TID X 9 doses . cloNIDine HCL (CATAPRES) 0.1 MG tablet Take 1 (one) tablet (0.1 mg total) by mouth 2 (two) times a day for 7 days . famotidine (PEPCID) 20 MG tablet Take 1 (one) tablet (20 mg total) by mouth 2 (two) times a day for10 doses . ondansetron (ZOFRAN) 4 MG tablet Take 1 (one) tablet (4 mg total) by mouth every 8 (eight) hours asneeded for nausea . pantoprazole (PROTONIX) 40 MG tablet Take 1 (one) tablet (40 mg total) by mouth daily . promethazine (PHENERGAN) 25 MG tablet Take 1 (one) tablet (25 mg total) by mouth every 6 (six) hours as needed for nausea . promethazine (PHENERGAN) 25 MG tablet Take 1 (one) tablet (25 mg total) by mouth every 4 (four) hours as needed for nausea . topiramate (TOPAMAX) 25 MG tablet Take 1 (one) tablet (25 mg total) by mouth 2 (two) times a day . No Known Allergies Review of Systems All other systems reviewed and are negative. Patient Vitals for the past 24 hrs: BP Temp Temp src Pulse Resp SpO2 09/29/21 1510 (!) 152/94 98.1 F (36.7 C) Oral 70 16 94 % 09/29/21 0730 -- -- -- -- 16 -- 09/29/21 0712 138/86 98.9 F (37.2 C) Oral 90 -- 95 % 09/28/21 2017 (!) 152/94 99.9 F (37.7 C) Oral 80 18 98 % Physical Exam Vitals reviewed. Constitutional: Appearance: Normal appearance. He is well-developed. HENT: Head: Normocephalic. Eyes: General: No scleral icterus. Conjunctiva/sclera: Conjunctivae normal. Pupils: Pupils are equal, round, and reactive to light. Comments: 2 mm Cardiovascular: Rate and Rhythm: Normal rate. Pulmonary: Effort: Pulmonary effort is normal. Musculoskeletal: General: Normal range of motion. Cervical back: Neck supple. Skin: General: Skin is warm and dry. Neurological: General: No focal deficit present. Mental Status: He is alert and oriented to person, place, and time. Psychiatric: Behavior: Behavior normal. Comments: Not the best plans long-term even though it is done as a couple times Allergy Information: I have reviewed the patient's allergies. Patient has no known allergies. Home Medications: Outpatient Medications as of 09/29/2021 Medication Sig baclofen (LIORESAL) 10 MG tablet Take 20 mg TID X 6 doses then 10 mg TID X 9 doses . promethazine (PHENERGAN) 25 MG tablet Take 1 (one) tablet (25 mg total) by mouth every 6 (six) hours as needed for nausea . promethazine (PHENERGAN) 25 MG tablet Take 1 (one) tablet (25 mg total) by mouth every 4 (four) hours as needed for nausea . Laboratory & Radiographic Imaging (if done): Recent Results (from the past 24 hour(s)) ECG 12 Lead Collection Time: 09/28/21 6:17 PM Result Value Ref Range Ventricular Rate 78 BPM Atrial Rate 78 BPM P-R Interval 154 ms QRS Duration 88 ms Q-T Interval 382 ms QTC Calculation (Bezet) 435 ms P [place] 75 degrees R [place] 72 degrees T [place] 42 degrees ECG 12 Lead Collection Time: 09/29/21 7:43 AM Result Value Ref Range Ventricular Rate 70 BPM Atrial Rate 70 BPM P-R Interval 154 ms QRS Duration 86 ms Q-T Interval 402 ms QTC Calculation (Bezet) 434 ms P [place] 63 degrees R [place] 18 degrees T [place] 43 degrees Lab Results Component Value Date AMPHUR None Detected 09/27/2021 BARBUR None Detected 09/27/2021 BENZUR None Detected 09/27/2021 THCUR Presumptive Positive (A) 09/27/2021 COCAINESUR None Detected 09/27/2021 URMETH None Detected 09/27/2021 OPIATEUR None Detected 09/27/2021 UROXYCODONE None Detected 09/27/2021 FENTANYLUR Presumptive Positive (A) 09/27/2021 BUPUR Presumptive Positive (A) 09/27/2021 CT Abdomen Pelvis With IV Contrast Only Final Result 1. Colonic wall thickening with liquid stool in the distal sigmoid colon through the rectum. The colonic wall thickening could be secondary to nondistention versus an infectious or inflammatory colitis with diarrhea. 2. Mild splenomegaly. 3. Normal appendix. 4. Urinary bladder wall thickening. Please correlate with urinalysis for infection. 5. Small right hydrocele. [facility] Workstation ID: [id number] CT Maxillofacial Without Contrast Final Result 1. No acute intracranial abnormality is seen. No hemorrhage or mass effect. 2. No facial fracture or bone displacement is seen. Workstation ID: [id number] CT Head Or Brain Without Contrast Final Result 1. No acute intracranial abnormality is seen. No hemorrhage or mass effect. 2. No facial fracture or bone displacement is seen. Workstation ID: [id number] Marc Juan MD This note was dictated using voice-recognition software for expedited communication. Please kindly excuse any typos or mis-recognized words. * Marc Juan MD - 09/28/2021 5:46 PM EDT [facility] ADDICTION MEDICINE CONSULT NOTE Patient Name: Mayito Forbes Admit Date: [id number] MR #: [id number] : 1985 Physicians: Soco Paige CNP (Family); No ref. provider found (referring) Ordering Provider: Principal Problem: Gastroenteritis Active Problems: Acute colitis Assessment and Plan: OPIATE ABUSE with precipitated withdrawal and colitis 1. Will induce back onto buprenorphine with the goal to stabilize and eventually taper. 2. Will see if he truly can get back with [facility] or if he needs to get to another place forcounseling. Will get the [facility] team involved. Assessment Detail: The total time spent for this visit was 35 to 40 minutes. Greater than 50% of the time was spent incoordination of care of [facility]. Reason for Consult: Medical management of opioid use disorder. Pain management with concurrent substance use disorder. Management of substance use disorder Linking to outpatient services. Counseling services. History of Present Illness: Mayito Forbes is a 36 y.o. y/o male presenting from home with c/o vomiting Chief Complaint Patient presents with Nausea Jaw Pain Spoke with the patient via Needcheck with his nurse Jamil Rock. He is currently in room 2126. I had seen him in June at the withdrawal unit as he was hoping to get detoxified and onto Vivitrol. This did not work out and he has required bilateral carpal tunnel surgery of which only the right has been completed and the left was supposed to have been done today down in [place]. [facility] however admittedly had been treating her selling this in order to get fentanyl. He states he last used fentanyl on Tuesday evening. He had 6 mg of Suboxone leftover and took it all Tuesday night and became quite ill and in precipitated withdrawal shortly before presenting to the emergency department where he was found to have colitis. He nowis starting to go through opiate withdrawal and does want to get to Vivitrol however he is not in aposition to do counseling etc. and does need to have a left carpal tunnel surgery. After discussionwe will initiate back on buprenorphine to minimize his withdrawal and he felt this would be enough for his pain. We will get him in a position for stabilizing and tapering but will need to get back into counseling in order to have the best success. He thinks he can go back to [facility] for counseling but not for that MAT program. We will get the sun team involved. 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 Past Medical History: Diagnosis Date Depression Past Surgical History: Procedure Laterality Date MANDIBLE FRACTURE SURGERY 06/26/2011 History reviewed. No pertinent family history. Social History Socioeconomic History Marital status: Single Tobacco Use Smoking status: Current Every Day Smoker Packs/day: 0.50 Years: 10.00 Pack years: 5.00 Smokeless tobacco: Never Used Vaping Use Vaping Use: Never used Substance and Sexual Activity Alcohol use: Never Drug use: Not Currently Types: Other Comment: HEROIN AOD History: opiates failing buprenorphine Treatment history: most recently [facility] Longest period of sobriety: ? OD history: no. but recent precipitated withdrawal Typical withdrawal symptoms: ? Seizure history: no Psychiatric History: Diagnoses: Colitis with Opiate withdrawal Previous Medications Medication Sig baclofen (LIORESAL) 10 MG tablet Take 20 mg TID X 6 doses then 10 mg TID X 9 doses . cloNIDine HCL (CATAPRES) 0.1 MG tablet Take 1 (one) tablet (0.1 mg total) by mouth 2 (two) times a day for 7 days . famotidine (PEPCID) 20 MG tablet Take 1 (one) tablet (20 mg total) by mouth 2 (two) times a day for10 doses . ondansetron (ZOFRAN) 4 MG tablet Take 1 (one) tablet (4 mg total) by mouth every 8 (eight) hours asneeded for nausea . pantoprazole (PROTONIX) 40 MG tablet Take 1 (one) tablet (40 mg total) by mouth daily . promethazine (PHENERGAN) 25 MG tablet Take 1 (one) tablet (25 mg total) by mouth every 6 (six) hours as needed for nausea . promethazine (PHENERGAN) 25 MG tablet Take 1 (one) tablet (25 mg total) by mouth every 4 (four) hours as needed for nausea . topiramate (TOPAMAX) 25 MG tablet Take 1 (one) tablet (25 mg total) by mouth 2 (two) times a day . [DISCONTINUED] buprenorphine-nalOXone (Suboxone) 8-[address] 2 Film under the tongue Last filled 09/17/21, #14/7 day supply per GAUTAM . No Known Allergies Patient Vitals for the past 24 hrs: BP Temp Temp src Pulse Resp SpO2 09/28/21 1505 (!) 152/87 99.8 F (37.7 C) Oral 70 18 99 % 09/28/21 0800 -- -- -- -- 16 -- 09/28/21 0708 (!) 148/97 99.6 F (37.6 C) Oral 74 14 94 % 09/27/21 2124 (!) 149/79 99.5 F (37.5 C) Oral 81 18 96 % 09/27/212003 -- -- -- -- 18 -- Allergy Information: I have reviewed the patient's allergies. Patient has no known allergies. Home Medications: Outpatient Medications as of 09/28/2021 Medication Sig baclofen (LIORESAL) 10 MG tablet Take 20 mg TID X 6 doses then 10 mg TID X 9 doses . promethazine (PHENERGAN) 25 MG tablet Take 1 (one) tablet (25 mg total) by mouth every 6 (six) hours as needed for nausea . promethazine (PHENERGAN) 25 MG tablet Take 1 (one) tablet (25 mg total) by mouth every 4 (four) hours as needed for nausea . Laboratory & Radiographic Imaging (if done): Recent Results (from the past 24 hour(s)) Comprehensive Metabolic Panel Collection Time: 09/28/21 7:40 AM Result Value Ref Range Sodium 140 135 - 145 mmol/L Potassium 3.6 3.5 - 5.1 mmol/L Chloride 105 98 - 108 mmol/L Bicarbonate 27 21 - 32 mmol/L Anion Gap 12 10 - 20 mmol/L Glucose 113 (H) 65 - 99 mg/dL BUN 12 8 - 25 mg/dL Creatinine 0.84 0.50 - 1.30 mg/dL eGFR 113 >=60 mL/min/1.73 m2 BUN/Creatinine Ratio 14.3 10.0 - 20.0 Total Protein 7.7 6.0 - 8.0 g/dL Albumin 3.9 3.2 - 5.2 g/dL Calcium 9.6 8.4 - 10.2 mg/dL Alkaline Phosphatase 92 40 - 140 U/L AST 22 0 - 45 U/L Total Bilirubin 0.5 0.0 - 1.3 mg/dL ALT 44 14 - 65 U/L Magnesium Collection Time: 09/28/21 7:40 AM Result Value Ref Range Magnesium 1.6 1.6 - 2.4 mg/dL CBC Auto Differential Collection Time: 09/28/21 7:40 AM Result Value Ref Range WBC 11.56 (H) 4.50 - 11.00 K/mcL RBC 5.17 4.50 - 5.90 M/mcL Hemoglobin 15.2 13.5 - 17.5 g/dL Hematocrit 44.4 41.0 - 53.0 % MCV 85.9 80.0 - 100.0 fL MCH 29.4 26.0 - 34.0 pg MCHC 34.2 31.0 - 37.0 g/dL Platelets 385 150 - 400 K/mcL RDW - CV 12.2 11.6 - 14.8 % MPV 8.5 (L) 9.4 - 12.4 fL Neutrophils 82.4 % Lymphocytes 10.6 % Monocytes 6.1 % Eosinophils 0.1 % Basophils 0.3 % IG Percent 0.50 % Neutrophils Abs 9.53 (H) 1.70 - 7.00 K/mcL Lymphocytes Abs 1.22 0.90 - 4.00 K/mcL Monocytes Abs 0.71 0.30 - 0.90 K/mcL Eosinophils Abs 0.01 0.00 - 0.50 K/mcL Basophils Abs 0.03 0.00 - 0.30 K/mcL IG Absolute 0.06 0.00 - 0.30 K/mcL Nucleated RBC 0.0 % Nucleated RBC Abs 0.00 0.00 - 0.00 K/mcL Stool/GI PCR Panel Collection Time: 09/28/21 9:19 AM Specimen: Stool Result Value Ref Range Campylobacter species Not Detected Not Detected Clostridium difficile Toxin A/B Not Detected Not Detected Plesiomonas shigelloides Not Detected Not Detected Salmonella species Not Detected Not Detected Vibrio species Not Detected Not Detected Vibrio chloreae Not Detected Not Detected Yersinia enterocolitica Not Detected Not Detected Enteroaggregative E. coli (EAEC) Not Detected Not Detected Enteropathogenic E. coli (EPEC) Not Detected Not Detected Enterotoxigenic E. coli (ETEC) Not Detected Not Detected Shiga-like toxin-producing E. coli (STEC) 1/2 Not Detected Not Detected Shigella/Enteroinvasive E. coli (EIEC) Not Detected Not Detected Cryptosporidium species Not Detected Not Detected Cyclospora cayetanensis Not Detected Not Detected Entamoeba histolytica Not Detected Not Detected Giardia lamblia Not Detected Not Detected Adenovirus F 40/41 Not Detected Not Detected Astrovirus Not Detected Not Detected Norovirus GI/GII Not Detected Not Detected Rotavirus A Not Detected Not Detected Sapovirus Not Detected Not Detected CT Abdomen Pelvis With IV Contrast Only Final Result 1. Colonic wall thickening with liquid stool in the distal sigmoid colon through the rectum. The colonic wall thickening could be secondary to nondistention versus an infectious or inflammatory colitis with diarrhea. 2. Mild splenomegaly. 3. Normal appendix. 4. Urinary bladder wall thickening. Please correlate with urinalysis for infection. 5. Small right hydrocele. [facility] Workstation ID: [id number] CT Maxillofacial Without Contrast Final Result 1. No acute intracranial abnormality is seen. No hemorrhage or mass effect. 2. No facial fracture or bone displacement is seen. Workstation ID: [id number] CT Head Or Brain Without Contrast Final Result 1. No acute intracranial abnormality is seen. No hemorrhage or mass effect. 2. No facial fracture or bone displacement is seen. Workstation ID: [id number] documented in this [id number] Note* Plan of Care - Conrado Yancey MD - 09/28/2021 5:59 PM EDT Refractory nausea despite Zofran, Reglan, unable to take p.o. Phenergan. EKG September 27 reviewed, QTC of 440. Check repeat EKG to assess QTC. Start droperidol (only antiemetic medication better than placebo in the randomized trials), monitorEKG daily, ordered for tomorrow, will give IV potassium. [facility] Work Phone: [phone] [phone] Miscellaneous Notes* Plan of Care - Conrado Yancey MD - 09/28/2021 5:59 PM EDT Refractory nausea despite Zofran, Reglan, unable to take p.o. Phenergan. EKG September 27 reviewed, QTC of 440. Check repeat EKG to assess QTC. Start droperidol (only antiemetic medication better than placebo in the randomized trials), monitorEKG daily, ordered for tomorrow, will give IV potassium. * Quick Note - Steffany Soto RN - 09/27/2021 6:15 AM EDT Pt admitted to inpatient unit. Pulled from ER cot to bed with 3 assist. Pt weak and not interactive. Must repeat questions multiple times to get an answer. Reluctant to move or speak d/t weakness andnausea * ED Attestation Note - Drake Sandoval MD - 09/27/2021 3:34 AM EDT ED Attestation: I have reviewed the Advanced Practice Provider's (MARYELLEN's) documention. In addition, I have personally introduced myself to the patient, and have taken his history and performed an examination. I agree with the physical findings, management, clinical impression and disposition. In brief, he is a 36 y.o. male who presents with a chief complaint of Nausea and Jaw Pain. After my evaluation, I noticed patient will be admitted. Patient has history of gastroparesis. Patient has an intractable nausea and vomiting. On exam has no peritoneal findings. Patient given medications here without relief. Patient states his jaw is sore but he is able to vomit at bedside withoutissue. Patient also has incontinence of stool with diarrhea at bedside. Patient has stable blood work. CAT scans out issue. Patient will be admitted due to his intractable nausea and vomiting for IV fluids, symptom control and further assessment. Drake Sandoval MD ED Attending Physician Emergency Department (Please note that portions of this note have been completed with a voice recognition software. Efforts were made to correct any errors, but occasionally words are mis-transcribed.) * ED Procedure Note - Drake Sandoval MD - 09/27/2021 12:44 AM EDT Associated Order(s): EKG 12-lead EKG 12-lead Date/Time: 09/27/2021 12:44 AM Performed by: Drake Sandoval MD Authorized by: Drake Sandoval MD Interpreted by ED attending physician Comparison: not compared with previous ECG Rhythm: sinus rhythm BPM: 94 Conduction: conduction normal ST Segments: ST segments normal T Waves: T waves normal normal NH interval normal QRS interval normal QT interval Clinical impression: non-specific ECG documented in this [id number] Consult note* Marc Juan MD - 09/28/2021 5:46 PM EDT [facility] MEDICINE CONSULT NOTE Patient Name: Mayito Forbes Admit Date: [id number] MR #: [id number] : 1985 Physicians: Soco Paige CNP (Family); No ref. provider found (referring) Ordering Provider: Principal Problem: Gastroenteritis Active Problems: Acute colitis Assessment and Plan: OPIATE ABUSE with precipitated withdrawal and colitis 1. Will induce back onto buprenorphine with the goal to stabilize and eventually taper. 2. Will see if he truly can get back with [facility] or if he needs to get to another place forcounseling. Will get the [facility] team involved. Assessment Detail: The total time spent for this visit was 35 to 40 minutes. Greater than 50% of the time was spent incoordination of care of [facility]. Reason for Consult: Medical management of opioid use disorder. Pain management with concurrent substance use disorder. Management of substance use disorder Linking to outpatient services. Counseling services. History of Present Illness: Mayito Forbes is a 36 y.o. y/o male presenting from home with c/o vomiting Chief Complaint Patient presents with Nausea Jaw Pain Spoke with the patient via Vocera with his nurse Jamil Rock. He is currently in room 2126. I had seen him in June at the withdrawal unit as he was hoping to get detoxified and onto Vivitrol. This did not work out and he has required bilateral carpal tunnel surgery of which only the right has been completed and the left was supposed to have been done today down in [place]. [facility] and [facility] however admittedly had been treating her selling this in order to get fentanyl. He states he last used fentanyl on Tuesday evening. He had 6 mg of Suboxone leftover and took it all Tuesday night and became quite ill and in precipitated withdrawal shortly before presenting to the emergency department where he was found to have colitis. He nowis starting to go through opiate withdrawal and does want to get to [facility] however he is not in aposition to do counseling etc. and does need to have a left carpal tunnel surgery. After discussionwe will initiate back on buprenorphine to minimize his withdrawal and he felt this would be enough for his pain. We will get him in a position for stabilizing and tapering but will need to get back into counseling in order to have the best success. He thinks he can go back to [facility] for counseling but not for that MAT program. We will get the [place] team involved. He was hoping to reschedule his carpal tunnel and get back to working on a [employer] service and be withhis supportive girlfriend and 2 kids. Past Medical History: Diagnosis Date Depression Past Surgical History: Procedure Laterality Date MANDIBLE FRACTURE SURGERY 06/26/2011 History reviewed. No pertinent family history. Social History Socioeconomic History Marital status: Single Tobacco Use Smoking status: Current Every Day Smoker Packs/day: 0.50 Years: 10.00 Pack years: 5.00 Smokeless tobacco: Never Used Vaping Use Vaping Use: Never used Substance and Sexual Activity Alcohol use: Never Drug use: Not Currently Types: Other Comment: HEROIN AOD History: opiates failing buprenorphine Treatment history: most recently [facility] Longest period of sobriety: ? OD history: no. but recent precipitated withdrawal Typical withdrawal symptoms: ? Seizure history: no Psychiatric History: Diagnoses: Colitis with Opiate withdrawal Previous Medications Medication Sig baclofen (LIORESAL) 10 MG tablet Take 20 mg TID X 6 doses then 10 mg TID X 9 doses . cloNIDine HCL (CATAPRES) 0.1 MG tablet Take 1 (one) tablet (0.1 mg total) by mouth 2 (two) times a day for 7 days . famotidine (PEPCID) 20 MG tablet Take 1 (one) tablet (20 mg total) by mouth 2 (two) times a day for10 doses . ondansetron (ZOFRAN) 4 MG tablet Take 1 (one) tablet (4 mg total) by mouth every 8 (eight) hours asneeded for nausea . pantoprazole (PROTONIX) 40 MG tablet Take 1 (one) tablet (40 mg total) by mouth daily . promethazine (PHENERGAN) 25 MG tablet Take 1 (one) tablet (25 mg total) by mouth every 6 (six) hours as needed for nausea . promethazine (PHENERGAN) 25 MG tablet Take 1 (one) tablet (25 mg total) by mouth every 4 (four) hours as needed for nausea . topiramate (TOPAMAX) 25 MG tablet Take 1 (one) tablet (25 mg total) by mouth 2 (two) times a day . [DISCONTINUED] buprenorphine-nalOXone (Suboxone) 8-[address] 2 Film under the tongue Last filled 09/17/21, #14/7 day supply per GAUTAM . No Known Allergies Patient Vitals for the past 24 hrs: BP Temp Temp src Pulse Resp SpO2 09/28/21 1505 (!) 152/87 99.8 F (37.7 C) Oral 70 18 99 % 09/28/21 0800 -- -- -- -- 16 -- 09/28/21 0708 (!) 148/97 99.6 F (37.6 C) Oral 74 14 94 % 09/27/21 2124 (!) 149/79 99.5 F (37.5 C) Oral 81 18 96 % 09/27/212003 -- -- -- -- 18 -- Allergy Information: I have reviewed the patient's allergies. Patient has no known allergies. Home Medications: Outpatient Medications as of 09/28/2021 Medication Sig baclofen (LIORESAL) 10 MG tablet Take 20 mg TID X 6 doses then 10 mg TID X 9 doses . promethazine (PHENERGAN) 25 MG tablet Take 1 (one) tablet (25 mg total) by mouth every 6 (six) hours as needed for nausea . promethazine (PHENERGAN) 25 MG tablet Take 1 (one) tablet (25 mg total) by mouth every 4 (four) hours as needed for nausea . Laboratory & Radiographic Imaging (if done): Recent Results (from the past 24 hour(s)) Comprehensive Metabolic Panel Collection Time: 09/28/21 7:40 AM Result Value Ref Range Sodium 140 135 - 145 mmol/L Potassium 3.6 3.5 - 5.1 mmol/L Chloride 105 98 - 108 mmol/L Bicarbonate 27 21 - 32 mmol/L Anion Gap 12 10 - 20 mmol/L Glucose 113 (H) 65 - 99 mg/dL BUN 12 8 - 25 mg/dL Creatinine 0.84 0.50 - 1.30 mg/dL eGFR 113 >=60 mL/min/1.73 m2 BUN/Creatinine Ratio 14.3 10.0 - 20.0 Total Protein 7.7 6.0 - 8.0 g/dL Albumin 3.9 3.2 - 5.2 g/dL Calcium 9.6 8.4 - 10.2 mg/dL Alkaline Phosphatase 92 40 - 140 U/L AST 22 0 - 45 U/L Total Bilirubin 0.5 0.0 - 1.3 mg/dL ALT 44 14 - 65 U/L Magnesium Collection Time: 09/28/21 7:40 AM Result Value Ref Range Magnesium 1.6 1.6 - 2.4 mg/dL CBC Auto Differential Collection Time: 09/28/21 7:40 AM Result Value Ref Range WBC 11.56 (H) 4.50 - 11.00 K/mcL RBC 5.17 4.50 - 5.90 M/mcL Hemoglobin 15.2 13.5 - 17.5 g/dL Hematocrit 44.4 41.0 - 53.0 % MCV 85.9 80.0 - 100.0 fL MCH 29.4 26.0 - 34.0 pg MCHC 34.2 31.0 - 37.0 g/dL Platelets 385 150 - 400 K/mcL RDW - CV 12.2 11.6 - 14.8 % MPV 8.5 (L) 9.4 - 12.4 fL Neutrophils 82.4 % Lymphocytes 10.6 % Monocytes 6.1 % Eosinophils 0.1 % Basophils 0.3 % IG Percent 0.50 % Neutrophils Abs 9.53 (H) 1.70 - 7.00 K/mcL Lymphocytes Abs 1.22 0.90 - 4.00 K/mcL Monocytes Abs 0.71 0.30 - 0.90 K/mcL Eosinophils Abs 0.01 0.00 - 0.50 K/mcL Basophils Abs 0.03 0.00 - 0.30 K/mcL IG Absolute 0.06 0.00 - 0.30 K/mcL Nucleated RBC 0.0 % Nucleated RBC Abs 0.00 0.00 - 0.00 K/mcL Stool/GI PCR Panel Collection Time: 09/28/21 9:19 AM Specimen: Stool Result Value Ref Range Campylobacter species Not Detected Not Detected Clostridium difficile Toxin A/B Not Detected Not Detected Plesiomonas shigelloides Not Detected Not Detected Salmonella species Not Detected Not Detected Vibrio species Not Detected Not Detected Vibrio chloreae Not Detected Not Detected Yersinia enterocolitica Not Detected Not Detected Enteroaggregative E. coli (EAEC) Not Detected Not Detected Enteropathogenic E. coli (EPEC) Not Detected Not Detected Enterotoxigenic E. coli (ETEC) Not Detected Not Detected Shiga-like toxin-producing E. coli (STEC) 1/2 Not Detected Not Detected Shigella/Enteroinvasive E. coli (EIEC) Not Detected Not Detected Cryptosporidium species Not Detected Not Detected Cyclospora cayetanensis Not Detected Not Detected Entamoeba histolytica Not Detected Not Detected Giardia lamblia Not Detected Not Detected Adenovirus F 40/41 Not Detected Not Detected Astrovirus Not Detected Not Detected Norovirus GI/GII Not Detected Not Detected Rotavirus A Not Detected Not Detected Sapovirus Not Detected Not Detected CT Abdomen Pelvis With IV Contrast Only Final Result 1. Colonic wall thickening with liquid stool in the distal sigmoid colon through the rectum. The colonic wall thickening could be secondary to nondistention versus an infectious or inflammatory colitis with diarrhea. 2. Mild splenomegaly. 3. Normal appendix. 4. Urinary bladder wall thickening. Please correlate with urinalysis for infection. 5. Small right hydrocele. [facility] Workstation ID: [id number] CT Maxillofacial Without Contrast Final Result 1. No acute intracranial abnormality is seen. No hemorrhage or mass effect. 2. No facial fracture or bone displacement is seen. Workstation ID: [id number] CT Head Or Brain Without Contrast Final Result 1. No acute intracranial abnormality is seen. No hemorrhage or mass effect. 2. No facial fracture or bone displacement is seen. Workstation ID: [id number] Note* Quick Note - Steffany Soto RN - 09/27/2021 6:15 AM EDT Pt admitted to inpatient unit. Pulled from ER cot to bed with 3 assist. Pt weak and not interactive. Must repeat questions multiple times to get an answer. Reluctant to move or speak d/t weakness andnausea [id number] Emergency department Note* Mary Carrera RN - 09/27/2021 6:03 AM EDT ASSISTING PRIMARY RN, REPORT CALLED TO JAMES ONEAL RECEIVING NURSE FOR PT'S ADMISSION [id number] Emergency department Note* Mary Carrera RN - 09/27/2021 6:03 AM EDT ASSISTING PRIMARY RN, REPORT CALLED TO JAMES ONEAL RECEIVING NURSE FOR PT'S ADMISSION * Nasrin Hooks RN - 09/27/2021 5:38 AM EDT THIS RN TRIED CALLING PT'S GIRLFRIEND SUSY BACK TO GIVE AN UPDATE, SUSY DID NOT ANSWER, VOICEMAILLEFT ASKING TO CALL BACK WHEN AWAKE FOR AN UPDATE. * Nasrin Hooks RN - 09/27/2021 4:29 AM EDT THIS RN AND BENSON PSA CLEANED PT UP AFTER INCONTINENT BM, NOT ENOUGH STOOL FOR A SAMPLE. INFORMED PTTO LET STAFF KNOW WHEN NEED TO HAVE A BOWEL MOVEMENT FOR STOOL SAMPLE TO BE SENT. * Nasrin Hooks RN - 09/27/2021 3:26 AM EDT FOUND PT IN ROOM WITH EMESIS ON GROUND AND IV TAKEN OUT BY PT. VANESSA LIU NOTIFIED. EVS CALLED TO MOP FLOOR. * Nasrin Hooks RN - 09/27/2021 1:04 AM EDT EVS AT BEDSIDE CLEANING PT'S FLOOR. * Mary Carrera RN - 09/27/2021 12:58 AM EDT PT'S GIRLFRIEND SUSY WOULD LIKE CALL BACK WITH UPDATE WHEN NURSE AVAILABLE- [phone] * Nasrin Hooks RN - 09/26/2021 11:57 PM EDT GAVE PT URINAL AND INFORMED PT AGAIN THAT URINE SAMPLE IS NEEDED. * Vanessa Brewster CNP - 09/26/2021 11:36 PM EDT [facility] EMERGENCY DEPARTMENT MARYELLEN NOTE: NAME: Mayito Forbes CSN: [id number] 36 y.o. PCP: Soco Paige CNP History: Chief Complaint: Nausea and Jaw Pain HPI: The history was obtained from the patient. Mayito is a 36 y.o. male who presents with a chiefcomplaint of Nausea and Jaw Pain. Patient is drowsy, easy to arouse however falls back asleep without stimulation. He reports that he has right lower quadrant pain, nausea, vomiting and diarrhea thatstarted earlier this morning. He reports that he is also felt feverish with chills. He denies any chest pain, shortness of breath, change in urination or bowel habits. Addition he reports that he does have jaw pain. He states that he did take Suboxone earlier today and denies any other drug use or alcohol use. Question reliability of HPI and ROS given patient's current drowsiness. PMHx: Past Medical History: Diagnosis Date Depression PMSx: Past Surgical History: Procedure Laterality Date MANDIBLE FRACTURE SURGERY 06/26/2011 FAM. Hx: History reviewed. No pertinent family history. SOC. Hx: Social History Socioeconomic History Marital status: Single Tobacco Use Smoking status: Current Every Day Smoker Packs/day: 0.50 Years: 10.00 Pack years: 5.00 Smokeless tobacco: Never Used Vaping Use Vaping Use: Never used Substance and Sexual Activity Alcohol use: Never Drug use: Not Currently Types: Other Comment: HEROIN MEDs: Previous Medications Medication Sig baclofen (LIORESAL) 10 MG tablet Take 20 mg TID X 6 doses then 10 mg TID X 9 doses . cloNIDine HCL (CATAPRES) 0.1 MG tablet Take 1 (one) tablet (0.1 mg total) by mouth 2 (two) times a day for 7 days . famotidine (PEPCID) 20 MG tablet Take 1 (one) tablet (20 mg total) by mouth 2 (two) times a day for10 doses . ondansetron (ZOFRAN) 4 MG tablet Take 1 (one) tablet (4 mg total) by mouth every 8 (eight) hours asneeded for nausea . pantoprazole (PROTONIX) 40 MG tablet Take 1 (one) tablet (40 mg total) by mouth daily . promethazine (PHENERGAN) 25 MG tablet Take 1 (one) tablet (25 mg total) by mouth every 6 (six) hours as needed for nausea . promethazine (PHENERGAN) 25 MG tablet Take 1 (one) tablet (25 mg total) by mouth every 4 (four) hours as needed for nausea . topiramate (TOPAMAX) 25 MG tablet Take 1 (one) tablet (25 mg total) by mouth 2 (two) times a day . ALL: No Known Allergies ROS: Review of Systems Constitutional: Positive for chills and fever. HENT: Negative. Eyes: Negative. Respiratory: Negative. Cardiovascular: Negative. Gastrointestinal: Positive for abdominal pain, diarrhea, nausea and vomiting. Endocrine: Negative. Genitourinary: Negative. Musculoskeletal: Negative. Skin: Negative. Allergic/Immunologic: Negative. Neurological: Negative. Hematological: Negative. Positives and pertinent negatives as per HPI. All other systems were reviewed and are negative. Physical Exam: Patient Vitals for the past 24 hrs: BP Temp Temp src Pulse Resp SpO2 09/27/21 0315 -- -- -- 77 (!) 25 95 % 09/27/21 0230 -- -- -- 81 (!) 19 96 % 09/27/21 0115 -- -- -- 84 (!) 19 93 % 09/27/21 0100 (!) 147/101 -- -- 84 (!) 25 93 % 09/27/21 0015 -- -- -- 93 (!) 27 93 % 09/27/21 0000 (!) 151/110 -- -- 86 (!) 26 94 % 09/26/21 2345 -- -- -- 82 18 92 % 09/26/21 2301 (!) 141/98 98.5 F (36.9 C) Axillary 93 18 90 % Physical Exam Vitals and nursing note reviewed. Constitutional: General: He is awake. He is not in acute distress. Appearance: Normal appearance. He is ill-appearing. He is not toxic-appearing. Comments: Drowsy, easily aroused. HENT: Head: Normocephalic and atraumatic. Nose: Nose normal. Mouth/Throat: Mouth: Mucous membranes are moist. Pharynx: Oropharynx is clear. Eyes: General: Lids are normal. No scleral icterus. Cardiovascular: Rate and Rhythm: Normal rate and regular rhythm. Pulses: Radial pulses are 2+ on the right side and 2+ on the left side. Dorsalis pedis pulses are 2+ on the right side and 2+ on the left side. Posterior tibial pulses are 2+ on the right side and 2+ on the left side. Heart sounds: Normal heart sounds, S1 normal and S2 normal. Pulmonary: Effort: Pulmonary effort is normal. No respiratory distress. Breath sounds: Normal breath sounds. No decreased breath sounds, wheezing, rhonchi or rales. Abdominal: General: Abdomen is flat. Bowel sounds are normal. Palpations: Abdomen is soft. Tenderness: There is abdominal tenderness in the right lower quadrant. There is no guarding or rebound. Negative signs include McBurney's sign. Hernia: No hernia is present. Musculoskeletal: Right lower leg: No swelling. No edema. Left lower leg: No swelling. No edema. Skin: General: Skin is warm and dry. Capillary Refill: Capillary refill takes less than 2 seconds. Findings: No rash (No obvious acute rash visualized on exposed skin.). Neurological: General: No focal deficit present. Mental Status: He is oriented to person, place, and time and easily aroused. He is lethargic. GCS: GCS eye subscore is 3. GCS verbal subscore is 5. GCS motor subscore is 6. Motor: Motor function is intact. Psychiatric: Mood and Affect: Mood normal. Laboratory & Radiological Imaging (if done): Labs Reviewed BASIC METABOLIC PANEL - Abnormal; Notable for the following components: Result Value Glucose 133 (*) All other components within normal limits Narrative: The eGFR should be used for monitoring renal function only and not for medication dosing. HEPATIC FUNCTION PANEL - Abnormal; Notable for the following components: Total Protein 8.5 (*) All other components within normal limits POC VENOUS BLOOD GAS PANEL-PULM - RALS - Abnormal; Notable for the following components: pH, Venous 7.52 (*) pCO2, Navjot 29.5 (*) pO2, Navjot 73 (*) Base Excess, Navjot 2.2 (*) HCO3, Navjot 23.9 (*) O2 Sat, Navjot 96.8 (*) All other components within normal limits CBC WITH AUTO DIFFERENTIAL - Abnormal; Notable for the following components: WBC 12.79 (*) MPV 8.8 (*) Neutrophils Abs 10.91 (*) All other components within normal limits COVID-19, MOLECULAR - Normal Narrative: This test was performed under the FDA's Emergency Use Authorization (EUA). Testing was performed using the Eliot Casimiro SARS-CoV-2 RT-PCR & Influenza A/B Nucleic Acid Teston the Casimiro Yanna System. This test has not been approved for use in asymptomatic patients and its performance in this patient population has not been evaluated. Negative results do not rule out the presence of SARS-CoV-2, influenza A, and/or influenza B. Fact sheets for the EUA can be found at the following links: For Healthcare Providers: https://www.fda.gov/media/566007/download For Patients: https://www.fda.gov/media/373470/download ALCOHOL, MEDICAL - Normal LIPASE - Normal CBC AND DIFFERENTIAL Narrative: The following orders were created for panel order CBC w/ Diff. Procedure Abnormality Status --------- ------ CBC Auto Differential[[id number]] Abnormal Final result Please view results for these tests on the individual orders. OBTAIN VENOUS BLOOD GASES AND PERFORM DRUGS OF ABUSE SCREEN, URINE URINALYSIS CT Abdomen Pelvis With IV Contrast Only Final Result 1. Colonic wall thickening with liquid stool in the distal sigmoid colon through the rectum. The colonic wall thickening could be secondary to nondistention versus an infectious or inflammatory colitis with diarrhea. 2. Mild splenomegaly. 3. Normal appendix. 4. Urinary bladder wall thickening. Please correlate with urinalysis for infection. 5. Small right hydrocele. [facility]/s Workstation ID: [id number] CT Maxillofacial Without Contrast Final Result 1. No acute intracranial abnormality is seen. No hemorrhage or mass effect. 2. No facial fracture or bone displacement is seen. Workstation ID: [id number] CT Head Or Brain Without Contrast Final Result 1. No acute intracranial abnormality is seen. No hemorrhage or mass effect. 2. No facial fracture or bone displacement is seen. Workstation ID: [id number] MDM: Andrei is a 36-year-old male who presented to the emergency department with intractable nausea and vomiting along with jaw pain and reports of jaw locked where patient was able to vomit without difficulty at bedside. Patient does have a history of gastroparesis. Patient was given Protonix, Reglanand Zofran in the emergency department with no relief of nausea. He has had 1 episode of stool incontinence with diarrhea in the emergency department. BMP and LFTs unremarkable, CBC with elevated white count of 12.8. UA negative for UTI. Medical alcohol level normal. Urine drug screen pending. CT abdomen pelvis without any acute abdominal process. CT of the head and maxillofacial was obtained and unremarkable. Discussed with hospitalist will admit for observation for intractable nausea and vomiting. Clinical Impression: 1. Intractable vomiting with nausea 2. Abdominal pain, unspecified abdominal location Disposition: ED Disposition ED Disposition Hospitalize Condition -- Comment Phone call required?: No Vanessa Brewster CNP ED Advanced Practice Provider [facility] EMERGENCY DEPARTMENT (Please note that portions of this note have been completed with a voice recognition software. Efforts were made to correct any errors, but occasionally words are mis-transcribed.) Vanessa Brewster CNP 09/27/21 [id number] * Nasrin Hooks RN - 09/26/2021 11:00 PM EDT PT ARRIVED BY EMS. PT C/O N/V AND A STIFF JAW AND PAIN. PER EMS REPORT PT'S GIRLFRIEND FOUND HIM ATHOME WEAK. PT HX OF DRUG USE, DENIES DRUG USE TONIGHT. * Radha Rushing RN - 09/26/2021 10:59 PM EDT Bed: 09 Expected date: Expected time: Means of arrival: Comments: Courtney documented in this [id number] Emergency department Note* Nasrin Hooks RN - 09/27/2021 5:38 AM EDT THIS RN TRIED CALLING PT'S GIRLFRIEND SUSY BACK TO GIVE AN UPDATE, SUSY DID NOT ANSWER, VOICEMAILLEFT ASKING TO CALL BACK WHEN AWAKE FOR AN UPDATE. [id number] Emergency department Note* Nasrin Hooks RN - 09/27/2021 4:29 AM EDT THIS RN AND BENSON BERG CLEANED PT UP AFTER INCONTINENT BM, NOT ENOUGH STOOL FOR A SAMPLE. INFORMED PTTO LET STAFF KNOW WHEN NEED TO HAVE A BOWEL MOVEMENT FOR STOOL SAMPLE TO BE SENT. [id number] History and physical note* Carol Segovia CNP - 09/27/2021 4:17 AM EDT [facility] [place] [facility] Patient Name: Mayito Forbes : 1985 MR #: [id number] Admit Date: 09/26/2021 Physicians: Soco Paige CNP (Family); No ref. provider found (Referring) Mayito Forbes is a 36 y.o. male patient of Soco Paige CNP with history of polysubstance drug abuse, tobacco abuse who presented with nausea, vomiting, diarrhea. Gastroenteritis - CT A/P 09/27/2021: colonic wall thickening with liquid stool. - LR 2 liter boluses - LR maintenance fluids - anti emetics as needed - check GI/stool PCR Polysubstance Drug abuse - urine drug screen +buprenorphine, fentanyl, cannabinoid Admitted From: home Medication Reconciliation: Verified Code Status: Full Code Quality Measures DVT Prophylaxis: lovenox Akhtar Catheter: absent Select if patient admitted to non-critical care location with primary problem that is cardiac in nature The following Vizient risk variables were noted and present on admission: No Vizient risk variables were present on admission Please see assessment and plan for further details. Chief Complaint Nausea, vomiting, diarrhea History of Present Illness Mayito Forbes is a 36 year old male patient who presented to the ED with nausea, vomiting, diarrhea, intermittent fever, chills which started yesterday evening. He denies chest pain, shortness of breath, lightheadedness, abdominal pain, dysuria. Routine labs were unremarkable. CT A/P showed colonic wall thickening. He was referred for admission for further management. Past Medical History Past Medical History: Diagnosis Date Depression Past Surgical History Past Surgical History: Procedure Laterality Date MANDIBLE FRACTURE SURGERY 06/26/2011 Family History History reviewed. No pertinent family history. Social History Social History Tobacco Use Smoking Status Current Every Day Smoker Packs/day: 0.50 Years: 10.00 Pack years: 5.00 Smokeless Tobacco Never Used Social History Substance and Sexual Activity Alcohol Use Never Social History Substance and Sexual Activity Drug Use Not Currently Types: Other Comment: HEROIN Allergy Information I have reviewed the patient's allergies. Patient has no known allergies. Home Medications Home medications were reviewed. Review Of Systems All systems have been reviewed and are negative except as noted in HPI or below Physical Examination BP (!) 150/101 (BP Location: Left arm, Patient Position: Lying) Pulse 75 Temp 98.5 F (36.9 C) (Axillary) Resp (!) 20 SpO2 94% General Appearance: alert; well appearing; in no acute distress HEENT: Head- normocephalic; Eyes- EOMI, sclera anicteric; Ears- hearing intact; Nose- no nasal discharge; Throat- mucous membranes moist Cardiovascular: regular rate and rhythm; normal S1, S2; no murmurs, rubs, clicks or gallops; no peripheral edema Respiratory: lungs clear to auscultation; without wheezes, rales or rhonchi; on room air Abdomen: soft, non-tender, non-distended; positive bowel sounds Neurological: oriented x 3; normal speech; no focal findings or movement disorder noted Musculoskeletal: no significant deformity or tenderness to palpation Skin: normal coloration; no obvious rashes, lesions or skin breakdown Psych: normal mood and affect Laboratory and Additional Data Reviewed Laboratory 09/27/21 4:26 AM Radiology 09/27/21 4:26 AM Medications 09/27/21 4:26 AM [id number] History and physical note* Carol Segovia CNP - 09/27/2021 4:17 AM EDT [facility] [place] [facility] Patient Name: Mayito Forbes : 1985 MR #: [id number] Admit Date: 09/26/2021 Physicians: Soco Paige CNP (Family); No ref. provider found (Referring) Mayito Forbes is a 36 y.o. male patient of Soco Paige CNP with history of polysubstance drug abuse, tobacco abuse who presented with nausea, vomiting, diarrhea. Gastroenteritis - CT A/P 09/27/2021: colonic wall thickening with liquid stool. - LR 2 liter boluses - LR maintenance fluids - anti emetics as needed - check GI/stool PCR Polysubstance Drug abuse - urine drug screen +buprenorphine, fentanyl, cannabinoid Admitted From: home Medication Reconciliation: Verified Code Status: Full Code Quality Measures DVT Prophylaxis: lovenox Akhtar Catheter: absent Select if patient admitted to non-critical care location with primary problem that is cardiac in nature The following Vizient risk variables were noted and present on admission: No Vizient risk variables were present on admission Please see assessment and plan for further details. Chief Complaint Nausea, vomiting, diarrhea History of Present Illness Mayito Forbes is a 36 year old male patient who presented to the ED with nausea, vomiting, diarrhea, intermittent fever, chills which started yesterday evening. He denies chest pain, shortness of breath, lightheadedness, abdominal pain, dysuria. Routine labs were unremarkable. CT A/P showed colonic wall thickening. He was referred for admission for further management. Past Medical History Past Medical History: Diagnosis Date Depression Past Surgical History Past Surgical History: Procedure Laterality Date MANDIBLE FRACTURE SURGERY 06/26/2011 Family History History reviewed. No pertinent family history. Social History Social History Tobacco Use Smoking Status Current Every Day Smoker Packs/day: 0.50 Years: 10.00 Pack years: 5.00 Smokeless Tobacco Never Used Social History Substance and Sexual Activity Alcohol Use Never Social History Substance and Sexual Activity Drug Use Not Currently Types: Other Comment: HEROIN Allergy Information I have reviewed the patient's allergies. Patient has no known allergies. Home Medications Home medications were reviewed. Review Of Systems All systems have been reviewed and are negative except as noted in HPI or below Physical Examination BP (!) 150/101 (BP Location: Left arm, Patient Position: Lying) Pulse 75 Temp 98.5 F (36.9 C) (Axillary) Resp (!) 20 SpO2 94% General Appearance: alert; well appearing; in no acute distress HEENT: Head- normocephalic; Eyes- EOMI, sclera anicteric; Ears- hearing intact; Nose- no nasal discharge; Throat- mucous membranes moist Cardiovascular: regular rate and rhythm; normal S1, S2; no murmurs, rubs, clicks or gallops; no peripheral edema Respiratory: lungs clear to auscultation; without wheezes, rales or rhonchi; on room air Abdomen: soft, non-tender, non-distended; positive bowel sounds Neurological: oriented x 3; normal speech; no focal findings or movement disorder noted Musculoskeletal: no significant deformity or tenderness to palpation Skin: normal coloration; no obvious rashes, lesions or skin breakdown Psych: normal mood and affect Laboratory and Additional Data Reviewed Laboratory 09/27/21 4:26 AM Radiology 09/27/21 4:26 AM Medications 09/27/21 4:26 AM documented in this [id number] Note* ED Attestation Note - Drake Sandoval MD - 09/27/2021 3:34 AM EDT ED Attestation: I have reviewed the Advanced Practice Provider's (MARYELLEN's) documention. In addition, I have personally introduced myself to the patient, and have taken his history and performed an examination. I agree with the physical findings, management, clinical impression and disposition. In brief, he is a 36 y.o. male who presents with a chief complaint of Nausea and Jaw Pain. After my evaluation, I noticed patient will be admitted. Patient has history of gastroparesis. Patient has an intractable nausea and vomiting. On exam has no peritoneal findings. Patient given medications here without relief. Patient states his jaw is sore but he is able to vomit at bedside withoutissue. Patient also has incontinence of stool with diarrhea at bedside. Patient has stable blood work. CAT scans out issue. Patient will be admitted due to his intractable nausea and vomiting for IV fluids, symptom control and further assessment. Drake Sandoval MD ED Attending Physician Emergency Department (Please note that portions of this note have been completed with a voice recognition software. Efforts were made to correct any errors, but occasionally words are mis-transcribed.) [facility] Work Phone: [phone] 757-785905-01-2022 Emergency department Note* Nasrin Hooks RN - 09/27/2021 3:26 AM EDT FOUND PT IN ROOM WITH EMESIS ON GROUND AND IV TAKEN OUT BY PT. VANESSA LIU NOTIFIED. EVS CALLED TO MOP FLOOR. [id number] Emergency department Note* Nasrin Hooks RN - 09/27/2021 1:04 AM EDT EVS AT BEDSIDE CLEANING PT'S FLOOR. [id number] Emergency department Note* Mary Carrera RN - 09/27/2021 12:58 AM EDT PT'S GIRLFRIEND SUSY WOULD LIKE CALL BACK WITH UPDATE WHEN NURSE AVAILABLE- [phone] [id number] Note* ED Procedure Note - Drake Sandoval MD - 09/27/2021 12:44 AM EDTAssociated Order(s): EKG 12-lead EKG 12-lead Date/Time: 09/27/2021 12:44 AM Performed by: Drake Sandoval MD Authorized by: Drake Sandoval MD Interpreted by ED attending physician Comparison: not compared with previous ECG Rhythm: sinus rhythm BPM: 94 Conduction: conduction normal ST Segments: ST segments normal T Waves: T waves normal normal NH interval normal QRS interval normal QT interval Clinical impression: non-specific ECG [id number] Emergency department Note* Nasrin Hooks RN - 09/26/2021 11:57 PM EDT GAVE PT URINAL AND INFORMED PT AGAIN THAT URINE SAMPLE IS NEEDED. [id number] Physician Emergency department Note* Vanessa Brewster CNP - 09/26/2021 11:36 PM EDT [facility] EMERGENCY DEPARTMENT MARYELLEN NOTE: NAME: Mayito Forbes CSN: [id number] 36 y.o. PCP: Soco Paige CNP History: Chief Complaint: Nausea and Jaw Pain HPI: The history was obtained from the patient. Mayito is a 36 y.o. male who presents with a chiefcomplaint of Nausea and Jaw Pain. Patient is drowsy, easy to arouse however falls back asleep without stimulation. He reports that he has right lower quadrant pain, nausea, vomiting and diarrhea thatstarted earlier this morning. He reports that he is also felt feverish with chills. He denies any chest pain, shortness of breath, change in urination or bowel habits. Addition he reports that he does have jaw pain. He states that he did take Suboxone earlier today and denies any other drug use or alcohol use. Question reliability of HPI and ROS given patient's current drowsiness. PMHx: Past Medical History: Diagnosis Date Depression PMSx: Past Surgical History: Procedure Laterality Date MANDIBLE FRACTURE SURGERY 06/26/2011 FAM. Hx: History reviewed. No pertinent family history. SOC. Hx: Social History Socioeconomic History Marital status: Single Tobacco Use Smoking status: Current Every Day Smoker Packs/day: 0.50 Years: 10.00 Pack years: 5.00 Smokeless tobacco: Never Used Vaping Use Vaping Use: Never used Substance and Sexual Activity Alcohol use: Never Drug use: Not Currently Types: Other Comment: HEROIN MEDs: Previous Medications Medication Sig baclofen (LIORESAL) 10 MG tablet Take 20 mg TID X 6 doses then 10 mg TID X 9 doses . cloNIDine HCL (CATAPRES) 0.1 MG tablet Take 1 (one) tablet (0.1 mg total) by mouth 2 (two) times a day for 7 days . famotidine (PEPCID) 20 MG tablet Take 1 (one) tablet (20 mg total) by mouth 2 (two) times a day for10 doses . ondansetron (ZOFRAN) 4 MG tablet Take 1 (one) tablet (4 mg total) by mouth every 8 (eight) hours asneeded for nausea . pantoprazole (PROTONIX) 40 MG tablet Take 1 (one) tablet (40 mg total) by mouth daily . promethazine (PHENERGAN) 25 MG tablet Take 1 (one) tablet (25 mg total) by mouth every 6 (six) hours as needed for nausea . promethazine (PHENERGAN) 25 MG tablet Take 1 (one) tablet (25 mg total) by mouth every 4 (four) hours as needed for nausea . topiramate (TOPAMAX) 25 MG tablet Take 1 (one) tablet (25 mg total) by mouth 2 (two) times a day . ALL: No Known Allergies ROS: Review of Systems Constitutional: Positive for chills and fever. HENT: Negative. Eyes: Negative. Respiratory: Negative. Cardiovascular: Negative. Gastrointestinal: Positive for abdominal pain, diarrhea, nausea and vomiting. Endocrine: Negative. Genitourinary: Negative. Musculoskeletal: Negative. Skin: Negative. Allergic/Immunologic: Negative. Neurological: Negative. Hematological: Negative. Positives and pertinent negatives as per HPI. All other systems were reviewed and are negative. Physical Exam: Patient Vitals for the past 24 hrs: BP Temp Temp src Pulse Resp SpO2 09/27/21 0315 -- -- -- 77 (!) 25 95 % 09/27/21 0230 -- -- -- 81 (!) 19 96 % 09/27/21 0115 -- -- -- 84 (!) 19 93 % 09/27/21 0100 (!) 147/101 -- -- 84 (!) 25 93 % 09/27/21 0015 -- -- -- 93 (!) 27 93 % 09/27/21 0000 (!) 151/110 -- -- 86 (!) 26 94 % 09/26/21 2345 -- -- -- 82 18 92 % 09/26/21 2301 (!) 141/98 98.5 F (36.9 C) Axillary 93 18 90 % Physical Exam Vitals and nursing note reviewed. Constitutional: General: He is awake. He is not in acute distress. Appearance: Normal appearance. He is ill-appearing. He is not toxic-appearing. Comments: Drowsy, easily aroused. HENT: Head: Normocephalic and atraumatic. Nose: Nose normal. Mouth/Throat: Mouth: Mucous membranes are moist. Pharynx: Oropharynx is clear. Eyes: General: Lids are normal. No scleral icterus. Cardiovascular: Rate and Rhythm: Normal rate and regular rhythm. Pulses: Radial pulses are 2+ on the right side and 2+ on the left side. Dorsalis pedis pulses are 2+ on the right side and 2+ on the left side. Posterior tibial pulses are 2+ on the right side and 2+ on the left side. Heart sounds: Normal heart sounds, S1 normal and S2 normal. Pulmonary: Effort: Pulmonary effort is normal. No respiratory distress. Breath sounds: Normal breath sounds. No decreased breath sounds, wheezing, rhonchi or rales. Abdominal: General: Abdomen is flat. Bowel sounds are normal. Palpations: Abdomen is soft. Tenderness: There is abdominal tenderness in the right lower quadrant. There is no guarding or rebound. Negative signs include McBurney's sign. Hernia: No hernia is present. Musculoskeletal: Right lower leg: No swelling. No edema. Left lower leg: No swelling. No edema. Skin: General: Skin is warm and dry. Capillary Refill: Capillary refill takes less than 2 seconds. Findings: No rash (No obvious acute rash visualized on exposed skin.). Neurological: General: No focal deficit present. Mental Status: He is oriented to person, place, and time and easily aroused. He is lethargic. GCS: GCS eye subscore is 3. GCS verbal subscore is 5. GCS motor subscore is 6. Motor: Motor function is intact. Psychiatric: Mood and Affect: Mood normal. Laboratory & Radiological Imaging (if done): Labs Reviewed BASIC METABOLIC PANEL - Abnormal; Notable for the following components: Result Value Glucose 133 (*) All other components within normal limits Narrative: The eGFR should be used for monitoring renal function only and not for medication dosing. HEPATIC FUNCTION PANEL - Abnormal; Notable for the following components: Total Protein 8.5 (*) All other components within normal limits POC VENOUS BLOOD GAS PANEL-PULM - RALS - Abnormal; Notable for the following components: pH, Venous 7.52 (*) pCO2, Navjot 29.5 (*) pO2, Navjot 73 (*) Base Excess, Navjot 2.2 (*) HCO3, Navjot 23.9 (*) O2 Sat, Navjot 96.8 (*) All other components within normal limits CBC WITH AUTO DIFFERENTIAL - Abnormal; Notable for the following components: WBC 12.79 (*) MPV 8.8 (*) Neutrophils Abs 10.91 (*) All other components within normal limits COVID-19, MOLECULAR - Normal Narrative: This test was performed under the FDA's Emergency Use Authorization (EUA). Testing was performed using the Eliot Casimiro SARS-CoV-2 RT-PCR & Influenza A/B Nucleic Acid Teston the Casimiro Yanna System. This test has not been approved for use in asymptomatic patients and its performance in this patient population has not been evaluated. Negative results do not rule out the presence of SARS-CoV-2, influenza A, and/or influenza B. Fact sheets for the EUA can be found at the following links: For Healthcare Providers: https://www.fda.gov/media/181244/download For Patients: https://www.fda.gov/media/738029/download ALCOHOL, MEDICAL - Normal LIPASE - Normal CBC AND DIFFERENTIAL Narrative: The following orders were created for panel order CBC w/ Diff. Procedure Abnormality Status --------- ------ CBC Auto Differential[[id number]] Abnormal Final result Please view results for these tests on the individual orders. OBTAIN VENOUS BLOOD GASES AND PERFORM DRUGS OF ABUSE SCREEN, URINE URINALYSIS CT Abdomen Pelvis With IV Contrast Only Final Result 1. Colonic wall thickening with liquid stool in the distal sigmoid colon through the rectum. The colonic wall thickening could be secondary to nondistention versus an infectious or inflammatory colitis with diarrhea. 2. Mild splenomegaly. 3. Normal appendix. 4. Urinary bladder wall thickening. Please correlate with urinalysis for infection. 5. Small right hydrocele. [facility] Workstation ID: [id number] CT Maxillofacial Without Contrast Final Result 1. No acute intracranial abnormality is seen. No hemorrhage or mass effect. 2. No facial fracture or bone displacement is seen. Workstation ID: [id number] CT Head Or Brain Without Contrast Final Result 1. No acute intracranial abnormality is seen. No hemorrhage or mass effect. 2. No facial fracture or bone displacement is seen. Workstation ID: [id number] MDM: Andrei is a 36-year-old male who presented to the emergency department with intractable nausea and vomiting along with jaw pain and reports of jaw locked where patient was able to vomit without difficulty at bedside. Patient does have a history of gastroparesis. Patient was given Protonix, Reglanand Zofran in the emergency department with no relief of nausea. He has had 1 episode of stool incontinence with diarrhea in the emergency department. BMP and LFTs unremarkable, CBC with elevated white count of 12.8. UA negative for UTI. Medical alcohol level normal. Urine drug screen pending. CT abdomen pelvis without any acute abdominal process. CT of the head and maxillofacial was obtained and unremarkable. Discussed with hospitalist will admit for observation for intractable nausea and vomiting. Clinical Impression: 1. Intractable vomiting with nausea 2. Abdominal pain, unspecified abdominal location Disposition: ED Disposition ED Disposition Hospitalize Condition -- Comment Phone call required?: No Vanessa Brewster CNP ED Advanced Practice Provider [facility] EMERGENCY DEPARTMENT (Please note that portions of this note have been completed with a voice recognition software. Efforts were made to correct any errors, but occasionally words are mis-transcribed.) Vanessa Brewster CNP 09/27/21 0348 [facility] Work Phone: [phone] [phone] Emergency department Triage note* Nasrin Hooks RN - 09/26/2021 11:00 PM EDT PT ARRIVED BY EMS. PT C/O N/V AND A STIFF JAW AND PAIN. PER EMS REPORT PT'S GIRLFRIEND FOUND HIM ATHOME WEAK. PT HX OF DRUG USE, DENIES DRUG USE TONIGHT. [id number] Emergency department Note* Radha Rushing RN - 09/26/2021 10:59 PM EDT Bed: 09 Expected date: Expected time: Means of arrival: Comments: Courtney [id number] History of Present illness Narrative* Jaleel Cm PA-C - 09/02/2021 10:20 AM EDT Chief Complaint Patient presents with Right Wrist - Post Op Visit S/p Right carpal tunnel release. DOS:07/22/21. POD 14 Dr. Ca. Surgeon: Dr. Susan Ca Procedure: Right open carpal tunnel release Procedure date: 08/19/21 HPI: Mayito Forbes is a 36 y.o. year old male who presents today for 14 day postop follow-up visit, s/p the above procedure(s) by Dr. Ca. Overall, the patient is doing well. He reports 80% improvement in numbness and tingling since the surgery. The patient denies any fevers, chills, or complications with their wound. Pain is controlled with OTC medications PRN. He reports being compliant with post-operative elevation and finger ROM. Patient is here today for suture removal. ROS: General: Negative for fevers, chills, night sweats Cardiovascular: Negative for chest pain or dyspnea on exertion GI: Negative nausea or vomiting Physical Exam: Right upper extremity exam: General: Well-appearing male with no acute distress. Skin: Incision is clean, dry and intact with sutures. No erythema, cellulitis, warmth, or active drainage from surgical site. No ecchymosis. No edema. Wound well approximated. Vascular: Fingers are warm and well perfused with good capillary refill. Musculoskeletal: No tenderness to palpation of the surgical region. Patient is able to actively pronate the forearm. AROM of the wrist with flexion to 65' and extension to 65'. Patient is able to actively range all fingers in flexion and extension. Full composite fist. Thumb opposition to base of RF. 5/5 strength with finger back tender cloth printing. 5/5 strength with resisted palmar abduction. Neurovascular: Neurovascular intact to light touch distally in the median, radial, and ulnar nerve distribution. Pulmonary: Respirations unlabored, no SOB Psych: Alert and oriented x3 Radiographs: None today EMG/NCS: Bilateral moderate CTS on EMG/NCS Assessment: 1. 14 days s/p right open carpal tunnel release with Dr. Ca. Doing well with postoperative course. 2. Left carpal tunnel, moderate on EMG. Plan: - Sutures removed in the office today without complication. - Patient was provided with instructions on local wound care with soap & water. Educated the patient on appropriate postoperative care at this stage of healing (see attached instructions). - We discussed that symptoms can take some time to resolve completely, even up to a year. I am hopeful that symptoms will continue to improve, but discussed that permanent symptoms can occur even after surgical release. - I do not believe that he requires any formal OT at this time, but we would be happy to provide this at a later time if he is unable to return to baseline function on their own. - Left side: He would like to schedule 4 weeks post last surgery. Consent and case request placed today. - Follow up: Follow up on an as needed basis. We would be happy to see the patient back if there are any other concerns or orthopedic needs. - Medication refill today: None - Work restrictions: Continue off work through next surgery and 2 weeks post op. The procedure was explained the patient during the visit today. The operative details and expected post-operative course were outlined. We also explained that potential complications included, infection, bleeding, pain, incomplete relief of symptoms, injury to surrounding structures, possibility for additional surgery. The postoperative recovery time and the possible need for postoperative splinting/therapy was discussed. The patient expressed a understanding of the procedure and possible complications and would like to proceed. Surgical consent signed. documented in this encounterOSA[facility]-05-[facility] Instructions* Patient Instructions* Jaleel Cm PA-C - 09/01/2021 10:37 PM EDT [facility] Postoperative Care Appointment with Physician Landscape Gardener, Jaleel Cm INCISION: Your sutures were removed today. At this point in your recovery, you may wash over your incision with soap and water. Pat the incision dry. No ointments, lotions, etc. until the incision ishealed which is usually a couple of days after the sutures are removed. ACTIVITY: You can continue to keep your hand elevated above your heart if swelling persists and youare encouraged to work range of motion of your fingers and wrist. You do not have any true restrictions at this point, but slowly return to your regular activities. Allow pain to be your guide in returning to your activities, if it hurts, back off and try again in a few days. If it doesn't move forward. Everyone is different in their return to activities. SCAR MASSAGE: Begin around 5 days after your sutures are removed. This is when you take your other hand and spend a few minutes a couple times a day for a couple of weeks massaging your incision. This will help lighten your incision, decrease scar tissue, smooth it out and desensitize the area. THERAPY: If you have been working on range of motion, stiffness, swelling and sensitivity and your symptoms have not improved then you may benefit from attending formal Occupational Therapy. We have this available at the [facility] or we can give you a prescription to take closer to home. Please let us know if you are interested in this and we can help guide you. PAIN: Continue with pain medication as needed. If you do not need it, do not take it. If have questions, please call the office [phone] documented in this encounterU [facility]03[facility] Note* Op Note - Susan Ca MD - 08/19/2021 1:44 PM EDT Preoperative Diagnosis: Right carpal tunnel syndrome Postoperative Diagnosis: Right carpal tunnel syndrome Procedure: Right open carpal tunnel release Attending: Susan Ca MD Landscape Gardener: Lexx Schaefer MD Anesthesia: MAC/Local EBL: 5cc Complications: none Specimens: none Drains: none Indications: 36 yo M with bilateral CTS here today for R open release. We explained to the patient the risks and benefits of surgery including bleeding, infection, wound healing problems, injury to surrounding structures such as vessels, tendons, nerves and bone, persistent numbness, possible revision surgery, and problems with anesthesia. Informed consent was obtained. Procedure: After proper consent was obtained the operative extremity was marked in the preoperative holding area and the patient was brought to the operating room and laid supine on the operating room table. A surgical timeout was performed and anesthesia was induced. The patient's surgical site was then injected with 9cc of 1% lidocaine with epinephrine and 1cc of 8.4% sodium bicarbonate. The patient was then prepped and draped in sterile fashion. The procedure began with the exsanguination of the upper extremity and inflation of the tourniquet to 250mmHg. An incision was designed overlying the carpal tunnel in the palm approximately 1.5cm in length. Incision was made with a #15 blade scalpel and dissection was carried down sharply through skin, subcutaneous tissue, superficial palmar fascia, and palmaris brevis until the transverse carpalligament was encountered. The patient had exceptionally thick transverse carpal ligament that extended more distal than is normal. This was released to its full extent distally and then attention turned proximally where the release was completed including the antebrachial fascia in the distal forearm. The release was then confirmed and the median nerve visualized and found to be intact. The woundwas irrigated, the tourniquet let down and hemostasis obtained. The wound was closed with 4-0 Prolene horizontal mattress sutures and dressed with xeroform, 4x4s, a kerlix gauze wrap, and an POLA wrap. All sponge and instrument counts were correct at the end of the procedure. The patient tolerated the procedure well and was taken to PACU in stable condition. Postoperative Plan: The patient will leave their dressing in place for 48 hours, then remove it andshower. Tylenol and Ibuprofen should be used for pain control. No lifting heavier than 2lbs with the affected hand. Follow up in 10-14 days as scheduled for suture removal and recheck. Susan Ca MD Academic Support Director - Plastic and Hand Surgery [facility] Work Phone: [phone] Note* Brief Op Note - Susan Ca MD - 08/19/2021 1:44 PM EDT Mayito Forbes ([id number]) PRE OPERATIVE DIAGNOSIS Bilateral carpal tunnel syndrome [G56.03] POST OPERATIVE DIAGNOSIS Post-Op Diagnosis Codes: * Bilateral carpal tunnel syndrome [G56.03] PROCEDURE PERFORMED Procedure(s) (LRB): DECOMPRESSION TRANSPOSITION MEDIAN NERVE (Right) PRIMARY CLOSURE Yes INTRAOPERATIVE FINDINGS No significant abnormalities SURGEON Surgeon(s) and Role: * Susan Ca MD - Primary ANESTHESIOLOGIST Anesthesiologist: Karo Jackson MD CLAMP TRUCK DRIVER: Mary Vaughan APRN-CLAMP TRUCK DRIVER; DAVID Houston SURGICAL STAFF Furnace Mechanic: Natasha Dempsey RN Physician Landscape Gardener: Quique Guo PA-C Scrub Person: Steffany Bernal Resident Assisting: Lexx Schaefer MD COMPLICATIONS None ESTIMATED BLOOD LOSS Minimal SPECIMENS No specimen sent * No specimens in log * Susan Ca MD August 19, 2021 1:44 PM [facility]03-23-2022 Miscellaneous Notes* Op Note - Susan Ca MD - 08/19/2021 1:44 PM EDT Preoperative Diagnosis: Right carpal tunnel syndrome Postoperative Diagnosis: Right carpal tunnel syndrome Procedure: Right open carpal tunnel release Attending: Susan Ca MD Landscape Gardener: Lexx Schaefer MD Anesthesia: MAC/Local EBL: 5cc Complications: none Specimens: none Drains: none Indications: 36 yo M with bilateral CTS here today for R open release. We explained to the patient the risks and benefits of surgery including bleeding, infection, wound healing problems, injury to surrounding structures such as vessels, tendons, nerves and bone, persistent numbness, possible revision surgery, and problems with anesthesia. Informed consent was obtained. Procedure: After proper consent was obtained the operative extremity was marked in the preoperative holding area and the patient was brought to the operating room and laid supine on the operating room table. A surgical timeout was performed and anesthesia was induced. The patient's surgical site was then injected with 9cc of 1% lidocaine with epinephrine and 1cc of 8.4% sodium bicarbonate. The patient was then prepped and draped in sterile fashion. The procedure began with the exsanguination of the upper extremity and inflation of the tourniquet to 250mmHg. An incision was designed overlying the carpal tunnel in the palm approximately 1.5cm in length. Incision was made with a #15 blade scalpel and dissection was carried down sharply through skin, subcutaneous tissue, superficial palmar fascia, and palmaris brevis until the transverse carpalligament was encountered. The patient had exceptionally thick transverse carpal ligament that extended more distal than is normal. This was released to its full extent distally and then attention turned proximally where the release was completed including the antebrachial fascia in the distal forearm. The release was then confirmed and the median nerve visualized and found to be intact. The woundwas irrigated, the tourniquet let down and hemostasis obtained. The wound was closed with 4-0 Prolene horizontal mattress sutures and dressed with xeroform, 4x4s, a kerlix gauze wrap, and an POLA wrap. All sponge and instrument counts were correct at the end of the procedure. The patient tolerated the procedure well and was taken to PACU in stable condition. Postoperative Plan: The patient will leave their dressing in place for 48 hours, then remove it andshower. Tylenol and Ibuprofen should be used for pain control. No lifting heavier than 2lbs with the affected hand. Follow up in 10-14 days as scheduled for suture removal and recheck. Susan Ca MD Academic Support Director - Plastic and Hand Surgery * Brief Op Note - Susan Ca MD - 08/19/2021 1:44 PM EDT Mayito Forbes ([id number]) PRE OPERATIVE DIAGNOSIS Bilateral carpal tunnel syndrome [G56.03] POST OPERATIVE DIAGNOSIS Post-Op Diagnosis Codes: * Bilateral carpal tunnel syndrome [G56.03] PROCEDURE PERFORMED Procedure(s) (LRB): DECOMPRESSION TRANSPOSITION MEDIAN NERVE (Right) PRIMARY CLOSURE Yes INTRAOPERATIVE FINDINGS No significant abnormalities SURGEON Surgeon(s) and Role: * Susan Ca MD - Primary ANESTHESIOLOGIST Anesthesiologist: Karo Jackson MD CLAMP TRUCK DRIVER: Mary Vaughan APRN-CLAMP TRUCK DRIVER; Rosa Elena Aceves APRN-ZULE[employer] SURGICAL STAFF Furnace Mechanic: Natasha Dempsey RN Physician Landscape Gardener: Quique Guo PA-C Scrub Person: Steffany Bernal Resident Assisting: Lexx Schaefer MD COMPLICATIONS None ESTIMATED BLOOD LOSS Minimal SPECIMENS No specimen sent * No specimens in log * Susan Ca MD August 19, 2021 1:44 PM * Nursing Notes - Dick Shabazz RN - 08/19/2021 9:19 AM EDT 0800: upon pre-op assessment and interview, pt admits to drinking coffee with cream at 0600. Anesthesia notified. 0815: Dr. Olea at bedside to assess pt. Per anesthesia pts sx delayed until 1200 d/t NPO violation. 0830: pt escorted back to patient/family lobby to wait with SO, per pt request. documented in this encounterOSU [facility]03-[facility] Nurse Surgical operation note* Natasha Dempsey RN - 08/19/2021 1:28 PM EDT Pt transported to PACU via cart. Report given to KIMMY Jennings [facility]03-23-2022 Nurse Note* Natasha Dempsey RN - 08/19/2021 1:28 PM EDT Pt transported to PACU via cart. Report given to KIMMY Jennings documented in this encounterOSU [facility]03-23-2022 Note* Nursing Notes - Dick Shabazz RN - 08/19/2021 9:19 AM EDT 0800: upon pre-op assessment and interview, pt admits to drinking coffee with cream at 0600. Anesthesia notified. 0815: Dr. Olea at bedside to assess pt. Per anesthesia pts sx delayed until 1200 d/t NPO violation. 0830: pt escorted back to patient/family lobby to wait with SO, per pt request. [facility]03-22-2022 Hospital Discharge instructions* Discharge Instructions* Quique Guo PA-C - 08/18/2021 5:43 PM EDT [facility] Home Care after Hand or Upper Extremity Surgery 1. PAIN CONTROL Prescription Medications: Tramadol: this is a narcotic pain medication. You may experience nausea, constipation, and/or tiredness from this medication. You should use this for breakthrough pain. Do not take with naltrexone. Over the Counter Medications: If you are medically able to do so, take 1 Aleve 220 mg in the morning and 1 in the evening for up to 10 days after surgery. You can stop if your post-operative pain is controlled sooner. If you are medically able to do so, take Tylenol Arthritis (or any brand of acetaminophen 8-hour) every 8 hours for up to 10 days after surgery. Take no more than 4000 mg in a 24-hour period. Tylenol Arthritis plus Aleve work together as a team to make each other stronger. The maximum amount of Tylenol is 4000 mg from all sources in a 24-hour period. Remember; don t substitute any other medication for the Tylenol. It must be Tylenol (also called acetaminophen) for it to work as a team. Remember also that the Tylenol Arthritis is taken every 8 hours, or three times a day, and Aleve is only twice a day. Over the Counter Medications to take as needed: Colace: You can take this if you are taking a narcotic pain medication to prevent constipation. Hold for loose stools or diarrhea. Take 100 mg 1-2 times a day. Pepcid: You can take this while taking Naproxen/Aleve or other NSAIDs such as ibuprofen/Motrin/Advil to prevent stomach upset or Acid-reflux symptoms. Take 1 tablet 1-2 times a day. Elevation: Keep your arm elevated above the level of your heart as much as possible to prevent swelling and help with pain. Ice: You can apply an ice pack for 20 minutes at a time outside of your splint or dressing (for instance on the forearm or in your arm pit.) Put a protective layer against your skin. Other medications: You may restart your own medications that you have at home as prescribed by yourrespective physicians. 2. DRESSINGS AND WOUND CARE Remove the dressings or splint in 2 days. You may cover your incision(s) with a light dressing, band-aid or leave it uncovered. Begin washing the incision(s) gently with soap and water after the dressing is removed. Pat dry with a soft towel. Do not soak your incision(s) in water including in dish water, bath tub or hot tub. Do not use creams, salves or balms on your incision(s). 3. DIET AND ACTIVITY Drink plenty of fluids and eat light meals today. Start your regular diet when you feel up to it. Work on moving your fingers if they are available, making a fist and opening the fist. Limit your activity. No heavy lifting, pushing or pulling. 4. NERVE BLOCK You may have received a nerve block as part of your anesthesia. If so, your arm will be completely numb from the shoulder down. If you had a block, use the sling it until the block wears off, then for comfort. The length of time the block will work is different for every patient. The block often wears off suddenly and you may experience rebound pain. If this happens, do not panic. Sometimes the pain is worse when the block first wears off, then returns to a more tolerable level. You should take pain medication before your block wears off. If you wait until the feeling returns to your arm you may find it difficult to get back ahead of the pain. 5. WHAT TO EXPECT AFTER SURGERY Pain controlled with medication, ice and elevation Minimal drainage from incision Swelling 6. WHEN TO CALL YOUR DOCTOR If you cannot get your pain under control If you have a temperature greater than 101 degrees Fahrenheit For increased amounts of redness, swelling or drainage from the incision For bleeding through your dressing Other Instructions: Please be sure to eat the day of your post op appointment before you come. This can help prevent you from feeling sick or lightheaded. Do not drive, operate equipment, sign important papers or make important decisions for 24 hours after anesthesia. Smoking and all nicotine products can impair bone healing and lead to wound infections. If you smoke or use tobacco, please consider quitting or cutting back as much as possible. You should not drive if you are in a splint or sling. Contacts: If you have any questions or problems, contact your doctor s office during office hours. [facility] [address], [address] [place] [address] Phone: [phone]). If after hours, call or the hospital rip saw operator at and ask for the HandResident front clerk or go to your local or [facility] Emergency room. documented in this encounterLouis [facility]02-[facility]-2022 Note* Addendum Note - Marc Juan MD - 07/22/2021 6:01 PM ESTAddended by: MARC JUAN on: 07/22/2021 06:01 PM Modules accepted: Orders [id number] Miscellaneous Notes* Addendum Note - Marc Juan MD - 07/22/2021 6:01 PM ESTAddended by: MARC JUAN on: 07/22/2021 06:01 PM Modules accepted: Orders documented in this encounterOhioHealthDischarge summary Author Chemo Romerogett [facility] Note Date/Time September 01, 2024 1:38 pm [facility] Medical Records Department [address] [place] [id number] Emergency Department Summary 09/01/24 MR#: [id number] Acct: [id number] Name: ANDREIMAYITO ESCAMILLA Rep #:[id number] : 1985 39 From: Chemo Sherwood ggett DO PCP: Natasha Luciano OFFICE NURSE PRACTITIONER Status :REG ER Location: ED HPI History of Present Illness Chief Complaint: Substance Abuse Narrative Narrative: Chief complaint and HPI: 39-year-old male with past medical history of IV drug abuse with heroin presents for evaluation of opiate withdrawal. Patient states that he has been on Vivitrol injections monthly up until 2 months ago. He states that 4 days ago he used IV heroin. Patient states he went to the clinic yesterday and received his Vivitrol injection. He states shortly after he started to withdraw from opiates. He states that started with anxiety, muscle aches, restlessness, yawning, sweating it is now turned into nausea, and vomiting. Patient states he has tried Zofran at home with little relief. He states that he is not interested in admission for opiate detox. He states he just wants symptom control and discharged home. He states this feels like his similar withdrawals. Was asymptomatic prior to receiving the injection. Review of systems: See HPI Medications: As listed on the chart Allergies: As listed on the chart PFSH: Per chart Vital signs: As listed on the chart. Reviewed. Physical exam: Gen: A&O x3, restless, holding emesis bag Head: Normocephalic, atraumatic Eyes: No sclera icterus, conjunctiva clear, PERRL, EOMI ENT: Dry mucous membranes Neck: Trachea midline, No JVD CV: tachycardic, regular rhythm, no murmurs, no peripheral edema Resp: Lungs CTA BL, no w/r/c GI: Abd soft, non-distended, non-tender, no r/r/g Musc: Full ROM, no deformity Skin: Sweating, dry, multiple tattoos Neuro: Alert, oriented, grossly intact, sensation intact Psych: Cooperative [facility] Medical History Heroin abuse Opiate withdrawal Mandible fracture Carpal tunnel syndrome, bilateral Anxiety Depression Asthma Drug abuse IV drug user Substance abuse Home Medications ?Medication ?Instructions ?Recorded ?Last Taken ?Type venlafaxine 75 mg capsule,extended 150 mg PO DAILY moo d 04/21/22 04/21/22 History release 24 hr venlafaxine 150 mg 150 mg PO DAILY DEPRESSION 0 11/08/23 Unknown History capsule,extended release 24 hr Allergy/AdvReac Type Severity Reaction Status Date / Time No Known Allergies Allergy Verified 09/28/22 10:17 Social History Smoking Status: Current every day smoker tobacco type: cigarettes Smokeless tobacco user: chewing tobacco alcohol intake: never substance use type: opiates EXAM Physical Exam Const Vital Signs: 09/01/24 10:11 09/01/24 11:09 09/01/24 12:38 Temperature 99.3 F H Temperature Source Temporal Pulse Rate 110 H 75 65 Respiratory Rate 20 H 19 H 19 H Blood Pressure 140/93 H 139/89 H Blood Pressure Mean 108 105 Pulse Ox 100 100 93 Oxygen Delivery Method Room Air Room Air Room Air 09/01/24 13:00 Temperature Temperature Source Pulse Rate 75 Respiratory Rate 17 Blood Pressure 139/89 H Blood Pressure Mean 105 Pulse Ox 100 Oxygen Delivery Method Room Air MDM MDM MDM Narrative Medical decision making narrative: 39-year-old male with past medical history of IV drug abuse with heroin presentsfor evaluation of opiate withdrawal. Patient states that he has been on Vivitrol injections monthly up until 2 months ago. He states that 4 days ago heused IV heroin. He received a Vivitrol injection yesterday and now is an activeopiate withdrawal. Feels like similar episodes. States he wants symptom controland does not want to be admitted. Has tried Zofran with little relief. On presentation, patient is restless and sweaty. He is tachycardic. Differential diagnosis includes but is not limited to opiate withdrawal, electrolyte abnormality, LORI, substance intoxication. Prior to medication being given, EKG was obtained. This is personally reviewed and interpreted by me, ED physician. EKG has artifact secondary to patient's restlessness. Heart rate 99. Normal sinus rhythm with a QTc of 454. This is mildly elevated. Will be careful with QTc prolonging medications. However given patient's symptoms, NS bolus, Reglan,clonidine, Tylenol ordered. Basic labs ordered with urine drug screen and alcohol level. CBC with a leukocytosis of 18.1 as well as hemoconcentration witha hemoglobin of 16.9. I think this is likely reactive from his nausea and vomiting and suspected dehydration. Patient denies any infectious type symptoms. BMP is positive for dehydration with low bicarb and anion gap. No LORI. Anion gap is likely secondary to his nausea and vomiting. Do not suspect DKA despite his mild hyperglycemia 146. Another NS bolus ordered. Ethanol levelunremarkable. On reevaluation, fluids are still running. Patient is sleeping comfortably. Tachycardia has resolved. After patient received all medication and fluids, his symptoms have improved. He was able to sleep here in the emergency department. His tachycardia has resolved. No emesis. Restlessness and anxiety have resolved. Patient was given the option of admission for detox versus discharge home with antinausea medication. He elected to discharge home. He was told to follow-up with his PCP as well as the [facility] clinic. Return precautions were explained. He confirmed understanding the plan. Patient was discharged home. He was given a prescription for Zofran. Urine drug screen hadnot been obtained however I do not think that this is necessary anymore therefore patient will be discharged without it. Impression: 1. Acute opioid withdrawal secondary to Vivitrol injection 2. History of IV heroin abuse 3. Nausea and vomiting 4. Dehydration secondary to above Lab Data Labs: Laboratory Results - last 24 hr 04/05/25 10:52 WBC 18.1 H RBC 5.46 Hgb 16.9 H Hct 46.7 MCV 85.5 MCH 31.0 MCHC 36.2 H RDW Std Deviation 37.0 RDW Coeff of Corinne 11.9 Plt Count 445 MPV 9.0 Immature Gran % (Auto) 0.400 Neut % (Auto) 89.4 H Lymph % (Auto) 5.6 L Falls % (Auto) 4.3 Eos % (Auto) 0.0 Baso % (Auto) 0.3 Absolute Neuts (auto) 16.1 H Absolute Lymphs (auto) 1.01 Nucleated RBC % 0 Sodium 141 Potassium 3.8 Chloride 105 Carbon Dioxide 17.9 L Anion Gap 18 H BUN 9 Creatinine 1.06 Estim Creat Clear Calc 93.56 Est GFR (MDRD) Non-Af 92 BUN/Creatinine Ratio 8.2 L Glucose 146 H Calcium 10.2 Ethyl Alcohol < 10.1 Discharge Plan Triage Chief Complaint: Substance Abuse ED Provider: Chemo Dunlap Dx/Rx/DC Orders Prescriptions: No Action venlafaxine 75 mg capsule,extended release 24hr 150 mg PO DAILY venlafaxine 150 mg capsule,extended release 24hr 150 mg PO DAILY Primary Care Provider: Natasha Luciano NP Referrals: Care Physician,No Primary [Non-Staff] - Print Language: South African What to do if you have Problems For any increased pain, shortness of breath, bleeding, nausea or vomiting, chestpain, or any unexpected problems, contact your Primary Care Provider. Call [facility] ([phone]) or report to the closest Emergency Room. Call 911 if necessary. 09/01/24 1338 <Electronically signed by Chemo Dunlap DO> Cosigner Signature (if applicable): CC: Natasha Luciano NP ~ Signed [facility] Work Phone: Evaluation note* Diagnosis Hyperemesis- Primary Persistent vomiting Opiate use Poisoning by opium (alkaloids), unspecified [facility] Hyperemesis- Primary Persistent vomiting Opiate use Poisoning by opium (alkaloids), unspecified [facility]* Diagnosis Carpal tunnel syndrome, right- Primary Carpal tunnel syndrome Bilateral carpal tunnel syndrome Carpal tunnel syndrome Post-op pain Other acute postoperative pain documented [facility] this [facility]* Diagnosis S/P carpal tunnel release- Primary Other postprocedural status Carpal tunnel syndrome, left Carpal tunnel syndrome Carpal tunnel syndrome, left Carpal tunnel syndrome documented in this encounter [facility]* Diagnosis Gastroenteritis- Primary Other and unspecified noninfectious gastroenteritis and colitis Intractable vomiting with nausea Abdominal pain, unspecified abdominal location Polysubstance abuse (HCC) Other, mixed, or unspecified nondependent drug abuse, unspecified Leukocytosis, unspecified type Nausea and vomiting, unspecified vomiting type Acute colitis [facility] Diagnosis Opiate use- Primary Poisoning by opium (alkaloids), unspecified [facility] Diagnosis Opiate use- Primary Poisoning by opium (alkaloids), unspecified [facility] Diagnosis Left carpal tunnel syndrome- Primary Carpal tunnel syndrome documented in this encounter [facility] note* Diagnosis Onset Date Resolution Status Opiate withdrawal acute Heroin abuse chronic IV drug user chronic [facility] Work Phone: Evaluation note* Diagnosis Onset Date Resolution Status Dystonia acute Fever acute Intractable nausea and vomiting acute Opiate withdrawal acute Substance abuse acute Syncope acute Heroin abuse chronic IV drug user chronic [facility] Work Phone: Evaluation note* Diagnosis Bronchitis, acute, with bronchospasm- Primary Acute bronchitis documented in this encounter [facility] note* Diagnosis Respiratory failure with hypoxia (HCC)- Primary Acute respiratory failure with hypoxia (HCC) Opiate overdose, undetermined intent, initial encounter ([facility]) Nausea and vomiting, unspecified vomiting type documented in this encounter [facility] note* Diagnosis Onset Date Resolution Status Dysuria acute [facility] Work Phone: Evaluation note* Diagnosis Foreign body in skin of finger of right hand- Primary documented in this encounter [facility] note* Diagnosis Thrombosed external hemorrhoid- Primary External thrombosed hemorrhoids documented in this encounter [facility] note* Diagnosis Opiate overdose, accidental or unintentional, initial encounter ([facility])- Primary documented in this encounter [facility] note* Diagnosis Nausea and vomiting- Primary Nausea with vomiting Nausea and vomiting, unspecified vomiting type Abdominal pain, unspecified abdominal location Leukocytosis, unspecified type Abdominal pain Abdominal pain, unspecified site Leukocytosis Leukocytosis, unspecified Intractable nausea and vomiting documented in this encounter [facility] note* Diagnosis Subungual hematoma of fingernail, initial encounter- Primary documented in this encounter [facility] note* Diagnosis Tinnitus, unspecified laterality- Primary Acute otalgia, bilateral Eustachian tube dysfunction, bilateral TMJ tenderness, right [facility]* Diagnosis Cramping of hands- Primary Cramp of limb Dizziness Dizziness and giddiness Nausea and vomiting, unspecified vomiting type documented in this encounter [facility] note* Diagnosis Nausea and vomiting- Primary Nausea with vomiting Dehydration Nausea vomiting and diarrhea Cyclic vomiting syndrome Persistent vomiting Opioid use disorder Opioid use disorder documented in this encounter [facility] note* Diagnosis Fentanyl use disorder, mild, abuse (CMS/HCC) (HCC)- Primary Fentanyl use disorder, mild, abuse (CMS/HCC) (HCC) Nausea and vomiting, unspecified vomiting type documented in this encounter [facility] note* Diagnosis Nausea and vomiting, unspecified vomiting type- Primary Marijuana use documented in this encounter [facility] note* Diagnosis Opiate withdrawal (HCC)- Primary Drug withdrawal Opiate withdrawal (HCC) Drug withdrawal documented in this encounter [facility] noteNo assessment information [facility] Work Phone: Evaluation note* Diagnosis Opioid use disorder- Primary Opioid use disorder, severe, in early remission (HCC-CMS) documented in this encounter [facility] Work Phone: Evaluation note* Diagnosis Opioid use disorder, severe (HCC-CMS)- Primary documented in this encounter [facility] Work Phone: Evaluation note* Diagnosis Opioid use disorder, severe, in early remission (CMS & HHS-HCC)- Primary Opioid use disorder documented in this encounter [facility] Work Phone: Evaluation note* Diagnosis Opioid use disorder, severe (CMS & HHS-HCC)- Primary documented in this encounter [facility] Work Phone: Evaluation note* Diagnosis Opioid use disorder, severe ([facility])- Primary documented in this encounter [facility] Work Phone: Evaluation note* Diagnosis Opioid use disorder, severe, in early remission ([facility]) documented in this encounter [facility] Work Phone: Hospital Discharge instructions* Attachments The following attachments cannot be sent through Care Everywhere. * Gastroenteritis (South African) * Abdominal Pain ([place] African) [facility]* Attachments The following attachments cannot be sent through Care Everywhere. * Acute Bronchitis or Chest Cold Care Instructions ([facility]) ([place] African) documented in this encounter Discharge instructions* Attachments The following attachments cannot be sent through Care Everywhere. * Nausea and Vomiting, Adult ED (South African) documented in this [facility] Discharge instructions* Attachments The following attachments cannot be sent through Care Everywhere. * Drug Withdrawal Discharge Instructions (South African) documented in this [facility] Discharge instructions Additional Instructions Follow-up with primary care physician. [facility] Return back to the ED if symptoms change or worsen. Drink plenty of fluids. Antinausea medicine as needed. You received antinausea medication here in the emergency department. No medication for 8 hours.[facility] Work Phone: Hospital Discharge instructions Additional Instructions Thank you for trusting us with your care today! Your labs were reassuring. Your potassium level was slightly low. This was replaced with oral potassium. Please take Zofran as needed for nausea vomiting control at home Please take Tylenol (2 pills, 650 mg), ibuprofen (2 pills, 400 mg) every 6 hours as needed for pain and fever control. Please return to the emergency department if your symptoms change or worsen. Please follow with your primary care physician for further outpatient evaluation and management.[facility] Work Phone: Reason for referral (narrative)* Consultation (Urgent) - New Request Specialty Diagnoses / Procedures Referred By David snell Referred To Contact Family Medicine Diagnoses Bronchitis, acute, with bronchospasm Jayant Trimble MD [address] [place] [address] Referral ID Status Reason Start Date Expiration Date V isits Requested Visits Authorized [id number] New Request 05/13/2022 06/07/2023 [facility]No reason for referral information availableWCl[facility] Work Phone: Reason for referral (narrative)* Addiction Medicine (Routine) - Closed Specialty Diagnoses / Procedures Referred By Contac t Referred To Contact Counselor Addiction / Mental Health Diagnoses Opioid use disorder, severe, in early remission (HCC-CMS) Allan Elizabeth MD [address] [place] [id number] Phone: tel: fax: [facility] [address] [address] Phone: tel: fax: Referral ID Status Reason Start Date Expiration Date V isits Requested Visits Authorized [id number] Closed Continuity of Care 10/31/2024 04/29/2025 1 1 Comments Reason for referral: referral from [facility] with OUD, recent relapse now early in sobriety, wants 1-1 counseling, maybe groups but not sure with work schedule [facility] Work Phone: Reason for visit Narrative* Auth/Cert Specialty Diagnoses / Procedures Referred By Contac t Referred To Contact Diagnoses Bilateral carpal tunnel syndrome Bilateral carpal tunnel syndrome [G56.03] Procedures NH REVISE MEDIAN N/CARPAL TUNNEL SURG DECOMPRESSION TRANSPOSITION MEDIAN NERVE Referral ID Status Reason Start Date Expiration Date Visits Re quested Visits Authorized [id number] 1 1 [facility] Auth/Cert Specialty Diagnoses / Procedures Referred By Contac t Referred To Contact Diagnoses Carpal tunnel syndrome, left Carpal tunnel syndrome, left [G56.02] Procedures NH REVISE MEDIAN N/CARPAL TUNNEL SURG DECOMPRESSION TRANSPOSITION MEDIAN NERVE Referral ID Status Reason Start Date Expiration Date Visits Re quested Visits Authorized [id number] 1 1 [facility] Assessments Diagnosis Achilles tendinitis of both lower extremities - Primary Gastrocnemius equinus, unspe cified laterality Diagnosis Bilateral ankle pain, unspec ified chronicity Diagnosis Acute right ankle pain Diagnosis Acute right ankle pain Diagnosis Acute right ankle pain Diagnosis Acute right ankle pain Diagnosis Viral gastroenteritis Intestinal infection due to other organism, NEC Diagnosis Intractable nausea and vomiting Hyperemesis Persistent vomiting Diagnosis Sprain of interphalangeal joint of left thumb, initial encounter- Primary Summary Purpose Family History Relationship Condition Age at Onset Recorded Date/T mariam Unknown Family History?- Unknown December 1:33pm Family History?- Unknown December 1:33pm Relationship Condition Age at Onset Recorded Date/T mariam Unknown Family History?- Unknown December 2:33pm Family History?- Unknown December 2:33pm Advance Directives Documents on File Type Date Recorded Patient Workforce Planning Analyst Expl anation Advance Directives and Livin g Will 11/17/2019 11:49 PM Documents on File Type Date Recorded Patient Workforce Planning Analyst Expl anation Advance Directives and Livin g Will 12/03/2019 3:10 AM Latest Code Status on File Code Status Date Activated Date Inactivated Comments Full Code - Unverified 12/03/2019 8:01 AM 12/04/2019 10:48 PM Documents on File Type Date Recorded Patient Workforce Planning Analyst Expl anation Advance Directives and Livin g Will 07/20/2021 4:29 AM Documents on File Type Date Recorded Patient Workforce Planning Analyst Expl anation Advance Directives and Livin g Will 09/26/2021 11:26 PM Latest Code Status on File Code Status Date Activated Date Inactivated Comments Full Code 09/27/2021 4:15 AM 09/30/2021 1:39 PM Full Code - Unverified 12/03/2019 8:01 AM 12/04/2019 10:48 PM Advance Directive Response Recorded Date/ Time Living Will No April 21 6:18pm Power of Industrial Gas Fitter Helper No April 21, 2022 6:18pm Advance Directive Response Recorded Date/ Time Living Will No April 21 8:27pm Power of Industrial Gas Fitter Helper No April 21, 2022 8:27pm Latest Code Status on File Code Status Date Activated Date Inactivated Comments Full Code 05/31/2022 1:29 AM 06/04/2022 4:11 PM Code Status History Code Status Date Activated Date Inactivated Comments Full Code 09/27/2021 4:15 AM 09/30/2021 1:39 PM Full Code - Unverified 12/03/2019 8:01 AM 12/04/2019 10:48 PM Advance Directive Response Recorded Date/ Time Living Will No April 21 9:27pm Power of Industrial Gas [employer]itter Helper No April 21, 2022 9:27pm Latest Code Status on File Code Status Date Activated Date Inactivated Comments Full Code 06/07/2023 8:42 AM 06/07/2023 8:06 PM Code Status History Code Status Date Activated Date Inactivated Comments Full Code 06/07/2023 12:53 AM 06/07/2023 8:42 AM Latest Code Status on File Code Status Date Activated Date Inactivated Comments Full Code 10/25/2023 1:48 PM 10/29/2023 12:50 PM Code Status History Code Status Date Activated Date Inactivated Comments Full Code 06/07/2023 8:42 AM 06/07/2023 8:06 PM Full Code 06/07/2023 12:53 AM 06/07/2023 8:42 AM Date Activated Date Inactivated Comments 10/25/2023 1:48 PM 10/29/2023 12:50 PM Date Activated Date Inactivated Comments 06/07/2023 8:42 AM 06/07/2023 8:06 PM Date Activated Date Inactivated Comments 06/07/2023 12:53 AM 06/07/2023 8:42 AM Date Activated Date Inactivated Comments 08/13/2024 2:45 PM 08/14/2024 3:35 PM Date Activated Date Inactivated Comments 10/25/2023 1:48 PM 10/29/2023 12:50 PM Date Activated Date Inactivated Comments 06/07/2023 8:42 AM 06/07/2023 8:06 PM Date Activated Date Inactivated Comments 06/07/2023 12:53 AM 06/07/2023 8:42 AM Advance Directive Response Recorded Date/ Time Living Will No September 01, 2024 11:17am Do you have a Healthcare Power of Industrial Gas Fitter Helper? No September 01, 2024 11:17am Advance Directive Response Recorded Date/ Time Living Will No September 03, 2024 9:06pm Do you have a Healthcare Power of Industrial Gas Fitter Helper? No September 03, 2024 9:06pm Living Will No September 01, 2024 11:17am Do you have a Healthcare Power of Industrial Gas Fitter Helper? No September 01, 2024 11:17am History of Present Illness * Natasha Romero, PT - 03/27/2018 5:30 PM EDT Formatting of this note may be different from the original. [facility] OUTPATIENT REHABILITATION DAILY TREATMENT NOTE Today's Date 03/27/2018 Patient Name: Mayito Forbes Date of : 1985 Current Visit #: 4 Authorized Visits: 30 Case Name: Achilles tendinopathy History: Pre-Treatment Pain Scale: 0 Symptoms: gradually improved Functional Diagnosis: SNOMED CT(R) 1. Bilateral ankle pain, unspecified chronicity ANKLE PAIN Clinical Information: Subjective: Pt feels he is improving. Objective DF AROM: L ankle 8 degrees, R ankle 10 degrees Treatments: Physical Therapy Exercise Log - 03/27/18 1500 OTHER Vitals Visit 09/08 Therapeutic Exercise (29530) Intervention stationary bike Parameters seat 7, R4, 5 min Intervention tandem walking Parameters 2 laps Intervention toe walking Parameters 2 laps Intervention walking lunge Parameters 2 laps fwd/lat Intervention walking drinking birds Parameters 2 laps Intervention BOSU step ups Parameters x 20 ea Intervention heel raises off step Parameters 2 x 10 Manual Therapy (57884) Intervention ISTM PT Treatment Times Manual Therapy Total Time 12 Direct Treatment Time 12 Goals: Physical Therapy Ortho Goals: MOBILITY: Patient will be able to ambulate for 1 hour in community without difficulty in 6 weeks. CHANGING MAINTAINING POSITON: Patient will be able to stand for 3 hours with no pain in order to beable to complete job duties in 6 weeks. IMPAIRMENT: Improve AROM of Bilateral Ankle DF To 10 degrees in 6 weeks. OTHER: Patient will increase FOTO score to at least 77 to show MDC/MCII and expected functional outcome in 6 weeks. Patient Education: Conitnuing slow progression, may advance HEP heel raises to off step as long as no pain. with patient verbalized understanding. Post-Treatment Pain Scale: 0 Assessment: Patient had an expected response to treatment. Skilled Intervention demonstrated by modifications of treatment per exercise log including plane progressions and assessment of patient's response and safety interventions per exercise log. Progress towards goals as expected. Plan for Next Visit: Monitor reaction to treatment Natasha Romero, PT STATE LICENSE, [id number] in this encounter* Jose Candelario, FIBER WORKER - 04/17/2018 4:45 PM EST Formatting of this note may be different from the original. [facility] OUTPATIENT REHABILITATION DAILY TREATMENT NOTE Today's Date 04/17/2018 Patient Name: Mayito Forbes Date of : 1985 Current Visit #: 8 Authorized Visits: 30 Case Name: Achilles tendinopathy History: Pre-Treatment Pain Scale: 4 Symptoms: stabilized Functional Diagnosis: SNOMED CT(R) 1. Acute right ankle pain ACUTE ANKLE PAIN Clinical Information: Subjective: Patient reports that he notices that he places more weight on the L foot, reports that he thinks that might be part of the problem with overuse. Would like Objective No increase in pain with exercises on this date. Educated patient to try to stand with a more neutral stance. Treatments: Physical Therapy Exercise Log - 04/17/18 1500 OTHER Vitals visit 01/08 Therapeutic Exercise (42181) Intervention stationary bike Parameters seat 5, R5, 5 min Intervention calf stretch Parameters 20x3 wedge Intervention soleus stretch wedge Parameters 20x3 Intervention drinking bird Parameters 2 laps Intervention lunge with rotation Parameters 15# MB laps Intervention squat with press Parameters 15# 2 laps Intervention BOSU step up with OKD Parameters x20 ea Intervention retro lunge TRX Parameters 2x10 cues Manual Therapy (99021) Intervention IASTM to B gastroc/achilles Parameters 12 PT Treatment Times Therex Total Time 30 Manual Therapy Total Time 12 Direct Treatment Time 42 Total Treatment Time 46 Goals: Physical Therapy Ortho Goals: MOBILITY: Patient will be able to ambulate for 1 hour in community without difficulty in 6 weeks. CHANGING MAINTAINING POSITON: Patient will be able to stand for 3 hours with no pain in order to beable to complete job duties in 6 weeks. IMPAIRMENT: Improve AROM of Bilateral Ankle DF To 10 degrees in 6 weeks. OTHER: Patient will increase FOTO score to at least 77 to show MDC/MCII and expected functional outcome in 6 weeks. Patient Education: Quality of movement and HEP Adherence with patient verbalized understanding. Post-Treatment Pain Scale: 2 Assessment: Patient had an expected response to treatment. Skilled Intervention demonstrated by modifications of treatment per exercise log including increased load, increased rate, increased cueing, increased intensity and increased volume and safety interventions per exercise log. Progress towards goals as expected. Plan for Next Visit: Treatment Visit with focus on ankle stability and strengthening. Trial withoutSTW. Jose Somers Andree, FIBER WORKER STATE LICENSE, FIBER WORKER.[id number] in this encounter* Jose Candelario, FIBER WORKER - 04/26/2018 5:30 PM EST Formatting of this note may be different from the original. [facility] OUTPATIENT REHABILITATION DAILY TREATMENT NOTE Today's Date 04/26/2018 Patient Name: Mayito Forbes Date of : 1985 Current Visit #: 10 Authorized Visits: 30 Case Name: Achilles tendinopathy History: Pre-Treatment Pain Scale: 0 Symptoms: gradually improved Functional Diagnosis: SNOMED CT(R) 1. Acute right ankle pain ACUTE ANKLE PAIN Clinical Information: Subjective: Patient reports that overall he feels like he is doing better. Still will get pain but figures it will still take more time. Objective No increase in pain with slow kicking motion Treatments: Physical Therapy Exercise Log - 04/26/18 1500 OTHER Vitals visit 03/10 Therapeutic Exercise (16561) Intervention elliptical 5 min Parameters R5 Intervention calf stretch Parameters 20'x3 Intervention drinking bird Parameters 2 laps Intervention toe walking Parameters 2 laps Intervention lateral shuffle Parameters 2 laps Intervention ladder drills Parameters 5 min Intervention Medial heel tap Parameters 24 x10 ea Intervention side plank with reach Parameters 2x10 Therapeutic Exercise (73630) Intervention SLS x10, BOSU squat 3x10 Parameters with [place] reach BOSU Therapeutic Exercise (27822) Intervention standing slow leg kicks Parameters x10 ea PT Treatment Times Therex Total Time 40 Direct Treatment Time 40 Total Treatment Time 43 Goals: Physical Therapy Ortho Goals: MOBILITY: Patient will be able to ambulate for 1 hour in community without difficulty in 6 weeks. CHANGING MAINTAINING POSITON: Patient will be able to stand for 3 hours with no pain in order to beable to complete job duties in 6 weeks. IMPAIRMENT: Improve AROM of Bilateral Ankle DF To 10 degrees in 6 weeks. OTHER: Patient will increase FOTO score to at least 77 to show MDC/MCII and expected functional outcome in 6 weeks. Patient Education: Quality of movement, Verbal HEP and HEP Adherence with patient verbalized understanding. Post-Treatment Pain Scale: 0 Assessment: Patient had an expected response to treatment. Skilled Intervention demonstrated by modifications of treatment per exercise log including increased load, increased rate, increased cueing, increased intensity and increased volume and safety interventions per exercise log. Progress towards goals as expected. Plan for Next Visit: Treatment Visit with focus on 2 more visits then possible transition to [facility] Jose Candelario PTA STATE LICENSE, FIBER WORKER.[id number] in this encounter* Natasha Crowder, FIBER WORKER - 05/11/2018 5:30 PM EST Formatting of this note may be different from the original. [facility] OUTPATIENT REHABILITATION DAILY TREATMENT NOTE Today's Date 05/11/2018 Patient Name: Mayito Forbes Date of : 1985 Current Visit #: 12 Authorized Visits: 30 Case Name: Achilles tendinopathy History: Pre-Treatment Pain Scale: 5 Symptoms: stabilized Functional Diagnosis: SNOMED CT(R) 1. Acute right ankle pain ACUTE ANKLE PAIN Clinical Information: Subjective: Pt states that his ankle has been acting up the past few days. Objective Ambulation: Able to walk 1 hour but has ache Standing: Unable to stand 3 hours without pain at work. DF AROM: R:10 L: 7 FOTO: 68 Treatments: Physical Therapy Exercise Log - 05/11/18 1500 OTHER Precautions/Contraindications FOTO Vitals Visit 05/18 Therapeutic Exercise (13728) Intervention Elliptical 5 min Parameters R5 Intervention walking drummer/toe scroop Parameters 2 laps ea Intervention Quick jumps Parameters fwd/lat x30 ea Intervention SLS on BOSU Parameters BMB toss x10 R/L Intervention BOSU squat balance Parameters BMB x10 around the world Intervention [place] Parameters 2 laps Intervention Y balance Parameters 2x R/L Intervention FOTO PT Treatment Times Therex Total Time 43 Direct Treatment Time 43 Total Treatment Time 45 Goals: Physical Therapy Ortho Goals: MOBILITY: Patient will be able to ambulate for 1 hour in community without difficulty in 6 weeks. PROGRESSING mild pain 05/11/18 CHANGING MAINTAINING POSITON: Patient will be able to stand for 3 hours with no pain in order to beable to complete job duties in 6 weeks. PROGRESSING Mild pain 05/11/18 IMPAIRMENT: Improve AROM of Bilateral Ankle DF To 10 degrees in 6 weeks. PROGRESSING R:10 L:7 05/11/18 OTHER: Patient will increase FOTO score to at least 77 to show MDC/MCII and expected functional outcome in 6 weeks. PROGRESSING 68 05/11/18 Patient Education: Quality of movement, Verbal HEP and Diagnosis and recovery specific education with patient demonstrated understanding and verbalized understanding. Post-Treatment Pain Scale: 0 Assessment: Patient had an expected response to treatment. Skilled Intervention demonstrated by modifications of treatment per exercise log including increased cueing, increased intensity, increased mobility, increased volume and assessment of patient's response and safety interventions per exercise log. Progress towards goals as expected. Plan for Next Visit: Progress Note with focus on Continuing strengthening and advanced balance activities at 2x/wk for 4 additional weeks Natasha Crowder, GLO STATE LICENSE, FIBER WORKER.[id number] in this encounter* Natasha Romero, PT - 05/16/2018 5:30 PM EST Formatting of this note may be different from the original. [facility] OUTPATIENT REHABILITATION DAILY TREATMENT NOTE Today's Date 05/16/2018 Patient Name: Mayito Forbes Date of : 1985 Current Visit #: 13 Authorized Visits: 30 Case Name: Achilles tendinopathy History: Pre-Treatment Pain Scale: 0 Symptoms: gradually improved Functional Diagnosis: SNOMED CT(R) 1. Acute right ankle pain ACUTE ANKLE PAIN Clinical Information: Subjective: Pt reports overall improvement, still has an ache in L achilles at work. Objective No pain with ex's. Treatments: Physical Therapy Exercise Log - 05/16/18 1500 OTHER Vitals Visit Therapeutic Exercise (01493) Intervention Elliptical 5 min Parameters R 5 Intervention calf raises off step, 2 up, 1 down Parameters 3 x 10 ea Intervention calf stretch Parameters 20 sec x 3 Intervention SLS BOSU Parameters 20 sec x 3 Intervention side up and overs BOSU Parameters 3 x 10 Intervention BOSU squat (flat side) Parameters 2 x 10 Intervention rebounder blue ball, standing on BOSU Parameters x 10 Intervention quick jumps Parameters fwd/lat 2 x 30 ea Therapeutic Exercise (70343) Intervention ladder drills Parameters 4 min Therapeutic Exercise (79754) Intervention lateral shuffle Parameters 2 laps Therapeutic Exercise (07369) Intervention Alps Parameters 2 x 5 ea PT Treatment Times Therex Total Time 38 Direct Treatment Time 38 Total Treatment Time 40 Goals: Physical Therapy Ortho Goals: MOBILITY: Patient will be able to ambulate for 1 hour in community without difficulty in 6 weeks. PROGRESSING mild pain 05/11/18 CHANGING MAINTAINING POSITON: Patient will be able to stand for 3 hours with no pain in order to beable to complete job duties in 6 weeks. PROGRESSING Mild pain 05/11/18 IMPAIRMENT: Improve AROM of Bilateral Ankle DF To 10 degrees in 6 weeks. PROGRESSING R:10 L:7 05/11/18 OTHER: Patient will increase FOTO score to at least 77 to show MDC/MCII and expected functional outcome in 6 weeks. PROGRESSING 68 05/11/18 Patient Education: Pain Management and monitoring symptoms, continuing with current HEP (ex's should not increase pain) with patient verbalized understanding. Post-Treatment Pain Scale: 0 Assessment: Patient had an expected response to treatment. Skilled Intervention demonstrated by modifications of treatment per exercise log including plane progressions, increased cueing and assessment of patient's response and safety interventions per exercise log. Progress towards goals as expected. Plan for Next Visit: Continue with strengthening and endurance ex's, monitor symptoms Natasha Romero, PT STATE LICENSE, [id number] in this encounter* Kenyon Briceno, PT - 06/01/2018 2:30 PM EST Formatting of this note may be different from the original. [facility] OUTPATIENT REHABILITATION DAILY TREATMENT NOTE Today's Date 06/01/2018 Patient Name: Mayito Frobes Date of : 1985 Current Visit #: 14 Authorized Visits: 30 Case Name: Achilles tendinopathy History: Pre-Treatment Pain Scale: doing better Symptoms: gradually improved Functional Diagnosis: SNOMED CT(R) 1. Acute right ankle pain ACUTE ANKLE PAIN Clinical Information: Subjective: Reports training yesterday and having minimal pain today. Objective : Patient arrived 15' late to apt Treatments: Physical Therapy Exercise Log - 06/01/18 1443 OTHER Vitals Visit Therapeutic Exercise (61294) Intervention treadmill Parameters 5.5 mph up to 6 mph Intervention SL calf raises on ground Parameters holding 30# kb 3x10 R/L Intervention fast concentric Sl heel raise Parameters edge of step 3x10 Intervention skipping Parameters emphasis on ankle PF 6x30' Intervention line jumps Parameters 4x30 ant/post and med/lat Intervention -- Parameters -- Intervention reviewed HEP - HSR (provided with progression and handout - emphasis on overload) Parameters -- Intervention -- Parameters -- Therapeutic Exercise (14491) Intervention -- Parameters -- Therapeutic Exercise (50871) Intervention -- Parameters -- Therapeutic Exercise (92387) Intervention -- Parameters -- PT Treatment Times Therex Total Time 30 Direct Treatment Time 30 Total Treatment Time 35 Goals: Physical Therapy Ortho Goals: MOBILITY: Patient will be able to ambulate for 1 hour in community without difficulty in 6 weeks. PROGRESSING mild pain 05/11/18 CHANGING MAINTAINING POSITON: Patient will be able to stand for 3 hours with no pain in order to beable to complete job duties in 6 weeks. PROGRESSING Mild pain 05/11/18 IMPAIRMENT: Improve AROM of Bilateral Ankle DF To 10 degrees in 6 weeks. PROGRESSING R:10 L:7 05/11/18 OTHER: Patient will increase FOTO score to at least 77 to show MDC/MCII and expected functional outcome in 6 weeks. PROGRESSING 68 05/11/18 Patient Education: Quality of movement and Diagnosis and recovery specific education with patient demonstrated understanding and verbalized understanding. Post-Treatment Pain Scale: 0 Assessment: Patient had an expected response to treatment. Skilled Intervention demonstrated by modifications of treatment per exercise log including increased load and assessment of patient's response and safety interventions per exercise log. Progress towards goals as expected. Plan for Next Visit: Treatment Visit with focus on plyometrics and HSR progressions Kenyon Briceno, [place] STATE LICENSE, [phone] in this encounter* Sebas Guerrero MD - 12/04/2019 10:04 AM EDT [facility] Medicine Inpatient Follow-up 12/04/2019 Sebas Guerrero MD [facility] Patient: Mayito Forbes Date of : 1985 (34 y.o.) PCP: Physician No ASSESSMENT/PLAN: Mayito Forbes 34 y.o. male presented with complains of Active Problems: Hyperemesis Possible cyclic hyperemesis secondary to marijuana use PLAN: 12/02 Patient has had at least 2 episodes of intractable nausea vomiting over the last few weeks he admithe smokes marijuana on daily basis no recent travel outside the area no change in diet recently or sick contact CT abdomen and pelvis negative for acute findings Continue IV fluid and Zofran Start the patient on capsicin gel 12/03 Patient still having some nausea without vomiting no abdominal pain or fever Patient refused to use capsicin cream stated that is burning when he applied to his abdomen Continue Reglan and Zofran PRN Discharge plan home when symptoms get better controlled SUBJECTIVE: Follow-up for intractable nausea and vomiting All other systems reviewed and negative other than noted above. OBJECTIVE: Physical Examination: BP 129/78 Pulse (!) 51 Temp 98.4 F (36.9 C) (Oral) Resp 14 Ht 5' 6 Wt 77.1 kg (169 lb 15.6 oz) SpO2 96% BMI 27.43 kg/m General Appearance: Alert, well appearing, and in no acute distress. HEENT: Head - Normocephalic, atraumatic. Eyes - GAVINO bilaterally and EOMI. Ears - normal external appearance, hearing intact. Nose - normal, no erythema. Throat - mucous membranes moist, pharynx without lesions. Neck: Supple, trachea midline. Cardiovascular: S1, S2 normal. No murmurs, rubs, clicks or gallops appreciated. No pedal edema. Respiratory: Lungs clear to auscultation, no wheezes, rales or rhonchi heard. Abdomen: Soft, non-tender, normal bowel sounds, non-distended, no masses or organomegaly appreciated. Neurological: Grossly normal motor and sensory exam. No focal deficits. Musculoskeletal: No joint tenderness, deformity or swelling. Skin: Normal coloration and turgor. No rashes. Psych: Alert, oriented x 3. Normal mood and affect. CURRENT MEDICATIONS: capsaicin Topical BID pantoprazole 40 mg Intravenous Daily Results/Medications Reviewed 12/04/19 10:04 AM: Results from last 7 days Lab Units 12/04/19 0618 12/03/19 0240 SODIUM mmol/L 142 142 POTASSIUM mmol/L 3.6 4.1 CHLORIDE mmol/L 109* 104 BUN mg/dL 8 5* CREATININE mg/dL 0.87 1.03 GLUCOSE mg/dL 109* 112* CALCIUM mg/dL 8.8 9.6 Results from last 7 days Lab Units 12/04/19 0618 12/03/19 0240 WBC K/mcL 11.90* 12.64* HGB g/dL 15.2 17.0 HCT % 44.1 49.3 PLT K/mcL 356 391 Results from last 7 days Lab Units 12/03/19 0240 ALK PHOS U/L 112 BILIRUBIN TOTAL mg/dL 0.8 TOTAL PROTEIN g/dL 8.8* ALTR U/L 26 AST U/L 28 CULTURES: Reviewed 10:04 AM IMAGING: Reviewed 10:04 AM * Sebas Guerrero MD - 12/03/2019 10:36 AM EDT [facility] Medicine Inpatient Follow-up 12/03/2019 Sebas Guerrero MD [facility] Patient: Mayito Forbes Date of : 1985 (34 y.o.) PCP: Physician No ASSESSMENT/PLAN: Mayito Forbes 34 y.o. male presented with complains of Active Problems: Hyperemesis Possible cyclic hyperemesis secondary to marijuana use PLAN: 12/02 Patient has had at least 2 episodes of intractable nausea vomiting over the last few weeks he admithe smokes marijuana on daily basis no recent travel outside the area no change in diet recently or sick contact CT abdomen and pelvis negative for acute findings Continue IV fluid and Zofran Start the patient on capsicin gel SUBJECTIVE: Follow-up for intractable nausea and vomiting All other systems reviewed and negative other than noted above. OBJECTIVE: Physical Examination: BP (!) 148/98 Pulse 60 Temp 100 F (37.8 C) (Oral) Resp 18 Ht 5' 6 Wt 77.1 kg (169 lb 15.6 oz) SpO2 100% BMI 27.43 kg/m General Appearance: Alert, well appearing, and in no acute distress. HEENT: Head - Normocephalic, atraumatic. Eyes - GAVINO bilaterally and EOMI. Ears - normal external appearance, hearing intact. Nose - normal, no erythema. Throat - mucous membranes moist, pharynx without lesions. Neck: Supple, trachea midline. Cardiovascular: S1, S2 normal. No murmurs, rubs, clicks or gallops appreciated. No pedal edema. Respiratory: Lungs clear to auscultation, no wheezes, rales or rhonchi heard. Abdomen: Soft, non-tender, normal bowel sounds, non-distended, no masses or organomegaly appreciated. Neurological: Grossly normal motor and sensory exam. No focal deficits. Musculoskeletal: No joint tenderness, deformity or swelling. Skin: Normal coloration and turgor. No rashes. Psych: Alert, oriented x 3. Normal mood and affect. CURRENT MEDICATIONS: pantoprazole 40 mg Intravenous Daily Results/Medications Reviewed 12/03/19 10:36 AM: Results from last 7 days Lab Units 12/03/19 0240 SODIUM mmol/L 142 POTASSIUM mmol/L 4.1 CHLORIDE mmol/L 104 BUN mg/dL 5* CREATININE mg/dL 1.03 GLUCOSE mg/dL 112* CALCIUM mg/dL 9.6 Results from last 7 days Lab Units 12/03/19 0240 WBC K/mcL 12.64* HGB g/dL 17.0 HCT % 49.3 PLT K/mcL 391 Results from last 7 days Lab Units 12/03/19 0240 ALK PHOS U/L 112 BILIRUBIN TOTAL mg/dL 0.8 TOTAL PROTEIN g/dL 8.8* ALTR U/L 26 AST U/L 28 CULTURES: Reviewed 10:36 AM IMAGING: Reviewed 10:36 AM documented in this encounter Discharge Instructions * Instructions* Natasha Luciano CNP - 11/18/2019 If any new or worsening symptoms may return to the emergency department. Clear liquid diet and advance slowly as tolerated. * Attachments The following attachments cannot be sent through Care Everywhere. * Gastroenteritis ([place]) documented in this encounter* Attachments The following attachments cannot be sent through Care Everywhere. * Nausea and Vomiting ([place]) documented in this encounter* Instructions* Radha Grider APRN-MONOTYPE MECHANIC - 09/26/2018 Splint as directed. Rest, ice, elevate. Naproxen as prescribed, take with food; avoid additional ibuprofen, Aleve, or aspirin while taking. Please follow-up with your primary care provider on week for recheck, return for new or worsening symptoms. * Attachments The following attachments cannot be sent through Care Everywhere. * Finger Sprain ([place]) documented in this encounter Hospital Course * Sebas Guerrero MD - 12/04/2019 5:58 PM EDT HOSPITALIST DISCHARGE SUMMARY Patient: Mayito Forbes Account: [id number] Admitted: 12/03/2019 Discharge Date/Time: 12/04/2019 Clinical Summary FINAL DIAGNOSIS: Active Problems: Hyperemesis REASON FOR HOSPITALIZATION AND ADMITTING DIAGNOSIS: Abdominal Pain; Emesis; and Nausea Intractable nausea and vomiting [R11.2] HOSPITAL COURSE: Mayito Forbes 34 y.o. male presented with complains of Active Problems: Hyperemesis Possible cyclic hyperemesis secondary to marijuana use PLAN: 12/02 Patient has had at least 2 episodes of intractable nausea vomiting over the last few weeks he admithe smokes marijuana on daily basis no recent travel outside the area no change in diet recently or sick contact CT abdomen and pelvis negative for acute findings Continue IV fluid and Zofran Start the patient on capsicin gel 12/03 Patient still having some nausea without vomiting no abdominal pain or fever Patient refused to use capsicin cream stated that is burning when he applied to his abdomen Continue Reglan and Zofran PRN Discharge plan home when symptoms get better controlled Patient tolerates diet well . No more nausea Vs stable Discharge on Zofran and protonix CONDITION AT DISCHARGE: Stable Physical Examination: Blood pressure 120/71, pulse (!) 51, temperature 98.8 F (37.1 C), temperature source Oral, resp. rate 14, height 5' 6, weight 77.1 kg (169 lb 15.6 oz), SpO2 97 %. General appearance: alert, cooperative, in no acute distress. Head/Neck: Head- normocephalic. Neck- supple, non-tender, without lymphadenopathy Eyes: No Scleral icterus or pallor; EOMI ENT: Trachea midline. Cardiovascular: regular rate and rhythm; normal S1, S2; no murmurs, rubs, clicks or gallops; No/+ peripheral edema. Respiratory: lungs clear to auscultation; without wheezes, rales or rhonchi. Abdomen: soft, non tender, non-distended; positive bowel sounds. Neurological: alert, oriented, normal speech; no focal findings or movement disorder noted. Musculoskeletal: no significant deformity noted. Skin: normal coloration, texture and turgor; no lesions or eruptions. Procedures: No orders of the defined types were placed in this encounter. Consults: No orders of the defined types were placed in this encounter. Other Tests: No orders of the defined types were placed in this encounter. LAST LABS: Results from last 7 days Lab Units 12/04/19 0618 SODIUM mmol/L 142 POTASSIUM mmol/L 3.6 CHLORIDE mmol/L 109* BUN mg/dL 8 CREATININE mg/dL 0.87 GLUCOSE mg/dL 109* CALCIUM mg/dL 8.8 Results from last 7 days Lab Units 12/03/19 0240 ALK PHOS U/L 112 BILIRUBIN TOTAL mg/dL 0.8 TOTAL PROTEIN g/dL 8.8* ALTR U/L 26 AST U/L 28 Results from last 7 days Lab Units 12/04/19 0618 WBC K/mcL 11.90* HGB g/dL 15.2 HCT % 44.1 PLT K/mcL 356 Allergies: Patient has no known allergies. Discharge Diet: Diet Regular; Regular Disposition: Home Discharge Medications Medication List START taking these medications pantoprazole 40 MG tablet Commonly known as: PROTONIX Take 1 (one) tablet (40 mg total) by mouth daily . CONTINUE taking these medications ondansetron 4 MG tablet Commonly known as: ZOFRAN Take 1 (one) tablet (4 mg total) by mouth every 8 (eight) hours as needed for nausea . STOP taking these medications ibuprofen 400 MG tablet Commonly known as: ADVIL,MOTRIN Where to Get Your Medications These medications were sent to [id number] [place] [id number] [facility] AT [address] [id number] pantoprazole 40 MG tablet Physician(s) Family: Physician No, Phone: None, Address: [facility] Follow Up: No follow-up provider specified. Patient instructions, including activity, were given to the patient/family at discharge. Please seethe After Visit Summary in the medical record for details. Time spent on discharge: < 30 minutes Completed by: Sebas Guerrero on 12/04/19, 5:58 PM documented in this encounter Chief Complaint and Reason for Visit Chief Complaint REQUESTING OPIATE DE TOX SERVICES, OPIATE ADDICTION Reason for Visit Opiate withdrawal Heroin abuse IV drug user Chief Complaint REQUESTING OPIATE DE TOX SERVICES, OPIATE ADDICTION REQUESTING OPIATE DETOX SERVICES, OPIATE ADDICTION REQUESTING OPIATE DETOX SERVICES, OPIATE ADDICTION REQUESTING OPIATE DETOX SERVICES, OPIATE ADDICTION REQUESTING OPIATE DETOX SERVICES, OPIATE ADDICTION REQUESTING OPIATE DETOX SERVICES, OPIATE ADDICTION Reason for Visit Dystonia Fever Intractable nausea and vomiting Opiate withdrawal Substance abuse Syncope Heroin abuse IV drug user Chief Complaint STD CHECK/BURNING DU RING URINATION Reason for Visit Dysuria Chief Complaint Admit Date opioid withdrawal September 01, 2024 10:1 1am Chief Complaint Admit Date opioid withdrawal September 01, 2024 10:1 1am WITHDRAW September 03, 2024 7:05 pm Health Concerns Assessment Noted Time PHQ-9 Depression Total Score: 7 11/17/19 12:00 PM PDT Additional Source Comments (unrecognized sect ion and content) No Status Records FoundNo Status Records FoundNo Status Records FoundNo Status Records FoundNo Status Records FoundNo Status Records FoundNo Status Records FoundNo Status Records FoundNo Status Records FoundNo Status Records FoundNo Status Records Found INFORMATION SOURCE (unrecogn ized section and content) DATE CREATED AUTHOR 03/20/2018 [facility] DATE CREATED AUTHOR AUTHOR'S ORGANIZ ATION 06/05/2018 [facility] DATE CREATED AUTHOR AUTHOR'S ORGANIZ ATION 11/05/2021 [facility] DATE CREATED AUTHOR AUTHOR'S ORGANIZ ATION 05/20/2022 [facility] DATE CREATED AUTHOR AUTHOR'S ORGANIZ ATION 06/06/2022 [facility] DATE CREATED AUTHOR AUTHOR'S ORGANIZ ATION 06/22/2022 [facility] DATE CREATED AUTHOR AUTHOR'S ORGANIZ ATION 08/30/2023 [facility] DATE CREATED AUTHOR AUTHOR'S ORGANIZ ATION 09/30/2023 [facility] DATE CREATED AUTHOR AUTHOR'S ORGANIZ ATION 08/14/2024 [facility] CREATED AUTHOR AUTHOR'S ORGANIZ ATION 09/09/2024 [facility] DATE CREATED AUTHOR AUTHOR'S ORGANIZ ATION 12/01/2024 [facility] Reason for Visit (unrecogniz ed section and content) Reason Comments Physical Therapy Status Reason Specialty Diagnoses / Procedures Referred By Contact Referred To Contact Authorized Physical Therapy / Rehabilitation Diagnoses Achilles tendinitis of both lower extremities Gastrocnemius equinus, unspecified laterality Yan Jimenez, DPM [address] [place] [address] [address] Reason Comments Nausea Emesis Reason Comments Abdominal Pain Emesis Nausea Status Reason Specialty Diagnoses / Procedures Referre d By Contact Referred To Contact Diagnoses Intractable nausea and vomiting Reason Comments Hand Injury bent thumb back.left hand Reason Comments Post Op Visit S/p Right carpal brandon serenity release. DOS:07/22/21. POD 14 Dr[address] Ca. Reason Comments Nausea Jaw Pain Specialty Diagnoses / Procedures Referred By Contac t Referred To Contact Diagnoses Gastroenteritis Abdominal pain, unspecified abdominal location Intractable vomiting with nausea Referral ID Status Reason Start Date Expiration Date Visits Re quested Visits Authorized [id number] 1 Reason Onset Date Comments ED Follow-up 10/05/2021 This [employer] member spoke with Pt. He stats that he is still in treatment and doing well. Reason Comments Shortness of Breath Pt presents to ED C/ O SOB [id number]. Pt states he is having hard time catching his breath. Pt states it has gotten worse this week. Pt states 6/10 pain while breathing. Reason Comments Drug Overdose Specialty Diagnoses / Procedures Referred By Contac t Referred To Contact Diagnoses Respiratory failure with hypoxia (HCC) Referral ID Status Reason Start Date Expiration Date Visits Re quested Visits Authorized [id number] 1 Reason Comments Hemorrhoids Reason Comments Vomiting Pt presents to ED wi th c/o vomiting and diarrhea since 0100 today. Also c/o generalized abdominal pain Specialty Diagnoses / Procedures Referred By Contac t Referred To Contact Diagnoses Nausea and vomiting Intractable nausea and vomiting Abdominal pain, unspecified abdominal location Leukocytosis, unspecified type Nausea and vomiting, unspecified vomiting type Procedures [id number] and vomiting [id number] nausea and vomiting Ebenezer Shook MD [address] [place] [address] [facility] [address] [place] [address] Referral ID Status Reason Start Date Expiration Date Visits Re quested Visits Authorized [id number] 1 Reason Comments Hand Pain Reason Comments Ear Problem Ear is painful and r inging, has been using otc ear drops Reason Comments cramping hands Dizziness Reason Comments Vomiting N/V/D x2 days Specialty Diagnoses / Procedures Referred By Contduke t Referred To Contact Diagnoses Dehydration Nausea and vomiting Cyclic vomiting syndrome Nausea vomiting and diarrhea Procedures [id number] and vomiting Ebenezer Shook MD [address] [place] [address] [facility] [address] [place] [address] Referral ID Status Reason Start Date Expiration Date Visits Re quested Visits Authorized [id number] 1 Reason Onset Date Comments Appointment Request 10/29/2023 Reason Comments Addiction Problem 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 Patient unsure of how much he uses a day Reason Comments Drug Overdose Patient arrived to E D via EMS after being called out for a drug overdose. Endorses to smoking weed. +n/v Reason Onset Date Comments ER Follow-up 04/12/2024 Reason Comments Addiction Problem Pt presents to ED fo r fentanyl detox. Pt reports last use was 3 days ago. Pt states I was using a couple shots. Pt reports he had relapsed for 1.5 weeks. Pt reports extreme cramping. Specialty Diagnoses / Procedures Referred By Contduke t Referred To Contact Diagnoses Opiate withdrawal (HCC) Procedures 0 Ole Conway MD [address] [facility] [address] [place] [address] Phone: tel: fax: [facility] ED [address] [place] [address] Phone: tel: Referral ID Status Reason Start Date Expiration Date Visits Re quested Visits Authorized [id number] 1 1 Reason Comments MAT Intake Reason Comments Assessment Full Telehealth (Video) Reason Comments Medication Assisted Treatment (MAT) Reason Comments Medication Management Reason Comments Individual Counseling Telehealth (Audio) Reason Comments Medication Assisted Treatment (MAT) Medication Management Natasha Luciano, NOE - 11/17/2019 11:11 PM Lizbet Jerry RN - 11/17/2019 10:21 PM Jayden Wylie LPN - 11/17/2019 10:14 PM Fawn Hickey PSA - 12/03/2019 7:23 AM EDT ED Notes (unrecognized secti on and content) [facility] ED MARYELLEN Note: NAME: Mayito Forbes 34 y.o. CSN: [id number] PCP: Physician No History: Chief Complaint: Nausea and Emesis HPI: The history was obtained from the patient. Mayito is a 34 y.o. male who presents with a chief complaint of Nausea and Emesis. Patient resting emergency department with nausea and vomiting and chills for 3 days. He also reports abdominal cramping and diarrhea. He denies cough, shortness of breath, chest pain, rash, sore throat or any other associated symptoms. He has not treated. Large emesis in the ED of stomach contents. PMHx: History reviewed. No pertinent past medical history. PMSx: Past Surgical History: Procedure Laterality Date MANDIBLE FRACTURE SURGERY 06/26/2011 FAM. Hx: History reviewed. No pertinent family history. SOC. Hx: Social History Socioeconomic History Marital status: Single Spouse name: Not on file Number of children: Not on file Years of education: Not on file Highest education level: Not on file Occupational History Not on file Social Needs Financial resource strain: Not on file Food insecurity Worry: Not on file Inability: Not on file Transportation needs Medical: Not on file Non-medical: Not on file Tobacco Use Smoking status: Never Smoker Smokeless tobacco: Never Used Substance and Sexual Activity Alcohol use: Not on file Drug use: Not on file Sexual activity: Not on file Lifestyle Physical activity Days per week: Not on file Minutes per session: Not on file Stress: Not on file Relationships Social connections Talks on phone: Not on file Gets together: Not on file Attends confucianism service: Not on file Active member of club or organization: Not on file Attends meetings of clubs or organizations: Not on file Relationship status: Not on file Other Topics Concern Not on file Social History Narrative Not on file MEDs: Previous Medications Medication Sig ibuprofen (ADVIL,MOTRIN) 400 MG tablet Take 400 mg by mouth every 6 (six) hours as needed for pain. ALL: No Known Allergies ROS: Review of Systems Positives and pertinent negatives as per HPI. All other systems were reviewed and are negative. Physical Exam: Patient Vitals for the past 24 hrs: BP Temp Temp src Pulse Resp SpO2 Height Weight 11/18/19 0058 135/86 75 16 11/18/19 0000 124/79 62 16 99 % 11/17/19 2222 126/77 98.2 F (36.8 C) Oral (!) 57 16 96 % 5' 6 81.6 kg (180 lb) Physical Exam Vitals signs and nursing note reviewed. Constitutional: Appearance: He is well-developed. He is ill-appearing. HENT: Head: Normocephalic and atraumatic. Nose: Nose normal. Eyes: General: No scleral icterus. Conjunctiva/sclera: Conjunctivae normal. Neck: Musculoskeletal: Normal range of motion and neck supple. Cardiovascular: Rate and Rhythm: Normal rate and regular rhythm. Heart sounds: No murmur. Pulmonary: Effort: Pulmonary effort is normal. No respiratory distress. Breath sounds: Normal breath sounds. Comments: No cough Abdominal: General: Bowel sounds are increased. Tenderness: There is generalized abdominal tenderness. There is no right CVA tenderness or left CVA tenderness. Musculoskeletal: Right lower leg: He exhibits no swelling. No edema. Left lower leg: He exhibits no swelling. No edema. Skin: General: Skin is warm and dry. Findings: No rash. Neurological: Mental Status: He is alert and oriented to person, place, and time. Psychiatric: Behavior: Behavior normal. Laboratory & Radiological Imaging (if done): Labs Reviewed COMPREHENSIVE METABOLIC PANEL - Abnormal; Notable for the following components: Result Value Glucose 123 (*) Total Protein 10.5 (*) Calcium 10.6 (*) All other components within normal limits Narrative: The eGFR should be used for monitoring renal function only and not for medication dosing. LIPASE - Abnormal; Notable for the following components: Lipase 63 (*) All other components within normal limits CBC WITH AUTO DIFFERENTIAL - Abnormal; Notable for the following components: RBC 6.48 (*) Hemoglobin 18.7 (*) Hematocrit 56.1 (*) Platelets 419 (*) MPV 8.3 (*) Neutrophils Abs 9.08 (*) Lymphocytes Abs 0.87 (*) All other components within normal limits COVID-19, MOLECULAR - Normal PT/INR - Normal Narrative: During the induction phase of oral anticoagulation, the INR may not reflect the anticoagulation status of the patient. Therapeutic ranges for INR's are: Most clinical situations: INR 2.0-3.0 Mechanical Prosthetic Valve: INR 2.5-3.5 Critical: INR >5.0 CBC AND DIFFERENTIAL Narrative: The following orders were created for panel order CBC w/ Diff. Procedure Abnormality Status --------- ------ CBC Auto Differential[[id number]] Abnormal Final result Please view results for these tests on the individual orders. CT Abdomen Pelvis With IV Contrast Only Final Result 1. Small bowel wall thickening and enhancement consistent with enteritis. Negative for bowel obstruction or pneumatosis. No other acute findings are seen in the abdomen or pelvis. 2. Right renal cyst. Workstation ID: [id number] MDM: ED Course as of Nov 17 224 [facility] Nov 17, 2019 2311 SARS-CoV-2: Not Detected [SS] Sun Nov 18, 2019 0016 Lipase(!): 63 [SS] 0016 PROTIME: 13.5 [SS] 0016 INR: 1.1 [SS] 0016 SODIUM: 136 [SS] 0016 POTASSIUM: 4.3 [SS] 0016 Bicarbonate: 30 [SS] 0016 GLUCOSE(!): 123 [SS] 0016 Total Protein(!): 10.5 [SS] 0016 CALCIUM(!): 10.6 [SS] 0222 IMPRESSION: 1. Small bowel wall thickening and enhancement consistent with enteritis. Negative for bowel obstruction or pneumatosis. No other acute findings are seen in the abdomen or pelvis. 2. Right renal cyst [SS] 0222 Discussed all findings with patient plan to DC home. He is in agreement with this plan. [SS] ED Course User Index [SS] Natasha Luciano CNP Clinical Impression: 1. Viral gastroenteritis Disposition: Patient is being discharge home. Natasha Luciano NP-C ED Advanced Practice Provider [facility] Emergency Department (Please note that portions of this note have been completed with a voice recognition software. Efforts were made to correct any errors, but occasionally words are mis-transcribed.) Natasha Luciano CNP 11/18/19 0225 Pt reports he has had n/v and chills x 3 days. Denies any exposure to any sick persons. Pt reports abdominal cramping and diarrhea. Special isolation precautions are in place with signage outside this patient's room. This child care attendant school performs hand hygiene and enters the patient room wearing: ? gloves ? an appropriately fitting (N-95, PAPR, Aura) mask ? face shield ? protective gown to provide care. See documentation for the care provided. documented in this encounter THIS PSA IS TRANSPORTING PT TO ROOM 2106 Report called. Awaiting transport to floor Dr. Johnson in to see patient. To stay in hospital Report received from Emily ONEAL. Sleeping. [employer] [facility] ED Attending Note: NAME: Mayito Forbes 34 y.o. CSN: [id number] PCP: Physician No History: Chief Complaint: Abdominal Pain; Emesis; and Nausea HPI: The history was obtained from the patient. Mayito is a 34 y.o. male who presents with a chief complaint of Abdominal Pain; Emesis; and Nausea. HPI this is a 34-year-old male, presenting today for evaluation of abdominal pain. Is been ongoing since 4:00. He denies any chest pain or shortness of breath. He states that he is very nauseated, and has been having a lot of vomiting. He Has no pertinent past medical history. He has no pertinent surgical history. He states that he feels he feels generally fatigued, denies any changes in the past bowel or bladder habits. Describes it as squeezing in nature. PMHx: History reviewed. No pertinent past medical history. PMSx: Past Surgical History: Procedure Laterality Date MANDIBLE FRACTURE SURGERY 06/26/2011 FAM. Hx: History reviewed. No pertinent family history. SOC. Hx: Social History Socioeconomic History Marital status: Single Spouse name: Not on file Number of children: Not on file Years of education: Not on file Highest education level: Not on file Occupational History Not on file Social Needs Financial resource strain: Not on file Food insecurity Worry: Not on file Inability: Not on file Transportation needs Medical: Not on file Non-medical: Not on file Tobacco Use Smoking status: Never Smoker Smokeless tobacco: Never Used Substance and Sexual Activity Alcohol use: Never Frequency: Never Drug use: Never Sexual activity: Not on file Lifestyle Physical activity Days per week: Not on file Minutes per session: Not on file Stress: Not on file Relationships Social connections Talks on phone: Not on file Gets together: Not on file Attends confucianism service: Not on file Active member of club or organization: Not on file Attends meetings of clubs or organizations: Not on file Relationship status: Not on file Other Topics Concern Not on file Social History Narrative Not on file MEDs: Previous Medications Medication Sig ibuprofen (ADVIL,MOTRIN) 400 MG tablet Take 400 mg by mouth every 6 (six) hours as needed for pain. ondansetron (ZOFRAN) 4 MG tablet Take 1 (one) tablet (4 mg total) by mouth every 8 (eight) hours as needed for nausea . ALL: No Known Allergies ROS: Review of Systems Constitutional: Negative for activity change, appetite change and fever. HENT: Negative for congestion and rhinorrhea. Eyes: Negative for photophobia, pain, redness and visual disturbance. Respiratory: Negative for apnea, chest tightness, shortness of breath and wheezing. Cardiovascular: Negative for chest pain and palpitations. Gastrointestinal: Positive for abdominal pain, nausea and vomiting. Negative for constipation and diarrhea. Genitourinary: Negative for difficulty urinating and hematuria. Musculoskeletal: Negative for arthralgias and myalgias. Skin: Negative for color change and rash. Allergic/Immunologic: Negative for environmental allergies and food allergies. Neurological: Negative for dizziness, syncope, light-headedness, numbness and headaches. Psychiatric/Behavioral: Negative for behavioral problems and confusion. Positives and pertinent negatives as per HPI. All other systems were reviewed and are negative. Physical Exam: Patient Vitals for the past 24 hrs: BP Temp Temp src Pulse Resp SpO2 Weight 12/03/19 0600 (!) 152/100 90 12/03/19 0545 (!) 149/103 86 12/03/19 0430 (!) 146/88 68 100 % 12/03/19 0245 71 100 % 12/03/19 0231 (!) 151/100 99.4 F (37.4 C) Oral 69 (!) 20 100 % 77.1 kg (170 lb) Physical Exam Constitutional: General: He is not in acute distress. Appearance: He is ill-appearing (Patient is ill-appearing, but in no acute distress.). He is not diaphoretic. HENT: Head: Normocephalic and atraumatic. Right Ear: External ear normal. Left Ear: External ear normal. Eyes: General: No scleral icterus. Neck: Vascular: No JVD. Trachea: No tracheal deviation. Cardiovascular: Rate and Rhythm: Normal rate and regular rhythm. Pulses: Normal pulses. Heart sounds: Normal heart sounds. No murmur. No friction rub. No gallop. Pulmonary: Effort: Pulmonary effort is normal. No respiratory distress. Breath sounds: Normal breath sounds. No wheezing or rales. Chest: Chest wall: No tenderness. Abdominal: General: There is no distension. Palpations: Abdomen is soft. There is no mass. Tenderness: There is abdominal tenderness in the epigastric area. There is no right CVA tenderness, left CVA tenderness or rebound. Negative signs include Coleman's sign. Musculoskeletal: General: No deformity. Skin: General: Skin is warm and dry. Neurological: General: No focal deficit present. Mental Status: He is alert and oriented to person, place, and time. Psychiatric: Mood and Affect: Mood normal. Behavior: Behavior normal. Laboratory & Radiological Imaging (if done): Labs Reviewed COMPREHENSIVE METABOLIC PANEL - Abnormal; Notable for the following components: Result Value Glucose 112 (*) BUN 5 (*) BUN/Creatinine Ratio 4.9 (*) Total Protein 8.8 (*) All other components within normal limits Narrative: The eGFR should be used for monitoring renal function only and not for medication dosing. URINALYSIS - Abnormal; Notable for the following components: Specific [place] 1.029 (*) pH, Urine 9.0 (*) Protein, Urine 30 (*) Ketones, Urine Trace (*) All other components within normal limits Narrative: Microscopic examination is performed on all urinalysis samples and only positive findings are reported. The test for blood on the chemical analytic portion of urinalysis may also be positive due to hemoglobinuria and myoglobinuria and if red blood cells are present they are quantified by microscopic examination. DRUGS OF ABUSE SCREEN, URINE - Abnormal; Notable for the following components: Cannabinoid Screen, Urine Presumptive Positive (*) Opiate Screen, Urine Presumptive Positive (*) All other components within normal limits Narrative: Screen results should be used for treatment purposes only. Specimen will be kept for 1 week, if the sample is adequate. Confirmation testing can be initiated by calling the lab within 1 week. CBC WITH AUTO DIFFERENTIAL - Abnormal; Notable for the following components: WBC 12.64 (*) MPV 8.6 (*) Neutrophils Abs 10.65 (*) All other components within normal limits COVID-19, MOLECULAR - Normal LIPASE - Normal ALCOHOL, MEDICAL - Normal CBC AND DIFFERENTIAL Narrative: The following orders were created for panel order CBC and Differential. Procedure Abnormality Status --------- ------ CBC Auto Differential[[id number]] Abnormal Final result Please view results for these tests on the individual orders. CT Abdomen Pelvis With IV Contrast Only Final Result 1. No acute abdominal or pelvic inflammatory process. 2. Trace pelvic free fluid of uncertain significance. No fluid collection. 3. Normal appendix and no adenopathy. [employer] Workstation ID: [id number] Procedures: Procedures ED Course / Medical Decision Making: This is a 34-year-old male, presented today for evaluation of nausea, vomiting, abdominal pain. He is not been able stop vomiting, and has been having a lot of emesis here in the emergency department. His electrolytes are largely unremarkable, however, he does have a Leukocytosis to 12.64. He has no anemia that is noted on a CBC. Patient's urine drug screen is positive for cannabinoids. CT scan revealed no acute intra abdominal or pelvic inflammatory process. Patient received some IV fluids, and also Zofran. This did not seem to help him much, so we also gave him Reglan. The patient continues to have nausea and vomiting, and states that he is not able to keep anything down. Nursing staff continues to see evidence of continued emesis. We discussed the results of the work up in the emergency department. Given that the patient is not able to tolerate p.o. intake, he will need to be admitted for IV hydration. Given his use of cabinets, cannabinol hyperemesis syndrome is well within the differential, as is probably gastroenteritis. I spoke with Dr. Gupta, of hospital medicine service, and he is in agreement admitting the patient to his observation unit. Clinical Impression: 1. Intractable nausea and vomiting Disposition: hospitalize to Observation Unit (CDU/OBS) Charlie Johnson M.D. Attending Physician [facility] 12/03/2019 Portions of this note may have been dictated utilizing voice recognition software. Unfortunately this leads to occasional typographical errors. If questions arise please do not hesitate to contact my office for clarification. (Please note that portions of this note have been completed with a voice recognition software. Efforts were made to correct any errors, but occasionally words are mis-transcribed.) Charlie Johnson MD 12/03/19 0648 PT REPORTS, ABDOMINAL PAIN, NAUSEA, VOMITING SINCE 04:00. PT DENIES ANY OTHER SX, DENIES BEING AROUND ANY POSITIVE COVID FAMILY OR FRIENDS TO HIS KNOWLEDGE. documented in this encounter ED Attestation Note - Jaquan Owusu MD - 11/18/2019 4:47 AM EDTQuick Note - Fawn Thomas - 12/04/2019 11:07 AM EDTPlan of Care - Suellen Church RN - 12/03/2019 7:56 AM EDT Miscellaneous Notes (unrecog nized section and content) ED Attestation: I was personally available for consult in the emergency department. I have reviewed the chart and agree with the documentation as recorded by the MARYELLEN (Advanced Practice Provider), including the assessment, treatment plan, and disposition documented in this encounter Offered pt the PCP lists and he was not interested / BLP 12.04.19 POC initiated documented in this encounter Taz Cuellar MD - 12/03/2019 8:01 AM EDT H&P Notes (unrecognized sect ion and content) [facility] Inpatient H&P 12/03/2019 Taz Cuellar MD [facility] Patient: Mayito Forbes Date of : 1985 (34 y.o.) PCP: Physician No Assessment Mayito Forbes 34 y.o. male presents with abdominal pain nausea vomiting Active Problems: Hyperemesis Plan: Admit to observation. Possibility of cannabinoid hyperemesis syndrome versus gastroenteritis. IV fluids, Protonix. CT abdomen pelvis reviewed, no acute abnormalities. Lipase normal. Repeat labs tomorrow. Clear liquid diet for now if able to tolerate. Full code. SUBJECTIVE: Chief Complaint: Nausea vomiting History of Presenting Illness: This is a 34-year-old male who presents with complaints of epigastric abdominal pain since 4 AM this morning associated with nausea vomiting unable to keep anything down. He reports feeling very fatigue and is not able to eat anything. Denies any associated diarrhea. No recent fevers chills. Denies any chest pain palpitations lightheadedness. U tox is positive for marijuana and opiates. CT abdomen pelvis negative for any acute abnormalities. He was treated with IV Zofran in the ED with some fluids without any relief. Given his not able to keep anything down he will be admitted for IV fluids and antiemetics. Review of Systems: 10 systems reviewed and negative other than noted in HPI History: History reviewed. No pertinent past medical history. Past Surgical History: Procedure Laterality Date MANDIBLE FRACTURE SURGERY 06/26/2011 History reviewed. No pertinent family history. Social History Tobacco Use Smoking Status Current Every Day Smoker Packs/day: 0.50 Years: 10.00 Pack years: 5.00 Smokeless Tobacco Never Used Social History Substance and Sexual Activity Alcohol Use Never Frequency: Never Smokes marijuana every other day. Allergies: Patient has no known allergies. Home Medications: Outpatient Medications as of 12/03/2019 Medication Sig ibuprofen (ADVIL,MOTRIN) 400 MG tablet Take 400 mg by mouth every 6 (six) hours as needed for pain. ondansetron (ZOFRAN) 4 MG tablet Take 1 (one) tablet (4 mg total) by mouth every 8 (eight) hours as needed for nausea . OBJECTIVE: Physical Examination: BP (!) 148/98 Pulse 60 Temp 100 F (37.8 C) (Oral) Resp 18 Ht 5' 6 Wt 77.1 kg (169 lb 15.6 oz) SpO2 100% BMI 27.43 kg/m General Appearance: Alert, well appearing, and in no acute distress. HEENT: Head - Normocephalic, atraumatic. Eyes - GAVINO bilaterally and EOMI. Ears - normal external appearance, hearing intact. Nose - normal, no erythema. Throat - mucous membranes moist, pharynx without lesions. Neck: Supple, trachea midline. Cardiovascular: S1, S2 normal. No murmurs, rubs, clicks or gallops appreciated. No pedal edema. Respiratory: Lungs clear to auscultation, no wheezes, rales or rhonchi heard. Abdomen: Minimal epigastric tenderness otherwise bowel sounds active no rebound no rigidity. Neurological: Grossly normal motor and sensory exam. No focal deficits. Musculoskeletal: No joint tenderness, deformity or swelling. Skin: Normal coloration and turgor. No rashes. Psych: Alert, oriented x 3. Normal mood and affect. Laboratory and Additional Data Reviewed: Results/Medications Reviewed 12/03/19 8:01 AM: Results from last 7 days Lab Units 12/03/19 0240 SODIUM mmol/L 142 POTASSIUM mmol/L 4.1 CHLORIDE mmol/L 104 BUN mg/dL 5* CREATININE mg/dL 1.03 GLUCOSE mg/dL 112* CALCIUM mg/dL 9.6 Results from last 7 days Lab Units 12/03/19 0240 WBC K/mcL 12.64* HGB g/dL 17.0 HCT % 49.3 PLT K/mcL 391 Results from last 7 days Lab Units 12/03/19 0240 ALK PHOS U/L 112 BILIRUBIN TOTAL mg/dL 0.8 TOTAL PROTEIN g/dL 8.8* ALTR U/L 26 AST U/L 28 CULTURES: Reviewed 8:01 AM IMAGING: Reviewed 8:01 AM documented in this encounter Care Teams (unrecognized sec tion and content) Supervisor Production Department Relationship Specialty Start Date End Date No, Physician [facility] PCP - General 11/17/19 Marc Juan MD [address] [place] [phone] Consulting Physician Addiction Medicine 07/22/21 Supervisor Production Department Relationship Specialty Start Date End Date Soco Paige CNP [address] [place] [phone] PCP - General Nurse Practitioner 07/22/21 Marc Juan MD [address] [place] [phone] Consulting Physician Addiction Medicine 07/22/21 Supervisor Production Department Relationship Specialty Start Date End Date Minerva Grier, [employer]OT[employer] MECHANIC [address] [address] PCP - General Nurse Practitioner - Psych/Mental Health 09/26/18 Supervisor Production Department Relationship Specialty Start Date End Date Minerva Grier, MONOTYPE MECHANIC [address] [place] [address] PCP - General Nurse Practitioner - Psych/Mental Health 09/26/18 Supervisor Production Department Relationship Specialty Start Date End Date Soco Paige [employer] MECHANIC [address] [place] [phone] PCP - General Nurse Practitioner 07/22/21 Marc Juan MD [address] [place] [phone] Consulting Physician Addiction Medicine 07/22/21 Supervisor Production Department Relationship Specialty Start Date End Date Soco Paige [employer] MECH[employer]IC [address] [place] [phone] PCP - General Nurse Practitioner 07/22/21 Marc Juan MD [address] [facility] [address] [place] [phone] Consulting Physician Addiction Medicine 07/22/21 Supervisor Production Department Relationship Specialty Start Date End Date Soco Paige CNP [address] [place] [phone] PCP - General Nurse Practitioner 07/22/21 Marc Juan MD [address] [facility] [address] [place] [phone] Consulting Physician Addiction Medicine 07/22/21 Supervisor Production Department Relationship Specialty Start Date End Date Soco Paige CNP [address] [place] [phone] PCP - General Nurse Practitioner 07/22/21 Marc Juan MD [address] [facility] [address] [place] [id number] Consulting Physician Addiction Medicine 07/22/21 Supervisor Production Department Relationship Specialty Start Date End Date Minerva Grier, MONOTYPE MECHANIC [address] [place] [phone] PCP - General Nurse Practitioner - Psych/Mental Health 09/26/18 Supervisor Production Department Relationship Specialty Start Date End Date Sooc Paige CNP [address] [place] [id number] PCP - General Nurse Practitioner 07/22/21 Marc Juan MD [address] [facility] [address] [place] [phone] Consulting Physician Addiction Medicine 07/22/21 Supervisor Production Department Relationship Specialty Start Date End Date Paige SocoNOE [address] [place] [phone] PCP - General Nurse Practitioner 07/22/21 Marc Juan MD [facility] Trenton Camacho [address] [place] [id number] Consulting Physician Addiction Medicine 07/22/21 Team Status: Active Member Role Status Dates No Primary Care Physician Primary Care Provider Active Team Status: Inactive Member Role Status Dates No Primary Care Physician Primary Care Provider, Refer ring Provider Active Lamberto SOLORIO PA Attending Provider Active Team Status: Inactive Member Role Status Dates No Primary Care Physician Primary Care Provider Active Lamberto SOLORIO PA Attending Provider, Referring Provi helene Active Supervisor Production Department Relationship Specialty Start Date End Date [facility] [address] [place] [address] PCP - General 05/28/23 Supervisor Production Department Relationship Specialty Start Date End Date [facility] [address] [place] [address] PCP - General 05/28/23 Supervisor Production Department Relationship Specialty Start Date End Date [facility] [address] [place] [address] PCP - General 05/28/23 Supervisor Production Department Relationship Specialty Start Date End Date [facility] [address] [place] [address] PCP - General 05/28/23 Supervisor Production Department Relationship Specialty Start Date [place] [address] PCP - General Family Medicine 11/01/23 Supervisor Production Department Relationship Specialty Start Date [place] [address] PCP - General Family Medicine 11/01/23 Supervisor Production Department Relationship Specialty Start Date [place] [address] PCP - General Family Medicine 11/01/23 Supervisor Production Department Relationship Specialty Start Date End Date John Andrews MD [address] [place] [address], [place] [address] PCP - General Family Medicine 11/01/23 Team Status: Active Member Role Status Dates Natasha Luciano Primary Care Provider Active Team Status: Inactive Member Role Status Dates Dr. Chemo Dunlap DO Emergency Provider Activ e Start: September 01, 2024 End: September 01, 2024 Natasha Arthur NP, Mustapha Primary Care Provider Acti ve Start: September 01, 2024 End: September 01, 2024 Team Status: Inactive Member Role Status Dates Mustapha Dominguez NP Primary Care Provider Acti ve Start: September 03, 2024 End: September 03, 2024 Dr. Alexsander Mckenna , Emergency Provider Active Start: September 03, 2024 End: September 03, 2024 Scheduled Active and Recently Administ ered Medications (unrecognized section and content) Medication Order 08/17/2021 08/18/2021 08/19/2021 ceFAZolin (ANCEF) 2 g in dextrose 100 mL premix IVPB (COMPLETED) 2 g, Intravenous, Administer over 30 Minutes, ONCE, 1 dose, On Tue08/19/21 at 0745, Pre-op/Pre-Proc 1243 (Given - Provid er: DAVID Kirby) lidocaine / epinephrine / sodium bicarbonate hand block 10 mL (COMPLETED) 10 mL, Intradermal, PRE-OP, 1 dose, On Tue08/19/21 at 0745, Pre-op/Pre-Proc 0745 (Due)1249 (Give n - Provider: Susan Ca MD) Continuous Medication Order 08/17/2021 08/18/2021 08/19/2021 lactated ringers IV solution Intravenous, at 20 mL/hr, CONTINUOUS, Starting on Tue08/19/21 at 0745, Until Tue08/19/21 at 1629, Pre-op/Pre-Proc 1232 ($$New Bag$$ - Provider: Mary F Alexus, ENTREPRENEURSHIP PROGRAM DIRECTOR-CLAMP TRUCK DRIVER)1322 (Anesthesia Volume Adjustment - Provider: Rosa Elena Aceves APRN-CLAMP TRUCK DRIVER) PRN Medication Order 08/17/2021 08/18/2021 08/19/2021 bacitracin ointment (CANCELED) NEEDED, Starting on Tue08/19/21 at 1259, Until Tue08/19/21 at 1328, Intra-op/Intra-Proc 1259 (Given - Provid er: Susan Ca MD - Comment: administered to sterile field) fentaNYL (SUBLIMAZE) injection 50 mcg 50 mcg, Intravenous, Administer over 2 Minutes, EVERY 10 MINUTES NEEDED, 4 doses, Starting on Tue08/19/21 at 1328, Until Tue08/19/21 at 1629, Moderate Pain, Recovery hydroCODone-acetaminophen (NORCO) 5-325 MG per tablet 1 tablet 1 tablet, Oral, EVERY 4 HOURS NEEDED, Starting on Tue08/19/21 at 1328, Until Tue08/19/21 at 1629, Moderate Pain, Maximum dose of acetaminophen is 4000 mg from all sources in 24 hours., Recovery lidocaine 1% buffered in sodium bicarbonate 1-8.4 % injection SOSY 1 mL 1 mL, Intradermal, NEEDED, Starting on Tue08/19/21 at 0744, Until Tue08/19/21 at 1629, Other, for peripheral IV insertion, For peripheral IV insertion, Pre-op/Pre-Proc promethazine (PHENERGAN) injection 2.5 mg 2.5 mg, Intravenous, EVERY 15 MINUTES NEEDED, 3 doses, Starting on Tue08/19/21 at 1328, Until Tue08/19/21 at 1629, Nausea / Vomiting, Refractory Nausea Vomiting, FIRST line antiemetic, Do not administer within 6 hours of intra-operative dose. Extravasation Risk. If given via IV route: dilute dose with 10mL normal saline and inject through a running IV or line over 5 minutes OR if no active IV or line is saline-dwelled dilute dose with 20mL normal saline and administer over 5 minutes. AVOID Intra-arterial administration; necrosis & gangrene have resulted. Hand, wrist or foot veins SHOULD BE AVOIDED., Recovery Scheduled Medication Order 09/28/2021 09/29/2021 09/30/2021 buprenorphine-nalOXone (SUBOXONE) 2-0.5 mg sublingual film 2 mg of buprenorphine (COMPLETED) 2 mg of buprenorphine, Sublingual, Every 1 hour, First dose (after last modification) on Tue09/28/21 at 1900, For 2 doses, Place one film under tongue until dissolves. If needed, a second film may be placed under tongue on the opposite side from the first film (minimize overlapping). Do not move film after placement. If a third film is needed, wait until the first 2 films have dissolved. Splitting a film in half may be clinically appropriate. Hold second dose if withdraw from first Verify patient has received Patient Med Guide for Suboxone., Indication: Treatment of opioid dependence, Is this a continuation of home therapy? Yes 1847 (Given - Provider: Jamil Rock RN)2022 (Given - Provider: Tea Loera RN) buprenorphine-nalOXone (SUBOXONE) 2-0.5 mg sublingual film 4 mg of buprenorphine 4 mg of buprenorphine, Sublingual, 2 times daily, First dose on Tue09/28/21 at 2100, Place one film under tongue until dissolves. If needed, a second film may be placed under tongue on the opposite side from the first film (minimize overlapping). Do not move film after placement. If a third film is needed, wait until the first 2 films have dissolved. Splitting a film in half may be clinically appropriate. Verify patient has received Patient Med Guide for Suboxone., Indication: Treatment of opioid dependence, Is this a continuation of home therapy? Yes 2216 (Given - Provider: Tea Loera RN) 09 (Given - Provider: Jamil Rock RN)2100 (Given - Provider: Fadi Shen LPN) 08 (Given - Provider: Jamil Rock, KIMMY) cefTRIAXone (ROCEPHIN) 1000 mg in sodium chloride (NS) 0.9% 50 mL MBP 1,000 mg, Intravenous, at 100 mL/hr, Every 24 hours, First dose on Tue09/27/21 at 1300, Indication: Other (specify), Indication: colitis 1207 (New Bag - Provider: Jamil Rock, KIMMY) 1401 (New Bag - Provider: Jamil Rock, RN) enoxaparin (LOVENOX) syringe 40 mg 40 mg, Subcutaneous, Daily, First dose on Tue09/27/21 at 0900, Administer in abdomen unless otherwise directed by prescriber. Notify physician if patient refuses., Indication: VTE Prophylaxis 0925 (Given - Provider: Jamil Rock RN) 0900 (Not Given - Provider: Jamil Rock RN - Reason: Patient/family refused) 0900 (Not Given - Provider: Jamil Rock RN - Reason: Patient/family refused) metroNIDAZOLE (FLAGYL) IVPB 500 mg 500 mg, Intravenous, at 200 mL/hr, Every 8 hours, First dose on Tue09/27/21 at 1300, DO NOT REFRIGERATE, Indication: Intra-abdominal Infection 0528 (New Bag - Provider: Nancy Rogers RN)1308 (New Bag - Provider: Jamil Rock RN)1338 (Stopped - Provider: Tea Loera RN)2220 (New Bag - Provider: Tea Loera RN)2250 (Paused - Provider: Tea Loera RN)2251 (Paused - Provider: Tea Loera RN)2251 (Paused - Provider: Tea Loera RN)2252 (Restarted - Provider: Tea Loera RN)2252 (Stopped - Provider: Tea Loera RN)2253 (Stopped - Provider: Tea Loera RN)2253 (Stopped - Provider: Tea Loera RN) 0534 (New Bag - Provider: Tea Loera RN)0604 (Rate/Dose Change - Provider: Tea Loera RN)0626 (Stopped - Provider: Tea Loera RN)1316 (New Bag - Provider: Jamil Rock RN)1316 (Paused - Provider: Jamil Rock RN)1317 (Restarted - Provider: Jamil Rock RN)1347 (Rate/Dose Change - Provider: Jmail Rock RN)1352 (Rate/Dose Change - Provider: Jamil Rock RN)1355 (Rate/Dose Change - Provider: Jamil Rock RN)1358 (Stopped - Provider: Jamil Rock RN)212 (New Bag - Provider: Fadi Shen LPN)2123 (Paused - Provider: Fadi Shen LPN)2124 (Restarted - Provider: Fadi Shen LPN)2154 (Stopped - Provider: Fadi Shen LPN) 0518 (New Bag - Provider: Fadi Shen LPN)0548 (Stopped - Provider: Fadi Shen LPN) N-acetylcysteine (NAC) capsule 600 mg 600 mg, Oral, 2 times daily, First dose on Tue09/28/21 at 2100, Ordering of this medication is restricted. Please select which of the following applies: Initiation of therapy, Provider type: I am an Addiction Medicine Provider 2208 (Not Given - Provider: Tea Loera RN - Reason: Other - Comment: pt nauseous and cannot take PO medications) 09 (Given - Provider: Jamil Rock RN)210 (Given - Provider: Fadi Shen LPN) 0824 (Given - Provider: Jamil Rock RN) nicotine (NICODERM CQ) 14 mg/24 hr 1 patch 1 patch, Transdermal, Administer over 24 Hours, Daily, First dose on Tue09/27/21 at 0900, U/P Listed Hazardous Drug. Waste Must Be Disposed in [employer] Waste Container 0924 (Patch Applied - Provider: Jamil Rock RN)0925 (Patch Removed - Provider: Jamil Rock RN) 0900 (Patch Applied - Provider: Jamil Rock RN)0904 (Patch Removed - Provider: Jamil Rock RN) 0824 (Patch Removed - Provider: Jamil Rock RN)0900 (Patch Applied - Provider: Jamil Rock RN)1129 (Due: Patch Removed - Provider: Discharge Provider, Automatic - Comment: Time automatically adjusted from order being discontinued) potassium chloride 20 mEq in 100 mL IVPB () 20 mEq, Intravenous, at 50 mL/hr, Every 2 hours, First dose on Tue09/28/21 at 1900, For 2 doses, For Non-Critical Care Patient give potassium chloride (KCL) 20 mEq IVPB x 2 bags over 2 hours each for a total dose of 40 mEq VESICANT 185 (New Bag - Provider: Jamil Rock RN)2050 (Paused - Provider: Tea Loera RN)2210 (Restarted - Provider: Tea Loera RN)2211 (Not Given - Provider: Tea Loera RN - Reason: Other - Comment: pt could not tolerate)2255 (Canceled Entry - Provider: Tea Loera RN)2255 (Paused - Provider: Tea Loera RN)2255 (Canceled Entry - Provider: Tea Loera RN)225 (Stopped - Provider: Tea Loera RN)225 (Stopped - Provider: Tea Loera RN) sodium chloride (PF) (NS) flush 5 mL(Linked Group 1) 5 mL, Intravenous, Every 8 hours scheduled, First dose on 09/27/21 at 0600, Saline lock 0600 (Not Given - Provider: Nancy Rogers RN - Reason: Other)1400 (Not Given - Provider: Jamil Rock RN - Reason: Other - Comment: site in use)2209 (Given - Provider: Tea Loera RN) 0600 (Not Given - Provider: Tea Loera RN - Reason: Other - Comment: ivf infusing)1314 (Given - Provider: Jamil Rock RN)2125 (Given - Provider: Fadi Shen LPN) 0516 (Given - Provider: Fadi Shen LPN) Continuous Medication Order 09/28/2021 09/29/2021 09/30/2021 lactated Ringers infusion (CANCELED) 125 mL/hr, Intravenous, Continuous, Starting on 09/27/21 at 0420 0023 (New Bag - Provider: aNncy Rogers RN)0853 (Rate/Dose Change - Provider: Tea Loera RN)0854 (Rate/Dose Change - Provider: Tea Loera RN)0926 (Stopped - Provider: Tea Loera RN)0926 (New Bag - Provider: Jamil Rock RN)1207 (Paused - Provider: Tea Loera RN)1237 (Restarted - Provider: Tea Loera RN)1308 (Paused - Provider: Tea Loera RN)1338 (Restarted - Provider: Tea Loera RN)1826 (Rate/Dose Change - Provider: Tea Loera RN)1847 (Stopped - Provider: Tea Loera RN)1850 (New Bag - Provider: Jamil Rock RN)1851 (Paused - Provider: Tea Loera RN)2050 (Restarted - Provider: Tea Loera RN)221 (Paused - Provider: Tea Loera RN)225 (Restarted - Provider: Tea Loera RN)225 (Paused - Provider: Tea Loera RN)225 (Paused - Provider: Tea Loera RN)225 (Paused - Provider: Tea Loera RN)225 (Paused - Provider: Tea Loera RN)225 (Paused - Provider: Tea Loera RN)225 (Restarted - Provider: Tea Loera RN)225 (Paused - Provider: Tea Loera RN)225 (Restarted - Provider: Tea Loera RN) 0324 (Paused - Provider: Tea Loera RN)0325 (Restarted - Provider: Tea Loera RN)0538 (Rate/Dose Change - Provider: Tea Loera RN)0539 (Rate/Dose Change - Provider: Tea Loera RN)0627 (Rate/Dose Verify - Provider: Tea Loera RN)0854 (Paused - Provider: Jamil Rock RN)1146 (Restarted - Provider: Jamil Rock RN)1146 (Paused - Provider: Jamil Rock RN)1400 (Restarted - Provider: Jamil Rock RN)1401 (Paused - Provider: Jamil Rock RN)1431 (Restarted - Provider: Jamil Rock RN)1742 (Rate/Dose Change - Provider: Jamil Rock RN)1748 (Stopped - Provider: Jamil Rock RN) PRN Medication Order 09/28/2021 09/29/2021 09/30/2021 acetaminophen (TYLENOL) tablet 650 mg 650 mg, Oral, Every 4 hours PRN, mild pain, fever 100.4 F or greater, headaches, Starting on 09/27/21 at 0414 1936 (Given - Provider: Jamil Rock RN) 0058 (Given - Provider: Kerline Linn RN)0524 (Given - Provider: Fadi Shen LPN) droperidoL (INAPSINE) injection 0.625 mg 0.625 mg, Intravenous, Every 6 hours PRN, nausea, vomiting, Starting on Tue09/28/21 at 1757, May cause QT interval prolongation. loperamide (IMODIUM) capsule 2 mg 2 mg, Oral, 4 times daily PRN, diarrhea, Starting on Tue09/28/21 at 1619, Do not exceed 16 MG (8 caps)/ 24 HRS 1747 (Given - Provider: Jamil Rock RN) 0904 (Given - Provider: Jamil Rock RN)1752 (Given - Provider: Jamil Rock RN) metoclopramide (REGLAN) injection 5 mg 5 mg, Intravenous, Every 6 hours PRN, heartburn, Starting on Tue09/27/21 at 1140 0036 (Given - Provider: Nancy Rogers RN)0636 (Given - Provider: Nancy Rogers RN)1307 (Given - Provider: Jamil Rock RN)1851 (Given - Provider: Jamil Rock RN) 0325 (Given - Provider: Tea Loera RN)0904 (Given - Provider: Jamil Rock, KIMMY)1752 (Given - Provider: Jamil Rock RN) 0053 (Given - Provider: Kerline Linn RN) naloxone (NARCAN) injection 0.1 mg(Linked Group 2) 0.1 mg, Intravenous, As needed, opioid reversal, For respiratory rate less than or equal to 8 per minute., Starting on Tue09/28/21 at 1747, Mix nalOXone (NARCAN) 0.4 mg (1mL) with 9 mL of Normal Saline to total 10 mL. Administer 0.1 mg (2.5mL) IV Push every 2 minutes until respiratory rate is 10 or greater. naloxone (NARCAN) injection 0.4 mg(Linked Group 2) 0.4 mg, Intravenous, As needed, opioid reversal, patient is pulseless, breathless, and unresponsive, Starting on Tue09/28/21 at 1747, Call a code first, then administer naloxone dose undiluted IV Push over 30 seconds. ondansetron (ZOFRAN) injection 4 mg(Linked Group 3) 4 mg, Intravenous, Every 6 hours PRN, nausea, vomiting, Starting on 09/27/21 at 0414, Use oral route first, if tolerated. 0321 (Given - Provider: Nancy Rogers RN)0925 (Given - Provider: Jamil Rock RN)1600 (Given - Provider: Jamil Rock RN)2209 (Given - Provider: Tea Loera RN) 0532 (Given - Provider: Tea Loera RN)1314 (Given - Provider: Jamil Rock RN)1936 (Given - Provider: Jamil Rock RN) 0824 (Given - Provider: Jamil Rock RN) ondansetron (ZOFRAN-ODT) disintegrating tablet 4 mg(Linked Group 3) 4 mg, Oral, Every 6 hours PRN, nausea, vomiting, Starting on 09/27/21 at 0414, Use oral route first, if tolerated. Formulation requires tablet remain in sealed package until immediately prior to dose being administered. 0321 (See Alternative - Provider: Nancy Rogers RN)0925 (See Alternative - Provider: Jamil Rock RN)1600 (See Alternative - Provider: Jamil Rock RN)2209 (See Alternative - Provider: Tea Loera RN) 0532 (See Alternative - Provider: Tea Loera RN)1314 (See Alternative - Provider: Jamil Rock RN)1936 (See Alternative - Provider: Jamil Rock RN) 0824 (See Alternative - Provider: Jamil Rock RN) sodium chloride (PF) (NS) flush 5 mL(Linked Group 1) 5 mL, Intravenous, As needed, line care, Starting on 09/27/21 at 0411 sodium chloride 0.9% (NS)(Linked Group 1) 0-150 mL/hr, Intravenous, As needed, To flush line after IV infusions when no maintenance IV ordered or a compatibility issue. Infuse 20ml at the same rate as the secondary infusion, Starting on 09/27/21 at 0411, Run as Primary IV. NOT intended for KVO. Linked Groups Order Group 1: Saline lock IV (CANCELED) Routine, Continuous, Starting on 09/27/21 at 0412, Until Specified And sodium chloride (PF) (NS) flush 5 mLJump to med 5 mL, Intravenous, As needed, line care, Starting on Tue09/27/21 at 0411 And sodium chloride (PF) (NS) flush 5 mLJump to med 5 mL, Intravenous, Every 8 hours scheduled, First dose on Tue09/27/21 at 0600
Saline lock
And sodium chloride 0.9% (NS)Jump to med 0-150 mL/hr, Intravenous, As needed, To flush line after IV infusions when no maintenance IV ordered or a compatibility issue. Infuse 20ml at the same rate as the secondary infusion, Starting on Tue09/27/21 at 0411
Run as Primary IV. NOT intended for KVO.
Group 2: naloxone (NARCAN) injection 0.1 mgJump to med 0.1 mg, Intravenous, As needed, opioid reversal, For respiratory rate less than or equal to 8 per minute., Starting on Tue09/28/21 at 1747
Mix nalOXone (NARCAN) 0.4 mg (1mL) with 9 mL of Normal Saline to total 10 mL. Administer 0.1 mg (2.5mL) IV Push every 2 minutes until respiratory rate is 10 or greater.
And Notify physician (CANCELED) STAT, Until discontinued, Starting on Tue09/28/21 at 1748, Until Specified
Respiratory rate less than: 8
For respiratory rate less than or equal to 8, notify physician and/or appropriate staff for additional orders. And naloxone (NARCAN) injection 0.4 mgJump to med 0.4 mg, Intravenous, As needed, opioid reversal, patient is pulseless, breathless, and unresponsive, Starting on Tue09/28/21 at 1747
Call a code first, then administer naloxone dose undiluted IV Push over 30 seconds.
Group 3: ondansetron (ZOFRAN-ODT) disintegrating tablet 4 mgJump to med 4 mg, Oral, Every 6 hours PRN, nausea, vomiting, Starting on Tue09/27/21 at 0414
Use oral route first, if tolerated. Formulation requires tablet remain in sealed package until immediately prior to dose being administered.
Or ondansetron (ZOFRAN) injection 4 mgJump to med 4 mg, Intravenous, Every 6 hours PRN, nausea, vomiting, Starting on 09/27/21 at 0414
Use oral route first, if tolerated.
Continuous Medication Order 10/05/2021 10/06/2021 10/07/2021 lactated ringers IV solution Intravenous, at 20 mL/hr, CONTINUOUS, Starting on Tue10/07/21 at 1000, Until Tue10/07/21 at 1348, Pre-op/Pre-Proc 1000 (Canceled Entry - Provider: System Discharge - Comment: Automatically canceled at discontinue of medication order) lactated ringers IV solution Intravenous, at 20 mL/hr, CONTINUOUS, Starting on Tue10/07/21 at 0930, Until Tue10/07/21 at 1348, Pre-op/Pre-Proc 0930 (Canceled Entry - Provider: System Discharge - Comment: Automatically canceled at discontinue of medication order) lactated ringers IV solution Intravenous, at 20 mL/hr, CONTINUOUS, Starting on Tue10/07/21 at 1045, Until Tue10/07/21 at 1348, Recovery 1045 (Canceled Entry - Provider: System Discharge - Comment: Automatically canceled at discontinue of medication order) PRN Medication Order 10/05/2021 10/06/2021 10/07/2021 fentaNYL (SUBLIMAZE) injection 25 mcg 25 mcg, Intravenous, Administer over 2 Minutes, EVERY 10 MINUTES NEEDED, Starting on Tue10/07/21 at 1035, Until Tue10/07/21 at 1348, Moderate Pain, Recovery fentaNYL (SUBLIMAZE) injection 25 mcg 25 mcg, Intravenous, Administer over 2 Minutes, EVERY 10 MINUTES NEEDED, 4 doses, Starting on Tue10/07/21 at 1032, Until Tue10/07/21 at 1348, Moderate Pain, Recovery haloperidol lactate (HALDOL) injection 1 mg 1 mg, Intravenous, ONCE NEEDED, 1 dose, Starting on Tue10/07/21 at 1035, Until Tue10/07/21 at 1348, Refractory Nausea/vomiting, Use if patient still experiencing nausea/vomiting after 1st and 2nd line medications. Do not administer within 6 hours of intra-operative dose., Recovery haloperidol lactate (HALDOL) injection 1 mg 1 mg, Intravenous, ONCE NEEDED, 1 dose, Starting on Tue10/07/21 at 1032, Until Tue10/07/21 at 1348, Refractory Nausea/vomiting, Use if patient still experiencing nausea/vomiting as 1st line medications for nausea unless medical contraindication. Do not administer within 6 hours of intra-operative dose., Recovery hydrALAZINE (APRESOLINE) injection 2 mg 2 mg, Intravenous, EVERY 30 MINUTES NEEDED, Starting on Tue10/07/21 at 1035, Until Tue10/07/21 at 1348, SECOND line HTN, For SBP > 170 Use if HR < 60 or if patient has reactive airway disease. Administer over 2 minutes. May give a total of 20 mg while in PACU. Notify MD if BP still uncontrolled after 2 mg and no other antihypertensive agents are ordered., Recovery HYDROmorphone (DILAUDID) injection 0.5 mg(Linked Group 1) 0.5 mg, Intravenous, EVERY 5 MINUTES NEEDED, Starting on Tue10/07/21 at 1032, Until Tue10/07/21 at 1348, Severe Pain, Use as initial dose. Higher dose may be administered if lower dose did not result in adverse effects (RR<10, decrease in level of consciousness) and was previously documented as ineffective. May give a total of 4mg in PACU., Recovery HYDROmorphone (DILAUDID) injection 1 mg(Linked Group 1) 1 mg, Intravenous, EVERY 5 MINUTES NEEDED, Starting on Tue10/07/21 at 1032, Until Tue10/07/21 at 1348, Severe Pain, Higher dose may be administered if lower dose did not result in adverse effects (RR<10, decrease in level of consciousness) and was previously documented as ineffective. Decrease back to lower dose if patient has adverse effects, or no PRN used in previous 30 minutes. May give a total of 4mg in PACU ., Recovery labetalol (NORMODYNE) injection 5 mg 5 mg, Intravenous, EVERY 15 MINUTES NEEDED, Starting on Tue10/07/21 at 1035, Until Tue10/07/21 at 1348, FIRST line HTN. , For SBP > 170 Hold if HR < 60 or patient has reactive airway disease and give SECOND line agent. May give a total of 20 mg while in PACU. If blood pressure uncontrolled after 20mg of labetalol administered, use second line agent or notify MD. For vials: labetalol should be treated as a SINGLE USE VIAL. Discard remaining contents after one use., Recovery labetalol (NORMODYNE) injection 5 mg 5 mg, Intravenous, EVERY 15 MINUTES NEEDED, Starting on Tue10/07/21 at 1032, Until Tue10/07/21 at 1348, FIRST line HTN. , For SBP > 170 Hold if HR < 60 and give SECOND line agent. May give a total of 20 mg while in PACU. If blood pressure uncontrolled after 20mg of labetalol administered, use second line agent or notifольга NEGRETE. For vials: labetalol should be treated as a SINGLE USE VIAL. Discard remaining contents after one use., Recovery lidocaine / epinephrine / sodium bicarbonate hand block (CANCELED) NEEDED, Starting on Tue10/07/21 at 1010, Until Tue10/07/21 at 1035, Intra-op/Intra-Proc 1010 (Given - Provid er: Susan Ca MD) lidocaine 1% buffered in sodium bicarbonate 1-8.4 % injection SOSY 1 mL 1 mL, Intradermal, NEEDED, Starting on Tue10/07/21 at 0959, Until Tue10/07/21 at 1348, Other, for peripheral IV insertion, For peripheral IV insertion, Pre-op/Pre-Proc lidocaine 1% buffered in sodium bicarbonate 1-8.4 % injection SOSY 1 mL 1 mL, Intradermal, NEEDED, Starting on Tue10/07/21 at 0929, Until Tue10/07/21 at 1348, Other, for peripheral IV insertion, For peripheral IV insertion, Pre-op/Pre-Proc meperidine (DEMEROL) injection 12.5 mg 12.5 mg, Intravenous, EVERY 30 MINUTES NEEDED, 2 doses, Starting on Tue10/07/21 at 1032, Until Tue10/07/21 at 1348, shakes, May give total of 2 doses while in PACU. Keep respiratory rate greater than 10., Recovery ondansetron 4mg/2ml (ZOFRAN) injection 4 mg 4 mg, Intravenous, ONCE NEEDED, 1 dose, Starting on Tue10/07/21 at 1035, Until Tue10/07/21 at 1348, Nausea / Vomiting, FIRST line antiemetic, Do not administer within 6 hours of intra-operative dose., Recovery oxyCODONE (ROXICODONE) tablet 10 mg(Linked Group 2) 10 mg, Oral, EVERY 4 HOURS NEEDED, Starting on Tue10/07/21 at 1035, Until Tue10/07/21 at 1348, Moderate Pain, Severe Pain, Higher dose may be administered if lower dose was previously documented as ineffective and did not result in adverse effects (RR<10, negative change in RASS of 2 or more). Decrease back to lower dose if patient has adverse effects or no PRN use in previous 12 hours. Hold for sedation., Recovery oxyCODONE (ROXICODONE) tablet 10 mg(Linked Group 3) 10 mg, Oral, EVERY 4 HOURS NEEDED, Starting on Tue10/07/21 at 1035, Until Tue10/07/21 at 1348, Moderate Pain, Severe Pain, Higher dose may be administered if lower dose was previously documented as ineffective and did not result in adverse effects (RR<10, negative change in RASS of 2 or more). Decrease back to lower dose if patient has adverse effects or no PRN use in previous 12 hours. Hold for sedation., Recovery oxyCODONE (ROXICODONE) tablet 10 mg 10 mg, Oral, ONCE NEEDED, 1 dose, Starting on Tue10/07/21 at 1032, Until Tue10/07/21 at 1348, Severe Pain, for d/c pain, Recovery oxyCODONE (ROXICODONE) tablet 5 mg(Linked Group 2) 5 mg, Oral, EVERY 4 HOURS NEEDED, Starting on Tue10/07/21 at 1035, Until Tue10/07/21 at 1348, Moderate Pain, Severe Pain, Use as initial dose. Higher dose may be administered if lower dose was previously documented as ineffective and did not result in adverse effects (RR<10, negative change in RASS of 2 or more)., Recovery oxyCODONE (ROXICODONE) tablet 5 mg(Linked Group 3) 5 mg, Oral, EVERY 4 HOURS NEEDED, Starting on Tue10/07/21 at 1035, Until Tue10/07/21 at 1348, Moderate Pain, Severe Pain, Use as initial dose. Higher dose may be administered if lower dose was previously documented as ineffective and did not result in adverse effects (RR<10, negative change in RASS of 2 or more)., Recovery oxyCODONE (ROXICODONE) tablet 5 mg 5 mg, Oral, EVERY 10 MINUTES NEEDED, 2 doses, Starting on Tue10/07/21 at 1032, Until Tue10/07/21 at 1348, Moderate Pain, for d/c pain, Recovery promethazine (PHENERGAN) injection 6.25 mg 6.25 mg, Intravenous, EVERY 1 HOUR NEEDED, 2 doses, Starting on Tue10/07/21 at 1032, Until Tue10/07/21 at 1348, Nausea / Vomiting, SECOND line antiemetic, Do not administer within 6 hours of intra-operative dose. Extravasation Risk. If given via IV route: dilute dose with 10mL normal saline and inject through a running IV or line over 5 minutes OR if no active IV or line is saline-dwelled dilute dose with 20mL normal saline and administer over 5 minutes. AVOID Intra-arterial administration; necrosis & gangrene have resulted. Hand, wrist or foot veins SHOULD BE AVOIDED., Recovery Linked Groups Order Group 1: HYDROmorphone (DILAUDID) injection 0.5 mgJump to med 0.5 mg, Intravenous, EVERY 5 MINUTES NEEDED, Starting on Tue10/07/21 at 1032, Until Tue10/07/21 at 1348, Severe Pain
Use as initial dose. Higher dose may be administered if lower dose did not result in adverse effects (RR<10, decrease in level of consciousness) and was previously documented as ineffective. May give a total of 4mg in PACU.
Recovery Or HYDROmorphone (DILAUDID) injection 1 mgJump to med 1 mg, Intravenous, EVERY 5 MINUTES NEEDED, Starting on Tue10/07/21 at 1032, Until Tue10/07/21 at 1348, Severe Pain
Higher dose may be administered if lower dose did not result in adverse effects (RR<10, decrease in level of consciousness) and was previously documented as ineffective. Decrease back to lower dose if patient has adverse effects, or no PRN used in previous 30 minutes. May give a total of 4mg in PACU .
Recovery Group 2: oxyCODONE (ROXICODONE) tablet 5 mgJump to med 5 mg, Oral, EVERY 4 HOURS NEEDED, Starting on Tue10/07/21 at 1035, Until Tue10/07/21 at 1348, Moderate Pain, Severe Pain
Use as initial dose. Higher dose may be administered if lower dose was previously documented as ineffective and did not result in adverse effects (RR<10, negative change in RASS of 2 or more).
Recovery Or oxyCODONE (ROXICODONE) tablet 10 mgJump to med 10 mg, Oral, EVERY 4 HOURS NEEDED, Starting on Tue10/07/21 at 1035, Until Tue10/07/21 at 1348, Moderate Pain, Severe Pain
Higher dose may be administered if lower dose was previously documented as ineffective and did not result in adverse effects (RR<10, negative change in RASS of 2 or more). Decrease back to lower dose if patient has adverse effects or no PRN use in previous 12 hours. Hold for sedation.
Recovery Group 3: oxyCODONE (ROXICODONE) tablet 5 mgJump to med 5 mg, Oral, EVERY 4 HOURS NEEDED, Starting on Tue10/07/21 at 1035, Until Tue10/07/21 at 1348, Moderate Pain, Severe Pain
Use as initial dose. Higher dose may be administered if lower dose was previously documented as ineffective and did not result in adverse effects (RR<10, negative change in RASS of 2 or more).
Recovery Scheduled Medication Order 05/11/2022 05/12/2022 05/13/2022 Albuterol (PROVENTIL) (2.5 MG/3ML) 0.083% inhalation solution 2.5 mg (COMPLETED) 2.5 mg, Nebulization, ONCE, 1 dose, On Tue05/13/22 at 2300, - 2236 (Given - Provid er: Shakira Neville RCP) Albuterol inhaler 2 puff (COMPLETED) 2 puff, Inhalation, ONCE, 1 dose, On Tue05/13/22 at 2215, Wait at least one(1) full minute between inhalations 2310 (Given - Provid er: Viviane Pettit RN) Azithromycin (ZITHROMAX) tablet 500 mg (COMPLETED) 500 mg, Oral, ONCE, 1 dose, On Tawny 05/13/22 at 2230 2230 (Given - Provid er: Viviane Pettit RN) Ipratropium-albuterol (DUONEB) 0.5-2.5 (3) MG/3ML nebulizer solution 3 mL (COMPLETED) 3 mL, Nebulization, ONCE, 1 dose, On Tue05/13/22 at 2200 212 (Given - Provid er: Shakira Neville RCP) Ipratropium-albuterol (DUONEB) 0.5-2.5 (3) MG/3ML nebulizer solution 3 mL (COMPLETED) 3 mL, Nebulization, ONCE, 1 dose, On Tue05/13/22 at 2200 212 (Given - Provid er: Shakira Neville RCP) predniSONE (DELTASONE) tablet 60 mg (COMPLETED) 60 mg, Oral, ONCE, 1 dose, On Tawny 05/13/22 at 2200 2230 (Given - Provid er: Viviane Pettit RN) Scheduled Medication Order 06/02/2022 06/03/2022 06/04/2022 ampicillin-sulbactam (UNASYN) 1500 mg in sodium chloride (NS) 0.9% 50 mL (vialmate) 1,500 mg, Intravenous, at 100 mL/hr, Every 8 hours, First dose on Tue06/01/22 at 0600, Indication: Aspiration Pneumonia 0607 (New Bag - Provider: Amalia Buck RN)0637 (Stopped - Provider: Charity Pickett RN)1342 (New Bag - Provider: Charity Pickett RN)2054 (New Bag - Provider: Radha Grady RN)2200 (Canceled Entry - Provider: Radha Grady RN) 0524 (New Bag - Provider: Jeremy Phelan RN)1641 (New Bag - Provider: Charity Ashley, KIMMY) 0005 (New Bag - Provider: Bernabe Christopher RN - Comment: Previous dose given late.)1047 (New Bag - Provider: Charity Ashley, KIMMY) famotidine (PEPCID) tablet 20 mg 20 mg, Oral, 2 times daily, First dose on Tue05/31/22 at 2100 0800 (Given - Provider: Charity Pickett RN)205 (Given - Provider: Radha Grady RN) 100 (Given - Provider: Charity Ashley, KIMMY)2058 (Given - Provider: Bernabe Christopher RN) 1041 (Given - Provider: Charity Ashley, KIMMY) gabapentin (NEURONTIN) capsule 300 mg (CANCELED) 300 mg, Oral, Every 12 hours scheduled, First dose on Tue06/02/22 at 1045, Capsule may be opened and contents placed down tube, flush tube with 10ml saline 1024 (Given - Provider: Charity Pickett RN) melatonin Tab 5 mg 5 mg, Oral, Nightly, First dose on Tue05/31/22 at 2100 2050 (Given - Provider: Radha Grady, KIMMY) 2058 (Given - Provider: Bernabe Christopher, KIMMY) N-acetylcysteine (NAC) capsule 1,200 mg 1,200 mg, Oral, 2 times daily, First dose on Tue05/31/22 at 2100, Ordering of this medication is restricted. Please select which of the following applies: Initiation of therapy, Provider type: I am an Addiction Medicine Provider 0800 (Given - Provider: Charity Pickett RN)2050 (Given - Provider: Radha Grady RN) 100 (Given - Provider: Charity Ashley, KIMMY)2058 (Given - Provider: Bernabe Christopher, KIMMY) 1041 (Given - Provider: Charity Ashley, KIMMY) naltrexone (DEPADE, REVIA) tablet 25 mg (COMPLETED) 25 mg, Oral, Once, On Tawny 06/03/22 at 1700, For 1 dose, Consider discontinuing Naltrexone (Depade, Revia) in patients receiving opioids due to its opioid blocking effects. PLEASE SECURE CHAT DR JUAN IF WITHDRAWAL SIGNS AFTER ADMINISTERED, [facility]: New Initiation, P&T restriction: INITIATION restricted to Behavioral Health, Pain Management, or Addiction Medicine providers. I am an Addiction Medicine provider 1640 (Given - Provider: Charity Ashley, KIMMY) naltrexone microspheres (VIVITROL) injection 380 mg (COMPLETED) 380 mg, Intramuscular, Once, On Tue06/04/22 at 0930, For 1 dose, Administer intramuscularly into the upper outer quadrant of the gluteal area; must inject dose using one of the provided needles for administration. IF TOOK ORAL OK ON 06/03/22 PM. PLEASE COORDINATE WARMING AND ADMINISTRATION WITH CHARGE NURSE FOR [facility] NURSE TO GIVE Refer to administration instructions enclosed in medication box Administer IM into the upper outer quadrant of the gluteal area using one of the provided needles for administration: 1.5-inch for very lean patients or 2-inch for patients with a larger amount of subcutaneous tissue overlying the gluteal muscle, either needle may be used for average body habitus. Do NOT administer into subcutaneous or fatty tissue, as this increases the risk of serious injection site reactions. If RN not comfortable administering injection, please call ordering provider Monitor patient for adverse effects for 10 minutes after administration, P&T restriction: INITIATION restricted to Behavioral Health, Pain Management, or Addiction Medicine providers. I am an Addiction Medicine provider, Indication: Opioid use disorder, I, the ordering provider, have confirmed that patient is appropriate for naltrexone IM administration based my clinical assessment, and no current contraindications for naltrexone. Yes 1026 (Given - Provider: Marsha Lowe RN) pantoprazole (PROTONIX) EC tablet 40 mg 40 mg, Oral, Daily, First dose on Tue05/31/22 at 0900, DO NOT CRUSH OR CHEW. 0800 (Given - Provider: Charity Pickett RN) 1001 (Given - Provider: Charity Ashley, KIMMY) 1042 (Given - Provider: Charity Ashley, KIMMY) potassium chloride 20 mEq in 100 mL IVPB (COMPLETED) 20 mEq, Intravenous, at 50 mL/hr, Every 2 hours, First dose on Tue06/02/22 at 0715, For 2 doses, 20mEq IVPB over 120 minutes x 2 (for total of 40 mEq over 4 hours) for serum Potassium in range of 3-3.4 mEq/L per Intermediate Care Electrolyte Replacement Therapy. (INTERMEDIATE CARE) ORDER repeat potassium level 4 hours after second dose has been infused. VESICANT 0756 (New Bag - Provider: Charity Pickett RN)0756 (Rate/Dose Change - Provider: Charity Pickett RN)1017 (Paused - Provider: Charity Pickett RN)1019 (Restarted - Provider: Charity Pickett RN)1026 (Rate/Dose Change - Provider: Charity Pickett RN)1027 (Stopped - Provider: Charity Pickett RN)1027 (New Bag - Provider: Charity Pickett RN)1027 (Rate/Dose Change - Provider: Charity Pickett RN)1205 (Paused - Provider: Charity Pickett RN)1205 (Restarted - Provider: Charity Pickett RN)1206 (Paused - Provider: Charity Pickett RN)1206 (Paused - Provider: Charity Pickett, KIMMY)1206 (Restarted - Provider: Charity Pickett, KIMMY)1239 (Rate/Dose Verify - Provider: Charity Pickett RN) potassium chloride SA (K-DUR,KLOR-CON) CR tablet 40 mEq (COMPLETED) 40 mEq, Oral, Every 6 hours, First dose on Tue06/02/22 at 0930, For 2 doses, DO NOT CRUSH OR CHEW (if instructed may dissolve tablet(s) in liquid) DO NOT ADMINISTER DISSOLVED TABLET VIA SURGICALLY PLACED TUBE OR TUBE less than 14 Citizen Of [place]. To administer dissolved tablet(s) mix with 4 ounces of water over 2-3 minutes, stir for 30 seconds prior to administration; rinse dosing cup and administer residual medication to ensure full dose given 1024 (Given - Provider: Charity Pickett RN)1523 (Given - Provider: Charity Pickett RN) sodium chloride (PF) (NS) flush 5 mL(Linked Group 1) 5 mL, Intravenous, Every 8 hours scheduled, First dose on Tue05/31/22 at 0600, Saline lock 0600 (Canceled Entry - Provider: Amalia Buck, KIMMY)1400 (Canceled Entry - Provider: Charity Pickett RN)2200 (Canceled Entry - Provider: Radha Grady RN) 0600 (Canceled Entry - Provider: Jeremy Phelan, KIMMY)1640 (Given - Provider: Charity Ashley, KIMMY)2200 (Given - Provider: Bernabe Christopher, KIMMY) 0600 (Given - Provider: Bernabe Christopher RN) topiramate (TOPAMAX) tablet 25 mg 25 mg, Oral, 2 times daily, First dose on Tue06/03/22 at 2100, CATEGORY D HAZARDOUS DRUG use safe handling precautions. Use reference link to view PPE guidelines. Minimize crushing/splitting only to situations where clinically necessary. Do Not Crush or Chew if administering orally due to bitter taste. 2057 (Given - Provider: Bernabe Christopher RN) 1042 (Given - Provider: Charity Ahsley, KIMMY) venlafaxine (EFFEXOR-XR) 24 hr capsule 150 mg 150 mg, Oral, Daily with breakfast, First dose on Tue06/02/22 at 1200, DO NOT CRUSH OR CHEW. 1158 (Given - Provider: Charity Pickett RN) 1001 (Given - Provider: Charity Ashley, KIMMY) 1042 (Given - Provider: Charity Ashley, RN) Continuous Medication Order 06/02/2022 06/03/2022 06/04/2022 sodium chloride 0.9% (NS) 100 mL/hr, Intravenous, Continuous, Starting on Tue05/31/22 at 0335 0047 (Rate/Dose Change - Provider: Charity Pickett RN)0048 (Rate/Dose Change - Provider: Charity Pickett RN)0233 (Rate/Dose Change - Provider: Charity Pickett RN)0234 (Rate/Dose Change - Provider: Charity Pickett RN)0235 (Rate/Dose Verify - Provider: Charity Pickett RN)0607 (Paused - Provider: Charity Pickett RN)0637 (Restarted - Provider: Charity Pickett RN)1017 (Paused - Provider: Charity Pickett RN)1019 (Restarted - Provider: Charity Pickett RN)1205 (Paused - Provider: Charity Pickett RN)1205 (Restarted - Provider: Charity Pickett RN)1205 (Stopped - Provider: Cahrity Pickett RN)1205 (New Bag - Provider: Charity Pickett RN)1206 (Paused - Provider: Charity Pickett RN)1206 (Restarted - Provider: Charity Pickett RN)1239 (Rate/Dose Verify - Provider: Charity Pickett RN)2345 (New Bag - Provider: Radha Grady RN) PRN Medication Order 06/02/2022 06/03/2022 06/04/2022 acetaminophen (TYLENOL) tablet 650 mg 650 mg, Oral, Every 4 hours PRN, mild pain, fever 100.4 F or greater, headaches, Starting on Tue05/31/22 at 0331 1043 (Given - Provid er: Charity Ashley RN) naloxone (NARCAN) 4 mg/spray nasal spray for home use 4 mg(Linked Group 2) 4 mg (1 spray), nare, Once as needed, Known or suspected opioid overdose, Starting on Tue05/30/22 at 1909, For 1 dose, Administer 1 spray into one nostril for known or suspected opioid overdose. If patient worsens or does not respond, may repeat in 2-3 minutes ondansetron (ZOFRAN) injection 4 mg(Linked Group 3) 4 mg, Intravenous, Every 6 hours PRN, nausea, vomiting, Starting on Tue05/31/22 at 0331, Use oral route first, if tolerated. 1024 (Given - Provider: Charity Pickett RN) ondansetron (ZOFRAN-ODT) disintegrating tablet 4 mg(Linked Group 3) 4 mg, Oral, Every 6 hours PRN, nausea, vomiting, Starting on Tue05/31/22 at 0331, Use oral route first, if tolerated. Formulation requires tablet remain in sealed package until immediately prior to dose being administered. 1024 (See Alternative - Provider: Charity Pickett RN) sodium chloride (PF) (NS) flush 5 mL(Linked Group 4) 5 mL, Intravenous, As needed, line care, Starting on Tue05/30/22 at 1908 sodium chloride (PF) (NS) flush 5 mL(Linked Group 1) 5 mL, Intravenous, As needed, line care, Starting on Tue05/31/22 at 0331 sodium chloride 0.9% (NS)(Linked Group 4) 0-150 mL/hr, Intravenous, As needed, To flush line after IV infusions when no maintenance IV ordered or a compatibility issue. Infuse 20ml at the same rate as the secondary infusion, Starting on Tue05/30/22 at 1908, Run as Primary IV. NOT intended for KVO. sodium chloride 0.9% (NS)(Linked Group 1) 0-150 mL/hr, Intravenous, As needed, To flush line after IV infusions when no maintenance IV ordered or a compatibility issue. Infuse 20ml at the same rate as the secondary infusion, Starting on Tue05/31/22 at 0331, Run as Primary IV. NOT intended for KVO. topiramate (TOPAMAX) tablet 50 mg 50 mg, Oral, Nightly PRN, other, insomnia, Starting on Tue05/31/22 at 1752, CATEGORY D HAZARDOUS DRUG use safe handling precautions. Use reference link to view PPE guidelines. Minimize crushing/splitting only to situations where clinically necessary. Do Not Crush or Chew if administering orally due to bitter taste. Linked Groups Order Group 1: Saline lock IV (CANCELED) Routine, Continuous, Starting on Tue05/31/22 at 0332, Until Specified And sodium chloride (PF) (NS) flush 5 mLJump to med 5 mL, Intravenous, As needed, line care, Starting on Tue05/31/22 at 0331 And sodium chloride (PF) (NS) flush 5 mLJump to med 5 mL, Intravenous, Every 8 hours scheduled, First dose on Tue05/31/22 at 0600
Saline lock
And sodium chloride 0.9% (NS)Jump to med 0-150 mL/hr, Intravenous, As needed, To flush line after IV infusions when no maintenance IV ordered or a compatibility issue. Infuse 20ml at the same rate as the secondary infusion, Starting on Tue05/31/22 at 0331
Run as Primary IV. NOT intended for KVO.
Group 2: naloxone (NARCAN) 4 mg/spray nasal spray for home use 4 mgJump to med 4 mg (1 spray), nare, Once as needed, Known or suspected opioid overdose, Starting on Tue05/30/22 at 1909, For 1 dose
Administer 1 spray into one nostril for known or suspected opioid overdose. If patient worsens or does not respond, may repeat in 2-3 minutes
And Nursing Instruct on naloxone (COMPLETED) SYLVIE, Once, On Tue05/30/22 at 1910, For 1 occurrence
Specify: Instruct on naloxone Group 3: ondansetron (ZOFRAN-ODT) disintegrating tablet 4 mgJump to med 4 mg, Oral, Every 6 hours PRN, nausea, vomiting, Starting on Tue05/31/22 at 0331
Use oral route first, if tolerated. Formulation requires tablet remain in sealed package until immediately prior to dose being administered.
Or ondansetron (ZOFRAN) injection 4 mgJump to med 4 mg, Intravenous, Every 6 hours PRN, nausea, vomiting, Starting on Tue05/31/22 at 0331
Use oral route first, if tolerated.
Group 4: Insert peripheral IV (COMPLETED) SYLVEI, Once, On Tue05/30/22 at 1909, For 1 occurrence And Saline lock IV (CANCELED) SYLVIE, Once, On Tue05/30/22 at 1909, For 1 occurrence And sodium chloride (PF) (NS) flush 5 mLJump to med 5 mL, Intravenous, As needed, line care, Starting on Tue05/30/22 at 1908 And sodium chloride 0.9% (NS)Jump to med 0-150 mL/hr, Intravenous, As needed, To flush line after IV infusions when no maintenance IV ordered or a compatibility issue. Infuse 20ml at the same rate as the secondary infusion, Starting on Tue05/30/22 at 1908
Run as Primary IV. NOT intended for KVO.
Scheduled Medication Order 02/21/2023 02/22/2023 02/23/2023 lidocaine (Xylocaine) 1 % injection 10 mL (COMPLETED) 10 mL, Infiltration, Once, On Tue02/23/23 at 1725, For 1 dose 1750 (Given - Provid er: Karina Arevalo LPN - Comment: GIVEN BY DOCTOR) Scheduled Medication Order 03/06/2023 03/07/2023 03/08/2023 acetaminophen (Tylenol) tablet 650 mg (COMPLETED) 650 mg, Oral, Once, On Tue03/08/23 at 2015, For 1 dose, Maximum dose of acetaminophen is 4000 mg from all sources in 24 hours. 2021 (Given - Provid er: Darren Don RN) lidocaine (Xylocaine) 1 % injection 10 mL (COMPLETED) 10 mL, Infiltration, Once, On Tue03/08/23 at 1920, For 1 dose 1937 (Given by Other - Provider: Darren Don RN - Reason: Administered by Other (Comment Required) - Comment: Given by Doc) Scheduled Medication Order 06/05/2023 06/06/202306/07/2023 diphenhydrAMINE (BENADryl) injection 50 mg (COMPLETED) 50 mg, IntraVENous, Once, On Tue06/06/23 at 1840, For 1 dose 2106 (Given - Provider: Adia Cash, EMT - Comment: needed US IV) nicotine (Nicoderm, Step 1) 21 MG/24HR patch 1 patch 1 patch, TransDERmal, Administer over 24 Hours, Daily, First dose on Tue06/07/23 at 1100, Apply new patch to nonhairy, clean, dry skin on the upper body or upper outer arm. Rotate patch sites. Notify Pharmacy if patient or provider prefers patch to be removed at bedtime and replaced in the morning. 1154 (Medication Maryellen lied - Provider: Jennifer Duran RN)1756 (Due: Medication Removed - Provider: Automatic Discharge Provider - Comment: Time automatically adjusted from order being discontinued) pantoprazole (ProtoNix) EC tablet 40 mg 40 mg, Oral, Daily before breakfast, First dose on Tue06/07/23 at 0700, Do not crush, chew, or split. 0632 (Given - Provid er: Meagan Obrien RN) prochlorperazine (Compazine) injection 10 mg (COMPLETED) 10 mg, IntraVENous, Once, On Tue06/06/23 at 1840, For 1 dose 190 (Given - Provider: Ursula Denney RN) sodium chloride 0.9 % bolus 1,000 mL (COMPLETED) 1,000 mL, IntraVENous, at 1,000 mL/hr, Administer over 1 Hours, Once, On Tue06/06/23 at 1840, For 1 dose 2046 (New Bag - Provider: Georgia Baker, RN - Comment: no IV access)2137 (Stopped - Provider: Meagan Obrien RN) sodium chloride 0.9 % bolus 1,000 mL (COMPLETED) 1,000 mL, IntraVENous, at 1,000 mL/hr, Administer over 1 Hours, Once, On Tue06/06/23 at 2330, For 1 dose 2330 (New Bag - Provider: Meagan Obrien RN) 0030 (Stopped - Provider: Meagan Obrien RN) sodium chloride 0.9 % bolus 1,000 mL (COMPLETED) 1,000 mL, IntraVENous, at 1,000 mL/hr, Administer over 1 Hours, Once, On Tue06/07/23 at 0030, For 1 dose 0057 (New Bag - Prov ider: Meagan Obrien RN)0148 (Stopped - Provider: Meagan Obrien RN) venlafaxine XR (Effexor XR) 24 hr capsule 225 mg 225 mg, Oral, Daily with breakfast, First dose on Tue06/07/23 at 1100, Do not crush or chew. 1154 (Given - Provid er: Jennifer Duran RN) Continuous Medication Order 06/05/2023 06/06/2023 06/07/2023 sodium chloride 0.9 % infusion 125 mL/hr, IntraVENous, Continuous, Starting on Tue06/07/23 at 0845 0851 (New Bag - Prov ider: Jennifer Duran RN) PRN Medication Order 06/05/2023 06/06/2023 06/07/2023 acetaminophen (Tylenol) suppository 650 mg(Linked Group 1) 650 mg, Rectal, Every 6 hours PRN, mild pain (1-3), fever, For temp greater than 100.4 F (38 C), Starting on Tue06/07/23 at 0840, Administer if oral route cannot be used. Maximum dose of acetaminophen is 4000 mg from all sources in 24 hours. acetaminophen (Tylenol) tablet 650 mg(Linked Group 1) 650 mg, Oral, Every 6 hours PRN, mild pain (1-3), fever, For temp greater than 100.4 F (38 C), Starting on Tue06/07/23 at 0840, Maximum dose of acetaminophen is 4000 mg from all sources in 24 hours. droperidol (Inapsine) injection 1.25 mg 1.25 mg, IntraVENous, Every 6 hours PRN, nausea, Starting on Tue06/06/23 at 2326 0051 (Given - Provid er: Meagan Obrien RN) iopamidol (Isovue-370) 76 % injection 100 mL (COMPLETED) 100 mL, IntraVENous, IMG once PRN, contrast, Starting on Tue06/06/23 at 2149, For 1 dose 2149 (Given - Provider: Rebeca Phelps, RT (R)(CT)) ondansetron ODT (Zofran-ODT) disintegrating tablet 4 mg 4 mg, Oral, Every 8 hours PRN, nausea, vomiting, Starting on Tue06/07/23 at 0051, 1st Line. If inadequate response within 60 minutes, proceed to next-line agent or contact provider if no further options ordered. Patient should allow tablet to dissolve on tongue. Do not remove from blister pack until just before administering. polyethylene glycol (PEG) 3350 (Miralax) packet 17 g 17 g, Oral, Daily PRN, constipation, Starting on Tue06/07/23 at 0051, 1st line for treatment of constipation - give scheduled if no bowel movement in past 24 hours. Linked Groups Order Group 1: acetaminophen (Tylenol) tablet 650 mgJump to med 650 mg, Oral, Every 6 hours PRN, mild pain (1-3), fever, For temp greater than 100.4 F (38 C), Starting on Tue06/07/23 at 0840, Maximum dose of acetaminophen is 4000 mg from all sources in 24 hours. Or acetaminophen (Tylenol) suppository 650 mgJump to med 650 mg, Rectal, Every 6 hours PRN, mild pain (1-3), fever, For temp greater than 100.4 F (38 C), Starting on Tue06/07/23 at 0840, Administer if oral route cannot be used. Maximum dose of acetaminophen is 4000 mg from all sources in 24 hours. Scheduled Medication Order 10/27/2023 10/28/2023 10/29/2023 baclofen (Lioresal) tablet 10 mg 10 mg, Oral, 3 times daily, First dose on Tue10/26/23 at 1045 0906 (Given - Provider: Philip Foote RN)1451 (Given - Provider: Philip Foote RN)1999 (Given - Provider: Adia Carter RN) 08 (Given - Provider: Taty Feliz, KIMMY)131 (Given - Provider: Taty Feliz, KIMMY)2057 (Given - Provider: Ashley Acosta RN) 08 (Given - Provider: Enzo Guzman RN) gabapentin (Neurontin) capsule 300 mg 300 mg, Oral, 3 times daily, First dose on Tue10/26/23 at 1045 0906 (Given - Provider: Philip Foote RN)1451 (Given - Provider: Philip Foote RN)1999 (Given - Provider: Adia Carter RN) 0812 (Given - Provider: Taty Feliz RN)1319 (Given - Provider: Taty Feliz RN)2058 (Given - Provider: Ashley Acosta, KIMMY) 0823 (Given - Provider: Enzo Guzman RN) nicotine (Nicoderm, Step 1) 21 MG/24HR patch 1 patch 1 patch, TransDERmal, Administer over 24 Hours, Daily, First dose on Tue10/25/23 at 1800, Apply new patch to nonhairy, clean, dry skin on the upper body or upper outer arm. Rotate patch sites. Notify Pharmacy if patient or provider prefers patch to be removed at bedtime and replaced in the morning. 0857 (Medication Removed - Provider: Philip Foote RN)0904 (Medication Applied - Provider: Philip Foote RN) 0813 (Medication Applied - Provider: Taty Feliz RN)0859 (Medication Removed - Provider: Taty Feliz RN) 0823 (Medication Removed - Provider: Enzo Guzman RN)0824 (Medication Applied - Provider: Enzo Guzman RN)1049 (Due: Medication Removed - Provider: Automatic Discharge Provider - Comment: Time automatically adjusted from order being discontinued) traMADol (Ultram) tablet 100 mg (COMPLETED)(Linked Group 1) 100 mg, Oral, Every 6 hours, First dose on Tue10/27/23 at 1100, For 4 doses 1008 (Given - Provider: Philip Foote RN)1722 (Given - Provider: Philip Foote RN)2302 (Given - Provider: Adia Carter RN) 0457 (Given - Provider: Adia Carter RN) traMADol (Ultram) tablet 100 mg (COMPLETED)(Linked Group 1) 100 mg, Oral, Every 8 hours, First dose on Tue10/28/23 at 1100, For 3 doses 1107 (Given - Provider: Taty Feliz RN)1805 (Given - Provider: Taty Feliz RN) 0407 (Given - Provider: Ashley Acosta RN) venlafaxine XR (Effexor XR) 24 hr capsule 225 mg 225 mg, Oral, Daily with breakfast, First dose on Tue10/26/23 at 0800, Do not crush or chew. 09 (Given - Provider: Philip Foote RN) 08 (Given - Provider: Taty Feliz RN) 08 (Given - Provider: Enzo Guzman, RN) PRN Medication Order 10/27/2023 10/28/2023 10/29/2023 acetaminophen (Tylenol) suppository 650 mg(Linked Group 2) 650 mg, Rectal, Every 6 hours PRN, mild pain (1-3), fever, For temp greater than 100.4 F (38 C), Starting on Tue10/25/23 at 1345, Administer if oral route cannot be used. Maximum dose of acetaminophen is 4000 mg from all sources in 24 hours. acetaminophen (Tylenol) tablet 650 mg(Linked Group 2) 650 mg, Oral, Every 6 hours PRN, mild pain (1-3), fever, For temp greater than 100.4 F (38 C), Starting on Tue10/25/23 at 1345, Maximum dose of acetaminophen is 4000 mg from all sources in 24 hours. dicyclomine (Bentyl) capsule 10 mg 10 mg, Oral, 4 times daily PRN, gi cramping, Starting on Tue10/26/23 at 1034 hydrOXYzine pamoate (Vistaril) capsule 50 mg 50 mg, Oral, Every 6 hours PRN, anxiety, Starting on Tue10/26/23 at 1034 2059 (Given - Provider: Ashley Acosta RN) 08 (Given - Provider: Enzo Guzman, KIMMY) ibuprofen tablet 400 mg 400 mg, Oral, Every 6 hours PRN, pain 1-10, Starting on Tue10/26/23 at 1034 loperamide (Imodium) capsule 2 mg 2 mg, Oral, Every 3 hours PRN, diarrhea, Starting on Tue10/26/23 at 1034 naloxone (Narcan) injection 0.4 mg 0.4 mg, IntraVENous, Every 5 min PRN, opioid reversal, respiratory depression, Starting on Tue10/26/23 at 1038, +++ For RR <10, pinpoint pupils, over sedation for opioid reversal - MUST notify front clerk provider immediately after first dose, may give IM or SQ if no IV access +++ ondansetron (Zofran) injection 4 mg(Linked Group 3) 4 mg, IntraVENous, Every 6 hours PRN, nausea, vomiting, Starting on Tue10/25/23 at 1345, 1st Line. Give IV if patient is unable to take orally. If inadequate response within 60 minutes, proceed to next-line agent or contact provider if no further options ordered. ondansetron ODT (Zofran-ODT) disintegrating tablet 4 mg(Linked Group 3) 4 mg, Oral, Every 8 hours PRN, nausea, vomiting, Starting on Tue10/25/23 at 1345, 1st Line. If inadequate response within 60 minutes, proceed to next-line agent or contact provider if no further options ordered. Patient should allow tablet to dissolve on tongue. Do not remove from blister pack until just before administering. polyethylene glycol (PEG) 3350 (Miralax) packet 17 g 17 g, Oral, Daily PRN, constipation, Starting on Tue10/25/23 at 1345, 1st line for treatment of constipation - give scheduled if no bowel movement in past 24 hours. prochlorperazine (Compazine) injection 10 mg 10 mg, IntraVENous, Every 6 hours PRN, nausea, vomiting, Starting on Tue10/25/23 at 1346, 2nd line traZODone (Desyrel) tablet 50 mg 50 mg, Oral, Nightly PRN, sleep, Starting on Tue10/26/23 at 1034 2302 (Given - Provider: Adia Carter RN) 2215 (Given - Provider: Ashley Acosta RN) Linked Groups Order Group 1: traMADol (Ultram) tablet 100 mg () 100 mg, Oral, Every 4 hours, First dose on Tue10/26/23 at 1100, For 6 doses Followed by traMADol (Ultram) tablet 100 mg (COMPLETED)Jump to med 100 mg, Oral, Every 6 hours, First dose on Tue10/27/23 at 1100, For 4 doses Followed by traMADol (Ultram) tablet 100 mg (COMPLETED)Jump to med 100 mg, Oral, Every 8 hours, First dose on Tue10/28/23 at 1100, For 3 doses Group 2: acetaminophen (Tylenol) tablet 650 mgJump to med 650 mg, Oral, Every 6 hours PRN, mild pain (1-3), fever, For temp greater than 100.4 F (38 C), Starting on Tue10/25/23 at 1345, Maximum dose of acetaminophen is 4000 mg from all sources in 24 hours. Or acetaminophen (Tylenol) suppository 650 mgJump to med 650 mg, Rectal, Every 6 hours PRN, mild pain (1-3), fever, For temp greater than 100.4 F (38 C), Starting on Tue10/25/23 at 1345, Administer if oral route cannot be used. Maximum dose of acetaminophen is 4000 mg from all sources in 24 hours. Group 3: ondansetron ODT (Zofran-ODT) disintegrating tablet 4 mgJump to med 4 mg, Oral, Every 8 hours PRN, nausea, vomiting, Starting on Tue10/25/23 at 1345, 1st Line. If inadequate response within 60 minutes, proceed to next-line agent or contact provider if no further options ordered. Patient should allow tablet to dissolve on tongue. Do not remove from blister pack until just before administering. Or ondansetron (Zofran) injection 4 mgJump to med 4 mg, IntraVENous, Every 6 hours PRN, nausea, vomiting, Starting on Tue10/25/23 at 1345, 1st Line. Give IV if patient is unable to take orally. If inadequate response within 60 minutes, proceed to next-line agent or contact provider if no further options ordered. Scheduled Medication Order 11/06/2023 11/07/2023 11/08/2023 diphenhydrAMINE (BENADryl) injection 25 mg (COMPLETED) 25 mg, IntraVENous, Once, On Tue11/08/23 at 0540, For 1 dose 0540 (Given - Provid er: Serenity Flynn RN) droperidol (Inapsine) injection 0.625 mg (COMPLETED) 0.625 mg, IntraVENous, Once, On Tue11/08/23 at 1155, For 1 dose 1201 (Given - Provid er: Caroline Appiah RN) ketorolac (Toradol) injection 15 mg (COMPLETED) 15 mg, IntraVENous, Once, On Tue11/08/23 at 1650, For 1 dose 1653 (Given - Provid er: Caroline Appiah RN) lactated ringers bolus 1,000 mL (COMPLETED) 1,000 mL, IntraVENous, at 500 mL/hr, Administer over 2 Hours, Once, On Tue11/08/23 at 0230, For 1 dose 0313 (New Bag - Provider: Lexis Champion RN)0500 (Stopped - Provider: Serenity Flynn, RN) metoclopramide (Reglan) injection 10 mg (COMPLETED) 10 mg, IntraVENous, Once, On Tue11/08/23 at 0540, For 1 dose 0540 (Given - Provid er: Serenity Flynn RN) ondansetron (Zofran) injection 4 mg (COMPLETED) 4 mg, IntraVENous, Once, On Tue11/07/23 at 2020, For 1 dose 2224 (Given - Provider: Alonzo Medellin RN) ondansetron (Zofran) injection 4 mg (COMPLETED) 4 mg, IntraVENous, Once, On Tue11/08/23 at 0120, For 1 dose 0313 (Given - Provid er: Lexis Champion RN) ondansetron (Zofran) injection 4 mg (COMPLETED) 4 mg, IntraVENous, Once, On Tue11/08/23 at 1650, For 1 dose 165 (Given - Provid er: Caroline Appiah RN) ondansetron (Zofran) injection 4 mg (COMPLETED) 4 mg, IntraVENous, Once, On Tue11/08/23 at 1915, For 1 dose 1919 (Given - Provid er: Caroline Appiah RN) sodium chloride 0.9 % bolus 1,000 mL (COMPLETED) 1,000 mL, IntraVENous, at 1,000 mL/hr, Administer over 1 Hours, Once, On Tue11/07/23 at 2020, For 1 dose 2224 (New Bag - Provider: Alonzo Medellin RN) 0015 (Stopped - Provider: Lexis Champion RN) sodium chloride 0.9 % bolus 1,000 mL (COMPLETED) 1,000 mL, IntraVENous, at 1,000 mL/hr, Administer over 1 Hours, Once, On Tue11/08/23 at 1300, For 1 dose 1304 (New Bag - Provider: Caroline Appiah, KIMMY)1404 (Stopped - Provider: Caroline Appiah RN) Continuous Medication Order 11/06/2023 11/07/2023 11/08/2023 sodium chloride 0.9 % infusion 125 mL/hr, IntraVENous, Continuous, Starting on Tue11/08/23 at 1645 1647 (New Bag - Prov ider: Caroline Appiah, KIMMY) PRN Medication Order 11/06/2023 11/07/2023 11/08/2023 droperidol (Inapsine) injection 0.625 mg (CANCELED) 0.625 mg, IntraVENous, Every 6 hours PRN, nausea, Starting on Tue11/08/23 at 0708 0713 (Given - Provid er: Serenity Flynn RN) iopamidol (Isovue-370) 76 % injection 75 mL (COMPLETED) 75 mL, IntraVENous, IMG once PRN, contrast, Starting on Tue11/08/23 at 0931, For 1 dose 0931 (Given - Provid er: NIMISHA Miller) Scheduled Medication Order 04/09/2024 04/10/2024 04/11/2024 diphenhydrAMINE (BENADryl) injection 25 mg (COMPLETED) 25 mg, IntraVENous, Once, On Tue04/11/24 at 0110, For 1 dose 0210 (Given - Provid er: Renae Graves RN) ketorolac (Toradol) injection 15 mg (COMPLETED) 15 mg, IntraVENous, Once, On Tue04/11/24 at 0110, For 1 dose 0210 (Given - Provid er: Renae Graves RN) prochlorperazine (Compazine) injection 5 mg (COMPLETED) 5 mg, IntraVENous, Once, On Tue04/11/24 at 0110, For 1 dose 0210 (Given - Provid er: Renae Graves RN) sodium chloride 0.9 % bolus 1,000 mL (COMPLETED) 1,000 mL, IntraVENous, at 1,000 mL/hr, Administer over 1 Hours, Once, On Tue04/11/24 at 0110, For 1 dose 0210 (New Bag - Prov ider: Renae Graves RN)0310 (Stopped - Provider: Renae Graves RN) Scheduled Medication Order 08/12/2024 08/13/2024 08/14/2024 baclofen (Lioresal) tablet 10 mg 10 mg, Oral, 3 times daily, First dose on Tue08/13/24 at 1450 1609 (Given - Provider: Ursula Denney RN)210 (Given - Provider: Karuna Sandoval, RN) 09 (Given - Provider: Jose L Jimenez RN)1400 (Canceled Entry - Provider: Automatic Discharge Provider - Comment: Automatically canceled at discontinue of medication order) buPROPion SR (Wellbutrin SR) 12 hr tablet 100 mg 100 mg, Oral, Daily, First dose on Tue08/14/24 at 0915, Do not crush, chew, or split. 1044 (Given - Provid er: Jose L Jimenez RN) cloNIDine (Catapres) tablet 0.1 mg (COMPLETED) 0.1 mg, Oral, Once, On Tue08/13/24 at 1005, For 1 dose, Administer this test dose, then check blood pressure and heart rate 1 hour later. If SBP < 90, DBP <60, marked postural hypotension, or heart rate < 60 bpm, contact ordering provider and do not continue with clonidine taper regimen without further instruction., Indications: Opioid Withdrawal Syndrome 1008 (Given - Provider: Ursula Denney RN) cloNIDine (Catapres) tablet 0.3 mg (CANCELED)(Linked Group 1) 0.3 mg, Oral, Every 6 hours scheduled (4 times per day), First dose on Tue08/13/24 at 1005, For 16 doses, Check blood pressure before each administration. Hold dose if SBP < 90 or DBP < 60, if heart rate < 60, or if marked dizziness or postural hypotension. Assess Clinical Opioid Withdrawal Scores (COWS) per ordered protocol., Indications: Opioid Withdrawal Syndrome 1007 (Given - Provider: Ursula Denney RN) gabapentin (Neurontin) capsule 300 mg 300 mg, Oral, 3 times daily, First dose on Tue08/13/24 at 1450 1609 (Given - Provider: Ursula Denney RN)210 (Given - Provider: Karuna Sandoval, RN) 09 (Given - Provider: Jose L Jimenez RN)1400 (Canceled Entry - Provider: Automatic Discharge Provider - Comment: Automatically canceled at discontinue of medication order) ondansetron (Zofran) injection 4 mg (COMPLETED) 4 mg, IntraVENous, Once, On Tue08/13/24 at 1150, For 1 dose 1243 (Given - Provider: Ursula Denney RN) ondansetron (Zofran) injection 4 mg (COMPLETED) 4 mg, IntraVENous, Once, On Tue08/14/24 at 0210, For 1 dose 0210 (Given - Provid er: Karuna Sandoval RN) sodium chloride 0.9 % bolus 1,000 mL (COMPLETED) 1,000 mL, IntraVENous, at 1,000 mL/hr, Administer over 1 Hours, Once, On Tue08/13/24 at 1005, For 1 dose 1027 (New Bag - Provider: Sj Goff, EMT)1127 (Stopped - Provider: Ursula Denney RN) traMADol (Ultram) tablet 100 mg(Linked Group 2) 100 mg, Oral, Every 4 hours, First dose on Tue08/13/24 at 1450, For 6 doses 1609 (Given - Provider: Ursula Denney RN)2101 (Given - Provider: Karuna Sandoval RN - Comment: Pt throwing up not able to keep meds down schedueled time) 0105 (Given - Provider: Karuna Sandoval RN - Comment: Medication needs to be given Q4 hours)0529 (Given - Provider: Karuna Sandoval RN - Comment: PT needs to recieve medication Q4 hours)0650 (Canceled Entry - Provider: Automatic Discharge Provider - Comment: Automatically canceled at discontinue of medication order)1044 (Given - Provider: Jose L Jimenez RN) traMADol (Ultram) tablet 100 mg(Linked Group 2) 100 mg, Oral, Every 6 hours, First dose on Tue08/14/24 at 1450, For 4 doses 1450 (Canceled Entry - Provider: Automatic Discharge Provider - Comment: Automatically canceled at discontinue of medication order) traMADol (Ultram) tablet 100 mg(Linked Group 2) 100 mg, Oral, Every 8 hours, First dose on Tue08/15/24 at 1450, For 3 doses venlafaxine XR (Effexor XR) 24 hr capsule 225 mg 225 mg, Oral, Daily with breakfast, First dose on Tue08/14/24 at 0800, Do not crush or chew. 0901 (Given - Provid er: Jose L Jimenez RN) PRN Medication Order 08/12/2024 08/13/2024 08/14/2024 dicyclomine (Bentyl) capsule 10 mg 10 mg, Oral, 4 times daily PRN, gi cramping, Starting on Tue08/13/24 at 1443 0901 (Given - Provid er: Jose L Jimenez RN) hydrOXYzine pamoate (Vistaril) capsule 50 mg 50 mg, Oral, Every 6 hours PRN, anxiety, Starting on Tue08/13/24 at 1443 ibuprofen tablet 400 mg 400 mg, Oral, Every 6 hours PRN, pain 1-10, Starting on Tue08/13/24 at 1443 naloxone (Narcan) injection 0.4 mg 0.4 mg, IntraVENous, Every 5 min PRN, opioid reversal, respiratory depression, Starting on Tue08/13/24 at 1447, +++ For RR <10, pinpoint pupils, over sedation for opioid reversal - MUST notify front clerk provider immediately after first dose, may give IM or SQ if no IV access +++ promethazine (Phenergan) injection 12.5 mg(Linked Group 3) 12.5 mg, IntraMUSCular, Every 6 hours PRN, nausea, vomiting, Starting on Tue08/13/24 at 1443 1943 (Given - Provider: Ursula Denney RN) 011 (Given - Provider: Karuna Sandoval, KIMMY) promethazine (Phenergan) suppository 12.5 mg(Linked Group 3) 12.5 mg, Rectal, Every 6 hours PRN, nausea, vomiting, Starting on Tue08/13/24 at 1443 1943 (See Alternative - Provider: Ursula Denney RN) 0111 (See Alternative - Provider: Karuna Sandoval RN) promethazine (Phenergan) tablet 12.5 mg(Linked Group 3) 12.5 mg, Oral, Every 6 hours PRN, nausea, vomiting, Starting on Tue08/13/24 at 1443 1943 (See Alternative - Provider: Ursula Denney RN) 0111 (See Alternative - Provider: Karuna Sandoval RN) traZODone (Desyrel) tablet 50 mg 50 mg, Oral, Nightly PRN, sleep, Starting on Tue08/13/24 at 1443 Linked Groups Order Group 1: cloNIDine (Catapres) tablet 0.3 mg (CANCELED)Jump to med 0.3 mg, Oral, Every 6 hours scheduled (4 times per day), First dose on Tue08/13/24 at 1005, For 16 doses, Check blood pressure before each administration. Hold dose if SBP < 90 or DBP < 60, if heart rate < 60, or if marked dizziness or postural hypotension. Assess Clinical Opioid Withdrawal Scores (COWS) per ordered protocol., Indications: Opioid Withdrawal Syndrome Followed by cloNIDine (Catapres) tablet 0.2 mg (CANCELED) 0.2 mg, Oral, Every 8 hours scheduled (3 times per day), First dose on Tue08/17/24 at 1400, For 3 doses, Check blood pressure before each administration. Hold dose if SBP < 90 or DBP < 60, if heart rate < 60, or if marked dizziness or postural hypotension. Assess Clinical Opioid Withdrawal Scores (COWS) per ordered protocol., Indications: Opioid Withdrawal Syndrome Followed by cloNIDine (Catapres) tablet 0.1 mg (CANCELED) 0.1 mg, Oral, Every 8 hours scheduled (3 times per day), First dose on Tue08/18/24 at 1400, For 3 doses, Check blood pressure before each administration. Hold dose if SBP < 90 or DBP < 60, if heart rate < 60, or if marked dizziness or postural hypotension. Assess Clinical Opioid Withdrawal Scores (COWS) per ordered protocol., Indications: Opioid Withdrawal Syndrome Followed by cloNIDine (Catapres) tablet 0.05 mg (CANCELED) 0.05 mg, Oral, Every 8 hours scheduled (3 times per day), First dose on Tue08/19/24 at 1400, For 3 doses, Check blood pressure before each administration. Hold dose if SBP < 90 or DBP < 60, if heart rate < 60, or if marked dizziness or postural hypotension. Assess Clinical Opioid Withdrawal Scores (COWS) per ordered protocol. Group 2: traMADol (Ultram) tablet 100 mgJump to med 100 mg, Oral, Every 4 hours, First dose on Tue08/13/24 at 1450, For 6 doses Followed by traMADol (Ultram) tablet 100 mgJump to med 100 mg, Oral, Every 6 hours, First dose on Tue08/14/24 at 1450, For 4 doses Followed by traMADol (Ultram) tablet 100 mgJump to med 100 mg, Oral, Every 8 hours, First dose on Tue08/15/24 at 1450, For 3 doses Group 3: promethazine (Phenergan) tablet 12.5 mgJump to med 12.5 mg, Oral, Every 6 hours PRN, nausea, vomiting, Starting on Tue08/13/24 at 1443 Or promethazine (Phenergan) injection 12.5 mgJump to med 12.5 mg, IntraMUSCular, Every 6 hours PRN, nausea, vomiting, Starting on Tue08/13/24 at 1443 Or promethazine (Phenergan) suppository 12.5 mgJump to med 12.5 mg, Rectal, Every 6 hours PRN, nausea, vomiting, Starting on Tue08/13/24 at 1443 Goals (unrecognized section and content) Goals may be documented in a n alternate sectionGoals may be documented in an alternate sectionGoals may be documented in an alternate sectionGoals may be documented in an alternate section Source Comments (unrecognize d section and content) In the event this informatio n is protected by the Federal Confidentiality of Alcohol and Drug Abuse Patient Records regulations: The Federal rules restrict any use of the information to criminally investigate or prosecute any alcohol or drug abuse patient.[facility] FOR RECORDS PERTAINING TO PATIENTS WHO ARE OR HAVE BEEN ENROLLED IN A CHEMICAL DEPENDENCY/SUBSTANCEABUSE PROGRAM, SOME INFORMATION MAY BE OMITTED. This clinical summary was aggregated from multiple sources. Caution should be exercised in using it in the provision of clinical care. This summary normalizes information from multiple sources, and as a consequence, information in this document may materially change the coding, format and clinical context of patient data. In addition, data may be omitted in some cases. CLINICAL DECISIONS SHOULD BE BASED ON THE PRIMARY CLINICAL RECORDS. [facility] provides no warranty or guarantee of the accuracy or completeness of information in this document.
[2024-12-10 23:39] VITALS: BP 138/91; PULSE 73; RESP 16; TEMP 36.9; O2SAT 100
[2024-12-10 23:41] VITALS: BMI 26.2
--- NOTE | 2024-12-10 23:44 | HP.PCM_ITS ---
HPI - General General Date of Admission: 12/10/24 Date of Service: 12/10/24 Chief Complaint: Opiate withdrawal HPI Narrative MAYITO TINOCO, is a 39 M who presents to the [facility] from [facility] emergency room due to chief complaint of opiate withdrawal. Patient has significant past medical history of opiate abuse and states he last used fentanyl 2 days ago. He took Suboxone yesterday and immediately went into withdrawal symptoms. Patient has complained of nausea, vomiting and sweating with irritability. He states he has previously gone through opiate withdrawal rehabilitation and is hoping to be more successful at this time. Patient denies any chest pain, shortness of breath, fevers or chills at this time. He will be admitted to the medical surgical floor and placed on opiate withdrawal protocol and ed case manager consulted for post withdrawal rehab options and management. [facility] Medical History (Updated 12/10/24 @ 23:[address] Drake Montero MD) Opiate withdrawal Heroin abuse Mandible fracture Carpal tunnel syndrome, bilateral Anxiety Depression Asthma Drug abuse IV drug user Substance abuse Home Medications ?Medication ?Instructions ?Recorded ?Last Taken ?Type venlafaxine 75 mg capsule,extended 150 mg PO DAILY moo d 04/21/22 04/21/22 History release 24 hr venlafaxine 150 mg 150 mg PO DAILY DEPRESSION 0 11/08/23 Unknown History capsule,extended release 24 hr bupropion HCl 100 mg tablet,12 hr 100 mg PO DAILY 12/21 Unknown History sustained-release nicotine 14 mg/24 hr daily 1 patch topical DAILY 09/03 Unknown History transdermal patch ondansetron 4 mg disintegrating 4 mg PO Q8H PRN PRN Na usea #10 tabs 09/03/24 Unknown Rx tablet Allergy/AdvReac Type Severity Reaction Status Date / Time No Known Allergies Allergy Verified 09/28/22 10:17 Social History Smoking Status: Former smoker Smokeless tobacco user: chewing tobacco alcohol intake: never substance use type: opiates ROS Constitutional Constitutional: Reports night sweats; Denies chills or fever(s) Eyes Eyes: Denies blurry vision ENT HEENT: Denies abnormal hearing Cardiovascular Cardiovascular: Denies chest pain Respiratory/Chest Respiratory/Chest: Denies shortness of breath at rest Gastrointestinal Gastrointestinal: Reports abdominal pain, nausea and vomiting Genitourinary Genitourinary: Denies dysuria Musculoskeletal Musculoskeletal: Denies back pain Integumentary Integumentary: Denies dry skin Neurologic Neurologic: Denies abnormal speech Psychiatric Psychiatric: Reports anxiety Vital Signs Vital Signs Vital Signs: 12/10/24 23:39 Temperature 98.5 F Temperature Source Oral Pulse Rate 73 Respiratory Rate 16 Blood Pressure 138/91 H Blood Pressure Mean 106 Blood Pressure Source Monitor Blood Pressure Position Semi-Fowlers Blood Pressure Location Left Arm Pulse Ox 100 Oxygen Delivery Method Room Air Weight Weight: 177 lb 0.499 oz Body Mass Index (BMI) 26.2 Physical Exam Const oriented x3 General Appearance: cooperative HEENT normocephalic and head/scalp atraumatic Eyes PERRL Neck no lymphadenopathy Lymph Lymphatic: no lymphadenopathy noted Resp normal respiratory effort, normal air movement and clear to auscultation bilaterally Cardio regular rate, regular rhythm, S1 normal heart sound and S2 normal heart sound GI normal to inspection, nondistended, normoactive bowel sounds Extremity normal capillary refill Skin Skin Narrative: Diaphoretic General Skin Exam: no breakdown Neuro no focal motor deficits and no sensory deficits noted Speech: speech normal Psych cooperative Attitude: agitated Mood & Affect: anxious Assessment & Plan Assessment/Plan (1) Tobacco use: (2) Drug abuse: (3) IV drug user: (4) Opiate withdrawal: PLAN: Plan 1. Opiate withdrawal?admit patient to [facility] [address] [facility] on opiate withdrawal protocol and consult ed case manager for post withdrawal management options 2. Tobacco abuse?offer nicotine patch 3. DVT prophylaxis?patient is ambulatory and low risk for blood clot at this time Charges/Coding Visit Charges Inpatient E&M: 20159 Init Hosp L2
[2024-12-10 23:59] VITALS: O2SAT 100
--- OUTSIDE RECORDS SUMMARY | 2024-12-11 00:35 | XMS RPT_ITS | CCD ---
Author Organization [facility] Care Team Providers Care Meteorology Faculty Member Name Role Phone Asha Steffany Len Unavailable [...] Unavailab le MENDICINOYAN Unavailable Unavai lable SOL CUNHA Unavailable Unavailable MENDICINOYAN Unavailable Unavai lable ERPENBECK, [...] Care Provider UnavailMinerva Allen Primary Care Provider No, Physician Primary Care Provider UnavailMarc Gamino MD Unavailable Soco Paige CNP Primary Care Provider Minerva Grier CNP Primary Care Provider SUSAN CA Admitting Unavailable SUSAN CA Attending Unavailable MINERVA GRIER Primary Care Unavailable MINERVA GRIER Primary Care Unavailable SUSAN CA Referring Unavailable SUSAN CA Attending Unavailable MINERVA [...] Unavailable MARVEL, MINERVA M Primary Care Unavailable JALELE CM Attending Unavailable SCHMUCKER, SUSAN W Referring Unavailable MARVEL, MINERVA M Primary Care Unavailable SCHMUCKER, SUSAN W Referring Unavailable SCHMUCKER, SUSAN W Attending Unavailable MARVEL, MINERVA M Primary Care Unavailable SCHMUCKER, SUSAN W Admitting Unavailable Care Physician, No Primary Primary Care Provider Unavailable Dr. Ángela Banks Emergency Provider Dr. Kyler Nance Admit Provider [phone] Kyler Nance Attending Provider [phone] Dr. Kyler Nance Other Provider [phone] Dr. Slava Saavedra Attending Provider [phone] Slava Saavedra Other Provider Dr. Marc Guzman Attending Provider Unavailable Primary Care Provider Unavailabl e MINERVA GRIER M Primary Care Unavailable JAYANT TRIMBLE Attending Unavailable Marc Juan MD Unavailable [phone] Soco Paige CNP Primary Care Provider NILA BOBO Attending Unavailable PAIGE, SOCO Primary Care Unavailable BHARAT GUPTA Admitting Unavailab jj PAIGE, SOCO Primary Care Unavailable [facility] GONZÁLEZ Wan Attending Unavailable MARC JUAN Consulting Unavailable GONZÁLEZ HEARN Attending Unavailable [facility] Unavai lable PAIGE, SOCO [...] Provider Un available LYNDSEY Jacobs Attending Provider Unavailable Primary Care Provider Unavailabl e Inc, [...] r Dr. Alexsander Mckenna DO Emergency Provider [phone] Fahad Pepe Referring Unavailable Lang Montilla Attending [...] Dunlap Attending Mabel Julio [facility] Alex[facility]ander Mckenna Attending Unavailable Unavailable Primary [...] tablet 0 09/26/2018 Active polyethylene glycol 3350 10387 mg powder for oral solution (7 sources) [...] (constipation) for up to 90 days. sennosides, fci 8.6 mg oral capsule (3 sources) Start: 11-27-19 End: 12-27-19 take 1 capsule by mouth every twenty-four hours as needed sennosides (SENNA) 8.6 mg cap Take 1 Capsule by mouth once daily as needed (constipation) for up to 30 days. 30 Capsule 1 11/26/2024 12/26/2024 Active Comment on above: Take 1 Capsule by [facility] once daily as needed (constipation) for up [...] daily with breakfast. Take 1 Capsule by [facility] once daily with breakfast for 60 days. [...] Screen Ql (U) Negative CUTOFF :500 ng/mL [facility] Work Phone: RFLX - CANNABINOIDS, MS, UR RFX Routineon 12-03-2024 Cannabinoids Confirm Ql (U) Positive [facility] Work Phone: Carboxy tetrahydrocannabinol Confirm (U) [Mass/Vol] 971 ng/mg creat [facility] Work Phone: RFLX - GABAPENTIN LEVEL Rout ineon 12-03-2024 Gabapentin Confirm (U) [Mass/Vol] PRESENT [facility] Work Phone: Gabapentin Confirm Ql (U) Positive [facility] Work Phone: TOXASSURE FLEX 23, UR W/DL U rine Routineon 12-03-2024 1-Hydroxymidazolam Screen Ql (U) Not detected [facility] Work Phone: 6-Monoacetylmorphine (6-PARTH) Screen Ql (U) Negative CUTOFF:10 ng/mL [facility] [employer] [facility] Work Phone: 7-Aminoclonazepam/Creati nine (U) [Mass ratio] Not detected [facility] [employer] [facility] Work Phone: Acetaminophen Screen Ql (U) Negative CUTOFF:5.0 ug/mL Count Includes [facility] Work Phone: Alpha hydroxyalprazolam/Creati nine (U) [Mass ratio] Not detected [facility] [employer] [facility] Work Phone: Alpha hydroxytriazolam/Creatin ine Confirm (U) [Mass ratio] Not detected [facility] [employer] [facility] Work Phone: ALPRAZolam/Creatinine Confirm (U) [Mass ratio] Not detected [facility] Work Phone: Amino Chloropyridine Not detected [facility] Work Phone: Amphetamines Screen method >500 ng/mL Ql (U) Negative CUTOFF:300 ng/mL Count Includes [facility] Work Phone: Barbiturates Screen Ql (U) Negative CUTOFF:200 ng/mL Count Includes [facility] [employer] Work Phone: Benzodiazepines screen method Nom (U) Negative Count Includes [facility] Work Phone: Buprenorphine Screen Ql (U) Positive Count Includes [facility] Work Phone: Buprenorphine/Creatinine (U) [Mass ratio] 326 ng/mg creat Count Includes [facility] Work Phone: Cannabinoids Screen Ql (U) Count Includes [facility] Work Phone: Carisoprodol Ql (U) Negative CUTOFF:1 00 ng/mL Count Includes [facility] Work Phone: clonazePAM/Creatinine Confirm (U) [Mass ratio] Not detected Count Includes [facility] Work Phone: Cocaine+Benzoylecgonine Screen Ql (U) Negative CUTOFF:150 ng/mL Count Includes [facility] Work Phone: Creatinine (U) [Mass/Vol] 31 mg/dL >=20 mg/dL Count Includes [facility] Work Phone: Dextromethorphan (U) [Mass/Vol] Not detected Count Includes [facility] Work Phone: Dextromethorphan+Levorph anol Ql (U) Not detected [facility] Work Phone: diazePAM/Creatinine (U) [Mass ratio] Not detected [facility] Work Phone: Drugs identified Nom (U) Negative [facility] Work Phone: fentaNYL cutoff Screen (U) [Mass/Vol] Negative [facility] Work Phone: fentaNYL/Creatinine (U) [Mass ratio] Not detected Count Includes [facility] Work Phone: Flunitrazepam Screen Ql (U) Not detected Count Includes [facility] Work Phone: Gabapentin (U) [Mass/Vol] Count Includes [facility] Work Phone: Hallucinogens Nom (U) Negative [facility] Work Phone: Hypnotics Screen Ql (U) Negative C [facility] Work Phone: Ketamine Ql (U) Not detected Count Includes [facility] Work Phone: LORazepam/Creatinine (U) [Mass ratio] Not detected Count Includes [facility] Work Phone: Meperidine Screen Ql (U) Negative CUT OFF:200 ng/mL Count Includes [facility] Work Phone: Methadone Screen Ql (U) Negative CUTO FF:100 ng/mL Count Includes [facility] Work Phone: Methadone+Metabolite Screen Ql (U) Negative CUTOFF:100 ng/mL Count Includes [facility] Work Phone: Midazolam/Creatinine Confirm (U) [Mass ratio] Not detected Count Includes [facility] Work Phone: N-desalkylflurazepam/Cre atinine (U) [Mass ratio] Not detected Count Includes [facility] Work Phone: Norbuprenorphine/Creatin ine (U) [Mass ratio] 352 ng/mg creat Count Includes [facility] Work Phone: Nordiazepam/Creatinine (U) [Mass ratio] Not detected Count Includes [facility] Work Phone: Norfentanyl/Creatinine (U) [Mass ratio] Not detected Count Includes [facility] Work Phone: Norflunitrazepam (U) [Mass/Vol] Not detected Count Includes [facility] Work Phone: Norketamine (U) [Mass/Vol] Not detected Count Includes [facility] Work Phone: Opiates Screen (U) [Mass/Vol] Negative CUTOFF:100 ng/mL Count Includes [facility] Work Phone: Oxazepam/Creatinine (U) [Mass ratio] Not detected Count Includes [facility] Work Phone: oxyCODONE cutoff Screen (U) [Mass/Vol] Negative CUTOFF:100 ng/mL Count Includes [facility] Work Phone: Phencyclidine Ql (U) Negative CUTOFF: 25 ng/mL Count Includes [facility] Work Phone: Prescribed medications FINAL [facility] Work Phone: Propoxyphene Screen Ql (U) Negative CUTOFF:300 ng/mL Count Includes [facility] Work Phone: Tapentadol cutoff Screen (U) [Mass/Vol] Negative CUTOFF:200 ng/mL Count Includes [facility] Work Phone: Temazepam/Creatinine (U) [Mass ratio] Not detected Count Includes [facility] Work Phone: traMADol Screen Ql (U) Negative CUTOF F:200 ng/mL Count Includes [facility] Work Phone: Zaleplon (U) [Mass/Vol] Not detected Count Includes [facility] Work Phone: Zolpidem beyedx-5-kswnjcjfkwn Screen Ql (U) Not detected Count Includes [facility] Work Phone: Zolpidem Screen Ql (U) Not detected [facility] Work Phone: Dlrhldgcq-C-xonpd (U) [Mass/Vol] Not detected [facility] Work Phone: CHLAMYDIA, GONORRHOEAE, AND TRICHOMONAS VAGINALIS, KATLYN Urine Urine Routineon 11-28-2024 C. trachomatis rRNA KATLYN+probe Ql (Unsp spec) Negative Negative [facility] Work Phone: N. gonorrhoeae rRNA KATLYN+probe Ql (Unsp spec) Negative Negative [facility] Work Phone: T. vaginalis rRNA KATLYN+probe Ql (Unsp spec) Negative Negative [facility] Work Phone: COMPREHENSIVE METABOLIC PANE L Routineon 11-27-2024 Albumin [Mass/Vol] 4.4 g/dL 4.1 - 5.1 g/dL [facility] Work Phone: ALP [Catalytic activity/Vol] 110 U/L 44 - 121 IU/L [facility] Work Phone: ALT [Catalytic activity/Vol] 55 U/L High 0 - 44 IU/L [facility] Work Phone: AST [Catalytic activity/Vol] 56 U/L High 0 - 40 IU/L [facility] Work Phone: Bilirubin [Mass/Vol] mg/dL 0.0 - 1 .2 mg/dL [facility] Work Phone: Calcium [Mass/Vol] 9.3 mg/dL 8.7 - 10. 2 mg/dL Count Includes [facility] [employer] Work Phone: Chloride [Moles/Vol] 103 mmol/L 96 - 10 6 mmol/L Count Includes [facility] Work Phone: CO2 [Moles/Vol] 19 mmol/L Low 20 - 29 mmol/L Count Includes [facility] Work Phone: Creatinine [Mass/Vol] 0.94 mg/dL 0.76 - 1.27 mg/dL Count Includes [facility] [employer] Work Phone: Globulin (S) [Mass/Vol] 2.6 g/dL 1.5 - 4.5 g/dL [employer] Work Phone: Glucose [Mass/Vol] 84 mg/dL 70 - 99 mg/dL [employer] Work Phone: Potassium [Moles/Vol] 4.1 mmol/L 3.5 - 5.2 mmol/L [employer] Work Phone: Protein [Mass/Vol] 7 g/dL 6.0 - 8.5 g/dL [employer] Work Phone: Sodium [Moles/Vol] 139 mmol/L 134 - 144 mmol/L [employer] Work Phone: Urea nitrogen [Mass/Vol] 15 mg/dL 6 - 20 mg/dL [employer] Work Phone: Urea nitrogen/Creatinine [Mass ratio] 16 mg/mg 9 - 20 [employer] Work Phone: HEMOGLOBIN GLYCOSYLATED A1C Routineon 11-27-2024 HbA1c (Bld) [Mass fraction] 5.6 % 4.8 - 5.6 % [employer] Work Phone: HIV 1/0/2 AG/AB W/CASCADE RF LX SUPPLEMENTAL TESTING Routineon 11-27-2024 HIV 1+2 Ab+HIV1 p24 Ag IA Ql Non-Reactive Non Reactive [employer] Work Phone: LIPID PANEL Routineon 2024 Cholesterol [Mass/Vol] 170 mg/dL 100 - 199 mg/dL [employer] Work Phone: Cholesterol in HDL [Mass/Vol] 30 mg/dL Low >39 mg/dL [employer] Work Phone: Cholesterol in LDL [Mass/Vol] 114 mg/dL High 0 - 99 mg/dL [facility] Work Phone: Cholesterol in VLDL [Mass/Vol] 26 mg/dL 5 - 40 mg/dL [employer] Work Phone: Triglyceride [Mass/Vol] 145 mg/dL 0 - 149 mg/dL [employer] Work Phone: RFLX-INTERPRETATION Routineo n 11-27-2024 HCV Ab IA Ql Count Includes [facility] Work Phone: RPR (MONITOR) W/REFL TITER R outineon 11-27-2024 Observation interpretation (Unsp spec) [Interp] Count Includes [facility] Work Phone: Reagin Ab RPR Ql (S) Non-Reactive Non Reactive [facility] Work Phone: VIRAL HEPATITIS SCREENING AN D DIAGNOSIS (HAV, HBV, HCV) Routineon 11-27-2024 HAV Ab IA Ql (S) Negative Negative Count Includes [facility] Work Phone: HBV core Ab IA Ql Negative Negative Count Includes [facility] Work Phone: HBV surface Ab Ql (S) Reactive [facility] Work Phone: HBV surface Ag IA Ql Negative Negative [facility] Work Phone: HCV Ab IA Ql Non-Reactive Non Reactive [facility] Work Phone: Interpretation and review of laboratory results [facility] Work Phone: Laboratory comment William (Report) [facility] Work Phone: Laboratory - Drug toxicology on 11-16-2024 Ethanol Screen Ql (U) Negative CUTOFF :500 ng/mL [facility] Work Phone: RFLX - CANNABINOIDS, MS, UR RFX Routineon 11-16-2024 Cannabinoids Confirm Ql (U) Positive [facility] Work Phone: Carboxy tetrahydrocannabinol Confirm (U) [Mass/Vol] >1124 Count Includes [facility] Work Phone: RFLX - GABAPENTIN LEVEL Rout ineon 11-16-2024 Gabapentin Confirm (U) [Mass/Vol] PRESENT Count Includes [facility] Work Phone: Gabapentin Confirm Ql (U) Positive [facility] Work Phone: TOXASSURE FLEX 23, UR W/DL U rine Routineon 11-16-2024 1-Hydroxymidazolam Screen Ql (U) Not detected Count Includes [facility] Work Phone: 6-Monoacetylmorphine (6-PARTH) Screen Ql (U) Negative CUTOFF:10 ng/mL Count Includes [facility] Work Phone: 7-Aminoclonazepam/Creati nine (U) [Mass ratio] Not detected Count Includes [facility] Work Phone: Acetaminophen Screen Ql (U) Negative CUTOFF:5.0 ug/mL [facility] [employer] [facility] Work Phone: Alpha hydroxyalprazolam/Creati nine (U) [Mass ratio] Not detected [facility] [employer] [facility] Work Phone: Alpha hydroxytriazolam/Creatin ine Confirm (U) [Mass ratio] Not detected [facility] [employer] [facility] Work Phone: ALPRAZolam/Creatinine Confirm (U) [Mass ratio] Not detected [facility] [employer] [facility] Work Phone: Amino Chloropyridine Not detected [facility] Work Phone: Amphetamines Screen method >500 ng/mL Ql (U) Negative CUTOFF:300 ng/mL Count Includes [facility] Work Phone: Barbiturates Screen Ql (U) Negative CUTOFF:200 ng/mL Count Includes [facility] [employer] Work Phone: Benzodiazepines screen method Nom (U) Negative Count Includes [facility] Work Phone: Buprenorphine Screen Ql (U) Positive Count Includes [facility] Work Phone: Buprenorphine/Creatinine (U) [Mass ratio] 382 ng/mg creat Count Includes [facility] Work Phone: Cannabinoids Screen Ql (U) Count Includes [facility] Work Phone: Carisoprodol Ql (U) Negative CUTOFF:1 00 ng/mL Count Includes [facility] Work Phone: clonazePAM/Creatinine Confirm (U) [Mass ratio] Not detected Count Includes [facility] Work Phone: Cocaine+Benzoylecgonine Screen Ql (U) Negative CUTOFF:150 ng/mL Count Includes [facility] Work Phone: Creatinine (U) [Mass/Vol] 89 mg/dL >=20 mg/dL Count Includes [facility] Work Phone: Dextromethorphan (U) [Mass/Vol] Not detected Count Includes [facility] Work Phone: Dextromethorphan+Levorph anol Ql (U) Not detected [facility] Work Phone: diazePAM/Creatinine (U) [Mass ratio] Not detected [facility] Work Phone: Drugs identified Nom (U) Negative [facility] Work Phone: fentaNYL cutoff Screen (U) [Mass/Vol] Negative [facility] Work Phone: fentaNYL/Creatinine (U) [Mass ratio] Not detected Count Includes [facility] Work Phone: Flunitrazepam Screen Ql (U) Not detected [facility] Work Phone: Gabapentin (U) [Mass/Vol] Count Includes [facility] Work Phone: Hallucinogens Nom (U) Negative [facility] Work Phone: Hypnotics Screen Ql (U) Negative C [facility] Work Phone: Ketamine Ql (U) Not detected Count Includes [facility] Work Phone: LORazepam/Creatinine (U) [Mass ratio] Not detected Count Includes [facility] Work Phone: Meperidine Screen Ql (U) Negative CUT OFF:200 ng/mL Count Includes [facility] Work Phone: Methadone Screen Ql (U) Negative CUTO FF:100 ng/mL Count Includes [facility] Work Phone: Methadone+Metabolite Screen Ql (U) Negative CUTOFF:100 ng/mL Count Includes [facility] Work Phone: Midazolam/Creatinine Confirm (U) [Mass ratio] Not detected Count Includes [facility] Work Phone: N-desalkylflurazepam/Cre atinine (U) [Mass ratio] Not detected Count Includes [facility] Work Phone: Norbuprenorphine/Creatin ine (U) [Mass ratio] 345 ng/mg creat Count Includes [facility] Work Phone: Nordiazepam/Creatinine (U) [Mass ratio] Not detected Count Includes [facility] Work Phone: Norfentanyl/Creatinine (U) [Mass ratio] Not detected Count Includes [facility] Work Phone: Norflunitrazepam (U) [Mass/Vol] Not detected [facility] Work Phone: Norketamine (U) [Mass/Vol] Not detected Count Includes [facility] Work Phone: Opiates Screen (U) [Mass/Vol] Negative CUTOFF:100 ng/mL Count Includes [facility] Work Phone: Oxazepam/Creatinine (U) [Mass ratio] Not detected Count Includes [facility] Work Phone: oxyCODONE cutoff Screen (U) [Mass/Vol] Negative CUTOFF:100 ng/mL Count Includes [facility] Work Phone: [phone] Phencyclidine Ql (U) Negative CUTOFF: 25 ng/mL Count Includes [facility] Work Phone: Prescribed medications FINAL [facility] Work Phone: Propoxyphene Screen Ql (U) Negative CUTOFF:300 ng/mL Count Includes [facility] Work Phone: Tapentadol cutoff Screen (U) [Mass/Vol] Negative CUTOFF:200 ng/mL Count Includes [facility] Work Phone: Temazepam/Creatinine (U) [Mass ratio] Not detected Count Includes [facility] Work Phone: traMADol Screen Ql (U) Negative CUTOF F:200 ng/mL Count Includes [facility] Work Phone: Zaleplon (U) [Mass/Vol] Not detected Count Includes [facility] Work Phone: Zolpidem vosppw-9-bjnclgkiwdf Screen Ql (U) Not detected Count Includes [facility] Work Phone: Zolpidem Screen Ql (U) Not detected [facility] Work Phone: Mfixwqcsu-J-pjsch (U) [Mass/Vol] Not detected Count Includes [facility] [employer] Work Phone: Absolute neutrophil countOrd ered By: Alexsander Mckenna on 09-03-2024 Neutrophils (Bld) [#/Vol] 8.5 10*3/uL High 2.0-7.7 [facility] Alcohol, Blood (Medical)-Ser umon 09-03-2024 SERUM ETOH < 10.1 Normal <=10.0 [facility] Comment on above: Result Comment: This test is for medical purposes only. The legal definition of intoxication varies according to local law. Performed By: #### L 500.2500, L505.5000, L501.9100, L100.0100 ####[facility] [address] [place], [place], [id number] Amphetamines Screen method > 1000 ng/mL Ql (U)Ordered By: Alexsander Mckenna on 09-03-2024 Amphetamines Ql (U) Negative <1000 ng/mL [facility] Urine Barbiturates Screen Negative < 200 ng/mL [facility] Anion gap in Serum or Plasma Ordered By: Alexsander Mckenna on 09-03-2024 Anion gap [Moles/Vol] 16 mmol/L High 5-15 [facility] BUN/creatinine ratioOrdered By: Alexsander Mckenna on 09-03-2024 Urea nitrogen/Creatinine [Mass ratio] 9.3 mg/mg Low 10-20 [facility] Basic Metabolic Profile (BMP )on 09-03-2024 BUN/CRE 9.3 RATIO Low 10-20 [facility] Comment on above: Performed By: #### L 500.2500, L505.5000, L501.9100, L100.0100 ####[facility] [address] [place], [place], [id number] Calcium [Mass/Vol] 9.7 mg/dL Normal 7.6-11.0 [facility] Comment on above: Performed By: #### L 500.2500, L505.5000, L501.9100, L100.0100 ####[facility] [address] [place], [address] Chloride [Moles/Vol] 102 mmol/L Normal 98-108 [facility] Comment on above: Performed By: #### L 500.2500, L505.5000, L501.9100, L100.0100 ####[facility] [address] [place], [address] CO2 [Moles/Vol] 23.7 mmol/L Normal 21.0-32.0 [facility] Comment on above: Performed By: #### L 500.2500, L505.5000, L501.9100, L100.0100 ####[facility] [address] [place], [address] Creatinine [Mass/Vol] 1.02 mg/dL Normal 0.70-1.20 [facility] Comment on above: Performed By: #### L 500.2500, L505.5000, L501.9100, L100.0100 ####[facility] [address] [place], [address] ECRCL 97.23 ml/min Normal 50-250 [facility] Comment on above: Performed By: #### L 500.2500, L505.5000, L501.9100, L100.0100 ####[facility] [address] [place], [address] GAP 16 High 5-15 [facility] Comment on above: Performed By: #### L 500.2500, L505.5000, L501.9100, L100.0100 ####[facility] [address] [place], [address] GFR/1.73 sq M.predicted among non-blacks MDRD (S/P/Bld) [Vol rate/Area] 96 mL/min/{1.73_m2} Normal >60 [facility] Comment on above: Result Comment: mL/m in/1.73m2 CKD-EPI Creatinine Equation (2020) Performed By: #### L 500.2500, L505.5000, L501.9100, L100.0100 ####[facility] [address] [place], [address] Glucose [Mass/Vol] 103 mg/dL High 70-99 [facility] Comment on above: Performed By: #### L 500.2500, L505.5000, L501.9100, L100.0100 ####[facility] [address] [place], [address] Potassium [Moles/Vol] 2.9 mmol/L Low 3.3-5.1 [facility] Comment on above: Performed By: #### L 500.2500, L505.5000, L501.9100, L100.0100 ####[facility] [address] [place], [address] Sodium [Moles/Vol] 141 mmol/L Normal 133-145 [facility] Comment on above: Performed By: #### L 500.2500, L505.5000, L501.9100, L100.0100 ####[facility] [address] [place], [address] Urea nitrogen [Mass/Vol] 9 mg/dL Normal 4-19 [facility] Comment on above: Performed By: #### L 500.2500, L505.5000, L501.9100, L100.0100 ####[facility] [address] [place], [address] Basophil percentageOrdered B y: Alexsander Mckenna on 09-03-2024 Basophils/100 WBC (Bld) 0.5 % 0-1 [facility] CBC W/Diff, Automatedon 04-0 Absolute Lymph 1.66 X10 3/uL Normal 0.83-4.51 [facility] Comment on above: Performed By: #### L 500.2500, L505.5000, L501.9100, L100.0100 ####[facility] [address] [place], [address] Absolute Neut 8.5 X10 3/uL High 2.0-7.7 [facility] Comment on above: Performed By: #### L 500.2500, L505.5000, L501.9100, L100.0100 ####[facility] [address] [place], [address] Basophils/100 WBC (Bld) 0.5 % Normal 0-1 [facility] Comment on above: Performed By: #### L 500.2500, L505.5000, L501.9100, L100.0100 ####[facility] [address] [place], [address] Eosinophils/100 WBC (Bld) 0.1 % Normal 0-5 [facility] Comment on above: Performed By: #### L 500.2500, L505.5000, L501.9100, L100.0100 ####[facility] [address] [place], [address] Erythrocyte distribution width (RBC) [Ratio] 12.1 % Normal 11.6-14.6 [facility] Comment on above: Performed By: #### L 500.2500, L505.5000, L501.9100, L100.0100 ####[facility] [address] [place], [address] Hematocrit (Bld) [Volume fraction] 44.9 % Normal 40-54 [facility] Comment on above: Performed By: #### L 500.2500, L505.5000, L501.9100, L100.0100 ####[facility] [address] [place], [address] Hemoglobin (Bld) [Mass/Vol] 16.0 g/dL Normal 13.0-16.5 [facility] Comment on above: Performed By: #### L 500.2500, L505.5000, L501.9100, L100.0100 ####[facility] [address] [place], [address] IG% 0.300 Normal 0.0-0.9 [facility] Comment on above: Result Comment: IG% - Immature Granulocytes (promyelocytes, myelocytes and metamyelocytes) > 1% indicates that a LEFT SHIFT is Present. Performed By: #### L 500.2500, L505.5000, L501.9100, L100.0100 ####[facility] [address] [place], [address] Lymphocytes/100 WBC (Bld) 15.4 % Low 19-41 [facility] Comment on above: Performed By: #### L 500.2500, L505.5000, L501.9100, L100.0100 ####[facility] [address] [place], [address] MCH (RBC) [Entitic mass] 30.9 pg Normal 27.0-32.0 [facility] Comment on above: Performed By: #### L 500.2500, L505.5000, L501.9100, L100.0100 ####[facility] [address] [place], [address] MCHC (RBC) [Mass/Vol] 35.6 g/dL Normal 32-36 [facility] Comment on above: Performed By: #### L 500.2500, L505.5000, L501.9100, L100.0100 ####[facility] [address] [place], [address] MCV (RBC) [Entitic vol] 86.7 fL Normal 80-94 [facility] Comment on above: Performed By: #### L 500.2500, L505.5000, L501.9100, L100.0100 ####[facility] [address] [place], [address] Monocytes/100 WBC (Bld) 5.0 % Normal 0-10 [facility] Comment on above: Performed By: #### L 500.2500, L505.5000, L501.9100, L100.0100 ####[facility] [address] [place], [address] Neutrophils/100 WBC (Bld) 78.7 % High 47-70 [facility] Comment on above: Performed By: #### L 500.2500, L505.5000, L501.9100, L100.0100 ####[facility] [address] [place], [address] Nucleated RBC (Bld) [#/Vol] 0 10*3/uL Normal 0-5 [facility] Comment on above: Performed By: #### L 500.2500, L505.5000, L501.9100, L100.0100 ####[facility] [address] [place], [address] Platelet mean volume (Bld) [Entitic vol] 8.7 fL Normal 6.2-12.0 [facility] Comment on above: Performed By: #### L 500.2500, L505.5000, L501.9100, L100.0100 ####[facility] [address] [place], [address] Platelets (Bld) [#/Vol] 375 10*3/uL Normal 150-450 [facility] Comment on above: Performed By: #### L 500.2500, L505.5000, L501.9100, L100.0100 ####[facility] [address] [place], [address] RBC (Bld) [#/Vol] 5.18 10*6/uL Normal 4.6-6.2 [facility] Comment on above: Performed By: #### L 500.2500, L505.5000, L501.9100, L100.0100 ####[facility] [address] [place], [address] RDW SD 38.3 fl Normal 35.1-43.9 [facility] Comment on above: Performed By: #### L 500.2500, L505.5000, L501.9100, L100.0100 ####[facility] [address] [place], [address] WBC (Bld) [#/Vol] 10.8 10*3/uL Normal 4.4-11.0 [facility] Comment on above: Performed By: #### L 500.2500, L505.5000, L501.9100, L100.0100 ####[facility] [address] [place], [address] Carbon dioxide, total [Moles /volume] in Central venous bloodOrdered By: Alexsander Mckenna on 09-03-2024 CO2 [Moles/Vol] 23.7 mmol/L 21.0-32.0 [facility] Chloride assayOrdered By: Shweta Mckenna on 09-03-2024 Chloride [Moles/Vol] 102 mmol/L 98-108 [facility] Emergency Department Summary on 09-03-2024 Emergency Department Summary [facility] Medical Records Department [address] [place] [address] Emergency Department Summary 09/03/24 MR#: [id number] Acct: [id number] Name: MAYITO FORBES Rep #: [id number] : 1985 39 From: Alexsander Mckenna DO PCP: Natasha Luciano [employer]PERVISOR Status:REG ER Location: ED HPI History of Present Illness Chief Complaint: Substance Abuse [facility] Medical History Heroin abuse Opiate withdrawal Mandible [...] Method Room Air Room Air Room Air [facility] MDM Narrative Medical decision making [...] hospitalist who agreed the patient is at ne criteria for admission at this time. The patient and/or family, caregivers express understanding. The patient and/or family, caregivers agrees with the plan. Shared decision making: I will have a discussion with the patient and or visitors regarding risk/benefits of further testing or admission. They will be made aware of of the risk/benefits inherent in this decision they w (more content not included)... Normal [facility] Eosinophil percentageOrdered By: Alexsander Mckenna on 09-03-2024 Eosinophils/100 WBC (Bld) 0.1 % 0-5 [facility] Erythrocyte distribution wid th (RBC) [Ratio]Ordered By: Alexsander Mckenna on 09-03-2024 Erythrocyte distribution width (RBC) [Entitic vol] 38.3 fL 35.1-43.9 [facility] Erythrocyte distribution wid th ratioOrdered By: Alexsander Mckenna on 09-03-2024 Erythrocyte distribution width (RBC) [Ratio] 12.1 % 11.6-14.6 [facility] Estimation of creatinine zuleyka aranceOrdered By: Alexsander Mckenna on 09-03-2024 Estimated Creatinine Clearance Calc 97.23 ml/min 50-250 [facility] Ethanol [Mass/Vol]Ordered By : Alexsander Mckenna on 09-03-2024 Ethyl Alcohol Level < 10.1 mg/dL <10.1 [facility] Comment on above: This test is for med ical purposes only. The legal definition of intoxication varies according to local law. GFR/1.73 sq M.predicted brittani g non-blacks MDRD (S/P/Bld) [Vol rate/Area]Ordered By: Alexsander Mckenna on 09-03-2024 Estimated GFR (MDRD) Non-Af Amer 96 >60 [facility] Comment on above: mL/min/1.73m2 CKD-EP I Creatinine Equation (2020) Hematocrit Auto (Bld) [Volum e fraction]Ordered By: Alexsander Mckenna on 09-03-2024 Hematocrit (Bld) [Volume fraction] 44.9 % 40-54 [facility] Hemoglobin measurementOrdere d By: Alexsander Mckenna on 09-03-2024 Hemoglobin (Bld) [Mass/Vol] 16.0 g/dL 13.0-16.5 [facility] Immature granulocytes/100 WB C Auto (Bld)Ordered By: Alexsander Mckenna on 09-03-2024 Immature granulocytes/100 WBC (Bld) 0.300 % 0.0-0.9 [facility] Comment on above: IG% - Immature Granu locytes (promyelocytes, myelocytes and metamyelocytes) > 1% indicates that a LEFT SHIFT is Present. Lymphocytes Auto (Unsp spec) [#/Vol]Ordered By: Alexsander Mckenna on 09-03-2024 Lymphocytes (Bld) [#/Vol] 1.66 10*3/uL 0.83-4.51 [facility] Lymphocytes/100 WBC Auto (Un sp spec)Ordered By: Alexsander Mckenna on 09-03-2024 Lymphocytes/100 WBC (Bld) 15.4 % Low 19-41 [facility] MCV (mean corpuscular volume ) determinationOrdered By: Alexsander Mckenna on 09-03-2024 MCV (RBC) [Entitic vol] 86.7 fL 80-94 [facility] Mean corpuscular hemoglobin (MCH) determinationOrdered By: Alexsander Mckenna on 09-03-2024 MCH (RBC) [Entitic mass] 30.9 pg 27.0-32.0 [facility] Mean corpuscular hemoglobin concentration (MCHC) determinationOrdered By: Alexsander Mckenna on 09-03-2024 MCHC (RBC) [Mass/Vol] 35.6 g/dL 32-36 [facility] Mean platelet volume determi nationOrdered By: Alexsander Mckenna on 09-03-2024 Platelet mean volume (Bld) [Entitic vol] 8.7 fL 6.2-12.0 [facility] Methadone, urineOrdered By: Alexsander Mckenna on 09-03-2024 Urine Methadone Screen Negative < 300 ng/mL [facility] Monocyte percentageOrdered B y: Alexsander Mckenna on 09-03-2024 Monocytes/100 WBC (Bld) 5.0 % 0-10 [facility] Neutrophil percentageOrdered By: Alexsander Mckenna on 09-03-2024 Neutrophils/100 WBC (Bld) 78.7 % High 47-70 [facility] No Panel InformationOrdered By: Alexsander Mckenna on 09-03-2024 Urine Buprenorphine Qualitative Negative < 200 ng/mL [facility] Urine Oxycodone Screen Negative < 100 ng/mL [facility] Nucleated red blood cell per centageOrdered By: Alexsander Mckenna on 09-03-2024 Nucleated RBC/100 WBC (Bld) [Ratio] 0 % 0-5 [facility] Platelet countOrdered By: dalila Mckenna on 09-03-2024 Platelets (Bld) [#/Vol] 375 10*3/uL 150-450 [facility] Potassium (Unsp spec) [Mass/ Vol]Ordered By: Alexsander Mckenna on 09-03-2024 Potassium [Moles/Vol] 2.9 mmol/L Low 3.3-5.1 [facility] Quantitative urine opiates m easurementOrdered By: Alexsander Mckenna on 09-03-2024 Opiates Ql (U) Negative < 300 ng/mL [facility] RBC Auto (Bld) [#/Vol]Ordere d By: Alexsander Mckenna on 09-03-2024 RBC (Bld) [#/Vol] 5.18 10*6/uL 4.6-6.2 [facility] Serum creatinine measurement (mass/volume)Ordered By: Alexsander Mckenna on 09-03-2024 Creatinine [Mass/Vol] 1.02 mg/dL 0.70-1.20 [facility] Serum glucose measurement (m ass/volume)Ordered By: Alexsander Mckenna on 09-03-2024 Glucose [Mass/Vol] 103 mg/dL High 70-99 [facility] Serum or plasma calcium kirsty urement (mass/volume)Ordered By: Alexsander Mckenna on 09-03-2024 Calcium [Mass/Vol] 9.7 mg/dL 7.6-11.0 [facility] Serum or plasma urea nitroge n measurement (mass/volume)Ordered By: Alexsander Mckenna on 09-03-2024 Urea nitrogen [Mass/Vol] 9 mg/dL 4-19 [facility] Sodium levelOrdered By: Shayan Mckenna on 09-03-2024 Sodium [Moles/Vol] 141 mmol/L 133-145 [facility] Urine Drug Screen (VISTA)on 09-03-2024 AMPHETAMINES Negative Normal <1000 ng/mL [facility] Comment on above: Performed By: #### L 500.2500, L505.5000, L501.9100, L100.0100 ####[facility] [address] [place], [place], [id number] BARBITIURATES Negative Normal < 200 ng/mL [facility] Comment on above: Performed By: #### L 500.2500, L505.5000, L501.9100, L100.0100 ####[facility] [address] [place], [address] BENZODIAZIPINE Negative Normal < 200 ng/mL [facility] Comment on above: Performed By: #### L 500.2500, L505.5000, L501.9100, L100.0100 ####[facility] [address] [place], [address] BUP Ur Drug Scr Negative Normal < 200 ng/mL [facility] Comment on above: Performed By: #### L 500.2500, L505.5000, L501.9100, L100.0100 ####[facility] [address] [place], [place], [phone] COCAINE Negative Normal < 300 ng/mL [facility] Comment on above: Performed By: #### L 500.2500, L505.5000, L501.9100, L100.0100 ####[facility] [address] [place], [place], [phone] Fentanyl Positive Normal [facility] Comment on above: Result Comment: If c onfirmation testing is needed, a separate order will be required to send out testing to the reference laboratory. Performed By: #### L 500.2500, L505.5000, L501.9100, L100.0100 ####[facility] [address] [place], [place], [phone] METHADONE Negative Normal < 300 ng/mL [facility] Comment on above: Performed By: #### L 500.2500, L505.5000, L501.9100, L100.0100 ####[facility] [address] [place], [place], [phone] OPIATES Negative Normal < 300 ng/mL [facility] Comment on above: Performed By: #### L 500.2500, L505.5000, L501.9100, L100.0100 ####[facility] [address] [place], [place], [phone] OXYCODONE Negative Normal < 100 ng/mL [facility] Comment on above: Performed By: #### L 500.2500, L505.5000, L501.9100, L100.0100 ####[facility] [address] [place], [address] PCP Negative Normal < 25 ng/mL [facility] Comment on above: Performed By: #### L 500.2500, L505.5000, L501.9100, L100.0100 ####[facility] [address] [place], [address] THC Positive Normal < 50 ng/mL [facility] Comment on above: Result Comment: If c onfirmation testing is needed, a separate order will be required to send out testing to the reference laboratory. Performed By: #### L 500.2500, L505.5000, L501.9100, L100.0100 ####[facility] [address] [place], [address] Urine benzodiazepine levelOr dered By: Alexsander Mckenna on 09-03-2024 Benzodiazepines Ql (U) Negative < 200 ng/mL [facility] Urine cocaine levelOrdered B y: Alexsander Mckenna on 09-03-2024 Cocaine Ql (U) Negative < 300 ng/mL [facility] Urine eijph-4-xjcmrdabeblhrk abinol (THC) measurementOrdered By: Alexsander Mckenna on 09-03-2024 Cannabinoids Screen Ql (U) Positive < 50 ng/mL [facility] Comment on above: If confirmation test ing is needed, a separate order will be required to send out testing to the reference laboratory. Urine phencyclidine (PCP) de tectionOrdered By: Alexsander Mckenna on 09-03-2024 Phencyclidine Ql (U) Negative < 25 ng/mL [facility] White blood cell (WBC) count Ordered By: Alexsander Mckenna on 09-03-2024 WBC (Bld) [#/Vol] 10.8 10*3/uL 4.4-11.0 [facility] fentaNYL Screen Ql (U)Ordere d By: Alexsander Mckenna on 09-03-2024 Urine Fentanyl Screen Positive [facility] Comment on above: If confirmation test ing is needed, a separate order will be required to send out testing to the reference laboratory. 12 Lead EKGon 09-01-2024 12 Lead EKG [facility] Cardiovascular Services [address] [place] [address] 12 Lead EKG 09/01/24 1038 MR#: [id number] Acct: [id number] Name: MAYITO FORBES Rep #: [id number] : 1985 39 From: Man Burrell MD [...] ECG Confirmed by SEPIDEH NEGRETE, RAFAEL ([id number]), video editor JAMIL TIJERINA ([id number]) on 09/03/2024 5:59:08 AM Referred By: Confirmed By: RAFAEL BURRELL MD 09/03/24 0559 Date Man Burrell MD CC: Dr. Chemo Dunlap, ; Natasha Luciano NP Signed Normal [facility] Absolute neutrophil countOrd ered By: Chemo Dunlap on 09-01-2024 Neutrophils (Bld) [#/Vol] 16.1 10*3/uL High 2.0-7.7 [facility] Alcohol, Blood (Medical)-Ser umon 09-01-2024 SERUM ETOH < 10.1 Normal <=10.0 [facility] Comment on above: Result Comment: This test is for medical purposes only. The legal definition of intoxication varies according to local law. Performed By: #### L 501.9100, L505.5000 ####[facility] [address] [place], [address] Anion gap in Serum or Plasma Ordered By: Chemo Dunlap on 09-01-2024 Anion gap [Moles/Vol] 18 mmol/L High 5-15 [facility] BUN/creatinine ratioOrdered By: Chemolizzie Dunlap on 09-01-2024 Urea nitrogen/Creatinine [Mass ratio] 8.2 mg/mg Low 10-20 [facility] Basic Metabolic Profile (BMP )on 09-01-2024 BUN/CRE 8.2 RATIO Low 10-20 [facility] Comment on above: Performed By: #### L 100.0100, L500.2500 #### [facility] [address] [place], [address] Calcium [Mass/Vol] 10.2 mg/dL Normal 7.6-11.0 [facility] Comment on above: Performed By: #### L 100.0100, L500.2500 #### [facility] [address] [place], [address] Chloride [Moles/Vol] 105 mmol/L Normal 98-108 [facility] Comment on above: Performed By: #### L 100.0100, L500.2500 #### [facility] [address] [place], [address] CO2 [Moles/Vol] 17.9 mmol/L Low 21.0-32.0 [facility] Comment on above: Performed By: #### L 100.0100, L500.2500 #### [facility] [address] [place], [address] Creatinine [Mass/Vol] 1.06 mg/dL Normal 0.70-1.20 [facility] Comment on above: Performed By: #### L 100.0100, L500.2500 #### [facility] [address] [place], [address] ECRCL 93.56 ml/min Normal 50-250 [facility] Comment on above: Performed By: #### L 100.0100, L500.2500 #### [facility] [address] [place], [address] GAP 18 High 5-15 [facility] Comment on above: Performed By: #### L 100.0100, L500.2500 #### [facility] [address] [place], [address] GFR/1.73 sq M.predicted among non-blacks MDRD (S/P/Bld) [Vol rate/Area] 92 mL/min/{1.73_m2} Normal >60 [facility] Comment on above: Result Comment: mL/m in/1.73m2 CKD-EPI Creatinine Equation (2020) Performed By: #### L 100.0100, L500.2500 #### [facility] [address] [place], [address] Glucose [Mass/Vol] 146 mg/dL High 70-99 [facility] Comment on above: Performed By: #### L 100.0100, L500.2500 #### [facility] [address] [place], [address] Potassium [Moles/Vol] 3.8 mmol/L Normal 3.3-5.1 [facility] Comment on above: Performed By: #### L 100.0100, L500.2500 #### [facility] [address] [place], [address] Sodium [Moles/Vol] 141 mmol/L Normal 133-145 [facility] Comment on above: Performed By: #### L 100.0100, L500.2500 #### [facility] [address] [place], [address] Urea nitrogen [Mass/Vol] 9 mg/dL Normal 4-19 [facility] Comment on above: Performed By: #### L 100.0100, L500.2500 #### [facility] [address] [place], [address] Basophil percentageOrdered B y: Chemo Dunlap on 09-01-2024 Basophils/100 WBC (Bld) 0.3 % 0-1 [facility] CBC W/Diff, Automatedon Absolute Lymph 1.01 X10 3/uL Normal 0.83-4.51 [facility] Comment on above: Performed By: #### L 100.0100, L500.2500 ####[facility] [address] [place], [address] Absolute Neut 16.1 X10 3/uL High 2.0-7.7 [facility] Comment on above: Performed By: #### L 100.0100, L500.2500 ####[facility] [address] [place], [address] Basophils/100 WBC (Bld) 0.3 % Normal 0-1 [facility] Comment on above: Performed By: #### L 100.0100, L500.2500 ####[facility] [address] [place], [address] Eosinophils/100 WBC (Bld) 0.0 % Normal 0-5 [facility] Comment on above: Performed By: #### L 100.0100, L500.2500 ####[facility] [address] [place], [address] Erythrocyte distribution width (RBC) [Ratio] 11.9 % Normal 11.6-14.6 [facility] Comment on above: Performed By: #### L 100.0100, L500.2500 ####[facility] [address] [place], [address] Hematocrit (Bld) [Volume fraction] 46.7 % Normal 40-54 [facility] Comment on above: Performed By: #### L 100.0100, L500.2500 ####[facility] [address] [place], [address] Hemoglobin (Bld) [Mass/Vol] 16.9 g/dL High 13.0-16.5 [facility] Comment on above: Performed By: #### L 100.0100, L500.2500 ####[facility] [address] [place], [address] IG% 0.400 Normal 0.0-0.9 [facility] Comment on above: Result Comment: IG% - Immature Granulocytes (promyelocytes, myelocytes and metamyelocytes) > 1% indicates that a LEFT SHIFT is Present. Performed By: #### L 100.0100, L500.2500 ####[facility] [address] [place], [address] Lymphocytes/100 WBC (Bld) 5.6 % Low 19-41 [facility] Comment on above: Performed By: #### L 100.0100, L500.2500 ####[facility] [address] [place], [address] MCH (RBC) [Entitic mass] 31.0 pg Normal 27.0-32.0 [facility] Comment on above: Performed By: #### L 100.0100, L500.2500 ####[facility] [address] [place], [address] MCHC (RBC) [Mass/Vol] 36.2 g/dL High 32-36 [facility] Comment on above: Performed By: #### L 100.0100, L500.2500 ####[facility] [address] [place], [address] MCV (RBC) [Entitic vol] 85.5 fL Normal 80-94 [facility] Comment on above: Performed By: #### L 100.0100, L500.2500 ####[facility] [address] [place], [address] Monocytes/100 WBC (Bld) 4.3 % Normal 0-10 [facility] Comment on above: Performed By: #### L 100.0100, L500.2500 ####[facility] [address] [place], [address] Neutrophils/100 WBC (Bld) 89.4 % High 47-70 [facility] Comment on above: Performed By: #### L 100.0100, L500.2500 ####[facility] [address] [place], [address] Nucleated RBC (Bld) [#/Vol] 0 10*3/uL Normal 0-5 [facility] Comment on above: Performed By: #### L 100.0100, L500.2500 ####[facility] [address] [place], [address] Platelet mean volume (Bld) [Entitic vol] 9.0 fL Normal 6.2-12.0 [facility] Comment on above: Performed By: #### L 100.0100, L500.2500 ####[facility] [address] [place], [address] Platelets (Bld) [#/Vol] 445 10*3/uL Normal 150-450 [facility] Comment on above: Performed By: #### L 100.0100, L500.2500 ####[facility] [address] [place], [address] RBC (Bld) [#/Vol] 5.46 10*6/uL Normal 4.6-6.2 [facility] Comment on above: Performed By: #### L 100.0100, L500.2500 ####[facility] [address] [place], [address] RDW SD 37.0 fl Normal 35.1-43.9 [facility] Comment on above: Performed By: #### L 100.0100, L500.2500 ####[facility] [address] [place], [address] WBC (Bld) [#/Vol] 18.1 10*3/uL High 4.4-11.0 [facility] Comment on above: Performed By: #### L 100.0100, L500.2500 ####[facility] [address] [place], [address] Carbon dioxide, total [Moles /volume] in Central venous bloodOrdered By: Chemo Dunlap on 09-01-2024 CO2 [Moles/Vol] 17.9 mmol/L Low 21.0-32.0 [facility] Chloride assayOrdered By: Abdi Dunlap on 09-01-2024 Chloride [Moles/Vol] 105 mmol/L 98-108 [facility] Emergency Department Summary on 09-01-2024 Emergency Department Summary [facility] Medical Records Department [address] [place] [address] Emergency Department Summary 09/01/24 MR#: [id number] Acct: [id number] Name: MAYITO FORBES Rep #: [id number] : 1985 39 From: Chemo Dunlap DO PCP: Natasha Luciano [employer]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 Normal [facility] Eosinophil percentageOrdered By: Chemo Dunlap on 09-01-2024 Eosinophils/100 WBC (Bld) 0.0 % 0-5 [facility] Erythrocyte distribution wid th (RBC) [Ratio]Ordered [facility]: [facility]-20[facility] Erythrocyte distribution width (RBC) [Entitic vol] 37.0 fL 35.1-43.9 [facility] Erythrocyte distribution wid th ratioOrdered By: Chemo Germán on 09-01-2024 Erythrocyte distribution width (RBC) [Ratio] 11.9 % 11.6-14.6 [facility] Estimation of creatinine zuleyka aranceOrdered By: Chemolizzie Dunlap on 09-01-2024 Estimated Creatinine Clearance Calc 93.56 ml/min 50-250 [facility] Ethanol [Mass/Vol]Ordered By : Chemo Dunlap on 09-01-2024 Ethyl Alcohol Level < 10.1 mg/dL <10.1 [facility] Comment on above: This test is for med ical purposes only. The legal definition of intoxication varies according to local law. GFR/1.73 sq M.predicted brittani g non-blacks MDRD (S/P/Bld) [Vol rate/Area]Ordered By: Chemo Dunlap on 09-01-2024 Estimated GFR (MDRD) Non-Af Amer 92 >60 [facility] Comment on above: mL/min/1.73m2 CKD-EP I Creatinine Equation (2020) Hematocrit Auto (Bld) [Volum e fraction]Ordered By: Chemo Germán on 09-01-2024 Hematocrit (Bld) [Volume fraction] 46.7 % 40-54 [facility] Hemoglobin measurementOrdere d By: Chemo Dunlap on 09-01-2024 Hemoglobin (Bld) [Mass/Vol] 16.9 g/dL High 13.0-16.5 [facility] Immature granulocytes/100 WB C Auto (Bld)Ordered By: Chemo Dunlap on 09-01-2024 Immature granulocytes/100 WBC (Bld) 0.400 % 0.0-0.9 [facility] Comment on above: IG% - Immature Granu locytes (promyelocytes, myelocytes and metamyelocytes) > 1% indicates that a LEFT SHIFT is Present. Lymphocytes Auto (Unsp spec) [#/Vol]Ordered By: Chemo Dunlap on 09-01-2024 Lymphocytes (Bld) [#/Vol] 1.01 10*3/uL 0.83-4.51 [facility] Lymphocytes/100 WBC Auto (Un sp spec)Ordered By: Chemo Dunlap on 09-01-2024 Lymphocytes/100 WBC (Bld) 5.6 % Low 19-41 [facility] MCV (mean corpuscular volume ) determinationOrdered By: Chemo Dunlap on 09-01-2024 MCV (RBC) [Entitic vol] 85.5 fL 80-94 [facility] Mean corpuscular hemoglobin (MCH) determinationOrdered By: Chemo Dunlap on 09-01-2024 MCH (RBC) [Entitic mass] 31.0 pg 27.0-32.0 [facility] Mean corpuscular hemoglobin concentration (MCHC) determinationOrdered By: Chemo Dunlap on 09-01-2024 MCHC (RBC) [Mass/Vol] 36.2 g/dL High 32-36 [facility] Mean platelet volume determi nationOrdered By: Chemo Dunlap on 09-01-2024 Platelet mean volume (Bld) [Entitic vol] 9.0 fL 6.2-12.0 [facility] Monocyte percentageOrdered B y: Chemo Dunlap on 09-01-2024 Monocytes/100 WBC (Bld) 4.3 % 0-10 [facility] Neutrophil percentageOrdered By: Chemo Dunlap on 09-01-2024 Neutrophils/100 WBC (Bld) 89.4 % High 47-70 [facility] Nucleated red blood cell per centageOrdered By: Chemo Dunlap on 09-01-2024 Nucleated RBC/100 WBC (Bld) [Ratio] 0 % 0-5 [facility] Platelet countOrdered By: Abdi Dunlap on 09-01-2024 Platelets (Bld) [#/Vol] 445 10*3/uL 150-450 [facility] Potassium (Unsp spec) [Mass/ Vol]Ordered By: Chemo Dunlap on 09-01-2024 Potassium [Moles/Vol] 3.8 mmol/L 3.3-5.1 [facility] RBC Auto (Bld) [#/Vol]Ordere d By: Chemo Dunlap on 09-01-2024 RBC (Bld) [#/Vol] 5.46 10*6/uL 4.6-6.2 [facility] Serum creatinine measurement (mass/volume)Ordered By: Chemo Dunlap on 09-01-2024 Creatinine [Mass/Vol] 1.06 mg/dL 0.70-1.20 [facility] Serum glucose measurement (m ass/volume)Ordered By: Chemo Dunlap on 09-01-2024 Glucose [Mass/Vol] 146 mg/dL High 70-99 [facility] Serum or plasma calcium kirsty urement (mass/volume)Ordered By: Chemo Brito on 09-01-2024 Calcium [Mass/Vol] 10.2 mg/dL 7.6-11.0 [facility] Serum or plasma urea nitroge n measurement (mass/volume)Ordered By: Chemo Dunlap on 09-01-2024 Urea nitrogen [Mass/Vol] 9 mg/dL 4-19 [facility] Sodium levelOrdered By: Zach Dunlap on 09-01-2024 Sodium [Moles/Vol] 141 mmol/L 133-145 [facility] Urine Drug Screen (VISTA)on 09-01-2024 AMPHETAMINES Normal <1000 ng/mL [facility] Comment on above: Result Comment: PT H BEEN DISCHARGED FROM ED Performed By: #### L 501.9100, L505.5000 ####[facility] [address] [facility] [address] BARBITIURATES Normal < 200 ng/mL [facility] Comment on above: Result Comment: PT H BEEN DISCHARGED FROM ED Performed By: #### L 501.9100, L505.5000 ####[facility] [address] [place], [address] BENZODIAZIPINE Normal < 200 ng/mL [facility] Comment on above: Result Comment: PT H BEEN DISCHARGED FROM ED Performed By: #### L 501.9100, L505.5000 ####[facility] [address] [place], [address] BUP Ur Drug Scr Normal < 200 ng/mL [facility] Comment on above: Result Comment: PT H BEEN DISCHARGED FROM ED Performed By: #### L 501.9100, L505.5000 ####[facility] [address] [place], [address] COCAINE Normal < 300 ng/mL [facility] Comment on above: Result Comment: PT H BEEN DISCHARGED FROM ED Performed By: #### L 501.9100, L505.5000 ####[facility] [address] [place], [address] Fentanyl Normal [facility] Comment on above: Result Comment: PT H BEEN DISCHARGED FROM ED Performed By: #### L 501.9100, L505.5000 ####[facility] [address] [place], [address] METHADONE Normal < 300 ng/mL [facility] Comment on above: Result Comment: PT H BEEN DISCHARGED FROM ED Performed By: #### L 501.9100, L505.5000 ####[facility] [address] [place], [address] OPIATES Normal < 300 ng/mL [facility] Comment on above: Result Comment: PT H BEEN DISCHARGED FROM ED Performed By: #### L 501.9100, L505.5000 ####[facility] [address] [place], [address] OXYCODONE Normal < 100 ng/mL [facility] Comment on above: Result Comment: PT H BEEN DISCHARGED FROM ED Performed By: #### L 501.9100, L505.5000 ####[facility] [address] [place], [address] PCP Normal < 25 ng/mL [facility] Comment on above: Result Comment: PT H BEEN DISCHARGED FROM ED Performed By: #### L 501.9100, L505.5000 ####[facility] [address] [place], [address] THC Normal < 50 ng/mL [facility] Comment on above: Result Comment: PT H BEEN DISCHARGED FROM ED Performed By: #### L 501.9100, L505.5000 ####[facility] [address] [place], [address] White blood cell (WBC) count Ordered By: Chemo Dunlap on 09-01-2024 WBC (Bld) [#/Vol] 18.1 10*3/uL High 4.4-11.0 [facility] ED Nursing Noteon 08-14-2024 ED Nursing Note Spoke with Kristy at [facility] who states that they do not have a bed for the patient and they do not know when they will get a bed. She states that they will call when they have a bed [facility] [phone] 08-13-2024 [id number] Notified that jenni snell was OON with insurance and needs transferred to in-network facility when medically stable. Did discuss with ER attending and patient already admitted to [facility]. Did send epic chat updating him of this and provided him with in-network facility and their contact information..Electronic ally signed by Seven Maldonado RN on 08/13/2024 at 4:[address] [facility] CBC W Auto Differential pane l (Bld)Ordered By: Shakira Julio on 08-13-2024 Basophils (Bld) [#/Vol] 0 10*3/uL 0.0 - 0.2 10*3/uL [facility] Basophils/100 WBC (Bld) 0.3 % 0.0 - 2.0 % [facility] Eosinophils (Bld) [#/Vol] 0 10*3/uL 0.0 - 0.5 10*3/uL [facility] Eosinophils/100 WBC (Bld) 0.2 % 0.0 - 6.0 % [facility] Erythrocyte distribution width (RBC) [Ratio] 11.7 % 11.5 - 15.0 % [facility] Hematocrit (Bld) [Volume fraction] 45.9 % 40.0 - 52.0 % [facility] Hemoglobin (Bld) [Mass/Vol] 16.9 g/dL 13.0 - 18.0 g/dL [facility] Immature granulocytes (Bld) [#/Vol] 0.1 10*3/uL High NINF - 0.1 10*3/uL [facility] [employer] Immature granulocytes/100 WBC (Bld) 0.4 % 0.0 - 2.0 % [facility] Interpretation and review of laboratory results Abnormal [facility] Lymphocytes (Bld) [#/Vol] 1.1 10*3/uL 1.0 - 4.3 10*3/uL [facility] Lymphocytes/100 WBC (Bld) 9.1 % Low 15.0 - 45.0 % [facility] MCH (RBC) [Entitic mass] 31.1 pg 26. 0 - 34.0 pg [facility] MCHC (RBC) [Mass/Vol] 36.8 % High 30.5 - 36.0 % [facility] MCV (RBC) [Entitic vol] 84.4 fL 77.0 - 99.0 fL [facility] Monocytes (Bld) [#/Vol] 0.7 10*3/uL 0.0 - 0.9 10*3/uL [facility] Monocytes/100 WBC (Bld) 6.2 % 5.0 - 13.0 % [facility] Neutrophils (Bld) [#/Vol] 9.7 10*3/uL High 1.8 - 7.5 10*3/uL [facility] [employer] Neutrophils/100 WBC (Bld) 83.8 % High 38.0 - 82.0 % [facility] Nucleated RBC/100 WBC (Bld) [Ratio] 0 % [facility] Platelet mean volume (Bld) [Entitic vol] 8.9 fL Low 9.0 - 12.7 fL [facility] [employer] Platelets (Bld) [#/Vol] 392 10*3/uL 140 - 440 10*3/uL [facility] RBC (Bld) [#/Vol] 5.44 10*6/uL 4.40 - 5.9 0 10*6/uL [facility] [employer] WBC (Bld) [#/Vol] 11.6 10*3/uL High 3.6 - 10.7 10*3/uL [facility] CBC WITH AUTO DIFFERENTIALon 08-13-2024 Basophils (Bld) [#/Vol] 0.0 10*3/uL Normal 0.0-0.2 [facility] Comment on above: Performed By: #### L [id number] ####Masonry Contractor: PARTH ROWLEYGAVIN ([id number])[facility] ([facility])[address] Basophils/100 WBC (Bld) 0.3 % Normal 0.0-2.0 [facility] Comment on above: Performed By: #### L [id number] ####Masonry Contractor: PARTH ROWLEYGAVIN ([id number])[facility] ([facility])[address] Eosinophils (Bld) [#/Vol] 0.0 10*3/uL Normal 0.0-0.5 [facility] Comment on above: Performed By: #### L [id number] ####Masonry Contractor: PARTH ROWLEYGAVIN ([id number])[facility] ([facility])[address] Eosinophils/100 WBC (Bld) 0.2 % Normal 0.0-6.0 [facility] Comment on above: Performed By: #### L [id number] ####Masonry Contractor: PARTH TADEO ([id number])[facility] ([facility])[address] Erythrocyte distribution width (RBC) [Ratio] 11.7 % Normal 11.5-15.0 [facility] Comment on above: Performed By: #### L [id number] ####Masonry Contractor: PARTH TADEO ([id number])[facility] ([facility])[address] Hematocrit (Bld) [Volume fraction] 45.9 % Normal 40.0-52.0 [facility] Comment on above: Performed By: #### L [id number] ####Masonry Contractor: PARTH TADEO ([id number])[facility] ([facility])[address] Hemoglobin (Bld) [Mass/Vol] 16.9 g/dL Normal 13.0-18.0 [facility] Comment on above: Performed By: #### L [id number] ####Masonry Contractor: PARTH TADEO ([id number])[facility] ([facility])[address] IMMATURE GRANS % 0.4 % Normal 0.0-2.0 [facility] Comment on above: Performed By: #### L [id number] ####Masonry Contractor: PARTH TADEO ([id number])[facility] ([facility])[address] IMMATURE GRANS ABSOLUTE 0.1 10*3/uL High <0.1 [facility] Comment on above: Performed By: #### L [id number] ####Masonry Contractor: PARTH ROWLEYGAVIN ([id number])[facility] (SBAB)[address] Lymphocytes (Bld) [#/Vol] 1.1 10*3/uL Normal 1.0-4.3 [facility] Comment on above: Performed By: #### L [id number] ####Masonry Contractor: PARTH TADEO ([id number])[facility] Lymphocytes/100 WBC (Bld) 9.1 % Low 15.0-45.0 [facility] Comment on above: Performed By: #### L [id number] ####Masonry Contractor: PARTH TADEO ([id number])[facility] ([facility])[address] MCH (RBC) [Entitic mass] 31.1 pg Normal 26.0-34.0 [facility] Comment on above: Performed By: #### L [id number] ####Masonry Contractor: PARTH TADEO ([id number])[facility] ([facility])[address] MCHC 36.8 % High 30.5-36.0 [facility] Comment on above: Performed By: #### L [id number] ####Masonry Contractor: PARTH COMBSCER ([id number])[facility] ([facility])[address] MCV (RBC) [Entitic vol] 84.4 fL Normal 77.0-99.0 S [facility] Comment on above: Performed By: #### L [id number] ####Masonry Contractor: PARTH ROWLEYGAVIN ([id number])[facility] ([facility])[address] Monocytes (Bld) [#/Vol] 0.7 10*3/uL Normal 0.0-0.9 [facility] Comment on above: Performed By: #### L [id number] ####Masonry Contractor: PARTH BARROWJUAN MANUEL ([id number])[facility] [place] ([facility])[address] Monocytes/100 WBC (Bld) 6.2 % Normal 5.0-13.0 S [facility] Comment on above: Performed By: #### L [id number] ####Masonry Contractor: PARTH BARROWJUAN MANUEL ([id number])[facility] [place] ([facility])[address] NEUTROPHILS ABSOLUTE 9.7 10*3/uL High 1.8-7.5 [facility] Comment on above: Performed By: #### L [id number] ####Masonry Contractor: PARTH TADEO ([id number])[facility] [place] ([facility])[address] Neutrophils/100 WBC (Bld) 83.8 % High 38.0-82.0 [facility] Comment on above: Performed By: #### L [id number] ####Masonry Contractor: PARTH ROWLEYGAVIN ([id number])[facility] [place] ([facility])[address] NRBC 0.0 /100 WBCs Normal 0.0-2.[address] [facility] Comment on above: Performed By: #### L [id number] ####Masonry Contractor: PARTH BARROWMorganGAVIN ([id number])[facility]ITAL[facility] SCHWARTZ (SBHLAB)[address] Platelet mean volume (Bld) [Entitic vol] 8.9 fL Low 9.0-12.7 [facility] Comment on above: Performed By: #### L [id number] ####Masonry Contractor: PARTH CARLYLE ([id number])[facility]ITAL[facility] (SB[facility])[address] Platelets (Bld) [#/Vol] 392 10*3/uL Normal 140-440 [facility] Comment on above: Performed By: #### L [id number] ####Masonry Contractor: PARTH CARLYLE ([id number])[facility]ITAL[facility] (SB[facility]AB)[address] [place] [address] RBC (Bld) [#/Vol] 5.44 10*6/uL Normal 4.40-5.90 [facility] Comment on above: Performed By: #### L [id number] ####Masonry Contractor: PARTHSATINDER TADEO ([id number])[facility]ITALPad[facility] ([facility])[address] WBC (Bld) [#/Vol] 11.6 10*3/uL High 3.6-10.7 [facility] Comment on above: Performed By: #### L [id number] ####Masonry Contractor: PARTH TADEO ([id number])[facility]ITAL[facility] ([facility])[address] COMPLETE URINALYSISon 2024 BACTERIA (#/HPF) IN URINE Negative Normal Negative [facility] Comment on above: Performed By: #### L AB20, LAB15, LAB46 #### Masonry Contractor: LILIA KNOX ([id number]) [facility] ([facility]) [address] [place] [address] BILIRUBIN, TOTAL PRESENCE IN URINE Negative Normal Negative [facility] Comment on above: Performed By: #### L AB20, LAB15, LAB46 #### Masonry Contractor: LILIA KNOX ([id number]) [facility] ([facility] [address] [place] [address] Clarity (U) Clear Normal Clear [facility] Comment on above: Performed By: #### L AB20, LAB15, LAB46 #### Masonry Contractor: LILIA KNOX ([id number]) [facility] ([facility]) [address] [place] [address] Color (U) Yellow Normal Lt. Yellow [facility] Comment on above: Performed By: #### L AB20, LAB15, LAB46 #### Masonry Contractor: LILIA KNOX ([id number]) [facility] ([facility]) [address] [place] [address] GLUCOSE (MG/DL) IN URINE Normal Normal Nor mal (<70) [facility] Comment on above: Performed By: #### L AB20, LAB15, LAB46 #### Masonry Contractor: LILIA KNOX ([id number]) [facility] ([facility]) [address] [place] [address] HEMOGLOBIN PRESENCE IN URINE Negative Normal Negative [facility] Comment on above: Performed By: #### L AB20, LAB15, LAB46 #### Masonry Contractor: LILIA KNOX ([id number]) [facility] ([facility]) [address] [place] [address] Ketones Ql (U) >150 Abnormal Negative [facility] Comment on above: Performed By: #### L AB20, LAB15, LAB46 #### Masonry Contractor: LILIA KNOX ([id number]) [facility] ([facility]) [address] [place] [address] LEUKOCYTE ESTERASE PRESENCE IN URINE BY TEST STRIP Negative Normal Negative [facility] Comment on above: Performed By: #### L AB20, LAB15, LAB46 #### Masonry Contractor: LILIA KNOX ([id number]) [facility] ([facility]) [address] [place] [address] [place] MUCUS (#/LPF) IN URINE SEDIMENT Few Normal Negative [facility] Comment on above: Performed By: #### L AB20, LAB15, LAB46 #### Masonry Contractor: LILIA KNOX ([id number]) [facility] ([facility]) [address] [place] [address] NITRITE PRESENCE IN URINE Negative Normal Negative [facility] Comment on above: Performed By: #### L AB20, LAB15, LAB46 #### Masonry Contractor: LILIA KNOX ([id number]) [facility] ([facility]) [address] [place] [address] pH (U) 7.5 [pH] Normal 5.0-8.0 [facility] Comment on above: Performed By: #### L AB20, LAB15, LAB46 #### Masonry Contractor: LILIA KNOX ([id number]) [facility]) [address] [place] [address] Protein (U) [Mass/Vol] 50 mg/dL Abnormal Negative [facility] Comment on above: Performed By: #### Sandhya AB20, LAB15, LAB46 #### Masonry Contractor: LILIA KNOX ([id number]) [facility] ([facility]) [address] [place] [address] RBC (#/HPF) IN URINE SEDIMENT 0-2 Normal 0-2 [facility] Comment on above: Performed By: #### L AB20, LAB15, LAB46 #### Masonry Contractor: LILIA KNOX ([id number]) [facility] ([facility]) [address] [place] [address] Specific gravity (U) [Rel density] 1.030 Normal 1.005-1.030 [facility] Comment on above: Performed By: #### L AB20, LAB15, LAB46 #### Masonry Contractor: LILIA KNOX ([id number]) [facility]) [address] [place] [address] SQUAMOUS EPITHELIAL CELLS (#/HPF) IN URINE SEDIMENT 0-2 Normal 3-5 [facility] Comment on above: Performed By: #### L AB20, LAB15, LAB46 #### Masonry Contractor: LILIA KNOX ([id number]) [facility] ([facility]) [address] [place] [address] UROBILINOGEN (MG/DL) IN URINE Normal Normal Normal (0-1) [facility] Comment on above: Performed By: #### L AB20, LAB15, LAB46 #### Masonry Contractor: LILIA KNOX ([id number]) [facility] ([facility]) [address] [place] [address] WBC (LEUKOCYTE) (#/HPF) IN URINE SEDIMENT 0-2 Normal 0-5 [facility] Comment on above: Performed By: #### L AB20, LAB15, LAB46 #### Masonry Contractor: LILIA KNOX ([id number]) [facility] ([facility]) [address] [place] [address] COMPREHENSIVE METABOLIC PANE Heriberto 08-13-2024 Albumin [Mass/Vol] 4.3 g/dL Normal 3.5-5.0 [facility] Comment on above: Performed By: #### L [id number] #### Masonry Contractor: LILIA KNOX ([id number]) [facility] ([facility]) [address] [place] [address] ALP [Catalytic activity/Vol] 109 U/L Normal 40-150 [facility] Comment on above: Performed By: #### L [id number] #### Masonry Contractor: LILIA KNOX ([id number]) [facility] ([facility]) [address] [place] [address] ALT [Catalytic activity/Vol] 38 U/L Normal <40 [facility] Comment on above: Performed By: #### L [id number] #### Masonry Contractor: LILIA KNOX ([id number]) [facility] ([facility]) [address] [place] [address] Anion gap [Moles/Vol] 16 mmol/L High 3-13 [facility] Comment on above: Performed By: #### L [id number] #### Masonry Contractor: LILIA KNOX ([id number]) [facility] ([facility]) [address] [place] [address] AST [Catalytic activity/Vol] 33 U/L Normal <34 [facility] Comment on above: Performed By: #### L AB393 #### Masonry Contractor: LILIA KNOX ([id number]) [facility]) [address] [place] [address] Bilirubin [Mass/Vol] 0.8 mg/dL Normal <1.2 [facility] Comment on above: Performed By: #### L AB393 #### Masonry Contractor: LILIA KNOX ([id number]) [facility] ([facility]) [address] [place] [address] Calcium [Mass/Vol] 9.3 mg/dL Normal 8.4-10.2 [facility] Comment on above: Performed By: #### L AB393 #### Masonry Contractor: LILIA KNOX ([id number]) [facility] ([facility]) [address] [place] [address] Chloride [Moles/Vol] 106 mmol/L Normal 98-107 [facility] Comment on above: Performed By: #### L [id number] #### Masonry Contractor: LILIA KNOX ([id number]) [facility] ([facility]) [address] [place] [address] CO2 [Moles/Vol] 16 mmol/L Low 22-29 [facility] Comment on above: Performed By: #### L [id number] #### Masonry Contractor: LILIA KNOX ([id number]) [facility] ([facility]) [address] [place] [address] Creatinine [Mass/Vol] 0.80 mg/dL Normal 0.72-1.25 [facility] Comment on above: Performed By: #### L [id number] #### Masonry Contractor: LILIA KNOX ([id number]) [facility]) [address] [place] [address] GLOMERULAR FILTRATION RATE ML/MIN/1.73 SQ M.PREDICTED >90.0 Normal >60.0 [facility] Comment on above: Result Comment: Calc ulation based on the Chronic Kidney Disease Epidemiology Collaboration (CKD-EPI) equation refit without adjustment for race Performed By: #### L [id number] #### Masonry Contractor: LILIA KNOX ([id number]) [facility] ([facility]) [address] [place] [address] Glucose [Mass/Vol] 109 mg/dL High 74-100 [facility] Comment on above: Performed By: #### L [id number] #### Masonry Contractor: LILIA KNOX ([id number]) [facility] ([facility]) [address] [place] [address] Potassium [Moles/Vol] 3.7 mmol/L Normal 3.5-5.1 [facility] Comment on above: Result Comment: [facility] potassium values may be up to 0.5 mmol/L lower than serum values. Performed By: #### L AB393 #### Masonry Contractor: LILIA KNOX ([id number]) [facility] ([facility]) [address] [place] [address] Protein [Mass/Vol] 7.8 g/dL Normal 6.4-8.3 [facility] Comment on above: Performed By: #### L AB393 #### Masonry Contractor: LILIA KNOX ([id number]) [facility] ([facility]) [address] [place] [address] Sodium [Moles/Vol] 138 mmol/L Normal 136-145 [facility] Comment on above: Performed By: #### L [id number] #### Masonry Contractor: LILIA KNOX ([id number]) [facility]) [address] [place] [address] Urea nitrogen [Mass/Vol] 13 mg/dL Normal 8-21 [facility] Comment on above: Performed By: #### L [id number] #### Masonry Contractor: LILIA KNOX ([id number]) [facility] ([facility]) [address] [place] [address] Comprehensive metabolic 1998 panelon 08-13-2024 Albumin [Mass/Vol] 4.3 g/dL 3.5 - 5.0 g/dL [facility] ALP [Catalytic activity/Vol] 109 U/L 40 - 150 U/L [facility] ALT [Catalytic activity/Vol] 38 U/L NINF - 40 U/L [facility] Anion gap [Moles/Vol] 16 mmol/L High 3 - 13 mmol/L [facility] AST [Catalytic activity/Vol] 33 U/L NINF - 34 U/L [facility] Bilirubin [Mass/Vol] 0.8 mg/dL NINF - 1.2 mg/dL [facility] Calcium [Mass/Vol] 9.3 mg/dL 8.4 - 10. 2 mg/dL [facility] Chloride [Moles/Vol] 106 mmol/L 98 - 10 7 mmol/L [facility] CO2 [Moles/Vol] 16 mmol/L Low 22 - 29 mmol/L [facility] Creatinine [Mass/Vol] 0.8 mg/dL 0.72 - 1.25 mg/dL [facility] GFR/1.73 sq M.predicted (S/P/Bld) [Vol rate/Area] - PINF [facility] Comment on above: Calculation based on the Chronic Kidney Disease Epidemiology Collaboration (CKD-EPI) equation refit without adjustment for race Glucose [Mass/Vol] 109 mg/dL High 74 - 100 mg/dL [facility] Interpretation and review of laboratory results Abnormal [facility] Potassium [Moles/Vol] 3.7 mmol/L 3.5 - 5.1 mmol/L [facility] Comment on above: Plasma potassium nadir ues may be up to 0.5 mmol/L lower than serum values. Protein [Mass/Vol] 7.8 g/dL 6.4 - 8.3 g/dL [facility] Sodium [Moles/Vol] 138 mmol/L 136 - 145 mmol/L [facility] Urea nitrogen [Mass/Vol] 13 mg/dL 8 - 21 mg/dL [facility] DRUGS OF ABUSEon 08-13-2024 AMPHETAMINE SCREEN Negative Normal [facility] Comment on above: Performed By: #### L [id number] ####Masonry Contractor: PARTH TADEO ([id number])[facility] ([facility])[address] [place] [address] BARBITURATES SCREEN Negative Normal [facility] Comment on above: Performed By: #### L [id number] ####Masonry Contractor: PARTH TADEO ([id number])[facility] ([facility])[address] BENZODIAZEPINE SCREEN Negative Normal [facility] Comment on above: Performed By: #### L [id number] ####Masonry Contractor: PARTH TADEO ([id number])[facility] ([facility])[address] COCAINE METAB. SCREEN Negative Normal [facility] Comment on above: Performed By: #### L [id number] ####Masonry Contractor: PARTH TADEO ([id number])[facility] ([facility])[address] FENTANYL SCREEN, UR QUAL Positive Normal [facility] Comment on above: Result Comment: [...] under separate order. Performed By: #### L [id number] ####Masonry Contractor: PARTH TADEO ([id number])[facility] ([facility])[address] METHADONE SCREEN Negative Normal [facility] Comment on above: Performed By: #### L [id number] ####Masonry Contractor: PARTH TADEO ([id number])[facility] ([facility])[address] OPIATES SCREEN Negative Normal [facility] Comment on above: Performed By: #### L [id number] ####Masonry Contractor: PARTH TADEO ([id number])[facility] ([facility])[address] OXYCODONE SCREEN Negative Normal [facility] Comment on above: Performed By: #### L [id number] ####Masonry Contractor: PARTH TADEO ([id number])[facility] ([facility])[address] PHENCYCLIDINE SCREEN Negative Normal [facility] Comment on above: Performed By: #### L [id number] ####Masonry Contractor: PARTH TADEO ([id number])[facility]ITAL[facility] ([facility])[address] ECG 12-LEADon 08-13-2024 ECG 12-LEAD IMPRESSION: Sinus rhythm Low voltage, extremity leads Compared to ECG 04/11/2024 01:17:19 Similar Electronically Signed On 08-13-2024 09:56:42 EDT by Edgar Powers Normal [facility] ED Nursing Noteon 08-13-2024 ED Nursing Note Pt continues to have intervals of sleeping and then vomiting. PRN to be adminsitered Normal [facility] ED Nursing Note Project CORETTA is available STATE-WIDE. Narcan/Naloxone is available WITHOUT prescription at most [place] [facility]acies, including [facility], [employer], [facility], [facility], and others. It has a cost, but there is a free program through [facility] (and 47 other [facility]). A full list of pharmacies is available at the [place] Board of [employer]acy website, but calling your [...] Demetrio CORETTA is an initiative of the [facility] Opiate Task Force and is funded in part by the [facility] Alcohol, Drug Addiction and Mental Health (ADM) Services Board [facility] Alcohol, Drug Addiction & Mental Health Services [place] [id number] [email or web address] WALK-IN HOURS: Tuesdays (every hour) from 3pm [...] Give Naloxone Assemble the nasal spray Naloxone. 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 [facility] ED Provider Noteon ED Provider Note Emergency Department Encounter Location: [facility] ED Patient: Mayito Forbes : 1985 Date [...] 375 ms QTC Interval 427 ms P [place] 75 degrees QRS [place] 40 degrees T Wave [place] 66 degrees [place] Interval 164 ms SARS-CoV-2 Antigen Collection Time: [...] Was initially admitted to detox over at [facility] however patient's insurance is not in network here. Patient's insurance is in network only at [facility]. His labs are notable for mild leukocytosis 11.6, elevated ketones in his urine, UDS positive for fentanyl, no other drugs on board. Alcohol was negative. Patient received multiple medications for his opioid withdrawal. His chest x-ray was normal as well. I spoke with Dr. Montoya from [facility] who accepted the patient for transfer Medications venlafaxi (more content not included)... Normal [facility] ED Provider Note I re-inherited this patient on my shift today. After signout, it was determined that his insurance would not support and admission to [facility]. Therefore he was accepted at [facility]. However no beds have been available and he is now awaiting a bed. On my reassessment at around 1 PM today, patient looks dramatically better. He is reporting resolution of his withdrawal symptoms. He does not wish to wait any longer with no bed insight at [facility]. He wishes to be discharged. He is feeling much improved. Declines prescription for clonidine. Will prescribe Zofran. Edgar Powers MD 08/14/[address] [facility] ED Provider Note Emergency Department Encounter [...] he wishes to pursue inpatient detox at [facility]). I considered serotonin syndrome but this would [...] Medicine Edgar Powers MD 08/14/24 0706 Normal [facility] ETHANOLon 08-13-2024 ETHANOL IN SER/PLAS <10 Normal <10 [facility] Comment on above: Result Comment: ORDE R COMMENTS: SCAFFOLD SETTER depression is seen >100 mg/dL. NOTE: This result is for medical treatment only. Analysis performed using non-forensic procedures. Performed By: #### L [id number] #### Masonry Contractor: LILIA KNOX ([id number]) [facility] ([facility]) [address] [id number] [facility] Ethanol (Bld) [Mass/Vol]on 0 08-13-2024 Ethanol [Mass/Vol] mg/dL NINF - 10 mg/dL [facility] Interpretation and review of laboratory results Normal [facility] SCAFFOLD SETTER depression is se en >100 mg/dL. NOTE: This result is for medical treatment only. Analysis performed using non-forensic procedures. [facility] Laboratory - Chemistry and C hemistry - challengeon 08-13-2024 Glucose [Mass/Vol] 91 mg/dL 70 - 100 mg/dL [facility] Laboratory - Drug toxicology on 08-13-2024 Amphetamines Screen method >1000 ng/mL Ql (U) Negative [facility] Barbiturates Screen method >200 ng/mL Ql (U) [facility] Benzodiazepines Ql (U) Negative [facility] Methadone Screen Ql (U) Negative [facility] Opiates Screen Ql (U) Negative [facility] oxyCODONE Ql (U) Negative [facility] He alth Phencyclidine Ql (U) Negative [facility] Laboratory - Microbiology an d Antimicrobial susceptibilityOrdered By: Mary De Dios on 08-13-2024 SARS-CoV-2 (COVID-19) Ag IA.rapid Ql (Resp) Negative Negative [facility] Comment on above: A negative result do es not rule out the possibility of SARS-CoV-2 infection. NAAT-based methods should be considered for symptomatic patients presenting greater than seven days after onset of symptoms. Method: Lateral flow immunoassay. Fact sheets for healthcare providers and patients can be found at the following sites: https://www.fda.gov/media/943045/download https://www.fda.gov/media/190709/download No Panel Informationon 08-13 Interpretation and review of laboratory results Normal [facility] Performed by: [facility], [address] [place] [id number] CLIA ID: [id number] [facility] COCAINE METAB. SCREEN Negative [place] [employer] FENTANYL SCREEN, UR QUAL Positive [facility] The expected value f or [...] is needed, request confirmation under separate order. [facility] P Madrid 75 degrees [facility] NV Interval 164 ms [facility] QRS [place] 40 degrees [facility] QRSD Interval 82 ms [facility]alt h QT Interval 375 ms [facility] QTC Interval 427 ms [facility] T Wave [place] 66 degrees [facility] Sinus rhythm Low voltage, extremity leads Compared to ECG 04/11/2024 01:17:19 Similar Electronically Signed On 08-13-2024 09:56:42 EDT by Edgar De Souza MD - 08/13/2024 IMPRESSION: Sinus rhythm Low voltage, extremity leads Compared to ECG 04/11/2024 01:17:19 Similar Electronically Signed On 08-13-2024 09:56:42 EDT by Edgar Blackmonedisto islandgraciela [facility] SARS-COV-2 ANTIGENon 025 SARS-COV-2 ANTIGEN SARS-COV-2 ANTIGEN -BINAX Reference Negative Negative A negative result does not rule out the possibility of SARS-CoV-2 infection. NAAT-based methods should be considered for symptomatic patients presenting greater than seven days after onset of symptoms. Method: Lateral flow immunoassay. Fact sheets for healthcare providers and patients can be found at the following sites: https://www.fda.gov/med ia/699860/download https://www.fda.gov/med ia/953844/download Normal [facility] Comment on above: Performed By: #### L [id number] #### Masonry Contractor: PARTH TADEO ([id number]) [facility] ([facility]) [address] [place] [address] SARS-CoV-2 (COVID-19) Ag IA. rapid Ql (Resp)Ordered By: Mary De Dios on 08-13-2024 Interpretation and review of laboratory results Normal [facility] Urinalysis complete panel (U )on 08-13-2024 Bacteria LM.HPF (Urine sed) [#/Area] Negative Negative /HPF [facility] Bilirubin Ql (U) Negative Negative mg/dL [facility] Clarity (U) Clear Clear [facility] Color (U) Yellow Lt. Yellow [facility] Epithelial cells.squamous LM.HPF (Urine sed) [#/Area] 0-2 [facility] h Glucose Ql (U) Normal Normal (<70) mg/dL [facility] Hemoglobin Ql (U) Negative Negative mg/dL [facility] Interpretation and review of laboratory results Abnormal [facility] Ketones (U) [Mass/Vol] mg/dL Abnormal Negat tracie mg/dL [facility] Leukocyte esterase Test strip Ql (U) Negative Negative Raina/uL [facility] Mucus LM.HPF (Urine sed) [#/Area] Few Negative /LPF [facility] Nitrite Ql (U) Negative Negative [facility] th pH (U) 7.5 [pH] 5.0 - 8.0 pH [facility] Protein (U) [Mass/Vol] 50 mg/dL Abnormal Negative [facility] RBC LM.HPF (Urine sed) [#/Area] 0-2 [facility] Specific gravity (U) [Rel density] 1.03 1.005 - 1.030 [facility] Urobilinogen (U) [Mass/Vol] Normal Normal (0-1) mg/dL [facility] WBC LM.HPF (Urine sed) [#/Area] 0-2 [facility] Vital signson 08-13-2024 Heart rate 78 /min bpm [facility] XR Chest Single viewon 08-13 1. No evidence of an acute cardiopulmonary process. Report Dictated on Electronically Signed By: Jt Zaragoza MD Electronically Signed Date/Time: 08/13/2024 2:49 PM T [facility] Patient Name: MAYITO FORBES : [...] bones and soft tissues are grossly unremarkable. [facility] Jt Zaragoza MD - 08/13/2024 Patient Name: [facility] 1985 [id number] Exam Date/Time: 08/13/2024 14:32 Procedure: XR CHEST [...] Electronically Signed Date/Time: 08/13/2024 2:49 PM EDT [facility] Radiology Study observation (narrative) [facility] alth XR Chest Single viewOrdered By: Jt Zaragoza on 08-13-2024 [facility] [employer] Work Phone: Progress Noteon 04-12-2024 Progress Note Chart reviewed of ED follow up Seen in [facility] ED on 04/11/24 Reason: drug overdose Discharge instructions: PATIENT REFERRED TO: John Andrews MD [facility] [phone] Called number of record, no voicemail set [...] have for today. Thank you for choosing [facility], always remember we have same day or telehealth visits available. We encourage you to call the office if sudden health changes occur before going to ED. We have nurses available 20/12 available to help. If patient calls back, please assist with scheduling a ED follow up appointment..Electronic ally signed by Alyson Alexander LPN on 04/13/2024 at 8:02 AM Normal [facility] BASIC METABOLIC PANELon 03-30 Anion gap [Moles/Vol] 6 mmol/L Normal 3-13 [facility] Comment on above: Performed By: #### L [id number] #### Masonry Contractor: PARTH TADEO ([id number]) [facility] ([facility]) [address] Calcium [Mass/Vol] 8.9 mg/dL Normal 8.4-10.4 [facility] Comment on above: Performed By: #### L [id number] #### Masonry Contractor: PARTH TADEO ([id number]) [facility] ([facility]) [address] [place] [address] [place] Chloride [Moles/Vol] 102 mmol/L Normal 98-107 [facility] Comment on above: Performed By: #### L [id number] #### Masonry Contractor: PARTH TADEO ([id number]) [facility] ([facility]) [address] [place] [address] [place] CO2 [Moles/Vol] 27 mmol/L Normal 22-30 [facility] Comment on above: Performed By: #### L [id number] #### Masonry Contractor: PARTH TADEO ([id number]) [facility] ([facility]) [address] [place] [address] [place] Creatinine [Mass/Vol] 0.70 mg/dL Normal 0.66-1.25 [facility] Comment on above: Performed By: #### L [id number] #### Masonry Contractor: PARTH TADEO ([id number]) [facility] [address] GLOMERULAR FILTRATION RATE ML/MIN/1.73 SQ M.PREDICTED >90.0 Normal >60.0 [facility] Comment on above: Result Comment: Calc ulation based on the Chronic Kidney Disease Epidemiology Collaboration (CKD-EPI) equation refit without adjustment for race Performed By: #### L [id number] #### Masonry Contractor: PARTH TADEO ([id number]) [facility] [address] Glucose [Mass/Vol] 103 mg/dL High 70-100 [facility] Comment on above: Performed By: #### L [id number] #### Masonry Contractor: PARTH TADEO ([id number]) [facility] [address] Potassium [Moles/Vol] 4.1 mmol/L Normal 3.5-5.1 [facility] Comment on above: Performed By: #### L [id number] #### Masonry Contractor: PARTH TADEO ([id number]) [facility] [address] [place] [address] [place] Sodium [Moles/Vol] 134 mmol/L Low 135-145 [facility] Comment on above: Performed By: #### L [id number] #### Masonry Contractor: PARTH TADEO ([id number]) [facility] [address] [place] [address] [place] Urea nitrogen [Mass/Vol] 8 mg/dL Low 9-20 [facility] Comment on above: Performed By: #### L [id number] #### Masonry Contractor: PARTH TADEO ([id number]) [facility] [address] [place] [address] [facility] Basic metabolic 1998 panelon 04-11-2024 Anion gap [Moles/Vol] 6 mmol/L 3 - 13 mmol/L [facility] Calcium [Mass/Vol] 8.9 mg/dL 8.4 - 10. 4 mg/dL [facility] Chloride [Moles/Vol] 102 mmol/L 98 - 10 7 mmol/L [facility] CO2 [Moles/Vol] 27 mmol/L 22 - 30 mmol/L [facility] Creatinine [Mass/Vol] 0.7 mg/dL 0.66 - 1.25 mg/dL [facility] GFR/1.73 sq M.predicted (S/P/Bld) [Vol rate/Area] - PINF [facility] Comment on above: Calculation based on the Chronic Kidney Disease Epidemiology Collaboration (CKD-EPI) equation refit without adjustment for race Glucose [Mass/Vol] 103 mg/dL High 70 - 100 mg/dL [facility] Interpretation and review of laboratory results Abnormal [facility] Potassium [Moles/Vol] 4.1 mmol/L 3.5 - 5.1 mmol/L [facility] Sodium [Moles/Vol] 134 mmol/L Low 135 - 145 mmol/L [facility] Urea nitrogen [Mass/Vol] 8 mg/dL Low 9 - 20 mg/dL [facility] CBC W Auto Differential pane l (Bld)Ordered By: Mark Estrella on 04-11-2024 Basophils (Bld) [#/Vol] 0 10*3/uL 0.0 - 0.2 10*3/uL [facility] Basophils/100 WBC (Bld) 0.2 % 0.0 - 2.0 % [facility] Eosinophils (Bld) [#/Vol] 0.1 10*3/uL 0.0 - 0.5 10*3/uL [facility] Eosinophils/100 WBC (Bld) 0.8 % 0.0 - 6.0 % [facility] Erythrocyte distribution width (RBC) [Ratio] 12.2 % 11.5 - 15.0 % [facility] Hematocrit (Bld) [Volume fraction] 45.1 % 40.0 - 52.0 % [facility] Hemoglobin (Bld) [Mass/Vol] 16 g/dL 13.0 - 18.0 g/dL [facility] Immature granulocytes (Bld) [#/Vol] 0.1 10*3/uL High NINF - 0.1 10*3/uL [facility] [employer] Immature granulocytes/100 WBC (Bld) 0.4 % 0.0 - 2.0 % [facility] Interpretation and review of laboratory results Abnormal [facility] Lymphocytes (Bld) [#/Vol] 0.8 10*3/uL Low 1.0 - 4.3 10*3/uL [facility] Lymphocytes/100 WBC (Bld) 6.5 % Low 15.0 - 45.0 % [facility] MCH (RBC) [Entitic mass] 31 pg 26. 0 - 34.0 pg [facility] MCHC (RBC) [Mass/Vol] 35.5 % 30.5 - 36.0 % [facility] MCV (RBC) [Entitic vol] 87.4 fL 77.0 - 99.0 fL [facility] Monocytes (Bld) [#/Vol] 0.9 10*3/uL 0.0 - 0.9 10*3/uL [facility] Monocytes/100 WBC (Bld) 6.9 % 5.0 - 13.0 % [facility] Neutrophils (Bld) [#/Vol] 10.4 10*3/uL High 1.8 - 7.5 10*3/uL [facility] [employer] Neutrophils/100 WBC (Bld) 85.2 % High 38.0 - 82.0 % [facility] Nucleated RBC/100 WBC (Bld) [Ratio] 0 % [facility] [employer] Platelet mean volume (Bld) [Entitic vol] 8.7 fL Low 9.0 - 12.7 fL [facility] [employer] Platelets (Bld) [#/Vol] 323 10*3/uL 140 - 440 10*3/uL [facility] RBC (Bld) [#/Vol] 5.16 10*6/uL 4.40 - 5.9 0 10*6/uL [facility] WBC (Bld) [#/Vol] 12.3 10*3/uL High 3.6 - 10.7 10*3/uL [facility] CBC WITH AUTO DIFFERENTIALon 04-11-2024 Basophils (Bld) [#/Vol] 0.0 10*3/uL Normal 0.0-0.2 [facility] Comment on above: Performed By: #### L [id number] #### Masonry Contractor: LILIA KNOX ([id number]) [facility] ([facility]) [address] [place] [address] Basophils/100 WBC (Bld) 0.2 % Normal 0.0-2.0 [facility] Comment on above: Performed By: #### L [id number] #### Masonry Contractor: LILIA KNOX ([id number]) [facility] ([facility]) [address] [place] [address] Eosinophils (Bld) [#/Vol] 0.1 10*3/uL Normal 0.0-0.5 [facility] Comment on above: Performed By: #### L [id number] #### Masonry Contractor: LILIA KNOX ([id number]) [facility]) [address] [place] [address] Eosinophils/100 WBC (Bld) 0.8 % Normal 0.0-6.0 [facility] Comment on above: Performed By: #### L [id number] #### Masonry Contractor: LILIA KNOX ([id number]) [facility] ([facility]) [address] [place] [address] Erythrocyte distribution width (RBC) [Ratio] 12.2 % Normal 11.5-15.0 [facility] Comment on above: Performed By: #### L [id number] #### Masonry Contractor: LILIA KNOX ([id number]) [facility]) [address] [place] [address] Hematocrit (Bld) [Volume fraction] 45.1 % Normal 40.0-52.0 [facility] Comment on above: Performed By: #### L [id number] #### Masonry Contractor: LILIA KNOX ([id number]) [facility]) [address] [place] [address] Hemoglobin (Bld) [Mass/Vol] 16.0 g/dL Normal 13.0-18.0 [facility] Comment on above: Performed By: #### L [id number] #### Masonry Contractor: LILIA KNOX ([id number]) [facility] [address] [place] [address] IMMATURE GRANS % 0.4 % Normal 0.0-2.0 [facility] Comment on above: Performed By: #### L [id number] #### Masonry Contractor: LILIA KNOX ([id number]) [facility]) [address] [place] [address] IMMATURE GRANS ABSOLUTE 0.1 10*3/uL High <0.1 [facility] Comment on above: Performed By: #### L [id number] #### Masonry Contractor: LILIA KNOX ([id number]) [facility]) [address] [place] [address] Lymphocytes (Bld) [#/Vol] 0.8 10*3/uL Low 1.0-4.3 [facility] Comment on above: Performed By: #### L [id number] #### Masonry Contractor: LILIA KNOX ([id number]) [facility]) [address] [place] [address] Lymphocytes/100 WBC (Bld) 6.5 % Low 15.0-45.0 [facility] Comment on above: Performed By: #### L [id number] #### Masonry Contractor: LILIA KNOX ([id number]) [facility]) [address] [place] [address] MCH (RBC) [Entitic mass] 31.0 pg Normal 26.0-34.0 [facility] Comment on above: Performed By: #### L [id number] #### Masonry Contractor: LILIA KNOX ([id number]) [facility]) [address] [place] [address] MCHC 35.5 % Normal 30.5-36.0 [facility] Comment on above: Performed By: #### L [id number] #### Masonry Contractor: LILIA KNOX ([id number]) [facility]) [address] [place] [address] MCV (RBC) [Entitic vol] 87.4 fL Normal 77.0-99.0 [facility] Comment on above: Performed By: #### L [id number] #### Masonry Contractor: LILIA KNOX ([id number]) [facility] ([facility]) [address] [place] [address] Monocytes (Bld) [#/Vol] 0.9 10*3/uL Normal 0.0-0.9 [facility] Comment on above: Performed By: #### L [id number] #### Masonry Contractor: LILIA KNOX ([id number]) [facility] ([facility]) [address] [place] [address] Monocytes/100 WBC (Bld) 6.9 % Normal 5.0-13.0 [facility] Comment on above: Performed By: #### L [id number] #### Masonry Contractor: LILIA KNOX ([id number]) [facility] ([facility]) [address] [place] [address] NEUTROPHILS ABSOLUTE 10.4 10*3/uL High 1.8-7.5 [facility] Comment on above: Performed By: #### L [id number] #### Masonry Contractor: LILIA KNOX ([id number]) [facility] ([facility]) [address] [place] [address] Neutrophils/100 WBC (Bld) 85.2 % High 38.0-82.0 [facility] Comment on above: Performed By: #### L [id number] #### Masonry Contractor: LILIA KNOX ([id number]) [facility] ([facility]) [address] [place] [address] NRBC 0.0 /100 WBCs Normal 0.0-2.0 [facility] Comment on above: Performed By: #### L [id number] #### Masonry Contractor: LILIA KNOX ([id number]) [facility] ([facility]) [address] [place] [address] Platelet mean volume (Bld) [Entitic vol] 8.7 fL Low 9.0-12.7 [facility] Comment on above: Performed By: #### L [id number] #### Masonry Contractor: LILIA KNOX ([id number]) [facility] ([facility]) [address] [place] [address] Platelets (Bld) [#/Vol] 323 10*3/uL Normal 140-440 [facility] Comment on above: Performed By: #### L [id number] #### Masonry Contractor: LILIA KNOX ([id number]) [facility] [address] [place] [address] RBC (Bld) [#/Vol] 5.16 10*6/uL Normal 4.40-5.90 [facility] Comment on above: Performed By: #### L [id number] #### Masonry Contractor: LILIA KNOX ([id number]) [facility] ([facility]) [address] [place] [address] WBC (Bld) [#/Vol] 12.3 10*3/uL High 3.6-10.7 [facility] Comment on above: Performed By: #### L [id number] #### Masonry Contractor: LILIA KNOX ([id number]) [facility] ([facility]) [address] [place] [address] ED Provider Noteon ED Provider Note EMERGENCY [...] min Stress: No Stress Concern Present (10/25/2023) [employer] - Occupational Stress Questionnaire Feeling of Stress : Not at all Social Connections: Moderately Isolated (10/25/2023) Social Connection and Isolation Panel [NHANES] Frequency of Communication with Friends and Family: Three times a week Frequency of Social Gatherings with Friends and Family: Three times a week Attends Evangelical Services: Never Active Member of Clubs or [...] Emergency Physicia (more content not included)... Normal [facility] HEPATIC FUNCTION PANELon Albumin [Mass/Vol] 4.4 g/dL Normal 3.5-5.0 [facility] Comment on above: Performed By: #### L [id number] #### Masonry Contractor: PARTH TADEO ([id number]) [facility] [address] ALP [Catalytic activity/Vol] 89 U/L Normal 38-126 [facility] Comment on above: Performed By: #### L [id number] #### Masonry Contractor: PARTH TADEO ([id number]) [facility] ([facility]) [address] ALT [Catalytic activity/Vol] 25 U/L Normal 0-49 [facility] Comment on above: Performed By: #### L [id number] #### Masonry Contractor: PARTH TADEO ([id number]) [facility] [address] AST [Catalytic activity/Vol] 34 U/L Normal 15-46 [facility] Comment on above: Performed By: #### L [id number] #### Masonry Contractor: PARTH TADEO ([id number]) [facility] [address] Bilirubin [Mass/Vol] 0.8 mg/dL Normal 0.2-1.3 [facility] Comment on above: Performed By: #### L [id number] #### Masonry Contractor: PARTH TADEO ([id number]) [facility] [address] [place] [address] Bilirubin.indirect [Mass/Vol] 0.0 mg/dL Normal 0.0-0.3 [facility] Comment on above: Performed By: #### L [id number] #### Masonry Contractor: PARTH TADEO ([id number]) [facility] [address] Protein [Mass/Vol] 7.3 g/dL Normal 6.3-8.2 [facility] Comment on above: Performed By: #### L [id number] #### Masonry Contractor: PARTH TADEO ([id number]) [facility] [address] Hepatic function 2000 panelo n 04-11-2024 Albumin [Mass/Vol] 4.4 g/dL 3.5 - 5.0 g/dL [facility] ALP [Catalytic activity/Vol] 89 U/L 38 - 126 U/L [facility] ALT [Catalytic activity/Vol] 25 U/L 0 - 49 U/L [facility] AST [Catalytic activity/Vol] 34 U/L 15 - 46 U/L [facility] Bilirubin [Mass/Vol] 0.8 mg/dL 0.2 - 1 .3 mg/dL [facility] Bilirubin.conjugated [Mass/Vol] 0 mg/dL 0.0 - 0.3 mg/dL [facility] Protein [Mass/Vol] 7.3 g/dL 6.3 - 8.2 g/dL [facility] LIPASEon 04-11-2024 Lipase [Catalytic activity/Vol] 46 U/L Normal 23-300 [facility] Comment on above: Performed By: #### L [id number] #### Masonry Contractor: PARTH TADEO ([id number]) [facility] ([facility]) [address] Laboratory - Chemistry and C hemistry - challengeon 04-11-2024 Troponin I.cardiac [Mass/Vol] ng/mL NINF - 0.034 ng/mL [facility] Lipase [Catalytic activity/Vol] 46 U/L 23 - 300 U/L [facility] No Panel Informationon 04-11 Interpretation and review of laboratory results Normal [facility] P Madrid 62 degrees [facility] [place] Interval 160 ms [facility] QRS [place] 23 degrees [facility] QRSD Interval 82 ms [facility] h QT Interval 333 ms [facility] QTC Interval 427 ms [facility] T Wave Madrid 36 degrees [facility] James Neil MD - 04/11/2024 IMPRESSION: Sinus rhythm Abnormal R-wave progression, late transition INFERIOR Q WAVES, PROBABLY NORMAL VARIATION Compared to 11/08/2023 Electronically Signed On 04-11-2024 01:51:25 EST by James Neil [facility] TROPONIN Ion 04-11-2024 Troponin I.cardiac [Mass/Vol] ng/mL Normal <0.034 [facility] Comment on above: Result Comment: ORDE R COMMENTS: Patients with high levels of Biotin oral intake (ie >5 mg/day) may have falsely decreased Troponin levels. Performed By: #### L [id number] #### Masonry Contractor: PARTH TADEO ([id number]) [facility] ([facility]) [address] Troponin I.cardiac [Mass/Vol ]on 04-11-2024 Interpretation and review of laboratory results Normal [facility] Patients with high levels of Biotin oral intake (ie >5 mg/day) may have falsely decreased Troponin levels. [facility] Vital signson 04-11-2024 Heart rate 98 /min bpm [facility] 36on 12-05-2023 36 Spoke to patient. He [...] return to ED if symptoms worsen. Normal [facility] 36on 12-02-2023 36 No answer, voicemail is not set up. Normal [facility] Discharge Instructionon 10-28 Discharge Instruction [facility] Medical Records Department [address] [place] [address] Instructions for Home/Discharge Instructions 11/11/23 1014 MR#: [id number] Acct: [id number] Name: MAYITO FORBES Rep #: [id number] : 1985 38 From: Kyler Nance DO [...] ; No Primary Care Physician Signed Normal [facility] 12 Lead EKGon 11-10-2023 12 Lead EKG [facility] Cardiovascular Services [address] [place] [address] 12 Lead EKG 11/10/23 0525 MR#: [id number] Acct: [id number] Name: MAYITO FORBES Rep #: [id number] : 1985 38 From: Mary Chahal MD [...] has shortened Confirmed by Mary Chahal ([id number]), video editor JAMIL TIJERINA ([id number]) on 11/10/2023 9:50:10 AM Referred By: Fahad Pepe Confirmed By:Mary Chahal 11/10/23 0950 Date Mary Chahal MD CC: Dr. Fahad Pepe, ; Dr. Slava Adame MD; Dr. Kyler Nance DO; No Primary Care Physician Signed Normal [facility] 36on 11-10-2023 36 No answer, voicemail not set up. Normal [facility] CBC W/Diff, Automatedon 10-28 Absolute Lymph 1.79 X10 3/uL Normal 0.83-4.51 [facility] Comment on above: Performed By: #### L 100.0100 ####[facility] [address] [place], [address] Absolute Neut 3.8 X10 3/uL Normal 2.0-7.7 [facility] Comment on above: Performed By: #### L 100.0100 ####[facility] [address] [place], [address] Basophils/100 WBC (Bld) 0.9 % Normal 0-1 [facility] Comment on above: Performed By: #### L 100.0100 ####[facility] [address] [place], [address] Eosinophils/100 WBC (Bld) 2.4 % Normal 0-5 [facility] Comment on above: Performed By: #### L 100.0100 ####[facility] [address] [place], [address] Erythrocyte distribution width (RBC) [Ratio] 12.5 % Normal 11.6-14.6 [facility] Comment on above: Performed By: #### L 100.0100 ####[facility] [address] [place], [address] Hematocrit (Bld) [Volume fraction] 40.4 % Normal 40-54 [facility] Comment on above: Performed By: #### L 100.0100 ####[facility] [address] [place], [address] Hemoglobin (Bld) [Mass/Vol] 13.5 g/dL Normal 13.0-16.5 [facility] Comment on above: Performed By: #### L 100.0100 ####[facility] [address] [place], [address] IG% 0.300 Normal 0.0-0.9 [facility] Comment on above: Result Comment: IG% - Immature Granulocytes (promyelocytes, myelocytes and metamyelocytes) > 1% indicates that a LEFT SHIFT is Present. Performed By: #### L 100.0100 ####[facility] [address] [place], [address] Lymphocytes/100 WBC (Bld) 28.1 % Normal 19-41 [facility] Comment on above: Performed By: #### L 100.0100 ####[facility] [address] [place], [address] MCH (RBC) [Entitic mass] 30.3 pg Normal 27.0-32.0 [facility] Comment on above: Performed By: #### L 100.0100 ####[facility] [address] [place], [address] MCHC (RBC) [Mass/Vol] 33.4 g/dL Normal 32-36 [facility] Comment on above: Performed By: #### L 100.0100 ####[facility] [address] [place], [address] MCV (RBC) [Entitic vol] 90.6 fL Normal 80-94 [facility] Comment on above: Performed By: #### L 100.0100 ####[facility] [address] [place], [address] Monocytes/100 WBC (Bld) 8.8 % Normal 0-10 [facility] Comment on above: Performed By: #### L 100.0100 ####[facility] [address] [place], [address] Neutrophils/100 WBC (Bld) 59.5 % Normal 47-70 [facility] Comment on above: Performed By: #### L 100.0100 ####[facility] [address] [place], [address] Nucleated RBC (Bld) [#/Vol] 0 10*3/uL Normal 0-5 [facility] Comment on above: Performed By: #### L 100.0100 ####[facility] [address] [place], [address] Platelet mean volume (Bld) [Entitic vol] 8.8 fL Normal 6.2-12.0 [facility] Comment on above: Performed By: #### L 100.0100 ####[facility] [address] [place], [address] Platelets (Bld) [#/Vol] 310 10*3/uL Normal 150-450 [facility] Comment on above: Performed By: #### L 100.0100 ####[facility] [address] [place], [address] RBC (Bld) [#/Vol] 4.46 10*6/uL Low 4.6-6.2 [facility] Comment on above: Performed By: #### L 100.0100 ####[facility] [address] [place], [address] RDW SD 41.1 fl Normal 35.1-43.9 [facility] Comment on above: Performed By: #### L 100.0100 ####[facility] [address] [place], [address] WBC (Bld) [#/Vol] 6.4 10*3/uL Normal 4.4-11.0 [facility] Comment on above: Performed By: #### L 100.0100 ####[facility] [address] [place], [address] Colonoscopy Reporton 024 Colonoscopy Report [facility] Medical Records Department [address] [place] [address] Colonoscopy Report MR#: [id number] Acct: [id number] Name: MAYITO FORBES Rep #: [id number] : 1985 38 From: Lang Montilla DO [...] screening purposes. Procedure Code(s): --- Professional --- 46671, Colonoscopy, flexible; diagnostic, including collection of specimen(s) by brushing or washing, when performed (separate procedure) CPT copyright 2021 [employer]. All rights reserved. The codes documented in this report are preliminary and upon entertainment musician review may be revised to meet current compliance requirements. Lang Montilla DO 11/10/2023 12:06:40 PM This report has been signed electronically. Number of Addenda: 0 Note Initiated On: 11/10/2023 11:31 AM 11/10/23 1207 Date Lang Montilla DO Cosigner Signature: Date (if indicated) CC: No Primary Care Physician; Lang Montilla DO Date Dictated: 11/10/23 1131 Date Transcribed: Merchandise Adjustment Clerk: AMANDA Signed [facility] MR/POSTOP.[facility] 11-10-2023 MR/POSTOP.[facility] Medical Records Department [address] [place] [address] Anesthesia Postop Eval I 11/10/23 1212 MR#: [id number] Acct: [id number] Name: MAYITO FORBES Rep #: [id number] : 1985 38 From: Davie Serna PCP: Care Physician,No Primary Status:ADM IN Y Race: AA Location: ME3 [id number] Anesthesia: Postop Eval I Current Vital Signs [...] Davie Ornelasluistania Signature: Date CC: Signed [facility] MR/PIDLDXUI4vm 11-10-2023 [facility] Medical Records Department [address] [facility] [place] [address] Anesthesia Postop Eval II 11/10/23 1341 MR#: [id number] Acct: [id number] Name: MAYITO FORBES Rep #: [id number] : 1985 38 From: Slava Adame MD PCP: Care Physician,No Primary Status:ADM IN Y Race: AA Location: [place] [id number] Anesthesia Postop Eval I Sum Postop Eval [...] Complications Anesthesia Complication: No 11/10/23 1341 Date lSava Acharya Signature: Date CC: Signed Normal [facility] Basic Metabolic Profile (BMP )on 11-09-2023 BUN/CRE 12.1 RATIO Normal 10-20 [facility] Comment on above: Performed By: #### L 500.2500, L100.0500 #### [facility] [address] [place], [address] CA,Total 8.4 mg/dL Low 8.5-10.1 [facility] Comment on above: Performed By: #### L 500.2500, L100.0500 #### [facility] [address] [place], [address] Chloride [Moles/Vol] 108 mmol/L High 98-107 [facility] Comment on above: Performed By: #### L 500.2500, L100.0500 #### [facility] [address] [place], [address] CO2 [Moles/Vol] 24.0 mmol/L Normal 21.0-32.0 [facility] Comment on above: Performed By: #### L 500.2500, L100.0500 #### [facility] [address] [place], [address] Creatinine [Mass/Vol] 0.82 mg/dL Normal 0.70-1.30 [facility] Comment on above: Result Comment: The validity of the calculated GFR GFRAA in patients over 70 years has not been determined. Clinical correlation is essential. Performed By: #### L 500.2500, L100.0500 #### [facility] [address] [place], [address] ECRCL 118.17 ml/min Normal [facility] Comment on above: Performed By: #### L 500.2500, L100.0500 #### [facility] [address] [place], [address] EST GFR - AA 134 mL/min Normal >60 [facility] Comment on above: Result Comment: Afri can [place] GFR Calc Performed By: #### L 500.2500, L100.0500 #### [facility] [address] [place], [address] GAP 6 Normal 5-15 [facility] Comment on above: Performed By: #### L 500.2500, L100.0500 #### [facility] [address] [place], [address] GFR/1.73 sq M.predicted among non-blacks MDRD (S/P/Bld) [Vol rate/Area] 111 mL/min/{1.73_m2} Normal >60 [facility] Comment on above: Result Comment: Non- GFR Calc Performed By: #### L 500.2500, L100.0500 #### [facility] [address] [place], [address] Glucose [Mass/Vol] 112 mg/dL High 74-106 [facility] Comment on above: Result Comment: Fast ing Glucose result from 100 to 125 mg/dL suggests IMPAIRED HOMEOSTASIS per A.D.A. criteria. Performed By: #### L 500.2500, L100.0500 #### [facility] [address] [place], [address] Potassium [Moles/Vol] 3.5 mmol/L Normal 3.5-5.1 [facility] Comment on above: Performed By: #### L 500.2500, L100.0500 #### [facility] [address] [place], [address] Sodium [Moles/Vol] 138 mmol/L Normal 136-145 [facility] Comment on above: Performed By: #### L 500.2500, L100.0500 #### [facility] [address] [place], [address] Urea nitrogen [Mass/Vol] 10 mg/dL Normal 7-18 [facility] Comment on above: Performed By: #### L 500.2500, L100.0500 #### [facility] [address] [place], [address] CBC-Complete Blood Cnt No Di ffon 11-09-2023 Erythrocyte distribution width (RBC) [Ratio] 12.4 % Normal 11.6-14.6 [facility] Comment on above: Performed By: #### L 500.2500, L100.0500 #### [facility] [address] [place], [address] Hematocrit (Bld) [Volume fraction] 42.0 % Normal 40-54 [facility] Comment on above: Performed By: #### L 500.2500, L100.0500 #### [facility] [address] [place], [address] Hemoglobin (Bld) [Mass/Vol] 14.3 g/dL Normal 13.0-16.5 [facility] Comment on above: Performed By: #### L 500.2500, L100.0500 #### [facility] [address] [place], [address] MCH (RBC) [Entitic mass] 30.1 pg Normal 27.0-32.0 [facility] Comment on above: Performed By: #### L 500.2500, L100.0500 #### [facility] [address] [place], [address] MCHC (RBC) [Mass/Vol] 34.0 g/dL Normal 32-36 [facility] Comment on above: Performed By: #### L 500.2500, L100.0500 #### [facility] [address] [place], [address] MCV (RBC) [Entitic vol] 88.4 fL Normal 80-94 [facility] Comment on above: Performed By: #### L 500.2500, L100.0500 #### [facility] [address] [place], [address] Platelet mean volume (Bld) [Entitic vol] 8.6 fL Normal 6.2-12.0 [facility] Comment on above: Performed By: #### L 500.2500, L100.0500 #### [facility] [address] [place], [address] Platelets (Bld) [#/Vol] 388 10*3/uL Normal 150-450 [facility] Comment on above: Performed By: #### L 500.2500, L100.0500 #### [facility] [address] [place], [address] RBC (Bld) [#/Vol] 4.75 10*6/uL Normal 4.6-6.2 [facility] Comment on above: Performed By: #### L 500.2500, L100.0500 #### [facility] [address] [place], [address] RDW SD 40.7 fl Normal 35.1-43.9 [facility] Comment on above: Performed By: #### L 500.2500, L100.0500 #### [facility] [address] [place], [address] WBC (Bld) [#/Vol] 12.5 10*3/uL High 4.4-11.0 [facility] Comment on above: Performed By: #### L 500.2500, L100.0500 #### [facility] [address] [place], [address] ECG 12-LEADon 11-09-2023 ECG 12-LEAD IMPRESSION: Sinus tachycardia Electronically Signed On 11-09-2023 03:03:48 EDT [facility] MR/CON.PCM.GIon 11-09-2023 MR/CON.PCM.GI [facility] Medical Records Department [address] [place] [address] Consultation - 11/09/23 1839 MR#: [id number] Acct: [id number] Name: MAYITO FORBES Rep #: [id number] : 1985 38 From: Lang Friend PCP: Care Physician,No Primary Status:ADM IN [place] [facility] [id number] HPI Consult Data Date of Consult: 11/09/23 HPI Narrative Reason for Consultation: Abnormal CT scan HPI Narrative: MAYITO FORBES, is a 38 M who presented to [facility] on 11/08/2023 as a transfer from [facility] ED for opiate withdrawal. Patient seen [...] tolerated withdrawal medications well. I reviewed the [facility] ED provider note in [facility]. Patient [...] consulted for evaluation of his colonic abnormality. [facility] History (Updated 11/09/23 @ 00:23 by [...] hr 0 (more content not included)... Normal [facility] No Panel Informationon 11-08 P [place] 74 degrees [facility] NV Interval 154 ms [facility] QRS [place] 45 degrees [facility] QRSD Interval 81 ms [facility] QT Interval 327 ms [facility] QTC Interval 439 ms [facility] T Wave [place] 25 degrees [facility] Sinus tachycardia Electronically Signed On 11-09-2023 03:03:48 EDT [facility] - 11/09/2023 IMPRESSION: Sinus tachycardia Electronically Signed On 11-09-2023 03:03:48 EDT by [facility] Phosphoruson 11-09-2023 Phosphate [Mass/Vol] 2.3 mg/dL Low 2.5-4.9 [facility] Comment on above: Performed By: #### L 501.2300 #### [facility] [address] [place], [address] Phosphate [Mass/Vol] 1.2 mg/dL Low 2.5-4.9 [facility] Comment on above: Order Comment: Comme nts: May add to ED labs Performed By: #### L 501.2300 ####[facility] [id number] [place], [address] Vital signson 11-09-2023 Heart rate 108 /[facility] bpm [facility] TCC asked by the ED MARINE SCIENTIST to assist with pt status of OON with [employer]. TCC was able to find a few select hospitals including [facility] in [place] and [facility]. Provider updated via secure chat. Normal [facility] ED SW follow up. SW consulted by PORCELAIN ENAMELING SUPERVISOR for in network addictions resources and supports. Patient's [employer] insurance not in network with [facility]. Patient also from out [facility]. SW provide [facility] & [facility] Crisis hotline, placed information in patient's AVS. Included [facility] as well since it is in network with insurance. Normal [facility] CBC-Complete Blood Cnt No Di ffon 11-08-2023 Erythrocyte distribution width (RBC) [Ratio] 12.2 % Normal 11.6-14.6 [facility] Comment on above: Performed By: #### L 500.4050, L100.0500 #### [facility] [address] [place], [address] Hematocrit (Bld) [Volume fraction] 43.5 % Normal 40-54 [facility] Comment on above: Performed By: #### L 500.4050, L100.0500 #### [facility] [address] [place], [address] Hemoglobin (Bld) [Mass/Vol] 15.3 g/dL Normal 13.0-16.5 [facility] Comment on above: Performed By: #### L 500.4050, L100.0500 #### [facility] [address] [place], [address] MCH (RBC) [Entitic mass] 30.6 pg Normal 27.0-32.0 [facility] Comment on above: Performed By: #### L 500.4050, L100.0500 #### [facility] [address] [place], [address] MCHC (RBC) [Mass/Vol] 35.2 g/dL Normal 32-36 [facility] Comment on above: Performed By: #### L 500.4050, L100.0500 #### [facility] [address] [place], [address] MCV (RBC) [Entitic vol] 87.0 fL Normal 80-94 [facility] Comment on above: Performed By: #### L 500.4050, L100.0500 #### [facility] [address] [place], [address] Platelet mean volume (Bld) [Entitic vol] 8.5 fL Normal 6.2-12.0 [facility] Comment on above: Performed By: #### L 500.4050, L100.0500 #### [facility] [address] [place], [address] Platelets (Bld) [#/Vol] 431 10*3/uL Normal 150-450 [facility] Comment on above: Performed By: #### L 500.4050, L100.0500 #### [facility] [address] [place], [address] RBC (Bld) [#/Vol] 5.00 10*6/uL Normal 4.6-6.2 [facility] Comment on above: Performed By: #### L 500.4050, L100.0500 #### [facility] [address] [place], [address] RDW SD 38.6 fl Normal 35.1-43.9 [facility] Comment on above: Performed By: #### L 500.4050, L100.0500 #### [facility] [address] [place], [address] WBC (Bld) [#/Vol] 13.6 10*3/uL High 4.4-11.0 [facility] Comment on above: Performed By: #### L 500.4050, L100.0500 #### [facility] [address] [address] [address] [place], [address] CT ABDOMEN PELVIS W CONTRAST on 11-08-2023 CT ABDOMEN PELVIS W CONTRAST Patient Name[facility] 1985 [id number] Exam Date/Time: 11/08/2023 09:32 Procedure: CT ABDOMEN [...] there like he can't hear me. Normal [facility] CT Abdomen and Pelvis W cont [...] Electronically Signed Date/Time: 11/08/2023 9:44 AM T [facility] [employer] Patient Name: MAYITO FORBES : 1985 [...] Mild degenerative changes throughout the imaged spine. [facility] RADIOLOGY SYSTEM Ahsan Schuler MD - 11/08/2023 Patient Name: MAYITO [facility] 1985 [id number] Exam Date/Time: 11/08/2023 09:32 Procedure: CT ABDOMEN [...] Electronically Signed Date/Time: 11/08/2023 9:44 AM EDT [facility] [employer] Radiology Study observation (narrative) [facility] alth CT Abdomen and Pelvis W cont rast IVOrdered By: Ahsan Schuler on 11-08-2023 [facility] [employer] Work Phone: Comprehensive Metabolic Prof ilon 11-08-2023 Albumin [Mass/Vol] 3.7 g/dL Normal 3.2-5.0 [facility] Comment on above: Performed By: #### L 500.4050, L100.0500 #### [facility] [address] [place], [address] Albumin/Globulin [Mass ratio] 1.1 {ratio} Normal 0.9-2.4 [facility] Comment on above: Performed By: #### L 500.4050, L100.0500 #### [facility] [address] [place], [address] ALK P 86 U/L Normal 45-117 [facility] Comment on above: Performed By: #### L 500.4050, L100.0500 #### [facility] [address] [place], [address] ALT [Catalytic activity/Vol] 29 U/L Normal 16-61 [facility] Comment on above: Performed By: #### L 500.4050, L100.0500 #### [facility] [address] [place], [address] AST [Catalytic activity/Vol] 17 U/L Normal 15-37 [facility] Comment on above: Performed By: #### L 500.4050, L100.0500 #### [facility] [address] [place], [address] Bilirubin [Mass/Vol] 0.60 mg/dL Normal 0.20-1.00 [facility] Comment on above: Result Comment: For patients on eltrombopag therapy, use of Dimension [place] TBIL is not recommended. Performed By: #### L 500.4050, L100.0500 #### [facility] [address] [place], [address] BUN/CRE 7.8 RATIO Low 10-20 [facility] Comment on above: Performed By: #### L 500.4050, L100.0500 #### [facility] [address] [place], [address] CA,Total 9.0 mg/dL Normal 8.5-10.1 [facility] Comment on above: Performed By: #### L 500.4050, L100.0500 #### [facility] [address] [place], [address] Chloride [Moles/Vol] 109 mmol/L High 98-107 [facility] Comment on above: Performed By: #### L 500.4050, L100.0500 #### [facility] [address] [place], [address] CO2 [Moles/Vol] 22.0 mmol/L Normal 21.0-32.0 [facility] Comment on above: Performed By: #### L 500.4050, L100.0500 #### [facility] [address] [place], [address] Creatinine [Mass/Vol] 1.03 mg/dL Normal 0.70-1.30 [facility] Comment on above: Result Comment: The validity of the calculated GFR GFRAA in patients over 70 years has not been determined. Clinical correlation is essential. Performed By: #### L 500.4050, L100.0500 #### [facility] [address] [place], [address] ECRCL 94.08 ml/min Normal [facility] Comment on above: Performed By: #### L 500.4050, L100.0500 #### [facility] [address] [place], [address] EST GFR - AA 104 mL/min Normal >60 [facility] Comment on above: Result Comment: Afri can Andorran GFR Calc Performed By: #### L 500.4050, L100.0500 #### [facility] [address] [place], [address] GAP 8 Normal 5-15 [facility] Comment on above: Performed By: #### L 500.4050, L100.0500 #### [facility] [address] [place], [address] GFR/1.73 sq M.predicted among non-blacks MDRD (S/P/Bld) [Vol rate/Area] 86 mL/min/{1.73_m2} Normal >60 [facility] Comment on above: Result Comment: Non- GFR Calc Performed By: #### L 500.4050, L100.0500 #### [facility] [address] [place], [address] Globulin (S) [Mass/Vol] 3.5 g/dL Normal 2.2-4.2 [facility] Comment on above: Performed By: #### L 500.4050, L100.0500 #### [facility] [address] [place], [address] Glucose [Mass/Vol] 119 mg/dL High 74-106 [facility] Comment on above: Result Comment: Fast ing Glucose result from 100 to 125 mg/dL suggests IMPAIRED HOMEOSTASIS per A.D.A. criteria. Performed By: #### L 500.4050, L100.0500 #### [facility] [address] [place], [address] Potassium [Moles/Vol] 3.2 mmol/L Low 3.5-5.1 [facility] Comment on above: Performed By: #### L 500.4050, L100.0500 #### [facility] [address] [place], [address] Sodium [Moles/Vol] 139 mmol/L Normal 136-145 [facility] Comment on above: Performed By: #### L 500.4050, L100.0500 #### [facility] [address] [place], [address] T PROT 7.2 g/dL Normal 6.4-8.2 [facility] Comment on above: Performed By: #### L 500.4050, L100.0500 #### [facility] [address] [place], [address] Urea nitrogen [Mass/Vol] 8 mg/dL Normal 7-18 [facility] Comment on above: Performed By: #### L 500.4050, L100.0500 #### [facility] [address] [place], [address] ECG 12-LEADon 11-08-2023 ECG 12-LEAD IMPRESSION: Sinus tachycardia No STEMI Electronically Signed On 11-08-2023 23:31:25 EDT [facility] 11-08-2023 ED Nursing Note Report to KIMMY Banks. Caroline Appiah RN 11/08/[address] [facility] ED Nursing Note This RN contacted RN assuming care of patient at [facility]. Per RN patient is okay to transfer with peripheral IV. Caroline Appiah RN 11/08/[address] [facility] ED Nursing Note Pt rounded on at thi s time. Pt reports nausea is returning at this time. This RN to contact provider who assumed care of patient. Caroline Appiah RN 11/08/[address] [facility] ED Nursing Note This RN went to priya dinero on patient to complete COWS screen and pain assessment. Pt currently alseep. RR even and unlabored. Pt remains on monitor. Caroline Appiah RN 11/08/[address] [facility] ED Nursing Note DM ETA 1830. Caroline Appiah RN 11/08/[address] [facility] ED Nursing Note This RN went over de tox rules for a second time with patient. Patient agrees with all rules, and verbalizes understanding if any rules are broken. Caroline Appiah RN 11/08/[address] [facility] ED Nursing Note Pt denies wanting to eat at this time. Pt requesting kameron izabella. Pt provided kameron izabella at this time. Caroline Appiah RN 11/08/[address] [facility] ED Nursing Note Report to KIMMY Moran on med surg 3 at [facility]. Caroline Appiah RN 11/08/[address] [facility] ED Nursing Note Report to KIMMY East. Caroline Appiah RN 11/08/[address] [facility] ED Nursing Note EKG at bedside. Caroline Appiah RN 11/08/[address] [facility] ED Nursing Note NOE [place] made son re of patient tachycardia. This RN requested EKG. Caroline Appiah RN 11/08/[address] [facility] ED Nursing Note This ACC RN saw carlos ent for KI consult. Last use of fentanyl was on 11/07/23 at 2 am. He used about 1/2 gram. COWS is a 7. Patient has to be prompted to answer questions as he is drowsy. He wants to stop fentanyl use and go to detox. He does not want to go to residential or [facility] after detox. His preference is Vivitrol MAT. I explained I could find him MAT in his insurance network and printed a list. He stated he would go to [facility] in [place]. I spoke to [facility] to ensure they accepted his insurance. They do accept [employer]. They suggested [facility] also has detox unit if he requires detox prior to MAT. Providers notified. Vianey Proctor RN 11/08/23 1218 Vianey Proctor RN 11/08/23 1256 Vianey Proctor RN 11/08/23 1257 Vianey Proctor RN 11/08/[address] [facility] ED Nursing Note NOE [place] made son re of COWS score. Caroline Appiah RN 11/08/[address] [facility] ED Nursing Note Pt rounded on at thi s time. Pt reports to this RN he is still nauseous. NOE [place] notified. Caroline Appiah RN 11/08/[address] [facility] ED Nursing Note NOE [place] notified of n/v episode. Caroline Appiah RN 11/08/[address] [facility] ED Nursing Note This RN went to PO challenge patient per NOE [place]. Pt reports he had another episode of n/v. Emesis noted in Emesis bag. Caroline Appiah RN 11/08/[address] [facility] ED Nursing Note Pt resting in bed wi th eyes closed. Pt remains on monitor at this time. No signs of distress noted. Breathing even and unlabored. Caroline Appiah RN 11/08/[address] [facility] ED Nursing Note Called patient for vitals. No answer. Susy Carolina MA 11/08/[address] [facility] ED Provider Noteon ED Provider Note [...] patient's insurance he will be transferred to [facility] for medical admission for intractable nausea [...] Solutions Marc Lainez DO 11/08/23 1411 Normal [facility] H AND P Exam - Hospitaliston 11-08-2023 H&P Exam - Hospitalist [facility] Medical Records Department [address] [place] [address] H P Exam - Hospitalist 11/08/23 2100 MR#: [id number] Acct: [id number] Name: MAYITO FORBES Rep #: [id number] : 1985 38 From: Fahad Pepe DO PCP: Care Physician,No Primary Status:ADM IN Location: [facility] BU[facility]-5 HPI - General General Date of Admission: 11/08/23 Date of Service: 11/08/23 Chief Complaint: Opiate withdrawal HPI Narrative MAYITO FORBES, is a 38 M who [facility] as a transfer from [facility] ED for opiate withdrawal. Patient seen [...] tolerated withdrawal medications well. I reviewed the [facility] ED provider note in [employer]. Patient [...] for fentanyl. Patient was then transferred to [facility] for admission for addiction medicine resources for opiate withdrawal. During my encounter, patient denies any fevers or chills. Denies any abdominal pain or discomfort. He has been having normal bowel movements and denies any diarrhea. Denies any history of abdominal issues or any family history of bowel disease. No other acute concerns at this time[facility] (Updated 11/09/23 @ 00:23 by [...] normoactive bow (more content not included)... Normal [facility] Magnesiumon 11-08-2023 Magnesium [Mass/Vol] 1.7 mg/dL Normal 1.6-2.6 [facility] Comment on above: Order Comment: Comme nts: may add to ED labs Performed By: #### L 501.0214 ####[facility] [id number] [place], [address] No Panel InformationOrdered By: [facility] on 11-08-2023 P [place] 79 degrees [facility] Work Phone: NV Interval 180 ms [facility] Work Phone: QRS [place] 80 degrees [facility] Work Phone: QRSD Interval 74 ms [facility] h Work Phone: QT Interval 304 ms [facility] Work Phone: QTC Interval 428 ms [facility] Work Phone: T Wave [place] 39 degrees [facility] Work Phone: [facility] Work Phone: No Panel Informationon 11-07 Sinus tachycardia No STEMI Electronically Signed On 11-08-2023 23:31:25 EDT [facility] - 11/08/2023 IMPRESSION: Sinus tachycardia No STEMI Electronically Signed On 11-08-2023 23:31:25 EDT by [facility] No Panel InformationOrdered By: Wade Mac on 11-08-2023 FENTANYL SCREEN, URINE Positive Negative [facility] Fentanyl has been screened for by Immunoassay at a 1 ng/ml threshold. POSITIVE results are not confirmed by a more specific alternative method unless requested. If confirmation is needed, request confirmation under separate order. NOTE: These results are for medical treatment only. Analysis performed using non-forensic procedures. [facility] Vital signsOrdered By: [facility] on 11-08-2023 Heart rate 119 /min bpm [facility] [employer] Work Phone: BASIC METABOLIC PANELon 10-28 Anion gap [Moles/Vol] 10 mmol/L Normal 3-13 [facility] Comment on above: Performed By: #### L AB20, LAB15, LAB46 #### Masonry Contractor: LILIA KNOX ([id number]) [facility] ([facility]) [address] [place] [address] Calcium [Mass/Vol] 9.7 mg/dL Normal 8.4-10.4 [facility] Comment on above: Performed By: #### L AB20, LAB15, LAB46 #### Masonry Contractor: LILIA KNOX ([phone]) [facility] [address] [place] [address] Chloride [Moles/Vol] 106 mmol/L Normal 98-107 [facility] Comment on above: Performed By: #### L AB20, LAB15, LAB46 #### Mason[employer] Contractor: LILIA KNOX ([id number]) [facility] [address] [place] [address] CO2 [Moles/Vol] 23 mmol/L Normal 22-30 [facility] Comment on above: Performed By: #### L AB20, LAB15, LAB46 #### Mason[employer] Contractor: LILIA KNOX ([id number]) [facility] [address] [place] [address] Creatinine [Mass/Vol] 0.69 mg/dL Normal 0.66-1.25 [facility] Comment on above: Performed By: #### L AB20, LAB15, LAB46 #### Mason[employer] Contractor: LILIA KNOX ([id number]) [facility] [address] [place] [address] GLOMERULAR FILTRATION RATE ML/MIN/1.73 SQ M.PREDICTED >90.0 Normal >60.0 [facility] Comment on above: Result Comment: Calc ulation based on the Chronic Kidney Disease Epidemiology Collaboration (CKD-EPI) equation refit without adjustment for race Performed By: #### L AB20, LAB15, LAB46 #### Mason[employer] Contractor: LILIA KNOX ([id number]) [facility] [address] [place] [address] [place] Glucose [Mass/Vol] 108 mg/dL High 70-100 [facility] Comment on above: Performed By: #### L AB20, LAB15, LAB46 #### Masonry Contractor: LILIA [id number]) [facility]) [address] [place] [address] Potassium [Moles/Vol] 3.7 mmol/L Normal 3.5-5.1 [facility] Comment on above: Performed By: #### L AB20, LAB15, LAB46 #### Mason[employer] Contractor: LILIA KNOX ([id number]) [facility] ([facility]) [address] [place] [address] Sodium [Moles/Vol] 138 mmol/L Normal 135-145 [facility] Comment on above: Performed By: #### L AB20, LAB15, LAB46 #### [employer] Contractor: LILIA KNOX ([id number]) [facility] ([facility]) [address] [place] [address] Urea nitrogen [Mass/Vol] 11 mg/dL Normal 9-20 [facility] Comment on above: Performed By: #### L AB20, LAB15, LAB46 #### Mason[employer] Contractor: LILIA KNOX ([id number]) [facility] ([facility]) [address] [place] [address] Basic metabolic 1998 panelon 11-07-2023 Anion gap [Moles/Vol] 10 mmol/L 3 - 13 mmol/L [facility] Calcium [Mass/Vol] 9.7 mg/dL 8.4 - 10. 4 mg/dL [facility] Chloride [Moles/Vol] 106 mmol/L 98 - 10 7 mmol/L [facility] CO2 [Moles/Vol] 23 mmol/L 22 - 30 mmol/L [facility] Creatinine [Mass/Vol] 0.69 mg/dL 0.66 - 1.25 mg/dL [facility] GFR/1.73 sq M.predicted MDRD (S/P/Bld) [Vol rate/Area] - PINF [facility] Comment on above: Calculation based on the Chronic Kidney Disease Epidemiology Collaboration (CKD-EPI) equation refit without adjustment for race Glucose [Mass/Vol] 108 mg/dL High 70 - 100 mg/dL [facility] Interpretation and review of laboratory results Abnormal [facility] Potassium [Moles/Vol] 3.7 mmol/L 3.5 - 5.1 mmol/L [facility] Sodium [Moles/Vol] 138 mmol/L 135 - 145 mmol/L [facility] Urea nitrogen [Mass/Vol] 11 mg/dL 9 - 20 mg/dL [facility] [employer] CBC W Auto Differential pane l (Bld)Ordered By: Keily Nickerson on 11-07-2023 Basophils (Bld) [#/Vol] 0.1 10*3/uL 0.0 - 0.2 10*3/uL [facility] Basophils/100 WBC (Bld) 0.5 % 0.0 - 2.0 % [facility] Eosinophils (Bld) [#/Vol] 0.1 10*3/uL 0.0 - 0.5 10*3/uL [facility] Eosinophils/100 WBC (Bld) 1.2 % 0.0 - 6.0 % [facility] Erythrocyte distribution width (RBC) [Ratio] 12.1 % 11.5 - 15.0 % [facility] Hematocrit (Bld) [Volume fraction] 46.2 % 40.0 - 52.0 % [facility] Hemoglobin (Bld) [Mass/Vol] 16.3 g/dL 13.0 - 18.0 g/dL [facility] Immature granulocytes (Bld) [#/Vol] 0.0 10*3/uL NINF - 0.1 10*3/uL [facility] Immature granulocytes/100 WBC (Bld) 0.3 % 0.0 - 2.0 % [facility] Interpretation and review of laboratory results Abnormal [facility] Lymphocytes (Bld) [#/Vol] 1.3 10*3/uL 1.0 - 4.3 10*3/uL [facility] Lymphocytes/100 WBC (Bld) 12.1 % Low 15.0 - 45.0 % [facility] MCH (RBC) [Entitic mass] 30.2 pg 26. 0 - 34.0 pg [facility] MCHC (RBC) [Mass/Vol] 35.3 % 30.5 - 36.0 % [facility] MCV (RBC) [Entitic vol] 85.6 fL 77.0 - 99.0 fL [facility] Monocytes (Bld) [#/Vol] 0.7 10*3/uL 0.0 - 0.9 10*3/uL [facility] Monocytes/100 WBC (Bld) 6.4 % 5.0 - 13.0 % [facility] Neutrophils (Bld) [#/Vol] 8.5 10*3/uL High 1.8 - 7.5 10*3/uL [facility] Neutrophils/100 WBC (Bld) 79.5 % 38.0 - 82.0 % [facility] Nucleated RBC/100 WBC (Bld) [Ratio] 0.0 % [facility] Platelet mean volume (Bld) [Entitic vol] 8.7 fL Low 9.0 - 12.7 fL [facility] Platelets (Bld) [#/Vol] 404 10*3/uL 140 - 440 10*3/uL [facility] RBC (Bld) [#/Vol] 5.40 10*6/uL 4.40 - 5.9 0 10*6/uL [facility] WBC (Bld) [#/Vol] 10.7 10*3/uL 3.6 - 10.7 10*3/uL [facility] CBC WITH AUTO DIFFERENTIALon 11-07-2023 Basophils (Bld) [#/Vol] 0.1 10*3/uL Normal 0.0-0.2 [facility] Comment on above: Performed By: #### L [id number] ####Masonry Contractor: LILIA KNOX ([id number])[facility])[address] [place] [address] Basophils/100 WBC (Bld) 0.5 % Normal 0.0-2.0 [facility] Comment on above: Performed By: #### L [id number] ####Mason[employer] Contractor: LILIA KNOX ([id number])[facility])[address] [place] [address] [place] Eosinophils (Bld) [#/Vol] 0.1 10*3/uL Normal 0.0-0.5 [facility] Comment on above: Performed By: #### L [id number] ####[employer]ason[employer]or: LILIA KNOX ([id number])[facility])[address] [place] [address] [place] Eosinophils/100 WBC (Bld) 1.2 % Normal 0.0-6.0 [facility] Comment on above: Performed By: #### L [id number] ####Masonry Contractor: LILIA [id number])[facility])[address] [place] [address] Erythrocyte distribution width (RBC) [Ratio] 12.1 % Normal 11.5-15.0 [facility] Comment on above: Performed By: #### L [id number] ####Masonry Contractor: LILIA KNOX ([id number])[facility])[address] [place] [address] Hematocrit (Bld) [Volume fraction] 46.2 % Normal 40.0-52.0 [facility] Comment on above: Performed By: #### L [id number] ####Masonry Contractor: LILIA KNOX ([id number])[facility])[address] [place] [address] Hemoglobin (Bld) [Mass/Vol] 16.3 g/dL Normal 13.0-18.0 [facility] Comment on above: Performed By: #### L [id number] ####Masonry Contractor: LILIA KNOX ([id number])[facility] ([facility])[address] [place] [address] IMMATURE GRANS % 0.3 % Normal 0.0-2.0 [facility] Comment on above: Performed By: #### L [id number] ####Masonry Contractor: LILIA KNOX ([id number])[facility])[address] [place] [address] IMMATURE GRANS ABSOLUTE 0.0 10*3/uL Normal <0.1 [facility] Comment on above: Performed By: #### L [id number] ####Masonry Contractor: LILIA KNOX ([id number])[facility])[address] [place] [address] [place] Lymphocytes (Bld) [#/Vol] 1.3 10*3/uL Normal 1.0-4.3 [facility] Comment on above: Performed By: #### L [id number] ####Masonry Contractor: LILIA KNOX ([phone])[facility])[address] [place] [address] [place] Lymphocytes/100 WBC (Bld) 12.1 % Low 15.0-45.0 [facility] Comment on above: Performed By: #### L [id number] ####Masonry Contractor: LILIA KNOX ([id number])[facility] ([facility])[address] [place] [address] MCH (RBC) [Entitic mass] 30.2 pg Normal 26.0-34.0 [facility] Comment on above: Performed By: #### L [id number] ####Masonry Contractor: LILIA KNOX ([id number])[facility] ([facility])[address] [place] [address] MCHC 35.3 % Normal 30.5-36.0 [facility] Comment on above: Performed By: #### L [id number] ####Masonry Contractor: LILIA KNOX ([id number])[facility] ([facility])[address] [place] [address] MCV (RBC) [Entitic vol] 85.6 fL Normal 77.0-99.0 S [facility] Comment on above: Performed By: #### L [id number] ####Masonry Contractor: LILIA KNOX ([id number])[facility] ([facility])[address] [place] [address] Monocytes (Bld) [#/Vol] 0.7 10*3/uL Normal 0.0-0.9 [facility] Comment on above: Performed By: #### L [id number] ####Masonry Contractor: LILIA KNOX ([phone])[facility] ([facility])[address] [place] [address] Monocytes/100 WBC (Bld) 6.4 % Normal 5.0-13.0 S [facility] Comment on above: Performed By: #### L [id number] ####Masonry Contractor: LILIA KNOX ([id number])[facility])[address] [place] [address] NEUTROPHILS ABSOLUTE 8.5 10*3/uL High 1.8-7.5 [facility] Comment on above: Performed By: #### L [id number] ####Masonry Contractor: LILIA KNOX ([id number])[facility] ([facility])[address] [place] [address] Neutrophils/100 WBC (Bld) 79.5 % Normal 38.0-82.0 [facility] Comment on above: Performed By: #### L [id number] ####Masonry Contractor: LILIA KNOX ([id number])[facility] ([facility])[address] [place] [address] NRBC 0.0 /100 WBCs Normal 0.0-2.[address] [facility] Comment on above: Performed By: #### L [id number] ####Masonry Contractor: LILIA KNOX ([id number])[facility])[address] [place] [address] Platelet mean volume (Bld) [Entitic vol] 8.7 fL Low 9.0-12.7 [facility] Comment on above: Performed By: #### L [id number] ####Masonry Contractor: LILIA KNOX ([id number])[facility] ([facility])[address] [place] [address] Platelets (Bld) [#/Vol] 404 10*3/uL Normal 140-440 [facility] Comment on above: Performed By: #### L [id number] ####Masonry Contractor: LILIA KNOX ([id number])[facility] ([facility])[address] [place] [address] RBC (Bld) [#/Vol] 5.40 10*6/uL Normal 4.40-5.90 [facility] Comment on above: Performed By: #### L [id number] ####Masonry Contractor: LILIA KNOX ([id number])[facility])[address] [place] [address] WBC (Bld) [#/Vol] 10.7 10*3/uL Normal 3.6-10.7 [facility] Comment on above: Performed By: #### L [id number] ####Masonry Contractor: LILIA KNOX ([id number])[facility] ([facility])[address] [place] [address] COMPLETE URINALYSISon 2023 BACTERIA (#/HPF) IN URINE Negative Normal Negative [facility] Comment on above: Performed By: #### L [id number] ####Masonry Contractor: LILIA KNOX ([id number])[facility] ([facility])[address] [place] [address] BILIRUBIN, TOTAL PRESENCE IN URINE Negative Normal Negative [facility] Comment on above: Performed By: #### L [id number] ####Masonry Contractor: LILIA KNOX ([id number])[facility])[address] [place] [address] Clarity (U) Clear Normal Clear [facility] Comment on above: Performed By: #### L [id number] ####Masonry Contractor: LILIA KNOX ([phone])[facility])[address] [place] [address] Color (U) Yellow Normal Lt. Yellow [facility] Comment on above: Performed By: #### L [id number] ####Masonry Contractor: LILIA KNOX ([id number])[facility])[address] [place] [address] GLUCOSE (MG/DL) IN URINE Normal Normal Nor mal (<70) [facility] Comment on above: Performed By: #### L [id number] ####Masonry Contractor: LILIA KNOX ([phone])[facility])[address] [place] [address] HEMOGLOBIN PRESENCE IN URINE Negative Normal Negative [facility] Comment on above: Performed By: #### L [id number] ####Masonry Contractor: LILIA KNOX ([phone])[facility])[address] [place] [address] HYALINE CASTS (#/LPF) IN URINE SEDIMENT BY MICROSCOPY Negative Normal Negative [facility] Comment on above: Performed By: #### L [id number] ####Masonry Contractor: LILIA KNOX ([phone])[facility] ([facility])[address] [place] [address] Ketones Ql (U) 20 mg/dL Abnormal Negative [facility] Comment on above: Performed By: #### L [id number] ####Masonry Contractor: LILIA KNOX ([id number])[facility] ([facility])[address] [place] [address] LEUKOCYTE ESTERASE PRESENCE IN URINE BY TEST STRIP Negative Normal Negative [facility] Comment on above: Performed By: #### L [id number] ####Masonry Contractor: LILIA KNOX ([id number])[facility] ([facility])[address] [place] [address] NITRITE PRESENCE IN URINE Negative Normal Negative [facility] Comment on above: Performed By: #### L [id number] ####Masonry Contractor: LILIA KNOX ([id number])[facility])[address] [place] [address] pH (U) 8.0 [pH] Normal 5.0-8.0 [facility] Comment on above: Performed By: #### L [id number] ####Masonry Contractor: LILIA KNOX ([id number])[facility])[address] [place] [address] Protein (U) [Mass/Vol] 10 mg/dL Abnormal Negative [facility] Comment on above: Performed By: #### L [id number] ####Masonry Contractor: LILIA KNOX ([id number])[facility])[address] [place] [address] RBC (#/HPF) IN URINE SEDIMENT 0-2 Normal 0-2 [facility] Comment on above: Performed By: #### L [id number] ####Masonry Contractor: LILIA KNOX ([id number])[facility])[address] [place] [address] Specific gravity (U) [Rel density] 1.020 Normal 1.005-1.030 [facility] Comment on above: Performed By: #### L [id number] ####Masonry Contractor: LILIA KNOX ([id number])[facility] ([facility])[address] [place] [address] SQUAMOUS EPITHELIAL CELLS (#/HPF) IN URINE SEDIMENT Negative Normal 3-5 [facility] Comment on above: Performed By: #### L [id number] ####Masonry Contractor: LILIA KNOX ([id number])[facility] [place] [address] UROBILINOGEN (MG/DL) IN URINE Normal Normal Normal (0-1) [facility] Comment on above: Performed By: #### L [id number] ####Masonry Contractor: LILIA KNOX ([id number])[facility] ([facility])[address] [place] [address] WBC (LEUKOCYTE) (#/HPF) IN URINE SEDIMENT 3-5 Normal 0-5 [facility] Comment on above: Performed By: #### L [id number] ####Masonry Contractor: LILIA KNOX ([id number])[facility])[address] [place] [address] DRUGS OF ABUSEon 11-07-2023 AMPHETAMINE SCREEN Negative Normal [facility] Comment on above: Performed By: #### L AB20, LAB15, LAB46 #### Masonry Contractor: LILIA KNOX ([id number]) [facility]) [address] [place] [address] BARBITURATES SCREEN Negative Normal [facility] Comment on above: Performed By: #### L AB20, LAB15, LAB46 #### Masonry Contractor: LILIA KNOX ([id number]) [facility]) [address] [place] [address] [place] BENZODIAZEPINE SCREEN Negative Normal [facility] Comment on above: Performed By: #### L AB20, LAB15, LAB46 #### Masonry Contractor: LILIA KNOX ([id number]) [facility] [address] [place] [address] [place] COCAINE METAB. SCREEN Negative Normal [facility] Comment on above: Performed By: #### L AB20, LAB15, LAB46 #### Masonry Contractor: LILIA KNOX ([id number]) [facility] [address] [place] [address] METHADONE SCREEN Negative Normal [facility] Comment on above: Performed By: #### L AB20, LAB15, LAB46 #### Masonry Contractor: LILIA KNOX ([id number]) [facility] ([facility]) [address] [place] [address] OPIATES SCREEN Negative Normal [facility] Comment on above: Performed By: #### L AB20, LAB15, LAB46 #### Masonry Contractor: LILIA KNOX ([id number]) [facility] ([facility]) [address] [place] [address] OXYCODONE SCREEN Negative Normal [facility] Comment on above: Performed By: #### L AB20, LAB15, LAB46 #### Masonry Contractor: LILIA KNOX ([id number]) [facility] [address] [place] [address] PHENCYCLIDINE SCREEN Negative [facility] [...] By: #### L AB20, LAB15, LAB46 #### Masonry Contractor: LILIA KNOX ([id number]) [facility] ([facility]) [address] [place] [address] ED Provider Noteon 4 ED Provider Note Emergency Department Encounter Location: [facility] EM[facility]GENCY [facility] Patient: Mayito Forbes : [...] insurance and could not be admitted to [facility] without being full self-pay. Patient notified of same. Collaboration took place between myself, ED Attending Dr. Lainez, Social Work, [facility], and MAT RN. Ultimately it was determined that patient would be best served at [facility] where he could be admitted medically, but also be provided with detox services. Patient is in agreement with this plan. Patient was medicated numerous times for symptoms while in ED, received total of 1.25 mg IV droperidol, 25 mg IV diphenhydramine, 10 mg IV (more content not included)... Normal [facility] ED Provider Note EMERGENCY DEPARTMENT ENCOUNTER Pt Name: Mayito Forbes Birthdate 1985 Date of evaluation: 11/07/2023 ED Provider: Bill Trimble, MARINE SCIENTIST - FORESTRY BIOLOGY SPECIALIST Patient seen independently within my scope of [...] min Stress: No Stress Concern Present (10/25/2023) [employer] - Occupational Stress Questionnaire Feeling of Stress : Not at all Social Connections: Moderately Isolated (10/25/2023) Social Connection and Isolation Panel [NHANES] Frequency of Communication with Friends and Family: Three times a week Frequency of Social Gatherings with Friends and Family: Three times a week Attends Evangelical Services: Never Active Member of Clubs or [...] Number o (more content not included)... Normal [facility] ETHANOLon 11-07-2023 ETHANOL IN SER/PLAS <0.010 Normal 0.000-0.010 [facility] Comment on above: Result Comment: EZ Ding COMMENTS: NOTE: This result is for medical treatment only. Analysis performed using non-forensic procedures. Performed By: #### L AB20, LAB15, LAB46 #### Masonry Contractor: LILIA KNOX ([phone]) [facility] ([facility]) [address] [place] [address] Ethanol (Bld) [Mass/Vol]on 0 11-07-2023 Ethanol [Mass/Vol] g/dL 0.000 - 0.010 g/dL [facility] FENTANYL, URINEon 11-07-2023 FENTANYL SCREEN, URINE Positive Normal Negative [facility] Comment on above: Result Comment: EZ Ding COMMENTS: Fentanyl has been screened for by Immunoassay at a 1 ng/ml threshold. POSITIVE results are not confirmed by a more specific alternative method unless requested. If confirmation is needed, request confirmation under separate order. NOTE: These results are for medical treatment only. Analysis performed using non-forensic procedures. Performed By: #### L [id number] #### Masonry Contractor: LILIA KNOX ([phone]) [facility]) [address] [place] [address] HEPATIC FUNCTION PANELon Albumin [Mass/Vol] 4.4 g/dL Normal 3.5-5.0 [facility] Comment on above: Performed By: #### L AB20, LAB15, LAB46 #### Masonry Contractor: LILIA KNOX ([id number]) [facility]) [address] [place] [address] ALP [Catalytic activity/Vol] 96 U/L Normal 38-126 [facility] Comment on above: Performed By: #### L AB20, LAB15, LAB46 #### Masonry Contractor: LILIA KNOX ([id number]) [facility]) [address] [place] [address] ALT [Catalytic activity/Vol] 30 U/L Normal 0-49 [facility] Comment on above: Performed By: #### L AB20, LAB15, LAB46 #### Masonry Contractor: LILIA KNOX ([id number]) [facility]) [address] [place] [address] AST [Catalytic activity/Vol] 33 U/L Normal 15-46 [facility] Comment on above: Performed By: #### L AB20, LAB15, LAB46 #### Masonry Contractor: LILIA KNOX ([id number]) [facility]) [address] [place] [address] Bilirubin [Mass/Vol] 0.6 mg/dL Normal 0.2-1.3 [facility] Comment on above: Performed By: #### L AB20, LAB15, LAB46 #### Masonry Contractor: LILIA KNOX ([id number]) [facility] ([facility]) [address] [place] [address] Bilirubin.indirect [Mass/Vol] 0.0 mg/dL Normal 0.0-0.3 [facility] Comment on above: Performed By: #### L AB20, LAB15, LAB46 #### Masonry Contractor: LILIA KNOX ([id number]) [facility] [address] [place] [address] Protein [Mass/Vol] 7.5 g/dL Normal 6.3-8.2 [facility] Comment on above: Performed By: #### L AB20, LAB15, LAB46 #### Masonry Contractor: LILIA KNOX ([id number]) [facility] [address] [place] [address] Hepatic function 2000 panelo n 11-07-2023 Albumin [Mass/Vol] 4.4 g/dL 3.5 - 5.0 g/dL [facility] ALP [Catalytic activity/Vol] 96 U/L 38 - 126 U/L [facility] ALT [Catalytic activity/Vol] 30 U/L 0 - 49 U/L [facility] AST [Catalytic activity/Vol] 33 U/L 15 - 46 U/L [facility] Bilirubin [Mass/Vol] 0.6 mg/dL 0.2 - 1 .3 mg/dL [facility] Bilirubin.conjugated [Mass/Vol] 0.0 mg/dL 0.0 - 0.3 mg/dL [facility] Protein [Mass/Vol] 7.5 g/dL 6.3 - 8.2 g/dL [facility] Laboratory - Drug toxicology Ordered By: Danni Boyce on 11-07-2023 Amphetamines Screen method >1000 ng/mL Ql (U) Negative [facility] Barbiturates Screen method >200 ng/mL Ql (U) Negative [facility] Benzodiazepines Ql (U) Negative [facility] Methadone Screen Ql (U) Negative [facility] Opiates Screen Ql (U) Negative [facility] oxyCODONE Ql (U) Negative [facility] Phencyclidine Ql (U) Negative [facility] Laboratory - Microbiology an d Antimicrobial susceptibilityOrdered By: Lisa Schwartz on 11-07-2023 SARS-CoV-2 (COVID-19) Ag IA.rapid Ql (Resp) Negative Negative [facility] Comment on above: A negative result do es not rule out the possibility of SARS-CoV-2 infection. NAAT-based methods should be considered for symptomatic patients presenting greater than seven days after onset of symptoms. Method: Lateral flow immunoassay. Fact sheets for healthcare providers and patients can be found at the following sites: https://www.fda.gov/media/799827/download https://www.[employer].gov/media/531981/download No Panel InformationOrdered By: Danni Boyce on 11-07-2023 COCAINE METAB. SCREEN Negative [facility] [employer] The expected value f or all of [...] is needed, request confirmation under separate order. [facility] No Panel Informationon 11-06 Interpretation and review of laboratory results Normal [facility] SARS-COV-2 ANTIGENon 024 SARS-COV-2 ANTIGEN SARS-COV-2 ANTIGEN -BINAX Reference Negative Negative A negative result does not rule out the possibility of SARS-CoV-2 infection. NAAT-based methods should be considered for symptomatic patients presenting greater than seven days after onset of symptoms. Method: Lateral flow immunoassay. Fact sheets for healthcare providers and patients can be found at the following sites: https://www.fda.gov/med ia/134414/download https://www.fda.gov/med ia/564977/download Normal [facility] Comment on above: Performed By: #### L [id number] #### Masonry Contractor: PARTH TADEO ([id number]) [facility]OVA[facility] SCHWARTZ ([facility]) [address] SARS-CoV-2 (COVID-19) Ag IA. rapid Ql (Resp)Ordered By: Lisa Schwartz on 11-07-2023 Interpretation and review of laboratory results Normal [facility] Urinalysis complete panel (U )Ordered By: Mayito Lee on 11-07-2023 Bacteria LM.HPF (Urine sed) [#/Area] Negative Negative /HPF [facility] Bilirubin Ql (U) Negative Negative mg/dL [facility] Clarity (U) Clear Clear [facility] Color (U) Yellow Lt. Yellow [facility] Epithelial cells.squamous LM.HPF (Urine sed) [#/Area] Negative [facility] Glucose Ql (U) Normal Normal (<70) mg/dL [facility] Hemoglobin Ql (U) Negative Negative mg/dL [facility] Hyaline casts Auto (Urine sed) [#/Area] Negative Negative /LPF [facility] Interpretation and review of laboratory results Abnormal [facility] Ketones (U) [Mass/Vol] 20 mg/dL Abnormal Negative [facility] Leukocyte esterase Test strip Ql (U) Negative Negative Raina/uL [facility] Nitrite Ql (U) Negative Negative [facility] th pH (U) 8.0 [pH] 5.0 - 8.0 pH [facility] Protein (U) [Mass/Vol] 10 mg/dL Abnormal Negative [facility] RBC LM.HPF (Urine sed) [#/Area] 0-2 [facility] Specific gravity (U) [Rel density] 1.020 1.005 - 1.030 [facility] Urobilinogen (U) [Mass/Vol] Normal Normal (0-1) mg/dL [facility] WBC LM.HPF (Urine sed) [#/Area] 3-5 [facility] 3611-01-2023 36 Left a message to return call to [facility] for appointment with Dr. Andrews on 11/02/23. If the patient calls back during business hours, please transfer to our backline. Otherwise, Please arrive 15 minutes early with your insurance card and photo ID. Thank you! [facility] 10-31-2023 36 Okay, thank you but I do not treat opioid use disorders. Normal [facility] 10-29-2023 36 S: [facility] Inpatient provider requesting new patient/transition of care appointment for Opioid Use Disorder & Nausea/Vomiting. Pt discharged today 10/29/23 B: New patient appt A: Pt located in [place] per provider. R: Pt scheduled 11/02/23 with at [facility]. Provider notified. [facility] Nursing Noteon 10-29-2023 Nursing Note Discharge orders reviewed. Pt home meds returned. Work release provided by attending. [facility] 10-28-2023 [facility] Care Managment Initi al Assessment Date: 10/28/2023 Patient Name: Mayito Forbes : 1985 Patient Information Source of Information: Patient Cognition/Language: WFL - Within Functional Limits Permission given to speak with patient direct marketing representative/caregive r as indicated: Yes (Audrey Ayers (Significant Other) [phone]) Confirmation of Payer with patient/family: Yes Payer Name: [employer]- [employer]. : No Confirmation of [...] will continue to follow. Sirena Plunkett RN [facility] Progress Noteon 10-28-2023 Progress Note Addiction [...] min Stress: No Stress Concern Present (10/25/2023) [employer] - Occupational Stress Questionnaire Feeling of Stress : Not at all Social Connections: Moderately Isolated (10/25/2023) Social Connection and Isolation Panel [NHANES] Frequency of Communication with Friends and Family: Three times a week Frequency of Social Gatherings with Friends and Family: Three times a week Attends Evangelical Services: Never Active Member of Clubs or [...] acetaminophen, dicycl (more content not included)... Normal [facility] BASIC METABOLIC PANELon 09-29 Anion gap [Moles/Vol] 6 mmol/L Normal 3-13 [facility] Comment on above: Performed By: #### L AB15 ####Masonry Contractor: PARTH TADEO ([id number])[facility] HOSPITALPadmini SCHWARTZ (SBHLAB)[address] Calcium [Mass/Vol] 8.3 mg/dL Low 8.4-10.4 [facility] Comment on above: Performed By: #### L [id number] ####Masonry Contractor: PARTH TADEO ([id number])[facility]OSPITALPadmini RIOSN (SBHLAB)[address] Chloride [Moles/Vol] 105 mmol/L Normal 98-107 [facility] Comment on above: Performed By: #### L [id number] ####Masonry Contractor: PARTH TADEO ([id number])[facility] HOSPITALPadmini [facility]ASCARRI[facility] TINGLEY HOSPITALN (SBHLAB)[address] CO2 [Moles/Vol] 26 mmol/L Normal 22-30 [facility] Comment on above: Performed By: #### L [id number] ####Masonry Contractor: PARTH TADEO ([id number])[facility]THACARRI[facility] TINGLEY HOSPITALN (SBHLAB)[address] Creatinine [Mass/Vol] 0.78 mg/dL Normal 0.66-1.25 [facility] Comment on above: Performed By: #### L [id number] ####Masonry Contractor: PARTH TADEO ([id number])[facility]OSPITALPadmini THOMASCAROL (SBHLAB)[address] GLOMERULAR FILTRATION RATE ML/MIN/1.73 SQ M.PREDICTED >90.0 Normal >60.0 [facility] Comment on above: Result Comment: Calc ulation based on the Chronic Kidney Disease Epidemiology Collaboration (CKD-EPI) equation refit without adjustment for race Performed By: #### L [id number] ####Masonry Contractor: PARTH TADEO ([id number])[facility] HOSPITALPadmini [facility] HOSPITALGINNYN (SBHLAB)[address] Glucose [Mass/Vol] 97 mg/dL Normal 70-100 [facility] Comment on above: Performed By: #### L [id number] ####Masonry Contractor: PARTH TADEO ([id number])[facility]OSPITALPad[facility] RIOSN (SBHLAB)[address] Potassium [Moles/Vol] 3.7 mmol/L Normal 3.5-5.1 [facility] Comment on above: Performed By: #### L [id number] ####Masonry Contractor: PARTH TADEO ([id number])[facility]OSPITALPadmini THOMASCARRIE TINGLEY HOSPITALN (SBHLAB)[address] Sodium [Moles/Vol] 137 mmol/L Normal 135-145 [facility] Comment on above: Performed By: #### L [id number] ####Masonry Contractor: PARTH TADEO ([id number])[facility]OSPITALPadmini SCHWARTZ (SBHLAB)[address] Urea nitrogen [Mass/Vol] 12 mg/dL Normal 9-20 [facility] Comment on above: Performed By: #### L [id number] ####Masonry Contractor: PARTH TADEO ([id number])[facility] (SBHLAB)[address] [place] [address] Basic metabolic 1998 panelon 10-27-2023 Anion gap [Moles/Vol] 6 mmol/L 3 - 13 mmol/L [facility] Calcium [Mass/Vol] 8.3 mg/dL Low 8.4 - 10. 4 mg/dL [facility] Chloride [Moles/Vol] 105 mmol/L 98 - 10 7 mmol/L [facility] CO2 [Moles/Vol] 26 mmol/L 22 - 30 mmol/L [facility] Creatinine [Mass/Vol] 0.78 mg/dL 0.66 - 1.25 mg/dL [facility] GFR/1.73 sq M.predicted MDRD (S/P/Bld) [Vol rate/Area] - PINF [facility] Comment on above: Calculation based on the Chronic Kidney Disease Epidemiology Collaboration (CKD-EPI) equation refit without adjustment for race Glucose [Mass/Vol] 97 mg/dL 70 - 100 mg/dL [facility] Interpretation and review of laboratory results Abnormal [facility] Potassium [Moles/Vol] 3.7 mmol/L 3.5 - 5.1 mmol/L [facility] Sodium [Moles/Vol] 137 mmol/L 135 - 145 mmol/L [facility] Urea nitrogen [Mass/Vol] 12 mg/dL 9 - 20 mg/dL [facility] CBC W Auto Differential pane l (Bld)on 10-27-2023 Basophils (Bld) [#/Vol] 0.1 10*3/uL 0.0 - 0.2 10*3/uL [facility] Basophils/100 WBC (Bld) 0.6 % 0.0 - 2.0 % [facility] Eosinophils (Bld) [#/Vol] 0.2 10*3/uL 0.0 - 0.5 10*3/uL [facility] Eosinophils/100 WBC (Bld) 2.0 % 0.0 - 6.0 % [facility] Erythrocyte distribution width (RBC) [Ratio] 12.1 % 11.5 - 15.0 % [facility] Hematocrit (Bld) [Volume fraction] 41.6 % 40.0 - 52.0 % [facility] Hemoglobin (Bld) [Mass/Vol] 14.4 g/dL 13.0 - 18.0 g/dL [facility] Immature granulocytes (Bld) [#/Vol] 0.0 10*3/uL NINF - 0.1 10*3/uL [facility] Immature granulocytes/100 WBC (Bld) 0.4 % 0.0 - 2.0 % [facility] Interpretation and review of laboratory results Abnormal [facility] Lymphocytes (Bld) [#/Vol] 2.8 10*3/uL 1.0 - 4.3 10*3/uL [facility] Lymphocytes/100 WBC (Bld) 33.1 % 15.0 - 45.0 % [facility] MCH (RBC) [Entitic mass] 30.7 pg 26. 0 - 34.0 pg [facility] MCHC (RBC) [Mass/Vol] 34.6 % 30.5 - 36.0 % [facility] MCV (RBC) [Entitic vol] 88.7 fL 77.0 - 99.0 fL [facility] Monocytes (Bld) [#/Vol] 0.7 10*3/uL 0.0 - 0.9 10*3/uL [facility] Monocytes/100 WBC (Bld) 7.9 % 5.0 - 13.0 % [facility] Neutrophils (Bld) [#/Vol] 4.8 10*3/uL 1.8 - 7.5 10*3/uL [facility] Neutrophils/100 WBC (Bld) 56.0 % 38.0 - 82.0 % [facility] Nucleated RBC/100 WBC (Bld) [Ratio] 0.0 % [facility] Platelet mean volume (Bld) [Entitic vol] 8.8 fL Low 9.0 - 12.7 fL [facility] Platelets (Bld) [#/Vol] 219 10*3/uL 140 - 440 10*3/uL [facility] RBC (Bld) [#/Vol] 4.69 10*6/uL 4.40 - 5.9 0 10*6/uL [facility] WBC (Bld) [#/Vol] 8.6 10*3/uL 3.6 - 10.7 10*3/uL [facility] CBC WITH AUTO DIFFERENTIALon 10-27-2023 Basophils (Bld) [#/Vol] 0.1 10*3/uL Normal 0.0-0.2 [facility] Comment on above: Performed By: #### L [id number] #### Masonry Contractor: PARTH TADEO ([id number]) [facility] (SBAB) [address] Basophils/100 WBC (Bld) 0.6 % Normal 0.0-2.0 [facility] Comment on above: Performed By: #### L [id number] #### Masonry Contractor: PARTH TADEO ([id number]) [facility] (SBHLAB) [address] Eosinophils (Bld) [#/Vol] 0.2 10*3/uL Normal 0.0-0.5 [facility] Comment on above: Performed By: #### L [id number] #### Masonry Contractor: PARTH TADEO ([id number]) [facility] (SBHLAB) [address] Eosinophils/100 WBC (Bld) 2.0 % Normal 0.0-6.0 [facility] Comment on above: Performed By: #### L [id number] #### Masonry Contractor: PARTH TADEO ([id number]) [facility] [address] Erythrocyte distribution width (RBC) [Ratio] 12.1 % Normal 11.5-15.0 [facility] Comment on above: Performed By: #### L [id number] #### Masonry Contractor: PARTH TADEO ([id number]) [facility] [address] Hematocrit (Bld) [Volume fraction] 41.6 % Normal 40.0-52.0 [facility] Comment on above: Performed By: #### L [id number] #### Masonry Contractor: PARTH ROWLEYGAVIN ([id number]) [facility] [address] [place] [address] Hemoglobin (Bld) [Mass/Vol] 14.4 g/dL Normal 13.0-18.0 [facility] Comment on above: Performed By: #### L [id number] #### Masonry Contractor: PARTH TADEO ([id number]) [facility] [address] IMMATURE GRANS % 0.4 % Normal 0.0-2.0 [facility] Comment on above: Performed By: #### L [id number] #### Masonry Contractor: PARTH TADEO ([id number]) [facility] [address] IMMATURE GRANS ABSOLUTE 0.0 10*3/uL Normal <0.1 [facility] Comment on above: Performed By: #### L [id number] #### Masonry Contractor: PARTH TADEO ([id number]) [facility] [address] Lymphocytes (Bld) [#/Vol] 2.8 10*3/uL Normal 1.0-4.3 [facility] Comment on above: Performed By: #### L [id number] #### Masonry Contractor: PARTH TADEO ([id number]) [facility] (SBHLAB) [address] Lymphocytes/100 WBC (Bld) 33.1 % Normal 15.0-45.0 [facility] Comment on above: Performed By: #### L [id number] #### Masonry Contractor: PARTH TADEO ([id number]) [facility] (SBHLAB) [address] MCH (RBC) [Entitic mass] 30.7 pg Normal 26.0-34.0 [facility] Comment on above: Performed By: #### L [id number] #### Masonry Contractor: PARTH ROWLEYGAVIN ([id number]) [facility] (SBHLAB) [address] MCHC 34.6 % Normal 30.5-36.0 [facility] Comment on above: Performed By: #### L [id number] #### Masonry Contractor: PARTH TADEO ([id number]) [facility] (SBHLAB) [address] MCV (RBC) [Entitic vol] 88.7 fL Normal 77.0-99.0 [facility] Comment on above: Performed By: #### L [id number] #### Masonry Contractor: PARTH TADEO ([id number]) [facility] (SBHLAB) [address] Monocytes (Bld) [#/Vol] 0.7 10*3/uL Normal 0.0-0.9 [facility] Comment on above: Performed By: #### L [id number] #### Masonry Contractor: PARTH TADEO ([id number]) [facility] (SBHLAB) [address] Monocytes/100 WBC (Bld) 7.9 % Normal 5.0-13.0 [facility] Comment on above: Performed By: #### L [id number] #### Masonry Contractor: PARTH TADEO ([id number]) [facility] (SBHLAB) [address] NEUTROPHILS ABSOLUTE 4.8 10*3/uL Normal 1.8-7.5 [facility] Comment on above: Performed By: #### L [id number] #### Masonry Contractor: PARTH TADEO ([id number]) [facility] [address] Neutrophils/100 WBC (Bld) 56.0 % Normal 38.0-82.0 [facility] Comment on above: Performed By: #### L [id number] #### Masonry Contractor: PARTH TADEO ([id number]) [facility] (SBHLAB) [address] NRBC 0.0 /100 WBCs Normal 0.0-2.0 [facility] Comment on above: Performed By: #### L [id number] #### Masonry Contractor: PARTH TADEO ([id number]) [facility] (SBHLAB) [address] Platelet mean volume (Bld) [Entitic vol] 8.8 fL Low 9.0-12.7 [facility] Comment on above: Performed By: #### L [id number] #### Masonry Contractor: PARTH TADEO ([id number]) [facility] ([facility] [address] [place] [address] [place] Platelets (Bld) [#/Vol] 219 10*3/uL Normal 140-440 [facility] Comment on above: Performed By: #### L [id number] #### Masonry Contractor: PARTH TADEO ([id number]) [facility] [address] [place] [address] [place] RBC (Bld) [#/Vol] 4.69 10*6/uL Normal 4.40-5.90 [facility] Comment on above: Performed By: #### L [id number] #### Masonry Contractor: PARTH TADEO ([id number]) [facility] (HLAB) [address] WBC (Bld) [#/Vol] 8.6 10*3/uL Normal 3.6-10.7 [facility] Comment on above: Performed By: #### L [id number] #### Masonry Contractor: PARTH TADEO ([id number]) [facility] (SBHLAB) [address] IDNon 10-27-2023 IDN The patient is [...] to address these barriers include none. Normal [facility] Nursing Noteon 10-27-2023 Nursing Note Pt IV removed at thi s time per Dr. Conway. Normal [facility] Progress Noteon 10-27-2023 Progress Note Nutrition rescreen completed. Patient assigned a level [address] [facility] Progress Note Addiction Medicine Patient: Mayito [...] he is not willing to transfer to [facility]. He is willing to stay at [facility] and complete detoxification. Social History Socioeconomic History [...] min Stress: No Stress Concern Present (10/25/2023) [employer] - Occupational Stress Questionnaire Feeling of Stress : Not at all Social Connections: Moderately Isolated (10/25/2023) Social Connection and Isolation Panel [NHANES] Frequency of Communication with Friends and Family: Three times a week Frequency of Social Gatherings with Friends and Family: Three times a week Attends Evangelical Services: Never Active Member of Clubs or [...] 0 ms QTC Interval 0 ms P [place] 76 degrees QRS [place] 75 degrees T Wave [place] 74 degrees [place] Interval 115 ms Fentanyl, urine Collection Time: [...] /HPF M (more content not included)... Normal [facility] Progress Note Transfer from CDU to service. Josef Guerra MD Division of Hospitalist Medicine Acute care solutions Normal [facility] BASIC METABOLIC PANELon 05- Anion gap [Moles/Vol] 12 mmol/L Normal 3-13 [facility] Comment on above: Performed By: #### L [id number] #### Masonry Contractor: PARTH TADEO ([id number]) [facility] (SBHLAB) [address] Calcium [Mass/Vol] 9.0 mg/dL Normal 8.4-10.4 [facility] Comment on above: Performed By: #### L [id number] #### Masonry Contractor: PARTH TADEO ([id number]) [facility] (SBHLAB) [address] Chloride [Moles/Vol] 103 mmol/L Normal 98-107 [facility] Comment on above: Performed By: #### L [id number] #### Masonry Contractor: PARTH TADEO ([id number]) [facility] (SBHLAB) [address] CO2 [Moles/Vol] 28 mmol/L Normal 22-30 [facility] Comment on above: Performed By: #### L [id number] #### Masonry Contractor: PARTH TADEO ([id number]) [facility] (SBHLAB) [address] Creatinine [Mass/Vol] 1.04 mg/dL Normal 0.66-1.25 [facility] Comment on above: Performed By: #### L [id number] #### Masonry Contractor: PARTH TADEO ([id number]) [facility] (SBHLAB) [address] GLOMERULAR FILTRATION RATE ML/MIN/1.73 SQ M.PREDICTED >90.0 Normal >60.0 [facility] Comment on above: Result Comment: Calc ulation based on the Chronic Kidney Disease Epidemiology Collaboration (CKD-EPI) equation refit without adjustment for race Performed By: #### L [id number] #### Masonry Contractor: PARTH TADEO ([id number]) [facility] (SBHLAB) [address] [place] [address] [place] Glucose [Mass/Vol] 124 mg/dL High 70-100 [facility] Comment on above: Performed By: #### L [id number] #### Masonry Contractor: PARTH TADEO ([id number]) [facility] (SBHLAB) [address] [place] [address] [place] Potassium [Moles/Vol] 3.6 mmol/L Normal 3.5-5.1 [facility] Comment on above: Performed By: #### L [id number] #### Masonry Contractor: PARTH TADEO ([id number]) [facility] (SBHLAB) [address] Sodium [Moles/Vol] 143 mmol/L Normal 135-145 [facility] Comment on above: Performed By: #### L [id number] #### Masonry Contractor: PARTH TADEO ([id number]) [facility] (SBHLAB) [address] Urea nitrogen [Mass/Vol] 16 mg/dL Normal 9-20 [facility] Comment on above: Performed By: #### L [id number] #### Masonry Contractor: PARTH TADEO ([id number]) [facility] (SBHLAB) [address] Basic metabolic 1998 panelon 10-26-2023 Anion gap [Moles/Vol] 12 mmol/L 3 - 13 mmol/L [facility] Calcium [Mass/Vol] 9.0 mg/dL 8.4 - 10. 4 mg/dL [facility] Chloride [Moles/Vol] 103 mmol/L 98 - 10 7 mmol/L [facility] CO2 [Moles/Vol] 28 mmol/L 22 - 30 mmol/L [facility] Creatinine [Mass/Vol] 1.04 mg/dL 0.66 - 1.25 mg/dL [facility] GFR/1.73 sq M.predicted MDRD (S/P/Bld) [Vol rate/Area] - PINF [facility] Comment on above: Calculation based on the Chronic Kidney Disease Epidemiology Collaboration (CKD-EPI) equation refit without adjustment for race Glucose [Mass/Vol] 124 mg/dL High 70 - 100 mg/dL [facility] Interpretation and review of laboratory results Abnormal [facility] Potassium [Moles/Vol] 3.6 mmol/L 3.5 - 5.1 mmol/L [facility] Sodium [Moles/Vol] 143 mmol/L 135 - 145 mmol/L [facility] Urea nitrogen [Mass/Vol] 16 mg/dL 9 - 20 mg/dL [facility] CBC W Auto Differential pane l (Bld)Ordered By: Laurie Carvajal on 10-26-2023 Basophils (Bld) [#/Vol] 0.0 10*3/uL 0.0 - 0.2 10*3/uL [facility] Basophils/100 WBC (Bld) 0.3 % 0.0 - 2.0 % [facility] Eosinophils (Bld) [#/Vol] 0.0 10*3/uL 0.0 - 0.5 10*3/uL [facility] Eosinophils/100 WBC (Bld) 0.0 % 0.0 - 6.0 % [facility] Erythrocyte distribution width (RBC) [Ratio] 12.3 % 11.5 - 15.0 % [facility] Hematocrit (Bld) [Volume fraction] 48.5 % 40.0 - 52.0 % [facility] Hemoglobin (Bld) [Mass/Vol] 17.0 g/dL 13.0 - 18.0 g/dL [facility] Immature granulocytes (Bld) [#/Vol] 0.0 10*3/uL NINF - 0.1 10*3/uL [facility] Immature granulocytes/100 WBC (Bld) 0.3 % 0.0 - 2.0 % [facility] Interpretation and review of laboratory results Abnormal [facility] Lymphocytes (Bld) [#/Vol] 1.5 10*3/uL 1.0 - 4.3 10*3/uL [facility] Lymphocytes/100 WBC (Bld) 13.6 % Low 15.0 - 45.0 % [facility] MCH (RBC) [Entitic mass] 30.9 pg 26. 0 - 34.0 pg [facility] MCHC (RBC) [Mass/Vol] 35.1 % 30.5 - 36.0 % [facility] MCV (RBC) [Entitic vol] 88.0 fL 77.0 - 99.0 fL [facility] Monocytes (Bld) [#/Vol] 1.0 10*3/uL High 0.0 - 0.9 10*3/uL [facility] Monocytes/100 WBC (Bld) 8.7 % 5.0 - 13.0 % [facility] Neutrophils (Bld) [#/Vol] 8.7 10*3/uL High 1.8 - 7.5 10*3/uL [facility] Neutrophils/100 WBC (Bld) 77.1 % 38.0 - 82.0 % [facility] Nucleated RBC/100 WBC (Bld) [Ratio] 0.0 % [facility] Platelet mean volume (Bld) [Entitic vol] 8.8 fL Low 9.0 - 12.7 fL [facility] Platelets (Bld) [#/Vol] 253 10*3/uL 140 - 440 10*3/uL [facility] RBC (Bld) [#/Vol] 5.51 10*6/uL 4.40 - 5.9 0 10*6/uL [facility] WBC (Bld) [#/Vol] 11.2 10*3/uL High 3.6 - 10.7 10*3/uL [facility] CBC WITH AUTO DIFFERENTIALon 10-26-2023 Basophils (Bld) [#/Vol] 0.0 10*3/uL Normal 0.0-0.2 [facility] Comment on above: Performed By: #### L [id number] #### Masonry Contractor: PARTH TADEO ([id number]) [facility] (SBHLAB) [address] Basophils/100 WBC (Bld) 0.3 % Normal 0.0-2.0 [facility] Comment on above: Performed By: #### L [id number] #### Masonry Contractor: PARTH TADEO ([id number]) [facility] [address] [place] [address] [place] Eosinophils (Bld) [#/Vol] 0.0 10*3/uL Normal 0.0-0.5 [facility] Comment on above: Performed By: #### L [id number] #### Masonry Contractor: PARTH TADEO ([id number]) [facility] (SBHLAB) [address] [place] [address] [place] Eosinophils/100 WBC (Bld) 0.0 % Normal 0.0-6.0 [facility] Comment on above: Performed By: #### L [id number] #### Masonry Contractor: PARTH [id number]) [facility] (SBHLAB) [address] Erythrocyte distribution width (RBC) [Ratio] 12.3 % Normal 11.5-15.0 [facility] Comment on above: Performed By: #### L [id number] #### Masonry Contractor: PARTH TADEO ([id number]) [facility] [address] Hematocrit (Bld) [Volume fraction] 48.5 % Normal 40.0-52.0 [facility] Comment on above: Performed By: #### L [id number] #### Masonry Contractor: PARTH TADEO ([id number]) [facility] [address] [place] [address] Hemoglobin (Bld) [Mass/Vol] 17.0 g/dL Normal 13.0-18.0 [facility] Comment on above: Performed By: #### L [id number] #### Masonry Contractor: PARTH TADEO ([id number]) [facility] [address] IMMATURE GRANS % 0.3 % Normal 0.0-2.0 [facility] Comment on above: Performed By: #### L [id number] #### Masonry Contractor: PARTH TADEO ([id number]) [facility] [address] IMMATURE GRANS ABSOLUTE 0.0 10*3/uL Normal <0.1 [facility] Comment on above: Performed By: #### L [id number] #### Masonry Contractor: PARTH TADEO ([id number]) [facility] [address] Lymphocytes (Bld) [#/Vol] 1.5 10*3/uL Normal 1.0-4.3 [facility] Comment on above: Performed By: #### L [id number] #### Masonry Contractor: PARTH TADEO ([id number]) [facility] (SBHLAB) [address] Lymphocytes/100 WBC (Bld) 13.6 % Low 15.0-45.0 [facility] Comment on above: Performed By: #### L [id number] #### Masonry Contractor: PARTH TADEO ([id number]) [facility] [place] (SBHLAB) [address] MCH (RBC) [Entitic mass] 30.9 pg Normal 26.0-34.0 [facility] Comment on above: Performed By: #### L [id number] #### Masonry Contractor: PARTH TADEO ([id number]) [facility] (SBHLAB) [address] MCHC 35.1 % Normal 30.5-36.0 [facility] Comment on above: Performed By: #### L [id number] #### Masonry Contractor: PARTH TADEO ([id number]) [facility] (SBHL[facility]) [address] MCV (RBC) [Entitic vol] 88.0 fL Normal 77.0-99.0 [facility] Comment on above: Performed By: #### L [id number] #### Masonry Contractor: PARTH TADEO ([id number]) [facility] (SBHLAB) [address] [place] [address] [place] Monocytes (Bld) [#/Vol] 1.0 10*3/uL High 0.0-0.9 [facility] Comment on above: Performed By: #### L [id number] #### Masonry Contractor: PARTH TADEO ([id number]) [facility] ([facility]) [address] Monocytes/100 WBC (Bld) 8.7 % Normal 5.0-13.0 [facility] Comment on above: Performed By: #### L [id number] #### Masonry Contractor: PARTH TADEO ([id number]) [facility] (SBHL[facility]) [address] NEUTROPHILS ABSOLUTE 8.7 10*3/uL High 1.8-7.5 [facility] Comment on above: Performed By: #### L [id number] #### Masonry Contractor: PARTH TADEO ([id number]) [facility] (SBHLAB) [address] Neutrophils/100 WBC (Bld) 77.1 % Normal 38.0-82.0 [facility] Comment on above: Performed By: #### L [id number] #### Masonry Contractor: PARTH TADEO ([id number]) [facility] (SBHLAB) [address] NRBC 0.0 /100 WBCs Normal 0.0-2.0 [facility] Comment on above: Performed By: #### L [id number] #### Masonry Contractor: PARTH TADEO ([id number]) [facility] (SBHLAB) [address] [place] [address] [place] Platelet mean volume (Bld) [Entitic vol] 8.8 fL Low 9.0-12.7 [facility] Comment on above: Performed By: #### L [id number] #### Masonry Contractor: PARTH TADEO ([id number]) [facility] [address] [place] [address] [place] Platelets (Bld) [#/Vol] 253 10*3/uL Normal 140-440 [facility] Comment on above: Performed By: #### L [id number] #### Masonry Contractor: PARTH TADEO ([id number]) [facility] (SBHLAB) [address] [place] [address] [place] RBC (Bld) [#/Vol] 5.51 10*6/uL Normal 4.40-5.90 [facility] Comment on above: Performed By: #### L [id number] #### Masonry Contractor: PARTH TADEO ([id number]) [facility] (SBAB) [address] WBC (Bld) [#/Vol] 11.2 10*3/uL High 3.6-10.7 [facility] Comment on above: Performed By: #### L [id number] #### Masonry Contractor: PARTH TADEO ([id number]) [facility] [address] Consulton 10-26-2023 Consult Addiction Medicine Patient: Mayito Forbes Admit Date: 10/25/2023 Primary Care Physician: No primary care provider on file. History of Present Illness The patient is a 38-year-old male presenting to [facility] for complaints of vomiting, diarrhea, generalized [...] he states he has been involved in [employer] but obviously has been unable to stay clean. He intends to return to [employer]. Social History Socioeconomic History Marital status: Single [...] min Stress: No Stress Concern Present (10/25/2023) [employer] - Occupational Stress Questionnaire Feeling of Stress : Not at all Social Connections: Moderately Isolated (10/25/2023) Social Connection and Isolation Panel [NHANES] Frequency of Communication with Friends and Family: Three times a week Frequency of Social Gatherings with Friends and Family: Three times a week Attends Evangelical Services: Never Active Member of Clubs or [...] A1C 5 (more content not included)... Normal [facility] ECG 12-LEADon 10-26-2023 ECG 12-LEAD IMPRESSION: Sinus tachycardia Borderline low voltage, extremity leads Electronically Signed On 10-26-2023 07:44:56 EDT by Mary Gray [facility] No Panel InformationOrdered By: Mary Gray on 10-26-2023 P [place] 76 degrees [facility] Work Phone: NV Interval 115 ms [facility] Work Phone: QRS [place] 75 degrees [employer] Work Phone: QRSD Interval 75 ms [facility] Work Phone: QT Interval 0 ms [facility] [employer] Work Phone: QTC Interval 0 ms [facility] [employer] Work Phone: T Wave [place] 74 degrees [facility] [employer] Work Phone: [facility] [employer] Work Phone: No Panel Informationon 10-25 Sinus tachycardia Borderline low voltage, extremity leads Electronically Signed On 10-26-2023 07:44:56 EDT by Mary Gary CV Mary Valdivia MD - 10/26/2023 IMPRESSION: Sinus tachycardia Borderline low voltage, extremity leads Electronically Signed On 10-26-2023 07:44:56 EDT by Mary Gray [facility] Vital signsOrdered By: Irvin Gray on 10-26-2023 Heart rate 109 /min bpm [facility] [employer] Work Phone: BASIC METABOLIC PANELon 09-28 Anion gap [Moles/Vol] 17 mmol/L High 3-13 [facility] Comment on above: Performed By: #### L [id number], [id number] ####Masonry Contractor: PARTH TADEO ([id number])[facility] Calcium [Mass/Vol] 9.2 mg/dL Normal 8.4-10.4 [facility] Comment on above: Performed By: #### L [id number], LAB15 ####Masonry Contractor: PARTH TADEO ([id number])[facility] (SBHLAB)155 [place] [address] [place] Chloride [Moles/Vol] 101 mmol/L Normal 98-107 [facility] Comment on above: Performed By: #### L [id number], LAB15 ####Masonry Contractor: PARTH TADEO ([id number])[facility] (SBHLAB)155 [place] [address] [place] CO2 [Moles/Vol] 25 mmol/L Normal 22-30 [facility] Comment on above: Performed By: #### L [id number], LAB15 ####Masonry Contractor: PARTH TADEO ([id number])[facility]ITAL[facility] (SBHLAB)[address] Creatinine [Mass/Vol] 1.20 mg/dL Normal 0.66-1.25 [facility] Comment on above: Performed By: #### L [id number], LAB15 ####Masonry Contractor: PARTH TADEO ([id number])[facility]ITAL[facility] (SBHLAB)[address] GLOMERULAR FILTRATION RATE ML/MIN/1.73 SQ M.PREDICTED 79.4 mL/min/1.73m*2 Normal >60.0 [facility] Comment on above: Result Comment: Calc ulation based on the Chronic Kidney Disease Epidemiology Collaboration (CKD-EPI) equation refit without adjustment for race Performed By: #### L [id number], LAB15 ####Masonry Contractor: PARTH TADEO ([id number])[facility]ITAL[facility] [place]BGINNYN (SBHLAB)[address] Glucose [Mass/Vol] 138 mg/dL High 70-100 [facility] Comment on above: Performed By: #### L [id number], LAB15 ####Masonry Contractor: PARTH TADEO ([id number])[facility]ITAL[facility] [place] (SBHLAB)[address] Potassium [Moles/Vol] 3.4 mmol/L Low 3.5-5.1 [facility] Comment on above: Performed By: #### L [id number], LAB15 ####Masonry Contractor: PARTH TADEO ([id number])[facility] HOSPITALA [facility]RI[facility]ITALN (SBHLAB)[address] [place] [address] [place] Sodium [Moles/Vol] 143 mmol/L Normal 135-145 [facility] Comment on above: Performed By: #### L [id number], LAB15 ####Masonry Contractor: PARTH TADEO ([id number])[facility]ITALA EFR[place] (SBHLAB)[address] Urea nitrogen [Mass/Vol] 19 mg/dL Normal 9-20 [facility] Comment on above: Performed By: #### L [id number], LAB15 ####Masonry Contractor: PARTH TADEO ([id number])[facility]PITALPad[facility] [place] (SBHLAB)[address] BETA HYDROXYBUTYRATEon 10-24 BETA HYDROXYBUTYRATE 13.90 mg/dL High 0.20-2.81 [facility] Comment on above: Performed By: #### L [id number], LAB15 ####Masonry Contractor: PARTH TADEO ([id number])[facility]ITALPad[facility] [place] (SBHLAB)[address] Basic metabolic 1998 panelon 10-25-2023 Anion gap [Moles/Vol] 17 mmol/L High 3 - 13 mmol/L [facility] Calcium [Mass/Vol] 9.2 mg/dL 8.4 - 10. 4 mg/dL [facility] Chloride [Moles/Vol] 101 mmol/L 98 - 10 7 mmol/L [facility] CO2 [Moles/Vol] 25 mmol/L 22 - 30 mmol/L [facility] Creatinine [Mass/Vol] 1.20 mg/dL 0.66 - 1.25 mg/dL [facility] GFR/1.73 sq M.predicted MDRD (S/P/Bld) [Vol rate/Area] 79.4 mL/min/{1.73_m2} [facility] Comment on above: Calculation based on the Chronic Kidney Disease Epidemiology Collaboration (CKD-EPI) equation refit without adjustment for race Glucose [Mass/Vol] 138 mg/dL High 70 - 100 mg/dL [facility] Interpretation and review of laboratory results Abnormal [facility] Potassium [Moles/Vol] 3.4 mmol/L Low 3.5 - 5.1 mmol/L [facility] Sodium [Moles/Vol] 143 mmol/L 135 - 145 mmol/L [facility] Urea nitrogen [Mass/Vol] 19 mg/dL 9 - 20 mg/dL [facility] CBC (HEMOGRAM)on 05-28-2024 Erythrocyte distribution width (RBC) [Ratio] 11.8 % Normal 11.5-15.0 [facility] Comment on above: Performed By: #### L [id number] #### Masonry Contractor: PARTH TADEO ([id number]) [facility] (SBHLAB) [address] Hematocrit (Bld) [Volume fraction] 52.8 % High 40.0-52.0 [facility] Comment on above: Performed By: #### L [id number] #### Masonry Contractor: PARTH TADEO ([id number]) [facility] [address] Hemoglobin (Bld) [Mass/Vol] 19.5 g/dL High 13.0-18.0 [facility] Comment on above: Performed By: #### L [id number] #### Masonry Contractor: PARTH TADEO ([id number]) [facility] [address] MCH (RBC) [Entitic mass] 31.0 pg Normal 26.0-34.0 [facility] Comment on above: Performed By: #### L [id number] #### Masonry Contractor: PARTH TADEO ([id number]) [facility] [address] MCHC 36.9 % High 30.5-36.0 [facility] Comment on above: Performed By: #### L [id number] #### Masonry Contractor: PARTH TADEO ([id number]) [facility] (SBHLAB) [address] MCV (RBC) [Entitic vol] 83.8 fL Normal 77.0-99.0 S [facility] Comment on above: Performed By: #### L [id number] #### Masonry Contractor: PARTH TADEO ([id number]) [facility] [address] Platelet mean volume (Bld) [Entitic vol] 8.8 fL Low 9.0-12.7 [facility] Comment on above: Performed By: #### L [id number] #### Masonry Contractor: PARTH COMBSCER ([id number]) [facility] (SBHLAB) [address] Platelets (Bld) [#/Vol] 287 10*3/uL Normal 140-440 [facility] Comment on above: Performed By: #### L [id number] #### Masonry Contractor: PARTH TADEO ([id number]) [facility] (SBHLAB) [address] RBC (Bld) [#/Vol] 6.30 10*6/uL High 4.40-5.90 [facility] Comment on above: Performed By: #### L [id number] #### Masonry Contractor: PARTH TADEO ([id number]) [facility] (HLAB) [address] WBC (Bld) [#/Vol] 10.9 10*3/uL High 3.6-10.7 [facility] Comment on above: Performed By: #### L [id number] #### Masonry Contractor: PARTH ROWLEYGAVIN ([id number]) [facility] [address] CBC panel Auto (Bld)Ordered By: Olena [facility] on 10-25-2023 Erythrocyte distribution width (RBC) [Ratio] 11.8 % 11.5 - 15.0 % [facility] Hematocrit (Bld) [Volume fraction] 52.8 % High 40.0 - 52.0 % [facility] Hemoglobin (Bld) [Mass/Vol] 19.5 g/dL High 13.0 - 18.0 g/dL [facility] Interpretation and review of laboratory results Abnormal [facility] MCH (RBC) [Entitic mass] 31.0 pg 26. 0 - 34.0 pg [facility] MCHC (RBC) [Mass/Vol] 36.9 % High 30.5 - 36.0 % [facility] MCV (RBC) [Entitic vol] 83.8 fL 77.0 - 99.0 fL [facility] Platelet mean volume (Bld) [Entitic vol] 8.8 fL Low 9.0 - 12.7 fL [facility] Platelets (Bld) [#/Vol] 287 10*3/uL 140 - 440 10*3/uL [facility] RBC (Bld) [#/Vol] 6.30 10*6/uL High 4.40 - 5.9 0 10*6/uL [facility] WBC (Bld) [#/Vol] 10.9 10*3/uL High 3.6 - 10.7 10*3/uL [facility] COMPLETE URINALYSISon 2023 BACTERIA (#/HPF) IN URINE Few Abnormal Negative [facility] Comment on above: Performed By: #### L [id number] ####Masonry Contractor: PARTH TADEO ([id number])[facility])[address] [place] [address] BILIRUBIN, TOTAL PRESENCE IN URINE Negative Normal Negative [facility] Comment on above: Performed By: #### L [id number] ####Masonry Contractor: PARTH TADEO ([id number])[facility])[address] [place] [address] Clarity (U) Clear Normal Clear [facility] Comment on above: Performed By: #### L [id number] ####Masonry Contractor: PARTH TADEO ([id number])[facility])[address] [place] [address] Color (U) Yellow Normal Lt. Yellow [facility] Comment on above: Performed By: #### L [id number] ####Masonry Contractor: PARTH TADEO ([id number])[facility] [place] [address] GLUCOSE (MG/DL) IN URINE Normal Normal Nor mal (<70) [facility] Comment on above: Performed By: #### L [id number] ####Masonry Contractor: PARTH TADEO ([id number])[facility]ITALA [facility]BCARRIE TINGLEY [facility]PITALN (SBHLAB)[address] HEMOGLOBIN PRESENCE IN URINE Negative Normal Negative [facility] Comment on above: Performed By: #### L [id number] ####Masonry Contractor: PARTH TADEO ([id number])[facility] (SBHLAB)[address] Ketones Ql (U) 100 mg/dL Abnormal Negative [facility] Comment on above: Performed By: #### L [id number] ####Masonry Contractor: PARTH TADEO ([id number])[facility] (SBHLAB)[address] LEUKOCYTE ESTERASE PRESENCE IN URINE BY TEST STRIP Negative Normal Negative [facility] Comment on above: Performed By: #### L [id number] ####Masonry Contractor: PARTH CARLYLE ([id number])[facility] (SBHLAB)[address] [place] [address] [place] MUCUS (#/LPF) IN URINE SEDIMENT Moderate Abnormal Negative [facility] Comment on above: Performed By: #### L [id number] ####Masonry Contractor: PARTH TADEO ([id number])[facility] (SBHLAB)[address] NITRITE PRESENCE IN URINE Negative Normal Negative [facility] Comment on above: Performed By: #### L [id number] ####Masonry Contractor: PARTH TADEO ([id number])[facility] (SBHLAB)[address] NON-SQUAMOUS EPITHELIAL (#/HPF) IN URINE 0-2 Abnormal Negative [facility] Comment on above: Performed By: #### L [id number] ####Masonry Contractor: PARTH BARROWJUAN MANUEL ([id number])[facility] (SBHLAB)[address] pH (U) 6.5 [pH] Normal 5.0-8.0 [facility] Comment on above: Performed By: #### L [id number] ####Masonry Contractor: PARTH TADEO ([id number])[facility] [place] (SBHLAB)[address] Protein (U) [Mass/Vol] 50 mg/dL Abnormal Negative [facility] Comment on above: Performed By: #### L [id number] ####Masonry Contractor: PARTH TADEO ([id number])[facility]A [facility]BC[facility]RI[facility]OSPITALN (SBHLAB)[address] [place] [address] [place] RBC (#/HPF) IN URINE SEDIMENT 0-2 Normal 0-2 [facility] Comment on above: Performed By: #### L [id number] ####Masonry Contractor: PARTH TADEO ([id number])[facility]ITALA [facility] (SBHLAB)[address] [place] [address] Specific gravity (U) [Rel density] >1.030 High 1.005-1.030 [facility] Comment on above: Performed By: #### L [id number] ####Masonry Contractor: PARTH TADEO ([id number])[facility] (SBHLAB)[address] SQUAMOUS EPITHELIAL CELLS (#/HPF) IN URINE SEDIMENT 0-2 Normal 3-5 [facility] Comment on above: Performed By: #### L [id number] ####Masonry Contractor: PARTH TADEO ([id number])[facility]N (SBHLAB)[address] [place] [address] [place] UROBILINOGEN (MG/DL) IN URINE Normal Normal Normal (0-1) [facility] Comment on above: Performed By: #### L [id number] ####Masonry Contractor: PARTH TADEO ([id number])[facility] (SBHLAB)[address] WBC (LEUKOCYTE) (#/HPF) IN URINE SEDIMENT 0-2 Normal 0-5 [facility] Comment on above: Performed By: #### L [id number] ####Masonry Contractor: PARTH TADEO ([id number])[facility] [place] (SBHLAB)[address] COMPREHENSIVE METABOLIC PANE Heriberto 10-25-2023 Albumin [Mass/Vol] 5.3 g/dL High 3.5-5.0 [facility] Comment on above: Performed By: #### L AB17, LAB99 ####Masonry Contractor: PARTH TADEO ([id number])[facility] [place] (SBHLAB)[address] ALP [Catalytic activity/Vol] 117 U/L Normal 38-126 [facility] Comment on above: Performed By: #### L AB17, LAB99 ####Masonry Contractor: PARTH TADEO ([id number])[facility] [place] (SBHLAB)[address] ALT [Catalytic activity/Vol] 52 U/L High 0-49 [facility] Comment on above: Performed By: #### L AB17, LAB99 ####Masonry Contractor: PARTH TADEO ([id number])[facility] [place] (SBHLAB)[address] Anion gap [Moles/Vol] 23 mmol/L High 3-13 [facility] Comment on above: Performed By: #### L AB17, LAB99 ####Masonry Contractor: PARTH TADEO ([id number])[facility] [place] (SBHLAB)[address] [place] [address] [place] AST [Catalytic activity/Vol] 31 U/L Normal 15-46 [facility] Comment on above: Performed By: #### L AB17, LAB99 ####Masonry Contractor: PARTH TADEO ([id number])[facility] [place] (SBHLAB)[address] [place] [address] [place] Bilirubin [Mass/Vol] 1.1 mg/dL Normal 0.2-1.3 [facility] Comment on above: Performed By: #### L AB17, LAB99 ####Masonry Contractor: PARTH TADEO ([id number])[facility]ITALPadmini [place] (SBHLAB)[address] Calcium [Mass/Vol] 11.0 mg/dL High 8.4-10.4 [facility] Comment on above: Performed By: #### L AB17, LAB99 ####Masonry Contractor: PARTH TADEO ([id number])[facility] HOSPITALPadmini [facility]N (SBHLAB)[address] [place] [address] [place] Chloride [Moles/Vol] 99 mmol/L Normal 98-107 [facility] Comment on above: Performed By: #### L AB17, LAB99 ####Masonry Contractor: PARTH TADEO ([id number])[facility]PITALPadmini [facility]N (SBHLAB)[address] CO2 [Moles/Vol] 22 mmol/L Normal 22-30 [facility] Comment on above: Performed By: #### L AB17, LAB99 ####Masonry Contractor: PARTH TADEO ([id number])[facility]PITALPadmini [facility] (SBHLAB)[address] Creatinine [Mass/Vol] 1.07 mg/dL Normal 0.66-1.25 [facility] Comment on above: Performed By: #### L AB17, LAB99 ####Masonry Contractor: PARTH TADEO ([id number])[facility] (SBHLAB)[address] GLOMERULAR FILTRATION RATE ML/MIN/1.73 SQ M.PREDICTED >90.0 Normal >60.0 [facility] Comment on above: Result Comment: Calc ulation based on the Chronic Kidney Disease Epidemiology Collaboration (CKD-EPI) equation refit without adjustment for race Performed By: #### L AB17, LAB99 ####Masonry Contractor: PARTH TADEO ([id number])[facility]OSPITALPadmini [facility]N (SBHLAB)[address] Glucose [Mass/Vol] 176 mg/dL High 70-100 [facility] Comment on above: Performed By: #### L AB17, LAB99 ####Masonry Contractor: PARTH CARLYLE ([id number])[facility] [place] (SBHLAB)[address] Potassium [Moles/Vol] 3.4 mmol/L Low 3.5-5.1 [facility] Comment on above: Performed By: #### L AB17, LAB99 ####Masonry Contractor: PARTH BARROWJUAN MANUEL ([id number])[facility] [place] (SBHLAB)[address] Protein [Mass/Vol] 9.5 g/dL High 6.3-8.2 [facility] Comment on above: Performed By: #### L AB17, LAB99 ####Masonry Contractor: PARTH BARROWJUAN MANUEL ([id number])[facility] [place] (SBHLAB)[address] Sodium [Moles/Vol] 143 mmol/L Normal 135-145 [facility] Comment on above: Performed By: #### L AB17, LAB99 ####Masonry Contractor: PARTH CARLYLE ([id number])[facility] [place] (SBHLAB)[address] Urea nitrogen [Mass/Vol] 19 mg/dL Normal 9-20 [facility] Comment on above: Performed By: #### L AB17, LAB99 ####Masonry Contractor: PARTH BARROWJUAN MANUEL ([id number])[facility] [place] (SBHLAB)[address] [place] [address] CT ABDOMEN PELVIS W CONTRAST on 10-25-2023 [...] have been ongoing for 2 days. Normal [facility] CT Abdomen and Pelvis W cont rast Tyrell 10-25-2023 No acute process. Report Dictated on Electronically Signed By: Alonzo Kimbrough MD Electronically Signed Date/Time: 10/25/2023 11:27 AM T [facility] Patient Name: MAYITO FORBES : [...] fracture or destructive osseous lesion is identified. [facility] Alonzo Kimbrough MD - 10/25/2023 [...] Electronically Signed Date/Time: 10/25/2023 11:27 AM EDT [facility] [employer] Radiology Study observation (narrative) Jovana alth CT Abdomen and Pelvis W cont rast IVOrdered By: Alonzo Kimbrough on 10-25-2023 [employer] Work Phone: Comprehensive metabolic 1998 panelon 10-25-2023 Albumin [Mass/Vol] 5.3 g/dL High 3.5 - 5.0 g/dL [facility] [employer] ALP [Catalytic activity/Vol] 117 U/L 38 - 126 U/L [facility] ALT [Catalytic activity/Vol] 52 U/L High 0 - 49 U/L [facility] Anion gap [Moles/Vol] 23 mmol/L High 3 - 13 mmol/L [facility] AST [Catalytic activity/Vol] 31 U/L 15 - 46 U/L [facility] Bilirubin [Mass/Vol] 1.1 mg/dL 0.2 - 1 .3 mg/dL [facility] Calcium [Mass/Vol] 11.0 mg/dL High 8.4 - 10. 4 mg/dL [facility] Chloride [Moles/Vol] 99 mmol/L 98 - 10 7 mmol/L [facility] CO2 [Moles/Vol] 22 mmol/L 22 - 30 mmol/L [facility] Creatinine [Mass/Vol] 1.07 mg/dL 0.66 - 1.25 mg/dL [facility] GFR/1.73 sq M.predicted MDRD (S/P/Bld) [Vol rate/Area] - PINF [facility] Comment on above: Calculation based on the Chronic Kidney Disease Epidemiology Collaboration (CKD-EPI) equation refit without adjustment for race Glucose [Mass/Vol] 176 mg/dL High 70 - 100 mg/dL [facility] Potassium [Moles/Vol] 3.4 mmol/L Low 3.5 - 5.1 mmol/L [facility] Protein [Mass/Vol] 9.5 g/dL High 6.3 - 8.2 g/dL [facility] Sodium [Moles/Vol] 143 mmol/L 135 - 145 mmol/L [facility] Urea nitrogen [Mass/Vol] 19 mg/dL 9 - 20 mg/dL [facility] DRUGS OF ABUSEon 10-25-2023 AMPHETAMINE SCREEN Negative Normal [facility] Comment on above: Performed By: #### L AB20, LAB15, LAB46 #### Masonry Contractor: LILIA KNOX ([id number]) [facility] HOSPITAL) [address] [place] [address] BARBITURATES SCREEN Negative Normal [facility]S Comment on above: Performed By: #### L AB20, LAB15, LAB46 #### Masonry Contractor: LILIA KNOX ([phone]) [facility] ([facility]) [address] [place] [address] BENZODIAZEPINE SCREEN Negative Normal [facility] Comment on above: Performed By: #### L AB20, LAB15, LAB46 #### Masonry Contractor: LILIA KNOX ([phone]) [facility] ([facility]) [address] [place] [address] COCAINE METAB. SCREEN Negative Normal [facility] Comment on above: Performed By: #### L AB20, LAB15, LAB46 #### Masonry Contractor: LILIA KNOX ([id number]) [facility] [address] [place] [address] METHADONE SCREEN Negative Normal [facility] Comment on above: Performed By: #### L AB20, LAB15, LAB46 #### Masonry Contractor: LILIA KNOX ([id number]) [facility] ([facility]) [address] [place] [address] OPIATES SCREEN Negative Normal [facility] Comment on above: Performed By: #### L AB20, LAB15, LAB46 #### Masonry Contractor: LILIA KNOX ([phone]) [facility] [address] [place] [address] OXYCODONE SCREEN Negative Normal [facility] Comment on above: Performed By: #### L AB20, LAB15, LAB46 #### Masonry Contractor: LILIA KNOX ([phone]) [facility] ([facility]) [address] [place] [address] PHENCYCLIDINE SCREEN Negative Normal [facility] Comment on above: Result [...] By: #### L AB20, LAB15, LAB46 #### Masonry Contractor: LILIA KNOX ([id number]) [facility] ([address] ED Provider Noteon ED Provider Note [...] Response: Oriented Best Motor Response: Follows commands [place] Coma Scale Score: 15 PHYSICAL EXAM ED [...] DIAGNOSTIC R (more content not included)... Normal [facility] ED Provider Note Emergency Department Encounter [facility] ED Patient: Mayito Forbes : 1985 Date [...] Solutions James Neil MD 10/26/23 1502 Normal [facility] FENTANYL, URINEon 10-25-2023 FENTANYL SCREEN, URINE Positive Normal Negative [facility] Comment on above: Result Comment: EZ R COMMENTS: Fentanyl has been screened for by Immunoassay at a 1 ng/ml threshold. POSITIVE results are not confirmed by a more specific alternative method unless requested. If confirmation is needed, request confirmation under separate order. NOTE: These results are for medical treatment only. Analysis performed using non-forensic procedures. Performed By: #### L [id number] ####Masonry Contractor: LILIA KNOX ([phone])[facility] ([facility])[address] [place] [address] HEMOGLOBIN A1Con 10-25-2023 Glucose [Mass/Vol] 111 mg/dL Normal [facility] Comment on above: Performed By: #### L [id number] #### Masonry Contractor: PARTH TADEO ([id number]) [facility] [address] [place] [address] HbA1c (Bld) [Mass fraction] 5.5 % Normal <5.7 [facility] Comment on above: Result Comment: Norm al less than 5.7% Prediabetes 5.7% to 6.4% Diabetes 6.5% or higher --HgbA1C levels may not be accurate in patients who have renal disease, received recent blood transfusions, are anemic, or who have dyshemoglobinemia. Performed By: #### L [id number] #### Masonry Contractor: PARTH TADEO ([id number]) [facility] [address] [place] [address] LACTIC ACID WITH REFLEXon Lactate [Moles/Vol] 2.0 mmol/L Normal 0.7-2.0 [facility] Comment on above: Performed By: #### L [id number] ####Masonry Contractor: PARTH TADEO ([id number])[facility] Lactate [Moles/Vol] 2.6 mmol/L High 0.7-2.0 [facility] Comment on above: Performed By: #### L [id number] ####Masonry Contractor: PARTH TADEO ([id number])[facility] [place] [address] [place] LIPASEon 10-25-2023 Lipase [Catalytic activity/Vol] 43 U/L Normal 23-300 [facility] Comment on above: Performed By: #### L AB17, LAB99 ####Masonry Contractor: PARTH TADEO ([id number])[facility] ([facility])[address] Laboratory - Chemistry and C hemistry - challengeon 10-25-2023 Average glucose Estimated from glycated hemoglobin (Bld) [Mass/Vol] 111 mg/dL [facility] Beta hydroxybutyrate [Mass/Vol] 13.90 mg/dL High 0.20 - 2.81 mg/dL [facility] Lactate [Moles/Vol] 2.0 mmol/L 0.7 - 2. 0 mmol/L [facility] Lactate [Moles/Vol] 2.6 mmol/L High 0.7 - 2. 0 mmol/L [facility] Lipase [Catalytic activity/Vol] 43 U/L 23 - 300 U/L [facility] Laboratory - Drug toxicology Ordered By: Elyssa Salgado on 10-25-2023 Amphetamines Screen method >1000 ng/mL Ql (U) Negative [facility] Barbiturates Screen method >200 ng/mL Ql (U) Negative [facility] Benzodiazepines Ql (U) Negative Yo [facility] Methadone Screen Ql (U) Negative [facility] Opiates Screen Ql (U) Negative [facility] oxyCODONE Ql (U) Negative [facility] Phencyclidine Ql (U) Negative [facility] Laboratory - Drug toxicology on 10-25-2023 Cannabinoids Screen (U) [Mass/Vol] Positive [facility] Comment on above: THC metabolites have been [...] fraction] 5.5 % NINF - 5.7 % [facility] Comment on above: Normal less than 5.7 % Prediabetes 5.7% to 6.4% Diabetes 6.5% or higher --HgbA1C levels may not be accurate in patients who have renal disease, received recent blood transfusions, are anemic, or who have dyshemoglobinemia. Lipase [Catalytic activity/V ol]on 10-25-2023 Interpretation and review of laboratory results Normal [facility] No Panel InformationOrdered By: Elyssa Cope on 10-25-2023 FENTANYL SCREEN, URINE Positive Negative [facility] Fentanyl has been screened for by Immunoassay at a 1 ng/ml threshold. POSITIVE results are not confirmed by a more specific alternative method unless requested. If confirmation is needed, request confirmation under separate order. NOTE: These results are for medical treatment only. Analysis performed using non-forensic procedures. [facility] No Panel InformationOrdered By: Elyssa Salgado on 10-25-2023 COCAINE METAB. SCREEN Negative [facility] The expected value f or all [...] is needed, request confirmation under separate order. [facility] No Panel Informationon 10-24 [facility] Interpretation and review of laboratory results Abnormal [facility] Interpretation and review of laboratory results Normal [facility] Interpretation and review of laboratory results Abnormal [facility] THC SCREEN STAT LABon 2023 THC, URINE Positive Normal [facility]S Comment on above: Result Comment: [...] By: #### L AB20, LAB15, LAB46 #### Masonry Contractor: LILIA KNOX ([id number]) [facility] ([facility]) [address] Urinalysis complete panel (U )Ordered By: Danielle Lott on 10-25-2023 Bacteria LM.HPF (Urine sed) [#/Area] Few Abnormal Negative /HPF [facility] Bilirubin Ql (U) Negative Negative mg/dL [facility] Clarity (U) Clear Clear [facility] Color (U) Yellow Lt. Yellow [facility] Epithelial cells.squamous LM.HPF (Urine sed) [#/Area] 0-2 [facility] Glucose Ql (U) Normal Normal (<70) mg/dL [facility] Hemoglobin Ql (U) Negative Negative mg/dL [facility] Interpretation and review of laboratory results Abnormal [facility] Ketones (U) [Mass/Vol] 100 mg/dL Abnormal Negative Yo [facility] Leukocyte esterase Test strip Ql (U) Negative Negative Raina/uL [facility] Mucus LM.HPF (Urine sed) [#/Area] Moderate Abnormal Negative /LPF [facility] Nitrite Ql (U) Negative Negative [facility] Non-Squamous Epithalial Cells, Urine 0-2 Abnormal Negative /HPF [facility] pH (U) 6.5 [pH] 5.0 - 8.0 pH [facility] Protein (U) [Mass/Vol] 50 mg/dL Abnormal Negative [facility] RBC LM.HPF (Urine sed) [#/Area] 0-2 [facility] Specific gravity (U) [Rel density] High 1.005 - 1.030 [facility] Urobilinogen (U) [Mass/Vol] Normal Normal (0-1) mg/dL [facility] WBC LM.HPF (Urine sed) [#/Area] 0-2 [facility] CNDSon 09-27-2023 [facility] HNO ID: [id number] Author: ANDI DAVIDSON MD Service: Hospital Medicine [...] schedule with a primary care physician at [phone] [facility] [address] [place] [address]. [address] [place] [address] -We encourage daily physical activity 3-4 days [...] patent b (more content not included)... Normal [facility] HISTORY PHYSICALon HISTORY PHYSICAL HNO ID: [id number] Author: TATY DELGADO APRN.CNP Service: Hospital Medicine Author Type: Nurse Practitioner Type: H&P Filed: 09/27/2023 02:05 Note Text: RAPID OBSERVATION UNIT HISTORY AND PHYSICAL EXAM SERVICE DATE: September 27, 2023 SERVICE TIME: 1:50 AM Primary Care Physician: No primary care provider on file. NIGHT AND WEEKEND COVERAGE: Patient admitted to [facility] ROU service. Page ROU pager [phone] for any patient concerns/issues. Subjective CHIEF COMPLAINT: [...] and Non-Pharmac (more content not included)... Normal [facility] TOXICOLOGY SCREEN, ROUTINE U RINEon 09-27-2023 Amphetamines Confirm (U) [Mass/Vol] Negative Normal Negative [facility] Comment on above: Order Comment: Speci men Type: URINE SPECIMENOrdering Facility: [facility] Address: [address] [place] [address] Result Comment: Cuto ff threshold at 1000 ng/mL. Performed By: #### U TOX2 ####[facility]ORY[facility]IA [id number] [place] [address] [place] BARBITURATES, URINE Negative Normal Negative [facility] Comment on above: Order Comment: Speci men Type: URINE SPECIMENOrdering Facility: [facility] Address: [address] [place] [address] Result Comment: Cuto ff threshold at 200 ng/mL. Performed By: #### U TOX2 ####[facility]ORYCLIA [id number] [place] [address] [place] BENZODIAZEPINES, UR Negative Normal Negative [facility] Comment on above: Order Comment: Speci men Type: URINE SPECIMENOrdering Facility: [facility] Address: [address] [place] [address] Result Comment: Cuto ff threshold at 200 ng/mL. Performed By: #### U TOX2 ####[facility] [id number] [address] Cannabinoids Screen Ql (U) Positive Abnormal Negative [facility] Comment on above: Order Comment: Speci men Type: URINE SPECIMENOrdering Facility: [facility] Address: [address] [place] [address] Result Comment: Cuto ff threshold at 50 ng/mL. Performed By: #### U TOX2 ####[facility]ORY[facility] [id number] [address] Cocaine Ql (U) Negative Normal Negative [facility] Comment on above: Order Comment: Speci men Type: URINE SPECIMENOrdering Facility: [facility] Address: [address] [place] [address] Result Comment: Cuto ff threshold at 300 ng/mL. Performed By: #### U TOX2 ####[facility]ORYCLIA [id number] [address] [place] Ethanol (U) [Mass/Vol] <11 Normal <11 [facility] Comment on above: Order Comment: Speci men Type: URINE SPECIMENOrdering Facility: [facility] Address: [address] [place] [address] Performed By: #### U TOX2 ####[facility]ORYCLIA [id number] [address] OF [facility] Opiates Screen Ql (U) Negative Normal Negative [facility] Comment on above: Order Comment: Speci men Type: URINE SPECIMENOrdering Facility: [facility] Address: [address] [place] [address] Result Comment: Cuto ff threshold at 300 ng/mL. Performed By: #### U TOX2 ####[facility]ORYCL[facility] [id number] [address] [place] oxyCODONE cutoff Screen (U) [Mass/Vol] Negative Normal Negative [facility] Comment on above: Order Comment: Speci men Type: URINE SPECIMENOrdering Facility: [facility] Address: [address] [place] [address] Result Comment: Cuto ff threshold at 100 ng/mL. Performed By: #### U TOX2 ####[facility]ORYCLIA [id number] [address] Phencyclidine Ql (U) Negative Normal Negative [facility] Comment on above: Order Comment: Speci men Type: URINE SPECIMENOrdering Facility: [facility] Address: [address] [place] [address] Result Comment: Cuto ff threshold at 25 ng/mL. Performed By: #### U TOX2 ####[facility]ORATORYCLIA [id number] [address] [place] AMB POC GLUCOSE TESTOrdered By: Nitza Cornejo on 09-26-2023 Glucose [Mass/Vol] 133 mg/dL Abnormal 70 - 100 mg/dL [facility] Interpretation and review of laboratory results Abnormal [facility] Radiology Study observation (narrative) [facility] CBC W Auto Differential pane l (Bld)on 09-26-2023 Basophils (Bld) [#/Vol] 10*3/uL Normal <0.11 [facility] Comment on above: Order Comment: Speci men Type: BLOOD SPECIMEN Ordering Facility: [facility] Address: [address] [place] [address] Performed By: #### 5 7021-8 #### [facility] CLIA [id number] [address] [place], [place] [id number] [place] Basophils/100 WBC (Bld) 0.1 % Normal A [facility] Comment on above: Order Comment: Speci men Type: BLOOD SPECIMEN Ordering Facility: [facility] Address: [address] [place] [address] Performed By: #### 5 7021-8 #### [facility] N(i)² LAB CLIA [id number] [address] [place], [place] [id number] [place] [facility] Differential cell count method Nom (Bld) Auto Normal [facility] Comment on above: Order Comment: Speci men Type: BLOOD SPECIMEN Ordering Facility: [facility] Address: [address] [place] [address] Performed By: #### 5 7021-8 #### [facility] CLIA [id number] [address] [place] [address] [place] Eosinophils (Bld) [#/Vol] 10*3/uL Normal <0.46 [facility] Comment on above: Order Comment: Speci men Type: BLOOD SPECIMEN Ordering Facility: [facility] Address: [address] [place] [address] Performed By: #### 5 7021-8 #### [facility] CLIA [id number] [address] [place], [place] [id number] [facility] [place] Eosinophils/100 WBC (Bld) 0.0 % Normal [facility] Comment on above: Order Comment: Speci men Type: BLOOD SPECIMEN Ordering Facility: [facility] Address: [address] [place] [address] Performed By: #### 5 7021-8 #### [facility] CLIA [id number] [address] [place] [address] [place] Erythrocyte distribution width (RBC) [Ratio] 11.7 % Normal 11.5-15.0 [facility] Comment on above: Order Comment: Speci men Type: BLOOD SPECIMEN Ordering Facility: [facility] Address: [address] [place] [address] Performed By: #### 5 7021-8 #### [facility] CLIA [id number] [address] [place] [address] [place] Hematocrit (Bld) [Volume fraction] 50.1 % Normal 39.0-51.0 [facility] Comment on above: Order Comment: Speci men Type: BLOOD SPECIMEN Ordering Facility: [facility] Address: [address] [place] [address] Performed By: #### 5 7021-8 #### [facility] CLIA [id number] [address] [place] [address] [place] Hemoglobin (Bld) [Mass/Vol] 18.0 g/dL High 13.0-17.0 [facility] Comment on above: Order Comment: Speci men Type: BLOOD SPECIMEN Ordering Facility: [facility] Address: [address] [place] [address] Performed By: #### 5 7021-8 #### [facility] CLIA [id number] [address] [place] [address] [place] Immature granulocytes (Bld) [#/Vol] 10*3/uL Normal <0.10 [facility] Comment on above: Order Comment: Speci men Type: BLOOD SPECIMEN Ordering Facility: [facility] Address: [address] [place] [address] Performed By: #### 5 7021-8 #### [facility] CLIA [id number] [address] [place], [place] [id number] [place] Immature granulocytes/100 WBC (Bld) 0.1 % Normal [facility] Comment on above: Order Comment: Speci men Type: BLOOD SPECIMEN Ordering Facility: [facility] Address: [address] [place] [address] Performed By: #### 5 7021-8 #### [facility] CLIA [id number] [address] [place], [place] [id number] [place] Lymphocytes (Bld) [#/Vol] 0.78 10*3/uL Low 1.00-4.00 [facility] Comment on above: Order Comment: Speci men Type: BLOOD SPECIMEN Ordering Facility: [facility] Address: [address] [place] [address] Performed By: #### 5 7021-8 #### [facility] CLIA [id number] [address] [place], [place] [address] [place] Lymphocytes/100 WBC (Bld) 7.4 % Normal [facility] Comment on above: Order Comment: Speci men Type: BLOOD SPECIMEN Ordering Facility: [facility] Address: [address] [place] [address] Performed By: #### 5 7021-8 #### [facility] CLIA [id number] [address] [place] [address] [place] MCH (RBC) [Entitic mass] 31.5 pg Normal 26.0-34.0 [facility] Comment on above: Order Comment: Speci men Type: BLOOD SPECIMEN Ordering Facility: [facility] Address: [address] [place] [address] Performed By: #### 5 7021-8 #### [facility] CLIA [id number] [address] [place] [address] [place] MCHC (RBC) [Mass/Vol] 35.9 g/dL Normal 30.5-36.0 [facility] Comment on above: Order Comment: Speci men Type: BLOOD SPECIMEN Ordering Facility: [facility] Address: [address] [place] [address] Performed By: #### 5 7021-8 #### [facility] CLIA [id number] [address] [place] [address] [place] MCV (RBC) [Entitic vol] 87.6 fL Normal 80.0-100.0 A [facility] Comment on above: Order Comment: Speci men Type: BLOOD SPECIMEN Ordering Facility: [facility] Address: [address] [place] [address] Performed By: #### 5 7021-8 #### [facility] CLIA [id number] [address] [place] [address] [place] Monocytes (Bld) [#/Vol] 0.74 10*3/uL Normal <0.87 [facility] Comment on above: Order Comment: Speci men Type: BLOOD SPECIMEN Ordering Facility: [facility] Address: [address] [place] [address] Performed By: #### 5 7021-8 #### [facility] CLIA [id number] [address] [place] [address] Monocytes/100 WBC (Bld) 7.0 % Normal A [facility] Comment on above: Order Comment: Speci men Type: BLOOD SPECIMEN Ordering Facility: [facility] Address: [address] [place] [address], [place] [address] Performed By: #### 5 7021-8 #### [facility] CLIA [id number] [address] [place] [address] [place] Neutrophils (Bld) [#/Vol] 9.00 10*3/uL High 1.45-7.50 [facility] Comment on above: Order Comment: Speci men Type: BLOOD SPECIMEN Ordering Facility: [facility] Address: [address] [place] [address] Performed By: #### 5 7021-8 #### [facility] CLIA [id number] [address] [place] [address] [place] Neutrophils/100 WBC (Bld) 85.4 % Normal [facility] Comment on above: Order Comment: Speci men Type: BLOOD SPECIMEN Ordering Facility: [facility] Address: [address] [place] [address] Performed By: #### 5 7021-8 #### [facility] CLIA [id number] [address] [place] [address] [place] Nucleated RBC (Bld) [#/Vol] Normal [facility] Comment on above: Order Comment: Speci men Type: BLOOD SPECIMEN Ordering Facility: [facility] Address: [address] [place] [address] Performed By: #### 5 7021-8 #### [facility] CLIA [id number] [address] [place] [address] [place] Nucleated RBC/100 WBC (Bld) [Ratio] Normal [facility] Comment on above: Order Comment: Speci men Type: BLOOD SPECIMEN Ordering Facility: [facility] Address: [address] [place] [id number] Performed By: #### 5 7021-8 #### [facility] CLIA [id number] [address] [place] [address] [place] Platelet mean volume (Bld) [Entitic vol] 8.6 fL Low 9.0-12.7 [facility] Comment on above: Order Comment: Speci men Type: BLOOD SPECIMEN Ordering Facility: [facility] Address: [address] [place] [id number] Performed By: #### 5 7021-8 #### [facility] CLIA [id number] [address] [place] [address] [facility] Platelets (Bld) [#/Vol] 355 10*3/uL Normal 150-400 [facility] Comment on above: Order Comment: Speci men Type: BLOOD SPECIMEN Ordering Facility: [facility] Address: [address] [place] [address] Performed By: #### 5 7021-8 #### [facility] CLIA [id number] [address] [place] [address] [facility] RBC (Bld) [#/Vol] 5.72 10*6/uL Normal 4.20-6.00 [facility] Comment on above: Order Comment: Speci men Type: BLOOD SPECIMEN Ordering Facility: [facility] Address: [address] [place] [address] Performed By: #### 5 7021-8 #### [facility] CLIA [id number] [address] [place] [address] [facility] WBC (Bld) [#/Vol] 10.54 10*3/uL Normal 3.70-11.00 [facility] Comment on above: Order Comment: Speci men Type: BLOOD SPECIMEN Ordering Facility: [facility] Address: [address] [place] [address] Performed By: #### 5 7021-8 #### [facility] CLIA [id number] [address] [place] [address] [facility] Comprehensive metabolic 2000 panelon 09-26-2023 Albumin [Mass/Vol] 4.8 g/dL Normal 3.9-4.9 [facility] Comment on above: Order Comment: Speci men Type: BLOOD SPECIMENOrdering Facility: [facility] Address: [address] [place] [address] Performed By: #### 2 4323-8, 3040-3 ####[facility] [id number] [place] [address] [place] ALP [Catalytic activity/Vol] 82 U/L Normal 38-113 [facility] Comment on above: Order Comment: Speci men Type: BLOOD SPECIMENOrdering Facility: [facility] Address: [address] [id number] Performed By: #### 2 4323-8, 3040-3 ####[facility] [id number] [place] [address] [place] ALT [Catalytic activity/Vol] 25 U/L Normal 10-54 [facility] Comment on above: Order Comment: Speci men Type: BLOOD SPECIMENOrdering Facility: [facility] Address: [address] [place] [address] Performed By: #### 2 4323-8, 3040-3 ####[facility] [id number] [place] [address] [place] [facility] Anion gap [Moles/Vol] 13 mmol/L Normal 9-18 [facility] Comment on above: Order Comment: Speci men Type: BLOOD SPECIMENOrdering Facility: [facility] Address: [address] [place] [address] Performed By: #### 2 4323-8, 3040-3 ####[facility] [id number] [place] [address] [place] AST [Catalytic activity/Vol] 17 U/L Normal 14-40 [facility] Comment on above: Order Comment: Speci men Type: BLOOD SPECIMENOrdering Facility: [facility] Address: [address] [id number] Performed By: #### 2 4323-8, 3040-3 ####[facility] [id number] [place] [address] [place] Bilirubin [Mass/Vol] 0.6 mg/dL Normal 0.2-1.3 [facility] Comment on above: Order Comment: Speci men Type: BLOOD SPECIMENOrdering Facility: [facility] Address: [address] [place] [address] Result Comment: Use of this assay is not recommended for patients undergoing treatment with eltrombopag due to the potential for falsely elevated results. Performed By: #### 2 4323-8, 3040-3 ####[facility] [id number] [place] [address] [place] Calcium [Mass/Vol] 9.9 mg/dL Normal 8.5-10.2 [facility] Comment on above: Order Comment: Speci men Type: BLOOD SPECIMENOrdering Facility: [facility] Address: [address] [place] [address] Performed By: #### 2 4323-8, 3039-3 ####[facility] LABCLIA [id number] [place] [address] [place] Chloride [Moles/Vol] 103 mmol/L Normal 97-105 [facility] Comment on above: Order Comment: Speci men Type: BLOOD SPECIMENOrdering Facility: [facility] Address: [address] [place] [address] Performed By: #### 2 4323-8, 3039-3 ####[facility] [id number] [place] [address] [place] CO2 [Moles/Vol] 24 mmol/L Normal 22-30 [facility] Comment on above: Order Comment: Speci men Type: BLOOD SPECIMENOrdering Facility: [facility] Address: [address] [place] [address] Performed By: #### 2 4323-8, 0-3 ####[facility] [id number] [place] [address] [place] Creatinine [Mass/Vol] 1.07 mg/dL Normal 0.73-1.22 [facility] Comment on above: Order Comment: Speci men Type: BLOOD SPECIMENOrdering Facility: [facility] Address: [address] [place] [address] Result Comment: Use of this assay is not recommended for patients undergoing treatment with phenindione, due to the potential for falsely depressed results. Performed By: #### 2 4323-8, 3039-3 ####[facility] LABCLIA [id number] [place] [id number] [place] Creatinine and Glomerular filtration rate.predicted panel (S/P/Bld) 91 mL/min/1.73m??? Normal >=60 [facility] Comment on above: Order Comment: Nicolás dickson Type: BLOOD SPECIMENOrdering Facility: [facility] Address: [address] [place] [address] Result Comment: Jaymie mated Glomerular Filtration Rate [...] GFR. Performed By: #### 2 4323-8, 3 ####[facility] LABCLIA [id number] [place] [id number] [place] Glucose [Mass/Vol] 119 mg/dL High 74-99 [facility] Comment on above: Order Comment: Nicolás dickson Type: BLOOD SPECIMENOrdering Facility: [facility] Address: [address] [place] [address] Result Comment: The [place] Diabetes Association (ADA) provides guidance for cutoff [...] Standards of Medical Care in Diabetes 2016, [place] Diabetes Association. Diabetes Care. 2016.39(Suppl 1). Performed By: #### 2 4323-8, 3039-3 ####[facility] N(i)² LABCLIA [id number] [place] [address] [place] Potassium [Moles/Vol] 3.4 mmol/L Low 3.7-5.1 [facility] Comment on above: Order Comment: Speci men Type: BLOOD SPECIMENOrdering Facility: [facility] Address: [address] [place] [address] Performed By: #### 2 4323-8, 3040-3 ####[facility] [id number] [place] [address] [place] Protein [Mass/Vol] 8.1 g/dL High 6.3-8.0 [facility] Comment on above: Order Comment: Speci men Type: BLOOD SPECIMENOrdering Facility: [facility] Address: [address] [place] [address] Performed By: #### 2 4323-8, 3040-3 ####[facility] [id number] [place] [address] [place] [facility] Sodium [Moles/Vol] 140 mmol/L Normal 136-144 [facility] Comment on above: Order Comment: Speci men Type: BLOOD SPECIMENOrdering Facility: [facility] Address: [address] [place] [address] Performed By: #### 2 4323-8, 3040-3 ####[facility]CLIA [id number] [place] [address] [place] Urea nitrogen [Mass/Vol] 14 mg/dL Normal 9-24 [facility] Comment on above: Order Comment: Speci men Type: BLOOD SPECIMENOrdering Facility: [facility] Address: [address] [place] [address] Performed By: #### 2 4323-8, 3040-3 ####[facility]IA [id number] [place] [address] [place] ECG COMPLETEon 09-26-2023 ECG COMPLETE Ventricular Rate : 1 09 BPM Atrial Rate : 109 BPM P-R Interval : 140 ms QRS Duration : 72 ms Q-T Interval : 318 ms QTC Calculation(Bazett) : 428 ms Calculated P Madrid : 71 degrees Calculated R Madrid : 37 degrees Calculated T Madrid : 61 degrees SINUS TACHYCARDIA OTHERWISE NORMAL ECG NO PREVIOUS ECGS AVAILABLE Confirmed by SUSAN LATHAM MD ([id number]) on 09/26/2023 8:26:23 PM NAME : MAYITO FORBES PID : [id number] : 1985 Gender : Male Race : ORD : [id number] Procedure Date : Sep 26 2023 19:44:26 Edit Date : Sep 26 2023 20:26:23 Diagnosis: SINUS TACHYCARDIA OTHERWISE NORMAL ECG NO PREVIOUS ECGS AVAILABLE Confirmed by SUSAN LATHAM MD ([id number]) on 09/26/2023 8:26:23 PM Test Reason : Chest Pain Location : 148 : [facility]-ED ED Overread By : SUSAN LATHAM MD Edited By : SUSAN LATHAM MD Referred By : , Acquired by : NIMCO SOMMER MD [facility] ED NOTEon 09-26-2023 ED NOTE HNO ID: [id number] Author: ADELIA WILEY RN Service: Emergency Medicine Author Type: Registered Nurse Type: ED Notes Filed: 09/26/2023 11:13 Note Text: Patient was brought in by Roxana JUAREZ from the [facility] for nausea and vomiting for 2 days. He states that his hands are cramping up. Patient refused Zofran en route by medics. [facility] ED PROV NOTEon 09-26-2023 ED PROV NOTE HNO ID: [id number] Author: SUSAN LATHAM MD Service: Emergency Medicine [...] AC) Date/Time: 09/26/2023 4:00 PM Performed by: Aolnzo Casanova DO Authorized by: Susan Latham MD [...] DEENA Abbott CHRISTOPHER 09/26/232011 SUSAN LATHAM 09/26/232024 [facility] ED PROV NOTE HNO ID: [id number] Author: SUSAN LATHAM MD Service: Emergency Medicine [...] prior to transfer. Plan for admission to [facility] for intractable nausea and vomiting. Abdominal exam remained benign over his 12-hour ED stay though I do not feel that he needs a CT scan at this time. Likely gastroenteritis. He is agreeable to transfer to [facility] for overnight admission for intractable nausea/vomiting. Accepted by [facility] under Dr. Davidson. SUSAN LATHAM 09/27/23 1502 Normal [facility] ED PROV NOTE HNO ID: [id number] Author: SUSAN LATHAM MD Service: Emergency Medicine Author Type: Physician Deputy Manager Type: ED Provider Notes Filed: 09/28/2023 14:41 [...] also h (more content not included)... Normal [facility] Lipase SerPl-cCncon 09-26-19 24 Lipase [Catalytic activity/Vol] 23 U/L Normal 16-61 [facility] Comment on above: Order Comment: Speci men Type: BLOOD SPECIMENOrdering Facility: [facility] Address: [address] [place] [address] Performed By: #### 2 4323-8, 3040-3 ####[facility] LABCLIA [id number] [place] [address] [facility] Office Visiton 09-26-2023 Follow-up visit [id number] Aiden Forbes 1985 M Date Provider Department Center 09/26/2023 RADHA DHALIWAL [facility] [place] [facility] None No family history on file Level of Service:10706 [place] OFFICE/OUTPT VISIT,PROCEDURE ONLY Reason for Visit and Comments: cramping [Other] - hands Dizziness [466203] Normal [facility] Progress Noteon 09-26-2023 Progress Note N/V x2 days Can't keep anything down Hands started cramping this monring, can't control them Feels SOB, LH No CP Lips turning a different color Hx of anxiety No hx of DM No new meds Does not want to go by EMS BP 120/84 Pulse (!) 112 Temp 36.9 ?C (98.4 ?F) SpO2 100% Normal [facility] Progress Note [facility] [address] [facility] [address] Dept: [phone] Dept Loc: [phone] Subjective Mayito Forbes is a 38 y.o. [...] would be 23 minutes to get to [facility]. Patient stated he wanted to [...] dictations but occasionally words aremis-transcribed.) Radha Batista APRN-PORCELAIN ENAMELING SUPERVISOR 09/26/[address] [facility] CNOVon 08-29-2023 [facility] Office Visit (LINUSWA ) MAYITO FORBES ([id number]) 1985 M Date Time Provider Department 08/29/23 5:25 PM GENEVA CALDERA During your visit today, we recorded the following information about you: Temperature Pulse Respiration Blood pressure 98.5 degrees 94/minute 16/minute 154/85 Weight Height 87.5 kg 1.753 m Geneva Caldera APRN.FORESTRY BIOLOGY SPECIALIST 08/29/2023 5:58 PM Addendum (H93.19) Tinnitus, unspecified [...] to protect your hearing. If you use [employer], are a musician, work in an industry that uses loud machinery or use firearms (especially pistols or shotguns), always wear [id number] hearing protection. Turn down the volume. Listening [...] flow and contribute to tinnitus. Geneva Caldera APRN.[facility] 08/29/2023 6:05 PM Signed This note [...] and e (more content not included)... Normal [facility] ED Nursing Noteon 08-22-2023 ED Nursing Note Pt presents with L pinky finger injury after smashing with hammer at work today. Is UTD on tetanus. Some swelling and bruising noted to hand . Limited movement to finger. +tingling to fingers on L side Normal [facility] ED Provider Noteon ED Provider Note Emergency Department Encounter [facility] ED Patient: Mayito Forbes : 1985 Date [...] Solutions Marc Lainez, DO 08/22/23 2336 Normal [facility] ED Provider Note EMERGENCY DEPARTMENT ENCOUNTER [...] for clarif (more content not included)... Normal [facility] XR Hand - left 3 Viewson 1. No acute osseous abnormality. Report Dictated on Electronically Signed By: Joseph Kellogg MD Electronically Signed Date/Time: 08/22/2023 11:04 PM EDT [facility] Patient Name: MAYITO FORBES : 1985 Exam Date/Time: 08/22/2023 23:03 Procedure: XR HAND 3+ VIEWS LEFT Ordering Provider: LAINEZ JOSEPH Reason For Exam: HAND PAIN LEFT HAND 3 VIEWS CLINICAL INDICATION: HAND PAIN TECHNIQUE: 3 views of the left hand. COMPARISON: None. FINDINGS: No acute fracture or dislocation. Joint spaces maintained. Soft tissues grossly unremarkable. [facility] Joseph Kellogg MD - 08/22/2023 Patient Name: [...] Electronically Signed Date/Time: 08/22/2023 11:04 PM EDT [facility] Radiology Study observation (narrative) Jovana Bartlett hammad XR Hand - left 3 ViewsOrdere d By: Joseph Kellogg on 08-22-2023 [facility] [employer] Work Phone: Laboratory - Drug toxicology Ordered By: Olena Gerber on 06-07-2023 Cannabinoids Screen (U) [Mass/Vol] Positive [facility] Comment on above: THC metabolites have been [...] Screen method >1000 ng/mL Ql (U) Negative [facility] Barbiturates Screen method >200 ng/mL Ql (U) Negative [facility] Benzodiazepines Ql (U) Negative [facility] Methadone Screen Ql (U) Negative [facility] Opiates Screen Ql (U) Negative [facility] oxyCODONE Ql (U) Negative [facility] Phencyclidine Ql (U) Negative [facility] No Panel InformationOrdered By: Olena Gerber on 06-07-2023 [facility] No Panel Informationon 06-07 P Madrid 53 degrees [facility] NV Interval 168 ms [facility] QRS Madrid 41 degrees [facility] QRSD Interval 72 ms [facility] QT Interval 336 ms [facility] QTC Interval 409 ms [facility] T Wave Madrid 46 degrees [facility] SINUS RHYTHM Compared to 05/28/2023- no signicant changes Electronically Signed On 06-07-2023 07:29:16 EST by James Neil James Gilliam MD - 06/07/2023 IMPRESSION: SINUS RHYTHM Compared to 05/28/2023- no signicant changes Electronically Signed On 06-07-2023 07:29:16 EST by James Neil [facility] No Panel InformationOrdered By: Mark Estrella on 06-07-2023 COCAINE METAB. SCREEN Negative [facility] The expected value f or all [...] is needed, request confirmation under separate order. [facility] Urinalysis complete panel (U )Ordered By: Kenton Montano on 06-07-2023 Bacteria LM.HPF (Urine sed) [#/Area] Negative Negative /HPF [facility] Bilirubin Ql (U) Negative Negative mg/dL [facility] Clarity (U) Clear Clear [facility] Color (U) Yellow Lt. Yellow [facility] Epithelial cells.squamous LM.HPF (Urine sed) [#/Area] 0-2 [facility] h Glucose Ql (U) Normal Normal (<70) mg/dL [facility] Hemoglobin Ql (U) Negative Negative mg/dL [facility] Interpretation and review of laboratory results Abnormal [facility] Ketones (U) [Mass/Vol] 40 mg/dL Abnormal Negative [facility] Leukocyte esterase Test strip Ql (U) Negative Negative Raina/uL [facility] Mucus LM.HPF (Urine sed) [#/Area] Few Negative /LPF [facility] Nitrite Ql (U) Negative Negative [facility] th pH (U) 7.0 [pH] 5.0 - 8.0 pH [facility] Protein (U) [Mass/Vol] 70 mg/dL Abnormal Negative [facility] RBC LM.HPF (Urine sed) [#/Area] 3-5 Abnormal [facility] Specific gravity (U) [Rel density] High 1.005 - 1.030 [facility] Urobilinogen (U) [Mass/Vol] Normal Normal (0-1) mg/dL [facility] WBC LM.HPF (Urine sed) [#/Area] 3-5 [facility] Vital signson 06-07-2023 Heart rate 89 /min bpm [facility] XR Chest Single viewon 06-07 1. Lines/Tubes/Devices/Milton [...] Electronically Signed Date/Time: 06/07/2023 1:20 AM EST [facility] RADIOLOGY SYSTEM Patient Name: MAYITO FORBES : 1985 [id number] Exam Date/Time: 06/07/2023 01:17 Procedure: XR CHEST 1 VIEW Ordering Provider: VILLALOBOS ADAM Reason For Exam: TACHYCARDIA EXAM TYPE: RADIOLOGIC EXAMINATION, CHEST, SINGLE VIEW FRONTAL (CXR SINGLE VIEW) EXAM DATE AND TIME: 06/07/2023 1:17 AM EST INDICATION: Tachycardia COMPARISON: 05/28/2023 TECHNIQUE: A single frontal view of the thorax was obtained and reviewed. Special views: None. [facility] Darren Junior MD - 06/07/2023 Patient Name: [...] Electronically Signed Date/Time: 06/07/2023 1:20 AM EST [facility] Radiology Study observation (narrative) [facility] Dhruv alth XR Chest Single viewOrdered By: Darren Junior on 06-07-2023 [facility] Work Phone: CBC W Auto Differential pane l (Bld)Ordered By: Jose Donald on 06-06-2023 Basophils (Bld) [#/Vol] 0.0 10*3/uL 0.0 - 0.2 10*3/uL [facility] Basophils/100 WBC (Bld) 0.1 % 0.0 - 2.0 % [facility] Eosinophils (Bld) [#/Vol] 0.0 10*3/uL 0.0 - 0.5 10*3/uL [facility] Eosinophils/100 WBC (Bld) 0.0 % Low 1.0 - 6.0 % [facility] Erythrocyte distribution width (RBC) [Ratio] 13.1 % 11.5 - 14.5 % [facility] Hematocrit (Bld) [Volume fraction] 53.9 % High 40.0 - 52.0 % [facility] Hemoglobin (Bld) [Mass/Vol] 18.8 g/dL High 13.0 - 18.0 g/dL [facility] Interpretation and review of laboratory results Abnormal [facility] Lymphocytes (Bld) [#/Vol] 0.4 10*3/uL Low 1.0 - 4.3 10*3/uL [facility] Lymphocytes/100 WBC (Bld) 2.6 % Low 20.0 - 40.0 % [facility] MCH (RBC) [Entitic mass] 31.1 pg 26. 0 - 34.0 pg [facility] MCHC (RBC) [Mass/Vol] 34.9 % 32.0 - 36.0 % [facility] MCV (RBC) [Entitic vol] 89.0 fL 80.0 - 98.0 fL [facility] Monocytes (Bld) [#/Vol] 0.4 10*3/uL 0.0 - 0.8 10*3/uL [facility] Monocytes/100 WBC (Bld) 2.9 % 2.0 - 10.0 % [facility] Neutrophils (Bld) [#/Vol] 12.9 10*3/uL High 1.8 - 7.0 10*3/uL [employer] Neutrophils/100 WBC (Bld) 94.4 % High 40.0 - 80.0 % [employer] Nucleated RBC/100 WBC (Bld) [Ratio] 0.4 % [employer] Platelet mean volume (Bld) [Entitic vol] 7.4 fL 7.4 - 12.4 fL [employer] Platelets (Bld) [#/Vol] 366 10*3/uL 140 - 440 10*3/uL [facility] [employer] RBC (Bld) [#/Vol] 6.06 10*6/uL High 4.40 - 5.9 0 10*6/uL [employer] WBC (Bld) [#/Vol] 13.6 10*3/uL High 3.6 - 10.7 10*3/uL [facility] [employer] [facility] [employer] CT Abdomen and Pelvis W cont rast Tyrell 06-06-2023 1. No acute findings. Report Dictated on Electronically Signed By: Joseph Kellogg MD Electronically Signed Date/Time: 06/06/2023 9:56 PM EST [employer] Patient Name: MAYITO FORBES : 1985 Exam [...] aorta is nonaneurysmal. Axial skeleton grossly intact. [facility] [employer] Joseph Kellogg MD - 06/06/2023 Patient Name: [...] Electronically Signed Date/Time: 06/06/2023 9:56 PM EST [facility] Radiology Study observation (narrative) [facility] CT Abdomen and Pelvis W cont rast IVOrdered By: Joseph Kellogg on 06-06-2023 [facility] Work Phone: Comprehensive metabolic 1998 panelon 06-06-2023 Albumin [Mass/Vol] 4.9 g/dL 3.5 - 5.0 g/dL [facility] ALP [Catalytic activity/Vol] 92 U/L 38 - 126 U/L [facility] ALT [Catalytic activity/Vol] 33 U/L 0 - 49 U/L [facility] Anion gap [Moles/Vol] 15 mmol/L High 3 - 13 mmol/L [facility] AST [Catalytic activity/Vol] 28 U/L 15 - 46 U/L [facility] Bilirubin [Mass/Vol] 0.6 mg/dL 0.2 - 1 .3 mg/dL [facility] Calcium [Mass/Vol] 9.9 mg/dL 8.4 - 10. 4 mg/dL [facility] Chloride [Moles/Vol] 107 mmol/L 98 - 10 7 mmol/L [facility] CO2 [Moles/Vol] 18 mmol/L Low 22 - 30 mmol/L [facility] Creatinine [Mass/Vol] 0.77 mg/dL 0.66 - 1.25 mg/dL [facility] GFR/1.73 sq M.predicted MDRD (S/P/Bld) [Vol rate/Area] - PINF [facility] Comment on above: Calculation based on the Chronic Kidney Disease Epidemiology Collaboration (CKD-EPI) equation refit without adjustment for race Glucose [Mass/Vol] 132 mg/dL High 70 - 100 mg/dL [facility] Potassium [Moles/Vol] 4.2 mmol/L 3.5 - 5.1 mmol/L [facility] Protein [Mass/Vol] 8.8 g/dL High 6.3 - 8.2 g/dL [facility] Sodium [Moles/Vol] 140 mmol/L 135 - 145 mmol/L [facility] Urea nitrogen [Mass/Vol] 14 mg/dL 9 - 20 mg/dL [facility] Laboratory - Chemistry and C hemistry - challengeon 06-06-2023 Troponin I.cardiac [Mass/Vol] ng/mL NINF - 0.034 ng/mL [facility] Lipase [Catalytic activity/Vol] 22 U/L Low 23 - 300 U/L [facility] Magnesium [Mass/Vol] 2.0 mg/dL 1.6 - 2 .3 mg/dL [facility] Laboratory - Microbiology an d Antimicrobial susceptibilityon 06-06-2023 FLUAV RNA KATLYN+probe Ql (Resp) Not detected Not Detected [facility] FLUBV RNA KATLYN+probe Ql (Resp) Not detected Not Detected [facility] RSV RNA KATLYN+probe Ql (Resp) Not detected Not Detected [facility] SARS-CoV-2 (COVID-19) RNA KATLYN+probe Ql (Resp) Not detected Not Detected [facility] SARS-CoV-2 (COVID-19) RNA KATLYN+probe Ql (Unsp spec) Methodology: real-time, RT-PCR The SARS-CoV-2, Flu A/B, and RSV Combo assay is intended for in vitro diagnostic use under the FDA Emergency Use Authorization (EUA). This test has not been FDA cleared or approved. In compliance with this authorization, please visit www.fda.gov/media/04274 5/download or www.fda.gov/media/73374 6/download to access the applicable information sheets. [facility] Magnesium [Mass/Vol]on 06-06 Interpretation and review of laboratory results Normal [facility] No Panel Informationon 06-06 Interpretation and review of laboratory results Abnormal [facility] SARS-CoV-2, Flu A/B, and RSV Comboon 06-06-2023 Interpretation and review of laboratory results Normal [facility] Troponin I.cardiac [Mass/Vol ]on 06-06-2023 Interpretation and review of laboratory results Normal [facility] Patients with high levels of Biotin oral intake (ie >5 mg/day) may have falsely decreased Troponin levels. [facility] CBC W Auto Differential pane l (Bld)Ordered By: Mark Estrella on 05-28-2023 Basophils (Bld) [#/Vol] 0.0 10*3/uL 0.0 - 0.2 10*3/uL [facility] Basophils/100 WBC (Bld) 0.5 % 0.0 - 2.0 % [facility] Eosinophils (Bld) [#/Vol] 0.1 10*3/uL 0.0 - 0.5 10*3/uL [facility] Eosinophils/100 WBC (Bld) 1.6 % 1.0 - 6.0 % [facility] Erythrocyte distribution width (RBC) [Ratio] 12.7 % 11.5 - 14.5 % [facility] Hematocrit (Bld) [Volume fraction] 47.9 % 40.0 - 52.0 % [facility] Hemoglobin (Bld) [Mass/Vol] 16.9 g/dL 13.0 - 18.0 g/dL [facility] Interpretation and review of laboratory results Abnormal [facility] Lymphocytes (Bld) [#/Vol] 1.5 10*3/uL 1.0 - 4.3 10*3/uL [facility] Lymphocytes/100 WBC (Bld) 26.3 % 20.0 - 40.0 % [facility] MCH (RBC) [Entitic mass] 31.6 pg 26. 0 - 34.0 pg [facility] MCHC (RBC) [Mass/Vol] 35.3 % 32.0 - 36.0 % [facility] MCV (RBC) [Entitic vol] 89.3 fL 80.0 - 98.0 fL [employer] Monocytes (Bld) [#/Vol] 0.4 10*3/uL 0.0 - 0.8 10*3/uL [facility] Monocytes/100 WBC (Bld) 7.0 % 2.0 - 10.0 % [employer] Neutrophils (Bld) [#/Vol] 3.8 10*3/uL 1.8 - 7.0 10*3/uL [facility] Neutrophils/100 WBC (Bld) 64.6 % 40.0 - 80.0 % [employer] Nucleated RBC/100 WBC (Bld) [Ratio] 0.2 % [facility] [employer] Platelet mean volume (Bld) [Entitic vol] 6.9 fL Low 7.4 - 12.4 fL [facility] [employer] Platelets (Bld) [#/Vol] 291 10*3/uL 140 - 440 10*3/uL [facility] [employer] RBC (Bld) [#/Vol] 5.36 10*6/uL 4.40 - 5.9 0 10*6/uL [facility] [employer] WBC (Bld) [#/Vol] 5.9 10*3/uL 3.6 - 10.7 10*3/uL [facility] CT Head WO contraston 2022 No acute intracranial abnormalities. Report Dictated on Electronically Signed By: Davie Perez MD Electronically Signed Date/Time: 05/28/2023 1:12 AM EST [facility] Patient Name: MAYITO FORBES : 1985 Exam [...] included paranasal sinuses and orbits are normal. [facility] Davie Perez M D - 05/28/2023 Patient Name: MAYITO FORBES : 1985 [facility] [place]#: [id number] Exam Date/Time: 05/28/2023 00:39 Procedure: CT HEAD [...] Electronically Signed Date/Time: 05/28/2023 1:12 AM EST [facility] Radiology Study observation (narrative) [facility] Comprehensive metabolic 1998 panelon 05-28-2023 Albumin [Mass/Vol] 4.6 g/dL 3.5 - 5.0 g/dL [facility] ALP [Catalytic activity/Vol] 84 U/L 38 - 126 U/L [facility] ALT [Catalytic activity/Vol] 39 U/L 0 - 49 U/L [facility] Anion gap [Moles/Vol] 15 mmol/L High 3 - 13 mmol/L [facility] AST [Catalytic activity/Vol] 40 U/L 15 - 46 U/L [facility] Bilirubin [Mass/Vol] 0.7 mg/dL 0.2 - 1 .3 mg/dL [facility] Calcium [Mass/Vol] 9.6 mg/dL 8.4 - 10. 4 mg/dL [facility] Chloride [Moles/Vol] 95 mmol/L Low 98 - 10 7 mmol/L [facility] CO2 [Moles/Vol] 27 mmol/L 22 - 30 mmol/L [facility] Creatinine [Mass/Vol] 0.98 mg/dL 0.66 - 1.25 mg/dL [facility] GFR/1.73 sq M.predicted MDRD (S/P/Bld) [Vol rate/Area] - PINF [facility] Comment on above: Calculation based on the Chronic Kidney Disease Epidemiology Collaboration (CKD-EPI) equation refit without adjustment for race Glucose [Mass/Vol] 220 mg/dL High 70 - 100 mg/dL [facility] Potassium [Moles/Vol] 3.5 mmol/L 3.5 - 5.1 mmol/L [facility] Protein [Mass/Vol] 7.8 g/dL 6.3 - 8.2 g/dL [facility] Sodium [Moles/Vol] 137 mmol/L 135 - 145 mmol/L [facility] Urea nitrogen [Mass/Vol] 9 mg/dL 9 - 20 mg/dL [facility] Ethanol (Bld) [Mass/Vol]on Ethanol [Mass/Vol] g/dL 0.000 - 0.010 g/dL [facility] Laboratory - Chemistry and C hemistry - challengeon 05-28-2023 CK.MB [Mass/Vol] 5.5 ng/mL High 0.0 - 4.4 ng/mL [facility] Comment on above: Both the CKMB and th e Relative Index must be abnormal for clinical significance. CK [Catalytic activity/Vol] 323 U/L High 30 - 170 U/L [facility] Glucose [Mass/Vol] 242 mg/dL High 70 - 100 mg/dL [facility] Laboratory - Drug toxicology Ordered By: Kenton Montano on 05-28-2023 Amphetamines Screen method >1000 ng/mL Ql (U) Positive [facility] Barbiturates Screen method >200 ng/mL Ql (U) Negative [facility] Benzodiazepines Ql (U) Negative [facility] Methadone Screen Ql (U) Negative [facility] Opiates Screen Ql (U) Negative [facility] oxyCODONE Ql (U) Negative [facility] Phencyclidine Ql (U) Negative [facility] Laboratory - Drug toxicology on 05-28-2023 Acetaminophen [Mass/Vol] ug/mL Low 10. 0 - 30.0 ug/mL [facility] Salicylates [Mass/Vol] mg/dL NINF - 20.0 mg/dL [facility] No Panel InformationOrdered By: Bharat Pennington on 05-28-2023 P [place] 49 degrees [facility] [employer] Work Phone: NV Interval 188 ms [facility] [employer] Work Phone: QRS [place] 73 degrees [facility] [employer] Work Phone: QRSD Interval 74 ms [facility] [employer] Work Phone: QT Interval 376 ms [facility] [employer] Work Phone: QTC Interval 406 ms [facility] Work Phone: T Wave [place] 40 degrees [facility] Work Phone: [facility] [employer] Work Phone: No Panel Informationon 05-28 SINUS RHYTHM No prior EKG for comparison Electronically Signed On 05-28-2023 10:03:35 EST by Bharat Pennington Bharat Gant MD - 05/28/2023 IMPRESSION: SINUS RHYTHM No prior EKG for comparison Electronically Signed On 05-28-2023 10:03:35 EST by Bharat Pennington [facility] Interpretation and review of laboratory results Abnormal [facility] RELATIVE INDEX 1.7 0.0 - 3.0 [facility] Interpretation and review of laboratory results Abnormal [facility] Interpretation and review of laboratory results Normal [facility] Interpretation and review of laboratory results Abnormal [facility] Performed by: Jovana Schwartz [facility], [address] [place] [address] CLIA ID: [id number] [facility] No Panel InformationOrdered By: Kenton Montano on 05-28-2023 COCAINE METAB. SCREEN Negative [facility] The expected value f or all [...] is needed, request confirmation under separate order. [facility] Vital signsOrdered By: Juan Pennington on 05-28-2023 Heart rate 70 /min bpm [employer] Work Phone: XR Chest Single viewon 05-28 Low lung volumes with mild bronchitis and subtle groundglass opacities which could be due to atelectasis or viral infection. Report Dictated on Electronically Signed By: Davie Perez MD Electronically Signed Date/Time: 05/28/2023 1:00 AM [facility] Patient Name: MAYITO FORBES : [...] effusion. No focal airspace consolidation. Bones: Unremarkable [facility] Davie Perez M D - [...] MD Electronically Signed Date/Time: 05/28/2023 1:00 AM [facility] [employer] Radiology Study observation (narrative) [facility] X[facility] Chest Single viewOrdered By: Davie Perez on 05-28-2023 [facility] Work Phone: No Panel Informationon 03-08 Alex Santiago MD 03/08/2023 8:11 PM Incision and Drainage Performed by: Alex Santiago MD Authorized by: Alex Santiago MD Consent: Consent obtained: Verbal Consent given by: Patient Risks, benefits, and alternatives were discussed: yes Risks discussed: Bleeding Alternatives discussed: No treatment [place] protocol: Procedure explained and questions answered to [...] materials: None Post-procedure details: Procedure completion: Tolerated [facility] Foreign Body Removal - Embed dedon 02-23-2023 Alex Santiago MD 02/23/2023 5:53 PM Foreign Body Removal - Embedded Performed by: Alex Santiago MD Authorized by: Alex Santiago MD Consent: Consent obtained: Verbal Consent given by: Patient Risks, benefits, and alternatives were discussed: yes Risks discussed: Bleeding and infection Alternatives discussed: No treatment and alternative treatment [place] protocol: Procedure explained and questions answered to [...] None Dressing: Open (no dressing) Procedure completion: [facility] XR Hand - right 3 Viewson [place] within the left fourth digit soft tissues. No fracture or dislocation. Report Dictated on Electronically Signed By: Chintan Todd MD Electronically Signed Date/Time: 02/23/2023 6:12 PM EDT [facility] [employer] [facility] Patient Name: MAYITO FORBES : 1985 Exam Date/Time: 02/23/2023 17:45 Procedure: XR HAND 3+ VIEWS RIGHT Ordering Provider: SANTIAGO VIJAY Reason For Exam: TRAUMA RIGHT HAND: CLINICAL INDICATION: Pain, trauma. TECHNIQUE: PA, Lat, and oblique COMPARISON: None. FINDINGS: [place] within the fourth digit soft tissues of the distal phalanx. There is no fracture or dislocation. No arthritic change is identified. No bone lesion is identified. There is no soft tissue abnormality. [facility] Chintan Todd MD - 02/23/2023 Patient Name: MAYITO FORBES : 1985 Exam Date/Time: 02/23/2023 17:45 Procedure: XR HAND 3+ VIEWS RIGHT Ordering Provider: SANTIAGO VIJAY Reason For Exam: TRAUMA RIGHT HAND: CLINICAL INDICATION: Pain, trauma. TECHNIQUE: PA, Lat, and oblique COMPARISON: None. FINDINGS: [place] within the fourth digit soft tissues of the distal phalanx. There is no fracture or dislocation. No arthritic change is identified. No bone lesion is identified. There is no soft tissue abnormality. IMPRESSION: [place] within the left fourth digit soft tissues. No fracture or dislocation. Report Dictated on Electronically Signed By: Chintan Todd MD Electronically Signed Date/Time: 02/23/2023 6:12 PM EDT [facility] Radiology Study observation (narrative) [facility] XR Hand - right 3 ViewsOrder ed By: Chintan Todd on 02-23-2023 [facility] [employer] Work Phone: Culture, urineOrdered By: Ashley Buck on 09-30-2022 Bacteria identified Cx Nom (U) Positive [facility] Basophil percentageOrdered B y: Lamberto Buck on 09-28-2022 Basophil percentage 0 SEEN /hpf 0-5 [facility] C. trachomatis DNA KATLYN+probe Ql (Unsp spec) Negative Negative [facility] Bilirubin Test strip Ql (U)O rdered By: Lamberto Buck on 09-28-2022 Bilirubin Ql (U) Negative Negative [facility] Ketones Test strip Ql (U)Ord ered By: Lamberto Buck on 09-28-2022 Ketones Ql (U) 5 mg/dl Negative [facility] Laboratory - Chemistry and C hemistry - challengeon 09-28-2022 Bilirubin Ql (U) Negative [facility] Glucose Ql (U) Negative [facility] Ketones Ql (U) Negative [facility] pH (U) 8.5 [pH] [facility] Specific gravity (U) [Rel density] 1.010 [facility] Urobilinogen (U) [Mass/Vol] 0.0591450 mg/dL [facility] Laboratory - Hematology and Cell countson 09-28-2022 Hemoglobin Ql (U) Negative [facility] Laboratory - Specimen inform ationon 09-28-2022 Clarity (U) Clear [facility] Color (U) DARK YELLOW [facility] Laboratory - Urinalysison Nitrite Ql (U) Negative [facility] Protein Ql (U) Trace [facility] Mucus LM Ql (Urine sed)Order ed By: Lamberto Buck on 09-28-2022 Mucus Ql (Urine sed) 0 SEEN /hpf [facility] Neisseria gonorrhoeae detect ion by PCROrdered By: Lamberto Buck on 09-28-2022 N. gonorrhoeae DNA KATLYN+probe Ql (Cervical mucus) Negative Negative [facility] Nitrite Test strip Ql (U)Ord ered By: Lamberto Buck on 09-28-2022 Nitrite Ql (U) Negative Negative [facility] No Panel Informationon 09-28 Urine Leukocytes Negatve [facility] Urine Non-Hemolyzed Blood [facility] Protein Test strip Ql (U)Ord ered By: Lamberto Buck on 09-28-2022 Protein Ql (U) Negative Negative [facility] Squamous epithelial cells de tection in urine sediment by light microscopyOrdered By: Lamberto Buck on 09-28-2022 Epithelial cells.squamous LM Ql (Urine sed) 0 SEEN /hpf 0-5 [facility] Urine blood detectionOrdered By: Lamberto Buck on 09-28-2022 RBC Ql (U) Negative Negative [facility] RBC Ql (U) 0 SEEN /hpf 0-5 [facility] Urine clarityOrdered By: Rojas Buck on 09-28-2022 Clarity (U) Clear Clear [facility] Urine color determinationOrd ered By: Lamberto Buck on 09-28-2022 Color (U) Yellow Yellow [facility] Urine glucose detectionOrder ed By: Lamberto Buck on 09-28-2022 Glucose Ql (U) Normal mg/dl Normal [facility] Urine leukocyte esterase det ection by dipstickOrdered By: Lamberto Buck on 09-28-2022 Leukocyte esterase Test strip Ql (U) 25 /ul Negative [facility] Urine pHOrdered By: Lamberto andrade on 09-28-2022 pH (U) 8.0 [pH] 5.0 - 8.0 [facility] Urine sediment bacteria coun t by microscopy (number/high power field)Ordered By: Lamberto Buck on 09-28-2022 Bacteria LM.HPF (Urine sed) [#/Area] 0 /[HPF] None Seen [facility] Urine specific gravity measu rementOrdered By: Lamberto Buck on 09-28-2022 Specific gravity (U) [Rel density] 1.020 1.002-1.030 [facility] Urobilinogen Auto test strip Ql (U)Ordered By: Lamberto Buck on 09-28-2022 Urobilinogen Ql (U) Normal mg/dl Normal [facility] Phosphatidylethanol Confirma tion, Bloodon 06-04-2022 [place] [facility] PETH 16:0/18:1 (POPETH) BY LC MS/MS <10 [facility] Comment on above: Phosphatidylethanol (PEth) homologues [...] and Briana Denney 2018 J. Forensic Sci) [place] [facility] P[facility] 16:0/18:2 (PLPETH) BY LC MS/MS <10 [facility] Comment on above: PEth 16:0/18:2 (PLPE th) Reference ranges are not well established [place] [facility] INTERPRETATION Negative [facility] Comment on above: ADDITIONAL INFORMATION This report is intended for use in clinical monitoring and management of patients. It is not intended for use in employment-related testing. This test was developed and its performance characteristics determined by [facility] in a manner consistent with CLIA requirements. This test has not been cleared or approved by the U.S. Food and Drug Administration. Test Performed by: [facility] - [address] [address] Certified Genetic Counselor: Mario Gupta M.D. Ph.D.; CLIA# [id number] [facility] Basic metabolic 2000 panelon 06-03-2022 Anion gap [Moles/Vol] 17 mmol/L 10 - 2 0 mmol/L [facility] Calcium [Mass/Vol] 9.1 mg/dL 8.4 - 10. 2 mg/dL [facility] Chloride [Moles/Vol] 109 mmol/L High 98 - 10 8 mmol/L [facility] Creatinine [Mass/Vol] 0.66 mg/dL 0.50 - 1.30 mg/dL [facility] GFR/1.73 sq M.predicted CKD-EPI (S/P/Bld) [Vol rate/Area] 125 - PINF [facility] Comment on above: Estimated GFR was ca lculated using the 2020 CKD-EPI creatinine equation. Glucose [Mass/Vol] 106 mg/dL High 65 - 99 mg/dL [facility] HCO3 [Moles/Vol] 21 mmol/L 21 - 32 mmol/L [facility] Interpretation and review of laboratory results Abnormal [facility] Potassium [Moles/Vol] 3.6 mmol/L 3.5 - 5.1 mmol/L [facility] Sodium [Moles/Vol] 143 mmol/L 135 - 145 mmol/L [facility] Urea nitrogen [Mass/Vol] 7 mg/dL Low 8 - 25 mg/dL [facility] Urea nitrogen/Creatinine [Mass ratio] 10.6 mg/mg 10.0 - 20.0 [facility] has implemented the eGFR calculation approach that does not have a coefficient for race that conforms to the NKF-ASN Task Force Recommendations. [facility] CBC Auto Differentialon Basophils (Bld) [#/Vol] 0.03 10*3/uL [facility] Basophils/100 WBC (Bld) 0.3 % [facility] Eosinophils (Bld) [#/Vol] 0.02 10*3/uL [facility] Eosinophils/100 WBC (Bld) 0.2 % [facility] Erythrocyte distribution width (RBC) [Entitic vol] 13.0 % 11.6 - 14.8 % [facility] Hematocrit (Bld) [Volume fraction] 40.3 % Low 41.0 - 53.0 % [facility] Hemoglobin (Bld) [Mass/Vol] 14.2 g/dL 13.5 - 17.5 g/dL [facility] Immature granulocytes (Bld) [#/Vol] 0.04 10*3/uL [facility] Immature granulocytes/100 WBC (Bld) 0.40 % [facility] Comment on above: The IG parameter is the percentage of metamyelocytes, myelocytes and promyelocytes. An immature granulocyte count (IG) of 1% or more suggests the possibility of infection, an IG count of 3% is very likely related to an infection. Interpretation and review of laboratory results Abnormal [facility] Lymphocytes (Bld) [#/Vol] 1.47 10*3/uL [facility] Lymphocytes/100 WBC (Bld) 15.1 % [facility] MCH (RBC) [Entitic mass] 28.8 pg 26. 0 - 34.0 pg [facility] MCHC (RBC) [Mass/Vol] 35.2 g/dL 31.0 - 37.0 g/dL [facility] MCV (RBC) [Entitic vol] 81.7 fL 80.0 - 100.0 fL [facility] Monocytes (Bld) [#/Vol] 0.72 10*3/uL [facility] Monocytes/100 WBC (Bld) 7.4 % [facility] Neutrophils (Bld) [#/Vol] 7.48 10*3/uL High [facility] Neutrophils/100 WBC (Bld) 76.6 % [facility] Nucleated RBC (Bld) [#/Vol] 0.00 10*3/uL [facility] Nucleated RBC/100 WBC (Bld) [Ratio] 0.0 % [facility] Platelet mean volume (Bld) [Entitic vol] 9.3 fL Low 9.4 - 12.4 fL [facility] Platelets (Bld) [#/Vol] 309 10*3/uL [facility] RBC (Bld) [#/Vol] 4.93 10*6/uL [facility] WBC (Bld) [#/Vol] 9.76 10*3/uL [facility] Magn[facility] Levelon 06-03-2022 Magnesium [Mass/Vol] 2.2 mg/dL 1.6 - 2 .4 mg/dL [facility] Magnesium [Mass/Vol]on 06-03 Interpretation and review of laboratory results Normal [facility] CBC Auto Differentialon Basophils (Bld) [#/Vol] 0.03 10*3/uL [facility] Basophils/100 WBC (Bld) 0.3 % [facility] Eosinophils (Bld) [#/Vol] 0.03 10*3/uL [facility] Eosinophils/100 WBC (Bld) 0.3 % [facility] Erythrocyte distribution width (RBC) [Entitic vol] 12.8 % 11.6 - 14.8 % [facility] Hematocrit (Bld) [Volume fraction] 38.4 % Low 41.0 - 53.0 % [facility] Hemoglobin (Bld) [Mass/Vol] 13.4 g/dL Low 13.5 - 17.5 g/dL [facility] Immature granulocytes (Bld) [#/Vol] 0.05 10*3/uL [facility] Immature granulocytes/100 WBC (Bld) 0.40 % [facility] Comment on above: The IG parameter is the percentage of metamyelocytes, myelocytes and promyelocytes. An immature granulocyte count (IG) of 1% or more suggests the possibility of infection, an IG count of 3% is very likely related to an infection. Interpretation and review of laboratory results Abnormal [facility] Lymphocytes (Bld) [#/Vol] 1.30 10*3/uL [facility] Lymphocytes/100 WBC (Bld) 11.5 % [facility] MCH (RBC) [Entitic mass] 28.5 pg 26. 0 - 34.0 pg [facility] MCHC (RBC) [Mass/Vol] 34.9 g/dL 31.0 - 37.0 g/dL [facility] MCV (RBC) [Entitic vol] 81.5 fL 80.0 - 100.0 fL [facility] Monocytes (Bld) [#/Vol] 0.63 10*3/uL [facility] Monocytes/100 WBC (Bld) 5.6 % [facility] Neutrophils (Bld) [#/Vol] 9.29 10*3/uL High [facility] Neutrophils/100 WBC (Bld) 81.9 % [facility] Nucleated RBC (Bld) [#/Vol] 0.00 10*3/uL [facility] Nucleated RBC/100 WBC (Bld) [Ratio] 0.0 % [facility] Platelet mean volume (Bld) [Entitic vol] 8.8 fL Low 9.4 - 12.4 fL [facility] Platelets (Bld) [#/Vol] 308 10*3/uL [facility] RBC (Bld) [#/Vol] 4.71 10*6/uL [facility]alth WBC (Bld) [#/Vol] 11.33 10*3/uL [facility] CPK NO MBon 06-02-2022 CK [Catalytic activity/Vol] 35 U/L Low 60 - 225 U/L [facility] CRP, Inflammationon 06-02-19 CRP [Mass/Vol] 7.8 mg/L NINF - 10.0 mg/L [facility] Comprehensive metabolic 2000 panelon 06-02-2022 Albumin [Mass/Vol] 3.0 g/dL Low 3.2 - 5.2 g/dL [facility] ALP [Catalytic activity/Vol] 88 U/L 40 - 140 U/L [facility] ALT [Catalytic activity/Vol] 19 U/L 14 - 65 U/L [facility] Anion gap [Moles/Vol] 15 mmol/L 10 - 2 0 mmol/L [facility] AST [Catalytic activity/Vol] 16 U/L 0 - 45 U/L [facility] Bilirubin [Mass/Vol] 0.6 mg/dL 0.0 - 1 .3 mg/dL [facility] Calcium [Mass/Vol] 9.1 mg/dL 8.4 - 10. 2 mg/dL [facility] Chloride [Moles/Vol] 109 mmol/L High 98 - 10 8 mmol/L [facility] Creatinine [Mass/Vol] 0.62 mg/dL 0.50 - 1.30 mg/dL [facility] GFR/1.73 sq M.predicted CKD-EPI (S/P/Bld) [Vol rate/Area] 127 - PINF [facility] Comment on above: Estimated GFR was ca lculated using the 2020 CKD-EPI creatinine equation. Glucose [Mass/Vol] 90 mg/dL 65 - 99 mg/dL [facility] HCO3 [Moles/Vol] 19 mmol/L Low 21 - 32 mmol/L [facility] Interpretation and review of laboratory results Abnormal [facility] Potassium [Moles/Vol] 3.1 mmol/L Low 3.5 - 5.1 mmol/L [facility] Protein [Mass/Vol] 7.0 g/dL 6.0 - 8.0 g/dL [facility] Sodium [Moles/Vol] 140 mmol/L 135 - 145 mmol/L [facility] Urea nitrogen [Mass/Vol] 9 mg/dL 8 - 25 mg/dL [facility] Urea nitrogen/Creatinine [Mass ratio] 14.5 mg/mg 10.0 - 20.0 [facility] has implemented the eGFR calculation approach that does not have a coefficient for race that conforms to the NKF-ASN Task Force Recommendations. [facility] Drugs of Abuse Screen, Urine on 06-02-2022 Amphetamines Ql (U) Not detected None Detected [facility] Comment on above: Urine Amphetamine Cu toff: < 1000 ng/mL = None Detected Barbiturates Screen Ql (U) Not detected None Detected [facility] Comment on above: Urine Barbiturates C utoff: < 200 ng/mL = None Detected Benzodiazepines Ql (U) Not detected None Detected [facility] Comment on above: Urine Benzodiazepine Cutoff: < 200 ng/mL = None Detected Buprenorphine Ql (U) Not detected None Detected [facility] Comment on above: Urine Buprenorphine Cutoff: < 5 ng/mL = None Detected Cannabinoids Screen Ql (U) Not detected None Detected [facility] Comment on above: Urine Cannabinoids C utoff: < 50 ng/mL = None Detected Cocaine Ql (U) Not detected None Detected [facility] Comment on above: Urine Cocaine Cutoff : < 300 ng/mL = None Detected fentaNYL+Norfentanyl Screen Ql (U) Positive Abnormal None Detected [facility] Comment on above: Urine Fentanyl Cutof f: < 1 ng/mL = None Detected Interpretation and review of laboratory results Abnormal [facility] Methadone Screen Ql (U) Not detected None Detected [facility] Comment on above: Urine Methadone Cuto ff: < 300 ng/mL = None Detected Opiates Screen Ql (U) Not detected None Detected [facility] Comment on above: Urine Opiates Cutoff : < 300 ng/mL = None Detected oxyCODONE Ql (U) Not detected None Detected [facility] Comment on above: Urine Oxycodone Cuto ff: < 100 ng/mL = None Detected Specimen will be kep t for 1 week, if the sample is adequate. Confirmation testing can be initiated by calling the lab within 1 week. Screen results should be used for treatment purposes only. [facility] EEG (Standard)on 06-02-2022 Hal Clarke MD 06/02/2022 12:14 PM [facility] EEG Report Reason for EEG: Seizures Summary: [...] epileptiform discharges or ictal activity was seen. [facility] ESR Westergren method (Bld) [Velocity]on 06-02-2022 ESR (Bld) [Velocity] 21 mm/h High [facility] Interpretation and review of laboratory results Abnormal [facility] Iron Study with Ferritinon 0 06-02-2022 Ferritin [Mass/Vol] 224 ng/mL 30 - 400 ng/mL [facility] Iron [Mass/Vol] 51 ug/dL [facility] Iron binding capacity [Mass/Vol] 203 Low [facility] Iron saturation [Mass fraction] 25 % 20 - 50 % [facility] Magnesium Levelon 06-02-2022 Magnesium [Mass/Vol] 2.0 mg/dL 1.6 - 2 .4 mg/dL [facility] Magnesium [Mass/Vol]on 06-02 [facility] No Panel Informationon 06-02 Interpretation and review of laboratory results Abnormal [facility] Interpretation and review of laboratory results Normal [facility] Potassium Levelon 06-02-2022 Potassium [Moles/Vol] 3.6 mmol/L 3.5 - 5.1 mmol/L [facility] Potassium [Moles/Vol]on Interpretation and review of laboratory results Normal [facility] Prolactinon 06-02-2022 Prolactin [Mass/Vol] 5.4 ng/mL 1.6 - 1 8.8 ng/mL [facility] Prolactin [Mass/Vol]on 06-02 Interpretation and review of laboratory results Normal [facility] B12/Folateon 06-01-2022 Cobalamin (Vitamin B12) [Mass/Vol] 527 pg/mL 193 - 986 pg/mL [facility] Folate [Mass/Vol] ng/mL High 3.1 - 17.5 ng/mL [facility] Comment on above: Deficient <2.2 Borderline 2.2 - 3.0 Excessive >17.5 Interpretation and review of laboratory results Abnormal [facility] CT HEAD OR BRAIN WITHOUT CON TRASTon [...] TueJun 01, 2022 4:17:32 PM EST Normal [facility] Comment on above: Order Comment: Injur y/Trauma or Illness?:Illness/Other How long have you had these symptoms (acute/chronic)?:Acute Reason for exam?:seizure Type of Exam?:Initial Additional signs and symptoms?:n/a CT Head Or Brain Without Con traston 06-01-2022 No acute intracranial process. No substantial change since 05/30/2022. Workstation ID: [id number] EXAMINATION: CT HEAD OR BRAIN WITHOUT CONTRAST [...] thickening. Mastoid air cells are well aerated. [id number] Geovani Burns, DO - 06/01/2022 EXAMINATION: CT [...] substantial change since 05/30/2022. Workstation ID: [id number] [facility] Radiology Study observation (narrative) [facility] CT Head Or Brain Without Con trastOrdered By: Geovani Burns on 06-01-2022 [facility] Work Phone: ECG 12 Leadon 06-01-2022 Atrial Rate 99 BPM [facility] P [place] 70 degrees [facility] P-R Interval 148 ms [facility] Q-T Interval 356 ms [facility] QRS Duration 70 ms [facility] QTC Calculation (Bezet) 456 ms [facility] R [place] 13 degrees [facility] T [place] 12 degrees [facility] Ventricular Rate 99 BPM [facility] Normal sinus rhythm Normal ECG Confirmed by Bill Alejandra MD ([id number]) on 06/01/2022 9:08:47 AM [facility] Glucose (Bld) [Mass/Vol]on 0 06-01-2022 Glucose [Mass/Vol] 95 mg/dL 65 - 99 mg/dL [facility] Interpretation and review of laboratory results Normal [facility] HIV Antibody (HIV1/HIV2)on 0 06-01-2022 HIV 1+2 Ab+HIV1 p24 Ag IA Ql Negative Negative [facility] Interpretation and review of laboratory results Normal [facility] This assay screens f or the presence of HIV-1, HIV-2 antibodies and for the presence of HIV-1 antigen. Test performed using Eliot CASIMIRO immunoassay system [facility] Hepatitis Panel, Acuteon HAV IgM Ql (S) Negative Negative [facility] HBV core IgM Ql (S) Negative Negative [facility] surface Ag Ql (S) Negative Negative [facility] HCV Ab Ql (S) Negative Negative [facility] Interpretation and review of laboratory results Normal [facility] Test performed using Eliot CASIMIRO immunoassay system [facility] Lactate [Moles/Vol]on 2022 Interpretation and review of laboratory results Normal [facility] Lactic Acid, Plasmaon 2022 Lactate [Moles/Vol] 1.1 mmol/L 0.6 - 2. 0 mmol/L [facility] POC Arterial Blood Gas Panel -Pulmon 06-01-2022 Alveolar-arterial oxygen Partial pressure difference 65.2 mm Hg [facility] Base excess Calc (Bld) [Moles/Vol] -1.4000 mmol/L -2.0 - 2.0 [facility] CO2 (Bld) [Partial pressure] 27.3 mm[Hg] Low [facility] HCO3 (Bld) [Moles/Vol] 20.6 mmol/L Low 22.0 - 26.0 mmol/L [facility] Hematocrit (BldA) [Volume fraction] 43.3 % 41.0 - 53.0 % [facility] Hemoglobin (Bld) [Mass/Vol] 14.1 g/dL 13.5 - 17.5 g/dL [facility] Inhaled oxygen concentration 24 % [facility] Inhaled oxygen flow rate 1 L/min [facility] Interpretation and review of laboratory results Abnormal [facility] Oxygen (Bld) [Partial pressure] 65 mm[Hg] Low [facility] pH (Bld) 7.49 [pH] High 7.35 - 7.45 [facility] Specimen source Nom (Unsp spec) Radial, right [facility] Alveolar-arterial oxygen Partial pressure difference 85.9 mm Hg [facility] Base excess Calc (Bld) [Moles/Vol] -0.1000 mmol/L -2.0 - 2.0 [facility] CO2 (Bld) [Partial pressure] 32.2 mm[Hg] Low [facility] HCO3 (Bld) [Moles/Vol] 23.0 mmol/L 22.0 - 26.0 mmol/L [facility] Hematocrit (BldA) [Volume fraction] 42.1 % 41.0 - 53.0 % [facility] Hemoglobin (Bld) [Mass/Vol] 13.7 g/dL 13.5 - 17.5 g/dL [facility] Inhaled oxygen concentration 28 % [facility] Inhaled oxygen flow rate 2 L/min [facility] Interpretation and review of laboratory results Abnormal [facility] Oxygen (Bld) [Partial pressure] 67 mm[Hg] Low [facility] pH (Bld) 7.46 [pH] High 7.35 - 7.45 [facility] Specimen source Nom (Unsp spec) Radial, left [facility] Basic metabolic 2000 panelon 05-31-2022 Anion gap [Moles/Vol] 15 mmol/L 10 - 2 0 mmol/L [facility] Calcium [Mass/Vol] 9.5 mg/dL 8.4 - 10. 2 mg/dL [facility] Chloride [Moles/Vol] 108 mmol/L 98 - 10 8 mmol/L [facility] Creatinine [Mass/Vol] 0.71 mg/dL 0.50 - 1.30 mg/dL [facility] GFR/1.73 sq M.predicted CKD-EPI (S/P/Bld) [Vol rate/Area] 122 - PINF [facility] Comment on above: Estimated GFR was ca lculated using the 2020 CKD-EPI creatinine equation. Glucose [Mass/Vol] 123 mg/dL High 65 - 99 mg/dL [facility] HCO3 [Moles/Vol] 24 mmol/L 21 - 32 mmol/L [facility] Interpretation and review of laboratory results Abnormal [facility] Potassium [Moles/Vol] 3.7 mmol/L 3.5 - 5.1 mmol/L [facility] Sodium [Moles/Vol] 143 mmol/L 135 - 145 mmol/L [facility] Urea nitrogen [Mass/Vol] 13 mg/dL 8 - 25 mg/dL [facility] Urea nitrogen/Creatinine [Mass ratio] 18.3 mg/mg 10.0 - 20.0 [facility] has implemented the eGFR calculation approach that does not have a coefficient for race that conforms to the NKF-ASN Task Force Recommendations. [facility] CBC Auto Differentialon -0 Basophils (Bld) [#/Vol] 0.03 10*3/uL [facility] Basophils/100 WBC (Bld) 0.2 % [facility] Eosinophils (Bld) [#/Vol] 0.01 10*3/uL [facility] Eosinophils/100 WBC (Bld) 0.1 % [facility] Erythrocyte distribution width (RBC) [Entitic vol] 13.2 % 11.6 - 14.8 % [facility] Hematocrit (Bld) [Volume fraction] 43.0 % 41.0 - 53.0 % [facility] Hemoglobin (Bld) [Mass/Vol] 14.4 g/dL 13.5 - 17.5 g/dL [facility] Immature granulocytes (Bld) [#/Vol] 0.07 10*3/uL [facility] Immature granulocytes/100 WBC (Bld) 0.50 % [facility] Comment on above: The IG parameter is the percentage of metamyelocytes, myelocytes and promyelocytes. An immature granulocyte count (IG) of 1% or more suggests the possibility of infection, an IG count of 3% is very likely related to an infection. Interpretation and review of laboratory results Abnormal [facility] Lymphocytes (Bld) [#/Vol] 1.21 10*3/uL [facility] Lymphocytes/100 WBC (Bld) 8.2 % [facility] MCH (RBC) [Entitic mass] 28.4 pg 26. 0 - 34.0 pg [facility] MCHC (RBC) [Mass/Vol] 33.5 g/dL 31.0 - 37.0 g/dL [facility] MCV (RBC) [Entitic vol] 84.8 fL 80.0 - 100.0 fL [facility] Monocytes (Bld) [#/Vol] 0.69 10*3/uL [facility] Monocytes/100 WBC (Bld) 4.7 % [facility] Neutrophils (Bld) [#/Vol] 12.68 10*3/uL High [facility] Neutrophils/100 WBC (Bld) 86.3 % [facility] Nucleated RBC (Bld) [#/Vol] 0.00 10*3/uL [facility] Nucleated RBC/100 WBC (Bld) [Ratio] 0.0 % [facility] Platelet mean volume (Bld) [Entitic vol] 8.8 fL Low 9.4 - 12.4 fL [facility] Platelets (Bld) [#/Vol] 367 10*3/uL [facility] RBC (Bld) [#/Vol] 5.07 10*6/uL [facility] ealth WBC (Bld) [#/Vol] 14.69 10*3/uL [facility] CT Head Or Brain Without Con traston 05-31-2022 No acute intracranial abnormality. FOLLOW-UP: Follow-up as clinically indicated. Workstation ID: [id number] EXAMINATION: CT HEAD OR BRAIN WITHOUT CONTRAST [...] orbits and the paranasal sinuses are normal. Peer39 Said, Carlos Cox MD - 05/31/2022 EXAMINATION: [...] Follow-up as clinically indicated. Workstation ID: [id number] [facility] CT Head Or Brain Without Con trastOrdered By: Carlos Mcelroy on 05-31-2022 [facility] Work Phone: CTA PULM ART AND [...] TueMay 31, 2022 12:29:17 AM EST Normal [facility] Comment on above: Order Comment: Injur [...] reflect mild fecal impaction. Workstation ID: [id number] [facility] EXAMINATION: CTA PULMONARY ARTERIES AND CT ABDOMEN [...] abnormality or suspicious bony lesion is seen. [facility] Mario Alvarez MD - 05/31/2022 EXAMINATION: CTA [...] reflect mild fecal impaction. Workstation ID: [id number] [facility] CTA Pulm Art and CT Abd Pelv is with IV contrastOrdered By: Mario Alvarez on 05-31-2022 [facility] Work Phone: EKGon 05-31-2022 [facility] Magnesiumon 05-31-2022 Magnesium [Mass/Vol] 2.0 mg/dL 1.6 - 2 .4 mg/dL [facility] Magnesium [Mass/Vol]on 05-31 [facility] No Panel Informationon 05-31 Interpretation and review of laboratory results Normal [facility] Interpretation and review of laboratory results Normal [facility] Phosphoruson 05-31-2022 Phosphate [Mass/Vol] 4.3 mg/dL 2.7 - 4 .5 mg/dL [facility] T4, Freeon 05-31-2022 Free T4 [Mass/Vol] 0.9 ng/dL 0.7 - 1.7 ng/dL [facility] TSH DL <= 0.005 mIU/L Qnon 0 05-31-2022 TSH Qn 0.47 m[IU]/L [facility] UrinalysisOrdered By: Shonda fairchild on 05-31-2022 Bacteria Auto Ql (U) None Seen None Se en /hpf [facility] Bilirubin Ql (U) Negative Negative [facility] th Clarity Refractometry automated (U) Clear Clear [facility] Color (U) Yellow Colorless, Yellow [facility] Crystals.amorphous Computer assisted (U) [#/Area] Few Abnormal None Seen, Rare /hpf [facility] Epithelial cells.squamous Auto (Urine sed) [#/Area] [facility] Glucose Auto test strip (U) [Mass/Vol] Negative Negative mg/dL [facility] Hemoglobin Auto test strip Ql (U) Negative Negative [facility] Interpretation and review of laboratory results Abnormal [facility] Ketones (U) [Mass/Vol] mg/dL Abnormal Negat tracie mg/dL [facility] Leukocyte esterase Auto test strip Ql (U) Negative Negative [facility] Mucus Auto (Urine sed) [#/Area] Rare None Seen, Rare /lpf [facility] Nitrite Auto test strip Ql (U) Negative Negative [facility] pH (U) 6.5 [pH] 5.0 - 7.0 [facility] Protein (U) [Mass/Vol] 30 mg/dL Abnormal Negative [facility] Comment on above: False positive resul ts may occur in urines with large amounts of hemoglobin, pH greater than 8.0, contrast medium, or disinfectants including ammonium compounds. RBC Auto (Urine sed) [#/Area] 3 [facility] Specific gravity (U) [Rel density] 1.045 High 1.005 - 1.025 [facility] Urobilinogen (U) [Mass/Vol] 2.0 mg/dL Abnormal NINF - 2.0 mg/dL [facility] WBC Auto (Urine sed) [#/Area] 1 [facility] Microscopic examinat ion is performed on all urinalysis samples and only positive findings are reported. The test for blood on the chemical analytic portion of urinalysis may also be positive due to hemoglobinuria and myoglobinuria and if red blood cells are present they are quantified by microscopic examination. [facility] Urine Drug Screenon 05-31-19 23 Amphetamines Ql (U) Positive Abnormal None Detected [facility] Comment on above: Urine Amphetamine Cu toff: < 1000 ng/mL = None Detected Barbiturates Screen Ql (U) Not detected None Detected [facility] Comment on above: Urine Barbiturates C utoff: < 200 ng/mL = None Detected Benzodiazepines Ql (U) Not detected None Detected [facility] Comment on above: Urine Benzodiazepine Cutoff: < 200 ng/mL = None Detected Buprenorphine Ql (U) Not detected None Detected [facility] Comment on above: Urine Buprenorphine Cutoff: < 5 ng/mL = None Detected Cannabinoids Screen Ql (U) Positive Abnormal None Detected [facility] Comment on above: Urine Cannabinoids C utoff: < 50 ng/mL = None Detected Cocaine Ql (U) Not detected None Detected [facility] Comment on above: Urine Cocaine Cutoff : < 300 ng/mL = None Detected fentaNYL+Norfentanyl Screen Ql (U) Positive Abnormal None Detected [facility] Comment on above: Urine Fentanyl Cutof f: < 1 ng/mL = None Detected Interpretation and review of laboratory results Abnormal [facility] Methadone Screen Ql (U) Not detected None Detected [facility] Comment on above: Urine Methadone Cuto ff: < 300 ng/mL = None Detected Opiates Screen Ql (U) Not detected None Detected [facility] Comment on above: Urine Opiates Cutoff : < 300 ng/mL = None Detected oxyCODONE Ql (U) Not detected None Detected [facility] Comment on above: Urine Oxycodone Cuto ff: < 100 ng/mL = None Detected Specimen will be kep t for 1 week, if the sample is adequate. Confirmation testing can be initiated by calling the lab within 1 week. Screen results should be used for treatment purposes only. [facility] Basic metabolic 2000 panelon 05-30-2022 Anion gap [Moles/Vol] 15 mmol/L 10 - 2 0 mmol/L [facility] Calcium [Mass/Vol] 10.2 mg/dL 8.4 - 10. 2 mg/dL [facility] Chloride [Moles/Vol] 103 mmol/L 98 - 10 8 mmol/L [facility] Creatinine [Mass/Vol] 0.85 mg/dL 0.50 - 1.30 mg/dL [facility] GFR/1.73 sq M.predicted CKD-EPI (S/P/Bld) [Vol rate/Area] 115 - PINF [facility] Comment on above: Estimated GFR was ca lculated using the 2020 CKD-EPI creatinine equation. Glucose [Mass/Vol] 126 mg/dL High 65 - 99 mg/dL [facility] HCO3 [Moles/Vol] 24 mmol/L 21 - 32 mmol/L [facility] Interpretation and review of laboratory results Abnormal [facility] Potassium [Moles/Vol] 3.8 mmol/L 3.5 - 5.1 mmol/L [facility] Sodium [Moles/Vol] 138 mmol/L 135 - 145 mmol/L [facility] Urea nitrogen [Mass/Vol] 13 mg/dL 8 - 25 mg/dL [facility] Urea nitrogen/Creatinine [Mass ratio] 15.3 mg/mg 10.0 - 20.0 [facility] has implemented the eGFR calculation approach that does not have a coefficient for race that conforms to the NKF-ASN Task Force Recommendations. [facility] CBC Auto Differentialon Basophils (Bld) [#/Vol] 0.02 10*3/uL [facility] Basophils/100 WBC (Bld) 0.2 % [facility] Eosinophils (Bld) [#/Vol] 0.00 10*3/uL [facility] Eosinophils/100 WBC (Bld) 0.0 % [facility] Erythrocyte distribution width (RBC) [Entitic vol] 13.0 % 11.6 - 14.8 % [facility] Hematocrit (Bld) [Volume fraction] 47.7 % 41.0 - 53.0 % [facility] Hemoglobin (Bld) [Mass/Vol] 16.2 g/dL 13.5 - 17.5 g/dL [facility] Immature granulocytes (Bld) [#/Vol] 0.05 10*3/uL [facility] Immature granulocytes/100 WBC (Bld) 0.50 % [facility] Comment on above: The IG parameter is the percentage of metamyelocytes, myelocytes and promyelocytes. An immature granulocyte count (IG) of 1% or more suggests the possibility of infection, an IG count of 3% is very likely related to an infection. Interpretation and review of laboratory results Abnormal [facility] Lymphocytes (Bld) [#/Vol] 0.97 10*3/uL [facility] Lymphocytes/100 WBC (Bld) 9.1 % [facility] MCH (RBC) [Entitic mass] 28.6 pg 26. 0 - 34.0 pg [facility] MCHC (RBC) [Mass/Vol] 34.0 g/dL 31.0 - 37.0 g/dL [facility] MCV (RBC) [Entitic vol] 84.3 fL 80.0 - 100.0 fL [facility] Monocytes (Bld) [#/Vol] 0.32 10*3/uL [facility] Monocytes/100 WBC (Bld) 3.0 % [facility] Neutrophils (Bld) [#/Vol] 9.33 10*3/uL High [facility] Neutrophils/100 WBC (Bld) 87.2 % [facility] Nucleated RBC (Bld) [#/Vol] 0.00 10*3/uL [facility] Nucleated RBC/100 WBC (Bld) [Ratio] 0.0 % [facility] Platelet mean volume (Bld) [Entitic vol] 8.6 fL Low 9.4 - 12.4 fL [facility] Platelets (Bld) [#/Vol] 383 10*3/uL [facility] RBC (Bld) [#/Vol] 5.66 10*6/uL [facility] WBC (Bld) [#/Vol] 10.69 10*3/uL [facility] COVID-19/INFLUENZA A,B MOLEC ULARon 05-30-2022 SARS-CoV-2 (COVID-19) Ab IA Ql SARS-COV-2 (YANNA): Not Detected INFLUENZA A (YANNA): Not Detected INFLUENZA B (YANNA): Not Detected Normal Not Detected [facility] Comment on above: Order Comment: This [...] at the following links: For Healthcare Providers: https://www.fda.gov/media/510379/download For Patients: https://www.fda.gov/media/036575/download Performed By: #### L [id number] #### [facility] [address] [address] Lj Liz M[address]D. [id number] CT HEAD OR BRAIN WITHOUT CON TRASTon [...] TueMay 31, 2022 12:10:06 AM EST Normal [facility] Comment on above: Order Comment: Injur y/Trauma or Illness?:Injury/Trauma How long have you had these symptoms (acute/chronic)?:Acute Reason for exam?:OD vs head injury, pt poor historian Type of Exam?:Initial Mechanism of injury?:OD vs head injury, pt poor historian CT Head Or Brain Without Con traston 05-30-2022 Radiology Study observation (narrative) [facility] CTA Pulm Art and CT Abd Pelv is with IV contraston 05-30-2022 Radiology Study observation (narrative) [facility] Critical Careon 05-30-2022 Charlie Johnson MD 023 12:45 AM Critical Care Performed by: Charlie Johnson MD Authorized by: Charlie Johnson MD Total critical care time: 50 minutes Critical care time was exclusive of separately billable procedures and treating other patients. Critical care was necessary to treat or prevent imminent or life-threatening deterioration of the following conditions: respiratory failure, toxidrome and SCAFFOLD SETTER failure or compromise. Critical care was time [...] patient's condition and review of old charts. [facility] ECG 12 Leadon 05-30-2022 Interpretation and review of laboratory results Abnormal [facility] Charlie Johnson MD 023 12:45 AM ECG 12 Lead Date/Time: 05/30/2022 11:02 PM Performed by: hCarlie Johnson MD Authorized by: Charlie Johnson MD Interpreted by ED attending physician Rhythm: sinus rhythm and sinus tachycardia BPM: 115 ST Segments: ST segments normal Clinical impression: abnormal ECG and sinus tachycardia [facility] EKG 12-leadon 05-30-2022 Atrial Rate 115 BPM [facility] P [place] 82 degrees [facility] P-R Interval 152 ms [facility] Q-T Interval 386 ms [facility] QRS Duration 74 ms [facility] QTC Calculation (Bezet) 533 ms [facility] R [place] 45 degrees [facility] T [place] 61 degrees [facility] Ventricular Rate 115 BPM [facility] Sinus tachycardia az th Fusion complexes Left atrial enlargement Possible Inferior infarct , age undetermined Possible Anterior infarct , age undetermined Marked ST abnormality, possible septal subendocardial injury Prolonged QT Abnormal ECG ECG Cart Interpretation see physician note for interpretation. Confirmed by Mary Magaña ([id number]) on 05/30/2022 9:58:54 PM MUSE [facility] Hepatic function 2000 panelo n 05-30-2022 Albumin [Mass/Vol] 4.0 g/dL 3.2 - 5.2 g/dL [facility] ALP [Catalytic activity/Vol] 136 U/L 40 - 140 U/L [facility] ALT [Catalytic activity/Vol] 31 U/L 14 - 65 U/L [facility] AST [Catalytic activity/Vol] 24 U/L 0 - 45 U/L [facility] Bilirubin [Mass/Vol] 0.6 mg/dL 0.0 - 1 .3 mg/dL [facility] Bilirubin.conjugated [Mass/Vol] 0.2 mg/dL 0.0 - 0.4 mg/dL [facility] Interpretation and review of laboratory results Abnormal [facility] Protein [Mass/Vol] 9.0 g/dL High 6.0 - 8.0 g/dL [facility] Influenza virus A and B RNA and SARS-CoV-2 (COVID-19) N gene panel KATLYN+probe (Resp)Ordered By: Lj Ronquillo on 05-30-2022 FLUAV RNA KATLYN+probe Ql (Unsp spec) Not detected Not Detected [facility] FLUBV RNA KATLYN+probe Ql (Unsp spec) Not detected Not Detected [facility] [facility] Interpretation and review of laboratory results Normal [facility] SARS-CoV-2 (COVID-19) RNA KATLYN+probe Ql (Resp) Not detected Not Detected [facility] This test was perfor med under [...] the following links: For Healthcare Providers: https://www.fda.gov/med ia/323300/download For Patients: https://www.fda.gov/med ia/523056/download [facility] Lipaseon 05-30-2022 Lipase [Catalytic activity/Vol] 76 U/L 73 - 393 U/L [facility] Lipase [Catalytic activity/V ol]on 05-30-2022 Interpretation and review of laboratory results Normal [facility] No Panel Informationon 05-30 [facility] Troponinon 05-30-2022 Troponin I ng/L NINF - 59 ng/L [facility] Troponin I Interpretation Normal [facility] XR CHEST PA/APon 05-30-2022 XR CHEST [...] effusion. Workstation ID: [id number] Dictated by: ASPEN MENDOZA on [place] May 30, 2022 10:00:58 PM EST Transcribed by: ASPEN MENDOZA on [place] May 30, 2022 10:00:58 PM EST Finalized by: ASPEN MENDOZA on [place] May 30, 2022 10:00:58 PM EST Normal [facility] Comment on above: Order Comment: Injur [...] focal consolidation or effusion. Workstation ID: [id number] [facility] Radiology Study observation (narrative) [facility] XR Chest 1 ViewOrdered By: Darek Mendoza on 05-30-2022 [facility] Work Phone: INFLUENZA A AND B, PCRon FLUAV and FLUBV Ag IF Nom (Unsp spec) Negative NEGATIVE [facility] FLUBV Ag IA Ql (Unsp spec) Negative NEGATIVE [facility] Comment on above: TESTING PERFORMED BY KATLYN [facility] NOVEL CORONAVIRUSon 05-13-20 22 NARRATIVE This test was perfor med using isothermal KATLYN and has been approved as Emergency Use Authorization (EUA) for the qualitative detection deJJCJ-JiJ-7 nucleic acid. Normal [facility] Comment on above: Performed By: #### C OVID #### Testing performed at [address] [address] SARS-CoV-2 (COVID-19) RNA KATLYN+probe Ql (Unsp spec) Not detected Normal NOT DETECTED [facility] Comment on above: Result Comment: Nega tive [...] #### C OVID #### Testing performed at [facility] [address] [place] [address] NOVEL CORONAVIRUS LAB 1 - NA SOPHARYNGEALon 05-13-2022 NARRATIVE -1 This test was perfor med using isothermal KATLYN and has been approved as Emergency Use Authorization (EUA) for the qualitative detection psVAWQ-FmG-6 nucleic acid. [facility] SARS-CoV-2 (COVID-19) RNA KATLYN+probe Ql (Unsp spec) Not detected NOT DETECTED [facility] Comment on above: Negative results do [...] patient is critically ill or clinically deteriorating. [facility] Portable XR Chest Views APon 05-13-2022 [...] abnormality. IMPRESSION IMPRESSION: No acute cardiopulmonary abnormality. [facility] Radiology Study observation (narrative) [facility] Portable XR Chest Views APOr dered By: Jeremy Wilkinson on 05-13-2022 [facility] Work Phone: RAPID FLU Aon 05-13-2022 INFLUENZA A Negative Normal NEGATIVE [facility] Comment on above: Performed By: #### R FLUAB #### Testing performed at [address] [address] INFLUENZA B Negative Normal NEGATIVE [facility] Comment on above: Result Comment: TEST ING PERFORMED BY KATLYN Performed By: #### R FLUAB #### Testing performed at [address] [address] XR CHEST AP PORTABLEon 05-13 XR CHEST AP PORTABLE EXAMINATION: XR KANG ST AP PORTABLE HISTORY: Shortness of breath COMPARISON: None. TECHNIQUE: Portable chest FINDINGS: The lung parenchyma is free of consolidation or infiltrate. No pneumothorax or pleural effusion. The cardiac, mediastinal and hilar contours are normal. The visualized osseous structures exhibit no gross abnormality. IMPRESSION: No acute cardiopulmonary abnormality. Normal [facility] Basic metabolic 2000 panelon 05-09-2022 Anion gap [Moles/Vol] 12 mmol/L Normal 9-18 [facility] Comment on above: Order Comment: Specgraciela dickson Type: BLOOD SPECIMENOrdering Facility: [facility] Address: [address] [address] Performed By: #### 2 4321-2 ####[facility] LABORATORYCLIA [id number] [address] [id number] [place] Calcium [Mass/Vol] 9.0 mg/dL Normal 8.5-10.2 [facility] Comment on above: Order Comment: Nicolás dickson Type: BLOOD SPECIMENOrdering Facility: [facility] Address: [address] [address] Performed By: #### 2 4321-2 ####[facility]ORATORYCLIA [id number] [address] Chloride [Moles/Vol] 105 mmol/L Normal 97-105 [facility] Comment on above: Order Comment: Speci men Type: BLOOD SPECIMENOrdering Facility: [facility] Address: [address] [address] Performed By: #### 2 4321-2 ####[facility] LABORATORYCLIA [id number] [place] [id number] [facility] CO2 [Moles/Vol] 23 mmol/L Normal 22-30 [facility] Comment on above: Order Comment: Speci men Type: BLOOD SPECIMENOrdering Facility: [facility] Address: [address] [address] Performed By: #### 2 4321-2 ####[facility] LABORATORYCLIA [id number] [address] Creatinine [Mass/Vol] 0.82 mg/dL Normal 0.73-1.22 [facility] Comment on above: Order Comment: Speci men Type: BLOOD SPECIMENOrdering Facility: [facility] Address: [address] [address] Performed By: #### 2 4321-2 ####[facility] LABORATORYCLIA [id number] [address] ESTIMATED GLOMERULAR FILTRATION RATE 117 mL/min/1.73m??? Normal >=60 [facility] Comment on above: Order Comment: Speci men Type: BLOOD SPECIMENOrdering Facility: [facility] Address: [address] [place] [address] Result Comment: Jaymie mated Glomerular Filtration Rate [...] Performed By: #### 2 4321-2 ####[facility] LABORATORYCLIA [id number] [place] [id number] [place] Glucose [Mass/Vol] 111 mg/dL High 74-99 [facility] Comment on above: Order Comment: Speci men Type: BLOOD SPECIMENOrdering Facility: [facility] Address: [address] [address] Result Comment: The [place] Diabetes Association (ADA) provides guidance for cutoff [...] Standards of Medical Care in Diabetes 2016, [place] [employer]. Diabetes Care. 2016.39(Suppl 1). Performed By: #### 2 4321-2 ####[facility] LABORATORYCLIA [id number] [place] [address] [place] Potassium [Moles/Vol] 3.2 mmol/L Low 3.7-5.1 [facility] Comment on above: Order Comment: Nicolás men Type: BLOOD SPECIMENOrdering Facility: [facility] Address: [address] [place] [address] Performed By: #### 2 4321-2 ####[facility] LABORATORYCLIA [id number] [place] [address] [place] Sodium [Moles/Vol] 140 mmol/L Normal 136-144 [facility] Comment on above: Order Comment: Speci men Type: BLOOD SPECIMENOrdering Facility: [facility] Address: [address] [address] Performed By: #### 2 4321-2 ####[facility] LABORATORYCLIA [id number] [place] [address] [place] Urea nitrogen [Mass/Vol] 8 mg/dL Low 9-24 [facility] Comment on above: Order Comment: Speci men Type: BLOOD SPECIMENOrdering Facility: [facility] Address: [address] [place] [address] Performed By: #### 2 4321-2 ####[facility] LABORATORYCLIA [id number] [address] [id number] [place] CASE MANAGEMon 05-09-2022 CASE MANAGEM HNO ID: [id number] Author: Radha Alex RN Service: ? Author [...] Determined Discharge home and no skilled care. [facility] discharged pt and not able to take back. Pt is aware if he wants to return then he will need to call their admissions. SIGNATURE: Radha Alex RN PATIENT NAME: Mayito Forbes DATE: May 09, 2022 TIME: 1:52 PM PAGER/CONTACT #: [phone] Normal [facility] CBC panel Auto (Bld)on 05-09 Erythrocyte distribution width (RBC) [Ratio] 13.5 % Normal 11.5-15.0 [facility] Comment on above: Order Comment: Speci men Type: BLOOD SPECIMENOrdering Facility: [facility] Address: [address] [place] [address] Performed By: #### 5 8410-2 ####[facility] LABORATORYCLIA [id number] [place] [id number] [facility] [place] Hematocrit (Bld) [Volume fraction] 41.2 % Normal 39.0-51.0 [facility] Comment on above: Order Comment: Speci men Type: BLOOD SPECIMENOrdering Facility: [facility] Address: [address] [place] [address] Performed By: #### 5 8410-2 ####[facility] LABORATORYCLIA [id number] [place] [id number] [place] Hemoglobin (Bld) [Mass/Vol] 13.9 g/dL Normal 13.0-17.0 [facility] Comment on above: Order Comment: Speci men Type: BLOOD SPECIMENOrdering Facility: [facility] Address: [address] [place] [address] Performed By: #### 5 8410-2 ####[facility]ORATORYCLIA [id number] [address] [place] MCH (RBC) [Entitic mass] 28.4 pg Normal 26.0-34.0 [facility] Comment on above: Order Comment: Speci men Type: BLOOD SPECIMENOrdering Facility: [facility] Address: [address] [place] [address] Performed By: #### 5 8410-2 ####[facility]ORATORYCLIA [id number] [address] [place] MCHC (RBC) [Mass/Vol] 33.7 g/dL Normal 30.5-36.0 [facility] Comment on above: Order Comment: Speci men Type: BLOOD SPECIMENOrdering Facility: [facility] Address: [address] [place] [address] Performed By: #### 5 8410-2 ####[facility] LABORATORYCLIA [id number] [address] [place] MCV (RBC) [Entitic vol] 84.3 fL Normal 80.0-100.0 [facility] Comment on above: Order Comment: Speci men Type: BLOOD SPECIMENOrdering Facility: [facility] Address: [address] [place] [address] Performed By: #### 5 8410-2 ####[facility] LABORATORYCLIA [id number] [address] [place] Nucleated RBC (Bld) [#/Vol] 10*3/uL Normal <0.01 [facility] Comment on above: Order Comment: Speci men Type: BLOOD SPECIMENOrdering Facility: [facility] Address: [address] [address] Performed By: #### 5 8410-2 ####[facility] LABORATORYCLIA [id number] [place] [id number] [facility] [place] Platelet mean volume (Bld) [Entitic vol] 8.5 fL Low 9.0-12.7 [facility] Comment on above: Order Comment: Speci men Type: BLOOD SPECIMENOrdering Facility: [facility] Address: [address] [address] Performed By: #### 5 8410-2 ####[facility] LABORATORYCLIA [id number] [place] [address] [place] Platelets (Bld) [#/Vol] 309 10*3/uL Normal 150-400 [facility] Comment on above: Order Comment: Speci men Type: BLOOD SPECIMENOrdering Facility: [facility] Address: [address] [place] [address] Performed By: #### 5 8410-2 ####[facility] LABORATORYCLIA [id number] [place] [address] [place] RBC (Bld) [#/Vol] 4.89 10*6/uL Normal 4.20-6.00 [facility] Comment on above: Order Comment: Speci men Type: BLOOD SPECIMENOrdering Facility: [facility] Address: [address] [address] Performed By: #### 5 8410-2 ####[facility] LABORATORYCLIA [id number] [place] [address] [place] WBC (Bld) [#/Vol] 16.35 10*3/uL High 3.70-11.00 [facility] Comment on above: Order Comment: Speci men Type: BLOOD SPECIMENOrdering Facility: [facility] Address: [address] [place] [address] Performed By: #### 5 8410-2 ####[facility] LABORATORYCLIA [id number] [place] [address] [facility] CNDSon 05-09-2022 CNDS HNO ID: [id number] Author: Suellen Armstrong APRN.FORESTRY BIOLOGY SPECIALIST Service: General Internal Medicine Author Type: Nurse [...] psych and deemed stable to return to [facility] Transitions of Care Critical Issues: Plan is for patient to return to [facility] to complete recovery program LABS AND PROCEDURES [...] Hospital: FOLLOW-UP APPOINTMENTS ALREADY SCHEDULED WITH A [facility] PROVIDER No future appointments. DISCHARGE MEDICATION: Current [...] DATE: May 09, 2022 TIME: 12:52 PM [facility] CONSULTon 05-09-2022 CONSULT HNO ID: [id number] Author: Néstor Gagnon MD Service: Psychiatry Author Type: Physician Type: Consults Filed: 05/10/2022 10:08 AM Note Text: CL NEW - PSYCHIATRY INITIAL CONSULTATION NOTE SERVICE DATE: May 09, 2022 SERVICE TIME: 12:07 PM CONSULTING SERVICE : Psychiatry, requested by REASON FOR CONSULTATION: Substance abuse. IDENTIFYING INFO: Mr. Forbes is a 36 year old male from [place], [place]. HISTORY OF PRESENT ILLNESS : [address] [facility] [facility] for N/V. COLLATERAL INFORMATION: Epic and patient [...] Diagnoses: Substance Abuse; MDD Current Psychiatrist: At [facility] for detox now. Current Therapist: None Psychiatric [...] Insight: Recognized the (more content not included)... [facility] NURSING PROGon 05-09-2022 NURSING PROG HNO ID: [id number] Author: Suzy Larry RN Service: Nursing Author [...] no bed is available at this time. [facility] NURSING PROG HNO ID: [id number] Author: Fahad Payne RN Service: ? Author [...] flagged for sepsis. No new orders. Normal [facility] Basic metabolic 2000 panelon 05-08-2022 Anion gap [Moles/Vol] 14 mmol/L Normal 9-18 [facility] Comment on above: Order Comment: Speci men Type: BLOOD SPECIMEN [facility] Facility: [facility] Address: [address] [address] Performed By: #### 2 4320-06, #### [facility] CLIA [id number] [place] [address] [place] Calcium [Mass/Vol] 9.1 mg/dL Normal 8.5-10.2 [facility] Comment on above: Order Comment: Speci men Type: BLOOD SPECIMEN Ordering Facility: [facility] Address: [address] [address] Performed By: #### 2 4320-06, #### [facility] CLIA [id number] [place] [address] [place] Chloride [Moles/Vol] 105 mmol/L Normal 97-105 [facility] Comment on above: Order Comment: Speci men Type: BLOOD SPECIMEN [facility]ing Facility: [facility] Address: [address] [address] Performed By: #### 2 4320-06, #### [facility] CLIA [id number] [place] [address] [place] CO2 [Moles/Vol] 20 mmol/L Low 22-30 [facility] Comment on above: Order Comment: Speci men Type: BLOOD SPECIMEN Ordering Facility: [facility] Address: [address] [address] Performed By: #### 2 4320-06, #### [facility] CLIA [id number] [place] [address] [place] Creatinine [Mass/Vol] 0.69 mg/dL Low 0.73-1.22 [facility] Comment on above: Order Comment: Nicolás dickson Type: BLOOD SPECIMEN Ordering Facility: [facility] Address: [address] [address] Performed By: #### 2 432-2, #### [facility] CLIA [id number] [place] [address] [place] ESTIMATED GLOMERULAR FILTRATION RATE 123 mL/min/1.73m??? Normal >=60 [facility] Comment on above: Order Comment: Nicolás dickson Type: BLOOD SPECIMEN Ordering Facility: [facility] Address: [address] [place] [address] Result Comment: Jaymie mated Glomerular Filtration Rate [...] GFR. Performed By: #### 2 432-, #### [facility] CLIA [id number] [place] [address] [place] Glucose [Mass/Vol] 124 mg/dL High 74-99 [facility] Comment on above: Order Comment: Nicolás dickson Type: BLOOD SPECIMEN Ordering Facility: [facility] Address: [address] [address] Result Comment: The [place] Diabetes Association (ADA) provides guidance for cutoff [...] Standards of Medical Care in Diabetes 2016, [place] [employer] Association. Diabetes Care. 2016.39(Suppl 1). Performed By: #### 2 4320-2, #### [facility] CLIA [id number] [place] [address] [place] Potassium [Moles/Vol] 3.5 mmol/L Low 3.7-5.1 [facility] Comment on above: Order Comment: Speci men Type: BLOOD SPECIMEN Ordering Facility: [facility] Address: [address] [place] [address] Performed By: #### 2 4320-06, #### [facility] CLIA [id number] [place] Sodium [Moles/Vol] 139 mmol/L Normal 136-144 [facility] Comment on above: Order Comment: Nicolás dickson Type: BLOOD SPECIMEN Ordering Facility: [facility] Address: [address] [address] Performed By: #### 2 4320-06, #### [facility] CLIA [id number] [place] Urea nitrogen [Mass/Vol] 7 mg/dL Low 9-24 [facility] Comment on above: Order Comment: Nicolás dickson Type: BLOOD SPECIMEN Ordering Facility: [facility] Address: [address] [address] Performed By: #### 2 4320-06, #### [facility] CLIA [id number] [place] [address] [place] CASE MGT INIT Yefri 2021 CASE MGT INIT ASSES HNO ID: [id number] Author: Radha Alex RN Service: ? 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 FREEDOM OF CHOICE EXPLAINED: [facility] Choice Given: No Reason Not Given: No placements necessary Are you interested in bedside delivery of your medications? No ASSESSMENT AND PLAN: Met with pt. Pt is independent at home with GF in [place]. Pt is currently staying at [facility] for opiate abuse. Anticipate return to [facility] when cleared. Admitted obs for N/V. TCC/SW to follow for discharge needs. SIGNATURE: Radha Alex RN PATIENT NAME: Mayito Forbes DATE: May 08, 2022 TIME: 9:03 AM CONTACT #: [phone] Normal [facility] CBC panel Auto (Bld)on 05-08 Erythrocyte distribution width (RBC) [Ratio] 13.7 % Normal 11.5-15.0 [facility] Comment on above: Order Comment: Speci men Type: BLOOD SPECIMENOrdering Facility: [facility] Address: [address] [address] Performed By: #### 5 8410-2 ####[facility] LABORATORYCLIA [id number] [address] Hematocrit (Bld) [Volume fraction] 41.7 % Normal 39.0-51.0 [facility] Comment on above: Order Comment: Speci men Type: BLOOD SPECIMENOrdering Facility: [facility] Address: [address] [address] Performed By: #### 5 8410-2 ####[facility] LABORATORYCLIA [id number] [address] [place] Hemoglobin (Bld) [Mass/Vol] 14.0 g/dL Normal 13.0-17.0 [facility] Comment on above: Order Comment: Speci men Type: BLOOD SPECIMENOrdering Facility: [facility] Address: [address] [place] [address] Performed By: #### 5 8410-2 ####[facility]ORATORYCLIA [id number] [address] [place] MCH (RBC) [Entitic mass] 28.4 pg Normal 26.0-34.0 [facility] Comment on above: Order Comment: Speci men Type: BLOOD SPECIMENOrdering Facility: [facility] Address: [address] [address] Performed By: #### 5 8410-2 ####[facility] LABORATORYCLIA [id number] [place] [address] [place] MCHC (RBC) [Mass/Vol] 33.6 g/dL Normal 30.5-36.0 [facility] Comment on above: Order Comment: Speci men Type: BLOOD SPECIMENOrdering Facility: [facility] Address: [address] [place] [address] Performed By: #### 5 8410-2 ####[facility] LABORATORYCLIA [id number] [place] [address] [place] MCV (RBC) [Entitic vol] 84.6 fL Normal 80.0-100.0 [facility] Comment on above: Order Comment: Speci men Type: BLOOD SPECIMENOrdering Facility: [facility] Address: [address] [place] [address] Performed By: #### 5 8410-2 ####[facility] LABORATORYCLIA [id number] [place] [address] [place] Nucleated RBC (Bld) [#/Vol] 10*3/uL Normal <0.01 [facility] Comment on above: Order Comment: Speci men Type: BLOOD SPECIMENOrdering Facility: [facility] Address: [address] [place] [address] Performed By: #### 5 8410-2 ####[facility] LABORATORYCLIA [id number] [address] [place] Platelet mean volume (Bld) [Entitic vol] 10.0 fL Normal 9.0-12.7 [facility] Comment on above: Order Comment: Speci men Type: BLOOD SPECIMENOrdering Facility: [facility] Address: [address] [address] Performed By: #### 5 8410-2 ####[facility] LABORATORYCLIA [id number] [place] [address] [place] Platelets (Bld) [#/Vol] 232 10*3/uL Normal 150-400 [facility] Comment on above: Order Comment: Speci men Type: BLOOD SPECIMENOrdering Facility: [facility] Address: [address] [place] [address] Performed By: #### 5 8410-2 ####[facility] LABORATORYCLIA [id number] [place] [id number] [place] RBC (Bld) [#/Vol] 4.93 10*6/uL Normal 4.20-6.00 [facility] Comment on above: Order Comment: Speci men Type: BLOOD SPECIMENOrdering Facility: [facility] Address: [address] [address] Performed By: #### 5 8410-2 ####[facility] LABORATORYCLIA [id number] [place] [id number] [place] [facility] WBC (Bld) [#/Vol] 12.13 10*3/uL High 3.70-11.00 [facility] Comment on above: Order Comment: Speci men Type: BLOOD SPECIMENOrdering Facility: [facility] Address: [address] [place] [place] [address] Performed By: #### 5 8410-2 ####[facility] LABORATORYCLIA [id number] [address] OF [facility] HISTORY PHYSICALon HISTORY PHYSICAL HNO ID: [id number] Author: Suellen Armstrong APRN.FORESTRY BIOLOGY SPECIALIST Service: General Internal Medicine Author Type: Nurse [...] vomiting and abdominal pain. [facility]fran [facility] with no relief. Has had multiple episodes of nonbloody, nonbilious emesis. Liver func WNL, labs grossly normal Patient still very nauseous. C/o withdrawal s/s. [facility] patient. Per patient [...] prn zofran Heroin abuse - [facility] Medication and Non-Pharmacologic VTE Prophylaxis/Anticoagula nts 05/08/22 1030 activity - mobilize patient ([place]) 05/08/22 0100 activity - mobilize patient ([place]) VTE Prophylaxis: VTE prophylaxis appropriate SIGNATURE: Suellen Armstrong APRN.CNP PATIENT NAME: Mayito Forbes DATE: May 08, 2022 TIME: 10:24 AM Normal [facility] Magnesium [Mass/Vol] 1.6 mg/dL Low 1.7-2.3 [facility] Comment on above: Order Comment: Speci men Type: BLOOD SPECIMEN Ordering Facility: [facility] Address: [address] [place] [address] Performed By: #### 2 4321-2, 80346-8 #### [facility] CLIA [id number] [place] [address] [place] SARS-CoV-2 RNA Resp Ql KATLYN+p robeon 05-08-2022 SARS-CoV-2 (COVID-19) RNA KATLYN+probe Ql (Resp) COVID 19 RESULT: SARS-CoV-2 (Agent of COVID-19) Not Detected by RT-PCR or equivalent method. This test has been authorized by FDA under an Emergency Use Authorization (EUA). casimiro SARS-CoV-2 AND Influenza A/B Nucleic Acid Test for use on the casimiro Yanna System*_[employer]EUA This test has been authorized by the FDA under an Emergency Use Authorization (EUA). Normal [facility] Comment on above: Performed By: #### 9 4500-6 ####[facility] LABORATORYCLIA [id number] [place] [address] [place] CBC W Auto Differential pane l (Bld)on 05-07-2022 Basophils (Bld) [#/Vol] 10*3/uL Normal <0.11 [facility] Comment on above: Order Comment: Speci men Type: BLOOD SPECIMENOrdering Facility: [facility] Address: [address] [place] [address] Performed By: #### 5 7021-8 ####[facility]ORYCLIA [id number] [place] [address] [place] Basophils/100 WBC (Bld) 0.2 % Normal [facility] Comment on above: Order Comment: Speci men Type: BLOOD SPECIMENOrdering Facility: [facility] Address: [address] [address] Performed By: #### 5 7021-8 ####[facility]ORYCLIA [id number] [place] [address] [place] Differential cell count method Nom (Bld) Auto Normal [facility] Comment on above: Order Comment: Speci men Type: BLOOD SPECIMENOrdering Facility: [facility] Address: [address] [place] [address] Performed By: #### 5 7021-8 ####[facility]ORYCLIA [id number] [place] [address] [place] Eosinophils (Bld) [#/Vol] 10*3/uL Normal <0.46 [facility] Comment on above: Order Comment: Speci men Type: BLOOD SPECIMENOrdering Facility: [facility] Address: [address] [place] [address] Performed By: #### 5 7021-8 ####[facility]ORYCLIA [id number] [address] [place] Eosinophils/100 WBC (Bld) 0.2 % Normal [facility] Comment on above: Order Comment: Speci men Type: BLOOD SPECIMENOrdering Facility: [facility] Address: [address] [address] Performed By: #### 5 7021-8 ####[facility]ORYCLIA [id number] [place] [address] [place] Erythrocyte distribution width (RBC) [Ratio] 13.4 % Normal 11.5-15.0 [facility] Comment on above: Order Comment: Speci men Type: BLOOD SPECIMENOrdering Facility: [facility] Address: [address] [place] [address] Performed By: #### 5 7021-8 ####[facility]ORYCLIA [id number] [place] [address] [place] Hematocrit (Bld) [Volume fraction] 45.2 % Normal 39.0-51.0 [facility] Comment on above: Order Comment: Speci men Type: BLOOD SPECIMENOrdering Facility: [facility] Address: [address] [place] [address] Performed By: #### 5 7021-8 ####[facility]ORYCLIA [id number] [place] [address] [place] Hemoglobin (Bld) [Mass/Vol] 15.3 g/dL Normal 13.0-17.0 [facility] Comment on above: Order Comment: Speci men Type: BLOOD SPECIMENOrdering Facility: [facility] Address: [address] [place] [address] Performed By: #### 5 7021-8 ####[facility]ORYCLIA [id number] [address] [place] Immature granulocytes (Bld) [#/Vol] 0.05 10*3/uL Normal <0.10 [facility] Comment on above: Order Comment: Speci men Type: BLOOD SPECIMENOrdering Facility: [facility] Address: [address] [place] [address] Performed By: #### 5 7021-8 ####[facility]ORYCLIA [id number] [address] [place] Immature granulocytes/100 WBC (Bld) 0.4 % Normal [facility] Comment on above: Order Comment: Speci men Type: BLOOD SPECIMENOrdering Facility: [facility] Address: [address] [place] [address] Performed By: #### 5 7021-8 ####[facility]ORYCLIA [id number] [place] [address] [place] Lymphocytes (Bld) [#/Vol] 0.83 10*3/uL Low 1.00-4.00 [facility] Comment on above: Order Comment: Speci men Type: BLOOD SPECIMENOrdering Facility: [facility] Address: [address] [address] Performed By: #### 5 7021-8 ####[facility] LABORATORYCLIA [id number] [address] [place] Lymphocytes/100 WBC (Bld) 6.8 % Normal [facility] Comment on above: Order Comment: Speci men Type: BLOOD SPECIMENOrdering Facility: [facility] Address: [address] [address] Performed By: #### 5 7021-8 ####[facility] LABORATORYCLIA [id number] [place] [address] [place] MCH (RBC) [Entitic mass] 28.4 pg Normal 26.0-34.0 [facility] Comment on above: Order Comment: Speci men Type: BLOOD SPECIMENOrdering Facility: [facility] Address: [address] [address] Performed By: #### 5 7021-8 ####[facility]ORYCLIA [id number] [address] [place] MCHC (RBC) [Mass/Vol] 33.8 g/dL Normal 30.5-36.0 [facility] Comment on above: Order Comment: Speci men Type: BLOOD SPECIMENOrdering Facility: [facility] Address: [address] [address] Performed By: #### 5 7021-8 ####[facility]ORYCLIA [id number] [address] [place] MCV (RBC) [Entitic vol] 83.9 fL Normal 80.0-100.0 [facility] Comment on above: Order Comment: Speci men Type: BLOOD SPECIMENOrdering Facility: [facility] Address: [address] [address] Performed By: #### 5 7021-8 ####[facility]ATORYCLIA [id number] [place] [id number] [place] Monocytes (Bld) [#/Vol] 0.26 10*3/uL Normal <0.87 [facility] Comment on above: Order Comment: Speci men Type: BLOOD SPECIMENOrdering Facility: [facility] Address: [address] [place] [address] Performed By: #### 5 7021-8 ####[facility]ATORYCLIA [id number] [place] [address] [place] Monocytes/100 WBC (Bld) 2.1 % Normal [facility] Comment on above: Order Comment: Speci men Type: BLOOD SPECIMENOrdering Facility: [facility] Address: [address] [place] [address] Performed By: #### 5 7021-8 ####[facility]ATORYCLIA [id number] [place] [address] [place] Neutrophils (Bld) [#/Vol] 10.98 10*3/uL High 1.45-7.50 [facility] Comment on above: Order Comment: Speci men Type: BLOOD SPECIMENOrdering Facility: [facility] Address: [address] [place] [address] Performed By: #### 5 7021-8 ####[facility]ATORYCLIA [id number] [place] [address] [place] Neutrophils/100 WBC (Bld) 90.3 % Normal [facility] Comment on above: Order Comment: Speci men Type: BLOOD SPECIMENOrdering Facility: [facility] Address: [address] [place] [address] Performed By: #### 5 7021-8 ####[facility]ATORYCLIA [id number] [place] [address] [place] Nucleated RBC (Bld) [#/Vol] 10*3/uL Normal <0.01 [facility] Comment on above: Order Comment: Speci men Type: BLOOD SPECIMENOrdering Facility: [facility] Address: [address] [address] Performed By: #### 5 7021-8 ####[facility] LABORATORYCLIA [id number] [place] [address] [place] Nucleated RBC/100 WBC (Bld) [Ratio] 0.0 /100 WBC Normal [facility] Comment on above: Order Comment: Speci men Type: BLOOD SPECIMENOrdering Facility: [facility] Address: [address] [address] Performed By: #### 5 7021-8 ####[facility] LABORATORYCLIA [id number] [place] [address] [place] Platelet mean volume (Bld) [Entitic vol] 8.7 fL Low 9.0-12.7 [facility] Comment on above: Order Comment: Speci men Type: BLOOD SPECIMENOrdering Facility: [facility] Address: [address] [place] [address] Performed By: #### 5 7021-8 ####[facility] LABORATORYCLIA [id number] [place] [address] [place] Platelets (Bld) [#/Vol] 342 10*3/uL Normal 150-400 [facility] Comment on above: Order Comment: Speci men Type: BLOOD SPECIMENOrdering Facility: [facility] Address: [address] [place] [address] Performed By: #### 5 7021-8 ####[facility] LABORATORYCLIA [id number] [place] [address] [place] RBC (Bld) [#/Vol] 5.39 10*6/uL Normal 4.20-6.00 [facility] Comment on above: Order Comment: Speci men Type: BLOOD SPECIMENOrdering Facility: [facility] Address: [address] [place] [address] Performed By: #### 5 7021-8 ####[facility] LABORATORYCLIA [id number] [place] [address] [place] WBC (Bld) [#/Vol] 12.16 10*3/uL High 3.70-11.00 [facility] Comment on above: Order Comment: Speci men Type: BLOOD SPECIMENOrdering Facility: [facility] Address: [address] [address] Performed By: #### 5 7021-8 ####[facility] LABORATORYCLIA [id number] [address] [id number] [facility] Comprehensive metabolic 2000 panelon 05-07-2022 Albumin [Mass/Vol] 4.7 g/dL Normal 3.9-4.9 [facility] Comment on above: Order Comment: Speci men Type: BLOOD SPECIMEN Ordering Facility: [facility] Address: [address] [place] [address] Performed By: #### 2 4323-8, , 0-3 #### [facility] CLIA [id number] [place] [address] [place] ALP [Catalytic activity/Vol] 107 U/L Normal 38-113 [facility] Comment on above: Order Comment: Speci men Type: BLOOD SPECIMEN Ordering Facility: [facility] Address: [address] [place] [address] Performed By: #### 2 4323-8, , 0-3 #### [facility] CLIA [id number] [place] ALT [Catalytic activity/Vol] 39 U/L Normal 10-54 [facility] Comment on above: Order Comment: Speci men Type: BLOOD SPECIMEN Ordering Facility: [facility] Address: [address] [address] Performed By: #### 2 4323-8, , 0-3 #### [facility] CLIA [id number] [place] [address] [place] Anion gap [Moles/Vol] 17 mmol/L Normal 9-18 [facility] Comment on above: Order Comment: Speci men Type: BLOOD SPECIMEN Ordering Facility: [facility] Address: [address] [address] Performed By: #### 2 4323-8, , 3 #### [facility] CLIA [id number] [place] [address] [place] AST [Catalytic activity/Vol] 24 U/L Normal 14-40 [facility] Comment on above: Order Comment: Speci men Type: BLOOD SPECIMEN Ordering Facility: [facility] Address: [address] [address] Performed By: #### 2 4323-8, , 3 #### [facility] CLIA [id number] [place] [address] [place] Bilirubin [Mass/Vol] 0.3 mg/dL Normal 0.2-1.3 [facility] Comment on above: Order Comment: Speci men Type: BLOOD SPECIMEN Ordering Facility: [facility] Address: [address] [address] Performed By: #### 2 432-8, , 3 #### [facility] CLIA [id number] [place] [address] [place] Calcium [Mass/Vol] 10.3 mg/dL High 8.5-10.2 [facility] Comment on above: Order Comment: Speci men Type: BLOOD SPECIMEN Ordering Facility: [facility] Address: [address] [address] Performed By: #### 2 4323-8, , 3 #### [facility] CLIA [id number] [place] [address] [place] Chloride [Moles/Vol] 102 mmol/L Normal 97-105 [facility] Comment on above: Order Comment: Speci men Type: BLOOD SPECIMEN Ordering Facility: [facility] Address: [address] [address] Performed By: #### 2 4323-8, , 3039-3 #### [facility] CLIA [id number] [place] [address] [place] CO2 [Moles/Vol] 23 mmol/L Normal 22-30 [facility] Comment on above: Order Comment: Nicolás dickson Type: BLOOD SPECIMEN Ordering Facility: [facility] Address: [address] [address] Performed By: #### 2 4323-8, 79376-8, 0-3 #### [facility] CLIA [id number] [place] [address] [place] Creatinine [Mass/Vol] 0.77 mg/dL Normal 0.73-1.22 [facility] Comment on above: Order Comment: Nicolás dickson Type: BLOOD SPECIMEN Ordering Facility: [facility] Address: [address] [place] [address] Performed By: #### 2 4323-8, 58426-3, 3039-3 #### [facility] CLIA [id number] [address] [place] ESTIMATED GLOMERULAR FILTRATION RATE 119 mL/min/1.73m??? Normal >=60 [facility] Comment on above: Order Comment: Nicolás dickson Type: BLOOD SPECIMEN Ordering Facility: [facility] Address: [address] [place] [address] Result Comment: Jaymie mated Glomerular Filtration Rate [...] actual GFR. Performed By: #### 2 4323-8, 77176-5, 0-3 #### [facility] CLIA [id number] [address] [place] [address] [place] Glucose [Mass/Vol] 124 mg/dL High 74-99 [facility] Comment on above: Order Comment: Nicolás dickson Type: BLOOD SPECIMEN Ordering Facility: [facility] Address: [address] [place] [address] Result Comment: The [place] [employer] Association (ADA) provides guidance for cutoff [...] Standards of Medical Care in Diabetes 2016, [place] [employer]. Diabetes Care. 2016.39(Suppl 1). Performed By: #### 2 4323-8, , 3 #### [facility] CLIA [id number] [place] [address] [place] Protein [Mass/Vol] 8.2 g/dL High 6.3-8.0 [facility] Comment on above: Order Comment: Speci men Type: BLOOD SPECIMEN Ordering Facility: [facility] Address: [address] Performed By: #### 2 4323-8, , 3 #### [facility] CLIA [id number] [address] [place] [id number] [place] Sodium [Moles/Vol] 142 mmol/L Normal 136-144 [facility] Comment on above: Order Comment: Speci men Type: BLOOD SPECIMEN Ordering Facility: [facility] Address: [address] [id number] Performed By: #### 2 4323-8, , 3 #### [facility] CLIA [id number] [place] [address] [place] Urea nitrogen [Mass/Vol] 10 mg/dL Normal 9-24 [facility] Comment on above: Order Comment: Speci men Type: BLOOD SPECIMEN Ordering Facility: [facility] Address: [address] [address] Performed By: #### 2 4323-8, 43099-5, 3040-3 #### [facility] CLIA [id number] [place] [id number] [facility] ECG COMPLETEon 05-07-2022 ECG COMPLETE Ventricular Rate : 7 7 BPM Atrial Rate : 77 BPM P-R Interval : 174 ms QRS Duration : 80 ms Q-T Interval : 394 ms QTC Calculation(Bazett) : 445 ms Calculated P Madrid : 61 degrees Calculated R Madrid : 28 degrees Calculated T Madrid : 13 degrees NORMAL SINUS RHYTHM NORMAL ECG NO PREVIOUS ECGS AVAILABLE NO STEMI Confirmed by ÁNGELA TORRES MD ([id number]), video editor ZULEMA GILLILAND ([id number]) on 05/08/2022 2:41:21 PM NAME : MAYITO FORBES PID : [id number] : 1985 Gender : Male Race : ORD : [id number] Procedure Date : May 07 2022 16:20:18 Edit Date : May 08 2022 14:41:22 Diagnosis: NORMAL SINUS RHYTHM NORMAL ECG NO PREVIOUS ECGS AVAILABLE NO STEMI Confirmed by ÁNGELA TORRES MD ([id number]), video editor ZULEMA GILLILAND ([id number]) on 05/08/2022 2:41:21 PM Test Reason : Chest Pain Location : 80 : [facility] CC Overread By : ÁNGELA TORRES MD Edited By : ZULEMA GILLILAND Referred By : , Acquired by : DARIO SALAZAR [facility] [place] ED NOTEon 05-07-2022 ED NOTE HNO ID: [id number] Author: Leda Doshi RN Service: ? Author Type: Registered Nurse Type: ED Notes Filed: 05/07/2022 8:13 PM Note Text: Per Dr. Bahena pt to be admitted for observation. [facility] [place] ED NOTE HNO ID: [id number] Author: Leda Doshi RN Service: ? Author Type: Registered Nurse Type: ED Notes Filed: 05/07/2022 8:02 PM Note Text: Provided pt with popsicles for PO challenge [facility] [place] ED NOTE HNO ID: [id number] Author: Rashida Encinas RN Service: ? Author Type: Registered Nurse Type: ED Notes Filed: 05/07/2022 4:15 PM Note Text: EKG paged. [facility] [place] ED NOTE HNO ID: [id number] Author: Rashida Encinas RN Service: ? Author Type: Registered Nurse Type: ED Notes Filed: 05/07/2022 4:14 PM Note Text: IV attempted. [facility] [place] ED NOTE HNO ID: [id number] Author: Elle Fontanez RN Service: ? Author Type: Registered Nurse Type: ED Notes Filed: 05/07/2022 1:59 PM Note Text: Pt able to use hands to hold emesis bag and spit into it without difficulty [facility] [place] ED NOTE HNO ID: [id number] Author: Elle Fontanez RN Service: ? Author [...] into lobby in view of triage desk [facility] [place] ED NOTE HNO ID: [id number] Author: Elle Fontanez RN Service: ? Author Type: Registered Nurse Type: ED Notes Filed: 05/07/2022 12:42 PM Note Text: Pt now continuously throwing up in triage [facility] [place] ED NOTE HNO ID: [id number] Author: Elle Fontanez RN Service: ? Author Type: Registered Nurse Type: ED Notes Filed: 05/07/2022 1:21 PM Note Text: Pt to the ER from [facility] for nausea and vomiting that started this morning. [place] gave patient zofran and bentyl [employer]. EMS states patient now refusing to converse but when he was on the way, pt was Aox4. Pt nods head yes and no to triage questions Pt was just admitted to [facility] on 05/04 [facility] [place] ED PROV NOTEon 05-07-2022 ED PROV NOTE HNO ID: [id number] Author: Ángela Torres MD Service: Emergency Medicine [...] pain. The patient was reportedly brought from [facility] for nausea and vomiting. Per report, [...] interpretation: Normal sinus rhythm, rate 77 BPM. NV interval and QRS duration within normal limits. QTc within normal limits Normal axis. Non-specific T-wave abnormalities. No STEMI. No prior EKG for comparison. 1706 CBC + AUTO DIFF(!): WBC 12.16(!) RBC 5.39 Hemoglobi (more content not included)... Normal [facility] Gas + CO Pnl BldVon 05-07-20 22 Potassium [Moles/Vol] 3.4 mmol/L Low 3.7-5.1 [facility] Comment on above: Order Comment: Specgraciela dickson Type: VENOUS BLOOD SPECIMEN Ordering Facility: [facility] Address: [address] [address] Performed By: #### 2 4344-4 #### [facility] CLIA [id number] [facility] CARDIOPULMONARY [address] [place] [address] Order Comment: Nicolás dickson Type: BLOOD SPECIMEN Ordering Facility: [facility] Address: [address] [address] Performed By: #### 2 4323-8, 44459-0, 3040-3 #### [facility] CLIA [id number] [address] [place] [address] [place] Gas and Carbon monoxide pane l (BldV)on 05-07-2022 Base excess Calc (BldV) [Moles/Vol] 2 mmol/L Normal 0-2 [facility] Comment on above: Order Comment: Speci men Type: VENOUS BLOOD SPECIMEN Ordering Facility: [facility] Address: [address] [address] Performed By: #### 2 4344-4 #### [facility] CLIA [id number] [facility] CARDI[facility]UL[facility] [address] [place] [address] Body temperature 97.34 [degF] Normal [facility] Comment on above: Order Comment: Speci men Type: VENOUS BLOOD SPECIMEN Ordering Facility: [facility] Address: [address] [address] Performed By: #### 2 4344-4 #### [facility] CLIA [id number] [facility] CARDIOPULMONARY [address] [place] [address] Calcium.ionized (Bld) [Mass/Vol] 1.20 mmol/L Normal 1.08-1.30 [facility] Comment on above: Order Comment: Speci men Type: VENOUS BLOOD SPECIMEN Ordering Facility: [facility] Address: [address] [address] Performed By: #### 2 4344-4 #### [facility] CLIA [id number] [facility] CARDIOPULMONARY [address] [place] [address] Carboxyhemoglobin (BldV) [Mass fraction] 1.3 % Normal 0.0-2.0 [facility] Comment on above: Order Comment: Speci men Type: VENOUS BLOOD SPECIMEN Ordering Facility: [facility] Address: [address] [address] Result Comment: Carb oxyhemoglobin Reference Range for Smokers: 2.0-8.0% Performed By: #### 2 4344-4 #### [facility] CLIA [id number] [facility] CARDIOPULMONARY [address] [place] [address] Chloride [Moles/Vol] 108 mmol/L High 97-105 [facility] Comment on above: Order Comment: Speci men Type: VENOUS BLOOD SPECIMEN Ordering Facility: [facility] Address: [address] [address] Performed By: #### 2 4344-4 #### [facility] CLIA [id number] [facility] CARDIOPULMONARY [address] [place] [address] CO2 (BldV) [Partial pressure] 34 mm[Hg] Low 4255 [facility] Comment on above: Order Comment: Speci men Type: VENOUS BLOOD SPECIMEN Ordering Facility: [facility] Address: [address] [place] [address] Performed By: #### 2 4344-4 #### [facility] [place] [id number] [facility] CARDIOPULMONARY [address] [place] [address] CO2 adjusted to patient's actual temperature (BldV) [Partial pressure] 33 mmHg Low 4255 [facility] Comment on above: Order Comment: Speci men Type: VENOUS BLOOD SPECIMEN Ordering Facility: [facility] Address: [address] [place] [address] Performed By: #### 2 4344-4 #### [facility] [place] [id number] [facility] [address] [place] [address] HCO3 (Bld) [Moles/Vol] 26 mmol/L Normal 24-28 [facility] Comment on above: Order Comment: Speci men Type: VENOUS BLOOD SPECIMEN Ordering Facility: [facility] Address: [address] [place] [address] Performed By: #### 2 4344-4 #### [facility] [place] [id number] [facility] [address] [place] [id number] Hemoglobin (Bld) [Mass/Vol] 14.7 g/dL Normal 13.0-17.0 [facility] Comment on above: Order Comment: Speci men Type: VENOUS BLOOD SPECIMEN Ordering Facility: [facility] Address: [address] [place] [address] Performed By: #### 2 4344-4 #### [facility] [id number] [facility] [address] [place] [address] Lactate [Moles/Vol] 2.1 mmol/L Normal 0.5-2.2 [facility] Comment on above: Order Comment: Speci men Type: VENOUS BLOOD SPECIMEN Ordering Facility: [facility] Address: [address] [address] Performed By: #### 2 4344-4 #### [facility] CLIA [id number] [facility] [address] [place] [address] Methemoglobin (Bld) [Mass fraction] % Normal 0.0-1.5 [facility] Comment on above: Order Comment: Speci men Type: VENOUS BLOOD SPECIMEN Ordering Facility: [facility] Address: [address] [address] Performed By: #### 2 4344-4 #### [facility] CLIA [id number] [facility] [address] [place] [address] O2 THERAPY RA=Room Air Normal [facility] Comment on above: Order Comment: Speci men Type: VENOUS BLOOD SPECIMEN Ordering Facility: [facility] Address: [address] [address] Performed By: #### 2 4344-4 #### [facility] CLIA [id number] [facility] [address] [place] [address] Oxygen (BldV) [Partial pressure] 31 mm[Hg] Low 35-45 [facility] Comment on above: Order Comment: Speci men Type: VENOUS BLOOD SPECIMEN Ordering Facility: [facility] Address: [address] [address] Performed By: #### 2 4344-4 #### [facility] CLIA [id number] [facility] [address] [place] [address] Oxygen adjusted to patient's actual temperature (BldV) [Partial pressure] Normal [facility] Comment on above: Order Comment: Speci men Type: VENOUS BLOOD SPECIMEN Ordering Facility: [facility] Address: [address] [address] Performed By: #### 2 4344-4 #### [facility] CLIA [id number] [facility] [address] [place] [address] Oxygen saturation in Venous blood 64 % Normal 60-85 [facility] Comment on above: Order Comment: Speci men Type: VENOUS BLOOD SPECIMEN Ordering Facility: [facility] Address: [address] [address] Performed By: #### 2 4344-4 #### [facility] CLIA [id number] [facility] [address] [place] [address] Oxyhemoglobin (BldV) [Mass fraction] 63 % Normal 60-85 [facility] Comment on above: Order Comment: Speci men Type: VENOUS BLOOD SPECIMEN Ordering Facility: [facility] Address: [address] [place] [address] Performed By: #### 2 4344-4 #### [facility] CLIA [id number] [facility] [address] [place] [address] pH (BldV) 7.48 [pH] High 7.32-7.42 [facility] Comment on above: Order Comment: Speci men Type: VENOUS BLOOD SPECIMEN Ordering Facility: [facility] Address: [address] [place] [address] Performed By: #### 2 4344-4 #### [facility] CLIA [id number] [facility] [address] [place] [address] pH adjusted to patient's actual temperature (BldV) 7.49 High 7.32-7.42 [facility] Comment on above: Order Comment: Speci men Type: VENOUS BLOOD SPECIMEN Ordering Facility: [facility] Address: [address] [place] [address] Performed By: #### 2 4344-4 #### [facility] CLIA [id number] [facility] [address] [place] [address] Sodium [Moles/Vol] 146 mmol/L High 136-144 [facility] Comment on above: Order Comment: Speci men Type: VENOUS BLOOD SPECIMEN Ordering Facility: [facility] Address: [address] [id number] Performed By: #### 2 4344-4 #### [facility] CLIA [id number] [facility] [address] [place] [address] Lipase SerPl-cCncon 05-07-20 22 Lipase [Catalytic activity/Vol] 21 U/L Normal 16-61 [facility] Comment on above: Order Comment: Speci men Type: BLOOD SPECIMEN Ordering Facility: [facility] Address: [address] Performed By: #### 2 4323-8, 95291-7, 3040-3 #### [facility] CLIA [id number] [address] [place] [id number] [place] Magnesium SerPl-mCncon 05-07 Magnesium [Mass/Vol] 1.5 mg/dL Low 1.7-2.3 [facility] Comment on above: Order Comment: Speci men Type: BLOOD SPECIMENOrdering Facility: [facility] Address: [address] [id number] Performed By: #### 2 4323-8, 13454-8, 0-3 ####[facility] [id number] [place] [id number] [place] Basophil percentageon 2021 Chloride [Moles/Vol] 105 mmol/L 98-107 [facility] Work Phone: Glucose [Mass/Vol] 106 mg/dL 74-106 [facility] Work Phone: Comment on above: Fasting Glucose resu lt from 100 to 125 mg/dL suggests IMPAIRED HOMEOSTASIS per A.D.A. criteria. Potassium [Moles/Vol] 3.4 mmol/L 3.5-5.1 [facility] Work Phone: Sodium [Moles/Vol] 137 mmol/L 136-145 [facility] Work Phone: Laboratory - Chemistry and C hemistry - challengeon 04-25-2022 CO2 [Moles/Vol] 25.0 mmol/L 21.0-32.0 [facility] Work Phone: [phone] Magnesium [Mass/Vol] 2.2 mg/dL 1.6-2.[address] [facility] [address] [facility] Work Phone: [phone] Urea nitrogen/Creatinine [Mass ratio] 19.8 mg/mg 10-20 [facility] Work Phone: [phone] Panel Informationon 04-25 Estimated Creatinine Clearance Calc 134.37 ml/min [facility] Work Phone: Estimated GFR (MDRD) Amer 149 mL/min >60 [facility] Work Phone: [phone] Comment on above: GFR Calc Estimated GFR (MDRD) Non-Af Amer 123 mL/min >60 [facility] Work Phone: Comment on above: Non- GFR Calc Serum or plasma calcium kirsty urement (mass/volume)on 04-25-2022 Calcium [Mass/Vol] 9.2 mg/dL 8.5-10.1 oste r [facility] Work Phone: [phone] Serum or plasma creatinine m easurement (mass/volume)on 04-25-2022 Creatinine [Mass/Vol] 0.76 mg/dL 0.70-1.30 [facility] Work Phone: Comment on above: The validity of the calculated GFR & GFRAA in patients over 70 years has not been determined. Clinical correlation is essential. Serum or plasma urea nitroge n measurement (mass/volume)on 04-25-2022 Urea nitrogen [Mass/Vol] 15 mg/dL 7-18 [facility] Work Phone: [phone] Thin prep Papanicolaou smear with manual screeningon 04-25-2022 Thin prep Papanicolaou smear with manual screening 7 5-15 [facility] Work Phone: [phone] Absolute lymphocyte counton 04-24-2022 Lymphocytes Auto (Unsp spec) [#/Vol] 1.57 10*3/uL 0.83-4.51 [facility] Work Phone: Basophil percentageon 2021 Basophil percentage 0 SEEN /hpf 0-5 [facility] Work Phone: Basophils/100 WBC (Bld) 0.2 % 0-1 [facility] Work Phone: Eosinophils/100 WBC (Bld) 0.2 % 0-5 [facility] Work Phone: Neutrophils (Bld) [#/Vol] 8.0 10*3/uL 2.0-7.7 [facility] Work Phone: [phone] Neutrophils/100 WBC (Bld) 77.0 % 47-70 [facility] Work Phone: [phone] WBC (Bld) [#/Vol] 10.4 10*3/uL 4.4-11.0 [facility] Work Phone: Bilirubin Test strip Ql (U)o n 04-24-2022 Bilirubin Ql (U) Negative Negative [facility] Work Phone: Blood erythrocytes count (nu mber/volume)on 04-24-2022 RBC (Bld) [#/Vol] 5.04 10*6/uL 4.6-6.2 [facility] Work Phone: Blood hemoglobin measurement (mass/volume)on 04-24-2022 Hemoglobin (Bld) [Mass/Vol] 14.5 g/dL 13.0-16.5 [facility] Work Phone: [phone] Blood lymphocytes/100 leukoc yteson 04-24-2022 Lymphocytes/100 WBC (Bld) 15.1 % 19-41 [facility] Work Phone: Blood monocytes/100 leukocyt eson 04-24-2022 Monocytes/100 WBC (Bld) 7.2 % 0-10 [facility] Work Phone: Blood platelet mean volumeon 04-24-2022 Platelet mean volume (Bld) [Entitic vol] 9.4 fL 6.2-12.0 [facility] Work Phone: Determination of erythrocyte mean corpuscular volume (MCV)on 04-24-2022 MCV (RBC) [Entitic vol] 84.5 fL 80-94 [facility] Work Phone: [phone] Hematocrit Auto (Bld) [Volum e fraction]on 04-24-2022 Hematocrit (Bld) [Volume fraction] 42.6 % 40-54 [facility] Work Phone: [phone] Ketones Test strip Ql (U)on 04-24-2022 Ketones Ql (U) 15 mg/dl Negative [facility] Work Phone: [phone] Laboratory - Hematology and Cell countson 04-24-2022 Erythrocyte distribution width (RBC) [Entitic vol] 41.6 fL 35.1-43.9 [facility] Work Phone: [phone] Erythrocyte distribution width (RBC) [Ratio] 13.5 % 11.6-14.6 [facility] Work Phone: [phone] Immature granulocytes/100 WBC (Bld) 0.300 % 0.0-0.9 [facility] Work Phone: [phone] Comment on above: IG% - Immature Granu locytes (promyelocytes, myelocytes and metamyelocytes) > 1% indicates that a LEFT SHIFT is Present. MCH (RBC) [Entitic mass] 28.8 pg 27.0-32.0 [facility] Work Phone: [phone] Nucleated RBC/100 WBC (Bld) [Ratio] 0 % 0-5 [facility] Work Phone: [phone] MCHC Auto (RBC) [Mass/Vol]on 04-24-2022 MCHC (RBC) [Mass/Vol] 34.0 g/dL 32-36 [facility] Work Phone: [phone] Mucus LM Ql (Urine sed)on Mucus Ql (Urine sed) 0 SEEN /hpf [facility] Work Phone: [phone] Nitrite Test strip Ql (U)on 04-24-2022 Nitrite Ql (U) Negative Negative [facility] Work Phone: [phone] Platelets bldon 04-24-2022 Platelets (Bld) [#/Vol] 183 10*3/uL 150-450 [facility] Work Phone: Protein Test strip Ql (U)on 04-24-2022 Protein Ql (U) 15 mg/dl Negative [facility] Work Phone: Squamous epithelial cells de tection in urine sediment by light microscopyon 04-24-2022 Epithelial cells.squamous LM Ql (Urine sed) 0 SEEN /hpf 0-5 [facility] Work Phone: Urine blood detectionon 03-31 RBC Ql (U) 10 /ul Negative [facility] Work Phone: RBC Ql (U) 0 SEEN /hpf 0-5 [facility] Work Phone: Urine clarityon 04-24-2022 Clarity (U) Clear Clear [facility] Work Phone: Urine color determinationon 04-24-2022 Color (U) Yellow Yellow [facility] Work Phone: Urine glucose detectionon Glucose Ql (U) Normal mg/dl Normal [facility] Work Phone: Urine leukocyte esterase det ection by dipstickon 04-24-2022 Leukocyte esterase Test strip Ql (U) Negative Negative [facility] Work Phone: Urine pHon 04-24-2022 pH (U) 7.0 [pH] 5.0 - 8.0 [facility] Work Phone: Urine sediment bacteria coun t by microscopy (number/high power field)on 04-24-2022 Bacteria LM.HPF (Urine sed) [#/Area] 0 /[HPF] None Seen [facility] Work Phone: Urine specific gravity measu rementon 04-24-2022 Specific gravity (U) [Rel density] 1.015 1.002-1.030 [facility] Work Phone: Urobilinogen Auto test strip Ql (U)on 04-24-2022 Urobilinogen Ql (U) 1 mg/dl Normal [facility] Work Phone: No Panel Informationon 04-23 Troponin I High Sensitivity 5 pg/mL 3.0-78.0 [facility] Work Phone: [phone] Comment on above: Please Note: New April t Units and Gender Specific Reference Ranges. For more information see Policy Stat Procedure [place] High Sensitivity Troponin (TNIH) and attachments. Basophil percentageon 2021 Ammonia (P) [Moles/Vol] 12.0 umol/L 11-32 [facility] Work Phone: [phone] Bilirubin [Mass/Vol] 0.40 mg/dL 0.20-1.00 [facility] Work Phone: [phone] Comment on above: For patients on eltr ombopag therapy, use of Dimension [place] TBIL is not recommended. Protein [Mass/Vol] 8.0 g/dL 6.4-8.2 [facility] Work Phone: [phone] Glucose Glucometer (BldC) [M ass/Vol]on 04-22-2022 Glucose [Mass/Vol] 138 mg/dL 74-106 [facility] Work Phone: [phone] Comment on above: MANAGEMENT OF PATIEN T CARE PER NURSING PROTOCOL Laboratory - Chemistry and C hemistry - challengeon 04-22-2022 ALP [Catalytic activity/Vol] 115 U/L 45-117 [facility] Work Phone: [phone] ALT [Catalytic activity/Vol] 54 U/L 16-61 [facility] Work Phone: [phone] CK [Catalytic activity/Vol] 123 U/L 39-308 [facility] Work Phone: [phone] Globulin (S) [Mass/Vol] 4.2 g/dL 2.2-4.2 [facility] Work Phone: [phone] No Panel Informationon 04-22 Thyroid Stimulating Hormone (TSH) 0.64 uIU/mL 0.358-3.74 [facility] Work Phone: [phone] Serum or plasma albumin kirsty urement (mass/volume)on 04-22-2022 Albumin [Mass/Vol] 3.8 g/dL 3.2-5.0 [facility] Work Phone: Serum or plasma albumin/glob ulin mass ratioon 04-22-2022 Albumin/Globulin [Mass ratio] 0.9 {ratio} 0.9-2.4 [facility] Work Phone: Thin prep Papanicolaou smear with manual screeningon 04-22-2022 Thin prep Papanicolaou smear with manual screening 35 U/L 15-37 [facility] Work Phone: Absolute lymphocyte counton 04-21-2022 Lymphocytes Auto (Unsp spec) [#/Vol] 1.49 10*3/uL 0.83-4.51 [facility] Work Phone: Basophil percentageon 2021 Basophils/100 WBC (Bld) 0.4 % 0-1 [facility] Work Phone: Bilirubin [Mass/Vol] 0.30 mg/dL 0.20-1.00 [facility] Work Phone: Comment on above: For patients on eltr ombopag therapy, use of Dimension [place] TBIL is not recommended. Chloride [Moles/Vol] 103 mmol/L 98-107 [facility] Work Phone: Eosinophils/100 WBC (Bld) 4.0 % 0-5 [facility] Work Phone: Glucose [Mass/Vol] 134 mg/dL 74-106 [facility] Work Phone: Comment on above: Fasting Glucose resu lt greater than or equal to 126 mg/dL suggests DIABETES MELLITUS per A.D.A. criteria. Neutrophils (Bld) [#/Vol] 4.4 10*3/uL 2.0-7.7 [facility] Work Phone: Neutrophils/100 WBC (Bld) 65.3 % 47-70 [facility] Work Phone: Potassium [Moles/Vol] 3.9 mmol/L 3.5-5.1 [facility] Work Phone: Protein [Mass/Vol] 7.6 g/dL 6.4-8.2 [facility] Work Phone: Sodium [Moles/Vol] 139 mmol/L 136-145 [facility] Work Phone: WBC (Bld) [#/Vol] 6.7 10*3/uL 4.4-11.0 [facility] Work Phone: Blood erythrocytes count (nu mber/volume)on 04-21-2022 RBC (Bld) [#/Vol] 4.94 10*6/uL 4.6-6.2 [facility] Work Phone: Blood hemoglobin measurement (mass/volume)on 04-21-2022 Hemoglobin (Bld) [Mass/Vol] 13.8 g/dL 13.0-16.5 [facility] Work Phone: Blood lymphocytes/100 leukoc yteson 04-21-2022 Lymphocytes/100 WBC (Bld) 22.2 % 19-41 [facility] Work Phone: Blood monocytes/100 leukocyt eson 04-21-2022 Monocytes/100 WBC (Bld) 8.0 % 0-10 [facility] Work Phone: Blood platelet mean volumeon 04-21-2022 Platelet mean volume (Bld) [Entitic vol] 8.6 fL 6.2-12.0 [facility] Work Phone: Determination of erythrocyte mean corpuscular volume (MCV)on 04-21-2022 MCV (RBC) [Entitic vol] 86.2 fL 80-94 [facility] Work Phone: Direct bilirubinon Bilirubin.direct [Mass/Vol] 0.08 mg/dL 0.00-0.30 [facility] Work Phone: Hematocrit Auto (Bld) [Volum e fraction]on 04-21-2022 Hematocrit (Bld) [Volume fraction] 42.6 % 40-54 [facility] Work Phone: Laboratory - Chemistry and C hemistry - challengeon 04-21-2022 ALP [Catalytic activity/Vol] 108 U/L 45-117 [facility] Work Phone: [phone] ALT [Catalytic activity/Vol] 49 U/L 16-61 [facility] Work Phone: [phone] CO2 [Moles/Vol] 30.0 mmol/L 21.0-32.0 [facility] Work Phone: [phone] Globulin (S) [Mass/Vol] 3.9 g/dL 2.2-4.2 [facility] Work Phone: [phone] Urea nitrogen/Creatinine [Mass ratio] 11.1 mg/mg 10-20 [facility] Work Phone: [phone] Laboratory - Drug toxicology on 04-21-2022 Amphetamines Ql (U) Positive <1000 ng/mL [facility] Work Phone: [phone] Benzodiazepines Ql (U) Negative < 200 ng/mL [facility] Work Phone: [phone] Cannabinoids Screen Ql (U) Positive < 50 ng/mL [facility] Work Phone: [phone] Cocaine Ql (U) Negative < 300 ng/mL [facility] Work Phone: [phone] Opiates Ql (U) Negative < 300 ng/mL [facility] Work Phone: [phone] Laboratory - Hematology and Cell countson 04-21-2022 Erythrocyte distribution width (RBC) [Entitic vol] 42.0 fL 35.1-43.9 [facility] Work Phone: [phone] Erythrocyte distribution width (RBC) [Ratio] 13.4 % 11.6-14.6 [facility] Work Phone: [phone] Immature granulocytes/100 WBC (Bld) 0.100 % 0.0-0.9 [facility] Work Phone: [phone] Comment on above: IG% - Immature Granu locytes (promyelocytes, myelocytes and metamyelocytes) > 1% indicates that a LEFT SHIFT is Present. MCH (RBC) [Entitic mass] 27.9 pg 27.0-32.0 [facility] Work Phone: [phone] Nucleated RBC/100 WBC (Bld) [Ratio] 0 % 0-5 [facility] Work Phone: [phone] MCHC Auto (RBC) [Mass/Vol]on 04-21-2022 MCHC (RBC) [Mass/Vol] 32.4 g/dL 32-36 [facility] Work Phone: [phone] Panel Informationon 04-21 Estimated Creatinine Clearance Calc 113.47 ml/min [facility] Work Phone: [phone] Estimated GFR (MDRD) Amer 122 mL/min >60 [facility] Work Phone: [phone] Comment on above: GFR Calc Estimated GFR (MDRD) Non-Af Amer 101 mL/min >60 [facility] Work Phone: [phone] Comment on above: Non- GFR Calc Ethyl Alcohol Level 6.0 mg/dL [facility] Work Phone: [phone] Comment on above: The serum:whole bloo d ethanol ratio is approximately 1.14and varies slightly with hematocrit. Medical Alcohol reference interval and critical value innon-tolerant individuals; 50 - 100 Impairment 100 Intoxication 100 - 250 Severe Poisoning 250 - 400 Deep/possible fatal coma MDMA (Ecstasy) Screen Positive < 500 ng/mL [facility] Work Phone: [phone] Urine Barbiturates Screen Negative < 200 ng/mL [facility] Work Phone: [phone] Urine Drug Screen Comment [facility] Work Phone: [phone] Comment on above: CONFIRMATORY TESTING FOR ALL [...] Methadone Screen Negative < 300 ng/mL [facility] Work Phone: Platelets bldon 04-21-2022 Platelets (Bld) [#/Vol] 285 10*3/uL 150-450 [facility] Work Phone: Serum or plasma albumin kirsty urement (mass/volume)on 04-21-2022 Albumin [Mass/Vol] 3.7 g/dL 3.2-5.0 [facility] Work Phone: Serum or plasma calcium kirsty urement (mass/volume)on 04-21-2022 Calcium [Mass/Vol] 9.2 mg/dL 8.5-10.1 [facility] Work Phone: Serum or plasma creatinine m easurement (mass/volume)on 04-21-2022 Creatinine [Mass/Vol] 0.90 mg/dL 0.70-1.30 [facility] Work Phone: Comment on above: The validity of the calculated GFR & GFRAA in patients over 70 years has not been determined. Clinical correlation is essential. Serum or plasma urea nitroge n measurement (mass/volume)on 04-21-2022 Urea nitrogen [Mass/Vol] 10 mg/dL 7-18 [facility] Work Phone: Thin prep Papanicolaou smear with manual screeningon 04-21-2022 Thin prep Papanicolaou smear with manual screening 31 U/L 15-37 [facility] Work Phone: Thin prep Papanicolaou smear with manual screening 6 5-15 [facility] Work Phone: Urine phencyclidine (PCP) de tectionon 04-21-2022 Phencyclidine Ql (U) Negative < 25 ng/mL [facility] Work Phone: CT ABDOMEN PELVIS WITHOUT [...] TueDec 24, 2021 6:32:38 AM EDT Normal [facility] Comment on above: Order Comment: Injur [...] on TueDec 23, 2021 8:06:[address] [facility] Comment on above: Order Comment: Injur [...] on TueOctober 23, 2021 3:14:[address] [facility] Comment on above: Order Comment: Injur y/Trauma or Illness?:Illness/Other How long have you had these symptoms (acute/chronic)?:Acute Reason for exam?:epigastric pain, vomiting Type of Exam?:Initial Additional signs and symptoms?:n/a Basic metabolic 2000 panelOr dered By: Smitha Nova on 09-30-2021 Anion gap [Moles/Vol] 19 mmol/L 10 - 2 0 mmol/L [facility] Calcium [Mass/Vol] 9.5 mg/dL 8.4 - 10. 2 mg/dL [facility] Chloride [Moles/Vol] 108 mmol/L 98 - 10 8 mmol/L [facility] Creatinine [Mass/Vol] 0.84 mg/dL 0.50 - 1.30 [facility] GFR/1.73 sq M.predicted CKD-EPI (S/P/Bld) [Vol rate/Area] 113 >=60 mL/min/1.73 m2 [facility] Glucose [Mass/Vol] 112 mg/dL High 65 - 99 mg/dL [facility] HCO3 [Moles/Vol] 17 mmol/L Low 21 - 32 mmol/L [facility] Interpretation and review of laboratory results Abnormal [facility] Potassium [Moles/Vol] 3.6 mmol/L 3.5 - 5.1 mmol/L [facility] Sodium [Moles/Vol] 140 mmol/L 135 - 145 mmol/L [facility] Urea nitrogen [Mass/Vol] 11 mg/dL 8 - 25 mg/dL [facility] Urea nitrogen/Creatinine [Mass ratio] 13.1 mg/mg [facility] The eGFR should be u sed for monitoring renal function only and not for medication dosing. [facility] CBC Auto Differentialon 050 Basophils (Bld) [#/Vol] 0.04 10*3/uL [facility] Basophils/100 WBC (Bld) 0.4 % [facility] Eosinophils (Bld) [#/Vol] 0.02 10*3/uL [facility] Eosinophils/100 WBC (Bld) 0.2 % [facility] Erythrocyte distribution width (RBC) [Entitic vol] 12.2 % 11.6 - 14.8 % [facility] Hematocrit (Bld) [Volume fraction] 44.7 % 41.0 - 53.0 % [facility] Hemoglobin (Bld) [Mass/Vol] 15.6 g/dL 13.5 - 17.5 g/dL [facility] Immature granulocytes (Bld) [#/Vol] 0.04 10*3/uL [facility] Immature granulocytes/100 WBC (Bld) 0.40 % [facility] Comment on above: The IG parameter is the percentage of metamyelocytes, myelocytes and promyelocytes. An immature granulocyte count (IG) of 1% or more suggests the possibility of infection, an IG count of 3% is very likely related to an infection. Interpretation and review of laboratory results Abnormal [facility] Lymphocytes (Bld) [#/Vol] 1.92 10*3/uL [facility] Lymphocytes/100 WBC (Bld) 19.6 % [facility] MCH (RBC) [Entitic mass] 29.1 pg 26. 0 - 34.0 pg [facility] MCHC (RBC) [Mass/Vol] 34.9 g/dL 31.0 - 37.0 g/dL [facility] MCV (RBC) [Entitic vol] 83.4 fL 80.0 - 100.0 fL [facility] Monocytes (Bld) [#/Vol] 0.83 10*3/uL [facility] Monocytes/100 WBC (Bld) 8.5 % [facility] Neutrophils (Bld) [#/Vol] 6.95 10*3/uL [facility] Neutrophils/100 WBC (Bld) 70.9 % [facility] Nucleated RBC (Bld) [#/Vol] 0.00 10*3/uL [facility] Nucleated RBC/100 WBC (Bld) [Ratio] 0.0 % [facility] Platelet mean volume (Bld) [Entitic vol] 8.6 fL Low 9.4 - 12.4 fL [facility] Platelets (Bld) [#/Vol] 388 10*3/uL [facility] RBC (Bld) [#/Vol] 5.36 10*6/uL [facility] WBC (Bld) [#/Vol] 9.80 10*3/uL [facility] [facility] Leadon 09-29-2021 Atrial Rate 70 BPM [facility] P [place] 63 degrees [facility] P-R Interval 154 ms [facility] Q-T Interval 402 ms [facility] QRS Duration 86 ms [facility] QTC Calculation (Bezet) 434 ms [facility] R [place] 18 degrees [facility] T [place] 43 degrees [facility] Ventricular Rate 70 BPM [facility] Normal sinus rhythm Normal ECG Confirmed by Giuliano Hunt MD ([id number]) on 09/29/2021 9:08:10 AM MUSE [facility] Atrial Rate 78 BPM [facility] P [place] 75 degrees [facility] P-R Interval 154 ms [facility] Q-T Interval 382 ms [facility] QRS Duration 88 ms [facility] QTC Calculation (Bezet) 435 ms [facility] R [place] 72 degrees [facility] T [place] 42 degrees [facility] Ventricular Rate 78 BPM [facility] Normal sinus rhythm Normal ECG Confirmed by Giuliano Hunt MD ([id number]) on 09/29/2021 6:58:15 AM MUSE [facility] CBC Auto Differentialon 05-0 Basophils (Bld) [#/Vol] 0.03 10*3/uL [facility] Basophils/100 WBC (Bld) 0.3 % [facility] Eosinophils (Bld) [#/Vol] 0.01 10*3/uL [facility] Eosinophils/100 WBC (Bld) 0.1 % [facility] Erythrocyte distribution width (RBC) [Entitic vol] 12.2 % 11.6 - 14.8 % [facility] Hematocrit (Bld) [Volume fraction] 44.4 % 41.0 - 53.0 % [facility] Hemoglobin (Bld) [Mass/Vol] 15.2 g/dL 13.5 - 17.5 g/dL [facility] Immature granulocytes (Bld) [#/Vol] 0.06 10*3/uL [facility] Immature granulocytes/100 WBC (Bld) 0.50 % [facility] Comment on above: The IG parameter is the percentage of metamyelocytes, myelocytes and promyelocytes. An immature granulocyte count (IG) of 1% or more suggests the possibility of infection, an IG count of 3% is very likely related to an infection. Interpretation and review of laboratory results Abnormal [facility] Lymphocytes (Bld) [#/Vol] 1.22 10*3/uL [facility] Lymphocytes/100 WBC (Bld) 10.6 % [facility] MCH (RBC) [Entitic mass] 29.4 pg 26. 0 - 34.0 pg [facility] MCHC (RBC) [Mass/Vol] 34.2 g/dL 31.0 - 37.0 g/dL [facility] MCV (RBC) [Entitic vol] 85.9 fL 80.0 - 100.0 fL [facility] Monocytes (Bld) [#/Vol] 0.71 10*3/uL [facility] Monocytes/100 WBC (Bld) 6.1 % [facility] Neutrophils (Bld) [#/Vol] 9.53 10*3/uL High [facility] Neutrophils/100 WBC (Bld) 82.4 % [facility] Nucleated RBC (Bld) [#/Vol] 0.00 10*3/uL [facility] Nucleated RBC/100 WBC (Bld) [Ratio] 0.0 % [facility] Platelet mean volume (Bld) [Entitic vol] 8.5 fL Low 9.4 - 12.4 fL [facility] Platelets (Bld) [#/Vol] 385 10*3/uL [facility] RBC (Bld) [#/Vol] 5.17 10*6/uL [facility] ealth WBC (Bld) [#/Vol] 11.56 10*3/uL High [facility] Comprehensive metabolic 2000 panelon 09-28-2021 Albumin [Mass/Vol] 3.9 g/dL 3.2 - 5.2 g/dL [facility] ALP [Catalytic activity/Vol] 92 U/L 40 - 140 U/L [facility] ALT [Catalytic activity/Vol] 44 U/L 14 - 65 U/L [facility] Anion gap [Moles/Vol] 12 mmol/L 10 - 2 0 mmol/L [facility] AST [Catalytic activity/Vol] 22 U/L 0 - 45 U/L [facility] Bilirubin [Mass/Vol] 0.5 mg/dL 0.0 - 1 .3 mg/dL [facility] Calcium [Mass/Vol] 9.6 mg/dL 8.4 - 10. 2 mg/dL [facility] Chloride [Moles/Vol] 105 mmol/L 98 - 10 8 mmol/L [facility] Creatinine [Mass/Vol] 0.84 mg/dL 0.50 - 1.30 [facility] GFR/1.73 sq M.predicted CKD-EPI (S/P/Bld) [Vol rate/Area] 113 >=60 mL/min/1.73 m2 [facility] Glucose [Mass/Vol] 113 mg/dL High 65 - 99 mg/dL [facility] HCO3 [Moles/Vol] 27 mmol/L 21 - 32 mmol/L [facility] Interpretation and review of laboratory results Abnormal [facility] Potassium [Moles/Vol] 3.6 mmol/L 3.5 - 5.1 mmol/L [facility] Protein [Mass/Vol] 7.7 g/dL 6.0 - 8.0 g/dL [facility] Sodium [Moles/Vol] 140 mmol/L 135 - 145 mmol/L [facility] Urea nitrogen [Mass/Vol] 12 mg/dL 8 - 25 mg/dL [facility] Urea nitrogen/Creatinine [Mass ratio] 14.3 mg/mg [facility] The eGFR should be u sed for monitoring renal function only and not for medication dosing. [facility] Gastrointestinal pathogens D NA and RNA panel KATLYN+non-probe (Stl)Ordered By: Nancy Harp on 09-28-2021 Adenovirus 40+41 DNA KATLYN+non-probe Ql (Stl) Not detected Not Detected [facility] Astrovirus subtypes 1-8 RNA KATLYN+non-probe Ql (Stl) Not detected Not Detected [facility] C. cayetanensis DNA KATLYN+non-probe Ql (Stl) Not detected Not Detected [facility] C. coli+jejuni+upsaliensis DNA KATLYN+non-probe Ql (Stl) Not detected Not Detected [facility] C. difficile toxin A+B tcdA+tcdB genes KATLYN+non-probe Ql (Stl) Not detected Not Detected [facility] Cryptosporidium sp DNA KATLYN+non-probe Ql (Stl) Not detected Not Detected [facility] E. coli enteroaggregative Santo plasmid aggR+aatA genes KATLYN+non-probe Ql (Stl) Not detected Not Detected [facility] E. coli enteropathogenic eae gene KATLYN+non-probe Ql (Stl) Not detected Not Detected [facility] E. coli enterotoxigenic ltA+st1a+st1b genes KATLYN+non-probe Ql (Stl) Not detected Not Detected [facility] E. coli stx1+stx2 genes KATLYN+non-probe Ql (Stl) Not detected Not Detected [facility] E. histolytica DNA KATLYN+non-probe Ql (Stl) Not detected Not Detected [facility] G. lamblia DNA KATLYN+non-probe Ql (Stl) Not detected Not Detected [facility] Interpretation and review of laboratory results Normal [facility] Norovirus genogroup I+II RNA KATLYN+non-probe Ql (Stl) Not detected Not Detected [facility] P. shigelloides DNA KATLYN+non-probe Ql (Stl) Not detected Not Detected [facility] Rotavirus A RNA KATLYN+non-probe Ql (Stl) Not detected Not Detected [facility] S. enterica+bongori DNA KATLYN+non-probe Ql (Stl) Not detected Not Detected [facility] Sapovirus genogroups I+II+IV+V RNA KATLYN+non-probe Ql (Stl) Not detected Not Detected [facility] Shigella species+EIEC invasion plasmid antigen H ipaH gene KATLYN+non-probe Ql (Stl) Not detected Not Detected [facility] V. cholerae DNA KATLYN+non-probe Ql (Stl) Not detected Not Detected [facility] V. cholerae+parahaemolyticu s+vulnificus DNA KATLYN+non-probe Ql (Stl) Not detected Not Detected [facility] Y. enterocolitica DNA KATLYN+non-probe Ql (Stl) Not detected Not Detected [facility] Results of PCR testi ng for [...] infections as well as select bacterial infections. [facility] Magnesiumon 09-28-2021 Magnesium [Mass/Vol] 1.6 mg/dL 1.6 - 2 .4 mg/dL [facility] Magnesium [Mass/Vol]on 09-28 Interpretation and review of laboratory results Normal [facility] COVID-19, MOLECULARon 2021 SARS-CoV-2 (COVID-19) RNA KATLYN+probe Ql (Unsp spec) Not detected Normal Not Detected [facility] Comment on above: Order Comment: Injur y/Trauma or Illness?:Illness/Other How long have you had these symptoms (acute/chronic)?:Acute Reason for exam?:epigastric pain, vomiting Type of Exam?:Initial Additional signs and symptoms?:n/a Performed By: #### L [id number] ####[facility] [address] [place], [place] [address] Lj Liz M.D. [id number] COVID-19, MolecularOrdered B y: Sylvie Jessica on 09-27-2021 SARS-CoV-2 (COVID-19) RNA KATLYN+probe Ql (Resp) Not detected Not Detected [facility] CT ABDOMEN PELVIS WITH IV CO [...] urinalysis for infection. 5. Small right hydrocele. [email or web address] Workstation ID: [id number] Dictated by: LEÓN LAMAS on [place] September 27, 2021 2:01:20 AM EDT Transcribed by: BELINDA TOBIN on [place] September 27, 2021 2:07:31 AM EDT Finalized by: LEÓN LAMAS on [place] September 27, 2021 2:11:39 AM EDT Normal [facility] Comment on above: Order Comment: Injur [...] urinalysis for infection. 5. Small right hydrocele. [email or web address] Workstation ID: [id number] EXAMINATION: CT ABDOMEN PELVIS WITH IV CONTRAST [...] Bone windows show no aggressive osseous lesions. [facility] [facility] León Lamas MD - 09/27/2021 EXAMINATION: CT [...] urinalysis for infection. 5. Small right hydrocele. [email or web address] Workstation ID: [id number] [facility] Radiology Study observation (narrative) [facility] CT Abdomen Pelvis With IV Co ntrast OnlyOrdered By: León Lamas on 09-27-2021 [facility] Work Phone: CT HEAD OR BRAIN [...] [place] September 27, 2021 1:51:[address] [facility] Comment on above: Order Comment: Injur [...] [place] September 27, 2021 1:51:[address] [facility] Comment on above: Order Comment: Injur y/Trauma or Illness?:Illness/Other How long have you had these symptoms (acute/chronic)?:Acute Reason for exam?:epigastric pain, vomiting Type of Exam?:Initial Additional signs and symptoms?:n/a CT Maxillofacial Without Con traston 09-27-2021 Radiology Study observation (narrative) [facility] EKGon 09-27-2021 Ordered by an unspecified provider. [facility] EKG 12-leadon 09-27-2021 Atrial Rate 94 BPM [facility] P [place] 77 degrees [facility] P-R Interval 170 ms [facility] Q-T Interval 352 ms [facility] QRS Duration 78 ms [facility] QTC Calculation (Bezet) 440 ms [facility] R [place] 56 degrees [facility] T [place] 39 degrees [facility] Ventricular Rate 94 BPM [facility] Normal sinus rhythm Normal ECG ECG Cart Interpretation see physician note for interpretation. Confirmed by Madhavi Lucas ([id number]) on 09/27/2021 6:41:21 PM MUSE [facility] Hepatic function 2000 panelo n 09-27-2021 Albumin [Mass/Vol] 4.0 g/dL 3.2 - 5.2 g/dL [facility] ALP [Catalytic activity/Vol] 107 U/L 40 - 140 U/L [facility] ALT [Catalytic activity/Vol] 50 U/L 14 - 65 U/L [facility] AST [Catalytic activity/Vol] 29 U/L 0 - 45 U/L [facility] Bilirubin [Mass/Vol] 0.3 mg/dL 0.0 - 1 .3 mg/dL [facility] Bilirubin.conjugated [Mass/Vol] mg/dL 0.0 - 0.4 mg/dL [facility] Interpretation and review of laboratory results Abnormal [facility] Protein [Mass/Vol] 8.5 g/dL High 6.0 - 8.0 g/dL [facility] Lipaseon 09-27-2021 Lipase [Catalytic activity/Vol] 188 U/L 73 - 393 U/L [facility] Lipase [Catalytic activity/V ol]on 09-27-2021 Interpretation and review of laboratory results Normal [facility] No Panel Informationon 09-27 Extra Tube Hold for add-ons. [facility] Comment on above: Auto resulted. [facility] Extra Tube Hold for add-ons. [facility] Comment on above: Auto resulted. [facility] 1. No acute intracranial abnormality is seen. No hemorrhage or mass effect. 2. No facial fracture or bone displacement is seen. Workstation ID: [id number] [facility] [facility] EXAMINATION: CT HEAD OR BRAIN WITHOUT CONTRAST; [...] arch: Intact bilaterally. Pterygoid plates: Intact bilaterally. [facility] Mary Ravi MD - 09/27/2021 EXAMINATION: CT [...] bone displacement is seen. Workstation ID: [id number] [facility] No Panel InformationOrdered By: aMry Ravi on 09-27-2021 [facility] Work Phone: Obtain VBG and performon [facility] POC Venous Blood Gas Panel-P ulmon 09-27-2021 Base excess Calc (BldV) [Moles/Vol] 2.2 mmol/L High [facility] CO2 (BldV) [Partial pressure] 29.5 mm[Hg] Low [facility] HCO3 (Bld) [Moles/Vol] 23.9 mmol/L Low 24.0 - 28.0 mmol/L [facility] Hematocrit (BldA) [Volume fraction] 52.3 % 41.0 - 53.0 % [facility] Hemoglobin (Bld) [Mass/Vol] 17.1 g/dL 13.5 - 17.5 g/dL [facility] Inhaled oxygen concentration 21 % [facility] Interpretation and review of laboratory results Abnormal [facility] Oxygen (BldV) [Partial pressure] 73 mm[Hg] High [facility] Oxygen saturation in Venous blood 96.8 % High 40.0 - 70.0 % [facility] pH (BldV) 7.52 [pH] High [facility] SARS-CoV-2 (COVID-19) RNA NA A+probe Ql (Resp)Ordered By: Sylvie Jessica on 09-27-2021 Interpretation and review of laboratory results Normal [facility] This test was perfor med under [...] the following links: For Healthcare Providers: https://www.fda.gov/med ia/706251/download For Patients: https://www.fda.gov/med ia/039784/download [facility] UrinalysisOrdered By: Aman Ronquillo on 09-27-2021 Bacteria Auto Ql (U) None Seen None Se en /hpf [facility] Bilirubin Ql (U) Negative Negative [facility] th Clarity Refractometry automated (U) Clear Clear [facility] Color (U) Yellow Colorless, Yellow [facility] Epithelial cells.squamous Auto (Urine sed) [#/Area] <1 [facility] Glucose Auto test strip (U) [Mass/Vol] Negative Negative mg/dL [facility] Hemoglobin Auto test strip Ql (U) Negative Negative [facility] Interpretation and review of laboratory results Abnormal [facility] Ketones (U) [Mass/Vol] Trace Abnormal Negat tracie mg/dL [facility] Leukocyte esterase Auto test strip Ql (U) Negative Negative [facility] Mucus Auto (Urine sed) [#/Area] Rare None Seen, Rare /lpf [facility] Nitrite Auto test strip Ql (U) Negative Negative [facility] pH (U) 8.5 [pH] High [facility] Protein (U) [Mass/Vol] 30 mg/dL Abnormal Negat tracie mg/dL [facility] Comment on above: False positive resul ts may occur in urines with large amounts of hemoglobin, pH greater than 8.0, contrast medium, or disinfectants including ammonium compounds. RBC Auto (Urine sed) [#/Area] 3 [facility] Specific gravity (U) [Rel density] >1.050 High [facility] Comment on above: Abnormally high spec [facility] gravity results can be the result of the presence of x-ray or radiographic contrast media or mannitol(diuretic) administration or with large amounts of protein, glucose or in cloudy specimens. Urobilinogen (U) [Mass/Vol] mg/dL <2.0 mg/dL [facility] WBC Auto (Urine sed) [#/Area] 1 [facility] Microscopic examinat ion is performed on all urinalysis samples and only positive findings are reported. The test for blood on the chemical analytic portion of urinalysis may also be positive due to hemoglobinuria and myoglobinuria and if red blood cells are present they are quantified by microscopic examination. [facility] Urine Drug Screenon 09-28-19 Amphetamines Ql (U) Not detected None Detected [facility] Comment on above: Urine Amphetamine Cu toff: < 1000 ng/mL = None Detected Barbiturates Screen Ql (U) Not detected None Detected [facility] Comment on above: Urine Barbiturates C utoff: < 200 ng/mL = None Detected Benzodiazepines Ql (U) Not detected None Detected [facility] Comment on above: Urine Benzodiazepine Cutoff: < 200 ng/mL = None Detected Buprenorphine Ql (U) Positive Abnormal None Detected [facility] Comment on above: Urine Buprenorphine Cutoff: < 5 ng/mL = None Detected Cannabinoids Screen Ql (U) Positive Abnormal None Detected [facility] Comment on above: Urine Cannabinoids C utoff: < 50 ng/mL = None Detected Cocaine Ql (U) Not detected None Detected [facility] Comment on above: Urine Cocaine Cutoff : < 300 ng/mL = None Detected fentaNYL+Norfentanyl Screen Ql (U) Positive Abnormal None Detected [facility] Comment on above: Urine Fentanyl Cutof f: < 1 ng/mL = None Detected Interpretation and review of laboratory results Abnormal [facility] Methadone Screen Ql (U) Not detected None Detected [facility] Comment on above: Urine Methadone Cuto ff: < 300 ng/mL = None Detected Opiates Screen Ql (U) Not detected None Detected [facility] Comment on above: Urine Opiates Cutoff : < 300 ng/mL = None Detected oxyCODONE Ql (U) Not detected None Detected [facility] Comment on above: Urine Oxycodone Cuto ff: < 100 ng/mL = None Detected Screen results shoul d be used for treatment purposes only. Specimen will be kept for 1 week, if the sample is adequate. Confirmation testing can be initiated by calling the lab within 1 week. [facility] Alcohol, Medicalon Ethanol [Mass/Vol] mg/dL <10.00 mg/dL [facility] Comment on above: Alcohol cutoff: <10. 00 mg/dL = None Detected Basic metabolic 2000 panelon 09-26-2021 Anion gap [Moles/Vol] 12 mmol/L 10 - 2 0 mmol/L [facility] Calcium [Mass/Vol] 10.0 mg/dL 8.4 - 10. 2 mg/dL [facility] Chloride [Moles/Vol] 108 mmol/L 98 - 10 8 mmol/L [facility] Creatinine [Mass/Vol] 0.74 mg/dL 0.50 - 1.30 [facility] GFR/1.73 sq M.predicted CKD-EPI (S/P/Bld) [Vol rate/Area] 119 >=60 mL/min/1.73 m2 [facility] Glucose [Mass/Vol] 133 mg/dL High 65 - 99 mg/dL [facility] HCO3 [Moles/Vol] 22 mmol/L 21 - 32 mmol/L [facility] Interpretation and review of laboratory results Abnormal [facility] Potassium [Moles/Vol] 3.5 mmol/L 3.5 - 5.1 mmol/L [facility] Sodium [Moles/Vol] 138 mmol/L 135 - 145 mmol/L [facility] Urea nitrogen [Mass/Vol] 9 mg/dL 8 - 25 mg/dL [facility] Urea nitrogen/Creatinine [Mass ratio] 12.2 mg/mg [facility] The eGFR should be u sed for monitoring renal function only and not for medication dosing. [facility] CBC Auto Differentialon 08-30 Basophils (Bld) [#/Vol] 0.04 10*3/uL [facility] Basophils/100 WBC (Bld) 0.3 % [facility] Eosinophils (Bld) [#/Vol] 0.04 10*3/uL [facility] Eosinophils/100 WBC (Bld) 0.3 % [facility] Erythrocyte distribution width (RBC) [Entitic vol] 12.1 % 11.6 - 14.8 % [facility] Hematocrit (Bld) [Volume fraction] 46.5 % 41.0 - 53.0 % [facility] Hemoglobin (Bld) [Mass/Vol] 16.4 g/dL 13.5 - 17.5 g/dL [facility] Immature granulocytes (Bld) [#/Vol] 0.05 10*3/uL [facility] Immature granulocytes/100 WBC (Bld) 0.40 % [facility] Comment on above: The IG parameter is the percentage of metamyelocytes, myelocytes and promyelocytes. An immature granulocyte count (IG) of 1% or more suggests the possibility of infection, an IG count of 3% is very likely related to an infection. Interpretation and review of laboratory results Abnormal [facility] Lymphocytes (Bld) [#/Vol] 1.24 10*3/uL [facility] Lymphocytes/100 WBC (Bld) 9.7 % [facility] MCH (RBC) [Entitic mass] 29.4 pg 26. 0 - 34.0 pg [facility] MCHC (RBC) [Mass/Vol] 35.3 g/dL 31.0 - 37.0 g/dL [facility] MCV (RBC) [Entitic vol] 83.3 fL 80.0 - 100.0 fL [facility] Monocytes (Bld) [#/Vol] 0.51 10*3/uL [facility] Monocytes/100 WBC (Bld) 4.0 % [facility] Neutrophils (Bld) [#/Vol] 10.91 10*3/uL High [facility] Neutrophils/100 WBC (Bld) 85.3 % [facility] Nucleated RBC (Bld) [#/Vol] 0.00 10*3/uL [facility] Nucleated RBC/100 WBC (Bld) [Ratio] 0.0 % [facility] Platelet mean volume (Bld) [Entitic vol] 8.8 fL Low 9.4 - 12.4 fL [facility] Platelets (Bld) [#/Vol] 372 10*3/uL [facility] RBC (Bld) [#/Vol] 5.58 10*6/uL [facility] WBC (Bld) [#/Vol] 12.79 10*3/uL [facility] Ethanol [Mass/Vol]on 022 Interpretation and review of laboratory results Normal [facility] CT ABDOMEN PELVIS WITH IV CO NTRAST [...] is a prominent amount of fluid within estlvisi-tm-[id number] small bowel loops measuring up to 2.9 [...] of motion. 4. No obstructive uropathy identified. [facility] Workstation ID: [id number] Dictated by: ELISHA ARTEAGA on TueJul 20, 2021 6:03:25 AM EST Transcribed by: WADE GEORGE on TueJul 20, 2021 6:10:14 AM EST Finalized by: ELISHA ARTEAGA on TueJul 20, 2021 7:01:39 AM EST Normal [facility] Comment on above: Order Comment: Injur y/Trauma or Illness?:Illness/Other How long have you had these symptoms (acute/chronic)?:Acute Reason for exam?:epigastric pain, vomiting Type of Exam?:Initial Additional signs and symptoms?:n/a Basic Metabolic Panelon 07-0 Anion gap [Moles/Vol] 12 mmol/L 10 - 2 0 mmol/L [facility] Calcium [Mass/Vol] 8.8 mg/dL 8.4 - 10. 2 mg/dL [facility] Chloride [Moles/Vol] 109 mmol/L High 98 - 10 8 mmol/L [facility] Creatinine [Mass/Vol] 0.87 mg/dL 0.50 - 1.30 [facility] GFR/1.73 sq M predicted among non-blacks MDRD (S/P/Bld) [Vol rate/Area] The eGFR should be used for monitoring renal function only and not for medication dosing. [facility] GFR/1.73 sq M.predicted CKD-EPI (S/P/Bld) [Vol rate/Area] 113 >=60 mL/min/1.73 m2 [facility] Glucose [Mass/Vol] 109 mg/dL High 65 - 99 mg/dL [facility] HCO3 [Moles/Vol] 25 mmol/L 21 - 32 mmol/L [facility] Potassium [Moles/Vol] 3.6 mmol/L 3.5 - 5.1 mmol/L [facility] Sodium [Moles/Vol] 142 mmol/L 135 - 145 mmol/L [facility] Urea nitrogen [Mass/Vol] 8 mg/dL 8 - 25 mg/dL [facility] Urea nitrogen/Creatinine [Mass ratio] 9.2 mg/mg Low [facility] CBC WITH AUTO DIFFERENTIALon 12-04-2019 Basophils (Bld) [#/Vol] 0.03 10*3/uL [facility] Basophils/100 WBC (Bld) 0.3 % [facility] Eosinophils (Bld) [#/Vol] 0.01 10*3/uL [facility] Eosinophils/100 WBC (Bld) 0.1 % [facility] Erythrocyte distribution width (RBC) [Entitic vol] 12.2 % 11.6 - 14.8 % [facility] Hematocrit (Bld) [Volume fraction] 44.1 % 41 - 53 % [facility] Hemoglobin (Bld) [Mass/Vol] 15.2 g/dL 13.5 - 17.5 g/dL [facility] Immature granulocytes (Bld) [#/Vol] 0.06 10*3/uL [facility] Immature granulocytes/100 WBC (Bld) 0.50 % [facility] Comment on above: The IG parameter is the percentage of metamyelocytes, myelocytes and promyelocytes. An immature granulocyte count (IG) of 1% or more suggests the possibility of infection, an IG count of 3% is very likely related to an infection. Lymphocytes (Bld) [#/Vol] 1.27 10*3/uL [facility] Lymphocytes/100 WBC (Bld) 10.7 % [facility] MCH (RBC) [Entitic mass] 29.0 pg 26 - 34 pg [facility] MCHC (RBC) [Mass/Vol] 34.5 g/dL 31 - 3 7 g/dL [facility] MCV (RBC) [Entitic vol] 84.0 fL 80 - 100 fL [facility] Monocytes (Bld) [#/Vol] 0.74 10*3/uL [facility] Monocytes/100 WBC (Bld) 6.2 % [facility] Neutrophils (Bld) [#/Vol] 9.79 10*3/uL High [facility] Neutrophils/100 WBC (Bld) 82.2 % [facility] Nucleated RBC (Bld) [#/Vol] 0.00 10*3/uL [facility] Nucleated RBC/100 WBC (Bld) [Ratio] 0.0 % [facility] Platelet mean volume (Bld) [Entitic vol] 8.6 fL Low 9.4 - 12.4 fL [facility] Platelets (Bld) [#/Vol] 356 10*3/uL [facility] RBC (Bld) [#/Vol] 5.25 10*6/uL [facility] WBC (Bld) [#/Vol] 11.90 10*3/uL [facility] Magnesiumon 12-04-2019 Interpretation and review of laboratory results Normal [facility] Magnesium [Mass/Vol] 1.7 mg/dL 1.6 - 2 .4 mg/dL [facility] Otheron 12-04-2019 Interpretation and review of laboratory results Abnormal [facility] Alcohol, Medicalon 0 Ethanol [Mass/Vol] mg/dL <10.00 mg/dL [facility] Comment on above: Alcohol cutoff: <10. 00 mg/dL = None Detected Interpretation and review of laboratory results Normal [facility] CBC WITH AUTO DIFFERENTIALon 12-03-2019 Basophils (Bld) [#/Vol] 0.03 10*3/uL [facility] Basophils/100 WBC (Bld) 0.2 % [facility] Eosinophils (Bld) [#/Vol] 0.04 10*3/uL [facility] Eosinophils/100 WBC (Bld) 0.3 % [facility] Erythrocyte distribution width (RBC) [Entitic vol] 12.0 % 11.6 - 14.8 % [facility] Hematocrit (Bld) [Volume fraction] 49.3 % 41 - 53 % [facility] Hemoglobin (Bld) [Mass/Vol] 17.0 g/dL 13.5 - 17.5 g/dL [facility] Immature granulocytes (Bld) [#/Vol] 0.04 10*3/uL [facility] Immature granulocytes/100 WBC (Bld) 0.30 % [facility] Comment on above: The IG parameter is the percentage of metamyelocytes, myelocytes and promyelocytes. An immature granulocyte count (IG) of 1% or more suggests the possibility of infection, an IG count of 3% is very likely related to an infection. Interpretation and review of laboratory results Abnormal [facility] Lymphocytes (Bld) [#/Vol] 1.41 10*3/uL [facility] Lymphocytes/100 WBC (Bld) 11.2 % [facility] MCH (RBC) [Entitic mass] 29.5 pg 26 - 34 pg [facility] MCHC (RBC) [Mass/Vol] 34.5 g/dL 31 - 3 7 g/dL [facility] MCV (RBC) [Entitic vol] 85.4 fL 80 - 100 fL [facility] Monocytes (Bld) [#/Vol] 0.47 10*3/uL [facility] Monocytes/100 WBC (Bld) 3.7 % [facility] Neutrophils (Bld) [#/Vol] 10.65 10*3/uL High [facility] Neutrophils/100 WBC (Bld) 84.3 % [facility] Nucleated RBC (Bld) [#/Vol] 0.00 10*3/uL [facility] Nucleated RBC/100 WBC (Bld) [Ratio] 0.0 % [facility] Platelet mean volume (Bld) [Entitic vol] 8.6 fL Low 9.4 - 12.4 fL [facility] Platelets (Bld) [#/Vol] 391 10*3/uL [facility] RBC (Bld) [#/Vol] 5.77 10*6/uL [facility] WBC (Bld) [#/Vol] 12.64 10*3/uL [facility] COVID-19, Molecularon 2019 Interpretation and review of laboratory results Normal [facility] SARS-CoV-2 Not Detected Not Detected [facility] Comment on above: This test was [...] at the following links: For Healthcare Providers: https://www.[employer].gov/media/040608/download For Patients: https://www.[employer].gov/media/731432/download CT Abdomen Pelvis With IV Co ntrast [...] patent. No acute osseous lesions are identified. [facility], Rad In Fu ji Speechq - 12/03/2019 [...] collection. 3. Normal appendix and no adenopathy. [employer] Workstation ID: [id number] [facility] 1. No acute abdomina l or pelvic inflammatory process. 2. Trace pelvic free fluid of uncertain significance. No fluid collection. 3. Normal appendix and no adenopathy. [employer] Workstation ID: [id number] [facility] Comprehensive Metabolic Pane heriberto 12-03-2019 Albumin [Mass/Vol] 4.1 g/dL 3.2 - 5.2 g/dL [facility] ALP [Catalytic activity/Vol] 112 U/L 40 - 140 U/L [facility] ALT [Catalytic activity/Vol] 26 U/L 14 - 65 U/L [facility] Anion gap [Moles/Vol] 16 mmol/L 10 - 2 0 mmol/L [facility] AST [Catalytic activity/Vol] 28 U/L 0 - 45 U/L [facility] Comment on above: moderate hemolysis, result may be falsely increased. Bilirubin [Mass/Vol] 0.8 mg/dL 0 - 1.3 mg/dL [facility] Calcium [Mass/Vol] 9.6 mg/dL 8.4 - 10. 2 mg/dL [facility] Chloride [Moles/Vol] 104 mmol/L 98 - 10 8 mmol/L [facility] Creatinine [Mass/Vol] 1.03 mg/dL 0.50 - 1.30 [facility] GFR/1.73 sq M predicted among non-blacks MDRD (S/P/Bld) [Vol rate/Area] The eGFR should be used for monitoring renal function only and not for medication dosing. [facility] GFR/1.73 sq M.predicted CKD-EPI (S/P/Bld) [Vol rate/Area] 94 >=60 mL/min/1.73 m2 [facility] Glucose [Mass/Vol] 112 mg/dL High 65 - 99 mg/dL [facility] HCO3 [Moles/Vol] 26 mmol/L 21 - 32 mmol/L [facility] Interpretation and review of laboratory results Abnormal [facility] Potassium [Moles/Vol] 4.1 mmol/L 3.5 - 5.1 mmol/L [facility] Comment on above: moderate hemolysis, result may be falsely increased. Protein [Mass/Vol] 8.8 g/dL High 6 - 8 g/dL [facility] Sodium [Moles/Vol] 142 mmol/L 135 - 145 mmol/L [facility] Urea nitrogen [Mass/Vol] 5 mg/dL Low 8 - 25 mg/dL [facility] Urea nitrogen/Creatinine [Mass ratio] 4.9 mg/mg Low [facility] DRUGS OF ABUSE SCREEN, URINE on 12-03-2019 Amphetamines Ql (U) None Detected None Detected [facility] Comment on above: Urine Amphetamine Cu toff: < 1000 ng/mL = None Detected Barbiturates Screen Ql (U) None Detected None Detected [facility] Comment on above: Urine Barbiturates C utoff: < 200 ng/mL = None Detected Benzodiazepines Ql (U) None Detected None Detected [facility] Comment on above: Urine Benzodiazepine Cutoff: < 200 ng/mL = None Detected Cannabinoids Screen Ql (U) Positive Abnormal None Detected [facility] Comment on above: Urine Cannabinoids C utoff: < 50 ng/mL = None Detected Cocaine Ql (U) None Detected None Detected [facility] Comment on above: Urine Cocaine Cutoff : < 300 ng/mL = None Detected Interpretation and review of laboratory results Abnormal [facility] Methadone Screen Ql (U) None Detected Non e Detected [facility] Comment on above: Urine Methadone Cuto ff: < 300 ng/mL = None Detected Opiates Screen Ql (U) Positive Abnormal None Detected [facility] Comment on above: Urine Opiates Cutoff : < 300 ng/mL = None Detected Oxycodone Ql (U) None Detected None Detected [facility] Comment on above: Urine Oxycodone Cuto ff: < 100 ng/mL = None Detected Screen results shoul d be used for treatment purposes only. Specimen will be kept for 1 week, if the sample is adequate. Confirmation testing can be initiated by calling the lab within 1 week. [facility] Lipaseon 12-03-2019 Interpretation and review of laboratory results Normal [facility] Lipase [Catalytic activity/Vol] 74 U/L 73 - 393 U/L [facility] Otheron 12-03-2019 Extra Tube Hold for add-ons. [facility] Comment on above: Auto resulted. URINALYSISon 12-03-2019 Bacteria Auto Ql (U) None Seen None Se en /hpf [facility] Bilirubin Ql (U) Negative Negative [facility] Clarity Refractometry automated (U) Clear Clear [facility] Color (U) Yellow Colorless, Yellow [facility] Glucose Auto test strip (U) [Mass/Vol] Negative Negative mg/dL [facility] Hemoglobin Auto test strip Ql (U) Negative Negative [facility] Interpretation and review of laboratory results Abnormal [facility] Ketones (U) [Mass/Vol] Trace Abnormal Negat tracie mg/dL [facility] Leukocyte esterase Auto test strip Ql (U) Negative Negative [facility] Mucus Auto (Urine sed) [#/Area] Rare None Seen, Rare /lpf [facility] Nitrite Auto test strip Ql (U) Negative Negative [facility] pH (U) 9.0 [pH] High [facility] Protein (U) [Mass/Vol] 30 Abnormal Negat tracie mg/dL [facility] Comment on above: False positive resul ts may occur in urines with large amounts of hemoglobin, pH greater than 8.0, contrast medium, or disinfectants including ammonium compounds. RBC Auto (Urine sed) [#/Area] <1 [facility] Specific gravity (U) [Rel density] 1.029 High [facility] Urobilinogen (U) [Mass/Vol] <2.0 <2.0 mg/dL [facility] WBC Auto (Urine sed) [#/Area] <1 [facility] Microscopic examinat ion is performed on all urinalysis samples and only positive findings are reported. The test for blood on the chemical analytic portion of urinalysis may also be positive due to hemoglobinuria and myoglobinuria and if red blood cells are present they are quantified by microscopic examination. [facility] CT Abdomen Pelvis With IV Co [...] 2. Right renal cyst. Workstation ID: [id number] [facility] EXAMINATION: CT ABDO MEN WITH CONTRAST [...] pelvis. The imaged axial skeleton appears intact. [facility] 1. Small bowel wall thickening and enhancement consistent with enteritis. Negative for bowel obstruction or pneumatosis. No other acute findings are seen in the abdomen or pelvis. 2. Right renal cyst. Workstation ID: [id number] [facility] Comprehensive Metabolic Pane heriberto 11-18-2019 Albumin [Mass/Vol] 5.0 g/dL 3.2 - 5.2 g/dL [facility] ALP [Catalytic activity/Vol] 139 U/L 40 - 140 U/L [facility] ALT [Catalytic activity/Vol] 30 U/L 14 - 65 U/L [facility] Anion gap [Moles/Vol] 11 mmol/L 10 - 2 0 mmol/L [facility] AST [Catalytic activity/Vol] 22 U/L 0 - 45 U/L [facility] Bilirubin [Mass/Vol] 0.7 mg/dL 0 - 1.3 mg/dL [facility] Calcium [Mass/Vol] 10.6 mg/dL High 8.4 - 10. 2 mg/dL [facility] Chloride [Moles/Vol] 99 mmol/L 98 - 10 8 mmol/L [facility] Creatinine [Mass/Vol] 1.19 mg/dL 0.50 - 1.30 [facility] GFR/1.73 sq M predicted among non-blacks MDRD (S/P/Bld) [Vol rate/Area] The eGFR should be used for monitoring renal function only and not for medication dosing. [facility] GFR/1.73 sq M.predicted CKD-EPI (S/P/Bld) [Vol rate/Area] 79 >=60 mL/min/1.73 m2 [facility] Glucose [Mass/Vol] 123 mg/dL High 65 - 99 mg/dL [facility] HCO3 [Moles/Vol] 30 mmol/L 21 - 32 mmol/L [facility] Potassium [Moles/Vol] 4.3 mmol/L 3.5 - 5.1 mmol/L [facility] Protein [Mass/Vol] 10.5 g/dL High 6 - 8 g/dL [facility] Sodium [Moles/Vol] 136 mmol/L 135 - 145 mmol/L [facility] Urea nitrogen [Mass/Vol] 13 mg/dL 8 - 25 mg/dL [facility] Urea nitrogen/Creatinine [Mass ratio] 10.9 mg/mg [facility] Lipaseon 11-18-2019 Lipase [Catalytic activity/Vol] 63 U/L Low 73 - 393 U/L [facility] Otheron 11-18-2019 Interpretation and review of laboratory results Abnormal [facility] PT/INRon 11-18-2019 INR Coag (PPP) [Relative time] 1.1 {INR} [facility] Interpretation and review of laboratory results Normal [facility] PT Coag (PPP) [Time] 13.5 s [facility] During the induction phase of oral anticoagulation, the INR may not reflect the anticoagulation status of the patient. Therapeutic ranges for INR's are: Most clinical situations: INR 2.0-3.0 Mechanical Prosthetic Valve: INR 2.5-3.5 Critical: INR >5.0 [facility] CBC WITH AUTO DIFFERENTIALon 11-17-2019 Basophils (Bld) [#/Vol] 0.03 10*3/uL [facility] Basophils/100 WBC (Bld) 0.3 % [facility] Eosinophils (Bld) [#/Vol] 0.02 10*3/uL [facility] Eosinophils/100 WBC (Bld) 0.2 % [facility] Erythrocyte distribution width (RBC) [Entitic vol] 12.8 % 11.6 - 14.8 % [facility] Hematocrit (Bld) [Volume fraction] 56.1 % High 41 - 53 % [facility] Hemoglobin (Bld) [Mass/Vol] 18.7 g/dL High 13.5 - 17.5 g/dL [facility] Immature granulocytes (Bld) [#/Vol] 0.03 10*3/uL [facility] Immature granulocytes/100 WBC (Bld) 0.30 % [facility] Comment on above: The IG parameter is the percentage of metamyelocytes, myelocytes and promyelocytes. An immature granulocyte count (IG) of 1% or more suggests the possibility of infection, an IG count of 3% is very likely related to an infection. Interpretation and review of laboratory results Abnormal [facility] Lymphocytes (Bld) [#/Vol] 0.87 10*3/uL Low [facility] Lymphocytes/100 WBC (Bld) 8.4 % [facility] MCH (RBC) [Entitic mass] 28.9 pg 26 - 34 pg [facility] MCHC (RBC) [Mass/Vol] 33.3 g/dL 31 - 3 7 g/dL [facility] MCV (RBC) [Entitic vol] 86.6 fL 80 - 100 fL [facility] Monocytes (Bld) [#/Vol] 0.32 10*3/uL [facility] Monocytes/100 WBC (Bld) 3.1 % [facility] Neutrophils (Bld) [#/Vol] 9.08 10*3/uL High [facility] Neutrophils/100 WBC (Bld) 87.7 % [facility] Nucleated RBC (Bld) [#/Vol] 0.00 10*3/uL [facility] Nucleated RBC/100 WBC (Bld) [Ratio] 0.0 % [facility] Platelet mean volume (Bld) [Entitic vol] 8.3 fL Low 9.4 - 12.4 fL [facility] Platelets (Bld) [#/Vol] 419 10*3/uL High [facility] RBC (Bld) [#/Vol] 6.48 10*6/uL High [facility] WBC (Bld) [#/Vol] 10.35 10*3/uL [facility] COVID-19, Molecularon 2019 Interpretation and review of laboratory results Normal [facility] SARS-CoV-2 Not Detected Not Detected [facility] Comment on above: This test was [...] at the following links: For Healthcare Providers: https://www.fda.gov/media/959317/download For Patients: https://www.fda.gov/media/858012/download XR HAND LEFT 3+ VIEWSon 04 IMPRESSION: No fract ure seen. [facility] EXAMINATION: X-ray l eft hand HISTORY: Pain after recent injury. COMPARISON: None. TECHNIQUE: 3 views FINDINGS: The bones are normally mineralized. No fracture is seen. 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 There is no joint dislocation or bone destruction. Mild swelling is present. [employer] User, Interfaces - 09/26/2018 6:35 PM EDT EXAMINATION: X-ray left hand HISTORY: Pain after recent injury. COMPARISON: None. TECHNIQUE: 3 views FINDINGS: The bones are normally mineralized. No fracture is seen. 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 There is no joint dislocation or bone destruction. Mild swelling is present. IMPRESSION IMPRESSION: No fracture seen. [facility] Culture, urine Bacteria identified Cx Nom (U) Positive [facility] Work Phone: Hemoglobin.gastrointestinal Ql (Maryanne fld) Gastric Occult Blood Positive [facility] Work Phone: No Panel Information Influenza Types A,B Direct FA (CECILIA) [facility] Work Phone: Vital Signs Date Time Vital Sign Value Performing Clinician Facility 11-26-2024 15:58-0400 Diastolic blood pressure 80 mm[Hg] Favian Robles RN Work Phone: [facility] Work Phone: 11-26-2024 15:58-0400 Heart rate 78 /min Favian Robles RN Work Phone: [facility] Work Phone: 11-26-2024 15:58-0400 Respiratory rate 16 /min Favian Robles RN Work Phone: Count Includes [facility] Work Phone: 11-26-2024 15:58-0400 SaO2% (BldA) [Mass fraction] 98 % Favian Robles RN Work Phone: [facility] Includes [facility] Work Phone: 11-26-2024 15:58-0400 Systolic blood pressure 115 mm[Hg] Favian Robles RN Work Phone: [facility] Includes [facility] Work Phone: 11-12-2024 15:43-0400 Diastolic blood pressure 80 mm[Hg] Allan Elizabeth MD Work Phone: [facility] Includes [facility] [employer] Work Phone: 11-12-2024 15:43-0400 Heart rate 79 /min Allan Elizabeth MD Work Phone: [facility] Includes [facility] Work Phone: 11-12-2024 15:43-0400 Respiratory rate 16 /min Allan Elizabeth MD Work Phone: Count Includes [facility] [employer] Work Phone: 11-12-2024 15:43-0400 SaO2% (BldA) [Mass fraction] 99 % Allan Elizabeth MD Work Phone: [facility] Includes [facility] Work Phone: 11-12-2024 15:43-0400 Systolic blood pressure 110 mm[Hg] Allan Elizabeth MD Work Phone: [facility] Includes [facility] Work Phone: 10-31-2024 16:12-0400 Diastolic blood pressure 70 mm[Hg] Allan Elizabeth MD Work Phone: [facility] Includes [facility] Work Phone: 10-31-2024 16:12-0400 Heart rate 77 /min Allan Elizabeth MD Work Phone: [facility] Work Phone: 10-31-2024 16:12-0400 Respiratory rate 16 /min Allan Elizabeth MD Work Phone: [facility] Work Phone: 10-31-2024 16:12-0400 SaO2% (BldA) [Mass fraction] 96 % Allan Elizabeth MD Work Phone: [facility] Work Phone: 10-31-2024 16:12-0400 Systolic blood pressure 100 mm[Hg] Allan Elizabeth MD Work Phone: [facility] Work Phone: 09-03-2024 22:40-0400 Body temperature 98.2 [degF] Dr. Chemo Dunlap DO Work Phone: [facility] 09-03-2024 22:40-0400 Diastolic blood pressure 59 mm[Hg] Dr. Chemo Dunlap DO Work Phone: [facility] 09-03-2024 22:40-0400 Heart rate 91 /min Dr. Chemo Dunlap DO Work Phone: [facility] 09-03-2024 22:40-0400 Respiratory rate 18 /min Dr. Chemo Dunlap DO Work Phone: [facility] 09-03-2024 22:40-0400 SaO2% (BldA) [Mass fraction] 96 % Dr. Chemo Dunlap DO Work Phone: [facility] 09-03-2024 22:40-0400 Systolic blood pressure 139 mm[Hg] Dr. Chemo Dunlap DO Work Phone: [facility] 09-03-2024 19:07-0400 Body height 175.[address] Chemo Dunlap DO Work Phone: [facility] 09-03-2024 19:07-0400 Body mass index (BMI) [Ratio] 27.5 kg/m2 Dr. Chemo Dunlap DO Work Phone: 8(493)249-903873 [place] [address] 09-03-2024 19:07-0400 Body weight 84.[address] Chemo Dunlap DO Work Phone: 7(126)478-805673 [place] [address] 09-01-2024 13:51-0400 Body temperature 97.9 [degF] Dr. Chemo Dunlap DO Work Phone: 8(958)737-016073 [place] [address] 09-01-2024 13:51-0400 Diastolic blood pressure 102 mm[Hg] Dr. Chemo Dunlap DO Work Phone: 9(996)007-413954 [place] [address] 09-01-2024 13:51-0400 Heart rate 85 /min Dr. Chemo Dunlap DO Work Phone: 6(869)058-324554 [place] [address] 09-01-2024 13:51-0400 Respiratory rate 22 /min Dr. Chemo Dunlap DO Work Phone: 4(433)[phone] [place] [address] 09-01-2024 13:51-0400 SaO2% (BldA) [Mass fraction] 96 % Dr. Chemo Dunlap DO Work Phone: 7(290)022-807673 [place] [address] 09-01-2024 13:51-0400 Systolic blood pressure 148 mm[Hg] Dr. Chemo Dunlap DO Work Phone: 7(078)822-867273 [place] [address] 09-01-2024 10:15-0400 Body mass index (BMI) [Ratio] 26.9 kg/m2 Dr. Chemo Dunlap DO Work Phone: 9([phone])787-505273 [place] [address] 09-01-2024 10:15-0400 Body weight 82.[address] Chemo Dunlap DO Work Phone: 6(279)926-307873 [place] [address] 09-01-2024 10:11-0400 Body height 175.[address] Chemo Dunlap DO Work Phone: [facility] 08-14-2024 11:45-0400 Heart rate 104 /min Edgar Powers MD Work Phone: [facility] [employer] 08-14-2024 11:45-0400 Respiratory rate 16 /min Edgar Powers MD Work Phone: [facility] [employer] 08-14-2024 11:45-0400 SaO2% (BldA) [Mass fraction] 99 % Edgar Powers MD Work Phone: [facility] [employer] 08-14-2024 11:32-0400 Diastolic blood pressure 99 mm[Hg] Edgar Powers MD Work Phone: [facility] [employer] 08-14-2024 11:32-0400 Systolic blood pressure 143 mm[Hg] Edgar Powers MD Work Phone: [facility] [employer] 08-13-2024 09:37-0400 Body temperature 96.6 [degF] Edgar Powers MD Work Phone: [facility] [employer] 08-13-2024 09:33-0400 Body height 175.3 cm Edgar Powers MD Work Phone: [facility] [employer] 08-13-2024 09:33-0400 Body mass index (BMI) [Ratio] 27.32 kg/m2 Edgar Powers MD Work Phone: [facility] [employer] 08-13-2024 09:33-0400 Body weight 83.92 kg Edgar Powers MD Work Phone: [employer] 04-11-2024 04:30-0500 Body temperature 99.3 [degF] James Neil MD Work Phone: [employer] 04-11-2024 04:30-0500 Diastolic blood pressure 77 mm[Hg] James Neil MD Work Phone: [employer] 04-11-2024 04:30-0500 Heart rate 72 /min James Neil MD Work Phone: [employer] 04-11-2024 04:30-0500 Respiratory rate 16 /min James Neil MD Work Phone: [facility] 04-11-2024 04:30-0500 SaO2% (BldA) [Mass fraction] 99 % James Neil MD Work Phone: [facility] 04-11-2024 04:30-0500 Systolic blood pressure 133 mm[Hg] James Neil MD Work Phone: [facility] 04-11-2024 00:49-0500 Body height 175.3 cm James Neil MD Work Phone: [facility] 04-11-2024 00:49-0500 Body mass index (BMI) [Ratio] 29.53 kg/m2 James Neil MD Work Phone: [facility] 04-11-2024 00:49-0500 Body weight 90.72 kg James Neil MD Work Phone: [facility] 11-08-2023 19:31-0400 Diastolic blood pressure 103 mm[Hg] Marc Lainez DO Work Phone: [facility] 11-08-2023 19:31-0400 Heart rate 108 /min Marc [employer] DO Work Phone: [facility] 11-08-2023 19:31-0400 Respiratory rate 15 /min Marc Lainez DO Work Phone: [facility] 11-08-2023 19:31-0400 SaO2% (BldA) [Mass fraction] 98 % Marc Lainez DO Work Phone: [facility] 11-08-2023 19:31-0400 Systolic blood pressure 154 mm[Hg] Marc Emersonbour DO Work Phone: [facility] 11-08-2023 04:08-0400 Body temperature 99.1 [degF] Marc Lainez DO Work Phone: [facility] 11-07-2023 18:42-0400 Body height 175.3 cm Marc Lainez DO Work Phone: [facility] 11-07-2023 18:42-0400 Body mass index (BMI) [Ratio] 26.58 kg/m2 Marc Lainez DO Work Phone: [facility] 11-07-2023 18:42-0400 Body weight 81.65 kg Marc Lainez DO Work Phone: [employer] 10-29-2023 07:32-0400 Diastolic blood pressure 88 mm[Hg] James Neil MD Work Phone: [employer] 10-29-2023 07:32-0400 Heart rate 82 /min James Neil MD Work Phone: [employer] 10-29-2023 07:32-0400 SaO2% (BldA) [Mass fraction] 99 % James Neil MD Work Phone: [facility] [employer] 10-29-2023 07:32-0400 Systolic blood pressure 119 mm[Hg] James Neil MD Work Phone: [facility] 10-29-2023 07:32-0400 Body temperature 98.4 [degF] James Neil MD Work Phone: [employer] 10-29-2023 07:32-0400 Respiratory rate 16 /min James Neil MD Work Phone: [facility] 10-25-2023 13:56-0400 Body height 175.3 cm James Neil MD Work Phone: [facility] 10-25-2023 13:56-0400 Body mass index (BMI) [Ratio] 27.32 kg/m2 James Neil MD Work Phone: [facility] 10-25-2023 13:56-0400 Body weight 83.92 kg James Neil MD Work Phone: [facility] 09-26-2023 10:28-0400 Body temperature 98.4 [degF] Radha Batista MARINE SCIENTIST - [employer]PERVISOR Work Phone: [employer] 09-26-2023 10:28-0400 Diastolic blood pressure 84 mm[Hg] Radha Batista MARINE SCIENTIST - [employer] E[employer]ELING SUPERVISOR Work Phone: [employer] 09-26-2023 10:28-0400 Heart rate 112 /min Radha Roldan MARINE SCIENTIST - [employer]ELING SUPERVISOR Work Phone: [facility] 09-26-2023 10:28-0400 SaO2% (BldA) [Mass fraction] 100 % Radha Roldan MARINE SCIENTIST - [employer]ELING SUPERVISOR Work Phone: [facility] 09-26-2023 10:28-0400 Systolic blood pressure 120 mm[Hg] Radha Roldan MARINE SCIENTIST - [employer] E[employer]ELING SUPERVISOR Work Phone: [facility] 08-29-2023 17:46-0400 Body height 175.3 cm Geneva Caldera MARINE SCIENTIST.FORESTRY BIOLOGY SPECIALIST Work Phone: [facility] 08-29-2023 17:46-0400 Body temperature 98.49 [degF] Geneva Caldera MARINE SCIENTIST.FORESTRY BIOLOGY SPECIALIST Work Phone: [facility] 08-29-2023 17:46-0400 Body weight 87.55 kg Geneva Caldera MARINE SCIENTIST.FORESTRY BIOLOGY SPECIALIST Work Phone: [facility] [place] 08-29-2023 17:46-0400 Diastolic blood pressure 85 mm[Hg] Geneva Caldera MARINE SCIENTIST.FORESTRY BIOLOGY SPECIALIST Work Phone: [facility] 08-29-2023 17:46-0400 Heart rate 94 /min Geneva Caldera MARINE SCIENTIST.FORESTRY BIOLOGY SPECIALIST Work Phone: [facility] 08-29-2023 17:46-0400 Respiratory rate 16 /min Geneva Caldera MARINE SCIENTIST.FORESTRY BIOLOGY SPECIALIST Work Phone: [facility] 08-29-2023 17:46-0400 SaO2% (BldA) [Mass fraction] 96 % Geneva Caldera MARINE SCIENTIST.FORESTRY BIOLOGY SPECIALIST Work Phone: [facility] 08-29-2023 17:46-0400 Systolic blood pressure 154 mm[Hg] Geneva Caldera MARINE SCIENTIST.FORESTRY BIOLOGY SPECIALIST Work Phone: [facility] 08-22-2023 22:23-0400 Body temperature 98.29 [degF] Marc Lainez DO Work Phone: [facility] 08-22-2023 22:23-0400 Diastolic blood pressure 77 mm[Hg] Marc Lainez DO Work Phone: [facility] 08-22-2023 22:23-0400 Heart rate 91 /min Marc Lainez DO Work Phone: [facility] 08-22-2023 22:23-0400 Respiratory rate 14 /min Marc Lainez DO Work Phone: [facility] 08-22-2023 22:23-0400 SaO2% (BldA) [Mass fraction] 98 % Marc Lainez DO Work Phone: [facility] 08-22-2023 22:23-0400 Systolic blood pressure 109 mm[Hg] Marc Lainez DO Work Phone: [facility] 06-07-2023 08:13-0500 Body temperature 98.2 [degF] James Neil MD Work Phone: [facility] 06-07-2023 08:13-0500 Diastolic blood pressure 77 mm[Hg] James Neil MD Work Phone: [facility] 06-07-2023 08:13-0500 Heart rate 74 /min James Neil MD Work Phone: [facility] 06-07-2023 08:13-0500 Respiratory rate 20 /min James Neil MD Work Phone: [facility] 06-07-2023 08:13-0500 SaO2% (BldA) [Mass fraction] 94 % James Neil MD Work Phone: [facility] 06-07-2023 08:13-0500 Systolic blood pressure 106 mm[Hg] James Neil MD Work Phone: [facility] 06-06-2023 18:33-0500 Body mass index (BMI) [Ratio] 29.53 kg/m2 James Neil MD Work Phone: [facility] 06-06-2023 18:33-0500 Body weight 90.72 kg James Neil MD Work Phone: [facility] 05-28-2023 06:30-0500 Body temperature 98.1 [degF] Fabiola Knox DO Work Phone: [employer] 05-28-2023 06:30-0500 Diastolic blood pressure 76 mm[Hg] Fabiola Knox DO Work Phone: [facility] [employer] 05-28-2023 06:30-0500 Heart rate 79 /min Fabiola Knox DO Work Phone: [facility] [employer] 05-28-2023 06:30-0500 Respiratory rate 13 /min Fabiola Knox DO Work Phone: [employer] 05-28-2023 06:30-0500 SaO2% (BldA) [Mass fraction] 96 % Fabiola Knox DO Work Phone: [facility] [employer] 05-28-2023 06:30-0500 Systolic blood pressure 110 mm[Hg] Fabiola Knox DO Work Phone: [facility] [employer] 03-08-2023 18:56-0400 Body height 175.3 cm Alex Santiago MD Work Phone: [facility] [employer] 03-08-2023 18:56-0400 Body mass index (BMI) [Ratio] 28.06 kg/m2 Alex Santiago MD Work Phone: [facility] [employer] 03-08-2023 18:56-0400 Body temperature 98.6 [degF] Alex Santiago MD Work Phone: [facility] [employer] 03-08-2023 18:56-0400 Body weight 86.18 kg Alex Santiago MD Work Phone: [facility] [employer] 03-08-2023 18:56-0400 Diastolic blood pressure 71 mm[Hg] lAex Santiago MD Work Phone: [facility] [employer] 03-08-2023 18:56-0400 Heart rate 108 /min Alex Santiago MD Work Phone: [facility] [employer] 03-08-2023 18:56-0400 Respiratory rate 16 /min Alex Santiago MD Work Phone: [facility] 03-08-2023 18:56-0400 SaO2% (BldA) [Mass fraction] 96 % Alex Santiago MD Work Phone: [facility] 03-08-2023 18:56-0400 Systolic blood pressure 131 mm[Hg] Alex Santiago MD Work Phone: [facility] 02-23-2023 17:30-0400 Body temperature 98.2 [degF] Alex Santiago MD Work Phone: [facility] 02-23-2023 17:30-0400 Diastolic blood pressure 74 mm[Hg] Alex Santiago MD Work Phone: [facility] 02-23-2023 17:30-0400 Heart rate 91 /min Alex Santiago MD Work Phone: [facility] 02-23-2023 17:30-0400 Respiratory rate 16 /min Alex Santiago MD Work Phone: [facility] 02-23-2023 17:30-0400 SaO2% (BldA) [Mass fraction] 100 % Alex Santiago MD Work Phone: [facility] 02-23-2023 17:30-0400 Systolic blood pressure 117 mm[Hg] Alex Santiago MD Work Phone: [facility] 09-28-2022 10:35-0400 Body height 175.26 cm No Primary Care Physician [facility] 09-28-2022 10:35-0400 Body mass index (BMI) [Ratio] 27.4 kg/m2 No Primary Care Physician [facility] 09-28-2022 10:35-0400 Body temperature 98.2 [degF] No Primary Care Physician [facility] 09-28-2022 10:35-0400 Body weight 84.36 kg No Primary Care Physician [facility] 09-28-2022 10:35-0400 Diastolic blood pressure 86 mm[Hg] No Primary Care Physician [facility] 09-28-2022 10:35-0400 Heart rate 95 /min No Primary Care Physician [facility] 09-28-2022 10:35-0400 Respiratory rate 18 /min No Primary Care Physician [facility] 09-28-2022 10:35-0400 SaO2% (BldA) [Mass fraction] 97 % No Primary Care Physician [facility] 09-28-2022 10:35-0400 Systolic blood pressure 136 mm[Hg] No Primary Care Physician [facility] 06-04-2022 09:30-0500 Respiratory rate 18 /min Charlie Johnson MD Work Phone: [facility] 06-04-2022 08:12-0500 Body temperature 99.3 [degF] Charlie Johnson MD Work Phone: [facility] 06-04-2022 08:12-0500 Diastolic blood pressure 98 mm[Hg] Charlie Johnson MD Work Phone: [facility] 06-04-2022 08:12-0500 Heart rate 88 /min Charlie Johnson MD Work Phone: [facility] 06-04-2022 08:12-0500 SaO2% (BldA) [Mass fraction] 94 % Charlie Johnson MD Work Phone: [facility] 06-04-2022 08:12-0500 Systolic blood pressure 142 mm[Hg] Charlie Johnson MD Work Phone: [facility] 06-01-2022 11:15-0500 SaO2% (BldA) [Mass fraction] 94.0 % Charlie Johnson MD Work Phone: [facility] 06-01-2022 03:48-0500 SaO2% (BldA) [Mass fraction] 94.0 % Charlie Johnson MD Work Phone: [facility] 05-31-2022 08:06-0500 Body height 175.3 cm Charlie Johnson MD Work Phone: [facility] 05-31-2022 08:06-0500 Body mass index (BMI) [Ratio] 29.24 kg/m2 Charlie Johnson MD Work Phone: [facility] 05-31-2022 08:06-0500 Body weight 89.8 kg Charlie Johnson MD Work Phone: [facility] 05-13-2022 23:05-0500 Heart rate 86 /min Jayant Trimble MD Work Phone: [facility] 05-13-2022 23:05-0500 SaO2% (BldA) [Mass fraction] 96 % Jayant Trimble MD Work Phone: [facility] 05-13-2022 21:57-0500 Diastolic blood pressure 77 mm[Hg] Jayant Trimble MD Work Phone: [facility] 05-13-2022 21:57-0500 Systolic blood pressure 132 mm[Hg] Jayant Trimble MD Work Phone: [facility] 05-13-2022 21:03-0500 Respiratory rate 22 /min Jayant Trimble MD Work Phone: [facility] 05-13-2022 20:38-0500 Body height 175.3 cm Jayant Trimble MD Work Phone: [facility] 05-13-2022 20:37-0500 Body temperature 98.2 [degF] Jayant Trimble MD Work Phone: [facility] 04-26-2022 09:10-0500 Body temperature 98.2 [degF] No Primary Care Physician [facility] Work Phone: 04-26-2022 09:10-0500 Diastolic blood pressure 96 mm[Hg] No Primary Care Physician [facility] Work Phone: 04-26-2022 09:10-0500 Heart rate 110 /min No Primary Care Physician [facility] Work Phone: 04-26-2022 09:10-0500 Respiratory rate 17 /min No Primary Care Physician [facility] Work Phone: 04-26-2022 09:10-0500 SaO2% (BldA) [Mass fraction] 97 % No Primary Care Physician [facility] Work Phone: 04-26-2022 09:10-0500 Systolic blood pressure 133 mm[Hg] No Primary Care Physician [facility] Work Phone: 04-25-2022 03:00-0500 Inhaled oxygen flow rate 2 L/min No Primary Care Physician [facility] Work Phone: 04-22-2022 12:31-0500 Body height 175.26 cm No Primary Care Physician [facility] Work Phone: 04-22-2022 12:31-0500 Body weight 89.35 kg No Primary Care Physician [facility] Work Phone: 04-21-2022 20:11-0500 Body temperature 98.1 [degF] [facility] Work Phone: 04-21-2022 20:11-0500 Diastolic blood pressure 67 mm[Hg] [facility] Work Phone: 04-21-2022 20:11-0500 Heart rate 100 /min [facility] Work Phone: 04-21-2022 20:11-0500 Respiratory rate 18 /min [facility] Work Phone: 04-21-2022 20:11-0500 Systolic blood pressure 131 mm[Hg] [facility] Work Phone: 04-21-2022 17:04-0500 Body height 175.26 cm [facility] Work Phone: 04-21-2022 17:04-0500 Body mass index (BMI) [Ratio] 28 kg/m2 [facility] Work Phone: 04-21-2022 17:04-0500 Body weight 86.18 kg [facility] Work Phone: 04-21-2022 17:04-0500 SaO2% (BldA) [Mass fraction] 96 % [facility] Work Phone: 10-07-2021 11:00-0400 Diastolic blood pressure 79 mm[Hg] Susan Ca MD Work Phone: [facility] 10-07-2021 11:00-0400 Heart rate 82 /min Susan Ca MD Work Phone: [facility] 10-07-2021 11:00-0400 Respiratory rate 8 /min Susan Ca MD Work Phone: [facility] 10-07-2021 11:00-0400 SaO2% (BldA) [Mass fraction] 94 % Susan Ca MD Work Phone: [facility] 10-07-2021 11:00-0400 Systolic blood pressure 149 mm[Hg] Susan Ca MD Work Phone: [facility] 10-07-2021 10:37-0400 Body temperature 97.59 [degF] Susan Ca MD Work Phone: [facility] 10-07-2021 09:31-0400 Body height 175.3 cm Susan Ca MD Work Phone: [facility] 10-07-2021 09:31-0400 Body mass index (BMI) [Ratio] 26.29 kg/m2 Susan Ca MD Work Phone: [facility] 10-07-2021 09:31-0400 Body weight 80.74 kg Susan Ca MD Work Phone: [facility] 09-30-2021 09:43-0400 Diastolic blood pressure 85 mm[Hg] Drake Sandoval MD Work Phone: [facility] 09-30-2021 09:43-0400 Systolic blood pressure 126 mm[Hg] Drake Sandoval MD Work Phone: [facility] 09-30-2021 07:38-0400 Body temperature 98.29 [degF] Drake Sandoval MD Work Phone: [facility] 09-30-2021 07:38-0400 Heart rate 75 /min Drake Sandoval MD Work Phone: [facility] 09-30-2021 07:38-0400 Respiratory rate 16 /min Drake Sandoval MD Work Phone: [facility] 09-30-2021 07:38-0400 SaO2% (BldA) [Mass fraction] 98 % Drake Sandoval MD Work Phone: [facility] 09-27-2021 06:19-0400 Body height 175.3 cm Drake Sandoval MD Work Phone: [facility] 09-27-2021 06:19-0400 Body mass index (BMI) [Ratio] 27.15 kg/m2 Drake Sandoval MD Work Phone: [facility] 09-27-2021 06:19-0400 Body weight 83.4 kg Drake Sandoval MD Work Phone: [facility] 08-19-2021 14:05-0400 Heart rate 72 /min Susan Ca MD Work Phone: [facility] 08-19-2021 14:05-0400 Respiratory rate 12 /min Susan Ca MD Work Phone: [facility] 08-19-2021 14:05-0400 SaO2% (BldA) [Mass fraction] 97 % Susan Ca MD Work Phone: [facility] 08-19-2021 14:00-0400 Diastolic blood pressure 65 mm[Hg] Susan Ca MD Work Phone: [facility] 08-19-2021 14:00-0400 Systolic blood pressure 159 mm[Hg] Susan Ca MD Work Phone: [facility] 08-19-2021 13:28-0400 Body temperature 98.01 [degF] Susan Ca MD Work Phone: [facility] 08-19-2021 09:40-0400 Body height 175.3 cm Susan Ca MD Work Phone: [facility] 08-19-2021 09:40-0400 Body mass index (BMI) [Ratio] 26.29 kg/m2 Susan Ca MD Work Phone: [facility] 08-19-2021 09:40-0400 Body weight 80.74 kg Susan Ca MD Work Phone: [facility] 12-04-2019 18:26-0400 Respiratory Rate 14 /min [facility] 12-04-2019 15:19-0400 Body Temperature 98.8 [degF] [facility] 12-04-2019 15:19-0400 BP Diastolic 71 mm[Hg] [facility] 12-04-2019 15:19-0400 BP Systolic 120 mm[Hg] [facility] 12-04-2019 15:19-0400 Pulse (Heart Rate) 51 /min [facility] 12-04-2019 15:19-0400 Pulse Oximetry 97 % [facility] 12-03-2019 07:38-0400 BMI (Body Mass Index) 27.43 kg/m2 [facility] 12-03-2019 07:38-0400 Body weight 77.1 kg [facility] 12-03-2019 07:38-0400 Height 167.6 cm [facility] 11-18-2019 03:15-0400 BP Diastolic 80 mm[Hg] [facility] 11-18-2019 03:15-0400 BP Systolic 132 mm[Hg] [facility] 11-18-2019 03:15-0400 Pulse (Heart Rate) 72 /min [facility] 11-18-2019 03:15-0400 Pulse Oximetry 97 % [facility] 11-18-2019 03:15-0400 Respiratory Rate 16 /min [facility] 11-17-2019 22:22-0400 BMI (Body Mass Index) 29.05 kg/m2 [facility] 11-17-2019 22:22-0400 Body Temperature 98.2 [degF] [facility] 11-17-2019 22:22-0400 Body weight 81.65 kg [facility] 11-17-2019 22:22-0400 Height 167.6 cm [facility] 09-26-2018 17:35-0400 BMI (Body Mass Index) 25.09 kg/m2 [facility] 09-26-2018 17:35-0400 Body weight 74.84 kg [facility] 09-26-2018 17:35-0400 Height 172.7 cm [facility] 09-26-2018 17:34-0400 Body Temperature 98.71 [degF] [facility] 09-26-2018 17:34-0400 BP Diastolic 62 mm[Hg] [facility] 09-26-2018 17:34-0400 BP Systolic 115 mm[Hg] [facility] 09-26-2018 17:34-0400 Pulse (Heart Rate) 73 /min [facility] 09-26-2018 17:34-0400 Pulse Oximetry 97 % [facility] 09-26-2018 17:34-0400 Respiratory Rate 18 /min [facility] 02-20-2018 13:38-0400 BMI (Body Mass Index) 25.84 kg/m2 [facility] 02-20-2018 13:38-0400 Height 175.3 cm [facility] 02-20-2018 13:38-0400 Respiratory Rate 16 /[facility]-2018 13:38-0400 Weight 79.38 [facility] En[facility]ters Encounter Date Encounter Type Care Provider Facility Start: 11-28-2024 ambulatory NANCY Hagan [facility] Start: 11-27-2024 End: 11-27-2024 Office outpatient visit 5 minutes Favian Robles RN Work Phone: [facility] Comment on above: Arrived Start: 11-27-2024 End: 11-27-2024 ambulatory FAVIAN ROBLES Count Includes [facility] Start: 11-26-2024 End: 11-27-2024 Office outpatient visit 5 minutes Favian Robles RN Work Phone: [facility] Start: 11-12-2024 End: 11-12-2024 Office outpatient visit 25 minutes Allan Elizabeth MD Work Phone: [facility] Start: 10-31-2024 End: 10-31-2024 Office outpatient new 45 minutes Allan Elizabeth MD Work Phone: [facility] Comment on above: Opioid use disorder (Primary Dx); Opioid use disorder, severe, in early remission (HCC-CMS) Start: 10-31-2024 ambulatory ALLAN ELIZABETH Count Includes [facility] Start: 09-03-2024 End: 09-03-2024 Emergency department patient visit Dr. Chemo Dunlap DO Work Phone: -Emergency Department Work Phone: Start: 09-01-2024 End: 09-01-2024 Emergency department patient visit Dr. Chemo Dunlap DO Work Phone: -Emergency Department Work Phone: Start: 08-13-2024 End: 08-14-2024 Emergency department patient visit [facility] Comment on above: Opiate withdrawal (H CC) (Primary Dx) Start: 04-12-2024 End: 04-13-2024 ambulatory Alyson Alexander COMBINATION OPERATOR [facility] Start: 04-11-2024 End: 04-11-2024 Emergency department patient visit James eNil MD Work Phone: [facility] ED Comment on above: Nausea and vomiting, unspecified vomiting type (Primary Dx); Marijuana use Start: 12-03-2023 End: 12-05-2023 Telephone encounter Giuliano Garcia RN [facility] Start: 12-02-2023 End: 12-02-2023 Telephone encounter Vianey Proctor RN [facility] Start: 11-10-2023 Telephone encounter Vianey Proctor RN [facility] Start: 11-10-2023 ambulatory Lang Montilla Facility :[facility] Start: 11-10-2023 End: 11-10-2023 ambulatory Fahad Pepe Facility:[facility] Start: 11-08-2023 ambulatory Fahad Pepe Fac ility:[facility] Start: 11-08-2023 End: 11-11-2023 Evaluation and management of inpatient Fahad Pepe Facility:[facility] Start: 11-07-2023 End: 11-08-2023 Emergency department patient visit Marc Lainez DO Work Phone: [facility] Comment on above: Fentanyl use disorde r, mild, abuse (CMS/HCC) (HCC) (Primary Dx); Nausea and vomiting, unspecified vomiting type Start: 10-29-2023 Telephone encounter Jose Carcamo RN [facility] Clinical Communication Comment on above: Appointment Request Start: 10-25-2023 End: 10-29-2023 Evaluation and management of inpatient James Neil MD Work Phone: [facility] 2 Comment on above: Opioid use disorder (Primary Dx); Dehydration; Nausea vomiting and diarrhea; Cyclic vomiting syndrome Start: 09-27-2023 Evaluation and manag ement of inpatient [facility] Facility:[facility] Start: 09-26-2023 Emergency department patient visit [facility] Facility:[facility] Start: 09-26-2023 End: 09-26-2023 Patient encounter procedure Radha Batista APRN - PORCELAIN ENAMELING SUPERVISOR Work Phone: [facility] Comment on above: Cramping of hands (P rimary Dx); Dizziness; Nausea and vomiting, unspecified vomiting type Start: 09-26-2023 End: 09-26-2023 ambulatory RADHA BATISTA [facility] Start: 08-29-2023 End: 08-29-2023 ambulatory Facility:[facility] Start: 08-29-2023 End: 08-29-2023 Office outpatient visit 25 minutes Geneva Caldera APRN.FORESTRY BIOLOGY SPECIALIST Work Phone: [facility] Comment on above: Tinnitus, unspecifie d laterality (Primary Dx); Acute otalgia, bilateral; Eustachian tube dysfunction, bilateral; TMJ tenderness, right Start: 08-22-2023 End: 08-22-2023 Emergency department patient visit Marc Lainez DO Work Phone: [facility] ED Comment on above: Subungual hematoma o f fingernail, initial encounter (Primary Dx) Start: 06-06-2023 End: 06-07-2023 Emergency department patient visit James Neil MD Work Phone: [facility] Clinical Decision Unit CDU Comment on above: Nausea and vomiting, unspecified vomiting type (Primary Dx); Abdominal pain, unspecified abdominal location; Leukocytosis, unspecified type Start: 05-27-2023 End: 05-28-2023 Emergency department patient visit Fabiola Knox DO Work Phone: [facility] Comment on above: Opiate overdose, acc idental or unintentional, initial encounter (HCC) (Primary Dx) Start: 03-08-2023 End: 03-08-2023 Emergency department patient visit Alex Santiago MD Work Phone: [facility] ED Comment on above: Thrombosed external hemorrhoid (Primary Dx) Start: 02-23-2023 End: 02-23-2023 Subsequent hospital visit by physician [facility] [employer] [facility] Radiology Comment on above: Arrived Start: 02-23-2023 End: 02-23-2023 Emergency department patient visit Alex Santiago MD Work Phone: [facility] ED Comment on above: Foreign body in skin of finger of right hand (Primary Dx) Start: 09-28-2022 End: 09-28-2022 ambulatory No Primary Care Physician [facility] Work Phone: Start: 09-28-2022 End: 09-28-2022 Patient encounter procedure No Primary Care Physician [facility]-Laboratory, Specimen Start: 09-28-2022 End: 09-28-2022 Patient encounter procedure No Primary Care Physician [facility] Start: 06-24-2022 Telephone encounter Delia Plunkett [facility] UM & Care Coordination Start: 06-01-2022 End: 06-02-2022 Evaluation and management of inpatient [facility] Start: 05-30-2022 End: 06-04-2022 Evaluation and management of inpatient [facility] Start: 05-30-2022 Critical care ill/in jured patient init 30-74 min hCarlie Johnson MD Work Phone: [facility] Start: 05-30-2022 End: 06-04-2022 Evaluation and management of inpatient Charlie Johnson MD Work Phone: [facility] Start: 05-13-2022 End: 05-14-2022 Emergency department patient visit [facility] Start: 05-13-2022 End: 05-13-2022 Emergency department patient visit Jayant Trimble MD Work Phone: [facility] Emergency Department Start: 05-07-2022 End: 05-09-2022 ambulatory [facility] Facility:[facility] Start: 04-25-2022 Non-patient / Non-visit No Sona amezcua Care Physician [facility]patient [facility]icians Start: 04-24-2022 Non-patient / Non-visit No Sona seven Care Physician [facility] Start: 04-23-2022 Non-patient / Non-visit No Sona amezcua Care Physician [facility] Start: 04-22-2022 Non-patient / Non-visit No Sona seven Care Physician [facility] Start: 04-21-2022 Non-patient / Non-visit No Sona seven Care Physician [facility]patient [facility] Start: 04-21-2022 End: 04-26-2022 Evaluation and management of inpatient [facility] 3 Start: 12-23-2021 End: 12-24-2021 Emergency department patient visit NILA HAIR [facility] Start: 10-22-2021 End: 10-22-2021 [facility] Start: 10-20-2021 ambulatory SUSAN CA Facili ty:[facility] Start: 10-07-2021 End: 10-07-2021 ambulatory SUSAN CA Facility:[facility] Start: 10-07-2021 End: 10-07-2021 Subsequent hospital visit by physician Susan Ca MD Work Phone: Outpatient [facility] Comment on above: Carpal tunnel syndro me, left Start: 10-05-2021 Telephone encounter [facility] Care Coordination Start: 10-01-2021 ambulatory MINERVA GRIER Facilit y:[facility] Start: 09-30-2021 Orders Only Marc boggs MD Work Phone: [facility] Comment on above: Opiate use (Primary Dx) Start: 09-27-2021 End: 09-30-2021 Evaluation and management of inpatient [facility] Start: 09-26-2021 End: 09-30-2021 Evaluation and management of inpatient Drake Sandoval MD Work Phone: [facility] Med Surg Start: 09-07-2021 ambulatory MINERVA GRIER Facilit y:[facility] Start: 09-02-2021 ambulatory MINERVA GRIER Facilit y:[facility] Start: 09-02-2021 End: 09-02-2021 Postop follow up visit related to original px Jaleel Cm PA-C Work Phone: [facility] Comment on above: S/P carpal tunnel re lease (Primary Dx); Carpal tunnel syndrome, left Start: 08-19-2021 End: 08-19-2021 ambulatory SUSAN CA Facility:[facility] Start: 08-19-2021 End: 08-19-2021 Subsequent hospital visit by physician Susan Ca MD Work Phone: Outpatient Surgery [facility] Comment on above: Bilateral carpal brandon serenity syndrome Start: 08-17-2021 ambulatory MINERVA GRIER Facilit y:[facility] Start: 08-13-2021 ambulatory SELF SELF Facility:[facility] Start: 07-25-2021 End: 07-29-2021 ambulatory SOCO PAIGE [facility] Start: 07-22-2021 Orders Only Marc boggs MD Work Phone: [facility] Comment on above: Hyperemesis (Primary Dx); Opiate use Start: 07-20-2021 End: 07-20-2021 Emergency department patient visit PHYSICIAN [facility] Start: 07-03-2021 ambulatory MINERVA GRIER Facilit y:[facility] Start: 06-30-2021 ambulatory MINERVA Flaquita MARVEL Facilit y:[facility] Start: 12-03-2019 End: 12-04-2019 Emergency department patient visit Charlie Johnson Work Phone: [facility] Med Surg Comment on above: Intractable nausea a nd vomiting (Primary Dx) Start: 11-17-2019 End: 11-18-2019 Emergency department patient visit Jaquan Owusu Work Phone: [facility] Emergency Department Comment on above: Viral gastroenteriti s (Primary Dx) Start: 09-26-2018 End: 09-26-2018 Emergency department patient visit Minerva Grier [facility] Emergency Department Start: 06-01-2018 End: 06-05-2018 Patient encounter procedure YAN MARTIN [facility] Start: 06-01-2018 End: 06-01-2018 Patient encounter procedure Yan Martin Barbara Work Phone: [facility] Comment on above: Acute right ankle pa in Start: 05-16-2018 End: 05-20-2018 Patient encounter procedure YAN MARIO [facility] Start: 05-16-2018 End: 05-16-2018 Patient encounter procedure Yan Mario Jimenez Work Phone: [facility] Comment on above: Acute right ankle pa in Start: 05-11-2018 End: 05-15-2018 Patient encounter procedure YAN MARTIN [facility] Start: 05-11-2018 End: 05-11-2018 Patient encounter procedure Yan Jimenez Work Phone: [facility] Comment on above: Acute right ankle pa in Start: 05-01-2018 End: 05-05-2018 Patient encounter procedure JOSE SOMERS [facility] Start: 04-26-2018 End: 04-30-2018 [facility] Start: 04-26-2018 End: 04-26-2018 Patient encounter procedure Yan Iniguezmaryjo Work Phone: [facility] Comment on above: Acute right ankle pa in Start: 04-24-2018 End: 04-28-2018 Patient encounter procedure YAN MARIO [facility] Start: 04-17-2018 End: 04-21-2018 Patient encounter procedure YAN MARTIN [facility] Start: 04-17-2018 End: 04-17-2018 Patient encounter Yan Iniguezmaryjo Work Phone: [facility] Comment on above: Acute right ankle pa in Start: 04-10-2018 End: 04-14-2018 Patient encounter procedure YAN MARTIN [facility] Start: 04-06-2018 End: 04-10-2018 Patient encounter procedure YAN MARTIN [facility] Start: 04-03-2018 End: 04-07-2018 [facility] Start: 03-27-2018 End: 03-31-2018 Patient encounter procedure YAN MARTIN [facility] Start: 03-27-2018 End: 03-27-2018 Patient encounter Yan Henleykelton Work Phone: [facility] Comment on above: Bilateral ankle pain , unspecified chronicity Start: 03-20-2018 End: 03-24-2018 Patient encounter procedure YAN MARIO [facility] Start: 03-13-2018 End: 03-17-2018 Patient encounter procedure YAN MARTIN [facility] Start: 03-06-2018 End: 03-10-2018 Patient encounter procedure YNA MARTIN [facility] Start: 02-20-2018 End: 02-20-2018 Patient encounter YAN JIMENEZ [facility] Start: 02-20-2018 End: 02-20-2018 Office outpatient new 30 minutes Yan Iniguezmaryjo Work Phone: [facility] Comment on above: Achilles tendinitis of both lower extremities (Primary Dx); Gastrocnemius equinus, unspecified laterality Procedures Date Procedure Procedure Detail Performing Clinician Start: 11-28-2024 End: 11-28-2024 Psychotherapy w/patient 45 minutes Opioid use disorder, severe (CMS & HHS-HCC) Nancy Bolden [facility] Work Phone: Start: 11-26-2024 RFLX-INTERPRETATION Terell Elizabeth [...] Opioid use disorder, severe (HCC-CMS) Chloe Vizcaino [facility] Work Phone: Comment on above: Opioid use [...] lds trcg only w/o i&r Karuna Mayfield MARINE SCIENTIST - [employer]Y BIOLOGY SPECIALIST Work Phone: Start: 11-08-2023 Ct abdomen & pelvis w/contrast material Marc Lainez DO Work Phone: Start: 11-07-2023 Drug screening fentanyl Bill Trimble MARINE SCIENTIST - [facility] Work Phone: Start: 11-07-2023 Urnls dip stick/tabl et reagent auto microscopy Bill Trimble MARINE SCIENTIST - [facility] Work Phone: Start: 11-07-2023 Basic metabolic pane l calcium total Bill Trimble MARINE SCIENTIST - [facility] Work Phone: Start: 11-07-2023 Drug test def 1-7 classes Bill Trimble MARINE SCIENTIST [employer] [facility] Work Phone: Start: 11-07-2023 SARS-CoV-2 (COVID-19 ) Ag [Presence] in Respiratory specimen by Rapid immunoassay Bill Trimble MARINE SCIENTIST [employer] [facility] Work Phone: Start: 10-27-2023 Basic metabolic pane l calcium total Berna Rodríguez MARINE SCIENTIST - [facility] Work Phone: Start: 10-26-2023 Basic metabolic pane l calcium total Berna Marcos MARINE SCIENTIST [facility] Work Phone: Start: 10-25-2023 Drug test def 1-7 classes Bernamarilou Negrons MARINE SCIENTIST - [facility] Work Phone: Start: 10-25-2023 Urinalysis complete panel - Urine Berna Rodríguez [facility] Work Phone: Start: 10-25-2023 Urnls dip stick/tabl et reagent auto microscopy Berna Rodríguez MARINE SCIENTIST - [facility] Work Phone: Start: 10-25-2023 Ecg routine ecg w/le ast 12 lds trcg only w/o i&r Ángela Torres MARINE SCIENTIST [employer] [facility] Work Phone: Start: 10-25-2023 Basic metabolic pane l calcium total Ángela Torres MARINE SCIENTIST [employer] [facility] Work Phone: Start: 10-25-2023 Ct abdomen & pelvis w/contrast material Ángela Torres MARINE SCIENTIST [employer] [facility] Work Phone: Start: 10-25-2023 Comprehensive metabolic panel Ángela Hernandezner MARINE SCIENTIST - [facility] Work Phone: Start: 09-26-2023 Glucose post glucose dose Radha Batista MARINE SCIENTIST - [employer] Work Phone: Start: 08-22-2023 Radex hand minimum 3 views León Gilmore MD Work Phone: Start: 06-07-2023 Radiologic exam ches t single view Chris Jaimie Villalobos MARINE SCIENTIST - [facility] Work Phone: Start: 06-07-2023 Drug tst prsmv instr mnt chem analyzers pr date Bill Trimble MARINE SCIENTIST - [facility] Work Phone: Start: 06-07-2023 Urinalysis complete panel - Urine Chris Joinermark MARINE SCIENTIST [facility] Work Phone: Start: 06-07-2023 Urnls dip stick/tabl et reagent auto microscopy Chris Villalobos MARINE SCIENTIST [facility] Work Phone: Start: 06-06-2023 Ct abdomen & pelvis w/contrast material Chris Etienne Blanca MARINE SCIENTIST - [facility] Work Phone: Start: 06-06-2023 Comprehensive metabolic [...] direc t kirsty xcpt pulse oximitry Generic [facility] Work Phone: Start: 06-01-2022 OBTAIN ARTERIAL BLOO D GASES AND PERFORM González Hearn MD Work Phone: Start: 06-01-2022 Glucose measurement Gen slava [facility] Work Phone: Start: 06-01-2022 Ecg routine ecg w/le ast 12 lds trcg only w/o i&r Marc Juan MD Work Phone: Start: 06-01-2022 Gases blood ph direc t kirsty xcpt pulse oximitry Generic [facility] Work Phone: Start: 06-01-2022 Assay of [...] 05-30-2022 Radiologic exam ches t single view Cahrlie Johnson MD Work Phone: Start: 05-30-2022 Comprehensive [...] pane l calcium total Kathie L Evelio FORESTRY BIOLOGY SPECIALIST Work Phone: Start: 09-29-2021 Ecg routine ecg w/le ast 12 lds trcg only w/o i&r Conrado Yancey MD Work Phone: Start: 09-28-2021 Ecg routine ecg w/le ast 12 lds trcg only w/o i&r Conrado Yancey MD Work Phone: Start: 09-28-2021 Iadna-dna/rna gi pth gn multiplex probe tq 12-25 Carol Segovia FORESTRY BIOLOGY SPECIALIST Work Phone: Start: 09-28-2021 Comprehensive metabolic panel Carol Segovia FORESTRY BIOLOGY SPECIALIST Work Phone: Start: 09-27-2021 End: 09-27-2021 Culture bacterial blood aerobic w/id isolates Jacinto Hale MD Work Phone: Start: 09-27-2021 Drug tst prsmv instr mnt chem analyzers pr date Vanessa Brewster FORESTRY BIOLOGY SPECIALIST Work Phone: Start: 09-27-2021 Urnls dip stick/tabl [...] Start: 09-26-2021 Blood ethanol measurement Vanessa Brewster FORESTRY BIOLOGY SPECIALIST Work Phone: Start: 09-26-2021 Comprehensive metabolic panel Vanessa Brewster FORESTRY BIOLOGY SPECIALIST Work Phone: Start: 09-26-2021 CASANOVA TOP Drake [...] 12-03-2019 Bacteria identified in Blood by Culture [employer] Work Phone: Start: 12-03-2019 Drugs of abuse [...] Ethanol [Mass/volume ] in Serum or Plasma Charlie Johnson Work Phone: Start: 12-03-2019 CASANOVA TOP [...] for Adults (1 - 1-dose 75+ series) [facility] Start: 2045 RSV Immunization age d 60 or older (1 - 1-dose 60+ series) RSV Immunization aged 60 or older (1 - 1-dose 60+ series) [facility] Start: 2035 Zoster Vaccines (1 of 2) Zoste r Vaccines (1 of 2) [facility] Start: 02-23-2033 DTaP/Tdap/Td Vaccine s (2 - Td or Tdap) DTaP/Tdap/Td Vaccines (2 - Td or Tdap) [facility] Start: 02-23-2033 Tetanus vaccination Imm-DTaP/T dap/Td (2 - Td or Tdap) [facility] Start: 02-23-2033 Urine microalbumin profile DTaP,Tdap,Td Vaccine (2 - Td or Tdap) [facility] Start: 11-27-2027 Diabetes mellitus screening Diabetes Screening [facility] Start: 11-26-2027 Hypertension screening Hyperte nsion Screening (#1) [facility] Start: 11-12-2027 Hypertension screening Hyperte nsion Screening (#1) [facility] Start: 10-31-2027 Hypertension screening Hyperte nsion Screening (#1) [facility] Start: 08-14-2027 Diabetes mellitus screening Diabetes Screening [facility] Start: 11-16-2025 Anxiety Screening Anxiety Screening [facility] Start: 11-16-2025 Tobacco use cessatio n education Tobacco Cessation Counseling (#1) [facility] Start: 10-31-2025 Tobacco Screening Tobacco Screening [facility] Start: 01-28-2025 Influenza vaccination [facility] Start: 11-27-2024 End: 02-13-2025 CHLAMYDIA, GONORRHOEAE, AND TRICHOMONAS VAGINALIS, KATLYN Urine Urine Routine CHLAMYDIA, GONORRHOEAE, AND TRICHOMONAS VAGINALIS, KATLYN Urine Urine Routine Lab Routine Opioid use disorder, severe, in early remission ([facility]) Expected: 11/27/2024 (Approximate), Expires: 02/13/2025 [employer] Work Phone: Comment on above: Expected: 11/27/2024 (Approximate), Expires: 02/13/2025 Start: 11-27-2024 End: 02-13-2025 Comprehensive metabolic panel COMPREHENSIVE METABOLIC PANEL Routine Lab Routine Opioid use disorder, severe, in early remission ([facility]) Expected: 11/27/2024 (Approximate), Expires: 02/13/2025 [employer] Work Phone: Comment on above: Expected: 11/27/2024 (Approximate), Expires: 02/13/2025 Start: 11-27-2024 End: 02-13-2025 Hemoglobin glycosylated a1c HEMOGLOBIN GLYCOSYLATED A1C Routine Lab Routine Opioid use disorder, severe, in early remission ([facility]) Expected: 11/27/2024 (Approximate), Expires: 02/13/2025 [employer] Work Phone: Comment on above: Expected: 11/27/2024 (Approximate), Expires: 02/13/2025 Start: 11-27-2024 End: 02-13-2025 Iaad ia hiv-1 ag w/hiv-1 & hiv-2 antbdy single HIV 1/0/2 AG/AB W/CASCADE RFLX SUPPLEMENTAL TESTING Routine Lab Routine Opioid use disorder, severe, in early remission ([facility]) Expected: 11/27/2024 (Approximate), Expires: 02/13/2025 [employer] Work Phone: Comment on above: Expected: 11/27/2024 (Approximate), Expires: 02/13/2025 Start: 11-27-2024 End: 02-13-2025 Lipid panel LIPID PANEL Routine Lab Routine Opioid use disorder, severe, in early remission ([facility]) Expected: 11/27/2024 (Approximate), Expires: 02/13/2025 [employer] Work Phone: Comment on above: Expected: 11/27/2024 (Approximate), Expires: 02/13/2025 Start: 11-27-2024 End: 02-13-2025 Syphilis test non-treponemal antibody qual RPR (MONITOR) W/REFL TITER Routine Lab Routine Opioid use disorder, severe, in early remission ([facility]) Expected: 11/27/2024 (Approximate), Expires: 02/13/2025 [employer] Work Phone: Comment on above: Expected: 11/27/2024 (Approximate), Expires: 02/13/2025 Start: 11-27-2024 End: 02-13-2025 VIRAL HEPATITIS SCREENING AND DIAGNOSIS (HAV, HBV, HCV) Routine VIRAL HEPATITIS SCREENING AND DIAGNOSIS (HAV, HBV, HCV) Routine Lab Routine Opioid use disorder, severe, in early remission ([facility]) Expected: 11/27/2024 (Approximate), Expires: 02/13/2025 [employer] Work Phone: Comment on above: Expected: 11/27/2024 (Approximate), Expires: 02/13/2025 Start: 09-03-2024 [facility] Start: 09-03-2024 Suicide precautions [facility] Start: 09-01-2024 End: 09-01-2024 [facility] Start: 05-30-2024 Depression screening Depressio n Annual Screen [facility] Start: 05-30-2024 Screening for substa nce abuse Alcohol and Drug Screen [facility] Start: 01-29-2024 COVID-19 Vaccine ( season) COVID-19 Vaccine ( season) [facility] Start: 01-29-2024 [id number] () [id number] () [facility] Start: 01-29-2024 Influenza vaccination C [facility] Start: 11-02-2023 End: 11-02-2023 Patient encounter procedure 11/02/2023 10:30 AM EDT Office Visit [facility] [address], [place] [id number] John Andrews MD [address], [place] [address] [facility] Start: 05-30-2023 Depression Assessment Depression Ass essment [facility] Start: 01-28-2023 COVID-19 Vaccine ( season) COVID-19 Vaccine () [facility] Start: 01-28-2023 Influenza vaccination Influenza Vacc ine (#1) [facility] Start: 09-27-2022 Depression screening using PHQ-9 (Patient Health Questionnaire 9) score Depression Screening (PHQ-2/9) [facility] Start: 06-26-2022 Depression screening using PHQ-9 (Patient Health Questionnaire 9) score Depression Screening (PHQ-2/9) [facility] Start: 06-09-2022 End: 06-09-2022 Patient encounter procedure 06/09/2022 Office Visit Primary Care Soco Paige, FORESTRY BIOLOGY SPECIALIST [address] [place] [address] [facility] Start: 04-26-2022 Patient discharge [facility] Work Phone: Start: 04-23-2022 Assessment using assessment scale [facility] Work Phone: Start: 04-23-2022 [facility] Work Phone: Start: 04-23-2022 End: 04-23-2022 Assessment using assessment scale [facility] Work Phone: Start: 04-23-2022 End: 04-23-2022 [facility] Work Phone: Start: 04-23-2022 End: 04-23-2022 Assessment using assessment scale [facility] Work Phone: Start: 04-23-2022 End: 04-23-2022 [facility] Work Phone: Start: 04-23-2022 Assessment using assessment scale [facility] Work Phone: Start: 04-23-2022 [facility] Work Phone: Start: 04-23-2022 Assessment using assessment scale [facility] Work Phone: Start: 04-23-2022 End: 04-23-2022 [facility] Work Phone: Start: 04-23-2022 Assessment using assessment scale [facility] Work Phone: Start: 04-23-2022 [facility] Work Phone: Start: 04-23-2022 Assessment using assessment scale [facility] Work Phone: Start: 04-23-2022 [facility] Work Phone: Start: 04-22-2022 [facility] Work Phone: Start: 04-22-2022 End: 04-22-2022 Blood culture [facility] Work Phone: Start: 04-22-2022 End: 04-22-2022 Assessment using assessment scale [facility] Work Phone: Start: 04-22-2022 End: 04-22-2022 [facility] Work Phone: Start: 04-22-2022 Assessment using assessment scale [facility] Work Phone: Start: 04-22-2022 [facility] Work Phone: Start: 04-21-2022 End: 04-22-2022 [facility] Work Phone: Start: 04-21-2022 Assessment of risk o f venous thromboembolism [facility] Work Phone: Start: 04-21-2022 Notification of physician [facility] Work Phone: Start: 04-21-2022 Vital signs measurements [facility] Work Phone: Start: 04-21-2022 Following clinical pathway protocol [facility] Work Phone: Start: 04-21-2022 Admission procedure [facility] Work Phone: Start: 04-21-2022 Patient referral to dietitian [facility] Work Phone: Start: 01-28-2022 Influenza vaccination [facility] Start: 10-20-2021 End: 10-20-2021 Patient encounter procedure 10/20/2021 Office Visit Orthopaedics Susan aC MD [address] [place] [address] [facility] Start: 10-13-2021 End: 10-13-2021 Patient encounter procedure 10/13/2021 Office Visit Orthopaedics Jaleel Cm PA-C [address] [facility] [address] [place] [address] [facility] Start: 09-28-2021 End: 09-28-2021 Admission to same day surgery center 09/28/2021 Surgery Multispecialty Ssuan Ca MD [address] [place] [address] DECOMPRESSION TRANSPOSITION MEDIAN NERVE Outpatient Surgery [facility] Comment on above: DECOMPRESSION TRANSP OSITION MEDIAN NERVE Start: 09-28-2021 End: 09-28-2021 Neuroplasty &/transpos median nrv carpal tunne DECOMPRESSION TRANSPOSITION MEDIAN NERVE Carpal tunnel syndrome, left 09/28/2021 9:55 AM EDT [facility] Start: 09-28-2021 Subsequent hospital visit by physician 09/28/2021 Hospital Encounter Multispecialty Susan Ca MD [address] [facility] [address] [place] [address] Carpal tunnel syndrome, left Outpatient Surgery Wily [facility] Comment on above: Carpal tunnel syndro me, left Start: 09-07-2021 End: 09-07-2021 ambulatory 09/07/2021 Telemed Clin Support Multispecialty Pre-Procedure Preparation [facility] Start: 09-02-2021 End: 09-02-2021 Patient encounter procedure 09/02/2021 Office Visit Orthopaedics Jaleel Cm PA-C [address] 1[address] [place] [address] [facility] Start: 08-19-2021 End: 07-22-2022 Drugs of abuse urine screening test Drugs of Abuse Screen, Urine Lab Routine Hyperemesis Opiate use Expected: 08/19/2021, Expires: 07/22/2022 [facility] Comment on above: Expected: 08/19/2021 , Expires: 07/22/2022 Start: 08-19-2021 End: 08-19-2021 Neuroplasty &/transpos median nrv carpal tunne DECOMPRESSION TRANSPOSITION MEDIAN NERVE Bilateral carpal tunnel syndrome 08/19/2021 12:43 PM EDT [facility] Start: 01-28-2021 Influenza vaccination [facility] Start: 2020 Lipid panel Lipid Screening [facility] Start: 01-29-2020 Influenza vaccinatio n given [facility] Start: 01-28-2019 Influenza vaccination INFLUENZ A VACCINE (Season Ended) [facility] Start: 06-22-2018 End: 06-22-2018 Ambulatory 06/22/2018 Treatment Rehabilitation Yan Jimenez DPM [address] [place] [address] [phone] Jose Candelario PTA [facility] Start: 06-15-2018 End: 06-15-2018 Ambulatory 06/15/2018 Treatment Rehabilitation Yan Jimenez DPM [address] [place] [address] [phone] Jose Candelario, [facility] Start: 06-08-2018 End: 06-08-2018 Ambulatory 06/08/2018 Treatment Rehabilitation Yan Jimenez, BETTY [address] [place] [address] [phone] Giuliano Chacko, [facility] Start: 06-01-2018 End: 06-01-2018 Ambulatory 06/01/2018 Treatment Rehabilitation Natasha Crowder, [facility] Start: 05-25-2018 End: 05-25-2018 Ambulatory 05/25/2018 Treatment Rehabilitation Jose Candelario, [facility] Start: 05-24-2018 End: 05-24-2018 Ambulatory 05/24/2018 Treatment Rehabilitation Jose Candelario, [facility] Start: 05-18-2018 End: 05-18-2018 Ambulatory [facility] Start: 05-16-2018 End: 05-16-2018 Ambulatory 05/16/2018 Treatment Rehabilitation Kenyon Briceno, [facility] Start: 05-08-2018 End: 05-08-2018 Ambulatory 05/08/2018 Treatment Rehabilitation Natasha Crowder, [facility] Start: 05-01-2018 End: 05-01-2018 Ambulatory [facility] Start: 04-26-2018 End: 04-26-2018 Ambulatory 04/26/2018 Treatment Rehabilitation Yan Jimenez, [place] [address] Jose Candelario, [facility] Start: 04-24-2018 End: 04-24-2018 Ambulatory 04/24/2018 Treatment Rehabilitation Yan Jimenez DPM [facility] [place] [address] [phone] Sol Cunha, [facility] Start: 04-06-2018 End: 04-06-2018 Ambulatory 04/06/2018 Treatment Rehabilitation Yan Jimenez, DPM [address] [place] [address] [phone] Jose Candelario, [facility] Start: 04-03-2018 End: 04-03-2018 Ambulatory 04/03/2018 Treatment Rehabilitation BarbaraYan, DPM [address] [place] [address] [phone] Sol Cunha, [facility] Start: 03-30-2018 End: 03-30-2018 Ambulatory 03/30/2018 Treatment Rehabilitation Yan Jimenez Mario, BETTY [address] [place] [address] [phone] Jose Candelario, [facility] Start: 01-28-2018 Influenza vaccination SEQUENTI AL INFLUENZA VACCINE (#1) [facility] Start: 11-15-2013 Hepatitis A Vaccines (2 of 2 - Risk 2-dose series) Hepatitis A Vaccines (2 of 2 - Risk 2-dose series) [facility] Start: 2004 Imm-Pneumococcal (1 of 2 - PCV) Imm-Pneumococcal (1 of 2 - PCV) [facility] Start: 2004 Pneumococcal Vaccine : Pediatrics (0 to 5 Years) and At-Risk Patients (6 to 49 Years) (1 of 2 - PCV) Pneumococcal Vaccine: Pediatrics (0 to 5 Years) and At-Risk Patients (6 to 49 Years) (1 of 2 - PCV) [facility] Start: 2004 Third diphtheria, te tanus and acellular pertussis (DTaP) vaccination TDAP (ADULT) [facility] Start: 2003 Hepatitis C antibody , confirmatory test Hepatitis C Screening [facility] Start: 2003 Hepatitis C screening Hepatitis C Sc reening [facility] Start: 2003 HIV screening HIV Screening [facility] Start: 2003 Tetanus vaccination TETANUS [facility] Start: 2000 HIV screening [facility] Start: 1998 HIV screening HIV SCREENING [facility] Start: 1998 Varicella vaccination Varicell a Vaccines (1 of 2 - 13+ 2-dose series) [facility] Start: 1997 Depression Monitoring Depression Mon blanquita [facility] Start: 1997 Depression Screening Depression Scre enfavian [facility] Start: 1991 PNEUMOCOCCAL VACCINE SERIES (1 - PCV) PNEUMOCOCCAL VACCINE SERIES (1 - PCV) [facility] Start: 1991 PNEUMOCOCCAL VACCINE SERIES (1 of 2 - PPSV23) PNEUMOCOCCAL VACCINE SERIES (1 of 2 - PPSV23) [facility] Start: 1991 Pneumococcal Vaccine : Ped or At-Risk (1 - PCV) Pneumococcal Vaccine: Ped or At-Risk (1 - PCV) [facility] [facility] Start: 1991 Pneumococcal Vaccine : Ped or At-Risk (1 of 2 - PPSV23) Pneumococcal Vaccine: Ped or At-Risk (1 of 2 - PPSV23) [facility] Start: 1991 Pneumococcal Vaccine : Pediatrics (0 to 5 Years) and At-Risk Patients (6 to 64 Years) (1 - PCV) Pneumococcal Vaccine: Pediatrics (0 to 5 Years) and At-Risk Patients (6 to 64 Years) (1 - PCV) [facility] Start: 1991 Pneumococcal Vaccine : Pediatrics (0 to 5 Years) and At-Risk Patients (6 to 64 Years) (1 of 2 - PCV) Pneumococcal Vaccine: Pediatrics (0 to 5 Years) and At-Risk Patients (6 to 64 Years) (1 of 2 - PCV) [facility] Start: 1990 COVID-19 VACCINE (#1) COVID-19 VACCI NE (#1) [facility] Start: 1990 COVID-19 Vaccine (1) COVID-19 Vaccin e (1) [facility] Start: 1988 History and physical examination, annual for health maintenance Wellness Visit [facility] Start: 1986 MMR Vaccines (1 of 1 - Standard series) MMR Vaccines (1 of 1 - Standard series) [facility] Start: 1986 Varicella vaccination Varicell a Vaccines (1 of 2 - 2-dose childhood series) [facility] Start: 01-16-1986 COVID-19 VACCINE (#1) COVID-19 VACCI NE (#1) [facility] Start: 1985 Anxiety Screening Anxiety Screening [facility] Start: 1985 Hepatitis B Vaccines (1 of 3 - 3-dose series) Hepatitis B Vaccines (1 of 3 - 3-dose series) [facility] Start: 1985 Hepatitis C antibody , confirmatory test HEPATITIS C VIRUS SCREENING [facility] Start: 1985 Hepatitis C screening HEPATITI S C VIRUS SCREENING [facility] Start: 1985 HIV screening HIV Screening [facility] Start: 1985 Lipid panel Lipid Panel [facility] Start: 1985 Tetanus vaccination [facility] Amphetamines [Presen ce] in Urine by Screen method >1000 ng/mL [facility] Bacteria identified Cx Nom (Bld) [facility] Bacteria identified in Blood by Culture [facility] Work Phone: Benzodiazepine measurement, urine [facility] Cocaine measurement, urine [facility] End: 07-22-2022 Complete blood count with white cell differential, manual CBC and Differential Lab Routine Hyperemesis Opiate use 1 Occurrences starting 07/22/2021 until 07/22/2022 [facility] Work Phone: Comment on above: 1 Occurrences starti ng 07/22/2021 until 07/22/2022 End: 07-22-2022 Comprehensive metabolic 2000 panel - Serum or Plasma Comprehensive Metabolic Panel Lab Routine Hyperemesis Opiate use 1 Occurrences starting 07/22/2021 until 07/22/2022 [facility] Comment on above: 1 Occurrences starti ng 07/22/2021 until 07/22/2022 fentaNYL [Presence] in Urine by Screen method [facility] End: 07-22-2022 Hepatitis B surface antibody measurement Hepatitis B Surface Antibody Lab Add-On Hyperemesis Opiate use 1 Occurrences starting 07/22/2021 until 07/22/2022 [facility] Comment on above: 1 Occurrences starti ng 07/22/2021 until 07/22/2022 End: 07-22-2022 Hepatitis B surface antigen measurement Hepatitis B Surface Antigen Lab Routine Hyperemesis Opiate use 1 Occurrences starting 07/22/2021 until 07/22/2022 [facility] Comment on above: 1 Occurrences starti ng 07/22/2021 until 07/22/2022 End: 07-22-2022 Hepatitis C antibody measurement Hepatitis C Antibody Lab Routine Hyperemesis Opiate use 1 Occurrences starting 07/22/2021 until 07/22/2022 [facility] Comment on above: 1 Occurrences starti ng 07/22/2021 until 07/22/2022 End: 07-22-2022 Human immunodeficiency virus antibody test HIV 1/2 Screen (4th Generation) Lab Add-On Hyperemesis Opiate use 1 Occurrences starting 07/22/2021 until 07/22/2022 [facility] Comment on above: 1 Occurrences starti ng 07/22/2021 until 07/22/2022 Methadone measuremen t, urine [facility] Patient Education [facility] Work Phone: Patient referral [facility] Work Phone: Phencyclidine [Prese nce] in Urine [facility] End: 09-26-2018 PROCEDURE - SPLINT APPLICATION PROCEDURE - SPLINT APPLICATION Procedures STAT One Time for 1 Occurrences starting 09/26/2018 until 09/26/2018 [employer] Comment on above: One Time for 1 Occur rences starting 09/26/2018 until 09/26/2018 End: 07-22-2022 Thyrotropin [Units/volume] in Serum or Plasma TSH with Reflex Free T4 Lab Routine Hyperemesis Opiate use 1 Occurrences starting 07/22/2021 until 07/22/2022 [facility] Comment on above: 1 Occurrences starti ng 07/22/2021 until 07/22/2022 TOXASSURE FLEX 23, U R W/DL Urine Routine TOXASSURE FLEX 23, UR W/DL Urine Routine Lab Routine Opioid use disorder Ordered: 10/31/2024 [facility] Work Phone: Comment on above: Ordered: 10/31/2024 Urine cannabinoid measurement [facility] Urine opiate measurement [facility] Immunizations Immunization Date Immunization Notes Care Provider [facility] 02-23-2023 tetanus toxoid, reduced diphtheria toxoid, and acellular pertussis vaccine, adsorbed Alex Santiago MD Work Phone: [facility] [employer] 09-24-2020 Covid (Moderna) Dr. Chemo Dunlap DO Work Phone: [facility] 08-27-2020 Efren ([facility] Dr. Chemo Dunlap DO Work Phone: [facility] 05-17-2013 hepatitis A vaccine, adult dosage Jose Edgare RN [facility] 05-17-2013 hepatitis B vaccine, adult dosage Jose Selle RN [facility] 05-17-2013 hepatitis A and hepatitis B vaccine James Neil MD Work Phone: [facility] 05-29-2008 hepatitis B vaccine, adult dosage Jose Selle RN [facility] 04-30-2008 hepatitis B vaccine, adult dosage Jose Selle RN [facility] Payers Date Payer Category Payer Self-pay [id number] 2023 Commercial [facility] [id number] 2023 Medicaid [id number] 2023 Medicaid HMO [employer]ICA[employer] [facility] [id number] 2023 Medicaid [id number] 2018 Unknown [id number]. 1.13.172.2 .[id number] 2017 Medicaid [id number] 2017 Medicaid [id number] .[id number] 2017 Medicaid [id number]. 1.13.385.2 .7.3.095124.315 1985 Unknown [id number] 2.16.840.1.838645.3.579.2 .902 1985 Unknown [id number] 2.16.840.1.308866.3.579.2 .902 1985 Unknown [id number] 2.16.840.1.492306.3.579.2 .902 1985 Unknown [id number] 2.16.840.1.143854.3.579.2 .902 1985 Unknown [id number] 2.16.840.1.509748.3.579.2 .902 1985 Unknown [id number] 2.16.840.1.335697.3.579.2 .902 1985 Unknown [id number] 2.16.840.1.925804.3.579.2 .902 1985 Unknown [id number] 2.16.840.1.154686.3.579.2 .902 1985 Unknown [id number] 2.16.840.1.845751.3.579.2 .902 1985 Unknown [id number] 2.16.840.1.693841.3.579.2 .902 1985 Unknown [id number] 2.16.840.1.981719.3.579.2 .902 1985 Unknown [id number] 2.16.840.1.780799.3.579.2 .902 1985 Unknown [id number] 2.16.840.1.868042.3.579.2 .902 1985 Unknown [id number] 2.16.840.1.968585.3.579.2 .902 1985 Unknown [id number] 2.16.840.1.287173.3.579.2 .594 1985 Unknown [id number] 2.16.840.1.631574.3.579.2 .594 1985 Unknown [id number] 2.16.840.1.265668.3.579.2 .594 1985 Unknown [id number] 2.840.1.511724.3.579.2 .594 1985 Unknown [id number] 2.16.840.1.601734.3.579.2 .594 1985 Unknown [id number] 2.16840.1.084004.3.579.2 .594 1985 Unknown [id number] 2.16840.1.691806.3.579.2 .594 1985 Unknown [id number] 2.16840.1.436116.3.579.2 .594 1985 Unknown [id number] 2.16.840.1.583586.3.579.2 .594 1985 Unknown [id number] 2.16.840.1.104536.3.579.2 .594 1985 Unknown [id number] 2.16.840.1.146790.3.579.2 .594 1985 Unknown [id number] 2.16.840.1.890658.3.579.2 .594 1985 Unknown [id number] 2.16840.1.635315.3.579.2 .983 1985 Unknown [id number] 2.840.1.355267.3.579.2 .903 1985 Unknown [id number] 2.16.840.1.970134.3.579.2 .903 1985 Unknown [id number] 2.840.1.431327.3.579.2 .903 1985 Unknown [id number] 2.840.1.111773.3.579.2 .903 1985 Unknown [id number] 2.840.1.510052.3.579.2 .903 1985 Unknown [id number] 2.840.1.179736.3.579.2 .903 1985 Unknown [id number] 2.840.1.256279.3.579.2 .903 1985 Unknown [id number] 2.840.1.118879.3.579.2 .1249 1985 Unknown [id number] 2.840.1.481640.3.579.2 .1249 1985 Unknown [id number] 2.840.1.339193.3.579.2 .1249 Private Health Insurance [id number] Unknown [id number] 2.840.1.675505.3.579.2 .462 Unknown [id number] 2.840.1.094281.3.579.2 .462 Unknown [id number] 2.840.1.483203.3.579.2 .462 Unknown [id number] 2.840.1.228968.3.579.2 .462 Unknown [id number] 2.840.1.974224.3.579.2 .462 Unknown [id number] 2.840.1.675890.3.579.2 .462 Unknown [id number] 2.16.840.1.999841.3.579.2 .462 Unknown [id number] 2.16.840.1.231583.3.579.2 .462 Unknown [id number] 2.16.840.1.612499.3.579.2 .462 Unknown [id number] 2.16.840.1.258102.3.579.2 .462 Social History Date Type Detail Facility Start: 02-20-2018 End: 09-26-2018 Tobacco smoking status NHIS Never smoker [facility] Start: 1985 Sex Assigned At Not on file [facility] Start: 08-09-2021 End: 05-30-2022 Exposure to SARS-CoV-2 (event) Not sure [facility] Start: 12-03-2019 End: 09-01-2024 Tobacco smoking status NHIS Current every day smoker [facility] Start: 12-03-2019 End: 11-16-2024 Cigarettes smoked current (pack per day) - Reported [facility] Start: 12-03-2019 End: 05-31-2022 Alcohol intake Lifetime non-drinker (finding) [facility] Start: 09-26-2018 End: 12-03-2019 History SDOH Alcohol Frequency 1 [facility] History of tobacco use Chews Tobacco [facility] Start: 12-03-2019 End: 10-22-2021 Tobacco use and exposure Smokeless tobacco non-user [facility] Start: 07-10-2021 End: 07-20-2021 Exposure to SARS-CoV-2 (event) Yes [facility] History of tobacco use Cigarette Smoker [facility] Start: 08-17-2021 End: 10-07-2021 Tobacco use and exposure User of smokeless tobacco [facility] Start: 04-21-2022 End: 02-23-2023 Tobacco smoking status NHIS Unknown if ever smoked [facility] Start: 01-22-2020 None [facility] Start: 01-22-2020 Heroin;Marijuana;- [facility] Start: 01-22-2020 Spouse/ Significant Other [facility] Start: 01-23-2020 Cigarettes [facility] Start: 1985 Sex Assigned At Male [facility] Start: 02-23-2023 End: 11-16-2024 Gender identity Not on file [facility] Start: 03-08-2023 End: 08-13-2024 Alcohol intake Ex-drinker (finding) [facility] How often to you hav e a drink containing alcohol? Never [facility] Average Number of Drinks Not on file [facility] (I/We) worried wheth er (my/our) food would run out before (I/we) got money to buy more. Never true [facility] Has the [employer], or [employer] threatened to shut off services in your home in past 12Mo No [facility] Are you now , , , , never or living with a partner? Living with partner [facility] Do you feel stress - tense, restless, nervous, or anxious, or unable to sleep at night because your mind is troubled all the time - these days [OSQ] Not at all [facility] Start: 02-23-2023 End: 09-03-2024 Sex Male (finding) [facility] Start: 09-03-2024 Tobacco smoking status NHIS Ex-smoker (finding) [facility] Start: 11-16-2024 Tobacco smoking status [facility] Occasional tobacco smoker Count Includes [facility] Work Phone: Start: 11-16-2024 Tobacco use and exposure Former smokeless tobacco user Count Includes [facility] Work Phone: Start: 11-16-2024 Tobacco Comment Client is trying to quit, but still smokes cigarettes sometimes. Count Includes [facility] Work Phone: Start: 11-16-2024 Gender identity Identifies as male gender (finding) Count Includes [facility] Work Phone: Start: 11-16-2024 Sexual orientation Heterosexual (finding) Count Includes [facility] Work Phone: Goals Date Patient Goal Desired Activity /State Functional Status Date Assessment Result Facility 04-26-2022 Functional status Activity Ability Indepe ndent [facility] Work Phone: 04-25-2022 Functional status [facility] Work Phone: Mental Status Date Assessment Result Facility 04-26-2022 Cognitive function Voice/Name Sophy Schwartz [facility] Work Phone: Clinical Notes 07-22-2021 to 11-28-2024 Nancy Bolden, [facility] - 11/28/2024 2:06 PM Carlos Robles, KIMMY - 11/27/2024 4:51 PM Carlos Robles RN - 11/26/2024 3:57 PM EDTRejesus manuel Vizcaino, [facility] - 11/16/2024 4:47 PM EDT Note Date [...] to client what brought him to [facility] program. Client shared his story, [...] child endangerment and served 5.5 years in longterm. Client is off probation and has outstanding [...] out. Client is currently working for the [employer] doing [employer] work along with [employer]. Client reports he was in the hospital [...] PHONE with this provider practicing within the [facility]. The identity of Migue was verified by their date of , (1985), and last four digits of their social security number, ([id number]). The provider demonstrated that confidentially was preserved at their location. Miuge was informed that they were responsible for ensuring confidentially was secured at their location. Migue's location was documented for emergency purposes. Migue was informed of the necessary steps that would occur if an emergency was to occur or technology failed during session. AUDELIA Garcia documented in this encounter Count Includes [facility] Work Phone: 11-27-2024 History of Present illness Narrative [facility] Nursing Medication Education Subjective: Mayito Forbes [...] from a medication reminder box / pill program services planner? Declined If patient accepts education with [...] complete the medication reminder box / pill program services planner education successfully? N/a- client was able [...] Robles RN 11/27/2024 documented in this encounter [facility] Work Phone: 11-26-2024 History of Present illness Narrative MAT Nursing Note Purpose of Visit: MAT follow up Chief Complaint Patient presents with Medication Assisted Treatment (MAT) Medication Management SUBJECTIVE: Mayito Forbes is a 39 year old male here for follow up visit. Interval Substance Use: ROS: (81930- Include 2-9 ROS) General: negative Neurological: negative [...] test is not intended to distinguish between ujfll-6-djadkklptdscnlxjxyxv, the predominant form of THC in most herbal or marijuana-based products, and eepmg-2-xppbndhuljltroxrofuc. Buprenorphine 382 ng/mg creat Norbuprenorphine 345 ng/mg [...] Flowsheet Row Office Visit from 11/12/2024 in [facility]/ Visits from 10/31/2024 in [facility] Temp -- -- [...] upcoming appointments and psychosocial [facility] recommendations. [facility] contact information for any questions or concerns Diagnoses: F11.21 Opioid use disorder, severe, in early remission ([facility]) Plan : BUPRENORPHINE 8 MG-NALOXONE 2 MG [...] Patient understands to call Mobile Crisis at [phone], call 911, or go to the nearest [...] Favian Robles RN documented in this encounter [facility] Work Phone: 11-16-2024 History of Present illness Narrative Client Name: Mayito Forbes Time of session: 12:15pm-1:45pm Service Type: Assessment Duration of Session (in Minutes): 90 Client Goal: Dimension 5 Relapse, Continued Use or Continued Problem Potential Content of Session and Clinical Interventions: The following were addressed in today's visit: Depression screening:DEPRESSION FU PROVIDED ([facility]-2): Assessed, follow-up as needed Tobacco counseling: provided [...] VIDEO with this provider practicing within the [facility]. The identity of Mayito was verified by their date of , (1985), and last four digits of their social security number, ([id number]). Spoke with Mayito regarding the delivery of services by [facility] and its affiliates. Discussed benefits and risks of service and ensured client understands they can terminate services at any time. Reviewed written contents of organization consent; client acknowledged and agreed to pursue services. Client was emailed consent for services via [employer] for signature. The provider demonstrated that confidentially was preserved at their location and Mayito was informed that they were responsible for ensuring that confidentially was secured at their location. Mayito's location was documented for emergency purposes. Mayito was informed of the necessary steps that would occur if an emergency was to occur or technology failed during session AUDELIA Zamudio [facility] Care Plan Client Name: Mayito [...] plan. No other participants Copy Provided: Via [employer] NOTE: PHP treatment plan review biweekly. IOP treatment plan review monthly. NIOP (Including Relapse Prevention and Aftercare) treatment plan review quarterly. / ADMINISTRATIVE: Administrative Information: Document Type: Initial Next Review: 02/16/2025 Freq: Quarterly AUDELIA Zamudio [facility] Assessment Date of This Assessment: [...] dynamics. Client reported he was born in longterm, his mother is lesbian and ended up with him because a gf at the time wanted a bi-racial baby. Client reported that his mother's gf ended up leaving her. Client reported he was raised by his grandmother. Mother was in longterm for 20 years for murder of someone who informed on her when she was selling drugs. Client shared that he has been in longterm multiple times. 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 [...] etc)? 0 7F. Inhalants (glues, adhesives, nail malawian remover, paint thinner, etc)? 0 7G. Other drugs (steroids, non-prescription sleep and diet pills, Benadryl, Ephedra, other krry-lfj-mjgrkmv or unknown medications)? 0 8. In the [...] places or things)? 0 12. Does your druze or spirituality help support your recovery? 0 [...] environment support recovery? Yes What role does druze/spirituality play in your everyday life? 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 (!) Yes Legal: Legal Have you ever been arrested or convicted of anything? yes - Trafficking, possession, attempted fel assault, child endangerment If presently involved, information for Probation/information security officer: None Were drugs/alcohol involved in any [...] Initial AUDELIA Zamudio documented in this encounter [facility] Work Phone: 11-12-2024 History of Present illness [...] Favian Robles RN MAT Follow-Up Visit [facility] Medication Assisted Treatment for Opioid Use [...] taking venlafaxine and buproprion for MDD and KRISITNA MOUD Treatment Pt's opioid use disorder is in early remission Current medical treatment: Is patient continuing to use unprescribed opioids? No Is patient experiencing opioid cravings? No Is patient experiencing opioid withdrawal symptoms? No Is patient taking medication as prescribed? 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 Buprenorphine 554 ng/mg creat Norbuprenorphine 371 ng/mg [...] Dayanna Elizabeth MD documented in this encounter [facility] [employer] Work Phone: 10-31-2024 History of Present illness Narrative MAT Initial Evaluation [facility] Medication Assisted Treatment for Opioid Use [...] few years First got treatment 2009 in [place] on methadone Has been on and off suboxone throughout the years Mutliple times in longterm- was never treated there, last time 2020 [...] on vivitrol before then He is at [facility] and mental health every 2 weeks 16mg feels okay Started gabapentin 300 bid- unprescribed Dislocated vertebrae Does MMA No other medical conditions MDD and KRISTINA- on venlafaxine, buproprion MEDICAL, PSYCHIATRIC, FAMILY & SOCIAL HISTORY MEDICAL HISTORY OUD PSYCHIATRIC HISTORY MDD KRISTINA SOCIAL HISTORY 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 [facility] near [place], in [place] for work MEDICATIONS No current outpatient medications [...] for: HCVRNAQN, HCVRNAQT No results found for: [id number] Urine test, if applicable: No results found for: URHCG, URHCGQL Last Urine Drug Screen Result: 10/29/2024 10/29/2024 1 Buprenorphine-Nalox 8-2mg Film 30.[address] [id number] [facility] (7357) 0 16.00 mg [facility] [place] 10/15/2024 10/15/2024 1 Buprenorphine-Nalox 8-2mg Film 30.[address] [id number] Wal (7357) 0 16.00 mg [place] 10/01/2024 10/01/2024 1 Buprenorphine-Nalox 8-2mg Film 28.[address] [id number] Wal (7357) 0 16.00 mg [place] 09/17/2024 06/04/2024 2 Vivitrol 380 Mg Vial-Diluent 1.[address] [id number] Gen (3600) 3 [place] 08/06/2024 06/04/2024 2 Vivitrol 380 Mg Vial-Diluent 1.[address] [id number] Gen (3600) 2 [place] 07/06/2024 06/04/2024 2 Vivitrol 380 Mg Vial-Diluent 1.[address] [id number] Gen (3600) 1 [place] 06/04/2024 06/04/2024 2 Vivitrol 380 Mg Vial-Diluent 1.[address] [id number] Gen (3600) 0 ASSESSMENT & PLAN Mayito [...] harm reduction practices. Pt has naloxone -- [facility] MAT Treatment Guidelines: Treatment Guidelines have not yet been signed by patient -- Current Visit Frequency: Every 2 weeks -- Urine Drug Screen Obtained: Yes -- Other treatment recommendations: Pt with OUD in early remission. Currently receiving care in [place] and would like to receive care at [facility]. No buprenorphine Rx given today as has active Rx. Plan for 2 week follow-up when patient is due for next script. Referred to [facility] program Will plan on labs next visit #neuropathy, hx of lumbar spine abscess and surgery -- gabapentin 300 BID sent Dayanna Elizabeth MD UDS collected and sent to the lab. Client wants to switch over to us- Savana Ramos recommended him. Currently at [facility]- has been with for past 2 years- not happy with services. Client currently on Suboxone 8mg BID- feels alright for client. Client is also interested in Gabapentin 300 BID- has used in the past to help with pain and [facility] would not prescribe (client has gotten by other means). Client just got a whole script from [facility] on Tuesday- going every 2 weeks. Previously on Vivitrol injection, which he did like--last injection about a month ago. Client has been sober since October 01 most recently. Favian Robles RN documented in this encounter Count Includes [facility] Work Phone: 09-03-2024 Discharge summary [facility] 09-03-2024 Discharge summary Note Date/Time September 03, 2024 10:19pm [facility] Medical Records Department [address] [place] [address] Emergency Department Summary 09/03/24 MR#: [id number] Acct: [id number] Name: MAYITO FORBES Rep #:[id number] : 1985 39 From: Alexsander Hernandez PCP: Natasha Luciano PORCELAIN ENAMELING SUPERVISOR Status :REG ER Location: ED HPI History of Present Illness Chief Complaint: Substance Abuse [facility] Medical History Heroin abuse Opiate withdrawal Mandible [...] Method Room Air Room Air Room Air [facility] MDM Narrative Medical decision making [...] hospitalist who agreed the patient is at ne criteria for admission at this time. The [...] Discharge home This note was generated with GetSet dictation software. It may contain incorrectwords, spelling, [...] 78.7 H Lymph % (Auto) 15.4 L Ozark % (Auto) 5.0 Eos % (Auto) 0.1 [...] further outpatient evaluation and management. Print Language: Equ[place] Guinean Disposition Disposition: Home, Self Care What to do if you have Problems For any increased pain, shortness of breath, bleeding, nausea or vomiting, chest pain, or any unexpected problems, contact your Primary Care Provider. Call [facility] ([phone]) or report to the closest Emergency Room. Call 911 if necessary. 09/03/24 8941 <Electronically signed by Alexsander Mckenna DO> Cosigner Signature (if applicable): CC: Natasha Luciano NP ~ Signed [facility] Work Phone: 1(109) 974-306304-05-2025 Discharge summary [facility] Medical Records Department [address] [place] [address] Emergency Department Summary 09/01/24 MR#: [id number] Acct: [id number] Name: MAYITO FORBES Rep #:[id number] : 1985 39 From: Chemo pizarro DO PCP: Natasha Luciano PORCELAIN ENAMELING SUPERVISOR Status :REG ER Location: ED HPI History [...] used IV heroin. Patient states he went [facility] yesterday and received his Vivitrol injection. [...] oriented, grossly intact, sensation intact Psych: Cooperative [facility] Medical History Heroin abuse Opiate withdrawal Mandible [...] 89.4 H Lymph % (Auto) 5.6 L Ozark % (Auto) 4.3 Eos % (Auto) 0.0 [...] Care Physician,No Primary [Non-Staff] - Print Language: [place]ine[place] What to do if you have Problems For any increased pain, shortness of breath, bleeding, nausea or vomiting, chestpain, or any unexpected problems, contact your Primary Care Provider. Call [facility] ([phone]) or report tothe closest Emergency Room. Call 911 if necessary. 09/01/24 1338 Cosigner Signature (if applicable): CC: Natasha Luciano NP ~ Signed [facility]25 Emergency department Note* Georgia Baker RN - 08/14/2024 3:14 AM EDT Spoke with Kristy at the [facility] who states that they do not have a bed for the patient and they do not know when they will get a bed. She states that they will call when they have a bed [facility] Emergency department Note* Georgia Baker RN - 08/14/2024 3:14 AM EDT Spoke with Kristy at the [facility] who states that they do not have [...] Narcan/Naloxone is available WITHOUT prescription at most [place] Pharmacies, including [employer] [facility], [employer], Law[employer]s, Zebit, and others. It has a cost, but there is a free program through [facility] (and 47 other [facility]). A full list of pharmacies is available at the [place] Board of Pharmacy website, but calling your [...] Demetrio HITCHCOCK is an initiative of the [facility] Opiate Task Force and is funded in part by the [facility] Alcohol, Drug Addiction and Mental Health (ADM) Services [facility] Alcohol, Drug Addiction & Mental Health Services [place] [address] [email or web address] WALK-IN HOURS: Tuesdays (every hour) from 3pm [...] Give Naloxone Assemble the nasal spray Naloxone. [place] half (1 ml) up one nostril, half [...] has been used safely by emergency medical case manager for more than 40 years and has [...] whether intentionally (in treatment) or unintentionally (in [facility] or the hospital). Taking opioids after a [...] your treatment: 12-Step: Heroin Anonymous: Sung Merino: [phone], Fadi Mclaughlin: [phone] Narcotics Anonymous: 888-GET_HOPE (850-634-6263) Mieple.BiTaksi Alcohol Anonymous: Sensorinronaa.org William Anon: 940.473.1655: 12-step program for families & friends of people with addiction. CRISIS: Homeless Hotline: 170.902.8665 [facility] ([facility]eterans) 20/12 line-20/12 OFFICE: [phone] [facility]: [address] [place] [address] [phone] (24 Hours) Domestic Violence help line anytime: 488.881.5306 Crisis Hotline: 20/12- 458.158.2516 ADM Addiction Helpline: 475.141.6719 (available 8:30 AM to 4:00 PM ) 2-1-1 2-1-1 helps people across [facility] find local resources when they don't know where to turn [facility]. We are available 24 hours a day, 7 days a week. For help, simply dial 06-30- to speak to one of our trained professionals. Methadone Treatment: [facility] [place], [place] [phone] [place], [place] [phone] [facility] [place] [phone] [place] [phone] [facility] - [phone] ext. [phone] or [phone] [facility] [place] [phone] [facility] ([place]) [phone] DETOX TREATMENT: Wendy [facility] Recovery Services, [place], [place] [phone] /ADM Crisis Center: anytime @ [phone] for alcohol & drug addiction help. [facility], [place] [phone] [facility] [place]: [phone] [place], [place], [place]: [phone], [place], [place]: [phone] [place] [phone] Adolescent detox [place], [place] [phone] [facility] [place], [place]: [phone] [facility], [place], [place] [phone] ext. [phone] [facility], [place], [place] BH & detox & Sober living [phone] [place], [place] (pt. must be medically cleared prior to admission in ED) Laurent [facility]K [facility], [place], [place] [phone] OUTPATIENT TREATMENT: [facility] Health @ [place], [place] [phone]. 1st Step MAT Program @ [facility] ED: [phone] 1st Step MAT Program @ [facility] ED: [phone] Intensive Outpatient Programs- [place], [place] [phone] [place] [phone] [facility] PorfirioLos Med[facility] Community Hospital[facility]roy[facility] [place] [phone] [facility] Addiction Treatment: [place], [place] [phone] or [phone]. [facility]: [phone] [facility]: [phone], [facility]: [phone] [facility], [place]: [phone] [facility], [place], [place]: [phone] [facility] Behavioral [facility], [place]: [phone], [place]: [phone] [facility] [place]: [phone] [facility], [facility] & Sober living [phone] [facility], [place], [place] [phone] [facility] Behavioral Health Services: [phone] Behavioral Health Services: [facility]: Uajzc-[phone], Efren/Flzrth-[phone], [place]- [phone] [facility], [place]: [phone], [place]: [phone] [facility] Behavioral Health, [place], [place] [phone] [facility], [place], [place] [phone] [facility] Behavior Health, [place], [place] [phone], inpantera services, dual dx. Tx. with detox. [facility] SERVICES: [facility] [place], [place] [phone] [facility], [place], [place] [phone] [facility] [phone] [facility] SERVICES: One [facility] (180): [place], [place] [phone] [facility] Sophy OZUNA & Sade: [phone] RESIDENTIAL TREATMENT FACILITIES: [facility] House: inpt. Or outpt. - [phone] [facility], [place], [place] [phone] [facility] [place], [place] [phone] Community Assessment & Treatment Services (CATS) @ [facility] [phone] [facility] Residential tx., [place], [place] [phone] (admission coordinated by -Ariadna Sheffield ext [phone]) [facility] Tx., [place], [place]: [phone]; Men's services inpt. & women services -Outpt. [facility], [place], [place] [phone] [facility] Health, [place], [place] [phone] [facility], [place], [place] [phone] [facility], [place], [place] [phone] [facility], [place], [place] [phone] [facility] - [place], [place] [phone] [facility], [place], [place] [phone] [place], [place] [phone] [facility], [facility] & detox & Sober living [phone] OTHER SERVICES: [employer] Market Consultant Service: [phone] [facility]: [phone] ext. [phone] Medicaid Health Coverage: [employer] JFS: [phone] * Edgar Powers MD - 08/13/2024 9:31 [...] he wishes to pursue inpatient detox at [facility]). I considered serotonin syndrome but this would [...] 9:31 AM EDT Emergency Department Encounter Location: [facility] ED Patient: Mayito Forbes : 1985 Date [...] 375 ms QTC Interval 427 ms P Madrid 75 degrees QRS Madrid 40 degrees T Wave [place] 66 degrees NV Interval 164 ms SARS-CoV-2 Antigen Collection Time: [...] Was initially admitted to detox over at [facility] however patient's insurance is not in network here. Patient's insurance is in network only at [facility]. His labs are notable for mild leukocytosis 11.6, elevated ketones in his urine, UDS positive for fentanyl, no other drugs on board. Alcohol was negative. Patient received multiple medications for his opioid withdrawal. His chest x-ray was normal as well. I spoke with Dr. Montoya from [facility] who accepted the patient for transfer [...] 1243) I Cynthia Puckett DO am the director of primary care of record. Final Impression 1. Opiate withdrawal [...] insurance would not support and admission to [facility]. Therefore he was accepted at [facility]. However no beds have been available and he is now awaiting a bed. On my reassessment at around 1 PM today, patient looks dramatically better. He is reporting resolution of his withdrawal symptoms. He does not wish to wait any longer with no bed insight at [facility]. He wishes to be discharged. He is feeling much improved. Declines prescription for clonidine.Will prescribe Zofran. Edgar Powers MD 08/14/24 1320 documented in this encounterSBarney Children's Medical CenterSozrjh05-22-1332 Emergency department Note* Ursula Denney RN - 08/13/2024 6:36 PM EDT Pt continues to have intervals of sleeping and then vomiting. PRN to be adminsitered [facility] CenterHfmlst05-22-6130 Note* Care Coordination - Seven Maldonado RN - 08/13/2024 4:08 PM EDT Notified that patient was OON with insurance and needs transferred to in-network facility when medically stable. Did discuss with ER attending and patient already admitted to [facility]. Did send epic chat updating him of this and provided him with in-network facility and their contact information.. [facility] CenterIzktqu06-08-6514 Note* Care Coordination - Seven Maldonado RN - 08/13/2024 4:08 PM EDT Notified that patient was OON with insurance and needs transferred to in-network facility when medically stable. Did discuss with ER attending and patient already admitted to [facility]. Did send epic chat updating him of this and provided him with in-network facility and their contact information.. [facility] CenterFwhmmp38-84-3514 Miscellaneous Notes* Care Coordination - Seven Maldonado RN - 08/13/2024 4:08 PM EDT Notified that patient was OON with insurance and needs transferred to in-network facility when medically stable. Did discuss with ER attending and patient already admitted to [facility]. Did send epic chat updating him of this and provided him with in-network facility and their contact information.. documented in this [facility]03-17-2025 Emergency department Note* Mary Hudson RN - 08/13/2024 12:37 PM EDT Project CORETTA is available STATE-WIDE. Narcan/Naloxone is available WITHOUT prescription at most [place] Pharmacies, including Local D[employer], [employer], Law[employer]s, Zebit, and others. It has a cost, but there is a free program through [facility] (and 47 other [facility]). A full list of pharmacies is available at the [place] Board of Pharmacy website, but calling your [...] Demetrio HITCHCOCK is an initiative of the [facility] Opiate Task Force and is funded in part by the [facility] Alcohol, Drug Addiction and Mental Health (ADM) Services [facility] Alcohol, Drug Addiction & Mental Health Services [facility] Public Health [address] [place], [place] [address] [email or web address] WALK-IN HOURS: Tuesdays (every hour) from 3pm [...] Give Naloxone Assemble the nasal spray Naloxone. [place] half (1 ml) up one nostril, half [...] has been used safely by emergency medical case manager for more than 40 years and has [...] whether intentionally (in treatment) or unintentionally (in [facility] or the hospital). Taking opioids after a [...] of a fatal overdose in the future. [facility] CenterLjjtth33-11-3343 Emergency department Note* Mary Hudson RN - 08/13/2024 12:35 PM EDT The following are the next steps in your Substance use Treatment Plan: Below are additional resources that you may find beneficial in your treatment: 12-Step: Heroin Anonymous: Sung Merino: [phone], Fadi Mclaughlin: [phone] Narcotics Anonymous: 888-GET_HOPE (050-431-8442) Mieple.org Alcohol Anonymous: akronaa.org William Anon: 264.381.5574: 12-step program for families & friends of people with addiction. CRISIS: Homeless Hotline: 389.495.7288 [facility] ([facility]) 20/12 line-20/12 OFFICE: [phone] [facility]: [address] [place] [address] [phone] (24 Hours) Domestic Violence help line anytime: 609.454.1984 Crisis Hotline: 20/12- 880.564.3329 ADM Addiction Helpline: 968.644.9629 (available 8:30 AM to 4:00 PM ) 2-1-1 2-1-1 helps people across [facility] find local resources when they don't know where to turn forhel. We are available 24 hours a day, 7 days a week. For help, simply dial -1-1 to speak to one of our trained professionals. Methadone Treatment: [facility] [place] [phone] [place] [phone] [facility] [place] [phone] [facility] [place], [place] [phone] [facility] - [phone] ext. [phone] or [phone] [facility] [place], [place] [phone] [facility] ([place]) [phone] DETOX TREATMENT: Wendy Hoff [facility] Services[place], [place] [phone] /ADM Crisis Center: anytime @ [phone] for alcohol & drug addiction help. [facility], [place], [place] [phone] [facility] [place]: [phone] [place]: [phone], [facility] [place]: [phone] [place], [place] [phone] Adolescent detox [place], [place] [phone] [facility] [place]: [phone] [facility], [place], [place] [phone] ext. [phone] [facility], [facility] & detox & Sober living [phone] [place], [place] (pt. must be medically cleared prior to admission in ED) [facility], [place], [place] [phone] OUTPATIENT TREATMENT: [facility] Health @ [place], [place] [phone]. 1st Step MAT Program @ [facility] ED: [phone] 1st Step MAT Program @ [facility] ED: [phone] Intensive Outpatient Programs- [facility], [place] [phone] [place] [address] [facility] [place], [place] [phone] [facility] Addiction Treatment: [place] [phone] or [phone]. [facility]: [phone] [facility], [place]: [phone], [facility]: [phone] [facility], [place], [place]: [phone] [facility], [place], [place]: [phone] [facility] Behavioral [facility], [place]: [phone], [facility]: [phone] [facility] [place]: [phone] [facility], [facility] & Sober living [phone] [facility], [place], [place] [phone] [facility] Behavioral Health Services: [phone] Behavioral Health Services: [facility]: Qhqvq-[phone], [phone], [place]- [phone] [facility] Behavioral [facility], [place]: [phone], [facility]: [phone] [facility] Behavioral Health, [place], [place] [phone] [facility], [place], [place] [phone] [facility], [place] [phone], karel services, dual dx. Tx. with detox. [facility] SERVICES: [place], [place] [phone] [facility] Path[place], [place] [phone] [facility] [phone] [facility] SERVICES: [facility] (180): [place] [phone] [place] OZUNA & Sade: [phone] RESIDENTIAL TREATMENT FACILITIES: [facility] House: inpt. Or outpt. - [phone] [facility], [place] [phone] [place], [place] [phone] Community Assessment & Treatment Services (CATS) @ [facility] [phone] [facility] Residential tx., [place], [place] [phone] (admission coordinated by ADM Nena Sheffield ext [phone]) [facility] Residential Tx., [place], [place]: [phone]; Men's services inpt. & women services -Outpt. [facility], [place], [place] [phone] [facility], [place] [phone] [facility], [place], [place] [phone] [facility], [place], [place] [phone] [facility], [place], [place] [phone] [facility] - [place], [place] [phone] [facility], [place], [place] [phone] [place], [place] [phone] [facility], [facility] & detox & Sober living [phone] OTHER SERVICES: [employer] Market Consultant Service: [phone] [facility]: [phone] ext. [phone] Medicaid Health Coverage: [facility] JFS: [phone] [facility] CenterIbfjdb77-94-6502 NoteThe following are the next steps in your Substance use Treatment Plan: Below are additional resources that you may find beneficial in your treatment: 12-Step: Heroin Anonymous: Sung Merino: [phone], Fadi Mclaughlin: [phone] Narcotics Anonymous: 888-GET_HOPE (466-930-9402) nabuckeye.org Alcohol Anonymous: akronaa.org William Anon: 160.941.9267: 12-step program for families & friends of people with addiction. CRISIS: Homeless Hotline: 650.602.5786 [facility] ([facility]) 20/12 line-20/12 OFFICE: [phone] [facility]: [address] [facility], [place] [address] [phone] (24 Hours) Domestic Violence help line anytime: 420.605.1783 Crisis Hotline: 20/12- 699.144.8276 ADM Addiction Helpline: 802.261.7798 (available 8:30 AM to 4:00 PM ) 2-1 helps people across [facility] find local resources when they don't know where to turn for help. We are available 24 hours a day, 7 days a week. For help, simply dial to speak to one of our trained professionals. Methadone Treatment: [facility] [place] [phone] [place] [phone] [facility] [place] [phone] [place] [phone] [facility] - [phone] ext. [phone] or [phone] [facility] [place] [phone] [facility] ([place]) [phone] DETOX TREATMENT: Wendy Hoff [facility] Services, [place], [place] [phone] /[facility] Crisis Center: anytime @ [phone] for alcohol & drug addiction help. [facility], [place] [phone] [facility] [place]: [phone] [place]: [phone], [facility] [place]: [phone] [facility]mary[facility] [place] [phone] Adolescent detox [place], [place] [phone] [facility] - [place], [place]: [phone] [facility], [place] [phone] ext. [phone] [facility], [facility] & detox & Sober living [phone] [place], [place] (pt. must be medically cleared prior to admission in ED) [facility], [place], [place] [phone] OUTPATIENT TREATMENT: [facility] Addiction Health @ [place] [phone]. 1st Step MAT Program @ [facility] ED: [phone] 1st Step MAT Program @ [facility] ED: [phone] Intensive Outpatient Programs- [facility] Cody [place], [place] [phone] [place], [place] [phone] [facility] [place], [place] [phone] [facility] Addiction Treatment: [place] [phone] or [phone]. [facility]: [phone] [facility], [place]: [phone], [place]: [phone] [facility] [place]: [phone] [facility], [place], [place], [place]: [phone] [facility], [place]: [phone], [place]: [phone] Viral Brown [place]. [place]: [phone] [facility], [facility] & Sober living [phone] [facility], [place], [place] [phone] [facility] Behavioral Health Services: [phone] Behavioral Health Services: [facility]: Offvj-[phone], [phone], [place]- [phone] [facility], [place]: [phone], [place]: [phone] [facility] Behavioral [place] [phone] [facility], [place], [place] [phone] [facility], [place], [place] [phone], karel services, dual dx. Tx. with detox. [facility] SERVICES: [place], [place] [phone] [place], [place] [phone] [facility] [phone] [facility] SERVICES: [employer] (180): [place], [place] [phone] [place] MAT, Sophy & Slater: [phone] RESIDENTIAL TREATMENT FACILITIES: [facility] House: inpt. Or outpt. - [phone] [facility], [place], [place] [phone] [address] [place], [place] [phone] Community Assessment & Treatment Services (CATS) @ [facility] [phone] [facility] [place], [place] [phone] (admission coordinated by ADM -Ariadna Sheffield ext [phone]) [facility], [place], [place]: [phone]; Men's services inpt. & women services - Outpt. [place], [place] [phone] [facility], [place], [place] [phone] [facility] [place], [place] [phone] [facility], [place], [place] [phone] [facility] [place], [place] [phone] [facility] - [place], [place] [phone] [facility], [place], [place] [phone] [place], [place] [phone] [facility] So[facility] living [phone] OTHER SERVICES: [employer] [facility] - [employer] Market Consultant Service: [phone] (more content not included)...[facility]03-17-2025 Physician Emergency department Note* Edgar Powers [...] he wishes to pursue inpatient detox at [facility]). I considered serotonin syndrome but this would [...] Emergency Medicine Edgar Powers MD 08/14/24 0706 [facility]Snxuoq68-27-3011 Physician Emergency department Note* Cynthia Schulte, - 08/13/2024 9:31 AM EDT Emergency Department Encounter Location: [facility] ED Patient: Mayito Forbes : 1985 Date [...] 375 ms QTC Interval 427 ms P Madrid 75 degrees QRS Madrid 40 degrees T Wave Madrid 66 degrees NV Interval 164 ms SARS-CoV-2 Antigen Collection Time: [...] Was initially admitted to detox over at [facility] however patient's insurance is not in network here. Patient's insurance is in network only at [facility]. His labs are notable for mild leukocytosis 11.6, elevated ketones in his urine, UDS positive for fentanyl, no other drugs on board. Alcohol was negative. Patient received multiple medications for his opioid withdrawal. His chest x-ray was normal as well. I spoke with Dr. Montoya from [facility] who accepted the patient for transfer [...] 1243) I Cynthia Puckett DO am the director of primary care of record. Final Impression 1. Opiate withdrawal (HCC) DISPOSITION Transfer To Another Facility 08/13/2024 06:22:48 PM (Please note that portions of this note may have been completed with a voice recognition program. Efforts were made to edit the dictations but occasionally words are mis-transcribed.) Cynthia Puckett DO [employer] Cynthia Puckett DO 08/13/24 1824 [facility] [employer] Work Phone: [phone] Physician Emergency department Note* Edgar Powers MD - 08/13/2024 9:31 AM EDT I re-inherited this patient on my shift today. After signout, it was determined that his insurance would not support and admission to [facility]. Therefore he was accepted at [facility]. However no beds have been available and he is now awaiting a bed. On my reassessment at around 1 PM today, patient looks dramatically better. He is reporting resolution of his withdrawal symptoms. He does not wish to wait any longer with no bed insight at [facility]. He wishes to be discharged. He is feeling much improved. Declines prescription for clonidine.Will prescribe Zofran. Edgar Powers MD 08/14/24 1320 [facility] CenterRplvdy79-74-2708 History of Present illness Narrative* Alyson Alexander LPN - 04/12/2024 3:04 PM EST Chart reviewed of ED follow up Seen in [facility] ED on 04/11/24 Reason: drug overdose Discharge instructions: PATIENT REFERRED TO: John Andrews MD [address] [place] [address], [address] [facility] [address] Called number of record, no voicemail set [...] have for today. Thank you for choosing [facility], always remember we have same day or telehealth visits available. We encourage you to call the office if sudden health changes occur before going to ED. We have nurses available 20/12 available to help. If patient calls back, please assist with scheduling a ED follow up appointment.. documented in this encounterSBarney Children's Medical CenterTwbxxp23-69-2098 NoteIMPRESSION: Sinus rhythm Abnormal R-wave progression, late transition INFERIOR Q WAVES, PROBABLY NORMAL VARIATION Compared to 11/08/2023 Electronically Signed On 04-11-2024 01:51:25 EST by James [facility]Corewell [facility]11-13-2024 NoteSinus rhythm Abnormal R-wave progression, late transition INFERIOR Q WAVES, PROBABLY NORMAL VARIATION Compared to 11/08/2023 Electronically Signed On 04-11-2024 01:51:25 EST by James Le [facility] 04-11-2024 NoteSinus rhythm Abnormal R-wave progression, late transition INFERIOR Q WAVES, PROBABLY NORMAL VARIATION Compared to 11/08/2023 Electronically Signed On 04-11-2024 01:51:25 EST by James Le [facility] 04-11-2024 Emergency department Note* James Neil MD - [...] min Stress: No Stress Concern Present (10/25/2023) [employer] Occupational Health - Occupational Stress Questionnaire Feeling of Stress : Not at all Social Connections: Moderately Isolated (10/25/2023) Social Connection and Isolation Panel [NHANES] Frequency of Communication with Friends and Family: Three times a week Frequency of Social Gatherings with Friends and Family: Three times a week Attends Evangelical Services: Never Active Member of Clubs or [...] AM PATIENT REFERRED TO: John Andrews MD [address] [place] [address], [address] [facility] [phone] Schedule an appointment as soon as possible for a visit [facility] ED [address] [place] [phone] Go to As needed, If symptoms [...] Neil MD 04/11/24 0436 documented in this [facility]11-13-2024 Physician Emergency department Note* James Neil [...] min Stress: No Stress Concern Present (10/25/2023) [employer] Occupational Health - Occupational Stress Questionnaire Feeling of Stress : Not at all Social Connections: Moderately Isolated (10/25/2023) Social Connection and Isolation Panel [NHANES] Frequency of Communication with Friends and Family: Three times a week Frequency of Social Gatherings with Friends and Family: Three times a week Attends Evangelical Services: Never Active Member of Clubs or [...] AM PATIENT REFERRED TO: John Andrews MD [address] [place] [address], [address] [facility] [address] Schedule an appointment as soon as possible for a visit [facility] ED [address] [place] [phone] Go to As needed, If symptoms [...] Medicine Provider James Neil MD 04/11/24 0436 [facility] CenterAlzqxd34-21-8213 Telephone encounter Note* Telephone Encounter - Vianey [...] Will return to ED if symptoms worsen. [facility] CenterYzwkuc91-90-6199 Miscellaneous Notes* Telephone Encounter - Vianey Proctor [...] ED if symptoms worsen. documented in this encounterSBarney Children's Medical CenterHfvgyi18-29-1327 Telephone encounter Note* Telephone Encounter - Vianey Proctor RN - 12/02/2023 6:43 PM EDT No answer, voicemail is not set up. [facility] CenterFahyxb80-25-8435 Miscellaneous Notes* Telephone Encounter - Vianey Proctor RN - 12/02/2023 6:43 PM EDT No answer, voicemail is not set up. documented in this encounterSBarney Children's Medical CenterXhjnhy30-13-6922 [facility] Medical Records Department [address] [place] [address] Discharge Summary 11/11/23 1018 MR#: [id number] Acct: [id number] Name: MAYITO FORBES Rep #: [id number] : 1985 38 From: Kyler Nance DO PCP: Care Physician,No Primary Status:ADM IN Location: [place] [id number] Providers Date of Admission: 11/08/23 Date of Discharge: 11/11/23 Primary Care Physician: No Primary Care Phys Consultations 11/09/23 03:48 Consult: Gastroenterology Routine Consulting Provider: [facility] Reason for Consult: ascending colon wall [...] opiate detox, patient was directly admitted to [place] [address], he was transferred due to the fact he was dissatisfied with the detox program in [place]-they were not administering Subutex to the patient. Prior to his admission to the detox unit in [place], patient had been seen in the emergency room there for nausea and vomiting, the CT of the abdomen was obtained which shows thickening of the bowel wall. Patient was admitted to [place] [address], orders were entered using the opiate detox order set, and the patient was seen in consultation by gastroenterology who performed a colonoscopy which showed no abnormality whatsoever. Patient was seen by addiction social insurance analyst and he requested to do an outpatient [...] PO DAILY venlafaxine 150 (more content not included)...[facility] 11-10-2023 Telephone encounter Note* Telephone Encounter - Vianey Proctor RN - 11/10/2023 8:54 PM EDT No answer, voicemail not set up. [facility] CenterFwxtho55-18-9941 Miscellaneous Notes* Telephone Encounter - Vianey Proctor RN - 11/10/2023 8:54 PM EDT No answer, voicemail not set up. documented in this encounterSBarney Children's Medical CenterUcmnut34-51-8323 Emergency department Note* Caroline Appiah RN - 11/08/2023 7:26 PM EDT Report to KIMMY Banks. Caroline Appiah RN 11/08/231925 [facility] CenterXddksw50-34-4854 Emergency department Note* Caroline Appiah RN - 11/08/2023 7:26 PM EDT Report to RN. Caroline Banks RN 11/08/231925 * Caroline Appiah RN - 11/08/2023 7:00 PM EDT This RN contacted RN assuming care of patient at [facility]. Per RN patient is okayto transfer [...] KIMMY Moran on med surg 3 at [facility]. Caroline Appiah RN 11/08/23 1600 * [...] RN - 11/08/2023 12:17 PM EDT This [facility] RN saw patient for KI consult. Last use of fentanyl was on 11/07/23 at 2 am. He used about1/2 gram. COWS is a 7. Patient has to be prompted to answer questions as he is drowsy. He wants to stop fentanyl use and go to detox. He does not want to go to residential or [facility] after detox. His preference is Vivitrol MAT. I explained I could find him MAT in his insurance network and printed a list. He stated he would go to [facility] in [place]. I spoke to [facility] to ensure they accepted his insurance. They do accept [employer]. They suggested [facility] also has detox unit if he requires [...] 11/08/2023 8:30 AM EDT Emergency Department Encounter [facility] EMERGENCY DEPT Patient: Mayito Forbes : [...] patient's insurance he will be transferred to [facility] for medical admission for intractable nausea [...] min Stress: No Stress Concern Present (10/25/2023) [place] of Occupational Health - Occupational Stress Questionnaire Feeling of Stress : Not at all Social Connections: Moderately Isolated (10/25/2023) Social Connection and Isolation Panel [NHANES] Frequency of Communication with Friends and Family: Three times a week Frequency of Social Gatherings with Friends and Family: Three times a week Attends Evangelical Services: Never Active Member of Clubs or [...] mg (4 mg IntraVENous Given 11/08/23 1919) [facility] MDM elements: The patient presented with chief [...] Facility 11/08/2023 03:08:34 PM PATIENT REFERRED TO: [facility] [address] [place] [address] Call for addictions treatment resources, referrals [facility] Crisis Line [phone] ([phone]) Call for immediate addictions and mental health support [facility] [address] [place] [address] Go to as needed. In network with [employer] insurance DISCHARGE MEDICATIONS: Discharge Medication List as [...] 6:41 PM EDT Emergency Department Encounter Location: [facility] EMERGENCY [facility]PT Patient: Mayito Forbes : [...] insurance and could not be admitted to [facility] facility without being full self-pay. Patient notified of same. Collaboration took place between myself, ED Attending Dr. Lainez, Social Work, TCC, and MAT RN. Ultimately it was determined that patient would be best served at [facility] where he could be admitted medically, but [...] did discuss this patient with hospitalist at [place], who agreed to accept patient. Patient will be transferred to [facility] for admission for further treatment. Medications ondansetron [...] IntraVENous Given 11/08/23 0540) I am the director of primary care of record. Final Impression 1. Fentanyl use [...] Quinteros CNP 11/08/23 1607 documented in this [facility]06-11-2024 Emergency department Note* Caroline Appiah RN - 11/08/2023 7:00 PM EDT This RN contacted RN assuming care of patient at [facility]. Per RN patient is okayto transfer with peripheral IV. Caroline Appiah RN 11/08/23 1900 [facility] CenterPptgba00-91-4177 Emergency department Note* Caroline Appiah RN - 11/08/2023 6:57 PM EDT Pt rounded on at this time. Pt reports nausea is returning at this time. This RN to contact provider who assumed care of patient. Caroline Appiah RN 11/08/23 1857 [facility] CenterMcutxt08-38-4956 Emergency department Note* Caroline Appiah RN - 11/08/2023 6:32 PM EDT This RN went to round on patient to complete COWS screen and pain assessment. Pt currently alseep. RR even and unlabored. Pt remains on monitor. Caroline Appiah RN 11/08/23 1833 [address]Joxdwn46-14-9475 Emergency department Note* Caroline Appiah RN - 11/08/2023 4:25 PM EDT DM ETA 1830. Caroline Appiah RN 11/08/23 1625 [facility] CenterDxgdry49-53-2388 Emergency department Note* Caroline Appiah RN - 11/08/2023 4:04 PM EDT This RN went over detox rules for a second time with patient. Patient agrees with all rules, and verbalizes understanding if any rules are broken. Caroline Appiah RN 11/08/23 1605 [facility] CenterIwxgou50-55-2267 Emergency department Note* Caroline Appiah RN - 11/08/2023 4:04 PM EDT Pt denies wanting to eat at this time. Pt requesting kameron izabella. Pt provided kameron izabella at this time. Caroline Appiah RN 11/08/23 1604 [facility] CenterBeoifl46-77-6715 Emergency department Note* Caroline Appiah RN - 11/08/2023 4:00 PM EDT Report to KIMMY Moran on med surg 3 at [facility]. Caroline Appiah RN 11/08/23 1600 [facility] CenterFdioxz99-67-1376 Emergency department Note* Caroline Appiah RN - 11/08/2023 1:12 PM EDT Report to KIMMY East. Caroline Appiah RN 11/08/23 1312 [facility] CenterPtpgao78-05-1293 Emergency department Note* Caroline Appiah RN - 11/08/2023 1:04 PM EDT EKG at bedside. Caroline Appiah RN 11/08/23 1304 [facility] CenterBoukbu09-70-5687 Emergency department Note* Caroline Appiah RN - 11/08/2023 12:47 PM EDT NOE [place] made aware of patient tachycardia. This RN requested EKG. Caroline Appiah RN 11/08/23 1248 [facility] CenterGvzsio97-84-5910 Emergency department Note* Vianey Proctor RN - 11/08/2023 12:17 PM EDT This [facility] RN saw patient for KI consult. Last use of fentanyl was on 11/07/23 at 2 am. He used about1/2 gram. COWS is a 7. Patient has to be prompted to answer questions as he is drowsy. He wants to stop fentanyl use and go to detox. He does not want to go to residential or [facility] after detox. His preference is Vivitrol MAT. I explained I could find him MAT in his insurance network and printed a list. He stated he would go to [facility] in [place]. I spoke to [facility] to ensure they accepted his insurance. They do accept [employer]. They suggested [facility] also has detox unit if he requires detox prior to MAT. Providers notified. Vianey Proctor RN 11/08/23 1218 Vianey Proctor RN 11/08/23 1256 Vianey Proctor RN 11/08/23 1257 Vianey Proctor RN 11/08/23 1637 [facility] CenterOpbgbq97-03-3802 Emergency department Note* Caroline Appiah RN - 11/08/2023 12:06 PM EDT NOE [place] made aware of COWS score. Caroline Appiah RN 11/08/23 1207 [facility] CenterExbuzd62-58-6911 Emergency department Note* Caroline Appiah RN - 11/08/2023 11:46 AM EDT Pt rounded on at this time. Pt reports to this RN he is still nauseous. NOE [place] notified. Caroline Appiah RN 11/08/23 1147 [facility] CenterAlutok82-91-3668 Note* Care Coordination - Sirena Ortiz RN - 11/08/2023 9:50 AM EDT TCC asked by the ED MARINE SCIENTIST to assist with pt status of OON with [employer]. TCC was able to find a few select hospitals including [facility], [facility]. Provider updated via secure chat. [facility] CenterUijkfb39-43-1459 Note* Care Coordination - Sirena Ortiz RN - 11/08/2023 9:50 AM EDT TCC asked by the ED MARINE SCIENTIST to assist with pt status of OON with [employer]. TCC was able to find a few select hospitals including [facility], [facility] all [facility]. Provider updated via secure chat. [facility] CenterSlomtf30-29-5181 Miscellaneous Notes* Care Coordination - Sirena Ortiz RN - 11/08/2023 9:50 AM EDT TCC asked by the ED MARINE SCIENTIST to assist with pt status of OON with [employer]. TCC was able to find a few select hospitals including [facility], [facility]. Provider updated via secure chat. * Care Coordination - AARON Matute - 11/08/2023 9:49 AM EDT ED SW follow up. SW consulted by PORCELAIN ENAMELING SUPERVISOR for in network addictions resources and supports. Patient's [employer] insurance not in network with [facility]. Patient also from out [facility]. SW provide [facility] hotline, placed information in patient's AVS. Included [facility] as well since it is in network with insurance. documented in this encounterSBarney Children's Medical CenterTkywxp14-57-3107 Note* Care Coordination - AARON Matute - 11/08/2023 9:49 AM EDT ED SW follow up. SW consulted by PORCELAIN ENAMELING SUPERVISOR for in network addictions resources and supports. Patient's [employer] insurance not in network with [facility]. Patient also from out [facility]. SW provide [facility], placed information in patient's AVS. Included [facility] as well since it is in network with insurance. [facility] CenterSqknbr75-18-2657 Note* Care Coordination - AARON Matute - 11/08/2023 9:49 AM EDT ED SW follow up. SW consulted by PORCELAIN ENAMELING SUPERVISOR for in network addictions resources and supports. Patient's [employer] [facility] Patient also from out [facility]. [facility] & [facility] Crisis hotline, placed information in patient's AVS. Included [facility] as well since it is in network with insurance. [facility] CenterRgdhvr28-77-0108 Physician Emergency department Note* Marc Lainez DO - 11/08/2023 8:30 AM EDT Emergency Department Encounter [facility] EMERGENCY DEPT Patient: Mayito Forbes : [...] patient's insurance he will be transferred to [facility] for medical admission for intractable nausea [...] [employer] Marc Lainez DO 11/08/23 1411 [employer] Phone: [phone]) 412-608406-11-2024 Emergency department Note* Caroline Appiah RN - 11/08/2023 8:18 AM EDT NOE [place] notified of n/v episode. Caroline Appiah RN 11/08/23 1022 [facility] [id number] Emergency department Note* Caroline Appiah RN - 11/08/2023 8:17 AM EDT This RN went to PO challenge patient per NOE [place]. Pt reports he had another episode of n/v. Emesis noted in Emesis bag. Caroline Appiah RN 11/08/23 0818 [facility] [id number] Emergency department Note* Caroline Appiah RN - 11/08/2023 7:39 AM EDT Pt resting in bed with eyes closed. Pt remains on monitor at this time. No signs of distress noted.Breathing even and unlabored. Caroline Appiah RN 11/08/23 0740 [facility] CenterBjoeck22-77-0515 Emergency department Note* Susy Carolina MA - 11/08/2023 2:38 AM EDT Called patient for vitals. No answer. Susy Carolina MA 11/08/23 0239 [facility] CenterBugzga06-92-9145 NoteNOTE: This result is for medical treatment only. Analysis performed using non-forensic procedures. [facility] CenterCljunc45-25-4756 Physician Emergency department Note* FLORIDA Fall CNP [...] min Stress: No Stress Concern Present (10/25/2023) [place] [employer]per of Occupational Health - Occupational Stress Questionnaire Feeling of Stress : Not at all Social Connections: Moderately Isolated (10/25/2023) Social Connection and Isolation Panel [NHANES] Frequency of Communication with Friends and Family: Three times a week Frequency of Social Gatherings with Friends and Family: Three times a week Attends Evangelical Services: Never Active Member of Clubs or [...] Response: Oriented Best Motor Response: Follows commands [place] Coma Scale Score: 15 PHYSICAL EXAM ED [...] mg (4 mg IntraVENous Given 11/08/23 1919) [facility] MDM elements: The patient presented with chief complaint of nausea vomiting fentanyl. The differential diagnosis associated with this patient's presentation includes nausea vomiting gastroenteritis versus gastritis versus diverticulitis versus diverticulosis versus actable nausea vomiting can Pryor to opiate and marijuana abuse. Our workup [...] Facility 11/08/2023 03:08:34 PM PATIENT REFERRED TO: [facility] [address] [place] [address] Call for addictions treatment resources, referrals [facility] Crisis Line [phone] ([phone]) Call for immediate addictions and mental health support [address] [place] [address] Go to as needed. In network with [employer] insurance DISCHARGE MEDICATIONS: Discharge Medication List as [...] Emergency Medicine Provider FLORIDA Fall CNP 11/08/232221 [facility] CenterXfnelb87-42-3270 Physician Emergency department Note* FLORIDA Quinteros CNP - 11/07/2023 6:41 PM EDT Emergency Department Encounter Location: [facility] EMERGENCY [facility] Patient: Mayito Forbes : [...] insurance and could not be admitted to [facility] facility without being full self-pay. Patient notified of same. Collaboration took place between myself, ED Attending Dr. Lainez, Social Work, [facility], and MAT RN. Ultimately it was determined that patient would be best served at [facility] where he could be admitted medically, but [...] did discuss this patient with hospitalist at [place], who agreed to accept patient. Patient will be transferred to [facility] for admission for further treatment. Medications ondansetron [...] IntraVENous Given 11/08/23 0540) I am the director of primary care of record. Final Impression 1. Fentanyl use [...] [employer] FLORIDA Quinteros CNP 11/08/23 1609 [employer] Phone: 1(168) 297-755206-03-2024 Telephone encounter Note* Telephone Encounter - John Andrews MD - 10/31/2023 7:24 AM EDT Okay, thank you but I do not treat opioid use disorders. [employer] Phone: 1([phone]) 234-212706-03-2024 Miscellaneous Notes* Telephone Encounter - John Andrews MD - 10/31/2023 7:24 AM EDT Okay, thank you but I do not treat opioid use disorders. * Telephone Encounter - Jose Carcamo RN - 10/29/2023 9:26 AM EDT S: [facility] Inpatient provider requesting new patient/transition of care appointment for Opioid Use Disorder & Nausea/Vomiting. Pt discharged today 10/29/23 B: New patient appt A: Pt located in [place] per provider. R: Pt scheduled 11/02/23 with at [facility]. Provider notified. documented in this encounterSBarney Children's Medical [id number] Nurse Note* Enzo Guzman RN - 10/29/2023 10:20 AM EDT Discharge orders reviewed. Pt home meds returned. Work release provided by attending. [facility] [id number] Nurse Note* Enzo Guzman RN - 10/29/2023 10:20 AM EDT Discharge orders reviewed. Pt home meds returned. Work release provided by attending. * Philip Foote RN - 10/27/2023 11:04 AM EDT Pt IV removed at this time per Dr. Conway. documented in this encounterSBarney Children's Medical [id number] Telephone encounter Note* Telephone Encounter - Jose Carcamo RN - 10/29/2023 9:26 AM EDT S: [facility] Inpatient provider requesting new patient/transition of care appointment for Opioid Use Disorder & Nausea/Vomiting. Pt discharged today 10/29/23 B: New patient appt A: Pt located in [place] per provider. R: Pt scheduled 11/02/23 with at [facility]. Provider notified. [facility] [id number] NoteHospitalist Discharge Summary Mayito Forbes : 1985 [...] Effexor XR Recommended Follow-up: John Andrews MD [facility] [address] [facility] [address] Go to at [facility] on 11/02/23 at 10:30 am. [place] is located at [address] [place] [address] Please show up 15 minutes early to get paper work completed. Complexity of Follow up: [] Moderate Complexity: follow up within 7-14 calendar days (11252) [x] Severe Complexity: follow up within 7 calendar days (98034) Follow up Testing, Pending results or Referrals [...] Sara Hughes MD Division of Hospitalist Medicine [facility] 10/29/2023, 12:50 [facility] [id number] Hospital course Narrative* Sara Hughes MD - [...] XR Recommended Follow-up: John Andrews MD S. [facility], [facility] [address] [facility] [address] Go to at [facility] on 11/02/23 at 10:30 am. [place] is located at [address] [facility] [address] Please show up 15 minutes early to get paper work completed. Complexity of Follow up: [] Moderate Complexity: follow up within 7-14 calendar days (94285) [x] Severe Complexity: follow up within 7 calendar days (12978) Follow up Testing, Pending results or Referrals [...] Sara Hughes MD Division of Hospitalist Medicine [facility] 10/29/2023, 12:50 PM documented in this [facility]05-31-2024 History of Present illness Narrative* Ole [...] min Stress: No Stress Concern Present (10/25/2023) [place] [employer] of Occupational Health - Occupational Stress Questionnaire Feeling of Stress : Not at all Social Connections: Moderately Isolated (10/25/2023) Social Connection and Isolation Panel [NHANES] Frequency of Communication with Friends and Family: Three times a week Frequency of Social Gatherings with Friends and Family: Three times a week Attends Evangelical Services: Never Active Member of Clubs or [...] portions of the note are written utilizing GetSet software. While every effort is made todictate clearly and proofread, errors in the dictation may still occur. If there are any questions regarding the dictation please do not hesitate to contact the author. * Leslye Etienne MD - 10/28/2023 11:33 AM EDT Hospitalist Progress Note 10/28/2023 [phone]: Please page me ([phone]) for patient care issues. [phone]: Please page [facility] Hospitalist for any issues. Subjective: Admit [...] MD Division of Hospitalist Medicine Inpatient Medical Services/[facility] * Jenna Urbano - 10/27/2023 2:18 PM [...] he is not willing to transfer to [facility]. He is willing to stay at [facility] and complete detoxification. Social History Socioeconomic History [...] min Stress: No Stress Concern Present (10/25/2023) [place] [employer] Occupational Health - Occupational Stress Questionnaire Feeling of Stress : Not at all Social Connections: Moderately Isolated (10/25/2023) Social Connection and Isolation Panel [NHANES] Frequency of Communication with Friends and Family: Three times a week Frequency of Social Gatherings with Friends and Family: Three times a week Attends Evangelical Services: Never Active Member of Clubs or [...] 0 ms QTC Interval 0 ms P [place] 76 degrees QRS [place] 75 degrees T Wave [place] 74 degrees NV Interval 115 ms Fentanyl, urine Collection Time: [...] portions of the note are written utilizing GetSet software. While every effort is made todictate [...] to tolerate a regular breakfast today, had Malawian toast. No significant abdominal pain today. States [...] 0 ms QTC Interval 0 ms P [place] 76 degrees QRS [place] 75 degrees T Wave [place] 74 degrees NV Interval 115 ms Urine Culture: No results [...] admission here versus admit to detox at [facility], Dr. Conway discussed with patient, he was [...] 0 ms QTC Interval 0 ms P [place] 76 degrees QRS [place] 75 degrees T Wave [place] 74 degrees NV Interval 115 ms Urine Culture: No results [...] dictating provider for clarification) documented in this [facility]05-31-2024 NoteHospitalist Progress Note 10/28/2023 [phone]: Please page me ([phone]) for patient care issues. [phone]: Please page [facility] Hospitalist for any issues. Subjective: Admit [...] MD Division of Hospitalist Medicine Inpatient Medical Services/[facility]05-31-2024 Note* Care Coordination - Sirena Plunkett RN - 10/28/2023 10:48 AM EDT Care Managment Initial Assessment Date: 10/28/2023 Patient Name: Mayito Forbes : 1985 Patient Information Source of Information: Patient Cognition/Language: WFL - Within Functional Limits Permission given to speak with patient direct marketing representative/caregiver as indicated: Yes (Audrey Ayers (Significant Other) [phone]) Confirmation of Payer with patient/family: Yes Payer Name: BioVex 2- [employer] Med[employer]. [place]: No Confirmation of Primary Care Physician: No [...] will continue to follow. Sirena Plunkett RN [facility] [id number] Note* Care Coordination - Sirena Plunkett RN - 10/28/2023 10:48 AM EDT Care Managment Initial Assessment Date: 10/28/2023 Patient Name: Mayito Forbes : 1985 Patient Information Source of Information: Patient Cognition/Language: WFL - Within Functional Limits Permission given to speak with patient direct marketing representative/caregiver as indicated: Yes (Audrey Ayers (Significant Other) [phone]) Confirmation of Payer with patient/family: Yes Payer Name: BioVex 2- [employer] Medcaid. [place]: No Confirmation of Primary Care Physician: No [...] will continue to follow. Sirena Plunkett RN [facility] CenterMamaxo10-02-8367 Miscellaneous Notes* Care Coordination - Sirena Plunkett RN - 10/28/2023 10:48 AM EDT Care Managment Initial Assessment Date: 10/28/2023 Patient Name: Mayito Forbes : 1985 Patient Information Source of Information: Patient Cognition/Language: WFL - Within Functional Limits Permission given to speak with patient direct marketing representative/caregiver as indicated: Yes (Audrey Ayers (Significant Other) [phone]) Confirmation of Payer with patient/family: Yes Payer Name: BioVex 2- [employer] Medcaid. : No Confirmation of [...] Josef Guerra MD Division of Hospitalist Medicine [facility] documented in this [facility]05-31-2024 Hospital Discharge instructions* Discharge Instr - Other Orders* Sirena Plunkett RN - 10/28/2023 10:[address] Guo is in [place] [phone] [place] has several drs at their practices [phone] or [phone] [facility] [phone] * Attachments The following attachments cannot be sent through Care Everywhere. * Dealing With Nausea and Vomiting From the Drugs You Take (Equatorial Guinean) * Drug Abuse and Drug Addiction Discharge Instructions (Equ[place]inean) documented in this [facility]05-30-2024 Plan of care note* Care Plan [...] Recommendations to address these barriers include none. [facility] [id number] NoteCDU MARYELLEN Progress Note 10/27/2023 11:18 AM Subjective: Admit Date: 10/25/2023 PCP: No primary care provider on file. Interval History: No overnight issues. Patient feeling much better from nausea vomiting standpoint, was able to tolerate a regular breakfast today, had Malawian toast. No significant abdominal pain today. States [...] 3.5 - 5.1 mmol/L (more content not included)...[facility]05-30-2024 Note* Significant Event - Josef Guerra MD - 10/27/2023 11:11 AM EDT Transfer from CDU to service. Josef Guerra MD Division of Hospitalist Medicine [facility] [employer] Work Phone: [phone] Note* Significant Event - Josef Guerra MD - 10/27/2023 11:11 AM EDT Transfer from CDU to service. Josef Guerra MD Division of Hospitalist Medicine [facility] [employer] Work Phone: [phone] Nurse Note* Philip Foote RN - 10/27/2023 11:04 AM EDT Pt IV removed at this time per Dr. Conway. [id number] NoteCDU Progress Note 10/26/2023 12:29 PM Subjective: [...] 10*3/uL Basic metabolic pane (more content not included)...[facility] 10-26-2023 Consult note* Ole Conway MD - 10/26/2023 10:33 AM EDTAssociated Order(s): IP CONSULT TO ADDICTION MEDICINE Images from the original note were not included. Addiction Medicine Patient: Mayito Forbes Admit Date: 10/25/2023 Primary Care Physician: No primary care provider on file. History of Present Illness The patient is a 38-year-old male presenting to [facility] for complaints of vomiting, diarrhea, generalized [...] he states he has been involved in [employer] [place] but obviously has been unable to stay clean. He intends to return to [facility]. Social History Socioeconomic History Marital status: Single [...] min Stress: No Stress Concern Present (10/25/2023) [place] [employer] of Occupational Health - Occupational Stress Questionnaire Feeling of Stress : Not at all Social Connections: Moderately Isolated (10/25/2023) Social Connection and Isolation Panel [NHANES] Frequency of Communication with Friends and Family: Three times a week Frequency of Social Gatherings with Friends and Family: Three times a week Attends Evangelical Services: Never Active Member of Clubs or [...] 0 ms QTC Interval 0 ms P [place] 76 degrees QRS [place] 75 degrees T Wave [place] 74 degrees NV Interval 115 ms Fentanyl, urine Collection Time: [...] he does plan to follow-up with the [facility]. Ole Conway MD Addiction Medicine 10/26/2023 at 10:33 AM --75-- minutes were spent reviewing the patient's records, evaluating the patient, entering orders,coordinating care with the treatment team, and creating a progress note. Narrative portions of the note are written utilizing GetSet software. While every effort is made todictate clearly and proofread, errors in the dictation may still occur. If there are any questions regarding the dictation please do not hesitate to contact the author. [facility] [id number] Consult note* Ole Conway MD - 10/26/2023 10:33 AM EDT Associated Order(s): IP CONSULT TO ADDICTION MEDICINE Images from the original note were not included. Addiction Medicine Patient: Mayito Forbes Admit Date: 10/25/2023 Primary Care Physician: No primary care provider on file. History of Present Illness The patient is a 38-year-old male presenting to [facility] for complaints of vomiting, diarrhea, generalized [...] stay clean. He intends to return to [facility]. Social History Socioeconomic History Marital status: Single [...] min Stress: No Stress Concern Present (10/25/2023) [place] [employer] of Occupational Health - Occupational Stress Questionnaire Feeling of Stress : Not at all Social Connections: Moderately Isolated (10/25/2023) Social Connection and Isolation Panel [NHANES] Frequency of Communication with Friends and Family: Three times a week Frequency of Social Gatherings with Friends and Family: Three times a week Attends Evangelical Services: Never Active Member of Clubs or [...] 0 ms QTC Interval 0 ms P [place] 76 degrees QRS [place] 75 degrees T Wave [place] 74 degrees NV Interval 115 ms Fentanyl, urine Collection Time: [...] he does plan to follow-up with the [facility]. Ole Conway MD Addiction Medicine 10/26/2023 at 10:33 AM --75-- minutes were spent reviewing the patient's records, evaluating the patient, entering orders,coordinating care with the treatment team, and creating a progress note. Narrative portions of the note are written utilizing GetSet software. While every effort is made todictate clearly and proofread, errors in the dictation may still occur. If there are any questions regarding the dictation please do not hesitate to contact the author. documented in this [facility]05-28-2024 History and physical note* Berna Rodríguez, MARINE SCIENTIST - FORESTRY BIOLOGY SPECIALIST - 10/25/2023 1:53 PM EDT CDU History [...] Culture. Procedure Abnormality Status --------- ------ Complete Urinalysis[[id number]] Please view results for these tests on [...] the ED. External records reviewed: Admitted to [facility] CDU on 06/07/23 for same symptoms. Also [...] complexity of this case is: Nichole Rodríguez, MARINE SCIENTIST - FORESTRY BIOLOGY SPECIALIST CDU Advanced Practice Provider [facility] (Comment: Please note this report has been produced using speech recognition software and may contain errors related to that system including errors in grammar, punctuation, and spelling, as well as words and phrases that may be inappropriate. If there are any questions or concerns please feel freeto contact the dictating provider for clarification.) [facility] [id number] NoteCDU History and Physical Admit Date: 10/25/2023 [...] SCREEN STAT LAB COMPL (more content not included)...[facility]05-28-2024 History and physical note* Berna Rodríguez, MARINE SCIENTIST - FORESTRY BIOLOGY SPECIALIST - 10/25/2023 1:53 PM EDT CDU History [...] 650 mg Rectal q6h PRN Berna Negrons, MARINE SCIENTIST - NOE haloperidol lactate (Haldol) injection 2 mg 2 mg IntraVENous Once Ángela FLORIDA Torres CNP ondansetron ODT (Zofran-ODT) disintegrating tablet 4 mg 4 mg Oral q8h PRN Berna NegronsFLORIDA - NOE Or ondansetron (Zofran) injection 4 mg 4 mg IntraVENous q6h PRN Berna Negrons, MARINE SCIENTIST - NOE polyethylene glycol (PEG) 3350 (Miralax) [...] Culture. Procedure Abnormality Status --------- ------ Complete Urinalysis[[id number]] Please view results for these tests on [...] the ED. External records reviewed: Admitted to [facility] CDU on 06/07/23 for same symptoms. Also [...] dictating provider for clarification.) documented in this [facility]05-28-2024 Emergency department Note* FLORIDA Melgoza CNP [...] Currently Drug use: Yes Types: Methamphetamines SCREENINGS [place] Coma Scale Best Eye Response: Spontaneous Best [...] 10/25/2023 8:45 AM EDT Emergency Department Encounter [facility] ED Patient: Mayito Forbes : 1985 Date [...] for clarification.) James Neil MD Acute Care [facility] James Neil MD 10/26/23 1502 documented in this [facility]05-28-2024 Physician Emergency department Note* FLORIDA Melgoza [...] contact the dictating provider for clarification.) FLORIDA Melgzoa CNP (electronically signed) Emergency Medicine Provider FLORIDA Melgoza CNP 10/25/23 1323 [place] Melgoza CNP 10/25/23 1325 [facility] [id number] Physician Emergency department Note* James Neil MD - 10/25/2023 8:45 AM EDT Emergency Department Encounter [facility] ED Patient: Mayito Forbes : 1985 Date [...] [employer] James Neil MD 10/26/23 1502 [facility] Work Phone: 1(315) 425-823004-30-2024 NoteHNO ID: [id number] Author: MARC FUNG LSW Service: Care Management Author Type: Learning Services Coordinator Type: Care Mgt Progress Note Filed: 09/27/2023 14:36 Note Text: CARE MANAGEMENT PROGRESS NOTE SERVICE DATE: 09/27/2023 SERVICE TIME: 10:45 AM LOS: 0 days Follow Up The patient was sleeping and declined to wake up to discuss his past substance use and social work noticed his tox screen has not been done yet. Nursing reports they are waiting on urine sample. At [facility] on 06-07-23 +THC and neg for [...] he used Delta 8 THC bought at [email or web address] and was updated that it is synthetic [...] 27, 2023 TIME: 10:54 AM PAGER/CONTACT #: [phone] 09-27-2023 NoteHNO ID: [id number] Author: LISSET HAMILTON RN Service: Care Management [...] Status: Observation Insurance Provider: [employer] MEDICAID [facility] Discharge Planning requested by: Per Department Practice Potential Transition Plans Advance Directives Current Living Arrangements and Support Lives with: Spouse/significant other (Patient lives with significant toher and her 7 year old daughter) Type of Residence: Private Residence (House) Support: Current Services/Equipment Discharge Planning Patient Goal(s): [facility] Explained: [facility] Given: No Reason Not Given: No placements necessary Are you interested in bedside delivery of your medications? No Discharge Planning Participant(s): Patient/Family Comments: Caregiver Assessment: Transport at Discharge: Needs Prior to Discharge: Needs Prior to Discharge: To Be Determined;Other: See Comment (social work to see for polysubstance use) Post-Acute Discharge Plan: Patient admitted to [facility] under OBS with c/o SELMA. Patient [...] 27, 2023 TIME: 8:43 AM CONTACT #: [phone]04-30-[facility] Note HNO ID: [id number] Author: CHLOE SHAFFER RN Service: Nursing Author Type: Registered Nurse Type: Nursing Progress Note Filed: 09/27/2023 00:02 Note Text: Bed number given to ED at this timeM[facility]04-29-2024 History of Present illness Narrative* Madhavi Justin [...] (98.4 F) SpO2 100% * Radha Batista, MARINE SCIENTIST - PORCELAIN ENAMELING SUPERVISOR - 09/26/2023 11:50 AM EDT Images from the original note were not included. [facility] URGENT [facility] [address] [place] [id number] Dept: [phone] Dept Loc: [phone] Subjective Mayito Forbes is a 38 y.o. [...] would be 23 minutes to get to [facility] emergency department. Patient stated he wanted to [...] aremis-transcribed.) BENY Huang 09/26/23 documented in this [facility]04-01-2024 NoteHNO ID: [id number] Author: GENEVA CALDERA APRN.NOE Service: ? Author [...] which included preparing to see the patient, jzzz-dt-pens patient care, completing clinical documentation, obtaining and (more content not included)...[facility]04-01-2024 History of Present illness Narrative* Geneva Caldera APRN.FORESTRY BIOLOGY SPECIALIST - 08/29/2023 5:47 PM EDT This note was created using Pro[employer]oter. Subjective Mayito Forbes is a 38 year [...] which included preparing to see the patient, vhpb-gx-zlrf patient care, completing clinical documentation, obtaining and/or reviewing separately obtained history, performing a medically appropriate examination, counseling and educating the pat ient/family/caregiver, and ordering medications, tests, or procedures. documented in this [facility]Premier [facility]04-[facility]-20[facility] Instructions* Patient Instructions* Geneva Caldera APRN.CNP - [...] firearms (especially pistols or shotguns), always wear qsfz-tiy-jts hearing protection. Turn down the volume. Listening [...] and contribute to tinnitus. documented in this encounterPremier Health [facility]03-25-2024 Hospital Discharge instructions* Discharge Instructions* León Gilmore [...] Care Everywhere. * Bruising Under the Nail (Equatorial [place]ine[place]) documented in this [facility]03-25-2024 Emergency department Note* Marc Lainez DO - 08/22/2023 10:20 PM EDT Emergency Department Encounter [facility] ED Patient: Mayito Forbes : 1985 Date [...] Medicine Provider León Gilmore II, MD Resident 08/22/23 2342 * Radha Cedeno RN - 08/22/2023 10:20 PM EDT Pt presents with L pinky finger injury after smashing with hammer at work today. Is UTD on tetanus.Some swelling and bruising noted to hand . Limited movement to finger. +tingling to fingers on L side documented in this encounterSBarney Children's Medical [id number] Emergency department Triage note* Radha Cedeno RN - 08/22/2023 10:20 PM EDT Pt presents with L pinky finger injury after smashing with hammer at work today. Is UTD on tetanus.Some swelling and bruising noted to hand . Limited movement to finger. +tingling to fingers on L side [facility] CenterVlwvbu86-44-5581 Physician Emergency department Note* Marc Lainez DO - 08/22/2023 10:20 PM EDT Emergency Department Encounter [facility] ED Patient: Mayito Forbes : 1985 Date [...] for clarification.) Marc Lainez DO Acute Care [facility] Marc Lainez DO 08/22/23 [address] [id number] Physician Emergency department Note* León Gilmore II, [...] Provider León Gilmore II, MD Resident 08/22/232 [facility] [employer] Work Phone: 1(218) 794-935801-09-2024 Hospital Discharge instructions* Discharge Instr - Activity* FLORIDA Scherer CNP - 06/07/2023 4:32 PM EST NO RESTRICTIONS * Discharge Instr - Diet* FLORIDA Scherer CNP - 06/07/2023 4:32 PM EST FOLLOW A BLAND DIET AND ADVANCE TOLERATED * Attachments The following attachments cannot be sent through Care Everywhere. * Cannabis Hyperemesis Syndrome (Equ[place] Guine[place]) documented in this encounterSBarney Children's Medical CenterWiyayz88-21-0461 Note* Care Coordination - Seven Maldonado RN - 06/07/2023 2:21 PM EST Reviewed chart. Observation status to CDU with N/V. Receiving cont ivf and prn antiemetics. Monitorlabs. Tentative discharge plan is home when medically stable. . [facility] CenterUrzsyz12-27-2929 Note* Care Coordination - Seven Maldonado RN - 06/07/2023 2:21 PM EST Reviewed chart. Observation status to CDU with N/V. Receiving cont ivf and prn antiemetics. Monitorlabs. Tentative discharge plan is home when medically stable. . [facility] CenterAtkcjh57-84-7064 Miscellaneous Notes* Care Coordination - Seven Maldonado RN - 06/07/2023 2:21 PM EST Reviewed chart. Observation status to CDU with N/V. Receiving cont ivf and prn antiemetics. [employer]. Tentative discharge plan is home when medically stable. . documented in this [facility]01-09-2024 Emergency department Note* Magdalena Rosas RN - 06/07/2023 7:52 AM EST Report given to KIMMY Daley at [facility] Magdalena Rosas RN 06/07/23 0753 [id number] Emergency department Note* Magdalena Rosas RN - 06/07/2023 7:52 AM EST Report given to KIMMY Daley at [facility] Magdalena Rosas RN 06/07/23 0753 * Meagan Obrien RN - 06/07/2023 6:20 AM EST Patient ambulated to the restroom with stand-by assistance. Patient states that he is feeling better than he did yesterday and stated that he got much needed rest. Meagan Obrien RN 06/07/23 0621 * Meaagn Obrien RN - 06/07/2023 12:58 AM EST Patient on telemetry monitoring. Meagan Obrien RN 06/07/23 0058 * eMagan Obrien RN - 06/06/2023 11:30 PM EST [...] Meagan Obrien RN 06/06/23 1950 * Meagan Obrein RN - 06/06/2023 7:15 PM EST Received [...] In compliance with this authorization, please visit www.fda.gov/media/488401/download or www.fda.gov/[employer]/614524/download to access the applicable information sheets. TROPONIN I - Normal TROPONIN I <0.012 Narrative: Patients with high levels of Biotin oral intake (ie >5 mg/day) may have falsely decreased Troponin levels. MAGNESIUM - Normal MAGNESIUM 2.0 COMPLETE URINALYSIS WITH REFLEX TO CULTURE Narrative: The following orders were created for panel order Urinalysis complete with reflex to Culture. Procedure Abnormality Status --------- ------ Complete Urinalysis[[id number]] Abnormal Final result Please view results for [...] Observation 06/07/2023 12:52:58 AM PATIENT REFERRED TO: [address] [address] Schedule an appointment as soon as possible [...] Emergency Medicine Provider James Neil MD 06/07/23 4915 * FLORIDA Elliott CNP - 06/06/2023 6:23 [...] provided by: Patient and friend (girl friend) contact center specialist used: Kayli Mayito Forbes is a 37 [...] In compliance with this authorization, please visit www.fda.gov/media/571794/download or www.fda.gov/media/900915/download to access the applicable information sheets. TROPONIN I - Normal TROPONIN I <0.012 Narrative: Patients with high levels of Biotin oral intake (ie >5 mg/day) may have falsely decreased Troponin levels. MAGNESIUM - Normal MAGNESIUM 2.0 COMPLETE URINALYSIS WITH REFLEX TO CULTURE Narrative: The following orders were created for panel order Urinalysis complete with reflex to Culture. Procedure Abnormality Status --------- ------ Complete Urinalysis[[id number]] Please view results for these tests on [...] Elliott CNP 06/07/23 0059 documented in this [facility]01-09-2024 Emergency department Note* Meagan Obrien RN - 06/07/2023 6:20 AM EST Patient ambulated to the restroom with stand-by assistance. Patient states that he is feeling better than he did yesterday and stated that he got much needed rest. Meagan Obrien RN 06/07/[address]09-2024 Emergency department Note* Meagan Obrien RN - 06/07/2023 12:58 AM EST Patient on telemetry monitoring. Meagan Obrien RN 06/07/23 0058 [facility]01-08-2024 Emergency department Note* Meagan Obrien RN - 06/06/2023 11:30 PM EST NURY Perez and this RN at bedside. Patient hard to arouse, does not answer questions when asked stares with eyes open. Meagan Obrien RN 06/07/23 0012 Meagan Obrien RN 06/07/[address]08-2024 Emergency department Note* Meagan Obrien RN - 06/06/2023 11:23 PM EST Provider notified about increase in patient HR. Meagan Obrien RN 06/06/[address]08-2024 Emergency department Note* Meagan Obrien RN - 06/06/2023 10:30 PM EST This RN called lab to get and update on the status of patient COVID swab. Lab states that they never received patients nasal swab. This RN collected another COVID nasal swab and sent a downtime form with swab along with a patient label sticker. Meagan Obrien RN 06/06/23 [address]08-2024 Emergency department Note* Meagan Obrien RN - 06/06/2023 8:24 PM EST KIMMY Iverson in room doing US IV. Meagan Obrien RN 06/06/232023 [facility]01-08-2024 Emergency department Note* Meagan Obrien RN - 06/06/2023 7:49 PM EST Notified [place] charge nurse that patient needs ultrasound IV. 3 nurse/medic attempts. Meagan Obrien RN 06/06/231949 [address]08-2024 Emergency department Note* Meagan Obrien RN - 06/06/2023 7:15 PM EST Received report from KIMMY Case. Meagan Obrien RN 06/06/231946 [address]08-2024 Physician Emergency department Note* James Neil [...] Response: Oriented Best Motor Response: Follows commands [place] Coma Scale Score: 15 PHYSICAL EXAM ED [...] In compliance with this authorization, please visit www.fda.gov/media/985597/download or www.fda.gov/media/079978/download to access the applicable information sheets. TROPONIN I - Normal TROPONIN I <0.012 Narrative: Patients with high levels of Biotin oral intake (ie >5 mg/day) may have falsely decreased Troponin levels. MAGNESIUM - Normal MAGNESIUM 2.0 COMPLETE URINALYSIS WITH REFLEX TO CULTURE Narrative: The following orders were created for panel order Urinalysis complete with reflex to Culture. Procedure Abnormality Status --------- ------ Complete Urinalysis[[id number]] Abnormal Final result Please view results for [...] Observation 06/07/2023 12:52:58 AM PATIENT REFERRED TO: [facility] [address] [address] Schedule an appointment as soon as possible [...] Emergency Medicine Provider James Neil MD 06/07/23 7325 [employer] Work Phone: 1(275) 202-473701-08-2024 Physician Emergency department Note* FLORIDA Elliott CNP [...] provided by: Patient and friend (girl friend) contact center specialist used: No Mayito Forbes is a 37 [...] In compliance with this authorization, please visit www.fda.gov/media/688363/download or www.fda.gov/media/008550/download to access the applicable information sheets. TROPONIN I - Normal TROPONIN I <0.012 Narrative: Patients with high levels of Biotin oral intake (ie >5 mg/day) may have falsely decreased Troponin levels. MAGNESIUM - Normal MAGNESIUM 2.0 COMPLETE URINALYSIS WITH REFLEX TO CULTURE Narrative: The following orders were created for panel order Urinalysis complete with reflex to Culture. Procedure Abnormality Status --------- ------ Complete Urinalysis[[id number]] Please view results for these tests on [...] Provider FLORIDA Elliott CNP 06/07/23 0059 [facility]12-30-2023 Emergency department Note* Parris Darling RN - 05/28/2023 8:[address] Knox discontinued the O2. Pt sats 93-94% RA. Dr. Knox states that she is comfortable with this. Will continue to monitor. Parris Darling RN 05/28/23 0851 [facility]12-30-2023 Emergency department Note* aPrris Darling RN - 05/28/2023 8:50 AM EST [...] Abnormal Glucose 242 (*) Narrative: Performed by: [facility], [address] [place] [id number] CLIA ID: [id number] ETHANOL - Normal ETHANOL IN SER/PLAS <0.010 [...] Not answering questions. Vital signs with hypothermia. Kclsx-ug-kczg glucose obtained and 243. Von hugger placed. [...] 8 mg narcan IN. documented in this [facility]12-30-2023 Emergency department Note* Parris Darling RN - 05/28/2023 6:50 AM EST Pt O2 is 89/[address] Knox, keep pt on 2L and re-eval at 0900 05/28 Parris Darling RN 05/28/23 0651 [facility] [id number] Emergency department Note* Parris Darling RN - 05/28/2023 6:32 AM EST Pt reevaluated. Pt able to answer questions. A&O x3. Pt still seemingly sleepy but is willing to participate in care Parris Darling RN 05/28/[address]30-2023 Emergency department Note* Parris Darling RN - 05/28/2023 3:35 AM EST This nurse removed warming blanket from pt at this time. Axillary temperature 97.4F. Parris Darling RN 05/28/[address]30-2023 Emergency department Note* Parris Darling RN - 05/28/2023 3:33 AM EST Assessments/screenings not done at this time due to pt inability to answer at this time. Pt is resting. RR even and unlabored. Parris Darling RN 05/28/23 0334 [facility] CenterEwvxlm00-78-1304 NoteNOTE: This result is for medical treatment only. Analysis performed using non-forensic procedures. [facility] [id number] Emergency department Triage note* Chuyita Denney RN - 05/27/2023 11:55 PM EST Pt presents to the ED via E[facility] as a possible overdose. Per EMS patient was found unresponsive in a bathroom with a needle next to him. PD administered 8 mg narcan IN. [facility] [id number] Physician Emergency department Note* Fabiola Knox DO [...] Glucose 242 (*) Narrative: Performed by: [facility], [address] [place] [id number] CLIA ID: [id number] ETHANOL - Normal ETHANOL IN SER/PLAS <0.010 [...] Not answering questions. Vital signs with hypothermia. Hrdtd-io-wtrf glucose obtained and 243. Von hugger placed. [...] Provider Fabiola Knox DO 05/28/23 0829 [facility]10-10-2023 Note* ED Procedure Note - Alex Santiago MD - 03/08/2023 8:11 PM EDTAssociated Order(s): Incision and Drainage Procedure Incision and Drainage Performed by: Alex Santiago MD Authorized by: Alex Santiago MD Consent: Consent obtained: Verbal Consent given by: Patient Risks, benefits, and alternatives were discussed: yes Risks discussed: Bleeding Alternatives discussed: No treatment [place] protocol: Procedure explained and questions answered to [...] Procedure completion: Tolerated Alex Santiago MD 03/08/232010 [facility]10-10-2023 Note* ED Procedure Note - Alex Santiago MD - 03/08/2023 8:11 PM EDTAssociated Order(s): Incision and Drainage Procedure Incision and Drainage Performed by: Alex Santiago MD Authorized by: Alex Santiago MD Consent: Consent obtained: Verbal Consent given by: Patient Risks, benefits, and alternatives were discussed: yes Risks discussed: Bleeding Alternatives discussed: No treatment [place] protocol: Procedure explained and questions answered to [...] Procedure completion: Tolerated Alex Santiago MD 03/08/232010 [facility] [id number] Miscellaneous Notes* ED Procedure Note - Alex Santiago MD - 03/08/2023 8:11 PM EDTAssociated Order(s): Incision and Drainage Procedure Incision and Drainage Performed by: Alex Santiago MD Authorized by: Alex Santiago MD Consent: Consent obtained: Verbal Consent given by: Patient Risks, benefits, and alternatives were discussed: yes Risks discussed: Bleeding Alternatives discussed: No treatment [place] protocol: Procedure explained and questions answered to [...] Alex Santiago MD 03/08/232010 documented in this [facility]10-10-2023 Hospital Discharge instructions* Discharge Instructions* Alex Santiago MD - 03/08/2023 8:08 PM EDT Expect some rectal bleeding over the next 12 hours; Can use otc stool softeners for next 3 days * Attachments The following attachments cannot be sent through Care Everywhere. * Hemorrhoidectomy Discharge Instructions (Equatorial [place]) documented in this [facility]10-10-2023 Emergency department Note* Alex Santiago MD [...] of this encounter. History provided by: Patient contact center specialist used: No Abdominal Pain Pain location: Rectum. [...] nursing note reviewed. Exam conducted with a mirror department supervisor present. Constitutional: General: He is not in [...] The wound was dressed. Patient was discharged. [place] rectal surgery referral was given Diagnoses as of 03/08/232008 Thrombosed external hemorrhoid Medications lidocaine (Xylocaine) 1 % injection 10 mL (10 mL Infiltration Given by Other 03/08/23 193) REVAL: CRITICAL CARE TIME None CONSULTS: None PROCEDURES: Unless otherwise noted below, none Procedures FINAL IMPRESSION 1. Thrombosed external hemorrhoid DISPOSITION Discharge 03/08/2023 08:07:44 PM PATIENT REFERRED TO: [facility] [address] [place] [phone] Call in 2 days DISCHARGE MEDICATIONS: [...] call light within reach. documented in this [facility]10-10-2023 Emergency department Triage note* Shakira Diehl RN - 03/08/2023 6:47 PM EDT Patient to room 3 with c/o a hemorrhoid that is inflamed since Tuesday. Patient has been using rectal suppositories and cream for pain relief. V/S obtained, call light within reach. [facility] CenterTrmnyj06-73-3952 Physician Emergency department Note* Alex Santiago MD [...] of this encounter. History provided by: Patient contact center specialist used: No Abdominal Pain Pain location: Rectum. [...] nursing note reviewed. Exam conducted with a mirror department supervisor present. Constitutional: General: He is not in [...] The wound was dressed. Patient was discharged. [place] rectal surgery referral was given Diagnoses as of 03/08/232008 Thrombosed external hemorrhoid Medications lidocaine (Xylocaine) 1 % injection 10 mL (10 mL Infiltration Given by Other 03/08/23 193) REVAL: CRITICAL CARE TIME None CONSULTS: None PROCEDURES: Unless otherwise noted below, none Procedures FINAL IMPRESSION 1. Thrombosed external hemorrhoid DISPOSITION Discharge 03/08/2023 08:07:44 PM PATIENT REFERRED TO: [facility] [address] [place] [phone] Call in 2 days DISCHARGE MEDICATIONS: [...] Emergency Medicine Provider Alex Santiago MD 03/08/232009 [facility] [id number] Note* ED Procedure Note - Alex Santiago MD - 02/23/2023 5:53 PM EDTAssociated Order(s): Foreign Body Removal - Embedded Procedure Foreign Body Removal - Embedded Performed by: Alex Santiago MD Authorized by: Alex Santiago MD Consent: Consent obtained: Verbal Consent given by: Patient Risks, benefits, and alternatives were discussed: yes Risks discussed: Bleeding and infection Alternatives discussed: No treatment and alternative treatment [place] protocol: Procedure explained and questions answered to [...] Procedure completion: Tolerated Alex Santiago MD 02/23/231752 [facility] CenterZsavjw99-72-4673 Miscellaneous Notes* ED Procedure Note - Alex Santiago MD - 02/23/2023 5:53 PM EDTAssociated Order(s): Foreign Body Removal - Embedded Procedure Foreign Body Removal - Embedded Performed by: Alex Santiago MD Authorized by: Alex Santiago MD Consent: Consent obtained: Verbal Consent given by: Patient Risks, benefits, and alternatives were discussed: yes Risks discussed: Bleeding and infection Alternatives discussed: No treatment and alternative treatment [place] protocol: Procedure explained and questions answered to [...] Santiago MD 02/23/23 1753 documented in this [facility]09-27-2023 Hospital Discharge instructions* Discharge Instructions* Alex Santiago MD - 02/23/2023 5:50 PM EDT Always a change for infection * Attachments The following attachments cannot be sent through Care Everywhere. * Cellulitis (Skin Infection) Discharge Instructions, Adult ([place]) documented in this [facility]09-27-2023 Emergency department Note* Alex Santiago MD [...] of this encounter. History provided by: Patient contact center specialist used: No Foreign Body Intake: Right ring [...] nursing note reviewed. Exam conducted with a mirror department supervisor present. Constitutional: General: He is not in [...] Discharge 02/23/2023 05:49:18 PM PATIENT REFERRED TO: [place] [address] Call in 3 days DISCHARGE MEDICATIONS: New [...] family is at bedside. documented in this [facility] [id number] Emergency department Triage note* Karina Arevalo LPN [...] x's 4. Pt family is at bedside. [facility] [id number] Physician Emergency department Note* Alex Santiago MD [...] of this encounter. History provided by: Patient contact center specialist used: No Foreign Body Intake: Right ring [...] nursing note reviewed. Exam conducted with a mirror department supervisor present. Constitutional: General: He is not in [...] Discharge 02/23/2023 05:49:18 PM PATIENT REFERRED TO: [place] [address] Call in 3 days DISCHARGE MEDICATIONS: New [...] Emergency Medicine Provider Alex Santiago MD 02/23/231751 [facility] CenterRbtmyv57-87-0466 Hospital course Narrative* González Hearn MD - 06/04/2022 12:35 PM EST Images from the original note were not included. [facility] [place] -- [facility] Mayito Forbes Admitted: 05/30/2022 Discharge Date: 06/04/22 PCP Handoff Recommended Outpatient Testing None Results Pending At Discharge None Clinical Summary Mayito Forbes is a 36 y.o. male patient of Soco Paige CNP with history of substance abuse, GERD, and hyperemesis who presented to [facility] with withdrawal symptoms. While in the hospital patient was treated for opiate overdose as well as amphetamine overdose symptomatically. Patientwas being followed by Dr. Juan from addiction medicine. Patient received Vivitrol before dischargeas well as naltrexone. Patient is advised to follow-up with PCP and go to [facility] on discharge. Acute toxic encephalopathy POA-improved U [...] Follow Up: Soco Paige CNP [address] [facility] [address] Schedule an appointment as soon as possible for a visit in 1 week(s) Soco Paige CNP [address] [facility] [address] Schedule an appointment as soon as [...] on 06/04/22, 12:35 PM documented in this [id number] Consult note* Marc Juan MD - 06/03/2022 12:53 PM EST PEER TO PEER ADDICTION MEDICINE CONSULT NOTE Patient Name: Mayito Forbes Admit Date: 1000702 MR #: [id number] : 1985 Physicians: Soco Paige CNP (Family); [...] wanting Vivitrol and reports has appointment with [facility] tomorrow at 2 pm. Will trial naltrexone 25 mg tiral dose tonight and if no problem will get Vivitrol tomorrow morningand then get to his [facility] appointment. Will need medical follow up also. [...] History: Meth Fentanyl Treatment history: most recently [facility] Longest period of sobriety: ? OD history: [...] focal consolidation or effusion. Workstation ID: [id number] Consult note* Marc Juan MD - 06/03/2022 12:53 PM EST PEER TO PEER ADDICTION MEDICINE CONSULT NOTE Patient Name: Mayito Forbes Admit Date: 1000702 MR #: [id number] : 1985 Physicians: Soco Paige CNP (Family); [...] medical follow up with Soco Paige or [address] [place] [address] Assessment Detail: The total time spent for [...] History: Meth Fentanyl Treatment history: most recently [facility] Longest period of sobriety: ? OD history: [...] IP CONSULT TO NEUROLOGY Neurology Inpatient Consult [facility] 06/02/2022 Patient: Mayito Forbes Date of : 1985 (36 y.o.) Referring Provider: Refer to consult order in electronic medical record PCP: Soco Paige CNP ASSESSMENT: 36 y.o. male presented to [facility] on 05/30/2022 with decreased responsiveness and [...] Mayito Forbes Admit Date: 1000702 MR #: [id number] : 1985 Physicians: Soco Paige CNP (Family); No ref. provider found (referring) Principal Problem: Respiratory failure with hypoxia (HCC) 06/01/22 - Seen today in follow up. Tells me that he was let go from [facility] when he asked togo to the ED for vomiting - which he has had episodes of. He had [facility] at [facility] for 3 or 4 days and not had THC. Was seen in [facility] 05/13 so was in the area. Today he says after [place] he drove back to [place] and was at various friends then his . Does not recall anything about New Years Estefany or New Years Day or coming here Tells me like yesterday that he last used in his neck a couple days ago. He did not have suboxone on leaving [facility] He vaguely remembers Natasha changing to gabapentin and does not know I he took any or not Had an episode of weakness and decreased responsiveness this am with mid sized pupils when in the bathroom. No foreign substances known and no visitors and no clothing. Tells me he feels that there is something else going on and [facility] could not find anything Denies pain or [...] Not more thana few days. Was in [facility] earlier this month and left because he felt too sick Seen [facility] 05/07 for vomiting and says was from withdrawal Seen [facility] 05/13 for bronchitis and got Emergency meds but no prescriptions filled. Last filled buprenorphine 8 mg BID x 7 days from [facility] via [facility] on 04/30. Tells me he might have taken some but [facility] [place] did not give him any more suboxone. Not sure if [facility] will let him back again and not [...] Adamant that no meth since back in [place] and not his DOC. Can not explain [...] status changes and can get back with [employer] for his MAT. QT is back to normal but may need to monitor Substance use history and other relevant social history please see initial consult note and social history section OARRS/NARx reviewed since admission .Discussed with the primary admitting team. Available medical records reviewed. Will follow Disposition: As per primary team. Possibly back with [facility] outpatient but feel inpatient longer term may [...] 2 FIO2 28 Specimen Source Radial, left [id number] 85.9 mm Hg ECG 12 Lead Collection Time: 06/01/22 8:07 AM Result Value Ref Range Ventricular Rate 99 BPM Atrial Rate 99 BPM P-R Interval 148 ms QRS Duration 70 ms Q-T Interval 356 ms QTC Calculation (Bezet) 456 ms P [place] 70 degrees R [place] 13 degrees T [place] 12 degrees POC Glucose Collection Time: 06/01/22 [...] 1 FIO2 24 Specimen Source Radial, right [id number] 65.2 mm Hg Assessment Detail: The total [...] Mayito Forbes Admit Date: 1000702 MR #: [id number] : 1985 Physicians: Soco Paige CNP (Family); [...] face to start. [place] is close to [facility]. Does not want [facility] [place] again Assessment Detail: The total time spent [...] Not more thana few days. Was in [facility] earlier this month and left because he felt too sick Seen [facility] 05/07 for vomiting and says was from withdrawal Seen [facility] 05/13 for bronchitis and got Emergency meds but no prescriptions filled. Last filled buprenorphine 8 mg BID x 7 days from [facility] via [facility] telehealth on 04/30. Tells me he might have taken some but [facility] [place] did not give him any more suboxone. Not sure if [facility] will let him back again and not [...] Adamant that no meth since back in [place] and not his DOC. Can not explain [...] Comments: Oriented to name and at a [facility]: Comments: Cooperative when urged Allergy [...] ms QTC Calculation (Bezet) 533 ms P [place] 82 degrees R [place] 45 degrees T [place] 61 degrees COVID-19/Influenza A,B Molecular Collection Time: [...] Colorless, Yellow Clarity, Urine Clear Clear Specific [place] 1.045 (H) 1.005 - 1.025 pH, Urine [...] typos or mis-recognized words. documented in this [id number] History of Present illness Narrative* González Hearn MD - 06/03/2022 11:35 AM EST [facility] [place] Assessment and Plan Mayito Forbes is a 36 y.o. male patient of Soco Paige CNP with history of substance abuse, GERD, and hyperemesis who presented to [facility] with withdrawal symptoms. Acute toxic encephalopathy [...] Cuellar MD - 06/02/2022 1:11 PM EST [facility] [place] [place] Assessment and Plan Mayito Forbes is a 36 y.o. male patient of Soco Paige CNP with history of substance abuse, GERD, and hyperemesis who presented to [facility] with withdrawal symptoms. Acute toxic encephalopathy [...] Hearn MD - 06/01/2022 12:13 PM EST [facility] [facility] Assessment and Plan Mayito Forbes is a 36 y.o. male patient of Soco Paige CNP with history of substance abuse, GERD, and hyperemesis who presented to [facility] with withdrawal symptoms. Acute toxic encephalopathy [...] to me today. All labs, imaging, and design and sales consultant notes were personally reviewed Patient had [...] Spent in Direct Patient Care: 15 Narrative: Assistance Representative responded to CITY AUDITOR overhead announcement. Patient being attended to by medical staff upon arrival. No family present at time of visit. Pastoral Care team will remain available to support patient and family PRN. Patient's Response to Pastoral Care: Timing of Visit Not Optimal. Visit Rescheduled Planning for Future Visits: PRN Ba Harvey, PhD Staff Assistance Representative Pastoral Care Department [facility] Office: [phone] 24-hour On-call 06/01/22 0957 Visit Background Visit With Patient Not Available;Healthcare Provider Visit By Staff Assistance Representative Visit Progression Attempt Visit Requested By Other (Please Specify) Visit Source Overhead Page;Vocera Call Visit Type Crisis Visit Visit Circumstances and Events CITY AUDITOR Visit Length (minutes) 15 Patient's Response to Pastoral Care Timing of Visit Not Optimal. Visit Rescheduled Visit Planning PRN Spiritual Assessment Unable to Assess during this visit Evangelical Assessment Unable to Assess during this visit Family assessment provided? Unable to asess during this visit documented in this [id number] Consult note* Hal Clarke MD - 06/02/2022 2:30 PM ESTAssociated Order(s): IP CONSULT TO NEUROLOGY Neurology Inpatient Consult [facility] 06/02/2022 Patient: Mayito Forbes Date of : 1985 (36 y.o.) Referring Provider: Refer to consult order in electronic medical record PCP: Soco Paige CNP ASSESSMENT: 36 y.o. male presented to [facility] on 05/30/2022 with decreased responsiveness and [...] clonus. Toes are downgoing on plantar stimulation. [id number] Procedure note* Hal Clarke MD - 06/02/2022 12:09 PM ESTAssociated Order(s): EEG (STANDARD) [facility] EEG Report Reason for EEG: Seizures Summary: [...] epileptiform discharges or ictal activity was seen. [facility] Work Phone: 1(464) 459-944301-04-2023 Procedure note* Hal Clarke MD - 06/02/2022 12:09 PM ESTAssociated Order(s): EEG (STANDARD) [facility] EEG Report Reason for EEG: Seizures Summary: [...] ictal activity was seen. documented in this [id number] Note* Plan of Care - Charity Pickett RN - 06/02/2022 11:31 AM EST Problem: Actual or potential alteration in health Goal: Absence of healthcare acquired conditions Outcome: Partially Met Goal: Knowledge of Interdisciplinary Plan of Care Outcome: Partially Met Goal: Knowledge of Enviroment Outcome: Partially Met [id number] Miscellaneous Notes* Plan of Care - Charity [...] Narcan in ER, Narcan ordered as needed. [facility] [place]: U tox was positive [...] determine Thank you, UGO Farmer, RN Clinical Director [employer] [phone] After business hours you may contact Laurita Sandy at [phone] (Weekdays until 10 PM and weekends 8 [...] Enviroment Outcome: Partially Met documented in this [id number] Note* Plan of Care - Radha Grady RN - 06/02/2022 12:31 AM EST Problem: Actual or potential alteration in health Goal: Absence of healthcare acquired conditions Outcome: Partially Met Goal: Knowledge of Interdisciplinary Plan of Care Outcome: Partially Met Goal: Knowledge of Enviroment Outcome: Partially Met [id number] Consult note* Marc Juan MD - 06/01/2022 3:33 PM EST Addiction Medicine Progress note Patient Name: Mayito Forbes Admit Date: 1000702 MR #: [id number] : 1985 Physicians: Soco Paige CNP (Family); No ref. provider found (referring) Principal Problem: Respiratory failure with hypoxia (HCC) 06/01/22 - Seen today in follow up. Tells me that he was let go from [facility] when he asked togo to the ED for vomiting - which he has had episodes of. He had been at [facility] for 3 or 4 days and not had THC. Was seen in [facility] 05/13 so was in the area. Today he says after [place] he drove back to [place] and was at various friends then his GF. Does not recall anything about New Years Estefany or New Years Day or coming here Tells me like yesterday that he last used in his neck a couple days ago. He did not have suboxone on leaving [facility] He vaguely remembers Nat[facility] changing to gabapentin and does not know I he took any or not Had an episode of weakness and decreased responsiveness this am with mid sized pupils when in the bathroom. No foreign substances known and no visitors and no clothing. Tells me he feels that there is something else going on and [facility] could not find anything Denies pain or [...] Not more thana few days. Was in [facility] earlier this month and left because he felt too sick Seen [facility] 05/07 for vomiting and says was from withdrawal Seen [facility] 05/13 for bronchitis and got Emergency meds but no prescriptions filled. Last filled [facility]up[facility] 8 mg B[facility] x [facility] [facility]. Tells me he might have taken some but [place] did not give him any more suboxone. [...] Adamant that no meth since back in [place] and not his DOC. Can not explain [...] status changes and can get back with [facility] for his MAT. QT is back to normal but may need to monitor Substance use history and other relevant social history please see initial consult note and social history section OARRS/NARx reviewed since admission .Discussed with the primary admitting team. Available medical records reviewed. Will follow Disposition: As per primary team. Possibly back with [facility] outpatient but feel inpatient longer term may [...] 2 FIO2 28 Specimen Source Radial, left GkO0gdomzocp 85.9 mm Hg ECG 12 Lead Collection Time: 06/01/22 8:07 AM Result Value Ref Range Ventricular Rate 99 BPM Atrial Rate 99 BPM P-R Interval 148 ms QRS Duration 70 ms Q-T Interval 356 ms QTC Calculation (Bezet) 456 ms P Madrid 70 degrees R Madrid 13 degrees T Madrid 12 degrees POC Glucose Collection Time: 06/01/22 [...] 1 FIO2 24 Specimen Source Radial, right BhS5hcpprzyy 65.2 mm Hg Assessment Detail: The total time spent for this visit was 70 to 75 minutes. Greater than 50% of the time was spent incounseling and coordination of care. Marc Juan MD This note was dictated using voice-recognition software for expedited communication. Please kindly excuse any typos or mis-recognized words. [id number] Note* CDI Query - González Hearn MD - 06/01/2022 1:21 PM EST Noted documentation of Acute encephalopathy POA. Clinical Indicators: H&P: Altered level of consciousness, resolved s/p Narcan and oxygen. H&P: Opiate overdose...Received multiple doses of Narcan in ER, Narcan ordered as needed. [facility] [place]: U tox was positive [...] determine Thank you, UGO Farmer, RN Clinical Director [employer] [phone] After business hours you may contact Laurita Sandy at [phone] (Weekdays until 10 PM and weekends 8 AM - 10 PM) [id number] Note* Plan of Care - Cass Reeder RN - 06/01/2022 7:55 AM EST Problem: Actual or potential alteration in health Goal: Absence of healthcare acquired conditions Outcome: Partially Met Goal: Knowledge of Interdisciplinary Plan of Care Outcome: Partially Met Goal: Knowledge of Enviroment Outcome: Partially Met [id number] Consult note* Marc Juan MD - 05/31/2022 4:32 PM ESTAssociated Order(s): IP CONSULT TO ADDICTION MEDICINE ADDICTION MEDICINE CONSULT NOTE Patient Name: Mayito Forbes Admit Date: 1000702 MR #: [id number] : 1985 Physicians: Soco Paige CNP (Family); [...] face to start. [place] is close to [place]. Does not want [place] again Assessment Detail: The total time spent [...] Not more thana few days. Was in [facility] earlier this month and left because he felt too sick Seen [facility] 05/07 for vomiting and says was from withdrawal Seen [facility] 05/13 for bronchitis and got Emergency meds but no prescriptions filled. Last filled buprenorphine 8 mg BID x 7 days from [facility] via [facility] telehealth on 04/30. Tells me he might have taken some but [place] did not give him any more suboxone. [...] Adamant that no meth since back in [place] and not his DOC. Can not explain [...] varied most recently Amrita CARDENAS and [facility] Longest period of sobriety: couple weeks or [...] Oriented to name and at a hospital [facility]: Comments: Cooperative when urged Allergy Information: [...] ms QTC Calculation (Bezet) 533 ms P Madrid 82 degrees R Madrid 45 degrees T Madrid 61 degrees COVID-19/Influenza A,B Molecular Collection Time: [...] Colorless, Yellow Clarity, Urine Clear Clear Specific [place] 1.045 (H) 1.005 - 1.025 pH, Urine [...] kindly excuse any typos or mis-recognized words. [id number] Note* Plan of Care - Cass Reeder RN - 05/31/2022 8:52 AM EST Problem: Actual or potential alteration in health Goal: Absence of healthcare acquired conditions Outcome: Partially Met Goal: Knowledge of Interdisciplinary Plan of Care Outcome: Partially Met Goal: Knowledge of Enviroment Outcome: Partially Met [id number] Emergency department Note* Savana Skelton RN - 05/31/2022 7:57 AM EST Report called to lizy oneal on A37 [id number] Emergency department Note* Savana Skelton RN - [...] ESTAssociated Order(s): ECG 12 Lead; Critical Care [facility] ED Attending Note: NAME: Mayito Forbes 36 y.o. CSN: [id number] PCP: Soco Paige CNP History: Chief Complaint: [...] All other components within normal limits Narrative: [facility] has implemented the eGFR [...] at the following links: For Healthcare Providers: https://www.[employer].gov/media/541962/download For Patients: https://www.[employer].gov/media/437285/download LIPASE - Normal CBC AND DIFFERENTIAL Narrative: The following orders were created for panel order CBC w/ Diff. Procedure Abnormality Status --------- ------ CBC Auto Differential[[id number]] Abnormal Final result Please view results for [...] the following conditions: respiratory failure, toxidrome and SCAFFOLD SETTER failure or compromise. Critical care was time [...] care. I do speak with Dr. Gupta, [facility] [place]call, who was agreeable to admitting the patient onto his intermediate unit, on his inpatient service. ED MIPS (if empty, not applicable): Clinical Impression: 1. Acute respiratory failure with hypoxia (HCC) 2. Opiate overdose, undetermined intent, initial encounter (HCC) 3. Nausea and vomiting, unspecified vomiting type [facility] Charlie Johnson M.D. Attending Physician [facility] Emergency Departments 05/31/2022 Portions of this note [...] mg narcan IV given by KIMMY Myrick * Kaley Yadav RN - 05/30/2022 6:56 PM EST PT ARRIVES VIA TRIAGE AFTER BEING DROPPED OFF BY HIS EX GIRLFRIEND. SHE REPORTS THE PT HAS BEEN WITHDRAWING, BUT SHE DOES NOT KNOW FROM WHAT. SHE REPORTS HE WON'T TELL HER ANYTHING. PT MOVED INTO CHAIR, WITH MUCH ASSISTANCE, BUT WON'T SPEAK TO STAFF. documented in this [id number] Emergency department Note* Savana Skelton RN - 05/31/2022 7:30 AM EST Introduced self as RN. Sips of water and swab given per pt request. Pt states slight nausea. Pt cooperative. denies any additional needs. [id number] Emergency department Note* Sharron Proctor RN - 05/31/2022 6:10 AM EST This RN went into pt room & found pt had removed IV, pt had vomited on the floor again. Pt was cleaned up, another emesis bag provided, call light within reach [id number] History and physical note* Bernabe Goldstein PA-C - 05/31/2022 1:29 AM EST [facility] [place] [facility] Patient Name: Mayito Forbes : 1985 MR #: [id number] Admit Date: 05/30/2022 Physicians: Soco Paige CNP (Family); No ref. provider found (Referring) Mayito Forbes is a 36 y.o. male patient of Soco Paige CNP with history of substance abuse, GERD, and hyperemesis who presented to [facility] with withdrawal symptoms. Acute encephalopathy POA [...] abuse, GERD, and hyperemesis who presented to [facility] with withdrawal symptoms. The patient is [...] been treated with antiemetics and IV fluids. [facility] [place] consulted for admission and further monitoring. [...] Gupta MD - 05/31/2022 2:10 AM EST [facility] [place] ADDENDUM I saw and examined the [...] able No antibiotics for now Antiemetics PRN [id number] History and physical note* Bernabe Goldstein PA-C - 05/31/2022 1:29 AM EST [facility] [place] [facility] Patient Name: Mayito Forbes : 1985 MR #: [id number] Admit Date: 05/30/2022 Physicians: Soco Paige CNP (Family); No ref. provider found (Referring) Mayito Forbes is a 36 y.o. male patient of Soco Paige CNP with history of substance abuse, GERD, and hyperemesis who presented to [facility] with withdrawal symptoms. Acute encephalopathy POA [...] abuse, GERD, and hyperemesis who presented to [facility] with withdrawal symptoms. The patient is [...] been treated with antiemetics and IV fluids. [facility] [place] consulted for admission and further monitoring. [...] Gupta MD - 05/31/2022 2:10 AM EST [facility] [place] ADDENDUM I saw and examined the [...] for now Antiemetics PRN documented in this [id number] Emergency department Note* Madina Beth RN - 05/30/2022 10:00 PM EST Patient has had multiple episodes of green/brown emesis. [id number] Emergency department Note* Rebeca Quiroga RN - 05/30/2022 8:20 PM EST Pt had another large episode of emesis and had some stool incontinence [facility]kg[facility]qxohu72-05-6530 Emergency department Note* Madina Beth RN - 05/30/2022 8:10 PM EST X-ray came to try and get the chest xray again and the patient is still actively vomiting and unable to obtain the chest xray at this time [facility]LydrGousmp81-54-0918 Emergency department Note* Ramez Bray RN - 05/30/2022 7:[address] JOHNSON MADE AWARE OF PATIENT STILL VOMITING [facility]xaaVtrefd32-12-2512 Emergency department Note* Madina Beth RN - 05/30/2022 7:[address] Johnson patient is Shaking to much right now to be able to go for the Head CT or complete the EKG at this time [place] [id number] Emergency department Triage note* Madina Beth RN [...] and immediately woke up and began vomiting. [id number] Emergency department Note* Madina Beth RN - 05/30/2022 7:27 PM EST Pt is still actively shaking and Vomiting. This RN has given Zofran and given the patient a couple of warm blankets. Patient is still mumbling his answers but responding when asked a questions [place] [id number] Physician Emergency department Note* Charlie Johnson MD - 05/30/2022 7:17 PM ESTAssociated Order(s): ECG 12 Lead; Critical Care [facility] ED Attending Note: NAME: Mayito Forbes 36 y.o. CSN: [id number] PCP: Soco Paige CNP History: Chief Complaint: [...] All other components within normal limits Narrative: [facility] has implemented the eGFR [...] at the following links: For Healthcare Providers: https://www.[employer].gov/media/670469/download For Patients: https://www.fda.gov/media/586667/download LIPASE - Normal CBC AND DIFFERENTIAL Narrative: The following orders were created for panel order CBC w/ Diff. Procedure Abnormality Status --------- ------ CBC Auto Differential[[id number]] Abnormal Final result Please view results for [...] the following conditions: respiratory failure, toxidrome and SCAFFOLD SETTER failure or compromise. Critical care was time [...] care. I do speak with Dr. Gupta, [facility] [place] on[place]call, who was agreeable to admitting the patient onto his intermediate unit, on his inpatient service. ED MIPS (if empty, not applicable): Clinical Impression: 1. Acute respiratory failure with hypoxia (HCC) 2. Opiate overdose, undetermined intent, initial encounter (HCC) 3. Nausea and vomiting, unspecified vomiting type Disposition: hospitalize to [facility]/ISD (Intermediate) Charlie Johnson M.D. Attending Physician [facility] Emergency Departments 05/31/2022 Portions of this note [...] words are mis-transcribed.) Charlie Johnson MD 05/31/2244 [facility] Work Phone: 1(145) 966-118701-01-2023 Emergency department Note* Madina Beth RN - 05/30/2022 7:10 PM EST 2 mg narcan IV given by KIMMY Myrick [id number] Emergency department Triage note* Kaley Yadav RN - 05/30/2022 6:56 PM EST PT ARRIVES VIA TRIAGE AFTER BEING DROPPED OFF BY HIS EX GIRLFRIEND. SHE REPORTS THE PT HAS BEEN WITHDRAWING, BUT SHE DOES NOT KNOW FROM WHAT. SHE REPORTS HE WON'T TELL HER ANYTHING. PT MOVED INTO CHAIR, WITH MUCH ASSISTANCE, BUT WON'T SPEAK TO STAFF. [id number] Emergency department Note* Viviane Pettit RN - 05/13/2022 10:32 PM EST Pt medicated per JUL. Pt sitting on stool at bedside, reports he is beginning to feel better after initial breathing treatments and is starting to expectorate with coughs. RT called for additional treatments as ordered. [facility]12-15-2022 Emergency department Note* Viviane Pettit RN - 05/13/2022 10:32 PM EST Pt medicated per JUL. Pt sitting on stool at bedside, reports he is beginning to feel better after initial breathing treatments and is starting to expectorate with coughs. RT called for additional treatments as ordered. * Jayant Trimble MD - 05/13/2022 9:14 PM EST Emergency Department Report [facility] EMERGENCY DEPARTMENT Service Date:.05/13/22 PCP: No primary care provider on file. Chief Complaint: Chief Complaint Patient presents with Shortness of Breath Pt presents to ED C/O SOB e6icfop. Pt states he is having hard time [...] Use Authorization (EUA) for the qualitative detection aeQDDB-QoE-9 nucleic acid. INFLUENZA A AND B, PCR [...] information. . . Jayant Trimble MD 05/13/22 1897 * Viviane Pettit RN - 05/13/2022 9:00 PM EST Pt reports ongoing cough, SOB and chest heaviness when feeling SOB. Pt denies ability to expectorate sputum. Lungs diminished with bilateral scattered ronchi and expiratory wheezes. Pt reports hx asthma, denies use of inhaler at home r/t does not currently have inhaler. [facility] History of Present illness Narrative* Shakira Neville RCP - 05/13/2022 9:50 PM EST Pt instructed on proper MDI and Aerochamber use and technique. Good teach back, pt has no questionsor concerns at this time. documented in this [facility] Physician Emergency department Note* Jayant Trimble MD - 05/13/2022 9:14 PM EST Emergency Department Report [facility] EMERGENCY DEPARTMENT Service Date:.05/13/22 PCP: No primary care provider on file. Chief Complaint: Chief Complaint Patient presents with Shortness of Breath Pt presents to ED C/O SOB [id number]. Pt states he is having hard time [...] Use Authorization (EUA) for the qualitative detection dxLKEQ-NaY-1 nucleic acid. INFLUENZA A AND B, PCR [...] information. . . Jayant Trimble MD 05/13/222153 [facility]12-15-2022 Emergency department Note* Viviane Pettit RN - 05/13/2022 9:00 PM EST Pt reports ongoing cough, SOB and chest heaviness when feeling SOB. Pt denies ability to expectorate sputum. Lungs diminished with bilateral scattered ronchi and expiratory wheezes. Pt reports hx asthma, denies use of inhaler at home r/t does not currently have inhaler. [facility]12-11-2022 NoteHNO ID: [id number] Author: Suellen Armstrong APRN.FORESTRY BIOLOGY SPECIALIST Service: General Internal Medicine Author Type: Nurse [...] vomiting and abdominal pain. [facility] Patient much improved, took shower this morning. Agreeable to taking oral potassium supplement. Also agreeable to returning to [place], clear for d/c today ROS: GENERAL: Negative [...] prn zofran Heroin abuse - [facility] - tramadol and ativan SIGNATURE: Suellen Armstrong APRN.CNP PATIENT NAME: Mayito Forbes DATE: May 09, 2022 TIME: 12:35 PM PAGER/CONTACT #: [phone] History of Past illness Narrative* Problem Noted Date Diagnosed Date Resolved Date Nausea and vomiting in adult 05/08/2022 05/09/2022 documented as of this encounter (statuses as of 08/30/2023) [facility]12-10-2022 NoteHNO ID: [id number] Author: Irma Ontiveros APRN.FORESTRY BIOLOGY SPECIALIST Service: Critical Care Author Type: Nurse Practitioner Type: Plan of Care Filed: 05/08/2022 12:49 AM Note Text: Hydraulic Hammer Operator Coverage Note Patient Name: Mayito Forbes This [...] kg (170 lb) SpO2 98% Irma Ontiveros APRN.FORESTRY BIOLOGY SPECIALIST May 08, 2022 12:[facility] AM[id number] Miscellaneous Notes* Op Note - Susan Ca MD - 10/07/2021 11:47 AM EDT Preoperative Diagnosis: Right carpal tunnel syndrome Postoperative Diagnosis: Right carpal tunnel syndrome Procedure: Right open carpal tunnel release Attending: Susan Ca MD Deputy Manager: Cleveland Campbell MD Anesthesia: MAC/Local EBL: 5cc [...] suture removal and recheck. Susan Ca MD [employer] - Plastic and Hand Surgery * Brief Op Note - Susan Ca MD - 10/07/2021 11:47 AM EDT Mayito Forbes ([id number]) PRE OPERATIVE DIAGNOSIS Carpal tunnel syndrome, left [G56.02] POST OPERATIVE DIAGNOSIS Post-Op Diagnosis Codes: * Carpal tunnel syndrome, left [G56.02] PROCEDURE PERFORMED Procedure(s) (LRB): DECOMPRESSION TRANSPOSITION MEDIAN NERVE (Left) PRIMARY CLOSURE Yes INTRAOPERATIVE FINDINGS No significant abnormalities SURGEON Surgeon(s) and Role: * Susan Ca MD - Primary ANESTHESIOLOGIST Anesthesiologist: Lakhwinder Connors MD [employer] BUSINESS DEVELOPMENT OFFICER: Deidra Dang APRN-[employer]BA BUSINESS DEVELOPMENT OFFICER SURGICAL STAFF Summer Law Clerk: Cynthia Trejo RN Scrub Person: Yoli Benitez [...] here soon . documented in this encounterU [facility] Note* Op Note - Susan Ca MD - 10/07/2021 11:47 AM EDT Preoperative Diagnosis: Right carpal tunnel syndrome Postoperative Diagnosis: Right carpal tunnel syndrome Procedure: Right open carpal tunnel release Attending: Susan Ca MD Deputy Manager: Cleveland Campbell MD Anesthesia: MAC/Local EBL: 5cc [...] suture removal and recheck. Susan Ca MD [employer] - Plastic and Hand Surgery [facility] Work Phone: 1(976) 319-455805-11-2022 Note* Brief Op Note - Susan Ca MD - 10/07/2021 11:47 AM EDT Mayito Forbes ([id number]) PRE OPERATIVE DIAGNOSIS Carpal tunnel syndrome, left [G56.02] POST OPERATIVE DIAGNOSIS Post-Op Diagnosis Codes: * Carpal tunnel syndrome, left [G56.02] PROCEDURE PERFORMED Procedure(s) (LRB): DECOMPRESSION TRANSPOSITION MEDIAN NERVE (Left) PRIMARY CLOSURE Yes INTRAOPERATIVE FINDINGS No significant abnormalities SURGEON Surgeon(s) and Role: * Susan Ca MD - Primary ANESTHESIOLOGIST Anesthesiologist: Lakhwinder Connors MD SBA BUSINESS DEVELOPMENT OFFICER: Deidra Dang APRN-SBA BUSINESS DEVELOPMENT OFFICER SURGICAL STAFF Summer Law Clerk: Cynthia Trejo RN Scrub Person: Yoli Benitez Fellow: Cleveland Campbell MD COMPLICATIONS None ESTIMATED BLOOD LOSS Minimal SPECIMENS No specimen sent * No specimens in log * Susan Ca MD October 07, 2021 1:15 PM [facility]05-11-2022 Note* Nursing Notes - Deborah Rivera RN - 10/07/2021 11:43 AM EDT Reviewed AVS, discharge instructions, ice pack, prescriptions, follow-up appointment, and when to call the office with patient and patient's girlfriend. All questions answered. Peripheral iv access removed per protocol. Prescriptions sent to patient's pharmacy. Patient states readiness for discharge. Deborah Rivera RN [facility]05-11-2022 Nurse Surgical operation note* Cynthia Trejo RN - 10/07/2021 10:38 AM EDT ISBAR report given to BRADLEY LINEBACKER CREWMEMBER. Pt taken to PACU on cart with [facility] SBA BUSINESS DEVELOPMENT OFFICER and CMcBroom. [facility]05-11-2022 Nurse Note* Cynthia Trejo RN - 10/07/2021 10:38 AM EDT ISBAR report given to BRADLEY LINEBACKER CREWMEMBER. Pt taken to PACU on cart with ill SBA BUSINESS DEVELOPMENT OFFICER and CMcBroom. [facility]* Nursing Notes - Basilia Gutierrez RN - 10/07/2021 9:19 AM EDT Patient called as has not yet arrived per pt is parking now. [facility]05-11-2022 Note* Nursing Notes - Basilia Gutierrez RN - 10/07/2021 8:55 AM EDT Patient has arrival time of 0830 . Kaleigh ONEAL called patient to see estimated time of arrival. Patient states he will be here soon . [facility]05-10-2022 Hospital Discharge instructions* Discharge Instructions* Cleveland Campbell MD - 10/06/2021 11:39 PM EDT [facility] Home Care after Hand or Upper Extremity [...] your doctor s office during office hours. [facility] [address] [place] [address], [address] [place] [address] Phone: [phone] If after hours, call or the hospital plant operator helper at and ask for the HandResident general medical practitioner or go to your local or [facility] Emergency room. documented [facility] History of Present illness Narrative* Marc Juan MD - 09/30/2021 9:08 PM EDT meds documented in this [id number] History of Present illness Narrative* Jamil Rock RN - 09/30/2021 11:28 AM EDT 0930- discharge discussed with Nikole Mclaughlin CNP and Dr. Juan, Dr. Juan to provide Suboxone script 1125- discharge discussed with pt, states understanding. Pt discharged with all belongings in stable condition * Kathie Fraser CNP - 09/29/2021 9:46 AM EDT [facility] [place] [place] Assessment and Plan Mayito Forbes [...] Cuellar MD - 09/28/2021 11:05 AM EDT [facility] [place] Assessment and Plan Mayito Forbes [...] Hale MD - 09/27/2021 9:13 AM EDT [facility]ESS [facility] Assessment and Plan Mayito Forbes [...] Radiology, Cardiology and Medications documented in this [id number] Hospital course Narrative* Nikole Hoyt CNP - 09/30/2021 10:52 AM EDT Images from the original note were not included. [facility] DISCHARGE SUMMARY Mayito Forbes Admitted: 09/26/2021 Discharge [...] Follow Up: Soco Paige CNP [address] [facility] [address] Follow up Condition at Discharge: Good [...] readily available for consultation if needed by FORESTRY BIOLOGY SPECIALIST. documented in this [id number] Consult note* Marc Juan MD - 09/29/2021 3:47 PM EDTAssociated Order(s): IP CONSULT TO ADDICTION MEDICINE ADDICTION MEDICINE CONSULT NOTE Patient Name: Mayito Forbes Admit Date: [id number] MR #: [id number] : 1985 Physicians: Soco Paige CNP (Family); [...] since he has failed[facility] and [facility] and that he needs to get his [...] ms QTC Calculation (Bezet) 435 ms P Madrid 75 degrees R Madrid 72 degrees T Madrid 42 degrees ECG 12 Lead Collection Time: 09/29/21 7:43 AM Result Value Ref Range Ventricular Rate 70 BPM Atrial Rate 70 BPM P-R Interval 154 ms QRS Duration 86 ms Q-T Interval 402 ms QTC Calculation (Bezet) 434 ms P Madrid 63 degrees R Madrid 18 degrees T Madrid 43 degrees Lab Results Component Value Date [...] urinalysis for infection. 5. Small right hydrocele. [facility]/s Workstation ID: [id number] CT Maxillofacial Without Contrast [...] kindly excuse any typos or mis-recognized words. [id number] Consult note* Marc Juan MD - 09/29/2021 3:47 PM EDTAssociated Order(s): IP CONSULT TO ADDICTION MEDICINE ADDICTION MEDICINE CONSULT NOTE Patient Name: Mayito Forbes Admit Date: 4290701 MR #: [id number] : 1985 Physicians: Soco Paige CNP (Family); [...] since he has failedhas [facility] and [facility] and that he needs to get his [...] ms QTC Calculation (Bezet) 435 ms P Madrid 75 degrees R Madrid 72 degrees T Madrid 42 degrees ECG 12 Lead Collection Time: 09/29/21 7:43 AM Result Value Ref Range Ventricular Rate 70 BPM Atrial Rate 70 BPM P-R Interval 154 ms QRS Duration 86 ms Q-T Interval 402 ms QTC Calculation (Bezet) 434 ms P Madrid 63 degrees R Madrid 18 degrees T Madrid 43 degrees Lab Results Component Value Date [...] urinalysis for infection. 5. Small right hydrocele. [facility] Workstation ID: [id number] CT Maxillofacial Without Contrast [...] Mayito Forbes Admit Date: 4290701 MR #: [id number] : 1985 Physicians: Soco Paige CNP (Family); No ref. provider found (referring) Ordering Provider: Principal Problem: Gastroenteritis Active Problems: Acute colitis Assessment and Plan: OPIATE ABUSE with precipitated withdrawal and colitis 1. Will induce back onto buprenorphine with the goal to stabilize and eventually taper. 2. Will see if he truly can get back with [facility] or if he needs to get to another place forcounseling. Will get the [facility] team involved. Assessment Detail: The total time spent for this visit was 35 to 40 minutes. Greater than 50% of the time was spent incoordination of care of [facility]. Reason for Consult: Medical management of opioid use disorder. Pain management with concurrent substance use disorder. Management of substance use disorder Linking to outpatient services. Counseling services. History of Present Illness: Mayito Forbes is a 36 y.o. y/o male presenting from home with c/o vomiting Chief Complaint Patient presents with Nausea Jaw Pain Spoke with the patient via [employer] with his nurse Jamil Rock. He is [...] to have been done today down in [place]. [facility] and receiving [...] He thinks he can go back to [facility] for counseling but not for [...] opiates failing buprenorphine Treatment history: most recently [facility] Longest period of sobriety: ? OD history: [...] urinalysis for infection. 5. Small right hydrocele. [facility] Workstation ID: [id number] CT Maxillofacial Without Contrast [...] seen. Workstation ID: [id number] documented in this [id number] Note* Plan of Care - Conrado Yancey MD - 09/28/2021 5:59 PM EDT Refractory nausea despite Zofran, Reglan, unable to take p.o. Phenergan. EKG September 27 reviewed, QTC of 440. Check repeat EKG to assess QTC. Start droperidol (only antiemetic medication better than placebo in the randomized trials), monitorEKG daily, ordered for tomorrow, will give IV potassium. [facility] Work Phone: 1(501) 595-980505-02-2022 Miscellaneous Notes* Plan of Care - Conrado [...] normal T Waves: T waves normal normal NV interval normal QRS interval normal QT interval Clinical impression: non-specific ECG documented in this [id number] Consult note* Marc Juan MD - 09/28/2021 5:46 PM EDT [facility] ADDICTION MEDICINE CONSULT NOTE Patient Name: Mayito Forbes Admit Date: 4290701 MR #: [id number] : 1985 Physicians: Soco Paige CNP (Family); [...] time was spent incoordination of care of [facility]. Reason for Consult: Medical management of opioid [...] to have been done today down in [place]. He had been [facility] since [facility] and receiving [...] withdrawal and does want to get to [facility] however he is not in aposition to [...] He thinks he can go back to [facility] for counseling but not for that MAT program. We will get the [place] team involved. He was hoping to reschedule his carpal tunnel and get back to working on a [employer] service and be withhis supportive girlfriend and [...] opiates failing buprenorphine Treatment history: most recently [facility] Longest period of sobriety: ? OD history: [...] urinalysis for infection. 5. Small right hydrocele. [facility] Workstation ID: [id number] CT Maxillofacial Without Contrast [...] bone displacement is seen. Workstation ID: [id number] Note* Quick Note - Steffany Soto RN - 09/27/2021 6:15 AM EDT Pt admitted to inpatient unit. Pulled from ER cot to bed with 3 assist. Pt weak and not interactive. Must repeat questions multiple times to get an answer. Reluctant to move or speak d/t weakness andnausea [id number] Emergency department Note* Mary Carrera RN - 09/27/2021 6:03 AM EDT ASSISTING PRIMARY RN, REPORT CALLED TO JAMES ONEAL RECEIVING NURSE FOR PT'S ADMISSION [id number] Emergency department Note* Mary Carrera RN - [...] CALL BACK WITH UPDATE WHEN NURSE AVAILABLE- [phone] * Nasrin Hooks RN - 09/26/2021 11:57 PM EDT GAVE PT URINAL AND INFORMED PT AGAIN THAT URINE SAMPLE IS NEEDED. * Vanessa Brewster CNP - 09/26/2021 11:36 PM EDT [facility] EMERGENCY DEPARTMENT MARYELLEN NOTE: NAME: Mayito Forbes CSN: [id number] 36 y.o. PCP: Soco Paige CNP History: [...] at the following links: For Healthcare Providers: https://www.fda.gov/media/777444/download For Patients: https://www.fda.gov/media/868302/download ALCOHOL, MEDICAL - Normal LIPASE - Normal CBC AND DIFFERENTIAL Narrative: The following orders were created for panel order CBC w/ Diff. Procedure Abnormality Status --------- ------ CBC Auto Differential[[id number]] Abnormal Final result Please view results for [...] urinalysis for infection. 5. Small right hydrocele. [facility]/s Workstation ID: [id number] CT Maxillofacial Without Contrast [...] Vanessa Brewster CNP ED Advanced Practice Provider [facility] EMERGENCY DEPARTMENT (Please note that portions of this note have been completed with a voice recognition software. Efforts were made to correct any errors, but occasionally words are mis-transcribed.) Vanessa Brewster CNP 09/27/21 7820 * Nasrin Hooks RN - 09/26/2021 11:00 PM EDT PT ARRIVED BY EMS. PT C/O N/V AND A STIFF JAW AND PAIN. PER EMS REPORT PT'S GIRLFRIEND FOUND HIM ATHOME WEAK. PT HX OF DRUG USE, DENIES DRUG USE TONIGHT. * Radha Rushing RN - 09/26/2021 10:59 PM EDT Bed: 09 Expected date: Expected time: Means of arrival: Comments: Courtney documented in this [id number] Emergency department Note* Nasrin Hooks RN - 09/27/2021 5:38 AM EDT THIS RN TRIED CALLING PT'S GIRLFRIEND SUSY BACK TO GIVE AN UPDATE, SUSY DID NOT ANSWER, VOICEMAILLEFT ASKING TO CALL BACK WHEN AWAKE FOR AN UPDATE. [id number] Emergency department Note* Nasrin Hooks RN - 09/27/2021 4:29 AM EDT THIS RN AND BENSON BERG CLEANED PT UP AFTER INCONTINENT BM, NOT ENOUGH STOOL FOR A SAMPLE. INFORMED PTTO LET STAFF KNOW WHEN NEED TO HAVE A BOWEL MOVEMENT FOR STOOL SAMPLE TO BE SENT. [id number] History and physical note* Carol Segovia CNP - 09/27/2021 4:17 AM EDT [facility] PHYSICAL Patient Name: Mayito Forbes : 1985 MR #: [id number] Admit Date: 09/26/2021 Physicians: Soco Paige CNP [...] 09/27/21 4:26 AM Medications 09/27/21 4:26 AM [id number] History and physical note* Carol Segovia CNP - 09/27/2021 4:17 AM EDT [facility]YSICAL Patient Name: Mayito Forbes : 1985 MR #: [id number] Admit Date: 09/26/2021 Physicians: Soco Paige CNP [...] Medications 09/27/21 4:26 AM documented in this [id number] Note* ED Attestation Note - Drake Sandoval [...] errors, but occasionally words are mis-transcribed.) [facility] Work Phone: 1(966) 266-430405-01-2022 Emergency department Note* Nasrin Hooks RN - 09/27/2021 3:26 AM EDT FOUND PT IN ROOM WITH EMESIS ON GROUND AND IV TAKEN OUT BY PT. VANESSA LIU NOTIFIED. EVS CALLED TO MOP FLOOR. [id number] Emergency department Note* Nasrin Hooks RN - 09/27/2021 1:04 AM EDT EVS AT BEDSIDE CLEANING PT'S FLOOR. [id number] Emergency department Note* Mary Carrera RN - 09/27/2021 12:58 AM EDT PT'S GIRLFRIEND SUSY WOULD LIKE CALL BACK WITH UPDATE WHEN NURSE AVAILABLE- [phone] [id number] Note* ED Procedure Note - Drake Sandoval MD - 09/27/2021 12:44 AM EDTAssociated Order(s): EKG 12-lead EKG 12-lead Date/Time: 09/27/2021 12:44 AM Performed by: Drake Sandoval MD Authorized by: Drake Sandoval MD Interpreted by ED attending physician Comparison: not compared with previous ECG Rhythm: sinus rhythm BPM: 94 Conduction: conduction normal ST Segments: ST segments normal T Waves: T waves normal normal NV interval normal QRS interval normal QT interval Clinical impression: non-specific ECG [id number] Emergency department Note* Nasrin Hooks RN - 09/26/2021 11:57 PM EDT GAVE PT URINAL AND INFORMED PT AGAIN THAT URINE SAMPLE IS NEEDED. [id number] Physician Emergency department Note* Vanessa Brewster CNP - 09/26/2021 11:36 PM EDT [facility] EMERGENCY DEPARTMENT MARYELLEN NOTE: NAME: Mayito Forbes CSN: [id number] 36 y.o. PCP: Soco Paige CNP History: [...] at the following links: For Healthcare Providers: https://www.fda.gov/media/291898/download For Patients: https://www.fda.gov/media/006321/download ALCOHOL, MEDICAL - Normal LIPASE - Normal CBC AND DIFFERENTIAL Narrative: The following orders were created for panel order CBC w/ Diff. Procedure Abnormality Status --------- ------ CBC Auto Differential[[id number]] Abnormal Final result Please view results for [...] urinalysis for infection. 5. Small right hydrocele. [facility] Workstation ID: [id number] CT Maxillofacial Without Contrast [...] Vanessa Brewster CNP ED Advanced Practice Provider [facility] EM[facility]GENCY DEPART[facility] (Please note that portions of this note have been completed with a voice recognition software. Efforts were made to correct any errors, but occasionally words are mis-transcribed.) Vanessa Brewster CNP 09/27/21 0348 [facility] Work Phone: 1(978) 598-921904-30-2022 Emergency department Triage note* Nasirn Hooks RN - 09/26/2021 11:00 PM EDT PT ARRIVED BY EMS. PT C/O N/V AND A STIFF JAW AND PAIN. PER EMS REPORT PT'S GIRLFRIEND FOUND HIM ATHOME WEAK. PT HX OF DRUG USE, DENIES DRUG USE TONIGHT. [id number] Emergency department Note* Radha Rushing RN - 09/26/2021 10:59 PM EDT Bed: 09 Expected date: Expected time: Means of arrival: Comments: Courtney [id number] History of Present illness Narrative* Jaleel Cm [...] base of RF. 5/5 strength with finger manager clinical pharmacy. 5/5 strength with resisted palmar abduction. Neurovascular: [...] proceed. Surgical consent signed. documented in this [facility]OS[facility]04-[facility]-2022 Instructions* Patient Instructions* Jaleel Cm PA-C - 09/01/2021 10:37 PM EDT [facility] Postoperative Care Appointment with Physician Deputy Manager, Jaleel Cm INCISION: Your sutures were removed [...] If have questions, please call the office [phone] documented in this encounterU [facility]* Op Note - Susan Ca MD - 08/19/2021 1:44 PM EDT Preoperative Diagnosis: Right carpal tunnel syndrome Postoperative Diagnosis: Right carpal tunnel syndrome Procedure: Right open carpal tunnel release Attending: Susan Ca MD Deputy Manager: Lexx Schaefer MD Anesthesia: MAC/Local EBL: 5cc [...] suture removal and recheck. Susan Ca MD [employer] - Plastic and Hand Surgery [facility] Work Phone: [phone] Note* Brief Op Note - Susan Ca MD - 08/19/2021 1:44 PM EDT Mayito Forbes ([id number]) PRE OPERATIVE DIAGNOSIS Bilateral carpal tunnel syndrome [G56.03] POST OPERATIVE DIAGNOSIS Post-Op Diagnosis Codes: * Bilateral carpal tunnel syndrome [G56.03] PROCEDURE PERFORMED Procedure(s) (LRB): DECOMPRESSION TRANSPOSITION MEDIAN NERVE (Right) PRIMARY CLOSURE Yes INTRAOPERATIVE FINDINGS No significant abnormalities SURGEON Surgeon(s) and Role: * Susan Ca MD - Primary ANESTHESIOLOGIST Anesthesiologist: Karo Jackson MD SBA BUSINESS DEVELOPMENT OFFICER: Mary Vaughan APRN-SBA BUSINESS DEVELOPMENT OFFICER; DAVID Houston SURGICAL STAFF Summer Law Clerk: Natasha Dempsey RN Physician Deputy Manager: Quique Guo PA-C Scrub Person: Steffany Bernal Resident Assisting: Lexx Schaefer MD COMPLICATIONS None ESTIMATED BLOOD LOSS Minimal SPECIMENS No specimen sent * No specimens in log * Susan Ca MD August 19, 2021 1:44 PM [facility]03-23-2022 Miscellaneous Notes* Op Note - Susan Ca MD - 08/19/2021 1:44 PM EDT Preoperative Diagnosis: Right carpal tunnel syndrome Postoperative Diagnosis: Right carpal tunnel syndrome Procedure: Right open carpal tunnel release Attending: Susan Ca MD Deputy Manager: Lexx Schaefer MD Anesthesia: MAC/Local EBL: 5cc [...] suture removal and recheck. Susan Ca MD [employer] - Plastic and Hand Surgery * Brief Op Note - Susan Ca MD - 08/19/2021 1:44 PM EDT Mayito Forbes ([id number]) PRE OPERATIVE DIAGNOSIS Bilateral carpal tunnel syndrome [G56.03] POST OPERATIVE DIAGNOSIS Post-Op Diagnosis Codes: * Bilateral carpal tunnel syndrome [G56.03] PROCEDURE PERFORMED Procedure(s) (LRB): DECOMPRESSION TRANSPOSITION MEDIAN NERVE (Right) PRIMARY CLOSURE Yes INTRAOPERATIVE FINDINGS No significant abnormalities SURGEON Surgeon(s) and Role: * Susan Ca MD - Primary ANESTHESIOLOGIST Anesthesiologist: Karo Jackson MD SBA BUSINESS DEVELOPMENT OFFICER: Mary Vaughan APRN-SBA BUSINESS DEVELOPMENT OFFICER; Rosa Elena Aceves APRN-ZULEMA SURGICAL STAFF Summer Law Clerk: Natasha Dempsey RN Physician Deputy Manager: Quique Guo PA-C Scrub Person: Steffany Bernal [...] per pt request. documented in this encounterOSU [facility] Nurse Surgical operation note* Natasha Dempsey RN - 08/19/2021 1:28 PM EDT Pt transported to PACU via cart. Report given to KIMMY Jennings [facility]03-23-2022 Nurse Note* Natasha Dempsey RN - 08/19/2021 1:28 PM EDT Pt transported to PACU via cart. Report given to KIMMY Jennings documented in this encounterOSU [facility] Note* Nursing Notes - Dick Shabazz RN - 08/19/2021 9:19 AM EDT 0800: upon pre-op assessment and interview, pt admits to drinking coffee with cream at 0600. Anesthesia notified. 0815: Dr. Olea at bedside to assess pt. Per anesthesia pts sx delayed until 1200 d/t NPO violation. 0830: pt escorted back to patient/family lobby to wait with SO, per pt request. [facility]03-22-2022 Hospital Discharge instructions* Discharge Instructions* Quique Guo PA-C - 08/18/2021 5:43 PM EDT [facility] Home Care after Hand or Upper Extremity [...] your doctor s office during office hours. [facility] [address], [address] [place] [address] Phone: [phone] ([phone]). If after hours, call or the hospital plant operator helper at and ask for the HandResident general medical practitioner or go to your local or [facility] Emergency room. documented in this [facility]02-[facility]22 Note* Addendum Note - Marc Juan MD - 07/22/2021 6:01 PM ESTAddended by: MARC JUAN on: 07/22/2021 06:01 PM Modules accepted: Orders [id number] Miscellaneous Notes* Addendum Note - Marc Juan MD - 07/22/2021 6:01 PM ESTAddended by: MARC JUAN on: 07/22/2021 06:01 PM Modules accepted: Orders documented in this encounterOhioHealthDischarge summary Author Chemo Romerogett [facility] Note Date/Time September 01, 2024 1:38 pm [facility] Medical Records Department [address] [place] [address] Emergency Department Summary 09/01/24 MR#: [id number] Acct: [id number] Name: ANDREIMAYITO ESCAMILLA Rep #:[id number] : 1985 39 From: Chemo Sherwood ggett DO PCP: Natasha Luciano PORCELAIN ENAMELING SUPERVISOR Status :REG ER Location: ED HPI History [...] oriented, grossly intact, sensation intact Psych: Cooperative [facility] Medical History Heroin abuse Opiate withdrawal Mandible [...] 89.4 H Lymph % (Auto) 5.6 L [place] % (Auto) 4.3 Eos % (Auto) 0.0 [...] Care Physician,No Primary [Non-Staff] - Print Language: [place]an What to do if you have Problems For any increased pain, shortness of breath, bleeding, nausea or vomiting, chestpain, or any unexpected problems, contact your Primary Care Provider. Call [facility] ([phone]) or report to the closest Emergency Room. Call 911 if necessary. 09/01/24 1338 <Electronically signed by Chemo Dunlap DO> Cosigner Signature (if applicable): CC: Natasha Luciano NP ~ Signed [facility] Work Phone: Evaluation note* Diagnosis Hyperemesis- Primary [...] postoperative pain [facility]* Diagnosis S/P carpal tunnel release- Primary Other postprocedural status Carpal tunnel syndrome, left Carpal tunnel syndrome Carpal tunnel syndrome, left Carpal tunnel syndrome documented in this encounter [facility] note* Diagnosis Gastroenteritis- Primary Other and unspecified noninfectious gastroenteritis and colitis Intractable vomiting with nausea Abdominal pain, unspecified abdominal location Polysubstance abuse (HCC) Other, mixed, or unspecified nondependent drug abuse, unspecified Leukocytosis, unspecified type Nausea and vomiting, unspecified vomiting type Acute colitis [facility] Diagnosis Opiate use- Primary Poisoning by opium (alkaloids), unspecified [facility] Diagnosis Opiate use- Primary Poisoning by opium (alkaloids), unspecified [facility]* Diagnosis Left carpal tunnel syndrome- Primary Carpal tunnel syndrome documented in this encounter [facility] note* Diagnosis Onset Date Resolution Status Opiate withdrawal acute Heroin abuse chronic IV drug user chronic [facility] Work Phone: Evaluation note* Diagnosis Onset Date Resolution Status Dystonia acute Fever acute Intractable nausea and vomiting acute Opiate withdrawal acute Substance abuse acute Syncope acute Heroin abuse chronic IV drug user chronic [facility] Work Phone: Evaluation note* Diagnosis Bronchitis, acute, with bronchospasm- Primary Acute bronchitis documented in this encounter [facility] note* Diagnosis Respiratory failure with hypoxia (HCC)- Primary Acute respiratory failure with hypoxia (HCC) Opiate overdose, undetermined intent, initial encounter ([facility]) Nausea and vomiting, unspecified vomiting type documented in this encounter [facility] note* Diagnosis Onset Date Resolution Status Dysuria acute [facility] Work Phone: Evaluation note* Diagnosis Foreign body in skin of finger of right hand- Primary documented in this encounter [facility] note* Diagnosis Thrombosed external hemorrhoid- Primary External thrombosed hemorrhoids documented in this encounter [facility] note* Diagnosis Opiate overdose, accidental or unintentional, initial encounter ([facility])- Primary documented in this encounter [facility] note* Diagnosis Nausea and vomiting- Primary Nausea with vomiting Nausea and vomiting, unspecified vomiting type Abdominal pain, unspecified abdominal location Leukocytosis, unspecified type Abdominal pain Abdominal pain, unspecified site Leukocytosis Leukocytosis, unspecified Intractable nausea and vomiting documented in this encounter [facility] note* Diagnosis Subungual hematoma of fingernail, initial encounter- Primary documented in this encounter [facility] note* Diagnosis Tinnitus, unspecified laterality- Primary Acute otalgia, bilateral Eustachian tube dysfunction, bilateral TMJ tenderness, right [facility] Diagnosis Cramping of hands- Primary Cramp of limb Dizziness Dizziness and giddiness Nausea and vomiting, unspecified vomiting type documented in this encounter [facility] note* Diagnosis Nausea and vomiting- Primary Nausea with vomiting Dehydration Nausea vomiting and diarrhea Cyclic vomiting syndrome Persistent vomiting Opioid use disorder Opioid use disorder documented in this encounter [facility] note* Diagnosis Fentanyl use disorder, mild, abuse (CMS/HCC) (HCC)- Primary Fentanyl use disorder, mild, abuse (CMS/HCC) (HCC) Nausea and vomiting, unspecified vomiting type documented in this encounter [facility] note* Diagnosis Nausea and vomiting, unspecified vomiting type- Primary Marijuana use documented in this encounter [facility] note* Diagnosis Opiate withdrawal (HCC)- Primary Drug withdrawal Opiate withdrawal (HCC) Drug withdrawal documented in this encounter [facility] noteNo assessment information availableWSelect [facility] Work Phone: Evaluation note* Diagnosis Opioid use disorder- Primary Opioid use disorder, severe, in early remission (HCC-CMS) documented in this encounter Count Includes [facility] Work Phone: Evaluation note* Diagnosis Opioid use disorder, severe (HCC-CMS)- Primary documented in this encounter [facility] [employer] [facility] Work Phone: Evaluation note* Diagnosis Opioid use disorder, severe, in early remission (CMS & HHS-HCC)- Primary Opioid use disorder documented in this encounter Count Includes [facility] Work Phone: Evaluation note* Diagnosis Opioid use disorder, severe (CMS & HHS-HCC)- Primary documented in this encounter Count Includes [facility] Work Phone: Evaluation note* Diagnosis Opioid use disorder, severe ([facility])- Primary documented in this encounter [facility] [employer] [facility] Work Phone: Evaluation note* Diagnosis Opioid use disorder, severe, in early remission ([facility]) documented in this encounter Count Includes [facility] Work Phone: Hospital Discharge instructions* Attachments The following attachments cannot be sent through Care Everywhere. * Gastroenteritis (Equatorial [place]) * Abdominal Pain ([place]) [facility] instructions* Attachments The following attachments cannot be sent through Care Everywhere. * Acute Bronchitis or Chest Cold Care Instructions ([facility]) ([place]) [facility]* Attachments The following attachments cannot be sent through Care Everywhere. * Nausea and Vomiting, Adult ED ([place]) documented in this [facility] Discharge instructions* Attachments The following attachments cannot be sent through Care Everywhere. * Drug Withdrawal Discharge Instructions ([place]) documented in this [facility] Discharge instructions Additional Instructions Follow-up with primary care physician. [facility]. Return back to the ED if symptoms change or worsen. Drink plenty of fluids. Antinausea medicine as needed. You received antinausea medication here in the emergency department. No medication for 8 hours.[facility] Work Phone: Hospital Discharge instructions Additional Instructions [...] care physician for further outpatient evaluation and management.[facility] Work Phone: Reason for referral (narrative)* Consultation (Urgent) - New Request Specialty Diagnoses / Procedures Referred By David snell Referred To Contact Family Medicine Diagnoses Bronchitis, acute, with bronchospasm Jayant Trimble MD [address] [place] [address] Referral ID Status Reason Start Date Expiration Date V isits Requested Visits Authorized [id number] New Request 05/13/2022 06/07/[address] [facility]No reason for referral information availableWSelect [facility] Work Phone: Reason for referral (narrative)* Addiction Medicine (Routine) - Closed Specialty Diagnoses / Procedures Referred By Contac t Referred To Contact Counselor Addiction / Mental Health Diagnoses Opioid use disorder, severe, in early remission (HCC-CMS) Allan Elizabeth MD [address] [place] [phone] Phone: tel: fax: [facility] [address] [address] Phone: tel: fax: Referral ID Status Reason Start Date Expiration Date V isits Requested Visits Authorized [id number] Closed Continuity of Care 10/31/2024 04/29/2025 1 1 Comments Reason for referral: referral from [facility] with OUD, recent relapse now early in sobriety, wants 1-1 counseling, maybe groups but not sure with work schedule [facility] Work Phone: Reason for visit Narrative* Auth/Cert Specialty Diagnoses / Procedures Referred By Contac t Referred To Contact Diagnoses Bilateral carpal tunnel syndrome Bilateral carpal tunnel syndrome [G56.03] Procedures NV REVISE MEDIAN N/CARPAL TUNNEL SURG DECOMPRESSION TRANSPOSITION MEDIAN NERVE Referral ID Status Reason Start Date Expiration Date Visits Re quested Visits Authorized [id number] 1 1 [facility] Auth/Cert Specialty Diagnoses / Procedures Referred By Contac t Referred To Contact Diagnoses Carpal tunnel syndrome, left Carpal tunnel syndrome, left [G56.02] Procedures NV REVISE MEDIAN N/CARPAL TUNNEL SURG DECOMPRESSION TRANSPOSITION MEDIAN NERVE Referral ID Status Reason Start Date Expiration Date Visits Re quested Visits Authorized [id number] 1 1 [facility] Assessments Diagnosis Achilles tendinitis of both [...] Documents on File Type Date Recorded Patient Chucking Machine Operator Expl anation Advance Directives and Livin g Will 11/17/2019 11:49 PM Documents on File Type Date Recorded Patient Chucking Machine Operator Expl anation Advance Directives and Livin g Will 12/03/2019 3:10 AM Latest Code Status on File Code Status Date Activated Date Inactivated Comments Full Code - Unverified 12/03/2019 8:01 AM 12/04/2019 10:48 PM Documents on File Type Date Recorded Patient Chucking Machine Operator Expl anation Advance Directives and Livin g Will 07/20/2021 4:29 AM Documents on File Type Date Recorded Patient Chucking Machine Operator Expl anation Advance Directives and Livin g Will 09/26/2021 11:26 PM Latest Code Status on File Code Status Date Activated Date Inactivated Comments Full Code 09/27/2021 4:15 AM 09/30/2021 1:39 PM Full Code - Unverified 12/03/2019 8:01 AM 12/04/2019 10:48 PM Advance Directive Response Recorded Date/ Time Living Will No April 21 6:18pm Power of Head Porter No April 21, 2022 6:18pm Advance Directive Response Recorded Date/ Time Living Will No April 21 8:27pm Power of Head Porter No April 21, 2022 8:27pm Latest Code [...] Will No April 21 9:27pm Power of Head Porter No April 21, 2022 9:27pm Latest Code [...] Do you have a Healthcare Power of Head Porter? No September 01, 2024 11:17am Advance Directive Response Recorded Date/ Time Living Will No September 03, 2024 9:06pm Do you have a Healthcare Power of Head Porter? No September 03, 2024 9:06pm Living Will No September 01, 2024 11:17am Do you have a Healthcare Power of Head Porter? No September 01, 2024 11:17am History of Present Illness * Natasha Romero, PT - 03/27/2018 5:30 PM EDT Formatting of this note may be different from the original. [facility] OUTPATIENT REHABILITATION DAILY TREATMENT NOTE Today's Date [...] 1500 OTHER Vitals Visit 09/08 Therapeutic Exercise (09407) Intervention stationary bike Parameters seat 7, R4, 5 min Intervention tandem walking Parameters 2 laps Intervention toe walking Parameters 2 laps Intervention walking lunge Parameters 2 laps fwd/lat Intervention walking drinking birds Parameters 2 laps Intervention BOSU step ups Parameters x 20 ea Intervention heel raises off step Parameters 2 x 10 Manual Therapy (86234) Intervention ISTM PT Treatment Times Manual Therapy [...] to treatment Natasha Romero, PT STATE LICENSE, [id number] in this encounter* Jose Candelario, ENTERTAINMENT MUSICIAN - 04/17/2018 4:45 PM EST Formatting of this note may be different from the original. [facility] OUTPATIENT REHABILITATION DAILY TREATMENT NOTE Today's Date [...] 1500 OTHER Vitals visit 01/08 Therapeutic Exercise (06262) Intervention stationary bike Parameters seat 5, R5, 5 min Intervention calf stretch Parameters 20x3 wedge Intervention soleus stretch wedge Parameters 20x3 Intervention drinking bird Parameters 2 laps Intervention lunge with rotation Parameters 15# MB laps Intervention squat with press Parameters 15# 2 laps Intervention BOSU step up with OKD Parameters x20 ea Intervention retro lunge TRX Parameters 2x10 cues Manual Therapy (89526) Intervention IASTM to B gastroc/achilles Parameters 12 [...] and strengthening. Trial withoutSTW. Jose Somers Andree, ENTERTAINMENT MUSICIAN STATE LICENSE, ENTERTAINMENT MUSICIAN.[id number] in this encounter* Jose Candelario, ENTERTAINMENT MUSICIAN - 04/26/2018 5:30 PM EST Formatting of this note may be different from the original. [facility] OUTPATIENT REHABILITATION DAILY TREATMENT NOTE Today's Date [...] 1500 OTHER Vitals visit 03/10 Therapeutic Exercise (12321) Intervention elliptical 5 min Parameters R5 Intervention calf stretch Parameters 20'x3 Intervention drinking bird Parameters 2 laps Intervention toe walking Parameters 2 laps Intervention lateral shuffle Parameters 2 laps Intervention ladder drills Parameters 5 min Intervention Medial heel tap Parameters 24 x10 ea Intervention side plank with reach Parameters 2x10 Therapeutic Exercise (35411) Intervention SLS x10, BOSU squat 3x10 Parameters with [place] reach BOSU Therapeutic Exercise (10585) Intervention standing slow leg kicks Parameters x10 [...] 2 more visits then possible transition to [facility] Jose Candelario PTA STATE LICENSE, ENTERTAINMENT MUSICIAN.[id number] in this encounter* Natasha Crowder, ENTERTAINMENT MUSICIAN - 05/11/2018 5:30 PM EST Formatting of this note may be different from the original. [facility] OUTPATIENT REHABILITATION DAILY TREATMENT NOTE Today's Date [...] Precautions/Contraindications FOTO Vitals Visit 05/18 Therapeutic Exercise (06879) Intervention Elliptical 5 min Parameters R5 Intervention [...] additional weeks Natasha Crowder, GLO STATE LICENSE, ENTERTAINMENT MUSICIAN.[id number] in this encounter* Natasha Romero, PT - 05/16/2018 5:30 PM EST Formatting of this note may be different from the original. [facility]IENT [facility]ATION DAILY TREATMENT NOTE Today's Date [...] 05/16/18 1500 OTHER Vitals Visit Therapeutic Exercise (88496) Intervention Elliptical 5 min Parameters R 5 [...] fwd/lat 2 x 30 ea Therapeutic Exercise (82674) Intervention ladder drills Parameters 4 min Therapeutic Exercise (31579) Intervention lateral shuffle Parameters 2 laps Therapeutic Exercise (00281) Intervention Alps Parameters 2 x 5 ea [...] monitor symptoms Natasha Romero, PT STATE LICENSE, [id number] in this encounter* Kenyon Briceno, PT - 06/01/2018 2:30 PM EST Formatting of this note may be different from the original. [facility] OUTPATIENT REHABILITATION DAILY TREATMENT NOTE Today's Date 06/01/2018 Patient Name: Mayito Forbes Date of : [...] 06/01/18 1443 OTHER Vitals Visit Therapeutic Exercise (26778) Intervention treadmill Parameters 5.5 mph up to [...] -- Intervention -- Parameters -- Therapeutic Exercise (02913) Intervention -- Parameters -- Therapeutic Exercise (74181) Intervention -- Parameters -- Therapeutic Exercise (65956) Intervention -- Parameters -- PT Treatment Times [...] HSR progressions Kenyon Briceno, PANTERA STATE LICENSE, [id number] in this encounter* Sebas Guerrero MD - 12/04/2019 10:04 AM EDT [facility] Medicine Inpatient Follow-up 12/04/2019 Sebas Guerrero MD [facility] Patient: Mayito Forbes Date of : [...] Guerrero MD - 12/03/2019 10:36 AM EDT [facility] Medicine Inpatient Follow-up 12/03/2019 Sebas Guerrero MD [facility] Patient: Mayito Forbes Date of : [...] be sent through Care Everywhere. * Gastroenteritis ([place]) documented in this encounter* Attachments The following attachments cannot be sent through Care Everywhere. * Nausea and Vomiting ([place]) documented in this encounter* Instructions* Radha Grider APRN-FORESTRY BIOLOGY SPECIALIST - 09/26/2018 Splint as directed. Rest, ice, elevate. Naproxen as prescribed, take with food; avoid additional ibuprofen, Aleve, or aspirin while taking. Please follow-up with your primary care provider on week for recheck, return for new or worsening symptoms. * Attachments The following attachments cannot be sent through Care Everywhere. * Finger Sprain ([place]) documented in this encounter Hospital Course * Sebas Guerrero MD - 12/04/2019 5:58 PM EDT HOSPITALIST DISCHARGE SUMMARY Patient: Mayito Forbes Account: [id number] Admitted: 12/03/2019 Discharge Date/Time: 12/04/2019 Clinical Summary [...] Your Medications These medications were sent to [id number] [place] [address] [facility] AT [address] [phone] pantoprazole 40 MG tablet Physician(s) Family: Physician No, Phone: None, Address: [facility] Follow Up: No follow-up provider specified. [...] section and content) DATE CREATED AUTHOR 03/20/2018 [facility] DATE CREATED AUTHOR AUTHOR'S ORGANIZ ATION 06/05/2018 [facility] DATE CREATED AUTHOR AUTHOR'S ORGANIZ ATION 11/05/2021 [facility] DATE CREATED AUTHOR AUTHOR'S ORGANIZ ATION 05/20/2022 [facility] DATE CREATED AUTHOR AUTHOR'S ORGANIZ ATION 06/06/2022 [facility] DATE CREATED AUTHOR AUTHOR'S ORGANIZ ATION 06/22/2022 [facility] DATE CREATED AUTHOR AUTHOR'S ORGANIZ ATION 08/30/2023 [facility] DATE CREATED AUTHOR AUTHOR'S ORGANIZ ATION 09/30/2023 [facility] DATE CREATED AUTHOR AUTHOR'S ORGANIZ ATION 08/14/2024 [facility] CREATED AUTHOR AUTHOR'S ORGANIZ ATION 09/09/2024 [facility] DATE CREATED AUTHOR AUTHOR'S ORGANIZ ATION 12/01/2024 Count Includes [facility] Reason for Visit (unrecogniz ed section and content) Reason Comments Physical Therapy Status Reason Specialty Diagnoses / Procedures Referred By Contact Referred To Contact Authorized Physical Therapy / Rehabilitation Diagnoses Achilles tendinitis of both lower extremities Gastrocnemius equinus, unspecified laterality Yan Jimenez, DPM [address] [place] [address] [address] Reason Comments Nausea Emesis Reason Comments Abdominal [...] Expiration Date Visits Re quested Visits Authorized [id number] 1 1 Reason Onset Date Comments ED Follow-up 10/05/2021 This Sun member spoke with Pt. He stats that he is still in treatment and doing well. Reason Comments Shortness of Breath Pt presents to ED C/ O SOB [id number]. Pt states he is having hard time catching his breath. Pt states it has gotten worse this week. Pt states 6/10 pain while breathing. Reason Comments Drug Overdose Specialty Diagnoses / Procedures Referred By Contac t Referred To Contact Diagnoses Respiratory failure with hypoxia (HCC) Referral ID Status Reason Start Date Expiration Date Visits Re quested Visits Authorized [id number] 1 1 Reason Comments Hemorrhoids Reason Comments Vomiting Pt presents to ED wi th c/o vomiting and diarrhea since 0100 today. Also c/o generalized abdominal pain Specialty Diagnoses / Procedures Referred By Contac t Referred To Contact Diagnoses Nausea and vomiting Intractable nausea and vomiting Abdominal pain, unspecified abdominal location Leukocytosis, unspecified type Nausea and vomiting, unspecified vomiting type Procedures R11.8SUL-83-ZQJytaja and vomiting R11.8HSC-56-LQWsjdujgvrzi nausea and vomiting Ebenezer Shook MD [address] [place] [address] [facility] [address] [place] [address] Referral ID Status Reason Start Date Expiration Date Visits Re quested Visits Authorized [id number] 1 1 Reason Comments Hand Pain Reason Comments Ear Problem Ear is painful and r inging, has been using otc ear drops Reason Comments cramping hands Dizziness Reason Comments Vomiting N/V/D x2 days Specialty Diagnoses / Procedures Referred By Contduke t Referred To Contact Diagnoses Dehydration Nausea and vomiting Cyclic vomiting syndrome Nausea vomiting and diarrhea Procedures E86.8BPF-47-EAWgukjtbwdyx R11.9NYX-83-OAGggytf and vomiting Ebenezer Shook MD [address] [place] [address] [facility] [address] [place] [address] Referral ID Status Reason Start Date Expiration Date Visits Re quested Visits Authorized [id number] 1 1 Reason Onset Date Comments Appointment [...] Procedures 0 Ole Conway MD [address] [facility] [address] [place] [address] Phone: tel: fax: [facility] ED [address] [place] [address] Phone: tel: Referral ID Status Reason Start Date Expiration Date Visits Re quested Visits Authorized [id number] 1 1 Reason Comments MAT Intake Reason [...] ED Notes (unrecognized secti on and content) [facility] ED MARYELLEN Note: NAME: Mayito Forbes 34 y.o. CSN: [id number] PCP: Physician No History: Chief Complaint: Nausea [...] file Gets together: Not on file Attends uatsdin service: Not on file Active member of [...] Procedure Abnormality Status --------- ------ CBC Auto Differential[[id number]] Abnormal Final result Please view results for [...] ED Course as of Nov 17 224 [facility] [[email or web address]] Nov 17, 2019 2311 SARS-CoV-2: Not Detected [...] Natasha Luciano NP-C ED Advanced Practice Provider [facility] Emergency Department (Please note that portions of [...] with signage outside this patient's room. This acute care assistant performs hand hygiene and enters the patient [...] received from Emily ONEAL. Sleeping. Bolus infusing [facility] ED Attending Note: NAME: Mayito Forbes 34 y.o. CSN: [id number] PCP: Physician No History: Chief Complaint: Abdominal [...] file Gets together: Not on file Attends uatsdin service: Not on file Active member of [...] Abnormal; Notable for the following components: Specific [place] 1.029 (*) pH, Urine 9.0 (*) Protein, [...] Procedure Abnormality Status --------- ------ CBC Auto Differential[[id number]] Abnormal Final result Please view results for these tests on the individual orders. CT Abdomen Pelvis With IV Contrast Only Final Result 1. No acute abdominal or pelvic inflammatory process. 2. Trace pelvic free fluid of uncertain significance. No fluid collection. 3. Normal appendix and no adenopathy. [employer] Workstation ID: [id number] Procedures: Procedures ED Course [...] Unit (CDU/OBS) Charlie Johnson M.D. Attending Physician [facility] Emergency Departments 12/03/2019 Portions of this note [...] H&P Notes (unrecognized sect ion and content) [facility] Inpatient H&P 12/03/2019 Taz Cuellar MD [facility] Patient: Mayito Forbes Date of : [...] Care Teams (unrecognized sec tion and content) Meteorology Faculty Member Relationship Specialty Start Date End Date No, Physician [facility] PCP - General 11/17/19 Marc Juan MD [address] [place] [phone] Consulting Physician Addiction Medicine 07/22/21 Meteorology Faculty Member Relationship Specialty Start Date End Date Soco Paige CNP [address] [place] [phone] PCP - General Nurse Practitioner 07/22/21 Marc Juan MD [address] [place] [phone] Consulting Physician Addiction Medicine 07/22/21 Meteorology Faculty Member Relationship Specialty Start Date End Date Minerva Grier, FORESTRY BIOLOGY SPECIALIST [address], [place] [address] PCP - General Nurse Practitioner - Psych/Mental Health 09/26/18 Meteorology Faculty Member Relationship Specialty Start Date End Date Minerva Grier, FORESTRY BIOLOGY SPECIALIST [address] [place] [address] PCP - General Nurse Practitioner - Psych/Mental Health 09/26/18 Meteorology Faculty Member Relationship Specialty Start Date End Date Soco Paige FORESTRY BIOLOGY SPECIALIST [address] [place] [phone] PCP - General Nurse Practitioner 07/22/21 Marc Juan MD [address] [place] [phone] Consulting Physician Addiction Medicine 07/22/21 Meteorology Faculty Member Relationship Specialty Start Date End Date Soco Paige FORESTRY BIOLOGY SPECIALIST [address] [place] [phone] PCP - General Nurse Practitioner 07/22/21 Marc Juan MD [address] [facility] [address] [place] [phone] Consulting Physician Addiction Medicine 07/22/21 Meteorology Faculty Member Relationship Specialty Start Date End Date Soco Paige CNP [address] [place] [phone] PCP - General Nurse Practitioner 07/22/21 Marc Juan MD [address] [facility] [address] [place] [phone] Consulting Physician Addiction Medicine 07/22/21 Meteorology Faculty Member Relationship Specialty Start Date End Date Soco Paige CNP [address] [place] [phone] PCP - General Nurse Practitioner 07/22/21 Marc Juan MD [address] [facility] [address] [place] [phone] Consulting Physician Addiction Medicine 07/22/21 Meteorology Faculty Member Relationship Specialty Start Date End Date Minerva Grier, FORESTRY BIOLOGY SPECIALIST [address] [place] [phone] PCP - General Nurse Practitioner - Psych/Mental Health 09/26/18 Meteorology Faculty Member Relationship Specialty Start Date End Date Soco Paige CNP [address] [place] [phone] PCP - General Nurse Practitioner 07/22/21 Marc Juan MD [address] [facility] [address] [place] [phone] Consulting Physician Addiction Medicine 07/22/21 Meteorology Faculty Member Relationship Specialty Start Date End Date Paige SocoNOE [address] [place] [phone] PCP - General Nurse Practitioner 07/22/21 Marc Juan MD [facility] [address] [place] [phone] Consulting Physician Addiction Medicine 07/22/21 Team Status: [...] PA Attending Provider, Referring Provi helene Active Meteorology Faculty Member Relationship Specialty Start Date End Date [facility] [address] [place] [address] PCP - General 05/28/23 Meteorology Faculty Member Relationship Specialty Start Date End Date [facility] [address] [place] [address] PCP - General 05/28/23 Meteorology Faculty Member Relationship Specialty Start Date End Date [facility] [address] [place] [address] PCP - General 05/28/23 Meteorology Faculty Member Relationship Specialty Start Date End Date [facility] [address] [place] [address] PCP - General 05/28/23 Meteorology Faculty Member Relationship Specialty Start Date [place] [address] PCP - General Family Medicine 11/01/23 Meteorology Faculty Member Relationship Specialty Start Date End [place] [address] PCP - General Family Medicine 11/01/23 Meteorology Faculty Member Relationship Specialty Start Date End [place] [address] PCP - General Family Medicine 11/01/23 Meteorology Faculty Member Relationship Specialty Start Date End Date John Andrews MD [address] [place] [address], [place] [address] PCP - General Family Medicine 11/01/23 Team [...] ($$New Bag$$ - Provider: Mary F Alexus, MARINE SCIENTIST-SBA BUSINESS DEVELOPMENT OFFICER)1322 (Anesthesia Volume Adjustment - Provider: Rosa Elena Aceves APRN-SBA BUSINESS DEVELOPMENT OFFICER) PRN Medication Order 08/17/2021 08/18/2021 08/19/2021 bacitracin [...] Jamil Rock RN)1347 (Rate/Dose Change - Provider: Jamil Rock RN)1352 (Rate/Dose Change - Provider: Jamil [...] at 0420 0023 (New Bag - Provider: Nancy Rogers RN)0853 (Rate/Dose Change - Provider: Tea [...] Jamil Rock RN)1400 (Restarted - Provider: Jamil Rokc RN)1401 (Paused - Provider: Jamil Rock RN)1431 [...] WARMING AND ADMINISTRATION WITH CHARGE NURSE FOR [facility] NURSE TO GIVE Refer to [...] PLACED TUBE OR TUBE less than 14 [place]. To administer dissolved tablet(s) mix with 4 [...] Christopher RN) 1042 (Given - Provider: Charity Ashley, KIMMY) venlafaxine (EFFEXOR-XR) 24 hr capsule 150 [...] Provider: Charity Pickett RN)1205 (Stopped - Provider: Charity Pickett RN)1205 (New Bag - Provider: Charity [...] tolerated.
Group 4: Insert peripheral IV (COMPLETED) SYLVIE, Once, On Tue05/30/22 at 1909, For [...] Taty Feliz RN)1319 (Given - Provider: Taty Fleiz RN)2058 (Given - Provider: Ashley Acosta, KIMMY) [...] sedation for opioid reversal - MUST notify general medical practitioner provider immediately after first dose, may give [...] sedation for opioid reversal - MUST notify general medical practitioner provider immediately after first dose, may give [...] or prosecute any alcohol or drug abuse patient.[facility] FOR RECORDS PERTAINING TO PATIENTS WHO ARE [...] BE BASED ON THE PRIMARY CLINICAL RECORDS. [employer] [facility]. provides no warranty or guarantee of the accuracy or completeness of information in this document.
[2024-12-11] MEDS: buPROPion (XL) 150 MG TABLET.XL PO ×2 (02:48→20:32)
[2024-12-11 04:00] VITALS: BP 132/74; PULSE 69; RESP 16; TEMP 37.8; O2SAT 97
[2024-12-11 06:31] LABS: Hematocrit 43.3 % (40-54); Hemoglobin 15.6 g/dL (13.0-16.5); Immature Granulocytes Count 0.050 X10^3/uL (0.0-0.0); Mean Corp Hgb Conc 36.0 g/dL (32-36); Mean Corpuscular Volume 83.4 fL (80-94); Mean Platelet Vol. 8.7 fl (6.2-12.0); NRBC Flagged by Analyzer 0 % (0-5); Platelet Count 348 K/mm3 (150-450); RBC Distribution Width CV 12.1 % (11.6-14.6); RBC Distribution Width SD 36.8 fl (35.1-43.9); Red Blood Count 5.19 M/mm3 (4.6-6.2); White Blood Count 13.6 K/mm3 (4.4-11.0)
[2024-12-11 06:57] LABS: AST(SGOT) 21 U/L (<=37); Alanine Aminotransfer ALT/SGPT 29 U/L (<=46); Albumin, Serum 4.2 g/dL (3.5-5.0); Alkaline Phosphatase 119 U/L (40-129); Anion Gap 15 (5-15); BUN 7 mg/dL (4-19); BUN/Creat Ratio 8.0 RATIO (10-20); Calcium,Total 9.3 mg/dL (7.6-11.0); Carbon Dioxide 21.1 mmol/L (21.0-32.0); Chloride 104 mmol/L (98-108); Estimated Creatinine Clearance 111.57 ml/min (50-250); Globulin 3.3 g/dL (2.2-4.2); Glucose 115 mg/dL (70-99); Potassium 3.1 mmol/L (3.3-5.1)
--- NOTE | 2024-12-11 07:02 | PCM.PN.HOSP ---
Reason for Visit Chief Complaint: Opiate withdrawal Subjective Subjective Patient is a 39-year-old gentleman with past medical history sent in for opioid dependence, depression who presented with desire to undergo detoxification. Objective Data Objective Data Vital Signs: Vital Signs Temp Pulse Resp BP Pulse Ox O2 Del Method 100.0 F H 69 16 132/74 H 97 Room Air 12/11/24 04:00 12/11/24 04:00 12/11/24 04:00 12/11/24 04:00 12/11/24 04:00 12/11/24 04:00 Oxygen Delivery Method Room Air Weight: 80.3 kg Body Mass Index (BMI) 26.2 Lab / Micro Data 12/11/24 06:03 12/11/24 06:03 Labs: Laboratory Results - last 24 hr 12/11/24 06:03: WBC 13.6 H, RBC 5.19, Hgb 15.6, Hct 43.3, MCV 83.4, MCH 30.1, MCHC 36.0, RDW Std Deviation 36.8, RDW Coeff of Corinne 12.1, Plt Count 348, MPV 8.7, Immature Gran % (Auto) 0.400, Neut % (Auto) 77.2 H, Lymph % (Auto) 13.8 L, Childress % (Auto) 8.3, Eos % (Auto) 0.0, Baso % (Auto) 0.3, Absolute Neuts (auto) 10.5 H, Absolute Lymphs (auto) 1.88, Nucleated RBC % 0, Sodium 140, Potassium 3.1 L, Chloride 104, Carbon Dioxide 21.1, Anion Gap 15, BUN 7, Creatinine 0.86, Estim Creat Clear Calc 111.57, Est GFR (MDRD) Non-Af 113, BUN/Creatinine Ratio 8.0 L, Glucose 115 H, Calcium 9.3, Total Bilirubin 0.47, AST 21, ALT 29, Alkaline Phosphatase 119, Total Protein 7.5, Albumin 4.2, Globulin 3.3, Albumin/Globulin Ratio 1.3 Physical Exam Narrative GENERAL: cooperative HEENT: Atraumatic; normocephalic EYES; Anicteric, Normal Conjunctiva NECK; supple, normal thyroid, RESPIRATORY: Diminished to auscultation CARDIOVASCULAR: Regular S1 S2, GI: soft, normoactive bowel sounds, : No Renal angle tenderness; EXTREMITIES: No edema, no clubbing, MUSCULOSKELETAL: no muscle wasting NEURO: Awake; no lateralizing signs. SKIN: No Rash PSYCH; Flat affect Assessment & Plan Assessment/Plan (1) Opiate withdrawal: PLAN: Plan Patient admitted with acute opioid withdrawal 1. 1. Acute opioid withdrawal - Patient has been admitted to regular nursing floor, managed buprenorphine taper along with other adjunctive medications for medical stabilization 2. Depression with anxiety ? Patient is on Effexor continued 3. Tobacco dependence ? Counseled on cessation, offered nicotine patch for tobacco cravings 4. Hypokalemia ? Corrected per protocol 5. DVT prophylaxis ? Low risk encourage early ambulation Charges/Coding Visit Charges Inpatient E&M: 48150 Subs Hosp L2
[2024-12-11] MEDS: Potassium Chloride Oral Tablet 20 MEQ PO ×2 (08:45→17:21)
[2024-12-11 09:00] VITALS: BP 121/81; PULSE 90; RESP 18; TEMP 36.6; O2SAT 97
--- NOTE | 2024-12-11 11:49 | ADDICTION ---
Met with Pt to complete RAMP asessments. Pt reports he know he should do residential tx, however is undecided if he really wants to go. TW reported that she would place a couple of referrals and he could decide with them when they call to screen him.
--- NOTE | 2024-12-11 14:47 | CASEMGMT ---
Social Work- SW met with pt to complete SDOH assessment. SW provided active, empathetic listening as pt discussed his drug use and recovery attempts, profession, and various life events. Pt expressed good insight and motivation to work on sobriety. Pt was observed to take accountability and expressed interest in healthy coping skills that he could employ while present for detox. Pt reports no needs at this time. SW remains availableto follow. YESSICA Daniels
[2024-12-11] MEDS: hydrOXYzine PAM 25 MG Capsule 50 MG PO ×2 (14:48→20:31)
[2024-12-11 17:20] VITALS: BP 139/93; PULSE 119; RESP 16; TEMP 36.8; O2SAT 99
[2024-12-11 20:19] VITALS: BP 127/84; PULSE 98; RESP 16; TEMP 37.3; O2SAT 98
[2024-12-12] MEDS: hydrOXYzine PAM 25 MG Capsule 50 MG PO (05:39)
[2024-12-12 05:42] VITALS: BP 105/63; PULSE 72; RESP 16; TEMP 36.7; O2SAT 96
--- NOTE | 2024-12-12 07:59 | PCM.PN.HOSP ---
Reason for Visit Chief Complaint: Opiate withdrawal Subjective Subjective Same had an uneventful evening. Tolerating buprenorphine taper well Objective Data Objective Data Vital Signs: Vital Signs Temp Pulse Resp BP Pulse Ox O2 Del Method 98.1 F 72 16 105/63 96 Room Air 12/12/24 05:42 12/12/24 05:42 12/12/24 05:42 12/12/24 05:42 12/12/24 05:42 12/12/24 05:42 Oxygen Delivery Method Room Air Weight: 80.3 kg Body Mass Index (BMI) 26.2 Intake & Output: Intake and Output for Last 24 Hours 12/10/24 12/11/24 12/12/24 23:59 23:59 23:59 Intake Total 400 / 400 650 / 650 Balance 400 / 400 650 / 650 Lab / Micro Data 12/11/24 06:03 12/11/24 06:03 Physical Exam Narrative GENERAL: cooperative HEENT: Atraumatic; normocephalic EYES; Anicteric, Normal Conjunctiva NECK; supple, normal thyroid, RESPIRATORY: Diminished to auscultation CARDIOVASCULAR: Regular S1 S2, GI: soft, normoactive bowel sounds, : No Renal angle tenderness; EXTREMITIES: No edema, no clubbing, MUSCULOSKELETAL: no muscle wasting NEURO: Awake; no lateralizing signs. SKIN: No Rash PSYCH; Flat affect Assessment & Plan Assessment/Plan (1) Opiate withdrawal: PLAN: Plan Patient admitted with acute opioid withdrawal 1. 1. Acute opioid withdrawal - Patient has been admitted to regular nursing floor, managed buprenorphine taper along with other adjunctive medications for medical stabilization 12/12/2024; patient tolerating buprenorphine taper 2. Depression with anxiety ? Patient is on Effexor continued 3. Tobacco dependence ? Counseled on cessation, offered nicotine patch for tobacco cravings 4. Hypokalemia ? Corrected per protocol 5. DVT prophylaxis ? Low risk encourage early ambulation Charges/Coding Visit Charges Inpatient E&M: 07993 Subs Hosp L1
[2024-12-12 09:43] VITALS: BP 121/77; PULSE 108; RESP 18; TEMP 36.3; O2SAT 99
[2024-12-12] MEDS: Potassium Chloride Oral Tablet 20 MEQ PO (09:50)
--- NOTE | 2024-12-12 11:08 | PCM.DC.SUM ---
Providers Date of Admission: 12/10/24 Date of Discharge: 12/12/24 Primary Care Physician: Natasha Luciano Reason For Visit: OPIATE WITHDRAWL Diagnosis Discharge Diagnosis (1) Opiate withdrawal: Status: Acute Code(s): F11.23 - Opioid dependence with withdrawal Plan Patient admitted with acute opioid withdrawal 1. 1. Acute opioid withdrawal - Patient has been admitted to regular nursing floor, managed buprenorphine taper along with other adjunctive medications for medical stabilization 12/12/2024; patient tolerating buprenorphine taper ? Patient was evaluated by addiction medicine service and facilitated in placing the patient in inpatient treatment facility 2. Depression with anxiety ? Patient is on Effexor continued 3. Tobacco dependence ? Counseled on cessation, offered nicotine patch for tobacco cravings 4. Hypokalemia ? Corrected per protocol 5. DVT prophylaxis ? Low risk encourage early ambulation Medications at Discharge Home Medications venlafaxine 150 mg capsule,extended release 24 hr 225 mg PO QHS DEPRESSION 11/08/23 bupropion HCl 100 mg tablet,12 hr sustained-release 100 mg PO DAILY depression 09/03/24 nicotine 14 mg/24 hr daily transdermal patch 1 patch topical DAILY 09/03/24 ondansetron 4 mg disintegrating tablet 4 mg PO Q8H PRN PRN Nausea #10 tabs 09/03/24 buprenorphine 8 mg-naloxone 2 mg sublingual film 1 ea sublingual TID addiction 12/11/24 bupropion HCl 150 mg 24 hr tablet, extended release 150 mg PO QHS depression 12/11/24 Hospital Course Summary of Care Provided Minutes Spent on Discharge: 32 Physical Exam Narrative GENERAL: cooperative HEENT: Atraumatic; normocephalic EYES; Anicteric, Normal Conjunctiva NECK; supple, normal thyroid, RESPIRATORY: Diminished to auscultation CARDIOVASCULAR: Regular S1 S2, GI: soft, normoactive bowel sounds, : No Renal angle tenderness; EXTREMITIES: No edema, no clubbing, MUSCULOSKELETAL: no muscle wasting NEURO: Awake; no lateralizing signs. SKIN: No Rash PSYCH; Flat affect Weight / BMI Weight Weight: 80.3 kg Body Mass Index (BMI) 26.2 ABG / Lab / Microbiology Data 12/11/24 06:03 12/11/24 06:03 D/C Instructions Discharge Activity: Return to Normal Activity Call your doctor if you observe: Fever of 101 or Higher, Shortness of breath, Fainting spells and Chest pain DC O2, CPAP, BIPAP Needs Home O2 Discharge instructions: No Meaningful Use Info Meaningful Use Meaningful Use Diagnoses (Choose all that apply): None applicable Discharge Plan Admission Admit Date/Time: 12/10/24 23:50 Attending Provider: Jeremy Mckeon Primary Care Provider: Natasha Luciano NP Consulting Providers: Drake Montero Discharge Orders/Prescriptions Prescriptions: Continued bupropion HCl 100 mg tablet sustained-release 12 hr 100 mg PO DAILY nicotine 14 mg/24 hr patch 24 hour 1 patch topical DAILY ondansetron 4 mg tablet,disintegrating 4 mg PO Q8H PRN PRN (Reason: Nausea) Qty: 10 0RF venlafaxine 150 mg capsule,extended release 24hr 225 mg PO QHS buprenorphine-naloxone 8-2 mg film 1 ea sublingual TID bupropion HCl 150 mg tablet extended release 24 hr 150 mg PO QHS Referrals / Follow Up: Natasha Luciano SAFE DEPOSIT ATTENDANT [Other] - Within 1 Month Disposition Disposition (needs filled in before D/C Order can be placed): Inpatient Rehab Unit/Facility Charges/Coding Visit Charges Inpatient E&M: 35814 Disch Hosp >30min
--- NOTE | 2024-12-12 14:27 | CHAPLAIN ---
Type of Pastoral Visit ___ Initial Visit ___ Follow-up Visit ___ On-call Visit ___ General Patient Visit ___ Spiritual Assessment ___ Family Conference ___ Bereavement ___ Rapid Response ___ Code Blue ___ Other (describe below) Pastoral Care Referral From ___ Patient ___ Family ___ Nurse ___ Physician ___ Punch Molder ___ Labor Relations Analyst ___ Other (describe below) Sacrament/Intervention ___ Active listening ___ Anointing ___ Rastafari ___ Bereavement ___ Communion ___ Savi exploration ___ ___ Life review ___ Prayer ___ Reconciliation ___ Sacrament of Sick ___ Supportive presence ___ Wedding ___ Other (describe below) Pastoral Comments patient was discharged and leaving the building when he approached this it programmer analyst due to recognition of the same from the previous admission; pt stated that he was going to a rehab facility and was being released earlier than normal due to doctor's plan; pt was eager to communicate with this it programmer analyst and expressed his desire to beat this addiction that he has been dealing with for a long time; pt states that he has been employed and has good plans and hopes; pt sought encouragement from this it programmer analyst who affirmed his desire, plan, and admission to facility; pt welcomes spiritual care support and a word of prayer before he left the building
== END 2024-12-12 12:16 | disposition home or self-care (01) | DRG 897 ==
PROVIDERS: Admitting Provider Family Medicine; Visit Provider Internal Medicine
DX: F11.23 Opioid dependence with withdrawal (principal); E87.6 Hypokalemia; F41.8 Other specified anxiety disorders; F17.220 Nicotine dependence, chewing tobacco, uncomplicated; Z79.899 Other long term (current) drug therapy; J45.909 Unspecified asthma, uncomplicated
CPT/HCPCS: 36415; 80053; 85025; 99221; 99406; G0378; G0379